=== PATIENT | male | born 1965 | race Hispanic/Latino ===

== ENCOUNTER 2019-05-02 20:40 | Observation (INO) | payer SELFPAY ==
[2019-05-02 21:24] LABS: Absolute Lymphocytes (CBC) 1.3 K/uL (0.7-4.9); Basophils % 0.9 % (0-1.3); Hematocrit 35.5 % (39.6-49.0); Lymphocytes % 16.4 % (15.3-44.8); MPV 8.7 fL (7.6-11.3); RBC Red Blood Cell Count 4.08 M/uL (4.33-5.43)
[2019-05-02 21:30] LABS: Protime INR 0.97
[2019-05-02 21:46] LABS: ALT/SGPT 22 U/L (12-78); AST/SGOT 13 U/L (15-37); Albumin 3.1 g/dL (3.4-5.0); Alkaline Phosphatase 101 U/L (45-117); BUN Blood Urea Nitrogen 24 mg/dL (7-18); Bicarbonate 27 mmol/L (21-32); Bilirubin Direct < 0.1 mg/dL (0-0.2); Bilirubin Total 0.2 mg/dL (0.2-1.0); Glucose Level 315 mg/dL (74-106); Magnesium 2.2 mg/dL (1.8-2.4); NT PRO-BNP 369 pg/mL (<125); Protein, Total 7.1 g/dL (6.4-8.2); Sodium Level 141 mmol/L (136-145); Troponin (Emerg Dept Use Only) < 0.02 ng/mL (0.0-0.045)
[2019-05-02] MEDS ORDERED: HYDRALAZINE HCL 20 MG/ML VIAL ONE (23:25)
[2019-05-03] MEDS ORDERED: HYDRALAZINE HCL 20 MG/ML VIAL ONE (00:14)
[2019-05-03 02:05] LABS: Troponin (Emerg Dept Use Only) < 0.02 ng/mL (0.0-0.045)
[2019-05-03] MEDS ORDERED: ACETAMINOPHEN 500 MG TAB PO PRN (03:38)
[2019-05-03] MEDS ORDERED: ALPRAZOLAM 0.25 MG TABLET PO PRN (03:38)
[2019-05-03] MEDS ORDERED: MORPHINE 4 MG/ML SYR IV PRN (03:38)
[2019-05-03 04:16] VITALS: BMI 43.0
[2019-05-03 04:47] LABS: HDL Cholesterol 65 mg/dL (40-60); LDL Cholesterol, Calculated 53 (<130)
[2019-05-03] MEDS: METOPROLOL TAR 50 MG TAB PO SCH ×2 (04:54→21:00)
[2019-05-03] MEDS ORDERED: METOPROLOL TAR 25 MG TAB ONE ×2 (04:56→21:25)
--- NOTE | 2019-05-03 05:45 | EDPHYS ---
Physician Documentation [facility] Name: Wild Koenig Age: 54 yrs Sex: Male : 1965 Arrival Date: 05/02/2019 Time: 20:48 Bed 19 Private MD: ED Physician Gautam Mukherjee HPI: 05/03 03:20 This 54 yrs old Male presents to ER via EMS with complaints of High Blood tw4 Pressure. 03:33 The patient has elevated blood pressure and discovered this at home, with a home tw4 device. Onset: The symptoms/episode began/occurred yesterday. Associated signs and symptoms: Pertinent positives: chest pain, dizziness, LOWER EXTREMITY SWELLING. The patient has not experienced similar symptoms in the past. Historical: - Allergies: 05/02 20:53 No Known Allergies; wh - Home Meds: 20:53 Glipizide Oral [Active]; gabapentin Oral [Active]; Hydroxyzine Oral [Active]; wh lisinopril Oral [Active]; Metformin Oral [Active]; Aspirin Oral [Active]; Hydrocodone-Acetaminophen Oral [Active]; - PMHx: 20:53 chronic back pain; Depression; Diabetes - NIDDM; Hypertension; Anxiety; wh - PSHx: 20:53 None; wh - Immunization history:: Adult Immunizations not up to date. - Coronavirus screen:: The patient has NOT traveled to [place], [place], or [place] in the past 14 days. - Social history:: Smoking status: Patient/guardian denies using. - Ebola Screening: : Patient negative for fever greater than or equal to 101.5 degrees Fahrenheit, and additional compatible Ebola Virus Disease symptoms Patient denies exposure to infectious person. ROS: 05/03 03:33 Constitutional: Negative for fever, chills, and weight loss, Respiratory: Negative for tw4 shortness of breath, cough, wheezing, and pleuritic chest pain, Abdomen/GI: Negative for abdominal pain, nausea, vomiting, diarrhea, and constipation, Back: Negative for injury and pain. Skin: Negative for injury, rash, and discoloration, Neuro: Negative for headache, weakness, numbness, tingling, and seizure. Cardiovascular: Positive for chest pain, Negative for edema, orthopnea, palpitations, paroxysmal nocturnal dyspnea. MS/extremity: Positive for swelling, Negative for abrasion, bite, contusion, decreased range of motion, deformity, ecchymosis, erythema, laceration, pain, paresthesias, puncture, rash. Exam: 03:33 Constitutional: This is a well developed, well nourished patient who is awake, alert, tw4 and in no acute distress. Head/Face: Normocephalic, atraumatic. Chest/axilla: Normal chest wall appearance and motion. Nontender with no deformity. No lesions are appreciated. Cardiovascular: Regular rate and rhythm with a normal S1 and S2. No gallops, murmurs, or rubs. Normal PMI, no JVD. No pulse deficits. Respiratory: Lungs have equal breath sounds bilaterally, clear to auscultation and percussion. No rales, rhonchi or wheezes noted. No increased work of breathing, no retractions or nasal flaring. Abdomen/GI: Soft, non-tender, with normal bowel sounds. No distension or tympany. No guarding or rebound. No evidence of tenderness throughout. Back: No spinal tenderness. No costovertebral tenderness. Full range of motion. Neuro: Awake and alert, GCS 15, oriented to person, place, time, and situation. Cranial nerves II-XII grossly intact. Motor strength 5/5 in all extremities. Sensory grossly intact. Cerebellar exam normal. Normal gait. Psych: Awake, alert, with orientation to person, place and time. Behavior, mood, and affect are within normal limits. 03:33 Musculoskeletal/extremity: Extremities: noted in the lateral aspect of left calf, left lateral ankle and lateral aspect of left foot: swelling, noted in the lateral aspect of right calf, right ankle and lateral aspect of right foot: swelling. Vital Signs: 05/02 20:54 BP 176 / 69; Pulse 80; Resp 18; Temp 98; Pulse Ox 97% ; Weight 136.08 kg; Height 5 ft. wh 10 in. (177.80 cm); 22:45 BP 188 / 87; Pulse 75; Resp 18; Pulse Ox 99% on R/A; wh 23:53 BP 191 / 77; Pulse 77; Resp 18; Pulse Ox 98% on R/A; wh 05/03 00:23 BP 165 / 80; wh 01:31 BP 129 / 52; Pulse 96; Resp 18; Pulse Ox 98% on R/A; wh 03:00 BP 174 / 64; Pulse 93; Resp 16; Temp 97.8; Pulse Ox 100% on R/A; 05/02 20:54 Body Mass Index 43.05 (136.08 kg, 177.80 cm) MDM: 02:05 Patient medically screened. tw4 03:35 Differential diagnosis: hypertensive crisis, Malignant HTN. Data reviewed: vital signs, tw4 nurses notes. Data reviewed: lab test result(s), cardiac enzymes, CBC, electrolytes, EKG, radiologic studies, plain films. Data interpreted: Pulse oximetry: Interpretation: normal. Test interpretation: by ED physician or midlevel provider: ECG, plain radiologic studies. Counseling: I had a detailed discussion with the patient and/or guardian regarding: the historical points, exam findings, and any diagnostic results supporting the discharge/admit diagnosis, lab results, radiology results. Physician consultation: Mis Gunderson MD regarding admission, to the telemetry unit. patient's condition, and will see patient in inpatient room. 05/02 20:54 Order name: Basic Metabolic Panel; Complete Time: 22:29 05/03 02:41 Interpretation: Normal except: CL 110; CRE 1.75; GFR 41; BUN 24; GLUC 315; CA 8.3. 05/02 20:54 Order name: CBC with Diff; Complete Time: 22:29 05/02 22:29 Interpretation: Normal except: RBC 4.08; HGB 11.6; HCT 35.5. 05/02 20:54 Order name: LFT's; Complete Time: 22:29 05/02 22:29 Interpretation: Normal except: AST 13; ALB 3.1; GLOB 4.0; A/G 0.8. 05/02 20:54 Order name: Magnesium; Complete Time: 22:29 05/02 22:29 Interpretation: Within normal limits: MG 2.2. 05/02 20:54 Order name: NT PRO-BNP; Complete Time: 22:29 05/02 22:29 Interpretation: Normal except: NT PRO-BNP 369. 05/02 20:54 Order name: PT-INR; Complete Time: 22:29 05/02 22:31 Interpretation: Within normal limits: PT 11.5. 05/02 20:54 Order name: Troponin (emerg Dept Use Only); Complete Time: 22:29 tw4 05/03 00:59 Order name: Troponin (emerg Dept Use Only) tw4 05/03 05:35 Order name: Lipid Profile EDAK 05/03 05:38 Order name: Basic Metabolic Panel EDAK 05/03 05:38 Order name: Basic Metabolic Panel EDAK 05/03 05:38 Order name: CBC with Automated Diff EDMS 05/03 05:38 Order name: CBC with Automated Diff EDMS 05/03 05:38 Order name: Lipid Profile EDAK 05/02 20:54 Order name: XRAY Chest (1 view) tw4 05/02 20:54 Order name: EKG; Complete Time: 20:55 05/02 20:54 Order name: Cardiac monitoring; Complete Time: 21:10 05/02 20:54 Order name: EKG - Nurse/Tech; Complete Time: 21:10 05/03 05:37 Order name: CONS Physician Consult EDAK 05/03 05:38 Order name: Heart Healthy EDAK 05/03 05:38 Order name: Echo with Doppler EDAK 05/03 05:38 Order name: Lipid Profile EDAK 05/03 05:38 Order name: Troponin I EDAK 05/03 05:38 Order name: Troponin I EDAK 05/03 05:38 Order name: Troponin I EDAK 05/03 13:41 Order name: NM EDAK 05/03 21:25 Order name: Glucose, Ancillary Testing EDAK 05/03 21:34 Order name: Basic Metabolic Panel EDAK 05/02 20:54 Order name: IV Saline Lock; Complete Time: 21:10 05/02 20:54 Order name: Labs collected and sent; Complete Time: 21:10 05/02 20:54 Order name: O2 Per Protocol; Complete Time: 21:10 05/02 20:54 Order name: O2 Sat Monitoring; Complete Time: 21:10 EC:22 Rate is 58 beats/min. Rhythm is regular. QRS [place] is Normal. [place] interval is normal. QRS tw4 interval is normal. QT interval is normal. No Q waves. No ST changes noted. Clinical impression: Normal ECG. Interpreted by me. Reviewed by me. Administered Medications: 05/02 23:24 Drug: hydrALAZINE 10 mg Route: IV; Rate: bolus; Site: right antecubital; 05/03 03:49 Follow up: Response: No adverse reaction; IV Status: Completed infusion 00:05 Drug: hydrALAZINE 10 mg Route: IV; Rate: calculated rate; Site: right antecubital; 03:49 Follow up: Response: No adverse reaction; Blood pressure is lowered; IV Status: Completed infusion Disposition: 05/03/19 02:05 Hospitalization ordered by Mis Gunderson for Inpatient Admission. Preliminary diagnosis are Angina pectoris, unspecified, Edema, unspecified. - Bed requested for [facility] ER HOLD. - Status is Inpatient Admission. - Condition is Stable. - Problem is new. - Symptoms are unchanged. UTI on Admission? No Signatures: Dispatcher [employer] [facility] Juana Colin RN RN dw Habalo, Winsy Gautam Mukherjee MD MD tw4 Corrections: (The following items were deleted from the chart) 02:32 05/02 22:29 CL 110; CRE 1.75; GFR 41; BUN 24; GLUC 315. tw4 tw4 05/03 03:55 03:35 Rate is 80 beats/min. Rhythm is regular. QRS [place]gins is Normal. [place] interval is tw4 normal. QRS interval is normal. QT interval is normal. No Q waves. T waves are Normal. No ST changes noted. Clinical impression: Normal ECG. Interpreted by me. Reviewed by me. tw4 03:58 02:05 Hospitalization Ordered by Mis Gunderson MD for Inpatient Admission. Preliminary diagnosis is Angina pectoris, unspecified; Edema, unspecified. Bed requested for Telemetry/MedSurg (Inpatient). Status is Inpatient Admission. Condition is Stable. Problem is new. Symptoms are unchanged. UTI on Admission? No. tw4 04:22 03:54 Rate is 100 beats/min. Rhythm is regular. QRS [place]gins is Normal. [place] interval is tw4 normal. QRS interval is normal. QT interval is normal. No Q waves. T waves are Normal. No ST changes noted. Clinical impression: NSR w/ Non-specific ST/T Changes. Interpreted by me. Reviewed by me. tw4 22:36 03:58 05/03/2019 02:05 Hospitalization Ordered by Mis Gunderson MD for Inpatient Admission. Preliminary diagnosis is Angina pectoris, unspecified; Edema, unspecified. Bed requested for [facility] ER HOLD. Status is Inpatient Admission. Condition is Stable. Problem is new. Symptoms are unchanged. UTI on Admission? No. dw
--- NOTE | 2019-05-03 05:45 | ER ---
Nurse's Notes [facility] Name: Wild Koenig Age: 54 yrs Sex: Male : 1965 Arrival Date: 05/02/2019 Time: 20:48 Bed 19 Private MD: Diagnosis: Angina pectoris, unspecified;Edema, unspecified Presentation: 05/02 20:49 Presenting complaint: EMS states: Pt C/O high blood pressure at home 160/90 and wh 166/105. Pt also C/O swelling on BLE for 10 days now, Pt states he is taking OTC Water pills but is not working. Pt also C/O fussiness on left eye and headache. Transition of care: patient was not received from another setting of care. Onset of symptoms was May 02, 2019. Risk Assessment: Do you want to hurt yourself or someone else? Patient reports no desire to harm self or others. Initial Sepsis Screen: Does the patient meet any 2 criteria? No. Patient's initial sepsis screen is negative. Does the patient have a suspected source of infection? No. Patient's initial sepsis screen is negative. Care prior to arrival: None. 20:49 Method Of Arrival: EMS: [facility] 20:49 Acuity: MYNOR 3 Historical: - Allergies: 20:53 No Known Allergies; - Home Meds: 20:53 Glipizide Oral [Active]; gabapentin Oral [Active]; Hydroxyzine Oral [Active]; wh lisinopril Oral [Active]; Metformin Oral [Active]; Aspirin Oral [Active]; Hydrocodone-Acetaminophen Oral [Active]; - PMHx: 20:53 chronic back pain; Depression; Diabetes - NIDDM; Hypertension; Anxiety; wh - PSHx: 20:53 None; - Immunization history:: Adult Immunizations not up to date. - Coronavirus screen:: The patient has NOT traveled to [place], [place], or [place] in the past 14 days. - Social history:: Smoking status: Patient/guardian denies using. - Ebola Screening: : Patient negative for fever greater than or equal to 101.5 degrees Fahrenheit, and additional compatible Ebola Virus Disease symptoms Patient denies exposure to infectious person. Screenin:54 Abuse screen: Denies threats or abuse. Denies injuries from another. Nutritional screening: No deficits noted. Tuberculosis screening: No symptoms or risk factors identified. Fall Risk None identified. Assessment: 21:24 General: Appears in no apparent distress. Behavior is calm, cooperative, appropriate wh for age. Pain: Denies pain. Neuro: Level of Consciousness is awake, alert, obeys commands, Oriented to person, place, time, situation, Appropriate for age. Cardiovascular: Heart tones S1 S2 Rhythm is regular. Cardiovascular: Edema is 2+ to left ankle and right ankle. Respiratory: Airway is patent Respiratory effort is even, unlabored, Respiratory pattern is regular, symmetrical. GI: Abdomen is flat, non-distended, Abd is soft and non tender X 4 quads. : No signs and/or symptoms were reported regarding the genitourinary system. EENT: No signs and/or symptoms were reported regarding the EENT system. Derm: Skin is intact, is healthy with good turgor, Skin is pink, warm \T\ dry. normal. Musculoskeletal: Circulation, motion, and sensation intact. 22:49 Reassessment: Patient appears in no apparent distress at this time. No changes from previously documented assessment. Patient and/or family updated on plan of care and expected duration. Pain level reassessed. Patient is alert, oriented x 3, equal unlabored respirations, skin warm/dry/pink. 23:53 Reassessment: Patient appears in no apparent distress at this time. No changes from previously documented assessment. Patient and/or family updated on plan of care and expected duration. Pain level reassessed. Patient is alert, oriented x 3, equal unlabored respirations, skin warm/dry/pink. 05/03 01:00 Reassessment: Patient appears in no apparent distress at this time. No changes from previously documented assessment. Patient and/or family updated on plan of care and expected duration. Pain level reassessed. Patient is alert, oriented x 3, equal unlabored respirations, skin warm/dry/pink. Pt C/O chest pain, EKG was done with NSR. Informed MD, 2nd set of Trops drawn. 02:30 Reassessment: Patient appears in no apparent distress at this time. No changes from previously documented assessment. Patient and/or family updated on plan of care and expected duration. Pain level reassessed. Patient is alert, oriented x 3, equal unlabored respirations, skin warm/dry/pink. 04:00 Reassessment: Patient appears in no apparent distress at this time. No changes from previously documented assessment. Patient and/or family updated on plan of care and expected duration. Pain level reassessed. Patient is alert, oriented x 3, equal unlabored respirations, skin warm/dry/pink. Vital Signs: 05/02 20:54 BP 176 / 69; Pulse 80; Resp 18; Temp 98; Pulse Ox 97% ; Weight 136.08 kg; Height 5 ft. 10 in. (177.80 cm); 22:45 BP 188 / 87; Pulse 75; Resp 18; Pulse Ox 99% on R/A; 23:53 BP 191 / 77; Pulse 77; Resp 18; Pulse Ox 98% on R/A; 05/03 00:23 BP 165 / 80; 01:31 BP 129 / 52; Pulse 96; Resp 18; Pulse Ox 98% on R/A; 03:00 BP 174 / 64; Pulse 93; Resp 16; Temp 97.8; Pulse Ox 100% on R/A; 05/02 20:54 Body Mass Index 43.05 (136.08 kg, 177.80 cm) ED Course: 05/02 20:48 Patient arrived in ED. 20:50 Griffin Gutierrez PA is PHCP. 8 20:50 Gautam Mukherjee MD is Attending Physician. [facility] 20:51 Triage completed. 20:54 Patient has correct armband on for positive identification. Bed in low position. Call light in reach. Side rails up X 1. 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 Pulse ox on. NIBP on. 20:55 Vidhi Brown is Primary Nurse. 20:55 Arm band placed on right wrist. 21:10 Inserted saline lock: 20 gauge in right antecubital area, using aseptic technique. Blood collected. 21:18 XRAY Chest (1 view) In Process Unspecified. EDMS 22:16 EKG done, by ED staff, reviewed by Gautam Mukherjee MD. ds4 05/03 02:04 Mis Gunderson MD is Hospitalizing Provider. tw4 04:00 No provider procedures requiring assistance completed. Patient admitted, IV remains in place. Administered Medications: 05/02 23:24 Drug: hydrALAZINE 10 mg Route: IV; Rate: bolus; Site: right antecubital; 05/03 03:49 Follow up: Response: No adverse reaction; IV Status: Completed infusion 00:05 Drug: hydrALAZINE 10 mg Route: IV; Rate: calculated rate; Site: right antecubital; 03:49 Follow up: Response: No adverse reaction; Blood pressure is lowered; IV Status: Completed infusion Outcome: 02:05 Decision to Hospitalize by Provider. tw4 04:00 Admitted to ER Hold. Please see [facility] for further documentation. 04:00 Condition: stable 04:00 Instructed on the need for admit. 22:36 Patient left the ED. Signatures: Dispatcher [employer] EDMS Griffin Gutierrez PA PA [id number] Michael Quarles ds4 Vidhi Brown Gautam Mukherjee MD MD tw4 Corrections: (The following items were deleted from the chart) 04:36 03:00 BP 174 / 64; Pulse 93bpm; Resp 16bpm; Pulse Ox 100%; Temp 97.8F; [facility]
--- NOTE | 2019-05-03 06:46 | EKG ---
Test Date: 2019-05-02 Test Time: 21:12:33 Toeing Stockings: SKYLER MEASUREMENT RESULTS: Intervals: Rate: 80 RI: 134 QRSD: 86 QT: 378 QTc: 435 [place]: P: 48 RI: 134 QRS: -29 T: 20 INTERPRETIVE STATEMENTS: Normal sinus rhythm Normal ECG Compared to ECG 12/11/1998 09:35:00 No significant changes Electronically Signed On 05-03-19 06:45:20 SHOP REPAIRER by Chan Aragon
[2019-05-03] MEDS ORDERED: INFLUENZA VACCINE (for 3y+) 0.5 ML DOSE IMVAC ONE ×2 (08:00→08:58)
[2019-05-03] MEDS ORDERED: PNEUMOCOCCAL VACCINE 0.5 ML IMVAC ONE ×2 (08:00→08:58)
[2019-05-03] MEDS ORDERED: REGADENOSON 0.4 MG/5 ML SYR IV ONE (08:17)
--- NOTE | 2019-05-03 08:21 | RAD REPORT ---
EXAM DESCRIPTION: Garrick Single View05/02/2019 9:18 pm CLINICAL HISTORY: cough COMPARISON: none FINDINGS: The lungs appear clear of acute infiltrate. The heart is borderline enlarged IMPRESSION: No acute abnormalities displayed
[2019-05-03] MEDS ORDERED: ASPIRIN EC 81 MG TAB PO ONE (08:58)
[2019-05-03] MEDS ORDERED: ENOXAPARIN 40 MG/0.4 ML SQ ONE (08:58)
[2019-05-03] MEDS ORDERED: ENOXAPARIN 40 MG/0.4 ML SQ SCH (09:00)
[2019-05-03] MEDS ORDERED: ASPIRIN EC 81 MG TAB PO SCH (09:00)
--- NOTE | 2019-05-03 11:17 | EKG ---
Test Date: 2019-05-03 Test Time: 00:38:44 Corrugator Operator Helper: SKYLER MEASUREMENT RESULTS: Intervals: Rate: 100 CT: 122 QRSD: 86 QT: 356 QTc: 459 [place]: P: 49 CT: 122 QRS: -42 T: 38 INTERPRETIVE STATEMENTS: Normal sinus rhythm Left axis deviation Nonspecific ST abnormality Abnormal ECG Compared to ECG 05/02/2019 21:12:33 Left-axis deviation now present ST (T wave) deviation now present Electronically Signed On 05-03-19 11:16:06 RESPITE WORKER by Efrain Louis
--- NOTE | 2019-05-03 13:29 | ECHO ---
HEIGHT: 5 ft 10 in WEIGHT: 300 lb 0 oz DATE OF STUDY: 05/03/[address]: Mis Gunderson MD 2-DIMENSIONAL: YES M.MODE: YES DOPPLER: YES COLOR FLOW: YES TDS: NO PORTABLE: NO DEFINITY: NO BUBBLE STUDY: NO DIAGNOSIS: CHEST PAIN CARDIAC HISTORY: CATHERIZATION: NO SURGERY: NO PROSTHETIC VALVE: NO PACEMAKER: NO MEASUREMENTS (cm) DIASTOLIC (NORMALS) SYSTOLIC (NORMALS) IVSd 1.4 (0.6-1.2) LA Diam 4.0 (1.9-4.0) LVEF 71% LVIDd 5.1 (3.5-5.7) LVIDs 3.0 (2.0-3.5) %FS 41% LVPWd 1.5 (0.6-1.2) Ao Diam 2.7 (2.0-3.7) 2 DIMENSIONAL ASSESSMENT: RIGHT ATRIUM: NORMAL LEFT ATRIUM: NORMAL RIGHT VENTRICLE: NORMAL LEFT VENTRICLE: LEFT VENTRICULAR HYPERTROPHY TRICUSPID VALVE: NORMAL MITRAL VALVE: NORMAL PULMONIC VALVE: NORMAL AORTIC VALVE: NORMAL PERICARDIAL EFFUSION: NONE AORTIC ROOT: NORMAL LEFT VENTRICULAR WALL MOTION: NORMAL DOPPLER/COLOR FLOW: NORMAL COMMENTS: LEFT VENTRICULAR HYPERTROPHY, CONCENTRIC. NORMAL LEFT VENTRICULAR EJECTION FRACTION. NO WALL MOTION ABNORMALITY. NO EFFUSION. TECHNOLOGIST: Sj SALINAS
--- NOTE | 2019-05-03 13:36 | RAD REPORT ---
EXAM DESCRIPTION: NM - Rest Stress Cardiac Imaging - 05/03/2019 1:21 pm CLINICAL HISTORY: Chest pain. COMPARISON: None. TECHNIQUE: The patient was administered approximately 10mCi of Tc 99m Sestamibi prior to resting SPE CT imaging of the heart. The patient was then administered approximately 30 mCi of Tc 99m Sestamibi f ollowing exercise or pharmacologic stress. Multiplanar SPECT images were reviewed. FINDINGS: There is uniformity of radiotracer uptake involving the entire left ventricular myocardiu m on rest and stress images. The left ventricular ejection fraction equals 51% IMPRESSION: Negative for a myocardial perfusion defect
--- NOTE | 2019-05-03 14:38 | CON ---
Admitted on 05/03/[address] Gunderson for chest pain. History Of Present Illness: Mr. Koenig is 54, has a history of anxiety, hypertension, diabetes, dep ression, morbid obesity, came in with left-sided chest pain, nonexertional, nonradiating. No nausea, vomiting, diaphoresis, PND, orthopnea, pedal edema, palpitation, or syncope. Pain was described as sharp, has been going on for about 2 days continuously. He has been under severe stress with elevate d blood pressure into the 170s and 200s according to him. Allergies: NONE. Review of Systems: Negative. Social History: Negative. Family History: Negative. Medications: At home include aspirin, metformin, glipizide, and lisinopril. Physical Examination: Vital Signs: His pressure was 170/72. He weighed 300 pounds. HEENT: Negative. Neck: Supple with no bruit. Chest: Clear. Cardiac: Revealed a regular rhythm and rate. No murmurs, gallops, or rubs. Abdomen: Obese, but benign. Extremities: Revealed no clubbing, cyanosis, or edema. Diagnostic Data: EKG was normal. BNP was 369. Creatinine was 1.75, glucose was 315. Impression And Plan: Atypical chest pain in a patient with multiple cardiac risk factors including h ypertension, diabetes. He has renal insufficiency as per blood pressure that is not controlled. I w ould increase his lisinopril dose. Consider adding a beta-iram. I think he needs to have an echo cardiogram and a stress test today. Both of those are pending. We will see what these show before m aking any final decisions. NICOLE/DARÍOL Voice ID: [id number] Report ID: [id number]
--- NOTE | 2019-05-03 16:41 | P.HP ---
Certification for Inpatient Patient admitted to: Observation With expected LOS: <2 Midnights Patient will require the following post-hospital care: None Practitioner: I am a practitioner with admitting privileges, knowledge of patient current condition, hospital course, and medical plan of care. Services: Services provided to patient in accordance with Admission requirements found in Title 42 Section 412.3 of the Code of Federal Regulations Patient History Date of Service: 05/03/19 Reason for admission: CHEST PAIN RULE OUT ACUTE CORONARY SYNDROME History of Present Illness: PATIENT IS A 54-YEAR-OLD GENTLEMAN WHO COMES TO THE HOSPITAL WITH CHEST PAIN AND LOWER EXTREMITY EDEMA. THIS HAS BEEN GOING ON FOR THE LAST FEW WEEKS. HE HAS SOME VARICOSE VEINS BUT HE WAS WORRIED THAT THE SWELLING WAS GETTING WORSE. ON EXAMINATION HE DOES NOT HAVE A LOT OF EDEMA BUT HE HAS BEEN LAYING UP IN THE EMERGENCY ROOM BED THROUGHOUT THE DAY. HE SAID IT DOES SWELL OUT MORE WHEN HE AMBULATES. HE HAS NOT HAD ANY CARDIAC WORKUP DONE IN QUITE A WHILE. HE GOES TO THE [facility] FOR MOST OF HIS CARE. HIS BLOOD PRESSURE HAS BEEN ELEVATED AND THE LOWER EXTREMITY EDEMA HAS ALSO BEEN BOTHERING HIM. HE DECIDED TO COME INTO THE EMERGENCY ROOM FOR FURTHER EVALUATION. Allergies No Known Allergies Allergy (Verified 05/03/19 04:58) Home Medications: Losartan Potassium [Cozaar] 25 mg PO DAILY #30 tablet 05/03/19 Metoprolol Tartrate [Lopressor*] 50 mg PO BID #60 tab 05/03/19 - Past Medical/Surgical History Has patient received pneumonia vaccine in the past: No Diabetic: Yes -: Chronic Back Pain -: Hypertension -: DM -: Depression Anxiety - Social History Smoking Status: Never smoker Place of Residence: Home Review of Systems 10-point ROS is otherwise unremarkable Physical Examination - Vital Signs Temperature: 98 F Blood Pressure: 174/63 Pulse: 88 Respirations: 19 Pulse Ox (%): 100 - Physical Exam General: Alert, In no apparent distress, Oriented x3 HEENT: Atraumatic, PERRLA, Mucous membr. moist/pink, EOMI, Sclerae nonicteric Neck: Supple, 2+ carotid pulse no bruit, No LAD, Without JVD or thyroid abnormality Respiratory: Clear to auscultation bilaterally, Normal air movement Cardiovascular: Regular rate/rhythm, Normal S1 S2, No murmurs Gastrointestinal: Normal bowel sounds, Soft and benign, Non-distended, No tenderness Musculoskeletal: No clubbing, No swelling, No tenderness Integumentary: No rashes Neurological: Normal gait, Normal speech, Normal strength at 5/5 x4 extr, Normal tone, Sensation intact, Cranial nerves 3-12 intact, Normal affect Lymphatics: No axilla or inguinal lymphadenopathy - Studies Laboratory Data (last 24 hrs) 05/03/19 03:38: Triglycerides Cancelled, Cholesterol Cancelled, HDL Cholesterol Cancelled, Cholesterol/HDL Ratio Cancelled 05/03/19 01:12: Triglycerides 142, Cholesterol 146, HDL Cholesterol 65 H, Cholesterol/HDL Ratio 2.25 05/02/19 21:10: PT 11.5, INR 0.97 05/02/19 21:10: WBC 7.7, Hgb 11.6 L, Hct 35.5 L, Plt Count 251 05/02/19 21:10: Sodium 141, Potassium 5.0, BUN 24 H, Creatinine 1.75 H, Glucose 315 H, Magnesium 2.2, Total Bilirubin 0.2, AST 13 L, ALT 22, Alkaline Phosphatase 101 Assessment & Plan - Problems (Diagnosis) (1) Chest pain, rule out acute myocardial infarction Current Visit: Yes Status: Acute (2) Hypertension, malignant Current Visit: Yes Status: Acute (3) Hypoalbuminemia Current Visit: Yes Status: Acute (4) Chronic kidney disease Current Visit: Yes Status: Acute - Plan 1. SERIAL TROPONINS AND EKG 2. CARDIOLOGY CONSULTATION 3. ECHOCARDIOGRAM AND INPATIENT STRESS TEST(PENDING CARDIOLOGY EVALUATION) 4. ANTI-PLATELET THERAPY, ANTI COAGULATION, BETA-NICOLASA, STATIN, AND O2 NEEDED 5. IV MORPHINE FOR PAIN 6. OUTPATIENT NEPHROLOGY CONSULTATION Discharge Plan: Home Plan to discharge in: 24 Hours - Advance Directives Does patient have a Living Will: No Does patient have a Durable POA for Healthcare: No - Code Status/Comfort Care Code Status Assessed: Yes Code Status: Full Code Critical Care: No Time Spent Managing PTS Care (In Minutes): 45
[2019-05-03] MEDS ORDERED: GLUCAGON 1 MG/VIAL IM PRN ×2 (18:09)
[2019-05-03] MEDS ORDERED: D50W 25 GM/50 ML SYRINGE/VIAL IV PRN ×2 (18:09)
--- NOTE | 2019-05-03 18:09 | P.PN ---
Date of Service: 05/03/19 Patient seen and examined. He has bilateral lower extremities edema. Echocardiogram result reviewed and reports normal EF. No valvular abnormalities. Nuclear stress test: Negative for ischemia. I suspect patient lower extremity edema is related to obstructive sleep apnea. He reports snoring loudly in bed, and daytime dosing. He will need sleep study as an outpatient. Start oral Lasix. Noted elevated serum creatinine. Monitor BMP on the lasix. Increase Lantus insulin to 25 units b.i.d. Hold metformin given increase in serum creatinine. Possible discharge in a.m.
[2019-05-03] MEDS ORDERED: INSULIN -REGULAR HUMAN 50 UNIT/0.5 ML ML SQ SCH (21:00)
[2019-05-03] MEDS ORDERED: INSULIN GLARGINE 100 UNITS/ML SQ SCH (21:00)
[2019-05-03 21:15] VITALS: BP 162/85; TEMP 98.2
[2019-05-03 21:28] LABS: Potassium 5.2 mmol/L (3.5-5.1)
[2019-05-03 23:37] VITALS: O2SAT 100
[2019-05-04] MEDS ORDERED: FUROSEMIDE 40 MG TABLET PO SCH (09:00)
[2019-05-04] MEDS ORDERED: AMLODIPINE 5 MG TAB PO SCH (09:00)
--- NOTE | 2019-05-04 13:10 | P.DS ---
Discharge Date: 05/03/19 Disposition: ROUTINE DISCHARGE Discharge Condition: GOOD Reason for Admission: CHEST PAIN RULE OUT ACUTE CORONARY SYNDROME - Problems (1) Chest pain, rule out acute myocardial infarction Status: Acute (2) Hypertension, malignant Status: Acute (3) Hypoalbuminemia Status: Acute (4) Chronic kidney disease Status: Acute Brief History of Present Illness: PATIENT IS A 54-YEAR-OLD GENTLEMAN WHO COMES TO THE HOSPITAL WITH CHEST PAIN AND LOWER EXTREMITY EDEMA. THIS HAS BEEN GOING ON FOR THE LAST FEW WEEKS. HE HAS SOME VARICOSE VEINS BUT HE WAS WORRIED THAT THE SWELLING WAS GETTING WORSE. ON EXAMINATION HE DOES NOT HAVE A LOT OF EDEMA BUT HE HAS BEEN LAYING UP IN THE EMERGENCY ROOM BED THROUGHOUT THE DAY. HE SAID IT DOES SWELL OUT MORE WHEN HE AMBULATES. HE HAS NOT HAD ANY CARDIAC WORKUP DONE IN QUITE A WHILE. HE GOES TO THE [facility] FOR MOST OF HIS CARE. HIS BLOOD PRESSURE HAS BEEN ELEVATED AND THE LOWER EXTREMITY EDEMA HAS ALSO BEEN BOTHERING HIM. HE DECIDED TO COME INTO THE EMERGENCY ROOM FOR FURTHER EVALUATION. Hospital Course: PATIENT'S STRESS TEST WAS NEGATIVE. PATIENT'S RENAL FUNCTION IS STABLE. HIS POTASSIUM WAS SLIGHTLY ELEVATED AND WE THUS ASKED HIM TO AVOID FOODS WITH POTASSIUM AND HOLD OFF ON HIS LOSARTAN. HE WILL FOLLOW UP WITH HIS PCP AND NEPHROLOGY IN 1-2 WEEKS AND REPEAT LABS IN 1 WEEK. RETURN TO THE ER FOR SYMPTOMS WORSEN. I GAVE HIM MY INFORMATION TO CONTACT ME IF HE HAS ANY QUESTIONS. Vital Signs/Physical Exam: Temp Pulse Resp BP Pulse Ox 98.2 F 71 18 162/85 H 98 05/03/19 20:00 05/03/19 21:00 05/03/19 20:00 05/03/19 21:00 05/03/19 20:00 General: Alert, In no apparent distress, Oriented x3 Laboratory Data at Discharge: WBC 7.7 K/uL (4.3-10.9) 05/02/19 21:10 Hgb 11.6 g/dL (13.6-17.9) L 05/02/19 21:10 Hct 35.5 % (39.6-49.0) L 05/02/19 21:10 Plt Count 251 K/uL (152-406) 05/02/19 21:10 PT 11.5 SECONDS (9.5-12.5) 05/02/19 21:10 INR 0.97 05/02/19 21:10 Sodium 140 mmol/L (136-145) 05/03/19 21:08 Potassium 5.2 mmol/L (3.5-5.1) H 05/03/19 21:08 BUN 28 mg/dL (7-18) H 05/03/19 21:08 Creatinine 1.76 mg/dL (0.55-1.3) H 05/03/19 21:08 Glucose 293 mg/dL (74-106) H 05/03/19 21:08 Magnesium 2.2 mg/dL (1.8-2.4) 05/02/19 21:10 Total Bilirubin 0.2 mg/dL (0.2-1.0) 05/02/19 21:10 AST 13 U/L (15-37) L 05/02/19 21:10 ALT 22 U/L (12-78) 05/02/19 21:10 Alkaline Phosphatase 101 U/L (45-117) 05/02/19 21:10 Troponin I < 0.02 ng/mL (0.0-0.045) 05/03/19 12:00 Triglycerides Cancelled 05/03/19 03:38 Cholesterol Cancelled 05/03/19 03:38 HDL Cholesterol Cancelled 05/03/19 03:38 Cholesterol/HDL Ratio Cancelled 05/03/19 03:38 Home Medications: Metoprolol Tartrate [Lopressor*] 50 mg PO BID #60 tab 05/03/19 New Medications: Metoprolol Tartrate [Lopressor*] 50 mg PO BID #60 tab Patient Discharge Instructions: OK TO DC IV AND DC HOME. FOLLOW-UP WITH PRIMARY CARE PROVIDER IN 1-2 WEEKS. FOLLOW-UP WITH CARDIOLOGY IN 1-2 WEEKS. FOLLOW-UP WITH NEPHROLOGY IN 1-2 WEEKS. RETURN TO THE ER IF symptoms worsen. CALL DR. DALY AT [phone] IF ANY QUESTIONS REGARDING HOSPITAL STAY. PLEASE CALL THE FLOOR AT [phone] IF ANY MEDICATION OR NURSING QUESTIONS. PLEASE RECHECK LABS IN 1 WEEK Diet: AHA Activity: Fall precautions Time spent managing pt's care (in minutes): 25
--- NOTE | 2019-05-04 13:54 | TREADPHA ---
DX: CHEST PAIN Date of Study: 05/03/2019 Ht: 5 10 Wt: 300 lb 0 oz Consulting Physician: CHRISTY MEDICATIONS: METFORMIN, TYLENOL, XANAX, ASPIRIN, LOVENOX, LOPRESSOR, LEVIMIR HISTORY: 54 YEAR OLD MALE WITH HISTORY OF HYPERTENSION, DIABETES. REPORTS EPISODE OF CHEST PAIN AT TIME OF TESTING. PHYSICIAL EXAMINATION: RESTING B.P.: 160/83 RESTING H.R.: 62 RESTING EKG: NORMAL PROTOCOL: LEXISCAN EXERCISE TIME: 3:30 B.P. AT PEAK STRESS: 172/85 IMPRESSION: LEXISCAN STRESS TEST PERFORMED. CARDIOLITE INJECTED PER PROTOCOL. NO SUPRAVENTRICULAR TACHYCARDIA, VENTRICULAR TACHYCARDIA OR ARRYTHMIAS NOTED. PATIENT DENIED CHEST PAIN. TOLERATED WELL. PLEASE SEE NUCLEAR MEDICINE REPORT.
== END 2019-05-03 22:29 | disposition home or self-care (01) ==
LOC: ER 20:40 → ERHOLD 05-03 04:04
PROVIDERS: ADMIT Hospitalist; ATTEND Hospitalist
DX: R07.9 Chest pain, unspecified (principal); E88.09 Other disorders of plasma-protein metabolism, not elsewhere classified; I12.9 Hypertensive chronic kidney disease with stage 1 through stage 4 chronic kidney disease, or unspecified chronic kidney disease; E11.22 Type 2 diabetes mellitus with diabetic chronic kidney disease; N18.9 Chronic kidney disease, unspecified; Z23 Encounter for immunization
CPT/HCPCS: 36415; 71045; 78452; 80048; 80061; 80076; 82947; 83735; 83880; 84484; 85025; 85610; 90471; 90670; 93005; 93017; 93306; 96365; 96366; 99285; A9500; G0378; J0360; J1650; J1815; J2785; Q2035

== ENCOUNTER 2019-11-15 02:19 | Inpatient (IN) | payer OTHER, SELFPAY ==
[2019-11-15 04:17] LABS: Absolute Lymphocytes (CBC) 1.1 K/uL (0.7-4.9); Basophils % 0.8 % (0-1.3); Hematocrit 25.7 % (39.6-49.0); Lymphocytes % 12.5 % (15.3-44.8); MPV 8.1 fL (7.6-11.3); Protime INR 1.1
[2019-11-15 04:33] LABS: ALT/SGPT 20 U/L (12-78); AST/SGOT 10 U/L (15-37); Albumin 2.9 g/dL (3.4-5.0); Alkaline Phosphatase 114 U/L (45-117); BUN Blood Urea Nitrogen 44 mg/dL (7-18); Bicarbonate 25 mmol/L (21-32); Bilirubin Direct < 0.1 mg/dL (0-0.2); Bilirubin Total 0.3 mg/dL (0.2-1.0); Glucose Level 181 mg/dL (74-106); Magnesium 2.4 mg/dL (1.8-2.4); NT PRO-BNP 1987 pg/mL (<125); Potassium 5.4 mmol/L (3.5-5.1); Protein, Total 7.3 g/dL (6.4-8.2); Sodium Level 145 mmol/L (136-145); Troponin (Emerg Dept Use Only) < 0.02 ng/mL (0.0-0.045)
--- NOTE | 2019-11-15 05:39 | EDPHYS ---
Physician Documentation [facility] Name: Wild Koenig Age: 54 yrs Sex: Male : 1965 Arrival Date: 11/15/2019 Time: 02:21 Bed 6 Private MD: ED Physician Gautam Mukherjee HPI: 11/14 03:40 This 54 yrs old Male presents to ER via EMS with complaints of Testicular tw4 Swelling, Groin Pain. 03:40 The patient presents with scrotal pain, of both sides, swelling, that is moderate, of tw4 the left testicle and right testicle, tenderness, that is moderate, of the left testicle and right testicle. Onset: The symptoms/episode began/occurred 1 week(s) ago. Modifying factors: The symptoms are alleviated by remaining still, the symptoms are aggravated by movement. Associated signs and symptoms: The patient has no apparent associated signs or symptoms. The patient has not experienced similar symptoms in the past. Historical: - Allergies: 02:32 No Known Allergies; bb - Home Meds: 02:32 lisinopril Oral [Active]; Glipizide Oral [Active]; Hydroxyzine Oral [Active]; bb gabapentin Oral [Active]; Metformin Oral [Active]; Insulin: Regular Sub-Q [Active]; Wellbutrin Oral [Active]; - PMHx: 02:32 Anxiety; chronic back pain; Depression; Hypertension; Diabetes - IDDM; bb - PSHx: 02:32 left eye surgery; bb - Immunization history:: Adult Immunizations up to date. - Social history:: Smoking status: Patient denies any tobacco usage or history of. ROS: 03:40 Constitutional: Negative for fever, chills, and weight loss, Eyes: Negative for injury, tw4 pain, redness, and discharge, Cardiovascular: Negative for chest pain, palpitations, and edema, Respiratory: Negative for shortness of breath, cough, wheezing, and pleuritic chest pain, Abdomen/GI: Negative for abdominal pain, nausea, vomiting, diarrhea, and constipation, Back: Negative for injury and pain, MS/Extremity: Negative for injury and deformity, Skin: Negative for injury, rash, and discoloration. 03:40 : Positive for testicular pain Exam: 03:40 Constitutional: This is a well developed, well nourished patient who is awake, alert, tw4 and in no acute distress. Head/Face: Normocephalic, atraumatic. Chest/axilla: Normal chest wall appearance and motion. Nontender with no deformity. No lesions are appreciated. Cardiovascular: Regular rate and rhythm with a normal S1 and S2. No gallops, murmurs, or rubs. Normal PMI, no JVD. No pulse deficits. Respiratory: Lungs have equal breath sounds bilaterally, clear to auscultation and percussion. No rales, rhonchi or wheezes noted. No increased work of breathing, no retractions or nasal flaring. Abdomen/GI: Soft, non-tender, with normal bowel sounds. No distension or tympany. No guarding or rebound. No evidence of tenderness throughout. Back: No spinal tenderness. No costovertebral tenderness. Full range of motion. MS/ Extremity: Pulses equal, no cyanosis. Neurovascular intact. Full, normal range of motion. Neuro: Awake and alert, GCS 15, oriented to person, place, time, and situation. Cranial nerves II-XII grossly intact. Motor strength 5/5 in all extremities. Sensory grossly intact. Cerebellar exam normal. Normal gait. 03:40 : Male external genitalia: Vital Signs: 02:27 BP 124 / 108; Pulse 83; Resp 16 S; Temp 97.8(O); Pulse Ox 96% on R/A; Weight 145.15 kg; bb Height 5 ft. 10 in. (177.80 cm); Pain 5/10; 06:19 BP 192 / 85; Pulse 80; Resp 18; Pulse Ox 98% on R/A; ea 02:27 Body Mass Index 45.91 (145.15 kg, 177.80 cm) bb MDM: 02:25 Patient medically screened. tw4 05:39 Differential diagnosis: nonspecific abdominal pain, appendicitis, UTI. Data reviewed: tw4 vital signs, nurses notes. Data reviewed: lab test result(s), cardiac enzymes, CBC, electrolytes, hepatic panel, radiologic studies, plain films. Data interpreted: Pulse oximetry: Interpretation: normal. Counseling: I had a detailed discussion with the patient and/or guardian regarding: the historical points, exam findings, and any diagnostic results supporting the discharge/admit diagnosis, lab results, radiology results. Physician consultation: Quan Prezas DO regarding admission, to the telemetry unit. patient's condition, and will see patient in inpatient room. Special discussion: I discussed with the patient/guardian in detail that at this point there is no indication for admission to the hospital. It is understood, however, that if the symptoms persist or worsen the patient needs to return immediately for re-evaluation. 11/14 02:27 Order name: Basic Metabolic Panel; Complete Time: 04:44 tw4 11/14 04:44 Interpretation: Normal except: K 5.4; CL 115; GLUC 181; BUN 44; CRE 2.91; GFR 23. tw11/14 02:27 Order name: CBC with Diff; Complete Time: 04:44 tw4 11/14 04:44 Interpretation: Normal except: RBC 2.90; HGB 8.6; HCT 25.7; LYM% 12.5; EOSINOPHIL % 6.0.11/14 02:27 Order name: LFT's; Complete Time: 04:44 tw4 11/14 04:45 Interpretation: Normal except: AST 10; ALB 2.9; GLOB 4.4; A/G 0.7. tw11/14 02:27 Order name: Magnesium; Complete Time: 04:44 tw4 11/14 04:45 Interpretation: Within normal limits: MG 2.4. 11/14 02:27 Order name: NT PRO-BNP; Complete Time: 04:44 11/14 04:45 Interpretation: Abnormal: NT PRO-BNP 1987. 11/14 02:27 Order name: PT-INR; Complete Time: 04:44 11/14 04:45 Interpretation: Abnormal: PT 12.9. 11/14 02:27 Order name: Troponin (emerg Dept Use Only); Complete Time: 04:44 4 11/14 04:45 Interpretation: Within normal limits: TROPED < 0.02. 11/14 04:28 Order name: CREATININE WHOLE BLOOD; Complete Time: 04:44 EDIN 11/14 04:45 Interpretation: Abnormal: CREATININE WB 3.1. 11/14 08:20 Order name: Glucose, Ancillary Testing EDIN 11/14 09:57 Order name: Creatine Phosphokinase EDIN 11/14 09:57 Order name: CKMB Creatine Kinase MB EDIN 11/14 09:57 Order name: Troponin I EDIN 11/14 09:57 Order name: T4 Free EDIN 11/14 09:57 Order name: Thyroid Stimulating Hormone EDIN 11/14 02:27 Order name: XRAY Chest (1 view) tw 11/14 02:27 Order name: Cardiac monitoring; Complete Time: 02:42 tw4 11/14 02:27 Order name: IV Saline Lock; Complete Time: 04:12 tw4 11/14 02:27 Order name: Labs collected and sent; Complete Time: 04:12 tw4 11/14 02:27 Order name: O2 Per Protocol; Complete Time: 02:42 tw4 11/14 02:27 Order name: O2 Sat Monitoring; Complete Time: 02:42 tw4 11/14 04:19 Order name: Abdomen EDIN 11/14 09:01 Order name: US [facility] 11/14 09:57 Order name: Transferrin Sat/Iron Binding EDIN 11/14 09:57 Order name: Ferritin EDIN 11/14 09:57 Order name: Vitamin B12 Level EDIN 11/14 12:22 Order name: Glucose, Ancillary Testing EDMS Administered Medications: No medications were administered Disposition: 11/15/19 05:38 Hospitalization ordered by Quan Canela for Inpatient Admission. Preliminary diagnosis are Unspecified combined systolic (congestive) and diastolic (congestive) heart failure, Edema, not elsewhere classified, Edema, unspecified. - Bed requested for Telemetry/MedSurg (Inpatient). - Status is Inpatient Admission. iw - Condition is Stable. - Problem is new. - Symptoms are unchanged. Signatures: Dispatcher [facility] Colin RN RN Elisabeth Suero RN RN bb Williams, Irene, RN RN iw Sharona Aguayo RN RN tl1 Gautam Mukherjee MD MD tw4 Corrections: (The following items were deleted from the chart) 04:19 02:32 Abdomen Pelvis W Con+CT.RAD.BRZ ordered. [facility] EDIN 06:49 05:38 Hospitalization Ordered by Quan Canela DO for Inpatient Admission. Preliminary tl1 diagnosis is Unspecified combined systolic (congestive) and diastolic (congestive) heart failure; Edema, not elsewhere classified; Edema, unspecified. Bed requested for Telemetry/MedSurg (Inpatient). Status is Inpatient Admission. Condition is Stable. Problem is new. Symptoms are unchanged. tw4 10:50 06:49 11/15/2019 05:38 Hospitalization Ordered by Quan Canela DO for Inpatient dw Admission. Preliminary diagnosis is Unspecified combined systolic (congestive) and diastolic (congestive) heart failure; Edema, not elsewhere classified; Edema, unspecified. Bed requested for [facility] ER HOLD. Status is Inpatient Admission. Condition is Stable. Problem is new. Symptoms are unchanged. tl1 13:20 10:50 11/15/2019 05:38 Hospitalization Ordered by Quan Canela DO for Inpatient iw Admission. Preliminary diagnosis is Unspecified combined systolic (congestive) and diastolic (congestive) heart failure; Edema, not elsewhere classified; Edema, unspecified. Bed requested for Telemetry/MedSurg (Inpatient). Status is Inpatient Admission. Condition is Stable. Problem is new. Symptoms are unchanged. dw
--- NOTE | 2019-11-15 05:39 | ER ---
Nurse's Notes [facility] [place] [place] [facility] Name: Wild Koenig Age: 54 yrs Sex: Male : 1965 Arrival Date: 11/15/2019 Time: 02:21 Bed 6 Private MD: Diagnosis: Unspecified combined systolic (congestive) and diastolic (congestive) heart failure;Edema, not elsewhere classified;Edema, unspecified Presentation: 11/14 02:27 Chief complaint: EMS states: they were toned out for report of pt with scrotal swelling bb x 1 week and elevated blood pressure pt has not had his BP meds x 10 days but received them in the mail today. Coronavirus screen: At this time, the client does not indicate any symptoms associated with coronavirus-19. Ebola Screen: No symptoms or risks identified at this time. Initial Sepsis Screen: Does the patient meet any 2 criteria? No. Patient's initial sepsis screen is negative. Does the patient have a suspected source of infection? No. Patient's initial sepsis screen is negative. Risk Assessment: Do you want to hurt yourself or someone else? Patient reports no desire to harm self or others. Onset of symptoms was November 08, 2019. 02:27 Method Of Arrival: EMS: [facility] bb 02:27 Acuity: MYNOR 3 bb 02:29 Ebola Screen: No symptoms or risks identified at this time. ea Triage Assessment: 02:32 General: Appears obese, Behavior is cooperative. Pain: Complains of pain in scrotum bb Pain currently is 5 out of 10 on a pain scale. Neuro: Level of Consciousness is awake, alert, obeys commands, Oriented to person, place, time, situation. Cardiovascular: Capillary refill < 3 seconds Patient's skin is warm and dry. Cardiovascular: Edema to bilateral lower extremities and scrotum. Respiratory: Respiratory effort is even, unlabored, Respiratory pattern is regular. : Swelling noted on scrotum. Musculoskeletal: Circulation, motion, and sensation intact. Historical: - Allergies: 02:32 No Known Allergies; bb - Home Meds: 02:32 lisinopril Oral [Active]; Glipizide Oral [Active]; Hydroxyzine Oral [Active]; bb gabapentin Oral [Active]; Metformin Oral [Active]; Insulin: Regular Sub-Q [Active]; Wellbutrin Oral [Active]; - PMHx: 02:32 Anxiety; chronic back pain; Depression; Hypertension; Diabetes - IDDM; bb - PSHx: 02:32 left eye surgery; bb - Immunization history:: Adult Immunizations up to date. - Social history:: Smoking status: Patient denies any tobacco usage or history of. Screenin:28 Abuse screen: Denies threats or abuse. Nutritional screening: No deficits noted. ea Tuberculosis screening: No symptoms or risk factors identified. Fall Risk None identified. Assessment: 03:00 General: Appears uncomfortable, Behavior is appropriate for age. Pain: Complains of ea pain in pelvis. Neuro: Level of Consciousness is awake, alert, obeys commands, Oriented to person, place, time, situation. Cardiovascular: Patient's skin is warm and dry. Respiratory: Airway is patent Respiratory effort is even, unlabored, Respiratory pattern is regular, symmetrical. Derm: Skin is pink, warm \T\ dry. 04:00 Reassessment: Patient and/or family updated on plan of care and expected duration. Pain ea level reassessed. Patient is alert, oriented x 3, equal unlabored respirations, skin warm/dry/pink. 05:30 Reassessment: Patient and/or family updated on plan of care and expected duration. Pain ea level reassessed. Patient is alert, oriented x 3, equal unlabored respirations, skin warm/dry/pink. Vital Signs: 02:27 BP 124 / 108; Pulse 83; Resp 16 S; Temp 97.8(O); Pulse Ox 96% on R/A; Weight 145.15 kg; bb Height 5 ft. 10 in. (177.80 cm); Pain 5/10; 06:19 BP 192 / 85; Pulse 80; Resp 18; Pulse Ox 98% on R/A; ea 02:27 Body Mass Index 45.91 (145.15 kg, 177.80 cm) bb ED Course: 02:21 Patient arrived in ED. sg 02:25 Gautam Mukherjee MD is Attending Physician. tw4 02:28 Ernestina Reed, MARISABEL is Primary Nurse. ea 02:29 Patient has correct armband on for positive identification. Bed in low position. Call ea light in reach. Side rails up X2. 02:29 Arm band placed on right wrist. Patient placed in an exam room, on a stretcher, on ea pulse oximetry. 02:30 Triage completed. bb 03:34 XRAY Chest (1 view) In Process Unspecified. EDMS 03:50 Missed attempt(s): 20 gauge in left wrist. 22 gauge in left wrist. Bleeding controlled, ds4 band aid applied, catheter tip intact. 04:00 Initial lab(s) drawn, by me, sent to lab. Inserted saline lock: 20 gauge in right bb antecubital area, using aseptic technique. Blood collected. 04:47 Abdomen In Process Unspecified. EDMS 05:37 Quan Canela DO is Hospitalizing Provider. tw4 Administered Medications: No medications were administered Outcome: 05:38 Decision to Hospitalize by Provider. tw4 13:20 Patient left the ED. iw Signatures: Dispatcher [employer] EDMS Josh Sheppard, RN RN sg Elisabeth Suero RN RN bb Ana Hubbard, RN Michael Hensley ds4 Ernestina Reed RN RN ea Wadley, Terrence, MD MD tw4 Corrections: (The following items were deleted from the chart) 04:51 04:50 Reassessment: Patient and/or family updated on plan of care and expected ea duration. Pain level reassessed. Patient is alert, oriented x 3, equal unlabored respirations, skin warm/dry/pink. ea
--- NOTE | 2019-11-15 07:46 | RAD REPORT ---
EXAM DESCRIPTION: Garrick Single View11/15/2019 3:34 am CLINICAL HISTORY: Hypertension COMPARISON: April 2019 FINDINGS: The lungs appear clear of acute infiltrate. The heart is moderately enlarged IMPRESSION: No acute abnormalities displayed
[2019-11-15] MEDS ORDERED: GLUCAGON 1 MG/VIAL IM PRN (07:47)
[2019-11-15] MEDS ORDERED: ACETAMINOPHEN 500 MG TAB PO PRN (07:47)
[2019-11-15] MEDS ORDERED: ONDANSETRON 4 MG/2 ML VIAL IV PRN (07:47)
[2019-11-15] MEDS ORDERED: D50W 25 GM/50 ML SYRINGE/VIAL IV PRN (07:47)
[2019-11-15] MEDS: INSULIN -REGULAR HUMAN 50 UNIT/0.5 ML ML SQ SCH ×4 (08:10→21:00)
[2019-11-15] MEDS ORDERED: HEPARIN 5000 UNIT/ML 1 ML VIAL ONE (08:46)
[2019-11-15] MEDS ORDERED: FUROSEMIDE 40 MG/4 ML VIAL ONE (08:46)
[2019-11-15] MEDS: HEPARIN 5000 UNIT/ML 1 ML VIAL SQ SCH ×2 (09:00→22:07)
[2019-11-15] MEDS: FUROSEMIDE 40 MG/4 ML VIAL IV SCH ×2 (09:00→17:26)
--- NOTE | 2019-11-15 09:01 | RAD REPORT ---
EXAM DESCRIPTION: US - Renal Ultrasound-Complete - 11/15/2019 8:47 am CLINICAL HISTORY: . Acute/chronic renal failure COMPARISON: November 15, 2019 cat scan FINDINGS: The right kidney measures 9 cm with a normal echotexture. The left kidney measures 12 cm with a normal echotexture. Hydronephrosis is not seen. No gross abnormality of bladder IMPRESSION: Unremarkable renal ultrasound.
--- NOTE | 2019-11-15 09:41 | P.HP ---
Certification for Inpatient Patient admitted to: Inpatient With expected LOS: >2 Midnights Patient will require the following post-hospital care: None Practitioner: I am a practitioner with admitting privileges, knowledge of patient current condition, hospital course, and medical plan of care. Services: Services provided to patient in accordance with Admission requirements found in Title 42 Section 412.3 of the Code of Federal Regulations Patient History Date of Service: 11/15/19 Primary Care Provider: [facility]; Cardiology-Dr. Louis Reason for admission: Edema to the lower extremities History of Present Illness: 54-year-old male with history of depression, diabetes mellitus type 2 insulin dependent and hypertension. Patient goes to the [facility]. Over the past several days patient has been without his medication. He recently got his medication for diabetes, hypertension. Over several days he has noted increasing edema to the lower extremities up to the waist and scrotal region. He denies significant shortness of breath. Edema had not improved and felt uncomfortable. He denies any nausea, vomiting, chest pain, constipation. Patient reports taking no diuretic therapy. Therefore he came to the ER for further evaluation. In the ER patient evaluated. Vital signs stable. White count 8.9, hemoglobin 8.6. Troponin unremarkable. Sodium 145, potassium 5.4. BUN of 44, creatinine 2.91 with a GFR of 23. Glucose 181. Chest x-ray shows enlargement of heart. No significant CHF noted. CT scan shows no renal hydronephrosis or stone. Patient given IV Lasix. Patient admitted for further evaluation. When I saw the patient ER, patient appeared comfortable. No significant distress noted. Patient reports taking medication for diabetes and hypertension. Medication includes glipizide, metformin, lisinopril and insulin therapy. He does not take any diuretic therapy. Allergies No Known Allergies Allergy (Verified 05/03/19 04:58) Home medications list reviewed: Yes Home Medications: Metoprolol Tartrate [Lopressor*] 50 mg PO BID #60 tab 05/03/19 - Past Medical/Surgical History Diabetic: Yes -: Chronic Back Pain -: Hypertension -: Diabetes mellitus type 2 insulin dependent -: Depression Anxiety -: eye surgery Psychosocial/ Personal History: Patient lives with aunt - Family History Family History: Reviewed- Non-Contributory - Social History Smoking Status: Never smoker Alcohol use: No CD- Drugs: No Caffeine use: No Place of Residence: Home Review of Systems General: Weakness, As per HPI Eyes: Unremarkable ENT: Unremarkable Respiratory: Unremarkable Cardiovascular: Edema, As per HPI Genitourinary: As per HPI, Unremarkable Musculoskeletal: Pedal edema, As per HPI Integumentary: Unremarkable Neurological: As per HPI Lymphatics: Unremarkable Physical Examination - Physical Exam General: Alert, In no apparent distress, Oriented x3, Cooperative HEENT: Atraumatic, Normocephalic Neck: Supple Respiratory: Clear to auscultation bilaterally, Normal air movement Cardiovascular: Normal pulses, Regular rate/rhythm Gastrointestinal: Normal bowel sounds, Soft and benign, Non-distended, No masses, No rebound, No guarding Musculoskeletal: Tenderness (2+ pitting edema to the lower extremities up to the waistline.) Integumentary: Tenderness/swelling (Edema as above) Neurological: Normal speech, Normal strength at 5/5 x4 extr, Normal tone, Normal affect External genitalia: Other (Scrotal edema noted) - Studies Laboratory Data (last 24 hrs) 11/15/19 04:00: PT 12.9 H, INR 1.10 11/15/19 04:00: WBC 8.9, Hgb 8.6 L, Hct 25.7 L, Plt Count 228 11/15/19 04:00: Sodium 145, Potassium 5.4 H, BUN 44 H, Creatinine 2.91 H, Glucose 181 H, Magnesium 2.4, Total Bilirubin 0.3, AST 10 L, ALT 20, Alkaline Phosphatase 114 Assessment and Plan - Plan Impression: Anasarca with scrotal edema likely related to acute on chronic systolic CHF Acute renal failure suspect chronic renal disease Diabetes mellitus type 2 insulin-dependent Hypertension Morbid obesity Depression with anxiety Anemia likely of chronic disease Plan: Anasarca with scrotal edema likely related to acute on chronic systolic CHF: Patient will be admitted for further evaluation and treatment. Will start IV Lasix twice daily. Will teach on 1500 cc per day fluid restriction. Will monitor input and output and daily weight closely. Cardiology consulted for further recommendation. Will obtain echocardiogram to further evaluate. Will need to hold DESIRE-inhibitor at this time due to acute renal failure. Will obtain and restart home medication. Will provide DVT prophylaxis. Anticipate improvement over the next 72 hr with possible discharge tomorrow. Acute renal failure suspect chronic renal disease: Will consult nephrology for further recommendation. Will discontinue metformin and lisinopril at this time. Will obtain renal ultrasound to further evaluate. Await recommendations. Diabetes mellitus type 2 insulin-dependent: Will provide insulin sliding scale. Will restart basal insulin. Will check A1c. Hypertension: Will provide medication IV. Will hold lisinopril due to occur renal failure. Will consider other options. Morbid obesity: Will obtain BMI. Teach on lifestyle modification education. Depression with anxiety: Obtain and restart home medication Anemia likely of chronic disease: Will check iron and B12 studies. Maintain h emoglobin above 8.0. Discharge Plan: Home Plan to discharge in: 72 Hours - Advance Directives Does patient have a Living Will: No Does patient have a Durable POA for Healthcare: No - Code Status/Comfort Care Code Status Assessed: Yes (Patient is full code) Time Spent Managing Pts Care (In Minutes): 55
[2019-11-15 09:55] LABS: CKMB Creatine Kinase MB 4.4 ng/mL (0.3-3.6); Creatine Phosphokinase 289 U/L (39-308); Ferritin 74.5 ng/mL (26-388); Transferrin 265 mg/dL (200-360); Troponin I < 0.02 ng/mL (0.0-0.045)
[2019-11-15] MEDS ORDERED: HYDROCODONE/APAP 7.5/325 MG TAB ONE (10:37)
--- NOTE | 2019-11-15 11:20 | RAD REPORT ---
EXAM DESCRIPTION: CT - Abdomen Pelvis Wo Contrast - 11/15/2019 4:47 am CLINICAL HISTORY: The patient is 54 years old and is Male; swelling testicles TECHNIQUE: Axial computed tomography images of the abdomen and pelvis without intravenous contrast. Sagittal and coronal reformatted images were created and reviewed. This CT exam was performed usi ng one or more of the following dose reduction techniques: automated exposure control, adjustment o f the mA and/or kV according to patient size, and/or use of iterative reconstruction technique. COMPARISON: No relevant prior studies available. FINDINGS: Lung bases: Unremarkable. No mass. No consolidation. Pleural space: Thickening of the intralobular septa in the lung bases, with patchy groundglass op acities. Trace bilateral pleural fluid. ABDOMEN: Liver: Unremarkable. Gallbladder and bile ducts: Unremarkable. No calcified stones. No ductal dilation. Pancreas: Unremarkable. No ductal dilation. Spleen: Unremarkable. No splenomegaly. Adrenals: Unremarkable. No mass. Kidneys and ureters: No nephrolithiasis, hydronephrosis or ureter stone. Stomach and bowel: No bowel dilatation or obstruction. No bowel wall thickening. PELVIS: Appendix: The visualized appendix is normal. No pericecal inflammation to suggest acute appendic itis. Bladder: Unremarkable. No stones. Reproductive: Unremarkable as visualized. ABDOMEN and PELVIS: Intraperitoneal space: Unremarkable. No free air. No significant fluid collection. Bones/joints: Schmorl's nodes at multiple levels in the lower thoracic spine. No acute fracture identified. No dislocation. Soft tissues: Large body habitus. Subcutaneous edema. Diffuse scrotal swelling and edema. Vasculature: Unremarkable. No abdominal aortic aneurysm. Lymph nodes: No pathologically enlarged lymph nodes. IMPRESSION: 1. Findings in the lung bases are suggestive of mild fluid overload. 2. Large body habitus. Subcutaneous edema. Diffuse scrotal swelling and edema. 3. No acute obstructive or inflammatory process identified in the abdomen or pelvis. Normal appendi x. Electronically signed by: Johanna Thakur MD 11/15/2019 4:59 AM CDT Due to temporary technical issues with the PACS/Fluency reporting system, reports are being signed by the in house radiologist without review as a courtesy to ensure prompt reporting. The interpreting r adiologist is fully responsible for the content of the report.
[2019-11-15] MEDS: HYDROCODONE/APAP 7.5/325 MG TAB PO PRN (12:00)
--- NOTE | 2019-11-15 15:05 | ECHO ---
HEIGHT: 5 ft 10 in WEIGHT: 320 lb 0 oz DATE OF STUDY: 11/15/[address]: Quan Canela DO 2-DIMENSIONAL: YES M.MODE: YES DOPPLER: YES COLOR FLOW: YES TDS: YES PORTABLE: DEFINITY: BUBBLE STUDY: DIAGNOSIS: CONGESTIVE HEART FAILURE TECHNICAN COMMENTS: TECHNICALLY DIFFILUT STUDY CARDIAC HISTORY: CATHERIZATION: SURGERY: PROSTHETIC VALVE: PACEMAKER: MEASUREMENTS (cm) DIASTOLIC (NORMALS) SYSTOLIC (NORMALS) IVSd 1.2 (0.6-1.2) LA Diam 4.3 (1.9-4.0) LVEF 64% LVIDd 5.2 (3.5-5.7) LVIDs 3.4 (2.0-3.5) %FS 35% LVPWd 1.4 (0.6-1.2) Ao Diam 3.1 (2.0-3.7) 2 DIMENSIONAL ASSESSMENT: RIGHT ATRIUM: NORMAL LEFT ATRIUM: NORMAL RIGHT VENTRICLE: NOT WELL SEEN LEFT VENTRICLE: APPEARS NORMAL TRICUSPID VALVE: MILD TRICUSPID REGURGITATION MITRAL VALVE: NORMAL PULMONIC VALVE: NOT WELL SEEN AORTIC VALVE: NORMAL PERICARDIAL EFFUSION: NONE AORTIC ROOT: NORMAL LEFT VENTRICULAR WALL MOTION: APPEARS NORMAL DOPPLER/COLOR FLOW: NORMAL COMMENTS: POOR STUDY, BUT LEFT VENTRICULAR EJECTION FRACTION APPEARS NORMAL 55-60%. RECOMMEND CONTRAST ECHOCARDIOGRAM TO EVALUATE FOR WALL MOTION ABNORMALITY. INDICATION OF SIGNIFICANY PULMONARY HYPERTENSION, BUT STUDY IS LIMITED TO GIVE GOOD ESTIMATE OF RIGHT VENTRICULAR SYSTOLIC PRESSURE AND RIGHT VENTRICULAR FUNCTION. TECHNOLOGIST: MATT SALINAS
[2019-11-15] MEDS: HYDRALAZINE HCL 20 MG/ML VIAL IV PRN ×2 (15:51→22:06)
[2019-11-15] MEDS: TRAMADOL HCL 50 MG TAB PO PRN (17:26)
[2019-11-15 17:31] LABS: CKMB Creatine Kinase MB 4.1 ng/mL (0.3-3.6); Creatine Phosphokinase 313 U/L (39-308); Troponin I < 0.02 ng/mL (0.0-0.045)
--- NOTE | 2019-11-15 17:59 | P.CNS ---
Date of Consult: 11/15/19 Reason for Consult: PORFIRIO Requesting Physician: Quan Canela Primary Care Provider: [facility]; Cardiology-Dr. Louis Chief Complaint: Edema to the lower extremities History of Present Illness: 54 yo HM CKD, DM that follows at the [facility] presents to the ER with moderate to severe, progressive edema with associated dyspnea in the setting of CHF and CKD. Reports intermittent ibuprofen use. 54-year-old male with history of depression, diabetes mellitus type 2 insulin dependent and hypertension. Patient goes to the [facility]. Over the past several days patient has been without his medication. He recently got his medication for diabetes, hypertension. Over several days he has noted increasing edema to the lower extremities up to the waist and scrotal region. He denies significant shortness of breath. Edema had not improved and felt uncomfortable. He denies any nausea, vomiting, chest pain, constipation. Patient reports taking no diuretic therapy. Therefore he came to the ER for f urther evaluation. 03:40 This 54 yrs old Male presents to ER via EMS with complaints of Testicular tw4 Swelling, Groin Pain. 03:40 The patient presents with scrotal pain, of both sides, swelling, that is moderate, of tw4 the left testicle and right testicle, tenderness, that is moderate, of the left testicle and right testicle. Onset: The symptoms/episode began/occurred 1 week(s) ago. Modifying factors: The symptoms are alleviated by remaining still, the symptoms are aggravated by movement. Associated signs and symptoms: The patient has no apparent associated signs or symptoms. The patient has not experienced similar s ymptoms in the past. Allergies No Known Allergies Allergy (Verified 05/03/19 04:58) Home medications list reviewed: Yes Home Medications: Gabapentin 100 mg PO TID 11/15/19 Glipizide [Glipizide ER] 1 tab PO BID 11/15/19 Hydroxyzine HCl [Atarax] 1 tab PO TID 11/15/19 Insulin Detemir [Levemir Flextouch] 24 units SQ BID 11/15/19 Lisinopril [Zestril] 40 mg PO DAILY 11/15/19 Metformin HCl [Glucophage] 500 mg PO BID 11/15/19 allopurinoL [Zyloprim] 100 mg PO DAILY 11/15/19 buPROPion HCL [Wellbutrin*] 1 tab PO DAILY 11/15/19 - Past Medical/Surgical History Diabetic: Yes -: Chronic Back Pain -: Hypertension -: Diabetes mellitus type 2 insulin dependent -: Depression Anxiety -: Anxiety -: eye surgery Psychosocial/ Personal History: Patient lives with aunt - Social History Alcohol use: No CD- Drugs: No Caffeine use: No Place of Residence: Home Review of Systems 10-point ROS is otherwise unremarkable General: Weakness, Malaise Respiratory: SOB with Excertion Cardiovascular: Edema Physical Examination Temp Pulse Resp BP Pulse Ox 97.8 F 94 H 20 166/70 H 94 11/15/19 16:00 11/15/19 17:26 11/15/19 16:00 11/15/19 17:26 11/15/19 16:00 General: In no apparent distress, Oriented x3, Cooperative HEENT: Atraumatic Neck: Supple, JVD distended Respiratory: Clear to auscultation bilaterally, Diminished Cardiovascular: Regular rate/rhythm, Edema Gastrointestinal: Soft and benign, Non-distended Musculoskeletal: No clubbing, No contractures Integumentary: No rashes, No cyanosis Neurological: Normal speech External genitalia: Edema Laboratory Data (last 24 hrs) 11/15/19 04:00: PT 12.9 H, INR 1.10 11/15/19 04:00: WBC 8.9, Hgb 8.6 L, Hct 25.7 L, Plt Count 228 11/15/19 04:00: Sodium 145, Potassium 5.4 H, BUN 44 H, Creatinine 2.91 H, Glucose 181 H, Magnesium 2.4, Total Bilirubin 0.3, AST 10 L, ALT 20, Alkaline Phosphatase 114 Imagings Data: EXAM DESCRIPTION: US - Renal Ultrasound-Complete - 11/15/2019 8:47 am CLINICAL HISTORY: . Acute/chronic renal failure COMPARISON: November 15, 2019 cat scan FINDINGS: The right kidney measures 9 cm with a normal echotexture. The left kidney measures 12 cm with a normal echotexture. Hydronephrosis is not seen. No gross abnormality of bladder IMPRESSION: Unremarkable renal ultrasound. EXAM DESCRIPTION: CT - Abdomen Pelvis Wo Contrast - 11/15/2019 4:47 am CLINICAL HISTORY: The patient is 54 years old and is Male; swelling testicles TECHNIQUE: Axial computed tomography images of the abdomen and pelvis without intravenous contrast. Sagittal and coronal reformatted images were created and reviewed. This CT exam was performed using one or more of the following dose reduction techniques: automated exposure control, adjustment of the mA and/or kV according to patient size, and/or use of iterative reconstruction technique. COMPARISON: No relevant prior studies available. FINDINGS: Lung bases: Unremarkable. No mass. No consolidation. Pleural space: Thickening of the intralobular septa in the lung bases, with patchy groundglass opacities. Trace bilateral pleural fluid. ABDOMEN: Liver: Unremarkable. Gallbladder and bile ducts: Unremarkable. No calcified stones. No ductal dilation. Pancreas: Unremarkable. No ductal dilation. Spleen: Unremarkable. No splenomegaly. Adrenals: Unremarkable. No mass. Kidneys and ureters: No nephrolithiasis, hydronephrosis or ureter stone. Stomach and bowel: No bowel dilatation or obstruction. No bowel wall thickening. PELVIS: Appendix: The visualized appendix is normal. No pericecal inflammation to s uggest acute appendicitis. Bladder: Unremarkable. No stones. Reproductive: Unremarkable as visualized. ABDOMEN and PELVIS: Intraperitoneal space: Unremarkable. No free air. No significant fluid collection. Bones/joints: Schmorl's nodes at multiple levels in the lower thoracic spine. No acute fracture identified. No dislocation. Soft tissues: Large body habitus. Subcutaneous edema. Diffuse scrotal swelling and edema. Vasculature: Unremarkable. No abdominal aortic aneurysm. Lymph nodes: No pathologically enlarged lymph nodes. IMPRESSION: 1. Findings in the lung bases are suggestive of mild fluid overload. 2. Large body habitus. Subcutaneous edema. Diffuse scrotal swelling and edema. 3. No acute obstructive or inflammatory process identified in the abdomen or pelvis. Normal appendix. Conclusions/Impression: A/ PORFIRIO CKD IV with proteinuria Hyperkalemia Hypocalcemia Hematuria HTN with CKD/ CHF. Systolic CHF, A/C DM II with CKD Iron deficiency anemia MELONY/ Secondary HyperPTH P/ Continue current POC and Medications. Increase Lasix 80mg IV q6h. Give Metolazone X1 dose. Start Coreg BID. Start Mary Q10. Start Vitamin D. May benefit from IV iron. Low sodium diet. No NSAIDs. AM labs. Daily weight. Thank you kindly for the consultation.
[2019-11-15] MEDS ORDERED: FUROSEMIDE 40 MG/4 ML VIAL IV SCH (18:00)
[2019-11-15] MEDS ORDERED: METOLAZONE 5 MG TABLET PO SCH (18:00)
[2019-11-15] MEDS: COENZYME Q10- 200 MG CAP PO SCH (18:39)
[2019-11-15 19:27] LABS: Urine Appearance CLEAR; Urine Bilirubin NEGATIVE (NEG); Urine Blood 3+ (NEG); Urine Color YELLOW; Urine Glucose TRACE (NEG); Urine Protein 2+ (NEG); Urine Urobilinogen 0.2 mg/dL (0.2-1.0); Urine pH 5.5 (5.0-7.0)
[2019-11-15 19:31] LABS: Urine Microscopic Reflex ORDER UMIC
[2019-11-15 19:34] LABS: Urine Bacteria <20 /HPF (NONE SEEN); Urine Culture Reflex Order REFLEXED; Urine Mucus 1+ /HPF (NONE SEEN); Urine RBC >50 /HPF (NONE SEEN)
[2019-11-15] MEDS ORDERED: carvediloL 12.5 MG TAB PO SCH (21:00)
[2019-11-15] MEDS: INSULIN GLARGINE 100 UNITS/ML SQ SCH (22:08)
[2019-11-16] MEDS: INSULIN -REGULAR HUMAN 50 UNIT/0.5 ML ML SQ SCH ×4 (00:36→16:30)
[2019-11-16] MEDS: HYDROCODONE/APAP 7.5/325 MG TAB PO PRN ×2 (00:58→22:19)
[2019-11-16] MEDS: FUROSEMIDE 40 MG/4 ML VIAL IV SCH ×4 (00:59→17:06)
[2019-11-16 04:47] LABS: Absolute Lymphocytes (CBC) 0.9 K/uL (0.7-4.9); Basophils % 0.4 % (0-1.3); Hematocrit 24.5 % (39.6-49.0); Lymphocytes % 10.2 % (15.3-44.8); RBC Red Blood Cell Count 2.76 M/uL (4.33-5.43)
[2019-11-16 05:04] LABS: Magnesium 2.2 mg/dL (1.8-2.4); Potassium 4.9 mmol/L (3.5-5.1); Uric Acid 7.5 mg/dL (3.5-7.2)
[2019-11-16] MEDS: HYDRALAZINE HCL 20 MG/ML VIAL IV PRN ×2 (06:19→22:19)
--- NOTE | 2019-11-16 08:42 | CON ---
Date of Consultation: 11/15/[address] Canela on 11/15/2019. He was seen on 11/15/2019. Reason For Consultation: [id number] systolic congestive heart failure. History Of Present Illness: Mr. Koenig is a 54-year-old male with history of diabete s, chronic diastolic congestive heart failure, hypertension, chronic back pain, and anxiety and has h istory of noncompliance with medical therapy. He came in with shortness of breath and anasarca. Cre atinine of 2.91, hemoglobin of 8.6, BNP is 1986, negative troponin, and a potassium of 5.4. He has h ad recent echocardiogram showing diastolic congestive heart failure. Had a negative stress test in J anuary of 2019. Denied any chest pain. Denied any palpitation. Denied any syncope, fever, cough, o r chills. Past Medical History: As stated above. Allergies: NONE. Review of Systems: Negative. Social History: Negative. Family History: Noncontributory. Medications: At home are supposed to be insulin, metformin, lisinopril, Neurontin, but I am not so s ure if he is taking any. Physical Examination: General: Mr. Koenig has obesity. Vital Signs: Stable. He was afebrile. He was in sinus rhythm. HEENT: Negative. Neck: Supple with no bruit, lymphadenopathy. He had JVD to the angle of the jaw. Chest: Reveals rales both bases. Cardiac: Revealed a regular rhythm and rate with an S4 gallop. Abdomen: Obese. He has anasarca and scrotal edema. Extremities: He has 2 to 3+ peripheral edema. Diagnostic Data: As stated earlier. Chest x-ray and EKG were pending. Impression And Plan: 1.[id number] diastolic congestive heart failure exacerbation. 2.Acute renal failure. 3.History of hypertension. 4.Diabetes. 5.Anxiety and chronic back pain. 6.Anemia. I think he needs to have Nephrology consultation. We should resume his home medication. We need to have him on a low-dose beta-iram. We should discontinue his lisinopril. We should diurese him ag gressively with IV Lasix. I will continue to follow him. NICOLE/MODL Voice ID: [id number] Report ID: [id number]
[2019-11-16] MEDS ORDERED: METOLAZONE 5 MG TABLET PO SCH ×2 (09:00→19:00)
[2019-11-16] MEDS: HEPARIN 5000 UNIT/ML 1 ML VIAL SQ SCH ×2 (09:00→22:20)
[2019-11-16] MEDS ORDERED: CYANOCOBALAMIN 1000MCG/ML INJ IM ONE (09:51)
--- NOTE | 2019-11-16 09:57 | P.PN ---
Subjective Date of Service: 11/16/19 Primary Care Provider: [facility]; Cardiology-Dr. Louis Chief Complaint: Edema to the lower extremities Subjective: Improving Physical Examination - Vital Signs Temperature: 97.9 F Blood Pressure: 178/73 Pulse: 82 Respirations: 20 Pulse Ox (%): 95 - Physical Exam General: Alert, In no apparent distress, Oriented x3, Cooperative HEENT: Atraumatic Neck: Supple Respiratory: Clear to auscultation bilaterally, Normal air movement Cardiovascular: Normal pulses, Regular rate/rhythm Gastrointestinal: Normal bowel sounds Integumentary: Tenderness/swelling (Edema to the lower extremities improved. Including scrotal region) Neurological: Normal speech, Normal strength at 5/5 x4 extr, Normal tone, Normal affect - Studies Medications List Reviewed: Yes Assessment & Plan Discharge Plan: Home Plan to discharge in: 24 Hours Physician Review Additional Text: Impression: Anasarca with scrotal edema secondary to acute on chronic diastolic CHF Acute renal failure suspect chronic renal disease Diabetes mellitus type 2 insulin-dependent Hypertension Morbid obesity Depression with anxiety Anemia likely of chronic disease with B12 def. Suspect obstructive sleep apnea Plan: Anasarca with scrotal edema secondary to acute on chronic diastolic CHF: Patient has done well with IV diuresis. Nephrology has adjusted IV diuretic therapy. Continue 1500 cc per day fluid restriction. Encourage ambulation. Cardiology recommends no further intervention at this time. Will discuss further with nephrology. Anticipate improvement over the next 24-48 hr. Acute renal failure suspect chronic renal disease: Nephrology increased IV diuretic therapy. Continue fluid restriction. Continue to hold metformin and lisinopril at this time. Will discuss further with nephrology. Diabetes mellitus type 2 insulin-dependent: Will provide insulin sliding scale. Obtain A1c. Continue to monitor and adjust medication Hypertension: Carvedilol initiated. Lisinopril discontinued Morbid obesity, BMI 47: Teach on lifestyle modification education. Depression with anxiety: Obtain and restart home medication Anemia likely of chronic disease with B12 def.: Will start B12 supplementation. Suspect obstructive sleep apnea: This can be further evaluated as an outpatient. Time Spent Managing Pts Care (In Minutes): 55
[2019-11-16] MEDS: buPROPion HCL 100 MG TAB PO SCH (10:28)
[2019-11-16] MEDS: TRAMADOL HCL 50 MG TAB PO PRN (10:28)
[2019-11-16] MEDS: GABAPENTIN 100 MG CAP PO SCH ×3 (10:29→22:20)
[2019-11-16] MEDS: CALCITROL 0.25 MCG CAP PO SCH (10:29)
[2019-11-16] MEDS: COENZYME Q10- 200 MG CAP PO SCH (10:30)
[2019-11-16] MEDS: carvediloL 25 MG TAB PO SCH ×2 (10:30→22:17)
[2019-11-16] MEDS: VITAMIN D 5,000 UNIT CAP PO SCH (10:32)
--- NOTE | 2019-11-16 18:25 | P.PN ---
Date of Service: 11/16/19 Vital Signs Temp Pulse Resp BP Pulse Ox 97.8 F 82 20 150/67 H 96 11/16/19 16:00 11/16/19 17:06 11/16/19 16:00 11/16/19 17:06 11/16/19 16:00 Medications Acetaminophen (Tylenol -Extra Strength) 500 mg PO Q4HP PRN PRN Reason: TEMP > 101' F Stop: 12/15/19 07:48 Hydrocodone Bitart/Acetaminophen (Quinton 7.5/325 Mg) 1 tab PO Q6H PRN PRN Reason: Pain scale 5-7 (Moderate) Stop: 12/15/19 07:48 Last Admin: 11/16/19 00:58 Dose: 1 tab Documented by: Bupropion HCl (Wellbutrin) 100 mg PO DAILY [facility] Stop: 12/16/19 09:01 Last Admin: 11/16/19 10:28 Dose: 100 mg Documented by: Calcitriol (Rocaltrol) 0.5 mcg PO DAILY MARGARET Stop: 12/16/19 09:01 Last Admin: 11/16/19 10:29 Dose: 0.5 mcg Documented by: Carvedilol (Coreg) 25 mg PO BID MARGARET Stop: 12/16/19 09:01 Last Admin: 11/16/19 10:30 Dose: 25 mg Documented by: Cholecalciferol (Vitamin D 5,000 Iu Cap) 5,000 unit PO DAILY MARGARET Stop: 12/16/19 09:01 Last Admin: 11/16/19 10:32 Dose: 5,000 unit Documented by: Coenzyme Q10 (Coenzyme Q10) 200 mg PO DAILY MARGARET Stop: 12/15/19 18:01 Last Admin: 11/16/19 10:30 Dose: 200 mg Documented by: Cyanocobalamin (Vitamin B-12) 1,000 mcg PO DAILY [facility] Stop: 12/17/19 09:01 Dextrose (Dextrose 50% Syringe/Vial) 12.5 gm IV PRN PRN; Protocol PRN Reason: HYPOGLYCEMIA Stop: 12/15/19 07:48 Furosemide (Lasix) 80 mg IV Q6HR MARGARET Stop: 12/15/19 18:01 Last Admin: 11/16/19 17:06 Dose: 80 mg Documented by: Gabapentin (Neurontin) 100 mg PO TID MARGARET Stop: 12/16/19 09:01 Last Admin: 11/16/19 13:47 Dose: 100 mg Documented by: Glucagon (Glucagen) 1 mg IM 1X PRN; Protocol PRN Reason: HYPOGLYCEMIA Stop: 12/15/19 07:48 Heparin Sodium (Porcine) (Heparin 5,000 Units/Ml) 5,000 unit SQ Q12HR MARGARET Stop: 12/15/19 09:01 Last Admin: 11/16/19 09:00 Dose: Not Given Documented by: Hydralazine HCl (Apresoline) 10 mg IV Q6HP PRN PRN Reason: Titrate to SBP (MUST DEFINE) Stop: 12/15/19 07:48 Last Admin: 11/16/19 06:19 Dose: 10 mg Documented by: Insulin Glargine (Lantus) 10 units SQ BEDTIME MARGARET Stop: 12/15/19 21:01 Last Admin: 11/15/19 22:08 Dose: 10 units Documented by: Insulin Human Regular (Novolin -R) 0 unit SQ ACHS [facility]; Protocol Stop: 12/15/19 07:48 Last Admin: 11/16/19 16:30 Dose: Not Given Documented by: Metolazone (Zaroxolyn) 10 mg PO 1X [facility] Stop: 12/16/19 19:01 Ondansetron HCl (Zofran) 4 mg IV Q6HP PRN PRN Reason: NAUSEA / VOMITING Stop: 12/15/19 07:48 Sodium Chloride (Normal Saline Flush) 10 ml IV BID [facility] Stop: 12/15/19 09:01 Last Admin: 11/16/19 10:31 Dose: 10 ml Documented by: Tramadol HCl (Ultram) 50 mg PO TID PRN PRN Reason: Pain scale 2-4 (Mild) Stop: 12/15/19 07:48 Last Admin: 11/16/19 10:28 Dose: 50 mg Documented by: Assessment/ Plan: Nephrology CPS stable without CP or SOB. +BUSTAMANTE Feeling better. Edema improving. No acute events overnight. Vitals, medications, blood work and imaging reviewed in the chart. General: In no apparent distress, Oriented x3, Cooperative HEENT: Atraumatic Neck: Supple, JVD distended Respiratory: Clear to auscultation bilaterally, Diminished Cardiovascular: Regular rate/rhythm, Edema Gastrointestinal: Soft and benign, Non-distended Musculoskeletal: No clubbing, No contractures Integumentary: No rashes, No cyanosis Neurological: Normal speech External genitalia: Edema Laboratory Data (last 24 hrs) 11/15/19 04:00: PT 12.9 H, INR 1.10 11/15/19 04:00: WBC 8.9, Hgb 8.6 L, Hct 25.7 L, Plt Count 228 11/15/19 04:00: Sodium 145, Potassium 5.4 H, BUN 44 H, Creatinine 2.91 H, Glucose 181 H, Magnesium 2.4, Total Bilirubin 0.3, AST 10 L, ALT 20, Alkaline Phosphatase 114 Imagings Data: EXAM DESCRIPTION: US - Renal Ultrasound-Complete - 11/15/2019 8:47 am CLINICAL HISTORY: . Acute/chronic renal failure COMPARISON: November 15, 2019 cat scan FINDINGS: The right kidney measures 9 cm with a normal echotexture. The left kidney measures 12 cm with a normal echotexture. Hydronephrosis is not seen. No gross abnormality of bladder IMPRESSION: Unremarkable renal ultrasound. EXAM DESCRIPTION: CT - Abdomen Pelvis Wo Contrast - 11/15/2019 4:47 am CLINICAL HISTORY: The patient is 54 years old and is Male; swelling testicles TECHNIQUE: Axial computed tomography images of the abdomen and pelvis without intravenous contrast. Sagittal and coronal reformatted images were created and reviewed. This CT exam was performed using one or more of the following dose reduction techniques: automated exposure control, adjustment of the mA and/or kV according to patient size, and/or use of iterative reconstruction technique. COMPARISON: No relevant prior studies available. FINDINGS: Lung bases: Unremarkable. No mass. No consolidation. Pleural space: Thickening of the intralobular septa in the lung bases, with patchy groundglass opacities. Trace bilateral pleural fluid. ABDOMEN: Liver: Unremarkable. Gallbladder and bile ducts: Unremarkable. No calcified stones. No ductal dilation. Pancreas: Unremarkable. No ductal dilation. Spleen: Unremarkable. No splenomegaly. Adrenals: Unremarkable. No mass. Kidneys and ureters: No nephrolithiasis, hydronephrosis or ureter stone. Stomach and bowel: No bowel dilatation or obstruction. No bowel wall thickening. PELVIS: Appendix: The visualized appendix is normal. No pericecal inflammation to suggest acute appendicitis. Bladder: Unremarkable. No stones. Reproductive: Unremarkable as visualized. ABDOMEN and PELVIS: Intraperitoneal space: Unremarkable. No free air. No significant fluid collection. Bones/joints: Schmorl's nodes at multiple levels in the lower thoracic spine. No acute fracture identified. No dislocation. Soft tissues: Large body habitus. Subcutaneous edema. Diffuse scrotal swelling and edema. Vasculature: Unremarkable. No abdominal aortic aneurysm. Lymph nodes: No pathologically enlarged lymph nodes. IMPRESSION: 1. Findings in the lung bases are suggestive of mild fluid overload. 2. Large body habitus. Subcutaneous edema. Diffuse scrotal swelling and edema. 3. No acute obstructive or inflammatory process identified in the abdomen or pelvis. Normal appendix. Conclusions/Impression: A/ PORFIRIO CKD IV with proteinuria Hyperkalemia Hypocalcemia Hematuria HTN with CKD/ CHF. Systolic CHF, A/C with anasarca. DM II with CKD Iron deficiency anemia MELONY/ Secondary HyperPTH P/ Continue current POC and Medications. Continue Lasix 80mg IV q6h. Give Metolazone as needed. Increase Coreg as needed. May benefit from IV iron. Low sodium diet. No NSAIDs. AM labs. Daily weight.
[2019-11-16] MEDS: INSULIN GLARGINE 100 UNITS/ML SQ SCH (22:23)
[2019-11-17] MEDS: FUROSEMIDE 40 MG/4 ML VIAL IV SCH ×3 (00:14→17:26)
[2019-11-17] MEDS: HYDROCODONE/APAP 7.5/325 MG TAB PO PRN ×2 (05:11→13:00)
[2019-11-17 06:17] LABS: Absolute Lymphocytes (CBC) 1.2 K/uL (0.7-4.9); Basophils % 0.4 % (0-1.3); Hematocrit 25.6 % (39.6-49.0); MPV 8.2 fL (7.6-11.3); RBC Red Blood Cell Count 2.92 M/uL (4.33-5.43)
[2019-11-17 06:25] LABS: Potassium 4.3 mmol/L (3.5-5.1)
[2019-11-17] MEDS: INSULIN -REGULAR HUMAN 50 UNIT/0.5 ML ML SQ SCH ×4 (07:30→21:00)
[2019-11-17] MEDS: buPROPion HCL 100 MG TAB PO SCH (08:49)
[2019-11-17] MEDS: CYANOCOBALAMIN 1,000 MCG TAB PO SCH (08:50)
[2019-11-17] MEDS: CALCITROL 0.25 MCG CAP PO SCH (08:50)
[2019-11-17] MEDS: carvediloL 25 MG TAB PO SCH ×2 (08:50→21:02)
[2019-11-17] MEDS: VITAMIN D 5,000 UNIT CAP PO SCH (08:51)
[2019-11-17] MEDS: GABAPENTIN 100 MG CAP PO SCH ×3 (08:51→21:02)
[2019-11-17] MEDS: COENZYME Q10- 200 MG CAP PO SCH (08:51)
[2019-11-17] MEDS: HEPARIN 5000 UNIT/ML 1 ML VIAL SQ SCH ×2 (08:52→21:01)
--- NOTE | 2019-11-17 10:36 | P.PN ---
Subjective Date of Service: 11/17/19 Primary Care Provider: [place] [facility]; Cardiology-Dr. Louis Chief Complaint: Edema to the lower extremities Subjective: Improving Physical Examination - Vital Signs Temperature: 97.7 F Blood Pressure: 163/70 Pulse: 72 Respirations: 18 Pulse Ox (%): 96 - Physical Exam General: Alert, Cooperative HEENT: Atraumatic Neck: Supple Respiratory: Clear to auscultation bilaterally, Normal air movement Cardiovascular: Normal pulses, Regular rate/rhythm Gastrointestinal: Normal bowel sounds Integumentary: Tenderness/swelling (Edema to the lower extremity significantly improved. Scrotal edema also improved. Patient with Langford catheter.) Neurological: Normal speech, Normal strength at 5/5 x4 extr, Normal tone - Studies Medications List Reviewed: Yes Assessment & Plan Discharge Plan: Home Plan to discharge in: 24 Hours Physician Review Additional Text: Impression: Anasarca with scrotal edema secondary to acute on chronic diastolic CHF Acute renal failure suspect chronic renal disease Diabetes mellitus type 2 insulin-dependent Hypertension Morbid obesity Depression with anxiety Anemia likely of chronic disease with B12 def. Suspect obstructive sleep apnea Plan: Anasarca with scrotal edema secondary to acute on chronic diastolic CHF: Continue IV diuresis. Langford catheter in place. Edema improved. Will discuss with nephrology about the possibility of removing Langford catheter and change to oral diuretic therapy. Encouraged fluid restriction. Encourage ambulation. Anticipate possible discharge as early as tomorrow. Acute renal failure suspect chronic renal disease: Continue with diuresis. Will discuss further with nephrology about plan of care with possible discharge soon. Diabetes mellitus type 2 insulin-dependent: Will provide insulin sliding scale. A1c 6.6. Continue to monitor and adjust medication Hypertension: Carvedilol initiated. Continue to adjust. Lisinopril discontinued Morbid obesity, BMI 47: Teach on lifestyle modification education. Depression with anxiety: Continue home medication Anemia likely of chronic disease with B12 def.: Continue B12 supplementation. Suspect obstructive sleep apnea: This can be further evaluated as an outpatient. Time Spent Managing Pts Care (In Minutes): 55
--- NOTE | 2019-11-17 10:42 | P.PN ---
Subjective Date of Service: 11/17/19 Primary Care Provider: [place] [facility]; Cardiology-Dr. Louis Chief Complaint: Edema to the lower extremities Subjective: Other (continues to have scrotal paina and discomfort ,swelling about the same) Review of Systems Eyes: Unremarkable ENT: Unremarkable Respiratory: Shortness of Breath, SOB with Excertion Cardiovascular: Edema, Light Headedness Gastrointestinal: Distention Integumentary: Other, As per HPI Neurological: Weakness Physical Examination - Vital Signs Temperature: 97.7 F Blood Pressure: 163/70 Pulse: 72 Respirations: 18 Pulse Ox (%): 96 - Physical Exam General: Alert, In no apparent distress, Oriented x3 HEENT: Atraumatic Neck: Supple, Without JVD or thyroid abnormality Respiratory: Expiratory wheezes Cardiovascular: Regular rate/rhythm, Edema (3+ with anasarca ) Gastrointestinal: Normal bowel sounds Integumentary: No rashes External genitalia: Edema (scrotal edema ) - Studies Medications List Reviewed: Yes Assessment And Plan - Current Problems (Diagnosis) (1) Cardiorenal syndrome with renal failure Current Visit: Yes Status: Acute Comment: worsening renal insuffiency will decrease lasix dose add spironolactone (2) Hypertension, malignant Current Visit: No Status: Acute - Code Status/Comfort Care Code Status: Full Code Physician Review Additional Text: Impression: Anasarca with scrotal edema secondary to acute on chronic diastolic CHF Acute renal failure suspect chronic renal disease cardiorenal syndrome Diabetes mellitus type 2 insulin-dependent Hypertension Morbid obesity Depression with anxiety Anemia likely of chronic disease with B12 def. Suspect obstructive sleep apnea Plan: decrease lasix and monitor for now add spirinolactone low sodium diet PT OT will need close out pt follow up and aggressive diuretic management
[2019-11-17] MEDS: SPIRONOLACTONE 25 MG TABLET PO SCH (13:01)
[2019-11-17] MEDS: INSULIN GLARGINE 100 UNITS/ML SQ SCH (21:03)
[2019-11-18] MEDS: HYDROCODONE/APAP 7.5/325 MG TAB PO PRN ×3 (04:58→20:30)
[2019-11-18 06:20] LABS: Absolute Lymphocytes (CBC) 1.2 K/uL (0.7-4.9); Basophils % 0.4 % (0-1.3); Hematocrit 26.5 % (39.6-49.0); Lymphocytes % 13.4 % (15.3-44.8); MPV 8.2 fL (7.6-11.3); RBC Red Blood Cell Count 3.01 M/uL (4.33-5.43)
[2019-11-18 06:33] LABS: Magnesium 1.9 mg/dL (1.8-2.4); Potassium 4.2 mmol/L (3.5-5.1)
[2019-11-18 07:11] LABS: Urine Appearance CLEAR; Urine Bilirubin NEGATIVE (NEG); Urine Blood TRACE (NEG); Urine Color YELLOW; Urine Glucose TRACE (NEG); Urine Protein 3+ (NEG); Urine Urobilinogen 0.2 mg/dL (0.2-1.0)
[2019-11-18 07:29] LABS: Urine Bacteria NONE SEEN /HPF (NONE SEEN); Urine Culture Reflex Order NOT NEEDED; Urine Mucus 1+ /HPF (NONE SEEN)
[2019-11-18] MEDS: INSULIN -REGULAR HUMAN 50 UNIT/0.5 ML ML SQ SCH ×4 (07:30→20:29)
[2019-11-18] MEDS: VITAMIN D 5,000 UNIT CAP PO SCH (09:06)
[2019-11-18] MEDS: SPIRONOLACTONE 25 MG TABLET PO SCH (09:07)
[2019-11-18] MEDS: CYANOCOBALAMIN 1,000 MCG TAB PO SCH (09:07)
[2019-11-18] MEDS: CALCITROL 0.25 MCG CAP PO SCH (09:07)
[2019-11-18] MEDS: buPROPion HCL 100 MG TAB PO SCH (09:07)
[2019-11-18] MEDS: GABAPENTIN 100 MG CAP PO SCH ×3 (09:07→20:31)
[2019-11-18] MEDS: HEPARIN 5000 UNIT/ML 1 ML VIAL SQ SCH ×2 (09:08→20:29)
[2019-11-18] MEDS: FUROSEMIDE 40 MG/4 ML VIAL IV SCH ×2 (09:08→16:07)
[2019-11-18] MEDS: carvediloL 25 MG TAB PO SCH ×2 (09:08→20:31)
[2019-11-18] MEDS: COENZYME Q10- 200 MG CAP PO SCH (09:08)
--- NOTE | 2019-11-18 10:42 | P.PN ---
Subjective Date of Service: 11/18/19 Primary Care Provider: [place] [facility]; Cardiology-Dr. Louis Chief Complaint: Edema to the lower extremities Subjective: Improving, Doing well Physical Examination - Vital Signs Temperature: 97.1 F Blood Pressure: 189/83 Pulse: 69 Respirations: 17 Pulse Ox (%): 69 - Physical Exam General: Alert, In no apparent distress, Cooperative HEENT: Atraumatic Neck: Supple Respiratory: Clear to auscultation bilaterally, Normal air movement Cardiovascular: Normal pulses, Regular rate/rhythm Gastrointestinal: Normal bowel sounds Integumentary: Other (Edema to the lower extremities improved including scrotal region.) Neurological: Normal speech, Normal strength at 5/5 x4 extr, Normal tone, Normal affect - Studies Medications List Reviewed: Yes Assessment & Plan Discharge Plan: Home Plan to discharge in: 24 Hours Physician Review Additional Text: Impression: Anasarca with scrotal edema secondary to acute on chronic diastolic CHF Acute renal failure suspect chronic renal disease stage IV cardiorenal syndrome Diabetes mellitus type 2 insulin-dependent Hypertension Morbid obesity Depression with anxiety Anemia likely of chronic disease with B12 def. Suspect obstructive sleep apnea Plan: Anasarca with scrotal edema secondary to acute on chronic diastolic CHF: Edema significantly improved. Continue fluid restriction and current diuretic therapy. Nephrology continues to adjust. Possible discharge as early as today. Will discuss with nephrology. Langford catheter has been removed. Encourage ambulation. Acute renal failure suspect chronic renal disease stage 4 cardiorenal syndrome: Continue with diuresis. Renal failure stable. Will discuss with nephrology about possible discharge within the next 24 hr. Diabetes mellitus type 2 insulin-dependent: Continue Accu-Cheks and sliding scale. Will monitor closely. Will adjust medication. Hypertension: Overall stable. Will continue to adjust medication. Morbid obesity: Lifestyle modification education provided. BMI 45 Depression with anxiety: Continue medication. Anemia likely of chronic disease with B12 def.: Continue supplementation. Suspect obstructive sleep apnea: Will recommend sleep study to be done as an outpatient. Time Spent Managing Pts Care (In Minutes): 55
--- NOTE | 2019-11-18 14:47 | P.PN ---
Subjective Date of Service: 11/18/19 Primary Care Provider: [place] [facility]; Cardiology-Dr. Louis Chief Complaint: Edema to the lower extremities Subjective: Other (continues to have pain and discomforty but ambulating better) Review of Systems 10-point ROS is otherwise unremarkable Physical Examination - Vital Signs Temperature: 98.0 F Blood Pressure: 144/66 Pulse: 60 Respirations: 17 Pulse Ox (%): 98 - Physical Exam General: Alert, In no apparent distress HEENT: Atraumatic Neck: Without JVD or thyroid abnormality Respiratory: Clear to auscultation bilaterally Cardiovascular: Edema (anasarca involving LE and genitals ) Gastrointestinal: Normal bowel sounds Neurological: Normal speech External genitalia: Edema - Studies Medications List Reviewed: Yes Assessment And Plan - Current Problems (Diagnosis) (1) Cardiorenal syndrome with renal failure Current Visit: Yes Status: Acute Comment: worsening renal insuffiency will decrease lasix dose add spironolactone (2) Hypertension, malignant Current Visit: No Status: Acute Physician Review Additional Text: Impression: Anasarca with scrotal edema secondary to acute on chronic diastolic CHF Acute renal failure suspect chronic renal disease stage IV cardiorenal syndrome Diabetes mellitus type 2 insulin-dependent Hypertension Morbid obesity Depression with anxiety Anemia likely of chronic disease with B12 def. Suspect obstructive sleep apnea Plan: conitnues to have worsening creatinine decrease lasix further continue spironolactone and monitor hyperkalemia no lisinopril for now monitor I/IO and AM labs if renal function stable tomorrow can be discharged with close out pt follow up
[2019-11-18] MEDS: TRAMADOL HCL 50 MG TAB PO PRN (16:14)
[2019-11-18] MEDS: INSULIN GLARGINE 100 UNITS/ML SQ SCH (20:28)
[2019-11-19 01:24] VITALS: TEMP 97.7
[2019-11-19] MEDS: HYDRALAZINE HCL 20 MG/ML VIAL IV PRN (04:50)
[2019-11-19 05:30] LABS: HBsAG Nonreactive (Nonreactive)
[2019-11-19] MEDS: INSULIN -REGULAR HUMAN 50 UNIT/0.5 ML ML SQ SCH ×2 (07:30→11:30)
[2019-11-19] MEDS: HYDROCODONE/APAP 7.5/325 MG TAB PO PRN (09:27)
[2019-11-19] MEDS: VITAMIN D 5,000 UNIT CAP PO SCH (09:29)
[2019-11-19] MEDS: HEPARIN 5000 UNIT/ML 1 ML VIAL SQ SCH (09:29)
[2019-11-19] MEDS: CYANOCOBALAMIN 1,000 MCG TAB PO SCH (09:29)
[2019-11-19] MEDS: GABAPENTIN 100 MG CAP PO SCH ×2 (09:30→14:00)
[2019-11-19] MEDS: FUROSEMIDE 40 MG/4 ML VIAL IV SCH (09:30)
[2019-11-19] MEDS: CALCITROL 0.25 MCG CAP PO SCH (09:30)
[2019-11-19] MEDS: SPIRONOLACTONE 25 MG TABLET PO SCH (09:30)
[2019-11-19] MEDS: buPROPion HCL 100 MG TAB PO SCH (09:30)
[2019-11-19] MEDS: carvediloL 25 MG TAB PO SCH (09:30)
--- NOTE | 2019-11-19 09:30 | P.DS ---
Admission Date: 11/15/19 Discharge Date: 11/19/19 Primary Care Provider: [facility]; Cardiology-Dr. Louis Disposition: DC HOME/HOME HEALTH CARE Discharge Condition: GOOD Reason for Admission: Edema to the lower extremities Consultations: Nephrology-Dr. Pillai Cardiology-Dr. Louis Procedures: Ct Scan: FINDINGS: Lung bases: Unremarkable. No mass. No consolidation. Pleural space: Thickening of the intralobular septa in the lung bases, with patchy groundglass opacities. Trace bilateral pleural fluid. ABDOMEN: Liver: Unremarkable. Gallbladder and bile ducts: Unremarkable. No calcified stones. No ductal dilation. Pancreas: Unremarkable. No ductal dilation. Spleen: Unremarkable. No splenomegaly. Adrenals: Unremarkable. No mass. Kidneys and ureters: No nephrolithiasis, hydronephrosis or ureter stone. Stomach and bowel: No bowel dilatation or obstruction. No bowel wall thickening. PELVIS: Appendix: The visualized appendix is normal. No pericecal inflammation to suggest acute appendicitis. Bladder: Unremarkable. No stones. Reproductive: Unremarkable as visualized. ABDOMEN and PELVIS: Intraperitoneal space: Unremarkable. No free air. No significant fluid collection. Bones/joints: Schmorl's nodes at multiple levels in the lower thoracic spine. No acute fracture identified. No dislocation. Soft tissues: Large body habitus. Subcutaneous edema. Diffuse scrotal swelling and edema. Vasculature: Unremarkable. No abdominal aortic aneurysm. Lymph nodes: No pathologically enlarged lymph nodes. IMPRESSION: 1. Findings in the lung bases are suggestive of mild fluid overload. 2. Large body habitus. Subcutaneous edema. Diffuse scrotal swelling and edema. 3. No acute obstructive or inflammatory process identified in the abdomen or pelvis. Normal appendix. Renal US: FINDINGS: The right kidney measures 9 cm with a normal echotexture. The left kidney measures 12 cm with a normal echotexture. Hydronephrosis is not seen. No gross abnormality of bladder IMPRESSION: Unremarkable renal ultrasound. ECHO: Ejection fraction 64% LEFT VENTRICULAR WALL MOTION: APPEARS NORMAL DOPPLER/COLOR FLOW: NORMAL COMMENTS: POOR STUDY, BUT LEFT VENTRICULAR EJECTION FRACTION APPEARS NORMAL 55-60%. RECOMMEND CONTRAST ECHOCARDIOGRAM TO EVALUATE FOR WALL MOTION ABNORMALITY. INDICATION OF SIGNIFICANY PULMONARY HYPERTENSION, BUT STUDY IS LIMITED TO GIVE GOOD ESTIMATE OF RIGHT VENTRICULAR SYSTOLIC PRESSURE AND RIGHT VENTRICULAR FUNCTION. Medical Problem List: Anasarca with scrotal edema secondary to acute on chronic diastolic CHF Acute renal failure suspect chronic renal disease stage IV cardiorenal syndrome Diabetes mellitus type 2 insulin-dependent Pulmonary hypertension Morbid obesity, BMI 45 Depression with anxiety Anemia likely of chronic disease with B12 def. Suspect obstructive sleep apnea Chronic pain Brief History of Present Illness: 54-year-old male with history of depression, diabetes mellitus type 2 insulin dependent and hypertension. Patient goes to the [facility]. Over the past several days patient has been without his medication. He recently got his medication for diabetes, hypertension. Over several days he has noted increasing edema to the lower extremities up to the waist and scrotal region. He denies significant shortness of breath. Edema had not improved and felt uncomfortable. He denies any nausea, vomiting, chest pain, constipation. Patient reports taking no diuretic therapy. Therefore he came to the ER for further evaluation. In the ER patient evaluated. Vital signs stable. White count 8.9, hemoglobin 8.6. Troponin unremarkable. Sodium 145, potassium 5.4. BUN of 44, creatinine 2.91 with a GFR of 23. Glucose 181. Chest x-ray shows enlargement of heart. No significant CHF noted. CT scan shows no renal hydronephrosis or stone. Patient given IV Lasix. Patient admitted for further evaluation. When I saw the patient ER, patient appeared comfortable. No significant distress noted. Patient reports taking medication for diabetes and hypertension. Medication includes glipizide, metformin, lisinopril and insulin therapy. He does not take any diuretic therapy. Hospital Course: Patient presented with anasarca. Edema primarily to the lower extremities up to the thigh and scrotal region. Patient found to have acute on chronic diastolic CHF complicated with acute on chronic renal failure stage 4 likely related to cardiorenal syndrome. The patient required diuresis. Patient was educated on fluid restriction as well. Edema has significantly improved. This includes scrotal region. Echocardiogram revealed normal ejection fraction but significant pulmonary hypertension noted. Renal ultrasound showed no acute blockage. Patient has responded well to diuresis. At discharge patient will continue with a 1500 cc per day fluid restriction and low-salt diet. Patient is to elevate his legs when sitting or lying. He is to monitor his weight daily. If his weight increases by more than 5 lb he is to contact nephrology or PCP for further recommendation. At discharge patient will continue with Lasix 80 mg 1 pill twice daily and Aldactone 25 mg daily. Recommend to repeat lab-BMP in 1-2 weeks to monitor his progress. Recommend follow up with Nephrology to further monitor and address. Recommend follow up with pulmonology further address pulmonary hypertension. As mentioned above patient with acute on chronic renal disease stage IV. Patient with cardiorenal syndrome. Patient was treated with diuretic therapy. This has improved. Nephrology was consulted and monitored his progress. At discharge he will continue with Calcitrol 0.5 g daily, vitamin-D 5000 units daily. Recommend no further use of nonsteroidal anti-inflammatories. Future medications will need to be renally dose. Recommend to recheck lab-BMP in 1-2 weeks to monitors progress. Recommend follow up with nephrology as directed. Continue with fluid restriction as recommended above. Patient with diabetes mellitus type 2 insulin dependent. A1c 6.6. Medications were adjusted in the course of his stay. Metformin was discontinued due to his acute on chronic renal failure. At discharge he will continue with his current medications including Levemir 24 units sc twice daily. Patient should consider discontinuing glipizide ER 10 mg daily as this may increase risk for hypoglycemia. For now will recommend to discontinue this. Recommend to maintain blood sugar less than 140 fasting and less than 200 after meals. Further adjustment can be done by his PCP. Patient with pulmonary hypertension. At discharge patient will continue with his current medication carvedilol 25 mg 1 pill twice daily. Recommend to discontinue lisinopril at this time due to chronic renal disease. Recommend to maintain blood pressure less than 150/80. Further adjustment can be done by his PCP. Additional medication may be required. This can be further addressed by his PCP or nephrology. Recommend follow up with pulmonology to further address his pulmonary hypertension to consider treatment as an outpatient. Patient with anemia of chronic disease. Patient found to have B12 deficiency. At discharge he will continue with B12 supplementation daily. Recommend to recheck lab-CBC, B12 in 2-4 weeks to monitors progress. Further adjustment can be done by his PCP. Patient likely with underlying obstructive sleep apnea. BMI 45. Recommend follow up with pulmonology as an outpatient for further evaluation including sleep study. Patient with chronic pain. Patient may continue with gabapentin 100 mg 3 times a day. A limited supply of tramadol 50 mg 1 pill twice daily as needed for pain will be provided. Vital Signs/Physical Exam: Temp Pulse Resp BP Pulse Ox 97.7 F 67 18 177/76 H 97 11/19/19 04:00 11/19/19 04:00 11/19/19 04:00 11/19/19 04:00 11/19/19 04:00 General: Alert, In no apparent distress, Oriented x3, Cooperative HEENT: Atraumatic Neck: Supple Respiratory: Clear to auscultation bilaterally, Normal air movement Cardiovascular: Normal pulses, Regular rate/rhythm Gastrointestinal: Normal bowel sounds, Soft and benign, Non-distended, No masses, No guarding Integumentary: Tenderness/swelling (Edema to the lower extremity significantly improved. Scrotal edema also improved.) Neurological: Normal speech, Normal strength at 5/5 x4 extr, Normal tone, Normal affect Laboratory Data at Discharge: WBC 9.0 K/uL (4.3-10.9) 11/18/19 05:23 Hgb 8.8 g/dL (13.6-17.9) L 11/18/19 05:23 Hct 26.5 % (39.6-49.0) L 11/18/19 05:23 Plt Count 248 K/uL (152-406) 11/18/19 05:23 PT 12.9 SECONDS (9.5-12.5) H 11/15/19 04:00 INR 1.10 11/15/19 04:00 Sodium 139 mmol/L (136-145) 11/18/19 05:23 Potassium 4.2 mmol/L (3.5-5.1) 11/18/19 05:23 BUN 53 mg/dL (7-18) H 11/18/19 05:23 Creatinine 3.47 mg/dL (0.55-1.3) H 11/18/19 05:23 Glucose 164 mg/dL (74-106) H 11/18/19 05:23 Uric Acid 7.5 mg/dL (3.5-7.2) H 11/16/19 04:12 Magnesium 1.9 mg/dL (1.8-2.4) 11/18/19 05:23 Total Bilirubin 0.3 mg/dL (0.2-1.0) 11/15/19 04:00 AST 10 U/L (15-37) L 11/15/19 04:00 ALT 20 U/L (12-78) 11/15/19 04:00 Alkaline Phosphatase 114 U/L (45-117) 11/15/19 04:00 Troponin I < 0.02 ng/mL (0.0-0.045) 11/15/19 16:59 Home Medications: Gabapentin 100 mg PO TID 11/15/19 Glipizide [Glipizide ER] 1 tab PO BID 11/15/19 Insulin Detemir [Levemir Flextouch] 24 units SQ BID 11/15/19 buPROPion HCL [Wellbutrin*] 1 tab PO DAILY 11/15/19 Calcitrol [Rocaltrol*] 0.5 mcg PO DAILY #60 cap 11/19/19 Cholecalciferol (Vitamin D3) [Vitamin D 5,000 IU Cap*] 5,000 unit PO DAILY #30 cap 11/19/19 Cyanocobalamin [Vitamin B-12*] 1,000 mcg PO DAILY #90 tab 11/19/19 Furosemide [Lasix] 80 mg PO BID #60 tablet 11/19/19 Spironolactone [Aldactone*] 25 mg PO DAILY #30 tab 11/19/19 Ubidecarenone [Coenzyme Q10*] 200 mg PO DAILY #30 cap 11/19/19 carvediloL [Coreg*] 25 mg PO BID #60 tab 11/19/19 traMADol HCL [Ultram*] 50 mg PO TID PRN #15 tab 11/19/19 New Medications: Spironolactone [Aldactone*] 25 mg PO DAILY #30 tab Ubidecarenone [Coenzyme Q10*] 200 mg PO DAILY #30 cap carvediloL [Coreg*] 25 mg PO BID #60 tab Furosemide [Lasix] 80 mg PO BID #60 tablet Calcitrol [Rocaltrol*] 0.5 mcg PO DAILY #60 cap traMADol HCL [Ultram*] 50 mg PO TID PRN #15 tab PRN Reason: Pain Scale 2-4 (Mild) Cyanocobalamin [Vitamin B-12*] 1,000 mcg PO DAILY #90 tab Cholecalciferol (Vitamin D3) [Vitamin D 5,000 IU Cap*] 5,000 unit PO DAILY #30 cap Patient Discharge Instructions: 1. Recommend follow up with PCP in 1 week to follow up this hospitalization. 2. Patient presented with anasarca. Edema primarily to the lower extremities up to the thigh and scrotal region. Patient found to have acute on chronic diastolic CHF complicated with acute on chronic renal failure stage 4 likely related to cardiorenal syndrome. The patient required diuresis. Patient was educated on fluid restriction as well. Edema has significantly improved. This includes scrotal region. Echocardiogram revealed normal ejection fraction but significant pulmonary hypertension noted. Renal ultrasound showed no acute blockage. Patient has responded well to diuresis. At discharge patient will continue with a 1500 cc per day fluid restriction and low-salt diet. Patient is to elevate his legs when sitting or lying. He is to monitor his weight daily. If his weight increases by more than 5 lb he is to contact nephrology or PCP for further recommendation. At discharge patient will continue with Lasix 80 mg 1 pill twice daily and Aldactone 25 mg daily. Recommend to repeat lab-BMP in 1-2 weeks to monitor his progress. Recommend follow up with Nephrology to further monitor and address. Recommend follow up with pulmonology further address pulmonary hypertension. 3. As mentioned above patient with acute on chronic renal disease stage IV. Patient with cardiorenal syndrome. Patient was treated with diuretic therapy. This has improved. Nephrology was consulted and monitored his progress. At dis charge he will continue with Calcitrol 0.5 g daily, vitamin-D 5000 units daily. Recommend no further use of nonsteroidal anti-inflammatories. Future medications will need to be renally dose. Recommend to recheck lab-BMP in 1-2 weeks to monitors progress. Recommend follow up with nephrology as directed. Continue with fluid restriction as recommended above. 4. Patient with diabetes mellitus type 2 insulin dependent. A1c 6.6. Medications were adjusted in the course of his stay. Metformin was discontinued due to his acute on chronic renal failure. At discharge he will continue with his current medications including Levemir 24 units sc twice daily. Patient should consider discontinuing glipizide ER 10 mg daily as this may increase risk for hypoglycemia. For now will recommend to discontinue this. Recommend to maintain blood sugar less than 140 fasting and less than 200 after meals. Further adjustment can be done by his PCP. 5. Patient with pulmonary hypertension. At discharge patient will continue with his current medication carvedilol 25 mg 1 pill twice daily. Recommend to discontinue lisinopril at this time due to chronic renal disease. Recommend to maintain blood pressure less than 150/80. Further adjustment can be done by his PCP. Additional medication may be required. This can be further addressed by his PCP or nephrology. Recommend follow up with pulmonology to further address his pulmonary hypertension to consider treatment as an outpatient. 6. Patient with anemia of chronic disease. Patient found to have B12 deficiency. At discharge he will continue with B12 supplementation daily. Recommend to recheck lab-CBC, B12 in 2-4 weeks to monitors progress. Further adjustment can be done by his PCP. 7. Patient likely with underlying obstructive sleep apnea. BMI 45. Recommend follow up with pulmonology as an outpatient for further evaluation including sleep study. 8. Patient with chronic pain. Patient may continue with gabapentin 100 mg 3 times a day. A limited supply of tramadol 50 mg 1 pill twice daily as needed for pain will be provided. Diet: ADA (1500 cc per day fluid restriction and low-salt diet) Activity: Ad manuel Time spent managing pt's care (in minutes): 55
[2019-11-19] MEDS: COENZYME Q10- 200 MG CAP PO SCH (09:31)
[2019-11-19 09:36] VITALS: BP 185/81
[2019-11-19 10:33] VITALS: O2SAT 97
--- NOTE | 2019-11-19 10:42 | P.PN ---
Date of Service: 11/19/19 Vital Signs Temp Pulse Resp BP Pulse Ox 97.7 F 74 18 185/81 H 97 11/19/19 04:00 11/19/19 09:30 11/19/19 04:00 11/19/19 09:30 11/19/19 04:00 Medications Acetaminophen (Tylenol -Extra Strength) 500 mg PO Q4HP PRN PRN Reason: TEMP > 101' F Stop: 12/15/19 07:48 Hydrocodone Bitart/Acetaminophen ([place] 7.5/325 Mg) 1 tab PO Q6H PRN PRN Reason: Pain scale 5-7 (Moderate) Stop: 12/15/19 07:48 Last Admin: 11/19/19 09:27 Dose: 1 tab Documented by: Bumetanide (Bumex) 2 mg PO TID [facility] Stop: 12/19/19 14:01 Bupropion HCl (Wellbutrin) 100 mg PO DAILY [facility] Stop: 12/16/19 09:01 Last Admin: 11/19/19 09:30 Dose: 100 mg Documented by: Calcitriol (Rocaltrol) 0.5 mcg PO DAILY [facility] Stop: 12/16/19 09:01 Last Admin: 11/19/19 09:30 Dose: 0.5 mcg Documented by: Carvedilol (Coreg) 25 mg PO BID [facility] Stop: 12/16/19 09:01 Last Admin: 11/19/19 09:30 Dose: 25 mg Documented by: Cholecalciferol (Vitamin D 5,000 Iu Cap) 5,000 unit PO DAILY [facility] Stop: 12/16/19 09:01 Last Admin: 11/19/19 09:29 Dose: 5,000 unit Documented by: Coenzyme Q10 (Coenzyme Q10) 200 mg PO DAILY [facility] Stop: 12/15/19 18:01 Last Admin: 11/19/19 09:31 Dose: 200 mg Documented by: Cyanocobalamin (Vitamin B-12) 1,000 mcg PO DAILY [facility] Stop: 12/17/19 09:01 Last Admin: 11/19/19 09:29 Dose: 1,000 mcg Documented by: Dextrose (Dextrose 50% Syringe/Vial) 12.5 gm IV PRN PRN; Protocol PRN Reason: HYPOGLYCEMIA Stop: 12/15/19 07:48 Doxazosin Mesylate (Cardura) 2 mg PO BEDTIME [facility] Stop: 12/19/19 21:01 Gabapentin (Neurontin) 100 mg PO TID [facility] Stop: 12/16/19 09:01 Last Admin: 11/19/19 09:30 Dose: 100 mg Documented by: Glucagon (Glucagen) 1 mg IM 1X PRN; Protocol PRN Reason: HYPOGLYCEMIA Stop: 12/15/19 07:48 Heparin Sodium (Porcine) (Heparin 5,000 Units/Ml) 5,000 unit SQ Q12HR [facility] Stop: 12/15/19 09:01 Last Admin: 11/19/19 09:29 Dose: 5,000 unit Documented by: Hydralazine HCl (Apresoline) 10 mg IV Q6HP PRN PRN Reason: Titrate to SBP (MUST DEFINE) Stop: 12/15/19 07:48 Last Admin: 11/19/19 04:50 Dose: 10 mg Documented by: Insulin Glargine (Lantus) 10 units SQ BEDTIME [facility] Stop: 12/15/19 21:01 Last Admin: 11/18/19 20:28 Dose: 10 units Documented by: Insulin Human Regular (Novolin -R) 0 unit SQ ACHS [facility]; Protocol Stop: 12/15/19 07:48 Last Admin: 11/19/19 07:30 Dose: Not Given Documented by: Ondansetron HCl (Zofran) 4 mg IV Q6HP PRN PRN Reason: NAUSEA / VOMITING Stop: 12/15/19 07:48 Sodium Chloride (Normal Saline Flush) 10 ml IV BID [facility] Stop: 12/15/19 09:01 Last Admin: 11/19/19 09:31 Dose: 10 ml Documented by: Spironolactone (Aldactone) 25 mg PO DAILY [facility] Stop: 12/17/19 11:01 Last Admin: 11/19/19 09:30 Dose: 25 mg Documented by: Tramadol HCl (Ultram) 50 mg PO TID PRN PRN Reason: Pain scale 2-4 (Mild) Stop: 12/15/19 07:48 Last Admin: 11/18/19 16:14 Dose: 50 mg Documented by: Assessment/ Plan: Nephrology CPS stable without CP or SOB. Feeling better. Edema improving. Reports feeling deflated. No acute events overnight. Vitals, medications, blood work and imaging reviewed in the chart. General: In no apparent distress, Oriented x3, Cooperative HEENT: Atraumatic Neck: Supple, JVD distended Respiratory: Clear to auscultation bilaterally, Diminished Cardiovascular: Regular rate/rhythm, Edema Gastrointestinal: Soft and benign, Non-distended Musculoskeletal: No clubbing, No contractures Integumentary: No rashes, No cyanosis Neurological: Normal speech External genitalia: Edema Laboratory Data (last 24 hrs) 11/15/19 04:00: PT 12.9 H, INR 1.10 11/15/19 04:00: WBC 8.9, Hgb 8.6 L, Hct 25.7 L, Plt Count 228 11/15/19 04:00: Sodium 145, Potassium 5.4 H, BUN 44 H, Creatinine 2.91 H, Glucose 181 H, Magnesium 2.4, Total Bilirubin 0.3, AST 10 L, ALT 20, Alkaline Phosphatase 114 Imagings Data: EXAM DESCRIPTION: US - Renal Ultrasound-Complete - 11/15/2019 8:47 am CLINICAL HISTORY: . Acute/chronic renal failure COMPARISON: November 15, 2019 cat scan FINDINGS: The right kidney measures 9 cm with a normal echotexture. The left kidney measures 12 cm with a normal echotexture. Hydronephrosis is not seen. No gross abnormality of bladder IMPRESSION: Unremarkable renal ultrasound. EXAM DESCRIPTION: CT - Abdomen Pelvis Wo Contrast - 11/15/2019 4:47 am CLINICAL HISTORY: The patient is 54 years old and is Male; swelling testicles TECHNIQUE: Axial computed tomography images of the abdomen and pelvis without intravenous contrast. Sagittal and coronal reformatted images were created and reviewed. This CT exam was performed using one or more of the following dose reduction techniques: automated exposure control, adjustment of the mA and/or kV according to patient size, and/or use of iterative reconstruction technique. COMPARISON: No relevant prior studies available. FINDINGS: Lung bases: Unremarkable. No mass. No consolidation. Pleural space: Thickening of the intralobular septa in the lung bases, with patchy groundglass opacities. Trace bilateral pleural fluid. ABDOMEN: Liver: Unremarkable. Gallbladder and bile ducts: Unremarkable. No calcified stones. No ductal dilation. Pancreas: Unremarkable. No ductal dilation. Spleen: Unremarkable. No splenomegaly. Adrenals: Unremarkable. No mass. Kidneys and ureters: No nephrolithiasis, hydronephrosis or ureter stone. Stomach and bowel: No bowel dilatation or obstruction. No bowel wall thickening. PELVIS: Appendix: The visualized appendix is normal. No pericecal inflammation to suggest acute appendicitis. Bladder: Unremarkable. No stones. Reproductive: Unremarkable as visualized. ABDOMEN and PELVIS: Intraperitoneal space: Unremarkable. No free air. No significant fluid collection. Bones/joints: Schmorl's nodes at multiple levels in the lower thoracic spine. No acute fracture identified. No dislocation. Soft tissues: Large body habitus. Subcutaneous edema. Diffuse scrotal swelling and edema. Vasculature: Unremarkable. No abdominal aortic aneurysm. Lymph nodes: No pathologically enlarged lymph nodes. IMPRESSION: 1. Findings in the lung bases are suggestive of mild fluid overload. 2. Large body habitus. Subcutaneous edema. Diffuse scrotal swelling and edema. 3. No acute obstructive or inflammatory process identified in the abdomen or pelvis. Normal appendix. Conclusions/Impression: A/ PORFIRIO likely CRS. CKD IV with proteinuria Hyperkalemia Hypocalcemia Hematuria HTN with CKD/ CHF. Systolic CHF, A/C with anasarca. DM II with CKD Iron deficiency anemia MELONY/ Secondary HyperPTH P/ Continue current POC and Medications. Change Lasix IV to Bumex 2mg TID. Start Doxazosin 2mg qhs. May benefit from IV iron. Low sodium diet. No NSAIDs. AM labs prn. Daily weight. Will need a nephrology follow up.
[2019-11-19 11:15] VITALS: BMI 45.3
[2019-11-19 12:37] LABS: HIV AG/AB 4TH GEN Non-reactive (Non-reactive)
[2019-11-19] MEDS ORDERED: BUMETANIDE 1 MG TABLET PO SCH (14:00)
[2019-11-19] MEDS ORDERED: DOXAZOSIN 2 MG TAB PO SCH (21:00)
== END 2019-11-19 13:50 | disposition home or self-care (01) | DRG 291 ==
LOC: ER 02:19 → ERHOLD 06:37 → 2ND 13:28
PROVIDERS: ADMIT Family Medicine; ATTEND Family Medicine
DX: I13.0 Hypertensive heart and chronic kidney disease with heart failure and stage 1 through stage 4 chronic kidney disease, or unspecified chronic kidney disease (principal); I50.33 Acute on chronic diastolic (congestive) heart failure; N18.4 Chronic kidney disease, stage 4 (severe); N17.9 Acute kidney failure, unspecified; Z68.42 Body mass index [BMI] 45.0-49.9, adult; N25.81 Secondary hyperparathyroidism of renal origin; E66.01 Morbid (severe) obesity due to excess calories; F41.8 Other specified anxiety disorders; D63.8 Anemia in other chronic diseases classified elsewhere; E11.22 Type 2 diabetes mellitus with diabetic chronic kidney disease; R80.9 Proteinuria, unspecified; E87.5 Hyperkalemia; E83.51 Hypocalcemia; R31.9 Hematuria, unspecified; D50.9 Iron deficiency anemia, unspecified; N25.0 Renal osteodystrophy; G47.33 Obstructive sleep apnea (adult) (pediatric); D51.9 Vitamin B12 deficiency anemia, unspecified; G89.29 Other chronic pain; M54.9 Dorsalgia, unspecified; I27.20 Pulmonary hypertension, unspecified; Z79.4 Long term (current) use of insulin; Z79.899 Other long term (current) drug therapy; Z11.59 Encounter for screening for other viral diseases
CPT/HCPCS: 36415; 71045; 74176; 76770; 80048; 80074; 80076; 81001; 81003; 81015; 82550; 82553; 82565; 82607; 82728; 82947; 83036; 83540; 83735; 83880; 84439; 84443; 84466; 84484; 84550; 85025; 85610; 86335; 87086; 87088; 87389; 93306; 99284; J0360; J1644; J1815; J1940; J3420; U0002

== ENCOUNTER 2020-03-19 06:06 | Emergency (ER) | payer OTHER ==
[2020-03-19] MEDS ORDERED: ACETAMINOPHEN 500 MG TAB ONE (06:49)
[2020-03-19] MEDS ORDERED: cloNIDine HCL 0.1 MG TAB ONE (06:49)
--- NOTE | 2020-03-19 07:47 | ER ---
Nurse's Notes [facility] Name: Wild Koenig Age: 54 yrs Sex: Male : 1965 Arrival Date: 03/19/2020 Time: 06:06 Bed 6 Private MD: Diagnosis: Headache;Fall due to bumping against object;Type 1 diabetes mellitus Presentation: 03/19 06:14 Chief complaint: EMS states: he fell last Sat and hit head/left eye aspect on the couch mg2 due to loss of balance. he had a recent eye surgery for diabetic neuropathy on his left eye. Coronavirus screen: Client denies travel out of the [place] in the last 14 days. At this time, the client does not indicate any symptoms associated with coronavirus-19. Ebola Screen: No symptoms or risks identified at this time. Initial Sepsis Screen: Does the patient meet any 2 criteria? No. Patient's initial sepsis screen is negative. Does the patient have a suspected source of infection? No. Patient's initial sepsis screen is negative. Risk Assessment: Do you want to hurt yourself or someone else? Patient reports no desire to harm self or others. Onset of symptoms was March 2020. 06:14 Method Of Arrival: EMS: [facility] 06:14 Acuity: MYNOR 3 mg2 Triage Assessment: 07:00 Pain: Also complains of photophobia. bp 07:00 Headache History: The patient has had previous headaches and this one is similar to bp previous episodes. General: Appears distressed, uncomfortable. General: Behavior is calm, cooperative, appropriate for age. Historical: - Allergies: 06:17 No Known Allergies; mg2 - Home Meds: 06:17 gabapentin Oral [Active]; Glipizide Oral [Active]; Insulin: Regular Sub-Q [Active]; mg2 Hydroxyzine Oral [Active]; lisinopril Oral [Active]; Metformin Oral [Active]; Wellbutrin Oral [Active]; - PMHx: 06:17 Anxiety; chronic back pain; Depression; Diabetes - IDDM; Diabetes - NIDDM; Hypertension;mg2 - PSHx: 06:17 eye sx; mg2 - Immunization history:: Flu vaccine status is unknown. - Social history:: Smoking status: Patient denies any tobacco usage or history of. Patient/guardian denies using alcohol, street drugs, IV drugs. Screenin:19 Abuse screen: Denies threats or abuse. Denies injuries from another. Nutritional mg2 screening: No deficits noted. Tuberculosis screening: No symptoms or risk factors identified. Fall Risk Fall in past 12 months (25 points). Assessment: 06:17 General: Appears in no apparent distress. comfortable, Behavior is calm, cooperative. mg2 Pain: Complains of pain in left side of the forehead Pain currently is 5 out of 10 on a pain scale. Quality of pain is described as aching, Pain began gradually. Neuro: Level of Consciousness is awake, alert, obeys commands, Oriented to person, place, time, situation. Cardiovascular: Capillary refill < 3 seconds Patient's skin is warm and dry. Respiratory: Airway is patent Respiratory effort is even, unlabored, Respiratory pattern is regular, symmetrical. GI: No signs and/or symptoms were reported involving the gastrointestinal system. : No signs and/or symptoms were reported regarding the genitourinary system. EENT: No signs and/or symptoms were reported regarding the EENT system. Derm: Skin is intact, is healthy with good turgor, Skin is pink, warm \T\ dry. normal. Musculoskeletal: Circulation, motion, and sensation intact. Capillary refill < 3 seconds. 07:00 Reassessment: RECD REPORT FROM TIFFANIE PETIT. 54YO HM P/W MOLINA S/P FALL. RECENT H/O LEFT bp EYE SURGERY. 08:00 Reassessment: D/C ON HOLD FOR RAD RESULTS. bp 08:57 Reassessment: PT D/C HOME VIA W/C WITH FAMILY, DX WITH S/P FALL. bp Vital Signs: 06:14 BP 199 / 53; Pulse 69; Resp 18; Temp 97.1; Pulse Ox 97% on R/A; Weight 133.36 kg; mg2 Height 5 ft. 10 in. (177.80 cm); 06:19 BP 181 / 62; mg2 07:19 BP 198 / 66; Pulse 65; Resp 17; Pulse Ox 99% ; bp 08:57 BP 166 / 69; Pulse 67; Resp 17; Temp 97.5; Pulse Ox 99% ; bp 06:14 Body Mass Index 42.18 (133.36 kg, 177.80 cm) mg2 Yojana Coma Score: 07:42 Eye Response: spontaneous(4). Verbal Response: oriented(5). Motor Response: obeys bernice commands(6). Total: 15. ED Course: 06:06 Patient arrived in ED. cl3 06:14 Ben Morales, RN is Primary Nurse. mg2 06:16 Triage completed. mg2 06:17 Arm band placed on. mg2 06:18 Gautam Mukherjee MD is Attending Physician. tw4 06:19 Patient has correct armband on for positive identification. mg2 06:19 No provider procedures requiring assistance completed. mg2 07:00 CT Head Brain wo Cont In Process Unspecified. EDMS 07:06 Primary Nurse role handed off by Ben Morales RN bp 07:06 Javier Vicente, RN is Primary Nurse. bp 07:14 Attending Physician role handed off by Gautam Mukherjee MD cha 07:14 James Severino MD is Attending Physician. bernice 08:15 Patient did not have IV access during this emergency room visit. Wound care: to bp abrasion, located on right leg and left leg was cleaned with dressed with Neosporin, Patient tolerated well. Administered Medications: 06:37 Drug: Tylenol 1000 mg Route: PO; mg2 07:32 Follow up: Response: No adverse reaction bp 06:38 Drug: cloNIDine 0.2 mg Route: PO; mg2 07:32 Follow up: Response: No adverse reaction bp 07:45 Drug: Bactroban Ointment 2 % 1 application Route: Topical; Site: affected area; bp Outcome: 07:46 Discharge ordered by MD. bernice 08:58 Discharged to home via wheelchair, with family. bp 08:58 Condition: stable 08:58 Discharge instructions given to patient, Instructed on discharge instructions, follow up and referral plans. medication usage, wound care, Demonstrated understanding of instructions, follow-up care, medications, wound care, Prescriptions given X 1. 09:19 Patient left the ED. bp Signatures: Dispatcher [employer] [facility] James Severino MD MD cha Peltier, Brian, RN RN Gautam Rebolledo MD MD [facility] Ben Moralse RN RN [facility] Aidan Paul cl3
--- NOTE | 2020-03-19 07:47 | EDPHYS ---
Physician Documentation [facility] Name: Wild Koenig Age: 54 yrs Sex: Male : 1965 Arrival Date: 03/19/2020 Time: 06:06 Bed 6 Private MD: TACOS Physician James Severino HPI: 03/19 06:50 This 54 yrs old Male presents to ER via EMS with complaints of Headache. tw4 06:50 The patient complains of pain to the forehead. The patient describes the headache as tw4 pounding. Onset: The symptoms/episode began/occurred 5 day(s) ago. Associated signs and symptoms: The patient has no apparent associated signs or symptoms. Severity of symptoms: At its worst the pain was moderate. pt states that he fell and hit his head 5 day ago. Pt denies LOC and continues to complain of pain. Historical: - Allergies: 06:17 No Known Allergies; mg2 - Home Meds: 06:17 gabapentin Oral [Active]; Glipizide Oral [Active]; Insulin: Regular Sub-Q [Active]; mg2 Hydroxyzine Oral [Active]; lisinopril Oral [Active]; Metformin Oral [Active]; Wellbutrin Oral [Active]; - PMHx: 06:17 Anxiety; chronic back pain; Depression; Diabetes - IDDM; Diabetes - NIDDM; Hypertension;mg2 - PSHx: 06:17 eye sx; mg2 - Immunization history:: Flu vaccine status is unknown. - Social history:: Smoking status: Patient denies any tobacco usage or history of. Patient/guardian denies using alcohol, street drugs, IV drugs. ROS: 06:50 Constitutional: Negative for fever, chills, and weight loss, Eyes: Negative for injury, tw4 pain, redness, and discharge, Cardiovascular: Negative for chest pain, palpitations, and edema, Respiratory: Negative for shortness of breath, cough, wheezing, and pleuritic chest pain, Abdomen/GI: Negative for abdominal pain, nausea, vomiting, diarrhea, and constipation, Back: Negative for injury and pain, MS/Extremity: Negative for injury and deformity, Skin: Negative for injury, rash, and discoloration. 06:50 Neuro: Positive for headache, Negative for altered mental status, dizziness, gait disturbance, tinnitus, tremor. Exam: 06:50 Constitutional: This is a well developed, well nourished patient who is awake, alert, tw4 and in no acute distress. Head/Face: Normocephalic, atraumatic. Eyes: Pupils equal round and reactive to light, extra-ocular motions intact. Lids and lashes normal. Conjunctiva and sclera are non-icteric and not injected. Cornea within normal limits. Periorbital areas with no swelling, redness, or edema. Chest/axilla: Normal chest wall appearance and motion. Nontender with no deformity. No lesions are appreciated. Cardiovascular: Regular rate and rhythm with a normal S1 and S2. No gallops, murmurs, or rubs. Normal PMI, no JVD. No pulse deficits. Respiratory: Lungs have equal breath sounds bilaterally, clear to auscultation and percussion. No rales, rhonchi or wheezes noted. No increased work of breathing, no retractions or nasal flaring. Abdomen/GI: Soft, non-tender, with normal bowel sounds. No distension or tympany. No guarding or rebound. No evidence of tenderness throughout. Back: No spinal tenderness. No costovertebral tenderness. Full range of motion. MS/ Extremity: Pulses equal, no cyanosis. Neurovascular intact. Full, normal range of motion. Neuro: Awake and alert, GCS 15, oriented to person, place, time, and situation. Cranial nerves II-XII grossly intact. Motor strength 5/5 in all extremities. Sensory grossly intact. Cerebellar exam normal. Normal gait. Vital Signs: 06:14 BP 199 / 53; Pulse 69; Resp 18; Temp 97.1; Pulse Ox 97% on R/A; Weight 133.36 kg; mg2 Height 5 ft. 10 in. (177.80 cm); 06:19 BP 181 / 62; mg2 07:19 BP 198 / 66; Pulse 65; Resp 17; Pulse Ox 99% ; bp 08:57 BP 166 / 69; Pulse 67; Resp 17; Temp 97.5; Pulse Ox 99% ; bp 06:14 Body Mass Index 42.18 (133.36 kg, 177.80 cm) mg2 Yojana Coma Score: 07:42 Eye Response: spontaneous(4). Verbal Response: oriented(5). Motor Response: obeys bernice commands(6). Total: 15. MDM: 06:18 Patient medically screened. tw4 07:15 Patient medically screened. [facility] 07:42 Differential diagnosis: hypoglycemia, migraine, subarachnoid bleed, subdural hematoma, bernice temporal arteritis. Data reviewed: vital signs, nurses notes, radiologic studies, CT scan. Data interpreted: youth nutritional monitor: rate is 65 beats/min, rhythm is regular, Pulse oximetry: on room air is 99 %. Test interpretation: by ED physician or midlevel provider:. Counseling: I had a detailed discussion with the patient and/or guardian regarding: the historical points, exam findings, and any diagnostic results supporting the discharge/admit diagnosis, lab results. 03/19 07:42 Order name: Glucose, Ancillary Testing [facility] 03/19 06:26 Order name: CT Head Brain wo Cont tw4 03/19 07:25 Order name: Wound Care; Complete Time: 08:15 [facility] 03/19 07:25 Order name: Blood Glucose Level; Complete Time: 07:31 [facility] Administered Medications: 06:37 Drug: Tylenol 1000 mg Route: PO; mg2 07:32 Follow up: Response: No adverse reaction bp 06:38 Drug: cloNIDine 0.2 mg Route: PO; mg2 07:32 Follow up: Response: No adverse reaction bp 07:45 Drug: Bactroban Ointment 2 % 1 application Route: Topical; Site: affected area; bp Disposition: 03/19/20 07:46 Discharged to Home. Impression: Headache, Fall due to bumping against object, Type 1 diabetes mellitus. - Condition is Stable. - Discharge Instructions: Type 1 Diabetes Mellitus, Diagnosis, Adult, Head Injury, Adult, Diabetes Mellitus and Food, Head Injury, Adult, [id number]. - Prescriptions for Bactroban 2 % Topical Ointment - Apply to affected area 1 application by TOPICAL route every 12 hours; 30 gram. - Medication Reconciliation Form, Thank You Letter, Antibiotic Education, Prescription Opioid Use form. - Follow up: Private Physician; When: 2 - 3 days; Reason: Recheck today's complaints, Continuance of care, Re-evaluation by your physician. - Problem is new. - Symptoms have improved. Signatures: Dispatcher [employer] [facility] James Severino MD MD cha Peltier, Brian, RN RN bp Gautam Mukherjee MD MD 4 Ben Morales RN RN mg2 Corrections: (The following items were deleted from the chart) 09:19 07:46 03/19/2020 07:46 Discharged to Home. Impression: Headache; Fall due to bumping bp against object; Type 1 diabetes mellitus. Condition is Stable. Forms are Medication Reconciliation Form, Thank You Letter, Antibiotic Education, Prescription Opioid Use. Follow up: Private Physician; When: 2 - 3 days; Reason: Recheck today's complaints, Continuance of care, Re-evaluation by your physician. Problem is new. Symptoms have improved. bernice
[2020-03-19] MEDS ORDERED: MUPIROCIN 2% OINT 22GM TUBE TOP ONE (08:19)
--- NOTE | 2020-03-19 08:22 | RAD REPORT ---
EXAM DESCRIPTION: CT - Head Brain Wo Cont - 03/19/2020 7:00 am CLINICAL HISTORY: HEADACHE Trauma, head injury COMPARISON: No comparisons TECHNIQUE: All CT scans are performed using dose optimization technique as appropriate and may inclu de automated exposure control or mA/KV adjustment according to patient size. FINDINGS: No intracranial hemorrhage, hydrocephalus or extra-axial fluid collection.No areas of brai n edema or evidence of midline shift. The paranasal sinuses and mastoids are clear. The calvarium is intact. Soft tissue swelling is seen w ith linear hyperdensity within the left vitreous presumably related to recent surgical intervention i n the left globe. Clinical correlation is advised. IMPRESSION: No acute intracranial abnormality.
[2020-03-21 01:37] VITALS: O2SAT 99
[2020-03-21 01:38] VITALS: BP 166/69; TEMP 97.5
== END 2020-03-19 09:19 | disposition home or self-care (01) ==
LOC: ER 06:06
DX: R51.9 Headache, unspecified (principal); E10.9 Type 1 diabetes mellitus without complications; W18.00XA Striking against unspecified object with subsequent fall, initial encounter; Y93.9 Activity, unspecified; Y92.9 Unspecified place or not applicable; Z79.4 Long term (current) use of insulin; I10 Essential (primary) hypertension; F41.8 Other specified anxiety disorders
CPT/HCPCS: 70450; 82947; 99284

== ENCOUNTER 2020-07-14 10:24 | Emergency (ER) | payer OTHER ==
[2020-07-14] MEDS ORDERED: TETANUS & DIPHTHERIA TOX,ADULT 0.5 ML VIAL ONE (11:28)
[2020-07-14 11:38] LABS: Absolute Lymphocytes (CBC) 1.5 K/uL (0.7-4.9); Basophils % 0.6 % (0-1.3); Hematocrit 27.4 % (39.6-49.0); Lymphocytes % 18.2 % (15.3-44.8)
[2020-07-14 11:52] LABS: Albumin 2.7 g/dL (3.4-5.0); Bilirubin Total 0.2 mg/dL (0.2-1.0); Potassium 4.5 mmol/L (3.5-5.1); Protein, Total 7.1 g/dL (6.4-8.2)
[2020-07-14] MEDS ORDERED: VANCOMYCIN/NS 1 gm 1 GM/250 ML BAG IV ONE (12:45)
[2020-07-14] MEDS ORDERED: NA CHLORIDE 0.9% 500 ML ONE (12:59)
[2020-07-14] MEDS ORDERED: HYDROCODONE/APAP 10/325 TAB ONE (12:59)
--- NOTE | 2020-07-14 13:33 | ER ---
Nurse's Notes [facility] Name: Wild Koenig Age: 55 yrs Sex: Male : 1965 Arrival Date: 07/14/2020 Time: 10:26 Bed 30 Private MD: Diagnosis: Cellulitis of left lower limb;Chronic kidney disease, unspecified Presentation: 07/14 10:35 Chief complaint: Patient states: pt has had wounds on left leg X 2 weeks, has had iw increased pain over past few days. Coronavirus screen: At this time, the client does not indicate any symptoms associated with coronavirus-19. Ebola Screen: Patient negative for fever greater than or equal to 101.5 degrees Fahrenheit, and additional compatible Ebola Virus Disease symptoms Patient denies exposure to infectious person. Patient denies travel to an Ebola-affected area in the 21 days before illness onset. No symptoms or risks identified at this time. Initial Sepsis Screen: Does the patient meet any 2 criteria? No. Patient's initial sepsis screen is negative. Does the patient have a suspected source of infection? No. Patient's initial sepsis screen is negative. Risk Assessment: Do you want to hurt yourself or someone else? Patient reports no desire to harm self or others. Onset of symptoms was July 01, 2020. 10:35 Method Of Arrival: Ambulatory iw 10:35 Acuity: MYNOR 3 iw Historical: - Allergies: 11:11 No Known Allergies; iw 10:35 No Known Allergies; aa5 - PMHx: 10:35 Anxiety; chronic back pain; Depression; Diabetes - IDDM; Hypertension; aa5 - PSHx: 10:35 eye sx; aa5 - Immunization history:: Adult Immunizations unknown. - Social history:: Smoking status: Patient denies any tobacco usage or history of. Screenin:00 Abuse screen: Denies threats or abuse. Denies injuries from another. Nutritional jl7 screening: No deficits noted. Tuberculosis screening: No symptoms or risk factors identified. Fall Risk IV access (20 points). Ambulatory Aid- Crutches/Cane/Walker (15 pts). Gait- Impaired (20 pts.). Mental Status- Oriented to own ability (0 pts). Total Ocasio Fall Scale indicates High Risk Score (45 or more points). Fall prevention measures have been instituted. Side Rails Up X 2 Placed Close to Nursing Station Frequent Obs/Assessments Occuring Family Present and informed to notify staff if the need to leave the bedside As available patient and family educated on Fall Prevention Program and Strategies. Assessment: 10:40 General: Appears comfortable, Behavior is calm, cooperative. Pain: Complains of pain in aa5 left leg. Neuro: Level of Consciousness is awake, alert, obeys commands, Oriented to person, place, time, situation, Appropriate for age. Cardiovascular: Heart tones S1 S2 present Rhythm is regular. Respiratory: Airway is patent Respiratory effort is even, unlabored, Respiratory pattern is regular, symmetrical. GI: Abdomen is obese. : No signs and/or symptoms were reported regarding the genitourinary system. EENT: No signs and/or symptoms were reported regarding the EENT system. Derm: Skin is pink, warm \T\ dry. Redness noted to leyla lower legs. Multiple small scabs noted to leyla lower extremities. Scab noted to left lower leg that is approximately 1-2in in size. Musculoskeletal: Range of motion: intact in all extremities. 12:44 Reassessment: Pt resting in bed with eyes closed, respirations even and unlabored, skin aa5 is pink/warm/dry. Extra warm blankets provided for comfort. . 13:22 Reassessment: Pt assisted to restroom, pt voided. Pt assisted back to the room, placed aa5 back in bed, side rails x 2, call moore within reach. . 14:25 Reassessment: Pt resting in bed with eyes closed, Awaiting Vancomycin infusion to aa5 complete. . 16:11 Reassessment: Patient appears in no apparent distress at this time. Patient and/or iw family updated on plan of care and expected duration. Pain level reassessed. Patient is alert, oriented x 3, equal unlabored respirations, skin warm/dry/pink. Vital Signs: 10:35 BP 165 / 76; Pulse 62; Resp 16 S; Temp 98.5(O); Pulse Ox 98% on R/A; Weight 135.62 kg aa5 (R); 11:54 BP 146 / 53; Pulse 62; Resp 15; Pulse Ox 98% ; jl7 13:30 BP 135 / 65; Pulse 65; Resp 18 S; Pulse Ox 98% on R/A; aa5 16:11 BP 145 / 72; Pulse 67; Resp 16; Pulse Ox 98% on R/A; iw ED Course: 10:26 Patient arrived in ED. am2 10:34 Lucila Haddad, RN is Primary Nurse. aa5 10:35 Arm band placed on Patient placed in an exam room, on a stretcher. aa5 10:55 Kimo Angulo NP is PHCP. pm1 10:55 James Severino MD is Attending Physician. pm1 11:00 Patient has correct armband on for positive identification. Bed in low position. Call jl7 light in reach. Side rails up X2. Pulse ox on. NIBP on. Warm blanket given. 11:03 Triage completed. iw 11:30 Initial lab(s) drawn, by me, sent to lab. Inserted saline lock: 22 gauge in right hand, jl7 using aseptic technique. Blood collected. 16:11 No provider procedures requiring assistance completed. IV discontinued, intact, iw bleeding controlled, No redness/swelling at site. Pressure dressing applied. Administered Medications: 11:29 Drug: Tetanus-Diphtheria Toxoid Adult 0.5 ml {[employer] Spreader: [employer]. Exp: jl7 07/19/2021. Lot #: [id number]. } Route: IM; Site: right deltoid; 12:44 Follow up: Response: No adverse reaction aa5 12:44 Drug: NS 0.9% 500 ml Route: IV; Rate: bolus; Site: right hand; aa5 12:44 Drug: [place] (HYDROcodone-acetaminophen) 10 mg-325 mg 1 tabs Route: PO; aa5 14:28 Follow up: Response: No adverse reaction aa5 13:23 Drug: vancoMYCIN 1 grams Route: IVPB; Infused Over: 2 hrs; Site: right hand; aa5 Outcome: 13:32 Discharge ordered by MD. pm1 16:11 Discharged to home via wheelchair, with family. iw 16:11 Condition: good 16:11 Discharge instructions given to patient, Instructed on discharge instructions, follow up and referral plans. medication usage, Demonstrated understanding of instructions, follow-up care, medications, Prescriptions given X 4. 16:12 Patient left the ED. iw Signatures: Ana Hubbard RN RN iw Lucila Haddad, MARISABEL RN aa5 Kimo Angulo, JORGE L REEL REPAIRER pm1 Malu Villa RN RN jl7 Trish Camejo am2
--- NOTE | 2020-07-14 13:34 | EDPHYS ---
Physician Documentation [facility] Name: Wild Koenig Age: 55 yrs Sex: Male : 1965 Arrival Date: 07/14/2020 Time: 10:26 Bed 30 Private MD: ED Physician James Severino HPI: 07/14 12:06 This 55 yrs old Male presents to ER via Ambulatory with complaints of Wound pm1 Check. 12:06 Patient is presenting to the ER for evaluation of wound to left lower leg. Description: pm1 The affected area is approximately 3 cm(s), circular. Onset: The symptoms/episode began/occurred at an unknown time. Possible cause(s): unknown. Associated signs and symptoms: Pertinent negatives: discharge, drainage, fever. Modifying factors: the symptoms are alleviated by nothing, the symptoms are aggravated by nothing. Severity of symptoms: in the emergency department the symptoms are unchanged. The patient has not recently seen a physician, has an appointment scheduled, Next week for cataract surgery. Historical: - Allergies: 11:11 No Known Allergies; iw 10:35 No Known Allergies; aa5 - PMHx: 10:35 Anxiety; chronic back pain; Depression; Diabetes - IDDM; Hypertension; aa5 - PSHx: 10:35 eye sx; aa5 - Immunization history:: Adult Immunizations unknown. - Social history:: Smoking status: Patient denies any tobacco usage or history of. ROS: 12:06 Constitutional: Negative for fever, chills, and weight loss, Cardiovascular: Negative pm1 for chest pain, palpitations, and edema, Respiratory: Negative for shortness of breath, cough, wheezing, and pleuritic chest pain, Abdomen/GI: Negative for abdominal pain, nausea, vomiting, diarrhea, and constipation, MS/Extremity: Negative for injury and deformity. 12:06 Neuro: Negative for headache, weakness, numbness, tingling, and seizure. 12:06 Skin: Positive for cellulitis. Exam: 12:06 Constitutional: This is a well developed, well nourished patient who is awake, alert, pm1 and in no acute distress. 12:06 MS/ Extremity: Pulses equal, no cyanosis. Neurovascular intact. Full, normal range of motion. 12:06 Cardiovascular: Exam negative for acute changes, Rate: normal, Rhythm: regular, Pulses: no pulse deficits are appreciated, Edema: is not appreciated. 12:06 Respiratory: Exam negative for acute changes, respiratory distress, shortness of breath. 12:06 Skin: Appearance: normal except for affected area, cellulitis, that is mild, on the lateral aspect of left calf, with central abrasion 3 cm oval shaped without any discharge. 12:06 Neuro: Exam negative for acute changes, Orientation: is normal, Mentation: is normal, Motor: is normal, moves all fours. Vital Signs: 10:35 BP 165 / 76; Pulse 62; Resp 16 S; Temp 98.5(O); Pulse Ox 98% on R/A; Weight 135.62 kg aa5 (R); 11:54 BP 146 / 53; Pulse 62; Resp 15; Pulse Ox 98% ; jl7 13:30 BP 135 / 65; Pulse 65; Resp 18 S; Pulse Ox 98% on R/A; aa5 16:11 BP 145 / 72; Pulse 67; Resp 16; Pulse Ox 98% on R/A; iw MDM: 10:59 Patient medically screened. [facility] 12:26 Data reviewed: vital signs. Data interpreted: Pulse oximetry: on room air is 98 %. pm1 Interpretation: normal. 13:32 Counseling: I had a detailed discussion with the patient and/or guardian regarding: the pm1 historical points, exam findings, and any diagnostic results supporting the discharge/admit diagnosis, lab results, the need for outpatient follow up, to return to the emergency department if symptoms worsen or persist or if there are any questions or concerns that arise at home. 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 Exp: jl7 07/19/2021. Lot #: [id number]. } Route: IM; Site: right deltoid; 12:44 Follow up: Response: No adverse reaction aa5 12:44 Drug: NS 0.9% 500 ml Route: IV; Rate: bolus; Site: right hand; aa5 12:44 Drug: Derby (HYDROcodone-acetaminophen) 10 mg-325 mg 1 tabs Route: PO; aa5 14:28 Follow up: Response: No adverse reaction aa5 13:23 Drug: vancoMYCIN 1 grams Route: IVPB; Infused Over: 2 hrs; Site: right hand; aa5 Disposition: 07/14/20 13:32 Discharged to Home. Impression: Cellulitis of left lower limb, Chronic kidney disease, unspecified. - Condition is Stable. - Discharge Instructions: Cellulitis, Adult, Chronic Kidney Disease, Adult, Preventing Chronic Kidney Disease. - Prescriptions for Augmentin 875- 125 mg Oral Tablet - take 1 tablet by ORAL route every 12 hours for 10 days; 20 tablet. Doxycycline Hyclate 100 mg Oral Tablet - take 1 tablet by ORAL route every 12 hours; 20 tablet. Bactroban 2 % Topical Ointment - Apply to affected area 1 application by TOPICAL route every 12 hours; 30 gram. Tylenol- Codeine #3 300-30 mg Oral Tablet - take 2 tablets by ORAL route every 4-6 hours As needed; 20 tablet. - Medication Reconciliation Form, Thank You Letter, Antibiotic Education, Prescription Opioid Use form. - Follow up: Emergency Department; When: As needed; Reason: Worsening of condition. Follow up: Private Physician; When: 2 - 3 days; Reason: Recheck today's complaints, Continuance of care, Re-evaluation by your physician. - Problem is new. - Symptoms have improved. Addendum: 07/16/2020 06:47 Co-signature as Attending Physician, James Severino MD I agree with the assessment and c pickett plan of care. Signatures: Dispatcher [employer] EDJames Navarro MD MD cha Williams, Irene, RN RN iw Lucila Haddad RN RN aa5 Kimo Angulo, POWER TONG OPERATOR POWER TONG OPERATOR pm1 Malu Villa RN RN jl7 Corrections: (The following items were deleted from the chart) 07/14 13:33 13:32 07/14/2020 13:32 Discharged to Home. Impression: Cellulitis of left lower limb. pm1 Condition is Stable. Forms are Medication Reconciliation Form, Thank You Letter, Antibiotic Education, Prescription Opioid Use. Follow up: Emergency Department; When: As needed; Reason: Worsening of condition. Follow up: Private Physician; When: 2 - 3 days; Reason: Recheck today's complaints, Continuance of care, Re-evaluation by your physician. Problem is new. Symptoms have improved. pm1 16:12 13:33 07/14/2020 13:32 Discharged to Home. Impression: Cellulitis of left lower limb; iw Chronic kidney disease, unspecified. Condition is Stable. Discharge Instructions: Cellulitis, Adult. Prescriptions for Augmentin 875-125 mg Oral Tablet - take 1 tablet by ORAL route every 12 hours for 10 days; 20 tablet, Doxycycline Hyclate 100 mg Oral Tablet - take 1 tablet by ORAL route every 12 hours; 20 tablet, Bactroban 2 % Topical Ointment - Apply to affected area 1 application by TOPICAL route every 12 hours; 30 gram, Tylenol-Codeine #3 300-30 mg Oral Tablet - take 2 tablets by ORAL route every 4-6 hours As needed; 20 tablet. and Forms are Medication Reconciliation Form, Thank You Letter, Antibiotic Education, Prescription Opioid Use. Follow up: Emergency Department; When: As needed; Reason: Worsening of condition. Follow up: Private Physician; When: 2 - 3 days; Reason: Recheck today's complaints, Continuance of care, Re-evaluation by your physician. Problem is new. Symptoms have improved. pm1
[2020-07-14 16:23] VITALS: TEMP 98.5; O2SAT 98
[2020-07-14 16:27] VITALS: BP 145/72
== END 2020-07-14 16:12 | disposition home or self-care (01) ==
LOC: ER 10:24
DX: L03.116 Cellulitis of left lower limb (principal); E11.22 Type 2 diabetes mellitus with diabetic chronic kidney disease; I12.9 Hypertensive chronic kidney disease with stage 1 through stage 4 chronic kidney disease, or unspecified chronic kidney disease; N18.9 Chronic kidney disease, unspecified; Z23 Encounter for immunization
CPT/HCPCS: 85025; 36415; 83605; 80053; 84145; 90714; J3370; J7040; 90471; 96374; 99284

== ENCOUNTER 2020-12-24 03:15 | Inpatient (IN) | payer OTHER ==
[2020-12-24 03:58] LABS: Absolute Lymphocytes (CBC) 0.9 K/uL (0.7-4.9); Basophils % 0.4 % (0-1.3); Hematocrit 22.4 % (39.6-49.0); Lymphocytes % 9.2 % (15.3-44.8); MPV 8.2 fL (7.6-11.3); RBC Red Blood Cell Count 2.55 M/uL (4.33-5.43)
[2020-12-24 04:09] LABS: Protime INR 1.03
--- NOTE | 2020-12-24 04:09 | ER ---
Nurse's Notes [facility] Name: Wild Koenig Age: 55 yrs Sex: Male : 1965 Arrival Date: 12/24/2020 Time: 03:16 Bed 20 Private MD: Diagnosis: Dyspnea;Morbid (severe) obesity due to excess calories;Type 1 diabetes mellitus with hyperglycemia;Chronic kidney disease, stage 4 (severe);Venous insufficiency (chronic) (peripheral);Anemia, unspecified Presentation: 12/24 03:19 Chief complaint: Patient states: Pt reports increased SOB over the past 2 days. States wg increased bilat edema in legs with reddness and signs of cellulitis. Pt reports being blind and a hx of CHF. Blood sugar 170 in the field. Coronavirus screen: Vaccine status: Patient reports receiving the 2nd dose of the covid vaccine. Client presents with at least one sign or symptom that may indicate coronavirus-19. Ebola Screen: Patient negative for fever greater than or equal to 101.5 degrees Fahrenheit, and additional compatible Ebola Virus Disease symptoms Patient denies exposure to infectious person. Patient denies travel to an Ebola-affected area in the 21 days before illness onset. Initial Sepsis Screen: Does the patient meet any 2 criteria? No. Patient's initial sepsis screen is negative. Does the patient have a suspected source of infection? No. Patient's initial sepsis screen is negative. Risk Assessment: Do you want to hurt yourself or someone else? Patient reports no desire to harm self or others. Onset of symptoms was December 22, 2020. 03:19 Method Of Arrival: [facility] 03:19 Acuity: MYNOR 3 wg Historical: - Allergies: 03:22 No Known Allergies; wg - PMHx: 03:22 Diabetes - IDDM; Hypertension; Anxiety; Congestive heart failure; wg - Immunization history:: Adult Immunizations up to date. - Social history:: Smoking status: unknown. - Family history:: not pertinent. Screenin:37 Abuse screen: Denies threats or abuse. Denies injuries from another. Nutritional ms4 screening: No deficits noted. Tuberculosis screening: No symptoms or risk factors identified. Fall Risk None identified. Assessment: 03:36 Reassessment: Patient appears in no apparent distress at this time. No changes from ms4 previously documented assessment. Patient and/or family updated on plan of care and expected duration. Pain level reassessed. Patient is alert, oriented x 3, equal unlabored respirations, skin warm/dry/pink. General: Appears in no apparent distress. Behavior is calm, cooperative, appropriate for age. Pain: Denies pain. Neuro: No deficits noted. Cardiovascular: No deficits noted. Respiratory: Reports shortness of breath. Musculoskeletal: Swelling present in right leg and left leg. Vital Signs: 03:19 BP 182 / 70; Pulse 92; Resp 20; Temp 97.3; Pulse Ox 97% on R/A; Weight 155.58 kg; wg Height 5 ft. 10 in. (177.80 cm); 04:49 BP 175 / 73; Pulse 65; Resp 20; Pulse Ox 97% on R/A; ms4 03:19 Body Mass Index 49.21 (155.58 kg, 177.80 cm) ED Course: 03:16 Patient arrived in ED. bp1 03:17 James Severino MD is Attending Physician. [facility] 03:22 Triage completed. 03:22 Arm band placed on right wrist. EKG completed in triage. Results shown to MD. wg 03:24 Maintain EMS IV. Dressing intact. Good blood return noted. Site clean \T\ dry. Gauge \T\ wg site: 22g. Right hand. 03:41 X-ray completed. Portable x-ray completed in exam room. shaina 03:44 XRAY Chest (1 view) In Process Unspecified. EDMS 04:07 Pete Drummond is Hospitalizing Provider. [facility] 04:49 Patient has correct armband on for positive identification. ms4 07:11 Micheal Paul RN is Primary Nurse. ll1 17:44 No provider procedures requiring assistance completed. kg Administered Medications: 04:04 Drug: Lasix (furosemide) 60 mg Route: IVP; Site: right hand; ms4 07:22 Follow up: Response: No adverse reaction ll1 04:48 Drug: ProTONIX (pantoprazole) 40 mg Route: IVP; Site: left hand; ms4 07:22 Follow up: Response: No adverse reaction ll1 Outcome: 04:09 Decision to Hospitalize by Provider. bernice 17:44 Admitted to Med/surg accompanied by nurse, via wheelchair, room 222, Report called to xin Shelton RN 17:44 Condition: stable kg 17:44 Instructed on the need for admit, Demonstrated understanding of instructions. 18:00 Patient left the ED. kg Signatures: Dispatcher [employer] EDMS James Severino MD MD cha Di Santo, Mikaela md1 Micheal Paul RN RN ll1 Diana Boone Kristen, RN RN kg Mikayla Manriquez RN RN ms4 Caden Choi RN wg Corrections: (The following items were deleted from the chart) 03:22 03:19 Chief complaint: wg wg 03:25 03:19 Chief complaint: Patient states: Pt reports increased SOB over the past 2 days. wg States increased bilat edema in legs with reddness and signs of cellulitis. Pt reports being blind and a hx of CHF. wg
--- NOTE | 2020-12-24 04:09 | EDPHYS ---
Physician Documentation [facility] Name: Wild Koenig Age: 55 yrs Sex: Male : 1965 Arrival Date: 12/24/2020 Time: 03:16 Bed 20 Private MD: ED Physician James Severino HPI: 12/24 04:03 This 55 yrs old Male presents to ER via EMS with complaints of dyspnea. bernice 04:03 The patient has shortness of breath at rest, with light activity. Onset: The bernice symptoms/episode began/occurred 3 day(s) ago. Duration: The symptoms are continuous, and are steadily getting worse. The patient's shortness of breath is aggravated by light activity, supine position. Associated signs and symptoms: Pertinent positives: non-productive cough. Severity of symptoms: At their worst the symptoms were moderate in the emergency department the symptoms are unchanged. The patient has experienced similar episodes in the past, multiple times. Historical: - Allergies: 03:22 No Known Allergies; wg - PMHx: 03:22 Diabetes - IDDM; Hypertension; Anxiety; Congestive heart failure; wg - Immunization history:: Adult Immunizations up to date. - Social history:: Smoking status: unknown. - Family history:: not pertinent. ROS: 04:03 Constitutional: Negative for fever, chills, and weight loss, Eyes: Negative for injury, bernice pain, redness, and discharge, ENT: Negative for injury, pain, and discharge, Neck: Negative for injury, pain, and swelling, Cardiovascular: Negative for chest pain, palpitations, and edema, Abdomen/GI: Negative for abdominal pain, nausea, vomiting, diarrhea, and constipation, Back: Negative for injury and pain, : Negative for injury, bleeding, discharge, and swelling, Skin: Negative for injury, rash, and discoloration, Neuro: Negative for headache, weakness, numbness, tingling, and seizure, Psych: Negative for depression, anxiety, suicide ideation, homicidal ideation, and hallucinations, Allergy/Immunology: Negative for hives, rash, and allergies, Endocrine: Negative for neck swelling, polydipsia, polyuria, polyphagia, and marked weight changes, Hematologic/Lymphatic: Negative for swollen nodes, abnormal bleeding, and unusual bruising. 04:03 Respiratory: Positive for cough, with no reported sputum. 04:03 Abdomen/GI: Positive for abdominal distension, of the right upper quadrant, left upper quadrant, right lower quadrant and left lower quadrant. Exam: 04:03 Constitutional: This is a well developed, well nourished patient who is awake, alert, bernice and in no acute distress. Head/Face: Normocephalic, atraumatic. Eyes: Pupils equal round and reactive to light, extra-ocular motions intact. Lids and lashes normal. Conjunctiva and sclera are non-icteric and not injected. Cornea within normal limits. Periorbital areas with no swelling, redness, or edema. ENT: Nares patent. No nasal discharge, no septal abnormalities noted. Tympanic membranes are normal and external auditory canals are clear. Oropharynx with no redness, swelling, or masses, exudates, or evidence of obstruction, uvula midline. Mucous membranes moist. Neck: Trachea midline, no thyromegaly or masses palpated, and no cervical lymphadenopathy. Supple, full range of motion without nuchal rigidity, or vertebral point tenderness. No Meningismus. Chest/axilla: Normal chest wall appearance and motion. Nontender with no deformity. No lesions are appreciated. Cardiovascular: Regular rate and rhythm with a normal S1 and S2. No gallops, murmurs, or rubs. Normal PMI, no JVD. No pulse deficits. Respiratory: Lungs have equal breath sounds bilaterally, clear to auscultation and percussion. No rales, rhonchi or wheezes noted. No increased work of breathing, no retractions or nasal flaring. Abdomen/GI: Soft, non-tender, with normal bowel sounds. No distension or tympany. No guarding or rebound. No evidence of tenderness throughout. Back: No spinal tenderness. No costovertebral tenderness. Full range of motion. Male : Normal genitalia with no discharge or lesions. Skin: Warm, dry with normal turgor. Normal color with no rashes, no lesions, and no evidence of cellulitis. Neuro: Awake and alert, GCS 15, oriented to person, place, time, and situation. Cranial nerves II-XII grossly intact. Motor strength 5/5 in all extremities. Sensory grossly intact. Cerebellar exam normal. Normal gait. Psych: Awake, alert, with orientation to person, place and time. Behavior, mood, and affect are within normal limits. 04:03 Musculoskeletal/extremity: Extremities: decreased ROM, swelling, tenderness, ROM: full active range of motion, full passive range of motion, Circulation is intact in all extremities. Sensation intact. Compartment Syndrome exam of affected extremity: is normal. 04:28 ECG was reviewed by the Attending Physician. [facility] Vital Signs: 03:19 BP 182 / 70; Pulse 92; Resp 20; Temp 97.3; Pulse Ox 97% on R/A; Weight 155.58 kg; wg Height 5 ft. 10 in. (177.80 cm); 04:49 BP 175 / 73; Pulse 65; Resp 20; Pulse Ox 97% on R/A; ms4 03:19 Body Mass Index 49.21 (155.58 kg, 177.80 cm) wg MDM: 03:18 Patient medically screened. [facility] 04:03 Differential diagnosis: asthma, Bronchitis CHF exacerbation, pulmonary edema, reactive bernice airway disease. Antibiotic administration: Not indicated. The patient's Wells Deep Vein Thrombosis Score was calculated as follows: Total Score: 0-2 Pts- Low Risk. The patient's pulmonary embolism risk score was calculated as follows: Total Score: 0-2 points. This patient was found to be at low risk for a pulmonary embolism by using the Well's assessment criteria. Immunization status: Influenza vaccine: Data reviewed: vital signs, nurses notes, lab test result(s), EKG, radiologic studies, plain films. Data interpreted: panel monitor: rate is 91 beats/min, rhythm is regular, Pulse oximetry: on room air is 97 %. Test interpretation: by ED physician or midlevel provider: ECG, plain radiologic studies. Counseling: I had a detailed discussion with the patient and/or guardian regarding: the historical points, exam findings, and any diagnostic results supporting the discharge/admit diagnosis, lab results, radiology results, the need for further work-up and treatment in the hospital. 12/24 03:18 Order name: Basic Metabolic Panel; Complete Time: 04: [facility] 12/24 03:18 Order name: CBC with Diff; Complete Time: 04: [facility] 12/24 03:18 Order name: LFT's; Complete Time: 04: [facility] 12/24 03:18 Order name: Magnesium; Complete Time: 04: [facility] 12/24 03:18 Order name: NT PRO-BNP; Complete Time: 04: [facility] 12/24 03:18 Order name: PT-INR; Complete Time: 04:35 [facility] 12/24 03:18 Order name: Troponin (emerg Dept Use Only); Complete Time: 04:42 [facility] 12/24 04:02 Order name: COVID-19 : Document "Date of Symptom Onset" if Symptomatic. [facility] 12/24 04:26 Order name: Type And Screen [facility] 12/24 05:25 Order name: ABO/RH no charge [facility] 12/24 05:30 Order name: SARS-COV-2 RT PCR [facility] 12/24 07:49 Order name: Glucose, Ancillary Testing [facility] 12/24 08:06 Order name: Uric Acid [facility] 12/24 08:06 Order name: Creatine Phosphokinase [facility] 12/24 08:06 Order name: Troponin I [facility] 12/24 08:06 Order name: T4 Free [facility] 12/24 08:06 Order name: Thyroid Stimulating Hormone [facility] 12/24 08:06 Order name: Transferrin Sat/Iron Binding [facility] 12/24 08:06 Order name: Ferritin [facility] 12/24 08:06 Order name: Folic Acid, (Folate) [facility] 12/24 08:06 Order name: Vitamin B12 Level [facility] 12/24 08:11 Order name: Hemoglobin A1c [facility] 12/24 08:29 Order name: Urinalysis [facility] 12/24 08:48 Order name: Urine Microscopic Only [facility] 12/24 12:26 Order name: Glucose, Ancillary Testing [facility] 12/24 12:44 Order name: Hemoglobin [facility] 12/24 12:44 Order name: Hematocrit [facility] 12/24 16:19 Order name: Troponin I [facility] 12/24 17:23 Order name: Glucose, Ancillary Testing [facility] 12/24 03:18 Order name: XRAY Chest (1 view) [facility] 12/24 03:18 Order name: EKG; Complete Time: 03:19 [facility] 12/24 03:18 Order name: Cardiac monitoring; Complete Time: 03:26 [facility] 12/24 03:18 Order name: EKG - Nurse/Tech; Complete Time: 03:26 [facility] 12/24 03:18 Order name: IV Saline Lock; Complete Time: 03:26 [facility] 12/24 03:18 Order name: Labs collected and sent; Complete Time: 03:30 [facility] 12/24 03:18 Order name: O2 Per Protocol; Complete Time: 03:26 [facility] 12/24 03:18 Order name: O2 Sat Monitoring; Complete Time: 03:26 b[facility] 12/24 04:07 Order name: Bladder Scanner bernice 12/24 04:52 Order name: CONS Physician Consult [facility] 12/24 08:56 Order name: US EDMS EC:28 Rate is 68 beats/min. Rhythm is regular. QRS [place] is Normal. ID interval is normal. QRS bernice interval is normal. QT interval is normal. No Q waves. T waves are Normal. No ST changes noted. Clinical impression: NSR w/ Non-specific ST/T Changes and No evidence of ischemia. Interpreted by me. Reviewed by me. Administered Medications: 04:04 Drug: Lasix (furosemide) 60 mg Route: IVP; Site: right hand; ms4 07:22 Follow up: Response: No adverse reaction ll1 04:48 Drug: ProTONIX (pantoprazole) 40 mg Route: IVP; Site: left hand; ms4 07:22 Follow up: Response: No adverse reaction ll1 Disposition Summary: 12/24/20 04:09 Hospitalization Ordered Hospitalization Status: Inpatient Admission bernice Provider: Pete Drummond cha Condition: Stable bernice Problem: new bernice Symptoms: have improved bernice Bed/Room Type: Standard bernice Location: Telemetry/MedSurg (Inpatient)(12/24/20 14:12) bd Room Assignment: 218(12/24/20 14:12) bd Diagnosis - Dyspnea bernice - Morbid (severe) obesity due to excess calories bernice - Type 1 diabetes mellitus with hyperglycemia bernice - Chronic kidney disease, stage 4 (severe) bernice - Venous insufficiency (chronic) (peripheral) bernice - Anemia, unspecified bernice Forms: - Medication Reconciliation Form bernice - SBAR form bernice Signatures: Dispatcher [employer] EDAR Iza Bojorquez Corey, MD MD cha Williams, Irene, RN RN iw Stroud, Mikaela, RN RN ms4 Caden Choi RN wg Lewis, Lynsay RN ll1 Corrections: (The following items were deleted from the chart) 04:10 04:03 CORONAVIRUS ordered. EDAR EDMS 09:07 04:09 Telemetry/MedSurg (Inpatient) bernice iw 09:07 04:09 bernice iw 14:12 09:07 [facility] ER HOLD iw bd 14:12 09:07 ERHOLD- iw bd
[2020-12-24] MEDS ORDERED: FUROSEMIDE 40 MG/4 ML VIAL ONE ×3 (04:28→17:33)
[2020-12-24] MEDS ORDERED: FUROSEMIDE 20 MG/ 2ML VIAL ONE (04:31)
[2020-12-24 04:35] LABS: ALT/SGPT 15 U/L (12-78); AST/SGOT 7 U/L (15-37); Albumin 3.1 g/dL (3.4-5.0); Alkaline Phosphatase 126 U/L (45-117); BUN Blood Urea Nitrogen 52 mg/dL (7-18); Bicarbonate 22 mmol/L (21-32); Bilirubin Direct 0.1 mg/dL (0-0.2); Bilirubin Total 0.4 mg/dL (0.2-1.0); Glucose Level 152 mg/dL (74-106); Magnesium 2.2 mg/dL (1.8-2.4); NT PRO-BNP 2375 pg/mL (<125); Potassium 5.1 mmol/L (3.5-5.1); Protein, Total 7.3 g/dL (6.4-8.2); Sodium Level 144 mmol/L (136-145); Troponin (Emerg Dept Use Only) < 0.02 ng/mL (0.0-0.045)
[2020-12-24] MEDS ORDERED: PANTOPRAZOLE 40 MG INJ ONE (04:57)
--- NOTE | 2020-12-24 05:42 | P.HP ---
Certification for Inpatient Patient admitted to: Inpatient With expected LOS: <2 Midnights Patient will require the following post-hospital care: None Practitioner: I am a practitioner with admitting privileges, knowledge of patient current condition, hospital course, and medical plan of care. Services: Services provided to patient in accordance with Admission requirements found in Title 42 Section 412.3 of the Code of Federal Regulations Patient History Date of Service: 12/24/20 Reason for admission: CHF exacerbation History of Present Illness: Mr. Koenig is a 55 yo M with DM, HTN, CHF, CKD, AoCD who presents with 4 days of worsening SOB, orthopnea and PND. He says whenever he lays down he has to sit up to breathe because he feels like 'someone is sitting on my chest.' He also reports dry cough, edema, wheezing, palpitations and dizziness. Patient says he still makes urine. H/H 7.6, BUN 52, Cr 5.23, GFR 12, Glu 152, BNP 2375. He says this last occurred 1 year ago when he was admitted for a CHF exacerbation. Allergies No Known Allergies Allergy (Verified 05/03/19 04:58) Home Medications: Gabapentin 100 mg PO TID 11/15/19 Insulin Detemir [Levemir Flextouch] 24 units SQ BID 11/15/19 buPROPion HCL [Wellbutrin*] 1 tab PO DAILY 11/15/19 Calcitrol [Rocaltrol*] 0.5 mcg PO DAILY #60 cap 11/19/19 Cholecalciferol (Vitamin D3) [Vitamin D 5,000 IU Cap*] 5,000 unit PO DAILY #30 cap 11/19/19 Cyanocobalamin [Vitamin B-12*] 1,000 mcg PO DAILY #90 tab 11/19/19 Furosemide [Lasix] 80 mg PO BID #60 tablet 11/19/19 Spironolactone [Aldactone*] 25 mg PO DAILY #30 tab 11/19/19 Ubidecarenone [Coenzyme Q10*] 200 mg PO DAILY #30 cap 11/19/19 carvediloL [Coreg*] 25 mg PO BID #60 tab 11/19/19 traMADol HCL [Ultram*] 50 mg PO TID PRN #15 tab 11/19/19 - Past Medical/Surgical History Diabetic: Yes -: Chronic Back Pain -: Hypertension -: Diabetes mellitus type 2 insulin dependent -: Depression Anxiety -: Anxiety -: eye surgery Psychosocial/ Personal History: Patient lives with aunt - Social History Smoking Status: Never smoker Alcohol use: No CD- Drugs: No Caffeine use: No Place of Residence: Home Review of Systems 10-point ROS is otherwise unremarkable Respiratory: Cough, Shortness of Breath, SOB with Excertion, Wheezing Cardiovascular: Palpitations, Orthopnea, Paroxysmal Noc. Dyspnea, Edema Physical Examination - Physical Exam General: Alert, In no apparent distress, Obese HEENT: Atraumatic, PERRLA, Mucous membr. moist/pink, EOMI, Sclerae nonicteric Neck: Supple, 2+ carotid pulse no bruit, No LAD, Without JVD or thyroid abnor mality Respiratory: Normal air movement, Crackles/rales Cardiovascular: Regular rate/rhythm, Normal S1 S2, No gallops, No rubs, No murmurs, Edema Gastrointestinal: Normal bowel sounds, No tenderness Musculoskeletal: No tenderness Integumentary: Tenderness/swelling, Erythema, Warmth Neurological: Normal speech, Normal strength at 5/5 x4 extr, Normal tone, Normal affect Lymphatics: No axilla or inguinal lymphadenopathy - Studies Laboratory Data (last 24 hrs) 12/24/20 03:24: PT 11.8, INR 1.03 12/24/20 03:24: WBC 9.90, Hgb 7.6 L, Hct 22.4 L, Plt Count 229 12/24/20 03:24: Sodium 144, Potassium 5.1, BUN 52 H, Creatinine 5.23 H*, Glucose 152 H, Magnesium 2.2, Total Bilirubin 0.4, AST 7 L, ALT 15, Alkaline Phosphatase 126 H Assessment and Plan - Problems (Diagnosis) (1) Anemia in chronic kidney disease Current Visit: Yes Status: Chronic Qualifiers: Chronic kidney disease stage: unspecified stage Qualified Code(s): N18.9 - Chronic kidney disease, unspecified; D63.1 - Anemia in chronic kidney disease (2) Diabetes Current Visit: Yes Status: Chronic Qualifiers: Diabetes mellitus type: type 2 Diabetes mellitus buttermaker insulin use: with buttermaker use Diabetes mellitus complication status: with kidney compli cations Diabetes mellitus complication detail: with chronic kidney disease Chronic kidney disease stage: unspecified stage Qualified Code(s): E11.22 - Type 2 diabetes mellitus with diabetic chronic kidney disease; Z79.4 - 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 coordinator (current) use of insulin (3) Cardiorenal syndrome with renal failure Current Visit: No Status: Acute (4) Chronic kidney disease Current Visit: No Status: Chronic Qualifiers: Chronic kidney disease stage: unspecified stage Qualified Code(s): N18.9 - Chronic kidney disease, unspecified (5) Hypertension, malignant Current Visit: No Status: Chronic - Plan nephrology consulted continue IV Lasix, fluid restriction, daily weights, ECHO pending monitor H/H, will transfuse to goal >7 renal diet, dietitian consulted sliding scale insulin, accuchecks A1c pending hydralazine PRN for BP spikes reconcile and continue home medications DVT ppx Discharge Plan: Home Plan to discharge in: 48 Hours - Advance Directives Does patient have a Living Will: No Does patient have a Durable POA for Healthcare: No - Code Status/Comfort Care Code Status Assessed: Yes (full code ) Critical Care: No Time Spent Managing Pts Care (In Minutes): 70
[2020-12-24] MEDS ORDERED: ONDANSETRON 4 MG/2 ML VIAL IV PRN (05:53)
[2020-12-24] MEDS ORDERED: ALBUTEROL 2.5 MG/3 ML NEB SOL NEB PRN (05:53)
[2020-12-24] MEDS: INSULIN -REGULAR HUMAN 50 UNIT/0.5 ML ML SQ SCH ×4 (07:30→20:19)
[2020-12-24 08:06] LABS: Urine Appearance CLEAR (Clear); Urine Bilirubin NEGATIVE (Negative); Urine Blood TRACE (Negative); Urine Color YELLOW (Yellow); Urine Glucose TRACE (Negative); Urine Protein 2+ (Negative); Urine Specific Gravity <=1.005 (1.005-1.030); Urine Urobilinogen 0.2 mg/dL (0.2-1.0)
[2020-12-24 08:06] LABS: Creatine Phosphokinase 180 U/L (39-308); Ferritin 99.1 ng/mL (26-388); Folic Acid, (Folate) 9.5 ng/mL (3.1-17.5); Transferrin 196 mg/dL (200-360); Troponin I < 0.02 ng/mL (0.0-0.045); Uric Acid 8.2 mg/dL (3.5-7.2)
[2020-12-24 08:11] LABS: Urine Microscopic Reflex ORDER UMIC
[2020-12-24 08:47] LABS: Urine Bacteria NONE SEEN /HPF (NONE SEEN); Urine RBC <5 /HPF (NONE SEEN)
--- NOTE | 2020-12-24 08:48 | RAD REPORT ---
EXAM DESCRIPTION: RAD - Chest Single View - 12/24/2020 3:44 am CLINICAL HISTORY: DYSPNEA Chest pain. COMPARISON: Chest Single View dated 11/15/2019; Chest Single View dated 05/02/2019 FINDINGS: Portable technique limits examination quality. Mild pulmonary edema. The heart is moderately enlarged in size. No displaced fractures. IMPRESSION: Mild CHF.
--- NOTE | 2020-12-24 08:56 | RAD REPORT ---
EXAM DESCRIPTION: US - Renal Ultrasound-Complete - 12/24/2020 6:23 am CLINICAL HISTORY: ARF Flank pain COMPARISON: Renal Ultrasound-Complete dated 11/15/2019 FINDINGS: Both kidneys are normal in size, shape and echotexture. The right kidney measures 11.0 x 5.2 x 4.1 cm. No hydronephrosis, focal mass or perinephric fluid. The left kidney measures 12.7 x 6.5 x 5.1 cm. No hydronephrosis, focal mass or perinephric fluid. The urinary bladder is incompletely distended without gross abnormality seen. IMPRESSION: Unremarkable renal sonogram.
[2020-12-24] MEDS ORDERED: EPOETIN ALFA-EPBX 10,000 UNIT/ML VIAL SQ ONE (08:57)
--- NOTE | 2020-12-24 08:58 | P.CNS ---
Date of Consult: 12/24/20 Reason for Consult: PORFIRIO/ CKD Requesting Physician: nelly horan Chief Complaint: CHF exacerbation History of Present Illness: Mr. Koenig is a 55 yo M with DM, HTN, CHF, CKD, AoCD who presents with 4 days of worsening SOB, orthopnea and PND. He says whenever he lays down he has to sit up to breathe because he feels like 'someone is sitting on my chest.' He also reports dry cough, edema, wheezing, palpitations and dizziness. Patient says he still makes urine. 04:03 This 55 yrs old Male presents to ER via EMS with complaints of dyspnea. bernice 04:03 The patient has shortness of breath at rest, with light activity. Onset: The bernice symptoms/episode began/occurred 3 day(s) ago. Duration: The symptoms are continuous, and are steadily getting worse. The patient's shortness of breath is aggravated by light activity, supine position. Associated signs and symptoms: Pertinent positives: non-productive cough. Severity of symptoms: At their worst the symptoms were moderate in the emergency department the symptoms are unchanged. The patient has experienced similar episodes in the past, multiple times. Allergies No Known Allergies Allergy (Verified 05/03/19 04:58) Home medications list reviewed: Yes Home Medications: Gabapentin 100 mg PO TID 11/15/19 Insulin Detemir [Levemir Flextouch] 24 units SQ BID 11/15/19 buPROPion HCL [Wellbutrin*] 1 tab PO DAILY 11/15/19 Calcitrol [Rocaltrol*] 0.5 mcg PO DAILY #60 cap 11/19/19 Cholecalciferol (Vitamin D3) [Vitamin D 5,000 IU Cap*] 5,000 unit PO DAILY #30 cap 11/19/19 Cyanocobalamin [Vitamin B-12*] 1,000 mcg PO DAILY #90 tab 11/19/19 Furosemide [Lasix] 80 mg PO BID #60 tablet 11/19/19 Spironolactone [Aldactone*] 25 mg PO DAILY #30 tab 11/19/19 Ubidecarenone [Coenzyme Q10*] 200 mg PO DAILY #30 cap 11/19/19 carvediloL [Coreg*] 25 mg PO BID #60 tab 11/19/19 traMADol HCL [Ultram*] 50 mg PO TID PRN #15 tab 08/17/20 hydrOXYzine HCL [Atarax] 50 mg PO Q6HR PRN 12/24/20 - Past Medical/Surgical History Diabetic: Yes -: Chronic Back Pain -: Hypertension -: Diabetes mellitus type 2 insulin dependent -: Depression Anxiety -: Anxiety -: eye surgery Psychosocial/ Personal History: Patient lives with aunt - Social History Alcohol use: No CD- Drugs: No Caffeine use: No Place of Residence: Home Review of Systems 10-point ROS is otherwise unremarkable General: Weakness, Malaise Respiratory: SOB with Excertion Cardiovascular: Edema Physical Examination General: In no apparent distress, Oriented x3, Cooperative HEENT: Atraumatic Neck: Supple Respiratory: Diminished Cardiovascular: Regular rate/rhythm, Edema Gastrointestinal: Soft and benign, Non-distended Musculoskeletal: No clubbing, No contractures Integumentary: No rashes, No cyanosis Neurological: Normal speech Laboratory Data (last 24 hrs) 12/24/20 03:24: PT 11.8, INR 1.03 12/24/20 03:24: WBC 9.90, Hgb 7.6 L, Hct 22.4 L, Plt Count 229 12/24/20 03:24: Sodium 144, Potassium 5.1, BUN 52 H, Creatinine 5.23 H*, Glucose 152 H, Magnesium 2.2, Total Bilirubin 0.4, AST 7 L, ALT 15, Alkaline Phosphatase 126 H Imagings Data: EXAM DESCRIPTION: RAD - Chest Single View - 12/24/2020 3:44 am CLINICAL HISTORY: DYSPNEA Chest pain. COMPARISON: Chest Single View dated 11/15/2019; Chest Single View dated 05/02/2019 FINDINGS: Portable technique limits examination quality. Mild pulmonary edema. The heart is moderately enlarged in size. No displaced fractures. IMPRESSION: Mild CHF. Conclusions/Impression: PORFIRIO may be CRS CKD with proteinuria -No NSAIDs -Follow up Renal US -Check HBV panel HTN with CKD/ CHF -Continue Coreg -Start Doxazosin 2mg BID -Start Amlodipine Diastolic CHF, A/C -Continue furosemide -Start CoQ10 -Follow up echo DM II with CKD -RISS Anemia in chronic illness Iron deficiency -Give Retacrit X1 -Consider IV iron -Transfuse PRBC as needed Thank you kindly for the consultation.
[2020-12-24] MEDS ORDERED: CALCITROL 0.25 MCG CAP PO SCH (09:00)
[2020-12-24] MEDS: FUROSEMIDE 40 MG/4 ML VIAL IV SCH ×2 (09:00→16:59)
[2020-12-24] MEDS: COENZYME Q10- 200 MG CAP PO SCH (12:24)
[2020-12-24] MEDS: VITAMIN D 5,000 UNIT CAP PO SCH (12:25)
[2020-12-24 12:27] LABS: Hematocrit 20.9 % (39.6-49.0)
--- NOTE | 2020-12-24 12:41 | EKG ---
Test Date: 2020-12-24 Test Time: 03:23:22 Adapted Physical Education Aide: MEASUREMENT RESULTS: Intervals: Rate: 68 MI: 130 QRSD: 74 QT: 408 QTc: 433 [place]: P: 27 MI: 130 QRS: -15 T: 22 INTERPRETIVE STATEMENTS: Sinus rhythm with fusion complexes Otherwise normal ECG Compared to ECG 05/03/2019 00:38:44 Fusion complex(es) now present Left-axis deviation no longer present ST (T wave) deviation no longer present Electronically Signed On 12-24-20 12:41:22 CDT by Efrain Louis
[2020-12-24] MEDS ORDERED: INSULIN -REGULAR HUMAN 50 UNIT/0.5 ML ML ONE (12:48)
[2020-12-24] MEDS: CALCITROL 0.25 MCG CAP PO SCH (13:00)
--- NOTE | 2020-12-24 13:09 | ECHO ---
HEIGHT: 5 ft 10 in WEIGHT: 342 lb 15.923 oz DATE OF STUDY: 12/24/[address]: Mohinder Ambriz 2-DIMENSIONAL: YES M.MODE: YES DOPPLER: YES COLOR FLOW: YES TDS: YES PORTABLE: NO DEFINITY: NO BUBBLE STUDY: NO DIAGNOSIS: VOLUME OVERLOAD CARDIAC HISTORY: CATHERIZATION: NO SURGERY: NO PROSTHETIC VALVE: NO PACEMAKER: NO MEASUREMENTS (cm) DIASTOLIC (NORMALS) SYSTOLIC (NORMALS) IVSd 1.2 (0.6-1.2) LA Diam 4.0 (1.9-4.0) LVEF 61% LVIDd 5.3 (3.5-5.7) LVIDs 3.5 (2.0-3.5) %FS 33% LVPWd 1.2 (0.6-1.2) Ao Diam 3.0 (2.0-3.7) 2 DIMENSIONAL ASSESSMENT: RIGHT ATRIUM: NORMAL LEFT ATRIUM: NORMAL RIGHT VENTRICLE: NORMAL LEFT VENTRICLE: NORMAL TRICUSPID VALVE: NORMAL MITRAL VALVE: NORMAL PULMONIC VALVE: NORMAL AORTIC VALVE: NORMAL PERICARDIAL EFFUSION: NONE AORTIC ROOT: NORMAL LEFT VENTRICULAR WALL MOTION: NORMAL DOPPLER/COLOR FLOW: NORMAL COMMENTS: TECHNICALLY DIFFICULT STUDY. NORMAL LEFT VENTRICULAR SIZE AND FUNCTION. NO WALL MOTION ABNORMALITY. NO EFFUSION. TECHNOLOGIST: Jane MOLINA
[2020-12-24] MEDS ORDERED: NA CHLORIDE 0.9% 250 ML IV SCH (15:00)
--- NOTE | 2020-12-24 15:11 | P.PN ---
Subjective Date of Service: 12/24/20 Chief Complaint: CHF exacerbation Patient states he feels better today. He is laying flat and currently not orthopneic. His hemoglobin is down to 6.9 He reports good urine output with the Lasix. He denies any chest pain. Physical Examination - Vital Signs Temperature: 98.2 F Blood Pressure: 179/71 Pulse: 67 Respirations: 17 Pulse Ox (%): 98 - Physical Exam General: Alert, In no apparent distress, Oriented x3 HEENT: Mucous membr. moist/pink, Sclerae nonicteric Neck: Supple, JVD not distended Respiratory: Diminished (Bilateral), Crackles/rales (Mild bibasilar crackles) Cardiovascular: Regular rate/rhythm, Normal S1 S2, Edema (1+ bilateral lower extremity edema) Gastrointestinal: Normal bowel sounds, Soft and benign, Non-distended, No tenderness Integumentary: Other (Bilateral lower extremity venostasis dermatitis) Neurological: Other (No focal motor deficit) - Studies Laboratory Data (last 24 hrs) 12/24/20 03:24: PT 11.8, INR 1.03 12/24/20 03:24: WBC 9.90, Hgb 7.6 L, Hct 22.4 L, Plt Count 229 12/24/20 03:24: Sodium 144, Potassium 5.1, BUN 52 H, Creatinine 5.23 H*, Glucose 152 H, Magnesium 2.2, Total Bilirubin 0.4, AST 7 L, ALT 15, Alkaline Phosphatase 126 H Assessment And Plan - Current Problems (Diagnosis) (1) Acute diastolic heart failure Current Visit: Yes Status: Acute (2) Chronic kidney disease, stage 5 Current Visit: Yes Status: Acute (3) Chronic anemia Current Visit: Yes Status: Acute (4) Diabetes Current Visit: Yes Status: Chronic Qualifiers: Diabetes mellitus type: type 2 Diabetes mellitus longterm insulin use: with longterm use Diabetes mellitus complication status: with kidney complications Diabetes mellitus complication detail: with chronic kidney disease Chronic kidney disease stage: unspecified stage Qualified Code(s): E11.22 - Type 2 diabetes mellitus with diabetic chronic kidney disease; 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 Patient is iron deficient. Start IV iron. Patient is responding to IV Lasix. Nephrology input appreciated. Continue IV Lasix and monitor input and output. Fluid restriction to 1200 ml per day. Blood pressure control. Resume home dose Coreg 25 mg b.i.d. added amlodipine 10 mg daily. Nephrology is following. Monitor renal function. Repeat chest x-ray in a.m. Echocardiogram shows normal EF. Troponin is negative.
[2020-12-24] MEDS ORDERED: CALCITROL 0.25 MCG CAP PO ONE (16:32)
[2020-12-24] MEDS ORDERED: AMLODIPINE 10 MG TAB ONE (16:33)
[2020-12-24] MEDS: hydrOXYzine HCL 25 MG TAB PO PRN (16:58)
[2020-12-24] MEDS ORDERED: hydrOXYzine HCL 25 MG TAB ONE (17:13)
[2020-12-24] MEDS: carvediloL 25 MG TAB PO SCH (20:14)
[2020-12-24] MEDS: DOXAZOSIN 2 MG TAB PO SCH (21:59)
[2020-12-24 22:22] LABS: UR PROTEIN 168.5 mg/dL (<11.9); Urine Protein/Creatinine Ratio 7.02 ratio (<0.15)
[2020-12-24] MEDS: HYDRALAZINE HCL 20 MG/ML VIAL IV PRN (23:30)
[2020-12-24] MEDS: ACETAMINOPHEN 500 MG TAB PO PRN (23:39)
[2020-12-25 05:15] LABS: Absolute Lymphocytes (CBC) 1.1 K/uL (0.7-4.9); Basophils % 0.6 % (0-1.3); Hematocrit 23.1 % (39.6-49.0); Lymphocytes % 15.1 % (15.3-44.8); MPV 8.1 fL (7.6-11.3); RBC Red Blood Cell Count 2.63 M/uL (4.33-5.43)
[2020-12-25 05:33] LABS: Bilirubin Total 0.4 mg/dL (0.2-1.0); Magnesium 2.1 mg/dL (1.8-2.4); Phosphorus 3.9 mg/dL (2.5-4.9); Potassium 4.4 mmol/L (3.5-5.1); Protein, Total 7.1 g/dL (6.4-8.2); Uric Acid 8.2 mg/dL (3.5-7.2)
[2020-12-25] MEDS: HYDRALAZINE HCL 20 MG/ML VIAL IV PRN ×3 (06:21→16:54)
--- NOTE | 2020-12-25 06:56 | RAD REPORT ---
EXAM DESCRIPTION: [place] Single View12/25/2020 5:58 am CLINICAL HISTORY: Chest pain COMPARISON: December 24, 2020 FINDINGS: Pulmonary opacities appear resolved. Upper lobe vessels are prominent indicative of pulmon kisha venous hypertension The heart remains enlarged
[2020-12-25] MEDS: INSULIN -REGULAR HUMAN 50 UNIT/0.5 ML ML SQ SCH ×4 (08:30→20:05)
[2020-12-25] MEDS: SOD FERRIC GLUC COMPLX/SUCROSE 125 MG in NA CHLORIDE 0.9% 100 ML IV SCH (09:00)
[2020-12-25] MEDS: CALCITROL 0.25 MCG CAP PO SCH (09:12)
[2020-12-25] MEDS: carvediloL 25 MG TAB PO SCH ×2 (09:12→20:04)
[2020-12-25] MEDS: DOXAZOSIN 2 MG TAB PO SCH (09:13)
[2020-12-25] MEDS: VITAMIN D 5,000 UNIT CAP PO SCH (09:13)
[2020-12-25] MEDS: FUROSEMIDE 40 MG/4 ML VIAL IV SCH ×2 (09:15→16:11)
[2020-12-25] MEDS: AMLODIPINE 10 MG TAB PO SCH (09:24)
[2020-12-25] MEDS: COENZYME Q10- 200 MG CAP PO SCH (10:02)
[2020-12-25] MEDS: hydrOXYzine HCL 25 MG TAB PO PRN (10:07)
[2020-12-25] MEDS ORDERED: DOXAZOSIN 2 MG TAB PO ONE (10:10)
--- NOTE | 2020-12-25 11:05 | P.PN ---
Date of Service: 12/25/20 Vital Signs Temp Pulse Resp BP Pulse Ox 97.4 F 69 18 181/83 H 98 12/25/20 08:00 12/25/20 09:12 12/25/20 08:00 12/25/20 10:05 12/25/20 08:00 Medications Acetaminophen (Acetaminophen 500 Mg Tab) 500 mg PO Q4HP PRN PRN Reason: Pain scale 2-4 (Mild) Last Admin: 12/24/20 23:39 Dose: 500 mg Documented by: Albuterol Sulfate (Albuterol 2.5 Mg/3 Ml Neb Shira) 2.5 mg NEB Q6HP PRN PRN Reason: SHORTNESS OF BREATH Amlodipine Besylate (Amlodipine 10 Mg Tab) 10 mg PO DAILY [facility] Last Admin: 12/25/20 09:24 Dose: 10 mg Documented by: Calcitriol (Calcitrol 0.25 Mcg Cap) 0.5 mcg PO DAILY [facility] Last Admin: 12/25/20 09:12 Dose: 0.5 mcg Documented by: Carvedilol (Carvedilol 25 Mg Tab) 25 mg PO BID [facility] Last Admin: 12/25/20 09:12 Dose: 25 mg Documented by: Cholecalciferol (Vitamin D 5,000 Unit Cap) 5,000 unit PO DAILY [facility] Last Admin: 12/25/20 09:13 Dose: 5,000 unit Documented by: Coenzyme Q10 (Coenzyme Q10- 200 Mg Cap) 200 mg PO DAILY [facility] Last Admin: 12/25/20 10:02 Dose: 200 mg Documented by: Doxazosin Mesylate (Doxazosin 4 Mg Tab) 4 mg PO BID [facility] Furosemide (Furosemide 40 Mg/4 Ml Vial) 40 mg IV BIDL [facility] Last Admin: 12/25/20 09:15 Dose: 40 mg Documented by: Hydralazine HCl (Hydralazine Hcl 20 Mg/Ml Vial) 10 mg IV Q4HP PRN PRN Reason: Titrate to SBP (MUST DEFINE) Last Admin: 12/25/20 09:52 Dose: 10 mg Documented by: Hydroxyzine HCl (Hydroxyzine Hcl 25 Mg Tab) 50 mg PO Q6HP PRN PRN Reason: ITCHING Last Admin: 12/25/20 10:07 Dose: 50 mg Documented by: Sodium Chloride (Sodium Chloride) 250 mls @ 0 mls/hr IV .Q0M [facility] Ferric Sodium Gluconate Complex 125 mg/ Sodium Chloride 110 mls @ 100 mls/hr IV DAILY [facility] Stop: 01/01/21 10:05 Last Admin: 12/25/20 09:00 Dose: 110 mls Documented by: Insulin Human Regular (Insulin -Regular Human 50 Unit/0.5 Ml Ml) 0 unit SQ ACHS [facility]; Protocol Last Admin: 12/25/20 08:30 Dose: 3 unit Documented by: Ondansetron HCl (Ondansetron 4 Mg/2 Ml Vial) 4 mg IV Q6HP PRN PRN Reason: NAUSEA / VOMITING Last Admin: 12/25/20 09:51 Dose: 4 mg Documented by: Sodium Chloride (Flush Normal Saline 10 Ml) 10 ml IV BID [facility] Last Admin: 12/25/20 09:14 Dose: 10 ml Documented by: Lab Results (last 24 hrs) 12/24/20 04:44: ABO/Rh O POSITIVE, Solid Phase Ab Screen Negative, Crossmatch See Detail Assessment/ Plan: Nephrology Persistent dyspnea and malaise today with associated nausea. No chest pain. No acute events overnight. Vitals, medications, blood work and imaging reviewed in the chart. General: In no apparent distress, Oriented x3, Cooperative. Obese. HEENT: Atraumatic Neck: Supple Respiratory: Diminished Cardiovascular: Regular rate/rhythm, Edema Gastrointestinal: Soft and benign, Non-distended Musculoskeletal: No clubbing, No contractures Integumentary: No rashes, No cyanosis Neurological: Normal speech Laboratory Data (last 24 hrs) 12/24/20 03:24: PT 11.8, INR 1.03 12/24/20 03:24: WBC 9.90, Hgb 7.6 L, Hct 22.4 L, Plt Count 229 12/24/20 03:24: Sodium 144, Potassium 5.1, BUN 52 H, Creatinine 5.23 H*, Glucose 152 H, Magnesium 2.2, Total Bilirubin 0.4, AST 7 L, ALT 15, Alkaline Phosphatase 126 H Imagings Data: EXAM DESCRIPTION: RAD - Chest Single View - 12/24/2020 3:44 am CLINICAL HISTORY: DYSPNEA Chest pain. COMPARISON: Chest Single View dated 11/15/2019; Chest Single View dated 05/02/2019 FINDINGS: Portable technique limits examination quality. Mild pulmonary edema. The heart is moderately enlarged in size. No displaced fractures. IMPRESSION: Mild CHF. EXAM DESCRIPTION: US - Renal Ultrasound-Complete - 12/24/2020 6:23 am CLINICAL HISTORY: ARF Flank pain COMPARISON: Renal Ultrasound-Complete dated 11/15/2019 FINDINGS: Both kidneys are normal in size, shape and echotexture. The right kidney measures 11.0 x 5.2 x 4.1 cm. No hydronephrosis, focal mass or perinephric fluid. The left kidney measures 12.7 x 6.5 x 5.1 cm. No hydronephrosis, focal mass or perinephric fluid. The urinary bladder is incompletely distended without gross abnormality seen. IMPRESSION: Unremarkable renal sonogram. Conclusions/Impression: PORFIRIO may be CRS CKD V with proteinuria ESRD -No NSAIDs -Renal US reviewed -HBV panel pending -Consult surgery for tunneled CVC placement and initiate dialysis. HTN with CKD/ CHF LVEF 61% -Continue Coreg -Increase Doxazosin 4mg BID -Continue Amlodipine Diastolic CHF, A/C -Continue furosemide -Continue CoQ10 -Echo reviewed DM II with CKD -RISS Anemia in chronic illness Iron deficiency -Retacrit PRN -Continue IV iron -Transfuse PRBC as needed Case reviewed with Dr. Drummond
[2020-12-25] MEDS ORDERED: AMLODIPINE 10 MG TAB PO SCH (16:00)
[2020-12-25] MEDS: ACETAMINOPHEN 500 MG TAB PO PRN (16:07)
--- NOTE | 2020-12-25 16:41 | P.PN ---
Subjective Date of Service: 12/25/20 Chief Complaint: CHF exacerbation Patient states he feels better today. He is not orthopedic but complaining of some shortness of breath. His hemoglobin is up to 7.6 Repeat chest x-ray shows no pulmonary edema. Physical Examination - Vital Signs Temperature: 97.4 F Blood Pressure: 141/67 Pulse: 68 Respirations: 18 Pulse Ox (%): 95 - Physical Exam General: Alert, In no apparent distress, Oriented x3 HEENT: Mucous membr. moist/pink Neck: JVD not distended Respiratory: Clear to auscultation bilaterally, Diminished Cardiovascular: Regular rate/rhythm, Normal S1 S2, Edema (1+ bilateral lower extremity pitting edema) Gastrointestinal: Soft and benign, Non-distended Musculoskeletal: Erythema (Bilateral lower extremity) Integumentary: Other (Bilateral lower extremity venostasis dermatitis) Neurological: Normal strength at 5/5 x4 extr Assessment And Plan - Current Problems (Diagnosis) (1) Acute diastolic heart failure Current Visit: Yes Status: Acute (2) Chronic kidney disease, stage 5 Current Visit: Yes Status: Acute (3) Chronic anemia Current Visit: Yes Status: Acute (4) Diabetes Current Visit: Yes Status: Chronic Qualifiers: Diabetes mellitus type: type 2 Diabetes mellitus penitentiary insulin use: with penitentiary use Diabetes mellitus complication status: with kidney complications Diabetes mellitus complication detail: with chronic kidney disease Chronic kidney disease stage: unspecified stage Qualified Code(s): E11.22 - Type 2 diabetes mellitus with diabetic chronic kidney disease; 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 Hemoglobin is up to 7.6 Patient is iron deficient and getting IV iron. Patient responded to IV Lasix and pulmonary edema resolved but he is still complaining of shortness of breath. Nephrology recommend hemodialysis. Patient agrees to hemodialysis. General surgery consulted for dialysis access. Continue IV Lasix and monitor input and output. Fluid restriction to 1200 ml per day. Continue Coreg 25 mg b.i.d and amlodipine 10 mg daily. Nephrology increased doxazosin to 4 mg b.i.d. Echocardiogram shows normal EF.
[2020-12-25] MEDS: DOXAZOSIN 4 MG TAB PO SCH (20:05)
[2020-12-25] MEDS ORDERED: MANNITOL 25% 12.5 GM/50 ML VIAL IV PRN (20:16)
[2020-12-25] MEDS ORDERED: NA CHLORIDE 0.9% 1,000 ML IV PRN (20:16)
[2020-12-25] MEDS ORDERED: ALBUMIN HUMAN 25% 50 ML IV SCH (21:00)
[2020-12-25] MEDS: TRAZODONE 50 MG TABLET PO SCH (22:28)
[2020-12-25] MEDS ORDERED: GABAPENTIN 100 MG CAP PO SCH (22:33)
[2020-12-25] MEDS ORDERED: GABAPENTIN 100 MG CAP PO ONE (22:38)
[2020-12-26] MEDS: HYDRALAZINE HCL 20 MG/ML VIAL IV PRN (04:30)
[2020-12-26 04:59] LABS: Absolute Lymphocytes (CBC) 1.1 K/uL (0.7-4.9); Basophils % 0.5 % (0-1.3); Hematocrit 25.5 % (39.6-49.0); Lymphocytes % 12.3 % (15.3-44.8); MPV 8.2 fL (7.6-11.3); RBC Red Blood Cell Count 2.86 M/uL (4.33-5.43)
[2020-12-26 05:14] LABS: Albumin 3.4 g/dL (3.4-5.0); Potassium 4.6 mmol/L (3.5-5.1)
[2020-12-26] MEDS: INSULIN -REGULAR HUMAN 50 UNIT/0.5 ML ML SQ SCH ×4 (07:30→20:57)
[2020-12-26] MEDS: CALCITROL 0.25 MCG CAP PO SCH (09:00)
[2020-12-26] MEDS: AMLODIPINE 10 MG TAB PO SCH ×2 (09:00→14:18)
[2020-12-26] MEDS: carvediloL 25 MG TAB PO SCH ×2 (09:00→20:06)
[2020-12-26] MEDS: VITAMIN D 5,000 UNIT CAP PO SCH (09:00)
[2020-12-26] MEDS: COENZYME Q10- 200 MG CAP PO SCH (09:00)
[2020-12-26] MEDS: FUROSEMIDE 40 MG/4 ML VIAL IV SCH ×2 (09:00→17:41)
[2020-12-26] MEDS: DOXAZOSIN 4 MG TAB PO SCH ×2 (09:00→20:08)
[2020-12-26] MEDS: SOD FERRIC GLUC COMPLX/SUCROSE 125 MG in NA CHLORIDE 0.9% 100 ML IV SCH (09:49)
[2020-12-26] MEDS ORDERED: NS 0.9% VIAL 10 ML ONE (10:29)
[2020-12-26] MEDS ORDERED: HEPARIN 5000 UNIT/ML 1 ML VIAL ONE ×2 (10:29)
[2020-12-26] MEDS ORDERED: NA CHLORIDE 0.9% 100 ML IV ONE (10:30)
[2020-12-26] MEDS ORDERED: BUPIVACAINE 0.5% PF 10 ML VIAL ONE (10:30)
[2020-12-26] MEDS ORDERED: HOME MED 1 EA UNK (Hydroxyzine Hcl [Atarax] 50 MG Tablet) PO PRN (10:35)
[2020-12-26] MEDS ORDERED: NA CHLORIDE 0.9% 500 ML ONE ×2 (11:00→12:04)
[2020-12-26] MEDS ORDERED: propofoL 200 MG/20 ML VIAL IV ONE ×4 (11:05→12:04)
[2020-12-26] MEDS ORDERED: FENTANYL CITR 100 MCG/2 ML ONE (11:05)
[2020-12-26] MEDS ORDERED: LIDOCAINE 2% MPF 5 ML VIAL ONE (11:05)
[2020-12-26] MEDS ORDERED: ROCURONIUM 50 MG/5 ML VIAL IV ONE (11:05)
[2020-12-26] MEDS ORDERED: MIDAZOLAM HCL 2 MG/2 ML INJ ONE (11:05)
[2020-12-26] MEDS ORDERED: ONDANSETRON 4 MG/2 ML VIAL ONE (11:06)
[2020-12-26] MEDS ORDERED: CEFAZOLIN/SWI 1gm 1 GM/10 ML SYR ONE (11:34)
[2020-12-26] MEDS ORDERED: DIPHENHYDRAMINE 50 MG/ML VIAL ONE (11:55)
--- NOTE | 2020-12-26 12:28 | P.BOP ---
Preoperative diagnosis: ESRD, Morbid obesity, CHF Postoperative diagnosis: same Primary procedure: 1. Placment of cuffed HD hemosplit catheter Secondary procedure: 2. Interpretation of fluoroscopy Other procedure(s): 3. RIght neck ultrasound Estimated blood loss: <10cc Specimen: none Findings: as above Anesthesia: MAC Complications: None Drain(s): Other Transferred to: Recovery Room Condition: Good
--- NOTE | 2020-12-26 14:00 | RAD REPORT ---
EXAM DESCRIPTION: RAD - Chest Single View - 12/26/2020 1:55 pm CLINICAL HISTORY: S/P HEMODIALYSIS CATH PLACEMENT COMPARISON: Chest Single View dated 12/25/2020; Chest Single View dated 12/24/2020; Chest Single View dated 11/15/2019; Chest Single View dated 05/02/2019 FINDINGS: Interval placement of a hemodialysis catheter. The tip overlies the expected location of t he right brachiocephalic vein. Cardiomegaly. Lungs are otherwise clear. No pneumothorax IMPRESSION: Hemodialysis catheter with tip overlying the expected location of the right brachiocepha lic vein. No pneumothorax.
--- NOTE | 2020-12-26 14:27 | OP ---
Date of Procedure: 12/26/2020 Surgeon: Suleman Arias MD Preoperative Diagnoses: End-stage renal disease, hypertension, morbid obesity, congestive heart fail ure. Postoperative Diagnoses: End-stage renal disease, hypertension, morbid obesity, congestive heart tila lure. Procedures: 1.Placement of a HemoSplit hemodialysis catheter on the right jugular vein. 2.Interpretation of fluoroscopy. 3.Ultrasound of the right neck. Anesthesia: MAC plus local. Complications: None. Implant: HemoSplit hemodialysis catheter. Specimen: None. Complications: None. Ebl: Less than 10 cc. Indication: The patient is a 55-year-old patient in need of hemodialysis. They asked for a hemodial ysis catheter with HemoSplit with cough. Benefits, alternatives, and risks fully explained to the pa tient including, but not limited to infection, bleeding, damage to adjacent structures, anesthesia co mplication, pneumothorax, hemothorax, PE, DVTs, RI and even . He also understands this may not relieve symptoms. He might need more than one surgical intervention. He understood, signed a consen t. We also discussed with the patient the need to remove this catheter as soon as possible. If it i s going to be permanent, he would prefer access that he will be provided in [place]. The nephrologis t will be helping with that. If he does not need dialysis catheter anymore, then remove that as soon as possible. Benefits, alternatives, and risks fully explained to him. He understands this and catarino ntenance of this catheter and also avoidance of getting that dirty, manipulated with the persons not properly trained. He understood, signed a consent. Procedure In Detail: The patient was brought to the operating room, placed in supine position. Anes thesia was done without complication. Chest and neck area were prepped and draped in sterile fashion . The patient was placed in Trendelenburg position. Ultrasound was done of the right neck and ident ified the right jugular vein at the first attempt and also seemed to be compressible. At that moment , I proceeded then to carefully place local anesthetic and an 18-gauge needle in the right internal j ugular vein at the first attempt. Guidewire was passed through. Needle was removed. At that moment , I proceeded to select the proper size for him. I offered him HemoSplit hemodialysis catheter. He is an obese patient with a large fatty pad almost none. Next, we selected 19 cm for him. The cathet er was tunneled from the right upper chest into the neck region under a visualization. After that, u sing fluoroscopy, we proceeded then to wire. We carefully put serial dilators through the area and then we put the introducer sheath. After we did the introducer sheath, then we proceeded t hen to peel off the introducer sheath after the catheter was placed through the introducer sheath and the guidewire was removed. Excellent backflow and inflow. Obviously, we have a body habitus that i s providing us with short neck and also large fat pad, but the catheter is working well. There is a good curve. There is no kink in that region and is flushing properly and the heparin pack was placed in. The catheter was secured in place with 2-0 nylon. The patient was brought back to normal posit ion and went to recovery in stable condition. A chest x-ray was ordered stat. The patient tolerated the procedure well. We will begin to remain under the care of the Dr. Russo. KLEVER/JIMMY Voice ID: [id number] Report ID: [id number]
--- NOTE | 2020-12-26 14:52 | P.PN ---
Subjective Date of Service: 12/26/20 Chief Complaint: CHF exacerbation Patient complaining of stuffy nose and anxiety. His hemoglobin is up to 8.3 Physical Examination - Vital Signs Temperature: 97.5 F Blood Pressure: 181/71 Pulse: 81 Respirations: 18 Pulse Ox (%): 91 - Physical Exam General: Alert, In no apparent distress, Oriented x3, Obese HEENT: Mucous membr. moist/pink Neck: JVD not distended Respiratory: Clear to auscultation bilaterally, Normal air movement Cardiovascular: No edema, Normal pulses, Regular rate/rhythm Gastrointestinal: Soft and benign, Non-distended Musculoskeletal: No swelling Integumentary: No rashes, No erythema Neurological: Normal strength at 5/5 x4 extr Assessment And Plan - Current Problems (Diagnosis) (1) Acute diastolic heart failure Current Visit: Yes Status: Acute (2) Chronic kidney disease, stage 5 Current Visit: Yes Status: Acute (3) Chronic anemia Current Visit: Yes Status: Acute (4) Diabetes Current Visit: Yes Status: Chronic Qualifiers: Diabetes mellitus type: type 2 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 Patient responded to IV Lasix and pulmonary edema resolved. Nephrology recommend hemodialysis. Patient agrees to hemodialysis. Dialysis access placed today. Hemodialysis per nephrology. On IV Lasix. Monitor input and output. Continue Coreg 25 mg b.i.d, amlodipine 10 mg daily and doxazosin. Echocardiogram shows normal EF. Resumed psych medications-Abilify. Ativan p.r.n. for anxiety. Flonase for nasal congestion.
--- NOTE | 2020-12-26 16:32 | RAD REPORT ---
EXAM DESCRIPTION: RAD - Fluoroscopy <1 Hour - 12/26/2020 3:10 pm CLINICAL HISTORY: PORT A CATH COMPARISON: No comparisons FINDINGS: Intraoperative fluoroscopic images showing placement of a right IJ approach dialysis ina ter with tip overlying the right internal jugular/ brachiocephalic veins. Forty-two intraoperative fluoroscopic images were obtained. Total fluoro time 2.3 minutes. Total dose: 3.3 mGy IMPRESSION: Intraoperative fluoroscopic images showing placement of a right IJ approach dialysis cat heter.
[2020-12-26] MEDS: hydrOXYzine HCL 25 MG TAB PO PRN (18:31)
[2020-12-26] MEDS ORDERED: DOXAZOSIN 2 MG TAB ONE ×2 (19:47→20:32)
[2020-12-26] MEDS: FLUTICASONE 50MCG NASAL SPRAY NAS SCH (20:03)
[2020-12-26] MEDS: TRAZODONE 50 MG TABLET PO SCH (20:05)
[2020-12-26] MEDS: ATORVASTATIN 40 MG TAB PO SCH (20:05)
[2020-12-26] MEDS: LORazepam 2 MG/ML VIAL IV PRN (20:08)
--- NOTE | 2020-12-26 21:47 | P.PN ---
Date of Service: 12/26/20 Vital Signs Temp Pulse Resp BP Pulse Ox 97.9 F 89 18 156/69 H 91 12/26/20 20:00 12/26/20 20:08 12/26/20 20:00 12/26/20 20:08 12/26/20 20:00 Medications Acetaminophen (Acetaminophen 500 Mg Tab) 500 mg PO Q4HP PRN PRN Reason: Pain scale 2-4 (Mild) Last Admin: 12/25/20 16:07 Dose: 500 mg Documented by: Albuterol Sulfate (Albuterol 2.5 Mg/3 Ml Neb Shira) 2.5 mg NEB Q6HP PRN PRN Reason: SHORTNESS OF BREATH Last Admin: 12/25/20 16:48 Dose: 2.5 mg Documented by: Amlodipine Besylate (Amlodipine 10 Mg Tab) 10 mg PO DAILY [facility] Last Admin: 12/26/20 14:18 Dose: 10 mg Documented by: Aripiprazole (Aripiprazole 5 Mg Tab) 20 mg PO DAILY [facility] Atorvastatin Calcium (Atorvastatin 40 Mg Tab) 40 mg PO BEDTIME [facility] Last Admin: 12/26/20 20:05 Dose: 40 mg Documented by: Calcitriol (Calcitrol 0.25 Mcg Cap) 0.5 mcg PO DAILY [facility] Last Admin: 12/26/20 09:00 Dose: Not Given Documented by: Carvedilol (Carvedilol 25 Mg Tab) 25 mg PO BID [facility] Last Admin: 12/26/20 20:06 Dose: 25 mg Documented by: Cholecalciferol (Vitamin D 5,000 Unit Cap) 5,000 unit PO DAILY [facility] Last Admin: 12/26/20 09:00 Dose: Not Given Documented by: Coenzyme Q10 (Coenzyme Q10- 200 Mg Cap) 200 mg PO DAILY [facility] Last Admin: 12/26/20 09:00 Dose: Not Given Documented by: Doxazosin Mesylate (Doxazosin 4 Mg Tab) 4 mg PO BID [facility] Last Admin: 12/26/20 20:08 Dose: 4 mg Documented by: Fluticasone Propionate (Fluticasone 50mcg Nasal [place]) 2 sprays ANALILIA BID [facility] Last Admin: 12/26/20 20:03 Dose: 2 spr Documented by: Furosemide (Furosemide 40 Mg/4 Ml Vial) 40 mg IV BIDL [facility] Last Admin: 12/26/20 17:41 Dose: 40 mg Documented by: Heparin Sodium (Porcine) (Heparin 1,000 Unit/Ml Vial) 6,000 unit IV EVERY HD PRN PRN Reason: AFTER EACH Last Admin: 12/26/20 17:08 Dose: 6,000 unit Documented by: Hydralazine HCl (Hydralazine Hcl 20 Mg/Ml Vial) 10 mg IV Q4HP PRN PRN Reason: Titrate to SBP (MUST DEFINE) Last Admin: 12/26/20 04:30 Dose: 10 mg Documented by: Hydroxyzine HCl (Hydroxyzine Hcl 25 Mg Tab) 50 mg PO Q6HP PRN PRN Reason: ITCHING Last Admin: 12/26/20 18:31 Dose: 50 mg Documented by: Sodium Chloride (Sodium Chloride) 250 mls @ 0 mls/hr IV .Q0M MARGARET Ferric Sodium Gluconate Complex 125 mg/ Sodium Chloride 110 mls @ 100 mls/hr IV DAILY [facility] Stop: 01/01/21 10:05 Last Admin: 12/26/20 09:49 Dose: 110 mls Documented by: Albumin Human (Albumin 25%) 50 mls @ 100 mls/hr IV EVERY HD [facility] Insulin Human Regular (Insulin -Regular Human 50 Unit/0.5 Ml Ml) 0 unit SQ ACHS [facility]; Protocol Last Admin: 12/26/20 20:57 Dose: 5 unit Documented by: Lorazepam (Lorazepam 2 Mg/Ml Vial) 1 mg IV Q8H PRN PRN Reason: ANXIETY Last Admin: 12/26/20 20:08 Dose: 1 mg Documented by: Mannitol (Mannitol 25% 12.5 Gm/50 Ml Vial) 12.5 gm IV EVERY HD PRN PRN Reason: Titrate to SBP (MUST DEFINE) Ondansetron HCl (Ondansetron 4 Mg/2 Ml Vial) 4 mg IV Q6HP PRN PRN Reason: NAUSEA / VOMITING Last Admin: 12/25/20 09:51 Dose: 4 mg Documented by: Sodium Chloride (Flush Normal Saline 10 Ml) 10 ml IV BID [facility] Last Admin: 12/26/20 09:49 Dose: 10 ml Documented by: Trazodone HCl (Trazodone 50 Mg Tablet) 100 mg PO BEDTIME [facility] Last Admin: 12/26/20 20:05 Dose: 100 mg Documented by: Assessment/ Plan: Nephrology Fatigue and weakness. No chest pain. No acute events overnight. Vitals, medications, blood work and imaging reviewed in the chart. General: In no apparent distress, Oriented x3, Cooperative. Obese. HEENT: Atraumatic Neck: Supple Respiratory: Diminished Cardiovascular: Regular rate/rhythm, Edema Gastrointestinal: Soft and benign, Non-distended Musculoskeletal: No clubbing, No contractures Integumentary: No rashes, No cyanosis Neurological: Normal speech Laboratory Data (last 24 hrs) 12/24/20 03:24: PT 11.8, INR 1.03 12/24/20 03:24: WBC 9.90, Hgb 7.6 L, Hct 22.4 L, Plt Count 229 12/24/20 03:24: Sodium 144, Potassium 5.1, BUN 52 H, Creatinine 5.23 H*, Glucose 152 H, Magnesium 2.2, Total Bilirubin 0.4, AST 7 L, ALT 15, Alkaline Phosphatase 126 H Imagings Data: EXAM DESCRIPTION: RAD - Chest Single View - 12/24/2020 3:44 am CLINICAL HISTORY: DYSPNEA Chest pain. COMPARISON: Chest Single View dated 11/15/2019; Chest Single View dated 05/02/2019 FINDINGS: Portable technique limits examination quality. Mild pulmonary edema. The heart is moderately enlarged in size. No displaced f ractures. IMPRESSION: Mild CHF. EXAM DESCRIPTION: US - Renal Ultrasound-Complete - 12/24/2020 6:23 am CLINICAL HISTORY: ARF Flank pain COMPARISON: Renal Ultrasound-Complete dated 11/15/2019 FINDINGS: Both kidneys are normal in size, shape and echotexture. The right kidney measures 11.0 x 5.2 x 4.1 cm. No hydronephrosis, focal mass or perinephric fluid. The left kidney measures 12.7 x 6.5 x 5.1 cm. No hydronephrosis, focal mass or perinephric fluid. The urinary bladder is incompletely distended without gross abnormality seen. IMPRESSION: Unremarkable renal sonogram. Conclusions/Impression: PORFIRIO may be CRS CKD V with proteinuria ESRD HD started 12-26-20 -No NSAIDs -Renal US reviewed -HBV panel pending -Next HD tomorrow -Arrange for dialysis placement HTN with CKD/ CHF LVEF 61% -Continue Coreg -Continue Doxazosin 4mg BID -Continue Amlodipine Diastolic CHF, A/C -Continue furosemide -Continue CoQ10 -Echo reviewed DM II with CKD -RISS Anemia in chronic illness Iron deficiency -Retacrit PRN -Continue IV iron -Transfuse PRBC as needed
[2020-12-27] MEDS: HYDRALAZINE HCL 20 MG/ML VIAL IV PRN (01:20)
[2020-12-27 06:01] LABS: Basophils % 0.7 % (0-1.3); Hematocrit 20.5 % (39.6-49.0); Lymphocytes % 11.3 % (15.3-44.8); MPV 8.1 fL (7.6-11.3); RBC Red Blood Cell Count 2.32 M/uL (4.33-5.43)
[2020-12-27 06:31] LABS: Albumin 2.8 g/dL (3.4-5.0); Phosphorus 3.7 mg/dL (2.5-4.9); Potassium 4.3 mmol/L (3.5-5.1)
[2020-12-27] MEDS: INSULIN -REGULAR HUMAN 50 UNIT/0.5 ML ML SQ SCH ×4 (07:30→20:58)
[2020-12-27] MEDS ORDERED: DOXAZOSIN 2 MG TAB ONE ×2 (07:43→19:59)
[2020-12-27] MEDS: CALCITROL 0.25 MCG CAP PO SCH (07:51)
[2020-12-27] MEDS: ARIPiprazole 5 MG TAB PO SCH (07:51)
[2020-12-27] MEDS: VITAMIN D 5,000 UNIT CAP PO SCH (07:52)
[2020-12-27] MEDS: COENZYME Q10- 200 MG CAP PO SCH (07:52)
[2020-12-27] MEDS: FLUTICASONE 50MCG NASAL SPRAY NAS SCH ×2 (07:53→20:37)
[2020-12-27] MEDS: DOXAZOSIN 4 MG TAB PO SCH ×2 (07:56→20:36)
[2020-12-27] MEDS: carvediloL 25 MG TAB PO SCH ×2 (07:57→20:35)
[2020-12-27] MEDS: AMLODIPINE 10 MG TAB PO SCH (07:57)
[2020-12-27] MEDS: FUROSEMIDE 40 MG/4 ML VIAL IV SCH ×2 (07:58→16:27)
[2020-12-27] MEDS: ACETAMINOPHEN 500 MG TAB PO PRN ×2 (08:10→13:38)
[2020-12-27] MEDS ORDERED: EPOETIN ALFA-EPBX 10,000 UNIT/ML VIAL SQ SCH (09:00)
[2020-12-27] MEDS ORDERED: VITAMIN D 5,000 UNIT CAP PO SCH (09:00)
[2020-12-27] MEDS ORDERED: CALCITROL 0.25 MCG CAP PO SCH (09:00)
[2020-12-27] MEDS: SOD FERRIC GLUC COMPLX/SUCROSE 125 MG in NA CHLORIDE 0.9% 100 ML IV SCH (09:21)
[2020-12-27] MEDS: LORazepam 2 MG/ML VIAL IV PRN ×2 (10:35→20:37)
[2020-12-27] MEDS: hydrOXYzine HCL 25 MG TAB PO PRN (13:35)
--- NOTE | 2020-12-27 14:43 | P.PN ---
Subjective Date of Service: 12/27/20 Chief Complaint: CHF exacerbation Status post hemodialysis yesterday. Hemoglobin is down to 6.8. Patient is still declining blood transfusion. Blood pressure moderately elevated. Physical Examination - Vital Signs Temperature: 97.8 F Blood Pressure: 154/69 Pulse: 64 Respirations: 18 Pulse Ox (%): 99 - Physical Exam General: Alert, In no apparent distress, Oriented x3 HEENT: Mucous membr. moist/pink Neck: JVD not distended Respiratory: Diminished, Other (Nonlabored breathing.) Cardiovascular: Regular rate/rhythm, Normal S1 S2, Edema Gastrointestinal: Soft and benign, Non-distended, No tenderness Musculoskeletal: No swelling Neurological: Normal strength at 5/5 x4 extr Assessment And Plan - Current Problems (Diagnosis) (1) Acute diastolic heart failure Current Visit: Yes Status: Acute (2) Chronic kidney disease, stage 5 Current Visit: Yes Status: Acute (3) Chronic anemia Current Visit: Yes Status: Acute (4) Diabetes Current Visit: Yes Status: Chronic Qualifiers: Diabetes mellitus type: type 2 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 PRBC transfusion whenever patient agrees to it. Continue to monitor H&H. Patient responded to IV Lasix and pulmonary edema resolved. Status post hemodialysis yesterday. Further Hemodialysis per nephrology. On IV Lasix for acute on chronic diastolic heart failure. Monitor input and output. Continue Coreg 25 mg b.i.d, amlodipine 10 mg daily and doxazosin. Echocardiogram shows normal EF. Resumed psych medications-Abilify. Ativan p.r.n. for anxiety. Flonase for nasal congestion. Patient may need outpatient hemodialysis seat.
[2020-12-27] MEDS ORDERED: EPOETIN ALFA-EPBX 10,000 UNIT/ML VIAL SQ ONE (17:19)
--- NOTE | 2020-12-27 20:19 | P.PN ---
Date of Service: 12/27/20 Vital Signs Temp Pulse Resp BP Pulse Ox 97.8 F 53 17 113/58 L 93 12/27/20 16:00 12/27/20 16:27 12/27/20 16:00 12/27/20 16:27 12/27/20 16:00 Medications Acetaminophen (Acetaminophen 500 Mg Tab) 500 mg PO Q4HP PRN PRN Reason: Pain scale 2-4 (Mild) Last Admin: 12/27/20 13:38 Dose: 500 mg Documented by: Albuterol Sulfate (Albuterol 2.5 Mg/3 Ml Neb Shira) 2.5 mg NEB Q6HP PRN PRN Reason: SHORTNESS OF BREATH Last Admin: 12/25/20 16:48 Dose: 2.5 mg Documented by: Amlodipine Besylate (Amlodipine 10 Mg Tab) 10 mg PO DAILY [facility] Last Admin: 12/27/20 07:57 Dose: 10 mg Documented by: Aripiprazole (Aripiprazole 5 Mg Tab) 20 mg PO DAILY [facility] Last Admin: 12/27/20 07:51 Dose: 20 mg Documented by: Atorvastatin Calcium (Atorvastatin 40 Mg Tab) 40 mg PO BEDTIME [facility] Last Admin: 12/26/20 20:05 Dose: 40 mg Documented by: Calcitriol (Calcitrol 0.25 Mcg Cap) 0.5 mcg PO DAILY [facility] Last Admin: 12/27/20 07:51 Dose: 0.5 mcg Documented by: Carvedilol (Carvedilol 25 Mg Tab) 25 mg PO BID [facility] Last Admin: 12/27/20 07:57 Dose: 25 mg Documented by: Cholecalciferol (Vitamin D 5,000 Unit Cap) 5,000 unit PO DAILY [facility] Last Admin: 12/27/20 07:52 Dose: 5,000 unit Documented by: Coenzyme Q10 (Coenzyme Q10- 200 Mg Cap) 200 mg PO DAILY [facility] Last Admin: 12/27/20 07:52 Dose: 200 mg Documented by: Doxazosin Mesylate (Doxazosin 4 Mg Tab) 4 mg PO BID [facility] Last Admin: 12/27/20 07:56 Dose: 4 mg Documented by: Fluticasone Propionate (Fluticasone 50mcg Nasal [place]) 2 sprays ANALILIA BID [facility] Last Admin: 12/27/20 07:53 Dose: 2 spr Documented by: Furosemide (Furosemide 40 Mg/4 Ml Vial) 40 mg IV BIDL [facility] Last Admin: 12/27/20 16:27 Dose: 40 mg Documented by: Heparin Sodium (Porcine) (Heparin 1,000 Unit/Ml Vial) 6,000 unit IV EVERY HD PRN PRN Reason: AFTER EACH Last Admin: 12/27/20 15:54 Dose: 6,000 unit Documented by: Hydralazine HCl (Hydralazine Hcl 20 Mg/Ml Vial) 10 mg IV Q4HP PRN PRN Reason: Titrate to SBP (MUST DEFINE) Last Admin: 12/27/20 01:20 Dose: 10 mg Documented by: Hydroxyzine HCl (Hydroxyzine Hcl 25 Mg Tab) 50 mg PO Q6HP PRN PRN Reason: ITCHING Last Admin: 12/27/20 13:35 Dose: 50 mg Documented by: Sodium Chloride (Sodium Chloride) 250 mls @ 0 mls/hr IV .Q0M [facility] Ferric Sodium Gluconate Complex 125 mg/ Sodium Chloride 110 mls @ 100 mls/hr IV DAILY [facility] Stop: 01/01/21 10:05 Last Admin: 12/27/20 09:21 Dose: 110 mls Documented by: Albumin Human (Albumin 25%) 50 mls @ 100 mls/hr IV EVERY [facility] Insulin Human Regular (Insulin -Regular Human 50 Unit/0.5 Ml Ml) 0 unit SQ ACHS [facility]; Protocol Last Admin: 12/27/20 16:32 Dose: 3 unit Documented by: Lorazepam (Lorazepam 2 Mg/Ml Vial) 1 mg IV Q8H PRN PRN Reason: ANXIETY Last Admin: 12/27/20 10:35 Dose: 1 mg Documented by: Mannitol (Mannitol 25% 12.5 Gm/50 Ml Vial) 12.5 gm IV EVERY HD PRN PRN Reason: Titrate to SBP (MUST DEFINE) Ondansetron HCl (Ondansetron 4 Mg/2 Ml Vial) 4 mg IV Q6HP PRN PRN Reason: NAUSEA / VOMITING Last Admin: 12/25/20 09:51 Dose: 4 mg Documented by: Sodium Chloride (Flush Normal Saline 10 Ml) 10 ml IV BID [facility] Last Admin: 12/27/20 07:59 Dose: 10 ml Documented by: Trazodone HCl (Trazodone 50 Mg Tablet) 100 mg PO BEDTIME [facility] Last Admin: 12/26/20 20:05 Dose: 100 mg Documented by: Assessment/ Plan: Nephrology Fatigue and weakness. No chest pain. No acute events overnight. HD went well yesterday. Declined a blood transfusion. Vitals, medications, blood work and imaging reviewed in the chart. General: In no apparent distress, Oriented x3, Cooperative. Obese. HEENT: Atraumatic Neck: Supple Respiratory: CTA Cardiovascular: Regular rate/rhythm, Edema Gastrointestinal: Soft and benign, Non-distended Musculoskeletal: No clubbing, No contractures Integumentary: No rashes, No cyanosis Neurological: Normal speech Laboratory Data (last 24 hrs) 12/24/20 03:24: PT 11.8, INR 1.03 12/24/20 03:24: WBC 9.90, Hgb 7.6 L, Hct 22.4 L, Plt Count 229 12/24/20 03:24: Sodium 144, Potassium 5.1, BUN 52 H, Creatinine 5.23 H*, Glucose 152 H, Magnesium 2.2, Total Bilirubin 0.4, AST 7 L, ALT 15, Alkaline Phosphatase 126 H Imagings Data: EXAM DESCRIPTION: RAD - Chest Single View - 12/24/2020 3:44 am CLINICAL HISTORY: DYSPNEA Chest pain. COMPARISON: Chest Single View dated 11/15/2019; Chest Single View dated 05/02/2019 FINDINGS: Portable technique limits examination quality. Mild pulmonary edema. The heart is moderately enlarged in size. No displaced fractures. IMPRESSION: Mild CHF. EXAM DESCRIPTION: US - Renal Ultrasound-Complete - 12/24/2020 6:23 am CLINICAL HISTORY: ARF Flank pain COMPARISON: Renal Ultrasound-Complete dated 11/15/2019 FINDINGS: Both kidneys are normal in size, shape and echotexture. The right kidney measures 11.0 x 5.2 x 4.1 cm. No hydronephrosis, focal mass or perinephric fluid. The left kidney measures 12.7 x 6.5 x 5.1 cm. No hydronephrosis, focal mass or perinephric fluid. The urinary bladder is incompletely distended without gross abnormality seen. IMPRESSION: Unremarkable renal sonogram. Conclusions/Impression: PROFIRIO may be CRS CKD V with proteinuria ESRD HD started 12-26-20 -No NSAIDs -Renal US reviewed -HBV panel pending -Next HD Tuesday -Arrange for dialysis placement/ Social work consulted HTN with CKD/ CHF LVEF 61% -Continue Coreg -Continue Doxazosin 4mg BID -Continue Amlodipine Diastolic CHF, A/C -Continue furosemide -Continue CoQ10 -Echo reviewed DM II with CKD -RISS Anemia in chronic illness Iron deficiency -Retacrit PRN -Continue IV iron -Transfuse PRBC as needed if the patient agrees CKD MBD -Continue Calcitriol
[2020-12-27] MEDS: TRAZODONE 50 MG TABLET PO SCH (20:36)
[2020-12-27] MEDS: ATORVASTATIN 40 MG TAB PO SCH (20:58)
[2020-12-28 05:06] VITALS: BMI 45.1
[2020-12-28 05:52] LABS: Absolute Lymphocytes (CBC) 1.2 K/uL (0.7-4.9); Basophils % 0.6 % (0-1.3); Hematocrit 21.4 % (39.6-49.0); Lymphocytes % 12.3 % (15.3-44.8); MPV 7.8 fL (7.6-11.3)
[2020-12-28 06:03] LABS: Albumin 2.9 g/dL (3.4-5.0); Phosphorus 3.9 mg/dL (2.5-4.9); Potassium 4.4 mmol/L (3.5-5.1)
[2020-12-28] MEDS: COENZYME Q10- 200 MG CAP PO SCH (08:58)
[2020-12-28] MEDS: AMLODIPINE 10 MG TAB PO SCH (08:59)
[2020-12-28] MEDS ORDERED: EPOETIN ALFA 10,000 UNIT/ML VIAL SQ SCH (09:00)
[2020-12-28] MEDS: CALCITROL 0.25 MCG CAP PO SCH (09:01)
[2020-12-28] MEDS: FUROSEMIDE 40 MG/4 ML VIAL IV SCH ×3 (09:02→16:23)
[2020-12-28] MEDS: carvediloL 25 MG TAB PO SCH ×2 (09:02→21:49)
[2020-12-28] MEDS: ARIPiprazole 5 MG TAB PO SCH (09:02)
[2020-12-28] MEDS: VITAMIN D 5,000 UNIT CAP PO SCH (09:02)
[2020-12-28] MEDS: INSULIN -REGULAR HUMAN 50 UNIT/0.5 ML ML SQ SCH ×4 (09:03→21:00)
[2020-12-28] MEDS: FLUTICASONE 50MCG NASAL SPRAY NAS SCH ×2 (09:04→21:52)
[2020-12-28] MEDS: DOXAZOSIN 4 MG TAB PO SCH ×2 (09:06→21:53)
[2020-12-28] MEDS: LOSARTAN POTASSIUM 50 MG TABLET PO SCH ×2 (09:07→21:50)
[2020-12-28] MEDS: hydrOXYzine HCL 25 MG TAB PO PRN (09:11)
[2020-12-28] MEDS: ACETAMINOPHEN 500 MG TAB PO PRN (09:11)
[2020-12-28] MEDS: SOD FERRIC GLUC COMPLX/SUCROSE 125 MG in NA CHLORIDE 0.9% 100 ML IV SCH (10:20)
[2020-12-28] MEDS: LORazepam 2 MG/ML VIAL IV PRN (11:13)
[2020-12-28] MEDS: HYDRALAZINE HCL 20 MG/ML VIAL IV PRN (13:12)
--- NOTE | 2020-12-28 13:58 | P.PN ---
Subjective Date of Service: 12/28/20 Chief Complaint: CHF exacerbation Status post hemodialysis on Tuesday 12/26. Hemoglobin is down to 6.8. Patient is still declining blood transfusion. Blood pressure remain elevated. Physical Examination - Vital Signs Temperature: 97.0 F Blood Pressure: 189/79 Pulse: 70 Respirations: 18 Pulse Ox (%): 93 - Physical Exam General: Alert, In no apparent distress, Oriented x3 HEENT: Mucous membr. moist/pink Neck: JVD not distended Respiratory: Clear to auscultation bilaterally, Diminished Cardiovascular: Regular rate/rhythm, Normal S1 S2, Edema (Bilateral lower extremities) Gastrointestinal: Normal bowel sounds, Soft and benign, Non-distended Musculoskeletal: Swelling (Bilateral legs) Integumentary: Other (Bilateral lower extremity venous stasis dermatitis) Neurological: Normal strength at 5/5 x4 extr Assessment And Plan - Current Problems (Diagnosis) (1) Acute diastolic heart failure Current Visit: Yes Status: Acute (2) Chronic kidney disease, stage 5 Current Visit: Yes Status: Acute (3) Chronic anemia Current Visit: Yes Status: Acute (4) Diabetes Current Visit: Yes Status: Chronic Qualifiers: Diabetes mellitus type: type 2 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 PRBC transfusion whenever patient agrees to it. Continue to monitor H&H. Patient responded to IV Lasix and pulmonary edema resolved. Continue Lasix for CHF. Status post hemodialysis. Next dialysis is Tuesday, and patient will be put on MWF routine. Monitor input and output. Continue Coreg 25 mg b.i.d, amlodipine 10 mg daily and doxazosin. Hydralazine p.r.n. for BP spikes. Echocardiogram shows normal EF. Resumed psych medications-Abilify. Ativan p.r.n. for anxiety. Flonase for nasal congestion. 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
[2020-12-28] MEDS ORDERED: DOXAZOSIN 2 MG TAB ONE (21:42)
[2020-12-28] MEDS: TRAZODONE 50 MG TABLET PO SCH (21:50)
[2020-12-28] MEDS: ATORVASTATIN 40 MG TAB PO SCH (21:51)
[2020-12-29] MEDS: LORazepam 2 MG/ML VIAL IV PRN (01:25)
[2020-12-29 04:34] LABS: Absolute Lymphocytes (CBC) 1.1 K/uL (0.7-4.9); Basophils % 0.8 % (0-1.3); Hematocrit 23.2 % (39.6-49.0); MPV 7.9 fL (7.6-11.3); RBC Red Blood Cell Count 2.58 M/uL (4.33-5.43)
[2020-12-29 05:12] LABS: Albumin 3.2 g/dL (3.4-5.0); Phosphorus 3.7 mg/dL (2.5-4.9); Potassium 4.4 mmol/L (3.5-5.1)
[2020-12-29] MEDS: INSULIN -REGULAR HUMAN 50 UNIT/0.5 ML ML SQ SCH ×4 (07:30→21:05)
[2020-12-29] MEDS: COENZYME Q10- 200 MG CAP PO SCH (09:00)
[2020-12-29] MEDS: CALCITROL 0.25 MCG CAP PO SCH (09:00)
[2020-12-29] MEDS: ARIPiprazole 5 MG TAB PO SCH (09:00)
[2020-12-29] MEDS: DOXAZOSIN 4 MG TAB PO SCH ×2 (09:00→21:12)
[2020-12-29] MEDS: AMLODIPINE 10 MG TAB PO SCH (09:01)
[2020-12-29] MEDS: SOD FERRIC GLUC COMPLX/SUCROSE 125 MG in NA CHLORIDE 0.9% 100 ML IV SCH (09:02)
[2020-12-29] MEDS: carvediloL 25 MG TAB PO SCH ×2 (09:03→21:00)
[2020-12-29] MEDS: FUROSEMIDE 40 MG/4 ML VIAL IV SCH ×2 (09:03→21:01)
[2020-12-29] MEDS: LOSARTAN POTASSIUM 50 MG TABLET PO SCH ×2 (09:03→20:59)
[2020-12-29] MEDS: FLUTICASONE 50MCG NASAL SPRAY NAS SCH ×2 (09:04→21:02)
[2020-12-29] MEDS: VITAMIN D 5,000 UNIT CAP PO SCH (09:05)
[2020-12-29] MEDS ORDERED: DOXAZOSIN 2 MG TAB ONE ×2 (09:13→21:17)
--- NOTE | 2020-12-29 11:29 | P.PN ---
Date of Service: 12/29/20 Vital Signs Temp Pulse Resp BP Pulse Ox 97.2 F 67 18 150/65 H 96 12/29/20 08:00 12/29/20 09:03 12/29/20 08:00 12/29/20 09:03 12/29/20 08:00 Medications Acetaminophen (Acetaminophen 500 Mg Tab) 500 mg PO Q4HP PRN PRN Reason: Pain scale 2-4 (Mild) Last Admin: 12/28/20 09:11 Dose: 500 mg Documented by: Albuterol Sulfate (Albuterol 2.5 Mg/3 Ml Neb Shira) 2.5 mg NEB Q6HP PRN PRN Reason: SHORTNESS OF BREATH Last Admin: 12/25/20 16:48 Dose: 2.5 mg Documented by: Amlodipine Besylate (Amlodipine 10 Mg Tab) 5 mg PO DAILY [facility] Last Admin: 12/29/20 09:01 Dose: 5 mg Documented by: Aripiprazole (Aripiprazole 5 Mg Tab) 20 mg PO DAILY [facility] Last Admin: 12/29/20 09:00 Dose: 20 mg Documented by: Atorvastatin Calcium (Atorvastatin 40 Mg Tab) 40 mg PO BEDTIME [facility] Last Admin: 12/28/20 21:51 Dose: 40 mg Documented by: Calcitriol (Calcitrol 0.25 Mcg Cap) 0.5 mcg PO DAILY [facility] Last Admin: 12/29/20 09:00 Dose: 0.5 mcg Documented by: Carvedilol (Carvedilol 25 Mg Tab) 25 mg PO BID [facility] Last Admin: 12/29/20 09:03 Dose: 25 mg Documented by: Cholecalciferol (Vitamin D 5,000 Unit Cap) 5,000 unit PO DAILY [facility] Last Admin: 12/29/20 09:05 Dose: 5,000 unit Documented by: Coenzyme Q10 (Coenzyme Q10- 200 Mg Cap) 200 mg PO DAILY [facility] Last Admin: 12/29/20 09:00 Dose: 200 mg Documented by: Doxazosin Mesylate (Doxazosin 4 Mg Tab) 2 mg PO BID [facility] Last Admin: 12/29/20 09:00 Dose: 2 mg Documented by: Fluticasone Propionate (Fluticasone 50mcg Nasal [place]) 2 sprays ANALILIA BID [facility] Last Admin: 12/29/20 09:04 Dose: 2 spr Documented by: Furosemide (Furosemide 40 Mg/4 Ml Vial) 40 mg IV BIDL [facility] Last Admin: 12/29/20 09:03 Dose: 40 mg Documented by: Heparin Sodium (Porcine) (Heparin 1,000 Unit/Ml Vial) 6,000 unit IV EVERY HD PRN PRN Reason: AFTER EACH Last Admin: 12/27/20 15:54 Dose: 6,000 unit Documented by: Heparin Sodium (Porcine) (Heparin 1,000 Unit/Ml Vial) 2,000 unit IV EVERY HD [facility] Stop: 01/02/21 12:01 Hydralazine HCl (Hydralazine Hcl 20 Mg/Ml Vial) 10 mg IV Q4HP PRN PRN Reason: Titrate to SBP (MUST DEFINE) Last Admin: 12/28/20 13:12 Dose: 10 mg Documented by: Hydroxyzine HCl (Hydroxyzine Hcl 25 Mg Tab) 50 mg PO Q6HP PRN PRN Reason: ITCHING Last Admin: 12/28/20 09:11 Dose: 50 mg Documented by: Sodium Chloride (Sodium Chloride) 250 mls @ 0 mls/hr IV .Q0M [facility] Ferric Sodium Gluconate Complex 125 mg/ Sodium Chloride 110 mls @ 100 mls/hr IV DAILY [facility] Stop: 01/01/21 10:05 Last Admin: 12/29/20 09:02 Dose: 110 mls Documented by: Albumin Human (Albumin 25%) 50 mls @ 100 mls/hr IV EVERY HD [facility] Insulin Human Regular (Insulin -Regular Human 50 Unit/0.5 Ml Ml) 0 unit SQ ACHS [facility]; Protocol Last Admin: 12/29/20 07:30 Dose: Not Given Documented by: Lorazepam (Lorazepam 2 Mg/Ml Vial) 1 mg IV Q8H PRN PRN Reason: ANXIETY Last Admin: 12/29/20 01:25 Dose: 1 mg Documented by: Losartan Potassium (Losartan Potassium 50 Mg Tablet) 25 mg PO BID [facility] Last Admin: 12/29/20 09:03 Dose: 25 mg Documented by: Mannitol (Mannitol 25% 12.5 Gm/50 Ml Vial) 12.5 gm IV EVERY HD PRN PRN Reason: Titrate to SBP (MUST DEFINE) Ondansetron HCl (Ondansetron 4 Mg/2 Ml Vial) 4 mg IV Q6HP PRN PRN Reason: NAUSEA / VOMITING Last Admin: 12/25/20 09:51 Dose: 4 mg Documented by: Sodium Chloride (Flush Normal Saline 10 Ml) 10 ml IV BID [facility] Last Admin: 12/29/20 09:04 Dose: 10 ml Documented by: Trazodone HCl (Trazodone 50 Mg Tablet) 100 mg PO BEDTIME [facility] Last Admin: 12/28/20 21:50 Dose: 100 mg Documented by: Assessment/ Plan: Nephrology Feeling better today. No chest pain. No acute events overnight. Vitals, medications, blood work and imaging reviewed in the chart. General: In no apparent distress, Oriented x3, Cooperative. Obese. HEENT: Atraumatic Neck: Supple Respiratory: CTA Cardiovascular: Regular rate/rhythm, Edema Gastrointestinal: Soft and benign, Non-distended Musculoskeletal: No clubbing, No contractures Integumentary: No rashes, No cyanosis Neurological: Normal speech Laboratory Data (last 24 hrs) 12/24/20 03:24: PT 11.8, INR 1.03 12/24/20 03:24: WBC 9.90, Hgb 7.6 L, Hct 22.4 L, Plt Count 229 12/24/20 03:24: Sodium 144, Potassium 5.1, BUN 52 H, Creatinine 5.23 H*, Glucose 152 H, Magnesium 2.2, Total Bilirubin 0.4, AST 7 L, ALT 15, Alkaline Phosphatase 126 H Imagings Data: EXAM DESCRIPTION: RAD - Chest Single View - 12/24/2020 3:44 am CLINICAL HISTORY: DYSPNEA Chest pain. COMPARISON: Chest Single View dated 11/15/2019; Chest Single View dated 05/02/2019 FINDINGS: Portable technique limits examination quality. Mild pulmonary edema. The heart is moderately enlarged in size. No displaced fractures. IMPRESSION: Mild CHF. EXAM DESCRIPTION: US - Renal Ultrasound-Complete - 12/24/2020 6:23 am CLINICAL HISTORY: ARF Flank pain COMPARISON: Renal Ultrasound-Complete dated 11/15/2019 FINDINGS: Both kidneys are normal in size, shape and echotexture. The right kidney measures 11.0 x 5.2 x 4.1 cm. No hydronephrosis, focal mass or perinephric fluid. The left kidney measures 12.7 x 6.5 x 5.1 cm. No hydronephrosis, focal mass or perinephric fluid. The urinary bladder is incompletely distended without gross abnormality seen. IMPRESSION: Unremarkable renal sonogram. Conclusions/Impression: PORFIRIO may be CRS CKD V with proteinuria ESRD HD started 12-26-20 -No NSAIDs -Renal US reviewed -HBV panel pending -Next HD Tuesday -Arrange for dialysis placement/ Social work consulted HTN with CKD/ CHF LVEF 61% -Continue Coreg -Decrease Doxazosin 2mg BID -Continue Amlodipine Diastolic CHF, A/C -Continue furosemide -Continue CoQ10 -Echo reviewed DM II with CKD -RISS Anemia in chronic illness Iron deficiency -Retacrit PRN -Continue IV iron -Transfuse PRBC as needed if the patient agrees CKD MBD -Continue Calcitriol Dialysis placement pending...
--- NOTE | 2020-12-29 14:42 | P.PN ---
Subjective Date of Service: 12/29/20 Chief Complaint: CHF exacerbation Status post hemodialysis on Tuesday 12/26. Blood pressure remain elevated. Physical Examination - Vital Signs Temperature: 97.2 F Blood Pressure: 172/70 Pulse: 72 Respirations: 18 Pulse Ox (%): 95 - Physical Exam General: Alert, In no apparent distress, Oriented x3 HEENT: Mucous membr. moist/pink Neck: JVD not distended Respiratory: Clear to auscultation bilaterally, Normal air movement Cardiovascular: Regular rate/rhythm, Edema (1+ bilateral lower extremities) Gastrointestinal: Normal bowel sounds, Soft and benign, Non-distended, No tenderness Integumentary: Other (Bilateral lower extremity venostasis dermatitis) Neurological: Normal strength at 5/5 x4 extr Assessment And Plan - Current Problems (Diagnosis) (1) Acute diastolic heart failure Current Visit: Yes Status: Acute (2) Chronic kidney disease, stage 5 Current Visit: Yes Status: Acute (3) Chronic anemia Current Visit: Yes Status: Acute (4) Diabetes Current Visit: Yes Status: Chronic Qualifiers: Diabetes mellitus type: type 2 Diabetes mellitus watermaster insulin use: with intermediate use Diabetes mellitus complication status: with kidney complications Diabetes mellitus complication detail: with chronic kidney disease Chronic kidney disease stage: unspecified stage Qualified Code(s): E11.22 - Type 2 diabetes mellitus with diabetic chronic kidney disease; Z79.4 - terminal gauger (current) use of insulin (5) Uncontrolled hypertension Current Visit: Yes Status: Acute - Plan Continue IV iron and erythropoietin. PRBC transfusion whenever patient agrees to it. Hemoglobin is up to 7.8 today Continue to monitor H&H. Patient responded to IV Lasix and pulmonary edema resolved. Continue Lasix for CHF. Status post hemodialysis. Next dialysis is today, and then [facility] routine dialysis. Monitor input and output. Continue Coreg 25 mg b.i.d, amlodipine 5 mg daily and doxazosin. Hydralazine p.r.n. for BP spikes. Titrate amlodipine for blood pressure control. Nephrology is assisting with management. Echocardiogram shows normal EF. Condition psych medications-Abilify. Ativan p.r.n. for anxiety. Flonase for nasal congestion. bottom worker assisting with arrangement for outpatient dialysis.
[2020-12-29] MEDS: TRAZODONE 50 MG TABLET PO SCH (20:58)
[2020-12-29] MEDS: ATORVASTATIN 40 MG TAB PO SCH (20:59)
[2020-12-29] MEDS: HYDROCODONE/APAP 7.5/325 MG TAB PO PRN (21:00)
[2020-12-30] MEDS: HYDROCODONE/APAP 7.5/325 MG TAB PO PRN ×3 (03:20→20:26)
[2020-12-30 03:38] LABS: HBsAG Nonreactive (Nonreactive)
[2020-12-30] MEDS: hydrOXYzine HCL 25 MG TAB PO PRN (04:27)
[2020-12-30 05:28] LABS: Absolute Lymphocytes (CBC) 1.1 K/uL (0.7-4.9); Basophils % 0.8 % (0-1.3); Hematocrit 24.2 % (39.6-49.0); Lymphocytes % 12.7 % (15.3-44.8); RBC Red Blood Cell Count 2.64 M/uL (4.33-5.43)
[2020-12-30 05:48] LABS: Magnesium 2.2 mg/dL (1.8-2.4); Phosphorus 3.9 mg/dL (2.5-4.9); Potassium 4.4 mmol/L (3.5-5.1)
[2020-12-30] MEDS: FLUTICASONE 50MCG NASAL SPRAY NAS SCH ×2 (09:00→20:28)
[2020-12-30] MEDS: COENZYME Q10- 200 MG CAP PO SCH (09:00)
[2020-12-30] MEDS: LOSARTAN POTASSIUM 50 MG TABLET PO SCH ×2 (09:49→20:24)
[2020-12-30] MEDS: carvediloL 25 MG TAB PO SCH ×2 (09:49→20:25)
[2020-12-30] MEDS: VITAMIN D 5,000 UNIT CAP PO SCH (09:50)
[2020-12-30] MEDS: CALCITROL 0.25 MCG CAP PO SCH (09:50)
[2020-12-30] MEDS: AMLODIPINE 10 MG TAB PO SCH (09:50)
[2020-12-30] MEDS: DOXAZOSIN 4 MG TAB PO SCH ×2 (09:51→20:23)
[2020-12-30] MEDS: FUROSEMIDE 40 MG/4 ML VIAL IV SCH ×2 (10:00→18:17)
[2020-12-30] MEDS: ARIPiprazole 5 MG TAB PO SCH (10:01)
[2020-12-30] MEDS: SOD FERRIC GLUC COMPLX/SUCROSE 125 MG in NA CHLORIDE 0.9% 100 ML IV SCH (10:01)
[2020-12-30] MEDS: INSULIN -REGULAR HUMAN 50 UNIT/0.5 ML ML SQ SCH ×4 (10:01→20:30)
[2020-12-30] MEDS ORDERED: DOXAZOSIN 2 MG TAB ONE (10:11)
[2020-12-30] MEDS: LORazepam 2 MG/ML VIAL IV PRN (12:17)
[2020-12-30] MEDS ORDERED: WATER FOR INJ,STERILE 10 ML ONE (12:41)
--- NOTE | 2020-12-30 15:38 | P.PN ---
Subjective Date of Service: 12/30/20 Chief Complaint: CHF exacerbation Subjective: Improving (feeling better, breathing comfortably on room air, without complaints other than uncomfortable in hospital bed and wants a larger bed. awaiting HD chair time) Review of Systems 10-point ROS is otherwise unremarkable Physical Examination - Vital Signs Temperature: 97.7 F Blood Pressure: 174/75 Pulse: 60 Respirations: 20 Pulse Ox (%): 96 Assessment & Plan Physician Review Additional Text: Physical Exam General: Alert, In no apparent distress, Oriented x3 HEENT: Mucous membr. moist/pink, normal conjunctiva Respiratory: Clear to auscultation bilaterally, Normal air movement Cardiovascular: Regular rate/rhythm, 1+ bilateral lower extremity edema Gastrointestinal: Soft and benign, Non-distended, No tenderness Integumentary: Bilateral lower extremity venostasis dermatitis Neurological: Normal strength at 5/5 x4 extr Problem list Acute on chronic diastolic congestive heart failure with hypoxemia CKD 5 Chronic anemia, iron deficiency DM2, insulin-dependent Hypertension IV iron and erythropoietin. PRBC transfusion whenever patient agrees to it. Hemoglobin is up to 7.8 today, pt refused Patient responded to IV Lasix and pulmonary edema resolved. Continue Lasix for CHF. Status post hemodialysis. MWF routine dialysis. Monitor input and output. Continue Coreg 25 mg b.i.d, amlodipine 5 mg daily and doxazosin. Hydralazine p.r.n. for BP spikes. Titrate amlodipine for blood pressure control. Nephrology is assisting with management. Echocardiogram shows normal EF. Condition psych medications-Abilify. Ativan p.r.n. for anxiety. Flonase for nasal congestion. billet worker assisting with arrangement for outpatient dialysis. Dispo: Anticipate discharge in next 24 hours Time Spent Managing Pts Care (In Minutes): 35
--- NOTE | 2020-12-30 20:12 | P.PN ---
Date of Service: 12/30/20 Vital Signs Temp Pulse Resp BP Pulse Ox 97.6 F 57 18 133/64 93 12/30/20 16:00 12/30/20 18:17 12/30/20 16:00 12/30/20 18:17 12/30/20 16:00 Medications Acetaminophen (Acetaminophen 500 Mg Tab) 500 mg PO Q4HP PRN PRN Reason: Pain scale 2-4 (Mild) Last Admin: 12/28/20 09:11 Dose: 500 mg Documented by: Hydrocodone Bitart/Acetaminophen (Hydrocodone/Apap 7.5/325 Mg Tab) 1 tab PO Q6H PRN PRN Reason: Pain scale 5-7 (Moderate) Last Admin: 12/30/20 09:50 Dose: 1 tab Documented by: Albuterol Sulfate (Albuterol 2.5 Mg/3 Ml Neb Shira) 2.5 mg NEB Q6HP PRN PRN Reason: SHORTNESS OF BREATH Last Admin: 12/25/20 16:48 Dose: 2.5 mg Documented by: Amlodipine Besylate (Amlodipine 10 Mg Tab) 5 mg PO DAILY [facility] Last Admin: 12/30/20 09:50 Dose: 5 mg Documented by: Aripiprazole (Aripiprazole 5 Mg Tab) 20 mg PO DAILY [facility] Last Admin: 12/30/20 10:01 Dose: 20 mg Documented by: Atorvastatin Calcium (Atorvastatin 40 Mg Tab) 40 mg PO BEDTIME [facility] Last Admin: 12/29/20 20:59 Dose: 40 mg Documented by: Calcitriol (Calcitrol 0.25 Mcg Cap) 0.5 mcg PO DAILY [facility] Last Admin: 12/30/20 09:50 Dose: 0.5 mcg Documented by: Cholecalciferol (Vitamin D 5,000 Unit Cap) 5,000 unit PO DAILY [facility] Last Admin: 12/30/20 09:50 Dose: 5,000 unit Documented by: Coenzyme Q10 (Coenzyme Q10- 200 Mg Cap) 200 mg PO DAILY [facility] Last Admin: 12/30/20 09:00 Dose: 200 mg Documented by: Doxazosin Mesylate (Doxazosin 4 Mg Tab) 2 mg PO BID [facility] Last Admin: 12/30/20 09:51 Dose: 2 mg Documented by: Fluticasone Propionate (Fluticasone 50mcg Nasal [place]) 2 sprays ANALILIA BID [facility] Last Admin: 12/30/20 09:00 Dose: 2 spr Documented by: Furosemide (Furosemide 40 Mg/4 Ml Vial) 40 mg IV BIDL [facility] Last Admin: 12/30/20 18:17 Dose: 40 mg Documented by: Heparin Sodium (Porcine) (Heparin 1,000 Unit/Ml Vial) 6,000 unit IV EVERY HD PRN PRN Reason: AFTER EACH Last Admin: 12/27/20 15:54 Dose: 6,000 unit Documented by: Heparin Sodium (Porcine) (Heparin 1,000 Unit/Ml Vial) 2,000 unit IV EVERY HD [facility] Stop: 01/02/21 12:01 Hydralazine HCl (Hydralazine Hcl 20 Mg/Ml Vial) 10 mg IV Q4HP PRN PRN Reason: Titrate to SBP (MUST DEFINE) Last Admin: 12/28/20 13:12 Dose: 10 mg Documented by: Hydroxyzine HCl (Hydroxyzine Hcl 25 Mg Tab) 50 mg PO Q6HP PRN PRN Reason: ITCHING Last Admin: 12/30/20 04:27 Dose: 50 mg Documented by: Sodium Chloride (Sodium Chloride) 250 mls @ 0 mls/hr IV .Q0M [facility] Ferric Sodium Gluconate Complex 125 mg/ Sodium Chloride 110 mls @ 100 mls/hr IV DAILY [facility] Stop: 01/01/21 10:05 Last Admin: 12/30/20 10:01 Dose: 110 mls Documented by: Albumin Human (Albumin 25%) 50 mls @ 100 mls/hr IV EVERY HD [facility] Insulin Human Regular (Insulin -Regular Human 50 Unit/0.5 Ml Ml) 0 unit SQ ACHS [facility]; Protocol Last Admin: 12/30/20 16:30 Dose: Not Given Documented by: Lorazepam (Lorazepam 2 Mg/Ml Vial) 1 mg IV Q8H PRN PRN Reason: ANXIETY Last Admin: 12/30/20 12:17 Dose: 1 mg Documented by: Losartan Potassium (Losartan Potassium 50 Mg Tablet) 25 mg PO BID [facility] Last Admin: 12/30/20 09:49 Dose: 25 mg Documented by: Mannitol (Mannitol 25% 12.5 Gm/50 Ml Vial) 12.5 gm IV EVERY HD PRN PRN Reason: Titrate to SBP (MUST DEFINE) Ondansetron HCl (Ondansetron 4 Mg/2 Ml Vial) 4 mg IV Q6HP PRN PRN Reason: NAUSEA / VOMITING Last Admin: 12/25/20 09:51 Dose: 4 mg Documented by: Sodium Chloride (Flush Normal Saline 10 Ml) 10 ml IV BID [facility] Last Admin: 12/30/20 10:02 Dose: 10 ml Documented by: Trazodone HCl (Trazodone 50 Mg Tablet) 100 mg PO BEDTIME [facility] Last Admin: 12/29/20 20:58 Dose: 100 mg Documented by: Assessment/ Plan: Nephrology Fair appetite. No chest pain. No acute events overnight. Vitals, medications, blood work and imaging reviewed in the chart. General: In no apparent distress, Oriented x3, Cooperative. Obese. HEENT: Atraumatic Neck: Supple Respiratory: CTA Cardiovascular: Regular rate/rhythm, Edema Gastrointestinal: Soft and benign, Non-distended Musculoskeletal: No clubbing, No contractures Integumentary: No rashes, No cyanosis Neurological: Normal speech Laboratory Data (last 24 hrs) 12/24/20 03:24: PT 11.8, INR 1.03 12/24/20 03:24: WBC 9.90, Hgb 7.6 L, Hct 22.4 L, Plt Count 229 12/24/20 03:24: Sodium 144, Potassium 5.1, BUN 52 H, Creatinine 5.23 H*, Glucose 152 H, Magnesium 2.2, Total Bilirubin 0.4, AST 7 L, ALT 15, Alkaline Phosphatase 126 H Imagings Data: EXAM DESCRIPTION: RAD - Chest Single View - 12/24/2020 3:44 am CLINICAL HISTORY: DYSPNEA Chest pain. COMPARISON: Chest Single View dated 11/15/2019; Chest Single View dated FINDINGS: Portable technique limits examination quality. Mild pulmonary edema. The heart is moderately enlarged in size. No displaced fractures. IMPRESSION: Mild CHF. EXAM DESCRIPTION: US - Renal Ultrasound-Complete - 12/24/2020 6:23 am CLINICAL HISTORY: ARF Flank pain COMPARISON: Renal Ultrasound-Complete dated 11/15/2019 FINDINGS: Both kidneys are normal in size, shape and echotexture. The right kidney measures 11.0 x 5.2 x 4.1 cm. No hydronephrosis, focal mass or perinephric fluid. The left kidney measures 12.7 x 6.5 x 5.1 cm. No hydronephrosis, focal mass or perinephric fluid. The urinary bladder is incompletely distended without gross abnormality seen. IMPRESSION: Unremarkable renal sonogram. Conclusions/Impression: PORFIRIO may be CRS CKD V with proteinuria ESRD HD started 12-26-20 -No NSAIDs -Renal US reviewed -HBV panel negative -Next HD tomorrow -Arrange for dialysis placement/ Social work consulted HTN with CKD/ CHF LVEF 61% -Decrease Coreg -Continue Doxazosin 2mg BID -Continue Amlodipine Diastolic CHF, A/C -Continue furosemide -Continue CoQ10 -Echo reviewed DM II with CKD -RISS Anemia in chronic illness Iron deficiency -Retacrit in the am -Continue IV iron -Transfuse PRBC as needed if the patient agrees CKD MBD -Continue Calcitriol Dialysis placement pending...
[2020-12-30] MEDS: TRAZODONE 50 MG TABLET PO SCH (20:25)
[2020-12-30] MEDS: ATORVASTATIN 40 MG TAB PO SCH (20:26)
[2020-12-31] MEDS: HYDROCODONE/APAP 7.5/325 MG TAB PO PRN ×3 (04:12→18:04)
[2020-12-31] MEDS: INSULIN -REGULAR HUMAN 50 UNIT/0.5 ML ML SQ SCH ×4 (07:30→20:56)
[2020-12-31] MEDS: carvediloL 25 MG TAB PO SCH ×2 (09:00→20:54)
[2020-12-31] MEDS: COENZYME Q10- 200 MG CAP PO SCH (09:00)
[2020-12-31] MEDS: LOSARTAN POTASSIUM 50 MG TABLET PO SCH ×2 (09:00→20:55)
[2020-12-31] MEDS: DOXAZOSIN 4 MG TAB PO SCH ×2 (09:00→20:55)
[2020-12-31] MEDS: FLUTICASONE 50MCG NASAL SPRAY NAS SCH ×2 (09:00→21:00)
[2020-12-31] MEDS: AMLODIPINE 10 MG TAB PO SCH (09:00)
[2020-12-31] MEDS ORDERED: DOXAZOSIN 2 MG TAB ONE (11:38)
[2020-12-31] MEDS: VITAMIN D 5,000 UNIT CAP PO SCH (11:47)
[2020-12-31] MEDS: FUROSEMIDE 40 MG/4 ML VIAL IV SCH ×2 (11:48→18:05)
[2020-12-31] MEDS: CALCITROL 0.25 MCG CAP PO SCH (11:48)
[2020-12-31] MEDS: SOD FERRIC GLUC COMPLX/SUCROSE 125 MG in NA CHLORIDE 0.9% 100 ML IV SCH (11:49)
[2020-12-31] MEDS: LORazepam 2 MG/ML VIAL IV PRN (11:50)
[2020-12-31 14:42] LABS: Absolute Lymphocytes (CBC) 1.3 K/uL (0.7-4.9); Basophils % 1.3 % (0-1.3); Hematocrit 21.8 % (39.6-49.0); Lymphocytes % 16.3 % (15.3-44.8); RBC Red Blood Cell Count 2.39 M/uL (4.33-5.43)
[2020-12-31 14:50] LABS: Albumin 2.9 g/dL (3.4-5.0); Phosphorus 3.9 mg/dL (2.5-4.9); Potassium 3.9 mmol/L (3.5-5.1)
--- NOTE | 2020-12-31 16:51 | P.PN ---
Subjective Date of Service: 12/31/20 Chief Complaint: CHF exacerbation Subjective: No new changes (doing well, no new complaints besides bed is uncomfortable. bariatric bed ordered.) Review of Systems 10-point ROS is otherwise unremarkable Physical Examination - Vital Signs Temperature: 97.2 F Blood Pressure: 164/73 Pulse: 72 Respirations: 18 Pulse Ox (%): 99 Assessment & Plan Physician Review Additional Text: Physical Exam General: Alert, In no apparent distress, Oriented x3 HEENT: Mucous membr. moist/pink, normal conjunctiva Respiratory: Clear to auscultation bilaterally, Normal air movement Cardiovascular: Regular rate/rhythm, 1+ bilateral lower extremity edema Gastrointestinal: Soft and benign, Non-distended, No tenderness Integumentary: Bilateral lower extremity venostasis dermatitis Problem list Acute on chronic diastolic congestive heart failure with hypoxemia CKD 5 Chronic anemia, iron deficiency DM2, insulin-dependent Hypertension IV iron and erythropoietin. PRBC transfusion whenever patient agrees to it. Hemoglobin back down to 7.1 Patient responded to IV Lasix and pulmonary edema resolved. Continue Lasix for CHF. Off O2 Status post hemodialysis. tolerating well MWF routine dialysis. Monitor input and output. Continue Coreg, amlodipine 5 mg daily, and Doxazosin. Hydralazine PRN for BP spikes. Titrate amlodipine for blood pressure control. Nephrology is assisting with management. Echocardiogram shows normal EF. continue abilify Ativan p.r.n. for anxiety. Flonase for nasal congestion. abrasive worker assisting with arrangement for outpatient dialysis. Dispo: Anticipate discharge in next 24 hours hep panel returned, updated COVID test licensed clinical social worker state now having issues with patient's insurance which is delaying discharge Time Spent Managing Pts Care (In Minutes): 35
[2020-12-31] MEDS: ARIPiprazole 5 MG TAB PO SCH (18:05)
[2020-12-31] MEDS: ATORVASTATIN 40 MG TAB PO SCH (20:54)
--- NOTE | 2020-12-31 20:58 | P.PN ---
Date of Service: 12/31/20 Vital Signs Temp Pulse Resp BP Pulse Ox 97.4 F 55 18 129/76 99 12/31/20 17:04 12/31/20 18:05 12/31/20 17:04 12/31/20 18:05 12/31/20 17:04 Medications Acetaminophen (Acetaminophen 500 Mg Tab) 500 mg PO Q4HP PRN PRN Reason: Pain scale 2-4 (Mild) Last Admin: 12/28/20 09:11 Dose: 500 mg Documented by: Hydrocodone Bitart/Acetaminophen (Hydrocodone/Apap 7.5/325 Mg Tab) 1 tab PO Q6H PRN PRN Reason: Pain scale 5-7 (Moderate) Last Admin: 12/31/20 18:04 Dose: 1 tab Documented by: Albuterol Sulfate (Albuterol 2.5 Mg/3 Ml Neb Shira) 2.5 mg NEB Q6HP PRN PRN Reason: SHORTNESS OF BREATH Last Admin: 12/25/20 16:48 Dose: 2.5 mg Documented by: Amlodipine Besylate (Amlodipine 10 Mg Tab) 5 mg PO DAILY [facility] Last Admin: 12/31/20 09:00 Dose: Not Given Documented by: Aripiprazole (Aripiprazole 5 Mg Tab) 20 mg PO DAILY [facility] Last Admin: 12/31/20 18:05 Dose: 20 mg Documented by: Atorvastatin Calcium (Atorvastatin 40 Mg Tab) 40 mg PO BEDTIME [facility] Last Admin: 12/30/20 20:26 Dose: 40 mg Documented by: Calcitriol (Calcitrol 0.25 Mcg Cap) 0.5 mcg PO DAILY [facility] Last Admin: 12/31/20 11:48 Dose: 0.5 mcg Documented by: Carvedilol (Carvedilol 25 Mg Tab) 12.5 mg PO BID [facility] Last Admin: 12/31/20 09:00 Dose: Not Given Documented by: Cholecalciferol (Vitamin D 5,000 Unit Cap) 5,000 unit PO DAILY [facility] Last Admin: 12/31/20 11:47 Dose: 5,000 unit Documented by: Coenzyme Q10 (Coenzyme Q10- 200 Mg Cap) 200 mg PO DAILY [facility] Last Admin: 12/31/20 09:00 Dose: Not Given Documented by: Doxazosin Mesylate (Doxazosin 4 Mg Tab) 2 mg PO BID [facility] Last Admin: 12/31/20 09:00 Dose: 2 mg Documented by: Fluticasone Propionate (Fluticasone 50mcg Nasal [place]) 2 sprays ANALILIA BID MARGARET Last Admin: 12/31/20 09:00 Dose: Not Given Documented by: Furosemide (Furosemide 40 Mg/4 Ml Vial) 40 mg IV BIDL MARGARET Last Admin: 12/31/20 18:05 Dose: 40 mg Documented by: Heparin Sodium (Porcine) (Heparin 1,000 Unit/Ml Vial) 6,000 unit IV EVERY HD PRN PRN Reason: AFTER EACH Last Admin: 12/27/20 15:54 Dose: 6,000 unit Documented by: Heparin Sodium (Porcine) (Heparin 1,000 Unit/Ml Vial) 2,000 unit IV EVERY HD [facility]ARGARET Stop: 01/02/21 12:01 Hydralazine HCl (Hydralazine Hcl 20 Mg/Ml Vial) 10 mg IV Q4HP PRN PRN Reason: Titrate to SBP (MUST DEFINE) Last Admin: 12/28/20 13:12 Dose: 10 mg Documented by: Hydroxyzine HCl (Hydroxyzine Hcl 25 Mg Tab) 50 mg PO Q6HP PRN PRN Reason: ITCHING Last Admin: 12/30/20 04:27 Dose: 50 mg Documented by: Sodium Chloride (Sodium Chloride) 250 mls @ 0 mls/hr IV .Q0M [facility] Ferric Sodium Gluconate Complex 125 mg/ Sodium Chloride 110 mls @ 100 mls/hr IV DAILY [facility] Stop: 01/01/21 10:05 Last Admin: 12/31/20 11:49 Dose: 110 mls Documented by: Albumin Human (Albumin 25%) 50 mls @ 100 mls/hr IV EVERY HD [facility] Insulin Human Regular (Insulin -Regular Human 50 Unit/0.5 Ml Ml) 0 unit SQ ACHS MARGARET; Protocol Last Admin: 12/31/20 18:05 Dose: 3 unit Documented by: Lorazepam (Lorazepam 2 Mg/Ml Vial) 1 mg IV Q8H PRN PRN Reason: ANXIETY Last Admin: 12/31/20 11:50 Dose: 1 mg Documented by: Losartan Potassium (Losartan Potassium 50 Mg Tablet) 25 mg PO BID [facility]ARG[facility]ET Last Admin: 12/31/20 09:00 Dose: Not Given Documented by: Mannitol (Mannitol 25% 12.5 Gm/50 Ml Vial) 12.5 gm IV EVERY HD PRN PRN Reason: Titrate to SBP (MUST DEFINE) Ondansetron HCl (Ondansetron 4 Mg/2 Ml Vial) 4 mg IV Q6HP PRN PRN Reason: NAUSEA / VOMITING Last Admin: 12/25/20 09:51 Dose: 4 mg Documented by: Sodium Chloride (Flush Normal Saline 10 Ml) 10 ml IV BID [facility] Last Admin: 12/31/20 09:00 Dose: 10 ml Documented by: Trazodone HCl (Trazodone 50 Mg Tablet) 100 mg PO BEDTIME [facility] Last Admin: 12/30/20 20:25 Dose: 100 mg Documented by: Assessment/ Plan: Nephrology Fair appetite. Feeling well. Reports that he feels better with NC Oxygen No chest pain. No acute events overnight. Vitals, medications, blood work and imaging reviewed in the chart. General: In no apparent distress, Oriented x3, Cooperative. Obese. HEENT: Atraumatic Neck: Supple Respiratory: CTA Cardiovascular: Regular rate/rhythm, Edema Gastrointestinal: Soft and benign, Non-distended Musculoskeletal: No clubbing, No contractures Integumentary: No rashes, No cyanosis Neurological: Normal speech Laboratory Data (last 24 hrs) 12/24/20 03:24: PT 11.8, INR 1.03 12/24/20 03:24: WBC 9.90, Hgb 7.6 L, Hct 22.4 L, Plt Count 229 12/24/20 03:24: Sodium 144, Potassium 5.1, BUN 52 H, Creatinine 5.23 H*, Glucose 152 H, Magnesium 2.2, Total Bilirubin 0.4, AST 7 L, ALT 15, Alkaline Phosphatase 126 H Imagings Data: EXAM DESCRIPTION: RAD - Chest Single View - 12/24/2020 3:44 am CLINICAL HISTORY: DYSPNEA Chest pain. COMPARISON: Chest Single View dated 11/15/2019; Chest Single View dated 05/02/2019 FINDINGS: Portable technique limits examination quality. Mild pulmonary edema. The heart is moderately enlarged in size. No displaced fractures. IMPRESSION: Mild CHF. EXAM DESCRIPTION: US - Renal Ultrasound-Complete - 12/24/2020 6:23 am CLINICAL HISTORY: ARF Flank pain COMPARISON: Renal Ultrasound-Complete dated 11/15/2019 FINDINGS: Both kidneys are normal in size, shape and echotexture. The right kidney measures 11.0 x 5.2 x 4.1 cm. No hydronephrosis, focal mass or perinephric fluid. The left kidney measures 12.7 x 6.5 x 5.1 cm. No hydronephrosis, focal mass or perinephric fluid. The urinary bladder is incompletely distended without gross abnormality seen. IMPRESSION: Unremarkable renal sonogram. Conclusions/Impression: PORFIRIO may be CRS CKD V with proteinuria ESRD HD started 12-26-20 -No NSAIDs -Renal US reviewed -HBV panel negative -Next HD today HTN with CKD/ CHF LVEF 61% -Continue Coreg -Continue Doxazosin 2mg BID -Continue Amlodipine Diastolic CHF, A/C -Continue furosemide -Continue CoQ10 -Echo reviewed DM II with CKD -RISS Anemia in chronic illness Iron deficiency -Retacrit in the am -Continue IV iron -Transfuse PRBC as needed if the patient agrees CKD MBD -Continue Calcitriol Dialysis placement pending...
[2020-12-31] MEDS: TRAZODONE 50 MG TABLET PO SCH (21:00)
[2021-01-01] MEDS: HYDROCODONE/APAP 7.5/325 MG TAB PO PRN ×3 (00:46→18:38)
[2021-01-01] MEDS: INSULIN -REGULAR HUMAN 50 UNIT/0.5 ML ML SQ SCH ×4 (07:30→21:34)
[2021-01-01] MEDS: DOXAZOSIN 4 MG TAB PO SCH ×2 (09:00→21:33)
[2021-01-01] MEDS: FLUTICASONE 50MCG NASAL SPRAY NAS SCH ×2 (09:00→21:00)
[2021-01-01] MEDS: SOD FERRIC GLUC COMPLX/SUCROSE 125 MG in NA CHLORIDE 0.9% 100 ML IV SCH (09:30)
[2021-01-01] MEDS ORDERED: DOXAZOSIN 2 MG TAB ONE (09:30)
[2021-01-01] MEDS: VITAMIN D 5,000 UNIT CAP PO SCH (09:32)
[2021-01-01] MEDS: FUROSEMIDE 40 MG/4 ML VIAL IV SCH ×2 (09:32→18:38)
[2021-01-01] MEDS: CALCITROL 0.25 MCG CAP PO SCH (09:32)
[2021-01-01] MEDS: AMLODIPINE 10 MG TAB PO SCH (09:33)
[2021-01-01] MEDS: carvediloL 25 MG TAB PO SCH ×2 (09:34→21:31)
[2021-01-01] MEDS: LOSARTAN POTASSIUM 50 MG TABLET PO SCH ×2 (09:35→21:33)
[2021-01-01] MEDS: ARIPiprazole 5 MG TAB PO SCH (09:39)
[2021-01-01] MEDS: COENZYME Q10- 200 MG CAP PO SCH (09:39)
--- NOTE | 2021-01-01 17:36 | P.PN ---
Subjective Date of Service: 01/01/21 Chief Complaint: CHF exacerbation Subjective: No new changes (No new complaints, awaiting insurance authorization for dialysis) Review of Systems 10-point ROS is otherwise unremarkable Physical Examination - Vital Signs Temperature: 97.3 F Blood Pressure: 141/61 Pulse: 58 Respirations: 17 Pulse Ox (%): 98 Assessment & Plan Physician Review Additional Text: Physical Exam General: Alert, In no apparent distress, Oriented x3 HEENT: Normal conjunctiva, sclera anicteric Respiratory: Clear to auscultation bilaterally, Normal air movement Cardiovascular: Regular rate/rhythm, trace bilateral lower extremity edema Gastrointestinal: Soft and benign, Non-distended, No tenderness Integumentary: Bilateral lower extremity venostasis dermatitis Problem list Acute on chronic diastolic congestive heart failure with hypoxemia CKD 5 on HD Chronic anemia, iron deficiency DM2, insulin-dependent Hypertension IV iron and erythropoietin. PRBC transfusion whenever patient agrees to it. Hemoglobin back down to 7.1, still refusing. refuses labs Patient responded to IV Lasix and pulmonary edema resolved. Continue Lasix for CHF. Off O2 Status post hemodialysis. tolerating well MWF routine dialysis. Monitor input and output. Continue Coreg, amlodipine 5 mg daily, and Doxazosin. Hydralazine PRN for BP spikes. Titrate amlodipine for blood pressure control. Nephrology is assisting with management. Echocardiogram shows normal EF. continue abilify Ativan p.r.n. for anxiety. Flonase for nasal congestion. supply service worker assisting with arrangement for outpatient dialysis. Dispo: Anticipate discharge in next 24 hours hep panel returned, updated COVID test negative social work job titles state now having issues with patient's insurance which is delaying discharge Time Spent Managing Pts Care (In Minutes): 35
--- NOTE | 2021-01-01 20:59 | P.PN ---
Date of Service: 01/01/21 Vital Signs Temp Pulse Resp BP Pulse Ox 97.3 F 58 17 141/61 H 98 01/01/21 17:36 01/01/21 18:38 01/01/21 17:36 01/01/21 18:38 01/01/21 17:36 Medications Acetaminophen (Acetaminophen 500 Mg Tab) 500 mg PO Q4HP PRN PRN Reason: Pain scale 2-4 (Mild) Last Admin: 12/28/20 09:11 Dose: 500 mg Documented by: Hydrocodone Bitart/Acetaminophen (Hydrocodone/Apap 7.5/325 Mg Tab) 1 tab PO Q6H PRN PRN Reason: Pain scale 5-7 (Moderate) Last Admin: 01/01/21 18:38 Dose: 1 tab Documented by: Albuterol Sulfate (Albuterol 2.5 Mg/3 Ml Neb Shira) 2.5 mg NEB Q6HP PRN PRN Reason: SHORTNESS OF BREATH Last Admin: 12/25/20 16:48 Dose: 2.5 mg Documented by: Amlodipine Besylate (Amlodipine 10 Mg Tab) 5 mg PO DAILY [facility] Last Admin: 01/01/21 09:33 Dose: 5 mg Documented by: Aripiprazole (Aripiprazole 5 Mg Tab) 20 mg PO DAILY [facility] Last Admin: 01/01/21 09:39 Dose: 20 mg Documented by: Atorvastatin Calcium (Atorvastatin 40 Mg Tab) 40 mg PO BEDTIME [facility] Last Admin: 12/31/20 20:54 Dose: 40 mg Documented by: Calcitriol (Calcitrol 0.25 Mcg Cap) 0.5 mcg PO DAILY [facility] Last Admin: 01/01/21 09:32 Dose: 0.5 mcg Documented by: Carvedilol (Carvedilol 25 Mg Tab) 12.5 mg PO BID [facility] Last Admin: 01/01/21 09:34 Dose: 12.5 mg Documented by: Cholecalciferol (Vitamin D 5,000 Unit Cap) 5,000 unit PO DAILY [facility] Last Admin: 01/01/21 09:32 Dose: 5,000 unit Documented by: Coenzyme Q10 (Coenzyme Q10- 200 Mg Cap) 200 mg PO DAILY [facility] Last Admin: 01/01/21 09:39 Dose: 200 mg Documented by: Doxazosin Mesylate (Doxazosin 4 Mg Tab) 2 mg PO BID [facility] Last Admin: 01/01/21 09:00 Dose: 2 mg Documented by: Fluticasone Propionate (Fluticasone 50mcg Nasal [place]) 2 sprays ANALILIA BID [facility] Last Admin: 01/01/21 09:00 Dose: Not Given Documented by: Furosemide (Furosemide 40 Mg/4 Ml Vial) 40 mg IV BIDL [facility] Last Admin: 01/01/21 18:38 Dose: 40 mg Documented by: Heparin Sodium (Porcine) (Heparin 1,000 Unit/Ml Vial) 6,000 unit IV EVERY HD PRN PRN Reason: AFTER EACH Last Admin: 12/27/20 15:54 Dose: 6,000 unit Documented by: Heparin Sodium (Porcine) (Heparin 1,000 Unit/Ml Vial) 2,000 unit IV EVERY HD [facility] Stop: 01/02/21 12:01 Hydralazine HCl (Hydralazine Hcl 20 Mg/Ml Vial) 10 mg IV Q4HP PRN PRN Reason: Titrate to SBP (MUST DEFINE) Last Admin: 12/28/20 13:12 Dose: 10 mg Documented by: Hydroxyzine HCl (Hydroxyzine Hcl 25 Mg Tab) 50 mg PO Q6HP PRN PRN Reason: ITCHING Last Admin: 12/30/20 04:27 Dose: 50 mg Documented by: Sodium Chloride (Sodium Chloride) 250 mls @ 0 mls/hr IV .Q0M [facility] Albumin Human (Albumin 25%) 50 mls @ 100 mls/hr IV EVERY HD [facility] Insulin Human Regular (Insulin -Regular Human 50 Unit/0.5 Ml Ml) 0 unit SQ ACHS MARGARET; Protocol Last Admin: 01/01/21 16:30 Dose: Not Given Documented by: Losartan Potassium (Losartan Potassium 50 Mg Tablet) 25 mg PO BID [facility] Last Admin: 01/01/21 09:35 Dose: 25 mg Documented by: Mannitol (Mannitol 25% 12.5 Gm/50 Ml Vial) 12.5 gm IV EVERY HD PRN PRN Reason: Titrate to SBP (MUST DEFINE) Ondansetron HCl (Ondansetron 4 Mg/2 Ml Vial) 4 mg IV Q6HP PRN PRN Reason: NAUSEA / VOMITING Last Admin: 12/25/20 09:51 Dose: 4 mg Documented by: Sodium Chloride (Flush Normal Saline 10 Ml) 10 ml IV BID [facility] Last Admin: 01/01/21 09:00 Dose: 10 ml Documented by: Trazodone HCl (Trazodone 50 Mg Tablet) 100 mg PO BEDTIME [facility]ARG[facility]ET Last Admin: 12/31/20 21:00 Dose: Not Given Documented by: Assessment/ Plan: Nephrology Fair appetite. Feeling well. No chest pain. No acute events overnight. Vitals, medications, blood work and imaging reviewed in the chart. General: In no apparent distress, Oriented x3, Cooperative. Obese. HEENT: Atraumatic Neck: Supple Respiratory: CTA Cardiovascular: Regular rate/rhythm, Edema Gastrointestinal: Soft and benign, Non-distended Musculoskeletal: No clubbing, No contractures Integumentary: No rashes, No cyanosis Neurological: Normal speech Laboratory Data (last 24 hrs) 12/24/20 03:24: PT 11.8, INR 1.03 12/24/20 03:24: WBC 9.90, Hgb 7.6 L, Hct 22.4 L, Plt Count 229 12/24/20 03:24: Sodium 144, Potassium 5.1, BUN 52 H, Creatinine 5.23 H*, Glucose 152 H, Magnesium 2.2, Total Bilirubin 0.4, AST 7 L, ALT 15, Alkaline Phosphatase 126 H Imagings Data: EXAM DESCRIPTION: RAD - Chest Single View - 12/24/2020 3:44 am CLINICAL HISTORY: DYSPNEA Chest pain. COMPARISON: Chest Single View dated 11/15/2019; Chest Single View dated 05/02/2019 FINDINGS: Portable technique limits examination quality. Mild pulmonary edema. The heart is moderately enlarged in size. No displaced fractures. IMPRESSION: Mild CHF. EXAM DESCRIPTION: US - Renal Ultrasound-Complete - 12/24/2020 6:23 am CLINICAL HISTORY: ARF Flank pain COMPARISON: Renal Ultrasound-Complete dated 11/15/2019 FINDINGS: Both kidneys are normal in size, shape and echotexture. The right kidney measures 11.0 x 5.2 x 4.1 cm. No hydronephrosis, focal mass or perinephric fluid. The left kidney measures 12.7 x 6.5 x 5.1 cm. No hydronephrosis, focal mass or perinephric fluid. The urinary bladder is incompletely distended without gross abnormality seen. IMPRESSION: Unremarkable renal sonogram. Conclusions/Impression: PORFIRIO may be CRS CKD V with proteinuria ESRD HD started 12-26-20 -No NSAIDs -Renal US reviewed -HBV panel negative -Next HD tomorrow HTN with CKD/ CHF LVEF 61% -Continue Coreg -Continue Doxazosin 2mg BID -Continue Amlodipine Diastolic CHF, A/C -Continue furosemide -Continue CoQ10 -Echo reviewed DM II with CKD -RISS Anemia in chronic illness Iron deficiency -Retacrit in the am -Continue IV iron -Transfuse PRBC as needed if the patient agrees CKD MBD -Continue Calcitriol Dialysis placement pending...
[2021-01-01] MEDS: ATORVASTATIN 40 MG TAB PO SCH (21:33)
[2021-01-02] MEDS: TRAZODONE 50 MG TABLET PO SCH ×2 (00:26→20:31)
[2021-01-02] MEDS: HYDROCODONE/APAP 7.5/325 MG TAB PO PRN ×4 (02:38→20:29)
[2021-01-02] MEDS ORDERED: DOXAZOSIN 2 MG TAB ONE (07:55)
[2021-01-02] MEDS: VITAMIN D 5,000 UNIT CAP PO SCH (08:35)
[2021-01-02] MEDS: COENZYME Q10- 200 MG CAP PO SCH (08:35)
[2021-01-02] MEDS: CALCITROL 0.25 MCG CAP PO SCH (08:36)
[2021-01-02] MEDS: LOSARTAN POTASSIUM 50 MG TABLET PO SCH ×2 (08:38→20:31)
[2021-01-02] MEDS: carvediloL 25 MG TAB PO SCH ×2 (08:38→20:30)
[2021-01-02] MEDS: AMLODIPINE 10 MG TAB PO SCH (08:39)
[2021-01-02] MEDS: FLUTICASONE 50MCG NASAL SPRAY NAS SCH ×2 (08:40→20:33)
[2021-01-02] MEDS: INSULIN -REGULAR HUMAN 50 UNIT/0.5 ML ML SQ SCH ×4 (08:41→20:32)
[2021-01-02] MEDS: FUROSEMIDE 40 MG/4 ML VIAL IV SCH ×2 (08:42→16:12)
[2021-01-02] MEDS: DOXAZOSIN 4 MG TAB PO SCH ×2 (09:00→20:30)
[2021-01-02] MEDS ORDERED: EPOETIN ALFA 10,000 UNIT/ML VIAL SQ SCH (09:00)
[2021-01-02] MEDS: ARIPiprazole 5 MG TAB PO SCH (09:01)
--- NOTE | 2021-01-02 16:49 | P.PN ---
Subjective Date of Service: 01/02/21 Chief Complaint: CHF exacerbation Subjective: No new changes (awaiting insurance auth / approval) Review of Systems 10-point ROS is otherwise unremarkable Physical Examination - Vital Signs Temperature: 96.9 F Blood Pressure: 116/64 Pulse: 55 Respirations: 20 Pulse Ox (%): 97 Assessment & Plan Physician Review Additional Text: Physical Exam General: Alert, In no apparent distress, Oriented x3 HEENT: Normal conjunctiva, sclera anicteric Respiratory: Clear to auscultation bilaterally, Normal air movement Cardiovascular: Regular rate/rhythm, trace bilateral lower extremity edema Gastrointestinal: Soft and benign, Non-distended, No tenderness Integumentary: Bilateral lower extremity venostasis dermatitis Problem list Acute on chronic diastolic congestive heart failure with hypoxemia CKD 5 on HD Chronic anemia, iron deficiency DM2, insulin-dependent Hypertension IV iron and erythropoietin. PRBC transfusion whenever patient agrees to it. Hemoglobin back down to 7.1, still refusing. refuses labs Patient responded to IV Lasix and pulmonary edema resolved. Continue Lasix for CHF. Off O2 Patient requesting O2 despite being 99% on room air, says it makes him more comfortable / less anxious Status post hemodialysis. tolerating well MWF routine dialysis. Monitor input and output. Continue Coreg, amlodipine daily, and Doxazosin. Hydralazine PRN for BP spikes. Nephrology is assisting with management. Echocardiogram shows normal EF. continue abilify Ativan p.r.n. for anxiety. Flonase for nasal congestion. aged or disabled care worker assisting with arrangement for outpatient dialysis. Dispo: Anticipate discharge whenever insurance issue resolved hep panel returned, updated COVID test negative case management social worker state now having issues with patient's insurance which is delaying discharge Time Spent Managing Pts Care (In Minutes): 35
[2021-01-02] MEDS: ATORVASTATIN 40 MG TAB PO SCH (20:29)
--- NOTE | 2021-01-02 21:43 | P.PN ---
Date of Service: 01/02/21 Vital Signs Temp Pulse Resp BP Pulse Ox 97.4 F 64 17 142/67 H 93 01/02/21 20:00 01/02/21 20:30 01/02/21 20:00 01/02/21 20:30 01/02/21 20:00 Medications Acetaminophen (Acetaminophen 500 Mg Tab) 500 mg PO Q4HP PRN PRN Reason: Pain scale 2-4 (Mild) Last Admin: 12/28/20 09:11 Dose: 500 mg Documented by: Hydrocodone Bitart/Acetaminophen (Hydrocodone/Apap 7.5/325 Mg Tab) 1 tab PO Q6H PRN PRN Reason: Pain scale 5-7 (Moderate) Last Admin: 01/02/21 20:29 Dose: 1 tab Documented by: Albuterol Sulfate (Albuterol 2.5 Mg/3 Ml Neb Shira) 2.5 mg NEB Q6HP PRN PRN Reason: SHORTNESS OF BREATH Last Admin: 12/25/20 16:48 Dose: 2.5 mg Documented by: Amlodipine Besylate (Amlodipine 10 Mg Tab) 5 mg PO DAILY [facility] Last Admin: 01/02/21 08:39 Dose: 5 mg Documented by: Aripiprazole (Aripiprazole 5 Mg Tab) 20 mg PO DAILY [facility] Last Admin: 01/02/21 09:01 Dose: 20 mg Documented by: Atorvastatin Calcium (Atorvastatin 40 Mg Tab) 40 mg PO BEDTIME [facility] Last Admin: 01/02/21 20:29 Dose: 40 mg Documented by: Calcitriol (Calcitrol 0.25 Mcg Cap) 0.5 mcg PO DAILY [facility] Last Admin: 01/02/21 08:36 Dose: 0.5 mcg Documented by: Carvedilol (Carvedilol 25 Mg Tab) 12.5 mg PO BID [facility] Last Admin: 01/02/21 20:30 Dose: 12.5 mg Documented by: Cholecalciferol (Vitamin D 5,000 Unit Cap) 5,000 unit PO DAILY [facility] Last Admin: 01/02/21 08:35 Dose: 5,000 unit Documented by: Coenzyme Q10 (Coenzyme Q10- 200 Mg Cap) 200 mg PO DAILY [facility] Last Admin: 01/02/21 08:35 Dose: 200 mg Documented by: Doxazosin Mesylate (Doxazosin 4 Mg Tab) 2 mg PO BID [facility] Last Admin: 01/02/21 20:30 Dose: 2 mg Documented by: Fluticasone Propionate (Fluticasone 50mcg Nasal [place]) 2 sprays ANALILIA BID [facility] Last Admin: 01/02/21 20:33 Dose: 2 spr Documented by: Furosemide (Furosemide 40 Mg/4 Ml Vial) 40 mg IV BIDL [facility] Last Admin: 01/02/21 16:12 Dose: 40 mg Documented by: Heparin Sodium (Porcine) (Heparin 1,000 Unit/Ml Vial) 6,000 unit IV EVERY HD PRN PRN Reason: AFTER EACH Last Admin: 12/27/20 15:54 Dose: 6,000 unit Documented by: Hydralazine HCl (Hydralazine Hcl 20 Mg/Ml Vial) 10 mg IV Q4HP PRN PRN Reason: Titrate to SBP (MUST DEFINE) Last Admin: 12/28/20 13:12 Dose: 10 mg Documented by: Hydroxyzine HCl (Hydroxyzine Hcl 25 Mg Tab) 50 mg PO Q6HP PRN PRN Reason: ITCHING Last Admin: 12/30/20 04:27 Dose: 50 mg Documented by: Sodium Chloride (Sodium Chloride) 250 mls @ 0 mls/hr IV .Q0M [facility] Albumin Human (Albumin 25%) 50 mls @ 100 mls/hr IV EVERY HD [facility] Insulin Human Regular (Insulin -Regular Human 50 Unit/0.5 Ml Ml) 0 unit SQ ACHS [facility]; Protocol Last Admin: 01/02/21 20:32 Dose: 3 unit Documented by: Losartan Potassium (Losartan Potassium 50 Mg Tablet) 25 mg PO BID [facility] Last Admin: 01/02/21 20:31 Dose: 25 mg Documented by: Mannitol (Mannitol 25% 12.5 Gm/50 Ml Vial) 12.5 gm IV EVERY HD PRN PRN Reason: Titrate to SBP (MUST DEFINE) Ondansetron HCl (Ondansetron 4 Mg/2 Ml Vial) 4 mg IV Q6HP PRN PRN Reason: NAUSEA / VOMITING Last Admin: 12/25/20 09:51 Dose: 4 mg Documented by: Sodium Chloride (Flush Normal Saline 10 Ml) 10 ml IV BID [facility] Last Admin: 01/02/21 20:32 Dose: 10 ml Documented by: Trazodone HCl (Trazodone 50 Mg Tablet) 100 mg PO BEDTIME [facility] Last Admin: 01/02/21 20:31 Dose: 100 mg Documented by: Assessment/ Plan: Nephrology Fair appetite. Feeling well. No chest pain. No acute events overnight. Vitals, medications, blood work and imaging reviewed in the chart. General: In no apparent distress, Oriented x3, Cooperative. Obese. HEENT: Atraumatic Neck: Supple Respiratory: CTA Cardiovascular: Regular rate/rhythm, Edema Gastrointestinal: Soft and benign, Non-distended Musculoskeletal: No clubbing, No contractures Integumentary: No rashes, No cyanosis Neurological: Normal speech Laboratory Data (last 24 hrs) 12/24/20 03:24: PT 11.8, INR 1.03 12/24/20 03:24: WBC 9.90, Hgb 7.6 L, Hct 22.4 L, Plt Count 229 12/24/20 03:24: Sodium 144, Potassium 5.1, BUN 52 H, Creatinine 5.23 H*, Glucose 152 H, Magnesium 2.2, Total Bilirubin 0.4, AST 7 L, ALT 15, Alkaline Phosphatase 126 H Imagings Data: EXAM DESCRIPTION: RAD - Chest Single View - 12/24/2020 3:44 am CLINICAL HISTORY: DYSPNEA Chest pain. COMPARISON: Chest Single View dated 11/15/2019; Chest Single View dated 05/02/2019 FINDINGS: Portable technique limits examination quality. Mild pulmonary edema. The heart is moderately enlarged in size. No displaced fractures. IMPRESSION: Mild CHF. EXAM DESCRIPTION: US - Renal Ultrasound-Complete - 12/24/2020 6:23 am CLINICAL HISTORY: ARF Flank pain COMPARISON: Renal Ultrasound-Complete dated 11/15/2019 FINDINGS: Both kidneys are normal in size, shape and echotexture. The right kidney measures 11.0 x 5.2 x 4.1 cm. No hydronephrosis, focal mass or perinephric fluid. The left kidney measures 12.7 x 6.5 x 5.1 cm. No hydronephrosis, focal mass or perinephric fluid. The urinary bladder is incompletely distended without gross abnormality seen. IMPRESSION: Unremarkable renal sonogram. Conclusions/Impression: PORFIRIO may be CRS CKD V with proteinuria ESRD HD started 12-26-20 -No NSAIDs -Renal US reviewed -HBV panel negative -Next HD Tuesday HTN with CKD/ CHF LVEF 61% -Continue Coreg -Continue Doxazosin 2mg BID -Continue Amlodipine Diastolic CHF, A/C -Continue furosemide -Continue CoQ10 -Echo reviewed DM II with CKD -RISS Anemia in chronic illness Iron deficiency -Retacrit prn -Continue IV iron -Transfuse PRBC as needed if the patient agrees CKD MBD -Continue Calcitriol Dialysis placement pending...
[2021-01-03] MEDS: INSULIN -REGULAR HUMAN 50 UNIT/0.5 ML ML SQ SCH ×4 (07:30→20:21)
[2021-01-03] MEDS: VITAMIN D 5,000 UNIT CAP PO SCH (09:00)
[2021-01-03] MEDS: FUROSEMIDE 40 MG/4 ML VIAL IV SCH (09:00)
[2021-01-03] MEDS: FLUTICASONE 50MCG NASAL SPRAY NAS SCH ×2 (09:00→20:20)
[2021-01-03] MEDS: LOSARTAN POTASSIUM 50 MG TABLET PO SCH ×2 (09:25→20:21)
[2021-01-03] MEDS: COENZYME Q10- 200 MG CAP PO SCH (09:25)
[2021-01-03] MEDS: carvediloL 25 MG TAB PO SCH ×2 (09:25→20:20)
[2021-01-03] MEDS: CALCITROL 0.25 MCG CAP PO SCH (09:26)
[2021-01-03] MEDS: AMLODIPINE 10 MG TAB PO SCH (09:27)
[2021-01-03] MEDS: DOXAZOSIN 4 MG TAB PO SCH ×2 (09:29→20:19)
[2021-01-03] MEDS: ARIPiprazole 5 MG TAB PO SCH (09:30)
[2021-01-03] MEDS: hydrOXYzine HCL 25 MG TAB PO PRN ×3 (09:39→22:59)
[2021-01-03] MEDS: HYDROCODONE/APAP 7.5/325 MG TAB PO PRN ×2 (09:39→21:17)
--- NOTE | 2021-01-03 15:02 | PN ---
Date of Progress Note: 01/03/2021 Subjective: The patient is seen and examined at bedside. He denies any complaints. Objective: Vital Signs: Have been reviewed. General: He appears in no acute distress. Lungs: Clear to auscultation. Abdomen: Soft and nontender. Extremities: Without any evidence of edema. Medications: Has been reviewed in detail. Laboratory Data: Has been reviewed in detail. Impression: 1.End-stage renal disease, on dialysis. The patient is pending outpatient dialysis placement. 2.Anemia secondary to end-stage renal disease. The patient has refused blood transfusion. Continue to monitor. 3.Hypertension. Continue current medications. 4.Chronic diastolic heart failure. We will switch IV to p.o. Lasix. 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 Continue calcitriol. Plan: Overall, the patient is doing okay at this time. Continue to monitor closely. Continue , Tuesday, Tuesday dialysis and will follow up. The patient does not have any IV access. Hence we will switch him from IV to oral Lasix. VV/MODL Voice ID: [id number] Report ID: [id number]
--- NOTE | 2021-01-03 15:26 | P.PN ---
Subjective Date of Service: 01/03/21 Chief Complaint: CHF exacerbation Subjective: No new changes (refusing lab draws, IV "fell out", refuses to allow it to be replaced. no new complaints) Review of Systems 10-point ROS is otherwise unremarkable Physical Examination - Vital Signs Temperature: 98.6 F Blood Pressure: 139/58 Pulse: 65 Respirations: 20 Pulse Ox (%): 98 Assessment & Plan Physician Review Additional Text: Physical Exam General: Alert, NAD, Oriented x3 HEENT: Normal conjunctiva, sclera anicteric Respiratory: Clear to auscultation bilaterally, Normal air movement Cardiovascular: Regular rate/rhythm, trace bilateral lower extremity edema Gastrointestinal: Soft and benign, Non-distended, No tenderness Integumentary: Bilateral lower extremity venostasis dermatitis Problem list Acute on chronic diastolic congestive heart failure with hypoxemia CKD 5 on HD Chronic anemia, iron deficiency DM2, insulin-dependent Hypertension IV iron and erythropoietin. anemia is chronic, refusing lab draws, refused blood transfusion Patient responded to IV Lasix and pulmonary edema resolved. Continue Lasix for CHF. Off O2 Patient requesting O2 despite being 99% on room air, says it makes him more comfortable / less anxious tolerating HD well, monitor i/o Continue Coreg, amlodipine daily, and doxazosin. Hydralazine PRN for BP spikes. Nephrology is assisting with management. Echocardiogram shows normal EF. continue abilify, Ativan p.r.n. for anxiety. Flonase for nasal congestion. iron worker assisting with arrangement for outpatient dialysis. Dispo: Anticipate discharge whenever insurance issue resolved hep panel returned, updated COVID test negative vp digital marketing social media and crm state now having issues with patient's insurance which is delaying discharge for several days Time Spent Managing Pts Care (In Minutes): 35
[2021-01-03] MEDS: FUROSEMIDE 40 MG TABLET PO SCH (17:00)
[2021-01-03] MEDS: TRAZODONE 50 MG TABLET PO SCH (20:19)
[2021-01-03] MEDS: ATORVASTATIN 40 MG TAB PO SCH (20:20)
--- NOTE | 2021-01-04 06:24 | P.PN ---
Date of Service: 01/04/21 Subjective No changes, still awaiting insurance approval for chair time Patient still refusing blood draws No new complaints, states he feels fine. Getting frustrated Review of Systems 10-point ROS is otherwise unremarkable Physical Exam General: Alert, NAD, Oriented x3, obese HEENT: Normal conjunctiva, sclera anicteric Respiratory: Clear to auscultation bilaterally, Normal air movement Cardiovascular: Regular rate/rhythm, trace bilateral lower extremity edema Gastrointestinal: Soft and benign, Non-distended, No tenderness Integumentary: Bilateral lower extremity venostasis dermatitis Problem list Acute on chronic diastolic congestive heart failure with hypoxemia, resolved CKD 5 on HD Chronic anemia, iron deficiency DM2, insulin-dependent Hypertension IV iron and erythropoietin. anemia is chronic, refusing lab draws, refused blood transfusion Patient responded to IV Lasix and pulmonary edema resolved. Continue p.o. Lasix for CHF. Off O2 Patient requesting O2 despite being 99% on room air, says it makes him more comfortable / less anxious tolerating HD well, monitor i/o's Continue Coreg, amlodipine daily, Cardura. hydralazine PRN for BP spikes. Nephrology is assisting with management. Echocardiogram shows normal EF. continue abilify, Ativan p.r.n. for anxiety. Flonase for nasal congestion. rehabilitation caseworker assisting with arrangement for outpatient dialysis. Dispo: Anticipate discharge whenever insurance issue resolved case management social worker state now having issues with patient's insurance which is delaying discharge for several days Time Spent Managing Pts Care (In Minutes): 25
[2021-01-04] MEDS: INSULIN -REGULAR HUMAN 50 UNIT/0.5 ML ML SQ SCH ×4 (07:30→21:00)
[2021-01-04] MEDS ORDERED: DOXAZOSIN 2 MG TAB ONE ×2 (08:26→21:26)
[2021-01-04] MEDS: VITAMIN D 5,000 UNIT CAP PO SCH (09:00)
[2021-01-04] MEDS: DOXAZOSIN 4 MG TAB PO SCH ×2 (09:00→21:00)
[2021-01-04] MEDS: FLUTICASONE 50MCG NASAL SPRAY NAS SCH ×2 (09:00→21:00)
[2021-01-04] MEDS: COENZYME Q10- 200 MG CAP PO SCH (10:02)
[2021-01-04] MEDS: CALCITROL 0.25 MCG CAP PO SCH (10:02)
[2021-01-04] MEDS: AMLODIPINE 10 MG TAB PO SCH (10:04)
[2021-01-04] MEDS: carvediloL 25 MG TAB PO SCH ×2 (10:04→21:21)
[2021-01-04] MEDS: FUROSEMIDE 40 MG TABLET PO SCH ×2 (10:05→16:58)
[2021-01-04] MEDS: ARIPiprazole 5 MG TAB PO SCH (10:06)
[2021-01-04] MEDS: hydrOXYzine HCL 25 MG TAB PO PRN ×2 (10:06→21:20)
[2021-01-04] MEDS: LOSARTAN POTASSIUM 50 MG TABLET PO SCH ×2 (10:08→21:15)
[2021-01-04 20:30] LABS: Hematocrit 24.3 % (39.6-49.0); MPV 8.4 fL (7.6-11.3); RBC Red Blood Cell Count 2.66 M/uL (4.33-5.43)
[2021-01-04] MEDS: TRAZODONE 50 MG TABLET PO SCH (21:00)
[2021-01-04 21:05] LABS: Magnesium 2.4 mg/dL (1.8-2.4); Potassium 5.1 mmol/L (3.5-5.1)
[2021-01-04] MEDS: ATORVASTATIN 40 MG TAB PO SCH (21:13)
[2021-01-04] MEDS: HYDROCODONE/APAP 7.5/325 MG TAB PO PRN (21:20)
[2021-01-05] MEDS: INSULIN -REGULAR HUMAN 50 UNIT/0.5 ML ML SQ SCH ×4 (07:30→20:15)
[2021-01-05] MEDS: DOXAZOSIN 4 MG TAB PO SCH ×2 (09:00→20:19)
[2021-01-05] MEDS: AMLODIPINE 10 MG TAB PO SCH (09:00)
[2021-01-05] MEDS: FLUTICASONE 50MCG NASAL SPRAY NAS SCH ×2 (09:00→20:19)
[2021-01-05] MEDS: carvediloL 25 MG TAB PO SCH ×2 (09:00→20:19)
[2021-01-05] MEDS: VITAMIN D 5,000 UNIT CAP PO SCH (09:00)
[2021-01-05] MEDS: COENZYME Q10- 200 MG CAP PO SCH (09:00)
[2021-01-05] MEDS: LOSARTAN POTASSIUM 50 MG TABLET PO SCH ×2 (09:00→20:19)
[2021-01-05] MEDS: HYDROCODONE/APAP 7.5/325 MG TAB PO PRN ×2 (10:32→16:30)
[2021-01-05] MEDS: ARIPiprazole 5 MG TAB PO SCH (10:32)
[2021-01-05] MEDS: hydrOXYzine HCL 25 MG TAB PO PRN (10:33)
[2021-01-05] MEDS: FUROSEMIDE 40 MG TABLET PO SCH ×2 (10:34→17:00)
[2021-01-05] MEDS: CALCITROL 0.25 MCG CAP PO SCH (13:10)
[2021-01-05 17:05] VITALS: O2SAT 98
--- NOTE | 2021-01-05 17:37 | P.PN ---
Date of Service: 01/05/21 Vital Signs Temp Pulse Resp BP Pulse Ox 97.8 F 62 18 157/67 H 95 01/05/21 16:00 01/05/21 16:00 01/05/21 16:00 01/05/21 16:00 01/05/21 16:00 Medications Acetaminophen (Acetaminophen 500 Mg Tab) 500 mg PO Q4HP PRN PRN Reason: Pain scale 2-4 (Mild) Last Admin: 12/28/20 09:11 Dose: 500 mg Documented by: Hydrocodone Bitart/Acetaminophen (Hydrocodone/Apap 7.5/325 Mg Tab) 1 tab PO Q6H PRN PRN Reason: Pain scale 5-7 (Moderate) Last Admin: 01/05/21 16:30 Dose: 1 tab Documented by: Amlodipine Besylate (Amlodipine 10 Mg Tab) 5 mg PO DAILY [facility] Last Admin: 01/05/21 09:00 Dose: Not Given Documented by: Aripiprazole (Aripiprazole 5 Mg Tab) 20 mg PO DAILY [facility] Last Admin: 01/05/21 10:32 Dose: 20 mg Documented by: Atorvastatin Calcium (Atorvastatin 40 Mg Tab) 40 mg PO BEDTIME [facility] Last Admin: 01/04/21 21:13 Dose: 40 mg Documented by: Calcitriol (Calcitrol 0.25 Mcg Cap) 0.5 mcg PO DAILY [facility] Last Admin: 01/05/21 13:10 Dose: 0.5 mcg Documented by: Carvedilol (Carvedilol 25 Mg Tab) 12.5 mg PO BID [facility] Last Admin: 01/05/21 09:00 Dose: Not Given Documented by: Cholecalciferol (Vitamin D 5,000 Unit Cap) 5,000 unit PO DAILY [facility] Last Admin: 01/05/21 09:00 Dose: 5,000 unit Documented by: Coenzyme Q10 (Coenzyme Q10- 200 Mg Cap) 200 mg PO DAILY [facility] Last Admin: 01/05/21 09:00 Dose: Not Given Documented by: Doxazosin Mesylate (Doxazosin 4 Mg Tab) 2 mg PO BID [facility] Last Admin: 01/05/21 09:00 Dose: Not Given Documented by: Fluticasone Propionate (Fluticasone 50mcg Nasal [place]) 2 sprays ANALILIA BID [facility] Last Admin: 01/05/21 09:00 Dose: 1 spr Documented by: Furosemide (Furosemide 40 Mg Tablet) 40 mg PO BIDL [facility] Last Admin: 01/05/21 10:34 Dose: 40 mg Documented by: Heparin Sodium (Porcine) (Heparin 1,000 Unit/Ml Vial) 6,000 unit IV EVERY HD PRN PRN Reason: AFTER EACH Last Admin: 12/27/20 15:54 Dose: 6,000 unit Documented by: Hydralazine HCl (Hydralazine Hcl 20 Mg/Ml Vial) 10 mg IV Q4HP PRN PRN Reason: Titrate to SBP (MUST DEFINE) Last Admin: 12/28/20 13:12 Dose: 10 mg Documented by: Hydroxyzine HCl (Hydroxyzine Hcl 25 Mg Tab) 50 mg PO Q6HP PRN PRN Reason: ITCHING Last Admin: 01/05/21 10:33 Dose: 50 mg Documented by: Sodium Chloride (Sodium Chloride) 250 mls @ 0 mls/hr IV .Q0M MARGARET Albumin Human (Albumin 25%) 50 mls @ 100 mls/hr IV EVERY HD [facility] Insulin Human Regular (Insulin -Regular Human 50 Unit/0.5 Ml Ml) 0 unit SQ ACHS [facility]; Protocol Last Admin: 01/05/21 13:11 Dose: 5 unit Documented by: Losartan Potassium (Losartan Potassium 50 Mg Tablet) 25 mg PO BID [facility] Last Admin: 01/05/21 09:00 Dose: Not Given Documented by: Mannitol (Mannitol 25% 12.5 Gm/50 Ml Vial) 12.5 gm IV EVERY HD PRN PRN Reason: Titrate to SBP (MUST DEFINE) Ondansetron HCl (Ondansetron 4 Mg/2 Ml Vial) 4 mg IV Q6HP PRN PRN Reason: NAUSEA / VOMITING Last Admin: 12/25/20 09:51 Dose: 4 mg Documented by: Sodium Chloride (Flush Normal Saline 10 Ml) 10 ml IV BID [facility] Last Admin: 01/05/21 09:00 Dose: Not Given Documented by: Trazodone HCl (Trazodone 50 Mg Tablet) 100 mg PO BEDTIME [facility] Last Admin: 01/04/21 21:00 Dose: Not Given Documented by: Assessment/ Plan: Nephrology Doing well. No chest pain. No acute events overnight. Vitals, medications, blood work and imaging reviewed in the chart. General: In no apparent distress, Oriented x3, Cooperative. Obese. HEENT: Atraumatic Neck: Supple Respiratory: CTA Cardiovascular: Regular rate/rhythm, Edema Gastrointestinal: Soft and benign, Non-distended Musculoskeletal: No clubbing, No contractures Integumentary: No rashes, No cyanosis Neurological: Normal speech Laboratory Data (last 24 hrs) 12/24/20 03:24: PT 11.8, INR 1.03 12/24/20 03:24: WBC 9.90, Hgb 7.6 L, Hct 22.4 L, Plt Count 229 12/24/20 03:24: Sodium 144, Potassium 5.1, BUN 52 H, Creatinine 5.23 H*, Glucose 152 H, Magnesium 2.2, Total Bilirubin 0.4, AST 7 L, ALT 15, Alkaline Phosphatase 126 H Imagings Data: EXAM DESCRIPTION: RAD - Chest Single View - 12/24/2020 3:44 am CLINICAL HISTORY: DYSPNEA Chest pain. COMPARISON: Chest Single View dated 11/15/2019; Chest Single View dated 05/02/2019 FINDINGS: Portable technique limits examination quality. Mild pulmonary edema. The heart is moderately enlarged in size. No displaced fractures. IMPRESSION: Mild CHF. EXAM DESCRIPTION: US - Renal Ultrasound-Complete - 12/24/2020 6:23 am CLINICAL HISTORY: ARF Flank pain COMPARISON: Renal Ultrasound-Complete dated 11/15/2019 FINDINGS: Both kidneys are normal in size, shape and echotexture. The right kidney measures 11.0 x 5.2 x 4.1 cm. No hydronephrosis, focal mass or perinephric fluid. The left kidney measures 12.7 x 6.5 x 5.1 cm. No hydronephrosis, focal mass or perinephric fluid. The urinary bladder is incompletely distended without gross abnormality seen. IMPRESSION: Unremarkable renal sonogram. Conclusions/Impression: PORFIRIO may be CRS CKD V with proteinuria ESRD HD started 12-26-20 -No NSAIDs -Renal US reviewed -HBV panel negative -HD today HTN with CKD/ CHF LVEF 61% -Continue Coreg -Continue Doxazosin 2mg BID -Continue Amlodipine Diastolic CHF, A/C -Continue furosemide -Continue CoQ10 -Echo reviewed DM II with CKD -RISS Anemia in chronic illness Iron deficiency -Retacrit prn -Continue IV iron -Transfuse PRBC as needed if the patient agrees CKD MBD -Continue Calcitriol Case reviewed with Dr. Carey Plan for discharge today
--- NOTE | 2021-01-05 17:54 | P.DS ---
Admission Date: 12/24/20 Discharge Date: 01/05/21 Disposition: ROUTINE DISCHARGE Discharge Condition: GOOD Reason for Admission: CHF exacerbation Consultations: Nephrology Dr. Russo General surgeryDr. Arias Procedures: CXR (12/24): Mild pulmonary edema. The heart is moderately enlarged in size. No displaced fractures. IMPRESSION: Mild CHF. Renal ultrasound (12/24): IMPRESSION: Unremarkable renal sonogram. CXR (12/25): FINDINGS: Pulmonary opacities appear resolved. Upper lobe vessels are prominent indicative of pulmonary venous hypertension The heart remains enlarged CXR (12/26): FINDINGS: Interval placement of a hemodialysis catheter. The tip overlies the expected location of the right brachiocephalic vein. Cardiomegaly. Lungs are otherwise clear. No pneumothorax IMPRESSION: Hemodialysis catheter with tip overlying the expected location of the right brachiocephalic vein. No pneumothorax. No findings suspicious for tuberculosis is seen Echocardiogram (12/24): Technically difficult study. Normal LV size and function. No wall motion abnormality. No effusion. LVEF: 61% Placement of hemodialysis catheter and right jugular vein by Dr. Arias (12/26) Problem list Acute on chronic diastolic congestive heart failure with hypoxemia, resolved ESRD on HD Chronic anemia, iron deficiency, anemia of chronic disease DM2, insulin-dependent Hypertension Morbid obesity Brief History of Present Illness: 55 yo M with DM, HTN, CHF, CKD, AoCD who presents with 4 days of worsening SOB, orthopnea and PND. He says whenever he lays down he has to sit up to breathe because he feels like 'someone is sitting on my chest.' He also reports dry cough, edema, wheezing, palpitations and dizziness. Patient says he still makes urine. H/H 7.6, BUN 52, Cr 5.23, GFR 12, Glu 152, BNP 2375. He says this last occurred 1 year ago when he was admitted for a CHF exacerbation. Hospital Course: Patient was admitted for acute on chronic CHF exacerbation and worsening renal function. He was treated with IV Lasix, but ultimately needed initiation of hemodialysis. General surgery was consulted, a dialysis catheter was placed, and patient began hemodialysis. He tolerated this well and his symptoms improved. He was breathing comfortably on room air, ambulating around the nursing station. He had an echocardiogram which revealed normal ejection fraction. His anemia of chronic disease was stable, remained in the 78. Patient refused blood transfusion. He was given IV iron and erythropoietin for the iron deficiency component of his anemia. Patient's hospitalization was prolonged for several days due to insurance authorization issues to arrange for outpatient dialysis. This was finally resolved and patient was discharged. Follow-up with PCP in 3 to 5 days Follow-up with nephrology next few weeks Continue dialysis as scheduled Vital Signs/Physical Exam: Physical Exam General: Alert, NAD, Oriented x3, obese HEENT: Normal conjunctiva, sclera anicteric Respiratory: Clear to auscultation bilaterally, Normal air movement Cardiovascular: Regular rate/rhythm, trace bilateral lower extremity edema Gastrointestinal: Soft and benign, Non-distended, No tenderness Integumentary: Bilateral lower extremity venostasis dermatitis Temp Pulse Resp BP Pulse Ox 97.8 F 62 18 157/67 H 95 01/05/21 16:00 01/05/21 16:00 01/05/21 16:00 01/05/21 16:00 01/05/21 16:00 Laboratory Data at Discharge: WBC 7.30 K/uL (4.3-10.9) 01/04/21 19:58 Hgb 7.9 g/dL (13.6-17.9) L 01/04/21 19:58 Hct 24.3 % (39.6-49.0) L 01/04/21 19:58 Plt Count 234 K/uL (152-406) 01/04/21 19:58 PT 11.8 SECONDS (9.5-12.5) 12/24/20 03:24 INR 1.03 12/24/20 03:24 Sodium 144 mmol/L (136-145) 01/04/21 19:58 Potassium 5.1 mmol/L (3.5-5.1) 01/04/21 19:58 BUN 48 mg/dL (7-18) H D 01/04/21 19:58 Creatinine 8.15 mg/dL (0.55-1.3) H* D 01/04/21 19:58 Glucose 144 mg/dL (74-106) H 01/04/21 19:58 Uric Acid 8.2 mg/dL (3.5-7.2) H 12/25/20 04:38 Phosphorus 3.9 mg/dL (2.5-4.9) 12/31/20 13:50 Magnesium 2.4 mg/dL (1.8-2.4) 01/04/21 19:58 Total Bilirubin 0.4 mg/dL (0.2-1.0) 12/25/20 04:38 AST 4 U/L (15-37) L 12/25/20 04:38 ALT 14 U/L (12-78) 12/25/20 04:38 Alkaline Phosphatase 119 U/L (45-117) H 12/25/20 04:38 Troponin I < 0.02 ng/mL (0.0-0.045) 12/24/20 23:22 Triglycerides 98 mg/dL (<150) 12/25/20 04:38 Cholesterol 141 mg/dL (<200) 12/25/20 04:38 HDL Cholesterol 38 mg/dL (40-60) L 12/25/20 04:38 Cholesterol/HDL Ratio 3.71 12/25/20 04:38 Home Medications: Gabapentin 300 mg PO DAILY 11/15/19 Insulin Detemir [Levemir Flextouch] 33 units SQ BID 11/15/19 Calcitrol [Rocaltrol*] 0.5 mcg PO DAILY #60 cap 11/19/19 Furosemide [Lasix] 80 mg PO BID #60 tablet 11/19/19 carvediloL [Coreg*] 25 mg PO BID #60 tab 11/19/19 hydrOXYzine HCL [Atarax] 50 mg PO Q6HR PRN 12/24/20 ARIPiprazole [Aripiprazole] 1 tab PO DAILY 12/25/20 Aspirin [[place]] 1 tab PO DAILY 12/25/20 Atorvastatin Calcium 1 tab PO BEDTIME 12/25/20 Cholecalciferol (Vitamin D3) [Vitamin D 5,000 IU Cap*] 1,250 mcg PO DAILY 12/25/20 Insulin -Regular Human [Novolin -R*] 11 units SQ TIDWM 12/25/20 Trazodone [Desyrel*] 100 mg PO BEDTIME 12/25/20 Amlodipine [Norvasc*] 5 mg PO DAILY 30 Days #30 tab 01/05/21 Doxazosin Mesylate [Cardura] 2 mg PO BID 30 Days #60 tablet 01/05/21 New Medications: Doxazosin Mesylate [Cardura] 2 mg PO BID 30 Days #60 tablet Amlodipine [Norvasc*] 5 mg PO DAILY 30 Days #30 tab Physician Discharge Instructions: You were found to be in acute on chronic diastolic congestive heart failure. You are also found to have end-stage renal disease and you were started on hemodialysis. Combination of the hemodialysis, Lasix, and oxygen supplementation is what helped you improved. You have not required oxygen supplementation for several days. You are discharged home to continue with dialysis. Your next scheduled dialysis is this coming Tuesday. Follow-up with your PCP in 3 to 5 days. 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 Diet: Renal Activity: Ad manuel Followup: Unknown,U [Primary Care Provider] - Time spent managing pt's care (in minutes): 45
[2021-01-05] MEDS: TRAZODONE 50 MG TABLET PO SCH (20:19)
[2021-01-05] MEDS: ATORVASTATIN 40 MG TAB PO SCH (20:19)
[2021-01-05] MEDS ORDERED: DOXAZOSIN 2 MG TAB ONE (22:54)
[2021-01-06] MEDS: HYDROCODONE/APAP 7.5/325 MG TAB PO PRN ×2 (01:05→09:08)
[2021-01-06] MEDS: hydrOXYzine HCL 25 MG TAB PO PRN (03:39)
[2021-01-06] MEDS: FLUTICASONE 50MCG NASAL SPRAY NAS SCH (09:00)
[2021-01-06] MEDS: VITAMIN D 5,000 UNIT CAP PO SCH (09:00)
[2021-01-06] MEDS: INSULIN -REGULAR HUMAN 50 UNIT/0.5 ML ML SQ SCH (09:09)
[2021-01-06] MEDS: CALCITROL 0.25 MCG CAP PO SCH (09:09)
[2021-01-06] MEDS: LOSARTAN POTASSIUM 50 MG TABLET PO SCH (09:09)
[2021-01-06] MEDS: DOXAZOSIN 4 MG TAB PO SCH (09:11)
[2021-01-06] MEDS: ARIPiprazole 5 MG TAB PO SCH (09:12)
[2021-01-06] MEDS: COENZYME Q10- 200 MG CAP PO SCH (09:12)
[2021-01-06] MEDS: carvediloL 25 MG TAB PO SCH (09:13)
[2021-01-06] MEDS: AMLODIPINE 10 MG TAB PO SCH (09:14)
[2021-01-06] MEDS: FUROSEMIDE 40 MG TABLET PO SCH (09:14)
[2021-01-06 09:16] VITALS: TEMP 98.1
[2021-01-06 09:17] VITALS: BP 142/71
== END 2021-01-06 10:58 | disposition home or self-care (01) | DRG 291 ==
LOC: ER 03:15 → ERHOLD 05:26 → 2ND 18:01
PROVIDERS: ADMIT Internal Medicine; ATTEND Internal Medicine
PROC: 5A1D70Z Performance of Urinary Filtration, Intermittent, Less than 6 Hours Per Day (ICD-10-PCS; 2020-12-26)
PROC: 05HM33Z Insertion of Infusion Device into Right Internal Jugular Vein, Percutaneous Approach (ICD-10-PCS; principal; 2020-12-26 10:15)
PROC: 5A1D70Z Performance of Urinary Filtration, Intermittent, Less than 6 Hours Per Day (ICD-10-PCS; 2020-12-27)
PROC: 5A1D70Z Performance of Urinary Filtration, Intermittent, Less than 6 Hours Per Day (ICD-10-PCS; 2020-12-28)
PROC: 5A1D70Z Performance of Urinary Filtration, Intermittent, Less than 6 Hours Per Day (ICD-10-PCS; 2020-12-29)
PROC: 5A1D70Z Performance of Urinary Filtration, Intermittent, Less than 6 Hours Per Day (ICD-10-PCS; 2020-12-31)
PROC: 5A1D70Z Performance of Urinary Filtration, Intermittent, Less than 6 Hours Per Day (ICD-10-PCS; 2021-01-02)
PROC: 5A1D70Z Performance of Urinary Filtration, Intermittent, Less than 6 Hours Per Day (ICD-10-PCS; 2021-01-05)
PROC: 5A1D70Z Performance of Urinary Filtration, Intermittent, Less than 6 Hours Per Day (ICD-10-PCS; 2021-01-06)
DX: I13.2 Hypertensive heart and chronic kidney disease with heart failure and with stage 5 chronic kidney disease, or end stage renal disease (principal); I50.33 Acute on chronic diastolic (congestive) heart failure; N18.6 End stage renal disease; Z68.41 Body mass index [BMI] 40.0-44.9, adult; N17.9 Acute kidney failure, unspecified; E11.22 Type 2 diabetes mellitus with diabetic chronic kidney disease; D50.9 Iron deficiency anemia, unspecified; E66.01 Morbid (severe) obesity due to excess calories; R09.02 Hypoxemia; F41.9 Anxiety disorder, unspecified; Z79.4 Long term (current) use of insulin; Z20.822 Contact with and (suspected) exposure to COVID-19
CPT/HCPCS: 36415; 71045; 76000; 76770; 80048; 80053; 80061; 80069; 80076; 81003; 81015; 82550; 82570; 82607; 82728; 82746; 82947; 83036; 83540; 83735; 83880; 84100; 84156; 84300; 84439; 84443; 84466; 84484; 84550; 85014; 85018; 85025; 85027; 85610; 86317; 86704; 86803; 86850; 86900; 86901; 87340; 90935; 93005; 93306; 94640; 94760; 99285; C1752; C9113; J0360; J0690; J1200; J1644; J1940; J2250; J2405; J2704; J2916; J3010; J7040; Q5105; Q5106; U0003

== ENCOUNTER 2021-01-13 21:34 | Inpatient (IN) | payer OTHER ==
[2021-01-13] MEDS ORDERED: NA CHLORIDE 0.9% 100 ML ONE (22:34)
[2021-01-13] MEDS ORDERED: ACETAMINOPHEN 325 MG TABLET ONE (22:34)
[2021-01-13] MEDS ORDERED: CEFEPIME 1 GM/VIAL ONE (22:34)
[2021-01-13 23:00] LABS: Protime INR 1.11
[2021-01-13 23:01] LABS: Absolute Lymphocytes (CBC) 0.5 K/uL (0.7-4.9); Basophils % 0.4 % (0-1.3); Hematocrit 31.8 % (39.6-49.0); Lymphocytes % 4.7 % (15.3-44.8); MPV 8.2 fL (7.6-11.3); RBC Red Blood Cell Count 3.45 M/uL (4.33-5.43)
[2021-01-13 23:20] LABS: ALT/SGPT 16 U/L (12-78); AST/SGOT 10 U/L (15-37); Albumin 3.7 g/dL (3.4-5.0); Alkaline Phosphatase 113 U/L (45-117); BUN Blood Urea Nitrogen 35 mg/dL (7-18); Bicarbonate 22 mmol/L (21-32); Bilirubin Direct < 0.1 mg/dL (0-0.2); Bilirubin Total 0.3 mg/dL (0.2-1.0); Glucose Level 107 mg/dL (74-106); Magnesium 1.8 mg/dL (1.8-2.4); NT PRO-BNP 1582 pg/mL (<125); Potassium 5.2 mmol/L (3.5-5.1); Protein, Total 8.1 g/dL (6.4-8.2); Sodium Level 139 mmol/L (136-145); Troponin (Emerg Dept Use Only) < 0.02 ng/mL (0.0-0.045)
[2021-01-13 23:30] LABS: Blood Morphology Comment NOT SEEN (NOT SEEN); Platelet Estimate ADEQ
--- NOTE | 2021-01-13 23:55 | EDPHYS ---
Physician Documentation [facility] Name: Wild Koenig Age: 55 yrs Sex: Male : 1965 Arrival Date: 01/13/2021 Time: 21:35 Bed 3 Private MD: ED Physician James Severino HPI: 01/13 23:48 This 55 yrs old Male presents to ER via EMS with complaints of fever , sob and bernice couldnt breath. 23:48 The patient has shortness of breath at rest. Onset: The symptoms/episode began/occurred bernice 2 day(s) ago. Duration: The symptoms are continuous, and are steadily getting worse. The patient's shortness of breath is aggravated by coughing. Associated signs and symptoms: The patient has no apparent associated signs or symptoms. Severity of symptoms: At their worst the symptoms were mild moderate. The patient or guardian reports cough, difficulty breathing. Onset: The symptoms/episode began/occurred yesterday. Severity of symptoms: At their worst the symptoms were moderate, in the emergency department the symptoms have improved, moderately. The patient reports fever, that was measured at 101 degrees Fahrenheit. Historical: - Allergies: 22:04 No Known Allergies; sj1 - Immunization history:: Adult Immunizations up to date, Client reports receiving the 2nd dose of the Covid vaccine, Client reports receiving the 1st dose of the Covid vaccine. - Social history:: Smoking status: Patient denies any tobacco usage or history of. Patient uses street drugs, cocaine, Patient/guardian denies using alcohol. - Family history:: not pertinent. ROS: 23:48 Eyes: Negative for injury, pain, redness, and discharge, ENT: Negative for injury, bernice pain, and discharge, Neck: Negative for injury, pain, and swelling, Cardiovascular: Negative for chest pain, palpitations, and edema, Abdomen/GI: Negative for abdominal pain, nausea, vomiting, diarrhea, and constipation, Back: Negative for injury and pain, : Negative for injury, bleeding, discharge, and swelling, MS/Extremity: Negative for injury and deformity, Skin: Negative for injury, rash, and discoloration, Neuro: Negative for headache, weakness, numbness, tingling, and seizure, Psych: Negative for depression, anxiety, suicide ideation, homicidal ideation, and hallucinations, Allergy/Immunology: Negative for hives, rash, and allergies, Endocrine: Negative for neck swelling, polydipsia, polyuria, polyphagia, and marked weight changes, Hematologic/Lymphatic: Negative for swollen nodes, abnormal bleeding, and unusual bruising. 23:48 Respiratory: Positive for cough, "sounds productive", shortness of breath, at rest. Exam: 23:48 Head/Face: Normocephalic, atraumatic. Eyes: Pupils equal round and reactive to light, bernice extra-ocular motions intact. Lids and lashes normal. Conjunctiva and sclera are non-icteric and not injected. Cornea within normal limits. Periorbital areas with no swelling, redness, or edema. ENT: Nares patent. No nasal discharge, no septal abnormalities noted. Tympanic membranes are normal and external auditory canals are clear. Oropharynx with no redness, swelling, or masses, exudates, or evidence of obstruction, uvula midline. Mucous membranes moist. Neck: Trachea midline, no thyromegaly or masses palpated, and no cervical lymphadenopathy. Supple, full range of motion without nuchal rigidity, or vertebral point tenderness. No Meningismus. Chest/axilla: Normal chest wall appearance and motion. Nontender with no deformity. No lesions are appreciated. Cardiovascular: Regular rate and rhythm with a normal S1 and S2. No gallops, murmurs, or rubs. Normal PMI, no JVD. No pulse deficits. Abdomen/GI: Soft, non-tender, with normal bowel sounds. No distension or tympany. No guarding or rebound. No evidence of tenderness throughout. Back: No spinal tenderness. No costovertebral tenderness. Full range of motion. Male : Normal genitalia with no discharge or lesions. Skin: Warm, dry with normal turgor. Normal color with no rashes, no lesions, and no evidence of cellulitis. MS/ Extremity: Pulses equal, no cyanosis. Neurovascular intact. Full, normal range of motion. Neuro: Awake and alert, GCS 15, oriented to person, place, time, and situation. Cranial nerves II-XII grossly intact. Motor strength 5/5 in all extremities. Sensory grossly intact. Cerebellar exam normal. Normal gait. Psych: Awake, alert, with orientation to person, place and time. Behavior, mood, and affect are within normal limits. 23:48 Constitutional: The patient appears febrile. 23:48 Respiratory: mild respiratory distress is noted, Respirations: labored breathing, that is mild, Breath sounds: decreased breath sounds, Respiratory rate: 26 Vital Signs: 21:40 BP 132 / 96 LA Sitting (auto/lg); Pulse 86; Resp 26; Temp 102.2(O); Pulse Ox 99% on sj1 R/A; Weight 141.97 kg (R); Height 5 ft. 10 in. (177.80 cm) (R); Pain 0/10; 23:46 Temp 101.1(O); sj1 01/14 00:42 BP 122 / 61; Pulse 78; Resp 18; Pulse Ox 97% ; Pain 0/10; sj1 01:25 BP 120 / 71 LA Sitting (auto/reg); Pulse 74; Resp 18 S; Temp 98.7(O); Pulse Ox 99% on sj1 R/A; Pain 0/10; 01/13 21:40 Body Mass Index 44.91 (141.97 kg, 177.80 cm) [facility] MDM: 01/13 21:44 Patient medically screened. bernice 01/14 01:43 Differential diagnosis: Bronchitis Chronic Obstructive Pulmonary Disease viral bernice Infection, bacterial infection, URI, bronchitis, pneumonia UTI, pneumonia, pulmonary edema, Sepsis. Antibiotic administration: cefepime/ vancomycin. The patient's Wells Deep Vein Thrombosis Score was calculated as follows: Total Score: 0-2 Pts- Low Risk. Differential Diagnosis: Bronchitis Influenza Upper Respiratory Infection Sinusitis Pharyngitis Allergic Rhinitis Pneumonia. The patient's pulmonary embolism risk score was calculated as follows: Total Score: 0-2 points. This patient was found to be at low risk for a pulmonary embolism by using the Well's assessment criteria. Immunization status: Influenza vaccine: Data reviewed: vital signs, nurses notes, EMS record, lab test result(s), EKG, radiologic studies, CT scan, plain films. Data interpreted: monitoring tech: rate is 74 beats/min, rhythm is regular, Pulse oximetry: on room air is 99 %. Test interpretation: by ED physician or midlevel provider: ECG, plain radiologic studies. Counseling: I had a detailed discussion with the patient and/or guardian regarding: the historical points, exam findings, and any diagnostic results supporting the discharge/admit diagnosis, lab results, radiology results, the need for further work-up and treatment in the hospital. 01/13 21:46 Order name: Basic Metabolic Panel [facility] 01/13 21:46 Order name: CBC with Diff [facility] 01/13 21:46 Order name: LFT's [facility] 01/13 21:46 Order name: Magnesium; Complete Time: 23:45 [facility] 01/13 21:46 Order name: NT PRO-BNP; Complete Time: 23:45 [facility] 01/13 21:46 Order name: PT-INR; Complete Time: 23:04 [facility] 01/13 21:46 Order name: Troponin (emerg Dept Use Only); Complete Time: 23:45 [facility] 01/13 21:46 Order name: Basic Metabolic Panel; Complete Time: 23:45 EDMS 01/13 21:46 Order name: CBC with Automated Diff; Complete Time: 23:45 EDMD 01/13 21:46 Order name: Liver (Hepatic) Function; Complete Time: 23:45 EDMS 01/13 21:49 Order name: Blood Culture Adult (2) [facility] 01/13 21:49 Order name: Lactate; Complete Time: 23:45 [facility] 01/13 21:49 Order name: Influenza Screen (a \\T\\ B); Complete Time: 00:16 [facility] 01/13 21:46 Order name: XRAY Chest (1 view) [facility] 01/13 21:46 Order name: EKG; Complete Time: 21:46 [facility] 01/13 21:46 Order name: Cardiac monitoring; Complete Time: 22:33 [facility] 01/13 21:46 Order name: EKG - Nurse/Tech; Complete Time: 22:33 [facility] 01/13 21:46 Order name: IV Saline Lock; Complete Time: 22:33 [facility] 01/13 21:46 Order name: Labs collected and sent; Complete Time: 22:33 [facility] 01/13 21:46 Order name: O2 Per Protocol; Complete Time: 22:33 [facility] 01/13 21:54 Order name: Procalcitonin; Complete Time: 23:45 la 01/13 22:55 Order name: SARS-COV-2 RT PCR; Complete Time: 00:16 EDMD 01/13 23:04 Order name: Manual Differential; Complete Time: 23:45 EDMS 01/14 00:35 Order name: CT Chest Abdomen Pelvis W/O Contrast [facility] 01/13 21:46 Order name: O2 Sat Monitoring; Complete Time: 22:33 bernice Administered Medications: 01/13 22:32 Drug: Tylenol 650 mg Route: PO; sj1 01/14 01:31 Follow up: Response: Temperature is decreased sj1 01/13 22:32 Drug: Cefepime 1 grams Route: IVPB; Rate: 200 ml/hr; Infused Over: 30 mins; Site: right sj1 hand; 01/14 01:31 Follow up: IV Status: Completed infusion; IV Intake: 100ml sj1 :19 Drug: Kayexalate (polystyrene) 30 grams Route: PO; sj1 :31 Follow up: Response: No adverse reaction sj1 :19 Drug: vancoMYCIN 1 grams Route: IVPB; Infused Over: 2 hrs; Site: right hand; sj1 :19 Drug: Lasix (furosemide) 40 mg Route: IVP; Site: right hand; sj1 :31 Follow up: Response: No adverse reaction sj1 Disposition Summary: 01/13/21 23:54 Hospitalization Ordered Hospitalization Status: Inpatient Admission bernice [facility] bernice Condition: Fair bernice Problem: new bernice Symptoms: have improved bernice Bed/Room Type: Standard bernice Provider: Dean Carey(01/14/21 00:38) la1 Room Assignment: [facility](01/14/21 01:35) Diagnosis - Fever, unspecified bernice - Dyspnea bernice - Hypoxemia bernice - End stage renal disease - on hd bernice - Obesity, unspecified bernice - Hyperkalemia bernice - Cellulitis and acute lymphangitis of other parts of limb - anterior tibial bernice Discharge Instructions: - Discharge Summary Sheet sj1 Forms: - Medication Reconciliation Form bernice - SBAR form sj1 Signatures: Dispatcher [employer] Cassandra Cisneros RN RN mw Anderson, Corey, MD MD cha Attema, Lee, JUMPBASTING FACING BASTER-C JUMPBASTING FACING BASTER-Cla1 Marissa Ambriz RN RN sj1 Corrections: (The following items were deleted from the chart) 01/13 22:55 21:46 CORONAVIRUS+MRBarbaraLAB.BRZ ordered. TACOSMD TREVOR 01/14 00:38 01/13 23:54 Quan Canela cha la1 01/14 01:35 01/13 23:54 bernice ratliff
--- NOTE | 2021-01-13 23:55 | ER ---
Nurse's Notes [facility] Name: Wild Koenig Age: 55 yrs Sex: Male : 1965 Arrival Date: 01/13/2021 Time: 21:35 Bed 3 Private MD: Diagnosis: Fever, unspecified;Dyspnea;Hypoxemia;End stage renal disease-on hd;Obesity, unspecified;Hyperkalemia;Cellulitis and acute lymphangitis of other parts of limb-anterior tibial Presentation: 01/13 21:40 Chief complaint: Patient states: BIBA EMS FROM [facility] FOR FEVER 101, SOB X 1 sj1 WK, CHILLS. COVID VAX 2. 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 BS [address] DIALYSIS MWF, LAST DIALYSIS TX YESTERDAY. Coronavirus screen: Vaccine status: Patient reports receiving the 2nd dose of the covid vaccine. Patient reports receiving the 1st dose of the Covid vaccine. Ebola Screen: Patient negative for fever greater than or equal to 101.5 degrees Fahrenheit, and additional compatible Ebola Virus Disease symptoms Patient denies exposure to infectious person. Patient denies travel to an Ebola-affected area in the 21 days before illness onset. Initial Sepsis Screen: Does the patient meet any 2 criteria? RR > 20 per min. Temp <36.0*C (96.8*F)) or > 38.3*C (100.9*F). Yes Does the patient have a suspected source of infection? No. Patient's initial sepsis screen is negative. Risk Assessment: Do you want to hurt yourself or someone else? Patient reports no desire to harm self or others. Note CODE SEPSIS CALLED, AWARE. Onset of symptoms was January 13, 2021. 21:40 Method Of Arrival: EMS sj1 21:40 Acuity: MYNOR 2 sj1 Triage Assessment: 22:04 General: Appears uncomfortable, Behavior is calm, cooperative, appropriate for age. sj1 Pain: Denies pain. EENT: No deficits noted. Neuro: No deficits noted. Cardiovascular: No deficits noted. Respiratory: Reports shortness of breath. GI: No deficits noted. : No deficits noted. Derm: No deficits noted. Musculoskeletal: No deficits noted. Historical: - Allergies: 22:04 No Known Allergies; sj1 - Immunization history:: Adult Immunizations up to date, Client reports receiving the 2nd dose of the Covid vaccine, Client reports receiving the 1st dose of the Covid vaccine. - Social history:: Smoking status: Patient denies any tobacco usage or history of. Patient uses street drugs, cocaine, Patient/guardian denies using alcohol. - Family history:: not pertinent. Screenin:34 Fall Risk None identified. IV access (20 points). sj1 22:34 Abuse screen: Denies threats or abuse. Denies injuries from another. Nutritional sj1 screening: No deficits noted. Tuberculosis screening: No symptoms or risk factors identified. Assessment: 01/14 01:43 Reassessment: report given to Sandra LYONS VSS for transport. [facility] Vital Signs: 01/13 21:40 BP 132 / 96 LA Sitting (auto/lg); Pulse 86; Resp 26; Temp 102.2(O); Pulse Ox 99% on sj1 R/A; Weight 141.97 kg (R); Height 5 ft. 10 in. (177.80 cm) (R); Pain 0/10; 23:46 Temp 101.1(O); sj1 01/14 00:42 BP 122 / 61; Pulse 78; Resp 18; Pulse Ox 97% ; Pain 0/10; sj1 01:25 BP 120 / 71 LA Sitting (auto/reg); Pulse 74; Resp 18 S; Temp 98.7(O); Pulse Ox 99% on sj1 R/A; Pain 0/10; 01/13 21:40 Body Mass Index 44.91 (141.97 kg, 177.80 cm) 1 ED Course: 01/13 21:35 Patient arrived in ED. wg 21:44 James Severino MD is Attending Physician. [facility] 22:04 Triage completed. sj1 22:04 Arm band placed on right wrist. Patient placed in an exam room, on a stretcher, on sj1 cardiac nurse, on pulse oximetry. EKG completed in triage. Results shown to . 22:06 No provider procedures requiring assistance completed. Inserted saline lock: 20 gauge sj1 in right hand, using aseptic technique. Blood collected. 22:28 XRAY Chest (1 view) In Process Unspecified. EDMS 22:32 Procalcitonin Sent. sj1 22:32 Lactate Sent. sj1 22:32 Influenza Screen (a \T\ B) Sent. sj1 22:32 Blood Culture Adult (2) Sent. sj1 22:33 Patient has correct armband on for positive identification. Bed in low position. Call [facility] light in reach. Side rails up X 1. Door closed. Noise minimized. Lights dimmed. 22:33 Liver (Hepatic) Function Sent. sj1 22:33 CBC with Automated Diff Sent. sj1 22:33 Basic Metabolic Panel Sent. sj1 22:33 Basic Metabolic Panel Sent. sj1 22:33 CBC with Diff Sent. sj1 22:33 LFT's Sent. sj1 23:53 Quan Canela DO is Hospitalizing Provider. [facility] 01/14 00:38 Dean Carey MD is Hospitalizing Provider. nh1 01:19 CT Chest Abdomen Pelvis W/O Contrast Sent. [facility] Administered Medications: 01/13 22:32 Drug: Tylenol 650 mg Route: PO; 1 01/14 01:31 Follow up: Response: Temperature is decreased 1 01/13 22:32 Drug: Cefepime 1 grams Route: IVPB; Rate: 200 ml/hr; Infused Over: 30 mins; Site: right [facility] hand; 01/14 01:31 Follow up: IV Status: Completed infusion; IV Intake: 100ml sj1 01:19 Drug: Kayexalate (polystyrene) 30 grams Route: PO; sj1 01:31 Follow up: Response: No adverse reaction sj1 01:19 Drug: vancoMYCIN 1 grams Route: IVPB; Infused Over: 2 hrs; Site: right hand; sj1 01:19 Drug: Lasix (furosemide) 40 mg Route: IVP; Site: right hand; sj1 01:31 Follow up: Response: No adverse reaction 1 Intake: :31 IV: 100ml; Total: 100ml. [facility] Outcome: 01/13 23:54 Decision to Hospitalize by Provider. [facility] 01/14 02:11 Patient left the ED. wg Signatures: Dispatcher [employer] EDJames Navarro MD MD cha Attema, Lee, SCROLL MACHINE OPERATOR-C SCROLL MACHINE OPERATOR-Cla1 Caden Choi, RN Marissa Kumar RN RN [facility] Corrections: (The following items were deleted from the chart) 01/13 22:55 22:33 CORONAVIRUS+MR.LAB.BRZ drawn and sent. sj1 EDMS
--- NOTE | 2021-01-14 00:54 | P.HP ---
Certification for Inpatient Patient admitted to: Inpatient With expected LOS: >2 Midnights Patient will require the following post-hospital care: None Practitioner: I am a practitioner with admitting privileges, knowledge of patient current condition, hospital course, and medical plan of care. Services: Services provided to patient in accordance with Admission requirements found in Title 42 Section 412.3 of the Code of Federal Regulations <Jessee Timmons - Last Filed: 01/14/21 00:47> Patient History Date of Service: 01/14/21 Primary Care Provider: Dr. Karan TOLBERT Reason for admission: Fever, dyspnea, hyperkalemia History of Present Illness: 55-year-old male with history of diabetes mellitus type 2, ESRD recently initiated on HD, chronic diastolic congestive heart failure, chronic anemia, morbid obesity presents emergency department for fever. Patient reports fever began this evening around 9 or 10 PM, patient has been feeling short of breath at home ever since he left the hospital reportedly ROS otherwise negative. Patient was evaluated in the emergency department labs were significant for white blood cell count 11.3 with left shift hemoglobin 10.2 hematocrit 31.88% bandemia creatinine 5.16 GFR 12 BUN 35 potassium 5.2 procalcitonin 0.06 Covid/influenza negative chest x-ray appears to demonstrate mild volume overload pattern. Patient with questionable cellulitis to the right lower extremity, also has recently placed dialysis catheter in the right anterior chest wall both possible sources of infection. Blood cultures were obtained in the emergency department, vital signs are stable patient does not appear septic at this time. Patient was started on cefepime/vancomycin given Lasix/Kayexalate for hyperkalemia and emergency department physician wishes to admit for further evaluation and management. - Past Medical/Surgical History Diabetic: Yes -: Chronic Back Pain -: Hypertension -: Diabetes mellitus type 2 insulin dependent -: Depression Anxiety -: Anxiety -: ESRD on HD -: Chronic diastolic congestive heart failure -: Morbid obesity -: eye surgery -: Dialysis catheter insertion right anterior chest wall Psychosocial/ Personal History: Patient lives with aunt - Family History Family History: Reviewed- Non-Contributory - Social History Smoking Status: Never smoker Alcohol use: No CD- Drugs: No Caffeine use: No Place of Residence: Home <Jessee Timmons - Last Filed: 01/14/21 00:47> Date of Service: 01/14/21 <Dean Carey - Last Filed: 01/14/21 16:54> Allergies No Known Allergies Allergy (Verified 05/03/19 04:58) Home Medications: Gabapentin 300 mg PO DAILY 11/15/19 Insulin Detemir [Levemir Flextouch] 33 units SQ BID 11/15/19 Calcitrol [Rocaltrol*] 0.5 mcg PO DAILY #60 cap 11/19/19 Furosemide [Lasix] 80 mg PO BID #60 tablet 11/19/19 carvediloL [Coreg*] 25 mg PO BID #60 tab 11/19/19 hydrOXYzine HCL [Atarax] 50 mg PO Q6HR PRN 12/24/20 ARIPiprazole [Aripiprazole] 1 tab PO DAILY 12/25/20 Aspirin [Vazalore] 1 tab PO DAILY 12/25/20 Atorvastatin Calcium 1 tab PO BEDTIME 12/25/20 Cholecalciferol (Vitamin D3) [Vitamin D 5,000 IU Cap*] 1,250 mcg PO DAILY 12/25/20 Insulin -Regular Human [Novolin -R*] 11 units SQ TIDWM 12/25/20 Trazodone [Desyrel*] 100 mg PO BEDTIME 12/25/20 Amlodipine [Norvasc*] 5 mg PO DAILY 30 Days #30 tab 01/05/21 Doxazosin Mesylate [Cardura] 2 mg PO BID 30 Days #60 tablet 01/05/21 Review of Systems 10-point ROS is otherwise unremarkable General: Fever, Chills, Weakness, Malaise Respiratory: Shortness of Breath <Jessee Timmons Mao - Last Filed: 01/14/21 00:47> Physical Examination - Physical Exam General: Alert, In no apparent distress, Oriented x3 HEENT: Atraumatic, PERRLA, Mucous membr. moist/pink, EOMI, Sclerae nonicteric Neck: Supple, 2+ carotid pulse no bruit, No LAD, Without JVD or thyroid abnormality Respiratory: Normal air movement, Diminished Cardiovascular: Regular rate/rhythm, Normal S1 S2 Gastrointestinal: Normal bowel sounds, Tenderness (Mild right upper quadrant abdominal tenderness) Musculoskeletal: No tenderness Integumentary: Tenderness/swelling, Erythema (Right lower extremity), Warmth Neurological: Normal speech, Normal strength at 5/5 x4 extr, Normal tone, Normal affect Lymphatics: No axilla or inguinal lymphadenopathy - Studies Laboratory Data (last 24 hrs) 01/13/21 22:26: PT 12.8 H, INR 1.11 01/13/21 22:26: WBC 11.30 H D, Hgb 10.2 L, Hct 31.8 L D, Plt Count 249 01/13/21 22:26: Sodium 139, Potassium 5.2 H, BUN 35 H, Creatinine 5.16 H* D, Glucose 107 H, Magnesium 1.8 D, Total Bilirubin 0.3, AST 10 L, ALT 16, Alkaline Phosphatase 113 Microbiology Data (last 24 hrs): 01/13/21 22:26 Nasopharnyx Influenza Type A Antigen Screen - Final 01/13/21 22:26 Nasopharnyx Influenza Type B Antigen Screen - Final <Jessee Timmons - Last Filed: 01/14/21 00:47> - Studies Laboratory Data (last 24 hrs) 01/13/21 22:26: PT 12.8 H, INR 1.11 01/13/21 22:26: WBC 11.30 H D, Hgb 10.2 L, Hct 31.8 L D, Plt Count 249 01/13/21 22:26: Sodium 139, Potassium 5.2 H, BUN 35 H, Creatinine 5.16 H* D, Glucose 107 H, Magnesium 1.8 D, Total Bilirubin 0.3, AST 10 L, ALT 16, Alkaline Phosphatase 113 Microbiology Data (last 24 hrs): 01/13/21 22:26 Blood - Blood Blood Culture Gram Stain - Final 01/13/21 22:26 Blood - Blood Gram Stain - Final 01/13/21 22:20 Blood - Blood Blood Culture Gram Stain - Final 01/13/21 22:20 Blood - Blood Gram Stain - Final 01/13/21 22:26 Nasopharnyx Influenza Type A Antigen Screen - Final 01/13/21 22:26 Nasopharnyx Influenza Type B Antigen Screen - Final <Dean Carey - Last Filed: 01/14/21 16:54> Assessment and Plan - Plan Assessment: Fever, leukocytosis, bandemia unconfirmed source Dyspnea secondary to acute on chronic diastolic congestive heart failure/ESRD on HD MWF with volume overload: Diabetes mellitus type 2 Anemia of chronic disease Hypertension Morbid obesity Plan: Fever, leukocytosis, bandemia unconfirmed source: Continue broad-spectrum antibiotics vancomycin/cefepime, questionable cellulitis of the right lower extremity also recently had CVC placed for dialysis to the right anterior chest wall, blood cultures were obtained procalcitonin only mildly elevated lactate negative. Patient does not appear septic at this time. Infectious disease consulted for additional assistance. Patient with some mild right upper quadrant abdominal tenderness on exam CT noncontrast ordered and pending. Dyspnea secondary to acute on chronic diastolic congestive heart failure/ESRD on HD MWF with volume overload: Patient due for dialysis tomorrow, nephrology consulted, continue with Lasix as well 40 mg IV twice daily. Initial potassium 5.2 patient received Kayexalate and Lasix in the ER. Appreciate further input from nephrology Diabetes mellitus type 2: A [facility] Accu-Chek sliding scale insulin. Obtain patient home dose of long-acting insulin and continue. Anemia of chronic disease: Transfuse as necessary to maintain hemoglobin greater than 7 Hypertension: Obtain and continue home medications Morbid obesity: Lifestyle changes to be addressed. DVT PPX: Heparin subcu Code status: Full Discharge Plan: Home Plan to discharge in: 48 Hours - Advance Directives Does patient have a Living Will: No Does patient have a Durable POA for Healthcare: No - Code Status/Comfort Care Code Status Assessed: Yes (Full code) Critical Care: No Time Spent Managing Pts Care (In Minutes): 55 <Jessee Timmons - Last Filed: 01/14/21 00:47> - Plan Patient seen and examined on rounds this morning. Reports feeling very tired overall not feeling well Patient appears septic, likely secondary to line infection Some notable erythema dark drainage around right IJ dialysis catheter Blood cultures preliminary positive for gram-positive cocci in clusters Infectious disease consulted, nephrology consulted We will consult general surgery, will need dialysis catheter removed, culture the tip, catheter holiday and subsequent replacement in a few days Follow-up cultures Patient does have some mild erythema in his right lower extremity slightly worse than left lower extremity, possibility of a mild cellulitis, unlikely source of bacteremia <Dean Carey - Last Filed: 01/14/21 16:54>
[2021-01-14] MEDS ORDERED: VANCOMYCIN 1 GM/VIAL ONE (01:26)
[2021-01-14] MEDS ORDERED: NA CHLORIDE 0.9% 250 ML ONE (01:26)
[2021-01-14] MEDS ORDERED: FUROSEMIDE 40 MG/4 ML VIAL ONE (01:26)
[2021-01-14] MEDS ORDERED: SOD POLYSTYREN SUL 15 GM/60 ML UCUP ONE (01:29)
[2021-01-14] MEDS ORDERED: VANCOMYCIN/NS 1 gm 1 GM/250 ML BAG IVPB SCH (02:29)
[2021-01-14] MEDS ORDERED: ONDANSETRON 4 MG/2 ML VIAL IV PRN (02:29)
[2021-01-14] MEDS: ACETAMINOPHEN 500 MG TAB PO PRN ×3 (06:17→20:05)
[2021-01-14] MEDS ORDERED: NA CHLORIDE 0.9% 1,000 ML IV PRN (06:44)
[2021-01-14] MEDS ORDERED: MANNITOL 25% 12.5 GM/50 ML VIAL IV PRN (06:44)
[2021-01-14] MEDS ORDERED: ALBUMIN HUMAN 25% 50 ML IV SCH (07:00)
--- NOTE | 2021-01-14 07:11 | RAD REPORT ---
EXAM DESCRIPTION: RAD - Chest Single View - 01/13/2021 10:29 pm CLINICAL HISTORY: DYSPNEA COMPARISON: Chest Single View dated 12/26/2020; Chest Single View dated 12/25/2020; Chest Single View dated 12/24/2020; Chest Single View dated 11/15/2019; Chest Abd Pelvis Wo Con dated 01/14/2021 FINDINGS: Lines:Right IJ approach dialysis catheter with tip overlying the right brachycephalic vein . Lungs: Pulmonary vascular congestion. Pleural: No significant pleural effusions or pneumothorax. Cardiac: Cardiomegaly. Bones: No acute fractures. Other: None IMPRESSION: Pulmonary vascular congestion. No consolidative airspace disease.
[2021-01-14] MEDS ORDERED: CEFEPIME 1 GM/VIAL IV SCH (09:00)
[2021-01-14] MEDS: HEPARIN 5000 UNIT/ML 1 ML VIAL SQ SCH ×2 (09:13→20:05)
[2021-01-14] MEDS: CEFEPIME 1 GM/100 ML BAG IV SCH (09:14)
[2021-01-14] MEDS: INSULIN -REGULAR HUMAN 50 UNIT/0.5 ML ML SQ SCH ×4 (09:26→20:05)
--- NOTE | 2021-01-14 10:36 | P.CNS ---
Date of Consult: 01/14/21 Primary Care Provider: TOMASZ, Dr. Russo Chief Complaint: Fever, dyspnea, hyperkalemia History of Present Illness: The patient is a 55-year-old male with a past medical history of diabetes mellitus type 2, ESRD recently started on HD, chronic diastolic congestive heart failure, chronic anemia, and morbid obesity who presented to the emergency department due to fever and shortness of breath. Patient had a right central venous catheter placed 3 days ago. Patient received his 1st session of hemodialysis on Tuesday. Patient's symptoms 1st started on Tuesday, he woke up with fever and shortness of breath. In the ED labs were significant of bed T-max of 102.2, WBC 13.3 with left shift, hemoglobin 10.2, creatinine 5.16, GFR 12, potassium 5.2, procalcitonin 0.06. Coded and influenza test negative. Chest x-ray appears to demonstrate mild volume overload pattern. Blood cultures performed on 01/13, growing gram-positive cocci in clusters. Infectious disease has been consulted to manage the patient's infection. Source of infection likely due to infected right central venous catheter. Patient currently reports fevers, chills, and decreased appetite. Patient denies nausea/vomiting/diarrhea/chest pain. Allergies No Known Allergies Allergy (Verified 05/03/19 04:58) Home Medications: Gabapentin 300 mg PO DAILY 11/15/19 Insulin Detemir [Levemir Flextouch] 33 units SQ BID 11/15/19 Calcitrol [Rocaltrol*] 0.5 mcg PO DAILY #60 cap 11/19/19 Furosemide [Lasix] 80 mg PO BID #60 tablet 11/19/19 carvediloL [Coreg*] 25 mg PO BID #60 tab 11/19/19 hydrOXYzine HCL [Atarax] 50 mg PO Q6HR PRN 12/24/20 ARIPiprazole [Aripiprazole] 1 tab PO DAILY 12/25/20 Aspirin [Vazalore] 1 tab PO DAILY 12/25/20 Atorvastatin Calcium 1 tab PO BEDTIME 12/25/20 Cholecalciferol (Vitamin D3) [Vitamin D 5,000 IU Cap*] 1,250 mcg PO DAILY 12/25/20 Insulin -Regular Human [Novolin -R*] 11 units SQ TIDWM 12/25/20 Trazodone [Desyrel*] 100 mg PO BEDTIME 12/25/20 Amlodipine [Norvasc*] 5 mg PO DAILY 30 Days #30 tab 01/05/21 Doxazosin Mesylate [Cardura] 2 mg PO BID 30 Days #60 tablet 01/05/21 - Past Medical/Surgical History Diabetic: Yes -: Chronic Back Pain -: Hypertension -: Diabetes mellitus type 2 insulin dependent -: Depression Anxiety -: Anxiety -: ESRD on HD -: Chronic diastolic congestive heart failure -: Morbid obesity -: eye surgery -: Dialysis catheter insertion right anterior chest wall Psychosocial/ Personal History: Patient lives with aunt - Social History Smoking Status: Unknown if ever smoked Alcohol use: No CD- Drugs: No Caffeine use: No Place of Residence: Home Review of Systems 10-point ROS is otherwise unremarkable Physical Examination Temp Pulse Resp BP Pulse Ox 98.9 F 75 18 127/58 L 97 01/14/21 08:00 01/14/21 08:00 01/14/21 08:00 01/14/21 08:00 01/14/21 08:00 General: Alert, Oriented x3, Obese HEENT: Atraumatic, Normocephalic Neck: Other (Right CVC, francis wound tissue erythematous. Thick drainage noted from site.) Respiratory: Clear to auscultation bilaterally, Normal air movement Cardiovascular: No edema, Regular rate/rhythm, Normal S1 S2 Capillary refill: <2 Seconds Gastrointestinal: Normal bowel sounds, Soft and benign, Non-distended Musculoskeletal: No clubbing, No swelling, No contractures Integumentary: Other (Bilateral lower extremity stasis dermatitis. Right lower extremity erythema. No open wounds.) Laboratory Data (last 24 hrs) 01/13/21 22:26: PT 12.8 H, INR 1.11 01/13/21 22:26: WBC 11.30 H D, Hgb 10.2 L, Hct 31.8 L D, Plt Count 249 01/13/21 22:26: Sodium 139, Potassium 5.2 H, BUN 35 H, Creatinine 5.16 H* D, Glucose 107 H, Magnesium 1.8 D, Total Bilirubin 0.3, AST 10 L, ALT 16, Alkaline Phosphatase 113 Conclusions/Impression: Antibiotics: Vancomycin Start: 01/14 stop: -- Cefepime Start: 10/13 Stop:-- Assessment/plan Sepsis likely due to an infected right CVC Patient had a septic presentation on admission with leukocytosis and a T-max of 102.2. Preliminary blood cultures obtained on 01/13 growing gram-positive cocci in clusters. Continue broad-spectrum IV antibiotic coverage with vancomycin and cefepime at this time. Patient will need right CVC replaced. Right lower extremity cellulitis Continuing broad-spectrum IV antibiotic coverage Leukocytosis with left shift Continue to monitor WBC trend in fever curve. Procalcitonin 0.06. ESRD on HD Nephrology on case. Continue to monitor CBC and BMP Continue to monitor for signs of infection medical management per primary team Plan of care discussed with Dr. Godfrey Thank you for consultation
--- NOTE | 2021-01-14 10:52 | RAD REPORT ---
EXAM DESCRIPTION: CT - Chest Abd Pelvis Wo Con - 01/14/2021 6:25 am CLINICAL HISTORY: 55 years, Male, Congestion;Abdominal distention;Fever COMPARISON: 11/15/2019 TECHNIQUE: Multiple transaxial tomograms of the chest, abdomen and pelvis were performed from the filomena ng apices to the symphysis pubis 5 mm slice thickness at 5 mm interval reconstruction, without admini stration of IV and oral contrast. Multiplanar reformats in the sagittal and coronal plane were generated and reviewed. This exam was performed according to our departmental dose-optimization protocol, which includes auto mated exposure control, adjustment of the mA and/or kV according to patient size and/or use of iterat vonnie reconstruction technique. FINDINGS: The lack of IV and oral contrast limits evaluation of solid organs, subtle lesions cannot be excluded. Chest: The lung demonstrate to be clear. There is no evidence for pleural effusions/or pericardial ef fusions. The trachea mainstem bronchus demonstrate to be unremarkable. There is a right IJ tunnel luz maria lysis catheter. The heart is not enlarged. There are coronary artery calcifications. There is no sign ificant mediastinal or an/or hilar lymphadenopathy. Axillary regions demonstrate to be clear. The bon e windows demonstrate no significant skeletal lesions. Abdomen and pelvis: Grossly the unopacified liver, gallbladder, pancreas, spleen and adrenal glands d emonstrate to be within normal limits, no significant focal lesions were identified. There is no bi liary duct dilatation. The kidneys demonstrate grossly unremarkable. There is no evidence for nephrolithiasis and/or hydro nephrosis. Grossly the unopacified stomach, small bowel and large bowel demonstrate to be within normal limits. There is no evidence for bowel dilatation/or free air. The appendix is normal.. The urinary bladder demonstrate to be within normal limits. The prostate gland is unremarkable The ao rta demonstrate minimal atherosclerotic disease. There is significant atherosclerotic disease of the branches of the abdominal aorta. There is no retroperitoneal lymphadenopathy. There is no evidenc e for ascites. The bone windows demonstrate minimal diffuse bony osteopenia. Minimal degenerative dis c disease at L4/L5 and L5/S1. IMPRESSION: No evidence for nephrolithiasis and/or hydronephrosis. Minimal diffuse bony osteopenia. Minimal degenerative disc disease at L4/L5 and L5/S1. Coronary artery calcifications. Right IJ tunnel dialysis catheter. Heavy vascular opacification branches of the abdominal aorta. Electronically signed by: Dominic Robin MD 01/14/2021 1:30 AM CDT Due to temporary technical issues with the PACS/Fluency reporting system, reports are being signed by the in house radiologist without review as a courtesy to ensure prompt reporting. The interpreting r adiologist is fully responsible for the content of the report.
[2021-01-14] MEDS ORDERED: VANCOMYCIN 2 GM in NA CHLORIDE 0.9% 500 ML IVPB ONE (16:00)
--- NOTE | 2021-01-14 16:37 | EKG ---
Test Date: 2021-01-13 Test Time: 21:46:53 Assistant Merchandiser: MEASUREMENT RESULTS: Intervals: Rate: 86 WV: 122 QRSD: 88 QT: 346 QTc: 414 [place]: P: 20 WV: 122 QRS: -25 T: 23 INTERPRETIVE STATEMENTS: Normal sinus rhythm Cannot rule out Anterior infarct, age undetermined Abnormal ECG Compared to ECG 12/24/2020 03:23:22 Myocardial infarct finding now present Fusion complex(es) no longer present Electronically Signed On 01-14-21 16:35:41 CDT by Efrain Louis
[2021-01-14 16:51] LABS: Urine Appearance TURBID (Clear); Urine Bilirubin NEGATIVE (Negative); Urine Blood TRACE (Negative); Urine Color YELLOW (Yellow); Urine Glucose 1+ (Negative); Urine Protein 3+ (Negative); Urine Urobilinogen 0.2 mg/dL (0.2-1.0)
[2021-01-14 16:57] LABS: Urine Microscopic Reflex ORDER UMIC
[2021-01-14 17:08] LABS: Urine Bacteria >50 /HPF (NONE SEEN); Urine RBC <5 /HPF (NONE SEEN)
[2021-01-14] MEDS: FLUTICASONE 50MCG NASAL SPRAY NAS SCH ×2 (17:41→20:12)
--- NOTE | 2021-01-14 20:09 | P.CNS ---
Date of Consult: 01/14/21 Reason for Consult: ESRD Requesting Physician: Dean Carey Primary Care Provider: [place], Dr. Russo Chief Complaint: Fever, dyspnea, hyperkalemia History of Present Illness: 55-year-old male with history of diabetes mellitus type 2, ESRD recently initiated on HD, chronic diastolic congestive heart failure, chronic anemia, morbid obesity presents emergency department for fever. Patient reports fever began this evening around 9 or 10 PM, patient has been feeling short of breath at home ever since he left the hospital reportedly ROS otherwise negative. Patient was evaluated in the emergency department labs were significant for white blood cell count 11.3 with left shift hemoglobin 10.2 hematocrit 31.88% bandemia creatinine 5.16 GFR 12 BUN 35 potassium 5.2 procalcitonin 0.06 Covid/influenza negative chest x-ray appears to demonstrate mild volume overload pattern. Patient with questionable cellulitis to the right lower extremity, also has recently placed dialysis catheter in the right an terior chest wall both possible sources of infection. Blood cultures were obtained in the emergency department, vital signs are stable patient does not appear septic at this time. Patient was started on cefepime/vancomycin given Lasix/Kayexalate for hyperkalemia and emergency department physician wishes to admit for further evaluation and management. 23:48 This 55 yrs old Male presents to ER via EMS with complaints of fever , sob and bernice couldnt breath. 23:48 The patient has shortness of breath at rest. Onset: The symptoms/episode began/occurred ebrnice 2 day(s) ago. Duration: The symptoms are continuous, and are steadily getting worse. The patient's shortness of breath is aggravated by coughing. Associated signs and symptoms: The patient has no apparent associated signs or symptoms. Severity of symptoms: At their worst the symptoms were mild moderate. The patient or guardian reports cough, difficulty breathing. Onset: The symptoms/episode began/occurred yesterday. Severity of symptoms: At their worst the symptoms were moderate, in the emergency department the symptoms have improved, moderately. The patient reports fever, that was measured at 101 degrees Fahrenheit. Allergies No Known Allergies Allergy (Verified 05/03/19 04:58) Home medications list reviewed: Yes Home Medications: Gabapentin 300 mg PO DAILY 11/15/19 Insulin Detemir [Levemir Flextouch] 33 units SQ BID 11/15/19 Calcitrol [Rocaltrol*] 0.5 mcg PO DAILY #60 cap 11/19/19 Furosemide [Lasix] 80 mg PO BID #60 tablet 11/19/19 carvediloL [Coreg*] 25 mg PO BID #60 tab 11/19/19 hydrOXYzine HCL [Atarax] 50 mg PO Q6HR PRN 12/24/20 ARIPiprazole [Aripiprazole] 1 tab PO DAILY 12/25/20 Aspirin [Vazalore] 1 tab PO DAILY 12/25/20 Atorvastatin Calcium 1 tab PO BEDTIME 12/25/20 Cholecalciferol (Vitamin D3) [Vitamin D 5,000 IU Cap*] 1,250 mcg PO DAILY 12/25/20 Insulin -Regular Human [Novolin -R*] 11 units SQ TIDWM 12/25/20 Trazodone [Desyrel*] 100 mg PO BEDTIME 12/25/20 Amlodipine [Norvasc*] 5 mg PO DAILY 30 Days #30 tab 01/05/21 Doxazosin Mesylate [Cardura] 2 mg PO BID 30 Days #60 tablet 01/05/21 - Past Medical/Surgical History Diabetic: Yes -: Chronic Back Pain -: Hypertension -: Diabetes mellitus type 2 insulin dependent -: Depression Anxiety -: Anxiety -: ESRD on HD -: Chronic diastolic congestive heart failure -: Morbid obesity -: eye surgery -: Dialysis catheter insertion right anterior chest wall Psychosocial/ Personal History: Patient lives with aunt - Social History Smoking Status: Unknown if ever smoked Alcohol use: No CD- Drugs: No Caffeine use: No Place of Residence: Home Review of Systems 10-point ROS is otherwise unremarkable General: Chills, Weakness, Malaise Physical Examination Temp Pulse Resp BP Pulse Ox 99.6 F 83 18 151/56 H 98 01/14/21 15:55 01/14/21 15:55 01/14/21 15:55 01/14/21 15:55 01/14/21 15:55 General: Oriented x3, Cooperative, Moderate distress HEENT: Atraumatic Neck: Supple Respiratory: Clear to auscultation bilaterally Cardiovascular: Regular rate/rhythm, Edema Gastrointestinal: Soft and benign, Non-distended Musculoskeletal: No clubbing, No contractures Integumentary: No rashes, No cyanosis, Erythema Neurological: Normal speech Laboratory Data (last 24 hrs) 01/13/21 22:26: PT 12.8 H, INR 1.11 01/13/21 22:26: WBC 11.30 H D, Hgb 10.2 L, Hct 31.8 L D, Plt Count 249 01/13/21 22:26: Sodium 139, Potassium 5.2 H, BUN 35 H, Creatinine 5.16 H* D, Glu cose 107 H, Magnesium 1.8 D, Total Bilirubin 0.3, AST 10 L, ALT 16, Alkaline Phosphatase 113 Imagings Data: EXAM DESCRIPTION: RAD - Chest Single View - 01/13/2021 10:29 pm CLINICAL HISTORY: DYSPNEA COMPARISON: Chest Single View dated 12/26/2020; Chest Single View dated 12/25/2020; Chest Single View dated 12/24/2020; Chest Single View dated 11/15/2019; Chest Abd Pelvis Wo Con dated 01/14/2021 FINDINGS: Lines:Right IJ approach dialysis catheter with tip overlying the right brachycephalic vein. Lungs: Pulmonary vascular congestion. Pleural: No significant pleural effusions or pneumothorax. Cardiac: Cardiomegaly. Bones: No acute fractures. Other: None IMPRESSION: Pulmonary vascular congestion. No consolidative airspace disease. EXAM DESCRIPTION: CT - Chest Abd Pelvis Wo Con - 01/14/2021 6:25 am CLINICAL HISTORY: 55 years, Male, Congestion;Abdominal distention;Fever COMPARISON: 11/15/2019 TECHNIQUE: Multiple transaxial tomograms of the chest, abdomen and pelvis were performed from the lung apices to the symphysis pubis 5 mm slice thickness at 5 mm interval reconstruction, without administration of IV and oral contrast. Multiplanar reformats in the sagittal and coronal plane were generated and reviewed. This exam was performed according to our departmental dose-optimization protocol, which includes automated exposure control, adjustment of the mA and/or kV according to patient size and/or use of iterative reconstruction technique. FINDINGS: The lack of IV and oral contrast limits evaluation of solid organs, subtle lesions cannot be excluded. Chest: The lung demonstrate to be clear. There is no evidence for pleural effusions/or pericardial effusions. The trachea mainstem bronchus demonstrate to be unremarkable. There is a right IJ tunnel dialysis catheter. The heart is not enlarged. There are coronary artery calcifications. There is no significant mediastinal or an/or hilar lymphadenopathy. Axillary regions demonstrate to be clear. The bone windows demonstrate no significant skeletal lesions. Abdomen and pelvis: Grossly the unopacified liver, gallbladder, pancreas, spleen and adrenal glands demonstrate to be within normal limits, no significant focal lesions were identified. There is no biliary duct dilatation. The kidneys demonstrate grossly unremarkable. There is no evidence for nephrolithiasis and/or hydronephrosis. Grossly the unopacified stomach, small bowel and large bowel demonstrate to be within normal limits. There is no evidence for bowel dilatation/or free air. The appendix is normal.. The urinary bladder demonstrate to be within normal limits. The prostate gland is unremarkable The aorta demonstrate minimal atherosclerotic disease. There is significant atherosclerotic disease of the branches of the abdominal aorta. There is no retroperitoneal lymphadenopathy. There is no evidence for ascites. The bone windows demonstrate minimal diffuse bony osteopenia. Minimal degenerative disc disease at L4/L5 and L5/S1. IMPRESSION: No evidence for nephrolithiasis and/or hydronephrosis. Minimal diffuse bony osteopenia. Minimal degenerative disc disease at L4/L5 and L5/S1. Coronary artery calcifications. Right IJ tunnel dialysis catheter. Heavy vascular opacification branches of the abdominal aorta. Conclusions/Impression: ESRD Proteinuria -Acute HD today HTN with CKD/ CHF -Hold antihypertensives Diastolic CHF, chronic -Low sodium diet DM II with CKD -RISS Anemia in CKD -Start Retacrit CKD MBD -Start Vitamin D Sepsis Infected Right HD CVC -Follow up cultures -ID following -Plan for CVC exchange -Continue Abx Thank you kindly for the consultation. Case reviewed with Dr. Carey
[2021-01-15 04:14] LABS: Basophils % 0.3 % (0-1.3); Hematocrit 26.4 % (39.6-49.0); Lymphocytes % 7.3 % (15.3-44.8); MPV 8.1 fL (7.6-11.3); RBC Red Blood Cell Count 2.89 M/uL (4.33-5.43)
[2021-01-15 04:40] LABS: Albumin 2.9 g/dL (3.4-5.0); Bilirubin Total 0.4 mg/dL (0.2-1.0); Phosphorus 3.2 mg/dL (2.5-4.9); Potassium 4.4 mmol/L (3.5-5.1); Protein, Total 6.8 g/dL (6.4-8.2)
[2021-01-15] MEDS: ACETAMINOPHEN 500 MG TAB PO PRN (05:25)
--- NOTE | 2021-01-15 06:33 | P.PN ---
Date of Service: 01/15/21 Subjective: Patient feels a little bit better today, still feels "back", no fever overnight No new complaints ROS: 10 point review of systems otherwise negative Physical exam GEN: Alert, oriented HEENT: Normal conjunctiva, sclera anicteric CV: Regular rate and rhythm, 1+ bilateral edema Pulm: Snoring, nonlabored respiration on room air ABD: Soft, nontender, nondistended Integumentary: Slight erythema surrounding right dialysis catheter insertion site, mild right lower extremity erythema Neuro: Normal speech, normal affect Problem list Sepsis without severe sepsis/shock secondary to central line infection, and concurrent UTI Dyspnea secondary to acute on chronic diastolic congestive heart failure/ESRD on HD MWF with volume overload Diabetes mellitus type 2, insulin-dependent Anemia of chronic disease Hypertension Morbid obesity Continue broad-spectrum antibioticscefepime and vancomycin Questionable/mild cellulitis of right lower extremity, does not appear significant of to cause bacteremia, no palpable abscess. Covered by current antibiotics Concern for right dialysis catheter infection. General surgery was consulted on 01/14 for removal, a line holiday, followed by reinsertion Nephrology consulted, ESRD on hemodialysis Anemia appears stable, continue to monitor, of chronic disease. Transfuse if hemoglobin less than 7 Strict glucose control Once clinically improves, will consult physical therapy Code: full Dispo: anticipate dc home in ~2-3 days Time Spent Managing Pts Care (In Minutes): 35
[2021-01-15] MEDS: INSULIN -REGULAR HUMAN 50 UNIT/0.5 ML ML SQ SCH ×4 (07:30→21:03)
[2021-01-15] MEDS: CEFEPIME 1 GM/100 ML BAG IV SCH (08:24)
[2021-01-15] MEDS: CALCITROL 0.25 MCG CAP PO SCH (08:25)
[2021-01-15] MEDS: GABAPENTIN 100 MG CAP PO SCH (08:25)
[2021-01-15] MEDS: ASPIRIN EC 81 MG TAB PO SCH (08:25)
[2021-01-15] MEDS: carvediloL 25 MG TAB PO SCH ×2 (08:26→20:54)
[2021-01-15] MEDS: VITAMIN D 5,000 UNIT CAP PO SCH (08:26)
[2021-01-15] MEDS: DOXAZOSIN 2 MG TAB PO SCH ×2 (08:26→20:55)
[2021-01-15] MEDS: AMLODIPINE 5 MG TAB PO SCH (08:26)
[2021-01-15] MEDS: FLUTICASONE 50MCG NASAL SPRAY NAS SCH ×2 (08:27→20:56)
[2021-01-15] MEDS: HEPARIN 5000 UNIT/ML 1 ML VIAL SQ SCH ×2 (08:34→20:57)
[2021-01-15] MEDS ORDERED: EPOETIN ALFA 10,000 UNIT/ML VIAL SQ SCH (09:00)
[2021-01-15] MEDS ORDERED: VITAMIN D 5,000 UNIT CAP PO SCH (09:00)
[2021-01-15] MEDS ORDERED: CALCITROL 0.25 MCG CAP PO SCH (09:00)
[2021-01-15] MEDS: ARIPiprazole 5 MG TAB PO SCH (09:05)
--- NOTE | 2021-01-15 10:54 | P.PN ---
Subjective Date of Service: 01/15/21 Primary Care Provider: Dr. Karan TOLBERT Chief Complaint: Fever, dyspnea, hyperkalemia Patient seen examined at bedside, denies nausea/vomiting/diarrhea. Review of Systems 10-point ROS is otherwise unremarkable Physical Examination - Vital Signs Temperature: 99.1 F Blood Pressure: 147/68 Pulse: 75 Respirations: 18 Pulse Ox (%): 93 - Studies Laboratory Last Values WBC 11.30 K/uL (4.3-10.9) H D 01/13/21 22:26 RBC 3.45 M/uL (4.33-5.43) L D 01/13/21 22:26 Hgb 10.2 g/dL (13.6-17.9) L 01/13/21 22:26 Hct 31.8 % (39.6-49.0) L D 01/13/21 22:26 MCV 92.1 fL (80-100) 01/13/21 22:26 MCH 29.6 pg (27.0-35.0) 01/13/21 22:26 MCHC 32.2 g/dL (32.0-36.0) 01/13/21 22:26 RDW 15.9 % (12.1-15.2) H 01/13/21 22:26 Plt Count 249 K/uL (152-406) 01/13/21 22:26 MPV 8.2 fL (7.6-11.3) 01/13/21 22:26 Neutrophils % 90.2 % (41.7-73.7) H 01/13/21 22:26 Lymphocytes % 4.7 % (15.3-44.8) L 01/13/21 22:26 Monocytes % 2.8 % (3.3-12.3) L 01/13/21 22:26 Eosinophils % 1.9 % (0-4.4) 01/13/21 22:26 Basophils % 0.4 % (0-1.3) 01/13/21 22:26 Absolute Neutrophils 10.2 K/uL (1.8-8.0) H 01/13/21 22:26 Segmented Neutrophils 83 % (40-80) H 01/13/21 22:26 Band Neutrophils 8 % (0-1) H 01/13/21 22:26 Absolute Lymphocytes 0.5 K/uL (0.7-4.9) L 01/13/21 22: Lymphocytes 5 % (15-42) L 01/13/21 22: Monocytes 1 % (0-10) 01/13/21 22: Absolute Monocytes 0.3 K/uL (0.1-1.3) 01/13/21 22: Eosinophils 2 % (0-3) 01/13/21 22: Absolute Eosinophils 0.2 K/uL (0-0.5) 01/13/21 22: Absolute Basophils 0.0 K/uL (0-0.5) 01/13/21 22: Reactive Lymphocytes 1 % 01/13/21 22: Platelet Estimate Adeq 01/13/21 22: Morphology Comment Not seen (NOT SEEN) 01/13/21 22: PT 12.8 SECONDS (9.5-12.5) H 01/13/21 22: INR 1.11 01/13/21 22:26 Sodium 139 mmol/L (136-145) 01/13/21 22:26 Potassium 5.2 mmol/L (3.5-5.1) H 01/13/21 22:26 Chloride 111 mmol/L (98-107) H 01/13/21 22:26 Carbon Dioxide 22 mmol/L (21-32) 01/13/21 22:26 BUN 35 mg/dL (7-18) H 01/13/21 22:26 Creatinine 5.16 mg/dL (0.55-1.3) H* D 01/13/21 22: Estimated GFR 12 mL/min (=/>90) L 01/13/21 22:26 Glucose 107 mg/dL (74-106) H 01/13/21 22: Lactic Acid 1.1 mmol/L (0.4-2.0) 01/13/21 22: Calcium 8.9 mg/dL (8.5-10.1) 01/13/21 22: Magnesium 1.8 mg/dL (1.8-2.4) D 01/13/21 22: Total Bilirubin 0.3 mg/dL (0.2-1.0) 01/13/21 22: Direct Bilirubin < 0.1 mg/dL (0-0.2) 01/13/21 22:26 AST 10 U/L (15-37) L 01/13/21 22:26 ALT 16 U/L (12-78) 01/13/21 22: Alkaline Phosphatase 113 U/L (45-117) 01/13/21 22:26 Rapid Troponin I < 0.02 ng/mL (0.0-0.045) 01/13/21 22:26 NT-Pro-B Natriuret Pep 1582 pg/mL (<125) H 01/13/21 22: Serum Total Protein 8.1 g/dL (6.4-8.2) 01/13/21 22: Albumin 3.7 g/dL (3.4-5.0) 01/13/21 22: Globulin 4.4 g/dL (2.3-3.5) H 01/13/21 22: Albumin/Globulin Ratio 0.8 (1.1-1.8) L 01/13/21 22: Procalcitonin 0.06 ng/mL (<0.050) H 01/13/21 22:26 SARS-CoV-2 Rap RNA(RT-PCR) Negative (NEGATIVE) 01/13/21 22:26 Microbiology Data (last 24 hrs): 01/13/21 22:20 Blood - Blood Blood Culture Gram Stain - Final 01/13/21 22:20 Blood - Blood Gram Stain - Final 01/13/21 22:26 Blood - Blood Blood Culture Gram Stain - Final 01/13/21 22:26 Blood - Blood Gram Stain - Final Assessment And Plan - Plan Physical Exam: General: Alert, Oriented x3, Obese HEENT: Atraumatic, Normocephalic Neck: Other (Right CVC, francis wound tissue erythematous. Thick drainage noted from site.) Respiratory: Clear to auscultation bilaterally, Normal air movement Cardiovascular: No edema, Regular rate/rhythm, Normal S1 S2 Capillary refill: <2 Seconds Gastrointestinal: Normal bowel sounds, Soft and benign, Non-distended Musculoskeletal: No clubbing, No swelling, No contractures Integumentary: Other (Bilateral lower extremity stasis dermatitis. Right lower extremity erythema. No open wounds.) Conclusions/Impression: Antibiotics: Vancomycin Start: 01/14 stop: -- Cefepime Start: 10/13 Stop:-- Assessment/plan Sepsis likely due to an infected right CVC Patient had a septic presentation on admission with leukocytosis and a T-max of 102.2. Preliminary blood cultures obtained on 01/13 growing gram-positive cocci in clusters. Coagulase positive. Continue broad-spectrum IV antibiotic coverage with vancomycin and cefepime at this time. Patient will need right CVC replaced. Repeat blood cultures ordered on 01/15 pending. Right lower extremity cellulitis Continuing broad-spectrum IV antibiotic coverage Leukocytosis with left shift Continue to monitor WBC trend in fever curve. Procalcitonin 0.06. ESRD on HD Nephrology on case. Continue to monitor CBC and BMP Continue to monitor for signs of infection medical management per primary team Plan of care discussed with Dr. Godfrey Thank you for consultation
--- NOTE | 2021-01-15 19:12 | CON ---
Date of Consultation: 01/15/2021 Reason For Consultation: This is a consult for removal and placement of hemodialysis catheter. History Of Present Illness: Mr. Koenig is a 55-year-old patient with new onset renal failure. Last month, he received placement of hemodialysis catheter. He is doing well since then. Now this month , he felt afebrile. The patient admitted to the hospital and the bacteria was found in his blood and has part of the protocol since the patient has hemodialysis catheter, even though it looks intact an d does not look erythematosus. They might consider removing this catheter and then place another one back in. Past Medical History: Extensive including heart disease, morbidly obese, diabetes, renal failure. Medications, surgeries, allergies, social habits; see my previous consult. Review of Systems: No shortness of breath. No chest pain. He has fever before. He does not feel febrile at this momen t. He has been using the hemodialysis catheter, but he has not had any issues with that. Physical Examination: General: The patient is awake, alert, in no distress. Cooperative, oriented x3. Chest: Bilateral breath sounds. Hemodialysis catheter on the right side, looks intact. No erythema . No discharge. for hemodialysis. Abdomen: Soft and depressible. Laboratory Data: Blood work reviewed. Plan: If the Renal Service believe that catheter has to be removed, then we have to proceed accordin gly. Placement of a new dialysis catheter represent a challenge in him due to the body habitus, so w e are going to wait for the renal evaluation to see if they really want this catheter out. As an alt ernative, if we cannot get in the neck again, he might have to have it in the femoral region or attem pt even a Arnaldo catheter in the meantime. The benefits, alternatives, and risks of a new catheter and removal of the old one, were fully explained to the patient anyway, which include, but not limite d to infection, bleeding, damage to adjacent structures, anesthesia complication, pneumothorax, hemot horax, NC, and even . He also understands this may not relieve any symptoms. He might need mor e than one surgical intervention. He is doing good for the last few weeks. Last month, this was romina burak in. He has no fever, so he understands that even though a new catheter is placed, then in any mo ment they have to be careful with the use of catheter, otherwise any infection in his body may even c olonize our catheter. We will proceed accordingly depends on the Renal Service. Right now, he is cu rrently receiving hemodialysis. KLEVER/JIMMY Voice ID: [id number] Report ID: [id number]
[2021-01-15] MEDS: TRAZODONE 50 MG TABLET PO SCH (20:56)
[2021-01-15] MEDS: ATORVASTATIN 40 MG TAB PO SCH (20:56)
--- NOTE | 2021-01-15 22:25 | P.PN ---
Date of Service: 01/15/21 Vital Signs Temp Pulse Resp BP Pulse Ox 98.6 F 68 19 178/77 H 98 01/15/21 20:00 01/15/21 20:55 01/15/21 20:00 01/15/21 20:55 01/15/21 20:00 Medications Acetaminophen (Acetaminophen 500 Mg Tab) 500 mg PO Q4HP PRN PRN Reason: TEMP > 100' F Last Admin: 01/15/21 05:25 Dose: 500 mg Documented by: Amlodipine Besylate (Amlodipine 5 Mg Tab) 5 mg PO DAILY [facility] Last Admin: 01/15/21 08:26 Dose: 5 mg Documented by: Aripiprazole (Aripiprazole 5 Mg Tab) 20 mg PO DAILY [facility] Last Admin: 01/15/21 09:05 Dose: 20 mg Documented by: Aspirin (Aspirin Ec 81 Mg Tab) 81 mg PO DAILY [facility] Last Admin: 01/15/21 08:25 Dose: 81 mg Documented by: Atorvastatin Calcium (Atorvastatin 40 Mg Tab) 40 mg PO BEDTIME [facility] Last Admin: 01/15/21 20:56 Dose: 40 mg Documented by: Calcitriol (Calcitrol 0.25 Mcg Cap) 0.5 mcg PO DAILY [facility] Last Admin: 01/15/21 08:25 Dose: 0.5 mcg Documented by: Carvedilol (Carvedilol 25 Mg Tab) 25 mg PO BID [facility] Last Admin: 01/15/21 20:54 Dose: 25 mg Documented by: Cholecalciferol (Vitamin D 5,000 Unit Cap) 5,000 unit PO DAILY [facility] Last Admin: 01/15/21 08:26 Dose: 5,000 unit Documented by: Doxazosin Mesylate (Doxazosin 2 Mg Tab) 2 mg PO BID [facility] Last Admin: 01/15/21 20:55 Dose: 2 mg Documented by: Fluticasone Propionate (Fluticasone 50mcg Nasal [place]) 2 sprays ANALILIA BID [facility] Last Admin: 01/15/21 20:56 Dose: 2 spray Documented by: Gabapentin (Gabapentin 100 Mg Cap) 300 mg PO DAILY [facility] Last Admin: 01/15/21 08:25 Dose: 300 mg Documented by: Heparin Sodium (Porcine) (Heparin 5000 Unit/Ml 1 Ml Vial) 5,000 unit SQ Q12HR [facility] Last Admin: 01/15/21 20:57 Dose: 5,000 unit Documented by: Heparin Sodium (Porcine) (Heparin 1,000 Unit/Ml Vial) 6,000 unit IV EVERY HD PRN PRN Reason: AFTER EACH Hydroxyzine HCl (Hydroxyzine Hcl 25 Mg Tab) 50 mg PO Q6HR PRN PRN Reason: ANXIETY Vancomycin HCl (Vancomycin 1 Gm/250 Ml Ns Ivpb) 1 gm in 250 mls @ 166.667 mls/hr IVPB AFTER EACH DIALYSIS [facility]; Protocol Cefepime HCl (Maxipime 1 Gm/100 Ml Ivpb) 1 gm in 100 mls @ 100 mls/hr IV DAILY [facility] Last Admin: 01/15/21 08:24 Dose: 100 mls Documented by: Albumin Human (Albumin 25%) 50 mls @ 100 mls/hr IV EVERY HD [facility] Insulin Human Regular (Insulin -Regular Human 50 Unit/0.5 Ml Ml) 0 unit SQ ACHS [facility]; Protocol Last Admin: 01/15/21 21:03 Dose: 5 unit Documented by: Mannitol (Mannitol 25% 12.5 Gm/50 Ml Vial) 12.5 gm IV EVERY HD PRN PRN Reason: Titrate to SBP (MUST DEFINE) Ondansetron HCl (Ondansetron 4 Mg/2 Ml Vial) 4 mg IV Q6HP PRN PRN Reason: NAUSEA / VOMITING Sodium Chloride (Flush Normal Saline 10 Ml) 10 ml IV BID [facility] Last Admin: 01/15/21 20:56 Dose: 10 ml Documented by: Trazodone HCl (Trazodone 50 Mg Tablet) 100 mg PO BEDTIME [facility] Last Admin: 01/15/21 20:56 Dose: 100 mg Documented by: Microbiology Results 01/13/21 22:20 Blood - Blood Aerobic Blood Culture - Preliminary 01/13/21 22:20 Blood - Blood Blood Culture Gram Stain - Final 01/13/21 22:20 Blood - Blood Anaerobic Blood Culture - Preliminary 01/13/21 22:20 Blood - Blood Gram Stain - Final 01/13/21 22:26 Blood - Blood Aerobic Blood Culture - Preliminary 01/13/21 22:26 Blood - Blood Blood Culture Gram Stain - Final 01/13/21 22:26 Blood - Blood Anaerobic Blood Culture - Preliminary 01/13/21 22:26 Blood - Blood Gram Stain - Final 01/13/21 22:26 Nasopharnyx Influenza Type A Antigen Screen - Final 01/13/21 22:26 Nasopharnyx Influenza Type B Antigen Screen - Final Assessment/ Plan: Nephrology Progress Note Feeling better No chest pain or dyspnea No acute events overnight Vitals, medications blood work and imaging reviewed in the chart General: Oriented x3, Cooperative, Moderate distress HEENT: Atraumatic Neck: Supple Respiratory: Clear to auscultation bilaterally Cardiovascular: Regular rate/rhythm, Edema Gastrointestinal: Soft and benign, Non-distended Musculoskeletal: No clubbing, No contractures Integumentary: No rashes, No cyanosis, Erythema Neurological: Normal speech Laboratory Data (last 24 hrs) 01/13/21 22:26: PT 12.8 H, INR 1.11 01/13/21 22:26: WBC 11.30 H D, Hgb 10.2 L, Hct 31.8 L D, Plt Count 249 01/13/21 22:26: Sodium 139, Potassium 5.2 H, BUN 35 H, Creatinine 5.16 H* D, Glucose 107 H, Magnesium 1.8 D, Total Bilirubin 0.3, AST 10 L, ALT 16, Alkaline Phosphatase 113 Imagings Data: EXAM DESCRIPTION: RAD - Chest Single View - 01/13/2021 10:29 pm CLINICAL HISTORY: DYSPNEA COMPARISON: Chest Single View dated 12/26/2020; Chest Single View dated 12/25/2020; Chest Single View dated 12/24/2020; Chest Single View dated 11/15/2019; Chest Abd Pelvis Wo Con dated 01/14/2021 FINDINGS: Lines:Right IJ approach dialysis catheter with tip overlying the right brachycephalic vein. Lungs: Pulmonary vascular congestion. Pleural: No significant pleural effusions or pneumothorax. Cardiac: Cardiomegaly. Bones: No acute fractures. Other: None IMPRESSION: Pulmonary vascular congestion. No consolidative airspace disease. EXAM DESCRIPTION: CT - Chest Abd Pelvis Wo Con - 01/14/2021 6:25 am CLINICAL HISTORY: 55 years, Male, Congestion;Abdominal distention;Fever COMPARISON: 11/15/2019 TECHNIQUE: Multiple transaxial tomograms of the chest, abdomen and pelvis were performed from the lung apices to the symphysis pubis 5 mm slice thickness at 5 mm interval reconstruction, without administration of IV and oral contrast. Multiplanar reformats in the sagittal and coronal plane were generated and reviewed. This exam was performed according to our departmental dose-optimization protocol, which includes automated exposure control, adjustment of the mA and/or kV according to patient size and/or use of iterative reconstruction technique. FINDINGS: The lack of IV and oral contrast limits evaluation of solid organs, subtle lesions cannot be excluded. Chest: The lung demonstrate to be clear. There is no evidence for pleural effusions/or pericardial effusions. The trachea mainstem bronchus demonstrate to be unremarkable. There is a right IJ tunnel dialysis catheter. The heart is not enlarged. There are coronary artery calcifications. There is no significant mediastinal or an/or hilar lymphadenopathy. Axillary regions demonstrate to be clear. The bone windows demonstrate no significant skeletal lesions. Abdomen and pelvis: Grossly the unopacified liver, gallbladder, pancreas, spleen and adrenal glands demonstrate to be within normal limits, no significant focal lesions were identified. There is no biliary duct dilatation. The kidneys demonstrate grossly unremarkable. There is no evidence for nephrolithiasis and/or hydronephrosis. Grossly the unopacified stomach, small bowel and large bowel demonstrate to be within normal limits. There is no evidence for bowel dilatation/or free air. The appendix is normal.. The urinary bladder demonstrate to be within normal limits. The prostate gland is unremarkable The aorta demonstrate minimal atherosclerotic disease. There is significant atherosclerotic disease of the branches of the abdominal aorta. There is no retroperitoneal lymphadenopathy. There is no evidence for ascites. The bone windows demonstrate minimal diffuse bony osteopenia. Minimal degenerative disc disease at L4/L5 and L5/S1. IMPRESSION: No evidence for nephrolithiasis and/or hydronephrosis. Minimal diffuse bony osteopenia. Minimal degenerative disc disease at L4/L5 and L5/S1. Coronary artery calcifications. Right IJ tunnel dialysis catheter. Heavy vascular opacification branches of the abdominal aorta. Conclusions/Impression: ESRD Proteinuria -Acute HD today -Seen and examined on HD today HTN with CKD/ CHF -Hold antihypertensives Diastolic CHF, chronic -Low sodium diet DM II with CKD -RISS Anemia in CKD -Increase Retacrit TIW CKD MBD -Continue Vitamin D Sepsis Infected Right HD CVC -Follow up cultures -ID following -Plan for CVC exchange; case reviewed with Dr. Arias -Plan for line holiday -Continue Abx
[2021-01-16] MEDS: HYDRALAZINE HCL 20 MG/ML VIAL IV PRN (05:00)
--- NOTE | 2021-01-16 06:29 | P.PN ---
Date of Service: 01/16/21 Subjective: Overall he feels he is doing a little bit better, still very tired, body aches No shortness of breath, no chest pain, no nausea/vomiting ROS: 10 point review of systems otherwise negative Physical exam GEN: Alert, oriented HEENT: Normal conjunctiva, sclera anicteric CV: Regular rate and rhythm, 1+ bilateral edema Pulm: Snoring, nonlabored respiration on room air ABD: Soft, nontender, nondistended Integumentary: Slight erythema surrounding right dialysis catheter insertion site, mild right lower extremity erythema Neuro: Normal speech, normal affect Problem list Sepsis without severe sepsis/shock secondary to central line infection, and concurrent UTI Dyspnea secondary to acute on chronic diastolic congestive heart failure/ESRD on HD MWF with volume overload Diabetes mellitus type 2, insulin-dependent Anemia of chronic disease Hypertension Morbid obesity Continue broad-spectrum antibioticscefepime and vancomycin Questionable/mild cellulitis of right lower extremity, does not appear significant enough to cause bacteremia, no palpable abscess. Covered by current antibiotics Concern for right dialysis catheter infection. General surgery was consulted on 01/14 for removal, a line holiday, followed by reinsertion Patient to have dialysis catheter removed today. Underwent dialysis on 01/15 and to have another session this morning Nephrology consulted, ESRD on hemodialysis Anemia appears stable, continue to monitor, of chronic disease. Transfuse if hemoglobin less than 7 Strict glucose control Once clinically improves, will consult physical therapy Code: full Dispo: anticipate dc home in ~3-4 days Time Spent Managing Pts Care (In Minutes): 35
[2021-01-16] MEDS: INSULIN -REGULAR HUMAN 50 UNIT/0.5 ML ML SQ SCH ×4 (07:30→20:59)
[2021-01-16 08:40] LABS: Absolute Lymphocytes (CBC) 0.9 K/uL (0.7-4.9); Basophils % 0.3 % (0-1.3); Hematocrit 26.1 % (39.6-49.0); Lymphocytes % 9.4 % (15.3-44.8); MPV 8.1 fL (7.6-11.3); RBC Red Blood Cell Count 2.93 M/uL (4.33-5.43)
[2021-01-16] MEDS: DOXAZOSIN 2 MG TAB PO SCH ×2 (09:00→20:45)
[2021-01-16] MEDS: VITAMIN D 5,000 UNIT CAP PO SCH (09:00)
[2021-01-16] MEDS: carvediloL 25 MG TAB PO SCH ×2 (09:00→20:41)
[2021-01-16] MEDS: GABAPENTIN 100 MG CAP PO SCH (09:00)
[2021-01-16] MEDS: HEPARIN 5000 UNIT/ML 1 ML VIAL SQ SCH ×2 (09:00→20:42)
[2021-01-16] MEDS: FLUTICASONE 50MCG NASAL SPRAY NAS SCH ×2 (09:00→20:44)
[2021-01-16] MEDS: AMLODIPINE 5 MG TAB PO SCH (09:00)
[2021-01-16] MEDS: ARIPiprazole 5 MG TAB PO SCH (09:00)
[2021-01-16] MEDS: ASPIRIN EC 81 MG TAB PO SCH (09:00)
[2021-01-16] MEDS: CALCITROL 0.25 MCG CAP PO SCH (09:00)
[2021-01-16 09:07] LABS: Albumin 2.9 g/dL (3.4-5.0); Bilirubin Total 0.4 mg/dL (0.2-1.0); Potassium 3.8 mmol/L (3.5-5.1); Protein, Total 6.8 g/dL (6.4-8.2)
[2021-01-16] MEDS ORDERED: BUPIVACAINE 0.5% PF 10 ML VIAL ONE (10:40)
--- NOTE | 2021-01-16 11:32 | P.PN ---
Subjective Date of Service: 01/16/21 Primary Care Provider: TOMASZ, Dr. Russo Chief Complaint: Fever, dyspnea, hyperkalemia Patient seen examined and during dialysis. Plan to remove the tunneled dialysis catheter today. Review of Systems 10-point ROS is otherwise unremarkable Physical Examination - Vital Signs Temperature: 98 F Blood Pressure: 166/64 Pulse: 70 Respirations: 18 Pulse Ox (%): 91 - Studies Laboratory Last Values WBC 11.30 K/uL (4.3-10.9) H D 01/13/21 22:26 RBC 3.45 M/uL (4.33-5.43) L D 01/13/21 22:26 Hgb 10.2 g/dL (13.6-17.9) L 01/13/21 22:26 Hct 31.8 % (39.6-49.0) L D 01/13/21 22:26 MCV 92.1 fL (80-100) 01/13/21 22:26 MCH 29.6 pg (27.0-35.0) 01/13/21 22:26 MCHC 32.2 g/dL (32.0-36.0) 01/13/21 22:26 RDW 15.9 % (12.1-15.2) H 01/13/21 22:26 Plt Count 249 K/uL (152-406) 01/13/21 22:26 MPV 8.2 fL (7.6-11.3) 01/13/21 22:26 Neutrophils % 90.2 % (41.7-73.7) H 01/13/21 22:26 Lymphocytes % 4.7 % (15.3-44.8) L 01/13/21 22:26 Monocytes % 2.8 % (3.3-12.3) L 01/13/21 22:26 Eosinophils % 1.9 % (0-4.4) 01/13/21 22:26 Basophils % 0.4 % (0-1.3) 01/13/21 22:26 Absolute Neutrophils 10.2 K/uL (1.8-8.0) H 01/13/21 22:26 Segmented Neutrophils 83 % (40-80) H 01/13/21 22:26 Band Neutrophils 8 % (0-1) H 01/13/21 22:26 Absolute Lymphocytes 0.5 K/uL (0.7-4.9) L 01/13/21 22: Lymphocytes 5 % (15-42) L 01/13/21 22: Monocytes 1 % (0-10) 01/13/21 22: Absolute Monocytes 0.3 K/uL (0.1-1.3) 01/13/21 22: Eosinophils 2 % (0-3) 01/13/21 22: Absolute Eosinophils 0.2 K/uL (0-0.5) 01/13/21 22: Absolute Basophils 0.0 K/uL (0-0.5) 01/13/21 22: Reactive Lymphocytes 1 % 01/13/21 22: Platelet Estimate Adeq 01/13/21 22: Morphology Comment Not seen (NOT SEEN) 01/13/21 22: PT 12.8 SECONDS (9.5-12.5) H 01/13/21 22: INR 1.11 01/13/21 22:26 Sodium 139 mmol/L (136-145) 01/13/21 22:26 Potassium 5.2 mmol/L (3.5-5.1) H 01/13/21 22:26 Chloride 111 mmol/L (98-107) H 01/13/21 22:26 Carbon Dioxide 22 mmol/L (21-32) 01/13/21 22:26 BUN 35 mg/dL (7-18) H 01/13/21 22:26 Creatinine 5.16 mg/dL (0.55-1.3) H* D 01/13/21 22:26 Estimated GFR 12 mL/min (=/>90) L 01/13/21 22:26 Glucose 107 mg/dL (74-106) H 01/13/21 22:26 Lactic Acid 1.1 mmol/L (0.4-2.0) 01/13/21 22: Calcium 8.9 mg/dL (8.5-10.1) 01/13/21 22: Magnesium 1.8 mg/dL (1.8-2.4) D 01/13/21 22: Total Bilirubin 0.3 mg/dL (0.2-1.0) 01/13/21 22: Direct Bilirubin < 0.1 mg/dL (0-0.2) 01/13/21 22:26 AST 10 U/L (15-37) L 01/13/21 22:26 ALT 16 U/L (12-78) 01/13/21 22:26 Alkaline Phosphatase 113 U/L (45-117) 01/13/21 22:26 Rapid Troponin I < 0.02 ng/mL (0.0-0.045) 01/13/21 22:26 NT-Pro-B Natriuret Pep 1582 pg/mL (<125) H 01/13/21 22:26 Serum Total Protein 8.1 g/dL (6.4-8.2) 01/13/21 22:26 Albumin 3.7 g/dL (3.4-5.0) 01/13/21 22:26 Globulin 4.4 g/dL (2.3-3.5) H 01/13/21 22:26 Albumin/Globulin Ratio 0.8 (1.1-1.8) L 01/13/21 22:26 Procalcitonin 0.06 ng/mL (<0.050) H 01/13/21 22:26 SARS-CoV-2 Rap RNA(RT-PCR) Negative (NEGATIVE) 01/13/21 22:26 Microbiology Data (last 24 hrs): 01/13/21 22:20 Blood - Blood Aerobic Blood Culture - Final Staph Aureus 01/13/21 22:20 Blood - Blood Blood Culture Gram Stain - Final 01/13/21 22:20 Blood - Blood Anaerobic Blood Culture - Final Staph Aureus 01/13/21 22:20 Blood - Blood Gram Stain - Final 01/13/21 22:26 Blood - Blood Aerobic Blood Culture - Final Staph Aureus 01/13/21 22:26 Blood - Blood Blood Culture Gram Stain - Final 01/13/21 22:26 Blood - Blood Anaerobic Blood Culture - Final Staph Aureus 01/13/21 22:26 Blood - Blood Gram Stain - Final Assessment And Plan - Plan Physical Exam: General: Alert, Oriented x3, Obese HEENT: Atraumatic, Normocephalic Neck: Other (Right CVC, francis wound tissue erythematous. Thick drainage noted from site.) Respiratory: Clear to auscultation bilaterally, Normal air movement Cardiovascular: No edema, Regular rate/rhythm, Normal S1 S2 Capillary refill: <2 Seconds Gastrointestinal: Normal bowel sounds, Soft and benign, Non-distended Musculoskeletal: No clubbing, No swelling, No contractures Integumentary: Other (Bilateral lower extremity stasis dermatitis. Right lower extremity erythema. No open wounds.) Conclusions/Impression: Antibiotics: Rocephin start: 01/16 stop: 02/27 Vancomycin Start: 01/14 stop: 01/16 Cefepime Start: 01/14 Stop: 01/16 Assessment/plan Sepsis likely due to an infected right CVC Patient had a septic presentation on admission with leukocytosis and a T-max of 102.2. Blood cultures obtained on 01/13 growing methicillin-susceptible St aphylococcus aureus resistant to penicillins. Vancomycin and cefepime have been discontinued, Rocephin started. Due to high clinical suspicion for endocarditis will empirically treat for 6 weeks. Source of infection: Infected right tunnel dialysis catheter. Plan to remove catheter today. Repeat blood cultures taken on 01/15 showed no growth at 24 hr. UTI Urinalysis grossly positive with WBC and bacteria, urine culture growing mixed reece. Continue Rocephin. Right lower extremity cellulitis Continue Rocephin Leukocytosis with left shift Continue to monitor WBC trend in fever curve. Procalcitonin 0.06. ESRD on HD Nephrology on case. Continue to monitor CBC and BMP Continue to monitor for signs of infection medical management per primary team Plan of care discussed with Dr. Godfrey Thank you for consultation
[2021-01-16] MEDS ORDERED: NA CHLORIDE 0.9% 500 ML ONE (12:31)
[2021-01-16] MEDS: CEFEPIME 1 GM/100 ML BAG IV SCH (12:45)
--- NOTE | 2021-01-16 13:02 | P.BOP ---
Preoperative diagnosis: ESRD Postoperative diagnosis: same Primary procedure: Removal of tunneled HD catheter Estimated blood loss: <5cc Specimen: tip for culture Findings: intact catheter Anesthesia: MAC Complications: None Transferred to: Recovery Room Condition: Good
[2021-01-16] MEDS ORDERED: MIDAZOLAM HCL 2 MG/2 ML INJ ONE (13:12)
[2021-01-16] MEDS ORDERED: FENTANYL CITR 100 MCG/2 ML ONE (13:12)
[2021-01-16] MEDS: EPOETIN ALFA 10,000 UNIT/ML VIAL SQ SCH (16:52)
[2021-01-16] MEDS ORDERED: EPOETIN 4,000 UNIT/ML VIAL SQ SCH (17:00)
[2021-01-16] MEDS: ACETAMINOPHEN 500 MG TAB PO PRN (20:41)
[2021-01-16] MEDS: TRAZODONE 50 MG TABLET PO SCH (20:41)
[2021-01-16] MEDS: ATORVASTATIN 40 MG TAB PO SCH (20:41)
--- NOTE | 2021-01-16 21:00 | P.PN ---
Date of Service: 01/16/21 Vital Signs Temp Pulse Resp BP Pulse Ox 96.9 F 60 18 138/61 93 01/16/21 16:00 01/16/21 16:00 01/16/21 16:00 01/16/21 16:00 01/16/21 16:00 Medications Acetaminophen (Acetaminophen 500 Mg Tab) 500 mg PO Q4HP PRN PRN Reason: TEMP > 100' F Last Admin: 01/15/21 05:25 Dose: 500 mg Documented by: Amlodipine Besylate (Amlodipine 5 Mg Tab) 5 mg PO DAILY [facility] Last Admin: 01/16/21 09:00 Dose: Not Given Documented by: Aripiprazole (Aripiprazole 5 Mg Tab) 20 mg PO DAILY [facility] Last Admin: 01/16/21 09:00 Dose: Not Given Documented by: Aspirin (Aspirin Ec 81 Mg Tab) 81 mg PO DAILY [facility] Last Admin: 01/16/21 09:00 Dose: Not Given Documented by: Atorvastatin Calcium (Atorvastatin 40 Mg Tab) 40 mg PO BEDTIME [facility] Last Admin: 01/16/21 20:41 Dose: 40 mg Documented by: Calcitriol (Calcitrol 0.25 Mcg Cap) 0.5 mcg PO DAILY [facility] Last Admin: 01/16/21 09:00 Dose: Not Given Documented by: Carvedilol (Carvedilol 25 Mg Tab) 25 mg PO BID [facility] Last Admin: 01/16/21 20:41 Dose: 25 mg Documented by: Cholecalciferol (Vitamin D 5,000 Unit Cap) 5,000 unit PO DAILY [facility] Last Admin: 01/16/21 09:00 Dose: Not Given Documented by: Doxazosin Mesylate (Doxazosin 2 Mg Tab) 2 mg PO BID [facility] Last Admin: 01/16/21 20:45 Dose: 2 mg Documented by: Epoetin Pierce (Epoetin Pierce 10,000 Unit/Ml Vial) 10,000 unit SQ M,W,F [facility] Last Admin: 01/16/21 16:52 Dose: 10,000 unit Documented by: Fluticasone Propionate (Fluticasone 50mcg Nasal [place]) 2 sprays ANALILIA BID [facility] Last Admin: 01/16/21 20:44 Dose: 2 spray Documented by: Gabapentin (Gabapentin 100 Mg Cap) 300 mg PO DAILY [facility] Last Admin: 01/16/21 09:00 Dose: Not Given Documented by: Heparin Sodium (Porcine) (Heparin 5000 Unit/Ml 1 Ml Vial) 5,000 unit SQ Q12HR [facility] Last Admin: 01/16/21 20:42 Dose: 5,000 unit Documented by: Heparin Sodium (Porcine) (Heparin 1,000 Unit/Ml Vial) 6,000 unit IV EVERY HD PRN PRN Reason: AFTER EACH Hydralazine HCl (Hydralazine Hcl 20 Mg/Ml Vial) 10 mg IV Q6HP PRN PRN Reason: Titrate to SBP (MUST DEFINE) Last Admin: 01/16/21 05:00 Dose: 10 mg Documented by: Hydroxyzine HCl (Hydroxyzine Hcl 25 Mg Tab) 50 mg PO Q6HR PRN PRN Reason: ANXIETY Albumin Human (Albumin 25%) 50 mls @ 100 mls/hr IV EVERY HD [facility] Ceftriaxone Sodium 2,000 mg/ (Sodium Chloride) 100 mls @ 200 mls/hr IV DAILY [facility]; Protocol Insulin Human Regular (Insulin -Regular Human 50 Unit/0.5 Ml Ml) 0 unit SQ ACHS [facility]; Protocol Last Admin: 01/16/21 16:51 Dose: 3 unit Documented by: Mannitol (Mannitol 25% 12.5 Gm/50 Ml Vial) 12.5 gm IV EVERY HD PRN PRN Reason: Titrate to SBP (MUST DEFINE) Ondansetron HCl (Ondansetron 4 Mg/2 Ml Vial) 4 mg IV Q6HP PRN PRN Reason: NAUSEA / VOMITING Sodium Chloride (Flush Normal Saline 10 Ml) 10 ml IV BID [facility] Last Admin: 01/16/21 20:42 Dose: 10 ml Documented by: Trazodone HCl (Trazodone 50 Mg Tablet) 100 mg PO BEDTIME [facility] Last Admin: 01/16/21 20:41 Dose: 100 mg Documented by: Microbiology Results 01/13/21 22:20 Blood - Blood Aerobic Blood Culture - Final Staph Aureus 01/13/21 22:20 Blood - Blood Blood Culture Gram Stain - Final 01/13/21 22:20 Blood - Blood Anaerobic Blood Culture - Final Staph Aureus 01/13/21 22:20 Blood - Blood Gram Stain - Final 01/13/21 22:26 Blood - Blood Aerobic Blood Culture - Final Staph Aureus 01/13/21 22:26 Blood - Blood Blood Culture Gram Stain - Final 10/12/21 22:26 Blood - Blood Anaerobic Blood Culture - Final Staph Aureus 01/13/21 22:26 Blood - Blood Gram Stain - Final 01/13/21 22:26 Nasopharnyx Influenza Type A Antigen Screen - Final 01/13/21 22:26 Nasopharnyx Influenza Type B Antigen Screen - Final Assessment/ Plan: Nephrology Progress Note Feeling better No chest pain or dyspnea No acute events overnight Vitals, medications blood work and imaging reviewed in the chart General: Oriented x3, Cooperative, Moderate distress HEENT: Atraumatic Neck: Supple Respiratory: Clear to auscultation bilaterally Cardiovascular: Regular rate/rhythm, Edema Gastrointestinal: Soft and benign, Non-distended Musculoskeletal: No clubbing, No contractures Integumentary: No rashes, No cyanosis, Erythema Neurological: Normal speech Laboratory Data (last 24 hrs) 01/13/21 22:26: PT 12.8 H, INR 1.11 01/13/21 22:26: WBC 11.30 H D, Hgb 10.2 L, Hct 31.8 L D, Plt Count 249 01/13/21 22:26: Sodium 139, Potassium 5.2 H, BUN 35 H, Creatinine 5.16 H* D, Glucose 107 H, Magnesium 1.8 D, Total Bilirubin 0.3, AST 10 L, ALT 16, Alkaline Phosphatase 113 Imagings Data: EXAM DESCRIPTION: RAD - Chest Single View - 01/13/2021 10:29 pm CLINICAL HISTORY: DYSPNEA COMPARISON: Chest Single View dated 12/26/2020; Chest Single View dated 12/25/2020; Chest Single View dated 12/24/2020; Chest Single View dated 11/15/2019; Chest Abd Pelvis Wo Con dated 01/14/2021 FINDINGS: Lines:Right IJ approach dialysis catheter with tip overlying the right brachycephalic vein. Lungs: Pulmonary vascular congestion. Pleural: No significant pleural effusions or pneumothorax. Cardiac: Cardiomegaly. Bones: No acute fractures. Other: None IMPRESSION: Pulmonary vascular congestion. No consolidative airspace disease. EXAM DESCRIPTION: CT - Chest Abd Pelvis Wo Con - 01/14/2021 6:25 am CLINICAL HISTORY: 55 years, Male, Congestion;Abdominal distention;Fever COMPARISON: 11/15/2019 TECHNIQUE: Multiple transaxial tomograms of the chest, abdomen and pelvis were performed from the lung apices to the symphysis pubis 5 mm slice thickness at 5 mm interval reconstruction, without administration of IV and oral contrast. Multiplanar reformats in the sagittal and coronal plane were generated and reviewed. This exam was performed according to our departmental dose-optimization protocol, which includes automated exposure control, adjustment of the mA and/or kV according to patient size and/or use of iterative reconstruction technique. FINDINGS: The lack of IV and oral contrast limits evaluation of solid organs, subtle lesions cannot be excluded. Chest: The lung demonstrate to be clear. There is no evidence for pleural effusions/or pericardial effusions. The trachea mainstem bronchus demonstrate to be unremarkable. There is a right IJ tunnel dialysis catheter. The heart is not enlarged. There are coronary artery calcifications. There is no significant mediastinal or an/or hilar lymphadenopathy. Axillary regions demonstrate to be clear. The bone windows demonstrate no significant skeletal lesions. Abdomen and pelvis: Grossly the unopacified liver, gallbladder, pancreas, spleen and adrenal glands demonstrate to be within normal limits, no significant focal lesions were identified. There is no biliary duct dilatation. The kidneys demonstrate grossly unremarkable. There is no evidence for nephrolithiasis and/or hydronephrosis. Grossly the unopacified stomach, small bowel and large bowel demonstrate to be within normal limits. There is no evidence for bowel dilatation/or free air. The appendix is normal.. The urinary bladder demonstrate to be within normal limits. The prostate gland is unremarkable The aorta demonstrate minimal atherosclerotic disease. There is significant atherosclerotic disease of the branches of the abdominal aorta. There is no retroperitoneal lymphadenopathy. There is no evidence for ascites. The bone windows demonstrate minimal diffuse bony osteopenia. Minimal degenerative disc disease at L4/L5 and L5/S1. IMPRESSION: No evidence for nephrolithiasis and/or hydronephrosis. Minimal diffuse bony osteopenia. Minimal degenerative disc disease at L4/L5 and L5/S1. Coronary artery calcifications. Right IJ tunnel dialysis catheter. Heavy vascular opacification branches of the abdominal aorta. Conclusions/Impression: ESRD Proteinuria -Acute HD today -Plan to remove the CVC today HTN with CKD/ CHF -Hold antihypertensives Diastolic CHF, chronic -Low sodium diet DM II with CKD -RISS Anemia in CKD -Continue Retacrit TIW CKD MBD -Continue Vitamin D Sepsis Infected Right HD CVC -Follow up cultures -ID following -CVC to be removed today -Plan for line holiday -Continue Abx
[2021-01-16] MEDS: HYDROCODONE/APAP 5/325 MG TAB PO PRN (22:10)
--- NOTE | 2021-01-16 23:58 | OP ---
Surgeon: Suleman Arias MD Preoperative Diagnosis: End-stage renal disease. Postoperative Diagnosis: End-stage renal disease. Procedure: Removal of tunneled HemoSplit hemodialysis catheter. Anesthesia: MAC. Complications: None. Indication: This is a case of a 55-year-old patient, had a history of renal failure, receiving hemod ialysis. He had catheter placed about a month ago, last month. He has been doing okay. Within last 48 hours, he developed some fever. As part of the protocol, blood work was done, found to have also bacteremia and as part of the protocol, hemodialysis catheter and any other catheter were asked to b e removed from the patient. We visualized the area. We did not see any evidence of infection in doug t area, but due to the history of MRSA, this catheter may be also colonized, so we proceeded to remov e that. The benefits, alternatives, and risks of removal were fully explained, which included, but n ot limited to, infection, bleeding, damage to adjacent structures, anesthesia complication, PE, CT an d he also understands this may not relieve symptoms, he might need more than one surgical interventio n. Soon, he is going to have to have another catheter placed, but we have to remove catheters from h im at this moment and wait about 48 to 72 hours and then proceed with the catheter again. Procedure In Detail: The patient was brought to the operating room, placed in supine position. Anes thesia was done without complication. The right chest was prepped and draped in usual sterile fashio n. Sutures were removed. We proceeded to relieve the cuff. The catheter was intact. Sent the tip for culture. Put pressure and packed the area with gauze. The patient tolerated procedure well. Th e patient was in Trendelenburg position. The patient was sent to recovery in stable condition. HM/MODL Voice ID: [id number] Report ID: [id number]
[2021-01-17] MEDS: HYDROCODONE/APAP 5/325 MG TAB PO PRN ×3 (05:43→20:12)
[2021-01-17 05:59] LABS: Absolute Lymphocytes (CBC) 1.3 K/uL (0.7-4.9); Basophils % 0.7 % (0-1.3); Hematocrit 27.1 % (39.6-49.0); MPV 8.4 fL (7.6-11.3); RBC Red Blood Cell Count 3.01 M/uL (4.33-5.43)
[2021-01-17 06:18] LABS: Albumin 2.8 g/dL (3.4-5.0); Bilirubin Total 0.3 mg/dL (0.2-1.0); Potassium 3.8 mmol/L (3.5-5.1)
--- NOTE | 2021-01-17 06:18 | P.PN ---
Date of Service: 01/17/21 Subjective: s/p HD and removal of dialysis cath yesterday Overall is feeling better, tolerating diet Breathing better through his nose No new complaints ROS: 10 point review of systems otherwise negative Physical exam GEN: Alert, oriented HEENT: R eye: Normal conjunctiva, sclera anicteric CV: Regular rate and rhythm, 1+ bilateral edema Pulm: Snoring, nonlabored respiration on room air ABD: Soft, nontender, nondistended Integumentary: Surgical dressing in place, c/d/i Neuro: Normal speech, normal affect Problem list Sepsis without severe sepsis/shock secondary to central line infection, and concurrent UTI. Sepsis resolved Dyspnea secondary to acute on chronic diastolic congestive heart failure/ESRD on HD MWF with volume overload Diabetes mellitus type 2, insulin-dependent Anemia of chronic disease Hypertension Morbid obesity Antibiotics deescalated to Rocephin. Cultures growing MSSA, ID consulted Questionable/mild cellulitis of right lower extremity, does not appear significant enough to cause bacteremia, no palpable abscess. Covered by current antibiotics Concern for right dialysis catheter infection. General surgery was consulted on 01/14 for removal, a line holiday, followed by reinsertion Dialysis catheter removed on 01/16 Nephrology consulted, ESRD on hemodialysis Anemia appears stable, continue to monitor, of chronic disease. Transfuse if hemoglobin less than 7 Strict glucose control Consult physical therapy Code: full Dispo: anticipate dc home in ~2-3 days Time Spent Managing Pts Care (In Minutes): 35
[2021-01-17] MEDS: HEPARIN 5000 UNIT/ML 1 ML VIAL SQ SCH ×2 (08:50→20:20)
[2021-01-17] MEDS: carvediloL 25 MG TAB PO SCH ×2 (09:00→20:13)
[2021-01-17] MEDS: DOXAZOSIN 2 MG TAB PO SCH ×2 (09:00→20:12)
[2021-01-17] MEDS: FLUTICASONE 50MCG NASAL SPRAY NAS SCH ×2 (09:00→20:25)
[2021-01-17] MEDS: CALCITROL 0.25 MCG CAP PO SCH (09:16)
[2021-01-17] MEDS: CEFTRIAXONE 2,000 MG in NA CHLORIDE 0.9% 100 ML IV SCH (09:16)
[2021-01-17] MEDS: ARIPiprazole 5 MG TAB PO SCH (09:16)
[2021-01-17] MEDS: HYDRALAZINE HCL 20 MG/ML VIAL IV PRN (09:16)
[2021-01-17] MEDS: GABAPENTIN 100 MG CAP PO SCH (09:17)
[2021-01-17] MEDS: VITAMIN D 5,000 UNIT CAP PO SCH (09:17)
[2021-01-17] MEDS: AMLODIPINE 5 MG TAB PO SCH (09:17)
[2021-01-17] MEDS: ATORVASTATIN 40 MG TAB PO SCH (09:17)
[2021-01-17] MEDS: ASPIRIN EC 81 MG TAB PO SCH (09:18)
[2021-01-17] MEDS: INSULIN -REGULAR HUMAN 50 UNIT/0.5 ML ML SQ SCH ×4 (09:19→20:16)
[2021-01-17] MEDS: TRAZODONE 50 MG TABLET PO SCH (20:12)
[2021-01-17] MEDS: LIDOCAINE 4% PATCH TOP SCH (20:13)
--- NOTE | 2021-01-17 20:50 | P.PN ---
Date of Service: 01/17/21 Vital Signs Temp Pulse Resp BP Pulse Ox 97.2 F 63 15 134/55 L 97 01/17/21 16:00 01/17/21 20:13 01/17/21 20:12 01/17/21 20:13 01/17/21 20:12 Medications Acetaminophen (Acetaminophen 500 Mg Tab) 500 mg PO Q4HP PRN PRN Reason: TEMP > 100' F Last Admin: 01/15/21 05:25 Dose: 500 mg Documented by: Hydrocodone Bitart/Acetaminophen (Hydrocodone/Apap 5/325 Mg Tab) 1 tab PO Q6H PRN PRN Reason: Pain scale 5-7 (Moderate) Last Admin: 01/17/21 20:12 Dose: 1 tab Documented by: Amlodipine Besylate (Amlodipine 5 Mg Tab) 5 mg PO DAILY [facility] Last Admin: 01/17/21 09:17 Dose: 5 mg Documented by: Aripiprazole (Aripiprazole 5 Mg Tab) 20 mg PO DAILY [facility] Last Admin: 01/17/21 09:16 Dose: 20 mg Documented by: Aspirin (Aspirin Ec 81 Mg Tab) 81 mg PO DAILY [facility] Last Admin: 01/17/21 09:18 Dose: 81 mg Documented by: Atorvastatin Calcium (Atorvastatin 40 Mg Tab) 40 mg PO BEDTIME [facility] Last Admin: 01/17/21 09:17 Dose: 40 mg Documented by: Calcitriol (Calcitrol 0.25 Mcg Cap) 0.5 mcg PO DAILY [facility] Last Admin: 01/17/21 09:16 Dose: 0.5 mcg Documented by: Carvedilol (Carvedilol 25 Mg Tab) 25 mg PO BID [facility] Last Admin: 01/17/21 20:13 Dose: 25 mg Documented by: Cholecalciferol (Vitamin D 5,000 Unit Cap) 5,000 unit PO DAILY [facility] Last Admin: 01/17/21 09:17 Dose: 5,000 unit Documented by: Doxazosin Mesylate (Doxazosin 2 Mg Tab) 2 mg PO BID [facility] Last Admin: 01/17/21 20:12 Dose: 2 mg Documented by: Epoetin Pierce (Epoetin Pierce 10,000 Unit/Ml Vial) 10,000 unit SQ M,W,F [facility] Last Admin: 01/16/21 16:52 Dose: 10,000 unit Documented by: Fluticasone Propionate (Fluticasone 50mcg Nasal [place]) 2 sprays ANALILIA BID [facility] Last Admin: 01/17/21 20:25 Dose: 50 spray Documented by: Gabapentin (Gabapentin 100 Mg Cap) 300 mg PO DAILY [facility] Last Admin: 01/17/21 09:17 Dose: 300 mg Documented by: Heparin Sodium (Porcine) (Heparin 5000 Unit/Ml 1 Ml Vial) 5,000 unit SQ Q12HR [facility] Last Admin: 01/17/21 20:20 Dose: 5,000 unit Documented by: Heparin Sodium (Porcine) (Heparin 1,000 Unit/Ml Vial) 6,000 unit IV EVERY HD PRN PRN Reason: AFTER EACH Hydralazine HCl (Hydralazine Hcl 20 Mg/Ml Vial) 10 mg IV Q6HP PRN PRN Reason: Titrate to SBP (MUST DEFINE) Last Admin: 01/17/21 09:16 Dose: 10 mg Documented by: Hydroxyzine HCl (Hydroxyzine Hcl 25 Mg Tab) 50 mg PO Q6HR PRN PRN Reason: ANXIETY Albumin Human (Albumin 25%) 50 mls @ 100 mls/hr IV EVERY HD [facility] Ceftriaxone Sodium 2,000 mg/ (Sodium Chloride) 100 mls @ 200 mls/hr IV DAILY [facility]; Protocol Last Admin: 01/17/21 09:16 Dose: 100 mls Documented by: Insulin Human Regular (Insulin -Regular Human 50 Unit/0.5 Ml Ml) 0 unit SQ ACHS [facility]; Protocol Last Admin: 01/17/21 20:16 Dose: 7 unit Documented by: Lidocaine (Lidocaine 4% Patch) 1 patch TOP BEDTIME [facility] Last Admin: 01/17/21 20:13 Dose: 1 patch Documented by: Mannitol (Mannitol 25% 12.5 Gm/50 Ml Vial) 12.5 gm IV EVERY HD PRN PRN Reason: Titrate to SBP (MUST DEFINE) Ondansetron HCl (Ondansetron 4 Mg/2 Ml Vial) 4 mg IV Q6HP PRN PRN Reason: NAUSEA / VOMITING Sodium Chloride (Flush Normal Saline 10 Ml) 10 ml IV BID [facility] Last Admin: 01/17/21 20:17 Dose: Not Given Documented by: Trazodone HCl (Trazodone 50 Mg Tablet) 100 mg PO BEDTIME [facility] Last Admin: 01/17/21 20:12 Dose: 100 mg Documented by: Microbiology Results 01/13/21 22:20 Blood - Blood Aerobic Blood Culture - Final Staph Aureus 01/13/21 22:20 Blood - Blood Blood Culture Gram Stain - Final 01/13/21 22:20 Blood - Blood Anaerobic Blood Culture - Final Staph Aureus 01/13/21 22:20 Blood - Blood Gram Stain - Final 01/13/21 22:26 Blood - Blood Aerobic Blood Culture - Final Staph Aureus 01/13/21 22:26 Blood - Blood Blood Culture Gram Stain - Final 01/13/21 22:26 Blood - Blood Anaerobic Blood Culture - Final Staph Aureus 01/13/21 22:26 Blood - Blood Gram Stain - Final 01/13/21 22:26 Nasopharnyx Influenza Type A Antigen Screen - Final 01/13/21 22:26 Nasopharnyx Influenza Type B Antigen Screen - Final Assessment/ Plan: Nephrology Progress Note Feeling better No chest pain or dyspnea No acute events overnight Vitals, medications blood work and imaging reviewed in the chart General: Oriented x3, Cooperative, Moderate distress HEENT: Atraumatic Neck: Supple Respiratory: Clear to auscultation bilaterally Cardiovascular: Regular rate/rhythm, Edema Gastrointestinal: Soft and benign, Non-distended Musculoskeletal: No clubbing, No contractures Integumentary: No rashes, No cyanosis, Erythema Neurological: Normal speech Laboratory Data (last 24 hrs) 01/13/21 22:26: PT 12.8 H, INR 1.11 01/13/21 22:26: WBC 11.30 H D, Hgb 10.2 L, Hct 31.8 L D, Plt Count 249 01/13/21 22:26: Sodium 139, Potassium 5.2 H, BUN 35 H, Creatinine 5.16 H* D, Glucose 107 H, Magnesium 1.8 D, Total Bilirubin 0.3, AST 10 L, ALT 16, Alkaline Phosphatase 113 Imagings Data: EXAM DESCRIPTION: RAD - Chest Single View - 01/13/2021 10:29 pm CLINICAL HISTORY: DYSPNEA COMPARISON: Chest Single View dated 12/26/2020; Chest Single View dated 12/25/2020; Chest Single View dated 12/24/2020; Chest Single View dated 11/15/2019; Chest Abd Pelvis Wo Con dated 01/14/2021 FINDINGS: Lines:Right IJ approach dialysis catheter with tip overlying the right brachycephalic vein. Lungs: Pulmonary vascular congestion. Pleural: No significant pleural effusions or pneumothorax. Cardiac: Cardiomegaly. Bones: No acute fractures. Other: None IMPRESSION: Pulmonary vascular congestion. No consolidative airspace disease. EXAM DESCRIPTION: CT - Chest Abd Pelvis Wo Con - 01/14/2021 6:25 am CLINICAL HISTORY: 55 years, Male, Congestion;Abdominal distention;Fever COMPARISON: 11/15/2019 TECHNIQUE: Multiple transaxial tomograms of the chest, abdomen and pelvis were performed from the lung apices to the symphysis pubis 5 mm slice thickness at 5 mm interval reconstruction, without administration of IV and oral contrast. Multiplanar reformats in the sagittal and coronal plane were generated and reviewed. This exam was performed according to our departmental dose-optimization protocol, which includes automated exposure control, adjustment of the mA and/or kV according to patient size and/or use of iterative reconstruction technique. FINDINGS: The lack of IV and oral contrast limits evaluation of solid organs, subtle lesions cannot be excluded. Chest: The lung demonstrate to be clear. There is no evidence for pleural ef fusions/or pericardial effusions. The trachea mainstem bronchus demonstrate to be unremarkable. There is a right IJ tunnel dialysis catheter. The heart is not enlarged. There are coronary artery calcifications. There is no significant mediastinal or an/or hilar lymphadenopathy. Axillary regions demonstrate to be clear. The bone windows demonstrate no significant skeletal lesions. Abdomen and pelvis: Grossly the unopacified liver, gallbladder, pancreas, spleen and adrenal glands demonstrate to be within normal limits, no significant focal lesions were identified. There is no biliary duct dilatation. The kidneys demonstrate grossly unremarkable. There is no evidence for nephrolithiasis and/or hydronephrosis. Grossly the unopacified stomach, small bowel and large bowel demonstrate to be w ithin normal limits. There is no evidence for bowel dilatation/or free air. The appendix is normal.. The urinary bladder demonstrate to be within normal limits. The prostate gland is unremarkable The aorta demonstrate minimal atherosclerotic disease. There is significant atherosclerotic disease of the branches of the abdominal aorta. There is no retroperitoneal lymphadenopathy. There is no evidence for ascites. The bone windows demonstrate minimal diffuse bony osteopenia. Minimal degenerative disc disease at L4/L5 and L5/S1. IMPRESSION: No evidence for nephrolithiasis and/or hydronephrosis. Minimal diffuse bony osteopenia. Minimal degenerative disc disease at L4/L5 and L5/S1. Coronary artery calcifications. Right IJ tunnel dialysis catheter. Heavy vascular opacification branches of the abdominal aorta. Conclusions/Impression: ESRD Proteinuria -Acute HD today -Plan to replace the CVC Tuesday HTN with CKD/ CHF -Hold antihypertensives Diastolic CHF, chronic -Low sodium diet DM II with CKD -RISS Anemia in CKD -Continue Retacrit TIW CKD MBD -Continue Vitamin D Sepsis Infected Right HD CVC -Follow up cultures -ID following -Plan for line holiday -Continue Abx
[2021-01-18] MEDS: hydrOXYzine HCL 25 MG TAB PO PRN ×2 (00:06→20:09)
[2021-01-18 00:17] VITALS: BMI 43.7
--- NOTE | 2021-01-18 05:59 | P.PN ---
Date of Service: 01/18/21 Subjective: Improving, no new complaints, no acute events overnight. Patient did not want to have labs drawn today, he is a hard stick. Lab holiday today Will need to repeat blood cultures ROS: 10 point review of systems otherwise negative Physical exam GEN: Alert, oriented HEENT: R eye: Normal conjunctiva, sclera anicteric CV: Regular rate and rhythm, 1+ bilateral edema Pulm: Snoring, nonlabored respiration on room air ABD: Soft, nontender, nondistended Integumentary: Surgical dressing in place, c/d/i Neuro: Normal speech, normal affect Problem list Sepsis without severe sepsis/shock secondary to central line infection, and concurrent UTI. Sepsis resolved Right central line removed 01/16 Dyspnea secondary to acute on chronic diastolic congestive heart failure/ESRD on HD MWF with volume overload Diabetes mellitus type 2, insulin-dependent Anemia of chronic disease Hypertension Morbid obesity Antibiotics deescalated to Rocephin. Cultures growing MSSA, ID consulted Blood cultures initial and repeat positive for MSSA. Dialysis catheter tip removed on 01/16, tip positive for gram-positive cocci Questionable/mild cellulitis of right lower extremity, does not appear significant enough to cause bacteremia, no palpable abscess. Covered by current antibiotics Dialysis catheter removed on 01/16 Repeat blood cultures 01/18 General surgery following, to have central line line put in tomorrow possibly Anemia appears stable, continue to monitor, of chronic disease. Transfuse if hemoglobin less than 7 Strict glucose control Consult physical therapy Code: full Dispo: anticipate dc home in ~2-3 days Time Spent Managing Pts Care (In Minutes): 35
[2021-01-18] MEDS: HEPARIN 5000 UNIT/ML 1 ML VIAL SQ SCH ×2 (07:27→19:42)
[2021-01-18] MEDS: ARIPiprazole 5 MG TAB PO SCH (08:34)
[2021-01-18] MEDS: DOXAZOSIN 2 MG TAB PO SCH (08:34)
[2021-01-18] MEDS: GABAPENTIN 100 MG CAP PO SCH (08:34)
[2021-01-18] MEDS: AMLODIPINE 5 MG TAB PO SCH (08:35)
[2021-01-18] MEDS: carvediloL 25 MG TAB PO SCH ×2 (08:35→20:09)
[2021-01-18] MEDS: CALCITROL 0.25 MCG CAP PO SCH (08:35)
[2021-01-18] MEDS: ASPIRIN EC 81 MG TAB PO SCH (08:35)
[2021-01-18] MEDS: HYDROCODONE/APAP 5/325 MG TAB PO PRN ×2 (08:36→20:09)
[2021-01-18] MEDS: VITAMIN D 5,000 UNIT CAP PO SCH (08:36)
[2021-01-18] MEDS: CEFTRIAXONE 2,000 MG in NA CHLORIDE 0.9% 100 ML IV SCH (08:38)
[2021-01-18] MEDS: FLUTICASONE 50MCG NASAL SPRAY NAS SCH ×2 (08:38→20:15)
[2021-01-18] MEDS: INSULIN -REGULAR HUMAN 50 UNIT/0.5 ML ML SQ SCH ×4 (08:40→20:10)
--- NOTE | 2021-01-18 17:35 | P.PN ---
Date of Service: 01/18/21 Vital Signs Temp Pulse Resp BP Pulse Ox 96.9 F 61 18 112/61 97 01/18/21 08:00 01/18/21 08:00 01/18/21 08:00 01/18/21 08:00 01/18/21 08:00 Medications Acetaminophen (Acetaminophen 500 Mg Tab) 500 mg PO Q4HP PRN PRN Reason: TEMP > 100' F Last Admin: 01/15/21 05:25 Dose: 500 mg Documented by: Hydrocodone Bitart/Acetaminophen (Hydrocodone/Apap 5/325 Mg Tab) 1 tab PO Q6H PRN PRN Reason: Pain scale 5-7 (Moderate) Last Admin: 01/18/21 08:36 Dose: 1 tab Documented by: Amlodipine Besylate (Amlodipine 5 Mg Tab) 5 mg PO DAILY [facility] Last Admin: 01/18/21 08:35 Dose: 5 mg Documented by: Aripiprazole (Aripiprazole 5 Mg Tab) 20 mg PO DAILY [facility] Last Admin: 01/18/21 08:34 Dose: 20 mg Documented by: Aspirin (Aspirin Ec 81 Mg Tab) 81 mg PO DAILY [facility] Last Admin: 01/18/21 08:35 Dose: 81 mg Documented by: Atorvastatin Calcium (Atorvastatin 40 Mg Tab) 40 mg PO BEDTIME [facility] Last Admin: 01/17/21 09:17 Dose: 40 mg Documented by: Calcitriol (Calcitrol 0.25 Mcg Cap) 0.5 mcg PO DAILY [facility] Last Admin: 01/18/21 08:35 Dose: 0.5 mcg Documented by: Carvedilol (Carvedilol 25 Mg Tab) 25 mg PO BID [facility] Last Admin: 01/18/21 08:35 Dose: 25 mg Documented by: Cholecalciferol (Vitamin D 5,000 Unit Cap) 5,000 unit PO DAILY [facility] Last Admin: 01/18/21 08:36 Dose: 5,000 unit Documented by: Doxazosin Mesylate (Doxazosin 2 Mg Tab) 2 mg PO BID [facility] Last Admin: 01/18/21 08:34 Dose: 2 mg Documented by: Epoetin Pierce (Epoetin Pierce 10,000 Unit/Ml Vial) 10,000 unit SQ M,W,F [facility] Last Admin: 01/16/21 16:52 Dose: 10,000 unit Documented by: Fluticasone Propionate (Fluticasone 50mcg Nasal [place]) 2 sprays ANALILIA BID [facility] Last Admin: 01/18/21 08:38 Dose: 2 spray Documented by: Gabapentin (Gabapentin 100 Mg Cap) 300 mg PO DAILY [facility] Last Admin: 01/18/21 08:34 Dose: 300 mg Documented by: Heparin Sodium (Porcine) (Heparin 5000 Unit/Ml 1 Ml Vial) 5,000 unit SQ Q12HR [facility] Last Admin: 01/18/21 07:27 Dose: 5,000 unit Documented by: Heparin Sodium (Porcine) (Heparin 1,000 Unit/Ml Vial) 6,000 unit IV EVERY HD PRN PRN Reason: AFTER EACH Hydralazine HCl (Hydralazine Hcl 20 Mg/Ml Vial) 10 mg IV Q6HP PRN PRN Reason: Titrate to SBP (MUST DEFINE) Last Admin: 01/17/21 09:16 Dose: 10 mg Documented by: Hydroxyzine HCl (Hydroxyzine Hcl 25 Mg Tab) 50 mg PO Q6HR PRN PRN Reason: ANXIETY Last Admin: 01/18/21 00:06 Dose: 50 mg Documented by: Albumin Human (Albumin 25%) 50 mls @ 100 mls/hr IV EVERY HD [facility] Ceftriaxone Sodium 2,000 mg/ (Sodium Chloride) 100 mls @ 200 mls/hr IV DAILY [facility]; Protocol Last Admin: 01/18/21 08:38 Dose: 100 mls Documented by: Insulin Human Regular (Insulin -Regular Human 50 Unit/0.5 Ml Ml) 0 unit SQ ACHS [facility]; Protocol Last Admin: 01/18/21 11:30 Dose: Not Given Documented by: Lidocaine (Lidocaine 4% Patch) 1 patch TOP BEDTIME [facility] Last Admin: 01/17/21 20:13 Dose: 1 patch Documented by: Mannitol (Mannitol 25% 12.5 Gm/50 Ml Vial) 12.5 gm IV EVERY HD PRN PRN Reason: Titrate to SBP (MUST DEFINE) Ondansetron HCl (Ondansetron 4 Mg/2 Ml Vial) 4 mg IV Q6HP PRN PRN Reason: NAUSEA / VOMITING Sodium Chloride (Flush Normal Saline 10 Ml) 10 ml IV BID [facility] Last Admin: 01/18/21 08:38 Dose: 10 ml Documented by: Trazodone HCl (Trazodone 50 Mg Tablet) 100 mg PO BEDTIME [facility] Last Admin: 01/17/21 20:12 Dose: 100 mg Documented by: Microbiology Results 01/13/21 22:20 Blood - Blood Aerobic Blood Culture - Final Staph Aureus 01/13/21 22:20 Blood - Blood Blood Culture Gram Stain - Final 01/13/21 22:20 Blood - Blood Anaerobic Blood Culture - Final Staph Aureus 01/13/21 22:20 Blood - Blood Gram Stain - Final 01/13/21 22:26 Blood - Blood Aerobic Blood Culture - Final Staph Aureus 01/13/21 22:26 Blood - Blood Blood Culture Gram Stain - Final 01/13/21 22:26 Blood - Blood Anaerobic Blood Culture - Final Staph Aureus 01/13/21 22:26 Blood - Blood Gram Stain - Final 01/13/21 22:26 Nasopharnyx Influenza Type A Antigen Screen - Final 01/13/21 22:26 Nasopharnyx Influenza Type B Antigen Screen - Final Assessment/ Plan: Nephrology Progress Note Feeling better No chest pain or dyspnea No acute events overnight Vitals, medications blood work and imaging reviewed in the chart General: Oriented x3, Cooperative, Moderate distress HEENT: Atraumatic Neck: Supple Respiratory: Clear to auscultation bilaterally Cardiovascular: Regular rate/rhythm, Edema Gastrointestinal: Soft and benign, Non-distended Musculoskeletal: No clubbing, No contractures Integumentary: No rashes, No cyanosis, Erythema Neurological: Normal speech Laboratory Data (last 24 hrs) 01/13/21 22:26: PT 12.8 H, INR 1.11 01/13/21 22:26: WBC 11.30 H D, Hgb 10.2 L, Hct 31.8 L D, Plt Count 249 01/13/21 22:26: Sodium 139, Potassium 5.2 H, BUN 35 H, Creatinine 5.16 H* D, Glucose 107 H, Magnesium 1.8 D, Total Bilirubin 0.3, AST 10 L, ALT 16, Alkaline Phosphatase 113 Imagings Data: EXAM DESCRIPTION: RAD - Chest Single View - 01/13/2021 10:29 pm CLINICAL HISTORY: DYSPNEA COMPARISON: Chest Single View dated 12/26/2020; Chest Single View dated 12/25/2020; Chest Single View dated 12/24/2020; Chest Single View dated 11/15/2019; Chest Abd Pelvis Wo Con dated 01/14/2021 FINDINGS: Lines:Right IJ approach dialysis catheter with tip overlying the right brachycephalic vein. Lungs: Pulmonary vascular congestion. Pleural: No significant pleural effusions or pneumothorax. Cardiac: Cardiomegaly. Bones: No acute fractures. Other: None IMPRESSION: Pulmonary vascular congestion. No consolidative airspace disease. EXAM DESCRIPTION: CT - Chest Abd Pelvis Wo Con - 01/14/2021 6:25 am CLINICAL HISTORY: 55 years, Male, Congestion;Abdominal distention;Fever COMPARISON: 11/15/2019 TECHNIQUE: Multiple transaxial tomograms of the chest, abdomen and pelvis were performed from the lung apices to the symphysis pubis 5 mm slice thickness at 5 mm interval reconstruction, without administration of IV and oral contrast. Multiplanar reformats in the sagittal and coronal plane were generated and reviewed. This exam was performed according to our departmental dose-optimization protocol, which includes automated exposure control, adjustment of the mA and/or kV according to patient size and/or use of iterative reconstruction technique. FINDINGS: The lack of IV and oral contrast limits evaluation of solid organs, subtle lesions cannot be excluded. Chest: The lung demonstrate to be clear. There is no evidence for pleural effusions/or pericardial effusions. The trachea mainstem bronchus demonstrate to be unremarkable. There is a right IJ tunnel dialysis catheter. The heart is not enlarged. There are coronary artery calcifications. There is no significant mediastinal or an/or hilar lymphadenopathy. Axillary regions demonstrate to be clear. The bone windows demonstrate no significant skeletal lesions. Abdomen and pelvis: Grossly the unopacified liver, gallbladder, pancreas, spleen and adrenal glands demonstrate to be within normal limits, no significant focal lesions were identified. There is no biliary duct dilatation. The kidneys demonstrate grossly unremarkable. There is no evidence for nephrolithiasis and/or hydronephrosis. Grossly the unopacified stomach, small bowel and large bowel demonstrate to be within normal limits. There is no evidence for bowel dilatation/or free air. The appendix is normal.. The urinary bladder demonstrate to be within normal limits. The prostate gland is unremarkable The aorta demonstrate minimal atherosclerotic disease. There is significant atherosclerotic disease of the branches of the abdominal aorta. There is no retroperitoneal lymphadenopathy. There is no evidence for ascites. The bone windows demonstrate minimal diffuse bony osteopenia. Minimal degenerative disc disease at L4/L5 and L5/S1. IMPRESSION: No evidence for nephrolithiasis and/or hydronephrosis. Minimal diffuse bony osteopenia. Minimal degenerative disc disease at L4/L5 and L5/S1. Coronary artery calcifications. Right IJ tunnel dialysis catheter. Heavy vascular opacification branches of the abdominal aorta. Conclusions/Impression: ESRD Proteinuria -HD TIW -Next HD Tuesday -Plan to replace the CVC Tuesday HTN with CKD/ CHF -Hold antihypertensives Diastolic CHF, chronic -Low sodium diet DM II with CKD -RISS Anemia in CKD -Continue Retacrit TIW CKD MBD -Continue Vitamin D Sepsis Infected Right HD CVC -ID following -Line holiday -Continue Abx
[2021-01-18] MEDS: ATORVASTATIN 40 MG TAB PO SCH (20:09)
[2021-01-18] MEDS: LIDOCAINE 4% PATCH TOP SCH ×2 (20:10→21:00)
[2021-01-18] MEDS: TRAZODONE 50 MG TABLET PO SCH (20:10)
[2021-01-19 06:11] LABS: Absolute Lymphocytes (CBC) 1.4 K/uL (0.7-4.9); Basophils % 0.9 % (0-1.3); Lymphocytes % 17.1 % (15.3-44.8); MPV 8.6 fL (7.6-11.3); RBC Red Blood Cell Count 2.98 M/uL (4.33-5.43)
--- NOTE | 2021-01-19 06:22 | P.PN ---
Date of Service: 01/19/21 Subjective: no new complaints, doing ok afebrile ROS: 10 point review of systems otherwise negative Physical exam GEN: Alert, oriented HEENT: R eye: Normal conjunctiva, sclera anicteric CV: Regular rate and rhythm, 1+ bilateral edema Pulm: nonlabored respirations on 2L NC ABD: Soft, nontender, nondistended Integumentary: no rashes Neuro: Normal speech, normal affect Problem list Sepsis without severe sepsis/shock secondary to central line infection, and concurrent UTI. Sepsis resolved Right central line removed 01/16 Dyspnea secondary to acute on chronic diastolic congestive heart failure/ESRD on HD MWF with volume overload Diabetes mellitus type 2, insulin-dependent Anemia of chronic disease Hypertension Morbid obesity Antibiotics deescalated to Rocephin. Cultures growing MSSA, ID consulted Blood cultures initial and repeat positive for MSSA. Dialysis catheter tip removed on 01/16, tip positive for MSSA as well Questionable/mild cellulitis of right lower extremity, does not appear significant enough to cause bacteremia, no palpable abscess. Covered by current antibiotics Dialysis catheter removed on 01/16 Repeat blood culture 01/18 - lab has not received general surgery to place dialysis cath once repeat blood cultures are negative, currently planned for tomorrow Anemia appears stable, continue to monitor, of chronic disease. Transfuse if hemoglobin less than 7 Strict glucose control PT Code: full Dispo: anticipate dc home in ~2-3 days Time Spent Managing Pts Care (In Minutes): 35
[2021-01-19 06:35] LABS: ALT/SGPT 25 U/L (12-78); Albumin 2.7 g/dL (3.4-5.0); Alkaline Phosphatase 123 U/L (45-117); BUN Blood Urea Nitrogen 42 mg/dL (7-18); Bicarbonate 26 mmol/L (21-32); Bilirubin Direct < 0.1 mg/dL (0-0.2); Bilirubin Total 0.2 mg/dL (0.2-1.0); Glucose Level 321 mg/dL (74-106); Phosphorus 5.4 mg/dL (2.5-4.9); Protein, Total 6.7 g/dL (6.4-8.2); Sodium Level 139 mmol/L (136-145)
[2021-01-19 06:47] LABS: AST/SGOT 17 U/L (15-37); Magnesium 2.2 mg/dL (1.8-2.4); Potassium 4.4 mmol/L (3.5-5.1)
--- NOTE | 2021-01-19 07:17 | ECHO ---
HEIGHT: 5 ft 10 in WEIGHT: 305 lb 3.2 oz DATE OF STUDY: 01/16/[address]: Dean Carey MD 2-DIMENSIONAL: YES M.MODE: YES DOPPLER: YES COLOR FLOW: YES TDS: YES PORTABLE: NO DEFINITY: NO BUBBLE STUDY: NO DIAGNOSIS: CHEST PAIN CARDIAC HISTORY: CATHERIZATION: NO SURGERY: NO PROSTHETIC VALVE: NO PACEMAKER: NO MEASUREMENTS (cm) DIASTOLIC (NORMALS) SYSTOLIC (NORMALS) IVSd 1.4 (0.6-1.2) LA Diam 3.4 (1.9-4.0) LVEF 61% LVIDd 4.5 (3.5-5.7) LVIDs 3.1 (2.0-3.5) %FS 32% LVPWd 1.4 (0.6-1.2) Ao Diam 2.8 (2.0-3.7) 2 DIMENSIONAL ASSESSMENT: RIGHT ATRIUM: NORMAL LEFT ATRIUM: NORMAL RIGHT VENTRICLE: NORMAL LEFT VENTRICLE: LEFT VENTRICULAR HYPERTROPHY TRICUSPID VALVE: NORMAL MITRAL VALVE: NORMAL PULMONIC VALVE: NORMAL AORTIC VALVE: NORMAL PERICARDIAL EFFUSION: NONE AORTIC ROOT: NORMAL LEFT VENTRICULAR WALL MOTION: NORMAL DOPPLER/COLOR FLOW: MILD TRICUSPID REGURGITATION. NORMAL RIGHT VENTRICULAR SYSTOLIC PRESSURE. COMMENTS: MILD TRICUSPID REGURGITATION. NORMAL RIGHT VENTRICULAR SYSTOLIC PRESSURE. NO WALL MOTION ABNORMALITY. LEFT VENTRICULAR HYPERTROPHY. NORMAL LEFT VENTRICULAR FUNCTION, EJECTION FRACTION 61%. TECHNOLOGIST: Jane MOLINA
[2021-01-19] MEDS: HEPARIN 5000 UNIT/ML 1 ML VIAL SQ SCH ×3 (07:33→20:57)
[2021-01-19] MEDS: FLUTICASONE 50MCG NASAL SPRAY NAS SCH ×2 (09:00→20:57)
[2021-01-19] MEDS: DOXAZOSIN 2 MG TAB PO SCH ×2 (09:00→20:53)
[2021-01-19] MEDS: INSULIN -REGULAR HUMAN 50 UNIT/0.5 ML ML SQ SCH ×4 (09:26→20:57)
[2021-01-19] MEDS: CEFTRIAXONE 2,000 MG in NA CHLORIDE 0.9% 100 ML IV SCH (09:31)
--- NOTE | 2021-01-19 11:14 | P.PN ---
Subjective Date of Service: 01/19/21 Primary Care Provider: Dr. Karan TOLBERT Chief Complaint: Fever, dyspnea, hyperkalemia Patient seen examined at bedside. Repeat blood cultures taken on 01/15 still growing methicillin-susceptible Staphylococcus aureus. Rocephin Dc, Cephazolin started. Repeat blood cultures obtained on 01/18 pending, await negative blood culture report prior to placing a dialysis catheter. Review of Systems 10-point ROS is otherwise unremarkable Physical Examination - Vital Signs Temperature: 98.0 F Blood Pressure: 148/72 Pulse: 56 Respirations: 16 Pulse Ox (%): 99 - Studies Laboratory Last Values WBC 11.30 K/uL (4.3-10.9) H D 01/13/21 22:26 RBC 3.45 M/uL (4.33-5.43) L D 01/13/21 22:26 Hgb 10.2 g/dL (13.6-17.9) L 01/13/21 22:26 Hct 31.8 % (39.6-49.0) L D 01/13/21 22:26 MCV 92.1 fL (80-100) 01/13/21 22:26 MCH 29.6 pg (27.0-35.0) 01/13/21 22:26 MCHC 32.2 g/dL (32.0-36.0) 01/13/21 22:26 RDW 15.9 % (12.1-15.2) H 01/13/21 22:26 Plt Count 249 K/uL (152-406) 01/13/21 22:26 MPV 8.2 fL (7.6-11.3) 01/13/21 22:26 Neutrophils % 90.2 % (41.7-73.7) H 01/13/21 22:26 Lymphocytes % 4.7 % (15.3-44.8) L 01/13/21: Monocytes % 2.8 % (3.3-12.3) L 01/13/21 22:26 Eosinophils % 1.9 % (0-4.4) 01/13/21: Basophils % 0.4 % (0-1.3) 01/13/21 22:26 Absolute Neutrophils 10.2 K/uL (1.8-8.0) H 01/13/21 22:26 Segmented Neutrophils 83 % (40-80) H 01/13/21 22: Band Neutrophils 8 % (0-1) H 01/13/21 22: Absolute Lymphocytes 0.5 K/uL (0.7-4.9) L 01/13/21 22: Lymphocytes 5 % (15-42) L 01/13/21 22: Monocytes 1 % (0-10) 01/13/21 22: Absolute Monocytes 0.3 K/uL (0.1-1.3) 01/13/21 22: Eosinophils 2 % (0-3) 01/13/21 22: Absolute Eosinophils 0.2 K/uL (0-0.5) 01/13/21: Absolute Basophils 0.0 K/uL (0-0.5) 01/13/21 22: Reactive Lymphocytes 1 % 01/13/21 22: Platelet Estimate Adeq 01/13/21 22: Morphology Comment Not seen (NOT SEEN) 01/13/21 22: PT 12.8 SECONDS (9.5-12.5) H 01/13/21 22:26 INR 1.11 01/13/21 22:26 Sodium 139 mmol/L (136-145) 01/13/21 22:26 Potassium 5.2 mmol/L (3.5-5.1) H 01/13/21 22:26 Chloride 111 mmol/L (98-107) H 01/13/21 22:26 Carbon Dioxide 22 mmol/L (21-32) 01/13/21 22:26 BUN 35 mg/dL (7-18) H 01/13/21 22:26 Creatinine 5.16 mg/dL (0.55-1.3) H* D 01/13/21 22:26 Estimated GFR 12 mL/min (=/>90) L 01/13/21 22: Glucose 107 mg/dL (74-106) H 01/13/21 22: Lactic Acid 1.1 mmol/L (0.4-2.0) 01/13/21 22: Calcium 8.9 mg/dL (8.5-10.1) 01/13/21 22: Magnesium 1.8 mg/dL (1.8-2.4) D 01/13/21 22:26 Total Bilirubin 0.3 mg/dL (0.2-1.0) 01/13/21 22: Direct Bilirubin < 0.1 mg/dL (0-0.2) 01/13/21 22: AST 10 U/L (15-37) L 01/13/21 22: ALT 16 U/L (12-78) 01/13/21 22: Alkaline Phosphatase 113 U/L (45-117) 01/13/21 22: Rapid Troponin I < 0.02 ng/mL (0.0-0.045) 01/13/21 22: NT-Pro-B Natriuret Pep 1582 pg/mL (<125) H 01/13/21: Serum Total Protein 8.1 g/dL (6.4-8.2) 01/13/21 22: Albumin 3.7 g/dL (3.4-5.0) 01/13/21: Globulin 4.4 g/dL (2.3-3.5) H 01/13/21: Albumin/Globulin Ratio 0.8 (1.1-1.8) L 01/13/21 22: Procalcitonin 0.06 ng/mL (<0.050) H 01/13/21: SARS-CoV-2 Rap RNA(RT-PCR) Negative (NEGATIVE) 01/13/21 22:26 Assessment And Plan - Plan Physical Exam: General: Alert, Oriented x3, Obese HEENT: Atraumatic, Normocephalic Neck: Other (Right CVC, francis wound tissue erythematous. Thick drainage noted from site.) Respiratory: Clear to auscultation bilaterally, Normal air movement Cardiovascular: No edema, Regular rate/rhythm, Normal S1 S2 Capillary refill: <2 Seconds Gastrointestinal: Normal bowel sounds, Soft and benign, Non-distended Musculoskeletal: No clubbing, No swelling, No contractures Integumentary: Other (Bilateral lower extremity stasis dermatitis. Right lower extremity erythema. No open wounds.) Conclusions/Impression: Antibiotics: cefazolin start: 01/16 Rocephin start: 01/16 stop: 01/19 Vancomycin Start: 01/14 stop: 01/16 Cefepime Start: 01/14 Stop: 01/16 Assessment/plan Sepsis likely due to an infected right CVC Patient had a septic presentation on admission with leukocytosis and a T-max of 102.2. Blood cultures obtained on 01/13 growing methicillin-susceptible Staphylococcus aureus resistant to penicillins. Vancomycin and cefepime have been discontinued, Rocephin started. Due to high clinical suspicion for endocarditis will empirically treat for 6 weeks. Source of infection: Infected right tunnel dialysis catheter. Catheter removed on 01/16, source of infection controlled. Repeat blood cultures taken on 01/15 growing methicillin- susceptible Staphylococcus aureus. Rocephin discontinued cefazolin started. Repeat cultures taken on 01/18 pending, await negative blood culture report prior to placing new dialysis catheter. UTI Urinalysis grossly positive with WBC and bacteria, urine culture growing mixed reece. Continue Rocephin. Right lower extremity cellulitis Continue Rocephin Leukocytosis with left shift Continue to monitor WBC trend in fever curve. Procalcitonin 0.06. ESRD on HD Nephrology on case. Renally dose all antibiotics. Continue to monitor CBC and BMP Continue to monitor for signs of infection medical management per primary team Plan of care discussed with Dr. Godfrey Thank you for consultation
--- NOTE | 2021-01-19 12:06 | PN ---
Date of Progress Note: 01/19/2021 We were ready today to place another hemodialysis catheter. The previous one was removed last Tuesday for a bacteremia protocol. Today, the patient was seen by the primary doctor, Infectious Disease. I discussed the case with one of them and they believe we should hold even one more day if possible l onger than that, but that will depend on Renal Service to allow enough time between the removal and i nsertion of another catheter. I agree with that the primary doctor once again agreed with that plan. The surgery was canceled today. We rescheduled tomorrow depending on the primary doctor , Infectious Disease and Renal Service evaluation of the patient and we will proceed then based . KLEVER/JIMMY Voice ID: [id number] Report ID: [id number]
[2021-01-19] MEDS: CALCITROL 0.25 MCG CAP PO SCH (13:05)
[2021-01-19] MEDS: GABAPENTIN 100 MG CAP PO SCH (13:05)
[2021-01-19] MEDS: VITAMIN D 5,000 UNIT CAP PO SCH (13:06)
[2021-01-19] MEDS: ARIPiprazole 5 MG TAB PO SCH (13:06)
[2021-01-19] MEDS: carvediloL 25 MG TAB PO SCH ×2 (13:06→20:54)
[2021-01-19] MEDS: ASPIRIN EC 81 MG TAB PO SCH (13:07)
[2021-01-19 13:09] LABS: Blood Morphology Comment NOT SEEN (NOT SEEN); Platelet Estimate ADEQ
[2021-01-19] MEDS: HYDROCODONE/APAP 5/325 MG TAB PO PRN ×2 (13:13→20:54)
[2021-01-19] MEDS: EPOETIN ALFA 10,000 UNIT/ML VIAL SQ SCH (18:25)
--- NOTE | 2021-01-19 20:30 | P.PN ---
Date of Service: 01/19/21 Vital Signs Temp Pulse Resp BP Pulse Ox 97.3 F 53 19 187/77 H 98 01/19/21 20:00 01/19/21 20:00 01/19/21 20:00 01/19/21 20:00 01/19/21 20:00 Medications Acetaminophen (Acetaminophen 500 Mg Tab) 500 mg PO Q4HP PRN PRN Reason: TEMP > 100' F Last Admin: 01/15/21 05:25 Dose: 500 mg Documented by: Hydrocodone Bitart/Acetaminophen (Hydrocodone/Apap 5/325 Mg Tab) 1 tab PO Q6H PRN PRN Reason: Pain scale 5-7 (Moderate) Last Admin: 01/19/21 13:13 Dose: 1 tab Documented by: Aripiprazole (Aripiprazole 5 Mg Tab) 20 mg PO DAILY [facility] Last Admin: 01/19/21 13:06 Dose: 20 mg Documented by: Aspirin (Aspirin Ec 81 Mg Tab) 81 mg PO DAILY [facility] Last Admin: 01/19/21 13:07 Dose: 81 mg Documented by: Atorvastatin Calcium (Atorvastatin 40 Mg Tab) 40 mg PO BEDTIME [facility] Last Admin: 01/18/21 20:09 Dose: 40 mg Documented by: Calcitriol (Calcitrol 0.25 Mcg Cap) 0.5 mcg PO DAILY [facility] Last Admin: 01/19/21 13:05 Dose: 0.5 mcg Documented by: Carvedilol (Carvedilol 25 Mg Tab) 25 mg PO BID [facility] Last Admin: 01/19/21 13:06 Dose: 25 mg Documented by: Cholecalciferol (Vitamin D 5,000 Unit Cap) 5,000 unit PO DAILY [facility] Last Admin: 01/19/21 13:06 Dose: 5,000 unit Documented by: Doxazosin Mesylate (Doxazosin 2 Mg Tab) 2 mg PO BID [facility] Last Admin: 01/19/21 09:00 Dose: 2 mg Documented by: Epoetin Pierce (Epoetin Pierce 10,000 Unit/Ml Vial) 10,000 unit SQ M,W,F [facility] Last Admin: 01/19/21 18:25 Dose: 10,000 unit Documented by: Fluticasone Propionate (Fluticasone 50mcg Nasal [place]) 2 sprays ANALILIA BID [facility] Last Admin: 01/19/21 09:00 Dose: 2 spray Documented by: Gabapentin (Gabapentin 100 Mg Cap) 300 mg PO DAILY [facility] Last Admin: 01/19/21 13:05 Dose: 300 mg Documented by: Heparin Sodium (Porcine) (Heparin 5000 Unit/Ml 1 Ml Vial) 5,000 unit SQ Q12HR [facility] Last Admin: 01/19/21 09:00 Dose: Not Given Documented by: Heparin Sodium (Porcine) (Heparin 1,000 Unit/Ml Vial) 6,000 unit IV EVERY HD PRN PRN Reason: AFTER EACH Hydralazine HCl (Hydralazine Hcl 20 Mg/Ml Vial) 10 mg IV Q6HP PRN PRN Reason: Titrate to SBP (MUST DEFINE) Last Admin: 01/17/21 09:16 Dose: 10 mg Documented by: Hydroxyzine HCl (Hydroxyzine Hcl 25 Mg Tab) 50 mg PO Q6HR PRN PRN Reason: ANXIETY Last Admin: 01/18/21 20:09 Dose: 50 mg Documented by: Albumin Human (Albumin 25%) 50 mls @ 100 mls/hr IV EVERY HD [facility] Cefazolin Sodium (Ancef 1 Gm/50 Ml Ns Ivpb) 1 gm in 50 mls @ 100 mls/hr IVPB DAILY [facility]; Protocol Insulin Human Regular (Insulin -Regular Human 50 Unit/0.5 Ml Ml) 0 unit SQ ACHS [facility]; Protocol Last Admin: 01/19/21 18:16 Dose: 7 unit Documented by: Lidocaine (Lidocaine 4% Patch) 1 patch TOP BEDTIME [facility] Last Admin: 01/18/21 21:00 Dose: Not Given Documented by: Mannitol (Mannitol 25% 12.5 Gm/50 Ml Vial) 12.5 gm IV EVERY HD PRN PRN Reason: Titrate to SBP (MUST DEFINE) Ondansetron HCl (Ondansetron 4 Mg/2 Ml Vial) 4 mg IV Q6HP PRN PRN Reason: NAUSEA / VOMITING Sodium Chloride (Flush Normal Saline 10 Ml) 10 ml IV BID [facility] Last Admin: 01/19/21 09:00 Dose: 10 ml Documented by: Trazodone HCl (Trazodone 50 Mg Tablet) 100 mg PO BEDTIME [facility] Last Admin: 01/18/21 20:10 Dose: 100 mg Documented by: Microbiology Results 01/13/21 22:20 Blood - Blood Aerobic Blood Culture - Final Staph Aureus 01/13/21 22:20 Blood - Blood Blood Culture Gram Stain - Final 01/13/21 22:20 Blood - Blood Anaerobic Blood Culture - Final Staph Aureus 01/13/21 22:20 Blood - Blood Gram Stain - Final 01/13/21 22:26 Blood - Blood Aerobic Blood Culture - Final Staph Aureus 01/13/21 22:26 Blood - Blood Blood Culture Gram Stain - Final 01/13/21 22:26 Blood - Blood Anaerobic Blood Culture - Final Staph Aureus 01/13/21 22:26 Blood - Blood Gram Stain - Final 01/13/21 22:26 Nasopharnyx Influenza Type A Antigen Screen - Final 01/13/21 22:26 Nasopharnyx Influenza Type B Antigen Screen - Final Assessment/ Plan: Nephrology Progress Note Doing well. No chest pain or dyspnea No acute events overnight Vitals, medications blood work and imaging reviewed in the chart General: Oriented x3, Cooperative, Moderate distress HEENT: Atraumatic Neck: Supple Respiratory: Clear to auscultation bilaterally Cardiovascular: Regular rate/rhythm, Edema Gastrointestinal: Soft and benign, Non-distended Musculoskeletal: No clubbing, No contractures Integumentary: No rashes, No cyanosis, Erythema Neurological: Normal speech Laboratory Data (last 24 hrs) 01/13/21 22:26: PT 12.8 H, INR 1.11 01/13/21 22:26: WBC 11.30 H D, Hgb 10.2 L, Hct 31.8 L D, Plt Count 249 01/13/21 22:26: Sodium 139, Potassium 5.2 H, BUN 35 H, Creatinine 5.16 H* D, Glucose 107 H, Magnesium 1.8 D, Total Bilirubin 0.3, AST 10 L, ALT 16, Alkaline Phosphatase 113 Imagings Data: EXAM DESCRIPTION: RAD - Chest Single View - 01/13/2021 10:29 pm CLINICAL HISTORY: DYSPNEA COMPARISON: Chest Single View dated 12/26/2020; Chest Single View dated 12/25/2020; Chest Single View dated 12/24/2020; Chest Single View dated 11/15/2019; Chest Abd Pelvis Wo Con dated 01/14/2021 FINDINGS: Lines:Right IJ approach dialysis catheter with tip overlying the right brachycephalic vein. Lungs: Pulmonary vascular congestion. Pleural: No significant pleural effusions or pneumothorax. Cardiac: Cardiomegaly. Bones: No acute fractures. Other: None IMPRESSION: Pulmonary vascular congestion. No consolidative airspace disease. EXAM DESCRIPTION: CT - Chest Abd Pelvis Wo Con - 01/14/2021 6:25 am CLINICAL HISTORY: 55 years, Male, Congestion;Abdominal distention;Fever COMPARISON: 11/15/2019 TECHNIQUE: Multiple transaxial tomograms of the chest, abdomen and pelvis were performed from the lung apices to the symphysis pubis 5 mm slice thickness at 5 mm interval reconstruction, without administration of IV and oral contrast. Multiplanar reformats in the sagittal and coronal plane were generated and reviewed. This exam was performed according to our departmental dose-optimization protocol, which includes automated exposure control, adjustment of the mA and/or kV according to patient size and/or use of iterative reconstruction technique. FINDINGS: The lack of IV and oral contrast limits evaluation of solid organs, subtle lesions cannot be excluded. Chest: The lung demonstrate to be clear. There is no evidence for pleural effusions/or pericardial effusions. The trachea mainstem bronchus demonstrate to be unremarkable. There is a right IJ tunnel dialysis catheter. The heart is not enlarged. There are coronary artery calcifications. There is no significant mediastinal or an/or hilar lymphadenopathy. Axillary regions demonstrate to be clear. The bone windows demonstrate no significant skeletal lesions. Abdomen and pelvis: Grossly the unopacified liver, gallbladder, pancreas, spleen and adrenal glands demonstrate to be within normal limits, no significant focal lesions were identified. There is no biliary duct dilatation. The kidneys demonstrate grossly unremarkable. There is no evidence for nephrolithiasis and/or hydronephrosis. Grossly the unopacified stomach, small bowel and large bowel demonstrate to be within normal limits. There is no evidence for bowel dilatation/or free air. The appendix is normal.. The urinary bladder demonstrate to be within normal limits. The prostate gland is unremarkable The aorta demonstrate minimal atherosclerotic disease. There is significant atherosclerotic disease of the branches of the abdominal aorta. There is no retroperitoneal lymphadenopathy. There is no evidence for ascites. The bone windows demonstrate minimal diffuse bony osteopenia. Minimal degenerative disc disease at L4/L5 and L5/S1. IMPRESSION: No evidence for nephrolithiasis and/or hydronephrosis. Minimal diffuse bony osteopenia. Minimal degenerative disc disease at L4/L5 and L5/S1. Coronary artery calcifications. Right IJ tunnel dialysis catheter. Heavy vascular opacification branches of the abdominal aorta. Conclusions/Impression: ESRD Proteinuria -HD TIW -Next HD Tuesday -Plan to replace the CVC Tuesday HTN with CKD/ CHF -Hold antihypertensives Diastolic CHF, chronic -Low sodium diet DM II with CKD -RISS Anemia in CKD -Continue Retacrit TIW CKD MBD -Continue Vitamin D Sepsis Infected Right HD CVC -ID following -Line holiday -Continue Abx
[2021-01-19] MEDS: ATORVASTATIN 40 MG TAB PO SCH (20:54)
[2021-01-19] MEDS: hydrOXYzine HCL 25 MG TAB PO PRN (20:54)
[2021-01-19] MEDS: TRAZODONE 50 MG TABLET PO SCH (20:54)
[2021-01-19] MEDS: LIDOCAINE 4% PATCH TOP SCH (20:57)
[2021-01-20] MEDS: HYDRALAZINE HCL 20 MG/ML VIAL IV PRN (03:41)
[2021-01-20 07:36] LABS: Albumin 2.8 g/dL (3.4-5.0); Phosphorus 5.6 mg/dL (2.5-4.9)
[2021-01-20 07:37] LABS: Magnesium 2.1 mg/dL (1.8-2.4); Potassium 4.5 mmol/L (3.5-5.1)
[2021-01-20] MEDS: DOXAZOSIN 2 MG TAB PO SCH (08:10)
[2021-01-20] MEDS: ARIPiprazole 5 MG TAB PO SCH (08:10)
[2021-01-20] MEDS: ASPIRIN EC 81 MG TAB PO SCH (08:10)
[2021-01-20] MEDS: HEPARIN 5000 UNIT/ML 1 ML VIAL SQ SCH (08:11)
[2021-01-20] MEDS: FLUTICASONE 50MCG NASAL SPRAY NAS SCH (08:11)
[2021-01-20] MEDS: GABAPENTIN 100 MG CAP PO SCH (08:12)
[2021-01-20] MEDS: VITAMIN D 5,000 UNIT CAP PO SCH (08:15)
[2021-01-20] MEDS: CALCITROL 0.25 MCG CAP PO SCH (08:15)
[2021-01-20] MEDS: carvediloL 25 MG TAB PO SCH (08:51)
[2021-01-20] MEDS: INSULIN -REGULAR HUMAN 50 UNIT/0.5 ML ML SQ SCH ×3 (08:52→17:32)
[2021-01-20] MEDS ORDERED: CEFAZOLIN/NS 1gm 1 GM/50 ML BAG IVPB SCH (09:00)
[2021-01-20] MEDS ORDERED: NS 0.9% VIAL 10 ML ONE (09:44)
[2021-01-20] MEDS ORDERED: NA CHLORIDE 0.9% 100 ML IV ONE (09:45)
[2021-01-20] MEDS ORDERED: BUPIVACAINE 0.5% PF 10 ML VIAL ONE (09:45)
[2021-01-20] MEDS ORDERED: LIDOCAINE 1% MPF 30 ML VIAL ONE (09:45)
--- NOTE | 2021-01-20 09:48 | P.PN ---
Subjective Date of Service: 01/20/21 Primary Care Provider: Dr. Karan TOLBERT Chief Complaint: Fever, dyspnea, hyperkalemia Patient seen examined at bedside. Cultures negative at 24hr. Place to replace CVC today. Review of Systems 10-point ROS is otherwise unremarkable Physical Examination - Vital Signs Temperature: 97.7 F Blood Pressure: 154/75 Pulse: 62 Respirations: 16 Pulse Ox (%): 100 - Studies Laboratory Last Values WBC 11.30 K/uL (4.3-10.9) H D 01/13/21 22:26 RBC 3.45 M/uL (4.33-5.43) L D 01/13/21 22:26 Hgb 10.2 g/dL (13.6-17.9) L 01/13/21 22: Hct 31.8 % (39.6-49.0) L D 01/13/21 22: MCV 92.1 fL (80-100) 01/13/21 22: MCH 29.6 pg (27.0-35.0) 01/13/21 22: MCHC 32.2 g/dL (32.0-36.0) 01/13/21 22: RDW 15.9 % (12.1-15.2) H 01/13/21 22: Plt Count 249 K/uL (152-406) 01/13/21 22:26 MPV 8.2 fL (7.6-11.3) 01/13/21 22: Neutrophils % 90.2 % (41.7-73.7) H 01/13/21 22: Lymphocytes % 4.7 % (15.3-44.8) L 01/13/21 22: Monocytes % 2.8 % (3.3-12.3) L 01/13/21 22: Eosinophils % 1.9 % (0-4.4) 01/13/21: Basophils % 0.4 % (0-1.3) 01/13/21 22: Absolute Neutrophils 10.2 K/uL (1.8-8.0) H 01/13/21 22:26 Segmented Neutrophils 83 % (40-80) H 01/13/21 22:26 Band Neutrophils 8 % (0-1) H 01/13/21 22:26 Absolute Lymphocytes 0.5 K/uL (0.7-4.9) L 01/13/21 22: Lymphocytes 5 % (15-42) L 01/13/21 22: Monocytes 1 % (0-10) 01/13/21: Absolute Monocytes 0.3 K/uL (0.1-1.3) 01/13/21: Eosinophils 2 % (0-3) 01/13/21: Absolute Eosinophils 0.2 K/uL (0-0.5) 01/13/21: Absolute Basophils 0.0 K/uL (0-0.5) 01/13/21: Reactive Lymphocytes 1 % 01/13/21: Platelet Estimate Adeq 01/13/21: Morphology Comment Not seen (NOT SEEN) 01/13/21: PT 12.8 SECONDS (9.5-12.5) H 01/13/21 22: INR 1.11 01/13/21 22: Sodium 139 mmol/L (136-145) 01/13/21 22: Potassium 5.2 mmol/L (3.5-5.1) H 01/13/21 22: Chloride 111 mmol/L (98-107) H 01/13/21 22: Carbon Dioxide 22 mmol/L (21-32) 01/13/21 22: BUN 35 mg/dL (7-18) H 01/13/21 22: Creatinine 5.16 mg/dL (0.55-1.3) H* D 01/13/21: Estimated GFR 12 mL/min (=/>90) L 01/13/21 22: Glucose 107 mg/dL (74-106) H 01/13/21 22: Lactic Acid 1.1 mmol/L (0.4-2.0) 01/13/21 22: Calcium 8.9 mg/dL (8.5-10.1) 01/13/21: Magnesium 1.8 mg/dL (1.8-2.4) D 01/13/21 22: Total Bilirubin 0.3 mg/dL (0.2-1.0) 01/13/21: Direct Bilirubin < 0.1 mg/dL (0-0.2) 01/13/21 22: AST 10 U/L (15-37) L 01/13/21: ALT 16 U/L (12-78) 01/13/21: Alkaline Phosphatase 113 U/L (45-117) 01/13/21 22: Rapid Troponin I < 0.02 ng/mL (0.0-0.045) 01/13/21: NT-Pro-B Natriuret Pep 1582 pg/mL (<125) H 01/13/21 22: Serum Total Protein 8.1 g/dL (6.4-8.2) 01/13/21: Albumin 3.7 g/dL (3.4-5.0) 01/13/21: Globulin 4.4 g/dL (2.3-3.5) H 01/13/21: Albumin/Globulin Ratio 0.8 (1.1-1.8) L 01/13/21: Procalcitonin 0.06 ng/mL (<0.050) H 01/13/21 22: SARS-CoV-2 Rap RNA(RT-PCR) Negative (NEGATIVE) 01/13/21 22: Assessment And Plan - Plan Physical Exam: General: Alert, Oriented x3, Obese HEENT: Atraumatic, Normocephalic Respiratory: Clear to auscultation bilaterally, Normal air movement Cardiovascular: No edema, Regular rate/rhythm, Normal S1 S2 Capillary refill: <2 Seconds Gastrointestinal: Normal bowel sounds, Soft and benign, Non-distended Musculoskeletal: No clubbing, No swelling, No contractures Integumentary: Other (Bilateral lower extremity stasis dermatitis. Right lower extremity erythema. No open wounds.) Conclusions/Impression: Antibiotics: cefazolin start: 01/16 Rocephin start: 01/16 stop: 01/19 Vancomycin Start: 01/14 stop: 01/16 Cefepime Start: 01/14 Stop: 01/16 Assessment/plan Sepsis likely due to an infected right CVC Patient had a septic presentation on admission with leukocytosis and a T-max of 102.2. Blood cultures obtained on 01/13 growing methicillin-susceptible Staphylococcus aureus resistant to penicillins. Vancomycin and cefepime have been discontinued, Rocephin started. Due to high clinical suspicion for endocarditis will empirically treat for 6 weeks. Source of infection: Infected right tunnel dialysis catheter. Catheter removed on 01/16, source of infection controlled. Repeat blood cultures taken on 01/15 growing methicillin- susceptible Staphylococcus aureus. Rocephin discontinued cefazolin started--renally doses 0.5 gm q24hr. Repeat cultures taken on 01/18 show no growth at 24hr. Place to replace CVC today. UTI Urinalysis grossly positive with WBC and bacteria, urine culture growing mixed reece. Continue Rocephin. DM type 2 strict gluocse monitoring needed for infection control, continue insulin. He moglobin A1c ordered. Right lower extremity cellulitis/stasis dermatitis cellulites resolved. Recommend keeping legs elevated, continue to monitor for PVD ulcers. Leukocytosis with left shift Now within normal range. Continue to trend inflammatory markers and procal. Repeat labs ordered. ESRD on HD Nephrology on case. Renally dose all antibiotics. Continue to monitor CBC and BMP Continue to monitor for signs of infection medical management per primary team Plan of care discussed with Dr. Godfrey Thank you for consultation
[2021-01-20] MEDS ORDERED: NA CHLORIDE 0.9% 500 ML ONE (10:16)
[2021-01-20] MEDS ORDERED: propofoL 200 MG/20 ML VIAL IV ONE (10:38)
[2021-01-20] MEDS ORDERED: FENTANYL CITR 100 MCG/2 ML ONE (10:39)
[2021-01-20] MEDS ORDERED: LIDOCAINE 2% MPF 5 ML VIAL ONE (10:39)
[2021-01-20] MEDS: HEPARIN 5000 UNIT/ML 1 ML VIAL ONE ×2 (11:12→11:14)
[2021-01-20] MEDS ORDERED: EPHEDRINE SULF 50 MG/ML VIAL ONE (11:21)
--- NOTE | 2021-01-20 11:45 | P.BOP ---
Preoperative diagnosis: ESRD Postoperative diagnosis: same Primary procedure: 1. Placement tunneled HD catheter Left IJ vein Secondary procedure: 2. Interpretation of fluoroscopy Other procedure(s): 3. Left neck ultrasound Estimated blood loss: <5cc Specimen: as above Findings: as above Anesthesia: General Complications: None Transferred to: Recovery Room Condition: Good
[2021-01-20] MEDS ORDERED: INSULIN -REGULAR HUMAN 50 UNIT/0.5 ML ML ONE (12:47)
[2021-01-20] MEDS ORDERED: MORPHINE 4 MG/ML SYR ONE (12:59)
--- NOTE | 2021-01-20 13:28 | RAD REPORT ---
EXAM DESCRIPTION: RAD - Chest Single View - 01/20/2021 12:56 pm CLINICAL HISTORY: s/p HD cathplacement, postprocedure chest film COMPARISON: Portable January 13 TECHNIQUE: AP portable chest image was obtained 01/20/2021 12:56 pm . FINDINGS: Double-lumen hemodialysis catheter has been placed via left jugular approach. The long arm of the catheter is in the proximal SVC directed towards the lateral wall of the SVC. Short arm of th e catheter is near the brachiocephalic SVC junction. This positioning should still be adequate for pr oper function of the catheter. No pneumothorax. No pleural fluid collections seen. No new lung parenchymal process. Lung markings are accentuated by low lung volumes. Enlarged cardiom ediastinal silhouette matches comparison. Final report was delayed due to technical malfunction. IMPRESSION: Left jugular hemodialysis catheter placement as detailed above. No pneumothorax.
--- NOTE | 2021-01-20 15:15 | RAD REPORT ---
EXAM DESCRIPTION: RAD - Fluoroscopy <1 Hour - 01/20/2021 2:59 pm FINDINGS: There were 11 portable C-arm views obtained during a fluoroscopic assisted placement of le ft jugular hemodialysis catheter. Images show stepwise placement with no suspicious or unexpected fin ding. Fluoro time was 1.0 minutes. Cumulative dose was 35.7 mGy
[2021-01-20 18:41] VITALS: BP 177/83; TEMP 97.6
--- NOTE | 2021-01-20 19:02 | P.DS ---
Admission Date: 01/14/21 Discharge Date: 01/20/21 Primary Care Provider: Dr. Karan TOLBERT Disposition: ROUTINE DISCHARGE Discharge Condition: FAIR Reason for Admission: Fever, dyspnea, hyperkalemia Consultations: Nephrology-Dr. Russo. General surgery-Dr. Arias. Infectious disease-Dr. Godfrey - Problems (1) MSSA bacteremia Status: Acute (2) ESRD (end stage renal disease) on dialysis Status: Acute (3) Chronic anemia Status: Acute (4) Diabetes Status: Chronic Qualifiers: Diabetes mellitus type: type 2 Diabetes mellitus long term care administrator insulin use: with nursing home use Diabetes mellitus complication status: with kidney complications Diabetes mellitus complication detail: with chronic kidney disease Chronic kidney disease stage: unspecified stage Qualified Code(s): E11.22 - Type 2 diabetes mellitus with diabetic chronic kidney disease; Z79.4 - halfway (current) use of insulin Brief History of Present Illness: 55-year-old male with history of diabetes mellitus type 2, ESRD recently initiated on HD, chronic diastolic congestive heart failure, chronic anemia, morbid obesity presents emergency department for fever. Patient reports fever began this evening around 9 or 10 PM, patient has been feeling short of breath at home ever since he left the hospital reportedly ROS otherwise negative. Patient was evaluated in the emergency department labs were significant for white blood cell count 11.3 with left shift hemoglobin 10.2 hematocrit 31.88% bandemia creatinine 5.16 GFR 12 BUN 35 potassium 5.2 procalcitonin 0.06 Covid/influenza negative chest x-ray appears to demonstrate mild volume overload pattern. Patient with questionable cellulitis to the right lower extremity, also has recently placed dialysis catheter in the right anterior chest wall both possible sources of infection. Blood cultures were obtained in the emergency department, vital signs are stable patient does not appear septic at this time. Patient was started on cefepime/vancomycin given Lasix/Kayexalate for hyperkalemia and emergency department physician wishes to admit for further evaluation and management. Hospital Course: Problem list Sepsis without severe sepsis/shock secondary to central line infection, and concurrent UTI. Sepsis resolved Right central line removed 01/16 Dyspnea secondary to acute on chronic diastolic congestive heart failure/ESRD on HD MWF with volume overload Diabetes mellitus type 2, insulin-dependent Anemia of chronic disease Hypertension Morbid obesity ID consulted Gram positive bacteremia, patient treated with IV vancomycin and cefepime and later transition to IV cefazolin. Blood cultures initial and repeat positive for MSSA. Dialysis catheter tip removed on 01/16, tip positive for MSSA as well Dialysis catheter removed on 01/16 Repeat blood culture 01/18 - yielded no growth. New dialysis catheter placed by Dr. Arias followed by successful hemodialysis. Anemia appears stable around 8. Patient requested for discharge after dialysis. Dr. Russo cleared patient for discharge. He will arrange for 2 more weeks of IV cefazolin to be given during dialysis. Patient will follow Dr. Russo for further management. Vital Signs/Physical Exam: Temp Pulse Resp BP Pulse Ox 97.6 F 63 16 177/83 H 97 01/20/21 16:00 01/20/21 16:00 01/20/21 16:00 01/20/21 16:00 01/20/21 16:00 General: Alert, In no apparent distress, Oriented x3 HEENT: Mucous membr. moist/pink Neck: JVD not distended Respiratory: Clear to auscultation bilaterally, Normal air movement, Other (Left-chest hemodialysis catheter) Cardiovascular: Regular rate/rhythm, Normal S1 S2 Gastrointestinal: Normal bowel sounds, Soft and benign, Non-distended Musculoskeletal: No swelling Integumentary: No rashes Neurological: Other (No focal motor deficit.) Laboratory Data at Discharge: WBC 8.40 K/uL (4.3-10.9) 01/19/21 05:46 Hgb 8.7 g/dL (13.6-17.9) L 01/19/21 05:46 Hct 27.0 % (39.6-49.0) L 01/19/21 05:46 Plt Count 230 K/uL (152-406) 01/19/21 05:46 PT 12.8 SECONDS (9.5-12.5) H 01/13/21 22:26 INR 1.11 01/13/21 22:26 Sodium 141 mmol/L (136-145) 01/20/21 06:38 Potassium 4.5 mmol/L (3.5-5.1) 01/20/21 06:38 BUN 48 mg/dL (7-18) H 01/20/21 06:38 Creatinine 5.91 mg/dL (0.55-1.3) H* 01/20/21 06:38 Glucose 268 mg/dL (74-106) H 01/20/21 06:38 Phosphorus 5.6 mg/dL (2.5-4.9) H 01/20/21 06:38 Magnesium 2.1 mg/dL (1.8-2.4) 01/20/21 06:38 Total Bilirubin 0.2 mg/dL (0.2-1.0) 01/19/21 05:46 AST 17 U/L (15-37) 01/19/21 05:46 ALT 25 U/L (12-78) 01/19/21 05:46 Alkaline Phosphatase 123 U/L (45-117) H 01/19/21 05:46 Home Medications: Gabapentin 300 mg PO DAILY 11/15/19 Insulin Detemir [Levemir Flextouch] 33 units SQ BID 11/15/19 Calcitrol [Rocaltrol*] 0.5 mcg PO DAILY #60 cap 11/19/19 Furosemide [Lasix] 80 mg PO BID #60 tablet 11/19/19 carvediloL [Coreg*] 25 mg PO BID #60 tab 11/19/19 hydrOXYzine HCL [Atarax] 50 mg PO Q6HR PRN 12/24/20 ARIPiprazole [Aripiprazole] 1 tab PO DAILY 12/25/20 Aspirin [Vazalore] 1 tab PO DAILY 12/25/20 Atorvastatin Calcium 1 tab PO BEDTIME 12/25/20 Insulin -Regular Human [Novolin -R*] 11 units SQ TIDWM 12/25/20 Trazodone [Desyrel*] 100 mg PO BEDTIME 12/25/20 Amlodipine [Norvasc*] 5 mg PO DAILY 30 Days #30 tab 01/05/21 Doxazosin Mesylate [Cardura] 2 mg PO BID 30 Days #60 tablet 01/05/21 Cefazolin 2 gm in 0.9% NaCl [Ancef 2 Gm/100 ML NS] 2 gm IV M,W,F 14 Days bag 01/20/21 Cholecalciferol (Vitamin D3) [Vitamin D 5,000 IU Cap*] 5,000 unit PO DAILY #30 cap 01/20/21 Epoetin [Retacrit] 10,000 unit SQ M,W,F vial 01/20/21 Fluticasone [Flonase 50MCG Nasal [place]*] 2 sprays ANALILIA BID #1 btl 01/20/21 Heparin [Heparin 1,000 units/mL *] 3,000 unit IV EVERY HD vial 01/20/21 Heparin [Heparin 1,000 units/mL *] 6,000 unit IV EVERY HD PRN vial 01/20/21 Lidocaine 4% Patch [Lidoderm 5% Patch*] 1 patch TOP BEDTIME #10 patch 01/20/21 Mannitol 25% [Mannitol*] 12.5 gm IV EVERY HD PRN vial 01/20/21 New Medications: Cefazolin 2 gm in 0.9% NaCl [Ancef 2 Gm/100 ML NS] 2 gm IV M,W,F 14 Days bag Fluticasone [Flonase 50MCG Nasal [place]*] 2 sprays ANALILIA BID #1 btl Lidocaine 4% Patch [Lidoderm 5% Patch*] 1 patch TOP BEDTIME #10 patch Cholecalciferol (Vitamin D3) [Vitamin D 5,000 IU Cap*] 5,000 unit PO DAILY #30 cap Diet: Renal Activity: Ad manuel Followup: Zeke Russo DO [ACTIVE - CAN ADMIT] - 1 Week (call to schedule an appointment) Unknown,U [Primary Care Provider] - Time spent managing pt's care (in minutes): 40
[2021-01-20 19:14] VITALS: O2SAT 96
--- NOTE | 2021-01-20 19:34 | OP ---
Surgeon: Suleman Arias MD Preoperative Diagnoses: Morbid obesity, renal failure, history of bacteremia. Postoperative Diagnoses: Morbid obesity, renal failure, history of bacteremia. Procedures: 1.Placement of hemodialysis catheter in the left internal jugular vein. 2.Interpretation of fluoroscopy. 3.Left neck ultrasound. Anesthesia: General plus local. Implant: HemoSplit 24 cm tunneled catheter. Complications: None. Indication: This is the case of a 55-year-old patient with multiple medical problems, came here with fever of 2 days' duration. Workup was done, found to have bacteremia and foreign body removal was r equested by the primary doctor. The patient has hemodialysis catheter about a month ago, but he has not have any complication with it. No fevers. No problems over the area until about 2 days ago. He has been using the catheter, but per protocol he was advised to have it removed and it was done a fe w days ago. The Infectious Disease and primary doctor asked me to wait for a few days before we put a new one and today they gave me the clearance to put the hemodialysis catheter since Dr. Karan grove ded for hemodialysis. They understand the risks of this infection, bleeding, damage to adjacent stru ctures, anesthesia complication, hemothorax, pneumothorax, DVTs, PEs, AR, and even . He also un derstands there is chance of also bacteremia and colonization of this new catheter if the bacteremia comes back once again. Still, he needs dialysis, so they asked me to put this catheter on him. The placement is somehow difficult due to the body habitus. The patient is morbidly obese with a very sh ort neck that is why we decided to do it under anesthetic under control settings with fluoroscopy and ultrasound available and used to be able to place in a safe fashion. The benefits, alternatives, an d risks after fully explained, the patient signed a consent. Procedure In Detail: The patient was brought to the operating room, placed in supine position. Anes thesia was done without complication. Neck and chest were prepped and draped in usual sterile fashio n and placed in Trendelenburg position. A time-out was called. Using an ultrasound, we proceeded to localize the left internal jugular vein and made sure it was compressible and so once we have that a nd the patient in Trendelenburg position, we proceeded to put an 18-gauge needle and found the vein a t the first attempt. Guidewire was passed through into the superior vena cava. The needle was remov ed. We found a spot in the left upper chest that is free from any infection and tunneled the cathete r to the area of the left upper neck incision. Serial dilators were placed through the guidewire und er direct visualization of fluoroscopy. Then, after that, the introducer sheath was placed then. Th e guidewire was removed. The catheter was placed then and then introducer sheath was carefully henok d off. The catheter was secured in place with 3-0 nylon. Excellent backflow and inflow. The cathet er was flushed with heparinized solution. Fluoroscopy once again was used for guidance and it looks to be in proper position. The patient tolerated the procedure well. The area was covered with steri le dressings. The patient was sent to recovery room in stable condition and chest x-ray was ordered stat. KLEVER/JIMMY Voice ID: [id number] Report ID: [id number]
--- NOTE | 2021-01-20 20:26 | P.PN ---
Date of Service: 01/20/21 Vital Signs Temp Pulse Resp BP Pulse Ox 97.6 F 63 16 177/83 H 97 01/20/21 16:00 01/20/21 16:00 01/20/21 16:00 01/20/21 16:00 01/20/21 16:00 Microbiology Results 01/13/21 22:20 Blood - Blood Aerobic Blood Culture - Final Staph Aureus 01/13/21 22:20 Blood - Blood Blood Culture Gram Stain - Final 01/13/21 22:20 Blood - Blood Anaerobic Blood Culture - Final Staph Aureus 01/13/21 22:20 Blood - Blood Gram Stain - Final 01/13/21 22:26 Blood - Blood Aerobic Blood Culture - Final Staph Aureus 01/13/21 22:26 Blood - Blood Blood Culture Gram Stain - Final 01/13/21 22:26 Blood - Blood Anaerobic Blood Culture - Final Staph Aureus 01/13/21 22:26 Blood - Blood Gram Stain - Final 01/13/21 22:26 Nasopharnyx Influenza Type A Antigen Screen - Final 01/13/21 22:26 Nasopharnyx Influenza Type B Antigen Screen - Final Assessment/ Plan: Nephrology Progress Note Feeling better and ready to go home. No chest pain or dyspnea No acute events overnight Vitals, medications blood work and imaging reviewed in the chart General: Oriented x3, Cooperative, Moderate distress HEENT: Atraumatic Neck: Supple Respiratory: Clear to auscultation bilaterally Cardiovascular: Regular rate/rhythm, Edema Gastrointestinal: Soft and benign, Non-distended Musculoskeletal: No clubbing, No contractures Integumentary: No rashes, No cyanosis, Erythema Neurological: Normal speech Laboratory Data (last 24 hrs) 01/13/21 22:26: PT 12.8 H, INR 1.11 01/13/21 22:26: WBC 11.30 H D, Hgb 10.2 L, Hct 31.8 L D, Plt Count 249 01/13/21 22:26: Sodium 139, Potassium 5.2 H, BUN 35 H, Creatinine 5.16 H* D, Glucose 107 H, Magnesium 1.8 D, Total Bilirubin 0.3, AST 10 L, ALT 16, Alkaline Phosphatase 113 Imagings Data: EXAM DESCRIPTION: RAD - Chest Single View - 01/13/2021 10:29 pm CLINICAL HISTORY: DYSPNEA COMPARISON: Chest Single View dated 12/26/2020; Chest Single View dated 12/25/2020; Chest Single View dated 12/24/2020; Chest Single View dated 11/15/2019; Chest Abd Pelvis Wo Con dated 01/14/2021 FINDINGS: Lines:Right IJ approach dialysis catheter with tip overlying the right brachycephalic vein. Lungs: Pulmonary vascular congestion. Pleural: No significant pleural effusions or pneumothorax. Cardiac: Cardiomegaly. Bones: No acute fractures. Other: None IMPRESSION: Pulmonary vascular congestion. No consolidative airspace disease. EXAM DESCRIPTION: CT - Chest Abd Pelvis Wo Con - 01/14/2021 6:25 am CLINICAL HISTORY: 55 years, Male, Congestion;Abdominal distention;Fever COMPARISON: 11/15/2019 TECHNIQUE: Multiple transaxial tomograms of the chest, abdomen and pelvis were performed from the lung apices to the symphysis pubis 5 mm slice thickness at 5 mm interval reconstruction, without administration of IV and oral contrast. Multiplanar reformats in the sagittal and coronal plane were generated and reviewed. This exam was performed according to our departmental dose-optimization protocol, which includes automated exposure control, adjustment of the mA and/or kV according to patient size and/or use of iterative reconstruction technique. FINDINGS: The lack of IV and oral contrast limits evaluation of solid organs, subtle lesions cannot be excluded. Chest: The lung demonstrate to be clear. There is no evidence for pleural effusions/or pericardial effusions. The trachea mainstem bronchus demonstrate to be unremarkable. There is a right IJ tunnel dialysis catheter. The heart is not enlarged. There are coronary artery calcifications. There is no significant mediastinal or an/or hilar lymphadenopathy. Axillary regions demonstrate to be clear. The bone windows demonstrate no significant skeletal lesions. Abdomen and pelvis: Grossly the unopacified liver, gallbladder, pancreas, spleen and adrenal glands demonstrate to be within normal limits, no significant focal lesions were identified. There is no biliary duct dilatation. The kidneys demonstrate grossly unremarkable. There is no evidence for nephrolithiasis and/or hydronephrosis. Grossly the unopacified stomach, small bowel and large bowel demonstrate to be within normal limits. There is no evidence for bowel dilatation/or free air. The appendix is normal.. The urinary bladder demonstrate to be within normal limits. The prostate gland is unremarkable The aorta demonstrate minimal atherosclerotic disease. There is significant atherosclerotic disease of the branches of the abdominal aorta. There is no retroperitoneal lymphadenopathy. There is no evidence for ascites. The bone windows demonstrate minimal diffuse bony osteopenia. Minimal degenerative disc disease at L4/L5 and L5/S1. IMPRESSION: No evidence for nephrolithiasis and/or hydronephrosis. Minimal diffuse bony osteopenia. Minimal degenerative disc disease at L4/L5 and L5/S1. Coronary artery calcifications. Right IJ tunnel dialysis catheter. Heavy vascular opacification branches of the abdominal aorta. Conclusions/Impression: ESRD Proteinuria -HD TIW -CVC replaced today followed by HD HTN with CKD/ CHF -Hold antihypertensives Diastolic CHF, chronic -Low sodium diet DM II with CKD -RISS Anemia in CKD -Continue Retacrit TIW CKD MBD -Continue Vitamin D Sepsis Infected Right HD CVC -ID following -Continue Abx for two weeks Case reviewed with Dr. Drummond and Dr. Godfrey
== END 2021-01-20 19:10 | disposition home or self-care (01) | DRG 314 ==
LOC: ER 21:34 → ERHOLD 01-14 00:44 → 4TH 01-14 01:40
PROVIDERS: ADMIT Hospitalist; ATTEND Hospitalist
PROC: 05PYX3Z Removal of Infusion Device from Upper Vein, External Approach (ICD-10-PCS; 2021-01-16)
PROC: B514YZA Fluoroscopy of Left Jugular Veins using Other Contrast, Guidance (ICD-10-PCS; 2021-01-20)
PROC: 05HN33Z Insertion of Infusion Device into Left Internal Jugular Vein, Percutaneous Approach (ICD-10-PCS; principal; 2021-01-20 10:30)
DX: T80.211A Bloodstream infection due to central venous catheter, initial encounter (principal); A41.01 Sepsis due to Methicillin susceptible Staphylococcus aureus; I50.33 Acute on chronic diastolic (congestive) heart failure; N18.6 End stage renal disease; N39.0 Urinary tract infection, site not specified; I13.2 Hypertensive heart and chronic kidney disease with heart failure and with stage 5 chronic kidney disease, or end stage renal disease; Z68.41 Body mass index [BMI] 40.0-44.9, adult; L03.115 Cellulitis of right lower limb; I38 Endocarditis, valve unspecified; E11.22 Type 2 diabetes mellitus with diabetic chronic kidney disease; E66.01 Morbid (severe) obesity due to excess calories; R80.9 Proteinuria, unspecified; I87.2 Venous insufficiency (chronic) (peripheral); D63.1 Anemia in chronic kidney disease; E87.5 Hyperkalemia; Z20.822 Contact with and (suspected) exposure to COVID-19
CPT/HCPCS: 36415; 71045; 71250; 74176; 76000; 80048; 80053; 80069; 80076; 80202; 81003; 81015; 82947; 83036; 83605; 83735; 83880; 84100; 84145; 84484; 85025; 85610; 86140; 87040; 87070; 87077; 87086; 87088; 87186; 87205; 87804; 88300; 90935; 93005; 93306; 94760; 96365; 96366; 96375; 97161; 99284; C1752; J0360; J0690; J0692; J0696; J1644; J1940; J2250; J2704; J3010; J3370; J7040; J7050; Q5105; U0003

== ENCOUNTER 2021-02-10 09:29 | Emergency (ER) | payer OTHER ==
[2021-02-10 11:08] LABS: Protime INR 0.97
--- NOTE | 2021-02-10 11:26 | RAD REPORT ---
EXAM DESCRIPTION: RAD - Chest Single View - 02/10/2021 11:18 am CLINICAL HISTORY: missed dialysis X 2 Chest pain. COMPARISON: Chest Single View dated 01/20/2021; Chest Single View dated 01/13/2021; Chest Single Vie w dated 12/26/2020; Chest Single View dated 12/25/2020; Chest Abd Pelvis Wo Con dated 01/14/2021 FINDINGS: Portable technique limits examination quality. Mild pulmonary edema is seen. A 1 cm nodule may be present in the right mid lung. The heart is modera tely enlarged in size. Left-sided venous catheter has tip in the SVC. IMPRESSION: Mild to moderate CHF versus volume overload pattern.
[2021-02-10 11:57] LABS: Absolute Lymphocytes (CBC) 1.3 K/uL (0.7-4.9); Basophils % 1.5 % (0-1.3); Hematocrit 38.1 % (39.6-49.0); Lymphocytes % 17.9 % (15.3-44.8); MPV 8.9 fL (7.6-11.3); RBC Red Blood Cell Count 4.22 M/uL (4.33-5.43)
[2021-02-10] MEDS ORDERED: ALTEPLASE 2 MG/VIAL IV ONE (12:31)
[2021-02-10] MEDS ORDERED: WATER FOR INJ,STERILE 10 ML ONE (12:33)
[2021-02-10 12:36] LABS: Blood Morphology Comment NOT SEEN (NOT SEEN); Platelet Estimate ADEQ
[2021-02-10 12:56] LABS: ALT/SGPT 9 U/L (12-78); AST/SGOT 6 U/L (15-37); Albumin 2.7 g/dL (3.4-5.0); Alkaline Phosphatase 111 U/L (45-117); BUN Blood Urea Nitrogen 48 mg/dL (7-18); Bicarbonate 25 mmol/L (21-32); Bilirubin Direct 0.1 mg/dL (0-0.2); Bilirubin Total 0.2 mg/dL (0.2-1.0); Glucose Level 213 mg/dL (74-106); Magnesium 2.4 mg/dL (1.8-2.4); NT PRO-BNP 1903 pg/mL (<125); Potassium 5.2 mmol/L (3.5-5.1); Protein, Total 6.7 g/dL (6.4-8.2); Sodium Level 142 mmol/L (136-145); Troponin (Emerg Dept Use Only) < 0.02 ng/mL (0.0-0.045)
[2021-02-10] MEDS ORDERED: FUROSEMIDE 40 MG/4 ML VIAL ONE (13:44)
[2021-02-10] MEDS ORDERED: ALBUTEROL 2.5 MG/3 ML NEB SOL ONE (13:44)
[2021-02-10] MEDS ORDERED: INSULIN -REGULAR HUMAN 50 UNIT/0.5 ML ML ONE (13:45)
[2021-02-10] MEDS ORDERED: SOD POLYSTYREN SUL 15 GM/60 ML UCUP ONE (13:46)
[2021-02-10] MEDS ORDERED: D50W 25 GM/50 ML SYRINGE IV ONE (13:48)
--- NOTE | 2021-02-10 14:23 | ER ---
Nurse's Notes [facility] Name: Wild Koenig Age: 55 yrs Sex: Male : 1965 Arrival Date: 02/10/2021 Time: 09:32 Bed 17 Private MD: Diagnosis: Hyperkalemia;Other complication of vascular dialysis catheter;End stage renal disease Presentation: 02/10 09:32 Chief complaint: EMS states: DIALYSIS CATH CLOGGED AT DIALYSIS LAST TUESDAY. bp Coronavirus screen: At this time, the client does not indicate any symptoms associated with coronavirus-19. Ebola Screen: No symptoms or risks identified at this time. Initial Sepsis Screen: Does the patient meet any 2 criteria? No. Patient's initial sepsis screen is negative. Does the patient have a suspected source of infection? No. Patient's initial sepsis screen is negative. Risk Assessment: Do you want to hurt yourself or someone else? Patient reports no desire to harm self or others. Onset of symptoms is unknown. 09:32 Method Of Arrival: EMS: [facility] bp 09:32 Acuity: MYNOR 4 bp 10:32 Acuity: MYNOR 3 iw Triage Assessment: 09:40 General: Appears in no apparent distress. well developed, Behavior is calm, sl2 cooperative, appropriate for age. Pain: Denies pain. Historical: - Home Meds: 09:40 gabapentin Oral [Active]; Glipizide Oral [Active]; Hydroxyzine Oral [Active]; Insulin: sl2 Regular Sub-Q [Active]; lisinopril Oral [Active]; Metformin Oral [Active]; Wellbutrin Oral [Active]; - PMHx: 09:40 Anxiety; Congestive heart failure; chronic back pain; Depression; Diabetes - IDDM; sl2 Hypertension; Diabetes - NIDDM; 09:37 chronic back pain; Congestive heart failure; Anxiety; Depression; Diabetes - IDDM; bp Hypertension; - Immunization history:: Adult Immunizations up to date, Client reports receiving the 2nd dose of the Covid vaccine, Adult Immunizations up to date. - Social history:: Smoking status: Patient denies any tobacco usage or history of. Smoking status: Patient denies any tobacco usage or history of. Screenin:43 Abuse screen: Denies threats or abuse. Nutritional screening: No deficits noted. sl2 Tuberculosis screening: No symptoms or risk factors identified. Never had TB. Possible symptoms: None Risk factors: None. Fall Risk No fall in past 12 months (0 pts). No secondary diagnosis (0 pts). IV access (20 points). Ambulatory Aid- Crutches/Cane/Walker (15 pts). Gait- Impaired (20 pts.). Mental Status- Oriented to own ability (0 pts). Total Ocasio Fall Scale indicates Low Risk Score (25-44 pts). Fall prevention measures have been instituted. Side Rails Up X 2 Placed close to Nursing Station Frequent Obs/Assesments occuring. Assessment: 09:43 Reassessment: Patient presents to ED with c/o clogged dialysis catheter - states sl2 hemodialysis scheduled for [facility] Patient states his last dialysis session was Tue02/04/2021 - session was partially completed because left upper chest dialysis catheter became clogged. Since then patient has sought NO medical attention to unclog his dialysis catheter, subsequently has missed 2 scheduled dialysis sessions on Tuesday02/06/2021 and Tuesday02/09/2021. Patient denies any pain or discomfort at this time. General: Appears in no apparent distress. well developed, Behavior is calm, cooperative, appropriate for age, Reports clogged dialysis catheter. Pain: Denies pain. Neuro: No deficits noted. Level of Consciousness is awake, alert, obeys commands, Oriented to person, place, time, situation, Appropriate for age. Cardiovascular: No deficits noted. Respiratory: No deficits noted. Airway is patent Trachea midline Respiratory effort is even, unlabored, Respiratory pattern is regular, symmetrical, Breath sounds are clear bilaterally. GI: No deficits noted. No signs and/or symptoms were reported involving the gastrointestinal system. : No deficits noted. No signs and/or symptoms were reported regarding the genitourinary system. EENT: Reports Legally blind . Derm: No deficits noted. No signs and/or symptoms reported regarding the dermatologic system. Musculoskeletal: No deficits noted. No signs and/or symptoms reported regarding the musculoskeletal system. 12:32 Reassessment: Cathflo Activase 1mg IVP placed to each lumen of left upper chest sl2 dialysis catheter. This RN will wait 45 minutes and attempt aspiration of activase and blood from dialysis catheter to establish patency. 13:32 Reassessment: Left chest double lumen dialysis catheter is currently patent, 10cc of sl2 blood freely aspirated from each lumen, followed by 20cc of Normal saline IVP flush to each lumen - lines are both fully patent and flushed easily and freely without any resistance noted. Vital Signs: 09:32 BP 147 / 98; Pulse 87; Resp 19; Temp 97.8; Pulse Ox 97% ; bp 09:43 BP 163 / 71; Pulse 63; Resp 18; Temp 97.9; Pulse Ox 97% on R/A; sl2 13:00 BP 137 / 61; Pulse 56; Resp 18; Temp 98.0(O); Pulse Ox 98% on R/A; sl2 14:00 BP 142 / 68; Pulse 61; Resp 18; Temp 98.2(O); Pulse Ox 99% on R/A; sl2 15:26 BP 119 / 48; Pulse 62; Resp 18; Temp 98.0(O); Pulse Ox 97% on R/A; sl2 16:00 BP 124 / 56; Pulse 58; Resp 18; Pulse Ox 97% ; sl2 17:00 BP 159 / 75; Pulse 61; Resp 18; Temp 98.2(O); Pulse Ox 97% on R/A; sl2 18:30 BP 149 / 78; Pulse 64; Resp 18; Temp 98.2; Pulse Ox 99% ; sl2 ED Course: 09:32 Patient arrived in ED. bp 09:33 Sanjay Diaz MD is Attending Physician. pkl 09:36 Triage completed. bp 09:38 Sanjay Diaz MD is Attending Physician. pkl 09:39 Janae Lozano, MARISABEL is Primary Nurse. sl2 09:43 Patient has correct armband on for positive identification. Bed in low position. Call sl2 light in reach. Side rails up X 1. Side rails up X2. 10:43 James Ramírez PA is PHCP. cp 10:43 Sanjay Diaz MD is Attending Physician. cp 10:55 Initial lab(s) drawn, by me, sent to lab. Inserted saline lock: 22 gauge in left kj1 antecubital area, using aseptic technique. Blood collected. 11:18 XRAY Chest (1 view) In Process Unspecified. EDMS 13:59 initiated transfer to [facility]. bd 14:00 Arm band placed on. sl2 14:08 faxed chart to [facility] as requested by Ade. bd 14:10 Inserted saline lock: 24 gauge in right hand, using aseptic technique. sl2 16:20 initiated transfer to [facility]. bd 18:17 Jessee Timmons is Hospitalizing Provider. cp 18:25 transfer cancelled by James Ramírez pt to be discharged to follow up at dialysis at 10 am.bd 18:26 Zeke Russo DO is Referral Physician. cp 19:04 No provider procedures requiring assistance completed. IV discontinued, intact, sl2 bleeding controlled, No redness/swelling at site. Pressure dressing applied. Administered Medications: 12:30 Drug: Cathflo Activase 2 mg Route: IV Thrombolytics; sl2 15:26 Follow up: Response: No adverse reaction; Marked relief of symptoms sl2 13:35 Drug: Albuterol 2.5 mg Route: Inhalation; sl2 15:25 Follow up: Response: No adverse reaction sl2 14:23 Drug: Lasix (furosemide) 40 mg Route: IVP; Site: right hand; sl2 15:26 Follow up: Response: No adverse reaction sl2 14:28 Drug: Insulin Regular Human 10 units {Co-Signature: micha (Ana Hubbard RN).} Route: sl2 IVP; Site: right hand; 15:26 Follow up: Response: No adverse reaction sl2 19:07 Follow up: Response: No adverse reaction sl2 14:30 Drug: D50W 25 ml Route: IVP; Site: right hand; sl2 15:25 Follow up: Response: No adverse reaction sl2 14:43 Not Given (Patient Refused): Kayexalate (polystyrene) 30 grams PO once sl2 18:53 CANCELLED (Physician Discretion): Benadryl (diphenhydrAMINE) 12.5 mg IVP once la1 Outcome: 14:22 ER care complete, transfer ordered by MD. cp 18:18 Decision to Hospitalize by Provider. cp 18:27 Discharge ordered by . cp 19:05 Condition: stable sl2 19:05 Discharge instructions given to Instructed on discharge instructions, follow up and referral plans. Demonstrated understanding of instructions. 20:15 Patient left the ED. sl2 Signatures: Dispatcher [employer] EDMS Iza Bojorquez Pin, MD MD pkl Williams, Irene, RN RN iw James Ramírez PA PA cp Peltier, Brian, RN RN bp Charles, Paula kj1 Janae Lozano RN RN 2 Jessee Timmons [facility] Ana Hubbard RN iw
--- NOTE | 2021-02-10 14:23 | EDPHYS ---
Physician Documentation [facility] Name: Wild Koenig Age: 55 yrs Sex: Male : 1965 Arrival Date: 02/10/2021 Time: 09:32 Bed 17 Private MD: ED Physician Sanjay Diaz HPI: 02/10 10:40 This 55 yrs old Male presents to ER via EMS with complaints of DIALYSIS CATH cp CLOGGED. 11:15 The patient has a dialysis catheter in the left subclavian area. Type of problem: cp clotted. Onset: The symptoms/episode began/occurred 1 week(s) ago. The malfunction was discovered at the dialysis center. Dialysis schedule: . Associated signs and symptoms: Pertinent negatives: fever, redness in area, bleeding at site. 11:15 Patient reports dialysis catheter has been clogged times 1 week and reports last time cp he completed dialysis was last Tuesday. 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 Historical: - Home Meds: 09:40 gabapentin Oral [Active]; Glipizide Oral [Active]; Hydroxyzine Oral [Active]; Insulin: sl2 Regular Sub-Q [Active]; lisinopril Oral [Active]; Metformin Oral [Active]; Wellbutrin Oral [Active]; - PMHx: 09:40 Anxiety; Congestive heart failure; chronic back pain; Depression; Diabetes - IDDM; sl2 Hypertension; Diabetes - NIDDM; 09:37 chronic back pain; Congestive heart failure; Anxiety; Depression; Diabetes - IDDM; bp Hypertension; - Immunization history:: Adult Immunizations up to date, Client reports receiving the 2nd dose of the Covid vaccine, Adult Immunizations up to date. - Social history:: Smoking status: Patient denies any tobacco usage or history of. Smoking status: Patient denies any tobacco usage or history of. ROS: 10:45 Constitutional: Negative for body aches, chills, fever, poor PO intake. cp 10:45 Eyes: Negative for injury, pain, redness, and discharge. cp 10:45 ENT: Negative for ear pain, sore throat, difficulty swallowing, difficulty handling secretions. 10:45 Cardiovascular: Positive for edema, Negative for chest pain, palpitations. 10:45 Respiratory: Positive for shortness of breath, Negative for cough, wheezing. 10:45 Abdomen/GI: Negative for abdominal pain, nausea, vomiting, and diarrhea. 10:45 Back: Negative for radiated pain. 10:45 Skin: Negative for cellulitis, rash. 10:45 Neuro: Negative for altered mental status, headache, numbness, syncope, weakness. 10:45 All other systems are negative. cp Exam: 10:50 Constitutional: The patient appears in no acute distress, alert, awake, cp non-diaphoretic, non-toxic, well developed, well nourished. 10:50 Head/Face: Normocephalic, atraumatic. cp 10:50 Eyes: Periorbital structures: appear normal, Conjunctiva: normal, no exudate, no injection, Sclera: no appreciated abnormality, Lids and lashes: appear normal, bilaterally. 10:50 ENT: External ear(s): are unremarkable, Nose: is normal, Mouth: Lips: moist, Oral mucosa: pink and intact, moist, Posterior pharynx: Airway: no evidence of obstruction, patent. 10:50 Neck: ROM/movement: is normal, is supple, without pain, no range of motions limitations. 10:50 Chest/axilla: Inspection: left side upper chest dialysis catheter in place, Palpation: is normal, no crepitus, no tenderness. 10:50 Cardiovascular: Rate: normal, Rhythm: regular, Edema: ankle edema, that is very mild, JVD: is not appreciated. 10:50 Respiratory: the patient does not display signs of respiratory distress, Respirations: normal, no use of accessory muscles, no retractions, labored breathing, is not present, Breath sounds: decreased breath sounds, are not appreciated, stridor, is not appreciated, wheezing: is not appreciated. 10:50 Abdomen/GI: Inspection: abdomen appears normal, Palpation: abdomen is soft and non-tender, in all quadrants. 10:50 Back: pain, is absent, ROM is normal. 10:50 Skin: cellulitis, is not appreciated, no rash present. 10:50 Neuro: Orientation: to person, place \\T\\ time. Mentation: is normal, Motor: moves all fours, strength is normal, Sensation: is normal. 11:13 ECG was reviewed by the Attending Physician. cp Vital Signs: 09:32 BP 147 / 98; Pulse 87; Resp 19; Temp 97.8; Pulse Ox 97% ; bp 09:43 BP 163 / 71; Pulse 63; Resp 18; Temp 97.9; Pulse Ox 97% on R/A; sl2 13:00 BP 137 / 61; Pulse 56; Resp 18; Temp 98.0(O); Pulse Ox 98% on R/A; sl2 14:00 BP 142 / 68; Pulse 61; Resp 18; Temp 98.2(O); Pulse Ox 99% on R/A; sl2 15:26 BP 119 / 48; Pulse 62; Resp 18; Temp 98.0(O); Pulse Ox 97% on R/A; sl2 16:00 BP 124 / 56; Pulse 58; Resp 18; Pulse Ox 97% ; sl2 17:00 BP 159 / 75; Pulse 61; Resp 18; Temp 98.2(O); Pulse Ox 97% on R/A; sl2 18:30 BP 149 / 78; Pulse 64; Resp 18; Temp 98.2; Pulse Ox 99% ; sl2 MDM: 09:38 Patient medically screened. pkl 11:00 Differential diagnosis: cellulitis, catheter fracture, catheter blockage. cp 13:25 Data reviewed: vital signs, nurses notes, lab test result(s), EKG, radiologic studies, cp plain films, I have discussed the patient's presentation/case with the attending Emergency Department Physician;. 13:25 Test interpretation: by ED physician or midlevel provider: ECG, plain radiologic cp studies. 14:20 Physician consultation: Zeke Russo DO was contacted at 14:20, regarding consult, cp patient's condition, after a discussion of the case, a recommendation for transfer for higher level of care is made, for vascular surgery services. Reports having difficulty with dialysis catheter due to frequent blockage. Consulted with DR Suleman Arias, general surgeon, who recommends transfer for vascular surgery evaluation. 17:12 Physician consultation: Suleman Arias MD was called at 17:10, was contacted at 17:10, cp regarding regarding transfer, patient's condition, after a discussion of the case, a recommendation for transfer for higher level of care is made, for replacement of hemosplit catheter due to frequent blockage for a hemodialysis catheter. 17:39 Physician consultation: Zeke Russo DO was called at 17:35, regarding consult, cp patient's condition, left message on voicemail. 18:25 ED course: Consult performed with hospitalist services Jessee Timmons NP. We see the cp patient in the emergency department for evaluation and after consult with Dr. Russo feels patient is safe to discharge to have dialysis tomorrow. We will discharge patient to home for continued monitoring. 02/10 10:32 Order name: Basic Metabolic Panel; Complete Time: 13:19 02/10 13:19 Interpretation: Normal except: K 5.2; CL 112; GLUC 213; BUN 48; CRE 6.55; GFR 9; CA 8.2.cp 02/10 10:32 Order name: CBC with Diff; Complete Time: 13:19 02/10 13:20 Interpretation: Normal except: RBC 4.22; HGB 11.9; HCT 38.1; MCHC 31.3; RDW 16.5; cp EOSINOPHIL % 5.5; BASO% 1.5. 02/10 10:32 Order name: LFT's; Complete Time: 13:19 02/10 13:20 Interpretation: Normal except: AST 6; ALT 9; ALB 2.7; GLOB 4.0; A/G 0.7. cp 02/10 10:32 Order name: Magnesium; Complete Time: 13:19 02/10 10:32 Order name: NT PRO-BNP; Complete Time: 13:19 02/10 10:32 Order name: PT-INR; Complete Time: 13:19 02/10 10:32 Order name: Troponin (emerg Dept Use Only); Complete Time: 13:19 02/10 10:32 Order name: XRAY Chest (1 view); Complete Time: 13:19 02/10 12:36 Order name: Manual Differential; Complete Time: 13:19 EDMS 02/10 14:02 Order name: COVID-19 SARS RT PCR (Document "Date of Onset" if Symptomatic); Complete bd Time: 16:55 02/10 10:32 Order name: EKG; Complete Time: 10:33 02/10 10:32 Order name: Cardiac monitoring; Complete Time: 11:02 02/10 10:32 Order name: EKG - Nurse/Tech; Complete Time: 11:02 02/10 10:32 Order name: IV Saline Lock; Complete Time: 11:02 02/10 10:32 Order name: Labs collected and sent; Complete Time: 11: iw 02/10 10:32 Order name: O2 Per Protocol; Complete Time: 15:28 iw 02/10 10:32 Order name: O2 Sat Monitoring; Complete Time: 15:28 iw 02/10 11:13 Order name: Labs - recollect needed: recollect cbc; Complete Time: 15:28 iw 02/10 11:30 Order name: Labs - recollect needed: recollect green top; Complete Time: 15:28 02/10 13:52 Order name: Diet Renal; Complete Time: 13:53 cp EC: Rate is 60 beats/min. Rhythm is regular. FL interval is normal. QRS interval is normal. cp QT interval is normal. T waves are Inverted in lead aVR. Interpreted by me. Reviewed by me. Administered Medications: 12:30 Drug: Cathflo Activase 2 mg Route: IV Thrombolytics; sl2 15:26 Follow up: Response: No adverse reaction; Marked relief of symptoms sl2 13:35 Drug: Albuterol 2.5 mg Route: Inhalation; sl2 15:25 Follow up: Response: No adverse reaction sl2 14:23 Drug: Lasix (furosemide) 40 mg Route: IVP; Site: right hand; sl2 15:26 Follow up: Response: No adverse reaction sl2 14:28 Drug: Insulin Regular Human 10 units {Co-Signature: (Ana Hubbard RN).} Route: sl2 IVP; Site: right hand; 15:26 Follow up: Response: No adverse reaction sl2 19:07 Follow up: Response: No adverse reaction sl2 14:30 Drug: D50W 25 ml Route: IVP; Site: right hand; sl2 15:25 Follow up: Response: No adverse reaction sl2 14:43 Not Given (Patient Refused): Kayexalate (polystyrene) 30 grams PO once sl2 18:53 CANCELLED (Physician Discretion): Benadryl (diphenhydrAMINE) 12.5 mg IVP once la1 Disposition Summary: 02/10/21 18:27 Discharge Ordered Location: Home(02/10/21 18:27) cp Problem: new(02/10/21 18:27) cp Symptoms: have improved(02/10/21 18:27) cp Condition: Stable(02/10/21 18:27) cp Diagnosis - Hyperkalemia(02/10/21 18:27) cp - Other complication of vascular dialysis catheter(02/10/21 18:27) cp - End stage renal disease(02/10/21 18:27) cp Followup: cp - With: Zeke Russo, DO - When: Tomorrow - Reason: for dialysis Discharge Instructions: - Discharge Summary Sheet cp - Hyperkalemia cp - Dialysis cp - Vascular Access for Hemodialysis cp - End-Stage Kidney Disease cp - Eating Plan for Dialysis cp Forms: - Medication Reconciliation Form cp - Thank You Letter cp - Antibiotic Education cp - Prescription Opioid Use cp Addendum: 02/13/2021 19:06 Co-signature as Attending Physician, Sanjay lomax Signatures: Dispatcher [employer] EDMS Iza Bojorquez Pin, MD MD pkl Williams, Irene, RN RN iw Jessee Timmons, CORE MOUNTER-C CORE MOUNTER-Cla1 James Ramírez PA PA cp Javier Vicente RN RN bp Janae Lozano RN RN sl2 Ana Hubbard RN iw Corrections: (The following items were deleted from the chart) 02/10 16:38 10:45 All other systems are negative, cp cp 18:17 14:22 Doctor cp cp 18:17 14:22 [facility] cp cp 18:17 14:22 Higher level of care cp cp 18:17 14:22 Stable cp cp 18:17 14:22 new cp cp 18:17 14:22 have improved cp cp 18:17 14:22 Other complication of vascular dialysis catheter cp cp 18:17 14:22 Hyperkalemia cp cp 18:26 18:18 Observation cp cp 18:26 18:18 Jessee Timmons cp cp 18:26 18:18 Telemetry/MedSurg (observation) cp cp 18:26 18:18 Stable cp cp 18:26 18:18 chronic cp cp 18:26 18:18 have improved cp cp 18:26 18:18 Standard cp cp 18:26 18:18 cp cp 18:26 18:18 Hyperkalemia cp cp 18:26 18:18 End stage renal disease cp cp 18:26 18:18 Other complication of vascular dialysis catheter cp cp 18:53 18:24 Benadryl (diphenhydrAMINE) 12.5 mg IVP once ordered. la1 la1 02/11 16:06 02/10 18:35 ED course: Consult performed with hospitalist services Jessee Timmons NP. We cp see the patient in the emergency department for evaluation and after consult with Dr. Russo feels patient is safe to discharge to have dialysis tomorrow. We will discharge patient to home for continued monitoring. cp
[2021-02-10 20:50] VITALS: TEMP 98.2
[2021-02-10 20:52] VITALS: BP 149/78; O2SAT 99
--- NOTE | 2021-02-11 11:22 | EKG ---
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
--- OUTSIDE RECORDS SUMMARY | 2021-02-14 17:58 | XMS REPORT | Continuity of Care Document ---
:1965 Author Organization [facility] t Address [address] [place] [address] Care Team Providers Name Role Phone Rebecca Hubbard DO Attending Clinician Desiree ECHAVARRIA Attending Clinician Desiree ECHAVARRIA Admitting Clinician Problems Condition Condition Condition Status Onset Resolution Last Treating Co mments Source Name Details Category Date Date Treatment Clinician Date Acute on Acute on Disease Active Unive rs chronic chronic 10-22 ity of renal renal 00:00: [place] insufficie insufficie 00 Me dical [facility] Branch Alcohol Alcohol Disease Active Univers dependence dependence 10-22 it y of 00:00: 00 Medical Branch Benign Benign Disease Active Univers essential essential 10-22 ity of hypertensi hypertensi [place] Cannabis Cannabis Disease Active Unive rs abuse abuse 10-22 ity of 00:00: 00 Medical Branch Cocaine Cocaine Disease Active Univers abuse abuse 10-22 ity of 00:00: 00 Medical Branch Congestive Congestive Disease Active U nivers heart heart 10-22 ity of failure failure 00:00: [place] 00 Medical Branch Depressive Depressive Disease Active U nivers disorder disorder 10-22 ity of 00:00: [place] 00 Medical Branch Diabetes Diabetes Disease Active Unive rs mellitus mellitus 10-22 ity of 00:00: 00 Medical Branch Legal Legal Disease Active Overview: Univer s blindness blindness 10-22 Formattin i ty of [place] 00:00: g of this 00 note Medical might be Branch different from the original. Mar 12, 2020 Entered By: DON MARSH Comment: per 03/11/20 EYE NOTE Morbid Morbid Disease Active Univers obesity obesity 7-21 ity of with body [place] mass index mass index 00 Me dical of of Branch 40.0-49.9 40.0-49.9 Allergies, Adverse Reactions, Alerts Allergy Allergy Status Severity Reaction(s) Onset Inactive Treating Comm ents Source Name Type Date Date Clinician NO KNOWN Drug Active Univers ALLERGIE Class ity of S [facility] Social History Social Habit Start Date Stop Date Quantity Comments Source Exposure to Not sure [facility] SARS-CoV-2 (event) Medica l Branch Sex Ass[birth year] At [birth year] [facility] 00:00:00 00:00:00 Medical Branch Smoking Status Start Date Stop Date Source Unknown if ever smoked [facility] Medications Ordered Filled Start Stop Current Ordering Indication Dosage Frequency Signature Comments Components Source Medication Medication Date Date Medication? Clinician (SIG) Name Name calcitrioL 2020- No [id number] .5ug Take 1 Univers 0.5 mcg 10-24 capsule by ity o f capsule 00:00: 04:59 mouth [place] 00 :00 daily for Medical 30 days. Branch amLODIPine 2020- No [id number] 5mg Take 1 Univers 5 mg tablet 10-24- tablet by it y of 00:00: 04:59 mouth [place] 00 :00 daily for Medical 30 days. Branch gabapentin Yes 300mg Take 300 Un desiree 300 mg 7-22 mg by ity of capsule 23:01: mouth 3 [place] 32 (three) Medical times Branch daily. traZODone Yes 100mg Take 100 Uni vers 100 mg 7-22 mg by ity of tablet 23:01: mouth at [place] 32 bedtime as Medical needed for Branch Insomnia. Cholecalcif Yes 5000U Take 5,000 Univers jake, 7-22 Units by ity of Vitamin D3, 23:01: mouth [place] (VITAMIN 32 daily. Medical D3) 125 mcg Branch (5,000 unit) tablet insulin Yes 33U inject 33 Unive rs detemir 7-22 Units ity of U-100 23:01: under the [place] (LEVEMIR 32 skin 2 Medical U-100 (two) Branch INSULIN) times 100 unit/mL daily with injection meals. NOVOLOG Yes 11U inject 11 Unive rs U-100 7-22 Units ity of INSULIN 23:01: under the [place] ASPART SC 32 skin 2 Medical (two) Branch times daily with meals. ARIPiprazol Yes 5mg Take 5 mg U nivers e (ABILIFY) 7-22 by mouth ity of 5 mg tablet 23:01: daily. [address] Branch aspirin 81 0 Yes 81mg Take 81 mg U nivers mg chewable 7-22 by mouth ity of tablet 23:01: daily. [address] Branch atorvastati 0 Yes 40mg Take 40 mg Univers n 40 mg 7-22 by mouth ity of tablet 23:01: at [place] [address] bedtime. Medical Branch buPROPion 0 Yes 300mg Take 300 Uni vers XL 300 mg 7-22 mg by ity of 24 hr 23:01: mouth [place] tablet 31 daily. Medical Branch carvediloL Yes 25mg Take 25 mg U nivers 25 mg 7-22 by mouth 2 ity of tablet 23:01: (two) [place] [address] times Medical daily with Branch meals. citalopram Yes 40mg Take 40 mg U nivers 40 mg 7-22 by mouth ity of tablet 23:01: daily. [address] Branch vitamin 0 Yes 1000ug Take 1,000 Un desiree B-12 1,000 7-22 mcg by ity of mcg tablet 23:01: mouth [place] [address] daily. Medical Branch ferrous 0 Yes 324mg Take 324 Unive rs gluconate 7-22 mg by ity of 324 mg 23:01: mouth 2 [place] (37.5 mg 31 (two) Medical iron) times Branch tablet daily. furosemide Yes 80mg Take 80 mg U nivers 80 mg 7-22 by mouth 2 ity of tablet 23:01: (two) [place] [address] times Medical daily. Branch calcitrioL 2020- No .5ug Take 0.5 Un desiree 0.25 mcg - 07-22 mcg by ity of capsule 20:02: 00:00 mouth [place] 43 :00 daily. Medical Branch ergocalcife 0 2020- No [id number] Take Uni vers rol, 7-22 07-22 50,000 ity of vitamin d2, 20:02: 00:00 Units by [place] 1,250 mcg 43 :00 mouth Medical (50,000 weekly. Branch unit) capsule Sliding Yes Subcutaneo Univ ers Scale 10-23 us, TID ity of Insulin - 17:00: MEALS+HS, [place] as Lispro 00 First dose Medical (HumaLOG) + on [facility] Branch Fsbg 10/23/20 at Testing 1200, Until Discontinu ed, Routine insulin Yes 33U 33 Units, Unive rs glargine 10-23 Subcutaneo ity o f (LANTUS 15:30: us, BID, [place] U-100) 00 First dose Medical injection on [facility] 33 Units 10/23/20 at 1030, Until Discontinu ed, Routine buPROPion Yes 300mg 300 mg, Univ ers XL 10-23 Oral, ity of (WELLBUTRIN 14:00: DAILY, [place] XL) tablet 00 First dose Med ical 300 mg on [facility] 10/23/20 at 0900, Until Discontinu ed, Routine aspirin Yes 81mg 81 mg, Univers chewable 10-23 Oral, ity of tablet 81 14:00: DAILY, [place] mg 00 First dose Medical on [facility] 10/23/20 at 0900, Until Discontinu ed, Routine ARIPiprazol Yes 5mg 5 mg, Unive rs e (ABILIFY) 10-23 Oral, ity of tablet 5 mg 14:00: DAILY, [place] 00 First dose Medical on [facility] 10/23/20 at 0900, Until Discontinu ed, Routine vitamin Yes 1000ug 1,000 mcg, Un desiree B-12 10-23 Oral, ity of (CYANOCOBAL 14:00: DAILY, [place] LINK) 00 First dose Medical tablet on [facility] 1,000 mcg 10/23/20 at 0900, Until Discontinu ed, Routine ergocalcife Yes [id number] 50,000 Un desiree rol 10-23 Units, ity of (vitamin 14:00: Oral, [place] d2) 00 QWEEKLY, Medical (CALCIFEROL First dose Br anch ) capsule on [place] 50,000 10/23/20 at Units 0900, Until Discontinu ed, Routine citalopram Yes 40mg 40 mg, Unive rs (CELEXA) 10-23 Oral, ity of tablet 40 14:00: DAILY, [place] mg 00 First dose Medical on [facility] 10/23/20 at 0900, Until Discontinu ed, Routine cholecalcif 0 Yes 5000U 5,000 Univ ers jake 10-23 Units, ity of (vitamin 14:00: Oral, [place] D3) tablet 00 DAILY, Medical 5,000 Units First dose Br anch on [facility] 10/23/20 at 0900, Until Discontinu ed calcitrioL Yes .5ug 0.5 mcg, Uni vers (ROCALTROL) 10-23 Oral, ity of capsule 0.5 14:00: DAILY, [place] mcg 00 First dose Medical on [facility] 10/23/20 at 0900, Until Discontinu ed, Routine traMADoL Yes 50mg 50 mg, Univers (ULTRAM) 10-23 Oral, ity of tablet 50 10:16: Q6HPRN, [place] mg 54 Starting Medical [facility] 10/23/20 at 0516, Until Discontinu ed, Routine, Pain (scale 4-6) amLODIPine Yes 5mg 5 mg, Univer s (NORVASC) 10-23 Oral, ity of tablet 5 mg 04:00: DAILY, [place] 00 First dose Medical on [facility] 10/22/20 at 2300, Until Discontinu ed, Routine hydralAZINE Yes 20mg 20 mg, Univ ers (APRESOLINE 10-23 Slow IV ity o f ) injection 03:56: Push, [place] 20 mg 39 Q4HPRN, Medical Starting Branch Tue10/22/20 at 2256, Until Discontinu ed, STAT, DBP=>100; SBP=>180<b r>Indicati on: Hypertensi ve Emergency atorvastati Yes 40mg 40 mg, Univ ers n (LIPITOR) 10-23 Oral, QHS, it y of tablet 40 02:00: [place] dose [place] 00 on [facility] 10/22/20 at Branch 2100, Until Discontinu ed, Routine gabapentin 2021-0 Yes 300mg 300 mg, Uni vers (NEURONTIN) 10-23 Oral, TID, it y of capsule 300 01:00: First dose [place] mg 00 on [facility] 10/22/20 at [place] 1999, Until Discontinu ed, Routine furosemide Yes 80mg 80 mg, Unive rs (LASIX) 10-23 Oral, BID, ity of tablet 80 01:00: [place] dose [place] mg 00 [place] Tue [facility] 10/22/20 at [place] 1999, Until Discontinu ed, Routine ferrous Yes 325mg 325 mg, Univer s sulfate 10-23 Oral, BID, ity of tablet 325 01:00: First dose [place] mg 00 on [facility] 10/22/20 at [place] 1999, Until Discontinu ed ergocalcife Yes [id number] 45600C Take 1 Univers rol, 10-23 capsule by ity of vitamin d2, 00:00: mouth [place] 1,250 mcg 00 weekly. Medical (50,000 Branch unit) capsule D5W IV Yes [id number] 1000mL at 50 Uni vers infusion 10-22 mL/hr, IV ity of 1,000 mL 22:15: Infusion, [place] 00 CONTINUOUS Medical , Starting Branch [facility] 10/22/20 at 1715, Until Discontinu ed, Routine thiamine 2020- No [id number] 200mg IV Uni vers (VITAMIN 10-22 Piggyback, ity of B1) 200 mg 22:15: 22:45 ONCE, 1 [place] as in NaCl 00 :00 dose, [facility] 0.9% (NS) 10/22/20 at [facility] piggyback 1715, 50 mL carvediloL Yes 25mg 25 mg, Unive rs (COREG) 10-22 Oral, BID ity of tablet 25 22:00: MEALS, [place] mg 00 First dose Medical on [facility] 10/22/20 at 1700, Until Discontinu ed, Routine insulin Yes 11U 11 Units, Unive rs lispro 10-22 Subcutaneo ity of (human) 21:30: us, BIDAC, [place] (HumaLOG 00 First dose Medic al U-100) on Tue [place] injection 10/22/20 at 11 Units 1630, Until Discontinu ed traZODone Yes 100mg 100 mg, Univ ers (DESYREL) 10-22 Oral, ity of tablet 100 19:23: QHSPRN, [place] mg 13 Starting Medical Wed Branch 10/22/20 at 1423, Until Discontinu ed, Routine, Insomnia heparin Yes 5000U 5,000 Univers (porcine) 10-22 Units, ity of injection 19:00: Subcutaneo [place] 5,000 Units 00 us, Q8H, [facility] amber First dose Branch on Tue10/22/20 at 1400, Until Discontinu ed, Routine ondansetron Yes 4mg 4 mg, Slow Univers (ZOFRAN 10-22 IV Push, ity of (PF)) 17:49: Q6HPRN, [place] injection 4 47 Starting Medi amber mg [facility] Branch 10/22/20 at 1249, Until Discontinu ed, Routine, Nausea and Vomiting (N/V) acetaminoph Yes 650mg 650 mg, Un desiree en 10-22 Oral, ity of (TYLENOL) 17:49: Q6HPRN, [place] tablet 650 38 Starting Medic al mg [facility] 10/22/20 at 1249, Until Discontinu ed, Routine, Pain (scale 1-3) Immunizations Ordered Filled Immunization Date Status Comments [facility] e Immunization Name Name Zoster Vaccine 2020-08-07 Completed [facility] 00:00:00 [facility] SARS-COV-2 COVID-19 2020-06-[address] [facility] PFIZER VACCINE 00:00:00 [facility] Pneumococcal 13 2020-04-18 Completed Universit y of Conjugate, PCV13 00:00:00 [facility] (Prevnar 13) [place] Influenza Virus 2019-12-27 Completed Universit y of Vaccine Quad IM 3+ 00:00:00 [facility] Influenza Virus 2019-05-05 Completed Universit y of Vaccine 00:00:00 [facility] TDAP 2017-05-11 Completed University of 00:00:00 [facility] Influenza Virus 2014-12-26 Completed Universit y of Vaccine 00:00:00 [facility] Influenza Virus 2014-12-26 Completed Universit y of Vaccine (3+ yrs) [facility]00 [facility] [place] Vital Signs Vital Name Observation Time Observation Value Comments Source Systolic blood 2020-10-23 21:02:00 94 mm[Hg] Univer sity of [facility] Diastolic blood 2020-10-23 21:02:00 67 mm[Hg[facility] rate 2020-10-23 21:02:00 59 /min [facility] Body temperature 2020-10-23 21:02:00 36.56 Madalyn [facility] Respiratory rate 2020-10-23 21:02:00 13 /min [facility] Oxygen saturation in 2020-10-23 21:02:00 94 /min [facility] Arterial blood by [facility] Pulse oximetry [place] Body height 2020-10-22 20:03:[address] [facility] Body weight 2020-10-22 20:03:[address] [facility] BMI 2020-10-22 20:03:00 44.48 kg/m2 [facility] Procedures Procedure Date / Time Performing Clinician Source Performed MAGNESIUM 2020-10-23 09:20:00 Eduardo Ramírez [facility] BASIC METABOLIC PANEL (NA, 2020-10-23 09:20:00 Eduardo Ramírez [facility] K, CL, CO2, GLUCOSE, BUN, Medica l Branch CREATININE, CA) CBC WITH DIFF 2020-10-23 09:20:00 Froylan Ramírezlani [facility] POCT GLUCOSE (AUTOMATED) 2020-10-23 00:59:00 Eduardo Ramírez [facility] XR CHEST 2 VW 2020-10-23 00:43:[facility] RETROPER[facility]AL 2020-10-22 23:18:55 Jjoo Madrigal [facility] COMPLETE [facility] FERRITIN SERUM 2020-10-22 21:56:00 Kaitlin [facility] TOTAL IRON BINDING 2020-10-22 21:56:00 Kaitlin [facility] CAPACITY [facility] THYROID STIMULATING 2020-10-22 21:56:00 Kaitlin [facility] HORMONE [facility] INTACT PTH CALCIUM GROUP 2020-10-22 21:56:00 Jojo Madrigal [facility] HEPATITIS B SURFACE 2020-10-22 21:56:00 [facility] ANTIBODY [facility] HEPATITIS B SURFACE 2020-10-22 21:56:00 [facility]TIGEN [facility] HBC ANTIBODY (IGM & IGG) 2020-10-22 21:56:00 Jojo Madrigal [facility] N-TERMINAL PRO-BNP 2020-10-22 21:56:00 [facility] VITAMIN D, 25-OH 2020-10-22 21:56:00 Kaitlin [facility] POCT GLUCOSE (AUTOMATED) 2020-10-22 21:37:00 Eduardo Ramírez [facility] URINE DRUG (IMMUNOASSAY) - 2020-10-22 19:35:00 Meg Stinson [facility] COMPREHENSIVE DR[facility] SCREEN [facility] GLYCOSYLATED HEMOGLOBIN 2020-10-22 19:35:00 Meg Stinson [facility] (A1C) [facility] OSMOLALITY URINE 2020-10-22 19:31:00 Kaitlin [facility] URINALYSIS 2020-10-22 19:31:00 Rebecca Hubbard [facility] VITAMIN D, 25-OH 2020-10-22 19:31:00 Eduardo Ramírez [facility] CREATININE, URINE RANDOM 2020-10-22 19:31:00 Jojo Madrigal [facility] TOTAL PROTEIN, URINE 2020-10-22 19:31:00 Jojo Madrigal [facility] POTASSIUM, URINE RANDOM 2020-10-22 19:31:00 Kaitlin [facility] SODIUM, URINE RANDOM 2020-10-22 19:31:00 [facility] PHOSPHORUS 2020-10-22 19:30:00 Eduardo Ramírez [facility] CREATINE KINASE 2020-10-22 19:30:00 Kaitlin, Brigani [facility] URIC ACID 2020-10-22 19:30:00 Desiree [facility] FERRITIN SERUM 2020-10-22 19:30:00 Desiree [facility] IRON 2020-10-22 19:30:00 Desiree [facility] TOTAL IRON BINDING 2020-10-22 19:30:00 [facility] 2020-10-22 19:30:00 Eduardo Ramírez [facility] HB ECG ROUTINE & RHYTHM 2020-10-22 16:16:29 [facility] (ID NOW RAPID 2020-10-22 16:12:00 [facility] Medical Branch PHOSPHORUS 2020-10-22 15:15:00 Jojo Madrigal [facility] MAGNESIUM 2020-10-22 15:15:00 Rebecca Hubbard [facility] TROPONIN I 2020-10-22 15:15:00 Rebecca Hubbard [facility] COMP. METABOLIC PANEL 2020-10-22 15:15:00 Rebecca Hubbard [facility] ([id number]) [facility] CBC WITH DIFF 2020-10-22 15:15:00 Rebecca Hubbard [facility] NOTICE OF PRIVACY 2020-10-22 14:39:44 Doctor Unassigned, [facility] PRACTICES [place] [facility] CONSENT/REFUSAL FOR 2020-10-22 14:37:51 Doctor Unassigned, [facility] DIAGNOSIS AND TREATMENT [place] [facility] Encounters Start End Encounter Admission Attending Care Care Encounter Source Date/Time Date/Time Type Type Clinicians Facility Department ID 2020-10-22 2020-10-23 Emergency Rebecca Hubbard [facility] [id number] [facility] 09:47:00 17:45:00 Eduardo Ramírez [id number] [facility] [id number] [facility] [id number] [place] [address] Branch 2020-10-22 2020-10-22 Emergency X [facility] ERT [id number] Univers 09:37:00 09:37:00 [facility] Results Test Description Test Time Test Comments Results Result Comments Source INTACT PTH CALCIUM GROUP 2020-10-23 15:40:51 Test Item Value Reference Range Interpretation Comme nts PTH-INTACT (test code = 174.9 pg/mL 12.0-88.0 H [id number]) PTH-CA Interpretation (test code = Further clinical data [id number]) needed for inte rpretation. CALCIUM (test code = 9664341692) 9.1 mg/dL 8.6-10.6 Lab Interpretation (test code = Abnormal 45605-7) [facility] CALCIUM [id number] 15:40:50 Test Item Value Reference Range Interpretation Comments PTH-INTACT (test code = 207.3 pg/mL 12.0-88.0 H 9107507884) PTH-CA Interpretation Furthe r clinical (test code = 7092762518) romi a needed for interpretation. CALCIUM (test code = 9.2 mg/dL 8.6-10.6 1994860527) Lab Interpretation (test Abnormal code = 08720-7) [facility] Met[facility] Panel (NA, K, CL, CO2, GLUCOSE, BUN, CREATININE, CA)2020-10-23 11:42:35 Test Item Value Reference Range Interpretation Comments NA (test code = 142 mmol/L 135-145 5545567540) K (test code = 3.8 mmol/L 3.5-5.0 6761266115) CL (test code = 106 mmol/L 98-108 3699671145) CO2 TOTAL (test code = 27 mmol/L 23-31 3730346444) AGAP (test code = 2-16 9953369604) BUN (test code = 76 mg/dL 7-23 H 3515095501) GLUCOSE (test code = 193 mg/dL 70-110 H 8875860011) CREATININE (test code = 6.07 mg/dL 0.60-1.25 H 1768781389) CALCIUM (test code = 9.1 mg/dL 8.6-10.6 8517539052) eGFR (test code = mL/min/1.73m2 5250986680) CANDY (test code = CANDY) Association of Glomerular Filtration Rate (GFR) and Staging of Kidney Disease* + --+ --+ ------+| GFR (mL/min/1.73 m2) ?| With Kidney Damage ?| ?Without Kidney Damage+ --------+ --------+ +| ?>90 ?| ?Stage one ?| ? Normal ?+ ---+ ---+ -------+| ?60-89 ?| ?Stage two ?| ? Decreased GFR ? + --+ --+ ------+| ?30-59 ?| ?Stage three ?| ? Stage three ? + --+ --+ ------+| ?15-29 ?| ?Stage four ? | ? Stage four ?+ ---+ ---+ -------+| ?<15 (or dialysis) ? ?| ?Stage five ? | ? Stage five ?+ ---+ ---+ -------+ *Each stage assumes the associated GFR level has been in effect for at least three months. ?Stages 1 to 5, with or without kidney disease, indicate chronic kidney disease. Notes: Determination of stages one and two (with eGFR >59mL/min/1.73 m2) requires estimation of kidney damage for at least three months as defined by structural or functional abnormalities of the kidney, manifested by either:Pathological abnormalities or Markers of kidney damage (including abnormalities in the composition of the blood or urine or abnormalities in imaging tests). Lab Interpretation Abnormal (test code = 59787-3) [facility] FallsMagnesium [id number] 11:42:35 Test Item Value Reference Range Interpretation Comments MAGNESIUM (test code = 3843415935) 2.3 mg/dL 1.7-2.4 Lab Interpretation (test code = Normal 99801-5) [facility] with [id number] 11:10:11 Test Item Value Reference Range Interpretation Comments WBC (test code = See_Comment [Automated 6190-2) message] The sy stem which generated this result transmitted reference range : 4.20 - 10.70 10*3/?L. The reference range was not used to interpret this result as normal/abnormal . RBC (test code = See_Comment L [Automated 179-8) message] The sy stem which generated this result transmitted reference range : 4.26 - 5.52 10*6/?L. The reference range was not used to interpret this result as normal/abnormal . HGB (test code = 8.2 g/dL 12.2-16.4 L 718-7) HCT (test code = 26.0 % 38.4-49.3 L 4544-3) MCV (test code = 91.2 fL 81.7-95.6 787-2) MCH (test code = 28.8 pg 26.1-32.7 785-6) MCHC (test code = 31.5 g/dL 31.2-35.0 786-4) RDW-SD (test code = 45.0 fL 38.5-51.6 39393-8) RDW-CV (test code = 13.4 % 12.1-15.4 788-0) PLT (test code = See_Comment [Automated 777-3) message] The sy stem which generated this result transmitted reference range : 150 - 328 10*3/ ?L. The reference r mick was not used to interpret this result as normal/abnormal . MPV (test code = 10.6 fL 9.8-13.0 10040-6) NRBC/100 WBC (test See_Comment [Automat ed code = 7765214908) message] The system which generated this result transmitted reference range : 0.0 - 10.0 /100 WBCs. The refer ence range was not u sed to interpret th is result as normal/abnormal . NRBC x10^3 (test code <0.01 See_Comment [Auto mated = 1875353843) message] The s ystem which generated this result transmitted reference range : 10*3/?L. The reference range was not used to interpret this result as normal/abnormal . GRAN MAT (NEUT) % 67.1 % (test code = 770-8) IMM GRAN % (test code 0.30 % = 9452172120) LYMPH % (test code = 21.3 % 736-9) MONO % (test code = 7.6 % 5905-5) EOS % (test code = 3.3 % 713-8) BASO % (test code = 0.4 % 706-2) GRAN MAT x10^3(ANC) 5.36 10*3/uL 1.99-6.95 (test code = 6768034927) IMM GRAN x10^3 (test <0.03 0.00-0.06 code = 1168362752) LYMPH x10^3 (test code 1.70 10*3/uL 1.09-3.23 = 731-0) MONO x10^3 (test code 0.61 10*3/uL 0.36-1.02 = 742-7) EOS x10^3 (test code = 0.26 10*3/uL 0.06-0.53 711-2) BASO x10^3 (test code 0.03 10*3/uL 0.01-0.09 = 704-7) Lab Interpretation Abnormal (test code = 61663-8) [facility] GLUCOSE (AUTOMATED)2020-10-23 05:54:27 Test Item Value Reference Range Interpretation Comments POCT GLU (test code = 7721519897) 218 mg/dL 70-110 H Lab Interpretation (test code = Abnormal 75900-0) [facility] FallsVITAMIN D, [id number] 05:11:32 Test Item Value Reference Range Interpretation Comments VIT D 25OH (test code = 46 ng/mL 25-80 53871-0) CANDY (test code = CANDY) Deficiency: <20 ng/mLInsufficiency : 20-24 ng/mLOptimal: 25-80 ng/mL Lab Interpretation (test Normal code = 62454-0) [facility] B Core Antibody, [id number] 05:11:12 Test Item Value Reference Range Interpretation Comments HBC (test code = 2466560370) Negative HBC Semi-Quantitative (test code = 0530693774) [facility] B SURFACE [id number] 05:11:12 Test Item Value Reference Range Interpretation Comments HBsAB (test code = Negative 7717176887) HBsAb mIU/mL Semi-Quantitative (test code = 7238039889) CANDY (test code = Interpretation: CANDY) ?Hepatitis B Surface Antibody ? Negative - Patient is considered to be not immune to infection with HBV. ? ? Positive - Anti-HBs detected at greater than or equal to 12 mIU/mL. ?Patient is considered to be immune to infection with HBV. ? [facility] FallsHEPATITIS B SURFACE [id number] 04:53:21 Test Item Value Reference Range Interpretation Comments HBsAg Semi-Quantitative (test code = Negative Negative 5195-3) [facility] FallsTOTAL PROTEIN, URINE [id number] 03:14:16 Test Item Value Reference Range Interpretation Comments T. PROT U (test code = 2888-6) 743 mg/dL [facility] FallsXR CHEST 2 [id number] 02:58:28Impression: Nodular opacity overlying the left upper lung, seen only in the APprojection. I cannot exclude pulmonary nodule related to infection orneoplasm. Further evaluation with CT of the chest is recommended if thereare no prior studies for comparison. RL: 460 End of Report Ordering Physician: TESS MADRIGAL History: ?Assess for pulm onary edema. Rule out pulmonary tuberculosis.Pretesting for dialysis procedure. Technique: Chest, 2 views Technical quality: Adequate Comparison: None Findings: ? There are relatively low lung volumes. There is an ill-defined nodularopacity overlying the left upper lobe in the frontal projection, measuringapproximately 1.8 cm. A definite correlate is not identified in the lateralprojection. The lungs are otherwise clear. No pleural effusions areevident. Heart size is borderline in size, allowing for the AP techniqueand low lung volumes. The superior mediastinal silhouette is unremarkablefor age, projection, and degree of inspiration. [facility], Radiant Results Inft User - 10/22/2020 10:17 PM CDTFormatt ing of this note might be different from the original.Ordering Physician: JOJO MADRIGALHistory: Assess for pulmonary edema. Rule out pulmonary tuberculosis.Pretesting for dialysis procedure.Technique: Chest, 2 viewsTechnical quality: AdequateComparison: NoneFindings: There are relatively low lungvolumes. There is an ill-defined nodularopacity overlying the left upper lobe in the frontal projection, measuringapproximately 1.8 cm. A definite correlate is not identified in the lateralprojection. The lungs are otherwise clear. No pleural effusions areevident. Heart size is borderline in size, allo wing for the AP techniqueand low lung volumes. The superior mediastinal silhouette is unremarkablefor age, projection, and degree of inspiration.IMPRESSIONImpression:Nodular opacity overlying the left upper lung, seen only in the APprojection. I cannot exclude pulmonary nodule related to infection orneoplasm. Further evaluation with CT of the chest is recommended if thereare no prior studies for comparison.RL: 460End of Report UnCH[facility] SpringsPOCT GLUCOSE (AUTOMATED)2020-10-23 01:11:29 Test Item Value Reference Range Interpretation Comments POCT GLU (test code = 5391708195) 143 mg/dL 70-110 H Lab Interpretation (test code = Abnormal 63798-7) [facility] FallsOSMOLALITY [id number] 00:56:19 Test Item Value Reference Range Interpretation Comments OSMO U (test code = See_Comment [Automa tianna message] 4968789023) The system [employer] generated this result transmitted ref erence range: 50-1,100 mOsm/kg. The re ference range was not u sed to interpret this result as normal/abnor mal. Lab Interpretation (test Normal code = 18800-4) [facility] FallsVITAMIN D, [id number] 00:10:49 Test Item Value Reference Range Interpretation Comments VIT D 25OH (test code = 39 ng/mL 25-80 72469-4) CANDY (test code = CANDY) Deficiency: <20 ng/mLInsufficiency : 20-24 ng/mLOptimal: 25-80 ng/mL Lab Interpretation (test Normal code = 90455-6) [facility] FallsFERRITIN [id number] 23:38:41 Test Item Value Reference Range Interpretation Comments FERRITIN (test code = 51.5 ng/mL 18.0-464.0 6619905486) CANDY (test code = CANDY) Biotin has been reported to cause a negative bias, interpret results relative to patient's use of biotin. Lab Interpretation (test Normal code = 51464-8) [facility] FallsTHYROID STIMULATING [id number] 23:34:40 Test Item Value Reference Range Interpretation Comments TSH (test code = See_Comment [Automated message] 7186431005) The system [employer] generated this result transmitted ref erence range: 0.45 - 4 .70 mIU/L. The refe rence range was not u sed to interpret this result as normal/abnor mal. Lab Interpretation (test Normal code = 10331-9) [facility] FallsN-TERMINAL [id number] 23:12:53 Test Item Value Reference Range Interpretation Comments NT-proBNP (test code 592 pg/mL See_Comment H [Autom ated = 6964101116) message] The system which generated this result transmitted reference range : <=125. The reference range was not used to interpret this result as normal/abnormal . CANDY (test code = CANDY) Biotin has been reported to cause a negative bias, interpret results relative to patient's use of biotin. Lab Interpretation Abnormal (test code = 66111-6) [facility] FallsTOTAL IRON BINDING [id number] 23:12:53 Test Item Value Reference Range Interpretation Comments TIBC (test code = 6286478799) 326 ug/dL 250-410 Lab Interpretation (test code = Normal 05407-1) [facility] FallsGLYCOSYLATED HEMOGLOBIN (A1C)2020-10-22 22:38:18 Test Item Value Reference Range Interpretation Comments HGB A1C (test code = 7.0 % 4.0-5.7 H 4548-4) CANDY (test code = CANDY) Reference RangesNormal: <5.7%Prediabetes: 5.7 - 6.4%Diabetes: > 6.5% Lab Interpretation (test Abnormal code = 63716-1) [facility] FallsCREATINE [id number] 21:46:35 Test Item Value Reference Range Interpretation Comments CK (test code = 8365230632) 122 U/L 33-194 Lab Interpretation (test code = Normal 86830-1) [facility] FallsFERRITIN [id number] 21:38:35 Test Item Value Reference Range Interpretation Comments FERRITIN (test code = 51.8 ng/mL 18.0-464.0 0598549320) CANDY (test code = CANDY) Biotin has been reported to cause a negative bias, interpret results relative to patient's use of biotin. Lab Interpretation (test Normal code = 89563-6) [facility] FallsDRUG PANEL 2 [id number] 21:37:33 Test Item Value Reference Range Interpretation Comments AMPHET (test code = Negative Negative 5219063194) VIDAL U (test code = Negative Negative 0182501634) BENZO U (test code = Negative Negative 6723509491) Cocaine Metabolite (test Presumptive Positive Negative A code = 1719723160) METHADONE (test code = Negative Negative 7424008402) OPIATES (test code = Negative Negative 8234329465) PCP (test code = Negative Negative 6422925228) THC (test code = Negative Negative 5286255568) CANDY (test code = CANDY) Urine Drug Cutoff Ranges Cocaine: ? 150 ng/mLBenzodiazepines: ? ? 200 ng/mLMethadone: ? 300 ng/mLAmphetamine: ? 1,000 ng/mLOpiates: ? 300 ng/mLCannabinoids: ?50 ng/mLPhencyclidine: ? ? ? 25 ng/mLBarbiturates: ?200 ng/mL The results are to be used only for medical (i.e., treatment) purposes. Unconfirmed screening results must not be used for non-medical purposes (e.g., employment testing, legal testing). Lab Interpretation (test Abnormal code = 80986-0) [facility] FallsPHOSPHORUS2021-07-21 21:17:04 Test Item Value Reference Range Interpretation Comments PHOSPHORUS (test code = 9612338534) 5.3 mg/dL 2.5-5.0 H Lab Interpretation (test code = Abnormal 87661-5) [facility] FallsTOTAL IRON BINDING [id number] 21:11:47 Test Item Value Reference Range Interpretation Comments TIBC (test code = 8109087173) 329 ug/dL 250-410 % FE SAT (test code = 1446609297) 18 % 20-50 L Lab Interpretation (test code = Abnormal 66144-5) [facility] FallsPhosphorus [id number] 20:56:00 Test Item Value Reference Range Interpretation Comments PHOSPHORUS (test code = 2073336306) 5.3 mg/dL 2.5-5.0 H Lab Interpretation (test code = Abnormal 71309-2) [facility] FallsURIC [id number] 20:55:40 Test Item Value Reference Range Interpretation Comments URIC ACID (test code = 1336481648) 11.0 mg/dL 3.6-8.0 H Lab Interpretation (test code = Abnormal 77941-9) [facility] FallsIRON2021-07-21 20:55:24 Test Item Value Reference Range Interpretation Comments IRON (test code = 9420497856) 58 ug/dL 50-160 Lab Interpretation (test code = Normal 15353-5) [facility] FallsCREATININE, URINE [id number] 20:52:05 Test Item Value Reference Range Interpretation Comments CREAT U (test code = 3096655458) 131.8 mg/dL [facility] FallsSODIUM, URINE [id number] 20:36:37 Test Item Value Reference Range Interpretation Comments NA URINE (test code = 0994205013) 31 mmol/L [facility] FallsPOTASSIUM, URINE [id number] 20:36:37 Test Item Value Reference Range Interpretation Comments K URINE (test code = 0792407521) 24.0 mmol/L [facility] FallsURINALYSIS2021-07-21 20:22:33 Test Item Value Reference Range Interpretation Comments APPEARANCE (test code = Hazy Clear A 9817409278) COLOR (test code = Yellow Yellow 5049418355) PH (test code = 4.8-8.0 0668469721) SP GRAVITY (test code = 1.003-1.030 9324326197) GLU U QUAL (test code = 150 mg/dL Normal A 4012669589) BLOOD (test code = 1+ Negative A 3899895457) KETONES (test code = Negative Negative 1548073639) PROTEIN (test code = 500 mg/dL Negative A 2887-8) UROBILIN (test code = Normal Normal 0574375453) BILIRUBIN (test code = Negative Negative 7830657044) NITRITE (test code = Negative Negative 1286492487) LEUK MING (test code = Negative Negative 9869150590) RBC/HPF (test code = See_Comment [Autom ated message] 9747992836) The system [employer] generated this result transmit tianna reference range : 0 - 3 HPF. The refe rence range was not u sed to interpret th is result as normal/abnormal . WBC/HPF (test code = See_Comment [Autom ated message] 9168642379) The system [employer] generated this result transmit tianna reference range : 0 - 5 HPF. The refe rence range was not u sed to interpret th is result as normal/abnormal . BACTERIA (test code = Few Negative A 5756679133) MUCOUS (test code = Slight Negative LPF A 9130863305) AMORPHOUS (test code = Few Rare HPF A 9298791339) SQ EPITH (test code = HPF 4250292784) YEAST BUD (test code = See_Comment H [Aut omated message] 6471274911) The system [employer] generated this result transmit tianna reference range : <=1 HPF. The refere nce range was not u sed to interpret th is result as normal/abnormal . SPERM (test code = See_Comment [Automat ed message] 3606078562) The system [employer] generated this result transmit tianna reference range : <=1 HPF. The refere nce range was not u sed to interpret th is result as normal/abnormal . HYAL CAST (test code = See_Comment [Aut omated message] 3105664021) The system [employer] generated this result transmit tianna reference range : <=2 LPF. The refere nce range was not u sed to interpret th is result as normal/abnormal . Lab Interpretation (test Abnormal code = 15792-3) [facility] FallsCOVID-19 (ID NOW RAPID TESTING)2020-10-22 16:44:47 Test Item Value Reference Range Interpretation Comments SARS-CoV-2 Rapid ID NOW Not Detected Not Detected (test code = 09627-6) CANDY (test code = CANDY) ID NOW COVID-19 Assay is an isothermal nucleic acid amplification test intended for the qualitative detection of nucleic acid from SARS-CoV-2 viral RNA in nasopharyngeal (PRACTICE REPRESENTATIVE) specimens. It is used under Emergency Use Authorization (EUA) by FDA. The limit of detection (LOD) of the assay is 125 Genome Equivalents/mL. A positive result is indicative of the presence of SARS-CoV-2 RNA. ?Clinical correlation with patient history and other diagnostic information is necessary to determine patient infection status. A negative (Not Detected) result does not preclude SARS-CoV-2 infection. In patients with clinical symptoms and other tests that are consistent with SARS-CoV-2 infection, negative results should be treated as presumptive negative and a new specimen should be tested with alternative PCR molecular test. Invalid: Please collect a new specimen for repeat patient testing if clinically indicated. Lab Interpretation Normal (test code = 74444-9) [facility] FallsTROPONIN [id number] 16:31:45 Test Item Value Reference Interpretation Comments Range TROPONIN I (test 0.014 ng/mL See_Comment [Automated code = 6350736734) message] The system which generated this result transmitted reference range : <=0.034. The reference range was not used to interpret this result as normal/abnormal . CANDY (test code = Reference (Normal) CANDY) Range (defined by the 99th percentile reference limit): <= 0.034 ng/mL Note: Cardiac troponin begins to rise 3-4 hours after the onset of ischemia. Repeat in 4-6 hours if the sample was drawn within 3-4 hours of the onset of the symptom and found normal. Diagnosis of myocardial injury is made with acute changes in cTn concentrations with at least one serial sample above the 99th percentile upper reference limit (URL), taken together with the patient's clinical presentation. Biotin has been reported to cause a negative bias, interpret results relative to patient's use of biotin. Lab Interpretation Normal (test code = 94982-7) [facility] FallsMAGNESIUM2021-07-21 16:20:42 Test Item Value Reference Range Interpretation Comments MAGNESIUM (test code = 6332863392) 2.2 mg/dL 1.7-2.4 Lab Interpretation (test code = Normal 30346-1) [facility] FallsCOMP. METABOLIC PANEL (85560)2020-10-22 15:35:30 Test Item Value Reference Range Interpretation Comments NA (test code = 141 mmol/L 135-145 5825489522) K (test code = 4.0 mmol/L 3.5-5.0 1595035240) CL (test code = 104 mmol/L 98-108 1015881670) CO2 TOTAL (test code = 27 mmol/L 23-31 9227667855) AGAP (test code = 2-16 3114990132) BUN (test code = 80 mg/dL 7-23 H 2658723552) GLUCOSE (test code = 143 mg/dL 70-110 H 1333469716) CREATININE (test code = 6.40 mg/dL 0.60-1.25 H 0083538173) TOTAL BILI (test code = 0.4 mg/dL 0.1-1.3 8593166710) CALCIUM (test code = 9.4 mg/dL 8.6-10.6 7786202138) T PROTEIN (test code = 7.8 g/dL 6.3-8.2 5530865310) ALBUMIN (test code = 4.1 g/dL 3.5-5.0 1016974909) ALK PHOS (test code = 115 U/L 34-122 4736305527) ALTv (test code = 13 U/L 5-50 1742-6) AST(SGOT) (test code = 16 U/L 13-40 8427830227) eGFR (test code = mL/min/1.73m2 7354551509) CANDY (test code = CANDY) Association of Glomerular Filtration Rate (GFR) and Staging of Kidney Disease* + --+ --+ ------+| GFR (mL/min/1.73 m2) ?| With Kidney Damage ?| ?Without Kidney Damage+ --------+ --------+ +| ?>90 ?| ?Stage one ?| ? Normal ?+ ---+ ---+ -------+| ?60-89 ?| ?Stage two ?| ? Decreased GFR ? + --+ --+ ------+| ?30-59 ?| ?Stage three ?| ? Stage three ? + --+ --+ ------+| ?15-29 ?| ?Stage four ? | ? Stage four ?+ ---+ ---+ -------+| ?<15 (or dialysis) ? ?| ?Stage five ? | ? Stage five ?+ ---+ ---+ -------+ *Each stage assumes the associated GFR level has been in effect for at least three months. ?Stages 1 to 5, with or without kidney disease, indicate chronic kidney disease. Notes: Determination of stages one and two (with eGFR >59mL/min/1.73 m2) requires estimation of kidney damage for at least three months as defined by structural or functional abnormalities of the kidney, manifested by either:Pathological abnormalities or Markers of kidney damage (including abnormalities in the composition of the blood or urine or abnormalities in imaging tests). Lab Interpretation Abnormal (test code = 90409-2) [facility] WITH [id number] 15:26:32 Test Item Value Reference Range Interpretation Comments WBC (test code = See_Comment [Automated 6690-2) message] The sy stem which generated this result transmitted reference range : 4.20 - 10.70 10*3/?L. The reference range was not used to interpret this result as normal/abnormal . RBC (test code = See_Comment L [Automated 789-8) message] The sy stem which generated this result transmitted reference range : 4.26 - 5.52 10*6/?L. The reference range was not used to interpret this result as normal/abnormal . HGB (test code = 8.7 g/dL 12.2-16.4 L 718-7) HCT (test code = 26.4 % 38.4-49.3 L 4544-3) MCV (test code = 89.8 fL 81.7-95.6 787-2) MCH (test code = 29.6 pg 26.1-32.7 785-6) MCHC (test code = 33.0 g/dL 31.2-35.0 786-4) RDW-SD (test code = 43.7 fL 38.5-51.6 21154-4) RDW-CV (test code = 13.2 % 12.1-15.4 788-0) PLT (test code = See_Comment [Automated 777-3) message] The sy stem which generated this result transmitted reference range : 150 - 328 10*3/ ?L. The reference r mick was not used to interpret this result as normal/abnormal . MPV (test code = 10.2 fL 9.8-13.0 50542-4) NRBC/100 WBC (test See_Comment [Automat ed code = 6987087870) message] The system which generated this result transmitted reference range : 0.0 - 10.0 /100 WBCs. The refer ence range was not u sed to interpret th is result as normal/abnormal . NRBC x10^3 (test code <0.01 See_Comment [Auto mated = 4227542976) message] The s ystem which generated this result transmitted reference range : 10*3/?L. The reference range was not used to interpret this result as normal/abnormal . GRAN MAT (NEUT) % 71.3 % (test code = 770-8) IMM GRAN % (test code 0.40 % = 7370100901) LYMPH % (test code = 15.5 % 736-9) MONO % (test code = 9.0 % 5905-5) EOS % (test code = 3.3 % 713-8) BASO % (test code = 0.5 % 706-2) GRAN MAT x10^3(ANC) 5.77 10*3/uL 1.99-6.95 (test code = 2532027634) IMM GRAN x10^3 (test 0.03 10*3/uL 0.00-0.06 code = 0852884811) LYMPH x10^3 (test code 1.25 10*3/uL 1.09-3.23 = 731-0) MONO x10^3 (test code 0.73 10*3/uL 0.36-1.02 = 742-7) EOS x10^3 (test code = 0.27 10*3/uL 0.06-0.53 711-2) BASO x10^3 (test code 0.04 10*3/uL 0.01-0.09 = 704-7) Lab Interpretation Abnormal (test code = 57685-0) [facility]"
== END 2021-02-10 20:15 | disposition home or self-care (01) ==
LOC: ER 09:29
DX: T82.49XA Other complication of vascular dialysis catheter, initial encounter (principal); N18.6 End stage renal disease; Z99.2 Dependence on renal dialysis; E87.5 Hyperkalemia; I10 Essential (primary) hypertension; E11.9 Type 2 diabetes mellitus without complications; I50.9 Heart failure, unspecified; Z20.822 Contact with and (suspected) exposure to COVID-19
CPT/HCPCS: 92977; 93005; 85025; 80048; 36415; 83735; 85610; 80076; 84484; 83880; 71045; 96375; 96374; 99291; 99292; U0003; J1940; J2997

== ENCOUNTER 2021-02-11 11:23 | Emergency (ER) | payer OTHER ==
--- NOTE | 2021-02-11 11:52 | ER ---
Nurse's Notes [facility] Name: Wild Koenig Age: 55 yrs Sex: Male : 1965 Arrival Date: 02/11/2021 Time: 11:29 Bed 15 Private MD: Diagnosis: Dependence on renal dialysis-DIALYSIS CATH MALFUNCTION Presentation: 02/11 11:44 Chief complaint: EMS states: Pt. arrives from dialysis clinic and endorses jt3 light-headedness, headache, and elevated blood pressure. Per patient, the clinic was not able to use his dialysis catheter due to it collapsing. Alert and oriented x4. Airway patent on arrival. Past medical hx of HTN, diabetes, and CHF. Coronavirus screen: Vaccine status: Patient reports receiving the 2nd dose of the covid vaccine. Ebola Screen: Patient negative for fever greater than or equal to 101.5 degrees Fahrenheit, and additional compatible Ebola Virus Disease symptoms Patient denies exposure to infectious person. Patient denies travel to an Ebola-affected area in the 21 days before illness onset. Initial Sepsis Screen: Does the patient meet any 2 criteria? No. Patient's initial sepsis screen is negative. Does the patient have a suspected source of infection? No. Patient's initial sepsis screen is negative. Risk Assessment: Do you want to hurt yourself or someone else? Patient reports no desire to harm self or others. Onset of symptoms was February 11, 2021. 11:44 Method Of Arrival: EMS: [facility] jt3 11:44 Acuity: MYNOR 3 jt3 Historical: - Allergies: 11:46 No Known Allergies; jt3 - Home Meds: 11:46 gabapentin Oral [Active]; Hydroxyzine Oral [Active]; Wellbutrin Oral [Active]; jt3 Metformin Oral [Active]; lisinopril Oral [Active]; Insulin: Regular Sub-Q [Active]; Glipizide Oral [Active]; - PMHx: 11:46 Depression; Diabetes - NIDDM; Hypertension; jt3 - Immunization history:: Adult Immunizations up to date. - Social history:: Smoking status: Patient denies any tobacco usage or history of. - Family history:: not pertinent. Screenin:48 Abuse screen: Denies threats or abuse. Denies injuries from another. Nutritional jt3 screening: No deficits noted. Tuberculosis screening: No symptoms or risk factors identified. Fall Risk Fall in past 12 months (25 points). Assessment: 11:48 General: Appears in no apparent distress. Behavior is calm, cooperative. Pain: jt3 Complains of pain in face Pain began 1 hour ago. Neuro: Reports dizziness, since this morning. headache in entire. Cardiovascular: Rhythm is sinus rhythm. Respiratory: No deficits noted. 15:36 Reassessment: Patient appears in no apparent distress at this time. No changes from kd3 previously documented assessment. Patient and/or family updated on plan of care and expected duration. Pain level reassessed. 15:42 Reassessment: RN to transfer and pumphouse operatortransfer engineer at the [place] was given report on. kd3 16:44 Reassessment: Patient and/or family updated on plan of care and expected duration. Pain kd3 level reassessed. MARISABEL Barker was given RN to RN report at the [facility]. All questions answered. . Vital Signs: 11:44 BP 167 / 63; Pulse 64; Resp 17; Temp 98.2(O); Pulse Ox 99% on R/A; jt3 11:44 Weight 135.62 kg; Height 5 ft. 10 in. (177.80 cm); jt3 15:35 BP 158 / 71; Pulse 65; Resp 17; Pulse Ox 100% on R/A; kd3 16:53 BP 188 / 77; Pulse 60; Resp 18; Pulse Ox 98% on R/A; kd3 11:44 Body Mass Index 42.90 (135.62 kg, 177.80 cm) jt3 ED Course: 11:29 Patient arrived in ED. ds1 11:30 Mis Robertson MD is Attending Physician. ma2 11:38 Willie Robins, MARISABEL is Primary Nurse. jt3 11:46 Triage completed. jt3 11:46 Arm band placed on right wrist. jt3 11:48 Patient has correct armband on for positive identification. Bed in low position. Call jt3 light in reach. Side rails up X2. 11:48 No provider procedures requiring assistance completed. jt3 14:32 initiated transfer to [facility]. bd 14:46 faxed chart to [facility] as requested by Iram. bd 16:37 pt accepted in transfer to [facility] by Dr Mcclure, admit approval given by Britt Cash. Administered Medications: No medications were administered Outcome: 11:52 ER care complete, transfer ordered by . vazquez 17:59 Patient left the ED. [facility] 18:13 Transferred by ground EMS jt3 18:13 Condition: stable 18:13 Instructed on the need for transfer. Signatures: Iza Bojorquez Demi ds1 Ashley Arias 5 Mis Robertson MD MD ma2 Willie Robins RN RN jt3 Sophia Forte 3
--- NOTE | 2021-02-11 11:52 | EDPHYS ---
Physician Documentation [facility] Name: Wild Koenig Age: 55 yrs Sex: Male : 1965 Arrival Date: 02/11/2021 Time: 11:29 Bed 15 Private MD: ED Physician Mis Robertson HPI: 02/11 11:47 This 55 yrs old Male presents to ER via EMS with complaints of dialysis cath ma2 problem. 11:47 Onset: The symptoms/episode began/occurred gradually, 2 day(s) ago. Associated signs ma2 and symptoms: Pertinent negatives: swelling, bleeding at site. The patient has not experienced similar symptoms in the past. Patient has patient has ESRD, gets as needed dialysis, last dialysis was 7 days ago. He was sent here while by his PCP Dr. Russo, because also dialysis catheter is flowing, its slow and not compatible with hemodialysis. He was here yesterday, was evaluated and got discharged as the dialysis catheter was flowing. Patient would like to be transferred to [place]. He has no symptom at this time. He was seen at dialysis this morning. Flow through the catheter was slow. 11:[address] Arias this morning for possibility of replacing dialysis ma2 catheter. However he recommends that he is unable to do it due to challenges with anatomy and placing the catheter last time, and he recommended transfer for vascular surgeon. No vascular surgeon available transfer for higher level of care.. Historical: - Allergies: 11:46 No Known Allergies; jt3 - Home Meds: 11:46 gabapentin Oral [Active]; Hydroxyzine Oral [Active]; Wellbutrin Oral [Active]; jt3 Metformin Oral [Active]; lisinopril Oral [Active]; Insulin: Regular Sub-Q [Active]; Glipizide Oral [Active]; - PMHx: 11:46 Depression; Diabetes - NIDDM; Hypertension; jt3 - Immunization history:: Adult Immunizations up to date. - Social history:: Smoking status: Patient denies any tobacco usage or history of. - Family history:: not pertinent. ROS: 11:47 Constitutional: Negative for fever, chills, and weight loss. ma2 11:47 All other systems are negative. Exam: 11:47 Constitutional: This is a well developed, well nourished patient who is awake, alert, ma2 and in no acute distress. Head/Face: Normocephalic, atraumatic. Eyes: Pupils equal round and reactive to light, extra-ocular motions intact. Lids and lashes normal. Conjunctiva and sclera are non-icteric and not injected. Cornea within normal limits. Periorbital areas with no swelling, redness, or edema. ENT: Nares patent. No nasal discharge, no septal abnormalities noted. Tympanic membranes are normal and external auditory canals are clear. Oropharynx with no redness, swelling, or masses, exudates, or evidence of obstruction, uvula midline. Mucous membranes moist. Neck: Trachea midline, no thyromegaly or masses palpated, and no cervical lymphadenopathy. Supple, full range of motion without nuchal rigidity, or vertebral point tenderness. No Meningismus. Chest/axilla: Dialysis catheter, dialysis catheter normal chest wall appearance and motion. Nontender with no deformity. No lesions are appreciated. Cardiovascular: Regular rate and rhythm with a normal S1 and S2. No gallops, murmurs, or rubs. Normal PMI, no JVD. No pulse deficits. Respiratory: Lungs have equal breath sounds bilaterally, clear to auscultation and percussion. No rales, rhonchi or wheezes noted. No increased work of breathing, no retractions or nasal flaring. Abdomen/GI: Soft, non-tender, with normal bowel sounds. No distension or tympany. No guarding or rebound. No evidence of tenderness throughout. Back: No spinal tenderness. No costovertebral tenderness. Full range of motion. Skin: Warm, dry with normal turgor. Normal color with no rashes, no lesions, and no evidence of cellulitis. MS/ Extremity: Pulses equal, no cyanosis. Neurovascular intact. Full, normal range of motion. Neuro: Awake and alert, GCS 15, oriented to person, place, time, and situation. Cranial nerves II-XII grossly intact. Motor strength 5/5 in all extremities. Sensory grossly intact. Cerebellar exam normal. Normal gait. Vital Signs: 11:44 BP 167 / 63; Pulse 64; Resp 17; Temp 98.2(O); Pulse Ox 99% on R/A; jt3 11:44 Weight 135.62 kg; Height 5 ft. 10 in. (177.80 cm); jt3 15:35 BP 158 / 71; Pulse 65; Resp 17; Pulse Ox 100% on R/A; kd3 16:53 BP 188 / 77; Pulse 60; Resp 18; Pulse Ox 98% on R/A; kd3 11:44 Body Mass Index 42.90 (135.62 kg, 177.80 cm) jt3 MDM: 11:30 Patient medically screened. ma2 11:47 Differential diagnosis: Dialysis catheter with poor flow. Need to be replaced. Data ma2 reviewed: vital signs, nurses notes. Counseling: I had a detailed discussion with the patient and/or guardian regarding: the historical points, exam findings, and any diagnostic results supporting the discharge/admit diagnosis, the presence of at least one elevated blood pressure reading (>120/80) during this emergency department visit, the need for outpatient follow up. Response to treatment: the patient's symptoms have markedly improved after treatment. 16:01 ED course: i discussed with dr. graay, he accepted the patient to [facility] 02/11 11:34 Order name: Basic Metabolic Panel ak2 02/11 11:34 Order name: CBC with Diff ak2 02/11 11:34 Order name: Hepatic Function; Complete Time: 15:29 [facility] 02/11 11:34 Order name: PT-INR; Complete Time: 15:29 [facility] 02/11 11:34 Order name: Basic Metabolic Panel; Complete Time: 15:29 [facility] 02/11 11:34 Order name: CBC with Automated Diff; Complete Time: 15:29 [facility] 02/11 11:34 Order name: IV Saline Lock; Complete Time: 13:59 [facility] 02/11 11:34 Order name: Labs collected and sent; Complete Time: 13:59 [facility] 02/11 17:23 Order name: Diet Renal; Complete Time: 17:23 bd Administered Medications: No medications were administered Disposition Summary: 02/11/21 11:52 Transfer Ordered Transfer Location: [facility] ma2 Reason: Higher level of care ma2 Condition: Stable ma2 Problem: new ma2 Symptoms: are unchanged ma2 Accepting Physician: Dr. Kali Sullivan(02/11/21 17:59) mh5 Diagnosis - Dependence on renal dialysis - DIALYSIS CATH MALFUNCTION ma2 Forms: - Medication Reconciliation Form ma2 - SBAR form ma2 Signatures: Dispatcher [employer] Griffin Cuellar PA PA [id number] Ashley Arias mh5 Mis Robertson MD MD ma2 Willie Robins RN RN jt3 Corrections: (The following items were deleted from the chart) 16:00 11:52 [facility] shayla2 ma2 17:59 16:00 Dr. Kali Sullivan ak2 mh5
[2021-02-11 13:47] LABS: Hematocrit 37.8 % (39.6-49.0); RBC Red Blood Cell Count 4.22 M/uL (4.33-5.43)
[2021-02-11 13:48] LABS: Absolute Lymphocytes (CBC) 1.2 K/uL (0.7-4.9); Basophils % 1.2 % (0-1.3); Lymphocytes % 18.7 % (15.3-44.8); MPV 8.3 fL (7.6-11.3)
[2021-02-11 13:50] LABS: Protime INR 0.97
[2021-02-11 14:06] LABS: Albumin 3.1 g/dL (3.4-5.0); Bilirubin Direct 0.1 mg/dL (0-0.2); Bilirubin Total 0.2 mg/dL (0.2-1.0); Potassium 4.9 mmol/L (3.5-5.1); Protein, Total 7.3 g/dL (6.4-8.2)
[2021-02-11 18:04] VITALS: TEMP 98.2
[2021-02-11 18:07] VITALS: BP 188/77; O2SAT 98
--- OUTSIDE RECORDS SUMMARY | 2021-02-14 19:10 | XMS REPORT | Continuity of Care Document ---
:1965 Author Organization [facility] t Address [address] [place] [address] Care Team Providers Name Role Phone Rebecca Hubbard DO Attending Clinician Desiree ECHAVARRIA Attending Clinician Desiree ECHAVARRIA Admitting Clinician Problems Condition Condition Condition Status Onset Resolution Last Treating Co mments Source Name Details Category Date Date Treatment Clinician Date Acute on Acute on Disease Active Unive rs chronic chronic 10-22 ity of renal renal 00:00: [place] insufficie insufficie 00 Me dical [facility] Branch Alcohol Alcohol Disease Active [...] Active Univers ALLERGIE Class ity of S [facility] Social History Social Habit Start Date Stop Date Quantity Comments Source Exposure to Not sure [facility] SARS-CoV-2 (event) Medica l Branch Sex Ass[birth year] At [birth year] [facility] 00:00:00 00:00:00 Medical Branch Smoking Status Start Date Stop Date Source Unknown if ever smoked [facility] Medications Ordered Filled Start Stop Current Ordering Indication Dosage Frequency Signature Comments Components Source Medication Medication Date Date Medication? Clinician (SIG) Name Name calcitrioL 2020- No [id number] .5ug Take 1 Univers 0.5 mcg 10-24 capsule by ity o f capsule 00:00: 04:59 mouth [place] 00 :00 daily for Medical 30 days. Branch amLODIPine 2020- No [id number] 5mg Take 1 Univers 5 mg tablet [...] Units ity of INSULIN 23:01: under the [place] ASPART SC 32 skin 2 Medical (two) Branch times daily with meals. ARIPiprazol Yes 5mg Take 5 mg U nivers e (ABILIFY) 7-22 by mouth ity of 5 mg tablet 23:01: daily. [address] Branch aspirin 81 0 Yes 81mg Take 81 mg U nivers mg chewable 7-22 by mouth ity of tablet 23:01: daily. [address] Branch atorvastati 0 Yes 40mg Take 40 mg Univers n 40 mg 7-22 by mouth ity of tablet 23:01: at [place] [address] bedtime. Medical Branch buPROPion 0 Yes 300mg Take 300 Uni vers XL 300 mg 7-22 mg by ity of 24 hr 23:01: mouth [place] tablet 31 daily. Medical Branch carvediloL Yes 25mg Take 25 mg U nivers 25 mg 7-22 by mouth 2 ity of tablet 23:01: (two) [place] [address] times Medical daily with Branch meals. citalopram Yes 40mg Take 40 mg U nivers 40 mg 7-22 by mouth ity of tablet 23:01: daily. [address] Branch vitamin 0 Yes 1000ug Take 1,000 Un desiree B-12 1,000 7-22 mcg by ity of mcg tablet 23:01: mouth [place] [address] daily. Medical Branch ferrous 0 Yes 324mg Take 324 Unive rs gluconate 7-22 mg by ity of 324 mg 23:01: mouth 2 [place] (37.5 mg 31 (two) Medical iron) times Branch tablet daily. furosemide Yes 80mg Take 80 mg U nivers 80 mg 7-22 by mouth 2 ity of tablet 23:01: (two) [place] [address] times Medical daily. Branch calcitrioL 2020- No .5ug Take 0.5 Un desiree 0.25 mcg - 07-22 mcg by ity of capsule 20:02: 00:00 mouth [place] 43 :00 daily. Medical Branch ergocalcife 0 2020- No [id number] Take Uni vers rol, 7-22 07-22 50,000 ity of vitamin d2, 20:02: 00:00 Units by [place] 1,250 mcg 43 :00 mouth Medical (50,000 weekly. Branch unit) capsule Sliding Yes Subcutaneo Univ ers Scale 10-23 us, TID ity of Insulin - 17:00: MEALS+HS, [place] as Lispro 00 First dose Medical (HumaLOG) + on [facility] Branch Fsbg 10/23/20 at Testing 1200, Until Discontinu ed, Routine insulin Yes 33U 33 Units, Unive rs glargine 10-23 Subcutaneo ity o f (LANTUS 15:30: us, BID, [place] U-100) 00 First dose Medical injection on [facility] 33 Units 10/23/20 at 1030, Until Discontinu ed, Routine buPROPion Yes 300mg 300 mg, Univ ers XL 10-23 Oral, ity of (WELLBUTRIN 14:00: DAILY, [place] XL) tablet 00 First dose Med ical 300 mg on [facility] 10/23/20 at 0900, Until Discontinu ed, Routine aspirin Yes 81mg 81 mg, Univers chewable 10-23 Oral, ity of tablet 81 14:00: DAILY, [place] mg 00 First dose Medical on [facility] 10/23/20 at 0900, Until Discontinu ed, Routine ARIPiprazol Yes 5mg 5 mg, Unive rs e (ABILIFY) 10-23 Oral, ity of tablet 5 mg 14:00: DAILY, [place] 00 First dose Medical on [facility] 10/23/20 at 0900, Until Discontinu ed, Routine vitamin Yes 1000ug 1,000 mcg, Un desiree B-12 10-23 Oral, ity of (CYANOCOBAL 14:00: DAILY, [place] LINK) 00 First dose Medical tablet on [facility] 1,000 mcg 10/23/20 at 0900, Until Discontinu ed, Routine ergocalcife Yes [id number] 50,000 Un desiree rol 10-23 Units, ity of (vitamin 14:00: Oral, [place] d2) 00 QWEEKLY, Medical (CALCIFEROL First dose Br anch ) capsule on [place] 50,000 10/23/20 at Units 0900, Until Discontinu ed, Routine citalopram Yes 40mg 40 mg, Unive rs (CELEXA) 10-23 Oral, ity of tablet 40 14:00: DAILY, [place] mg 00 First dose Medical on [facility] 10/23/20 at 0900, Until Discontinu ed, Routine cholecalcif 0 Yes 5000U 5,000 Univ ers jake 10-23 Units, ity of (vitamin 14:00: Oral, [place] D3) tablet 00 DAILY, Medical 5,000 Units First dose Br anch on [facility] 10/23/20 at 0900, Until Discontinu ed calcitrioL Yes .5ug 0.5 mcg, Uni vers (ROCALTROL) 10-23 Oral, ity of capsule 0.5 14:00: DAILY, [place] mcg 00 First dose Medical on [facility] 10/23/20 at 0900, Until Discontinu ed, Routine traMADoL Yes 50mg 50 mg, Univers (ULTRAM) 10-23 Oral, ity of tablet 50 10:16: Q6HPRN, [place] mg 54 Starting Medical [facility] 10/23/20 at 0516, Until Discontinu ed, Routine, Pain (scale 4-6) amLODIPine Yes 5mg 5 mg, Univer s (NORVASC) 10-23 Oral, ity of tablet 5 mg 04:00: DAILY, [place] 00 First dose Medical on [facility] 10/22/20 at 2300, Until Discontinu ed, Routine [...] First dose [place] 00 on [facility] 10/22/20 at Branch 2100, Until Discontinu ed, Routine gabapentin 2021-0 Yes 300mg 300 mg, Uni vers (NEURONTIN) 10-23 Oral, TID, it y of capsule 300 01:00: First dose [place] mg 00 on [facility] 10/22/20 at [place] 1999, Until Discontinu ed, Routine furosemide Yes 80mg 80 mg, Unive rs (LASIX) 10-23 Oral, BID, ity of tablet 80 01:00: First dose [place] mg 00 on Tue [facility] 10/22/20 at [place] 1999, Until Discontinu ed, Routine ferrous Yes 325mg 325 mg, Univer s sulfate 10-23 Oral, BID, ity of tablet 325 01:00: First dose [place] mg 00 on [facility] 10/22/20 at [place] 1999, Until Discontinu ed ergocalcife Yes [id number] 50753K Take 1 Univers rol, 10-23 capsule by ity of vitamin d2, 00:00: mouth [place] 1,250 mcg 00 weekly. Medical (50,000 Branch unit) capsule D5W IV Yes [id number] 1000mL at 50 Uni vers infusion 10-22 mL/hr, IV ity of 1,000 mL 22:15: Infusion, [place] 00 CONTINUOUS Medical , Starting Branch [facility] 10/22/20 at 1715, Until Discontinu ed, Routine thiamine 2020- No [id number] 200mg IV Uni vers (VITAMIN 10-22 Piggyback, ity of B1) 200 mg 22:15: 22:45 ONCE, 1 [place] as in NaCl 00 :00 dose, [facility] 0.9% (NS) 10/22/20 at [facility] piggyback 1715, 50 mL carvediloL Yes 25mg 25 mg, Unive rs (COREG) 10-22 Oral, BID ity of tablet 25 22:00: MEALS, [place] mg 00 First dose Medical on [facility] 10/22/20 at 1700, Until Discontinu ed, Routine insulin Yes 11U 11 Units, Unive rs lispro 10-22 Subcutaneo ity of (human) 21:30: us, BIDAC, [place] (HumaLOG 00 First dose Medic al U-100) on Tue [place] injection 10/22/20 at 11 Units 1630, Until Discontinu ed traZODone Yes 100mg 100 mg, Univ ers (DESYREL) 10-22 Oral, ity of tablet 100 19:23: QHSPRN, [place] mg 13 Starting Medical Wed Branch 10/22/20 at 1423, Until Discontinu ed, Routine, Insomnia heparin Yes 5000U 5,000 Univers (porcine) 10-22 Units, ity of injection 19:00: Subcutaneo [place] 5,000 Units 00 us, Q8H, [facility] amber First dose Branch on Tue10/22/20 at 1400, Until Discontinu ed, Routine ondansetron Yes 4mg 4 mg, Slow Univers (ZOFRAN 10-22 IV Push, ity of (PF)) 17:49: Q6HPRN, [place] injection 4 47 Starting Medi amber mg [facility] Branch 10/22/20 at 1249, Until Discontinu ed, Routine, Nausea and Vomiting (N/V) acetaminoph Yes 650mg 650 mg, Un desiree en 10-22 Oral, ity of (TYLENOL) 17:49: Q6HPRN, [place] tablet 650 38 Starting Medic al mg [facility] 10/22/20 at 1249, Until Discontinu ed, Routine, Pain (scale 1-3) Immunizations Ordered Filled Immunization Date Status Comments [facility] e Immunization Name Name Zoster Vaccine 2020-08-07 Completed [facility] 00:00:00 [facility] [place] [facility] SARS-COV-2 COVID-19 2020-06-13 Completed [facility] PFIZER VACCINE 00:00:00 [facility] Pneumococcal 13 2020-04-18 Completed Universit y of Conjugate, PCV13 00:00:00 [facility] (Prevnar 13) [place] Influenza Virus 2019-12-27 Completed Universit y of Vaccine Quad IM 3+ 00:00:00 [facility] Influenza Virus 2019-05-05 Completed Universit y of Vaccine 00:00:00 [facility] [place] [facility] TDAP 2017-05-11 Completed University of 00:00:00 [facility] [place] [facility] Influenza Virus 2014-12-26 Completed Universit y of Vaccine 00:00:00 [facility] [place] [facility] Influenza Virus 2014-12-26 Completed Universit y of Vaccine (3+ yrs) 00:00:00 [facility] [place] Vital Signs Vital Name Observation Time Observation Value Comments Source Systolic blood 2020-10-23 21:02:00 94 mm[Hg] Univer [facility]ity of [facility] Diastolic blood 2020-10-23 21:02:00 67 mm[Hg[facility] 2020-10-23 21:02:00 59 /min [facility] Body temperature 2020-10-23 21:02:00 36.56 Madalyn [facility] Respiratory rate 2020-10-23 21:02:00 13 /min [facility] Oxygen saturation in 2020-10-23 21:02:00 94 /min [facility] Arterial blood by [facility] Pulse oximetry [place] Body height 2020-10-22 20:03:00 177.8 cm [facility] Body weight 2020-10-22 20:03:00 140.615 kg [facility] BMI 2020-10-22 20:03:00 44.48 kg/m2 [facility] Procedures Procedure Date / Time Performing Clinician Source Performed MAGNESIUM 2020-10-23 09:20:00 Eduarod Ramírez [facility] BASIC METABOLIC PANEL (NA, 2020-10-23 09:20:00 Eduardo Ramírez [facility] K, CL, CO2, GLUCOSE, BUN, Medica l Branch CREATININE, CA) CBC WITH DIFF 2020-10-23 09:20:00 Froylan Ramírezlani [facility] POCT GLUCOSE (AUTOMATED) 2020-10-23 00:59:00 Eduardo Ramírez [facility] XR CHEST 2 VW 2020-10-23 00:43:19 [facility] RETROPERITONEAL 2020-10-22 23:18:55 Jojo Madrigal [facility] COMPLETE [facility] FERRITIN SERUM 2020-10-22 21:56:00 Kaitlin [facility] TOTAL IRON BINDING 2020-10-22 21:56:00 Kaitlin [facility] CAPACITY [facility] THYROID STIMULATING 2020-10-22 21:56:00 Kaitlin [facility] HORMONE [facility] INTACT PTH CALCIUM GROUP 2020-10-22 21:56:00 Jojo Madrigal [facility] HEPATITIS B SURFACE 2020-10-22 21:56:00 [facility] ANTIBODY [facility] HEPATITIS B SURFACE 2020-10-22 21:56:00 [facility] ANTIGEN [facility] HBC ANTIBODY (IGM & IGG) 2020-10-22 21:56:00 Jojo Madrigal [facility] N-TERMINAL PRO-BNP 2020-10-22 21:56:00 [facility] VIT[facility] D, 25-OH 2020-10-22 21:56:00 Kaitlin [facility] POCT GLUCOSE (AUTOMATED) 2020-10-22 21:37:00 Eduardo Ramírez [facility] URINE DRUG (IMMUNOASSAY) - 2020-10-22 19:35:00 Meg Stinson [facility] COMPREHENSIVE DR[facility] SCREEN [facility] GLYCOS[facility]ATED HEMOGLOBIN 2020-10-22 19:35:00 Meg Stinson [facility] (A1C) [facility] OSMOLALITY URINE 2020-10-22 19:31:00 Kaitlin [facility] URINALYSIS 2020-10-22 19:31:00 Rebecca Hubbard [facility] VITAMIN D, 25-OH 2020-10-22 19:31:00 Eduardo Ramírez [facility] CREATININE, URINE RANDOM 2020-10-22 19:31:00 Jojo Madrigal [facility] TOTAL PROTEIN, URINE 2020-10-22 19:31:00 Jojo Madrigal [facility] POTASSIUM, URINE RANDOM 2020-10-22 19:31:00 Kaitlin [facility] SODIUM, URINE RANDOM 2020-10-22 19:31:00 [facility] PHOSPHORUS 2020-10-22 19:30:00 Eduardo Ramírez [facility] CREATINE KINASE 2020-10-22 19:30:00 Kaitlin, Brigani [facility] URIC ACID 2020-10-22 19:30:00 Desiree [facility] FERRITIN SERUM 2020-10-22 19:30:00 Desiree [facility] IRON 2020-10-22 19:30:00 Desiree [facility] TOTAL IRON BINDING 2020-10-22 19:30:00 [facility] 2020-10-22 19:30:00 Eduardo Ramírez [facility] HB ECG ROUTINE & RHYTHM 2020-10-22 16:16:29 [facility] (ID NOW RAPID 2020-10-22 16:12:00 [facility] Medical Branch PHOSPHORUS 2020-10-22 15:15:00 Jojo Madrigal [facility] MAGNESIUM 2020-10-22 15:15:00 Rebecca Hubbard [facility] TROPONIN I 2020-10-22 15:15:00 Rebecca Hubbard [facility] COMP. METABOLIC PANEL 2020-10-22 15:15:00 Rebecca Hubbard [facility] ([id number]) [facility] CBC WITH DIFF 2020-10-22 15:15:00 Rebecca Hubbard [facility] NOTICE OF PRIVACY 2020-10-22 14:39:44 Doctor Unassigned, [facility] PRACTICES [place] [facility] CONSENT/REFUSAL FOR 2020-10-22 14:37:51 Doctor Unassigned, [facility] DIAGNOSIS AND TREATMENT [place] [facility] Encounters Start End Encounter Admission Attending Care Care Encounter Source Date/Time Date/Time Type Type Clinicians Facility Department ID 2020-10-22 2020-10-23 Emergency Rebecca Hubbard [facility] [id number] [facility] 09:47:00 17:45:00 Eduardo Ramírez [id number] [facility] [id number] [facility] [id number] [place] [id number] Branch 2020-10-22 2020-10-22 Emergency X [facility] ERT [id number] Univers 09:37:00 09:37:00 [facility] Results Test Description Test Time Test Comments Results Result Comments Source INTACT PTH CALCIUM GROUP 2020-10-23 15:40:51 Test Item Value Reference Range Interpretation Comme nts PTH-INTACT (test code = 174.9 pg/mL 12.0-88.0 H 4600225207) PTH-CA Interpretation (test code = Further clinical data [id number]) needed for inte rpretation. CALCIUM (test code = 4221187149) 9.1 mg/dL 8.6-10.6 Lab Interpretation (test code = Abnormal 24517-0) [facility] [id number] 15:40:50 Test Item Value Reference Range Interpretation Comments PTH-INTACT (test code = 207.3 pg/mL 12.0-88.0 H 5351045060) PTH-CA Interpretation Furthe r clinical (test code = 5600899111) romi a needed for interpretation. CALCIUM (test code = 9.2 mg/dL 8.6-10.6 2778190920) Lab Interpretation (test Abnormal code = 77292-5) [facility] (NA, K, CL, CO2, GLUCOSE, BUN, CREATININE, CA)2020-10-23 11:42:35 Test Item Value Reference Range Interpretation Comments NA (test code = 142 mmol/L 135-145 4846009713) K (test code = 3.8 mmol/L 3.5-5.0 6817985812) CL (test code = 106 mmol/L 98-108 7256964182) CO2 TOTAL (test code = 27 mmol/L 23-31 4773190449) AGAP (test code = 2-16 5262158405) BUN (test code = 76 mg/dL 7-23 H 7163563788) GLUCOSE (test code = 193 mg/dL 70-110 H 5351513327) CREATININE (test code = 6.07 mg/dL 0.60-1.25 H 0013417630) CALCIUM (test code = 9.1 mg/dL 8.6-10.6 8009521171) eGFR (test code = mL/min/1.73m2 1686312433) CANDY (test code = CNADY) Association of Glomerular Filtration Rate (GFR) and [...] tests). Lab Interpretation Abnormal (test code = 01050-8) [facility]ano[facility] [id number] 11:42:35 Test Item Value Reference Range Interpretation Comments MAGNESIUM (test code = 3609130901) 2.3 mg/dL 1.7-2.4 Lab Interpretation (test code = Normal 01557-4) [facility] with [id number] 11:10:11 Test Item Value Reference Range Interpretation Comments WBC (test code = See_Comment [Automated 6590-2) message] The sy stem which generated this result transmitted reference range : 4.20 - 10.70 10*3/?L. The reference range was not used to interpret this result as normal/abnormal . RBC (test code = See_Comment L [Automated 429-8) message] The sy stem which generated this [...] RDW-SD (test code = 45.0 fL 38.5-51.6 03099-8) RDW-CV (test code = 13.4 % 12.1-15.4 788-0) PLT (test code = See_Comment [Automated 777-3) message] The sy stem which generated this result transmitted reference range : 150 - 328 10*3/ ?L. The reference r mick was not used to interpret this result as normal/abnormal . MPV (test code = 10.6 fL 9.8-13.0 92818-0) NRBC/100 WBC (test See_Comment [Automat ed code = 5013788331) message] The system which generated this result transmitted reference range : 0.0 - 10.0 /100 WBCs. The refer ence range was not u sed to interpret th is result as normal/abnormal . NRBC x10^3 (test code <0.01 See_Comment [Auto mated = 7085970539) message] The s ystem which generated this result transmitted reference range : 10*3/?L. The reference range was not used to interpret this result as normal/abnormal . GRAN MAT (NEUT) % 67.1 % (test code = 770-8) IMM GRAN % (test code 0.30 % = 7193964240) LYMPH % (test code = 21.3 % 736-9) MONO % (test code = 7.6 % 5905-5) EOS % (test code = 3.3 % 713-8) BASO % (test code = 0.4 % 706-2) GRAN MAT x10^3(ANC) 5.36 10*3/uL 1.99-6.95 (test code = 1835383688) IMM GRAN x10^3 (test <0.03 0.00-0.06 code = 4821496268) LYMPH x10^3 (test code 1.70 10*3/uL 1.09-3.23 = 731-0) MONO x10^3 (test code 0.61 10*3/uL 0.36-1.02 = 742-7) EOS x10^3 (test code = 0.26 10*3/uL 0.06-0.53 711-2) BASO x10^3 (test code 0.03 10*3/uL 0.01-0.09 = 704-7) Lab Interpretation Abnormal (test code = 66628-1) [facility]AUTOMATED)2020-10-23 05:54:27 Test Item Value Reference Range Interpretation Comments POCT GLU (test code = 0203492795) 218 mg/dL 70-110 H Lab Interpretation (test code = Abnormal 28666-1) [facility]ano[facility]IT[facility]IN D, [id number] 05:11:32 Test Item Value Reference Range Interpretation Comments VIT D 25OH (test code = 46 ng/mL 25-80 33550-9) CANDY (test code = CANDY) Deficiency: <20 ng/mLInsufficiency : 20-24 ng/mLOptimal: 25-80 ng/mL Lab Interpretation (test Normal code = 84735-5) [facility] B Core Antibody, [id number] 05:11:12 Test Item Value Reference Range Interpretation Comments HBC (test code = 6543543846) Negative HBC Semi-Quantitative (test code = 3071938124) [facility] B SURFACE [id number] 05:11:12 Test Item Value Reference Range Interpretation Comments HBsAB (test code = Negative 8963371701) HBsAb mIU/mL Semi-Quantitative (test code = 7553087270) CANDY (test code = Interpretation: CANDY) ?Hepatitis B Surface Antibody ? Negative - Patient is considered to be not immune to infection with HBV. ? ? Positive - Anti-HBs detected at greater than or equal to 12 mIU/mL. ?Patient is considered to be immune to infection with HBV. ? [facility]anoHEPATITIS B SURFACE [id number] 04:53:21 Test Item Value Reference Range Interpretation Comments HBsAg Semi-Quantitative (test code = Negative Negative 5195-3) [facility]anoTOTAL PROTEIN, URINE [id number] 03:14:16 Test Item Value Reference Range Interpretation Comments T. PROT U (test code = 2888-6) 743 mg/dL [facility] PlanoXR CHEST 2 [id number] 02:58:28Impression: Nodular opacity overlying the left upper [...] prior studies for comparison.RL: 460End of Report UnB[facility]vinePOCT GLUCOSE (AUTOMATED)2020-10-23 01:11:29 Test Item Value Reference Range Interpretation Comments POCT GLU (test code = 6505046644) 143 mg/dL 70-110 H Lab Interpretation (test code = Abnormal 81784-6) [facility] PlanoOSMOLALITY [id number] 00:56:19 Test Item Value Reference Range Interpretation Comments OSMO U (test code = See_Comment [Automa tianna message] 9843776011) The system Druidly generated this result transmitted ref erence range: 50-1,100 mOsm/kg. The re ference range was not u sed to interpret this result as normal/abnor mal. Lab Interpretation (test Normal code = 01789-4) [facility]anoVITAMIN D, [id number] 00:10:49 Test Item Value Reference Range Interpretation Comments VIT D 25OH (test code = 39 ng/mL 25-80 27973-4) CANDY (test code = CANDY) Deficiency: <20 ng/mLInsufficiency : 20-24 ng/mLOptimal: 25-80 ng/mL Lab Interpretation (test Normal code = 08462-9) [facility] PlanoFERRITIN [id number] 23:38:41 Test Item Value Reference Range Interpretation Comments FERRITIN (test code = 51.5 ng/mL 18.0-464.0 8008910309) CANDY (test code = CANDY) Biotin has been reported to cause a negative bias, interpret results relative to patient's use of biotin. Lab Interpretation (test Normal code = 13360-9) [facility] PlanoTHYROID STIMULATING [id number] 23:34:40 Test Item Value Reference Range Interpretation Comments TSH (test code = See_Comment [Automated message] 9690762282) The system Druidly generated this result transmitted ref erence range: 0.45 - 4 .70 mIU/L. The refe rence range was not u sed to interpret this result as normal/abnor mal. Lab Interpretation (test Normal code = 61759-1) [facility] PlanoN-TERMINAL [id number] 23:12:53 Test Item Value Reference Range Interpretation Comments NT-proBNP (test code 592 pg/mL See_Comment H [Autom ated = 0238497259) message] The system which generated this result transmitted reference range : <=125. The reference range was not used to interpret this result as normal/abnormal . CANDY (test code = CANDY) Biotin has been reported to cause a negative bias, interpret results relative to patient's use of biotin. Lab Interpretation Abnormal (test code = 52388-3) [facility] PlanoTOTAL IRON BINDING [id number] 23:12:53 Test Item Value Reference Range Interpretation Comments TIBC (test code = 6919225263) 326 ug/dL 250-410 Lab Interpretation (test code = Normal 65232-4) [facility] PlanoGLYCOSYLATED HEMOGLOBIN (A1C)2020-10-22 22:38:18 Test Item Value Reference Range Interpretation Comments HGB A1C (test code = 7.0 % 4.0-5.7 H 4548-4) CANDY (test code = CANDY) Reference RangesNormal: <5.7%Prediabetes: 5.7 - 6.4%Diabetes: > 6.5% Lab Interpretation (test Abnormal code = 63709-0) [facility] PlanoCREATINE [id number] 21:46:35 Test Item Value Reference Range Interpretation Comments CK (test code = 5731886455) 122 U/L 33-194 Lab Interpretation (test code = Normal 14598-4) [facility] [facility] [place] [id number] 21:38:35 Test Item Value Reference Range Interpretation Comments FERRITIN (test code = 51.8 ng/mL 18.0-464.0 7218667154) CANDY (test code = CANDY) Biotin has been reported to cause a negative bias, interpret results relative to patient's use of biotin. Lab Interpretation (test Normal code = 14688-9) [facility] [id number] 21:37:33 Test Item Value Reference Range Interpretation Comments AMPHET (test code = Negative Negative 5423872980) VIDAL U (test code = Negative Negative 8195806311) BENZO U (test code = Negative Negative 2788780533) Cocaine Metabolite (test Presumptive Positive Negative A code = 9699106863) METHADONE (test code = Negative Negative 9427857941) OPIATES (test code = Negative Negative 3332750516) PCP (test code = Negative Negative 8555448118) THC (test code = Negative Negative 9995987182) CANDY (test code = CANDY) Urine Drug [...] testing). Lab Interpretation (test Abnormal code = 13624-6) [facility] [place]21-[facility] 21:17:04 Test Item Value Reference Range Interpretation Comments PHOSPHORUS (test code = 0464249695) 5.3 mg/dL 2.5-5.0 H Lab Interpretation (test code = Abnormal 48051-9) [facility] [place] IR[place] BINDING [id number] 21:11:47 Test Item Value Reference Range Interpretation Comments TIBC (test code = 1324866090) 329 ug/dL 250-410 % FE SAT (test code = 5762410727) 18 % 20-50 L Lab Interpretation (test code = Abnormal 55672-7) [facility] [place]Phosph[facility] [id number] 20:56:00 Test Item Value Reference Range Interpretation Comments PHOSPHORUS (test code = 1554014910) 5.3 mg/dL 2.5-5.0 H Lab Interpretation (test code = Abnormal 34157-9) [facility] [place]URIC [id number] 20:55:40 Test Item Value Reference Range Interpretation Comments URIC ACID (test code = 4636952630) 11.0 mg/dL 3.6-8.0 H Lab Interpretation (test code = Abnormal 00035-2) [facility] [place] 20:55:24 Test Item Value Reference Range Interpretation Comments IRON (test code = 7501240613) 58 ug/dL 50-160 Lab Interpretation (test code = Normal 13749-6) [facility] [place]CREAT[facility], URINE [id number] 20:52:05 Test Item Value Reference Range Interpretation Comments CREAT U (test code = 8678176115) 131.8 mg/dL [facility] [place]SODI[place], URINE [id number] 20:36:37 Test Item Value Reference Range Interpretation Comments NA URINE (test code = 6850825051) 31 mmol/L [facility] [place]POTASSIUM, URINE [id number] 20:36:37 Test Item Value Reference Range Interpretation Comments K URINE (test code = 2948311690) 24.0 mmol/L [facility] [place]URINALYSIS2021-07-21 20:22:33 Test Item Value Reference Range Interpretation Comments APPEARANCE (test code = Hazy Clear A 2088497692) COLOR (test code = Yellow Yellow 9483763001) PH (test code = 4.8-8.0 9989210900) SP GRAVITY (test code = 1.003-1.030 5997295782) GLU U QUAL (test code = 150 mg/dL Normal A 6190110915) BLOOD (test code = 1+ Negative A 9353325669) KETONES (test code = Negative Negative 6907387951) PROTEIN (test code = 500 mg/dL Negative A 2887-8) UROBILIN (test code = Normal Normal 3333666780) BILIRUBIN (test code = Negative Negative 6200109903) NITRITE (test code = Negative Negative 1601994745) LEUK MING (test code = Negative Negative 5021956321) RBC/HPF (test code = See_Comment [Autom ated message] 7107117028) The system [employer] generated this result transmit tianna reference range : 0 - 3 HPF. The refe rence range was not u sed to interpret th is result as normal/abnormal . WBC/HPF (test code = See_Comment [Autom ated message] 9465247320) The system [employer] generated this result transmit tianna reference range : 0 - 5 HPF. The refe rence range was not u sed to interpret th is result as normal/abnormal . BACTERIA (test code = Few Negative A 5277239039) MUCOUS (test code = Slight Negative LPF A 9653789353) AMORPHOUS (test code = Few Rare HPF A 2227336683) SQ EPITH (test code = HPF 2880249198) YEAST BUD (test code = See_Comment H [Aut omated message] 2599114412) The system [employer] generated this result transmit tianna reference range : <=1 HPF. The refere nce range was not u sed to interpret th is result as normal/abnormal . SPERM (test code = See_Comment [Automat ed message] 4921733800) The system [employer] generated this result transmit tianna reference range : <=1 HPF. The refere nce range was not u sed to interpret th is result as normal/abnormal . HYAL CAST (test code = See_Comment [Aut omated message] 6014056266) The system [employer] generated this result transmit tianna reference range : <=2 LPF. The refere nce range was not u sed to interpret th is result as normal/abnormal . Lab Interpretation (test Abnormal code = 67766-6) [facility] [place]OVID[facility] (ID NOW RAPID TESTING)2020-10-22 16:44:47 Test Item Value Reference Range Interpretation Comments SARS-CoV-2 Rapid ID NOW Not Detected Not Detected (test code = 83631-4) CANDY (test code = CANDY) ID NOW COVID-19 Assay is an isothermal nucleic acid amplification test intended for the qualitative detection of nucleic acid from SARS-CoV-2 viral RNA in nasopharyngeal ([employer]) specimens. It is used under Emergency Use [...] indicated. Lab Interpretation Normal (test code = 59949-6) [facility] [place]TROP[place] [id number] 16:31:45 Test Item Value Reference Interpretation Comments Range TROPONIN I (test 0.014 ng/mL See_Comment [Automated code = 9362325690) message] The system which generated this result [...] biotin. Lab Interpretation Normal (test code = 47701-2) [facility] [place]MAGN[facility]UM2021-07-21 16:20:42 Test Item Value Reference Range Interpretation Comments MAGNESIUM (test code = 6622923095) 2.2 mg/dL 1.7-2.4 Lab Interpretation (test code = Normal 79532-7) [facility] [place]COMP. METABOLIC PANEL (86218)2020-10-22 15:35:30 Test Item Value Reference Range Interpretation Comments NA (test code = 141 mmol/L 135-145 9219078485) K (test code = 4.0 mmol/L 3.5-5.0 1332457281) CL (test code = 104 mmol/L 98-108 0846704108) CO2 TOTAL (test code = 27 mmol/L 23-31 7504121200) AGAP (test code = 2-16 4568151394) BUN (test code = 80 mg/dL 7-23 H 2656314552) GLUCOSE (test code = 143 mg/dL 70-110 H 5032724759) CREATININE (test code = 6.40 mg/dL 0.60-1.25 H 2951462829) TOTAL BILI (test code = 0.4 mg/dL 0.1-1.1 7367680878) CALCIUM (test code = 9.4 mg/dL 8.6-10.6 1409312311) T PROTEIN (test code = 7.8 g/dL 6.3-8.2 5772199189) ALBUMIN (test code = 4.1 g/dL 3.5-5.0 3183304244) ALK PHOS (test code = 115 U/L 34-122 3562158816) ALTv (test code = 13 U/L 5-50 1742-6) AST(SGOT) (test code = 16 U/L 13-40 8382764790) eGFR (test code = mL/min/1.73m2 0168631112) CANDY (test code = CANDY) Association of [...] tests). Lab Interpretation Abnormal (test code = 12790-3) [facility] WITH [id number] 15:26:32 Test Item Value Reference Range Interpretation [...] RDW-SD (test code = 43.7 fL 38.5-51.6 37733-9) RDW-CV (test code = 13.2 % 12.1-15.4 788-0) PLT (test code = See_Comment [Automated 777-3) message] The sy stem which generated this result transmitted reference range : 150 - 328 10*3/ ?L. The reference r mick was not used to interpret this result as normal/abnormal . MPV (test code = 10.2 fL 9.8-13.0 21927-9) NRBC/100 WBC (test See_Comment [Automat ed code = 7913860438) message] The system which generated this result transmitted reference range : 0.0 - 10.0 /100 WBCs. The refer ence range was not u sed to interpret th is result as normal/abnormal . NRBC x10^3 (test code <0.01 See_Comment [Auto mated = 8521505523) message] The s ystem which generated this result transmitted reference range : 10*3/?L. The reference range was not used to interpret this result as normal/abnormal . GRAN MAT (NEUT) % 71.3 % (test code = 770-8) IMM GRAN % (test code 0.40 % = 5346601821) LYMPH % (test code = 15.5 % 736-9) MONO % (test code = 9.0 % 5905-5) EOS % (test code = 3.3 % 713-8) BASO % (test code = 0.5 % 706-2) GRAN MAT x10^3(ANC) 5.77 10*3/uL 1.99-6.95 (test code = 8662217605) IMM GRAN x10^3 (test 0.03 10*3/uL 0.00-0.06 code = 6314867187) LYMPH x10^3 (test code 1.25 10*3/uL 1.09-3.23 = 731-0) MONO x10^3 (test code 0.73 10*3/uL 0.36-1.02 = 742-7) EOS x10^3 (test code = 0.27 10*3/uL 0.06-0.53 711-2) BASO x10^3 (test code 0.04 10*3/uL 0.01-0.09 = 704-7) Lab Interpretation Abnormal (test code = 21916-5) [facility] [place]"
== END 2021-02-11 17:59 ==
LOC: ER 11:23
DX: T82.41XA Breakdown (mechanical) of vascular dialysis catheter, initial encounter (principal); I12.0 Hypertensive chronic kidney disease with stage 5 chronic kidney disease or end stage renal disease; E11.22 Type 2 diabetes mellitus with diabetic chronic kidney disease; N18.6 End stage renal disease; Z99.2 Dependence on renal dialysis; Z79.4 Long term (current) use of insulin; F32.A Depression, unspecified
CPT/HCPCS: 36415; 80048; 80076; 85025; 85610; 99285

== ENCOUNTER 2022-04-02 12:13 | Emergency (ER) | payer OTHER ==
--- OUTSIDE RECORDS SUMMARY | 2022-04-02 12:18 | XMS REPORT | Continuity of Care Document ---
:1965 Author Organization [facility] t Address [address] [place] [address] Care Team Providers Name Role Phone [place], [place] TANIKA MAURER [facility]ICAL Primary Care Physician Unavailable Tommy Sosa Attending Clinician Unavailable Glory Muñiz RN Attending Clinician Unavailable Only, Ang Db Test Attending Clinician Unavailable Diana Waters Attending Clinician HAYLIE RAMÍREZ Attending Clinician Unavailable Rebecca Hubbard DO Attending Clinician Haylie Ramírez MD Attending Clinician Tommy Sosa Admitting Clinician Unavailable HAYLIE RAMÍREZ Admitting Clinician Unavailable Haylie Ramírez MD Admitting Clinician Payers Payer Name Policy Type Policy Number Effective Date Expiration Date S ource Problems Condition Condition Condition Status Onset Resolution Last Treating Co mments Source Name Details Category Date Date Treatment Clinician Date Morbid Morbid Disease Active Univers obesity obesity - ity of with [facility] mass index 00 Me dical of of Branch 40.0-49.9 40.0-49.9 Acute on Acute on Disease Active Unive rs chronic chronic 10-22 ity of renal renal 00:00: [place] insufficie insufficie 00 Me dical ncy ncy Branch Alcohol Alcohol Disease Active Univers dependence dependence 10-22 it y of 00:00: [place] 00 Medical Branch Benign Benign Disease Active Univers essential essential 10-22 ity of hypertensi hypertensi [place] Cannabis Cannabis Disease Active Unive rs abuse abuse 10-22 ity of 00:00: [place] [facility] Cocaine Cocaine Disease Active Univers abuse abuse 10-22 ity of 00:00: [place] [facility] Congestive Congestive Disease Active U nivers heart heart 10-22 ity of failure failure 00:00: [place] [facility] Depressive Depressive Disease Active U nivers disorder disorder 10-22 ity of 00:00: [place] [facility] Diabetes Diabetes Disease Active Unive rs mellitus mellitus 10-22 ity of 00:00: [place] [facility] Legal Legal Disease Active Overview: Stacy s blindness blindness 10-22 [facility] 00:00: g of this note Medical might be Branch different from the original. Mar 12, 2020 Entered By: DON MARSH Comment: per 03/11/20 EYE NOTE Morbid Morbid Disease Active Univers obesity obesity 10-22 ity of with body with body 00:00: s mass index mass index 00 Me dical of of Branch 40.0-49.9 40.0-49.9 Allergies, Adverse Reactions, Alerts Allergy Allergy Status Severity Reaction(s) Onset Inactive Treating Comm ents Source Name Type Date Date Clinician No Known DA Active U 2021-04 [facility] 05-30 [facility] 00:00: [address] NO KNOWN Drug Active Univers ALLERGIE Class ity of S [facility] Social History Social Habit Start Date Stop Date Quantity Comments Source Exposure to Not sure [facility] SARS-CoV-2 (event) Medica l Branch Sex [birth year] At [birth year] [facility] 00:00:00 00:00:00 [facility] Smoking Status Start Date Stop Date Source Unknown if ever smoked [facility] Medications Ordered Filled Start Stop Current Ordering Indication Dosage Frequency Signature Comments Components Source Medication Medication Date Date Medication? Clinician (SIG) Name Name calcitrioL 202- No [id number] .5ug Take 1 Univers 0.5 mcg 10-24 capsule by ity o f capsule 00:00: 04:59 mouth [place] 00 :00 daily for Medical 30 days. Branch amLODIPine 2020- No [id number] 5mg Take 1 Univers 5 mg tablet 10-24 tablet by it y of 00:00: 04:59 mouth [place] 00 :00 daily for Medical 30 days. Branch gabapentin Yes 300mg Take 300 Un desiree 300 mg 7-22 mg by ity of capsule 23:01: mouth 3 [place] 32 (three) Medical times Branch daily. traZODone Yes 100mg Take 100 Uni vers 100 mg 7-22 mg by ity of tablet 23:01: mouth at [place] [address] bedtime as Medical needed for Branch Insomnia. Cholecalcif Yes 5000U Take 5,000 Univers jake, 7-22 Units by ity of Vitamin D3, 23:01: mouth [place] (VITAMIN 32 daily. Medical D3) 125 mcg [place] (5,000 unit) tablet insulin Yes 33U inject 33 Unive rs detemir 7-22 Units ity of U-100 23:01: under the [place] (LEVEMIR 32 skin 2 Medical U-100 (two) Branch INSULIN) times 100 unit/mL daily with injection meals. NOVOLOG Yes 11U inject 11 Unive rs U-100 7-22 Units ity of INSULIN 23:01: under the [place] ASPART SC 32 skin 2 Medical (two) Branch times daily with meals. ARIPiprazol Yes 5mg Take 5 mg U nivers e (ABILIFY) 7-22 by mouth ity of 5 mg tablet 23:01: daily. [place] [address] Medical Branch aspirin 81 Yes 81mg Take 81 mg U nivers mg chewable 7-22 by mouth ity of tablet 23:01: daily. [address] Branch atorvastati Yes 40mg Take 40 mg Univers n 40 mg 7-22 by mouth ity of tablet 23:01: at [place] [address] bedtime. Medical Branch buPROPion Yes 300mg Take 300 Uni vers XL 300 mg 7-22 mg by ity of 24 hr 23:01: mouth [place] tablet 31 daily. Medical Branch carvediloL 2021-0 Yes 25mg Take 25 mg U nivers 25 mg 7-22 by mouth 2 ity of tablet 23:01: (two) [place] 31 times Medical daily with Branch meals. citalopram 0 Yes 40mg Take 40 mg U nivers 40 mg 7-22 by mouth ity of tablet 23:01: daily. [place] 31 Medical Branch vitamin 2020-0 Yes 1000ug Take 1,000 Un desiree B-12 1,000 7-22 mcg by ity of mcg tablet 23:01: mouth [place] 31 daily. Medical Branch ferrous 2020-0 Yes 324mg Take 324 Unive rs gluconate 7-22 mg by ity of 324 mg 23:01: mouth 2 [place] (37.5 mg 31 (two) Medical iron) times Branch tablet daily. furosemide Yes 80mg Take 80 mg U nivers 80 mg 7-22 by mouth 2 ity of tablet 23:01: (two) [place] 31 times Medical daily. Branch calcitrioL 2020-0 2021- No .5ug Take 0.5 Un desiree 0.25 mcg 7-22 07-22 mcg by ity of capsule 20:02: 00:00 mouth [place] 43 :00 daily. Medical Branch ergocalcife 2020-0 2021- No [id number] Take Uni vers rol, 7-22 07-22 50,000 ity of vitamin d2, 20:02: 00:00 Units by T vicentaas 1,250 mcg 43 :00 mouth Medical (50,000 weekly. Branch unit) capsule gabapentin 0 Yes 300mg Take 300 Un desiree 300 mg 7-22 mg by ity of capsule 18:01: mouth 3 [place] 32 (three) Medical times Branch daily. traZODone 0 Yes 100mg Take 100 Uni vers 100 mg 7-22 mg by ity of tablet 18:01: mouth at [place] [address] bedtime as Medical needed for Branch Insomnia. Cholecalcif 2020-0 Yes 5000U Take 5,000 Univers jake, 7-22 Units by ity of Vitamin D3, 18:01: mouth [place] (VITAMIN 32 daily. Medical D3) 125 mcg Branch (5,000 unit) tablet insulin 2020-0 Yes 33U inject 33 Unive rs detemir 7-22 Units ity of U-100 18:01: under the [place] (LEVEMIR 32 skin 2 Medical U-100 (two) Branch INSULIN) times 100 unit/mL daily with injection meals. NOVOLOG Yes 11U inject 11 Unive rs U-100 7-22 Units ity of INSULIN 18:01: under the [place] ASPART SC 32 skin 2 Medical (two) Branch times daily with meals. gabapentin Yes 300mg Take 300 Un desiree 300 mg 7-22 mg by ity of capsule 18:01: mouth 3 [place] [address] (three) Medical times Branch daily. traZODone Yes 100mg Take 100 Uni vers 100 mg 7-22 mg by ity of tablet 18:01: mouth at [place] [address] bedtime as Medical needed for Branch Insomnia. Cholecalcif Yes 5000U Take 5,000 Univers jake, 7-22 Units by ity of Vitamin D3, 18:01: mouth [place] (VITAMIN 32 daily. Medical D3) 125 mcg Branch (5,000 unit) tablet insulin Yes 33U inject 33 Unive rs detemir 7-22 Units ity of U-100 18:01: under the [place] (LEVEMIR 32 skin 2 Medical U-100 (two) Branch INSULIN) times 100 unit/mL daily with injection meals. NOVOLOG Yes 11U inject 11 Unive rs U-100 7-22 Units ity of INSULIN 18:01: under the [place] ASPART SC 32 skin 2 Medical (two) Branch times daily with meals. ARIPiprazol Yes 5mg Take 5 mg U nivers e (ABILIFY) 7-22 by mouth ity of 5 mg tablet 18:01: daily. [address] Branch aspirin 81 Yes 81mg Take 81 mg U nivers mg chewable 7-22 by mouth ity of tablet 18:01: daily. [address] Branch atorvastati Yes 40mg Take 40 mg Univers n 40 mg 7-22 by mouth ity of tablet 18:01: at [place] [address] bedtime. Medical Branch buPROPion Yes 300mg Take 300 Uni vers XL 300 mg 7-22 mg by ity of 24 hr 18:01: mouth [place] tablet 31 daily. Medical Branch carvediloL Yes 25mg Take 25 mg U nivers 25 mg 7-22 by mouth 2 ity of tablet 18:01: (two) [place] [address] times Medical daily with Branch meals. citalopram Yes 40mg Take 40 mg U nivers 40 mg 7-22 by mouth ity of tablet 18:01: daily. [place] [address] Medical Branch vitamin Yes 1000ug Take 1,000 Un desiree B-12 1,000 7-22 mcg by ity of mcg tablet 18:01: mouth [place] [address] daily. Medical Branch ferrous Yes 324mg Take 324 Unive rs gluconate 7-22 mg by ity of 324 mg 18:01: mouth 2 [place] (37.5 mg 31 (two) Medical iron) times Branch tablet daily. furosemide Yes 80mg Take 80 mg U nivers 80 mg 7-22 by mouth 2 ity of tablet 18:01: (two) [place] [address] times Medical daily. Branch ARIPiprazol Yes 5mg Take 5 mg U nivers e (ABILIFY) 7-22 by mouth ity of 5 mg tablet 18:01: daily. [place] [address] Medical Branch aspirin 81 Yes 81mg Take 81 mg U nivers mg chewable 7-22 by mouth ity of tablet 18:01: daily. [place] [address] Medical Branch atorvastati Yes 40mg Take 40 mg Univers n 40 mg 7-22 by mouth ity of tablet 18:01: at [place] [address] bedtime. Medical Branch buPROPion Yes 300mg Take 300 Uni vers XL 300 mg 7-22 mg by ity of 24 hr 18:01: mouth [place] tablet 31 daily. Medical Branch carvediloL Yes 25mg Take 25 mg U nivers 25 mg 7-22 by mouth 2 ity of tablet 18:01: (two) [place] [address] times Medical daily with Branch meals. citalopram Yes 40mg Take 40 mg U nivers 40 mg 7-22 by mouth ity of tablet 18:01: daily. [place] [address] Medical Branch vitamin Yes 1000ug Take 1,000 Un desiree B-12 1,000 7-22 mcg by ity of mcg tablet 18:01: mouth [place] [address] daily. Medical Branch ferrous Yes 324mg Take 324 Unive rs gluconate 7-22 mg by ity of 324 mg 18:01: mouth 2 [place] (37.5 mg 31 (two) Medical iron) times Branch tablet daily. furosemide Yes 80mg Take 80 mg U nivers 80 mg 10-23 by mouth 2 ity of tablet 18:01: (two) [place] 31 times Medical daily. Branch Sliding 2020-0 Yes Subcutaneo Univ ers Scale 10-23 us, TID ity of Insulin - 17:00: MEALS+HS, [place] as Lispro 00 First dose Medical (HumaLOG) + on [facility] Branch Fsbg 10/23/20 at Testing 1200, Until Discontinu ed, Routine insulin 2020-0 Yes 33U 33 Units, Unive rs glargine 10-23 Subcutaneo ity o f (LANTUS 15:30: us, BID, [place] U-100) 00 First dose Medical injection on [facility] Branch 33 Units 10/23/20 at 1030, Until Discontinu ed, Routine vitamin 2020-0 Yes 1000ug 1,000 mcg, Un desiree B-12 10-23 Oral, ity of (CYANOCOBAL 14:00: DAILY, [place] LINK) 00 First dose Medical tablet on [facility] Branch 1,000 mcg 10/23/20 at 0900, Until Discontinu ed, Routine ergocalcife 0 Yes [id number] 50,000 Un desiree rol 10-23 Units, ity of (vitamin 14:00: Oral, [place] d2) 00 QWEEKLY, Medical (CALCIFEROL First dose Br anch ) capsule on [place] 50,000 10/23/20 at Units 0900, Until Discontinu ed, Routine citalopram 0 Yes 40mg 40 mg, Unive rs (CELEXA) 10-23 Oral, ity of tablet 40 14:00: DAILY, [place] mg 00 First dose Medical on [facility] Branch 10/23/20 at 0900, Until Discontinu ed, Routine cholecalcif 0 Yes 5000U 5,000 Univ ers jake 10-23 Units, ity of (vitamin 14:00: Oral, [place] D3) tablet 00 DAILY, Medical 5,000 Units First dose Br anch on [place] 10/23/20 at 0900, Until Discontinu ed calcitrioL 2020-0 Yes .5ug 0.5 mcg, Uni vers (ROCALTROL) 10-23 Oral, ity of capsule 0.5 14:00: DAILY, [place] mcg 00 First dose Medical on [facility] 10/23/20 at 0900, Until Discontinu ed, Routine buPROPion 0 Yes 300mg 300 mg, Univ ers XL 10-23 Oral, ity of (WELLBUTRIN 14:00: DAILY, [place] XL) tablet 00 First dose Med ical 300 mg on [facility] 10/23/20 at 0900, Until Discontinu ed, Routine aspirin 0 Yes 81mg 81 mg, Univers chewable 10-23 Oral, ity of tablet 81 14:00: DAILY, [place] mg 00 First dose Medical on [facility] 10/23/20 at 0900, Until Discontinu ed, Routine ARIPiprazol Yes 5mg 5 mg, Unive rs e (ABILIFY) 10-23 Oral, ity of tablet 5 mg 14:00: DAILY, [place] 00 First dose Medical on [facility] 10/23/20 at 0900, Until Discontinu ed, Routine traMADoL Yes 50mg 50 mg, Univers (ULTRAM) 10-23 Oral, ity of tablet 50 10:16: Q6HPRN, [place] mg 54 Starting Medical [facility] 10/23/20 at 0516, Until Discontinu ed, Routine, Pain (scale 4-6) amLODIPine Yes 5mg 5 mg, Univer s (NORVASC) 10-23 Oral, ity of tablet 5 mg 04:00: DAILY, [place] 00 First dose Medical on [facility] 10/22/20 at 2300, Until Discontinu ed, Routine hydralAZINE Yes 20mg 20 mg, Univ ers (APRESOLINE 10-23 Slow IV ity o f ) injection 03:56: Push, [place] 20 mg 39 Q4HPRN, Medical Starting Branch [facility] 10/22/20 at 2256, Until Discontinu ed, STAT, DBP=>100; SBP=>180<b r>Indicati on: Hypertensi ve Emergency atorvastati Yes 40mg 40 mg, Univ ers n (LIPITOR) 10-23 Oral, QHS, it y of tablet 40 02:00: First dose [place] 00 on [facility] 10/22/20 at [place] 2100, Until Discontinu ed, Routine gabapentin Yes 300mg 300 mg, Uni vers (NEURONTIN) - Oral, TID, it y of capsule 300 01:00: First dose [place] mg [address] [facility] 10/22/20 at [place] 2000, Until Discontinu ed, Routine furosemide Yes 80mg 80 mg, Unive rs (LASIX) - Oral, BID, ity of tablet 80 01:00: First dose [place] mg [address] [facility] 10/22/20 at [place] 2000, Until Discontinu ed, Routine ferrous Yes 325mg 325 mg, Univer s sulfate 10-23 Oral, BID, ity of tablet 325 01:00: First dose [place] mg 00 on [facility] 10/22/20 at [place] 2000, Until Discontinu ed ergocalcife Yes [id number] Take 1 Univers rol, 7-22 capsule by ity of vitamin d2, 00:00: mouth [place] 1,250 mcg 00 weekly. Medical (50,000 Branch unit) capsule ergocalcife Yes [id number] Take 1 Univers rol, 7-22 capsule by ity of vitamin d2, 00:00: mouth [place] 1,250 mcg 00 weekly. Medical (50,000 Branch unit) capsule ergocalcife Yes [id number] Take 1 Univers rol, 7-22 capsule by ity of vitamin d2, 00:00: mouth [place] 1,250 mcg 00 weekly. Medical (50,000 Branch unit) capsule D5W IV Yes [id number] 1000mL at 50 Uni vers infusion 7-21 mL/hr, IV ity of 1,000 mL 22:15: Infusion, [place] 00 CONTINUOUS Medical , Starting Branch [facility] 10/22/20 at 1715, Until Discontinu ed, Routine thiamine 2020- No [id number] 200mg IV Uni vers (VITAMIN 10-22 Piggyback, ity of B1) 200 mg 22:15: 22:45 ONCE, 1 [place] as in NaCl 00 :00 dose, [facility] Medical 0.9% (NS) 10/22/20 at [facility] piggyback 1715, 50 mL carvediloL Yes 25mg 25 mg, Unive rs (COREG) 10-22 Oral, BID ity of tablet 25 22:00: MEALS, [place] mg 00 First dose Medical on Tue Branch 10/22/20 at 1700, Until Discontinu ed, Routine insulin Yes 11U 11 Units, Unive rs lispro 10-22 Subcutaneo ity of (human) 21:30: us, BIDAC, [place] (HumaLOG 00 First dose Medic al U-100) on Tue Branch injection 10/22/20 at 11 Units 1630, Until Discontinu ed traZODone Yes 100mg 100 mg, Univ ers (DESYREL) 10-22 Oral, ity of tablet 100 19:23: QHSPRN, [place] mg 13 Starting Medical Tue Branch 10/22/20 at 1423, Until Discontinu ed, Routine, Insomnia heparin Yes 5000U 5,000 Univers (porcine) 10-22 Units, ity of injection 19:00: Subcutaneo [place] 5,000 Units 00 us, Q8H, Medi amber First dose Branch on Tue10/22/20 at 1400, Until Discontinu ed, Routine ondansetron Yes 4mg 4 mg, Slow Univers (ZOFRAN 10-22 IV Push, ity of (PF)) 17:49: Q6HPRN, [place] injection 4 47 Starting Medi amber mg [facility] Branch 10/22/20 at 1249, Until Discontinu ed, Routine, Nausea and Vomiting (N/V) acetaminoph Yes 650mg 650 mg, Un desiree en 10-22 Oral, ity of (TYLENOL) 17:49: Q6HPRN, [place] tablet 650 38 Starting Medic al mg [facility] Branch 10/22/20 at 1249, Until Discontinu ed, Routine, Pain (scale 1-3) Immunizations Ordered Filled Immunization Date Status Comments [facility] e Immunization Name Name Zoster Vaccine 2020-08-07 Completed [employer] 00:00:00 [facility] Zoster Vaccine 2020-08-07 Completed [employer] 00:00:00 [facility] Zoster Vaccine 2020-08-07 Completed [employer] 00:00:00 [facility] SARS-COV-2 COVID-19 2020-06-13 Completed Unive rsity of PFIZER VACCINE 00:00:[address] [facility] [place] [place] SARS-COV-2 COVID-19 2020-06-13 Completed Unive rsity of PFIZER VACCINE 00:00:[address] [facility] [place] SARS-COV-2 COVID-19 2020-06-13 Completed Unive rsity of PFIZER VACCINE 00:00:[address] [facility] [place] Pneumococcal 13 2020-04-18 Completed Universit y of Conjugate, PCV13 00:00:00 [facility] dical (Prevnar 13) Branch Pneumococcal 13 2020-04-18 Completed Universit y of Conjugate, PCV13 00:00:00 [facility] dical (Prevnar 13) Branch Pneumococcal 13 2020-04-18 Completed Universit y of Conjugate, PCV13 00:00:00 [facility] dical (Prevnar 13) [place] Influenza Virus 2019-12-27 Completed Universit y of Vaccine Quad IM 3+ 00:00:00 [facility] Influenza Virus 2019-12-27 Completed Universit y of Vaccine Quad IM 3+ 00:00:00 [facility] Influenza Virus 2019-12-27 Completed Universit y of Vaccine Quad IM 3+ 00:00:00 [facility] Influenza Virus 2019-05-05 Completed Universit y of Vaccine 00:00:00 [facility] Influenza Virus 2019-05-05 Completed Universit y of Vaccine 00:00:00 [facility] Influenza Virus 2019-05-05 Completed Universit y of Vaccine 00:00:00 [facility] TDAP 2017-05-11 Completed University of 00:00:00 [facility] TDAP 2017-05-11 Completed University of 00:00:00 [facility] TDAP 2017-05-11 Completed University of 00:00:00 [facility] Influenza Virus 2014-12-26 Completed Universit y of Vaccine 00:00:00 [facility] Influenza Virus 2014-12-26 Completed Universit y of Vaccine (3+ yrs) 00:00:00 [facility] [place] [facility] Influenza Virus 2014-12-26 Completed Universit y of Vaccine 00:00:00 [facility] Influenza Virus 2014-12-26 Completed Universit y of Vaccine (3+ yrs) 00:00:00 [facility] [place] [facility] Influenza Virus 2014-12-26 Completed Universit y of Vaccine 00:00:00 [facility] Influenza Virus 2014-12-26 Completed Universit y of Vaccine (3+ yrs) 00:00:00 [facility] Sign[facility] Vital Name Observation Time Observation Value Comments Source Systolic blood 2020-10-23 21:02:00 94 mm[Hg] Univer sity of [facility] Diastolic blood 2020-10-23 21:02:00 67 [facility]Hg[facility] 2020-10-23 21:02:00 59 /min [facility] Body temperature 2020-10-23 21:02:00 36.56 Madalyn [facility] Respiratory rate 2020-10-23 21:02:00 13 /min [facility] Oxygen saturation in 2020-10-23 21:02:00 94 /min [facility] Arterial blood by [facility] Pulse oximetry [place] Body height 2020-10-22 20:03:00 177.8 cm [facility] Body weight 2020-10-22 20:03:00 140.615 kg [facility] BMI 2020-10-22 20:03:00 44.48 kg/m2 [facility] Procedures Procedure Date / Time Performing Clinician Source Performed [id number] 2022-03-31 00:00:00 CHERYL.01 [facility] [id number] 2022-03-29 00:00:00 CHERYL.01 [facility] [id number] 2022-03-29 00:00:00 CHERYL.01 [facility] MAGNESIUM 2020-10-23 09:20:00 Haylie Ramírez [facility] BASIC METABOLIC PANEL (NA, 2020-10-23 09:20:00 Haylie Ramírez [facility] K, CL, CO2, GLUCOSE, BUN, Medica l Branch CREATININE, CA) CBC WITH DIFF 2020-10-23 09:20:00 Haylie Ramírez [facility] POCT GLUCOSE (AUTOMATED) 2020-10-23 00:59:00 Haylie Ramírez [facility] XR CHEST 2 VW 2020-10-23 00:43:19 [facility] 2020-10-22 23:18:55 Kaitlin [facility] COMPLETE [facility] FERRITIN SERUM 2020-10-22 21:56:[address] [facility] TOTAL IRON BINDING 2020-10-22 21:56:00 Kaitlin [facility] CAPACITY [facility] THYROID STIMULATING 2020-10-22 21:56:00 Kaitlin [facility] HORMONE [facility] INTACT PTH CALCIUM GROUP 2020-10-22 21:56:00 Jojo Madrigal [facility] HEPATITIS B SURFACE 2020-10-22 21:56:00 Kaitlin [facility] ANTIBODY [facility] HEPATITIS B SURFACE 2020-10-22 21:56:00 Kaitlin [facility] ANTIGEN [facility] HBC ANTIBODY (IGM & IGG) 2020-10-22 21:56:00 Jojo Madrigal [facility] N-TERMINAL PRO-BNP 2020-10-22 21:56:00 Kaitlin [facility] VITAMIN D, 25-OH 2020-10-22 21:56:00 Kaitlin [facility] POCT GLUCOSE (AUTOMATED) 2020-10-22 21:37:00 Haylie Ramírez [facility] URINE DRUG (IMMUNOASSAY) - 2020-10-22 19:35:00 Meg Stinson [facility] COMPREHENSIVE [facility]EN [facility] GLYCOSYLATED HEMOGLOBIN 2020-10-22 19:35:00 Meg Stinson [facility] (A1C) [facility] OSMOLALITY URINE 2020-10-22 19:31:00 [facility] 2020-10-22 19:31:00 Rebecca Hubbard [facility] VITAMIN D, 25-OH 2020-10-22 19:31:00 Haylie Ramírez [facility] CREATININE, URINE RANDOM 2020-10-22 19:31:00 Jojo Madrigal [facility] TOTAL PROTEIN, URINE 2020-10-22 19:31:00 Jojo aMdrigal [facility] RANDOM Medical Branch POTASSIUM, URINE RANDOM 2020-10-22 19:31:00 [facility] SODIUM, URINE RANDOM 2020-10-22 19:31:00 [facility] PHOSPHORUS 2020-10-22 19:30:00 Desiree [facility] CREATINE KINASE 2020-10-22 19:30:[address] [facility] URIC ACID 2020-10-22 19:30:00 Desiree [facility] FERRITIN SERUM 2020-10-22 19:30:00 Desiree [facility] IRON 2020-10-22 19:30:00 Desiree [facility] TOTAL IRON BINDING 2020-10-22 19:30:00 [facility] CAPACITY [facility] INTACT PTH CALCIUM GROUP 2020-10-22 19:30:00 Desiree Haylie [facility] HB ECG ROUTINE & RHYTHM 2020-10-22 16:16:29 [facility] (ID NOW RAPID 2020-10-22 16:12:00 Rebecca Hubbard [facility] TESTING) Medical Branch PHOSPHORUS 2020-10-22 15:15:00 [facility] 2020-10-22 15:15:00 Rebecca Hubbard [facility] TROPONIN I 2020-10-22 15:15:00 Rebecca Hubbard [facility] COMP. METABOLIC PANEL 2020-10-22 15:15:00 Rebecca Hubbard [facility] ([id number]) Medical Branch CBC WITH DIFF 2020-10-22 15:15:00 Rebecca Hubbard [facility] acute hospital NOTICE OF PRIVACY 2020-10-22 14:39:44 Doctor Unassigned, [facility] PRACTICES [place] [facility] CONSENT/REFUSAL FOR 2020-10-22 14:37:51 Doctor Unassigned, [facility] DIAGNOSIS AND TREATMENT [place] [facility] Encounters Start End Encounter Admission Attending Care Care Encounter Source Date/Time Date/Time Type Type Clinicians Facility Department ID 2022-03-30 2022-03-31 Inpatient Tommy Beckford HCAWU TELE [id number] [facility] 18:47:00 17:09:00 11 [facility] 2021-04-30 2021-04-30 Telephone PEDRO Muñiz [id number] [facility] 00:00:00 00:00:00 Glory [place] 350.1.13.10 it y of [facility] 4.2.7.2.686 Gurmeet as [phone] [address] 2021-04-28 2021-04-28 Laboratory Only, Ang Db Test [facility] 1.2.8 40.114 [id number] Univers 15:30:00 15:45:00 Only [facility] [id number] ity of [place] 4.2.7.2.686 Gurmeet as MANUEL?BLEA [phone] [address] MEDICAL OFFICE BUILDING 2020-10-22 2020-10-23 Outpatient X DESIREE BRONSON [facility] [id number] Univers 09:47:00 17:45:00 HAYLIE ity [facility] 2020-10-22 2020-10-23 Emergency Stevie Rebecca Lisset [facility] 1.2.8 40.114 [id number] Univers 09:47:00 17:45:00 Haylie Ramírez 350.1.13.10 ity [facility] 4.2.7.2.686 [facility] [phone] [address] Results Test Description Test Time Test Comments Results Result Comments Source GLUCOSE BEDSIDE TESTING 2022-03-31 13:02:00 Test Item Value Reference Range Interpretation Comme nts GLUCOSE BEDSIDE TESTING (test code = GLUBED) 263 MG/DL 60-99 H GLUCOSE BEDSIDE [id number] 07:47:00 Test Item Value Reference Range Interpretation Comments GLUCOSE BEDSIDE TESTING (test code 145 MG/DL 60-99 H = GLUBED) COMPREHENSIVE METABOLIC [id number] 07:22:00 Test Item Value Reference Range Interpretation Comments SODIUM (test code 141 MMOL/L 137-145 N = NA) POTASSIUM (test 4.4 MMOL/L 3.5-5.1 N code = K) CHLORIDE (test 107 MMOL/L 98-107 N code = CL) CARBON DIOXIDE 23 MMOL/L 22-30 N (test code = CO2) ANION GAP (test 15 MMOL/L 14-24 N code = GAP) GLUCOSE (test 160 MG/DL 74-106 H code = GLU) BLOOD UREA 51 MG/DL 9-20 H NITROGEN (test code = BUN) GLOMERULAR 10 The Glomerular Filtration FILTRATION RATE Rate is a ca lculated (test code = GFR) parameterb ased on serum Creatinine, pat ient age and sex. GFR values less than 60 mL/min/1.73 squ are meters are indicative ofChronic Kidney Disease. Values less than 15 mL/min/ 1.73square meters indicate Kidney failure. The ca lculation forGFR is based on the CKD-EPI (2020) calculation. This formulais race indifferent and is the recommended for krystyna for GFRby the [facility].The GFR will not ca lculate if the sex is unkn own or if thepatient's ag e is <18 years. CREATININE (test 6.30 MG/DL 0.66-1.25 H code = CREAT) TOTAL PROTEIN 6.3 G/DL 6.2-7.6 N Ortho Clinical Diagnostic (test code = has made us stefanie re of PROT) newinformation regarding the potential i nterference ofEltrombopag ( a bone marrow stimulan t used to treatthrombocyt onmenia and aplastic anemia ) with specific assays on the Vitros 5600 of which Total Protein is one of thoseassays per formed in our lab.Interfe rence testing perform ed at Ortho determined that Eltrombopag does interfere with Vitros Total Protein asfollowsEltrom bopag Interference fo r Vitros Product Total Protein:======= Eltrombopag Max Observed Av g. BiasConcentrati on Concentration Concentration== ==== 2.5 mg/dl 6.0 g/dl +0.41 +0.34 3.5 mg/dl 6.0 g /dl +0.50 +0.45 5 mg/dl 6 .0 g/dl +0.73 +0.65 2.5 mg/dl 8.0 g/dl +0.44 +0.4 1 3.5 mg/dl 8.0 g/dl +0.55 +0.52 5 mg/dl 8.0 g/dl +0.86 +0.77 ALBUMIN (test 3.4 G/DL 3.5-5.0 L code = ALB) CALCIUM (test 8.2 MG/DL 8.4-10.2 L code = CA) BILIRUBIN TOTAL 0.3 MG/DL 0.2-1.3 N Eltrombopag Interference (test code = for Vitros Prod uct TBil, BILT) BuBc: Assa y Eltrombopag Barbara lyte/ Max Observed Avg. B ias Concentration C oncentration Concentration== ====TBil 7mg/dl TBil/ 1. 2mg/dl +0.23mg.dl +0.2 0mg/dlBuBc 3.5mg/dl Bu/0.8 mg/dl +0.25mg/dl +0.2 4mg/dlBuBc 7 mg/dl Bu/14.2mg /dl +0.38mg/dl +0.2 5mg/dlBuBc 5mg/dl Bc/0mg/d l +0.25mg/dl +0.15mg/dlBuBc 3.5mg/dl Bc/2.8mg/dl +0. 25mg/dl +0.23mg/dl SGOT/AST (test 19 UNITS/L 17-59 code = AST) SGPT/ALT (test 15 UNITS/L 0-49 code = ALT) ALKALINE 100 UNITS/L 38-126 N PHOSPHATASE (test code = ALKP) [id number] 07:22:00 Test Item Value Reference Range Interpretation Comments MAGNESIUM (test code = MAG) 1.9 MG/DL 1.6-2.3 N CBC W/AUTO [id number] 06:40:00 Test Item Value Reference Range Interpretation Comments WHITE BLOOD CELL (test code = 7.8 K/MM3 3.8-9.8 N WBC) RED BLOOD CELL (test code = 3.41 M/MM3 3.95-5.67 L RBC) HEMOGLOBIN (test code = HGB) 10.2 G/DL 12.4-16.7 L HEMATOCRIT (test code = HCT) 32.1 % 35.9-49.5 L MEAN CELL VOLUME (test code = 94 fL 81.7-96.1 N MCV) MEAN CELL HGB (test code = MCH) 29.9 pg 27.6-33.2 N MEAN CELL HGB CONCETRATION 31.8 % 32.9-35.5 L (test code = MCHC) RED CELL DISTRIBUTION WIDTH 13.5 % 12.1-15.2 N (test code = RDW) PLATELET COUNT (test code = 182 K/MM3 129-368 N PLT) MEAN PLATELET VOLUME (test code 10.5 fl 7.4-10.4 H = MPV) NEUTROPHIL % (test code = NT%) 66.5 % 43-75 N IMMATURE GRANULOCYTE % (test 0.4 % 0.0-2.0 N code = IG%) LYMPHOCYTE % (test code = LY%) 20.0 % 14-44 N MONOCYTE % (test code = MO%) 8.1 % 4-13 N EOSINOPHIL % (test code = EO%) 4.7 % 0-6 N BASOPHIL % (test code = BA%) 0.3 % 0-2 N NUCLEATED RBC % (test code = 0.0 % 0-1.0 N NRBC%) NEUTROPHIL # (test code = NT#) 5.20 K/mm3 2.0-7.6 N IMMATURE GRANULOCYTE # (test 0.03 x10 3/uL 0-0.03 N code = IG#) LYMPHOCYTE # (test code = LY#) 1.56 K/mm3 1.0-3.8 N MONOCYTE # (test code = MO#) 0.63 K/mm3 0.1-0.8 N EOSINOPHIL # (test code = EO#) 0.37 K/mm3 0.0-0.2 H BASOPHIL # (test code = BA#) 0.02 K/mm3 0.0-0.2 N NUCLEATED RBC # (test code = 0.00 K/mm3 0.0-0.1 N NRBC#) GLUCOSE BEDSIDE [id number] 18:59:00 Test Item Value Reference Range Interpretation Comments GLUCOSE BEDSIDE TESTING (test code 232 MG/DL 60-99 H = GLUBED) GLUCOSE BEDSIDE [id number] 17:34:00 Test Item Value Reference Range Interpretation Comments GLUCOSE BEDSIDE TESTING (test code 204 MG/DL 60-99 H = GLUBED) GLUCOSE BEDSIDE [id number] 11:25:00 Test Item Value Reference Range Interpretation Comments GLUCOSE BEDSIDE TESTING (test code 276 MG/DL 60-99 H = GLUBED) COMPREHENSIVE METABOLIC [id number] 07:21:00 Test Item Value Reference Range Interpretation Comments SODIUM (test code 139 MMOL/L 137-145 N = NA) POTASSIUM (test 4.2 MMOL/L 3.5-5.1 N code = K) CHLORIDE (test 106 MMOL/L 98-107 N code = CL) CARBON DIOXIDE 25 MMOL/L 22-30 (test code = CO2) ANION GAP (test 12 MMOL/L 14-24 L code = GAP) GLUCOSE (test 215 MG/DL 74-106 H code = GLU) BLOOD UREA 46 MG/DL 9-20 H NITROGEN (test code = BUN) GLOMERULAR 11 The Glomerular Filtration FILTRATION RATE Rate is a ca lculated (test code = GFR) parameterb ased on serum Creatinine, pat ient age and sex. GFR values less than 60 mL/min/1.73 squ are meters are indicative ofChronic Kidney Disease. Values less than 15 mL/min/ 1.73square meters indicate Kidney failure. The ca lculation forGFR is based on the CKD-EPI (2021) calculation. This formulais race indifferent and is the recommended for krystyna for GFRby the [facility].The GFR will not ca lculate if the sex is unkn own or if thepatient's ag e is <18 years. CREATININE (test 5.60 MG/DL 0.66-1.25 H code = CREAT) TOTAL PROTEIN 6.5 G/DL 6.2-7.6 N Ortho Clinical Diagnostic (test code = has made us stefanie re of PROT) newinformation regarding the potential i nterference ofEltrombopag ( a bone marrow stimulan t used to treatthrombocyt onmenia and aplastic anemia ) with specific assays on the WiMi5s 5600 of which Total Protein is one of thoseassays per formed in our lab.Interfe rence testing perform ed at Ortho determined that Eltrombopag does interfere with Vitros Total Protein asfollowsEltrom bopag Interference fo r Vitros Product Total Protein:======= Eltrombopag Max Observed Av g. BiasConcentrati on Concentration Concentration== ==== 2.5 mg/dl 6.0 g/dl +0.41 +0.34 3.5 mg/dl 6.0 g /dl +0.50 +0.45 5 mg/dl 6 .0 g/dl +0.73 +0.65 2.5 mg/dl 8.0 g/dl +0.44 +0.4 1 3.5 mg/dl 8.0 g/dl +0.55 +0.52 5 mg/dl 8.0 g/dl +0.86 +0.77 ALBUMIN (test 3.5 G/DL 3.5-5.0 N code = ALB) CALCIUM (test 8.4 MG/DL 8.4-10.2 N code = CA) BILIRUBIN TOTAL 0.3 MG/DL 0.2-1.3 N Eltrombopag Interference (test code = for Vitros Prod uct TBil, BILT) BuBc: Assa y Eltrombopag Barbara lyte/ Max Observed Avg. B ias Concentration C oncentration Concentration== ====TBil 7mg/dl TBil/ 1. 2mg/dl +0.23mg.dl +0.2 0mg/dlBuBc 3.5mg/dl Bu/0.8 mg/dl +0.25mg/dl +0.2 4mg/dlBuBc 7 mg/dl Bu/14.2mg /dl +0.38mg/dl +0.2 5mg/dlBuBc 5mg/dl Bc/0mg/d l +0.25mg/dl +0.15mg/dlBuBc 3.5mg/dl Bc/2.8mg/dl +0. 25mg/dl +0.23mg/dl SGOT/AST (test 14 UNITS/L 17-59 L code = AST) SGPT/ALT (test 13 UNITS/L 0-49 N code = ALT) ALKALINE 102 UNITS/L 38-126 N PHOSPHATASE (test code = ALKP) [id number] 07:21:00 Test Item Value Reference Range Interpretation Comments MAGNESIUM (test code = MAG) 2.0 MG/DL 1.6-2.3 N CBC W/AUTO [id number] 06:47:00 Test Item Value Reference Range Interpretation Comments WHITE BLOOD CELL (test code = 8.4 K/MM3 3.8-9.8 N WBC) RED BLOOD CELL (test code = 3.48 M/MM3 3.95-5.67 L RBC) HEMOGLOBIN (test code = HGB) 10.4 G/DL 12.4-16.7 L HEMATOCRIT (test code = HCT) 32.4 % 35.9-49.5 L MEAN CELL VOLUME (test code = 93 fL 81.7-96.1 N MCV) MEAN CELL HGB (test code = MCH) 29.9 pg 27.6-33.2 N MEAN CELL HGB CONCETRATION 32.1 % 32.9-35.5 L (test code = MCHC) RED CELL DISTRIBUTION WIDTH 13.5 % 12.1-15.2 N (test code = RDW) PLATELET COUNT (test code = 180 K/MM3 129-368 N PLT) MEAN PLATELET VOLUME (test code 10.5 fl 7.4-10.4 H = MPV) NEUTROPHIL % (test code = NT%) 69.5 % 43-75 N IMMATURE GRANULOCYTE % (test 0.2 % 0.0-2.0 N code = IG%) LYMPHOCYTE % (test code = LY%) 19.7 % 14-44 N MONOCYTE % (test code = MO%) 7.3 % 4-13 N EOSINOPHIL % (test code = EO%) 3.1 % 0-6 N BASOPHIL % (test code = BA%) 0.2 % 0-2 N NUCLEATED RBC % (test code = 0.0 % 0-1.0 N NRBC%) NEUTROPHIL # (test code = NT#) 5.82 K/mm3 2.0-7.6 N IMMATURE GRANULOCYTE # (test 0.02 x10 3/uL 0-0.03 N code = IG#) LYMPHOCYTE # (test code = LY#) 1.65 K/mm3 1.0-3.8 N MONOCYTE # (test code = MO#) 0.61 K/mm3 0.1-0.8 N EOSINOPHIL # (test code = EO#) 0.26 K/mm3 0.0-0.2 H BASOPHIL # (test code = BA#) 0.02 K/mm3 0.0-0.2 N NUCLEATED RBC # (test code = 0.00 K/mm3 0.0-0.1 N NRBC#) - XR CHEST [id number] 06:24:00 [facility] : 1965 Sex: M Patient Name: ARNOLD PENA Unit No: [id number] EXAMS: CPT CODE: [id number] XR CHEST 1V [id number] EXAM: - XR CHEST 1VLocation code:C3 HISTORY: PULM EDEMA COMPARISON: None available time of interpretation. FINDINGS: Single AP view of the chest is provided. Left IJ dialysis catheter tip at the caval atrial junction ispresent. Heart size and vascularity are within normal limits. The lungs are clear of focal consolidation. No effusion, pneumothorax, or acute osseous abnormality. IMPRESSION: 1. No radiographic evidence of acute cardiopulmonary process. at 0624 Reported and signed by: Shlomo Beasley MD CC: Tommy Sosa MD Technologist: Janet Arellano, RT (R) Transcrpt Date/Tm/Trnsp: 03/30/2022 (623) [email or web address] Orig Print D/T: S: 03/30/2022 (626) [facility] NAME: ARNOLD PENA [id number] [address] PHYS: CHERYL. - Tommy [place]osa [place], [place] [address]UPV: 1965 AGE: 56 SEX: M LOC: Z.417 A PHONE #: [phone] EXAM DATE: 03/30/2022 STATUS: ADM IN FAX #: [phone] RADIOLOGY NO: PAGE 1 Signed ReportHEPATITIS B SURF AB, [id number] 19:23:00 Test Item Value Reference Range Interpretation Comments HEPATITIS B SURF AB, 3.6 mIU/mL ~~~~~~~ ~~~~~~~~~~~~~~~~ QUANT (test code = ~~~~~~~~~ ~~~~~~~~~~~~~~ HBSABQ) ~~~~~~~~~~~~~~I NTERPRET SHU DATA: <5.00 mIU/mL : Negative - Pa tient is considered to b e notimmune to in fection with HBV. >= 5. 00 mIU/mL and <12. 0 mIU/mL: Indeter minate - Unable todeterm ine if anti-HBs is pre sent at levels consiste nt withimmunity. P atient's immune status s hould be further assesse dby considering oth er clinical inform ation or retestinganothe r specimen drawn at a later time. >=1 2.0 mIU/mL: Positiv e - Anti-HBs detect ed at >10 mIU/mL.Gabriela ent is considered to b e immune to infection wi th HBV. Ithas not been determined what the clinical signif icance isfor values gr eater than >=12 mIU/m L, other than theindivid ual is considered to b e immune to HBV infection.~~~~~ ~~~~~~~~ ~~~~~~~~~~~~~~~ ~~~~~~~~ ~~~~~~~~~~~~~~~ ~~~~~~~~ ~ AG HEPATITIS B [id number] 19:23:00 Test Item Value Reference Range Interpretation Comments AG HEPATITIS B SURFACE (test code = NEGATIVE NONREACTIVE HBSAG) GLUCOSE BEDSIDE [id number] 19:18:00 Test Item Value Reference Range Interpretation Comments GLUCOSE BEDSIDE TESTING (test code 259 MG/DL 60-99 H = GLUBED) COMPREHENSIVE METABOLIC [id number] 18:39:00 Test Item Value Reference Range Interpretation Comments SODIUM (test code 139 MMOL/L 137-145 N = NA) POTASSIUM (test 5.4 MMOL/L 3.5-5.1 H code = K) CHLORIDE (test 106 MMOL/L 98-107 N code = CL) CARBON DIOXIDE 21 MMOL/L 22-30 L (test code = CO2) ANION GAP (test 17 MMOL/L 14-24 N code = GAP) GLUCOSE (test 295 MG/DL 74-106 H code = GLU) BLOOD UREA 78 MG/DL 9-20 H NITROGEN (test code = BUN) GLOMERULAR 7 The Glomerular Filtration FILTRATION RATE Rate is a ca lculated (test code = GFR) parameterb ased on serum Creatinine, pat ient age and sex. GFR values less than 60 mL/min/1.73 squ are meters are indicative ofChronic Kidney Disease. Values less than 15 mL/min/ 1.73square meters indicate Kidney failure. The ca lculation forGFR is based on the CKD-EPI (2020) calculation. This formulais race indifferent and is the recommended for krystyna for GFRby the [facility].The GFR will not ca lculate if the sex is unkn own or if thepatient's ag e is <18 years. CREATININE (test 8.50 MG/DL 0.66-1.25 H code = CREAT) TOTAL PROTEIN 6.9 G/DL 6.2-7.6 N Ortho Clinical Diagnostic (test code = has made us stefanie re of PROT) newinformation regarding the potential i nterference ofEltrombopag ( a bone marrow stimulan t used to treatthrombocyt onmenia and aplastic anemia ) with specific assays on the Vitros 5600 of which Total Protein is one of thoseassays per formed in our lab.Interfe rence testing perform ed at Ortho determined that Eltrombopag does interfere with Vitros Total Protein asfollowsEltrom bopag Interference fo r Vitros Product Total Protein:======= Eltrombopag Max Observed Av g. BiasConcentrati on Concentration Concentration== ==== 2.5 mg/dl 6.0 g/dl +0.41 +0.34 3.5 mg/dl 6.0 g /dl +0.50 +0.45 5 mg/dl 6 .0 g/dl +0.73 +0.65 2.5 mg/dl 8.0 g/dl +0.44 +0.4 1 3.5 mg/dl 8.0 g/dl +0.55 +0.52 5 mg/dl 8.0 g/dl +0.86 +0.77 ALBUMIN (test 4.0 G/DL 3.5-5.0 N code = ALB) CALCIUM (test 9.0 MG/DL 8.4-10.2 N code = CA) BILIRUBIN TOTAL 0.3 MG/DL 0.2-1.3 N Eltrombopag Interference (test code = for Vitros Prod uct TBil, BILT) BuBc: Assa y Eltrombopag Barbara lyte/ Max Observed Avg. B ias Concentration C oncentration Concentration== ====TBil 7mg/dl TBil/ 1. 2mg/dl +0.23mg.dl +0.2 0mg/dlBuBc 3.5mg/dl Bu/0.8 mg/dl +0.25mg/dl +0.2 4mg/dlBuBc 7 mg/dl Bu/14.2mg /dl +0.38mg/dl +0.2 5mg/dlBuBc 5mg/dl Bc/0mg/d l +0.25mg/dl +0.15mg/dlBuBc 3.5mg/dl Bc/2.8mg/dl +0. 25mg/dl +0.23mg/dl SGOT/AST (test 21 UNITS/L 17-59 N code = AST) SGPT/ALT (test 14 UNITS/L 0-49 N code = ALT) ALKALINE 107 UNITS/L 38-126 N PHOSPHATASE (test code = ALKP) LIPID PROFILE (CORONARY RISK)2022-03-29 18:39:00 Test Item Value Reference Range Interpretation Comments TRIGLYCERIDES (test 79 MG/DL 150-199 L TRIGLYCE RIDES code = TRIG) REFERENCE RANGE:Normal: < 150 mg/dLBorderline High: 150-199 mg/dLHi gh: 200-499 mg/dLVe ry High: >=500 mg/ dL CHOLESTEROL (test code 110 MG/DL <200 = CHOL) HDL CHOLESTEROL (test 48 MG/DL 40-59 N code = HDL) LIPOPROTEIN LDL (test 44 MG/DL 0-99 N OPTIM AL.........<100 code = LDL) mg/dLNEAR OPTIMAL/ABOVE OPTIMAL........ .100-12 9 mg/dL BORDERL INE HIGH.........13 0-159 mg/dL HIGH.........16 0-189 mg/dL VERY HIGH.........>/ = 190 mg/dL GLYCOSYLATED HEMOGLOBIN [id number] 18:28:00 Test Item Value Reference Range Interpretation Comments GLYCOSYLATED 7.7 % 4.8-5.9 H Any condition t hat HEMOGLOBIN (HA1C) shortens e rythocyte (test code = survival or dec reasesmean GLYHGB) erythrocyte age (e.g., recovery from a cute blood loss,hemolytic anemia) will falsely lo wer HGBA1c resultsregardle ss of the method used. HG BA1c results from gee sanchez HbSS, HbCC, and HbSc must be interpreted with cautiongiven th e pathological pr ocesses, including anemia,increase d red cell turnover, trans fusion requirements, thatadversely i mpact HGBA1c as a mar ker of long-term glycemiccontrol . Alternative for ms of testing such as fructosaminesho uld be considered for these patients. MEAN BLOOD GLUCOSE 174 MG/DL 70-110 H (test code = MBG) CBC W/AUTO [id number] 18:11:00 Test Item Value Reference Range Interpretation Comments WHITE BLOOD CELL (test code = 10.2 K/MM3 3.8-9.8 H WBC) RED BLOOD CELL (test code = 3.69 M/MM3 3.95-5.67 L RBC) HEMOGLOBIN (test code = HGB) 11.1 G/DL 12.4-16.7 L HEMATOCRIT (test code = HCT) 34.4 % 35.9-49.5 L MEAN CELL VOLUME (test code = 93 fL 81.7-96.1 N MCV) MEAN CELL HGB (test code = MCH) 30.1 pg 27.6-33.2 N MEAN CELL HGB CONCETRATION 32.3 % 32.9-35.5 L (test code = MCHC) RED CELL DISTRIBUTION WIDTH 13.4 % 12.1-15.2 N (test code = RDW) PLATELET COUNT (test code = 212 K/MM3 129-368 N PLT) MEAN PLATELET VOLUME (test code 10.3 fl 7.4-10.4 N = MPV) NEUTROPHIL % (test code = NT%) 84.8 % 43-75 H IMMATURE GRANULOCYTE % (test 0.3 % 0.0-2.0 N code = IG%) LYMPHOCYTE % (test code = LY%) 9.2 % 14-44 L MONOCYTE % (test code = MO%) 5.0 % 4-13 N EOSINOPHIL % (test code = EO%) 0.5 % 0-6 N BASOPHIL % (test code = BA%) 0.2 % 0-2 N NUCLEATED RBC % (test code = 0.0 % 0-1.0 N NRBC%) NEUTROPHIL # (test code = NT#) 8.64 K/mm3 2.0-7.6 H IMMATURE GRANULOCYTE # (test 0.03 x10 3/uL 0-0.03 N code = IG#) LYMPHOCYTE # (test code = LY#) 0.94 K/mm3 1.0-3.8 L MONOCYTE # (test code = MO#) 0.51 K/mm3 0.1-0.8 N EOSINOPHIL # (test code = EO#) 0.05 K/mm3 0.0-0.2 N BASOPHIL # (test code = BA#) 0.02 K/mm3 0.0-0.2 N NUCLEATED RBC # (test code = 0.00 K/mm3 0.0-0.1 N NRBC#) INTACT PTH CALCIUM [id number] 15:40:51 Test Item Value Reference Range Interpretation Comments PTH-INTACT (test code = 174.9 pg/mL 12.0-88.0 H [id number]) PTH-CA Interpretation Furthe r clinical (test code = 1187636805) romi a needed for interpretation. CALCIUM (test code = 9.1 mg/dL 8.6-10.6 6715146280) Lab Interpretation (test Abnormal code = 96267-2) [facility] [id number] 15:40:50 Test Item Value Reference Range Interpretation Comments PTH-INTACT (test code = 207.3 pg/mL 12.0-88.0 H 5707433713) PTH-CA Interpretation Furthe r clinical (test code = 5802260229) romi a needed for interpretation. CALCIUM (test code = 9.2 mg/dL 8.6-10.6 9450327855) Lab Interpretation (test Abnormal code = 83043-2) [facility] (NA, K, CL, CO2, GLUCOSE, BUN, CREATININE, CA)2020-10-23 11:42:35 Test Item Value Reference Range Interpretation Comments NA (test code = 142 mmol/L 135-145 7974458366) K (test code = 3.8 mmol/L 3.5-5.0 5401790663) CL (test code = 106 mmol/L 98-108 0161011664) CO2 TOTAL (test code = 27 mmol/L 23-31 8477022942) AGAP (test code = 2-16 7684588046) BUN (test code = 76 mg/dL 7-23 H 0774182895) GLUCOSE (test code = 193 mg/dL 70-110 H 3589362903) CREATININE (test code = 6.07 mg/dL 0.60-1.25 H 2657642980) CALCIUM (test code = 9.1 mg/dL 8.6-10.6 6745837851) eGFR (test code = mL/min/1.73m2 4182173059) CANDY (test code = CANDY) Association of [...] tests). Lab Interpretation Abnormal (test code = 70844-1) [facility] [id number] 11:42:35 Test Item Value Reference Range Interpretation Comments MAGNESIUM (test code = 8573387766) 2.3 mg/dL 1.7-2.4 Lab Interpretation (test code = Normal 04465-5) [facility] with [id number] 11:10:11 Test Item Value Reference Range Interpretation Comments WBC (test code = See_Comment [Automated 7190-2) message] The sy stem which generated this result transmitted reference range : 4.20 - 10.70 10*3/?L. The reference range was not used to interpret this result as normal/abnormal . RBC (test code = See_Comment L [Automated 809-8) message] The sy stem which generated this [...] RDW-SD (test code = 45.0 fL 38.5-51.6 25969-7) RDW-CV (test code = 13.4 % 12.1-15.4 788-0) PLT (test code = See_Comment [Automated 777-3) message] The sy stem which generated this result transmitted reference range : 150 - 328 10*3/ ?L. The reference r mick was not used to interpret this result as normal/abnormal . MPV (test code = 10.6 fL 9.8-13.0 45224-8) NRBC/100 WBC (test See_Comment [Automat ed code = 9452948295) message] The system which generated this result transmitted reference range : 0.0 - 10.0 /100 WBCs. The refer ence range was not u sed to interpret th is result as normal/abnormal . NRBC x10^3 (test code <0.01 See_Comment [Auto mated = 9962025565) message] The s ystem which generated this result transmitted reference range : 10*3/?L. The reference range was not used to interpret this result as normal/abnormal . GRAN MAT (NEUT) % 67.1 % (test code = 770-8) IMM GRAN % (test code 0.30 % = [id number]) LYMPH % (test code = 21.3 % 736-9) MONO % (test code = 7.6 % 5905-5) EOS % (test code = 3.3 % 713-8) BASO % (test code = 0.4 % 706-2) GRAN MAT x10^3(ANC) 5.36 10*3/uL 1.99-6.95 (test code = 6823123676) IMM GRAN x10^3 (test <0.03 0.00-0.06 code = 3482828292) LYMPH x10^3 (test code 1.70 10*3/uL 1.09-3.23 = 731-0) MONO x10^3 (test code 0.61 10*3/uL 0.36-1.02 = 742-7) EOS x10^3 (test code = 0.26 10*3/uL 0.06-0.53 711-2) BASO x10^3 (test code 0.03 10*3/uL 0.01-0.09 = 704-7) Lab Interpretation Abnormal (test code = 91847-6) [facility] 05:54:27 Test Item Value Reference Range Interpretation Comments POCT GLU (test code = 9775970078) 218 mg/dL 70-110 H Lab Interpretation (test code = Abnormal 10387-9) [facility], [id number] 05:11:32 Test Item Value Reference Range Interpretation Comments VIT D 25OH (test code = 46 ng/mL 25-80 84362-2) CANDY (test code = CANDY) Deficiency: <20 ng/mLInsufficiency : 20-24 ng/mLOptimal: 25-80 ng/mL Lab Interpretation (test Normal code = 43218-7) [facility] B Core Antibody, [id number] 05:11:12 Test Item Value Reference Range Interpretation Comments HBC (test code = 9233597662) Negative HBC Semi-Quantitative (test code = 6283029829) [facility] [place], [place] B SURFACE [id number] 05:11:12 Test Item Value Reference Range Interpretation Comments HBsAB (test code = Negative 7307882489) HBsAb mIU/mL Semi-Quantitative (test code = 1218074733) CANDY (test code = Interpretation: CANDY) ?Hepatitis B Surface Antibody ? Negative - Patient is considered to be not immune to infection with HBV. ? ? Positive - Anti-HBs detected at greater than or equal to 12 mIU/mL. ?Patient is considered to be immune to infection with HBV. ? [facility] [place], [place] B SURFACE [id number] 04:53:21 Test Item Value Reference Range Interpretation Comments HBsAg Semi-Quantitative (test code = Negative Negative 5195-3) [facility] URINE [id number] 03:14:16 Test Item Value Reference Range Interpretation Comments T. PROT U (test code = 2888-6) 743 mg/dL [facility] 2 [id number] 02:58:28Impression: Nodular opacity overlying the left upper [...] Findings: ? There are relatively low lung volumes.There is an ill-defined nodularopacity overlying the left upper lobe in the frontal projection, measuringapproximately 1.8 cm. A definite correlate is not identified in the lateralprojection. The lungsare otherwise clear. No pleural effusions areevident. Heart size is borderline in size, allowing forthe AP techniqueand low lung volumes. The superior mediastinal silhouette is unremarkablefor age, projection, and degree of inspiration. [facility], Radiant Results Inft User - 10/22/2020 10:17 PM CDT Ordering Physician: JOJO MADRIGALHistory: Assess for pulmonary edema. Rule out pulmonary tuberculosis.Pretesting for dialysis procedure.Technique: Chest, 2 viewsTechnical quality: AdequateComparison: NoneFindings: There are relatively low lung volumes. There is an ill-defined nodularopacity overlying the left upper lobe in the frontal projection, measuringapproximately 1.8 cm. A definite correlate is not identified in the lateralprojection. The lungs are otherwise clear. No pleural effusions areevident. Heart size is borderline in size, allowingfor the AP techniqueand low lung volumes. The superior mediastinal silhouette is unremarkablefor age, projection, and degree of inspiration.IMPRESSIONImpression:Nodular opacity overlying the left upperlung, seen only in the APprojection. I cannot exclude pulmonary nodule related to infection orneoplasm. Further evaluation with CT of the chest is recommended if thereare no prior studies for comparison.RL: 460End of Report [facility]PO[facility] (AUTOMATED)2020-10-23 01:11:29 Test Item Value Reference Range Interpretation Comments POCT GLU (test code = 5949279552) 143 mg/dL 70-110 H Lab Interpretation (test code = Abnormal 48327-0) [facility]lands[facility]MOLALITY [id number] 00:56:19 Test Item Value Reference Range Interpretation Comments OSMO U (test code = See_Comment [Automa tianna message] 4487134836) The system Quip generated this result transmitted ref erence range: 50-1,100 mOsm/kg. The re ference range was not u sed to interpret this result as normal/abnor mal. Lab Interpretation (test Normal code = 36455-5) [facility]landsVITAMIN D, [id number] 00:10:49 Test Item Value Reference Range Interpretation Comments VIT D 25OH (test code = 39 ng/mL 25-80 37286-3) CANDY (test code = CANDY) Deficiency: <20 ng/mLInsufficiency : 20-24 ng/mLOptimal: 25-80 ng/mL Lab Interpretation (test Normal code = 42722-6) [facility]landsFERRITIN [id number] 23:38:41 Test Item Value Reference Range Interpretation Comments FERRITIN (test code = 51.5 ng/mL 18.0-464.0 6499513831) CANDY (test code = CANDY) Biotin has been reported to cause a negative bias, interpret results relative to patient's use of biotin. Lab Interpretation (test Normal code = 72122-5) [facility]landsTHYROID STIMULATING [id number] 23:34:40 Test Item Value Reference Range Interpretation Comments TSH (test code = See_Comment [Automated message] 7209944492) The system Quip generated this result transmitted ref erence range: 0.45 - 4 .70 mIU/L. The refe rence range was not u sed to interpret this result as normal/abnor mal. Lab Interpretation (test Normal code = 87024-6) [facility]landsN-TERMINAL [id number] 23:12:53 Test Item Value Reference Range Interpretation Comments NT-proBNP (test code 592 pg/mL See_Comment H [Autom ated = 4505091990) message] The system which generated this result transmitted reference range : <=125. The reference range was not used to interpret this result as normal/abnormal . CANDY (test code = CANDY) Biotin has been reported to cause a negative bias, interpret results relative to patient's use of biotin. Lab Interpretation Abnormal (test code = 29334-2) [facility]landsTOTAL IRON BINDING [id number] 23:12:53 Test Item Value Reference Range Interpretation Comments TIBC (test code = 3594559495) 326 ug/dL 250-410 Lab Interpretation (test code = Normal 77461-4) [facility]landsGLYCOSYLATED HEMOGLOBIN (A1C)2020-10-22 22:38:18 Test Item Value Reference Range Interpretation Comments HGB A1C (test code = 7.0 % 4.0-5.7 H 4548-4) CANDY (test code = CANDY) Reference RangesNormal: <5.7%Prediabetes: 5.7 - 6.4%Diabetes: > 6.5% Lab Interpretation (test Abnormal code = 27414-8) [facility]landsCREATINE [id number] 21:46:35 Test Item Value Reference Range Interpretation Comments CK (test code = 3313065774) 122 U/L 33-194 Lab Interpretation (test code = Normal 68897-8) [facility]landsFERRITIN [id number] 21:38:35 Test Item Value Reference Range Interpretation Comments FERRITIN (test code = 51.8 ng/mL 18.0-464.0 1519046273) CANDY (test code = CANDY) Biotin has been reported to cause a negative bias, interpret results relative to patient's use of biotin. Lab Interpretation (test Normal code = 79408-2) [facility]landsDRUG PANEL 2 [id number] 21:37:33 Test Item Value Reference Range Interpretation Comments AMPHET (test code = Negative Negative 2431463480) VIDAL U (test code = Negative Negative 6659288252) BENZO U (test code = Negative Negative 6328307009) Cocaine Metabolite (test Presumptive Positive Negative A code = 0204222844) METHADONE (test code = Negative Negative 5704335868) OPIATES (test code = Negative Negative 8573735852) PCP (test code = Negative Negative 0818991473) THC (test code = Negative Negative 7764988595) CANDY (test code = CANDY) Urine Drug [...] testing). Lab Interpretation (test Abnormal code = 06952-3) [facility]landsPHOSPHORUS2021-07-21 21:17:04 Test Item Value Reference Range Interpretation Comments PHOSPHORUS (test code = 5843120047) 5.3 mg/dL 2.5-5.0 H Lab Interpretation (test code = Abnormal 39883-1) [facility]landsTOTAL IRON BINDING [id number] 21:11:47 Test Item Value Reference Range Interpretation Comments TIBC (test code = 0128924797) 329 ug/dL 250-410 % FE SAT (test code = 0401646939) 18 % 20-50 L Lab Interpretation (test code = Abnormal 16401-7) [facility]landsPhosphorus [id number] 20:56:00 Test Item Value Reference Range Interpretation Comments PHOSPHORUS (test code = 3586689958) 5.3 mg/dL 2.5-5.0 H Lab Interpretation (test code = Abnormal 60970-6) [facility]landsURIC [id number] 20:55:40 Test Item Value Reference Range Interpretation Comments URIC ACID (test code = 8689331083) 11.0 mg/dL 3.6-8.0 H Lab Interpretation (test code = Abnormal 83718-9) [facility]landsIRON2021-07-21 20:55:24 Test Item Value Reference Range Interpretation Comments IRON (test code = 2117700244) 58 ug/dL 50-160 Lab Interpretation (test code = Normal 95447-7) [facility]landsCREATININE, URINE [id number] 20:52:05 Test Item Value Reference Range Interpretation Comments CREAT U (test code = 6304398938) 131.8 mg/dL [facility]landsSODIUM, URINE [id number] 20:36:37 Test Item Value Reference Range Interpretation Comments NA URINE (test code = 3635127965) 31 mmol/L [facility]landsPOTASSIUM, URINE [id number] 20:36:37 Test Item Value Reference Range Interpretation Comments K URINE (test code = 4197328211) 24.0 mmol/L [facility]landsURINALYSIS2021-07-21 20:22:33 Test Item Value Reference Range Interpretation Comments APPEARANCE (test code = Hazy Clear A 9798247763) COLOR (test code = Yellow Yellow 5280435127) PH (test code = 4.8-8.0 5991249885) SP GRAVITY (test code = 1.003-1.030 6688635404) GLU U QUAL (test code = 150 mg/dL Normal A 3945562452) BLOOD (test code = 1+ Negative A 8699056197) KETONES (test code = Negative Negative 4160515888) PROTEIN (test code = 500 mg/dL Negative A 2887-8) UROBILIN (test code = Normal Normal 1432111083) BILIRUBIN (test code = Negative Negative 2178391626) NITRITE (test code = Negative Negative 9025447890) LEUK MING (test code = Negative Negative 4889641446) RBC/HPF (test code = See_Comment [Autom ated message] 8353149069) The system Quip generated this result transmit tianna reference range : 0 - 3 HPF. The refe rence range was not u sed to interpret th is result as normal/abnormal . WBC/HPF (test code = See_Comment [Autom ated message] 5051749887) The system Quip generated this result transmit tianna reference range : 0 - 5 HPF. The refe rence range was not u sed to interpret th is result as normal/abnormal . BACTERIA (test code = Few Negative A 7374607163) MUCOUS (test code = Slight Negative LPF A 0670353476) AMORPHOUS (test code = Few Rare HPF A 3531903822) SQ EPITH (test code = HPF 8186884833) YEAST BUD (test code = See_Comment H [Aut omated message] 2604258156) The system Quip generated this result transmit tianna reference range : <=1 HPF. The refere nce range was not u sed to interpret th is result as normal/abnormal . SPERM (test code = See_Comment [Automat ed message] 4193391143) The system Quip generated this result transmit tianna reference range : <=1 HPF. The refere nce range was not u sed to interpret th is result as normal/abnormal . HYAL CAST (test code = See_Comment [Aut omated message] 6138540342) The system Quip generated this result transmit tianna reference range : <=2 LPF. The refere nce range was not u sed to interpret th is result as normal/abnormal . Lab Interpretation (test Abnormal code = 57513-2) [facility]landsCOVID-19 (ID NOW RAPID TESTING)2020-10-22 16:44:47 Test Item Value Reference Range Interpretation Comments SARS-CoV-2 Rapid ID NOW Not Detected Not Detected (test code = 69149-0) CANDY (test code = CANDY) ID NOW COVID-19 Assay is an isothermal nucleic acid amplification test intended for the qualitative detection of nucleic acid from SARS-CoV-2 viral RNA in nasopharyngeal (INTERNAL MEDICINE NURSE PRACTITIONER) specimens. It is used under Emergency Use [...] indicated. Lab Interpretation Normal (test code = 87397-5) [facility]landsTROPONIN [id number] 16:31:45 Test Item Value Reference Interpretation Comments Range TROPONIN I (test 0.014 ng/mL See_Comment [Automated code = 1720481285) message] The system which generated this result [...] biotin. Lab Interpretation Normal (test code = 46205-1) [facility]landsMAGNESIUM2021-07-21 16:20:42 Test Item Value Reference Range Interpretation Comments MAGNESIUM (test code = 2437052821) 2.2 mg/dL 1.7-2.4 Lab Interpretation (test code = Normal 23569-6) [facility]landsCOMP. METABOLIC PANEL (95082)2020-10-22 15:35:30 Test Item Value Reference Range Interpretation Comments NA (test code = 141 mmol/L 135-145 0248263743) K (test code = 4.0 mmol/L 3.5-5.0 9109515971) CL (test code = 104 mmol/L 98-108 9612124282) CO2 TOTAL (test code = 27 mmol/L 23-31 1565748762) AGAP (test code = 2-16 4415077497) BUN (test code = 80 mg/dL 7-23 H 6074895258) GLUCOSE (test code = 143 mg/dL 70-110 H 9761395840) CREATININE (test code = 6.40 mg/dL 0.60-1.25 H 6686943809) TOTAL BILI (test code = 0.4 mg/dL 0.1-1.3 4489895302) CALCIUM (test code = 9.4 mg/dL 8.6-10.6 5973572148) T PROTEIN (test code = 7.8 g/dL 6.3-8.2 0432976883) ALBUMIN (test code = 4.1 g/dL 3.5-5.0 9093651310) ALK PHOS (test code = 115 U/L 34-122 8319753885) ALTv (test code = 13 U/L 5-50 1742-6) AST(SGOT) (test code = 16 U/L 13-40 7850731953) eGFR (test code = mL/min/1.73m2 0561573852) CANDY (test code = CANDY) Association of [...] tests). Lab Interpretation Abnormal (test code = 56021-3) [facility] WITH [id number] 15:26:32 Test Item Value Reference Range Interpretation [...] RDW-SD (test code = 43.7 fL 38.5-51.6 95942-9) RDW-CV (test code = 13.2 % 12.1-15.4 788-0) PLT (test code = See_Comment [Automated 777-3) message] The sy stem which generated this result transmitted reference range : 150 - 328 10*3/ ?L. The reference r mick was not used to interpret this result as normal/abnormal . MPV (test code = 10.2 fL 9.8-13.0 15301-7) NRBC/100 WBC (test See_Comment [Automat ed code = 5644647103) message] The system which generated this result transmitted reference range : 0.0 - 10.0 /100 WBCs. The refer ence range was not u sed to interpret th is result as normal/abnormal . NRBC x10^3 (test code <0.01 See_Comment [Auto mated = 6392295986) message] The s ystem which generated this result transmitted reference range : 10*3/?L. The reference range was not used to interpret this result as normal/abnormal . GRAN MAT (NEUT) % 71.3 % (test code = 770-8) IMM GRAN % (test code 0.40 % = 3879756282) LYMPH % (test code = 15.5 % 736-9) MONO % (test code = 9.0 % 5905-5) EOS % (test code = 3.3 % 713-8) BASO % (test code = 0.5 % 706-2) GRAN MAT x10^3(ANC) 5.77 10*3/uL 1.99-6.95 (test code = 0661565455) IMM GRAN x10^3 (test 0.03 10*3/uL 0.00-0.06 code = 3499381639) LYMPH x10^3 (test code 1.25 10*3/uL 1.09-3.23 = 731-0) MONO x10^3 (test code 0.73 10*3/uL 0.36-1.02 = 742-7) EOS x10^3 (test code = 0.27 10*3/uL 0.06-0.53 711-2) BASO x10^3 (test code 0.04 10*3/uL 0.01-0.09 = 704-7) Lab Interpretation Abnormal (test code = 02700-0) [facility]"
[2022-04-02 13:31] LABS: Absolute Lymphocytes (CBC) 1.2 K/uL (0.7-4.9); Lymphocytes % 16.6 % (15.3-44.8); MCV 91.4 fL (80-100); MPV 8.3 fL (7.6-11.3); RBC Red Blood Cell Count 3.28 M/uL (4.33-5.43)
[2022-04-02 14:09] LABS: SARS-COV-2 RT PCR NEGATIVE (NEGATIVE)
--- NOTE | 2022-04-02 14:25 | RAD REPORT ---
EXAM DESCRIPTION: [place] Single View04/02/2022 2:18 pm CLINICAL HISTORY: Catheter malfunction. malasie COMPARISON: 2020 FINDINGS: The lungs appear clear of acute infiltrate. The heart is mildly enlarged. Central venous catheter in place IMPRESSION: No acute abnormalities displayed
--- NOTE | 2022-04-02 15:46 | RAD REPORT ---
EXAM DESCRIPTION: US - Extremity Nonvascular Limited - 04/02/2022 3:27 pm CLINICAL HISTORY: AV fistula not functioning properly COMPARISON: None FINDINGS: Examination is somewhat limited as the patient was in pain and declined to have a complete examination performed. The av fistula within the arm appears patent. The brachial and basilic veins appear patent. 1.6 centimeter heterogeneous collection near the superior aspect of the fistula may represent a small hematoma IMPRESSION: 1.6 centimeter probable hematoma. No gross abnormality of the AV fistula is seen
--- NOTE | 2022-04-02 17:12 | EDPHYS ---
Physician Documentation [facility] Name: Wild Koenig Age: 56 yrs Sex: Male : 1965 Arrival Date: 04/02/2022 Time: 12:15 Bed 13 Private MD: ED Physician Jani Carey HPI: 04/02 16:24 This 56 yrs old Male presents to ER via EMS with complaints of fistula not kb working. 16:24 Pt went to dialysis today and they were unable to access catheter or fistula so he was kb sent here. Pt also reports malaise and fatigue for a couple of days. . Onset: The symptoms/episode began/occurred today. Severity of symptoms: At their worst the symptoms were very mild in the emergency department the symptoms are unchanged. The patient has not experienced similar symptoms in the past. The patient has not recently seen a physician. Historical: - Allergies: 12:25 No Known Allergies; kb3 - PMHx: 12:25 Anxiety; chronic back pain; Congestive heart failure; Depression; Diabetes - IDDM; kb3 Hypertension; - PSHx: 12:25 Right upper arm fistula; kb3 - Immunization history:: Adult Immunizations up to date, Client reports receiving the 2nd dose of the Covid vaccine, Last tetanus immunization: up to date. - Social history:: Smoking status: Patient denies any tobacco usage or history of. ROS: 16:24 Respiratory: Negative for shortness of breath, cough, wheezing, and pleuritic chest kb pain. 16:24 Constitutional: Positive for body aches, fatigue, malaise. 16:24 All other systems are negative. Exam: 16:24 Constitutional: This is a well developed, well nourished patient who is awake, alert, kb and in no acute distress. Head/Face: Normocephalic, atraumatic. ENT: Moist Mucous membranes Cardiovascular: Regular rate and rhythm with a normal S1 and S2. No gallops, murmurs, or rubs. No pulse deficits. Respiratory: Respirations even and unlabored. No increased work of breathing. Talking in full sentences Abdomen/GI: Soft, non-tender. No distention Skin: Warm, dry with normal turgor. Normal color. MS/ Extremity: Pulses equal, no cyanosis. Neurovascular intact. Full, normal range of motion. Neuro: Awake and alert, GCS 15, oriented to person, place, time, and situation. Moves all extremities. Normal gait. Psych: Awake, alert, with orientation to person, place and time. Behavior, mood, and affect are within normal limits. 16:24 Chest/axilla: Inspection: dialysis cath to left upper chest. 16:24 Musculoskeletal/extremity: dialysis fistula left arm. Vital Signs: 12:27 BP 115 / 67; Pulse 57; Resp 18; Temp 97.6; Pulse Ox 99% ; Weight 132.9 kg; Height 5 ft. kb3 10 in. (177.80 cm); Pain 0/10; 15:23 BP 137 / 62; Pulse 56; Resp 18; Pulse Ox 100% ; kb3 19:32 BP 143 / 68; Pulse 57; Resp 18; Pulse Ox 96% on R/A; jb4 12:27 Body Mass Index 42.04 (132.90 kg, 177.80 cm) kb3 MDM: 12:19 Patient medically screened. kb 16:23 Data reviewed: vital signs, nurses notes. Data interpreted: Pulse oximetry: on room air kb is 100 %. Interpretation: normal. Counseling: I had a detailed discussion with the patient and/or guardian regarding: the historical points, exam findings, and any diagnostic results supporting the discharge/admit diagnosis, lab results, radiology results, the need to transfer to another facility. 16:23 ED course: Director [employer] called and requested pt be transferred to facility with IR or kb vascular surgery to evaluate and fix fistula. 17:11 ED course: Dr Ortega accepts pt to [place]. kb 04/02 12:29 Order name: COVID-19/FLU A+B; Complete Time: 14:10 kb 04/02 12:29 Order name: CBC with Diff; Complete Time: 13:46 kb 04/02 12:29 Order name: Basic Metabolic Panel; Complete Time: 13:56 kb 04/02 14:09 Order name: Chest Single View XRAY; Complete Time: 14:26 kb 04/02 15:28 Order name: Extremity Nonvascular Limited; Complete Time: 15:58 EDMS 04/02 12:29 Order name: IV Start; Complete Time: 17:32 kb Administered Medications: No medications were administered Disposition: 04/03 07:02 Co-signature as Attending Physician, Jani Carey MD I agree with the assessment and rn plan of care. Attestation: The patient's history, exam findings, diagnostics, and a summary of any interventions or procedures was reviewed in detail with Marjorie HAMMER. Disposition Summary: 04/02/22 17:12 Transfer Ordered Transfer Location: [facility] kb Reason: Higher level of care kb Condition: Stable kb Problem: new kb Symptoms: are unchanged kb Accepting Physician: Shannon(04/02/22 19:33) jb4 Diagnosis - Nonfunctioning dialysis fistula kb Forms: - Medication Reconciliation Form kb - SBAR form kb Signatures: Dispatcher [employer] EDCA Marjorie Soto FNP-C FNP-Ckb Nieto, Roman, MD MD rn Bryson, James RN RN jb4 Juju Raygoza RN RN kb3 Corrections: (The following items were deleted from the chart) 04/02 12:27 12:25 PMHx: Diabetes - NIDDM; kb3 kb3 15:28 14:30 Extremity Venous [employer]+US.RAD.BRZ ordered. [facility] 16:24 16:23 Counseling: I had a detailed discussion with the patient and/or guardian emilio regarding: the historical points, exam findings, and any diagnostic results supporting the discharge/admit diagnosis, lab results, radiology results, the need for further work-up and treatment in the hospital, 19:33 17:12 Shannon jhaveri jb4
--- NOTE | 2022-04-02 17:12 | ER ---
Nurse's Notes [facility] Name: Wild Koenig Age: 56 yrs Sex: Male : 1965 Arrival Date: 04/02/2022 Time: 12:15 Bed 13 Private MD: Diagnosis: Nonfunctioning dialysis fistula Presentation: 04/02 12:23 Chief complaint: EMS states: pt was transported from [facility], kb3 dialysis nurse stating that his left IJ dialysis catheter was not working and his left upper arm shunt has not been working for approximately 1 month. PT has been [facility] [place] [facility] but has not done so. Pt has no complaints. Last dialysis was completed on Tue through the left IJ dialysis catheter. Coronavirus screen: Vaccine status: Patient reports receiving the 2nd dose of the covid vaccine. Client denies travel out of the [place] in the last 14 days. Ebola Screen: Patient negative for fever greater than or equal to 101.5 degrees Fahrenheit, and additional compatible Ebola Virus Disease symptoms Patient denies exposure to infectious person. Patient denies travel to an Ebola-affected area in the 21 days before illness onset. Initial Sepsis Screen: Does the patient meet any 2 criteria? No. Patient's initial sepsis screen is negative. Does the patient have a suspected source of infection? No. Patient's initial sepsis screen is negative. Risk Assessment: Do you want to hurt yourself or someone else? Patient reports no desire to harm self or others. Onset of symptoms was April 02, 2022 at 11:30. 12:23 Method Of Arrival: EMS: [facility] kb3 12:23 Acuity: MYNOR 3 kb3 Triage Assessment: 12:25 General: Appears in no apparent distress. Behavior is calm, cooperative. Pain: Denies kb3 pain. Historical: - Allergies: 12:25 No Known Allergies; kb3 - PMHx: 12:25 Anxiety; chronic back pain; Congestive heart failure; Depression; Diabetes - IDDM; kb3 Hypertension; - PSHx: 12:25 Right upper arm fistula; kb3 - Immunization history:: Adult Immunizations up to date, Client reports receiving the 2nd dose of the Covid vaccine, Last tetanus immunization: up to date. - Social history:: Smoking status: Patient denies any tobacco usage or history of. Screenin:30 [facility] ED Fall Risk Assessment (Adult) History of falling in the last 3 months, kb3 including since admission No falls in past 3 months (0 pts) Confusion or Disorientation No (0 pts) Intoxicated or Sedated No (0 pts) Impaired Gait Yes (1 pt) Mobility Assist Device Used Yes (1 pt) Altered Elimination No (0 pt) Score/Fall Risk Level 0 - 2 = Low Risk Oriented to surroundings, Maintained a safe environment, Educated pt \T\ family on fall prevention, incl call for assistance when getting out of bed, Assessed \T\ reinforced patient's understanding of fall precautions, Provided non-skid footwear, Hourly rounding (assess needs \T\ fall precautionary measures) done, Used ambulatory aids as needed (educated on \T\ assisted with), Used gait belt as appropriate. Abuse screen: Denies threats or abuse. Denies injuries from another. Nutritional screening: No deficits noted. Tuberculosis screening: No symptoms or risk factors identified. Assessment: 12:30 General: see triage note. Syringes remain attached to left IJ dialysis catheter from 3 dialysis clinic. 15:17 General: Pt resting comfortably. Spoke with cable driller to notify of Perma-cath [facility] accessed currently with syringes in place. filter press pumper will come to ER to assess catheter when he finishes current treatment. MD and charge nurse notified. 17:26 General: Reports called to [place] [facility] for pt transport. Consent form signed. kb3 17:40 General: EMS en route, ETA 60 minutes. kb3 19:32 Reassessment: Patient appears in no apparent distress at this time. Patient and/or jb4 family updated on plan of care and expected duration. Pain level reassessed. Patient is alert, oriented x 3, equal unlabored respirations, skin warm/dry/pink. Vital Signs: 12:27 BP 115 / 67; Pulse 57; Resp 18; Temp 97.6; Pulse Ox 99% ; Weight 132.9 kg; Height 5 ft. kb3 10 in. (177.80 cm); Pain 0/10; 15:23 BP 137 / 62; Pulse 56; Resp 18; Pulse Ox 100% ; kb3 19:32 BP 143 / 68; Pulse 57; Resp 18; Pulse Ox 96% on R/A; jb4 12:27 Body Mass Index 42.04 (132.90 kg, 177.80 cm) kb3 ED Course: 12:15 Patient arrived in ED. eb 12:19 Marjorie S[facility]-C [facility] kb 12:19 Jani Carey MD is Attending Physician. kb 12:22 Juju Raygoza, RN is Primary Nurse. kb3 12:25 Triage completed. kb3 12:25 Arm band placed on right wrist. kb3 12:30 Patient has correct armband on for positive identification. Bed in low position. Call kb3 light in reach. Side rails up X2. Warm blanket given. 12:30 No provider procedures requiring assistance completed. Missed attempt(s): 22 gauge in kb3 right forearm. blood collected and IV blown with flushing. Bleeding controlled, band aid applied, catheter tip intact. 14:20 Chest Single View XRAY In Process Unspecified. EDMS 15:28 Extremity Nonvascular Limited In Process Unspecified. EDMS 17:00 Missed attempt(s): 22 gauge in right hand. iw 17:15 Inserted saline lock: 22 gauge in right forearm, using aseptic technique. kb3 17:26 Patient transferred, IV remains in place. kb3 Administered Medications: No medications were administered Medication: 12:30 VIS not applicable for this client. kb3 Outcome: 17:12 ER care complete, transfer ordered by . kb 17:25 Transferred by ground EMS to [facility] Transfer form completed. kb3 17:25 Transferred 17:25 Condition: stable 17:25 Instructed on the need for transfer. 19:33 Patient left the ED. jb4 Signatures: Dispatcher [employer] EDMS Marjorie Soto FNP-C FNP-Ana Garner RN MARISABEL Neo Ibrahim RN RN jb4 Manisha Lincoln Kelly, RN RN kb3 Corrections: (The following items were deleted from the chart) 12:27 12:25 PMHx: Diabetes - NIDDM; kb3 kb3 17:25 12:23 Chief complaint: EMS states: pt was transported from [place] [id number] [facility] with dialysis nurse stating that his right Perma-Cath was not working and his right upper arm shunt is not yet working. PT has been instructed [facility] [place] [facility] shunt but has not done so. Pt has no complaints. Last dialysis was completed on Tue through the right chest Perma-cath. kb3 17:57 12:30 General: see triage note. Syringes remain attached to left chest Perma-cath from kb3 dialysis clinic. kb3
[2022-04-02 20:03] VITALS: TEMP 97.6
[2022-04-02 20:04] VITALS: BP 143/68; O2SAT 96
== END 2022-04-02 19:33 ==
LOC: ER 12:13
DX: T82.590A Other mechanical complication of surgically created arteriovenous fistula, initial encounter (principal); R53.81 Other malaise; R53.83 Other fatigue; Z20.822 Contact with and (suspected) exposure to COVID-19
CPT/HCPCS: 85025; 80048; 36415; 0240U; 71045; 76882; 99285

== ENCOUNTER 2023-11-17 15:14 | Inpatient (IN) | payer MEDICARE, OTHER ==
[2023-11-17 16:33] LABS: Absolute Basophils 0.3 K/uL (0-0.5); Absolute Eosinophils 0.5 K/uL (0-0.5); Absolute Lymphocytes (CBC) 1.4 K/uL (0.7-4.9); Absolute Neutrophil 18.7 K/uL (1.8-8.0); Basophils % 1.3 % (0-1.3); MCH 30.3 pg (27.0-35.0); MCHC 32.1 g/dL (32.0-36.0); MCV 94.5 fL (80-100); MPV 8.7 fL (7.6-11.3); Monocytes % 8.6 % (3.3-12.3); Neutrophils % 82.1 % (41.7-73.7); Nucleated Red Blood Cells % 0.2 % (0-0); Platelets 339 thou/uL (152-406); RBC Red Blood Cell Count 2.97 M/uL (4.33-5.43); Red Cell Distribution Width 14.6 % (12.1-15.2)
--- NOTE | 2023-11-17 16:44 | RAD REPORT ---
EXAM DESCRIPTION: US - Extremity Venous Uni Ltd - 11/17/2023 4:40 pm CLINICAL HISTORY: PAIN Leg swelling and edema. COMPARISON: No comparisons FINDINGS: Left lower extremity venous system was interrogated with Doppler technique. Normal flow, c ompressibility and augmentation was noted. There is no DVT present. IMPRESSION: No evidence of left lower extremity deep venous thrombosis.
--- NOTE | 2023-11-17 16:44 | RAD REPORT ---
EXAM DESCRIPTION: RAD - Foot Left 2 View - 11/17/2023 4:31 pm CLINICAL HISTORY: PAIN COMPARISON: No comparisons FINDINGS: Large plantar calcaneal spur. Small soft tissue ulceration seen along the mid plantar foot . Small radiopaque foreign body may be present under the skin surface near the heel pad. No fracture or dislocation. No evidence osteomyelitis radiographically.
[2023-11-17 17:12] LABS: Differential Total Cells Count 100; Eosinophils 2 % (0-3); Lymphocytes 6 % (15-42); Monocytes 6 % (0-10); Segmented Neutrophils 86 % (40-80)
[2023-11-17 17:13] LABS: Blood Morphology Comment NOTED (NOT SEEN); Hypochromasia 2+; Platelet Estimate ADEQ; Platelets Clumped FEW
[2023-11-17 17:22] LABS: Albumin 2.6 g/dL (3.4-5.0); Albumin/Globulin Ratio 0.5 (1.1-1.8); Anion Gap 17.9 mEq/L (5.0-15.0); Bilirubin Total 0.4 mg/dL (0.2-1.0); Globulin 4.8 g/dL (2.3-3.5); Potassium 4.9 mEq/L (3.5-5.1); Protein, Total 7.4 g/dL (6.4-8.2)
[2023-11-17] MEDS ORDERED: NA CHLORIDE 0.9% 250 ML ONE (18:08)
[2023-11-17] MEDS ORDERED: VANCOMYCIN 1 GM/VIAL ONE (18:08)
--- NOTE | 2023-11-17 18:18 | ER ---
Nurse's Notes [facility] Name: Wild Koenig Age: 58 yrs Sex: Male : 1965 Arrival Date: 11/17/2023 Time: 15:14 Bed 8 Private MD: Diagnosis: Cutaneous abscess of left foot Presentation: 11/16 15:28 Chief complaint: Patient states: has a pressure sore on back of left heel. Coronavirus iw screen: At this time, the client does not indicate any symptoms associated with coronavirus-19. Ebola Screen: No symptoms or risks identified at this time. Initial Sepsis Screen: Does the patient meet any 2 criteria? No. Patient's initial sepsis screen is negative. Does the patient have a suspected source of infection? No. Patient's initial sepsis screen is negative. Risk Assessment: Do you want to hurt yourself or someone else? Patient reports no desire to harm self or others. Onset of symptoms was November 07, 2023. 15:28 Acuity: MYNOR 3 iw 15:28 Method Of Arrival: Wheelchair iw Historical: - Allergies: 15:31 No Known Allergies; iw - PMHx: 15:29 Anxiety; chronic back pain; Congestive heart failure; Depression; Diabetes - IDDM; iw Hypertension; - PSHx: 15:29 right upper arm fistula; iw - Immunization history:: Adult Immunizations up to date. - Infectious Disease History:: Denies. - Social history:: Smoking status: Patient denies any tobacco usage or history of. Screenin:40 [facility] ED Fall Risk Assessment (Adult) History of falling in the last 3 months, me1 including since admission No falls in past 3 months (0 pts) Confusion or Disorientation No (0 pts) Intoxicated or Sedated No (0 pts) Impaired Gait No (0 pts) Mobility Assist Device Used No (0 pt) Altered Elimination No (0 pt) Score/Fall Risk Level 0 - 2 = Low Risk Maintained a safe environment, Provided non-skid footwear, Hourly rounding (assess needs \T\ fall precautionary measures) done. Abuse screen: Denies threats or abuse. Nutritional screening: No deficits noted. Tuberculosis screening: No symptoms or risk factors identified. Assessment: 15:40 General: Appears comfortable, well groomed, well developed, well nourished, Behavior is me1 calm, cooperative, appropriate for age, Reports wound to left foot that he noticed about 10 days ago. Pain: Denies pain. Neuro: Level of Consciousness is awake, alert, obeys commands, Oriented to person, place, time, situation, Appropriate for age. Cardiovascular: Patient's skin is warm and dry. Respiratory: Airway is patent Trachea midline Respiratory effort is even, unlabored, Respiratory pattern is regular, symmetrical. GI: No signs and/or symptoms were reported involving the gastrointestinal system. : No signs and/or symptoms were reported regarding the genitourinary system. EENT: No signs and/or symptoms were reported regarding the EENT system. Derm: DTI to plantar surface and lateral aspect of left foot that patient noticed about 10 days ago. Musculoskeletal: No signs and/or symptoms reported regarding the musculoskeletal system. 19:20 Reassessment: Patient appears in no apparent distress at this time. No changes from al5 previously documented assessment. Patient and/or family updated on plan of care and expected duration. Pain level reassessed. Patient is alert, oriented x 3, equal unlabored respirations, skin warm/dry/pink. patient resting comfortably in bed at this time. patient notified that he has a room upstairs and will be transferring him to room here shortly. Vital Signs: 15:28 BP 130 / 79; Pulse 66; Resp 18; Temp 98.2; Pulse Ox 94% on R/A; Weight 104.33 kg; iw Height 5 ft. 9 in. ; Pain 6/10; 16:40 BP 113 / 55; Pulse 58; Resp 16; Pulse Ox 96% on R/A; me1 17:30 BP 114 / 58; Pulse 57; Resp 16; Pulse Ox 95% ; me1 18:00 BP 126 / 60; Pulse 59; Resp 16; Pulse Ox 95% ; me1 18:54 BP 136 / 92; Pulse 59; Resp 16; Pulse Ox 95% on R/A; me1 19:21 BP 140 / 62; Pulse 58; Resp 18; Pulse Ox 95% on R/A; al5 15:28 Body Mass Index 33.96 (104.33 kg, 175.26 cm) iw 15:28 Pain Scale: Adult iw ED Course: 15:16 Patient arrived in ED. mr 15:21 James Ramírez PA is PHCP. cp 15:21 James Severino MD is Attending Physician. cp 15:29 Triage completed. iw 15:32 Arm band placed on. iw 15:40 Patient has correct armband on for positive identification. Bed in low position. Call me1 light in reach. Side rails up X2. Provided Education on: POC. Verbalized understanding. . Client placed on continuous cardiac and pulse oximetry monitoring. NIBP monitoring applied. Pulse ox on. NIBP on. 15:42 Edwar Guerra, RN is Primary Nurse. rs5 16:23 Accessed peripheral vein via ultrasound, utilizing dynamic ultrasound technique using ha1 ,sterile technique, per hospital protocol. Good blood return. Flushes easily. 20 G LAC. 16:33 XRAY Foot LEFT 2 View In Process Unspecified. EDMS 16:41 US Extremity Venous Unilateral Ltd In Process Unspecified. EDMS 16:51 No provider procedures requiring assistance completed. me1 18:17 Moris Nobles MD is Hospitalizing Provider. cp 18:45 First set of blood cultures drawn by me. cc6 19:02 Second set of blood cultures drawn by me. me1 19:05 Primary Nurse role handed off by Edwar Guerra, MARISABEL al5 19:05 Trish Gordon, MARISABEL is Primary Nurse. al5 Administered Medications: 19:04 Drug: vancoMYCIN IVPB 1 grams IVPB once over 2 hrs Route: IVPB; Infused Over: 2 hrs; me1 Site: left antecubital; Medication: 15:40 VIS not applicable for this client. me1 Outcome: 18:18 Decision to Hospitalize by Provider. cp 21:29 Patient left the ED. jb4 Signatures: Dispatcher [employer] EDOH McclainOanh, Reg Reg mr Ana Hubbard, RN RN iw James Ramírez PA PA cp Neo Ibrahim, RN RN jb4 Therese Hylton, RN RN 1 Edwar Guerra, RN MARISABEL rs5 Lacy Lerma RN RN [facility] Trish Gordon RN RN alParadise Clarke, MARISABEL RN cc6 Corrections: (The following items were deleted from the chart) 15:41 15:28 BP 130 / 79; iw iw 16:19 15:28 Chief complaint: Patient states: has a pressure sore on back of left heel iw me1
--- NOTE | 2023-11-17 18:19 | EDPHYS ---
Physician Documentation [facility] Name: Wild Koenig Age: 58 yrs Sex: Male : 1965 Arrival Date: 11/17/2023 Time: 15:14 Bed 8 Private MD: ED Physician James Severino HPI: 11/16 16:05 This 58 yrs old Male presents to ER via Wheelchair with complaints of Skin cp Sore(s). 16:05 The patient presents with pain, that is acute. cp 16:05 The complaints affect the heel of left foot. Onset: The symptoms/episode began/occurred cp 1 week(s) ago. Associated signs and symptoms: Pertinent positives: warmth, erythema, drainage, Pertinent negatives: calf tenderness, fever. Severity of symptoms: in the emergency department the symptoms are actually worse, moderately. Historical: - Allergies: 15:31 No Known Allergies; iw - PMHx: 15:29 Anxiety; chronic back pain; Congestive heart failure; Depression; Diabetes - IDDM; iw Hypertension; - PSHx: 15:29 right upper arm fistula; iw - Immunization history:: Adult Immunizations up to date. - Infectious Disease History:: Denies. - Social history:: Smoking status: Patient denies any tobacco usage or history of. ROS: 16:10 MS/extremity: Positive for erythema, pain, swelling, tenderness, warmth, of the heel of cp left foot, 16:10 Constitutional: Negative for fever, poor PO intake, cp 16:10 Respiratory: Negative for cough, shortness of breath, wheezing, 16:10 Abdomen/GI: Negative for abdominal pain, 16:10 Neuro: Negative for altered mental status, headache, 16:10 All other systems are negative, Exam: 16:15 Constitutional: The patient appears in no acute distress, alert, awake, cp non-diaphoretic, non-toxic, well developed, well nourished, 16:15 Head/Face: Normocephalic, atraumatic. cp 16:15 Eyes: Periorbital structures: appear normal, Conjunctiva: normal, no exudate, no injection, Sclera: no appreciated abnormality, Lids and lashes: appear normal, bilaterally, 16:15 ENT: External ear(s): are unremarkable, Nose: is normal, Mouth: Lips: moist, Oral mucosa: moist, Posterior pharynx: Airway: no evidence of obstruction, patent, 16:15 Chest/axilla: Inspection: normal, 16:15 Cardiovascular: Rate: bradycardic, Rhythm: regular, Edema: is not appreciated, JVD: is not appreciated, 16:15 Respiratory: the patient does not display signs of respiratory distress, Respirations: normal, no use of accessory muscles, no retractions, labored breathing, is not present, Breath sounds: are clear throughout, no decreased breath sounds, no stridor, no wheezing, 16:15 Abdomen/GI: Inspection: abdomen appears normal, 16:15 Musculoskeletal/extremity: Extremities: noted in the left foot: large abscess of left heel, tenderness, mild erythema, no open wound, weak pulse noted left dorsalis pedis. 16:15 Neuro: Orientation: to person, place \T\ time. Mentation: is normal, Vital Signs: 15:28 BP 130 / 79; Pulse 66; Resp 18; Temp 98.2; Pulse Ox 94% on R/A; Weight 104.33 kg; iw Height 5 ft. 9 in. ; Pain 6/10; 16:40 BP 113 / 55; Pulse 58; Resp 16; Pulse Ox 96% on R/A; me1 17:30 BP 114 / 58; Pulse 57; Resp 16; Pulse Ox 95% ; me1 18:00 BP 126 / 60; Pulse 59; Resp 16; Pulse Ox 95% ; me1 18:54 BP 136 / 92; Pulse 59; Resp 16; Pulse Ox 95% on R/A; me1 19:21 BP 140 / 62; Pulse 58; Resp 18; Pulse Ox 95% on R/A; al5 15:28 Body Mass Index 33.96 (104.33 kg, 175.26 cm) iw 15:28 Pain Scale: Adult iw MDM: 15:46 Patient medically screened. cp 18:20 Data reviewed: vital signs, nurses notes, lab test result(s), radiologic studies, plain cp films. 18:20 Differential diagnosis: cellulitis, osteomyelitis, sepsis. Management of patient was cp discussed with the following: Hospitalist: Anai Barnett NP. Care significantly affected by the following chronic conditions: Diabetes, Hypertension, Chronic Kidney Disease. Counseling: I had a detailed discussion with the patient and/or guardian regarding the historical points, exam findings, and any diagnostic results supporting the discharge/admit diagnosis, lab results, radiology results. Response to treatment: the patient's symptoms have mildly improved after treatment. 11/16 15:57 Order name: CBC with Diff; Complete Time: 17:42 11/16 17:13 Interpretation: Normal except: WBC 22.80; RBC 2.97; HGB 9.0; HCT 28.0; CONNER% 82.1; LYM% cp 6.0; NEUT A 18.7; MNA 2.0. 11/16 15:57 Order name: CMP; Complete Time: 17:42 cp 11/16 17:42 Interpretation: Normal except: NA 129; CL 94; ANION GAP 17.9; GLUC 119; BUN 85; CRE cp 14.00; GFR 4; AST 12; ALT 15; ALK 183; ALB 2.6; GLOB 4.8; A/G 0.5. 11/16 15:57 Order name: Lactate w/ 2H reflex if indic. 11/16 16:51 Order name: Glucose, Ancillary Testing; Complete Time: 17:13 EDKS 11/16 17:12 Order name: Manual Differential; Complete Time: 17:42 EDKS 11/16 18:21 Order name: Blood Culture Adult (2) 11/16 18:43 Order name: Comprehensive Metabolic Panel EDKS 11/16 18:44 Order name: Comprehensive Metabolic Panel [facility] 11/16 18:44 Order name: PTT, Activated Partial Thromb EDKS 11/16 18:44 Order name: PTT, Activated Partial Thromb [facility] 11/16 15:57 Order name: XRAY Foot LEFT 2 View; Complete Time: 16:48 11/16 16:48 Interpretation: Report reviewed. 11/16 15:57 Order name: US Extremity Venous Unilateral Ltd; Complete Time: 16:48 11/16 18:41 Order name: CONS Physician Consult EDKS 11/16 15:57 Order name: Accucheck Blood Glucose; Complete Time: 16:41 11/16 15:57 Order name: IV; Complete Time: 16:23 cp Administered Medications: 19:04 Drug: vancoMYCIN IVPB 1 grams IVPB once over 2 hrs Route: IVPB; Infused Over: 2 hrs; me1 Site: left antecubital; Disposition Summary: 11/17/23 18:18 Hospitalization Ordered Notes: Hospitalization Status: Inpatient Admission cp Provider: Moris Nobles cp Location: Telemetry/MedSurg (Inpatient) cp Condition: Stable cp Problem: new cp Symptoms: have improved cp Bed/Room Type: Standard cp Room Assignment: 225(11/17/23 19:13) sa1 Diagnosis - Cutaneous abscess of left foot cp Forms: - Medication Reconciliation Form cp - SBAR form cp - Leadership Thank You Letter cp Addendum: 11/24/2023 01:43 Co-signature as Attending Physician, James Severino MD I agree with the assessment and c pickett plan of care. Signatures: Dispatcher [employer] EDMS James Severino MD MD cha Williams, Irene, RN RN James Ramírez, PA PA cp Lacy Lerma, MARISABEL RN nc1 Sultan Christa 1 Corrections: (The following items were deleted from the chart) 11/16 17:12 16:42 CBC Smear Scan ordered. EDMS EDMS 18:21 18:21 BLOOD CULTURE*+[id number].LAB.BRZ ordered. EDMS EDMS 19:13 18:18 cp sa1
[2023-11-17] MEDS ORDERED: ONDANSETRON 4 MG/2 ML VIAL IV PRN (18:39)
[2023-11-17] MEDS ORDERED: PIPER TAZO 2.25 GM in NA CHLORIDE 0.9% 50 ML IV SCH (18:47)
--- NOTE | 2023-11-17 18:47 | P.HP ---
Certification for Inpatient With expected LOS: >2 Midnights Practitioner: I am a practitioner with admitting privileges, knowledge of patient current condition, hospital course, and medical plan of care. Services: Services provided to patient in accordance with Admission requirements found in Title 42 Section 412.3 of the Code of Federal Regulations Patient History Date of Service: 11/17/23 Reason for admission: Left foot abscess History of Present Illness: Patient is 58 years of age with a history of end-stage renal disease on dialysis has been complaining of pain and swelling of the left foot become worse ended up in the hospital he has an abscess no other complaint Allergies No Known Allergies Allergy (Verified 05/03/19 04:58) Home Medications: Gabapentin 300 mg PO DAILY 11/15/19 Insulin Detemir [Levemir Flextouch] 33 units SQ BID 11/15/19 Calcitrol [Rocaltrol*] 0.5 mcg PO DAILY #60 cap 11/19/19 Furosemide [Lasix] 80 mg PO BID #60 tablet 11/19/19 carvediloL [Coreg*] 25 mg PO BID #60 tab 11/19/19 hydrOXYzine HCL [Atarax] 50 mg PO Q6HR PRN 12/24/20 ARIPiprazole [Aripiprazole] 1 tab PO DAILY 12/25/20 Aspirin [Vazalore] 1 tab PO DAILY 12/25/20 Atorvastatin Calcium 1 tab PO BEDTIME 12/25/20 Insulin -Regular Human [Novolin -R*] 11 units SQ TIDWM 12/25/20 Trazodone [Desyrel*] 100 mg PO BEDTIME 12/25/20 Amlodipine [Norvasc*] 5 mg PO DAILY 30 Days #30 tab 01/05/21 Doxazosin Mesylate [Cardura] 2 mg PO BID 30 Days #60 tablet 01/05/21 Cefazolin 2 gm in 0.9% NaCl [Ancef 2 Gm/100 ML NS] 2 gm IV M,W,F 14 Days bag 01/20/21 Cholecalciferol (Vitamin D3) [Vitamin D 5,000 IU Cap*] 5,000 unit PO DAILY #30 cap 01/20/21 Epoetin [Retacrit] 10,000 unit SQ M,W,F vial 01/20/21 Fluticasone [Flonase 50MCG Nasal [place]*] 2 sprays ANALILIA BID #1 btl 01/20/21 Heparin [Heparin 1,000 units/mL *] 3,000 unit IV EVERY HD vial 01/20/21 Heparin [Heparin 1,000 units/mL *] 6,000 unit IV EVERY HD PRN vial 01/20/21 Lidocaine 4% Patch [Lidoderm 5% Patch*] 1 patch TOP BEDTIME #10 patch 01/20/21 Mannitol 25% [Mannitol*] 12.5 gm IV EVERY HD PRN vial 01/20/21 - Past Medical/Surgical History Diabetic: Yes -: Chronic Back Pain -: Hypertension -: Diabetes mellitus type 2 insulin dependent -: Depression Anxiety -: Anxiety -: ESRD on HD -: Chronic diastolic congestive heart failure -: Morbid obesity -: eye surgery -: Dialysis catheter insertion right anterior chest wall Psychosocial/ Personal History: Patient lives with aunt - Social History Smoking Status: Never smoker Alcohol use: No CD- Drugs: No Caffeine use: No Review of Systems 10-point ROS is otherwise unremarkable Physical Examination - Vital Signs Temperature: 98.2 F Blood Pressure: 130/79 Pulse: 66 Respirations: 18 Pulse Ox (%): 94 - Physical Exam General: Alert, In no apparent distress, Oriented x3 Neck: Supple Respiratory: Clear to auscultation bilaterally Cardiovascular: No edema, Normal S1 S2 Gastrointestinal: Normal bowel sounds, Soft and benign Musculoskeletal: Other (Patient's left leg is swollen) Integumentary: Other (He has an abscess on the plantar aspect of his left foot near the ball and is swollen) Neurological: Normal speech, Normal strength at 5/5 x4 extr - Studies Laboratory Data (last 24 hrs) 11/17/23 11/17/23 16:19 16:19 WBC 22.80 H Hgb 9.0 L Hct 28.0 L Plt Count 339 Sodium 129 L Potassium 4.9 BUN 85 H Creatinine 14.00 H Glucose 119 H Total Bilirubin 0.4 AST 12 L ALT 15 L Alkaline Phosphatase 183 H Assessment and Plan - Problems (Diagnosis) (1) Foot abscess, left Current Visit: Yes Status: Acute Plan: Patient is 58 years of age end-stage renal disease on dialysis admitted with left foot abscess he is also a diabetic patient is legally blind admit to the floor consult Dr. Hill start patient on Zosyn and vancomycin labs shows white count is elevated consult Dr. Aglieco for dialysis patient has anemia of chronic renal disease n.p.o. after midnight blood cultures have been ordered - Advance Directives Does patient have a Living Will: No Does patient have a Durable POA for Healthcare: No
[2023-11-17] MEDS: PIPER TAZO 2.25 GM in NA CHLORIDE 0.9% 50 ML IV ONE (19:00)
[2023-11-17] MEDS ORDERED: MANNITOL 25% 12.5 GM/50 ML VIAL IV PRN (20:49)
[2023-11-17] MEDS ORDERED: NA CHLORIDE 0.9% 1,000 ML IV PRN (20:49)
[2023-11-17] MEDS ORDERED: ALBUMIN HUMAN 25% 50 ML IV SCH (21:00)
[2023-11-17] MEDS: VANCOMYCIN 1 GM in NA CHLORIDE 0.9% 250 ML IVPB ONE (22:00)
[2023-11-17] MEDS: PIPER TAZO 3.375 GM in NA CHLORIDE 0.9% 100 ML IV SCH (22:06)
[2023-11-17] MEDS: MORPHINE 4 MG/ML SYR IV PRN (23:10)
[2023-11-17] MEDS ORDERED: D50W 25 GM/50 ML SYRINGE IV PRN (23:59)
[2023-11-17] MEDS ORDERED: GLUCAGON 1 MG/VIAL IM PRN (23:59)
[2023-11-18] MEDS ORDERED: D10W 125 ML IV PRN (00:12)
[2023-11-18] MEDS ORDERED: PIPER TAZO 2.25 GM in NA CHLORIDE 0.9% 50 ML IV SCH ×2 (01:00→19:00)
--- NOTE | 2023-11-18 07:02 | P.PN ---
Date of Service: 11/18/23 Subjective: tentative plan for I&D today left foot swelling and pain ~same; no improvement yet gets dialysis MWF - patient unsure if he last got dialysis tuesday or Tuesday afebrile ROS: 10 point ROS as noted above, otherwise negative Physical Exam: GEN: Alert, oriented, NAD CV: Regular rate and rhythm, trace b/l lower ext. edema Pulm: Nonlabored respirations on room air, clear bilaterally ABD: Soft, nontender, nondistended Integumentary: swelling, erythema on the plantar aspect of left foot with appearance of purulent material under skin Neuro: Normal speech, normal affect vitals reviewed Problem List: Left foot cellulitis/presumed abscess ESRD on HD - MWF Hyponatremia Chronic anemia IDDM2 chronic diastolic CHF hypertension Depression/anxiety Chronic back pain Left foot cellulitis/presumed abscess xray L foot (11/16): Large plantar calcaneal spur. Small soft tissue ulceration seen along the mid plantar foot. Small radiopaque foreign body may be present under the skin surface near the heel pad Dr. Quintero, general surgeon consulted to eval wound tentative plan for I&D today local wound care per surgery for now continue empiric zosyn / vanc (11/16-) afebrile, +leukocytosis 22.8 (11/17) pain control ESRD on HD - MWF Hyponatremia Creatinine 14.0, sodium 129 on admission gets dialysis MWF - Patient unsure if he last got dialysis Tuesday or Tuesday Nephrology consulted dialysis per nephrology - planned for today monitor BP, confirm home meds Chronic anemia stable ~baseline daily labs IDDM2 accu-cheks, SSI chronic diastolic CHF hypertension Depression/anxiety Chronic back pain confirm home meds, restart as appropriate VTE: heparin sq Code: Full Dispo: Home, ~2-3 days pending surgery/recovery, culture results, nephrology recs Time Spent Managing Pts Care (In Minutes): 39
[2023-11-18] MEDS: INSULIN REGULAR (HUMAN) 100 UNIT/ML SQ SCH (07:30)
[2023-11-18] MEDS: carvediloL 25 MG TAB PO SCH (09:18)
[2023-11-18] MEDS: GABAPENTIN 300 MG CAP PO SCH (09:18)
[2023-11-18 10:09] LABS: Absolute Basophils 0.1 K/uL (0-0.5); Absolute Eosinophils 0.4 K/uL (0-0.5); Absolute Lymphocytes (CBC) 0.7 K/uL (0.7-4.9); Absolute Neutrophil 11.1 K/uL (1.8-8.0); Basophils % 0.6 % (0-1.3); Eosinophils % 2.7 % (0-4.4); Hemoglobin 8.8 g/dL (13.6-17.9); Lymphocytes % 5.5 % (15.3-44.8); MCH 30.8 pg (27.0-35.0); MCHC 32.7 g/dL (32.0-36.0); MCV 94.3 fL (80-100); MPV 7.8 fL (7.6-11.3); Monocytes % 7.8 % (3.3-12.3); Neutrophils % 83.4 % (41.7-73.7); Platelets 329 thou/uL (152-406); RBC Red Blood Cell Count 2.86 M/uL (4.33-5.43); Red Cell Distribution Width 14.2 % (12.1-15.2)
[2023-11-18 10:29] LABS: Albumin 2.4 g/dL (3.4-5.0); Albumin/Globulin Ratio 0.5 (1.1-1.8); Alkaline Phosphatase 153 U/L (45-117); Anion Gap 18.7 mEq/L (5.0-15.0); BUN Blood Urea Nitrogen 92 mg/dL (7-18); Bicarbonate 21 mEq/L (21-32); Bilirubin Total 0.4 mg/dL (0.2-1.0); Globulin 4.6 g/dL (2.3-3.5); Glomerular Filtration Rate 3 ml/min (=/>90); Glucose Level 83 mg/dL (74-106); Magnesium 2.2 mg/dL (1.6-2.4); NT PRO-BNP 16868 pg/mL (<125); Phosphorus 6.7 mg/dL (2.5-4.9); Potassium 4.7 mEq/L (3.5-5.1); Sodium Level 131 mEq/L (136-145)
[2023-11-18 10:30] LABS: ALT/SGPT < 14 U/L (16-61); AST/SGOT < 10 U/L (15-37)
--- NOTE | 2023-11-18 11:43 | P.CNS ---
Date of Consult: 11/18/23 Reason for Consult: ESRD, need for HD Requesting Physician: Dean Carey Chief Complaint: Left foot abscess History of Present Illness: Patient is 58 year old male with a hx of sub optimally controlled IDDM with complications including partial vision loss, end-stage renal disease on dialysis for several years MWF at [facility], chronic HTN, and other who presented for one week of left posterolateral foot swelling, pain. Pt does not know if he stepped on anything or had a puncture wound. Pt denies fevers or chills but had notable leukocytosis on admission. He denies CP, dyspnea, N/V. Allergies No Known Allergies Allergy (Verified 05/03/19 04:58) Home Medications: Gabapentin 300 mg PO DAILY 11/15/19 Insulin Detemir [Levemir Flextouch] 33 units SQ BID 11/15/19 Calcitrol [Rocaltrol*] 0.5 mcg PO DAILY #60 cap 11/19/19 carvediloL [Coreg*] 25 mg PO BID #60 tab 11/19/19 Aspirin [Vazalore] 1 tab PO DAILY 12/25/20 Atorvastatin Calcium 1 tab PO BEDTIME 12/25/20 Insulin -Regular Human [Novolin -R*] 11 units SQ TIDWM 12/25/20 Trazodone [Desyrel*] 100 mg PO BEDTIME 12/25/20 Heparin [Heparin 1,000 units/mL *] 3,000 unit IV EVERY HD vial 01/20/21 Heparin [Heparin 1,000 units/mL *] 6,000 unit IV EVERY HD PRN vial 01/20/21 Bupropion HCl [Budeprion Xl] 300 mg PO DAILY 11/17/23 Citalopram [Celexa*] 11/17/23 Docusate [Colace Cap*] 100 mg PO DAILY 11/17/23 Ferrous Gluconate 324 mg PO BID 11/17/23 Mecobalamin [B12 Active] 1,000 mcg PO DAILY 11/17/23 NIFEdipine [Nifedipine ER] 30 mg PO DAILY 11/17/23 - Past Medical/Surgical History Diabetic: Yes -: Chronic Back Pain -: Hypertension -: Diabetes mellitus type 2 insulin dependent -: Depression Anxiety -: Anxiety -: ESRD on HD followed by Dr. Russo/Anwar -: Chronic diastolic congestive heart failure -: Morbid obesity -: eye surgery -: Dialysis catheter insertion right anterior chest wall Psychosocial/ Personal History: Patient lives with aunt - Social History Smoking Status: Unknown if ever smoked Alcohol use: No CD- Drugs: No Caffeine use: Yes Place of Residence: Home Review of Systems General: As per HPI Eyes: As per HPI Respiratory: Unremarkable Cardiovascular: Unremarkable Gastrointestinal: Unremarkable Genitourinary: Unremarkable Musculoskeletal: Other (Chronic weakness, uses rolling walker) Integumentary: As per HPI Neurological: Unremarkable Physical Examination Temp Pulse Resp BP Pulse Ox 97.7 F 67 22 H 155/77 H 90 L 11/18/23 08:00 11/18/23 08:00 11/18/23 08:00 11/18/23 08:00 11/18/23 08:00 General: Alert, In no apparent distress, Oriented x3 HEENT: Atraumatic, Normocephalic, Other (vision impairment) Neck: Supple, Other (Lt IJ TDC) Respiratory: Clear to auscultation bilaterally, Normal air movement Cardiovascular: Regular rate/rhythm, Edema Gastrointestinal: Soft and benign, Non-distended, No guarding Musculoskeletal: Swelling, Other (Rt UE AVF with bruit) Integumentary: Other (Lt posterolateral site large skin tear, localized swelling without drainage or odor) Neurological: Normal speech, Normal tone, Normal affect Laboratory Data (last 24 hrs) 11/17/23 11/17/23 16:19 16:19 WBC 22.80 H Hgb 9.0 L Hct 28.0 L Plt Count 339 Sodium 129 L Potassium 4.9 BUN 85 H Creatinine 14.00 H Glucose 119 H Total Bilirubin 0.4 AST 12 L ALT 15 L Alkaline Phosphatase 183 H Conclusions/Impression: A/P) 1. ESRD 2nd to chronic conditions, on iHD MWF, possible missed tx. HD today for clearance and UF, see orders for details 2. Azotemia 2nd to renal failure -will clear with HD 3. Chronic HTN with CKD -f/u post HD BP 4. Left foot soft tissue infection +/- abscess, leukocytosis -broad spectrum Abx per IM. Received less than std LD on admission, will consult pharmacy for Vanc supplemental or maintenance dose with HD today and to follow levels. Surgery consulted, will f/u any cultures 5. Anemia 2nd to CKD, inflammation, other -Hb < 9 this AM, monitor closely, hold IV iron currently due to infection, will dose TRINA at his unit or in the hospital if needed
[2023-11-18 11:59] LABS: HBsAG Nonreactive Report Report; Hepatitis B Core Ab, Total Nonreactive (Nonreactive); Hepatitis B surface AG Interp. Nonreactive (Nonreactive)
[2023-11-18] MEDS: SEVELAMER CARBONATE 800 MG TABLET PO SCH (11:59)
[2023-11-18] MEDS: EPOETIN ALFA 10,000 UNIT/ML VIAL IV SCH (14:45)
[2023-11-18] MEDS: TRAZODONE 50 MG TABLET PO SCH (20:56)
[2023-11-18] MEDS: ATORVASTATIN 40 MG TAB PO SCH (20:56)
[2023-11-19 06:53] LABS: Absolute Basophils 0.1 K/uL (0-0.5); Absolute Eosinophils 0.3 K/uL (0-0.5); Absolute Neutrophil 9.5 K/uL (1.8-8.0); Basophils % 0.5 % (0-1.3); Eosinophils % 2.2 % (0-4.4); Hematocrit 29.7 % (39.6-49.0); Hemoglobin 9.8 g/dL (13.6-17.9); Lymphocytes % 8.3 % (15.3-44.8); MCHC 32.9 g/dL (32.0-36.0); MCV 94.2 fL (80-100); MPV 7.5 fL (7.6-11.3); Monocytes % 8.4 % (3.3-12.3); Neutrophils % 80.6 % (41.7-73.7); Nucleated Red Blood Cells % 0.1 % (0-0); Platelets 408 thou/uL (152-406); RBC Red Blood Cell Count 3.15 M/uL (4.33-5.43); Red Cell Distribution Width 14.3 % (12.1-15.2)
[2023-11-19 07:10] LABS: Albumin 2.4 g/dL (3.4-5.0); Albumin/Globulin Ratio 0.5 (1.1-1.8); Anion Gap 11.5 mEq/L (5.0-15.0); Bilirubin Total 0.4 mg/dL (0.2-1.0); Magnesium 2.4 mg/dL (1.6-2.4); Potassium 4.5 mEq/L (3.5-5.1); Protein, Total 7.4 g/dL (6.4-8.2)
[2023-11-19] MEDS: NA CHLORIDE 0.9% 500 ML ONE (08:15)
[2023-11-19] MEDS: SUCCINYLCHOLINE 20 MG/ML (10 ML) IV ONE (08:22)
[2023-11-19] MEDS ORDERED: propofoL 200 MG/20 ML VIAL IV ONE (08:38)
[2023-11-19] MEDS ORDERED: MIDAZOLAM HCL 2 MG/2 ML INJ ONE (08:38)
[2023-11-19] MEDS ORDERED: FENTANYL CITR 100 MCG/2 ML ONE (08:38)
[2023-11-19] MEDS: LIDOCAINE HCL/EPINEPHRINE 20 ML MDV ONE (09:17)
[2023-11-19] MEDS ORDERED: GLYCOPYRROLATE 0.2 MG/ML SYR ONE (09:22)
--- NOTE | 2023-11-19 09:30 | P.OP ---
Preoperative diagnosis: LEFT Heel Wound with Necrosis Postoperative diagnosis: LEFT Heel Wound with Necrosis Primary procedure: Debridement of LEFT Heel Wound with Necrosis Anesthesia: GETA + Local Estimated blood loss: <5cc Specimen: Debridement Tissue, Cultures Findings: puncture on heel with necrosis Complications: None Transferred to: Recovery Room Condition: Good
--- NOTE | 2023-11-19 10:58 | OP ---
Date of Procedure: 11/19/2023 Surgeon: Keenan Quintero MD, Preoperative Diagnosis: Left heel wound with necrosis. Postoperative Diagnosis: Left heel wound with necrosis. Procedure Performed: Debridement of left heel wound with necrosis. Anesthesia: General endotracheal plus local 1% lidocaine with epinephrine. Estimated Blood Loss: Less than 5 cc. Specimen: Debridement of tissue and culture sent, both aerobic and anaerobic speciation. Findings: There was a small puncture wound on the left heel on the plantar aspect with deep necrosis and breakdown of tissue around this. There may have been foreign body within the debridement tissue as there was a black nidus at the heel puncture site consistent with possible foreign body. There w as undermining both medial and laterally with necrosis of the fascia. Complications: None. Disposition: The patient was transferred to the recovery room in good condition. Procedure In Detail: After informed consent was obtained, the patient was brought to the operating r oom and prepped and draped in the usual sterile fashion. After adequate anesthesia achieved, I made an elliptical incision around obvious puncture kal of the heel of the left foot. I made a small cir cumferential dissection using an 11 blade circumferentially around the skin and dissected deeper plan e, had to make circumferentially larger circles, concentric circles as the necrosis continued to exte nd around this area for approximately 3 cm x 2 cm, ultimately culminating in a deeper dissection into the plantar fascia. After this was removed with all necrotic tissue, was sent off for pathologic ex amination of debridement tissue. The area was copiously irrigated. I used a pulse lavage device to cleanse out the area. I then cleansed the entire area. Hemostasis was achieved with electrocautery. The wound was then packed with Vashe soaked gauze and a sterile dressing was placed over top. The patient tolerated the procedure without complication and transferred to PACU in good condition. All counts were correct at the end of the case. TK/MODL Voice ID: [id number] Report ID: [id number]
--- NOTE | 2023-11-19 11:12 | P.PN ---
Date of Service: 11/19/23 Subjective: had I&D done today Feeling better today after surgery tolerated dialysis without issues minimal appetite afebrile ROS: 10 point ROS as noted above, otherwise negative Physical Exam: GEN: Alert, oriented, NAD CV: Regular rate and rhythm, trace b/l lower ext. edema Pulm: Nonlabored respirations on room air, clear bilaterally, Slightly diminished at bases bilaterally Integumentary: surgical dressing in place , c/d/i vitals reviewed Problem List: Necrotic left foot wound infection, now s/p I&D (11/18) ESRD on HD - MWF Hyponatremia Chronic anemia IDDM2 chronic diastolic CHF hypertension Depression/anxiety Chronic back pain Necrotic left foot wound, now s/p I&D (11/18) xray L foot (11/16): Large plantar calcaneal spur. Small soft tissue ulceration seen along the mid plantar foot. Small radiopaque foreign body may be present under the skin surface near the heel pad Dr. Quintero, general surgeon consulted to eval wound s/p I&D today; found to have small puncture wound with some deep necrosis and breakdown of tissue around site. local wound care per surgery continue empiric zosyn / vanc (11/16-) afebrile, leukocytosis improving pain control ESRD on HD - MWF Hyponatremia Creatinine 14.0, sodium 129 on admission Nephrology consulted dialysis per nephrology - tolerated dialysis yesterday without issues monitor BP, confirm home meds Chronic anemia stable ~baseline daily labs IDDM2 accu-cheks, SSI chronic diastolic CHF hypertension Depression/anxiety Chronic back pain confirm home meds, restart as appropriate VTE: heparin sq Code: Full Dispo: Home, ~2-3 days pending recovery, culture results, nephrology recs Time Spent Managing Pts Care (In Minutes): 39
--- NOTE | 2023-11-19 12:06 | CON ---
Date of Consultation: 11/18/2023 Brief History Of Present Illness: The patient is a 58-year-old male with a history of end-stage adolfo l disease, on dialysis. He has been complaining of pain and swelling of the left heel area, which go t worse over the course of several days and it was associated with drainage. He is unsure if he step ped on something as he states he tries to keep his feet covered at all times to avoid such issues. H owever, he noted some swelling, drainage and pus emanating from his heel area, which continued to pro gressively get worse. As such, he came to the emergency room with the above-stated complaints. Past Medical History: Chronic back pain, hypertension, diabetes, depression, anxiety, ESRD, chronic diastolic CHF, morbid obesity. Past Surgical History: Includes eye surgery, dialysis catheter insertion. Social History: He denies smoking, alcohol, or recreational drug use. Allergies: NO KNOWN DRUG ALLERGIES. Home Medications: Include gabapentin, Levemir, calcitriol, Lasix, Coreg, Atarax, aripiprazole, , atorvastatin, Novolin, Desyrel, Norvasc, Cardura, cefazolin, vitamin D3, , Flonase, heparin, lidocaine, mannitol. Review of Systems: Ten-point review of systems other than HPI, denies. Physical Examination: General: At the time of my examination, he is awake, alert, oriented. Psychiatric: He is appropriate, conversive. HEENT: Normocephalic. Sclerae are anicteric. Mucous membranes are moist. Oropharynx clear. Neck: Supple. No JVD. Chest: Normal expansion and excursion. Cardiovascular: Regular rate and rhythm. Pulmonary: Clear to auscultation bilaterally. Extremities: Focused examination of lower extremities, his left lower extremity has what appears to be a small punctate inoculation site/foreign body on the heel of the left foot with surrounding eryth diogo, drainage, and sloughing of the skin consistent with infection. There is cellulitis surrounding the area as well, consistent with necrosis. Laboratory Data: White blood cell count of 13.3 down from 22.8 on admission, hemoglobin is 8.8, bartolome tocrit 27.0, platelet count was 329, neutrophils were 83%. PTT is 28. Sodium 131, potassium 4.7, ch loride 96, carbon dioxide is 32, BUN 92, creatinine 15. Lactic acid was less than 0.8. His hepatiti s B antibody was reactive. Core was nonreactive and antigen was nonreactive. He had imaging perform ed as well, which showed officially read on 11/17/2023 as large plantar calcaneal spur, small soft ti ssue ulceration seen along the mid plantar foot. Small radiopaque foreign body may be present under the skin surface near the heel pad. No fracture dislocation. No evidence of osteomyelitis. Assessment/plan: A 58-year-old male who comes in with an infection of the left heel, likely due to a foreign body. 1.IV fluid hydration. 2.Antibiotic coverage. 3.Continue dialysis. When dialysis is completed, the patient deemed appropriate for surgery. I rec ommend surgical debridement of this area. I have explained the risks, benefits, and alternatives of surgical debridement of this area including but not limited to bleeding, infection, damage to surroun ding tissue, need further operative procedures, blood clots, heart attack, strokes, ongoing need for surgical intervention, possibly chronic wound care. The patient displayed understanding of above sta tianna plan and agreed to proceed as indicated. SHARONDA/JIMMY Voice ID: [id number] Report ID: [id number]
--- NOTE | 2023-11-19 15:30 | PN ---
Date of Progress Note: 11/19/2023 Subjective: The patient was seen and examined at bedside. He is doing okay. Denies any complaints. Complaining of pain in his foot. Objective: Vital Signs: Have been reviewed and are stable. General: He appears in no acute distress. Lungs: Clear to auscultation. Abdomen: Soft and nontender. Extremities: Left foot was noted to be in dressing, status post incision and drainage to [place]ing [place] Impression: 1.End-stage renal disease, on dialysis. Patient is on Tuesday, Tuesday, Tuesday dialysis. Planned for dialysis again on Tuesday. No acute need for dialysis at this time. 2.Necrotic left foot wound. The patient had incision and drainage by Dr. Quintero today. Continue t o monitor closely. Antibiotics and wound care at this time. 3.Anemia secondary to chronic disease. Continue Retacrit and monitor. Plan: Overall, patient is clinically stable. Continue dialysis on Tuesday, Tuesday, and Tuesday [facility]. Continue local wound care and antibiotics and monitor closely. VV/MODL Voice ID: [id number] Report ID: [id number]
[2023-11-19] MEDS ORDERED: VANCOMYCIN 1 GM in NA CHLORIDE 0.9% 250 ML IVPB SCH (18:00)
[2023-11-19] MEDS: Oxycodone HCl/Acetaminophen 5/325 MG TAB PO PRN (22:47)
[2023-11-20 06:06] LABS: Absolute Basophils 0.1 K/uL (0-0.5); Absolute Eosinophils 0.4 K/uL (0-0.5); Absolute Neutrophil 10.9 K/uL (1.8-8.0); Basophils % 0.4 % (0-1.3); Eosinophils % 2.7 % (0-4.4); Hematocrit 28.3 % (39.6-49.0); Hemoglobin 9.2 g/dL (13.6-17.9); Lymphocytes % 7.6 % (15.3-44.8); MCH 30.6 pg (27.0-35.0); MCHC 32.5 g/dL (32.0-36.0); MCV 94.1 fL (80-100); MPV 7.7 fL (7.6-11.3); Monocytes % 7.5 % (3.3-12.3); Neutrophils % 81.8 % (41.7-73.7); Platelets 403 thou/uL (152-406); RBC Red Blood Cell Count 3.01 M/uL (4.33-5.43); Red Cell Distribution Width 14.5 % (12.1-15.2)
[2023-11-20 06:27] LABS: Albumin 2.2 g/dL (3.4-5.0); Albumin/Globulin Ratio 0.5 (1.1-1.8); Alkaline Phosphatase 158 U/L (45-117); Anion Gap 14.6 mEq/L (5.0-15.0); BUN Blood Urea Nitrogen 65 mg/dL (7-18); Bicarbonate 26 mEq/L (21-32); Bilirubin Total 0.3 mg/dL (0.2-1.0); Globulin 4.7 g/dL (2.3-3.5); Glomerular Filtration Rate 5 ml/min (=/>90); Glucose Level 179 mg/dL (74-106); Magnesium 2.4 mg/dL (1.6-2.4); Potassium 4.6 mEq/L (3.5-5.1); Protein, Total 6.9 g/dL (6.4-8.2); Sodium Level 133 mEq/L (136-145)
[2023-11-20 06:28] LABS: ALT/SGPT < 14 U/L (16-61); AST/SGOT < 10 U/L (15-37)
[2023-11-20] MEDS: BUPROPION HCL XL 150 MG TAB PO SCH (08:38)
[2023-11-20] MEDS ORDERED: HOME MED 1 EA UNK (Bupropion Hcl [Budeprion Xl] 300 MG Tab.Sr.24h) PO SCH (09:00)
--- NOTE | 2023-11-20 09:02 | P.PN ---
Date of Service: 11/20/23 Subjective: no new issues overnight feeling better today foot pain continues to improve daily ROS: 10 point ROS as noted above, otherwise negative Physical Exam: GEN: Alert, oriented, NAD CV: Regular rate and rhythm, trace b/l lower ext. edema Pulm: Nonlabored respirations on room air, clear bilaterally, Slightly diminished at bases bilaterally Integumentary: surgical dressing in place , c/d/i vitals reviewed Problem List: Necrotic left foot wound infection, now s/p I&D (11/18) ESRD on HD - MWF Hyponatremia Chronic anemia IDDM2 chronic diastolic CHF hypertension Depression/anxiety Chronic back pain Necrotic left foot wound infection, now s/p I&D (11/18) xray L foot (11/16): Large plantar calcaneal spur. Small soft tissue ulceration seen along the mid plantar foot. Small radiopaque foreign body may be present under the skin surface near the heel pad Dr. Quintero, consulted s/p I&D 11/18 - found to have small puncture wound with some deep necrosis and breakdown of tissue around site. local wound care per surgery Needs to be nonweightbearing to LLE Blood cx (11/16): NGTD wound cx (11/16): pending continue empiric zosyn / vanc (11/16-) afebrile, leukocytosis slightly worse 11/19; likely reactive from surgery pain control ESRD on HD - MWF Hyponatremia Creatinine 14.0, sodium 129 on admission Nephrology consulted dialysis per nephrology monitor BP, confirm home meds Chronic anemia stable ~baseline daily labs IDDM2 accu-cheks, SSI chronic diastolic CHF hypertension Depression/anxiety Chronic back pain confirm home meds, restart as appropriate VTE: heparin sq Code: Full Dispo: Home, ~1-2 days pending recovery, culture results, nephrology recs, leukocytosis resolving Time Spent Managing Pts Care (In Minutes): 39
[2023-11-20] MEDS ORDERED: MORPHINE 4 MG/ML SYR IV PRN (14:22)
[2023-11-21 06:18] LABS: Absolute Eosinophils 0.4 K/uL (0-0.5); Absolute Lymphocytes (CBC) 1.2 K/uL (0.7-4.9); Absolute Monocytes 0.8 K/uL (0.1-1.3); Basophils % 0.4 % (0-1.3); Eosinophils % 3.8 % (0-4.4); Hematocrit 29.5 % (39.6-49.0); Hemoglobin 9.6 g/dL (13.6-17.9); Lymphocytes % 11.5 % (15.3-44.8); MCH 30.9 pg (27.0-35.0); MCHC 32.3 g/dL (32.0-36.0); MCV 95.5 fL (80-100); MPV 7.8 fL (7.6-11.3); Monocytes % 7.6 % (3.3-12.3); Neutrophils % 76.7 % (41.7-73.7); Nucleated Red Blood Cells % 0.1 % (0-0); Platelets 396 thou/uL (152-406); RBC Red Blood Cell Count 3.09 M/uL (4.33-5.43); Red Cell Distribution Width 14.5 % (12.1-15.2)
[2023-11-21 06:44] LABS: Albumin 2.3 g/dL (3.4-5.0); Albumin/Globulin Ratio 0.5 (1.1-1.8); Alkaline Phosphatase 138 U/L (45-117); Anion Gap 17.8 mEq/L (5.0-15.0); BUN Blood Urea Nitrogen 70 mg/dL (7-18); Bicarbonate 26 mEq/L (21-32); Bilirubin Total 0.3 mg/dL (0.2-1.0); Globulin 4.9 g/dL (2.3-3.5); Glomerular Filtration Rate 4 ml/min (=/>90); Glucose Level 131 mg/dL (74-106); Magnesium 2.5 mg/dL (1.6-2.4); Potassium 4.8 mEq/L (3.5-5.1); Protein, Total 7.2 g/dL (6.4-8.2); Sodium Level 135 mEq/L (136-145)
[2023-11-21 06:47] LABS: ALT/SGPT < 14 U/L (16-61); AST/SGOT < 10 U/L (15-37)
--- NOTE | 2023-11-21 07:36 | P.PN ---
Date of Service: 11/21/23 Subjective: feeling better today foot pain improving daily afebrile ROS: 10 point ROS as noted above, otherwise negative Physical Exam: GEN: Alert, oriented, NAD CV: Regular rate and rhythm, trace b/l lower ext. edema Pulm: Nonlabored respirations on room air, clear bilaterally, Slightly diminished at bases bilaterally Integumentary: surgical site with wet to dry packing, superficial eschar on lateral aspect of heel vitals reviewed Problem List: Necrotic left foot wound infection, now s/p I&D (11/18) ESRD on HD - MWF Hyponatremia Chronic anemia IDDM2 chronic diastolic CHF hypertension Depression/anxiety Chronic back pain Necrotic left foot wound infection, now s/p I&D (11/18) xray L foot (11/16): Large plantar calcaneal spur. Small soft tissue ulceration seen along the mid plantar foot. Small radiopaque foreign body may be present under the skin surface near the heel pad Dr. Quintero, consulted s/p I&D 11/18 - found to have small puncture wound with some deep necrosis and breakdown of tissue around site. local wound care per surgery Needs to be nonweightbearing to LLE per Dr. Quintero wheelchair ordered PT consulted Blood cx (11/16): NGTD wound cx (11/16): pending continue empiric zosyn / vanc (11/16-) afebrile, leukocytosis resolved pain control ESRD on HD - MWF Hyponatremia Creatinine 14.0, sodium 129 on admission Nephrology consulted dialysis per nephrology monitor BP, confirm home meds Chronic anemia stable ~baseline daily labs IDDM2 accu-cheks, SSI chronic diastolic CHF hypertension Depression/anxiety Chronic back pain confirm home meds, restart as appropriate VTE: heparin sq Code: Full Dispo: Home, ~1 day pending cultures Time Spent Managing Pts Care (In Minutes): 39
--- OUTSIDE RECORDS SUMMARY | 2023-11-21 08:01 | XMS REPORT | Continuity of Care Document ---
Author Name Unknown Address [address] [facility] [address] [place] [address] [facility] thconnect Address [address] [facility] [place] [address] Care Team Providers Care Town Marshal Name Role Phone SKIPPACK, [facility] Martha [facility] MEDICAL Primary Car e Physician Unavailable Koby Low Attending Clinician Unavailable BALTAZAR JUDD Attending Clinician Unavailable BALTAZAR JUDD Attending Clinician Unavailable Baltazar Judd NP Attending Clinician [phone] Elbert --Kierra Attending Clinician Doctor Unassigned, [place] Attending Clinician U navailable CATALINA PRECIADO Attending Clinician Unavailable Catalina Preciado MD Attending Clinician [phone] Susan Sosa Attending Clinician Unavailable Glory Muñiz RN Attending Clinician Unavailable Only, Ang Db Test Attending Clinician UnavailDiana Mustafa Attending Clinician [phone] HAYLIE RAMÍREZ Attending Clinician Unavailable Rebecca Hubbard DO Attending Clinician [phone] Haylie Ramírez MD Attending Clinician [phone] Koby Low Admitting Clinician Unavailable Zeke Russo Admitting Clinician Unavailable BALTAZAR JUDD Admitting Clinician Unavailable Susan Sosa Admitting Clinician Unavailable HAYLIE RAMÍREZ Admitting Clinician Unavailable Haylie Ramírez MD Admitting Clinician [phone] Payers Payer Name Policy Type Policy Number Effective Date Expirati on Date Source [facility] [id number] 2022 00:00:00 [employer] MEDIC[employer] ADVANTAGE PLAN DFGIANNA 2023 00:00:00 [employer] ([facility]IC[facility] REPLACEMENT HMO) [facility] 00:[facility]00 Problems Condition Name Condition Details Condition Category Status Onset Date Resolution Date Last Treatment Date Treating Clinician Comments Source Morbid obesity with body mass index of 40.0-49.9 Morbid obesity with body mass index of 40.0-49.9 Disease Active 10-22 00:00: 00 [facility] acute hospital Acute on chronic renal insufficie ncy Acute on chronic renal insufficie ncy Disease Active 10-22 00:00: 00 [facility] acute hospital Alcohol dependence Alcohol dependence Disease Active 10-22 00:00: 00 [facility] acute hospital Benign essential hypertensi on Benign essential hypertensi on Disease Active 10-22 00:00: 00 [facility] acute hospital Cannabis abuse Cannabis abuse Disease Active 10-22 00:00: 00 [facility] acute [facility] Cocaine abuse Cocaine abuse Disease Active 10-22 00:00: 00 [facility] acute hospital Congestive heart failure Congestive heart failure Disease Active 10-22 00:00: 00 [facility] acute hospital Depressive disorder Depressive disorder Disease Active 10-22 00:00: 00 [facility] acute hospital Diabetes mellitus Diabetes mellitus Disease Active 10-22 00:00: 00 [facility] acute hospital Legal blindness [place] Legal blindness [place] Disease Active 10-22 00:00: 00 Overview: Formattin g of this note might be different from the original. Mar 12, 2020 Entered By: DON MARSH Comment: per 03/11/20 EYE NOTE General acute hospital Morbid obesity with body mass index of 40.0-49.9 Morbid obesity with body mass index of 40.0-49.9 Disease Active - 00:00: 00 [facility] acute hospital Allergies, Adverse Reactions, Alerts Allergy Name Allergy Type Status Severity Reaction(s) Onset Date Inactive Date Treating Clinician Comments Source No Known Allergie s DA Active U 8-11 00:00: 00 [facility] No Known Allergie s DA Active U 2021-04 2-26 00:00: 00 [facility] NO KNOWN ALLERGIE S Drug Class Active General acute hospital Social History Social Habit Start Date Stop Date Quantity Comments Source [facility] SARS-[facility]-2 (event) 2022-06-24 00:00:00 2022-07-04 11:43:00 Not sure [facility] Sex assigned at 1965 00:00:00 1965 00:00:00 [facility] Smoking Status Start Date Stop Date Source Tobacco smoking consumption unknown [facility] Medications Ordered Medication Name Filled Medication Name Start Date Stop Date Current Medication? Ordering Clinician Indication Dosage Frequency Signature (SIG) Comments Components Source ceFAZolin (ANCEF) injection 1,000 mg 11-10 17:45: 00 11-10 18:12 :00 No 1000mg 1,000 mg, Slow IV Push, ONCE, 1 dose, On Tue11/11/23 at 1245, STAT, Reason for Anti-Infec tive: Documented Infection, Documented Infection Site: Skin / Soft Tissue, Duration of Therapy: Once (ED) [facility] acute hospital ketorolac (TORADOL) injection 30 mg 11-10 16:30: 00 11-10 15:44 :00 No 30mg 30 mg, Slow IV Push, ONCE, 1 dose, On Tue11/11/23 at 1130, Routine [facility] acute hospital traMADoL 50 mg tablet 11-10 00:00: 00 11-18 04:59 :00 Yes [id number] 50mg Take 1 tablet by mouth every 6 (six) hours as needed for Pain (scale 7-10) for up to 7 days. Indication s: acute pain [facility] acute hospital sulfamethox azole-trime thoprim 800-160 mg per tablet 11-10 00:00: 00 11-18 04:59 :00 Yes [id number] 1{tbl} Take 1 tablet by mouth every 12 (twelve) hours for 7 days. [facility] acute hospital cephALEXin 500 mg capsule 11-10 00:00: 00 11-18 04:59 :00 Yes [id number] 1000mg Take 2 capsules by mouth in the morning and 2 capsules in the evening. Do all this for 7 days. [facility] acute hospital calcitrioL 0.5 mcg capsule 10-24 00:00: 00 11-24 04:59 :00 No [id number] .5ug Take 1 capsule by mouth daily for 30 days. [facility] acute hospital amLODIPine 5 mg tablet 10-24 00:00: 00 11-24 04:59 :00 No [id number] 5mg Take 1 tablet by mouth daily for 30 days. [facility] acute hospital Cholecalcif jake, Vitamin D3, (VITAMIN D3) 125 mcg (5,000 unit) tablet 10-23 23:01: 32 Yes 5000U Take 5,000 Units by mouth daily. [facility] acute hospital insulin detemir U-100 (LEVEMIR U-100 INSULIN) 100 unit/mL injection 10-23 23:01: 32 Yes 33U inject 33 Units under the skin 2 (two) times daily with meals. [facility] acute hospital NOVOLOG U-100 INSULIN ASPART SC 10-23 23:01: 32 Yes 11U inject 11 Units under the skin 2 (two) times daily with meals. [facility] acute hospital ARIPiprazol e (ABILIFY) 5 mg tablet 10-23 23:01: 31 Yes 5mg Take 5 mg by mouth daily. [facility] acute hospital aspirin 81 mg chewable tablet 10-23 23:01: 31 Yes 81mg Take 81 mg by mouth daily. [facility] acute hospital buPROPion XL 300 mg 24 hr tablet 10-23 23:01: 31 Yes 300mg Take 300 mg by mouth daily. [facility] acute hospital vitamin B-12 1,000 mcg tablet 10-23 23:01: 31 Yes 1000ug Take 1,000 mcg by mouth daily. [facility] acute hospital ferrous gluconate 324 mg (37.5 mg iron) tablet 10-23 23:01: 31 Yes 324mg Take 324 mg by mouth 2 (two) times daily. [facility] acute hospital furosemide 80 mg tablet 10-23 23:01: 31 Yes 80mg Take 80 mg by mouth 2 (two) times daily. [facility] acute hospital ergocalcife rol, vitamin d2, 1,250 mcg (50,000 unit) capsule 10-23 20:02: 43 10-23 00:00 :00 No [id number] Take 50,000 Units by mouth weekly. [facility] acute hospital Cholecalcif jake, Vitamin D3, (VITAMIN D3) 125 mcg (5,000 unit) tablet 10-23 18:01: 32 Yes 5000U Take 5,000 Units by mouth daily. [facility] acute hospital insulin detemir U-100 (LEVEMIR U-100 INSULIN) 100 unit/mL injection 10-23 18:01: 32 Yes 33U inject 33 Units under the skin 2 (two) times daily with meals. [facility] acute hospital NOVOLOG U-100 INSULIN ASPART SC 10-23 18:01: 32 Yes 11U inject 11 Units under the skin 2 (two) times daily with meals. [facility] acute hospital ARIPiprazol e (ABILIFY) 5 mg tablet 10-23 18:01: 31 Yes 5mg Take 5 mg by mouth daily. [facility] acute hospital aspirin 81 mg chewable tablet 10-23 18:01: 31 Yes 81mg Take 81 mg by mouth daily. [facility] acute hospital buPROPion XL 300 mg 24 hr tablet 10-23 18:01: 31 Yes 300mg Take 300 mg by mouth daily. [facility] acute hospital vitamin B-12 1,000 mcg tablet 10-23 18:01: 31 Yes 1000ug Take 1,000 mcg by mouth daily. [facility] acute hospital ferrous gluconate 324 mg (37.5 mg iron) tablet 10-23 18:01: 31 Yes 324mg Take 324 mg by mouth 2 (two) times daily. [facility] acute hospital furosemide 80 mg tablet 10-23 18:01: 31 Yes 80mg Take 80 mg by mouth 2 (two) times daily. General acute hospital Sliding Scale Insulin - Lispro (HumaLOG) + Fsbg Testing 10-23 17:00: 00 Yes Subcutaneo us, TID MEALS+HS, First dose on Tue10/23/20 at 1200, Until Discontinu ed, Routine [facility] insulin glargine (LANTUS U-100) injection 33 Units 10-23 15:30: 00 Yes 33U 33 Units, Subcutaneo us, BID, First dose on Tue10/23/20 at 1030, Until Discontinu ed, Routine [facility] vitamin B-12 (CYANOCOBAL LINK) tablet 1,000 mcg 10-23 14:00: 00 Yes 1000ug 1,000 mcg, Oral, DAILY, First dose on Tue10/23/20 at 0900, Until Discontinu ed, Routine [facility] ergocalcife rol (vitamin d2) (CALCIFEROL ) capsule 50,000 Units 10-23 14:00: 00 Yes [id number] 50,000 Units, Oral, QWEEKLY, First dose on Tue10/23/20 at 0900, Until Discontinu ed, Routine [facility] citalopram (CELEXA) tablet 40 mg 10-23 14:00: 00 Yes 40mg 40 mg, Oral, DAILY, First dose on Tue10/23/20 at 0900, Until Discontinu ed, Routine [facility] cholecalcif jake (vitamin D3) tablet 5,000 Units 10-23 14:00: 00 Yes 5000U 5,000 Units, Oral, DAILY, First dose on Tue10/23/20 at 0900, Until Discontinu ed [facility] aspirin chewable tablet 81 mg 10-23 14:00: 00 Yes 81mg 81 mg, Oral, DAILY, First dose on Tue10/23/20 at 0900, Until Discontinu ed, Routine [facility] ARIPiprazol e (ABILIFY) tablet 5 mg 10-23 14:00: 00 Yes 5mg 5 mg, Oral, DAILY, First dose on Tue10/23/20 at 0900, Until Discontinu ed, Routine [facility] traMADoL (ULTRAM) tablet 50 mg 10-23 10:16: 54 Yes 50mg 50 mg, Oral, Q6HPRN, Starting Tue10/23/20 at 0516, Until Discontinu ed, Routine, Pain (scale 4-6) [facility] amLODIPine (NORVASC) tablet 5 mg 10-23 04:00: 00 Yes 5mg 5 mg, Oral, DAILY, First dose on Tue10/22/20 at 2300, Until Discontinu ed, Routine [facility] hydralAZINE (APRESOLINE ) injection 20 mg 10-23 03:56: 39 Yes 20mg 20 mg, Slow IV Push, Q4HPRN, Starting Tue10/22/20 at 2256, Until Discontinu ed, STAT, DBP=>100; SBP=>180<b r>Indicati on: Hypertensi ve Emergency [facility] atorvastati n (LIPITOR) tablet 40 mg 10-23 02:00: 00 Yes 40mg 40 mg, Oral, QHS, First dose on Tue10/22/20 at 2100, Until Discontinu ed, Routine [facility] furosemide (LASIX) tablet 80 mg 10-23 01:00: 00 Yes 80mg 80 mg, Oral, BID, First dose on Tue10/22/20 at 2000, Until Discontinu ed, Routine [facility] ferrous sulfate tablet 325 mg 10-23 01:00: 00 Yes 325mg 325 mg, Oral, BID, First dose on Tue10/22/20 at 2000, Until Discontinu ed [facility] ergocalcife rol, vitamin d2, 1,250 mcg (50,000 unit) capsule 10-23 00:00: 00 Yes [id number] Take 1 capsule by mouth weekly. [facility] acute hospital D5W IV infusion 1,000 mL 10-22 22:15: 00 Yes [id number] 1000mL at 50 mL/hr, IV Infusion, CONTINUOUS , Starting Tue10/22/20 at 1715, Until Discontinu ed, Routine [facility] acute hospital thiamine (VITAMIN B1) 200 mg in NaCl 0.9% (NS) piggyback 10-22 22:15: 00 10-22 22:45 :00 No [id number] 200mg IV Piggyback, ONCE, 1 dose, Tue10/22/20 at 1715, 50 mL [facility] acute hospital insulin lispro (human) (HumaLOG U-100) injection 11 Units 10-22 21:30: 00 Yes 11U 11 Units, Subcutaneo us, BIDAC, First dose on Tue10/22/20 at 1630, Until Discontinu ed [facility] acute hospital heparin (porcine) injection 5,000 Units 10-22 19:00: 00 Yes 5000U 5,000 Units, Subcutaneo us, Q8H, First dose on Tue10/22/20 at 1400, Until Discontinu ed, Routine [facility] acute hospital ondansetron (ZOFRAN (PF)) injection 4 mg 10-22 17:49: 47 Yes 4mg 4 mg, Slow IV Push, Q6HPRN, Starting Tue10/22/20 at 1249, Until Discontinu ed, Routine, Nausea and Vomiting (N/V) [facility] acute hospital acetaminoph en (TYLENOL) tablet 650 mg 10-22 17:49: 38 Yes 650mg 650 mg, Oral, Q6HPRN, Starting Tue10/22/20 at 1249, Until Discontinu ed, Routine, Pain (scale 1-3) [facility] acute hospital bupropion hcl er (xl) 150 mg tablet er 24 hr bupropion hcl er (xl) 150 mg tablet er 24 hr Yes [facility] atropine sulfate 1 % solution atropine sulfate 1 % solution Yes [facility] atorvastati n calcium 40 mg tablet atorvastati n calcium 40 mg tablet Yes [facility] lactulose 10 gm/15ml solution lactulose 10 gm/15ml solution Yes [facility] trazodone hcl 100 mg tablet trazodone hcl 100 mg tablet Yes [facility] NOVOLIN R 100 UNIT/ML SOLUTION NOVOLIN R 100 UNIT/ML SOLUTION Yes [facility] nifedipine er 30 mg tablet er 24 hr nifedipine er 30 mg tablet er 24 hr Yes [facility] LEVEMIR FLEXPEN 100 UNIT/ML SOLN PEN INJ LEVEMIR FLEXPEN 100 UNIT/ML SOLN PEN INJ Yes [facility] hydrocodone -acetaminop hen 10-325 mg tablet hydrocodone -acetaminop hen 10-325 mg tablet Yes [facility] gabapentin 300 mg capsule gabapentin 300 mg capsule Yes [facility] citalopram hydrobromid e 40 mg tablet citalopram hydrobromid e 40 mg tablet Yes [facility] carvedilol 25 mg tablet carvedilol 25 mg tablet Yes [facility] calcitriol 0.25 mcg capsule calcitriol 0.25 mcg capsule Yes [facility] Immunizations Ordered Immunization Name Filled Immunization Name Date Status Comments Source Zoster Vaccine Recombinant 2020-08-07 00:00:00 Completed [facility] Zoster Vaccine Recombinant 2020-08-07 00:00:00 Completed [facility] Zoster Vaccine Recombinant 2020-08-07 00:00:00 Completed [facility] Zoster Vaccine Recombinant 2020-08-07 00:00:00 Completed [facility] Zoster Vaccine Recombinant 2020-08-07 00:00:00 Completed [facility] SARS-COV-2 COVID-19 PFIZER VACCINE 2020-06-13 00:00:00 Completed [facility] SARS-COV-2 COVID-19 PFIZER VACCINE 2020-06-13 00:00:00 Completed [facility] SARS-COV-2 COVID-19 PFIZER VACCINE 2020-06-13 00:00:00 Completed [facility] SARS-COV-2 COVID-19 PFIZER VACCINE 2020-06-13 00:00:00 Completed [facility] SARS-COV-2 COVID-19 PFIZER VACCINE 2020-06-13 00:00:00 Completed [facility] Pneumococcal 13 Conjugate, PCV13 (Prevnar 13) 2020-04-18 00:00:00 Completed [facility] Pneumococcal 13 Conjugate, PCV13 (Prevnar 13) 2020-04-18 00:00:00 Completed [facility] Pneumococcal 13 Conjugate, PCV13 (Prevnar 13) 2020-04-18 00:00:00 Completed [facility] Pneumococcal 13 Conjugate, PCV13 (Prevnar 13) 2020-04-18 00:00:00 Completed [facility] Pneumococcal 13 Conjugate, PCV13 (Prevnar 13) 2020-04-18 00:00:00 Completed [facility] Influenza Virus Vaccine Quad IM 3+ YRS 2019-12-27 00:00:00 Completed [facility] Influenza Virus Vaccine Quad IM 3+ YRS 2019-12-27 00:00:00 Completed [facility] Influenza Virus Vaccine Quad IM 3+ YRS 2019-12-27 00:00:00 Completed [facility] Influenza Virus Vaccine Quad IM 3+ YRS 2019-12-27 00:00:00 Completed [facility] Influenza Virus Vaccine Quad IM 3+ YRS 2019-12-27 00:00:00 Completed [facility] Influenza Virus Vaccine 2019-05-05 00:00:00 Completed [facility] Influenza Virus Vaccine 2019-05-05 00:00:00 Completed [facility] Influenza Virus Vaccine 2019-05-05 00:00:00 Completed [facility] Influenza Virus Vaccine 2019-05-05 00:00:00 Completed [facility] Influenza Virus Vaccine 2019-05-05 00:00:00 Completed [facility] TDAP 2017-05-11 00:00:00 Completed [facility] TDAP 2017-05-11 00:00:00 Completed [facility] TDAP 2017-05-11 00:00:00 Completed [facility] TDAP 2017-05-11 00:00:00 Completed [facility] TDAP 2017-05-11 00:00:00 Completed [facility] Influenza Virus Vaccine 2014-12-26 00:00:00 Completed [facility] Influenza Virus Vaccine (3+ yrs) 2014-12-26 00:00:00 Completed [facility] Influenza Virus Vaccine 2014-12-26 00:00:00 Completed [facility] Influenza Virus Vaccine (3+ yrs) 2014-12-26 00:00:00 Completed [facility] Influenza Virus Vaccine 2014-12-26 00:00:00 Completed [facility] Influenza Virus Vaccine (3+ yrs) 2014-12-26 00:00:00 Completed [facility] Influenza Virus Vaccine 2014-12-26 00:00:00 Completed [facility] Influenza Virus Vaccine (3+ yrs) 2014-12-26 00:00:00 Completed [facility] Influenza Virus Vaccine 2014-12-26 00:00:00 Completed [facility] Influenza Virus Vaccine (3+ yrs) 2014-12-26 00:00:00 Completed [facility] SARS-COV-2 COVID-19 PFIZER VACCINE Unknown Completed [facility] Influenza Virus Vaccine Unknown Completed [facility] Influenza Virus Vaccine Quad IM 3+ YRS Unknown Completed [facility] Influenza Virus Vaccine (3+ yrs) Unknown Completed [facility] Influenza Virus Vaccine Unknown Completed [facility] Pneumococcal 13 Conjugate, PCV13 (Prevnar 13) Unknown Completed [facility] TDAP Unknown Completed [facility] Zoster Vaccine Recombinant Unknown Completed [facility] Vital Signs Vital Name Observation Time Observation Value Comments S ource Systolic blood pressure 2023-11-11 18:09:00 134 mm[Hg] [facility] Diastolic blood pressure 2023-11-11 18:09:00 79 mm[Hg] [facility] Heart rate 2023-11-11 18:09:00 71 /min [facility] Body temperature 2023-11-11 18:09:00 36.22 Madalyn [facility] Respiratory rate 2023-11-11 18:09:00 18 /min [facility] Oxygen saturation in Arterial blood by Pulse oximetry 2023-11-11 18:09:00 96 /min [facility] Body height 2023-11-11 14:57:00 175.3 cm [facility] Body weight 2023-11-11 14:57:00 136.079 kg [facility] BMI 2023-11-11 14:57:00 44.30 kg/m2 [facility] Systolic blood pressure 2022-07-04 19:00:00 106 mm[Hg] [facility] Diastolic blood pressure 2022-07-04 19:00:00 57 mm[Hg] [facility] Heart rate 2022-07-04 19:00:00 51 /min [facility] Respiratory rate 2022-07-04 19:00:00 14 /min [facility] Oxygen saturation in Arterial blood by Pulse oximetry 2022-07-04 19:00:00 93 /min [facility] Body temperature 2022-07-04 16:43:00 36.06 Madalyn [facility] Body height 2022-07-04 16:43:00 177.8 cm [facility] Body weight 2022-07-04 16:43:00 149.687 kg [facility] BMI 2022-07-04 16:43:00 47.35 kg/m2 [facility] Systolic blood pressure 2020-10-23 21:02:00 94 mm[Hg] [facility] Diastolic blood pressure 2020-10-23 21:02:00 67 mm[Hg] [facility] Heart rate 2020-10-23 21:02:00 59 /min [facility] Body temperature 2020-10-23 21:02:00 36.56 Madalyn [facility] Respiratory rate 2020-10-23 21:02:00 13 /min [facility] Oxygen saturation in Arterial blood by Pulse oximetry 2020-10-23 21:02:00 94 /min [facility] Body height 2020-10-22 20:03:00 177.8 cm [facility] Body weight 2020-10-22 20:03:00 140.615 kg [facility] BMI 2020-10-22 20:03:00 44.48 kg/m2 [facility] Procedures Procedure Date / Time Performed Performing Clinician Source [id number] 2023-11-13 00:00:[address] [facility] DUPLEX VENOUS LEG LEFT - BY VASCULAR LAB 2023-11-11 15:47:00 Baltazar Judd [facility] PHOSPHORUS 2023-11-11 15:38:00 Baltazar Judd [facility] MAGNESIUM 2023-11-11 15:38:00 Baltazar Judd [facility] COMP. METABOLIC PANEL ([id number]) 2023-11-11 15:38:00 Baltazar Judd [facility] CBC WITH DIFF 2023-11-11 15:38:00 Baltazar Judd [facility] REFERRAL- REQUEST/RESPONSE 2022-08-05 05:01:00 D paulaor Unassigned, [place] [facility] COMP. METABOLIC PANEL ([id number]) 2022-07-04 17:28:00 Catalina Preciado [facility] CBC WITH DIFF 2022-07-04 17:28:00 Catalina Preciado [facility] PROTHROMBIN TIME / INR 2022-07-04 17:28:00 Jason Preciado [facility] ACTIVATED PARTIAL THRMPLAS TOYA 2022-07-04 17:28:00 Catalina Preciado [facility] [id number] 2022-03-31 00:00:00 CHERYL.01 [facility] [id number] 2022-03-29 00:00:00 CHERYL.01 [facility] [id number] 2022-03-29 00:00:00 CHERYL.01 [facility] MAGNESIUM 2020-10-23 09:20:00 [facility] (NA, K, CL, CO2, GLUCOSE, BUN, CREATININE, CA) 2020-10-23 09:20:00 Haylie Ramírez [facility] CBC WITH DIFF 2020-10-23 09:20:00 Haylie Ramírez [facility] POCT GLUCOSE (AUTOMATED) 2020-10-23 00:59:00 Lisset Ramírez [facility] XR CHEST 2 VW 2020-10-23 00:43:19 Jojo Madrigal [facility] US RETROPERITONEAL COMPLETE 2020-10-22 23:18:55 Jojo Madrigal [facility] FERRITIN SERUM 2020-10-22 21:56:00 Jojo Madrigal [facility] TOTAL IRON BINDING CAPACITY 2020-10-22 21:56:00 Jojo Madrigal [facility] THYROID STIMULATING HORMONE 2020-10-22 21:56:00 Jojo Madrigal [facility] INTACT PTH CALCIUM GROUP 2020-10-22 21:56:00 Saroj Madrigal [facility] HEPATITIS B SURFACE ANTIBODY 2020-10-22 21:56:00 [facility] 2020-10-22 21:56:00 Jojo Madrigal [facility] HBC ANTIBODY (IGM & IGG) 2020-10-22 21:56:00 Saroj Madrigal [facility] N-TERMINAL PRO-BNP 2020-10-22 21:56:00 Jojo Madrigal [facility] VITAMIN D, 25-OH 2020-10-22 21:56:00 Jojo Madrigal [facility] POCT GLUCOSE (AUTOMATED) 2020-10-22 21:37:00 Lisset Ramírez [facility] URINE DRUG (IMMUNOASSAY) - COMPREHENSIVE DRUG SCREEN 2020-10-22 19:35:00 Meg Stinson [facility] GLYCOSYLATED HEMOGLOBIN (A1C) 2020-10-22 19:35:00 Meg Stinson [facility] OSMOLALITY URINE 2020-10-22 19:31:00 Jojo Madrigal [facility] URINALYSIS 2020-10-22 19:31:[address] [facility] VITAMIN D, 25-OH 2020-10-22 19:31:00 Haylie Ramírez [facility] CREATININE, URINE RANDOM 2020-10-22 19:31:00 Saroj Madrigal [facility] TOTAL PROTEIN, URINE RANDOM 2020-10-22 19:31:00 Jojo Madrigla [facility] POTASSIUM, URINE RANDOM 2020-10-22 19:31:00 Nisha Madrigal [facility] SODIUM, URINE RANDOM 2020-10-22 19:31:00 To Madrigal [facility] PHOSPHORUS 2020-10-22 19:30:00 Haylie Ramírez [facility] CREATINE KINASE 2020-10-22 19:30:00 Jojo Madrigal Un [facility] URIC ACID 2020-10-22 19:30:00 Desiree [facility] FERRITIN SERUM 2020-10-22 19:30:00 Desiree [facility] IRON 2020-10-22 19:30:00 Desiree [facility] TOTAL IRON BINDING CAPACITY 2020-10-22 19:30:00 Haylie Ramírez [facility] INTACT PTH CALCIUM GROUP 2020-10-22 19:30:00 Lisset Ramírez [facility] HB ECG ROUTINE & RHYTHM STRIP 2020-10-22 16:16:29 Rebecca Hubbard [facility] COVID-19 (ID NOW RAPID TESTING) 2020-10-22 16:12:00 Rebecca Hubbard [facility] PHOSPHORUS 2020-10-22 15:15:00 [facility] MAGNESIUM 2020-10-22 15:15:00 Rebecca Hubbard Un [facility] TROPONIN I 2020-10-22 15:15:[address] [facility] COMP. METABOLIC PANEL ([id number]) 2020-10-22 15:15:00 Rebecca Hubbard [facility] CBC WITH DIFF 2020-10-22 15:15:00 Rebecca Hubbard U [facility] NOTICE OF PRIVACY PRACTICES 2020-10-22 14:39:44 Doctor Unassigned, [place] [facility] CONSENT/REFUSAL FOR DIAGNOSIS AND TREATMENT 2020-10-22 14:37:51 Doctor Unassigned, [place] [facility] Encounters Start Date/Time End Date/Time Encounter Type Admission Type Attending Clinicians Care Facility Care Department Encounter ID Source 2023-11-13 15:44:00 2023-11-14 19:34:00 Inpatient BRANDO FernandesanaKoby [facility].02 [id number] [facility] 2023-11-13 17:56:00 2023-11-13 17:56:00 Outpatient Koby Low [facility] LABO [id number] [facility] 2023-11-11 10:02:00 2023-11-11 13:37:00 Emergency X BALTAZAR JUDD PAMALA [facility] ERT [id number] General acute hospital 2023-11-11 10:02:00 2023-11-11 13:37:00 Emergency Baltazar Judd [facility] 1.2840.114 350.1.13.10 4.2.7.2.686 [id number] General acute hospital 2023-11-10 12:00:00 2023-11-10 13:00:00 Initial D2Me Kierra Boswell 2.16.840. [id number] 2.16.840.1. [id number] [facility] 2022-10-02 00:00:00 2022-10-02 00:00:00 Outpatient [facility] [id number] [facility] 2022-08-05 00:00:00 2022-08-05 00:00:00 Orders Only Doctor Unassigned, [place] [facility] 1.2.840.114 350.1.13.10 4.2.7.2.686 [id number] General acute hospital 2022-07-04 11:42:00 2022-07-04 15:00:00 Emergency X CATALINA PRECIADO [facility] ERT [id number] General acute hospital 2022-07-04 11:42:00 2022-07-04 15:00:00 Emergency Catalina Preciado [facility] 1.2840.114 350.1.13.10 4.2.7.2.686 [id number] General acute hospital 2022-03-30 18:47:00 2022-03-31 17:09:00 Inpatient Susan Beckford HCAWU TELE [id number] [facility] 2021-04-30 00:00:00 2021-04-30 00:00:00 Telephone Glory Muñiz [facility] 1.2.840.114 350.1.13.10 4.2.7.2.686 [id number] General acute hospital 2021-04-28 15:30:00 2021-04-28 15:45:00 Laboratory Only Only, Ang Db [facility] 1.2.840.114 350.1.13.10 4.2.7.2.686 [id number] General acute hospital 2020-10-22 09:47:00 2020-10-23 17:45:00 Outpatient X [facility] [id number] General acute hospital 2020-10-22 09:47:00 2020-10-23 17:45:00 Emergency Rebecca Hubbard Jelani [facility] 1.2.840.114 350.1.13.10 4.2.7.2.686 [id number] General acute hospital Results Test Description Test Time Test Comments Results Result Co mments Source AG HEPATITIS B [id number] 06:12:00* Test Item Value Reference Range Interpretation Comme nts AG HEPATITIS B SURFACE (test code = HBSAG) NEGATIVE SCREEN NEGATIVE AB HEPATITIS B [id number] 06:12:00* Test Item Value Reference Range Interpretation Comme nts AB HEPATITIS B CORE (test code = HBCAB) Negative Negative Performed At : [facility] [id number] Kyle L MD Ph:[phone] AB HEPATITIS [id number] 06:12:00* Test Item Value Reference Range Interpretation Comme nts AB HEPATITIS C (test code = HCVAB) Non Reactive RATIO Non Reactive HCV antibody alone d oes not differentiate betweenpreviously resolved infection and active infection.Equivocal and Reactive HCV antibody results should befollowed up with an HCV RNA test to support the diagnosisof active HCV infection. BASIC METABOLIC [id number] 06:38:00* Test Item Value Reference Range Interpretation Comme nts SODIUM (test code = NA) 130 mmol/L 136-145 L POTASSIUM (test code = K) 5.7 mmol/L 3.4-5.0 H CHLORIDE (test code = CL) 93 mmol/L 98-107 L CARBON DIOXIDE (test code = CO2) 20 mmol/L 21-32 L ANION GAP (test code = GAP) 17 GAP calc 4-15 H GLUCOSE (test code = GLU) 77 MG/DL 70-110 N BLOOD UREA NITROGEN (test code = BUN) 90 MG/DL 7-18 H GLOMERULAR FILTRATION RATE (test code = GFR) 4 estGFR >60 L The Glomerular Filtration Rate is a calculated parameterbased on serum Creatinine, patient age and sex. GFR valuesless than 60 mL/min/1.73 square meters are indicative ofChronic Kidney Disease. Values less than 15 mL/min/1.73square meters indicate Kidney failure. The calculation forGFR is based on the CKD-EPI (2020) calculation. This formulais race indifferent and is the recommended formula for GFRby the National Kidney Foundation for Adults.The GFR will not calculate if the sex is unknown or if thepatient's age is <18 years. CREATININE (test code = CREAT) 14.3 MG/DL 0.6-1.0 H CALCIUM (test code = CA) 8.7 MG/DL 8.5-10.1 N COMPREHENSIVE METABOLIC [id number] 06:38:00* Test Item Value Reference Range Interpretation Comme nts TOTAL PROTEIN (test code = PROT) 7.4 G/DL 6.4-8.2 N ALBUMIN (test code = ALB) 2.5 G/DL 3.4-5.0 L GLOBULIN (test code = GLOB) 4.9 GM/dL ALBUMIN/GLOBULIN RATIO (test code = A/G) 0.5 RATIO 1.2-2.2 L BILIRUBIN TOTAL (test code = BILT) 0.4 MG/DL 0.0-1.0 N SGOT/AST (test code = AST) 11 Unit/L 15-37 L SGPT/ALT (test code = ALT) 8 Unit/L 30-65 L ALKALINE PHOSPHATASE TOTAL ( test code = ALKP) 146 Unit/L 50-136 H CBC W/AUTO [id number] 06:12:00* Test Item Value Reference Range Interpretation Comme nts WHITE BLOOD CELL (test code = WBC) 19.5 K/mm3 3.5-11.0 H RED BLOOD CELL (test code = RBC) 3.09 M/mm3 4.70-6.10 L HEMOGLOBIN (test code = HGB) 9.3 G/DL 12.3-15.9 L HEMATOCRIT (test code = HCT) 29.4 % 35.8-46.7 L MEAN CELL VOLUME (test code = MCV) 95.1 Fl 86.3-98.9 N MEAN CELL HGB (test code = MCH) 30.1 pg 28.9-34.4 N MEAN CELL HGB CONCETRATION (test code = MCHC) 31.6 G/DL 32.1-34.5 L RED CELL DISTRIBUTION WIDTH (test code = RDW) 13.4 SD 11.5-14.5 N PLATELET COUNT (test code = PLT) 239 K/mm3 150-450 N MEAN PLATELET VOLUME (test c ode = MPV) 9.70 fL 7.0-9.6 H NEUTROPHIL % (test code = NT%) 85.9 % 40-76 H IMMATURE GRANULOCYTE % (test code = IG%) 0.5 % 0.0-5.0 N LYMPHOCYTE % (test code = LY%) 5.6 % 20.5-51.1 L MONOCYTE % (test code = MO%) 7.5 % 1.7-9.3 N EOSINOPHIL % (test code = EO%) 0.3 % 0.0-6.0 N BASOPHIL % (test code = BA%) 0.2 % 0.0-2.0 N NUCLEATED RBC % (test code = NRBC%) 0.0 /100WBC% 0.0-1.0 N NEUTROPHIL # (test code = NT#) 16.8 K/mm3 1.8-7.6 H IMMATURE GRANULOCYTE # (test code = IG#) 0.10 x10 3/uL 0.00-0.03 H LYMPHOCYTE # (test code = LY#) 1.1 K/mm3 0.6-3.0 N MONOCYTE # (test code = MO#) 1.5 K/mm3 0.2-1.5 N EOSINOPHIL # (test code = EO#) 0.1 K/mm3 0.0-0.4 N BASOPHIL # (test code = BA#) 0.0 K/mm3 0.0-0.2 N NUCLEATED RBC # (test code = NRBC#) 0.0 K/mm3 0.00-0.01 N [id number] 20:14:00* Test Item Value Reference Range Interpretation [facility] MAGNESIUM (test code = MAG) 2.2 MG/DL 1.8-2.4 N COVID 19 INHOUSE [id number] 17:45:00* Test Item Value Reference Range Interpretation [facility] AG (test code = [id number]) NEGATIVE Negative Per rn chronic , negative results should be treated aspresumptive and, if inconsistent with clinical signs andsymptoms or necessary for patient management, should betested with an alternative molecular assay. Negative resultsdo not preclude SARS-CoV-2 infection and should not be usedas the sole basis for patient management decisions. Negative results should be considered in the context of apatient's recent exposures, history, presence of clinicalsigns and symptoms consistent with COVID-19. PROTHROMBIN [id number] 17:43:00* Test Item Value Reference Range Interpretation [facility] PT PATIENT (test code = PTP) 13.3 SECONDS 9.3-12.9 H INTERNATIONAL NORMAL RATIO (test code = INR) 1.21 INR Unit 0.8-1.2 H TARGET INR BY INDICATION Indication INR1. Prophylaxis of venous thrombosis 2.0 - 3.0 (orthopedic surgery), Prophylaxis of venous thrombosis (other than high-risk surgery), Treatment of Deep Vein Thrombosis/Pulmonary Embolism, Prevention of systemic embolism - Tissue heart valves, Acute Myocardial Infarction (to prevent systemic embolism), Valvular heart disease, Acute Myocardial Infarction (to prevent systemic embolism), Valvular heart disease, Atrial Fibrillation, Bileaflet mechanical valve in aortic position.2. Mechanical prosthetic valves (high risk), 2.5 - 3.5 Presence of Lupus Anticoagulant or Antiphospholipid Antibodies, Prevention of systemic embolism - Acute Myocardial Infarction (to prevent recurrent infarct). THROMBOPLASTIN TIME [id number] 17:43:00* Test Item Value Reference Range Interpretation [facility] THROMBOPLASTIN TIME PARTIAL (test code = PTT) 30.6 SECONDS 26-35 N NT PRO-BRAIN NATRIURETIC [id number] 17:27:00* Test Item Value Reference Range Interpretation Comme nts NT PRO-BRAIN NATRIURETIC PEP TI (test code = PROBNP) 8847 PG/ML 0-100 H TROP-I HIGH [id number] 17:27:00* Test Item Value Reference Range Interpretation Comme nts TROP-I HIGH SENSITIVITY (test code = TROPIHS) 9.1 ng/L 0-78 N CAUTION: Units o f the current test methodology (ng/L) differfrom the prior test methodology (ng/mL) by a factor of 1000. 99th Percentile Upper Reference Limit (URL):Females: 54 ng/LMales: 79 ng/L In order to distinguish acute elevations of high sensitivitytroponin from other clinical conditions, the FourthUniversal Definition of Myocardial Infarction stressesclinical assessment and the demonstration of a rise and/orfall in serial troponin results above the URL. Results from different methodologies should not be comparedto one another as quantitative results and URLs may varyby method. BASIC METABOLIC [id number] 17:27:00* Test Item Value Reference Range Interpretation Comme nts SODIUM (test code = NA) 128 mmol/L 136-145 L POTASSIUM (test code = K) 5.4 mmol/L 3.4-5.0 H CHLORIDE (test code = CL) 92 mmol/L 98-107 L CARBON DIOXIDE (test code = CO2) 20 mmol/L 21-32 L ANION GAP (test code = GAP) 16 GAP calc 4-15 H GLUCOSE (test code = GLU) 101 MG/DL 70-110 N BLOOD UREA NITROGEN (test code = BUN) 80 MG/DL 7-18 H GLOMERULAR FILTRATION RATE (test code = GFR) 4 estGFR >60 L The Glomerular Filtration Rate is a calculated parameterbased on serum Creatinine, patient age and sex. GFR valuesless than 60 mL/min/1.73 square meters are indicative ofChronic Kidney Disease. Values less than 15 mL/min/1.73square meters indicate Kidney failure. The calculation forGFR is based on the CKD-EPI (2020) calculation. This formulais race indifferent and is the recommended formula for GFRby the National Kidney Foundation for Adults.The GFR will not calculate if the sex is unknown or if thepatient's age is <18 years. CREATININE (test code = CREAT) 13.1 MG/DL 0.6-1.0 H CALCIUM (test code = CA) 8.4 MG/DL 8.5-10.1 L HEPATIC FUNCTION [id number] 17:27:00* Test Item Value Reference Range Interpretation Comme nts TOTAL PROTEIN (test code = PROT) 7.0 G/DL 6.4-8.2 N ALBUMIN (test code = ALB) 2.5 G/DL 3.4-5.0 L BILIRUBIN TOTAL (test code = BILT) 0.3 MG/DL 0.0-1.0 N BILIRUBIN DIRECT (test code = BILD) 0.1 MG/DL 0.0-0.3 N BILIRUBIN INDIRECT (test cod e = BILIND) 0.20 MG/DL 0.2-1.2 N SGOT/AST (test code = AST) 12 Unit/L 15-37 L SGPT/ALT (test code = ALT) 10 Unit/L 30-65 L ALKALINE PHOSPHATASE TOTAL ( test code = ALKP) 137 Unit/L 50-136 H [id number] 17:27:00* Test Item Value Reference Range Interpretation Comme nts LIPASE (test code = LIP) 19 Unit/L 13-75 N CBC W/AUTO [id number] 16:56:00* Test Item Value Reference Range Interpretation Comme nts WHITE BLOOD CELL (test code = WBC) 16.4 K/mm3 3.5-11.0 H RED BLOOD CELL (test code = RBC) 2.85 M/mm3 4.70-6.10 L HEMOGLOBIN (test code = HGB) 8.8 G/DL 12.3-15.9 L HEMATOCRIT (test code = HCT) 27.5 % 35.8-46.7 L MEAN CELL VOLUME (test code = MCV) 96.5 Fl 86.3-98.9 N MEAN CELL HGB (test code = MCH) 30.9 pg 28.9-34.4 N MEAN CELL HGB CONCETRATION (test code = MCHC) 32.0 G/DL 32.1-34.5 L RED CELL DISTRIBUTION WIDTH (test code = RDW) 13.3 SD 11.5-14.5 N PLATELET COUNT (test code = PLT) 211 K/mm3 150-450 N MEAN PLATELET VOLUME (test c ode = MPV) 9.80 fL 7.0-9.6 H NEUTROPHIL % (test code = NT%) 83.4 % 40-76 H IMMATURE GRANULOCYTE % (test code = IG%) 0.5 % 0.0-5.0 N LYMPHOCYTE % (test code = LY%) 6.6 % 20.5-51.1 L MONOCYTE % (test code = MO%) 8.4 % 1.7-9.3 N EOSINOPHIL % (test code = EO%) 0.9 % 0.0-6.0 N BASOPHIL % (test code = BA%) 0.2 % 0.0-2.0 N NUCLEATED RBC % (test code = NRBC%) 0.0 /100WBC% 0.0-1.0 N NEUTROPHIL # (test code = NT#) 13.7 K/mm3 1.8-7.6 H IMMATURE GRANULOCYTE # (test code = IG#) 0.08 x10 3/uL 0.00-0.03 H LYMPHOCYTE # (test code = LY#) 1.1 K/mm3 0.6-3.0 N MONOCYTE # (test code = MO#) 1.4 K/mm3 0.2-1.5 N EOSINOPHIL # (test code = EO#) 0.1 K/mm3 0.0-0.4 N BASOPHIL # (test code = BA#) 0.0 K/mm3 0.0-0.2 N NUCLEATED RBC # (test code = NRBC#) 0.0 K/mm3 0.00-0.01 N LACTIC [id number] 16:33:00* Test Item Value Reference Range Interpretation Comme nts LACTIC ACID (test code = LACT) 0.2 mmol/L 0.4-1.9 L [id number] 16:05:28* Test Item Value Reference Range Interpretation Comme nts MAGNESIUM (test code = 1520763814) 1.8 mg/dL 1.7-2.4 Lab Interpretation (test cod e = 07193-2) [facility] ([id number][facility]2023-[facility]-11 16:05:07* Test Item Value Reference Range Interpretation Comme nts NA (test code = 0693832522) 136 mmol/L 135-145 K (test code = 0879950359) 5.5 mmol/L 3.5-5.0 H CL (test code = 3491201923) 98 mmol/L 98-108 CO2 TOTAL (test code = 6066858716) 21 mmol/L 23-31 L AGAP (test code = 6009589619) 17 2-16 H BUN (test code = 7934136684) 57 mg/dL 7-23 H GLUCOSE (test code = 3126828931) 109 mg/dL 70-110 CREATININE (test code = 2160-0) 10.04 mg/dL 0.60-1.25 H TOTAL BILI (test code = 2059283160) 0.8 mg/dL 0.1-1.1 CALCIUM (test code = 2658472138) 8.8 mg/dL 8.6-10.6 T PROTEIN (test code = 9069800510) 8.0 g/dL 6.3-8.2 ALBUMIN (test code = 8220716475) 4.1 g/dL 3.5-5.0 ALK PHOS (test code = 8472005079) 105 U/L 34-122 ALTv (test code = 1742-6) 13 U/L 5-50 AST(SGOT) (test code = 2598004577) 18 U/L 13-40 eGFR (test code = 33512-7) 5.5 mL/min/1.73m2 CKD-EPI eGFR (2020). Assuming creatinine has been stable day-to-day for at least three months, the eGFR indicates Category G5 (<= 14mL/min/1.73 m2) Lab Interpretation (test code = 43734-0) [facility]normal [id number] 16:04:51* Test Item Value Reference Range Interpretation Comme nts PHOSPHORUS (test code = 6161058429) 6.7 mg/dL 2.5-5.0 H Lab Interpretation (test cod e = 94519-8) [facility]normal [facility] WITH [id number] 15:50:27* Test Item Value Reference Range Interpretation Comme nts WBC (test code = 6690-2) 14.06 4.20-10.70 H RBC (test code = 789-8) 3.48 4.26-5.52 L HGB (test code = 718-7) 11.0 g/dL 12.2-16.4 L HCT (test code = 4544-3) 33.7 % 38.4-49.3 L MCV (test code = 787-2) 96.8 fL 81.7-95.6 H MCH (test code = 785-6) 31.6 pg 26.1-32.7 MCHC (test code = 786-4) 32.6 g/dL 31.2-35.0 RDW-SD (test code = 05688-4) 48.6 fL 38.5-51.6 RDW-CV (test code = 788-0) 13.6 % 12.1-15.4 PLT (test code = 777-3) 213 150-328 MPV (test code = 96666-5) 10.1 fL 9.8-13.0 NRBC/100 WBC (test code = 2053233497) 0.0 0.0-10.0 NRBC x10^3 (test code = 1276931874) See_Comment [Automated message] The system which generated this result transmitted reference range: 10*3/?L. The reference range was not used to interpret this result as normal/abnormal. GRAN MAT (NEUT) % (test code = 770-8) 82.5 % IMM GRAN % (test code = 4935355401) 0.60 % LYMPH % (test code = 736-9) 6.8 % MONO % (test code = 5905-5) 8.9 % EOS % (test code = 713-8) 0.9 % BASO % (test code = 706-2) 0.3 % GRAN MAT x10^3(ANC) (test code = 3442981395) 11.60 10*3/uL 1.99-6.95 H IMM GRAN x10^3 (test code = 3438531456) 0.08 10*3/uL 0.00-0.06 H LYMPH x10^3 (test code = 731-0) 0.96 10*3/uL 1.09-3.23 L MONO x10^3 (test code = 742-7) 1.25 10*3/uL 0.36-1.02 H EOS x10^3 (test code = 711-2) 0.13 10*3/uL 0.06-0.53 BASO x10^3 (test code = 704-7) 0.04 10*3/uL 0.01-0.09 Lab Interpretation (test code = 66380-5) [facility]normal [facility] (36628)2022-07-04 18:07:19* Test Item Value Reference Range Interpretation Comme nts NA (test code = 0906789528) 141 mmol/L 135-145 K (test code = 0476087498) 5.1 mmol/L 3.5-5.0 H CL (test code = 1246461994) 111 mmol/L 98-108 H CO2 TOTAL (test code = 5061387060) 21 mmol/L 23-31 L AGAP (test code = 9762416489) 9 2-16 BUN (test code = 2271919014) 61 mg/dL 7-23 H GLUCOSE (test code = 8466112114) 71 mg/dL 70-110 CREATININE (test code = 8465725557) 7.66 mg/dL 0.60-1.25 H TOTAL BILI (test code = 2472911070) 0.5 mg/dL 0.1-1.1 CALCIUM (test code = 9285293854) 8.3 mg/dL 8.6-10.6 L T PROTEIN (test code = 3620275315) 6.3 g/dL 6.3-8.2 ALBUMIN (test code = 3683815953) 3.6 g/dL 3.5-5.0 ALK PHOS (test code = 3412438818) 99 U/L 34-122 ALTv (test code = 1742-6) 14 U/L 5-50 AST(SGOT) (test code = 5163680100) 16 U/L 13-40 eGFR (test code = 5442492330) 7.4 mL/min/1.73m2 CANDY (test code = CANDY) Association of [...] or abnormalities in imaging tests). Lab Interpretation (test code = 00526-7) Abnormal [facility] CenterACTIVATED PARTIAL THRMPLAS [id number] 18:05:59* Test Item Value Reference Range Interpretation Comme [facility] APTT Patient (test code = 3173-2) 28 See_Comment [Automated message] The system which generated this result transmitted reference range: 23 - 38 Seconds. The reference range was not used to interpret this result as normal/abnormal. CANDY (test code = CANDY) The [facility] patient population mean normal value for aPTT is 30 seconds. Lab Interpretation (test code = 74221-7) Normal [facility] CenterPROTHROMBIN TIME / [id number] 18:04:12* Test Item Value Reference Range Interpretation Comme [facility] PROTIME PATIENT (test code = 5964-2) 13.3 See_Comment [Automated [employer] ge] The system which generated this result transmitted reference range: 12.0 - 14.7 Seconds. The reference range was not used to interpret this result as normal/abnormal. INR (test code = 6301-6) 1.1 Normal INR <1.1; Warfarin Therapeutic range 2.0 to 3.0 or 2.5 to 3.5, depending upon the indications. Lab Interpretation (test code = 51569-8) Normal [facility] WITH [id number] 17:55:19* Test Item Value Reference Range Interpretation Comme nts WBC (test code = 6690-2) 7.95 See_Comment [Automated messa ge] The system which generated this result transmitted reference range: 4.20 - 10.70 10*3/?L. The reference range was not used to interpret this result as normal/abnormal. RBC (test code = 789-8) 3.93 See_Comment L [Automated messa ge] The system which generated this result transmitted reference range: 4.26 - 5.52 10*6/?L. The reference range was not used to interpret this result as normal/abnormal. HGB (test code = 718-7) 12.0 g/dL 12.2-16.4 L HCT (test code = 4544-3) 38.7 % 38.4-49.3 MCV (test code = 787-2) 98.5 fL 81.7-95.6 H MCH (test code = 785-6) 30.5 pg 26.1-32.7 MCHC (test code = 786-4) 31.0 g/dL 31.2-35.0 L RDW-SD (test code = 78514-0) 50.4 fL 38.5-51.6 RDW-CV (test code = 788-0) 13.9 % 12.1-15.4 PLT (test code = 777-3) 181 See_Comment [Automated messa ge] The system which generated this result transmitted reference range: 150 - 328 10*3/?L. The reference range was not used to interpret this result as normal/abnormal. MPV (test code = 03182-4) 10.1 fL 9.8-13.0 NRBC/100 WBC (test code = 4369082795) 0.0 See_Comment [Automated [employer] ssage] The system which generated this result transmitted reference range: 0.0 - 10.0 /100 WBCs. The reference range was not used to interpret this result as normal/abnormal. NRBC x10^3 (test code = 2421666084) See_Comment [Automated messa ge] The system which generated this result transmitted reference range: 10*3/?L. The reference range was not used to interpret this result as normal/abnormal. GRAN MAT (NEUT) % (test code = 770-8) 71.6 % IMM GRAN % (test code = 5878138333) 0.60 % LYMPH % (test code = 736-9) 16.2 % MONO % (test code = 5905-5) 7.3 % EOS % (test code = 713-8) 3.8 % BASO % (test code = 706-2) 0.5 % GRAN MAT x10^3(ANC) (test code = 3704281880) 5.69 10*3/uL 1.99-6.95 IMM GRAN x10^3 (test code = 5423710476) 0.05 10*3/uL 0.00-0.06 LYMPH x10^3 (test code = 731-0) 1.29 10*3/uL 1.09-3.23 MONO x10^3 (test code = 742-7) 0.58 10*3/uL 0.36-1.02 EOS x10^3 (test code = 711-2) 0.30 10*3/uL 0.06-0.53 BASO x10^3 (test code = 704-7) 0.04 10*3/uL 0.01-0.09 Lab Interpretation (test code = 45212-9) Abnormal [facility] Center[facility]ED[facility] [id number] 13:02:00* Test Item Value Reference Range Interpretation Comme nts GLUCOSE BEDSIDE TESTING (negrita t code = GLUBED) 263 MG/DL 60-99 H GLUCOSE BEDSIDE [id number] 07:47:00* Test Item Value Reference Range Interpretation Comme nts GLUCOSE BEDSIDE TESTING (negrita t code = GLUBED) 145 MG/DL 60-99 H COMPREHENSIVE METABOLIC [id number] 07:22:00* Test Item Value Reference Range Interpretation Comme nts SODIUM (test code = NA) 141 MMOL/L 137-145 N POTASSIUM (test code = K) 4.4 MMOL/L 3.5-5.1 N CHLORIDE (test code = CL) 107 MMOL/L 98-107 N CARBON DIOXIDE (test code = CO2) 23 MMOL/L 22-30 N ANION GAP (test code = GAP) 15 MMOL/L 14-24 N GLUCOSE (test code = GLU) 160 MG/DL 74-106 H BLOOD UREA NITROGEN (test code = BUN) 51 MG/DL 9-20 H GLOMERULAR FILTRATION RATE (test code = GFR) 10 The Glomerular Filtration Rate is a calculated parameterbased on serum Creatinine, patient age and sex. GFR valuesless than 60 mL/min/1.73 square meters are indicative ofChronic Kidney Disease. Values less than 15 mL/min/1.73square meters indicate Kidney failure. The calculation forGFR is based on the CKD-EPI (2020) calculation. This formulais race indifferent and is the recommended formula for GFRby the National Kidney Foundation for Adults.The GFR will not calculate if the sex is unknown or if thepatient's age is <18 years. CREATININE (test code = CREAT) 6.30 MG/DL 0.66-1.25 H TOTAL PROTEIN (test code = PROT) 6.3 G/DL 6.2-7.6 N Ortho Clinical D iagnostic has made us aware of newinformation regarding the potential interference ofEltrombopag (a bone marrow stimulant used to treatthrombocytonmenia and aplastic anemia) with specific assayson the [id number] of which Total Protein is one of thoseassays performed in our lab.Interference testing performed at [facility] determined thatEltrombopag does interfere with [facility] Total Protein asfollowsEltrombopag Interference for [facility] Product Total Protein: Eltrombopag Max Observed Avg. BiasConcentration Concentration Concentration 2.5 mg/dl 6.0 g/dl +0.41 +0.34 3.5 mg/dl 6.0 g/dl +0.50 +0.45 5 mg/dl 6.0 g/dl +0.73 +0.65 2.5 mg/dl 8.0 g/dl +0.44 +0.41 3.5 mg/dl 8.0 g/dl +0.55 +0.52 5 mg/dl 8.0 g/dl +0.86 +0.77 ALBUMIN (test code = ALB) 3.4 G/DL 3.5-5.0 L CALCIUM (test code = CA) 8.2 MG/DL 8.4-10.2 L BILIRUBIN TOTAL (test code = BILT) 0.3 MG/DL 0.2-1.3 N Eltrombopag Inte rference for [facility] Product TBil, BuBc: Assay Eltrombopag Analyte/ Max Observed Avg. Bias Concentration Concentration Concentration TBil 7mg/dl TBil/ 1.2mg/dl +0.23mg.dl +0.20mg/dlBuBc 3.5mg/dl Bu/0.8mg/dl +0.25mg/dl +0.24mg/dlBuBc 7 mg/dl Bu/14.2mg/dl +0.38mg/dl +0.25mg/dlBuBc 5mg/dl Bc/0mg/dl +0.25mg/dl +0.15mg/dlBuBc 3.5mg/dl Bc/2.8mg/dl +0.25mg/dl +0.23mg/dl SGOT/AST (test code = AST) 19 UNITS/L 17-59 SGPT/ALT (test code = ALT) 15 UNITS/L 0-49 ALKALINE PHOSPHATASE (test code = ALKP) 100 UNITS/L 38-126 N [id number] 07:22:00* Test Item Value Reference Range Interpretation Comme nts MAGNESIUM (test code = MAG) 1.9 MG/DL 1.6-2.3 N CBC W/AUTO [id number] 06:40:00* Test Item Value Reference Range Interpretation Comme nts WHITE BLOOD CELL (test code = WBC) 7.8 K/MM3 3.8-9.8 N RED BLOOD CELL (test code = RBC) 3.41 M/MM3 3.95-5.67 L HEMOGLOBIN (test code = HGB) 10.2 G/DL 12.4-16.7 L HEMATOCRIT (test code = HCT) 32.1 % 35.9-49.5 L MEAN CELL VOLUME (test code = MCV) 94 fL 81.7-96.1 N MEAN CELL HGB (test code = MCH) 29.9 pg 27.6-33.2 N MEAN CELL HGB CONCETRATION (test code = MCHC) 31.8 % 32.9-35.5 L RED CELL DISTRIBUTION WIDTH (test code = RDW) 13.5 % 12.1-15.2 N PLATELET COUNT (test code = PLT) 182 K/MM3 129-368 N MEAN PLATELET VOLUME (test c ode = MPV) 10.5 fl 7.4-10.4 H NEUTROPHIL % (test code = NT%) 66.5 % 43-75 N IMMATURE GRANULOCYTE % (test code = IG%) 0.4 % 0.0-2.0 N LYMPHOCYTE % (test code = LY%) 20.0 % 14-44 N MONOCYTE % (test code = MO%) 8.1 % 4-13 N EOSINOPHIL % (test code = EO%) 4.7 % 0-6 N BASOPHIL % (test code = BA%) 0.3 % 0-2 N NUCLEATED RBC % (test code = NRBC%) 0.0 % 0-1.0 N NEUTROPHIL # (test code = NT#) 5.20 K/mm3 2.0-7.6 N IMMATURE GRANULOCYTE # (test code = IG#) 0.03 x10 3/uL 0-0.03 N LYMPHOCYTE # (test code = LY#) 1.56 K/mm3 1.0-3.8 N MONOCYTE # (test code = MO#) 0.63 K/mm3 0.1-0.8 N EOSINOPHIL # (test code = EO#) 0.37 K/mm3 0.0-0.2 H BASOPHIL # (test code = BA#) 0.02 K/mm3 0.0-0.2 N NUCLEATED RBC # (test code = NRBC#) 0.00 K/mm3 0.0-0.1 N GLUCOSE BEDSIDE [id number] 18:59:00* Test Item Value Reference Range Interpretation Comme nts GLUCOSE BEDSIDE TESTING (negrita t code = GLUBED) 232 MG/DL 60-99 H GLUCOSE BEDSIDE [id number] 17:34:00* Test Item Value Reference Range Interpretation Comme nts GLUCOSE BEDSIDE TESTING (negrita t code = GLUBED) 204 MG/DL 60-99 H GLUCOSE BEDSIDE [id number] 11:25:00* Test Item Value Reference Range Interpretation Comme nts GLUCOSE BEDSIDE TESTING (negrita t code = GLUBED) 276 MG/DL 60-99 H COMPREHENSIVE METABOLIC [id number] 07:21:00* Test Item Value Reference Range Interpretation Comme nts SODIUM (test code = NA) 139 MMOL/L 137-145 N POTASSIUM (test code = K) 4.2 MMOL/L 3.5-5.1 N CHLORIDE (test code = CL) 106 MMOL/L 98-107 N CARBON DIOXIDE (test code = CO2) 25 MMOL/L 22-30 ANION GAP (test code = GAP) 12 MMOL/L 14-24 L GLUCOSE (test code = GLU) 215 MG/DL 74-106 H BLOOD UREA NITROGEN (test code = BUN) 46 MG/DL 9-20 H GLOMERULAR FILTRATION RATE (test code = GFR) 11 The Glomerular Filtration Rate is a calculated parameterbased on serum Creatinine, patient age and sex. GFR valuesless than 60 mL/min/1.73 square meters are indicative ofChronic Kidney Disease. Values less than 15 mL/min/1.73square meters indicate Kidney failure. The calculation forGFR is based on the CKD-EPI (2020) calculation. This formulais race indifferent and is the recommended formula for GFRby the National Kidney Foundation for Adults.The GFR will not calculate if the sex is unknown or if thepatient's age is <18 years. CREATININE (test code = CREAT) 5.60 MG/DL 0.66-1.25 H TOTAL PROTEIN (test code = PROT) 6.5 G/DL 6.2-7.6 N [facility] has made us aware of newinformation regarding the potential interference ofEltrombopag (a bone marrow stimulant used to treatthrombocytonmenia and aplastic anemia) with specific assayson the Vitros 5600 of which Total Protein is one of thoseassays performed in our lab.Interference testing performed at Ortho determined thatEltrombopag does interfere with Vitros Total Protein asfollowsEltrombopag Interference for Vitros Product Total Protein: Eltrombopag Max Observed Avg. BiasConcentration Concentration Concentration 2.5 mg/dl 6.0 g/dl +0.41 +0.34 3.5 mg/dl 6.0 g/dl +0.50 +0.45 5 mg/dl 6.0 g/dl +0.73 +0.65 2.5 mg/dl 8.0 g/dl +0.44 +0.41 3.5 mg/dl 8.0 g/dl +0.55 +0.52 5 mg/dl 8.0 g/dl +0.86 +0.77 ALBUMIN (test code = ALB) 3.5 G/DL 3.5-5.0 N CALCIUM (test code = CA) 8.4 MG/DL 8.4-10.2 N BILIRUBIN TOTAL (test code = BILT) 0.3 MG/DL 0.2-1.3 N Eltrombopag Inte rference for Vitros Product TBil, BuBc: Assay Eltrombopag Analyte/ Max Observed Avg. Bias Concentration Concentration Concentration TBil 7mg/dl TBil/ 1.2mg/dl +0.23mg.dl +0.20mg/dlBuBc 3.5mg/dl Bu/0.8mg/dl +0.25mg/dl +0.24mg/dlBuBc 7 mg/dl Bu/14.2mg/dl +0.38mg/dl +0.25mg/dlBuBc 5mg/dl Bc/0mg/dl +0.25mg/dl +0.15mg/dlBuBc 3.5mg/dl Bc/2.8mg/dl +0.25mg/dl +0.23mg/dl SGOT/AST (test code = AST) 14 UNITS/L 17-59 L SGPT/ALT (test code = ALT) 13 UNITS/L 0-49 N ALKALINE PHOSPHATASE (test code = ALKP) 102 UNITS/L 38-126 N [id number] 07:21:00* Test Item Value Reference Range Interpretation Comme nts MAGNESIUM (test code = MAG) 2.0 MG/DL 1.6-2.3 N CBC W/AUTO [id number] 06:47:00* Test Item Value Reference Range Interpretation Comme nts WHITE BLOOD CELL (test code = WBC) 8.4 K/MM3 3.8-9.8 N RED BLOOD CELL (test code = RBC) 3.48 M/MM3 3.95-5.67 L HEMOGLOBIN (test code = HGB) 10.4 G/DL 12.4-16.7 L HEMATOCRIT (test code = HCT) 32.4 % 35.9-49.5 L MEAN CELL VOLUME (test code = MCV) 93 fL 81.7-96.1 N MEAN CELL HGB (test code = MCH) 29.9 pg 27.6-33.2 N MEAN CELL HGB CONCETRATION (test code = MCHC) 32.1 % 32.9-35.5 L RED CELL DISTRIBUTION WIDTH (test code = RDW) 13.5 % 12.1-15.2 N PLATELET COUNT (test code = PLT) 180 K/MM3 129-368 N MEAN PLATELET VOLUME (test c ode = MPV) 10.5 fl 7.4-10.4 H NEUTROPHIL % (test code = NT%) 69.5 % 43-75 N IMMATURE GRANULOCYTE % (test code = IG%) 0.2 % 0.0-2.0 N LYMPHOCYTE % (test code = LY%) 19.7 % 14-44 N MONOCYTE % (test code = MO%) 7.3 % 4-13 N EOSINOPHIL % (test code = EO%) 3.1 % 0-6 N BASOPHIL % (test code = BA%) 0.2 % 0-2 N NUCLEATED RBC % (test code = NRBC%) 0.0 % 0-1.0 N NEUTROPHIL # (test code = NT#) 5.82 K/mm3 2.0-7.6 N IMMATURE GRANULOCYTE # (test code = IG#) 0.02 x10 3/uL 0-0.03 N LYMPHOCYTE # (test code = LY#) 1.65 K/mm3 1.0-3.8 N MONOCYTE # (test code = MO#) 0.61 K/mm3 0.1-0.8 N EOSINOPHIL # (test code = EO#) 0.26 K/mm3 0.0-0.2 H BASOPHIL # (test code = BA#) 0.02 K/mm3 0.0-0.2 N NUCLEATED RBC # (test code = NRBC#) 0.00 K/mm3 0.0-0.1 N - XR CHEST [id number] 06:24:00 [facility] 1965 Sex: M Patient Name: ARNOLD KOENIG Unit No: [id number] EXAMS: CPT CODE: [id number] XR CHEST 1V [id number] EXAM: - XR CHEST 1V Location code:C3 HISTORY: PULM EDEMA COMPARISON: None available time of interpretation. FINDINGS: Single AP view of the chest is provided. Left IJ dialysis catheter tip at the caval atrial junction is present. Heart size and vascularity are within normal limits. The lungs are clear of focal consolidation. No effusion, pneumothorax, or acute osseous abnormality. IMPRESSION: 1. No radiographic evidence of acute cardiopulmonary process. at 0624 Reported and signed by: Shlomo Beasley MD CC: Susan Sosa MD Technol ogist: Janet Arellano, RT (R) Transcrpt Date/Tm/Trnsp: 03/30/2022 (623) t.SDR.CB5 Orig Print D/T: S: 03/30/2022 (626) [facility] NAME: ARNOLD KOENIG [id number] PHYS: CHERYL[place] [address] : 1965 AGE: 56 SEX: M LOC: Z.417 A PHONE #: [phone] EXAM DATE: 03/30/2022 STATUS: ADM IN FAX #: [phone] RADIOLOGY NO: PAGE 1 Signed Report HEPATITIS B SURF AB, [id number] 19:23:00* Test Item Value Reference Range Interpretation Comme nts HEPATITIS B SURF AB, QUANT (test code = HBSABQ) 3.6 mIU/mL ~~~~~~~~~~~~~~~~ ~~~~~~~ ~~~~~~~~~~~~~~~~~~~~~~~ ~~~~~~~~~~~~~~INTERPRET SHU DATA: <5.00 mIU/mL : Negative - Patient is considered to be notimmune to infection with HBV. >= 5.00 mIU/mL and <12.0 mIU/mL: Indeterminate - Unable todetermine if anti-HBs is present at levels consistent withimmunity. Patient's immune status should be further assessedby considering other clinical information or retestinganother specimen drawn at a later time. >=12.0 mIU/mL: Positive - Anti-HBs detected at >10 mIU/mL.Patient is considered to be immune to infection with HBV. Ithas not been determined what the clinical significance isfor values greater than >=12 mIU/mL, other than theindividual is considered to be immune to HBV infection.~~~~~~~~~~~~~ ~~~~~~~~~~~~~~~~~~~~~~~ ~~~~~~~~~~~~~~~~~~~~~~~ ~ AG HEPATITIS B [id number] 19:23:00* Test Item Value Reference Range Interpretation Comme nts AG HEPATITIS B SURFACE (test code = HBSAG) NEGATIVE NONREACTIVE GLUCOSE BEDSIDE [id number] 19:18:00* Test Item Value Reference Range Interpretation Comme nts GLUCOSE BEDSIDE TESTING (negrita t code = GLUBED) 259 MG/DL 60-99 H COMPREHENSIVE METABOLIC [id number] 18:39:00* Test Item Value Reference Range Interpretation Comme nts SODIUM (test code = NA) 139 MMOL/L 137-145 N POTASSIUM (test code = K) 5.4 MMOL/L 3.5-5.1 H CHLORIDE (test code = CL) 106 MMOL/L 98-107 N CARBON DIOXIDE (test code = CO2) 21 MMOL/L 22-30 L ANION GAP (test code = GAP) 17 MMOL/L 14-24 N GLUCOSE (test code = GLU) 295 MG/DL 74-106 H BLOOD UREA NITROGEN (test code = BUN) 78 MG/DL 9-20 H GLOMERULAR FILTRATION RATE (test code = GFR) 7 The Glomerular Filtration Rate is a calculated parameterbased on serum Creatinine, patient age and sex. GFR valuesless than 60 mL/min/1.73 square meters are indicative ofChronic Kidney Disease. Values less than 15 mL/min/1.73square meters indicate Kidney failure. The calculation forGFR is based on the CKD-EPI (2021) calculation. This formulais race indifferent and is the recommended formula for GFRby the National Kidney Foundation for Adults.The GFR will not calculate if the sex is unknown or if thepatient's age is <18 years. CREATININE (test code = CREAT) 8.50 MG/DL 0.66-1.25 H TOTAL PROTEIN (test code = PROT) 6.9 G/DL 6.2-7.6 N [employer] has made us aware of newinformation regarding the potential interference ofEltrombopag (a bone marrow stimulant used to treatthrombocytonmenia and aplastic anemia) with specific assayson the Sqrrl 5600 of which Total Protein is one of thoseassays performed in our lab.Interference testing performed at Ortho determined thatEltrombopag does interfere with Vitros Total Protein asfollowsEltrombopag Interference for Vitros Product Total Protein: Eltrombopag Max Observed Avg. BiasConcentration Concentration Concentration 2.5 mg/dl 6.0 g/dl +0.41 +0.34 3.5 mg/dl 6.0 g/dl +0.50 +0.45 5 mg/dl 6.0 g/dl +0.73 +0.65 2.5 mg/dl 8.0 g/dl +0.44 +0.41 3.5 mg/dl 8.0 g/dl +0.55 +0.52 5 mg/dl 8.0 g/dl +0.86 +0.77 ALBUMIN (test code = ALB) 4.0 G/DL 3.5-5.0 N CALCIUM (test code = CA) 9.0 MG/DL 8.4-10.2 N BILIRUBIN TOTAL (test code = BILT) 0.3 MG/DL 0.2-1.3 N Eltrombopag Inte rference for Vitros Product TBil, BuBc: Assay Eltrombopag Analyte/ Max Observed Avg. Bias Concentration Concentration Concentration TBil 7mg/dl TBil/ 1.2mg/dl +0.23mg.dl +0.20mg/dlBuBc 3.5mg/dl Bu/0.8mg/dl +0.25mg/dl +0.24mg/dlBuBc 7 mg/dl Bu/14.2mg/dl +0.38mg/dl +0.25mg/dlBuBc 5mg/dl Bc/0mg/dl +0.25mg/dl +0.15mg/dlBuBc 3.5mg/dl Bc/2.8mg/dl +0.25mg/dl +0.23mg/dl SGOT/AST (test code = AST) 21 UNITS/L 17-59 N SGPT/ALT (test code = ALT) 14 UNITS/L 0-49 N ALKALINE PHOSPHATASE (test code = ALKP) 107 UNITS/L 38-126 N LIPID PROFILE (CORONARY RISK)2022-03-29 18:39:00* Test Item Value Reference Range Interpretation Comme nts TRIGLYCERIDES (test code = TRIG) 79 MG/DL 150-199 L TRIGLYCERIDES REFERENCE RANGE:Normal: <150 mg/dLBorderline High: 150-199 mg/dLHigh: 200-499 mg/dLVery High: >=500 mg/dL CHOLESTEROL (test code = CHOL) 110 MG/DL <200 HDL CHOLESTEROL (test code = HDL) 48 MG/DL 40-59 N LIPOPROTEIN LDL (test code = LDL) 44 MG/DL 0-99 N OPTIMAL......... <100 mg/dLNEAR OPTIMAL/ABOVE OPTIMAL.........100-12 9 mg/dL BORDERLINE HIGH.........130-159 mg/dL HIGH.........160-189 mg/dL VERY HIGH.........>/= 190 mg/dL GLYCOSYLATED HEMOGLOBIN [id number] 18:28:00* Test Item Value Reference Range Interpretation Comme nts GLYCOSYLATED HEMOGLOBIN (HA1C) (test code = GLYHGB) 7.7 % 4.8-5.9 H Any condition th at shortens erythocyte survival or decreasesmean erythrocyte age (e.g., recovery from acute blood loss,hemolytic anemia) will falsely lower HGBA1c resultsregardless of the method used. HGBA1c results from patientswith HbSS, HbCC, and HbSc must be interpreted with cautiongiven the pathological processes, including anemia,increased red cell turnover, transfusion requirements, thatadversely impact HGBA1c as a marker of long-term glycemiccontrol. Alternative forms of testing such as fructosamineshould be considered for these patients. MEAN BLOOD GLUCOSE (test code = MBG) 174 MG/DL 70-110 H CBC W/AUTO [id number] 18:11:00* Test Item Value Reference Range Interpretation Comme nts WHITE BLOOD CELL (test code = WBC) 10.2 K/MM3 3.8-9.8 H RED BLOOD CELL (test code = RBC) 3.69 M/MM3 3.95-5.67 L HEMOGLOBIN (test code = HGB) 11.1 G/DL 12.4-16.7 L HEMATOCRIT (test code = HCT) 34.4 % 35.9-49.5 L MEAN CELL VOLUME (test code = MCV) 93 fL 81.7-96.1 N MEAN CELL HGB (test code = MCH) 30.1 pg 27.6-33.2 N MEAN CELL HGB CONCETRATION (test code = MCHC) 32.3 % 32.9-35.5 L RED CELL DISTRIBUTION WIDTH (test code = RDW) 13.4 % 12.1-15.2 N PLATELET COUNT (test code = PLT) 212 K/MM3 129-368 N MEAN PLATELET VOLUME (test c ode = MPV) 10.3 fl 7.4-10.4 N NEUTROPHIL % (test code = NT%) 84.8 % 43-75 H IMMATURE GRANULOCYTE % (test code = IG%) 0.3 % 0.0-2.0 N LYMPHOCYTE % (test code = LY%) 9.2 % 14-44 L MONOCYTE % (test code = MO%) 5.0 % 4-13 N EOSINOPHIL % (test code = EO%) 0.5 % 0-6 N BASOPHIL % (test code = BA%) 0.2 % 0-2 N NUCLEATED RBC % (test code = NRBC%) 0.0 % 0-1.0 N NEUTROPHIL # (test code = NT#) 8.64 K/mm3 2.0-7.6 H IMMATURE GRANULOCYTE # (test code = IG#) 0.03 x10 3/uL 0-0.03 N LYMPHOCYTE # (test code = LY#) 0.94 K/mm3 1.0-3.8 L MONOCYTE # (test code = MO#) 0.51 K/mm3 0.1-0.8 N EOSINOPHIL # (test code = EO#) 0.05 K/mm3 0.0-0.2 N BASOPHIL # (test code = BA#) 0.02 K/mm3 0.0-0.2 N NUCLEATED RBC # (test code = NRBC#) 0.00 K/mm3 0.0-0.1 N INTACT PTH CALCIUM [id number] 15:40:51* Test Item Value Reference Range Interpretation Comme nts PTH-INTACT (test code = 6654544808) 174.9 pg/mL 12.0-88.0 H PTH-CA Interpretation (test code = 5744955992) Further clinical data needed for interpretation. CALCIUM (test code = 5863978527) 9.1 mg/dL 8.6-10.6 Lab Interpretation (test code = 42047-0) [facility] [id number] 15:40:50* Test Item Value Reference Range Interpretation Comme nts PTH-INTACT (test code = 2434406484) 207.3 pg/mL 12.0-88.0 H PTH-CA Interpretation (test code = 6224959155) Further clinical data needed for interpretation. CALCIUM (test code = 9496162536) 9.2 mg/dL 8.6-10.6 Lab Interpretation (test code = 70989-6) Abnormal [facility] Metabolic Panel (NA, K, CL, CO2, GLUCOSE, BUN, CREATININE, CA)2020-10-23 11:42:35* Test Item Value Reference Range Interpretation Comme nts NA (test code = 0614548194) 142 mmol/L 135-145 K (test code = 9804283879) 3.8 mmol/L 3.5-5.0 CL (test code = 1595391861) 106 mmol/L 98-108 CO2 TOTAL (test code = 1804594001) 27 mmol/L 23-31 AGAP (test code = 4212858398) 2-16 BUN (test code = 5759188050) 76 mg/dL 7-23 H GLUCOSE (test code = 2922961347) 193 mg/dL 70-110 H CREATININE (test code = 7381017807) 6.07 mg/dL 0.60-1.25 H CALCIUM (test code = 9015791621) 9.1 mg/dL 8.6-10.6 eGFR (test code = 8058384153) mL/min/1.73m2 CANDY (test code = CANDY) Association of [...] or abnormalities in imaging tests). Lab Interpretation (test code = 57484-6) Abnormal [facility] CenterMagnesium [id number] 11:42:35* Test Item Value Reference Range Interpretation Comme nts MAGNESIUM (test code = 5844531767) 2.3 mg/dL 1.7-2.4 Lab Interpretation (test cod e = 65282-7) Normal [facility] with [id number] 11:10:11* Test Item Value Reference Range Interpretation Comme nts WBC (test code = 6690-2) See_Comment [Automated [employer]] The system which generated this result transmitted reference range: 4.20 - 10.70 10*3/?L. The reference range was not used to interpret this result as normal/abnormal. RBC (test code = 789-8) See_Comment L [Automated [employer] ge] The system which generated this result transmitted reference range: 4.26 - 5.52 10*6/?L. The reference range was not used to interpret this result as normal/abnormal. HGB (test code = 718-7) 8.2 g/dL 12.2-16.4 L HCT (test code = 4544-3) 26.0 % 38.4-49.3 L MCV (test code = 787-2) 91.2 fL 81.7-95.6 MCH (test code = 785-6) 28.8 pg 26.1-32.7 MCHC (test code = 786-4) 31.5 g/dL 31.2-35.0 RDW-SD (test code = 70343-6) 45.0 fL 38.5-51.6 RDW-CV (test code = 788-0) 13.4 % 12.1-15.4 PLT (test code = 777-3) See_Comment [Automated [employer]] The system which generated this result transmitted reference range: 150 - 328 10*3/?L. The reference range was not used to interpret this result as normal/abnormal. MPV (test code = 98022-4) 10.6 fL 9.8-13.0 NRBC/100 WBC (test code = 0647101843) See_Comment [Automated me ssage] The system which generated this result transmitted reference range: 0.0 - 10.0 /100 WBCs. The reference range was not used to interpret this result as normal/abnormal. NRBC x10^3 (test code = 5428687206) <0.01 See_Comment [Automated messa ge] The system which generated this result transmitted reference range: 10*3/?L. The reference range was not used to interpret this result as normal/abnormal. GRAN MAT (NEUT) % (test code = 770-8) 67.1 % IMM GRAN % (test code = 9812407875) 0.30 % LYMPH % (test code = 736-9) 21.3 % MONO % (test code = 5905-5) 7.6 % EOS % (test code = 713-8) 3.3 % BASO % (test code = 706-2) 0.4 % GRAN MAT x10^3(ANC) (test code = 3484888647) 5.36 10*3/uL 1.99-6.95 IMM GRAN x10^3 (test code = 5758446252) <0.03 0.00-0.06 LYMPH x10^3 (test code = 731-0) 1.70 10*3/uL 1.09-3.23 MONO x10^3 (test code = 742-7) 0.61 10*3/uL 0.36-1.02 EOS x10^3 (test code = 711-2) 0.26 10*3/uL 0.06-0.53 BASO x10^3 (test code = 704-7) 0.03 10*3/uL 0.01-0.09 Lab Interpretation (test code = 38114-4) Abnormal [facility] GLUCOSE (AUTOMATED)2020-10-23 05:54:27* Test Item Value Reference Range Interpretation Comme nts POCT GLU (test code = 3181985187) 218 mg/dL 70-110 H Lab Interpretation (test cod e = 08153-5) Abnormal [facility] CenterVITAMIN D, [id number] 05:11:32* Test Item Value Reference Range Interpretation Comme [facility] VIT D 25OH (test code = 50727-1) 46 ng/mL 25-80 CANDY (test code = CANDY) Deficiency: <20 ng/mLInsufficiency : 20-24 ng/mLOptimal: 25-80 ng/mL Lab Interpretation (test code = 46733-5) Normal [facility] B Core Antibody, [id number] 05:11:12* Test Item Value Reference Range Interpretation Comme [facility] HBC (test code = 6932301017) Negative HBC Semi-Quantitative (test code = 8959096582) [facility] B SURFACE [id number] 05:11:12* Test Item Value Reference Range Interpretation Comme [facility] HBsAB (test code = 6398980645) Negative HBsAb Semi-Quantitative (test code = 8749437319) mIU/mL CANDY (test code = CANDY) Interpretation: ?Hepatitis B Surface Antibody ? Negative - Patient is considered to be not immune to infection with HBV. ? ? Positive - Anti-HBs detected at greater than or equal to 12 mIU/mL. ?Patient is considered to be immune to infection with HBV. ? [facility] B SURFACE [id number] 04:53:21 * Test Item Value Reference Range Interpretation Comme [facility] HBsAg Semi-Quantitative (negrita t code = 5195-3) Negative Negative [facility] CenterTOTAL PROTEIN, URINE [id number] 03:14:16 * Test Item Value Reference Range Interpretation Comme [facility] T. PROT U (test code = 2888-6) 743 mg/dL [facility] CenterXR CHEST 2 [id number] 02:58:28Impression: Nodular opacity overlying the left upper lung, seen only in the APprojection. I cannot exclude pulmonary nodule related to infection orneoplasm. Further evaluation with CT of the chest isrecommended if thereare no prior studies for comparison. RL: 460 End of Report Ordering Physician: TESS MADRIGAL History: ?Assess for pulmonary edema. Rule out pulmonary tuberculosis.Pretesting [...] Radiant Results Inft User - 10/22/2020 10:17 PMCDT Ordering Physician: JOJO MADRIGALHistory: Assess for pulmonary edema. Rule out pulmonary tuberculosis.Pretesting for dialysis procedure.Technique: Chest, 2 viewsTechnical quality: AdequateComparison: NoneFindings: There are relativelylow lung volumes. There is an ill-defined nodularopacity [...] prior studies for comparison.RL: 460End of Report [facility]2020-10-23 01:11:29* Test Item Value Reference Range Interpretation Comme nts POCT GLU (test code = 0968838567) 143 mg/dL 70-110 H Lab Interpretation (test cod e = 42680-5) Abnormal [facility] CenterOSMOLALITY [id number] 00:56:19* Test Item Value Reference Range Interpretation Comme nts OSMO U (test code = 4588231883) See_Comment [Automated [facility]] The system which generated this result transmitted reference range: 50-1,100 mOsm/kg. The reference range was not used to interpret this result as normal/abnormal. Lab Interpretation (test code = 62425-3) Normal [facility] CenterVITAMIN D, [id number] 00:10:49* Test Item Value Reference Range Interpretation Comme nts VIT D 25OH (test code = 37989-7) 39 ng/mL 25-80 CANDY (test code = CANDY) Deficiency: <20 ng/mLInsufficiency : 20-24 ng/mLOptimal: 25-80 ng/mL Lab Interpretation (test code = 19241-7) Normal [facility] CenterFERRITIN [id number] 23:38:41* Test Item Value Reference Range Interpretation Comme nts FERRITIN (test code = 3888393761) 51.5 ng/mL 18.0-464.0 CANDY (test code = CANDY) Biotin has been reported to cause a negative bias, interpret results relative to patient's use of biotin. Lab Interpretation (test code = 87481-5) Normal [facility] CenterTHYROID STIMULATING [id number] 23:34:40 * Test Item Value Reference Range Interpretation Comme nts TSH (test code = 1414029733) See_Comment [Automated [facility]] The system which generated this result transmitted reference range: 0.45 - 4.70 mIU/L. The reference range was not used to interpret this result as normal/abnormal. Lab Interpretation (test code = 71374-9) Normal [facility] CenterN-TERMINAL [id number] 23:12:53* Test Item Value Reference Range Interpretation Comme nts NT-proBNP (test code = 3819560995) 592 pg/mL See_Comment H [Automated message] The system which generated this result transmitted reference range: <=125. The reference range was not used to interpret this result as normal/abnormal. CANDY (test code = CANDY) Biotin has been reported to cause a negative bias, interpret results relative to patient's use of biotin. Lab Interpretation (test code = 58563-6) Abnormal [facility] CenterTOTAL IRON BINDING [id number] 23:12:53 * Test Item Value Reference Range Interpretation Comme nts TIBC (test code = 4238124136) 326 ug/dL 250-410 Lab Interpretation (test cod e = 91200-5) Normal [facility] CenterGLYCOSYLATED HEMOGLOBIN (A1C)2020-10-22 22:38:18* Test Item Value Reference Range Interpretation Comme [facility] HGB A1C (test code = 4548-4) 7.0 % 4.0-5.7 H CANDY (test code = CANDY) Reference RangesNormal: <5.7%Prediabetes: 5.7 - 6.4%Diabetes: > 6.5% Lab Interpretation (test code = 60386-5) [facility]normal [facility] [id number] 21:46:35* Test Item Value Reference Range Interpretation Comme [facility] CK (test code = 9989012758) 122 U/L 33-194 Lab Interpretation (test cod e = 70036-1) [facility] [id number] 21:38:35* Test Item Value Reference Range Interpretation Comme [facility] FERRITIN (test code = 3395664850) 51.8 ng/mL 18.0-464.0 CANDY (test code = CANDY) Biotin has been reported to cause a negative bias, interpret results relative to patient's use of biotin. Lab Interpretation (test code = 31028-9) [facility] [id number] 21:37:33* Test Item Value Reference Range Interpretation Comme nts AMPHET (test code = 6780747751) Negative Negative VIDAL U (test code = 1418909926) Negative Negative BENZO U (test code = 6156551283) Negative Negative Cocaine Metabolite (test code = 7090228520) Presumptive Positive Negative A METHADONE (test code = 4352984393) Negative Negative OPIATES (test code = 2788500839) Negative Negative PCP (test code = 4257171252) Negative Negative THC (test code = 5571781225) Negative Negative CANDY (test code = CANDY) Urine Drug [...] employment testing, legal testing). Lab Interpretation (test code = 68624-2) [facility] 21:17:04* Test Item Value Reference Range Interpretation Comme nts PHOSPHORUS (test code = 6567435822) 5.3 mg/dL 2.5-5.0 H Lab Interpretation (test cod e = 95675-4) Abnormal [facility] [facility] [id number] 21:11:47 * Test Item Value Reference Range Interpretation Comme nts TIBC (test code = 1342087484) 329 ug/dL 250-410 % FE SAT (test code = 5466394356) 18 % 20-50 L Lab Interpretation (test cod e = 82396-6) [facility]normal [facility] CenterPhosphorus [id number] 20:56:00* Test Item Value Reference Range Interpretation Comme nts PHOSPHORUS (test code = 4143113626) 5.3 mg/dL 2.5-5.0 H Lab Interpretation (test cod e = 22545-3) [facility]normal [facility]URIC [id number] 20:55:40* Test Item Value Reference Range Interpretation Comme nts URIC ACID (test code = 8057915340) 11.0 mg/dL 3.6-8.0 H Lab Interpretation (test cod e = 80872-2) [facility]normal [facility] CenterIRON2021-[facility] 20:55:24* Test Item Value Reference Range Interpretation Comme nts IRON (test code = 3916530769) 58 ug/dL 50-160 Lab Interpretation (test cod e = 68641-3) Normal [facility] CenterCREATININE, URINE [id number] 20:52:05* Test Item Value Reference Range Interpretation Comme nts CREAT U (test code = 9490992189) 131.8 mg/dL [facility] CenterSODIUM, URINE [id number] 20:36:37* Test Item Value Reference Range Interpretation Comme nts NA URINE (test code = 0192324809) 31 mmol/L [facility] CenterPOTASSIUM, URINE [id number] 20:36:37* Test Item Value Reference Range Interpretation Comme nts K URINE (test code = 7280689823) 24.0 mmol/L [facility] CenterURINALYSIS2021-07-21 20:22:33* Test Item Value Reference Range Interpretation Comme nts APPEARANCE (test code = 6824470143) Hazy Clear A COLOR (test code = 6292970091) Yellow Yellow PH (test code = 6053758038) 4.8-8.0 SP GRAVITY (test code = 2017258365) 1.003-1.030 GLU U QUAL (test code = 4135787777) 150 mg/dL Normal A BLOOD (test code = 3119752536) 1+ Negative A KETONES (test code = 9824773803) Negative Negative PROTEIN (test code = 2887-8) 500 mg/dL Negative A UROBILIN (test code = 2373416089) Normal Normal BILIRUBIN (test code = 2140954220) Negative Negative NITRITE (test code = 4814385219) Negative Negative LEUK MING (test code = 9963054553) Negative Negative RBC/HPF (test code = 5427585539) See_Comment [Automated messa ge] The system which generated this result transmitted reference range: 0 - 3 HPF. The reference range was not used to interpret this result as normal/abnormal. WBC/HPF (test code = 5620771954) See_Comment [Automated [employer] ge] The system which generated this result transmitted reference range: 0 - 5 HPF. The reference range was not used to interpret this result as normal/abnormal. BACTERIA (test code = 4660437663) Few Negative A MUCOUS (test code = 4903588649) Slight Negative LPF A AMORPHOUS (test code = 3410373677) Few Rare HPF A SQ EPITH (test code = 2341517246) HPF YEAST BUD (test code = 3878643722) See_Comment H [Automated messa ge] The system which generated this result transmitted reference range: <=1 HPF. The reference range was not used to interpret this result as normal/abnormal. SPERM (test code = 7615264556) See_Comment [Automated [employer] ge] The system which generated this result transmitted reference range: <=1 HPF. The reference range was not used to interpret this result as normal/abnormal. HYAL CAST (test code = 2799777476) See_Comment [Automated messa ge] The system which generated this result transmitted reference range: <=2 LPF. The reference range was not used to interpret this result as normal/abnormal. Lab Interpretation (test code = 16066-8) Abnormal [facility] CenterCOVID-19 (ID NOW RAPID TESTING)2020-10-22 16:44:47* Test Item Value Reference Range Interpretation Comme nts SARS-CoV-2 Rapid ID NOW (test code = 98059-1) Not Detected Not Detected CANDY (test code = CANDY) ID NOW COVID-19 As say is an isothermal nucleic acid amplification test intended for the qualitative detection of nucleic acid from SARS-CoV-2 viral RNA in nasopharyngeal (RESPITE WORKER) specimens. It is used under Emergency Use [...] patient testing if clinically indicated. Lab Interpretation (test code = 43656-6) Normal [facility] CenterTROPONIN [id number] 16:31:45* Test Item Value Reference Range Interpretation Comments TROPONIN I (test code = 9292160157) 0.014 ng/mL See_Comment [Automated message] The system which generated this result transmitted reference range: <=0.034. The reference range was not used to interpret this result as normal/abnormal. CANDY (test code = CANDY) Reference (Normal) Range (defined by the 99th percentile reference [...] patient's use of biotin. Lab Interpretation (test code = 06968-4) Normal [facility] CenterMAGNESIUM2021-07-21 16:20:42* Test Item Value Reference Range Interpretation Comme nts MAGNESIUM (test code = 3081113107) 2.2 mg/dL 1.7-2.4 Lab Interpretation (test cod e = 39426-3) Normal [facility] CenterCOMP. METABOLIC PANEL (43314)2020-10-22 15:35:30* Test Item Value Reference Range Interpretation Comme nts NA (test code = 5600040826) 141 mmol/L 135-145 K (test code = 7244708805) 4.0 mmol/L 3.5-5.0 CL (test code = 7371328270) 104 mmol/L 98-108 CO2 TOTAL (test code = 9708170781) 27 mmol/L 23-31 AGAP (test code = 9566492188) 2-16 BUN (test code = 5036696499) 80 mg/dL 7-23 H GLUCOSE (test code = 2684328894) 143 mg/dL 70-110 H CREATININE (test code = 0137052537) 6.40 mg/dL 0.60-1.25 H TOTAL BILI (test code = 4559701989) 0.4 mg/dL 0.1-1.1 CALCIUM (test code = 4858525888) 9.4 mg/dL 8.6-10.6 T PROTEIN (test code = 7436684541) 7.8 g/dL 6.3-8.2 ALBUMIN (test code = 0756686152) 4.1 g/dL 3.5-5.0 ALK PHOS (test code = 0053198399) 115 U/L 34-122 ALTv (test code = 1742-6) 13 U/L 5-50 AST(SGOT) (test code = 6595572431) 16 U/L 13-40 eGFR (test code = 4534924921) mL/min/1.73m2 CANDY (test code = CANDY) Association of [...] or abnormalities in imaging tests). Lab Interpretation (test code = 31142-7) Abnormal [facility] WITH [id number] 15:26:32* Test Item Value Reference Range Interpretation Comme nts WBC (test code = 6690-2) See_Comment [Automated [facility]] The system which generated this result transmitted reference range: 4.20 - 10.70 10*3/?L. The reference range was not used to interpret this result as normal/abnormal. RBC (test code = 789-8) See_Comment L [Automated [employer]] The system which generated this result transmitted reference range: 4.26 - 5.52 10*6/?L. The reference range was not used to interpret this result as normal/abnormal. HGB (test code = 718-7) 8.7 g/dL 12.2-16.4 L HCT (test code = 4544-3) 26.4 % 38.4-49.3 L MCV (test code = 787-2) 89.8 fL 81.7-95.6 MCH (test code = 785-6) 29.6 pg 26.1-32.7 MCHC (test code = 786-4) 33.0 g/dL 31.2-35.0 RDW-SD (test code = 78873-5) 43.7 fL 38.5-51.6 RDW-CV (test code = 788-0) 13.2 % 12.1-15.4 PLT (test code = 777-3) See_Comment [Automated [employer] ge] The system which generated this result transmitted reference range: 150 - 328 10*3/?L. The reference range was not used to interpret this result as normal/abnormal. MPV (test code = 26318-3) 10.2 fL 9.8-13.0 NRBC/100 WBC (test code = 7077768116) See_Comment [Automated [employer]] The system which generated this result transmitted reference range: 0.0 - 10.0 /100 WBCs. The reference range was not used to interpret this result as normal/abnormal. NRBC x10^3 (test code = 6285200448) <0.01 See_Comment [Automated [employer] ge] The system which generated this result transmitted reference range: 10*3/?L. The reference range was not used to interpret this result as normal/abnormal. GRAN MAT (NEUT) % (test code = 770-8) 71.3 % IMM GRAN % (test code = 0899423436) 0.40 % LYMPH % (test code = 736-9) 15.5 % MONO % (test code = 5905-5) 9.0 % EOS % (test code = 713-8) 3.3 % BASO % (test code = 706-2) 0.5 % GRAN MAT x10^3(ANC) (test code = 6246482002) 5.77 10*3/uL 1.99-6.95 IMM GRAN x10^3 (test code = 8664207708) 0.03 10*3/uL 0.00-0.06 LYMPH x10^3 (test code = 731-0) 1.25 10*3/uL 1.09-3.23 MONO x10^3 (test code = 742-7) 0.73 10*3/uL 0.36-1.02 EOS x10^3 (test code = 711-2) 0.27 10*3/uL 0.06-0.53 BASO x10^3 (test code = 704-7) 0.04 10*3/uL 0.01-0.09 Lab Interpretation (test code = 47499-9) Abnormal [facility] Notes Date/Time Note Provider Source 2023-11-17 21:33:00 [id number] [facility] [id number] [place] [address] PATIENT NAME: ARNOLD KOENIG ADMIT DATE: 11/13/23 ACCOUNT NO: [id number] ROOM NO: [id number] AGE: 58 REPORT TYPE: 360 - QUERY RESPONSE DOCUMENT SEX: M ADMITTING PHYSICIAN: Koby Low MD ATTENDING PHYSICIAN: Koby Low MD Provider Query QUERY TEXT: Condition General 360MD Query related questions should be directed to: JANKI Valel RN CDI [email or web address] Based on your clinical judgment, can you clarify the significance (if any) of the below lab findings? - Hyponatremia - Chronic hyponatremia related to ESRD - Unspecified electrolyte imbalance - Other (please specify) The patient's Clinical Indicators include: Sodium - LABS 11/13/2023 16:17 - 128?L Sodium - LABS 11/14/2023 05:50 - 130?L Nephrology Consultation Note by Milton Cardenas at 11/13/2023 16:28 "ESRD" Nephrology Progress Note by Milton Cardenas at 11/14/2023 10:44 "Continue HD today/MWF" DAILY LAB MONITORING 11/12 - 11/13 Options provided: -- Respond - Create new note now -- Dismiss - Not applicable / Not valid -- Dismiss - Clinically unable to determine / Unknown -- Assign to another provider QUERY RESPONSE: Provider was clinically unable to determine a response for this query Query created by: NATY EASLEY on 11/14/2023 7:57 PM at 2133 PATIENT NAME: ARNOLD KOENIG [facility] 2023-11-14 21:52:00 [facility] ([facility] Hospitalist Discharge Summary REPORT#:[id number] REPORT STATUS: Signed REPORT INITIALIZATION DATE:11/14/23 TIME:2151 PATIENT: ARNOLD KOENIG UNIT #: [id number] ROOM/BED: [address] : [birth year] AGE: 58 SEX: M ATTEND: Koby Low MD ADM AUTHOR: Koby Low MD REPT SERVICE DT/TIME: 11/14/232151 * ALL edits or amendments must be made on the electronic/computer document * General Information Date of admission: Observation Start Date: Date of admission: 11/13/23 Discharge date: 11/14/23 Discharge diagnosis: #Sepsis present on admission secondary to #Left lower extremity cellulitis #Acute on chronic anemia #Hyperkalemia #Anion gap metabolic acidosis #Morbid obesity #Suspected ANA Hospital course: Mr. Koenig is a 58-year-old male who presented to the hospital with #Sepsis present on admission secondary to #Left lower extremity cellulitis #Acute on chronic anemia #Hyperkalemia #Anion gap metabolic acidosis #Morbid obesity #Suspected ANA -Continue antibiotics. Await culture. -Treat hyperkalemia medically. currently on HD Nephrology consulted. -Resume home medication once available. Patient left against medical advice. He understood the risk of leaving without completion of antibiotics given sepsis. Objective Head/Eyes: atraumatic, clear cornea, EOMI, normal conjunctiva/sclera, normal eyelids/periorb., normocephalic, PERRL ENT: normal dentition, normal ear left, normal ear right, normal nose, normal pharynx, normal sinus Neck: full range of motion, non-tender, normal thyroid, supple/no meningismus, no bruit/NL carotids, no JVD, no masses or swelling Cardiovascular: normal capillary refill, normal heart sounds Respiratory: clear to auscultation, no distress Abdomen: non-tender, normal bowel sounds, soft, no distention, no guarding, no hernia, no mass/organomegaly, no rebound Extremities: moves all, normal capillary refill, normal range of motion, no edema Musculoskeletal: normal inspection, painless range of motion Neuro/SAFETY DIRECTOR: alert Skin: abnormal color, abnormal temperature, intact Psychiatry: normal affect, normal judgment/insight, normal mood, not homicidal, not suicidal Discharge Instructions PCP PCP follow-up: PCP: Zeke Russo DO Additional Discharge Routines: None at 1941 RPT #: [id number] END OF REPORT [facility] 2023-11-14 19:02:00 [facility] Hospitalist Progress Note REPORT#:[id number] REPORT STATUS: Signed REPORT INITIALIZATION DATE:11/14/23 TIME:1901 PATIENT: ARNOLD KOENIG UNIT #: [id number] ROOM/BED: [address] : [birth year] AGE: 58 SEX: M ATTEND: Koby Low MD ADM AUTHOR: Koby Low MD REPT SERVICE DT/TIME: 11/14/23 1102 * ALL edits or amendments must be made on the electronic/computer document * Subjective Chief complaint: Patient was seen during hemodialysis today. He reportedly did not sleep well yesterday threfore sleepy during my multiple visits today. Objective General VS/I O: Vital Signs: Date Time Temp Pulse Resp B/P B/P Pulse O2 O2 Flow FiO2 Mean Ox Delivery Rate 11/13 1604 99.3 90 15 176/81 112.3 89 11/13 1304 98.8 83 16 128/61 98 Room air 11/13 1136 99.0 80 108/57 74.2 88 11/13 0919 98.0 82 16 118/60 98 Room air 11/13 0738 98.8 83 161/65 96.8 86 11/13 0335 100.2 94 16 164/74 103.9 91 11/12 2314 100.6 98 16 194/79 117.4 91 11/12 194 97.7 88 16 139/71 93.5 91 24 hour I O ending at 0700: 11/13 0700 11/12 1900 Intake Total Output Total 1100 Balance -1100 Number 0 Bowel Movements Number Voids 0 Output, Urine 1100 Patient 136.364 kg Weight Weight Stated/Reported Measurement Method PATIENT WEIGHT: Weight (lb): Weight (oz): Weight (kg): 136.364 Medications: Active Meds + DC'd Last 24 Hrs Famotidine (PEPCID) 20 MG DIALYSIS-DOSE AFTER PO (CKD) Miscellaneous Information (VANCOMYCIN PHARMACY TO DOSE) 1 EACH ASDIR IV (PEND) Heparin Sodium (HEPARIN SODIUM) 4,100 UNITS ASDIR PRN IV Aspirin (ECOTRIN) 81 MG DAILY PO Ceftriaxone Sodium (ROCEPHIN) 1,000 MG Q24H IV Sterile Water (WATER FOR INJECTION) 10 ML Docusate Sodium (COLACE) 100 MG DAILY PO Famotidine (PEPCID) 20 MG BID AC PO (DC) Clonidine HCl (CATAPRES) 0.1 MG Q8H PRN PRN PO Heparin Sodium (Porcine) (HEPARIN SODIUM) 5,000 UNIT Q8HR SUBQ Acetaminophen (TYLENOL) 650 MG Q4H PRN PRN PO Hydralazine HCl (APRESOLINE) 10 MG Q6H PRN PRN IV Lactulose (LACTULOSE) 20 GM Q6H PRN PRN PO Ondansetron HCl (ZOFRAN) 4 MG Q4H PRN PRN IV Furosemide (LASIX) 80 MG ONCE ONE IV (DC) Ceftriaxone Sodium (ROCEPHIN) 1,000 MG X1ED STA IV (DC) Sterile Water (WATER FOR INJECTION) 10 ML Dietitian nutrition assessment The data set between the solid lines has been imported from the dietitian's assessment. ___ BMI Calculated: 44.4 Nutrition related diagnosis: Nutrition diagnosis details: Nutrition problem: Nutrition etiology: Nutrition signs and symptoms: Nutrition prescription: Dietitian name: Assessment completed: ___ Physical Exam General appearance: obese Head/Eyes: atraumatic, clear cornea, EOMI, normal conjunctiva/sclera, normal eyelids/periorb., normocephalic, PERRL ENT: normal dentition, normal ear left, normal ear right, normal nose, normal pharynx, normal sinus Neck: full range of motion, non-tender, normal thyroid, supple/no meningismus, no bruit/NL carotids, no JVD, no masses or swelling Cardiovascular: normal capillary refill, normal heart sounds Respiratory: clear to auscultation, no distress Abdomen: non-tender, normal bowel sounds, soft, no distention, no guarding, no hernia, no mass/organomegaly, no rebound Extremities: moves all, normal capillary refill, normal range of motion, no edema Musculoskeletal: normal inspection, painless range of motion Neuro/SAFETY DIRECTOR: alert Skin: abnormal color, abnormal temperature, intact Psychiatry: normal affect, normal judgment/insight, normal mood, not homicidal, not suicidal Results Findings/Data: Laboratory Tests 11/13 0550 Chemistry Sodium (136 - 145 mmol/L) 130 L Potassium (3.4 - 5.0 mmol/L) 5.7 H Chloride (98 - 107 mmol/L) 93 L Carbon Dioxide (21 - 32 mmol/L) 20 L Anion Gap (4 - 15 GAP calc) 17 H BUN (7 - 18 MG/DL) 90 H Creatinine (0.6 - 1.0 MG/DL) 14.3 H Glomerular Filtr Rate (>60 estGFR) 4 L Glucose (70 - 110 MG/DL) 77 Calcium (8.5 - 10.1 MG/DL) 8.7 Total Bilirubin (0.0 - 1.0 MG/DL) 0.4 AST (15 - 37 Unit/L) 11 L ALT (30 - 65 Unit/L) 8 L Total Alk Phosphatase (50 - 136 Unit/L) 146 H Total Protein (6.4 - 8.2 G/DL) 7.4 Albumin (3.4 - 5.0 G/DL) 2.5 L Globulin (GM/dL) 4.9 Albumin/Globulin Ratio (1.2 - 2.2 RATIO) 0.5 L Laboratory Tests 11/13 0550 Hematology WBC (3.5 - 11.0 K/mm3) 19.5 H RBC (4.70 - 6.10 M/mm3) 3.09 L Hgb (12.3 - 15.9 G/DL) 9.3 L Hct (35.8 - 46.7 %) 29.4 L MCV (86.3 - 98.9 Fl) 95.1 MCH (28.9 - 34.4 pg) 30.1 MCHC (32.1 - 34.5 G/DL) 31.6 L RDW (11.5 - 14.5 SD) 13.4 Plt Count (150 - 450 K/mm3) 239 MPV (7.0 - 9.6 fL) 9.70 H Neut % (Auto) (40 - 76 %) 85.9 H Lymph % (Auto) (20.5 - 51.1 %) 5.6 L [place] % (Auto) (1.7 - 9.3 %) 7.5 Eos % (Auto) (0.0 - 6.0 %) 0.3 Baso % (Auto) (0.0 - 2.0 %) 0.2 Neut # (Auto) (1.8 - 7.6 K/mm3) 16.8 H Lymph # (Auto) (0.6 - 3.0 K/mm3) 1.1 [place] # (Auto) (0.2 - 1.5 K/mm3) 1.5 Eos # (Auto) (0.0 - 0.4 K/mm3) 0.1 Baso # (Auto) (0.0 - 0.2 K/mm3) 0.0 Abs Immat Gran (auto) (0.00 - 0.03 x10 3/uL) 0.10 H Immature Gran % (0.0 - 5.0 %) 0.5 Nucleated RBC % (0.0 - 1.0 /100WBC%) 0.0 Diagnosis, Assessment Plan Orders: Procedure Date/time Status PHARMACY CONSULT 11/13 1900 Active Free Text DxA P Notes Free text DxA P notes: Mr. Koenig is a 58-year-old male who presented to the hospital with #Sepsis present on admission secondary to #Left lower extremity cellulitis #Acute on chronic anemia #Hyperkalemia #Anion gap metabolic acidosis #Morbid obesity #Suspected ANA -Continue antibiotics. Await culture. -Treat hyperkalemia medically. currently on HD Nephrology consulted. -Resume home medication once available. DVT prophylaxis Patient is full code. at 1904 RPT #: [id number] END OF REPORT [facility] 2023-11-14 10:42:00 [facility] Nephrology Progress Note REPORT#:[id number] REPORT STATUS: Signed REPORT INITIALIZATION DATE:11/14/23 TIME:104 PATIENT: ARNOLD KOENIG UNIT #: [id number] ROOM/BED: [address] : [birth year] AGE: 58 SEX: M ATTEND: Koby Low MD ADM AUTHOR: Milton Reyna MD REPT SERVICE DT/TIME: 11/14/23 1042 * ALL edits or amendments must be made on the electronic/computer document * Subjective Chief complaint: Seen in dialysis, tolerating 3.5 L UF well Still complaining of left leg pain HPI: 58-year-old with HTN/DM/ESRD on HD at [place] with Dr. Nguyen Presenting with left leg pain Renal consulted for dialysis Denies any shortness of breath Objective General VS/I O: Vital Signs: Date Time Temp Pulse Resp B/P B/P Pulse O2 O2 Flow FiO2 Mean Ox Delivery Rate 11/13 0919 98.0 82 16 118/60 98 Room air 11/13 0738 98.8 83 161/65 96.8 86 11/13 0335 100.2 94 16 164/74 103.9 91 11/12 2314 100.6 98 16 194/79 117.4 91 11/12 1947 97.7 88 16 139/71 93.5 91 11/12 1753 2 11/12 1738 98.2 74 16 146/78 100.4 96 11/12 1700 70 16 122/80 94 96 Nasal 2 cannula 11/12 1505 97.8 78 17 125/71 89 96 Nasal 3 cannula 24 hour I O ending at 0700: 11/13 0700 11/12 1900 Intake Total Output Total 1100 Balance -1100 Number 0 Bowel Movements Number Voids 0 Output, Urine 1100 Patient 301 lb Weight Weight Stated/Reported Measurement Method PATIENT WEIGHT: Weight (lb): Weight (oz): Weight (kg): 136.364 Physical Exam Head/eyes: atraumatic, clear cornea ENT: normal nose, no uvular shift/swelling Cardiovascular: normal heart sounds, regular rate and rhythm Respiratory: aerating well, clear to auscultation Genitourinary: no flank pain, no urinary catheter Extremities: erythema and edema of LLE , more over garcia , non RLE Neuro/SAFETY DIRECTOR: alert, oriented X 3, CN II-XII intact Results Findings/Data: Laboratory Tests 11/13 11/12 11/12 11/12 0550 1843 1617 1601 Chemistry Sodium (136 - 145 mmol/L) 130 L 128 L Potassium (3.4 - 5.0 mmol/L) 5.7 H 5.4 H Chloride (98 - 107 mmol/L) 93 L 92 L Carbon Dioxide (21 - 32 mmol/L) 20 L 20 L Anion Gap (4 - 15 GAP calc) 17 H 16 H BUN (7 - 18 MG/DL) 90 H 80 H Creatinine (0.6 - 1.0 MG/DL) 14.3 H 13.1 H Glomerular Filtr Rate (>60 estGFR) 4 L 4 L Glucose (70 - 110 MG/DL) 77 101 Lactic Acid (0.4 - 1.9 mmol/L) 0.2 L Calcium (8.5 - 10.1 MG/DL) 8.7 8.4 L Magnesium (1.8 - 2.4 MG/DL) 2.2 Total Bilirubin (0.0 - 1.0 MG/DL) 0.4 0.3 Direct Bilirubin (0.0 - 0.3 MG/DL) 0.1 Indirect Bilirubin (0.2 - 1.2 MG/DL) 0.20 AST (15 - 37 Unit/L) 11 L 12 L ALT (30 - 65 Unit/L) 8 L 10 L Total Alk Phosphatase (50 - 136 Unit/L) 146 H 137 H Troponin I High Sens (0 - 78 ng/L) 9.1 NT-Pro-B Natriuret Pep (0 - 100 PG/ML) 8847 H Total Protein (6.4 - 8.2 G/DL) 7.4 7.0 Albumin (3.4 - 5.0 G/DL) 2.5 L 2.5 L Globulin (GM/dL) 4.9 Albumin/Globulin Ratio (1.2 - 2.2 RATIO) 0.5 L Lipase (13 - 75 Unit/L) 19 Laboratory Tests 11/12 1606 Coagulation INR (0.8 - 1.2 INR Unit) 1.21 H PTT (Saray) (26 - 35 SECONDS) 30.6 PT Patient/Control Mix (9.3 - 12.9 SECONDS) 13.3 H Laboratory Tests 11/13 11/12 0550 1606 Hematology WBC (3.5 - 11.0 K/mm3) 19.5 H 16.4 H RBC (4.70 - 6.10 M/mm3) 3.09 L 2.85 L Hgb (12.3 - 15.9 G/DL) 9.3 L 8.8 L Hct (35.8 - 46.7 %) 29.4 L 27.5 L MCV (86.3 - 98.9 Fl) 95.1 96.5 MCH (28.9 - 34.4 pg) 30.1 30.9 MCHC (32.1 - 34.5 G/DL) 31.6 L 32.0 L RDW (11.5 - 14.5 SD) 13.4 13.3 Plt Count (150 - 450 K/mm3) 239 211 MPV (7.0 - 9.6 fL) 9.70 H 9.80 H Neut % (Auto) (40 - 76 %) 85.9 H 83.4 H Lymph % (Auto) (20.5 - 51.1 %) 5.6 L 6.6 L [place] % (Auto) (1.7 - 9.3 %) 7.5 8.4 Eos % (Auto) (0.0 - 6.0 %) 0.3 0.9 Baso % (Auto) (0.0 - 2.0 %) 0.2 0.2 Neut # (Auto) (1.8 - 7.6 K/mm3) 16.8 H 13.7 H Lymph # (Auto) (0.6 - 3.0 K/mm3) 1.1 1.1 [place] # (Auto) (0.2 - 1.5 K/mm3) 1.5 1.4 Eos # (Auto) (0.0 - 0.4 K/mm3) 0.1 0.1 Baso # (Auto) (0.0 - 0.2 K/mm3) 0.0 0.0 Abs Immat Gran (auto) (0.00 - 0.03 x10 3/uL) 0.10 H 0.08 H Immature Gran % (0.0 - 5.0 %) 0.5 0.5 Nucleated RBC % (0.0 - 1.0 /100WBC%) 0.0 0.0 Laboratory Tests 11/12 11/12 1600 1600 Serology Hep Bs Antigen (NEGATIVE SCREEN) NEGATIVE SARS-CoV-2 Ag (Rapid) (Negative) NEGATIVE Microbiology Date/Time Procedure - Status Source Growth 11/12 1617 MRSA Screen - COMP NASAL Diagnosis, Assessment Plan Problem List/A P: 1. ESRD (end stage renal disease) 2. Acute cellulitis Free Text A P: ESRD Left leg cellulitis Obesity Hypertension Plan Continue HD today/MWF QB QF 400/200 care of to, UF of 3.5 L tolerating well Follow phosphorus level Follow H H Pain control for left leg cellulitis Continue antibiotics regimen at 1044 RPT #: [id number] END OF REPORT [facility] 2023-11-13 21:04:00 [facility] ([facility]) Hospitalist History Physical REPORT#:[id number] REPORT STATUS: Signed REPORT INITIALIZATION DATE:11/13/23 TIME:2103 PATIENT: ARNOLD KOENIG UNIT #: [id number] ROOM/BED: [address] : [birth year] AGE: 58 SEX: M ATTEND: Koby Low MD ADM AUTHOR: Koby Low MD REPT SERVICE DT/TIME: 11/13/232103 * ALL edits or amendments must be made on the electronic/computer document * History of Present Illness HPI Chief complaint: LLE pain PCP: PCP: Zeke Russo DO HPI: Mr. Koengi is a 58-year-old male with a history of end-stage renal disease on hemodialysis who presented to the hospital with left lower extremity redness and swelling. Patient was initiated on vancomycin and Ancef from the [facility]. He reported subjective fever and chills at home. He is unable to recall the onset of his symptoms. Hx Obtained From Patient History Past Medical Surgical Hx Additional medical history: End-stage renal disease on hemodialysis Hypertension Chronic anemia Social History Alcohol use: Denies EtOH use Drug use: Denies recreational drugs Smoking status for patients 13 years old or older: Unknown,if ever smoked Medication/Allergy-Vaccine Hx Allergies: Coded Allergies: No Known Allergies (11/13/23) OBJECTIVE VS/I O: Vital Signs Date Temp Pulse Resp B/P B/P Mean Pulse Ox FiO2 11/12 97.7-98.2 70-88 16-17 122-146/71-80 89-100.4 91-96 Last Documented: Result Date Time Pulse Ox 91 11/12 1946 B/P 139/71 11/12 1946 B/P Mean 93.5 11/12 1946 Temp 97.7 11/12 1946 Pulse 88 11/12 1946 Resp 16 11/12 1946 O2 Flow Rate 2 11/12 1753 O2 Delivery Nasal cannula 11/12 1700 Patient Weight and BMI Weight (kg): 136.364 BMI: 44.4 Medications: Active Meds + DC'd Last 24 Hrs Aspirin (ECOTRIN) 81 MG DAILY PO Ceftriaxone Sodium (ROCEPHIN) 1,000 MG Q24H IV Sterile Water (WATER FOR INJECTION) 10 ML Famotidine (PEPCID) 20 MG BID AC PO Heparin Sodium (Porcine) (HEPARIN SODIUM) 5,000 UNIT Q8HR SUBQ Acetaminophen (TYLENOL) 650 MG Q4H PRN PRN PO Hydralazine HCl (APRESOLINE) 10 MG Q6H PRN PRN IV Lactulose (LACTULOSE) 20 GM Q6H PRN PRN PO Ondansetron HCl (ZOFRAN) 4 MG Q4H PRN PRN IV Furosemide (LASIX) 80 MG ONCE ONE IV Sodium Polystyrene Sulfonate (KAYEXELATE) 15 GM ONCE ONE PO (DC) Ceftriaxone Sodium (ROCEPHIN) 1,000 MG X1ED STA IV Sterile Water (WATER FOR INJECTION) 10 ML General appearance: alert, awake Head/Eyes: atraumatic, clear cornea, EOMI, normal conjunctiva/sclera, normal eyelids/periorb., normocephalic, PERRL ENT: normal dentition, normal ear left, normal ear right, normal nose, normal pharynx, normal sinus Neck: full range of motion, non-tender, normal thyroid, supple/no meningismus, no bruit/NL carotids, no JVD, no masses or swelling Cardiovascular: normal capillary refill, normal heart sounds Respiratory: clear to auscultation, no distress Abdomen: non-tender, normal bowel sounds, soft, no distention, no guarding, no hernia, no mass/organomegaly, no rebound Extremities: moves all, normal capillary refill, normal range of motion, no edema Musculoskeletal: normal inspection, painless range of motion Neuro/SAFETY DIRECTOR: alert Skin: abnormal color, abnormal temperature, intact Psychiatry: normal affect, normal judgment/insight, normal mood, not homicidal, not suicidal Results Findings/Data: Laboratory Tests: 11/12 11/12 11/12 11/12 1843 1617 1606 1601 Chemistry Sodium (136 - 145 mmol/L) 128 L Potassium (3.4 - 5.0 mmol/L) 5.4 H Chloride (98 - 107 mmol/L) 92 L Carbon Dioxide (21 - 32 mmol/L) 20 L Anion Gap (4 - 15 GAP calc) 16 H BUN (7 - 18 MG/DL) 80 H Creatinine (0.6 - 1.0 MG/DL) 13.1 H Glomerular Filtr Rate (>60 estGFR) 4 L Glucose (70 - 110 MG/DL) 101 Lactic Acid (0.4 - 1.9 mmol/L) 0.2 L Calcium (8.5 - 10.1 MG/DL) 8.4 L Magnesium (1.8 - 2.4 MG/DL) 2.2 Total Bilirubin (0.0 - 1.0 MG/DL) 0.3 Direct Bilirubin (0.0 - 0.3 MG/DL) 0.1 Indirect Bilirubin (0.2 - 1.2 MG/DL) 0.20 AST (15 - 37 Unit/L) 12 L ALT (30 - 65 Unit/L) 10 L Total Alk Phosphatase (50 - 136 Unit/L) 137 H Troponin I High Sens (0 - 78 ng/L) 9.1 NT-Pro-B Natriuret Pep (0 - 100 PG/ML) 8847 H Total Protein (6.4 - 8.2 G/DL) 7.0 Albumin (3.4 - 5.0 G/DL) 2.5 L Lipase (13 - 75 Unit/L) 19 Coagulation INR (0.8 - 1.2 INR Unit) 1.21 H PTT ([place]) (26 - 35 SECONDS) 30.6 PT Patient/Control Mix (9.3 - 12.9 SECONDS) 13.3 H Hematology WBC (3.5 - 11.0 K/mm3) 16.4 H RBC (4.70 - 6.10 M/mm3) 2.85 L Hgb (12.3 - 15.9 G/DL) 8.8 L Hct (35.8 - 46.7 %) 27.5 L MCV (86.3 - 98.9 Fl) 96.5 MCH (28.9 - 34.4 pg) 30.9 MCHC (32.1 - 34.5 G/DL) 32.0 L RDW (11.5 - 14.5 SD) 13.3 Plt Count (150 - 450 K/mm3) 211 MPV (7.0 - 9.6 fL) 9.80 H Neut % (Auto) (40 - 76 %) 83.4 H Lymph % (Auto) (20.5 - 51.1 %) 6.6 L [place] % (Auto) (1.7 - 9.3 %) 8.4 Eos % (Auto) (0.0 - 6.0 %) 0.9 Baso % (Auto) (0.0 - 2.0 %) 0.2 Neut # (Auto) (1.8 - 7.6 K/mm3) 13.7 H Lymph # (Auto) (0.6 - 3.0 K/mm3) 1.1 [place] # (Auto) (0.2 - 1.5 K/mm3) 1.4 Eos # (Auto) (0.0 - 0.4 K/mm3) 0.1 Baso # (Auto) (0.0 - 0.2 K/mm3) 0.0 Abs Immat Gran (auto) (0.00 - 0.03 x10 3/uL) 0.08 H Immature Gran % (0.0 - 5.0 %) 0.5 Nucleated RBC % (0.0 - 1.0 /100WBC%) 0.0 11/12 08/ 1600 1600 Serology Hep Bs Antigen (NEGATIVE SCREEN) NEGATIVE SARS-CoV-2 Ag (Rapid) (Negative) NEGATIVE Laboratory Tests 11/13/23 1617: [Embedded Image Not Available] 11/13/23 1606: [Embedded Image Not Available] Diagnosis, Assessment Plan Free Text A P: Mr. Koenig is a 58-year-old male who presented to the hospital with #Sepsis present on admission secondary to #Left lower extremity cellulitis #Acute on chronic anemia #Hyperkalemia #Anion gap metabolic acidosis #Morbid obesity #Suspected ANA -Continue antibiotics. Await culture. -Treat hyperkalemia medically. Nephrology consulted. Patient is planned for hemodialysis. -Resume home medication once available. DVT prophylaxis Patient is full code. Plan discussed with: patient Resuscitation discussion: Discussed with: patient Code status: full code at 1902 RPT #: [id number] END OF REPORT [facility] 2023-11-13 16:27:00 [facility]) Nephrology Consultation Note REPORT#:[id number] REPORT STATUS: Signed REPORT INITIALIZATION DATE:11/13/23 TIME:1626 PATIENT: ARNOLD KOENIG UNIT #: [id number] ROOM/BED: [address] : [birth year] AGE: 58 SEX: M ATTEND: Koby Low MD ADM AUTHOR: Milton Reyna MD REPT SERVICE DT/TIME: 11/13/231626 * ALL edits or amendments must be made on the electronic/computer document * History of Present Illness Requesting clinician: ER Reason for consult: Left leg cellulitis HPI: 58-year-old with HTN/DM/ESRD on HD at [place] with Dr. Nguyen Presenting with left leg pain Renal consulted for dialysis Denies any shortness of breath History - Adult longitudinal Smoking status for patients 13 years old or older: Unknown,if ever smoked Allergies: Coded Allergies: No Known Allergies (11/13/23) Review of Systems All systems rev neg: except as marked Objective General VS/I O: Vital Signs: Date Time Temp Pulse Resp B/P B/P Pulse O2 O2 Flow FiO2 Mean Ox Delivery Rate 11/12 1505 97.8 78 17 125/71 89 96 Nasal 3 cannula PATIENT WEIGHT: Weight (lb): Weight (oz): Weight (kg): 136.364 Medications: Active Meds + DC'd Last 24 Hrs Ceftriaxone Sodium (ROCEPHIN) 1,000 MG X1ED STA IV Sterile Water (WATER FOR INJECTION) 10 ML Physical Exam General appearance: chronically ill appearing, awake Head/eyes: atraumatic, clear cornea ENT: normal nose, no uvular shift/swelling Cardiovascular: normal heart sounds, regular rate and rhythm Respiratory: aerating well, clear to auscultation Genitourinary: no flank pain, no urinary catheter Extremities: erythema and edema of LLE , more over garcia , non RLE Neuro/SAFETY DIRECTOR: alert, oriented X 3, CN II-XII intact Diagnosis, Assessment Plan Problem List/A P: 1. ESRD (end stage renal disease) 2. Acute cellulitis Free Text DxA P Notes Free text DxA P notes: ESRD Left leg cellulitis Obesity Hypertension Plan Continue HD in a.m./MWF Follow status related to controlled Renally dose all meds Initiate antibiotics for cellulitis Follow H H, needed if hold Follow phosphorus level Thank you for this consult, will follow along at 1042 [facility] #: [id number] END OF REPORT [facility] 2023-11-11 13:26:24 Pt given printed and verbal discharge instructions regarding pain of left lower extremity, encouraged hydration, 3 Prescriptions sent to pharmacy Discussed antibiotic therapy and to take until all completed unless adverse reaction occurs - if occurs, discontinue medication and follow up with pcp/seek medical attention Discussed tramadol side affects and to avoid driving/operating machinery/or engaging in activities requiring alertness while taking. Pt verbalized understanding of instructions, pt awake alert oriented, resp reg unlabored, skin w/d, color appropriate for race, moves all ext well,pt encouraged to follow up with pcp Advised to seek medical attention for new/prolonged/worsening of symptoms, Symptoms improved No adverse reaction to meds given in ER noted upon discharge PIV d'cd, dressing to site, catheter in tact. Awake, alert oriented, resp reg unlabored, skin w/d, pt leaving amb with steady gait, in no apparent distress Juju Arias RN [facility] 2023-11-11 09:57:00 Patient states: "I didn't do anything to my left leg but it hurts from the knee down since Tuesday. I'm a dialysis patient and supposed to have my session today but I didn't go yet because I cannot take the pain anymore." Charlotte Rider RN [facility] 2023-11-10 12:00:00 ASSESSMENT SUMMARY ARNOLD KOENIG is a 58 year old man seen today by [facility] for a [facility] Visit. Additional CommentsApproximately 80 minutes spent speaking with patient, reviewing records, documenting Visit PurposeThese visits are scheduled to augment PCPs to close care and documentation gaps, reconcile medications, help patients make full use of their [facility] benefits and educate patients about their conditions. This visit DOES NOT replace the your Annual Medicare Visit with the patient. The member was encouraged to schedule an AWV with their PCP to review our visit summary & recommendations. See below for teaching and instruction given regarding specific diagnoses. Member verbalized understanding to all. Members Preferred Language Kazakh Patient Currently Located in their home state of [place], YES DIAGNOSIS SHMGLBWA77.2 - Dependence on renal ccmidwsdC07.9 - Heart failure, ufkkliafqosA20.2 - Hypertensive heart and chronic kidney disease with heart failure and with stage 5 chronic kidney disease, or end stage renal kfvrgdxC60.9 - Bipolar disorder, ifzczdzsuyiU20.69 - Type 2 diabetes mellitus with other specified hyzlijssqfqsB25.22 - Type 2 diabetes mellitus with diabetic chronic kidney qflqolxE74.319 - Type 2 diabetes mellitus with unspecified diabetic retinopathy without macular uckpaI99.6 - End stage renal gwrlsssJ84.01 - Morbid (severe) obesity due to excess tembpbmyU57.41 - Body mass index [BMI] 40.0-44.9, xnqiyF92.3592 - Type 2 diabetes mellitus with proliferative diabetic retinopathy without macular edema, left eyeE26.1 - Secondary xwcndmruaalcehxxjaV18.81 - Secondary hyperparathyroidism of renal 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 (0 = No Pain, 10 = Worst Imaginable Pain): 6 PATIENT INTAKE Has the patient had an Annual Wellness Visit this calendar year?: AWV not completed/scheduled this year Could I have a member of our [facility] Team reach out and assist in scheduling your annual wellness visit with you and your PCP?: No Additional details for what patient plan is for AWV: patient will schedule appt MEDICATION RECONCILIATION Did you review the patient's prescription and non-prescription drugs, vitamins, herbal remedies, and other supplements, AND is the accompanying medication list documented in the medical record?: Yes GENERAL ASSESSMENT Feet: 5 Inches: 10 Pounds: 300 Patient BMI: 43.04 Dx: E66.01 - Morbid (severe) obesity due to excess calories Notes for E66.01: - BMI 43.04 is considered morbidly obese due to excess calories. - Comorbidities: HTN, HLD, DM - Continue with regular exercise. - Heart healthy, diabetic diet. - Follow up with PCPDISCUSSED: Dietary counseling was provided Morbid obesity confirmed on physical exam: Yes Dx: Z68.41 - Body mass index [BMI] 40.0-44.9, adult Notes for Z68.41: - BMI 43.04 - Continue with physical activity. - Low sodium, low sugar/carb, renal diet. - Follow up with PCP.DISCUSSED: Dietary counseling was provided Supplemental oxygen status: Room Air Supplemental Oxygen Needs: Does not need supplemental oxygen In general, would you say your quality of life is: Good How would you rate your pain on average? (0 = No Pain, 10 = Worst Imaginable Pain): 6 Do you exercise regularly?: Yes Physical activity level during a typical week: active during the week ACTION: Counseled patient on health benefits of regular physical activity SUBSTANCE USE - Smoking History The patient denies a history of tobacco use SCREENING - Depression Previously diagnosed with major depressive disorder?: Yes Is the patient currently on antidepressant medication?: Yes Little interest or pleasure in doing things?: Not at all (0) Feeling down, depressed, or hopeless?: Not at all (0) Trouble falling or staying asleep, or sleeping too much?: Several days (+1) Feeling tired or having little energy?: Not at all (0) Poor appetite or overeating?: Not at all (0) Feeling bad about yourself, or that you are a failure or have let yourself or your family down?: Not at all (0) Trouble concentrating on things, such as reading the newspaper or watching television?: Not at all (0) Moving or speaking so slowly that other people could have noticed? Or so fidgety or restless that you have been moving a lot more than usual?: Not at all (0) Thoughts that you would be better off , or thoughts of hurting yourself in some way?: Not at all (0) PHQ9 Score: 1 Previously recorded diagnosis of bipolar disorder, schizoaffective disorder, or schizophrenia?: Bipolar Disorder Dx: F31.9 - Bipolar disorder, unspecified Notes for F31.9: - "Bipolar depression" noted by Moreno Ray MD on 04/14/2022 - Currently taking: bupropion ER 150mg daily, citalopram 40mg daily - Take medication as prescribed - Follow up with PCP, mental health SCREENING - Fall Risk Have you fallen in the past year?: Yes Do you feel unsteady when standing or walking?: Yes Dx: R26.81 - Unsteadiness on feet Notes for R26.81: - Unsteadiness, recent fall - DME use includes: cane, walker, shower chair - Discussed fall risks and prevention measures: using DME - Follow up with PCP SCREENING - DME & Home Health Does the patient use any durable medical equpiment?: Yes Walker: Yes Shower Chair: Yes Cane: Yes Does the patient use home health, physical therapy or nursing home services?: No New orders, referrals, or any other assistance with DME or home health needed at this time?: No SCREENING: COLORECTAL CANCER COLORECTAL STATUS: NO KNOWN [place] Has the member had a recent colon cancer screening?: No Appropriate Screening Do you have a plan to get screened?: YES Notes on plan to get screened: patient plans to complete Cologuard kit GENERAL REVIEW OF SYSTEMS Lower Extremity Edema: Yes Leg Pain / Cramps with Walking: Yes Genitourinary Symptoms Notes: dialysis Numbness: Yes Balance Problems: Yes Joint Pain / Swelling: Yes Review of systems negative unless otherwise indicated above Review of systems negative unless otherwise indicated above: Yes CARDIOVASCULAR - Congestive Heart Failure Previously diagnosed with heart failure?: Yes Has the patient experienced any Heart Failure acute events in the last 12 months? (CHF Acute Event ED, observation, or inpatient stay): No Lower extremity edema on physical exam today?: Yes Taking spironolactone, eplerenone, or a diuretic? (exclude hydrochlorothiazide): No [NYHA Class III/IV HF] Does the patient develop SOB, fatigue, or palpitations when walking from one end of their house to the other?: Yes [AHA/ACC/HFSA Stage D End Stage Heart Failure] Does the patient have LIFE LIMITING heart failure symptoms with RECURRENT HOSPITALIZATIONS?: No Dx: I50.9 - Heart failure, unspecified Notes for I50.9: - Chronic HFpEF (EF 55-60%) noted by Moreno Ray MD on 04/14/2022 - Currently taking: nifedipine ER 30mg daily, carvedilol 25mg twice daily - Monitor for abnormal weight gain - Follow up with cardiologyDISCUSSED: Discuss taking electrical machinist weights and calling their doctors if weight increases > 2 lbs in 1 day or > 5 lbs in 5 days Dx: E26.1 - Secondary hyperaldosteronism Notes for E26.1: - Patient with hyperaldosteronism due to CHF. - Symptoms: occasional LE edema - Hyperaldosteronism and CHF co-managed with: no diuretic, low sodium diet, fluid restricition. - Discussed importance of maintaining BP < 140/90, adhering to medication and diet. - Follow up with cardiology CARDIOVASCULAR - Atherosclerosis & Arterial Disease [Intermittent Vascular Claudication] Does the patient experience muscle pain in the calves while walking that is relieved by standing?: No CARDIOVASCULAR - Venous Embolism & Thrombosis Previous diagnosis of venous embolism/thrombus that is CURRENTLY treated with an anticoagulant? No RENAL - Chronic Kidney Disease Two basic metabolic panels by > 3 months showing an eGFR < 90?: Yes Chronically dependent upon renal dialysis?: Yes Prescribed a phosphate binder (e.g. Sevelamer), a vitamin D analog (e.g. Calcitriol), or a calcimimetic agent (e.g. 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: Z99.2 - Dependence on renal dialysis Notes for Z99.2: - Dependence on renal dialysis - Patient has ESRD - Compliant with dialysis on Tuesday, Tuesday, and Tuesday - Follow up with nephrologyACTION: Confirm that the patient is compliant with dialysis Dx: N25.81 - Secondary hyperparathyroidism of renal origin Notes for N25.81: - Secondary hyperparathyroidism of renal origin - Managed with: Sevelamer 800mg three times daily, calcitriol 0.25mcg - 2 caps daily, Vitamin D2 weekly - Continue taking medication as prescribed - Follow up with nephrology ENDOCRINE - Diabetes (A1c + Eye + Kidney) Diabetes Diagnosis: Type 2 Most recent Hg A1c value: 6.9 Use insulin for management of Type 2 DM?: Yes Statin status: Already on a statin regimen Have a glucose monitor?: Yes The patient has the following medical complication secondary to diabetes: Hyperlipidemia: Yes The patient has the following medical complication secondary to diabetes: Retinopathy: Yes The patient has the following medical complication secondary to diabetes: Chronic Kidney Disease with GFR < 90: Yes Taking an an DESIRE inhibitor or ARB?: No Dx: E11.69 - Type 2 diabetes mellitus with other specified complication Notes for E11.69: - Patient with Type II DM with: HLD - Recent A1c: 6.9 (10/2023) - DM managed with: Levemir 33 units three times daily, Novolin R 11 units three times daily - HLD managed with: atorvastatin 40mg daily - Recommend diabetic diet - Exercise as tolerated - Discussed weight management, monitor for non-healing wounds/foot ulcers - Record blood glucose readings for appointments with PCP / endocrinology. - Discussed importance of yearly ophthalmology appointments for retinal evaluation. 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 - Recent lab results : no recent results - Managed with: atorvastatin 40mg daily - Recommend heart healthy diet, exercise routine as tolerated, continue with medication as prescribed. - Follow up with PCP for routine lipid panel and labs. Dx: E11.319 - Type 2 diabetes mellitus with unspecified diabetic retinopathy without macular edema Notes for E11.319: - Patient with Type II DM with: proliferative diabetic retinopathy - Recent A1c: 6.9 (10/2023) - DM managed with: Levemir 33 units three times daily, Novolin R 11 units three times daily - Diabetic retinopathy managed with: atropine 1% solution - 1 drop to left eye twice daily - Continue with regular ophthalmology exams - Follow up with PCP, endocrinologyACTION: Confirm follow up with posting specialist to prevent vision loss Dx: E11.22 - Type 2 diabetes mellitus with diabetic chronic kidney disease Notes for E11.22: - Patient with Type II DM with: ESRD - Recent A1c: 6.9 (10/2023) - DM managed with: Levemir 33 units three times daily, Novolin R 11 units three times daily - ESRD managed with: calcitriol 0.25mcg - 2 caps daily, Sevelamer 800mg three times daily, dialysis - Diabetic, renal diet - Continue to monitor blood sugar and blood pressure - Follow up with PCP, nephrology, endocrinology HEMATOLOGY - Thrombocytopenia/Senile Purpura Purpura on physical exam?: No Is the patient's most recent platelet value within the past 12 months less than 150k?: No RHEUMATOID ARTHRITIS Previously recorded diagnosis of rheumatoid arthritis?: No Prescribed a disease-modifying antirheumatic drug (DMARD)?: No NEUROLOGY - Stroke Previously recorded diagnosis of a cerebrovascular accident?: No COMMON DIAGNOSES The patient has a diagnosis of hyperlipidemia: Yes The patient has a diagnosis of hypertension: Yes The patient has a previously recorded diagnosis of insomnia: Yes Statin status: Already on a statin regimen Dx: E78.5 - Hyperlipidemia, unspecified Notes for E78.5: - Patient with hyperlipidemia. - Recent lab results : no recent results - Managed with: atorvastatin 40mg daily - Recommend heart healthy diet, exercise routine as tolerated, continue with medication as prescribed. - Follow up with PCP for routine lipid panel and labs. In addition to hypertension, the patient has the following condition(s): CHF + CKD Stage 5 Dx: I13.2 - Hypertensive heart and chronic kidney disease with heart failure and with stage 5 chronic kidney disease, or end stage renal disease Notes for I13.2: - Patient with HTN with CHF, ESRD - BP today: unable to check BP during visit - HTN and CKD managed with : Carvedilol 25mg twice daily, nifedipine 30mg daily - ESRD managed with : calcitriol 0.25mcg - 2 caps daily, Sevelamer 800mg three times daily, dialysis - Recommend renal, heart healthy diet. - Follow up with PCP, nephrology, cardiology Dx: G47.00 - Insomnia, unspecified Notes for G47.00: - Patient has insomnia. - Currently taking: trazodone 100mg at bedtime - Recommendations include: take medication as prescribed - Follow up with PCP. ADDITIONAL DIAGNOSES Dx: E11.3592 - Type 2 diabetes mellitus with proliferative diabetic retinopathy without macular edema, left eye Additional Diagnosis Notes: - Proliferative Diabetic Retinopathy was noted by Jones Chatterjee M.D on 06/23/2023 - Managed with: atropine 1% - 1 drop to left eye twice daily - Use drops as prescribed - Follow up with ophthalmology APPOINTMENT CPT CODE* Please indicate how this visit was conducted: Video Please select the video platform used during the visit: [employer] Video Room Please record the total amount of time you spent on this patient visit- Total time includes time spent on preparation, speaking with the patient, documentation, and post-visit coordination of care - This is limited to time spent ON THE DATE OF SERVICE (e.g. does not include time spent on days prior to or after the date of service) 75 or more minutes [facility] 2022-05-06 13:09:00 [id number] [place] [address] PATIENT NAME: ARNOLD KOENIG ADMIT DATE: 03/30/22 ACCOUNT NO: [id number] ROOM NO: Z.417 AGE: 57 REPORT TYPE: DISCHARGE SUMMARY REPORT SEX: M ADMITTING PHYSICIAN:Susan Sosa MD ATTENDING PHYSICIAN:Susan Sosa MD ADMISSION DATE: 03/30/2022 18:47:00 DISCHARGE DATE: 03/31/2022 17:09:00 DISCHARGE DIAGNOSES: 1. End-stage renal disease, on hemodialysis. 2. Morbid obesity. 3. Diabetes mellitus type 2. 4. Hypertensive kidney disease. DISCHARGE VITAL SIGNS: Temperature is 97.6, pulse of 79, respiratory rate of 18-20, blood pressure 130/90, O2 sat 98% on room air. LABORATORY DATA: Upon discharge, sodium is 141, potassium 4.4, chloride 107, bicarbonate 23, BUN of 51, creatinine 6.30. WBC is 7.8, hemoglobin 10.2, hematocrit 32.1, platelets of 182. INPATIENT CONSULTATIONS: Nephrology, Dr. Jesús Francisco DISCHARGE DISPOSITION: Home. DISCHARGE CONDITION: Stable. DISCHARGE INSTRUCTIONS: The patient is to follow up with me in about 2 weeks post-discharge. Total time spent on this discharge was greater than 30 minutes. Dictated By: Susan Sosa MD Date Dictated: 05/06/2022 13:09:33 Date Transcribed: 05/06/2022 22:23:41 /MICHAEL Receipt ID: [id number] Authenticated by Susan Sosa MD On 05/10/2022 12:31:28 PM at 1231 PATIENT NAME: ARNOLD KOENIG [facility] 2022-03-31 17:04:00 [facility] Nephrology Progress Note REPORT#:[id number] REPORT STATUS: Signed DATE:03/31/22 TIME: 1704 PATIENT: ARNOLD KOENIG UNIT #: [id number] [facility]GE: 56 SEX: M ATTEND: Susan Sosa MD ADM AUTHOR: Jesús Francisco MD * ALL edits or amendments must be made on the electronic/computer document * Subjective HPI: The patient is a 56-year-old male with a past medical history of insulin dependent diabetes mellitus,ESRD MWF who was transferred from [facility] for hypoglycemia and passing out and having missed dialysis last week tuesday. He claims he was busy with the holiday yesterday that he did not each much and took his insulin Comments: No acute event Review of Systems Constitutional: Denies: chills, fatigue, fever. Eyes: Denies: diplopia, eye pain. ENT: Denies: sore throat, throat pain. Cardiovascular: Denies: chest pain, BUSTAMANTE (dyspnea on exertion), edema. GI: Denies: abdominal pain, anorexia, constipation. : Denies: dysuria, flank pain. Neuro: Denies: confusion, dizziness. Psych: Denies: agitation, anxiety, confusion. Objective General VS/I O: Vital Signs: Date Time Temp Pulse Resp B/P B/P Pulse O2 O2 Flow FiO2 Mean Ox Delivery Rate 03/31 1235 100.4 81 16 164/70 101.1 96 03/31 1110 97.6 79 18 131/92 98 Room air 03/31 0748 97.7 74 18 194/62 98 Room air 03/31 0616 98.8 71 14 189/73 111.6 97 03/31 0408 97.9 75 18 163/72 102.3 96 03/31 0019 145/72 96 03/30 2312 98.8 79 20 182/90 120.8 98 Room air 03/30 1848 98.4 70 18 140/62 87.6 97 Room air 24 hour I O ending at 0700: 03/31 0700 03/30 1900 Intake Total 1500 Output Total Balance 1500 Intake, Oral 1500 PATIENT WEIGHT: Weight (lb): Weight (oz): Weight (kg): 132.727 Medications Active Meds + DC'd Last 24 Hrs Heparin Sodium (HEPARIN SODIUM) 1,000 UNITS ONCE ONE IV (DC) Lidocaine HCl (XYLOCAINE 1%) 2 ML DIALYSIS-DOSE BEFORE LOCAL Hydralazine HCl (APRESOLINE) 25 MG Q12HR PO Famotidine (PEPCID) 10 MG DAILY@2100 PO Heparin Sodium (HEPARIN SODIUM) 5,000 UNITS Q8HR SUBQ Insulin Human Lispro (HumaLOG) LOW DOSE SLIDING SCALE AC HS SUBQ Aspirin (ASPIRIN EC) 81 MG DAILY PO Acetaminophen (TYLENOL) 650 MG Q6H PRN PRN PO Acetaminophen/Codeine Phosphate (TYLENOL WITH CODEINE #3 (C-III)) 1 UDTAB Q6H PRN PRN PO Albuterol/Ipratropium (DUONEB 2.5-0.5 MG/3 ML SOLN) 3 ML RTQ4H PRN PRN INH Alprazolam (XANAX (C-IV)) 0.25 MG BID PRN PRN PO Dextrose/Water (DEXTROSE 50% IN WATER) 12.5 GM ASDIR PRN IV Dextrose/Water (DEXTROSE 50% IN WATER) 25 GM ASDIR PRN IV Docusate Sodium (COLACE) 100 MG BID PRN PRN PO Glucagon (GLUCAGON) 1 MG ASDIR PRN IM Hydralazine HCl (APRESOLINE) 10 MG Q6H PRN PRN IV Morphine Sulfate (morphine SULFATE (C-II)) 2 MG Q4H PRN PRN IV Ondansetron HCl (ZOFRAN) 4 MG Q6H PRN PRN IV Tramadol HCl (ULTRAM) 50 MG Q6H PRN PRN PO Physical Exam Head/eyes: atraumatic, clear cornea Cardiovascular: normal heart sounds, regular rate and rhythm Respiratory: aerating well, clear to auscultation Neuro/SAFETY DIRECTOR: alert, oriented X 3 Psychiatry: normal mood, normal judgment/insight Results Findings/Data: Laboratory Tests 03/31 03/31 03/31 03/30 03/30 1232 0618 0548 1857 1732 Chemistry Sodium (137 - 145 MMOL/L) 141 Potassium (3.5 - 5.1 MMOL/L) 4.4 Chloride (98 - 107 MMOL/L) 107 Carbon Dioxide (22 - 30 MMOL/L) 23 Anion Gap (14 - 24 MMOL/L) 15 BUN (9 - 20 MG/DL) 51 H Creatinine (0.66 - 1.25 MG/DL) 6.30 H Glomerular Filtr Rate 10 Glucose (74 - 106 MG/DL) 160 H POC Glucose (60 - 99 MG/DL) 263 H 145 H 232 H 204 H Calcium (8.4 - 10.2 MG/DL) 8.2 L Magnesium (1.6 - 2.3 MG/DL) 1.9 Total Bilirubin (0.2 - 1.3 MG/DL) 0.3 AST (17 - 59 UNITS/L) 19 ALT (0 - 49 UNITS/L) 15 Total Alk Phosphatase (38 - 126 UNITS/L) 100 Total Protein (6.2 - 7.6 G/DL) 6.3 Albumin (3.5 - 5.0 G/DL) 3.4 L Laboratory Tests 03/31 0548 Hematology WBC (3.8 - 9.8 K/MM3) 7.8 RBC (3.95 - 5.67 M/MM3) 3.41 L Hgb (12.4 - 16.7 G/DL) 10.2 L Hct (35.9 - 49.5 %) 32.1 L MCV (81.7 - 96.1 fL) 94 MCH (27.6 - 33.2 pg) 29.9 MCHC (32.9 - 35.5 %) 31.8 L RDW (12.1 - 15.2 %) 13.5 Plt Count (129 - 368 K/MM3) 182 MPV (7.4 - 10.4 fl) 10.5 H Neut % (Auto) (43 - 75 %) 66.5 Lymph % (Auto) (14 - 44 %) 20.0 [place] % (Auto) (4 - 13 %) 8.1 Eos % (Auto) (0 - 6 %) 4.7 Baso % (Auto) (0 - 2 %) 0.3 Neut # (Auto) (2.0 - 7.6 K/mm3) 5.20 Lymph # (Auto) (1.0 - 3.8 K/mm3) 1.56 [place] # (Auto) (0.1 - 0.8 K/mm3) 0.63 Eos # (Auto) (0.0 - 0.2 K/mm3) 0.37 H Baso # (Auto) (0.0 - 0.2 K/mm3) 0.02 Immature Gran % (0.0 - 2.0 %) 0.4 Nucleated RBC % (0 - 1.0 %) 0.0 Nucleated RBCs # (Man) (0.0 - 0.1 K/mm3) 0.00 Diagnosis, Assessment Plan Free Text A P: 1.DIABETES MELLITUS Type 2 poor controlled Management per primaary team 2.ESRD Was dialyzed today on a 2k/2.5Ca,blood flow 350,dialysate flow 500,can be discharged from the renal stand point 3.MORBID OBESITY BMI 43 Would benefit from weight loss,dietary lifestyle modification and routine exercise 4.HYPERTENSIVE KIDNEY DISEASE He does not know his home bp meds,would start on hydralazine 25mg po bid and continue iv hydralazine prn.Should resume his home bp meds on return home at 1911 RPT #:[id number] END OF REPORT [facility] 2022-03-30 09:08:00 [facility] Progress Note REPORT#:[id number] REPORT STATUS: Signed DATE:03/30/22 TIME: 907 PATIENT: ARNOLD KOENIG UNIT #: [id number] ROOM/BED: [address] : 67 AGE: 56 SEX: M ATTEND: Susan Sosa MD ADM AUTHOR: Jesús Francisco MD * ALL edits or amendments must be made on the electronic/computer document * Subjective HPI: The patient is a 56-year-old male with a past medical history of insulin dependent diabetes mellitus,ESRD MWF who was transferred from [facility] for hypoglycemia and passing out and having missed dialysis last week tuesday. He claims he was busy with the holiday yesterday that he did not each much and took his insulin Comments: complaining of back pain Review of Systems Constitutional: Denies: chills, fatigue, fever. Eyes: Denies: itching, diplopia, eye pain. Respiratory: Denies: productive cough (sputum), SOB. Cardiovascular: Denies: chest pain, BUSTAMANTE (dyspnea on exertion). GI: Denies: abdominal pain, anorexia. Neuro: Denies: confusion, numbness. Objective General VS/I O: Vital Signs: Date Time Temp Pulse Resp B/P B/P Pulse O2 O2 Flow FiO2 Mean Ox Delivery Rate 03/30 827 98.8 72 18 162/83 109.0 98 Room air 03/30 0440 98.4 71 18 132/56 81.1 97 Room air 03/30 0433 98.4 18 03/30 0012 98.6 83 18 131/61 84.1 98 Room air 03/290 97.2 82 20 177/68 100 Room air 03/29 1917 97.3 79 18 145/93 0.0 98 Room air 03/29 190 97.2 83 20 217/85 100 Room air 03/29 1842 97.9 81 18 154/68 96.7 98 03/29 1708 76 16 190/89 122 98 Room air 24 hour I O ending at 0700: 03/30 0700 03/29 190 Intake Total Output Total 1999 Balance -1999 Output, 1999 Hemodialysis Patient 132.727 kg Weight Weight Stated/Reported Measurement Method PATIENT WEIGHT: Weight (lb): Weight (oz): Weight (kg): 132.727 Medications Active Meds + DC'd Last 24 Hrs Famotidine (PEPCID) 20 MG BID PO (DC) Famotidine (PEPCID) 10 MG DAILY@2100 PO Heparin Sodium (HEPARIN SODIUM) 5,000 UNITS Q8HR SUBQ Insulin Human Lispro (HumaLOG) LOW DOSE SLIDING SCALE AC HS SUBQ Aspirin (ASPIRIN EC) 81 MG DAILY PO Acetaminophen (TYLENOL) 650 MG Q6H PRN PRN PO Acetaminophen/Codeine Phosphate (TYLENOL WITH CODEINE #3 (C-III)) 1 UDTAB Q6H PRN PRN PO Albuterol/Ipratropium (DUONEB 2.5-0.5 MG/3 ML SOLN) 3 ML RTQ4H PRN PRN INH Alprazolam (XANAX (C-IV)) 0.25 MG BID PRN PRN PO Dextrose/Water (DEXTROSE 50% IN WATER) 12.5 GM ASDIR PRN IV Dextrose/Water (DEXTROSE 50% IN WATER) 25 GM ASDIR PRN IV Docusate Sodium (COLACE) 100 MG BID PRN PRN PO Glucagon (GLUCAGON) 1 MG ASDIR PRN IM Hydralazine HCl (APRESOLINE) 10 MG Q6H PRN PRN IV Morphine Sulfate (morphine SULFATE (C-II)) 2 MG Q4H PRN PRN IV Ondansetron HCl (ZOFRAN) 4 MG Q6H PRN PRN IV Tramadol HCl (ULTRAM) 50 MG Q6H PRN PRN PO Heparin Sodium (HEPARIN SODIUM) DIRECTED ASDIR INJ (DC) Acetaminophen (TYLENOL) 650 MG Q4H PRN PRN PO Physical Exam General appearance: obese, alert, awake, oriented Head/eyes: atraumatic, clear cornea Cardiovascular: normal heart sounds, regular rate and rhythm Respiratory: aerating well, clear to auscultation Neuro/SAFETY DIRECTOR: alert, oriented X 3 Psychiatry: normal mood, normal judgment/insight Results Findings/Data: Laboratory Tests 03/30 1916 1800 1800 Chemistry Sodium (137 - 145 MMOL/L) 139 139 Potassium (3.5 - 5.1 MMOL/L) 4.2 5.4 H Chloride (98 - 107 MMOL/L) 106 106 Carbon Dioxide (22 - 30 MMOL/L) 25 21 L Anion Gap (14 - 24 MMOL/L) 12 L 17 BUN (9 - 20 MG/DL) 46 H 78 H Creatinine (0.66 - 1.25 MG/DL) 5.60 H 8.50 H Glomerular Filtr Rate 11 7 Glucose (74 - 106 MG/DL) 215 H 295 H POC Glucose (60 - 99 MG/DL) 259 H Mean Blood Glucose (70 - 110 MG/DL) 174 H Hemoglobin A1c (4.8 - 5.9 %) 7.7 H Calcium (8.4 - 10.2 MG/DL) 8.4 9.0 Magnesium (1.6 - 2.3 MG/DL) 2.0 Total Bilirubin (0.2 - 1.3 MG/DL) 0.3 0.3 AST (17 - 59 UNITS/L) 14 L 21 ALT (0 - 49 UNITS/L) 13 14 Total Alk Phosphatase (38 - 126 UNITS/L) 102 107 Total Protein (6.2 - 7.6 G/DL) 6.5 6.9 Albumin (3.5 - 5.0 G/DL) 3.5 4.0 Triglycerides (150 - 199 MG/DL) 79 L Cholesterol (<200 MG/DL) 110 LDL Cholesterol Measurd (0 - 99 MG/DL) 44 HDL Cholesterol (40 - 59 MG/DL) 48 Laboratory Tests 03/30 03/29 0611 1800 Hematology WBC (3.8 - 9.8 K/MM3) 8.4 10.2 H RBC (3.95 - 5.67 M/MM3) 3.48 L 3.69 L Hgb (12.4 - 16.7 G/DL) 10.4 L 11.1 L Hct (35.9 - 49.5 %) 32.4 L 34.4 L MCV (81.7 - 96.1 fL) 93 93 MCH (27.6 - 33.2 pg) 29.9 30.1 MCHC (32.9 - 35.5 %) 32.1 L 32.3 L RDW (12.1 - 15.2 %) 13.5 13.4 Plt Count (129 - 368 K/MM3) 180 212 MPV (7.4 - 10.4 fl) 10.5 H 10.3 Neut % (Auto) (43 - 75 %) 69.5 84.8 H Lymph % (Auto) (14 - 44 %) 19.7 9.2 L [place] % (Auto) (4 - 13 %) 7.3 5.0 Eos % (Auto) (0 - 6 %) 3.1 0.5 Baso % (Auto) (0 - 2 %) 0.2 0.2 Neut # (Auto) (2.0 - 7.6 K/mm3) 5.82 8.64 H Lymph # (Auto) (1.0 - 3.8 K/mm3) 1.65 0.94 L [place] # (Auto) (0.1 - 0.8 K/mm3) 0.61 0.51 Eos # (Auto) (0.0 - 0.2 K/mm3) 0.26 H 0.05 Baso # (Auto) (0.0 - 0.2 K/mm3) 0.02 0.02 Immature Gran % (0.0 - 2.0 %) 0.2 0.3 Nucleated RBC % (0 - 1.0 %) 0.0 0.0 Nucleated RBCs # (Man) (0.0 - 0.1 K/mm3) 0.00 0.00 Laboratory Tests 03/29 1800 Serology Hep Bs Antigen (NONREACTIVE) NEGATIVE Hep Bs Ab Concentration (mIU/mL) 3.6 Radiology data: Recent Impressions: RADIOLOGY - XR CHEST 1V 03/30 0556 Report Impression - Status: SIGNED Entered: 03/30/202291 IMPRESSION: 1. No radiographic evidence of acute cardiopulmonary process. Impression By: [email or web address] - Shlomo Beasley MD Diagnosis, Assessment Plan Free Text A P: 1.DIABETES MELLITUS WITH HYPOGLYCEMIA Management per primaary team 2.HYPERKALEMI RESOLVED Would dialyze on a low 2K bath 3.ESRD Was dialyzed yesterday on a 2k/2.5Ca,blood flow 350,dialysate flow 500,no indication for repeat HD today,can be discharged from the renal stand point 4.MORBID OBESITY BMI 43 Would benefit from weight loss,dietary lifestyle modification and routine exercise 5.HYPERTENSIVE KIDNEY DISEASE He does not know his home bp meds,would start on hydralazine 25mg po bid and continue iv hydralazine prn.Should resume his home bp meds on return home at 0913 RPT #:[id number] END OF REPORT [facility] 2022-03-29 20:33:00 [facility] ([facility]) DT PROGRESS NOTE REPORT#:[id number] REPORT STATUS: Signed DATE:03/29/22 TIME: 2032 PATIENT: ARNOLD KOENIG UNIT #: [id number] ROOM/BED: [address] : 67 AGE: 56 SEX: M ATTEND: Susan Sosa MD ADM AUTHOR: Susan Sosa MD * ALL edits or amendments must be made on the electronic/computer document * Progress Note Progress Note H P DICTATED [id number] SUSAN SOSA MD at 2034 RPT #:[id number] END OF REPORT [facility] 2022-03-29 20:33:00 [id number] [place] [address] PATIENT NAME: ARNOLD KOENIG ADMIT DATE: 03/30/22 ACCOUNT NO: [id number] ROOM NO: [facility] AGE: 57 REPORT TYPE: HISTORY AND PHYSICAL SEX: M ADMITTING PHYSICIAN:Susan Sosa MD ATTENDING PHYSICIAN:Susan Sosa MD ADMISSION DATE: 03/29/2022 17:05:00 CHIEF COMPLAINT: 1. Missed hemodialysis. 2. Hypoglycemia. HISTORY OF PRESENT ILLNESS: This is a 56-year-old male who was transferred from [facility] secondary to hypoglycemic episode and passing out. The patient states that he missed his dialysis last Tuesday and since then has been feeling sick and vomiting. The patient took his diabetes medicines, i.e., insulin, but was not able to eat due to the vomiting episode and was noted to be hypoglycemic. He was seen at the [place] [facility] and was transferred for hemodialysis as there was no dialysis available at the other institution. During my evaluation, the patient appears stable. He is getting dialyzed at this time. He states that he is not feeling sick anymore. ALLERGIES: NO KNOWN DRUG ALLERGIES. OBJECTIVE: VITAL SIGNS: Upon admission; temperature 97.2, pulse of 79, respiratory rate of 18-20, blood pressure 145/93, O2 sat 98% on room air. PAST MEDICAL HISTORY: Significant for: 1. Diabetes mellitus type 2. 2. Hypertension. 3. Anemia of chronic kidney disease. 4. End-stage renal disease, on hemodialysis. PAST SURGICAL HISTORY: Hemodialysis access. SOCIAL HISTORY: Denies any tobacco, alcohol, or drug use. OUTPATIENT MEDICATIONS: Reviewed, please review the medication reconciliation. REVIEW OF SYSTEMS: He denies any chest pain, no chest discomfort, no nausea, no vomiting. He does complain of mild shortness of breath. LABORATORY DATA: Upon admission; sodium 139, potassium 5.4, chloride 106, bicarbonate 21, BUN of 78, creatinine 8.50, glucose of 259. WBC 10.2, hemoglobin 11.1, hematocrit 34.2, platelets of 212. A1c is noted to be 7.7. PATIENT NAME: ARNOLD KOENIG PHYSICAL EXAMINATION: GENERAL: No apparent distress, appears comfortable. NEUROLOGIC: He is alert, awake, and oriented x3. NECK: Supple. No JVD. No carotid bruits. CARDIOVASCULAR: Regular rate and rhythm, S1, S2. LUNGS: No wheezing, no rhonchi at baseline, rales. ABDOMEN: Soft, nontender, nondistended, positive bowel sounds. EXTREMITIES: No clubbing, no cyanosis, no edema. Positive peripheral pulses. SKIN: Intact ADMISSION DIAGNOSES: 1. Hypoglycemic episode secondary to nausea and vomiting. This has resolved. The patient's blood sugars are stable at this time. 2. End-stage renal disease with missed hemodialysis and hyperkalemia. He is getting dialyzed at this time. We will continue to monitor. 3. Hypertension. 4. Diabetes mellitus type 2. 5. Hyperlipidemia. 6. Anemia of chronic kidney disease. PLAN: We will continue with the treatment plan as outlined by the geophysical engineer. Otherwise, if his labs appear stable and he has been cleared by nephrology, I will most likely discharge him home tomorrow morning. Total time spent in this admission is in excess of 70 minutes. Dictated By: Susan Sosa MD Date Dictated: 03/29/2022 20:33:36 Date Transcribed: 03/29/2022 20:59:50 /AFS Receipt ID: [id number] Authenticated by Susan Sosa MD On 04/07/2022 11:00:24 AM at 1100 PATIENT NAME: ARNOLD KOENIG [facility] 2022-03-29 18:37:00 [facility] Consultation Note REPORT#:[id number] REPORT STATUS: Signed DATE:03/29/22 TIME: 1836 PATIENT: ARNOLD KOENIG UNIT #: [id number] ROOM/BED: [address] : [birth year] AGE: 56 SEX: M ATTEND: Susan Sosa MD ADM AUTHOR: Jesús Francisco MD * ALL edits or amendments must be made on the electronic/computer document * History of Present Illness Requesting clinician: Dr Doug Escobar Reason for consult: Esrd HPI: The patient is a 56-year-old male with a past medical history of insulin dependent diabetes mellitus,ESRD MWF who was transferred from [facility] for hypoglycemia and passing out and having missed dialysis last week tuesday. He claims he was busy with the holiday yesterday that he did not each much and took his insulin History - Adult longitudinal Smoking status for patients 13 years old or older: Unknown,if ever smoked Allergies: Coded Allergies: No Known Allergies (03/29/22) Review of Systems Constitutional: Denies: chills, fatigue, fever. Skin: Denies: rash. Eyes: Denies: photophobia, swelling. Respiratory: Denies: BUSTAMANTE (dyspnea on exertion), SOB. Cardiovascular: Denies: chest pain, BUSTAMANTE (dyspnea on exertion), edema. GI: Denies: constipation, diarrhea. Neuro: Denies: confusion, lightheaded. Psych: Denies: agitation, anxiety. Objective General VS/I O: Vital Signs: Date Time Temp Pulse Resp B/P B/P Pulse O2 O2 Flow FiO2 Mean Ox Delivery Rate 03/29 1842 97.9 81 18 154/68 96.7 98 03/29 1708 76 16 190/89 122 98 Room air PATIENT WEIGHT: Weight (lb): Weight (oz): Weight (kg): 132.727 Medications: Active Meds + DC'd Last 24 Hrs Famotidine (PEPCID) 20 MG BID PO Heparin Sodium (HEPARIN SODIUM) 5,000 UNITS Q8HR SUBQ Insulin Human Lispro (HumaLOG) LOW DOSE SLIDING SCALE AC HS SUBQ Aspirin (ASPIRIN EC) 81 MG DAILY PO Acetaminophen (TYLENOL) 650 MG Q6H PRN PRN PO Acetaminophen/Codeine Phosphate (TYLENOL WITH CODEINE #3 (C-III)) 1 UDTAB Q6H PRN PRN PO Albuterol/Ipratropium (DUONEB 2.5-0.5 MG/3 ML SOLN) 3 ML RTQ4H PRN PRN INH Alprazolam (XANAX (C-IV)) 0.25 MG BID PRN PRN PO Dextrose/Water (DEXTROSE 50% IN WATER) 12.5 GM ASDIR PRN IV Dextrose/Water (DEXTROSE 50% IN WATER) 25 GM ASDIR PRN IV Docusate Sodium (COLACE) 100 MG BID PRN PRN PO Glucagon (GLUCAGON) 1 MG ASDIR PRN IM Hydralazine HCl (APRESOLINE) 10 MG Q6H PRN PRN IV Morphine Sulfate (morphine SULFATE (C-II)) 2 MG Q4H PRN PRN IV Ondansetron HCl (ZOFRAN) 4 MG Q6H PRN PRN IV Tramadol HCl (ULTRAM) 50 MG Q6H PRN PRN PO Heparin Sodium (HEPARIN SODIUM) DIRECTED ASDIR INJ Acetaminophen (TYLENOL) 650 MG Q4H PRN PRN PO Physical Exam General appearance: obese, alert, awake Head/eyes: atraumatic, clear cornea Cardiovascular: normal heart sounds, regular rate and rhythm Respiratory: aerating well, clear to auscultation Neuro/SAFETY DIRECTOR: alert, oriented X 3 Psychiatry: normal mood, normal judgment/insight Results Findings/Data: Laboratory Tests 03/29 03/29 1800 1800 Chemistry Sodium (137 - 145 MMOL/L) 139 Potassium (3.5 - 5.1 MMOL/L) 5.4 H Chloride (98 - 107 MMOL/L) 106 Carbon Dioxide (22 - 30 MMOL/L) 21 L Anion Gap (14 - 24 MMOL/L) 17 BUN (9 - 20 MG/DL) 78 H Creatinine (0.66 - 1.25 MG/DL) 8.50 H Glomerular Filtr Rate 7 Glucose (74 - 106 MG/DL) 295 H Mean Blood Glucose (70 - 110 MG/DL) 174 H Hemoglobin A1c (4.8 - 5.9 %) 7.7 H Calcium (8.4 - 10.2 MG/DL) 9.0 Total Bilirubin (0.2 - 1.3 MG/DL) 0.3 AST (17 - 59 UNITS/L) 21 ALT (0 - 49 UNITS/L) 14 Total Alk Phosphatase (38 - 126 UNITS/L) 107 Total Protein (6.2 - 7.6 G/DL) 6.9 Albumin (3.5 - 5.0 G/DL) 4.0 Triglycerides (150 - 199 MG/DL) 79 L Cholesterol (<200 MG/DL) 110 LDL Cholesterol Measurd (0 - 99 MG/DL) 44 HDL Cholesterol (40 - 59 MG/DL) 48 Laboratory Tests 03/29 1800 Hematology WBC (3.8 - 9.8 K/MM3) 10.2 H RBC (3.95 - 5.67 M/MM3) 3.69 L Hgb (12.4 - 16.7 G/DL) 11.1 L Hct (35.9 - 49.5 %) 34.4 L MCV (81.7 - 96.1 fL) 93 MCH (27.6 - 33.2 pg) 30.1 MCHC (32.9 - 35.5 %) 32.3 L RDW (12.1 - 15.2 %) 13.4 Plt Count (129 - 368 K/MM3) 212 MPV (7.4 - 10.4 fl) 10.3 Neut % (Auto) (43 - 75 %) 84.8 H Lymph % (Auto) (14 - 44 %) 9.2 L [place] % (Auto) (4 - 13 %) 5.0 Eos % (Auto) (0 - 6 %) 0.5 Baso % (Auto) (0 - 2 %) 0.2 Neut # (Auto) (2.0 - 7.6 K/mm3) 8.64 H Lymph # (Auto) (1.0 - 3.8 K/mm3) 0.94 L [place] # (Auto) (0.1 - 0.8 K/mm3) 0.51 Eos # (Auto) (0.0 - 0.2 K/mm3) 0.05 Baso # (Auto) (0.0 - 0.2 K/mm3) 0.02 Immature Gran % (0.0 - 2.0 %) 0.3 Nucleated RBC % (0 - 1.0 %) 0.0 Nucleated RBCs # (Man) (0.0 - 0.1 K/mm3) 0.00 Diagnosis, Assessment Plan Free Text DxA P Notes Free text DxA P notes: 1.DIABETES MELLITUS WITH HYPOGLYCEMIA Management per primaary team 2.HYPERKALEMIA Would dialyze on a low 2K bath 3.ESRD Would dialyze today 2k/2.5Ca,blood flow 350,dialysate flow 500,currently on HD in the room 4.MORBID OBESITY BMI 43 Would benefit from weight loss,dietary lifestyle modification and routine exercise 5.HYPERTENSIVE KIDNEY DISEASE would hd and place on iv hydralazine prn at 2119 RPT #:[id number] END OF REPORT [facility] 2022-03-29 17:16:00 [facility] ([facility]) EMERGENCY PROVIDER REPORT REPORT#:[id number] REPORT STATUS: Signed DATE:03/29/22 TIME: 1716 PATIENT: ARNOLD KOENIG UNIT #: [id number] [facility] AGE: 56 SEX: M PCP PHYS: Undefined Provider SERVICE AUTHOR: Shawn Camacho DO LOCATION: [facility] * ALL edits or amendments must be made on the electronic/computer document * HPI-General Illness Free Text HPI Notes Free Text HPI Notes Patient is a 56-year-old male with a past medical history of diabetes, end-stage renal disease receiving hemodialysis Tuesday presenting with complaints of altered mental status hypoglycemia and having missed dialysis. Of note, [facility] Patient was noted to have low blood sugar measuring in the low 50s and had acutely lost consciousness. The patient was taken to [facility] ER where he had been given oral glucose and subsequent glucoses have been within normal range. Patient was noted to have missed dialysis on the previous Tuesday and was unable to have his hemodialysis session at the outside facility. Potassium was obtained at outside facility revealing a level of 5.2. The patient was subsequently transferred to this facility for continued management. Upon arrival, patient notes feeling improved since his initial ER arrival. General Confirmed Patient Yes Patient Type New patient Initial Greet Date/Time 03/29/221706 Presentation Chief Complaint Low blood sugar Hx Obtained From Patient Sudden in Onset? No Onset Occurred Today Symptom Duration Constant Progression since Onset Constant Caused by No trauma by history Location Head Quality Burning Radiation No: Does not radiate. Severity: Onset Mild Severity: Current Mild Review of Systems Free Text ROS Notes Free Text ROS Notes Contitutional: Denies chills, fever ENT: Denies nasal congestion GI: Denies abdominal pain : Denies dysuria, urinary frequency Skin: Denies rash Neurologic: Denies headache Eyes: Denies redness Respiratory: Denies cough Cardiovascular: Denies chest pain MSK: Denies back pain Heme: Denies bruising Past Medical History - Adult Stated Complaint HYPERKALEMIA, FLUID OVERLOAD, HYPOGLYCEMIA,AMS Allergies Coded Allergies: No Known Allergies (03/29/22) Physical Exam Vital Signs Vital Signs First Documented: Result Date Time Pulse Ox 98 03/29 1708 B/P 190/89 03/29 1708 B/P Mean 122 03/29 1708 O2 Delivery Room air 03/29 1708 Pulse 76 03/29 1708 Resp 16 03/29 1708 Last Documented: Result Date Time Pulse Ox 98 03/29 1708 B/P 190/89 03/29 1708 B/P Mean 122 03/29 1708 O2 Delivery Room air 03/29 1708 Pulse 76 03/29 1708 Resp 16 03/29 170 Review of Vital Signs Reviewed Free Text PE Notes Free Text PE Notes General: Well developed, well appearing Head: Normocephalic, atraumatic EENT: PERRL, CAMACHO Neck: Supple Chest: Regular rate and rhythm; left chest wall dialysis catheter Lungs: Clear to ascultation bilaterally Abd: Soft, nontender Skin: No visible rash Neuro: Awake, alert, moving all extremities MSK: No bony deformities; left upper extremity AV fistula with palpable thrill and bruit Interpretation Diagnostics Point of Care Testing Pulse Oximetry Pulse Ox % 98 On: Room air Interpretation Interpreted by me, Pulse oximetry normal Time 1708 Re-Evaluation MDM ED Course Medication(s) Ordered Medication(s) Ordered: Central Nervous System Agents Sig/Tahmina Start time Last Medication Dose Route Stop Time Status Admin Acetaminophen 650 MG Q4H PRN PRN 03/29 1720 AC PO 03/30 1617 Differential Diagnosis Differential Diagnosis Allergies, Abscess, Asthma, Contusion, Depression, Diabetes mellitus, Drug dependence, Fracture, Syncope, Tonsillitis: acute, Upper resp infection, Urinary tract infection Patient Discharge Departure Vital Signs/Condition Vital Signs First Documented: Result Date Time Pulse Ox 98 03/29 1708 B/P 190/89 03/29 1708 B/P Mean 122 03/29 1708 O2 Delivery Room air 03/29 1708 Pulse 76 03/29 1708 Resp 16 03/29 1708 Last Documented: Result Date Time Pulse Ox 98 03/29 1708 B/P 190/89 03/29 1708 B/P Mean 122 03/29 1708 O2 Delivery Room air 03/29 1708 Pulse 76 03/29 1708 Resp 16 03/29 1708 All vital signs available at the time of this entry have been reviewed. Clinical Impression Clinical Impression Primary Impression: ESRD (end stage renal disease) Secondary Impressions: Hypoglycemia Disposition Decision Admit Admit Physician Name Susan Sosa MD Admit Physician Hospitalist Request Time 1716 Request Date 03/29/22 )( Admission Accepts Yes )( Accepted Time 171 )( Accepted Date 03/29/22 Call Information will see patient at 1820 RPT #[id number] END OF REPORT [facility]
[2023-11-21] MEDS ORDERED: MORPHINE 2 MG/ML SYR IV PRN (10:17)
--- NOTE | 2023-11-21 17:05 | P.PN ---
(S) Pt seen on HD, tolerating session but reports some nausea earlier, reduced appetite. Lt foot pain better but not resolved, wrapped extensively .vitals reviewed in the EMR General: Alert, In no apparent distress, Oriented x3 HEENT: Atraumatic, Normocephalic, Other (vision impairment) Neck: Supple, Other (Lt IJ TDC) Respiratory: Clear to auscultation bilaterally, Normal air movement Cardiovascular: Regular rate/rhythm, Edema noted Gastrointestinal: Soft and benign, Non-distended, No guarding Musculoskeletal: Swelling, Other (Rt UE AVF with bruit) Integumentary: Other (Lt posterolateral site large skin tear, localized swelling without drainage or odor) Neurological: Normal speech, Normal tone, Normal affect Laboratory Data (last 24 hrs) Reviewed in the EMR Conclusions/Impression: A/P) 1. ESRD 2nd to chronic conditions, on iHD MWF. HD today for clearance and UF 2. Azotemia 2nd to renal failure -will clear with HD 3. Chronic HTN with CKD -elevated BP on HD, add ARB. Cont coreg. F/u post HD BP 4. Left foot soft tissue infection with necrosis, leukocytosis on admission - will f/u IM reccs for Abx consolidation and duration 5. Anemia 2nd to CKD, inflammation, other -resume TRINA as OP, monitor closely 6. Hypoalbuminemia -albumin level has dropped notably with infection/illness, cont protein supplementation
[2023-11-21] MEDS ORDERED: VANCOMYCIN 1 GM in NA CHLORIDE 0.9% 250 ML IVPB SCH (18:00)
[2023-11-21] MEDS: LOSARTAN POTASSIUM 50 MG TABLET PO SCH (21:54)
[2023-11-21 23:31] VITALS: O2SAT 96
[2023-11-21 23:54] VITALS: BMI 44.6
[2023-11-22 06:03] LABS: Absolute Basophils 0.1 K/uL (0-0.5); Absolute Eosinophils 0.4 K/uL (0-0.5); Absolute Lymphocytes (CBC) 0.9 K/uL (0.7-4.9); Absolute Monocytes 0.8 K/uL (0.1-1.3); Absolute Neutrophil 8.6 K/uL (1.8-8.0); Basophils % 0.6 % (0-1.3); Eosinophils % 3.3 % (0-4.4); Hematocrit 31.7 % (39.6-49.0); Hemoglobin 9.9 g/dL (13.6-17.9); Lymphocytes % 8.5 % (15.3-44.8); MCH 29.9 pg (27.0-35.0); MCHC 31.4 g/dL (32.0-36.0); MCV 95.3 fL (80-100); MPV 7.7 fL (7.6-11.3); Monocytes % 7.7 % (3.3-12.3); Neutrophils % 79.9 % (41.7-73.7); Nucleated Red Blood Cells % 0.1 % (0-0); Platelets 363 thou/uL (152-406); RBC Red Blood Cell Count 3.32 M/uL (4.33-5.43); Red Cell Distribution Width 14.3 % (12.1-15.2)
[2023-11-22 06:45] LABS: AST/SGOT 11 U/L (15-37); Albumin 2.4 g/dL (3.4-5.0); Albumin/Globulin Ratio 0.5 (1.1-1.8); Alkaline Phosphatase 135 U/L (45-117); Anion Gap 13.4 mEq/L (5.0-15.0); BUN Blood Urea Nitrogen 36 mg/dL (7-18); Bicarbonate 27 mEq/L (21-32); Bilirubin Total 0.3 mg/dL (0.2-1.0); Globulin 4.8 g/dL (2.3-3.5); Glomerular Filtration Rate 6 ml/min (=/>90); Glucose Level 134 mg/dL (74-106); Magnesium 2.2 mg/dL (1.6-2.4); Potassium 4.4 mEq/L (3.5-5.1); Protein, Total 7.2 g/dL (6.4-8.2); Sodium Level 135 mEq/L (136-145)
[2023-11-22 06:50] LABS: ALT/SGPT < 14 U/L (16-61)
[2023-11-22 06:51] LABS: Band Neutrophils 3 % (0-1); Differential Total Cells Count 100; Eosinophils 9 % (0-3); Lymphocytes 10 % (15-42); Metamyelocytes 2 % (0-0); Monocytes 9 % (0-10); Segmented Neutrophils 67 % (40-80)
[2023-11-22 06:52] LABS: Blood Morphology Comment NOT SEEN (NOT SEEN); Platelet Estimate ADEQ
--- NOTE | 2023-11-22 09:17 | P.DS ---
Admission Date: 11/17/23 Discharge Date: 11/22/23 Disposition: ROUTINE DISCHARGE Discharge Condition: FAIR Reason for Admission: Left foot abscess Hospital Course: Diagnosis Necrotic left foot wound infection, now s/p I&D (11/18) ESRD on HD - MWF Hyponatremia Chronic anemia IDDM2 chronic diastolic CHF hypertension Depression/anxiety Chronic back pain Patient presented with worsening foot pain, swelling found to be secondary to necrotic left foot wound infection. He was evaluated by Dr. Quintero, general surgeon, and underwent I&D on 11/18. During surgery he was found to have a small puncture wound with some deep necrosis and breakdown of tissue around site. Patient received empiric zosyn and vanc while hospitalized and is to complete a total of 14 days of vancomycin and oral Levaquin. Patient was feeling better, afebrile > 24 hours, leukocytosis resolved, and deemed stable for discharge. Follow up with Dr. Quintero in wound healing center in ~1 week for continued management / wound care. Discussed with patient need to be non-weightbearing of lower left extremity until otherwise instructed by Dr. Quintero. Patient home diabetic regimen-regular insulin and Levemir insulin resumed on gudelia. Patient states her blood sugar is fairly under good control with his home regimen. Patient takes Levemir on 3 times a day. He has been told he needs to take his Levemir insulin twice a day instead of 3 times a day and to follow-up with his PCP Dr. Russo for adjustment in his insulin regimen. Vital Signs/Physical Exam: Temp Pulse Resp BP Pulse Ox 96.9 F 55 12 148/46 H 95 11/22/23 08:00 11/22/23 08:00 11/22/23 08:00 11/22/23 08:00 11/22/23 08:00 General: Alert, In no apparent distress, Oriented x3, Obese HEENT: Mucous membr. moist/pink Neck: Supple, JVD not distended Respiratory: Clear to auscultation bilaterally, Normal air movement Cardiovascular: No edema, Regular rate/rhythm, Normal S1 S2 Gastrointestinal: Normal bowel sounds, Soft and benign, Non-distended Musculoskeletal: No swelling Integumentary: No cyanosis, Other (Left foot with clean dressing.) Neurological: Normal strength at 5/5 x4 extr Laboratory Data at Discharge: WBC 10.80 thou/uL (4.3-10.9) 11/22/23 05:45 Hgb 9.9 g/dL (13.6-17.9) L 11/22/23 05:45 Hct 31.7 % (39.6-49.0) L 11/22/23 05:45 Plt Count 363 thou/uL (152-406) 11/22/23 05:45 APTT 28.0 SECONDS (24.3-36.9) 11/18/23 09:53 Sodium 135 mEq/L (136-145) L 11/22/23 05:45 Potassium 4.4 mEq/L (3.5-5.1) 11/22/23 05:45 BUN 36 mg/dL (7-18) H 11/22/23 05:45 Creatinine 8.93 mg/dL (0.70-1.30) H 11/22/23 05:45 Glucose 134 mg/dL (74-106) H 11/22/23 05:45 Phosphorus 6.7 mg/dL (2.5-4.9) H 11/18/23 09:53 Magnesium 2.2 mg/dL (1.6-2.4) 11/22/23 05:45 Total Bilirubin 0.3 mg/dL (0.2-1.0) 11/22/23 05:45 AST 11 U/L (15-37) L 11/22/23 05:45 ALT < 14 U/L (16-61) L 11/22/23 05:45 Alkaline Phosphatase 135 U/L (45-117) H 11/22/23 05:45 Home Medications: Gabapentin 300 mg PO DAILY 11/15/19 Insulin Detemir [Levemir Flextouch] 33 units SQ BID 11/15/19 Calcitrol [Rocaltrol*] 0.5 mcg PO DAILY #60 cap 11/19/19 carvediloL [Coreg*] 25 mg PO BID #60 tab 11/19/19 Aspirin [Vazalore] 1 tab PO DAILY 12/25/20 Atorvastatin Calcium 1 tab PO BEDTIME 12/25/20 Insulin -Regular Human [Novolin -R*] 11 units SQ TIDWM 12/25/20 Trazodone [Desyrel*] 100 mg PO BEDTIME 12/25/20 Heparin [Heparin 1,000 units/mL *] 3,000 unit IV EVERY HD vial 01/20/21 Heparin [Heparin 1,000 units/mL *] 6,000 unit IV EVERY HD PRN vial 01/20/21 Bupropion HCl [Budeprion Xl] 300 mg PO DAILY 11/17/23 Citalopram [Celexa*] 11/17/23 Docusate [Colace Cap*] 100 mg PO DAILY 11/17/23 Ferrous Gluconate 324 mg PO BID 11/17/23 Mecobalamin [B12 Active] 1,000 mcg PO DAILY 11/17/23 Epoetin [Procrit*] 10,000 unit IV EVERY HD vial 11/22/23 Losartan Potassium [Cozaar*] 50 mg PO BEDTIME #30 tab 11/22/23 Oxycodone HCl/Acetaminophen [Percocet 5/325 Tab*] 1 tab PO Q4H PRN #15 tab 11/22/23 Sevelamer Carbonate [Renvela*] 2,400 mg PO TIDWM #270 tab 11/22/23 Vancomycin/0.9 % Sod Chloride [Vanco 1 Gram/250 ml-0.9% NaCl] 1 gm IV AFTER EACH DIALYSIS 14 Days #6 bag 11/22/23 levoFLOXacin [Levaquin] 500 mg PO Q48H #7 tab 11/22/23 New Medications: Losartan Potassium [Cozaar*] 50 mg PO BEDTIME #30 tab levoFLOXacin [Levaquin] 500 mg PO Q48H #7 tab Oxycodone HCl/Acetaminophen [Percocet 5/325 Tab*] 1 tab PO Q4H PRN #15 tab PRN Reason: Pain Scale 5-7 (Moderate) Sevelamer Carbonate [Renvela*] 2,400 mg PO TIDWM #270 tab Vancomycin/0.9 % Sod Chloride [Vanco 1 Gram/250 ml-0.9% NaCl] 1 gm IV AFTER EACH DIALYSIS 14 Days #6 bag Physician Discharge Instructions: Physician discharge instructions: Patient presented with worsening foot pain, swelling found to be secondary to necrotic left foot wound infection. He was evaluated by Dr. Quintero, general surgeon, and underwent I&D on 11/18. During surgery he was found to have asmall puncture wound with some deep necrosis and breakdown of tissue around site. Patient received empiric zosyn and vanc while hospitalized and is to complete __ more days of __ on discharge. Patient was feeling better, afebrile > 24 hours, leukocytosis resolved, and was deemed stable for discharge. Follow up with Dr. Quintero in wound healing center in ~1 week for continued management / wound care. Discussed with patient need to be non-weightbearing of lower left extremity until otherwise instructed by Dr. Quintero. Medications: Follow up: PCP 3-[address] Quintero in ~1 week please call to schedule / confirm appointments Daily dressing changes: Remove all packing irrigate wound with sterile saline, repacked with quarter inch plain packing soaked in Vashe, cover with dry gauze wrap with Kerlix Hai and elevate. Wheelchair ordered from [facility] and delivered to bedside on 11/21/23: [facility] [phone] Diet: Renal Activity: Non-weight bearing Followup: Zeke Russo DO [Primary Care Provider] - Keenan Quintero MD [ACTIVE - CAN ADMIT] - 2-3 Days Physician Review: Patient Assessed, Agree with Above Assessment and Plan Time spent managing pt's care (in minutes): 38
[2023-11-22] MEDS: VANCOMYCIN 1 GM in NA CHLORIDE 0.9% 250 ML IVPB SCH (10:31)
[2023-11-22] MEDS: levoFLOXacin 750 MG TAB PO ONE (10:35)
[2023-11-22 12:30] VITALS: BP 137/64; TEMP 99.4
== END 2023-11-22 12:47 | disposition home or self-care (01) | DRG 264 ==
LOC: ER 15:14 → ERHOLD 18:38 → 2ND 20:47
PROVIDERS: ADMIT Internal Medicine Sleep Medicine; ATTEND Internal Medicine
PROC: 5A1D70Z Performance of Urinary Filtration, Intermittent, Less than 6 Hours Per Day (ICD-10-PCS; principal; 2023-11-18)
PROC: 0JBR0ZZ Excision of Left Foot Subcutaneous Tissue and Fascia, Open Approach (ICD-10-PCS; 2023-11-19)
DX: E11.52 Type 2 diabetes mellitus with diabetic peripheral angiopathy with gangrene (principal); N18.6 End stage renal disease; L02.612 Cutaneous abscess of left foot; I50.32 Chronic diastolic (congestive) heart failure; I13.2 Hypertensive heart and chronic kidney disease with heart failure and with stage 5 chronic kidney disease, or end stage renal disease; Z68.42 Body mass index [BMI] 45.0-49.9, adult; L03.116 Cellulitis of left lower limb; E87.1 Hypo-osmolality and hyponatremia; E66.01 Morbid (severe) obesity due to excess calories; E11.22 Type 2 diabetes mellitus with diabetic chronic kidney disease; D63.1 Anemia in chronic kidney disease; D63.8 Anemia in other chronic diseases classified elsewhere; F32.A Depression, unspecified; F41.9 Anxiety disorder, unspecified; E88.09 Other disorders of plasma-protein metabolism, not elsewhere classified; H54.8 Legal blindness, as defined in USA; G89.29 Other chronic pain; M54.9 Dorsalgia, unspecified; Z99.2 Dependence on renal dialysis; Z79.4 Long term (current) use of insulin; Z79.82 Long term (current) use of aspirin; Z79.02 Long term (current) use of antithrombotics/antiplatelets; Z79.899 Other long term (current) drug therapy
CPT/HCPCS: 36415; 80053; 80202; 82947; 83605; 83735; 83880; 84100; 85025; 85730; 86704; 86706; 87040; 87070; 87075; 87205; 87340; 88304; 90935; 93971; 96374; 97161; 97530; 97542; 99284; J1644; J2250; J2543; J2704; J3010; J7040; J7050; Q4081

== ENCOUNTER 2024-01-15 14:10 | Inpatient (IN) | payer MEDICARE ==
--- OUTSIDE RECORDS SUMMARY | 2024-01-15 14:15 | XMS REPORT | Continuity of Care Document ---
Author Name Unknown Address [address] [facility] [address] [place] [address] [facility] thconnect Address [address] [facility] [place] [address] Care Team Providers Care Bridges Supervisor Name Role Phone [place] Martha [facility] MEDICAL Primary Car e Physician Unavailable Koby Low Attending Clinician Unavailable DUYEN JUDD Attending Clinician Unavailable DUYEN JUDD Attending Clinician Unavailable Duyen Judd NP Attending Clinician [phone] Elbert --Kierra Attending Clinician [phone] Doctor Unassigned, [place] Attending Clinician U navailable CATALINA PRECIADO Attending Clinician Unavailable Catalina Preciado MD Attending Clinician [phone] Tommy Sosa Attending Clinician Unavailable Glory Muñiz RN Attending Clinician Unavailable Only, Ang Db Test Attending Clinician UnavailDiana Mustafa Attending Clinician [phone] HAYLIE RAMÍREZ Attending Clinician Unavailable Rebecca Hubbard DO Attending Clinician [phone] Haylie Ramírez MD Attending Clinician [phone] Koby Low Admitting Clinician Unavailable Zeke Russo Admitting Clinician Unavailable DUYEN JUDD Admitting Clinician Unavailable Tommy Sosa Admitting Clinician Unavailable HAYLIE RAMÍREZ Admitting Clinician Unavailable Haylie Ramírez MD Admitting Clinician [phone] Payers Payer Name Policy Type Policy Number Effective Date Expirati on Date Source [facility] [id number] 2022 00:00:00 [employer] MEDICARE ADVANTAGE PLAN DFGIANNA 2023 00:00:00 [employer] [facility] [facility] [facility] [place] 2022 00:00:00 Problems Condition Name Condition Details Condition Category Status Onset Date Resolution Date Last Treatment Date Treating Clinician Comments Source Morbid obesity with body mass index of 40.0-49.9 Morbid obesity with body mass index of 40.0-49.9 Disease Active 10-22 00:00: 00 [facility] Acute on chronic renal insufficie ncy Acute on chronic renal insufficie ncy Disease Active 10-22 00:00: 00 [facility] Alcohol dependence Alcohol dependence Disease Active 10-22 00:00: 00 [facility] Benign essential hypertensi on Benign essential hypertensi on Disease Active 10-22 00:00: 00 [facility] Cannabis abuse Cannabis abuse Disease Active 10-22 00:00: 00 [facility] Cocaine abuse Cocaine abuse Disease Active 10-22 00:00: 00 [facility] Congestive heart failure Congestive heart failure Disease Active 10-22 00:00: 00 [facility] Depressive disorder Depressive disorder Disease Active 10-22 00:00: 00 [facility] Diabetes mellitus Diabetes mellitus Disease Active 10-22 00:00: 00 [facility] Legal blindness [place] Legal blindness [place] Disease Active 10-22 00:00: 00 Overview: Formattin g of this note might be different from the original. Mar 12, 2020 Entered By: DON MARSH Comment: per 03/11/20 EYE NOTE [facility] Morbid obesity with body mass index of 40.0-49.9 Morbid obesity with body mass index of 40.0-49.9 Disease Active - 00:00: 00 [facility] Allergies, Adverse Reactions, Alerts Allergy Name Allergy Type Status Severity Reaction(s) Onset Date Inactive Date Treating Clinician Comments Source No Known Allergie s DA Active U 8-11 00:00: 00 [facility] No Known Allergie s DA Active U 2021-04 2-26 00:00: 00 [facility] NO KNOWN ALLERGIE S Drug Class Active [facility] Social History Social Habit Start Date Stop Date Quantity Comments Source [facility] to SARS-CoV-2 (event) 2022-06-24 00:00:00 2022-07-04 11:43:00 Not sure [facility] Sex assigned at 1965 00:00:00 1965 00:00:00 [facility] Smoking Status Start Date Stop Date Source Tobacco smoking consumption unknown [facility] Medications Ordered Medication Name Filled Medication Name [...] Soft Tissue, Duration of Therapy: Once (ED) [facility] ketorolac (TORADOL) injection 30 mg 11-10 16:30: 00 11-10 15:44 :00 No 30mg 30 mg, Slow IV Push, ONCE, 1 dose, On Tue11/11/23 at 1130, Routine [facility] traMADoL 50 mg tablet 11-10 00:00: 00 11-18 04:59 :00 Yes [id number] 50mg Take 1 tablet by mouth every 6 (six) hours as needed for Pain (scale 7-10) for up to 7 days. Indication s: acute pain [facility] sulfamethox azole-trime thoprim 800-160 mg per tablet 11-10 00:00: 00 11-18 04:59 :00 Yes [id number] 1{tbl} Take 1 tablet by mouth every 12 (twelve) hours for 7 days. [facility] cephALEXin 500 mg capsule 11-10 00:00: 00 11-18 04:59 :00 Yes [id number] 1000mg Take 2 capsules by mouth in the morning and 2 capsules in the evening. Do all this for 7 days. [facility] calcitrioL 0.5 mcg capsule 10-24 00:00: 00 11-24 04:59 :00 No [id number] .5ug Take 1 capsule by mouth daily for 30 days. [facility] amLODIPine 5 mg tablet 10-24 00:00: 00 11-24 04:59 :00 No [id number] 5mg Take 1 tablet by mouth daily for 30 days. [facility] Cholecalcif jake, Vitamin D3, (VITAMIN D3) 125 mcg (5,000 unit) tablet 10-23 23:01: 32 Yes 5000U Take 5,000 Units by mouth daily. [facility] insulin detemir U-100 (LEVEMIR U-100 INSULIN) 100 unit/mL injection 10-23 23:01: 32 Yes 33U inject 33 Units under the skin 2 (two) times daily with meals. [facility] NOVOLOG U-100 INSULIN ASPART SC 10-23 23:01: 32 Yes 11U inject 11 Units under the skin 2 (two) times daily with meals. [facility] ARIPiprazol e (ABILIFY) 5 mg tablet 10-23 23:01: 31 Yes 5mg Take 5 mg by mouth daily. [facility] aspirin 81 mg chewable tablet 10-23 23:01: 31 Yes 81mg Take 81 mg by mouth daily. [facility] buPROPion XL 300 mg 24 hr tablet 10-23 23:01: 31 Yes 300mg Take 300 mg by mouth daily. [facility] vitamin B-12 1,000 mcg tablet 10-23 23:01: 31 Yes 1000ug Take 1,000 mcg by mouth daily. [facility] ferrous gluconate 324 mg (37.5 mg iron) tablet 10-23 23:01: 31 Yes 324mg Take 324 mg by mouth 2 (two) times daily. [facility] furosemide 80 mg tablet 10-23 23:01: 31 Yes 80mg Take 80 mg by mouth 2 (two) times daily. [facility] ergocalcife rol, vitamin d2, 1,250 mcg (50,000 unit) capsule 10-23 20:02: 43 10-23 00:00 :00 No [id number] Take 50,000 Units by mouth weekly. [facility] Cholecalcif jake, Vitamin D3, (VITAMIN D3) 125 mcg (5,000 unit) tablet 10-23 18:01: 32 Yes 5000U Take 5,000 Units by mouth daily. [facility] insulin detemir U-100 (LEVEMIR U-100 INSULIN) 100 unit/mL injection 10-23 18:01: 32 Yes 33U inject 33 Units under the skin 2 (two) times daily with meals. [facility] NOVOLOG U-100 INSULIN ASPART SC 10-23 18:01: 32 Yes 11U inject 11 Units under the skin 2 (two) times daily with meals. [facility] ARIPiprazol e (ABILIFY) 5 mg tablet 10-23 18:01: 31 Yes 5mg Take 5 mg by mouth daily. [facility] aspirin 81 mg chewable tablet 10-23 18:01: 31 Yes 81mg Take 81 mg by mouth daily. [facility] buPROPion XL 300 mg 24 hr tablet 10-23 18:01: 31 Yes 300mg Take 300 mg by mouth daily. [facility] vitamin B-12 1,000 mcg tablet 10-23 18:01: 31 Yes 1000ug Take 1,000 mcg by mouth daily. [facility] ferrous gluconate 324 mg (37.5 mg iron) tablet 10-23 18:01: 31 Yes 324mg Take 324 mg by mouth 2 (two) times daily. [facility] furosemide 80 mg tablet 10-23 18:01: 31 Yes 80mg Take 80 mg by mouth 2 (two) times daily. [facility] Sliding Scale Insulin - Lispro (HumaLOG) + Fsbg Testing 10-23 17:00: 00 Yes Subcutaneo us, TID MEALS+HS, First dose on Tue10/23/20 at 1200, Until Discontinu ed, Routine [facility] insulin glargine (LANTUS U-100) injection 33 Units 10-23 15:30: 00 Yes 33U 33 Units, Subcutaneo us, BID, First dose on Tue10/23/20 at 1030, Until Discontinu ed, Routine [facility] vitamin B-12 (CYANOCOBAL LINK) tablet 1,000 mcg 10-23 14:00: 00 Yes 1000ug 1,000 mcg, Oral, DAILY, First dose on Tue10/23/20 at 0900, Until Discontinu ed, Routine [facility] ergocalcife rol (vitamin d2) (CALCIFEROL ) capsule 50,000 Units 10-23 14:00: 00 Yes [id number] 50,000 Units, Oral, QWEEKLY, First dose on Tue10/23/20 at 0900, Until Discontinu ed, Routine [facility] citalopram (CELEXA) tablet 40 mg 10-23 14:00: 00 Yes 40mg 40 mg, Oral, DAILY, First dose on Tue10/23/20 at 0900, Until Discontinu ed, Routine [facility] cholecalcif jake (vitamin D3) tablet 5,000 Units 10-23 14:00: 00 Yes 5000U 5,000 Units, Oral, DAILY, First dose on Tue10/23/20 at 0900, Until Discontinu ed [facility] aspirin chewable tablet 81 mg 10-23 14:00: 00 Yes 81mg 81 mg, Oral, DAILY, First dose on Tue10/23/20 at 0900, Until Discontinu ed, Routine [facility] ARIPiprazol e (ABILIFY) tablet 5 mg 10-23 14:00: 00 Yes 5mg 5 mg, Oral, DAILY, First dose on Tue10/23/20 at 0900, Until Discontinu ed, Routine [facility] traMADoL (ULTRAM) tablet 50 mg 10-23 10:16: 54 Yes 50mg 50 mg, Oral, Q6HPRN, Starting Tue10/23/20 at 0516, Until Discontinu ed, Routine, Pain (scale 4-6) [facility] amLODIPine (NORVASC) tablet 5 mg 10-23 04:00: 00 Yes 5mg 5 mg, Oral, DAILY, First dose on Tue10/22/20 at 2300, Until Discontinu ed, Routine [facility] hydralAZINE (APRESOLINE ) injection 20 mg 10-23 03:56: 39 Yes 20mg 20 mg, Slow IV Push, Q4HPRN, Starting Tue10/22/20 at 2256, Until Discontinu ed, STAT, DBP=>100; SBP=>180<b r>Indicati on: Hypertensi ve Emergency [facility] atorvastati n (LIPITOR) tablet 40 mg 10-23 02:00: 00 Yes 40mg 40 mg, Oral, QHS, First dose on Tue10/22/20 at 2100, Until Discontinu ed, Routine [facility] furosemide (LASIX) tablet 80 mg 10-23 01:00: 00 Yes 80mg 80 mg, Oral, BID, First dose on Tue10/22/20 at 2000, Until Discontinu ed, Routine [facility] ferrous sulfate tablet 325 mg 10-23 01:00: 00 Yes 325mg 325 mg, Oral, BID, First dose on Tue10/22/20 at 2000, Until Discontinu ed [facility] ergocalcife rol, vitamin d2, 1,250 mcg (50,000 unit) capsule 10-23 00:00: 00 Yes [id number] Take 1 capsule by mouth weekly. [facility] D5W IV infusion 1,000 mL 10-22 22:15: 00 Yes [id number] 1000mL at 50 mL/hr, IV Infusion, CONTINUOUS , Starting Tue10/22/20 at 1715, Until Discontinu ed, Routine [facility] thiamine (VITAMIN B1) 200 mg in NaCl 0.9% (NS) piggyback 10-22 22:15: 00 10-22 22:45 :00 No [id number] 200mg IV Piggyback, ONCE, 1 dose, Tue10/22/20 at 1715, 50 mL [facility] insulin lispro (human) (HumaLOG U-100) injection 11 Units 10-22 21:30: 00 Yes 11U 11 Units, Subcutaneo us, BIDAC, First dose on Tue10/22/20 at 1630, Until Discontinu ed [facility] heparin (porcine) injection 5,000 Units 10-22 19:00: 00 Yes 5000U 5,000 Units, Subcutaneo us, Q8H, First dose on Tue10/22/20 at 1400, Until Discontinu ed, Routine [facility] ondansetron (ZOFRAN (PF)) injection 4 mg 10-22 17:49: 47 Yes 4mg 4 mg, Slow IV Push, Q6HPRN, Starting Tue10/22/20 at 1249, Until Discontinu ed, Routine, Nausea and Vomiting (N/V) [facility] acetaminoph en (TYLENOL) tablet 650 mg 10-22 17:49: 38 Yes 650mg 650 mg, Oral, Q6HPRN, Starting Tue10/22/20 at 1249, Until Discontinu ed, Routine, Pain (scale 1-3) [facility] bupropion hcl er (xl) 150 mg tablet [...] Source Zoster Vaccine Recombinant 2020-08-07 00:00:00 Completed [facility] Zoster Vaccine Recombinant 2020-08-07 00:00:00 Completed [facility] Zoster Vaccine Recombinant 2020-08-07 00:00:00 Completed [facility] Zoster Vaccine Recombinant 2020-08-07 00:00:00 Completed [facility] Zoster Vaccine Recombinant 2020-08-07 00:00:00 Completed [facility] SARS-COV-2 COVID-19 PFIZER VACCINE 2020-06-13 00:00:00 Completed [facility] SARS-COV-2 COVID-19 PFIZER VACCINE 2020-06-13 00:00:00 Completed [facility] SARS-COV-2 COVID-19 PFIZER VACCINE 2020-06-13 00:00:00 Completed [facility] SARS-COV-2 COVID-19 PFIZER VACCINE 2020-06-13 00:00:00 Completed [facility] SARS-COV-2 COVID-19 PFIZER VACCINE 2020-06-13 00:00:00 Completed [facility] Pneumococcal 13 Conjugate, PCV13 (Prevnar 13) 2020-04-18 00:00:00 Completed [facility] Pneumococcal 13 Conjugate, PCV13 (Prevnar 13) 2020-04-18 00:00:00 Completed [facility] Pneumococcal 13 Conjugate, PCV13 (Prevnar 13) 2020-04-18 00:00:00 Completed [facility] Pneumococcal 13 Conjugate, PCV13 (Prevnar 13) 2020-04-18 00:00:00 Completed [facility] Pneumococcal 13 Conjugate, PCV13 (Prevnar 13) 2020-04-18 00:00:00 Completed [facility] Influenza Virus Vaccine Quad IM 3+ YRS 2019-12-27 00:00:00 Completed [facility] Influenza Virus Vaccine Quad IM 3+ YRS 2019-12-27 00:00:00 Completed [facility] Influenza Virus Vaccine Quad IM 3+ YRS 2019-12-27 00:00:00 Completed [facility] Influenza Virus Vaccine Quad IM 3+ YRS 2019-12-27 00:00:00 Completed [facility] Influenza Virus Vaccine Quad IM 3+ YRS 2019-12-27 00:00:00 Completed [facility] Influenza Virus Vaccine 2019-05-05 00:00:00 Completed [facility] Influenza Virus Vaccine 2019-05-05 00:00:00 Completed [facility] Influenza Virus Vaccine 2019-05-05 00:00:00 Completed [facility] Influenza Virus Vaccine 2019-05-05 00:00:00 Completed [facility] Influenza Virus Vaccine 2019-05-05 00:00:00 Completed [facility] TDAP 2017-05-11 00:00:00 Completed [facility] TDAP 2017-05-11 00:00:00 Completed [facility] TDAP 2017-05-11 00:00:00 Completed [facility] TDAP 2017-05-11 00:00:00 Completed [facility] TDAP 2017-05-11 00:00:00 Completed [facility] Influenza Virus Vaccine 2014-12-26 00:00:00 Completed [facility] Influenza Virus Vaccine (3+ yrs) 2014-12-26 00:00:00 Completed [facility] Influenza Virus Vaccine 2014-12-26 00:00:00 Completed [facility] Influenza Virus Vaccine (3+ yrs) 2014-12-26 00:00:00 Completed [facility] Influenza Virus Vaccine 2014-12-26 00:00:00 Completed [facility] Influenza Virus Vaccine (3+ yrs) 2014-12-26 00:00:00 Completed [facility] Influenza Virus Vaccine 2014-12-26 00:00:00 Completed [facility] Influenza Virus Vaccine (3+ yrs) 2014-12-26 00:00:00 Completed [facility] Influenza Virus Vaccine 2014-12-26 00:00:00 Completed [facility] Influenza Virus Vaccine (3+ yrs) 2014-12-26 00:00:00 Completed [facility] SARS-COV-2 COVID-19 PFIZER VACCINE Unknown Completed [facility] Influenza Virus Vaccine Unknown Completed [facility] Influenza Virus Vaccine Quad IM 3+ YRS Unknown Completed [facility] Influenza Virus Vaccine (3+ yrs) Unknown Completed [facility] Pneumococcal 13 Conjugate, PCV13 (Prevnar 13) Unknown Completed [facility] TDAP Unknown Completed [facility] Zoster Vaccine Recombinant Unknown Completed [facility] Vital Signs Vital Name Observation Time Observation Value Comments S ource Systolic blood pressure 2023-11-11 18:09:00 134 mm[Hg] [facility] Diastolic blood pressure 2023-11-11 18:09:00 79 mm[Hg] [facility] Heart rate 2023-11-11 18:09:00 71 /min [facility] Body temperature 2023-11-11 18:09:00 36.22 Madalyn [facility] Respiratory rate 2023-11-11 18:09:00 18 /min [facility] Oxygen saturation in Arterial blood by Pulse oximetry 2023-11-11 18:09:00 96 /min [facility] Body height 2023-11-11 14:57:00 175.3 cm [facility] Body weight 2023-11-11 14:57:00 136.079 kg [facility] BMI 2023-11-11 14:57:00 44.30 kg/m2 [facility] Systolic blood pressure 2022-07-04 19:00:00 106 mm[Hg] [facility] Diastolic blood pressure 2022-07-04 19:00:00 57 mm[Hg] [facility] Heart rate 2022-07-04 19:00:00 51 /min [facility] Respiratory rate 2022-07-04 19:00:00 14 /min [facility] Oxygen saturation in Arterial blood by Pulse oximetry 2022-07-04 19:00:00 93 /min [facility] Body temperature 2022-07-04 16:43:00 36.06 Madalyn [facility] Body height 2022-07-04 16:43:00 177.8 cm [facility] Body weight 2022-07-04 16:43:00 149.687 kg [facility] BMI 2022-07-04 16:43:00 47.35 kg/m2 [facility] Systolic blood pressure 2020-10-23 21:02:00 94 mm[Hg] [facility] Diastolic blood pressure 2020-10-23 21:02:00 67 mm[Hg] [facility] Heart rate 2020-10-23 21:02:00 59 /min [facility] Body temperature 2020-10-23 21:02:00 36.56 Madalyn [facility] Respiratory rate 2020-10-23 21:02:00 13 /min [facility] Oxygen saturation in Arterial blood by Pulse oximetry 2020-10-23 21:02:00 94 /min [facility] Body height 2020-10-22 20:03:00 177.8 cm [facility] Body weight 2020-10-22 20:03:00 140.615 kg [facility] BMI 2020-10-22 20:03:00 44.48 kg/m2 [facility] Procedures Procedure Date / Time Performed Performing Clinician Source [id number] 2023-11-13 00:00:00 VICKEY EDGE [facility] DUPLEX VENOUS LEG LEFT - BY VASCULAR LAB 2023-11-11 15:47:00 Duyen Judd [facility] PHOSPHORUS 2023-11-11 15:38:00 Duyen Judd [facility] MAGNESIUM 2023-11-11 15:38:00 Duyen Judd [facility] COMP. METABOLIC PANEL ([id number]) 2023-11-11 15:38:00 Duyen Judd [facility] CBC WITH DIFF 2023-11-11 15:38:00 Duyen Judd [facility] REFERRAL- REQUEST/RESPONSE 2022-08-05 05:01:00 D dayana Unassigned, [place] [facility] COMP. METABOLIC PANEL ([id number]) 2022-07-04 17:28:00 Catalina Preciado [facility] CBC WITH DIFF 2022-07-04 17:28:00 Catalina Preciado [facility] PROTHROMBIN TIME / INR 2022-07-04 17:28:00 Jason Preciado [facility] ACTIVATED PARTIAL THRMPLAS TOYA 2022-07-04 17:28:00 Ozzy [facility] [id number] 2022-03-31 00:00:00 CHERYL.01 [facility] [id number] 2022-03-29 00:00:00 CHERYL.01 [facility] [id number] 2022-03-29 00:00:00 CHERYL.01 [facility] MAGNESIUM 2020-10-23 09:20:00 [facility]OL[facility] PANEL (NA, K, CL, CO2, GLUCOSE, BUN, CREATININE, CA) 2020-10-23 09:20:00 Haylie Ramírez [facility] CBC WITH DIFF 2020-10-23 09:20:[facility] 2020-10-23 00:59:00 Lisset Ramírez [facility] XR CHEST 2 VW 2020-10-23 00:43:19 Jojo Madrigal [facility] US RETROPERITONEAL COMPLETE 2020-10-22 23:18:55 [facility] FERRITIN SERUM 2020-10-22 21:56:00 Jojo Madrigal [facility] TOTAL IRON BINDING CAPACITY 2020-10-22 21:56:00 Kaitlin, Brigani [facility] THYROID STIMULATING HORMONE 2020-10-22 21:56:00 Jojo Madrigal [facility] INTACT PTH CALCIUM GROUP 2020-10-22 21:56:00 Saroj Madrigal [facility] HEPATITIS B SURFACE ANTIBODY 2020-10-22 21:56:00 Jojo Madrigal [facility] HEPATITIS B SURFACE ANTIGEN 2020-10-22 21:56:00 Jojo Madrigal [facility] HBC ANTIBODY (IGM & IGG) 2020-10-22 21:56:00 Saroj Madrigal [facility] N-TERMINAL PRO-BNP 2020-10-22 21:56:00 Jojo Madrigal [facility] VITAMIN D, 25-OH 2020-10-22 21:56:[address] [facility] POCT GLUCOSE (AUTOMATED) 2020-10-22 21:37:00 Lisset Ramírez [facility] URINE DRUG (IMMUNOASSAY) - COMPREHENSIVE DRUG SCREEN 2020-10-22 19:35:00 Meg Stinson [facility] GLYCOSYLATED HEMOGLOBIN (A1C) 2020-10-22 19:35:00 Meg Stinson [facility] OSMOLALITY URINE 2020-10-22 19:31:[address] [facility] URINALYSIS 2020-10-22 19:31:00 Rebecca Hubbard [facility] VITAMIN D, 25-OH 2020-10-22 19:31:00 Haylie Ramírez [facility] CREATININE, URINE RANDOM 2020-10-22 19:31:00 Saroj Madrigal [facility] TOTAL PROTEIN, URINE RANDOM 2020-10-22 19:31:00 Jojo Madrigal [facility] POTASSIUM, URINE RANDOM 2020-10-22 19:31:00 Nisha Madrigal [facility] SODIUM, URINE RANDOM 2020-10-22 19:31:00 To Madrigal [facility] PHOSPHORUS 2020-10-22 19:30:00 Haylie Ramírez [facility] CREATINE KINASE 2020-10-22 19:30:00 Jojo Madrigal Un [facility] URIC ACID 2020-10-22 19:30:00 Desiree Haylie [facility] FERRITIN SERUM 2020-10-22 19:30:00 Haylie Ramírez [facility] IRON 2020-10-22 19:30:00 [facility]e [facility] [facility] TOTAL IRON BINDING CAPACITY 2020-10-22 19:30:00 Haylie Ramírez [facility] INTACT PTH CALCIUM GROUP 2020-10-22 19:30:00 Lisset Ramírez [facility] HB ECG ROUTINE & RHYTHM STRIP 2020-10-22 16:16:29 Rebecca Hubbard [facility] COVID-19 (ID NOW RAPID TESTING) 2020-10-22 16:12:00 Rebecca Hubbard [facility] PHOSPHORUS 2020-10-22 15:15:[address] [facility] MAGNESIUM 2020-10-22 15:15:00 Rebecca Hubbard [facility] TROPONIN I 2020-10-22 15:15:00 Rebecca Hubbard [facility] COMP. METABOLIC PANEL ([id number]) 2020-10-22 15:15:00 Rebecca Hubbard [facility] CBC WITH DIFF 2020-10-22 15:15:[address] [facility] NOTICE OF PRIVACY PRACTICES 2020-10-22 14:39:44 Doctor Unassigned, [place] [facility] CONSENT/REFUSAL FOR DIAGNOSIS AND TREATMENT 2020-10-22 14:37:51 Doctor Unassigned, [place] [facility] Encounters Start Date/Time End Date/Time Encounter Type Admission Type Attending Clinicians Care Facility Care Department Encounter ID Source 2023-11-13 15:44:00 2023-11-14 19:34:00 Inpatient EM Koby Low [facility]02 [id number] [facility] 2023-11-13 17:56:00 2023-11-13 17:56:00 Outpatient Koby Low [facility] [id number] [facility] 2023-11-11 10:02:00 2023-11-11 13:37:00 Emergency [facility] [id number] [facility] 2023-11-11 10:02:00 2023-11-11 13:37:00 Emergency BrendaDuyen [facility] 1.2840.114 350.1.13.10 4.2.7.2.686 [id number] [facility] 2023-11-10 12:00:00 2023-11-10 13:00:00 Initial D2Me Kierra Boswell 2.16.840. [id number] 2.16.840.1. [id number] [facility] 2022-10-02 00:00:00 2022-10-02 00:00:00 Outpatient DMG DM [id number] [facility] 2022-08-05 00:00:00 2022-08-05 00:00:00 Orders Only Doctor Unassigned, [place] [facility] 1.2.840.114 350.1.13.10 4.2.7.2.686 [id number] [facility] 2022-07-04 11:42:00 2022-07-04 15:00:00 Emergency X [facility] ERT [id number] [facility] 2022-07-04 11:42:00 2022-07-04 15:00:00 Emergency Catalina Preciado [facility] 1.84.114 350.1.13.10 4.2.7.2.686 [id number] [facility] 2022-03-30 18:47:00 2022-03-31 17:09:00 Inpatient Tommy Beckford [facility] TELE [id number] [facility] 2021-04-30 00:00:00 2021-04-30 00:00:00 Telephone Glory Muñiz [facility] 1.2.840.114 350.1.13.10 4.2.7.2.686 [id number] [facility] 2021-04-28 15:30:00 2021-04-28 15:45:00 Laboratory Only Only, Ang Db Test Charlie [facility] 1.2.840.114 350.1.13.10 4.2.7.2.686 [id number] [facility] 2020-10-22 09:47:00 2020-10-23 17:45:00 Outpatient [facility] [id number] [facility] 2020-10-22 09:47:00 2020-10-23 17:45:00 Emergency Rebecca Hubbard [facility] 1.2.840.114 350.1.13.10 4.2.7.2.686 [id number] [facility] Results Test Description Test Time Test Comments Results Result Co mments Source AG HEPATITIS B [id number] 06:12:00* Test Item Value Reference Range Interpretation Comme nts AG HEPATITIS B SURFACE (test code = HBSAG) NEGATIVE SCREEN NEGATIVE AB HEPATITIS B [id number] 06:12:00* Test Item Value Reference Range Interpretation Comme nts AB HEPATITIS B CORE (test code = HBCAB) Negative Negative Performed At : [facility] [address] [id number] Kyle L MD Ph:[phone] AB HEPATITIS [id number] 06:12:00* Test Item Value Reference Range Interpretation Comme nts AB HEPATITIS C (test code = HCVAB) Non Reactive RATIO Non Reactive HCV antibody alone d oes not differentiate betweenpreviously resolved infection and active infection.Equivocal and Reactive HCV antibody results should befollowed up with an HCV RNA test to support the diagnosisof active HCV infection. BASIC METABOLIC [id number] 06:38:00* Test Item Value Reference Range Interpretation [...] CA) 8.7 MG/DL 8.5-10.1 N COMPREHENSIVE METABOLIC [id number] 06:38:00* Test Item Value Reference Range Interpretation [...] ALKP) 146 Unit/L 50-136 H CBC W/AUTO [id number] 06:12:00* Test Item Value Reference Range Interpretation [...] code = NRBC#) 0.0 K/mm3 0.00-0.01 N [id number] 20:14:00* Test Item Value Reference Range Interpretation Comme nts MAGNESIUM (test code = MAG) 2.2 MG/DL 1.8-2.4 N COVID 19 INHOUSE [id number] 17:45:00* Test Item Value Reference Range Interpretation Comme nts COVID 19 INHOUSE AG (test code = [id number]) NEGATIVE Negative Per private branch exchange service adviser , 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 PROTHROMBIN [id number] 17:43:00* Test Item Value Reference Range Interpretation Comme [facility] PT PATIENT (test code = PTP) 13.3 [...] Infarction (to prevent recurrent infarct). THROMBOPLASTIN TIME [id number] 17:43:00* Test Item Value Reference Range Interpretation Comme [facility] THROMBOPLASTIN TIME PARTIAL (test code = PTT) 30.6 SECONDS 26-35 N NT PRO-BRAIN NATRIURETIC [id number] 17:27:00* Test Item Value Reference Range Interpretation Comme nts NT PRO-BRAIN NATRIURETIC PEP TI (test code = PROBNP) 8847 PG/ML 0-100 H TROP-I HIGH [id number] 17:27:00* Test Item Value Reference Range Interpretation [...] and URLs may varyby method. BASIC METABOLIC [id number] 17:27:00* Test Item Value Reference Range Interpretation [...] CA) 8.4 MG/DL 8.5-10.1 L HEPATIC FUNCTION [id number] 17:27:00* Test Item Value Reference Range Interpretation [...] code = ALKP) 137 Unit/L 50-136 H [id number] 17:27:00* Test Item Value Reference Range Interpretation Comme nts LIPASE (test code = LIP) 19 Unit/L 13-75 N CBC W/AUTO [id number] 16:56:00* Test Item Value Reference Range Interpretation [...] = NRBC#) 0.0 K/mm3 0.00-0.01 N LACTIC [id number] 16:33:00* Test Item Value Reference Range Interpretation Comme nts LACTIC ACID (test code = LACT) 0.2 mmol/L 0.4-1.9 L [id number] 16:05:28* Test Item Value Reference Range Interpretation Comme nts MAGNESIUM (test code = 1693930432) 1.8 mg/dL 1.7-2.4 Lab Interpretation (test cod e = 78957-7) [facility] (08290)2023-11-11 16:05:07* Test Item Value Reference Range Interpretation Comme nts NA (test code = 7933374526) 136 mmol/L 135-145 K (test code = 9292434297) 5.5 mmol/L 3.5-5.0 H CL (test code = 6205900262) 98 mmol/L 98-108 CO2 TOTAL (test code = 3549942269) 21 mmol/L 23-31 L AGAP (test code = 1055466631) 17 2-16 H BUN (test code = 7850126027) 57 mg/dL 7-23 H GLUCOSE (test code = 1600777219) 109 mg/dL 70-110 CREATININE (test code = 2160-0) 10.04 mg/dL 0.60-1.25 H TOTAL BILI (test code = 4032093589) 0.8 mg/dL 0.1-1.1 CALCIUM (test code = 6831914951) 8.8 mg/dL 8.6-10.6 T PROTEIN (test code = 5271004902) 8.0 g/dL 6.3-8.2 ALBUMIN (test code = 7394727281) 4.1 g/dL 3.5-5.0 ALK PHOS (test code = 7425676466) 105 U/L 34-122 ALTv (test code = 1742-6) 13 U/L 5-50 AST(SGOT) (test code = 3923348374) 18 U/L 13-40 eGFR (test code = 20986-2) 5.5 mL/min/1.73m2 CKD-EPI eGFR (2020). Assuming creatinine has been stable day-to-day for at least three months, the eGFR indicates Category G5 (<= 14mL/min/1.73 m2) Lab Interpretation (test code = 30507-9) [facility] 16:04:51* Test Item Value Reference Range Interpretation Comme nts PHOSPHORUS (test code = 3864233765) 6.7 mg/dL 2.5-5.0 H Lab Interpretation (test cod e = 79457-7) [facility]normal [facility] [id number] 15:50:27* Test Item Value Reference Range Interpretation [...] 32.6 g/dL 31.2-35.0 RDW-SD (test code = 96277-0) 48.6 fL 38.5-51.6 RDW-CV (test code = 788-0) 13.6 % 12.1-15.4 PLT (test code = 777-3) 213 150-328 MPV (test code = 92286-1) 10.1 fL 9.8-13.0 NRBC/100 WBC (test code = 4733059044) 0.0 0.0-10.0 NRBC x10^3 (test code = 8495810675) See_Comment [Automated message] The system which generated this result transmitted reference range: 10*3/?L. The reference range was not used to interpret this result as normal/abnormal. GRAN MAT (NEUT) % (test code = 770-8) 82.5 % IMM GRAN % (test code = 8457023656) 0.60 % LYMPH % (test code = 736-9) 6.8 % MONO % (test code = 5905-5) 8.9 % EOS % (test code = 713-8) 0.9 % BASO % (test code = 706-2) 0.3 % GRAN MAT x10^3(ANC) (test code = 3302831870) 11.60 10*3/uL 1.99-6.95 H IMM GRAN x10^3 (test code = 4354429365) 0.08 10*3/uL 0.00-0.06 H LYMPH x10^3 (test code = 731-0) 0.96 10*3/uL 1.09-3.23 L MONO x10^3 (test code = 742-7) 1.25 10*3/uL 0.36-1.02 H EOS x10^3 (test code = 711-2) 0.13 10*3/uL 0.06-0.53 BASO x10^3 (test code = 704-7) 0.04 10*3/uL 0.01-0.09 Lab Interpretation (test code = 01792-5) Abnormal [facility]. METABOLIC PANEL (35098)2022-07-04 18:07:19* Test Item Value Reference Range Interpretation Comme nts NA (test code = 7251629374) 141 mmol/L 135-145 K (test code = 6149771399) 5.1 mmol/L 3.5-5.0 H CL (test code = 3643040752) 111 mmol/L 98-108 H CO2 TOTAL (test code = 2363931869) 21 mmol/L 23-31 L AGAP (test code = 0033725089) 9 2-16 BUN (test code = 9994212977) 61 mg/dL 7-23 H GLUCOSE (test code = 6555075691) 71 mg/dL 70-110 CREATININE (test code = 8166906688) 7.66 mg/dL 0.60-1.25 H TOTAL BILI (test code = 5775365850) 0.5 mg/dL 0.1-1.1 CALCIUM (test code = 1080944002) 8.3 mg/dL 8.6-10.6 L T PROTEIN (test code = 3860606369) 6.3 g/dL 6.3-8.2 ALBUMIN (test code = 4907722712) 3.6 g/dL 3.5-5.0 ALK PHOS (test code = 2486164781) 99 U/L 34-122 ALTv (test code = 1742-6) 14 U/L 5-50 AST(SGOT) (test code = 0376390719) 16 U/L 13-40 eGFR (test code = 8188625453) 7.4 mL/min/1.73m2 CANDY (test code = CANDY) [...] imaging tests). Lab Interpretation (test code = 83463-2) Abnormal [facility] THRMPLAS [id number] 18:05:59* Test Item Value Reference Range Interpretation Comme [facility] APTT Patient (test code = 3173-2) 28 See_Comment [Automated message] The system which generated this result transmitted reference range: 23 - 38 Seconds. The reference range was not used to interpret this result as normal/abnormal. CANDY (test code = CANDY) [facility] patient population mean normal value for aPTT is 30 seconds. Lab Interpretation (test code = 14626-1) Normal [facility] / [id number] 18:04:12* Test Item Value Reference Range Interpretation Comme [facility] PROTIME PATIENT (test code = 5964-2) 13.3 See_Comment [Automated [employer] ge] The system which generated this result transmitted reference range: 12.0 - 14.7 Seconds. The reference range was not used to interpret this result as normal/abnormal. INR (test code = 6301-6) 1.1 Normal INR <1.1; Warfarin Therapeutic range 2.0 to 3.0 or 2.5 to 3.5, depending upon the indications. Lab Interpretation (test code = 76869-1) Normal [facility] WITH [id number] 17:55:19* Test Item Value Reference Range Interpretation [...] g/dL 31.2-35.0 L RDW-SD (test code = 26405-4) 50.4 fL 38.5-51.6 RDW-CV (test code = 788-0) 13.9 % 12.1-15.4 PLT (test code = 777-3) 181 See_Comment [Automated messa ge] The system which generated this result transmitted reference range: 150 - 328 10*3/?L. The reference range was not used to interpret this result as normal/abnormal. MPV (test code = 09178-2) 10.1 fL 9.8-13.0 NRBC/100 WBC (test code = 4048670537) 0.0 See_Comment [Automated [employer] ([employer]) ssage] The system which generated this result transmitted reference range: 0.0 - 10.0 /100 WBCs. The reference range was not used to interpret this result as normal/abnormal. NRBC x10^3 (test code = 8134633479) See_Comment [Automated [employer] ge] The system which generated this result transmitted reference range: 10*3/?L. The reference range was not used to interpret this result as normal/abnormal. GRAN MAT (NEUT) % (test code = 770-8) 71.6 % IMM GRAN % (test code = 2860694437) 0.60 % LYMPH % (test code = 736-9) 16.2 % MONO % (test code = 5905-5) 7.3 % EOS % (test code = 713-8) 3.8 % BASO % (test code = 706-2) 0.5 % GRAN MAT x10^3(ANC) (test code = 7245658285) 5.69 10*3/uL 1.99-6.95 IMM GRAN x10^3 (test code = 8559691248) 0.05 10*3/uL 0.00-0.06 LYMPH x10^3 (test code = 731-0) 1.29 10*3/uL 1.09-3.23 MONO x10^3 (test code = 742-7) 0.58 10*3/uL 0.36-1.02 EOS x10^3 (test code = 711-2) 0.30 10*3/uL 0.06-0.53 BASO x10^3 (test code = 704-7) 0.04 10*3/uL 0.01-0.09 Lab Interpretation (test code = 59806-4) Abnormal [facility] [id number] 13:02:00* Test Item Value Reference Range Interpretation Comme nts GLUCOSE BEDSIDE TESTING (negrita t code = GLUBED) 263 MG/DL 60-99 H GLUCOSE BEDSIDE [id number] 07:47:00* Test Item Value Reference Range Interpretation Comme nts GLUCOSE BEDSIDE TESTING (negrita t code = GLUBED) 145 MG/DL 60-99 H COMPREHENSIVE METABOLIC [id number] 07:22:00* Test Item Value Reference Range Interpretation [...] calculation forGFR is based on the CKD-EPI (202) calculation. This formulais race indifferent and is [...] and aplastic anemia) with specific assayson the [employer] of which Total Protein is one [...] code = ALKP) 100 UNITS/L 38-126 N [id number] 07:22:00* Test Item Value Reference Range Interpretation Comme nts MAGNESIUM (test code = MAG) 1.9 MG/DL 1.6-2.3 N CBC W/AUTO [id number] 06:40:00* Test Item Value Reference Range Interpretation [...] NRBC#) 0.00 K/mm3 0.0-0.1 N GLUCOSE BEDSIDE [id number] 18:59:00* Test Item Value Reference Range Interpretation Comme nts GLUCOSE BEDSIDE TESTING (negrita t code = GLUBED) 232 MG/DL 60-99 H GLUCOSE BEDSIDE [id number] 17:34:00* Test Item Value Reference Range Interpretation Comme nts GLUCOSE BEDSIDE TESTING (negrita t code = GLUBED) 204 MG/DL 60-99 H GLUCOSE BEDSIDE [id number] 11:25:00* Test Item Value Reference Range Interpretation Comme nts GLUCOSE BEDSIDE TESTING (negrita t code = GLUBED) 276 MG/DL 60-99 H COMPREHENSIVE METABOLIC [id number] 07:21:00* Test Item Value Reference Range Interpretation [...] code = ALKP) 102 UNITS/L 38-126 N [id number] 07:21:00* Test Item Value Reference Range Interpretation Comme nts MAGNESIUM (test code = MAG) 2.0 MG/DL 1.6-2.3 N CBC W/AUTO [id number] 06:47:00* Test Item Value Reference Range Interpretation [...] 0.00 K/mm3 0.0-0.1 N - XR CHEST [id number] 06:24:00 [facility] : 1965 Sex: M Patient Name: ARNOLD KOENIG Unit No: [id number] EXAMS: CPT CODE: [id number] XR CHEST 1V 51828 EXAM: - XR DBOWN6T Location code:C3 HISTORY: PULM EDEMA COMPARISON: None [...] Shlomo Beasley MD CC: Tommy Sosa MD Techno logist: Janet Arellano RT (R) Transcrpt Date/Tm/Trnsp: 03/30/2022 (623) t.ANGELIAR.CB5 Orig Print D/T: S: 03/30/2022 (626) [facility] NAME: ARONLD KOENIG [address] PHYS: CHERYL.01 [place] [address] : 1965 AGE: 56 SEX: M LOC: Z.417 A PHONE #: [phone] EXAM DATE: 03/30/2022 STATUS: ADM IN FAX #: [phone] RADIOLOGY NO: PAGE 1 Signed ReportHEPATITIS B SURF AB, [id number] 19:23:00* Test Item Value Reference Range Interpretation [...] infection.~~~~~~~~~~~~~ ~~~~~~~~~~~~~~~~~~~~~~~ ~~~~~~~~~~~~~~~~~~~~~~~ ~ AG HEPATITIS B [id number] 19:23:00* Test Item Value Reference Range Interpretation Comme nts AG HEPATITIS B SURFACE (test code = HBSAG) NEGATIVE NONREACTIVE GLUCOSE BEDSIDE [id number] 19:18:00* Test Item Value Reference Range Interpretation Comme nts GLUCOSE BEDSIDE TESTING (negrita t code = GLUBED) 259 MG/DL 60-99 H COMPREHENSIVE METABOLIC [id number] 18:39:00* Test Item Value Reference Range Interpretation [...] code = PROT) 6.9 G/DL 6.2-7.6 N Ortho Clinical D iagnostic has made us aware of newinformation regarding the potential interference ofEltrombopag (a bone marrow stimulant used to treatthrombocytonmenia and aplastic anemia) with specific assayson the [employer]00 of which Total Protein is one [...] mg/dL VERY HIGH.........>/= 190 mg/dL GLYCOSYLATED HEMOGLOBIN [id number] 18:28:00* Test Item Value Reference Range Interpretation [...] MBG) 174 MG/DL 70-110 H CBC W/AUTO [id number] 18:11:00* Test Item Value Reference Range Interpretation [...] 0.00 K/mm3 0.0-0.1 N INTACT PTH CALCIUM [id number] 15:40:51* Test Item Value Reference Range Interpretation Comme nts PTH-INTACT (test code = 1307244895) 174.9 pg/mL 12.0-88.0 H PTH-CA Interpretation (test code = 2668241782) Further clinical data needed for interpretation. CALCIUM (test code = 3545618038) 9.1 mg/dL 8.6-10.6 Lab Interpretation (test code = 02008-5) [facility]normal [facility] [id number] 15:40:50* Test Item Value Reference Range Interpretation Comme nts PTH-INTACT (test code = 0704400261) 207.3 pg/mL 12.0-88.0 H PTH-CA Interpretation (test code = 4853025504) Further clinical data needed for interpretation. CALCIUM (test code = 2826958899) 9.2 mg/dL 8.6-10.6 Lab Interpretation (test code = 75673-2) Abnormal [facility] Metabolic Panel (NA, K, CL, CO2, GLUCOSE, BUN, CREATININE, CA)2020-10-23 11:42:35* Test Item Value Reference Range Interpretation Comme nts NA (test code = 3737129998) 142 mmol/L 135-145 K (test code = 2573231935) 3.8 mmol/L 3.5-5.0 CL (test code = 1097058148) 106 mmol/L 98-108 CO2 TOTAL (test code = 0343748433) 27 mmol/L 23-31 AGAP (test code = 4972103500) 2-16 BUN (test code = 6455550663) 76 mg/dL 7-23 H GLUCOSE (test code = 0404131082) 193 mg/dL 70-110 H CREATININE (test code = 5110097951) 6.07 mg/dL 0.60-1.25 H CALCIUM (test code = 7723663205) 9.1 mg/dL 8.6-10.6 eGFR (test code = 8993965241) mL/min/1.73m2 CANDY (test code = CANDY) Association [...] imaging tests). Lab Interpretation (test code = 82029-2) Abnormal [facility]ano[facility] [id number] 11:42:35* Test Item Value Reference Range Interpretation Comme nts MAGNESIUM (test code = 7373652462) 2.3 mg/dL 1.7-2.4 Lab Interpretation (test cod e = 11523-9) Normal [facility] with Xkckihakbwci6425-72-99 11:10:11* Test Item Value Reference Range Interpretation Comme nts WBC (test code = 6690-2) See_Comment [Automated [employer]] The system which generated this result transmitted reference range: 4.20 - 10.70 10*3/?L. The reference range was not used to interpret this result as normal/abnormal. RBC (test code = 789-8) See_Comment L [Automated [employer]] The system which generated this result transmitted [...] 31.5 g/dL 31.2-35.0 RDW-SD (test code = 25257-1) 45.0 fL 38.5-51.6 RDW-CV (test code = 788-0) 13.4 % 12.1-15.4 PLT (test code = 777-3) See_Comment [Automated [employer]] The system which generated this result transmitted reference range: 150 - 328 10*3/?L. The reference range was not used to interpret this result as normal/abnormal. MPV (test code = 11340-6) 10.6 fL 9.8-13.0 NRBC/100 WBC (test code = 5252894382) See_Comment [Automated me ssage] The system which generated this result transmitted reference range: 0.0 - 10.0 /100 WBCs. The reference range was not used to interpret this result as normal/abnormal. NRBC x10^3 (test code = 3010790381) <0.01 See_Comment [Automated messa ge] The system which generated this result transmitted reference range: 10*3/?L. The reference range was not used to interpret this result as normal/abnormal. GRAN MAT (NEUT) % (test code = 770-8) 67.1 % IMM GRAN % (test code = 9968933509) 0.30 % LYMPH % (test code = 736-9) 21.3 % MONO % (test code = 5905-5) 7.6 % EOS % (test code = 713-8) 3.3 % BASO % (test code = 706-2) 0.4 % GRAN MAT x10^3(ANC) (test code = 2191966601) 5.36 10*3/uL 1.99-6.95 IMM GRAN x10^3 (test code = 8316345562) <0.03 0.00-0.06 LYMPH x10^3 (test code = 731-0) 1.70 10*3/uL 1.09-3.23 MONO x10^3 (test code = 742-7) 0.61 10*3/uL 0.36-1.02 EOS x10^3 (test code = 711-2) 0.26 10*3/uL 0.06-0.53 BASO x10^3 (test code = 704-7) 0.03 10*3/uL 0.01-0.09 Lab Interpretation (test code = 70542-8) Abnormal [facility] GLUCOSE (AUTOMATED)2020-10-23 05:54:27* Test Item Value Reference Range Interpretation Comme nts POCT GLU (test code = 3774739053) 218 mg/dL 70-110 H Lab Interpretation (test cod e = 67395-2) Abnormal [facility]IT[facility], [id number] 05:11:32* Test Item Value Reference Range Interpretation Comme [facility] VIT D 25OH (test code = 73165-6) 46 ng/mL 25-80 CANDY (test code = CANDY) Deficiency: <20 ng/mLInsufficiency : 20-24 ng/mLOptimal: 25-80 ng/mL Lab Interpretation (test code = 80904-4) [facility] B Core Antibody, [id number] 05:11:12* Test Item Value Reference Range Interpretation Comme [facility] HBC (test code = 7854591003) Negative HBC Semi-Quantitative (test code = 2108490000) [facility] B SURFACE [id number] 05:11:12* Test Item Value Reference Range Interpretation Comme [facility] HBsAB (test code = 4258799920) Negative HBsAb Semi-Quantitative (test code = 5819326917) mIU/mL CANDY (test code = CANDY) Interpretation: ?Hepatitis B Surface Antibody ? Negative - Patient is considered to be not immune to infection with HBV. ? ? Positive - Anti-HBs detected at greater than or equal to 12 mIU/mL. ?Patient is considered to be immune to infection with HBV. ? [facility] B SURFACE [id number] 04:53:21 * Test Item Value Reference Range Interpretation Comme [facility] HBsAg Semi-Quantitative (negrita t code = 5195-3) Negative Negative [facility]ano[facility]OTAL PROTEIN, URINE [id number] 03:14:16 * Test Item Value Reference Range Interpretation Comme nts T. PROT U (test code = 2888-6) 743 mg/dL [facility]ano[facility] CHEST 2 [id number] 02:58:28Impression: Nodular opacity overlying the left upper lung, seen only in the APprojection. I cannot exclude pulmonary nodule related to infection orneoplasm. Further evaluation with CT of the chest isrecommended if thereare no prior studies for comparison. RL: 460 End of Report Ordering Physician: ?BRIGANI KAITLIN History: ?Assess for pulmonary edema. Rule out [...] unremarkablefor age, projection, and degree of inspiration. [facility], Radiant Results Inft User - 10/22/2020 10:17 PMCDT Ordering Physician: JOJO BAPTISTEANTEHistory: Assess for pulmonary edema. Rule out pulmonary [...] 460End of Report UnB[facility] CenterPOCT GLUCOSE (AUTOMATED)2020-10-23 01:11:29* Test Item Value Reference Range Interpretation Comme nts POCT GLU (test code = 1206908171) 143 mg/dL 70-110 H Lab Interpretation (test cod e = 60573-0) Abnormal [facility] [id number] 00:56:19* Test Item Value Reference Range Interpretation Comme nts OSMO U (test code = 0922018408) See_Comment [Automated [employer]] The system which generated this result transmitted reference range: 50-1,100 mOsm/kg. The reference range was not used to interpret this result as normal/abnormal. Lab Interpretation (test code = 28083-2) [facility], [id number] 00:10:49* Test Item Value Reference Range Interpretation Comme nts VIT D 25OH (test code = 33351-1) 39 ng/mL 25-80 CANDY (test code = CANDY) Deficiency: <20 ng/mLInsufficiency : 20-24 ng/mLOptimal: 25-80 ng/mL Lab Interpretation (test code = 29283-8) Normal [facility]FERRITIN [id number] 23:38:41* Test Item Value Reference Range Interpretation Comme nts FERRITIN (test code = 8940073299) 51.5 ng/mL 18.0-464.0 CANDY (test code = CANDY) Biotin has been reported to cause a negative bias, interpret results relative to patient's use of biotin. Lab Interpretation (test code = 34902-0) Normal [facility]ano[facility]YROID STIMULATING [id number] 23:34:40 * Test Item Value Reference Range Interpretation Comme nts TSH (test code = 3178159581) See_Comment [Automated [employer]] The system which generated this result transmitted reference range: 0.45 - 4.70 mIU/L. The reference range was not used to interpret this result as normal/abnormal. Lab Interpretation (test code = 83151-4) Normal [facility]anoN-TERMINAL [id number] 23:12:53* Test Item Value Reference Range Interpretation Comme nts NT-proBNP (test code = 9091356930) 592 pg/mL See_Comment H [Automated message] The system which generated this result transmitted reference range: <=125. The reference range was not used to interpret this result as normal/abnormal. CANDY (test code = CANDY) Biotin has been reported to cause a negative bias, interpret results relative to patient's use of biotin. Lab Interpretation (test code = 50441-0) Abnormal [facility]anoTOTAL IRON BINDING [id number] 23:12:53 * Test Item Value Reference Range Interpretation Comme nts TIBC (test code = 5359852391) 326 ug/dL 250-410 Lab Interpretation (test cod e = 82760-0) Normal [facility]anoGLYCOSYLATED HEMOGLOBIN (A1C)2020-10-22 22:38:18* Test Item Value Reference Range Interpretation Comme nts HGB A1C (test code = 4548-4) 7.0 % 4.0-5.7 H CANDY (test code = CANDY) Reference RangesNormal: <5.7%Prediabetes: 5.7 - 6.4%Diabetes: > 6.5% Lab Interpretation (test code = 53751-7) Abnormal [facility]anoCREATINE [id number] 21:46:35* Test Item Value Reference Range Interpretation Comme nts CK (test code = 3291521743) 122 U/L 33-194 Lab Interpretation (test cod e = 66581-9) Normal [facility]ERR[facility]IN [id number] 21:38:35* Test Item Value Reference Range Interpretation Comme nts FERRITIN (test code = 8107689035) 51.8 ng/mL 18.0-464.0 CANDY (test code = CANDY) Biotin has been reported to cause a negative bias, interpret results relative to patient's use of biotin. Lab Interpretation (test code = 91892-1) Normal [facility]anoDR[facility] PANEL 2 [id number] 21:37:33* Test Item Value Reference Range Interpretation Comme nts AMPHET (test code = 2642302386) Negative Negative VIDAL U (test code = 2755529914) Negative Negative BENZO U (test code = 3271692383) Negative Negative Cocaine Metabolite (test code = 3997714198) Presumptive Positive Negative A METHADONE (test code = 3147468387) Negative Negative OPIATES (test code = 3993857968) Negative Negative PCP (test code = 3119021253) Negative Negative THC (test code = 3400909784) Negative Negative CANDY (test code = CANDY) [...] legal testing). Lab Interpretation (test code = 86517-6) Abnormal [facility]PHOSPHORUS2021-07-21 21:17:04* Test Item Value Reference Range Interpretation Comme nts PHOSPHORUS (test code = 8632100384) 5.3 mg/dL 2.5-5.0 H Lab Interpretation (test cod e = 99453-5) Abnormal [facility]anoTOTAL IRON BINDING [id number] 21:11:47 * Test Item Value Reference Range Interpretation Comme nts TIBC (test code = 1724455351) 329 ug/dL 250-410 % FE SAT (test code = 8564392177) 18 % 20-50 L Lab Interpretation (test cod e = 26798-8) Abnormal [facility]anoPhosphorus [id number] 20:56:00* Test Item Value Reference Range Interpretation Comme nts PHOSPHORUS (test code = 4112693467) 5.3 mg/dL 2.5-5.0 H Lab Interpretation (test cod e = 30907-0) Abnormal [facility]anoURIC [id number] 20:55:40* Test Item Value Reference Range Interpretation Comme nts URIC ACID (test code = 1238387178) 11.0 mg/dL 3.6-8.0 H Lab Interpretation (test cod e = 26220-1) Abnormal [facility]anoIRON2021-07-21 20:55:24* Test Item Value Reference Range Interpretation Comme nts IRON (test code = 8200117892) 58 ug/dL 50-160 Lab Interpretation (test cod e = 34967-6) Normal [facility]anoCREATININE, URINE [id number] 20:52:05* Test Item Value Reference Range Interpretation Comme nts CREAT U (test code = 0863809903) 131.8 mg/dL [facility]anoSODIUM, URINE [id number] 20:36:37* Test Item Value Reference Range Interpretation Comme nts NA URINE (test code = 2484767368) 31 mmol/L [facility]anoPOTASSIUM, URINE [id number] 20:36:37* Test Item Value Reference Range Interpretation Comme nts K URINE (test code = 8307008982) 24.0 mmol/L [facility]anoURINALYSIS2021-07-21 20:22:33* Test Item Value Reference Range Interpretation Comme nts APPEARANCE (test code = 9001975776) Hazy Clear A COLOR (test code = 6318975277) Yellow Yellow PH (test code = 1101183633) 4.8-8.0 SP GRAVITY (test code = 7473650050) 1.003-1.030 GLU U QUAL (test code = 7272844497) 150 mg/dL Normal A BLOOD (test code = 0458858178) 1+ Negative A KETONES (test code = 9029184023) Negative Negative PROTEIN (test code = 2887-8) 500 mg/dL Negative A UROBILIN (test code = 6456306180) Normal Normal BILIRUBIN (test code = 1958949411) Negative Negative NITRITE (test code = 7225267914) Negative Negative LEUK MING (test code = 7104985560) Negative Negative RBC/HPF (test code = 8998503869) See_Comment [Automated [employer]] The system which generated this result transmitted reference range: 0 - 3 HPF. The reference range was not used to interpret this result as normal/abnormal. WBC/HPF (test code = 5831681705) See_Comment [Automated [employer]] The system which generated this result transmitted reference range: 0 - 5 HPF. The reference range was not used to interpret this result as normal/abnormal. BACTERIA (test code = 6556107777) Few Negative A MUCOUS (test code = 1145396865) Slight Negative LPF A AMORPHOUS (test code = 9194469746) Few Rare HPF A SQ EPITH (test code = 3543961959) HPF YEAST BUD (test code = 8126223721) See_Comment H [Automated messa ge] The system which generated this result transmitted reference range: <=1 HPF. The reference range was not used to interpret this result as normal/abnormal. SPERM (test code = 3375657024) See_Comment [Automated [employer]] The system which generated this result transmitted reference range: <=1 HPF. The reference range was not used to interpret this result as normal/abnormal. HYAL CAST (test code = 4251875624) See_Comment [Automated messa ge] The system which generated this result transmitted reference range: <=2 LPF. The reference range was not used to interpret this result as normal/abnormal. Lab Interpretation (test code = 19896-9) Abnormal [facility]anoCOVID-19 (ID NOW RAPID TESTING)2020-10-22 16:44:47* Test Item Value Reference Range Interpretation Comme nts SARS-CoV-2 Rapid ID NOW (test code = 02083-0) Not Detected Not Detected CANDY (test code = CANDY) ID NOW COVID-19 As say is an isothermal nucleic acid amplification test intended for the qualitative detection of nucleic acid from SARS-CoV-2 viral RNA in nasopharyngeal (HOME COMFORT ADVISOR) specimens. It is used under Emergency Use [...] clinically indicated. Lab Interpretation (test code = 78781-3) Normal [facility]anoTROPONIN [id number] 16:31:45* Test Item Value Reference Range Interpretation Comments TROPONIN I (test code = 9889255680) 0.014 ng/mL See_Comment [Automated message] The system [...] of biotin. Lab Interpretation (test code = 16628-1) Normal [facility]anoMAGNESIUM2021-07-21 16:20:42* Test Item Value Reference Range Interpretation Comme nts MAGNESIUM (test code = 1079394580) 2.2 mg/dL 1.7-2.4 Lab Interpretation (test cod e = 18652-3) Normal [facility]anoCOMP. METABOLIC PANEL (19485)2020-10-22 15:35:30* Test Item Value Reference Range Interpretation Comme nts NA (test code = 0428745133) 141 mmol/L 135-145 K (test code = 1543179874) 4.0 mmol/L 3.5-5.0 CL (test code = 8522075884) 104 mmol/L 98-108 CO2 TOTAL (test code = 3290365647) 27 mmol/L 23-31 AGAP (test code = 1877880720) 2-16 BUN (test code = 4328210849) 80 mg/dL 7-23 H GLUCOSE (test code = 5037305720) 143 mg/dL 70-110 H CREATININE (test code = 8151529783) 6.40 mg/dL 0.60-1.25 H TOTAL BILI (test code = 7039272841) 0.4 mg/dL 0.1-1.1 CALCIUM (test code = 9547837079) 9.4 mg/dL 8.6-10.6 T PROTEIN (test code = 5546276496) 7.8 g/dL 6.3-8.2 ALBUMIN (test code = 2010529748) 4.1 g/dL 3.5-5.0 ALK PHOS (test code = 2023265197) 115 U/L 34-122 ALTv (test code = 1742-6) 13 U/L 5-50 AST(SGOT) (test code = 9617519567) 16 U/L 13-40 eGFR (test code = 6138360762) mL/min/1.73m2 CANDY (test code = CANDY) Association [...] imaging tests). Lab Interpretation (test code = 25101-1) Abnormal [facility] WITH [id number] 15:26:32* Test Item Value Reference Range Interpretation Comme nts WBC (test code = 6690-2) See_Comment [[employer]] The system which generated this result transmitted reference range: 4.20 - 10.70 10*3/?L. The reference range was not used to interpret this result as normal/abnormal. RBC (test code = 789-8) See_Comment L [[employer]ated [employer]] The system which generated this result transmitted [...] 33.0 g/dL 31.2-35.0 RDW-SD (test code = 33585-7) 43.7 fL 38.5-51.6 RDW-CV (test code = 788-0) 13.2 % 12.1-15.4 PLT (test code = 777-3) See_Comment [Automated messa ge] The system which generated this result transmitted reference range: 150 - 328 10*3/?L. The reference range was not used to interpret this result as normal/abnormal. MPV (test code = 26711-8) 10.2 fL 9.8-13.0 NRBC/100 WBC (test code = 1365831277) See_Comment [Automated [employer] ssage] The system which generated this result transmitted reference range: 0.0 - 10.0 /100 WBCs. The reference range was not used to interpret this result as normal/abnormal. NRBC x10^3 (test code = 6880950989) <0.01 See_Comment [Automated messa ge] The system which generated this result transmitted reference range: 10*3/?L. The reference range was not used to interpret this result as normal/abnormal. GRAN MAT (NEUT) % (test code = 770-8) 71.3 % IMM GRAN % (test code = 2049339349) 0.40 % LYMPH % (test code = 736-9) 15.5 % MONO % (test code = 5905-5) 9.0 % EOS % (test code = 713-8) 3.3 % BASO % (test code = 706-2) 0.5 % GRAN MAT x10^3(ANC) (test code = 8084071316) 5.77 10*3/uL 1.99-6.95 IMM GRAN x10^3 (test code = 4887288724) 0.03 10*3/uL 0.00-0.06 LYMPH x10^3 (test code = 731-0) 1.25 10*3/uL 1.09-3.23 MONO x10^3 (test code = 742-7) 0.73 10*3/uL 0.36-1.02 EOS x10^3 (test code = 711-2) 0.27 10*3/uL 0.06-0.53 BASO x10^3 (test code = 704-7) 0.04 10*3/uL 0.01-0.09 Lab Interpretation (test code = 97711-7) Abnormal [facility] Notes Date/Time Note Provider Source 2023-11-17 21:33:00 [id number] [facility] [id number] [place] [address] PATIENT NAME: ARNOLD KOENIG ADMIT DATE: 11/13/23 ACCOUNT NO: [id number] ROOM NO: [id number] AGE: 58 REPORT TYPE: 360 - QUERY RESPONSE DOCUMENT SEX: M ADMITTING PHYSICIAN: Koby Low MD ATTENDING PHYSICIAN: Koby Low MD Provider Query QUERY TEXT: Condition General 360MD Query related questions should be directed to: JANKI Valle RN CDI [email or web address] Based on your clinical judgment, can [...] PM at 2133 PATIENT NAME: ARNOLD KOENIG [facility] 2023-11-14 21:52:00 [facility] ([facility] Hospitalist Discharge Summary REPORT#:[id number] REPORT STATUS: Signed REPORT INITIALIZATION DATE:11/14/23 TIME:2151 PATIENT: ARNOLD KOENIG UNIT #: [id number] ROOM/BED: [address] : [birth year] AGE: 58 SEX: M [...] Musculoskeletal: normal inspection, painless range of motion Neuro/RETAIL EVENT COORDINATOR: alert Skin: abnormal color, abnormal temperature, intact Psychiatry: normal affect, normal judgment/insight, normal mood, not homicidal, not suicidal Discharge Instructions PCP PCP follow-up: PCP: Zeke Russo DO Additional Discharge Routines: None at 1941 RPT #: [id number] END OF REPORT [facility] 2023-11-14 19:02:00 [facility] Hospitalist Progress Note REPORT#:[id number] REPORT STATUS: Signed REPORT INITIALIZATION DATE:11/14/23 TIME:1901 PATIENT: ARNOLD KOENIG UNIT #: [id number] ROOM/BED: [address] : [birth year] AGE: 58 SEX: M [...] Musculoskeletal: normal inspection, painless range of motion Neuro/RETAIL EVENT COORDINATOR: alert Skin: abnormal color, abnormal temperature, intact [...] (Auto) (20.5 - 51.1 %) 5.6 L Heard % (Auto) (1.7 - 9.3 %) 7.5 Eos % (Auto) (0.0 - 6.0 %) 0.3 Baso % (Auto) (0.0 - 2.0 %) 0.2 Neut # (Auto) (1.8 - 7.6 K/mm3) 16.8 H Lymph # (Auto) (0.6 - 3.0 K/mm3) 1.1 Heard # (Auto) (0.2 - 1.5 K/mm3) 1.5 [...] is full code. at 1904 RPT #: [id number] END OF REPORT [facility] 2023-11-14 10:42:00 [facility] Nephrology Progress Note REPORT#:[id number] REPORT STATUS: Signed REPORT INITIALIZATION DATE:11/14/23 TIME:104 PATIENT: ARNOLD KOENIG UNIT #: [id number] ROOM/BED: [address] : [birth year] AGE: 58 SEX: M ATTEND: Koby Low MD ADM AUTHOR: Milton Reyna MD REPT SERVICE DT/TIME: 11/14/23 1042 * ALL edits or amendments must be made on the electronic/computer document * Subjective Chief complaint: Seen in dialysis, tolerating 3.5 L UF well Still complaining of left leg pain HPI: 58-year-old with HTN/DM/ESRD on HD at [place] with Dr. Nguyen Presenting with left leg pain Renal consulted for dialysis Denies any shortness of breath Objective General VS/I O: Vital Signs: Date Time Temp Pulse Resp B/P B/P Pulse O2 O2 Flow FiO2 Mean Ox Delivery Rate 11/13 918 98.0 82 16 118/60 98 Room air [...] , more over garcia , non RLE Neuro/RETAIL EVENT COORDINATOR: alert, oriented X 3, CN II-XII intact [...] - 1.2 INR Unit) 1.21 H PTT ([place]) (26 - 35 SECONDS) 30.6 PT Patient/Control [...] - 51.1 %) 5.6 L 6.6 L Heard % (Auto) (1.7 - 9.3 %) 7.5 8.4 Eos % (Auto) (0.0 - 6.0 %) 0.3 0.9 Baso % (Auto) (0.0 - 2.0 %) 0.2 0.2 Neut # (Auto) (1.8 - 7.6 K/mm3) 16.8 H 13.7 H Lymph # (Auto) (0.6 - 3.0 K/mm3) 1.1 1.1 Heard # (Auto) (0.2 - 1.5 K/mm3) 1.5 [...] Continue antibiotics regimen at 1044 RPT #: [id number] END OF REPORT [facility] 2023-11-13 21:04:00 [facility] ([facility]) Hospitalist History Physical REPORT#:[id number] REPORT STATUS: Signed REPORT INITIALIZATION DATE:11/13/23 TIME:2103 PATIENT: ARNOLD KOENIG UNIT #: [id number] ROOM/BED: [address] : [birth year] AGE: 58 SEX: M ATTEND: Koby Low MD ADM AUTHOR: Koby Low MD REPT SERVICE DT/TIME: 11/13/232103 * ALL edits or amendments must be made on the electronic/computer document * History of Present Illness HPI Chief complaint: LLE pain PCP: PCP: Zeke Russo DO HPI: Mr. Koenig is a 58-year-old male with a history of end-stage renal disease on hemodialysis who presented to the hospital with left lower extremity redness and swelling. Patient was initiated on vancomycin and Ancef from the [facility]. He reported subjective fever and chills at [...] Musculoskeletal: normal inspection, painless range of motion Neuro/RETAIL EVENT COORDINATOR: alert Skin: abnormal color, abnormal temperature, intact [...] (Auto) (20.5 - 51.1 %) 6.6 L Heard % (Auto) (1.7 - 9.3 %) 8.4 Eos % (Auto) (0.0 - 6.0 %) 0.9 Baso % (Auto) (0.0 - 2.0 %) 0.2 Neut # (Auto) (1.8 - 7.6 K/mm3) 13.7 H Lymph # (Auto) (0.6 - 3.0 K/mm3) 1.1 Heard # (Auto) (0.2 - 1.5 K/mm3) 1.4 Eos # (Auto) (0.0 - 0.4 K/mm3) 0.1 Baso # (Auto) (0.0 - 0.2 K/mm3) 0.0 Abs Immat Gran (auto) (0.00 - 0.03 x10 3/uL) 0.08 H Immature Gran % (0.0 - 5.0 %) 0.5 Nucleated RBC % (0.0 - 1.0 /100WBC%) 0.0 11/12 08 1600 1600 Serology Hep Bs Antigen (NEGATIVE [...] status: full code at 1902 RPT #: [id number] END OF REPORT [facility] 2023-11-13 16:27:00 [facility]) Nephrology Consultation Note REPORT#:[id number] REPORT STATUS: Signed REPORT INITIALIZATION DATE:11/13/23 TIME:1626 PATIENT: ARNOLD KOENIG UNIT #: [id number] ROOM/BED: [address] : [birth year] AGE: 58 SEX: M ATTEND: Koby Low MD ADM AUTHOR: Milton Reyna MD REPT SERVICE DT/TIME: 11/13/231626 * ALL edits or amendments must be made on the electronic/computer document * History of Present Illness Requesting clinician: ER Reason for consult: Left leg cellulitis HPI: 58-year-old with HTN/DM/ESRD on HD at [place] with Dr. Nguyen Presenting with left leg [...] , more over garcia , non RLE Neuro/RETAIL EVENT COORDINATOR: alert, oriented X 3, CN II-XII intact [...] this consult, will follow along at 1042 RPT #: [id number] END OF REPORT [facility] 2023-11-13 15:31:00 [facility] ([facility]) EMERGENCY PROVIDER REPORT REPORT#:[id number] REPORT STATUS: Signed DATE:11/13/23 TIME:1531 PATIENT: ARNOLD KOENIG UNIT #: [id number] ROOM/BED: [address] : [birth year] AGE: 58 SEX: M PCP PHYS: Zeke Russo DO SERVICE AUTHOR: Joni Barnes MD * ALL edits or amendments must be made on the electronic/computer document * HPI-Extremity Prob Lower General Initial Greet Date/Time 11/13/23 1508 Presentation Chief Complaint Thigh problem L, Leg problem L Free Text HPI Notes Free Text HPI Notes 58-year-old male presents to the ED as a transfer from [facility] for leg cellulitis and end-stage renal disease requiring dialysis. Patient presented there with left lower extremity redness and swelling. Found to have cellulitis for which patient was treated with Vanco and Ancef. Potassium was 5.1. Lactic was within normal limits. White count white count was 17. Patient states last dialysis was on Tuesday. Patient states he missed a session. Patient states he still does make urine. Patient denies any chest pain shortness of breath diarrhea constipation or fever. Risk-Extremity Prob Lower Risk Stratification Well's Criteria for DVT Well's Criteria for DVT Response Value Active Cancer? No 0 Total 0 Review of Systems ROS Statements All systems rev neg except as marked. Focused Review of Systems Musculoskeletal Reports: Extremity pain, Extremity swelling. Skin Reports: Erythema, Rash. Past Medical History - Adult Stated Complaint NEED DIALYSIS AND CELLULITIS LEFT LOWER LEG Allergies Coded Allergies: No Known Allergies (11/13/23) Smoking status for patients 13 years old or older: Unknown,if ever smoked Physical Exam Vital Signs Vital Signs First Documented: Result Date Time Pulse Ox 96 11/12 1505 B/P 125/71 / 1505 B/P Mean 89 / 1505 O2 Delivery Nasal cannula 11/12 1505 O2 Flow Rate 3 11/12 1505 Temp 97.8 / 1505 Pulse 78 / 1505 Resp 17 / 1505 Last Documented: Result Date Time Pulse Ox 96 11/12 1505 B/P 125/71 /11 1505 B/P Mean 89 /11 1505 O2 Delivery Nasal cannula / 1505 O2 Flow Rate 3 / 1505 Temp 97.8 / 1505 Pulse 78 / 1505 Resp 17 11/12 1505 Review of Vital Signs Reviewed Focused PE General/Const General/Const Awake, Alert, Well appearing Resp/Chest Respiratory/Chest Breath sounds NL, Breath sounds = bilat, No respiratory distress, No rales, No rhonchi, No wheezing Cardiovascular Cardiovascular Heart rate NL, Regular rhythm, Heart sounds NL, Peripheral circulation NL MS Lower Extrem Text/Dict Notes left lower ext leg erythema and redness MS Ankle/Foot Ankle/Foot Inspection NL Skin Skin Color NL, Warm, No swelling Neurologic Neurologic Oriented X3, Speech NL, No motor deficits, No sensory deficits Interpretation Diagnostics Lab Results Interpretation Considerations Independ review imaging, Reviewed prior records Results Microbiology: Date/Time Procedure - Status Source Growth 11/12 154 MRSA Screen - ORD NASAL 11/12 1518 Blood Culture - ORD BLOOD 11/12 1518 Blood Culture - ORD BLOOD Lab Statement Laboratory studies reviewed and considered in the medical decision-making. Imaging Statement Radiographic studies reviewed and considered in the medical decision-making. Lab Imaging Statement Laboratory radiographic studies reviewed and considered in the medical decision-making. Point of Care Testing Pulse Oximetry Pulse Ox % 99 On: Room air Interpretation Interpreted by me, Pulse oximetry normal Re-Evaluation MDM Free Text MDM Notes Free Text MDM Notes Sepsis protocol initiated prior to arrival abx given hyperkalemia cocktail given nephrology consulted Re-Evaluation/Progress Re-Evaluation/Progress Re-Eval Status Improved Pain Re-Evaluation Denies pain ED Course Medication(s) Ordered Medication(s) Ordered: Anti-Infective Agents Sig/Tahmina Start time Last Medication Dose Route Stop Time Status Admin Ceftriaxone Sodium 1,000 MG X1ED STA 11/12 1518 AC Sterile Water 10 ML IV 11/13 0117 Patient Discharge Departure Vital Signs/Condition Vital Signs First Documented: Result Date Time Pulse Ox 96 11/12 1505 B/P 125/71 11/12 1505 B/P Mean 89 11/12 1505 O2 Delivery Nasal cannula 11/12 1505 O2 Flow Rate 3 11/12 1505 Temp 97.8 11/12 1505 Pulse 78 11/12 1505 Resp 17 11/12 1505 Last Documented: Result Date Time Pulse Ox 96 11/12 1505 B/P 125/71 11/12 1505 B/P Mean 89 11/12 1505 O2 Delivery Nasal cannula 11/12 1505 O2 Flow Rate 3 11/12 1505 Temp 97.8 11/12 1505 Pulse 78 11/12 1505 Resp 17 11/12 1505 All vital signs available at the time of this entry have been reviewed. Condition Guarded Clinical Impression Clinical Impression Primary Impression: ESRD (end stage renal disease) Secondary Impressions: Acute cellulitis, Cellulitis, leg, Hyperkalemia Disposition Decision Hospitalize Hosp Physician Name Andrew Cox MD Hosp Physician Hospitalist Request Time 1544 Request Date 11/13/23 )( Accepts Hospitalization Yes )( Reason for Hospitalization esrd )( Accepted Time 1545 )( Accepted Date 11/13/23 Call Information will see patient Discharge/Care Plan Counseled Regarding Diagnosis, Lab results, Imaging studies, Need for admission Critical Care Time Spent (minutes): 45 Services Performed Patient management by me, Time spent at bedside, Reviewing test results, Reviewing imaging, Discussing patient care, Documentation in record, Time with fam/surrogate Separately billable procedures excluded from time. Patient was critically ill due to: leg cellultitis esrd hyperkalemia My treatment and management were: hyperkalemia Quality Measures BP F/U for HTN Patient admitted 12-Lead ECG for CP Performed documented Sepsis Bundle Initiated 18 years or older, Blood cultures ordered, IV antibiotics ordered, IV fluid bolus ordered, Transf from another hosp (sepsis already intiated ) at 1130 RPT #: [id number] END OF REPORT [facility] 2023-11-11 13:26:24 Pt given printed and verbal [...] in no apparent distress Juju Arias RN [facility] 2023-11-11 09:57:00 Patient states: "I didn't do anything to my left leg but it hurts from the knee down since Tuesday. I'm a dialysis patient and supposed to have my session today but I didn't go yet because I cannot take the pain anymore." Charlotte Rider RN [facility] 2023-11-10 12:00:00 ASSESSMENT SUMMARY ARNOLD KOENIG is [...] verbalized understanding to all. 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 kidney disease, or end stage renal mqztmhdO07.9 - Bipolar disorder, flumsndjdvzA38.69 - Type 2 diabetes mellitus with other specified npjhkhuwidruL19.22 - Type 2 diabetes mellitus with diabetic chronic kidney svbmxpsA78.319 - Type 2 diabetes mellitus with unspecified diabetic retinopathy without macular gpeffQ56.6 - End stage renal sellffaY08.01 - Morbid (severe) obesity due to excess klurmoneA07.41 - Body mass index [BMI] 40.0-44.9, cyewqT21.3592 - Type 2 diabetes mellitus with proliferative diabetic retinopathy without macular edema, left eyeE26.1 - Secondary tmototlbddmtflnzncJ46.81 - Secondary hyperparathyroidism of renal oiverbI89.4 - FPC (current) use of jrcuafsD61.81 - Unsteadiness on feetE78.5 - Hyperlipidemia, rvkcrplftzrN55.00 - Insomnia, unspecified D2Me INTAKE CHECKLIST (completed [...] patient use home health, physical therapy or fdc services?: No New orders, referrals, or any [...] - Follow up with cardiologyDISCUSSED: Discuss taking customer support technician weights and calling their doctors if weight [...] nephrologyACTION: Confirm that the patient has a emt paramedic Dx: Z99.2 - Dependence on renal dialysis [...] mellitus with other specified complication Notes for E1169: - Patient with Type II DM with: [...] up with PCP, endocrinology Dx: Z79.4 - FPC (current) use of insulin Notes for Z79.4: - mobile practice lead use of insulin - Type II DM [...] with PCP, endocrinologyACTION: Confirm follow up with exterior interior specialist to prevent vision loss Dx: E11. - Type 2 diabetes mellitus with diabetic chronic kidney disease Notes for : - Patient with Type II DM with: [...] the video platform used during the visit: hi5 Video Room Please record the total amount [...] date of service) 75 or more minutes Kierra Boswell -- [facility] 2022-05-06 13:09:00 [id number] [place] [id number] PATIENT NAME: ARNOLD KOENIG ADMIT DATE: 03/30/22 ACCOUNT NO: [id number] [facility]GE[facility] 57 REPORT TYPE: DISCHARGE SUMMARY REPORT SEX: M ADMITTING PHYSICIAN:Tommy Sosa MD ATTENDING PHYSICIAN:Tommy Sosa MD ADMISSION DATE: 03/30/2022 18:47:00 DISCHARGE [...] was greater than 30 minutes. Dictated By: Tommy Sosa MD Date Dictated: 05/06/2022 13:09:33 Date Transcribed: 05/06/2022 22:23:41 /MARCIA Receipt ID: [id number] Authenticated by Tommy Sosa MD On 05/10/2022 12:31:28 PM at 1231 PATIENT NAME: ARNOLD KOENIG [facility] 2022-03-31 17:04:00 [facility] Nephrology Progress Note REPORT#:[id number] REPORT STATUS: Signed DATE:03/31/22 TIME: 1704 PATIENT: ARNOLD KOENIG UNIT #: [id number] ROOM/BED: [address] : 67 AGE: 56 SEX: M ATTEND: Tommy Sosa MD ADM AUTHOR: Jesús Francisco MD * ALL edits or amendments must be made on the electronic/computer document * Subjective HPI: The patient is a 56-year-old male with a past medical history of insulin dependent diabetes mellitus,ESRD MWF who was transferred from [facility] for hypoglycemia and passing out and having [...] rhythm Respiratory: aerating well, clear to auscultation Neuro/RETAIL EVENT COORDINATOR: alert, oriented X 3 Psychiatry: normal mood, [...] % (Auto) (14 - 44 %) 20.0 Heard % (Auto) (4 - 13 %) 8.1 Eos % (Auto) (0 - 6 %) 4.7 Baso % (Auto) (0 - 2 %) 0.3 Neut # (Auto) (2.0 - 7.6 K/mm3) 5.20 Lymph # (Auto) (1.0 - 3.8 K/mm3) 1.56 Heard # (Auto) (0.1 - 0.8 K/mm3) 0.63 [...] meds on return home at 1911 RPT #:[id number] [facility] 2022-03-30 09:08:00 [facility] ([facility] Nephrology Progress Note REPORT#:[id number] REPORT STATUS: Signed DATE:03/30/22 TIME: 907 PATIENT: ARNOLD KOENIG UNIT #: [id number] ROOM/BED: [address]: [address] AGE: 56 SEX: M ATTEND: Tommy Sosa MD ADM AUTHOR: Jesús Francisco MD * ALL edits or amendments must be made on the electronic/computer document * Subjective HPI: The patient is a 56-year-old male with a past medical history of insulin dependent diabetes mellitus,ESRD MWF who was transferred from [facility] for hypoglycemia and passing out and having [...] Flow FiO2 Mean Ox Delivery Rate 03/30 0827 98.8 72 18 162/83 109.0 98 Room air 03/30 0440 98.4 71 18 132/56 81.1 97 Room air 03/30 0433 98.4 18 03/30 0012 98.6 83 18 131/61 84.1 98 Room air 03/29 2220 97.2 82 20 177/68 100 Room air 03/29 1917 97.3 79 18 145/93 0.0 98 Room air 03/29 1900 97.2 83 20 217/85 100 Room air [...] rhythm Respiratory: aerating well, clear to auscultation Neuro/RETAIL EVENT COORDINATOR: alert, oriented X 3 Psychiatry: normal mood, normal judgment/insight Results Findings/Data: Laboratory Tests 03/30 03/29 03/29 03/29 0611 1916 1800 1800 Chemistry Sodium (137 - [...] (14 - 44 %) 19.7 9.2 L Heard % (Auto) (4 - 13 %) 7.3 5.0 Eos % (Auto) (0 - 6 %) 3.1 0.5 Baso % (Auto) (0 - 2 %) 0.2 0.2 Neut # (Auto) (2.0 - 7.6 K/mm3) 5.82 8.64 H Lymph # (Auto) (1.0 - 3.8 K/mm3) 1.65 0.94 L Heard # (Auto) (0.1 - 0.8 K/mm3) 0.61 [...] 0556 Report Impression - Status: SIGNED Entered: 03/30/2022 0627 IMPRESSION: 1. No radiographic evidence of acute [...] meds on return home at 0913 RPT #:[id number] END OF REPORT [facility] 2022-03-29 20:33:00 [facility] ([facility]) DT PROGRESS NOTE REPORT#:[id number] REPORT STATUS: Signed DATE:03/29/22 TIME: 2032 PATIENT: ARNOLD KOENIG UNIT #: [id number] ROOM/BED: [address] : 67 AGE: 56 SEX: M ATTEND: Tommy Sosa MD ADM AUTHOR: Tommy Sosa MD * ALL edits or amendments must be made on the electronic/computer document * Progress Note Progress Note H P DICTATED [id number] TOMMY SOSA MD at 2033 RPT #:[id number] [facility] 2022-03-29 20:33:00 [id number] [place] [id number] PATIENT NAME: ARNOLD KOENIG ADMIT DATE: 03/30/22 ACCOUNT NO: [id number] ROOM NO: [facility] AGE: 57 REPORT TYPE: HISTORY AND PHYSICAL SEX: M ADMITTING PHYSICIAN:Tommy Sosa MD ATTENDING PHYSICIAN:Tommy Sosa MD ADMISSION DATE: 03/29/2022 17:05:00 CHIEF COMPLAINT: 1. Missed hemodialysis. 2. Hypoglycemia. HISTORY OF PRESENT ILLNESS: This is a 56-year-old male who was transferred from [facility] secondary to hypoglycemic episode and passing out. The patient states that he missed his dialysis last Tuesday and since then has been feeling sick and vomiting. The patient took his diabetes medicines, i.e., insulin, but was not able to eat due to the vomiting episode and was noted to be hypoglycemic. He was seen at the [facility] and was transferred for hemodialysis as [...] the treatment plan as outlined by the emt paramedic. Otherwise, if his labs appear stable and he has been cleared by nephrology, I will most likely discharge him home tomorrow morning. Total time spent in this admission is in excess of 70 minutes. Dictated By: Tommy Sosa MD Date Dictated: 03/29/2022 20:33:36 Date Transcribed: 03/29/2022 20:59:50 /MCKAYLA Receipt ID: [id number] Authenticated by Tommy Sosa MD On 04/07/2022 11:00:24 AM at 1100 PATIENT NAME: ARNOLD KOENIG [facility] 2022-03-29 18:37:00 [facility] Nephrology Consultation Note REPORT#:[id number] REPORT STATUS: Signed DATE:03/29/22 TIME: 1837 PATIENT: ARNOLD KOENIG UNIT #: [id number] ROOM/BED: [address] : 67 AGE: 56 SEX: M ATTEND: Tommy Sosa MD ADM AUTHOR: Jesús Francisco MD * ALL edits or amendments must be made on the electronic/computer document * History of Present Illness Requesting clinician: Dr Doug Escobar Reason for consult: Esrd HPI: The patient is a 56-year-old male with a past medical history of insulin dependent diabetes mellitus,ESRD MWF who was transferred from [facility] for hypoglycemia and passing out and having [...] rhythm Respiratory: aerating well, clear to auscultation Neuro/RETAIL EVENT COORDINATOR: alert, oriented X 3 Psychiatry: normal mood, [...] (Auto) (14 - 44 %) 9.2 L Heard % (Auto) (4 - 13 %) 5.0 Eos % (Auto) (0 - 6 %) 0.5 Baso % (Auto) (0 - 2 %) 0.2 Neut # (Auto) (2.0 - 7.6 K/mm3) 8.64 H Lymph # (Auto) (1.0 - 3.8 K/mm3) 0.94 L Heard # (Auto) (0.1 - 0.8 K/mm3) 0.51 [...] on iv hydralazine prn at 2119 RPT #:[id number] [facility] 2022-03-29 17:16:00 [facility] ([facility]) EMERGENCY PROVIDER REPORT REPORT#:[id number] REPORT STATUS: Signed DATE:03/29/22 TIME: 171 PATIENT: ARNOLD KOENIG UNIT #: [id number] ROOM/BED: [address] AGE: 56 SEX: M PCP PHYS: Undefined Provider SERVICE AUTHOR: Shawn Camacho DO LOCATION: [facility] * ALL edits or amendments must be made on the electronic/computer document * HPI-General Illness Free Text HPI Notes Free Text HPI Notes Patient is a 56-year-old male with a past medical history of diabetes, end-stage renal disease receiving hemodialysis Tuesday presenting with complaints of altered mental status hypoglycemia and having missed dialysis. Of note, patient presents as a transfer from [facility]. Patient was noted to have low blood sugar measuring in the low 50s and had acutely lost consciousness. The patient was taken to [facility] ER where he had been given oral [...] 76 03/29 1708 Resp 16 03/29 1708 Review of Vital Signs Reviewed Free Text [...] 98 On: Room air Interpretation Interpreted by ma, Pulse oximetry normal Time 1708 Re-Evaluation MDM [...] Hypoglycemia Disposition Decision Admit Admit Physician Name Tommy Sosa MD Admit Physician Hospitalist Request Time 1716 Request Date 03/29/22 )( Admission Accepts Yes )( Accepted Time 1717 )( Accepted Date 03/29/22 Call Information will see patient at [address] [facility] #:[id number] END OF REPORT [facility]
[2024-01-15 15:24] LABS: Absolute Basophils 0.1 K/uL (0-0.5); Absolute Eosinophils 0.2 K/uL (0-0.5); Absolute Lymphocytes (CBC) 1.5 K/uL (0.7-4.9); Absolute Monocytes 1.2 K/uL (0.1-1.3); Absolute Neutrophil 11.9 K/uL (1.8-8.0); Basophils % 0.7 % (0-1.3); Eosinophils % 1.2 % (0-4.4); Hematocrit 29.4 % (39.6-49.0); Hemoglobin 9.4 g/dL (13.6-17.9); MCH 31.4 pg (27.0-35.0); MCV 98.3 fL (80-100); MPV 7.8 fL (7.6-11.3); Monocytes % 8.3 % (3.3-12.3); Neutrophils % 79.8 % (41.7-73.7); Platelets 284 thou/uL (152-406); RBC Red Blood Cell Count 2.99 M/uL (4.33-5.43); Red Cell Distribution Width 16.8 % (12.1-15.2)
[2024-01-15 15:36] LABS: PT Prothrombin Time 12.7 SECONDS (9.4-12.5); PTT, Activated Partial Thromb 29.8 SECONDS (24.3-36.9); Protime INR 1.14
--- NOTE | 2024-01-15 15:40 | RAD REPORT ---
Exam:Foot Left 3 View CLINICAL HISTORY: Left foot pain FINDINGS: No fracture or dislocation seen Soft tissue ulceration right foot. No adjacent bony destruction seen. Large calcaneal spur. Vascular calcifications. Edema within the subcutaneous tissues
[2024-01-15 15:43] LABS: Albumin 3.2 g/dL (3.4-5.0); Albumin/Globulin Ratio 0.7 (1.1-1.8); Alkaline Phosphatase 89 U/L (45-117); Anion Gap 12.6 mEq/L (5.0-15.0); BUN Blood Urea Nitrogen 46 mg/dL (7-18); Bicarbonate 24 mEq/L (21-32); Bilirubin Total 0.3 mg/dL (0.2-1.0); Globulin 4.4 g/dL (2.3-3.5); Glomerular Filtration Rate 7 ml/min (=/>90); Glucose Level 183 mg/dL (74-106); Potassium 5.6 mEq/L (3.5-5.1); Protein, Total 7.6 g/dL (6.4-8.2); Sodium Level 131 mEq/L (136-145)
[2024-01-15 15:44] LABS: ALT/SGPT < 14 U/L (16-61); AST/SGOT < 10 U/L (15-37)
[2024-01-15] MEDS ORDERED: NA CHLORIDE 0.9% 500 ML ONE (15:49)
[2024-01-15] MEDS ORDERED: NA CHLORIDE 0.9% 250 ML ONE (15:49)
[2024-01-15] MEDS ORDERED: VANCOMYCIN 1 GM/VIAL ONE (15:49)
--- NOTE | 2024-01-15 15:58 | EDPHYS ---
Physician Documentation [facility] Name: Wild Koenig Age: 58 yrs Sex: Male : 1965 Arrival Date: 01/15/2024 Time: 14:10 Bed 15 Private MD: ED Physician Magdiel Conte HPI: 01/14 15:55 This 58 yrs old Male presents to ER via Wheelchair with complaints of Wound kb Infection. 15:55 Pt is a 58 year old male who presents for pain to left foot with malaise and bodyaches. kb States this is how he felt last time he had an infection. Pt had "tissue removed from that heel" 1.[address] Quintero and was supposed to follow up with wound care, but hasn't been able to get that set up yet. States he developed pain and malaise about 4 days ago. Denies fever, but states he hasn't checked it . Historical: - Allergies: 14:30 No Known Allergies; ll1 - PMHx: 14:30 Anxiety; chronic back pain; Congestive heart failure; Depression; Diabetes - IDDM; ll1 Hypertension; dialysis (right upper arm fistula); - PSHx: 14:30 right upper arm fistula; ll1 - Immunization history:: Adult Immunizations up to date. - Infectious Disease History:: Denies. - Social history:: Smoking status: Patient denies any tobacco usage or history of. ROS: 15:38 Constitutional: As per HPI kb Exam: 15:38 Constitutional: This is a well developed, well nourished patient who is awake, alert, kb and in no acute distress. Head/Face: Normocephalic, atraumatic. ENT: Moist Mucous membranes Cardiovascular: Regular rate Respiratory: Respirations even and unlabored. No increased work of breathing. Talking in full sentences Abdomen/GI: Soft, non-tender. No distention Neuro: Awake and alert, GCS 15, oriented to person, place, time, and situation. Moves all extremities. Normal gait. 15:38 Skin: open wound to left heel with purulent drainage. 15:52 ECG was reviewed by the Attending Physician. kb Vital Signs: 14:31 BP 101 / 48; Pulse 73; Resp 18; Temp 97.1; Pulse Ox 93% on R/A; Weight 133.81 kg; ll1 Height 5 ft. 9 in. ; Pain 8/10; 15:30 BP 112 / 44; Pulse 64; Resp 12; Pulse Ox 90% on R/A; cm10 16:30 BP 120 / 59; Pulse 63; Resp 16; Pulse Ox 93% on R/A; cm10 17:30 BP 123 / 55; Pulse 65; Resp 16; Pulse Ox 92% on R/A; cm10 14:31 Body Mass Index 43.56 (133.81 kg, 175.26 cm) ll1 14:31 Pain Scale: Adult ll1 MDM: 14:15 Patient medically screened. kb 15:51 Data reviewed: vital signs, nurses notes. kb 15:54 Differential diagnosis: cellulitis, wound infection, osteomyelitis. Consideration of kb Admission/Observation Patient was admitted/placed on observation. Escalation of care including admission/observation considered. Management of patient was discussed with the following: Hospitalist: Hospitalist team, pt accepted for admission under Dr Nobles. Denture Processor: Dr Quintero accepts pt for admission. Wants wound care, elevation, vancomycin, and NPO. Counseling: I had a detailed discussion with the patient and/or guardian regarding the historical points, exam findings, and any diagnostic results supporting the discharge/admit diagnosis, lab results, radiology results, the need for further work-up and treatment in the hospital. 01/14 14:31 Order name: Blood Culture Adult (2) kb 01/14 14:31 Order name: CBC with Diff; Complete Time: 15:27 kb 01/14 14:31 Order name: CMP; Complete Time: 15:44 kb 01/14 14:31 Order name: Lactate w/ 2H reflex if indic.; Complete Time: 15:42 kb 01/14 14:31 Order name: Protime (+inr); Complete Time: 15:36 kb 01/14 14:31 Order name: Ptt, Activated; Complete Time: 15:36 kb 01/14 16:58 Order name: Potassium EDMS 01/14 16:58 Order name: CBC with Automated Diff EDMS 01/14 16:58 Order name: CBC with Automated Diff EDMS 01/14 16:58 Order name: CBC with Automated Diff EDMS 01/14 16:58 Order name: CBC with Automated Diff EDMS 01/14 16:58 Order name: CBC with Automated Diff EDMS 01/14 16:58 Order name: Comprehensive Metabolic Panel EDMS 01/14 16:58 Order name: Comprehensive Metabolic Panel EDMS 01/14 16:58 Order name: Comprehensive Metabolic Panel EDMS 01/14 16:58 Order name: Comprehensive Metabolic Panel EDMS 01/14 16:58 Order name: Comprehensive Metabolic Panel EDMS 01/14 16:58 Order name: Lipid Profile EDMS 01/14 16:58 Order name: Lipid Profile EDMS 01/14 16:58 Order name: Magnesium EDMS 01/14 16:58 Order name: Magnesium EDMS 01/14 16:58 Order name: Magnesium EDMS 01/14 16:58 Order name: Magnesium EDMS 01/14 16:58 Order name: Magnesium EDMS 01/14 16:58 Order name: Phosphorus EDMS 01/14 16:58 Order name: Phosphorus EDMS 01/14 16:58 Order name: Phosphorus EDMS 01/14 16:58 Order name: Phosphorus EDMS 01/14 16:58 Order name: Phosphorus EDMS 01/14 16:58 Order name: Protime (+INR) EDMS 01/14 16:58 Order name: Protime (+INR) EDMS 01/14 14:35 Order name: Foot Left 3 View XRAY; Complete Time: 15:42 kb 01/14 14:31 Order name: EKG; Complete Time: 14:32 kb 01/14 16:58 Order name: CONS Physician Consult EDMS 01/14 14:31 Order name: Cardiac monitoring; Complete Time: 15:18 kb 01/14 14:31 Order name: EKG - Nurse/Tech; Complete Time: 15:35 kb 01/14 14:31 Order name: IV Saline Lock - Large Bore; Complete Time: 15:18 kb 01/14 14:31 Order name: Labs collected and sent; Complete Time: 15:18 kb 01/14 14:31 Order name: O2 Per Protocol; Complete Time: 15:18 kb 01/14 14:31 Order name: O2 Sat Monitoring; Complete Time: 15:18 kb 01/14 14:31 Order name: Vital Signs; Complete Time: 15:18 kb EC:52 Rate is 69 beats/min. Rhythm is regular. QRS Corbin is Normal. MN interval is normal at kb 134 msec. QRS interval is normal at 82 msec. QT interval is normal at 413 msec. Administered Medications: 15:56 Drug: NS 0.9% IV 500 ml 500 ml IV at 1 bolus once; to be given as a bolus over 30 cm10 minutes Volume: 500 ml; Route: IV; Rate: 1 bolus; Site: left forearm; 16:56 Follow up: Response: No adverse reaction; IV Status: Completed infusion; IV Intake: cm10 500ml 15:57 Drug: vancoMYCIN IVPB 1 grams IVPB once over 2 hrs Route: IVPB; Infused Over: 2 hrs; cm10 Site: left forearm; 18:01 Follow up: Response: No adverse reaction; IV Status: Completed infusion; IV Intake: cm10 250ml Disposition Summary: 01/15/24 15:58 Hospitalization Ordered Notes: Hospitalization Status: Observation kb Provider: Moris Nobles Location: Telemetry/MedSurg (observation) kb Condition: Stable kb Problem: new kb Symptoms: are unchanged kb Bed/Room Type: Standard Room Assignment: [facility](01/15/24 17:09) eb Diagnosis - Foot Laceration/ Open wound of foot kb - Local infection of the skin and subcutaneous tissue, unspecified kb Forms: - Medication Reconciliation Form kb - SBAR form kb - Leadership Thank You Letter kb Addendum: 01/17/2024 17:59 I was immediately available for consultation during this patient's visit. I did not e c2 personally see the patient or discuss the patient with the NELSON. . Signatures: Dispatcher [employer] Marjorie Galindo, ROBSONC FOREMAN/PROJECT MANAGER-Manisha Cortes Lynsay, RN RN ll1 Grecia Arias RN RN cm10 Magdiel Conte MD MD ec2 Corrections: (The following items were deleted from the chart) 01/14 17:09 15:58 kb eb
--- NOTE | 2024-01-15 15:58 | ER ---
Nurse's Notes [facility] Name: Wild Koenig Age: 58 yrs Sex: Male : 1965 Arrival Date: 01/15/2024 Time: 14:10 Bed 15 Private MD: Diagnosis: Foot Laceration/ Open wound of foot;Local infection of the skin and subcutaneous tissue, unspecified Presentation: 01/14 14:31 Chief complaint: Patient states: L foot for 1 week. No known fever. Coronavirus screen: ll1 Client denies travel out of the [place] in the last 14 days. At this time, the client does not indicate any symptoms associated with coronavirus-19. Ebola Screen: Patient denies travel to an Ebola-affected area in the 21 days before illness onset. Initial Sepsis Screen: Does the patient meet any 2 criteria? No. Patient's initial sepsis screen is negative. Does the patient have a suspected source of infection? No. Patient's initial sepsis screen is negative. Risk Assessment: Do you want to hurt yourself or someone else? Patient reports no desire to harm self or others. Onset of symptoms was January 08, 2024. 14:31 Method Of Arrival: Wheelchair ll1 14:31 Acuity: MYNOR 3 ll1 Triage Assessment: 14:30 General: Appears uncomfortable, Behavior is calm, cooperative, appropriate for age. ll1 Pain: Complains of pain in left foot. Musculoskeletal: Reports pain in left foot. Historical: - Allergies: 14:30 No Known Allergies; ll1 - PMHx: 14:30 Anxiety; chronic back pain; Congestive heart failure; Depression; Diabetes - IDDM; ll1 Hypertension; dialysis (right upper arm fistula); - PSHx: 14:30 right upper arm fistula; ll1 - Immunization history:: Adult Immunizations up to date. - Infectious Disease History:: Denies. - Social history:: Smoking status: Patient denies any tobacco usage or history of. Screenin:59 [facility] ED Fall Risk Assessment (Adult) History of falling in the last 3 months, cm10 including since admission No falls in past 3 months (0 pts) Confusion or Disorientation No (0 pts) Intoxicated or Sedated No (0 pts) Impaired Gait Yes (1 pt) Mobility Assist Device Used Yes (1 pt) Altered Elimination No (0 pt) Score/Fall Risk Level 0 - 2 = Low Risk Oriented to surroundings, Maintained a safe environment, Hourly rounding (assess needs \T\ fall precautionary measures) done. Abuse screen: Denies threats or abuse. Denies injuries from another. Nutritional screening: No deficits noted. Tuberculosis screening: No symptoms or risk factors identified. Assessment: 15:00 General: Appears in no apparent distress. comfortable, Behavior is calm, cooperative. cm10 Pain: Complains of pain in left foot Pain does not radiate. Pain currently is 8 out of 10 on a pain scale. Neuro: No deficits noted. Level of Consciousness is awake, alert, obeys commands, Oriented to person, place, time, situation, Appropriate for age. Cardiovascular: Rhythm is regular. Respiratory: No deficits noted. Airway is patent Respiratory effort is even, unlabored, Respiratory pattern is regular, symmetrical. Derm: Wound noted heel of left foot Wound is Wound has foul purulent drainage. 17:46 Reassessment: Patient appears in no apparent distress at this time. No changes from cm10 previously documented assessment. Patient and/or family updated on plan of care and expected duration. Pain level reassessed. Patient is alert, oriented x 3, equal unlabored respirations, skin warm/dry/pink. 17:54 Reassessment: Pt states that he does not want to change into a gown. Would like to stay cm10 in his own clothes. Vital Signs: 14:31 BP 101 / 48; Pulse 73; Resp 18; Temp 97.1; Pulse Ox 93% on R/A; Weight 133.81 kg; ll1 Height 5 ft. 9 in. ; Pain 8/10; 15:30 BP 112 / 44; Pulse 64; Resp 12; Pulse Ox 90% on R/A; cm10 16:30 BP 120 / 59; Pulse 63; Resp 16; Pulse Ox 93% on R/A; cm10 17:30 BP 123 / 55; Pulse 65; Resp 16; Pulse Ox 92% on R/A; cm10 14:31 Body Mass Index 43.56 (133.81 kg, 175.26 cm) ll1 14:31 Pain Scale: Adult ll1 ED Course: 14:13 Patient arrived in ED. mg5 14:15 Marjorie Soto FNP-C is [facility]. kb 14:15 Magdiel Conte MD is Attending Physician. kb 14:30 Arm band placed on. ll1 14:32 Triage completed. ll1 15:00 Patient has correct armband on for positive identification. Bed in low position. Call cm10 light in reach. Side rails up X2. Provided Education on: ER process and procedures.. Client placed on continuous cardiac and pulse oximetry monitoring. NIBP monitoring applied. environmental monitoring specialist on. 15:00 First set of blood cultures drawn by me. cm10 15:15 Initial lab(s) drawn, by me, sent to lab. Second set of blood cultures drawn by me. cm10 15:18 Grecia Arias, RN is Primary Nurse. cm10 15:18 Blood Culture Adult (2) Sent. cm10 15:18 CBC with Diff Sent. cm10 15:18 CMP Sent. cm10 15:18 Lactate w/ 2H reflex if indic. Sent. cm10 15:18 Protime (+inr) Sent. cm10 15:18 Ptt, Activated Sent. cm10 15:18 Inserted saline lock: 22 gauge in left forearm, using aseptic technique. Blood cm10 collected. Flushed with 10 mL NS. 15:30 Foot Left 3 View XRAY In Process Unspecified. EDMS 15:36 EKG done, by ED staff, reviewed by Marjorie MCDOWELL-Verónica. cm10 15:58 Moris Nobles MD is Hospitalizing Provider. kb 17:47 Report faxed at [phone]. [facility] confirmed fax was received at 1745. cm10 17:47 No provider procedures requiring assistance completed. Patient admitted, IV remains in cm10 place. Administered Medications: 15:56 Drug: NS 0.9% IV 500 ml 500 ml IV at 1 bolus once; to be given as a bolus over 30 cm10 minutes Volume: 500 ml; Route: IV; Rate: 1 bolus; Site: left forearm; 16:56 Follow up: Response: No adverse reaction; IV Status: Completed infusion; IV Intake: cm10 500ml 15:57 Drug: vancoMYCIN IVPB 1 grams IVPB once over 2 hrs Route: IVPB; Infused Over: 2 hrs; cm10 Site: left forearm; 18:01 Follow up: Response: No adverse reaction; IV Status: Completed infusion; IV Intake: cm10 250ml Medication: 15:59 VIS not applicable for this client. cm10 Intake: 16:56 IV: 500ml; Total: 500ml. cm10 18:01 IV: 250ml; Total: 750ml. cm10 Outcome: 15:58 Decision to Hospitalize by Provider. kb 17:48 Admitted to Med/surg accompanied by tech, via stretcher, room 225, cm10 17:48 Condition: good 17:48 Instructed on the need for admit, 18:28 Patient left the ED. cm10 Signatures: Dispatcher [employer] EDMarjorie Hale, HARMAN MCDOWELL-Micheal Francis, RN RN ll1 Grecia Arias RN RN cm10 Jahaira Rosario mg5
--- NOTE | 2024-01-15 16:22 | P.HP ---
Certification for Inpatient Patient admitted to: Inpatient With expected LOS: >2 Midnights Practitioner: I am a practitioner with admitting privileges, knowledge of patient current condition, hospital course, and medical plan of care. Services: Services provided to patient in accordance with Admission requirements found in Title 42 Section 412.3 of the Code of Federal Regulations Patient History Date of Service: 01/15/24 Reason for admission: Diabetic foot infection History of Present Illness: Mr. Koenig is a 58-year-old gentleman with past medical history of diabetes, hypertension, CHF, end-stage renal disease, and chronic back pain. About a month ago he had a debridement of his left heel per Dr. Quintero but had problems with follow-up second to [place] authorization. He receives dialysis Mondays, Wednesdays, and Fridays with Dr. Reyes. He was apparently seen in the office today and they sent him to the emergency department to be admitted for wound evaluation per Dr. Quintero. We will admit him with IV antibiotics, consult Dr. Quintero and Dr. Reyes to coordinate dialysis and operative debridement of his left heel. X-ray: FINDINGS: No fracture or dislocation seen. Soft tissue ulceration right foot. No adjacent bony destruction seen. Large calcaneal spur. Vascular calcifications. Edema within the subcutaneous tissues Labs: WBC 14.9 with 79.8% neutrophil, H/H 9.4/29.4 with anemia of chronic disease picture, INR 1.14 Sodium 131, potassium 5.6, BUN 46, creatinine 8.43 with a GFR of 7, glucose 183 Allergies No Known Allergies Allergy (Verified 05/03/19 04:58) Home medications list reviewed: Yes (Per medication history) Home Medications: Gabapentin 300 mg PO DAILY 11/15/19 Insulin Detemir [Levemir Flextouch] 33 units SQ BID 11/15/19 Calcitrol [Rocaltrol*] 0.5 mcg PO DAILY #60 cap 11/19/19 carvediloL [Coreg*] 25 mg PO BID #60 tab 11/19/19 Aspirin [Vazalore] 1 tab PO DAILY 12/25/20 Atorvastatin Calcium 1 tab PO BEDTIME 12/25/20 Insulin -Regular Human [Novolin -R*] 11 units SQ TIDWM 12/25/20 Trazodone [Desyrel*] 100 mg PO BEDTIME 12/25/20 Heparin [Heparin 1,000 units/mL *] 3,000 unit IV EVERY HD vial 01/20/21 Heparin [Heparin 1,000 units/mL *] 6,000 unit IV EVERY HD PRN vial 01/20/21 Bupropion HCl [Budeprion Xl] 300 mg PO DAILY 11/17/23 Citalopram [Celexa*] 11/17/23 Docusate [Colace Cap*] 100 mg PO DAILY 11/17/23 Ferrous Gluconate 324 mg PO BID 11/17/23 Mecobalamin [B12 Active] 1,000 mcg PO DAILY 11/17/23 Epoetin [Procrit*] 10,000 unit IV EVERY HD vial 11/22/23 Losartan Potassium [Cozaar*] 50 mg PO BEDTIME #30 tab 11/22/23 Oxycodone HCl/Acetaminophen [Percocet 5/325 Tab*] 1 tab PO Q4H PRN #15 tab 11/22/23 Sevelamer Carbonate [Renvela*] 2,400 mg PO TIDWM #270 tab 11/22/23 Vancomycin/0.9 % Sod Chloride [Vanco 1 Gram/250 ml-0.9% NaCl] 1 gm IV AFTER EACH DIALYSIS 14 Days #6 bag 11/22/23 levoFLOXacin [Levaquin] 500 mg PO Q48H #7 tab 11/22/23 - Past Medical/Surgical History Has patient received pneumonia vaccine in the past: Yes Diabetic: Yes -: Chronic Back Pain -: Hypertension -: Diabetes mellitus type 2 insulin dependent -: Depression Anxiety -: Anxiety -: ESRD on HD followed by Dr. Russo/Lio -: Chronic diastolic congestive heart failure -: Morbid obesity -: eye surgery -: Dialysis catheter insertion right anterior chest wall Psychosocial/ Personal History: Patient lives with aunt - Family History Father -: Heart disease, Diabetes Mother -: Heart disease, Diabetes - Social History Smoking Status: Unknown if ever smoked Alcohol use: No CD- Drugs: No Caffeine use: Yes Place of Residence: Home Review of Systems 10-point ROS is otherwise unremarkable General: As per HPI Eyes: Unremarkable ENT: Unremarkable Respiratory: Unremarkable Cardiovascular: Unremarkable Gastrointestinal: Unremarkable Genitourinary: Unremarkable Musculoskeletal: Unremarkable Integumentary: As per HPI Neurological: Unremarkable Lymphatics: Unremarkable Physical Examination - Physical Exam General: Oriented x3, Cooperative, Obese, Other (fatigued, fell asleep while talking) HEENT: Atraumatic, Normocephalic Neck: Supple Respiratory: Other (obvious sleep apnea with sats dipping to lower 80s when sleeping) Cardiovascular: Regular rate/rhythm, Edema Capillary refill: <2 Seconds Gastrointestinal: Soft and benign Musculoskeletal: No clubbing Integumentary: Diabetic ulcer, Other (with cellulitis, foul odor, and areas of necrosis) Neurological: Normal speech, Normal tone, Normal affect Lymphatics: No axilla or inguinal lymphadenopathy External genitalia: Deferred Rectal: Deferred - Studies Laboratory Data (last 24 hrs) 01/15/24 01/15/24 01/15/24 15:15 15:15 15:15 WBC 14.90 H Hgb 9.4 L Hct 29.4 L Plt Count 284 PT 12.7 H INR 1.14 APTT 29.8 Sodium 131 L Potassium 5.6 H BUN 46 H Creatinine 8.43 H Glucose 183 H Total Bilirubin 0.3 AST < 10 L ALT < 14 L Alkaline Phosphatase 89 Assessment and Plan - Plan Diabetic foot ulcer with cellulitis and necrotic tissue Consult Dr. Quintero - done - plan for OR debridement tomorrow if pt can be dialyzed early santyl wash and kerlix coverage, elevate left lower extremity Vancomycin IV BID, pharmacy consult for dosing NPO post [place] ESRD with hyperkalemia Consult Dr. Vaca rer: dialysis (M/W/F) Lokelma po x 2 doses monitor and manage electrolytes Anemia of chronic disease monitor and trend Mgmt per Nephrology Sleep apnea CPAP Nebs O2 per protocol HOB up 30 degrees Hypertension Hold antihypertensives (losartan and Coreg)as patient blood pressure is soft Hyperlipidemia Statin Obesity ADA diet discussed M&M/simple non-nourishing carbs avoidance VTE/GI prophylaxis heparin/protonix Discharge Plan: Home Plan to discharge in: Greater than 2 days - Advance Directives Does patient have a Living Will: No Does patient have a Durable POA for Healthcare: No - Code Status/Comfort Care Code Status: Full Code
[2024-01-15] MEDS ORDERED: SODIUM CHLORIDE 0.9% 10ML INJ IV PRN (16:33)
[2024-01-15] MEDS ORDERED: ACETAMINOPHEN 500 MG TAB PO PRN (16:33)
[2024-01-15] MEDS: VANCOMYCIN 1 GM in NA CHLORIDE 0.9% 250 ML IVPB SCH (16:54)
[2024-01-15] MEDS: SODIUM ZIRCONIUM CYCLOSILICATE 10 GM/PKT PO SCH (17:00)
[2024-01-15] MEDS: HEPARIN 5000 UNIT/ML 1 ML VIAL SQ SCH (17:00)
[2024-01-15] MEDS: VANCOMYCIN 1 GM in NA CHLORIDE 0.9% 250 ML IVPB ONE (18:00)
[2024-01-15] MEDS: Meropenem 500 MG in NA CHLORIDE 0.9% 100 ML IV SCH ×2 (18:00→22:35)
[2024-01-15 19:51] VITALS: BMI 43.5
[2024-01-15] MEDS: ALBUTEROL 2.5 MG/3 ML NEB SOL NEB SCH (19:57)
[2024-01-15] MEDS: IPRATROPIUM BROM 0.5MG/2.5ML NEB SCH (19:58)
[2024-01-15] MEDS: INSULIN GLARGINE 100 UNIT/ML SQ SCH (21:00)
[2024-01-15] MEDS ORDERED: Meropenem 1,000 MG in NA CHLORIDE 0.9% 100 ML IV SCH (21:00)
[2024-01-15] MEDS: INSULIN REGULAR (HUMAN) 100 UNIT/ML SQ SCH (21:00)
[2024-01-15] MEDS: HYDROMORPHONE HCL 1 MG/ML INJ IV ONE (21:54)
[2024-01-15] MEDS: ATORVASTATIN 80 MG TAB PO SCH (22:12)
[2024-01-15] MEDS: PANTOPRAZOLE 40 MG INJ IVP SCH (22:12)
[2024-01-15] MEDS: GABAPENTIN 300 MG CAP PO SCH (22:12)
[2024-01-15] MEDS: HEPARIN 5000 UNIT/ML 1 ML VIAL SQ ONE (22:49)
[2024-01-15] MEDS ORDERED: HEPARIN 5000 UNIT/ML 1 ML VIAL SQ SCH (23:00)
[2024-01-16 04:46] LABS: Absolute Basophils 0.1 K/uL (0-0.5); Absolute Eosinophils 0.3 K/uL (0-0.5); Absolute Lymphocytes (CBC) 1.3 K/uL (0.7-4.9); Absolute Monocytes 0.8 K/uL (0.1-1.3); Absolute Neutrophil 6.6 K/uL (1.8-8.0); Basophils % 0.6 % (0-1.3); Hematocrit 29.1 % (39.6-49.0); Hemoglobin 9.5 g/dL (13.6-17.9); Lymphocytes % 14.3 % (15.3-44.8); MCH 31.9 pg (27.0-35.0); MCHC 32.7 g/dL (32.0-36.0); MCV 97.8 fL (80-100); Monocytes % 8.8 % (3.3-12.3); Neutrophils % 73.3 % (41.7-73.7); Platelets 262 thou/uL (152-406); RBC Red Blood Cell Count 2.98 M/uL (4.33-5.43); Red Cell Distribution Width 16.4 % (12.1-15.2)
[2024-01-16 04:48] LABS: PT Prothrombin Time 11.4 SECONDS (9.4-12.5); Protime INR 1.02
[2024-01-16 05:14] LABS: Albumin 2.7 g/dL (3.4-5.0); Albumin/Globulin Ratio 0.6 (1.1-1.8); Alkaline Phosphatase 88 U/L (45-117); Anion Gap 11.2 mEq/L (5.0-15.0); BUN Blood Urea Nitrogen 53 mg/dL (7-18); Bicarbonate 25 mEq/L (21-32); Bilirubin Total 0.3 mg/dL (0.2-1.0); Globulin 4.2 g/dL (2.3-3.5); Glomerular Filtration Rate 6 ml/min (=/>90); Glucose Level 150 mg/dL (74-106); HDL Cholesterol 37 mg/dL (40-60); LDL Cholesterol, Calculated 15 mg/dL (<130); LDL Cholesterol,Calc NonReport 15; Magnesium 2.4 mg/dL (1.6-2.4); Phosphorus 6.7 mg/dL (2.5-4.9); Potassium 5.2 mEq/L (3.5-5.1); Protein, Total 6.9 g/dL (6.4-8.2); Sodium Level 132 mEq/L (136-145)
[2024-01-16 05:16] LABS: ALT/SGPT < 14 U/L (16-61); AST/SGOT < 10 U/L (15-37)
[2024-01-16] MEDS: HEPARIN 5000 UNIT/ML 1 ML VIAL SQ SCH (06:00)
[2024-01-16] MEDS ORDERED: MANNITOL 25% 12.5 GM/50 ML VIAL IV PRN (07:02)
[2024-01-16] MEDS ORDERED: NA CHLORIDE 0.9% 1,000 ML IV PRN (07:02)
[2024-01-16] MEDS ORDERED: ALBUMIN HUMAN 25% 50 ML IV SCH (08:00)
[2024-01-16] MEDS: FLU (Fluarix Triv) TS24-25(6MOS UP)/PF 45 MCG/0.5 ML Syringe IM ONE (08:15)
[2024-01-16] MEDS: SEVELAMER CARBONATE 800 MG TABLET PO SCH (08:22)
[2024-01-16] MEDS: ASPIRIN EC 81 MG TAB PO SCH (08:22)
[2024-01-16] MEDS: FERROUS SULFATE 325 MG TAB PO SCH (08:23)
[2024-01-16 11:04] LABS: Hepatitis B surface AG Interp. Nonreactive (Nonreactive)
[2024-01-16 11:05] LABS: HBsAG Nonreactive Report Report
--- NOTE | 2024-01-16 11:19 | P.CNS ---
Date of Consult: 01/16/24 Reason for Consult: ESRD Requesting Physician: Mis Gunderson Chief Complaint: Diabetic foot infection History of Present Illness: Mr. Koenig is a 58-year-old gentleman with past medical history of diabetes, hypertension, CHF, end-stage renal disease, and chronic back pain. About a month ago he had a debridement of his left heel per Dr. Quintero but had problems with follow-up second to [place] authorization. He receives dialysis Mondays, Wednesdays, and Fridays with Dr. Reyes. He was apparently seen in the office today and they sent him to the emergency department to be admitted for wound evaluation per Dr. Quintero. We will admit him with IV antibiotics, consult Dr. Quintero and Dr. Reyes to coordinate dialysis and operative debridement of his left heel. 15:55 This 58 yrs old Male presents to ER via Wheelchair with complaints of Wound kb Infection. 15:55 Pt is a 58 year old male who presents for pain to left foot with malaise and bodyaches. kb States this is how he felt last time he had an infection. Pt had "tissue removed from that heel" 1.[address] Quintero and was supposed to follow up with wound care, but hasn't been able to get that set up yet. States he developed pain and susannah ise about 4 days ago. Denies fever, but states he hasn't checked it Allergies No Known Allergies Allergy (Verified 01/15/24 21:51) Home medications list reviewed: Yes Home Medications: Gabapentin 300 mg PO DAILY 11/15/19 Insulin Detemir [Levemir Flextouch] 33 units SQ BID 11/15/19 Calcitrol [Rocaltrol*] 0.5 mcg PO DAILY #60 cap 11/19/19 carvediloL [Coreg*] 25 mg PO BID #60 tab 11/19/19 Aspirin [Vazalore] 1 tab PO DAILY 12/25/20 Atorvastatin Calcium 1 tab PO BEDTIME 12/25/20 Insulin -Regular Human [Novolin -R*] 11 units SQ TIDWM 12/25/20 Trazodone [Desyrel*] 100 mg PO BEDTIME 12/25/20 Bupropion HCl [Budeprion Xl] 300 mg PO DAILY 11/17/23 Docusate [Colace Cap*] 100 mg PO DAILY 11/17/23 Ferrous Gluconate 324 mg PO BID 11/17/23 Mecobalamin [B12 Active] 1,000 mcg PO DAILY 11/17/23 Epoetin [Procrit*] 10,000 unit IV EVERY HD vial 11/22/23 Losartan Potassium [Cozaar*] 50 mg PO BEDTIME #30 tab 11/22/23 Cyclobenzaprine [Flexeril] 10 mg PO DAILY PRN 01/16/24 Hydrocodone 10/APAP 325 [[place] 10/325] 1 tab PO Q6H PRN 01/16/24 Sevelamer Carbonate [Renvela] 800 mg PO TIDWM 01/16/24 - Past Medical/Surgical History Diabetic: Yes -: Chronic Back Pain -: Hypertension -: Diabetes mellitus type 2 insulin dependent -: Depression Anxiety -: Anxiety -: ESRD on HD (Dr. Russo/Lio) -: Chronic diastolic congestive heart failure -: Morbid obesity -: legally blind left eye -: eye surgery -: Dialysis catheter insertion right anterior chest wall Psychosocial/ Personal History: Patient lives with aunt - Family History Father Medical History: Heart disease, Diabetes Mother Medical History: Heart disease, Diabetes - Social History Smoking Status: Unknown if ever smoked Alcohol use: Yes CD- Drugs: Yes Caffeine use: Yes Place of Residence: Home Review of Systems 10-point ROS is otherwise unremarkable Cardiovascular: Edema Physical Examination Temp Pulse Resp BP Pulse Ox 97.4 F 63 16 130/63 94 01/16/24 08:00 01/16/24 08:00 01/16/24 08:00 01/16/24 08:00 01/16/24 08:00 General: In no apparent distress, Cooperative HEENT: Atraumatic Neck: Supple Respiratory: Normal air movement Cardiovascular: Regular rate/rhythm, Edema Gastrointestinal: Soft and benign, Non-distended Musculoskeletal: No clubbing, No contractures Integumentary: No rashes, No cyanosis Neurological: Normal speech Laboratory Data (last 24 hrs) 01/15/24 01/15/24 01/15/24 15:15 15:15 15:15 WBC 14.90 H Hgb 9.4 L Hct 29.4 L Plt Count 284 PT 12.7 H INR 1.14 APTT 29.8 Sodium 131 L Potassium 5.6 H BUN 46 H Creatinine 8.43 H Glucose 183 H Total Bilirubin 0.3 AST < 10 L ALT < 14 L Alkaline Phosphatase 89 Imagings Data: [id number] Exam:Foot Left 3 View CLINICAL HISTORY: Left foot pain FINDINGS: No fracture or dislocation seen Soft tissue ulceration right foot. No adjacent bony destruction seen. Large calcaneal spur. Vascular calcifications. Edema within the subcutaneous tissues Conclusions/Impression: ESRD on HD -Acute HD today -Seen and examined on HD HTN with CKD/ CHF -Start Losartan Diastolic CHF, chronic -HD with UF DM II with CKD -RISS Anemia in CKD -Retacrit qHD CKD MBD Secondary HyperPTH -Continue Renvela -Start Calcitriol Hospitalist and ER notes reviewed Thank you kindly for the consultation
[2024-01-16] MEDS: EPOETIN ALFA 10,000 UNIT/ML VIAL IV SCH (14:15)
[2024-01-16] MEDS: MORPHINE 2 MG/ML SYR IV PRN (16:56)
[2024-01-16] MEDS: LOSARTAN POTASSIUM 50 MG TABLET PO SCH (22:09)
--- NOTE | 2024-01-16 22:12 | P.PN ---
Date of Service: 01/16/24 subjective emergency HD, for hyperkalemia, Review of Systems 10-point ROS is otherwise unremarkable Physical Examination - Physical Exam General: Oriented x3, Cooperative, Obese, HEENT: Atraumatic, Normocephalic Neck: Supple Respiratory: diminishrd, crackles Cardiovascular: Regular rate/rhythm, Edema Capillary refill: <2 Seconds Gastrointestinal: Soft and benign Musculoskeletal: No clubbing Integumentary: Diabetic ulcer, Other (cellulitis, foul odor areas of necrosis) Neurological: Normal speech, Normal tone, Normal affect Assessment and Plan - Plan Diabetic foot ulcer with cellulitis and necrotic tissue Consult Dr. Quintero - done - plan for OR debridement tomorrow if pt can be dialy zed early santyl wash and kerlix coverage, elevate left lower extremity Vancomycin IV BID, pharmacy consult for dosing ESRD with hyperkalemia Consult Dr. Vaca rer: dialysis (M/W/F) Lokelma po x 2 doses monitor and manage electrolytes Anemia of chronic disease monitor and trend Mgmt per Nephrology Sleep apnea CPAP Nebs O2 per protocol HOB up 30 degrees Hypertension Hold antihypertensives (losartan and Coreg)as patient blood pressure is soft Hyperlipidemia Statin Obesity ADA diet discussed M&M/simple non-nourishing carbs avoidance VTE/GI prophylaxis heparin/protonix Discharge Plan: Home Plan to discharge in: Greater than 2 days - Advance Directives Does patient have a Living Will: No Does patient have a Durable POA for Healthcare: No - Code Status/Comfort Care Code Status: Full Code time with patient 30 min
[2024-01-17 04:55] LABS: Absolute Basophils 0.1 K/uL (0-0.5); Absolute Eosinophils 0.2 K/uL (0-0.5); Absolute Monocytes 0.8 K/uL (0.1-1.3); Absolute Neutrophil 7.1 K/uL (1.8-8.0); Basophils % 0.7 % (0-1.3); Eosinophils % 2.6 % (0-4.4); Hematocrit 31.7 % (39.6-49.0); Hemoglobin 10.5 g/dL (13.6-17.9); Lymphocytes % 10.5 % (15.3-44.8); MCH 32.1 pg (27.0-35.0); MCHC 33.2 g/dL (32.0-36.0); MCV 96.8 fL (80-100); Monocytes % 9.2 % (3.3-12.3); Nucleated Red Blood Cells % 0.1 % (0-0); Platelets 301 thou/uL (152-406); RBC Red Blood Cell Count 3.27 M/uL (4.33-5.43); Red Cell Distribution Width 16.6 % (12.1-15.2)
[2024-01-17 05:40] LABS: Albumin 2.8 g/dL (3.4-5.0); Albumin/Globulin Ratio 0.6 (1.1-1.8); Alkaline Phosphatase 93 U/L (45-117); Anion Gap 10.3 mEq/L (5.0-15.0); BUN Blood Urea Nitrogen 37 mg/dL (7-18); Bicarbonate 27 mEq/L (21-32); Bilirubin Total 0.3 mg/dL (0.2-1.0); Globulin 4.7 g/dL (2.3-3.5); Glomerular Filtration Rate 8 ml/min (=/>90); Glucose Level 146 mg/dL (74-106); Magnesium 2.3 mg/dL (1.6-2.4); Phosphorus 4.9 mg/dL (2.5-4.9); Potassium 5.3 mEq/L (3.5-5.1); Protein, Total 7.5 g/dL (6.4-8.2); Sodium Level 136 mEq/L (136-145)
[2024-01-17 05:47] LABS: ALT/SGPT < 14 U/L (16-61); AST/SGOT < 10 U/L (15-37)
[2024-01-17] MEDS: CALCITROL 0.25 MCG CAP PO SCH (08:53)
[2024-01-17] MEDS: DOCUSATE NA 100 MG CAP PO SCH (08:54)
[2024-01-17] MEDS: MULTIVITAMINS,THERAPEUT 1 TAB PO SCH (08:57)
[2024-01-17] MEDS: SODIUM ZIRCONIUM CYCLOSILICATE 10 GM/PKT PO ONE (08:57)
[2024-01-17] MEDS ORDERED: LOSARTAN POTASSIUM 50 MG TABLET PO SCH (09:00)
[2024-01-17] MEDS: NA CHLORIDE 0.9% 500 ML ONE (12:25)
[2024-01-17] MEDS: MIDAZOLAM HCL 2 MG/2 ML INJ ONE (12:43)
[2024-01-17] MEDS ORDERED: LIDOCAINE 2% MPF 5 ML VIAL ONE (12:46)
[2024-01-17] MEDS ORDERED: FENTANYL CITR 100 MCG/2 ML ONE (12:46)
[2024-01-17] MEDS ORDERED: propofoL 200 MG/20 ML VIAL IV ONE (12:46)
[2024-01-17] MEDS ORDERED: ONDANSETRON 4 MG/2 ML VIAL ONE (12:46)
[2024-01-17] MEDS ORDERED: EPHEDRINE SULF 50 MG/ML VIAL ONE (12:59)
[2024-01-17] MEDS ORDERED: dexAMETHasone 4 MG/ML VIAL ONE (13:05)
[2024-01-17] MEDS: LIDOCAINE HCL/EPINEPHRINE 20 ML MDV ONE (13:33)
--- NOTE | 2024-01-17 13:53 | P.OP ---
Preoperative diagnosis: LEFT heel diabetic ulcer, removal of HD catheter Postoperative diagnosis: LEFT heel diabetic ulcer, removal of HD catheter Primary procedure: Debridement of Nercotic LEFT Diabetic Heel Ulcer Secondary procedure: Removal of LEFT IJ Tunelled Hemodialysis Catheter Anesthesia: GETA + Local Estimated blood loss: <5cc Specimen: Cultures, Debridement Tissue, HD Catheter Findings: ~ 6cm round necrotic heel ulcer to fascia Complications: None Implants: none Transferred to: Recovery Room Condition: Good
[2024-01-17] MEDS: FLU (Fluarix Triv) TS24-25(6MOS UP)/PF 45 MCG/0.5 ML Syringe IM ONE (14:00)
[2024-01-17] MEDS: HYDROMORPHONE HCL 1 MG/ML INJ ONE (14:20)
--- NOTE | 2024-01-17 17:35 | OP ---
Date of Procedure: 01/17/2024 Surgeon: Keenan Quintero MD, Preoperative Diagnoses: 1.Left heel diabetic ulcer. 2.Removal of tunneled hemodialysis catheter from internal jugular vein on the left. Postoperative Diagnoses: 1.Left heel diabetic ulcer. 2.Removal of tunneled hemodialysis catheter from internal jugular vein on the left. Procedures Performed: 1.Debridement of necrotic left heel diabetic ulcer. 2.Removal of left internal jugular tunnel hemodialysis catheter. Anesthesia: General endotracheal plus local with 1% lidocaine with epinephrine. Estimated Blood Loss: Less than 5 cc. Specimens: Cultures sent for both aerobic and anaerobic speciation, debridement of tissue from heel and hemodialysis catheter sent for ID only. Findings: Approximately 6 cm round necrotic heel ulcer extending to the fascia with gross necrotic t issue. Implants: None. Disposition: Patient transferred to recovery room in good condition. Procedure In Detail: After informed consent was obtained, patient was brought to the operating room, prepped and draped in the usual sterile fashion after adequate anesthesia was achieved. I anestheti zed the exit site at the insertion site of the left internal jugular vein, placed the patient in stee p Trendelenburg position. At this point, I made a small incision overlying the area with a 15 blade down to subcutaneous tissues. I ultimately dilated using blunt dissection and hemostat ultimately br inging the cuff into visual view. I performed a combination of sharp and blunt dissection as well as electrocautery to remove the tissue surrounding the cuff and attaching it. The patient remained in steep Trendelenburg position. I held pressure at the insertion site and at the exit site and removed the catheter and sent it off for ID only, at this point. At this point, pressure was held. The pat ient was sat in the head up position, at this point, and pressure was held the entire time. I then c ontinued to have pressure held at the insertion site at the jugular vein. The exit site was irrigate d and closed with 2 interrupted 3-0 nylon sutures and a sterile dressing placed over top. Pressure c ontinue to be held on both sides for approximately 5 minutes, at which point, it was examined, and no hematomas were appreciated. At this point, I turned my attention to the left heel. There was appro ximately an irregular shaped 6 cm oblong heel ulcer on the posterior lateral aspect of the heel which had gross gangrenous changes, necrosis to the area. I demarcated the area using a 15 blade circumfe rentially around and ultimately dissected this using scissors and electrocautery removing all nonviab le tissue as I encountered a small area of necrosis concerning for contamination. I cultured it for both aerobic and anaerobic speciation. I then removed all nonviable tissue and removed the nonviable tissue down to the plantar fascia, at this point. The area was copiously irrigated. Hemostasis was achieved with electrocautery. The wound was then packed with Vashe soaked gauze and a sterile dress ing placed over top. The patient tolerated the procedure well without incident or complication, reynolds sferred to PACU in good condition. All counts were correct at the end of the case. SHARONDA/JIMMY Voice ID: [id number] Report ID: [id number]
--- NOTE | 2024-01-17 20:09 | P.PN ---
Date of Service: 01/17/24 Vital Signs Temp Pulse Resp BP Pulse Ox 98 F 66 16 151/67 H 93 01/17/24 16:00 01/17/24 16:00 01/17/24 16:00 01/17/24 16:00 01/17/24 16:00 Medications Acetaminophen (Acetaminophen 500 Mg Tab) 500 mg PO Q4HP PRN PRN Reason: TEMP > 101' F Aspirin (Aspirin Ec 81 Mg Tab) 81 mg PO DAILY [facility] Last Admin: 01/17/24 08:57 Dose: 81 mg Atorvastatin Calcium (Atorvastatin 80 Mg Tab) 80 mg PO BEDTIME [facility] Last Admin: 01/16/24 21:13 Dose: 80 mg Calcitriol (Calcitrol 0.25 Mcg Cap) 0.5 mcg PO DAILY [facility] Last Admin: 01/17/24 08:53 Dose: 0.5 mcg Docusate Sodium (Docusate Na 100 Mg Cap) 100 mg PO BID [facility] Last Admin: 01/17/24 08:54 Dose: 100 mg Epoetin Pierce (Epoetin Pierce 10,000 Unit/Ml Vial) 10,000 unit IV EVERY HD [facility] Last Admin: 01/16/24 14:15 Dose: 10,000 unit Ferrous Sulfate (Ferrous Sulfate 325 Mg Tab) 325 mg PO BIDWM [facility] Last Admin: 01/17/24 15:35 Dose: 325 mg Gabapentin (Gabapentin 300 Mg Cap) 300 mg PO BEDTIME [facility] Last Admin: 01/16/24 21:13 Dose: 300 mg Heparin Sodium (Porcine) (Heparin 5000 Unit/Ml 1 Ml Vial) 5,000 unit SQ Q8H [facility] Last Admin: 01/17/24 14:00 Dose: Not Given Heparin Sodium (Porcine) (Heparin 1,000 Unit/Ml Vial) 6,000 unit IV EVERY HD PRN PRN Reason: AFTER EACH Heparin Sodium (Porcine) (Heparin 1,000 Unit/Ml Vial) 3,000 unit IV EVERY HD PRN PRN Reason: Prevent Sysem Clotting Last Admin: 01/16/24 11:27 Dose: 3,000 unit Albumin Human (Albumin 25%) 50 mls @ 100 mls/hr IV EVERY HD [facility] Meropenem 500 mg/ Sodium (Chloride) 100 mls @ 200 mls/hr IV Q24H [facility] Insulin Glargine (Insulin Glargine 100 Unit/Ml) 33 unit SQ BID [facility] Last Admin: 01/17/24 09:19 Dose: 33 unit Insulin Human Regular (Insulin Regular (Human) 100 Unit/Ml) 0 unit SQ ACHS [facility]; Protocol Last Admin: 01/17/24 16:30 Dose: Not Given Losartan Potassium (Losartan Potassium 50 Mg Tablet) 50 mg PO BID [facility] Last Admin: 01/17/24 08:57 Dose: 50 mg Mannitol (Mannitol 25% 12.5 Gm/50 Ml Vial) 12.5 gm IV EVERY HD PRN PRN Reason: Titrate to SBP (MUST DEFINE) Morphine Sulfate (Morphine 2 Mg/Ml Syr) 2 mg IV Q8H PRN PRN Reason: Pain scale 8-10 (Severe) Last Admin: 01/17/24 03:13 Dose: 2 mg Pantoprazole Sodium (Pantoprazole 40 Mg Inj) 40 mg IVP DAILY [facility]; Protocol Last Admin: 01/17/24 08:53 Dose: 40 mg Sevelamer Carbonate (Sevelamer Carbonate 800 Mg Tablet) 2,400 mg PO TIDWM [facility] Last Admin: 01/17/24 15:34 Dose: 2,400 mg Sodium Chloride (Sodium Chloride 0.9% 10ml Inj) 10 ml IV UD PRN PRN Reason: Diluant Vitamin B Complex/Vit C/Folic Acid (Multivitamins,Therapeut 1 Tab) 1 tab PO DAILY [facility] Last Admin: 01/17/24 08:57 Dose: 1 tab Microbiology Results 01/15/24 15:00 Blood - Blood Aerobic Blood Culture - Preliminary No growth in 24 hours. 01/15/24 15:00 Blood - Blood Anaerobic Blood Culture - Preliminary No growth in 24 hours. 01/15/24 15:15 Blood - Blood Aerobic Blood Culture - Preliminary No growth in 24 hours. 01/15/24 15:15 Blood - Blood Anaerobic Blood Culture - Preliminary No growth in 24 hours. Assessment/ Plan: Nephrology No dyspnea No chest pain Fatigue No acute events overnight Vitals, medications, blood work and imaging reviewed in the chart General: In no apparent distress, Cooperative HEENT: Atraumatic Neck: Supple Respiratory: Normal air movement Cardiovascular: Regular rate/rhythm, Edema Gastrointestinal: Soft and benign, Non-distended Musculoskeletal: No clubbing, No contractures Integumentary: No rashes, No cyanosis Neurological: Normal speech Laboratory Data (last 24 hrs) 01/15/24 01/15/24 01/15/24 15:15 15:15 15:15 WBC 14.90 H Hgb 9.4 L Hct 29.4 L Plt Count 284 PT 12.7 H INR 1.14 APTT 29.8 Sodium 131 L Potassium 5.6 H BUN 46 H Creatinine 8.43 H Glucose 183 H Total Bilirubin 0.3 AST < 10 L ALT < 14 L Alkaline Phosphatase 89 Imagings Data: Exam:Foot Left 3 View CLINICAL HISTORY: Left foot pain FINDINGS: No fracture or dislocation seen Soft tissue ulceration right foot. No adjacent bony destruction seen. Large calcaneal spur. Vascular calcifications. Edema within the subcutaneous tissues Conclusions/Impression: ESRD on HD -HD TIW Hyperkalemia -Lokelma X1 HTN with CKD/ CHF -Continue Losartan Diastolic CHF, chronic -HD with UF DM II with CKD -RISS Anemia in CKD -Retacrit qHD CKD MBD Secondary HyperPTH -Continue Renvela -Continue Calcitriol Hospitalist note reviewed
[2024-01-17] MEDS: Meropenem 500 MG in NA CHLORIDE 0.9% 100 ML IV SCH (21:25)
[2024-01-18 04:45] LABS: Absolute Lymphocytes (CBC) 0.7 K/uL (0.7-4.9); Absolute Monocytes 0.5 K/uL (0.1-1.3); Absolute Neutrophil 8.4 K/uL (1.8-8.0); Basophils % 0.4 % (0-1.3); Hematocrit 32.3 % (39.6-49.0); Hemoglobin 10.7 g/dL (13.6-17.9); Lymphocytes % 7.4 % (15.3-44.8); MCH 31.9 pg (27.0-35.0); MCHC 33.1 g/dL (32.0-36.0); MCV 96.4 fL (80-100); MPV 7.8 fL (7.6-11.3); Monocytes % 5.1 % (3.3-12.3); Neutrophils % 87.1 % (41.7-73.7); Platelets 297 thou/uL (152-406); RBC Red Blood Cell Count 3.35 M/uL (4.33-5.43); Red Cell Distribution Width 16.4 % (12.1-15.2)
[2024-01-18 06:00] LABS: Albumin 2.8 g/dL (3.4-5.0); Albumin/Globulin Ratio 0.6 (1.1-1.8); Alkaline Phosphatase 104 U/L (45-117); Anion Gap 11.9 mEq/L (5.0-15.0); BUN Blood Urea Nitrogen 54 mg/dL (7-18); Bicarbonate 24 mEq/L (21-32); Bilirubin Total 0.3 mg/dL (0.2-1.0); Globulin 4.8 g/dL (2.3-3.5); Glomerular Filtration Rate 6 ml/min (=/>90); Glucose Level 315 mg/dL (74-106); Magnesium 2.5 mg/dL (1.6-2.4); Potassium 5.9 mEq/L (3.5-5.1); Protein, Total 7.6 g/dL (6.4-8.2); Sodium Level 130 mEq/L (136-145)
[2024-01-18 06:03] LABS: AST/SGOT < 10 U/L (15-37)
[2024-01-18 06:04] LABS: ALT/SGPT < 14 U/L (16-61)
[2024-01-18 08:59] LABS: Platelet Estimate ADEQ; White Blood Cell Scan OK (OK)
[2024-01-18 09:00] LABS: Blood Morphology Comment NOT SEEN (NOT SEEN)
--- NOTE | 2024-01-18 09:52 | P.PN ---
Date of Service: 01/17/24 subjective N.p.o. for surgery to eval, pain control as needed analgesics Review of Systems 10-point ROS is otherwise unremarkable Physical Examination - Physical Exam General: Oriented x3, Cooperative, Obese, HEENT: Atraumatic, Normocephalic Neck: Supple Respiratory: diminishrd, crackles Cardiovascular: Regular rate/rhythm, Edema Capillary refill: <2 Seconds Gastrointestinal: Soft and benign Musculoskeletal: No clubbing Integumentary: Diabetic ulcer, Other (cellulitis, foul odor areas of necrosis) Neurological: Normal speech, Normal tone, Normal affect Assessment and Plan - Plan Diabetic foot ulcer with cellulitis and necrotic tissue Consult Dr. Ingrid kent -n.p.o. plan for OR debridement santyl wash and kerlix coverage, elevate left lower extremity Vancomycin IV BID, pharmacy consult for dosing 01/16 I&D 6cm round necrotic heel ulcer to fascia, follow-up with surgery outpatient ESRD with hyperkalemia Consult Dr. Vaca rer: dialysis (M/W/F) Lokelma po x 2 doses monitor and manage electrolytes 01/16 Surgery removed replaced hemodialysis catheter Anemia of chronic disease monitor and trend Mgmt per Nephrology Sleep apnea CPAP Nebs O2 per protocol HOB up 30 degrees Hypertension Hold antihypertensives (losartan and Coreg)as patient blood pressure is soft Hyperlipidemia Statin Obesity ADA diet discussed M&M/simple non-nourishing carbs avoidance VTE/GI prophylaxis heparin/protonix Discharge Plan: Home Plan to discharge in: Greater than 2 days - Advance Directives Does patient have a Living Will: No Does patient have a Durable POA for Healthcare: No - Code Status/Comfort Care Code Status: Full Code time with patient 30 min
[2024-01-18] MEDS: SODIUM ZIRCONIUM CYCLOSILICATE 10 GM/PKT PO ONE (10:15)
--- NOTE | 2024-01-18 16:46 | P.PN ---
Date of Service: 01/18/24 subjective pain control as needed analgesics s/p ID necrotic heel ulcer dialysis (M/W/F) Review of Systems 10-point ROS is otherwise unremarkable Physical Examination - Physical Exam vital signs reviewed General: Oriented x3, Cooperative, Obese, afebrile HEENT: Atraumatic, Normocephalic Respiratory: diminished, unlabored Cardiovascular: Regular rate/rhythm, Edema Capillary refill: <2 Seconds Gastrointestinal: Soft and benign Musculoskeletal: No clubbing Integumentary: left Diabetic heel ulcer, dry surgical dressing Neurological: Normal speech, Normal tone, Normal affect Assessment and Plan - Plan Diabetic foot ulcer with cellulitis and necrotic tissue improving Consult Dr. Ingrid kent -n.p.o. plan for OR debridement santyl wash and kerlix coverage, elevate left lower extremity Vancomycin IV BID, pharmacy consult for dosing 01/16 I&D 6cm round necrotic heel ulcer to fascia, follow-up with surgery outpatient wound culture + cirrobacter freundii complex on cefepeme ESRD with hyperkalemia improving Consult Dr. Vaca rer: dialysis (M/W/F) Lokelma po x 2 doses monitor and manage electrolytes 01/16 Surgery removed replaced hemodialysis catheter Anemia of chronic disease stable monitor and trend Mgmt per Nephrology Sleep apnea CPAP Nebs O2 per protocol HOB up 30 degrees Hypertension Hold antihypertensives (losartan and Coreg)as patient blood pressure is soft Hyperlipidemia Statin Obesity ADA diet discussed M&M/simple non-nourishing carbs avoidance VTE/GI prophylaxis heparin/protonix Discharge Plan: Home Plan to discharge in: Greater than 2 days - Advance Directives Does patient have a Living Will: No Does patient have a Durable POA for Healthcare: No - Code Status/Comfort Care Code Status: Full Code time with patient 25 min
[2024-01-18] MEDS: CEFEPIME 1 GM in NA CHLORIDE 0.9% 100 ML IV SCH (18:00)
--- NOTE | 2024-01-18 21:27 | P.PN ---
Date of Service: 01/18/24 Vital Signs Temp Pulse Resp BP Pulse Ox 97.4 F 64 18 173/57 H 94 01/18/24 20:00 01/18/24 20:00 01/18/24 20:00 01/18/24 20:00 01/18/24 20:00 Medications Acetaminophen (Acetaminophen 500 Mg Tab) 500 mg PO Q4HP PRN PRN Reason: TEMP > 101' F Aspirin (Aspirin Ec 81 Mg Tab) 81 mg PO DAILY COUNT INCLUDES THE [facility] Last Admin: 01/18/24 09:03 Dose: 81 mg Atorvastatin Calcium (Atorvastatin 80 Mg Tab) 80 mg PO BEDTIME COUNT INCLUDES THE [facility] Last Admin: 01/17/24 21:23 Dose: 80 mg Calcitriol (Calcitrol 0.25 Mcg Cap) 0.5 mcg PO DAILY COUNT INCLUDES THE [facility] Last Admin: 01/18/24 09:02 Dose: 0.5 mcg Docusate Sodium (Docusate Na 100 Mg Cap) 100 mg PO BID COUNT INCLUDES THE [facility] Last Admin: 01/18/24 09:02 Dose: 100 mg Epoetin Pierce (Epoetin Pierce 10,000 Unit/Ml Vial) 10,000 unit IV EVERY HD COUNT INCLUDES THE [facility] Last Admin: 01/18/24 15:00 Dose: 10,000 unit Ferrous Sulfate (Ferrous Sulfate 325 Mg Tab) 325 mg PO BIDWM COUNT INCLUDES THE [facility] Last Admin: 01/18/24 16:06 Dose: 325 mg Gabapentin (Gabapentin 300 Mg Cap) 300 mg PO BEDTIME COUNT INCLUDES THE [facility] Last Admin: 01/17/24 21:23 Dose: 300 mg Heparin Sodium (Porcine) (Heparin 5000 Unit/Ml 1 Ml Vial) 5,000 unit SQ Q8H COUNT INCLUDES THE [facility] Last Admin: 01/18/24 16:05 Dose: 5,000 unit Heparin Sodium (Porcine) (Heparin 1,000 Unit/Ml Vial) 6,000 unit IV EVERY HD PRN PRN Reason: AFTER EACH Heparin Sodium (Porcine) (Heparin 1,000 Unit/Ml Vial) 3,000 unit IV EVERY HD PRN PRN Reason: Prevent Sysem Clotting Last Admin: 01/18/24 11:42 Dose: 3,000 unit Albumin Human (Albumin 25%) 50 mls @ 100 mls/hr IV EVERY HD COUNT INCLUDES THE [facility] Cefepime HCl 1 gm/ Sodium (Chloride) 100 mls @ 200 mls/hr IV Q24H COUNT INCLUDES THE [facility] Last Admin: 01/18/24 18:00 Dose: 100 mls Insulin Glargine (Insulin Glargine 100 Unit/Ml) 33 unit SQ BID COUNT INCLUDES THE [facility] Last Admin: 01/18/24 09:06 Dose: 33 unit Insulin Human Regular (Insulin Regular (Human) 100 Unit/Ml) 0 unit SQ ACHS COUNT INCLUDES THE [facility]; Protocol Last Admin: 01/18/24 16:06 Dose: Not Given Losartan Potassium (Losartan Potassium 50 Mg Tablet) 50 mg PO BID COUNT INCLUDES THE [facility] Last Admin: 01/18/24 09:03 Dose: 50 mg Mannitol (Mannitol 25% 12.5 Gm/50 Ml Vial) 12.5 gm IV EVERY HD PRN PRN Reason: Titrate to SBP (MUST DEFINE) Morphine Sulfate (Morphine 2 Mg/Ml Syr) 2 mg IV Q8H PRN PRN Reason: Pain scale 8-10 (Severe) Last Admin: 01/18/24 09:09 Dose: 2 mg Pantoprazole Sodium (Pantoprazole 40 Mg Inj) 40 mg IVP DAILY COUNT INCLUDES THE [facility]; Protocol Last Admin: 01/18/24 09:03 Dose: 40 mg Sevelamer Carbonate (Sevelamer Carbonate 800 Mg Tablet) 2,400 mg PO TIDWM COUNT INCLUDES THE [facility] Last Admin: 01/18/24 16:06 Dose: 2,400 mg Sodium Chloride (Sodium Chloride 0.9% 10ml Inj) 10 ml IV UD PRN PRN Reason: Diluant Vitamin B Complex/Vit C/Folic Acid (Multivitamins,Therapeut 1 Tab) 1 tab PO DAILY COUNT INCLUDES THE [facility] Last Admin: 01/18/24 09:01 Dose: 1 tab Microbiology Results 01/15/24 15:00 Blood - Blood Aerobic Blood Culture - Preliminary No growth in 24 hours. 01/15/24 15:00 Blood - Blood Anaerobic Blood Culture - Preliminary No growth in 24 hours. 01/15/24 15:15 Blood - Blood Aerobic Blood Culture - Preliminary No growth in 24 hours. 01/15/24 15:15 Blood - Blood Anaerobic Blood Culture - Preliminary No growth in 24 hours. Assessment/ Plan: Nephrology No dyspnea No chest pain No acute events overnight He ordered a pizza to his room last night Vitals, medications, blood work and imaging reviewed in the chart General: In no apparent distress, Cooperative HEENT: Atraumatic Neck: Supple Respiratory: Normal air movement Cardiovascular: Regular rate/rhythm, Edema Gastrointestinal: Soft and benign, Non-distended Musculoskeletal: No clubbing, No contractures Integumentary: No rashes, No cyanosis Neurological: Normal speech Laboratory Data (last 24 hrs) 01/15/24 01/15/24 01/15/24 15:15 15:15 15:15 WBC 14.90 H Hgb 9.4 L Hct 29.4 L Plt Count 284 PT 12.7 H INR 1.14 APTT 29.8 Sodium 131 L Potassium 5.6 H BUN 46 H Creatinine 8.43 H Glucose 183 H Total Bilirubin 0.3 AST < 10 L ALT < 14 L Alkaline Phosphatase 89 Imagings Data: Exam:Foot Left 3 View CLINICAL HISTORY: Left foot pain FINDINGS: No fracture or dislocation seen Soft tissue ulceration right foot. No adjacent bony destruction seen. Large calcaneal spur. Vascular calcifications. Edema within the subcutaneous tissues Conclusions/Impression: ESRD on HD -HD TIW Hyperkalemia -Lokelma X1 HTN with CKD/ CHF -Continue Losartan Diastolic CHF, chronic -HD with UF DM II with CKD -RISS Anemia in CKD -Retacrit qHD CKD MBD Secondary HyperPTH -Continue Renvela -Continue Calcitriol Hospitalist note reviewed
[2024-01-19 09:01] LABS: Absolute Basophils 0.1 K/uL (0-0.5); Absolute Eosinophils 0.2 K/uL (0-0.5); Absolute Lymphocytes (CBC) 1.9 K/uL (0.7-4.9); Absolute Monocytes 0.8 K/uL (0.1-1.3); Absolute Neutrophil 6.6 K/uL (1.8-8.0); Basophils % 1.2 % (0-1.3); Eosinophils % 1.7 % (0-4.4); Hematocrit 33.8 % (39.6-49.0); Hemoglobin 11.1 g/dL (13.6-17.9); Lymphocytes % 20.1 % (15.3-44.8); MCHC 32.9 g/dL (32.0-36.0); MCV 97.2 fL (80-100); MPV 7.4 fL (7.6-11.3); Monocytes % 7.9 % (3.3-12.3); Neutrophils % 69.1 % (41.7-73.7); Nucleated Red Blood Cells % 0.2 % (0-0); Platelets 343 thou/uL (152-406); RBC Red Blood Cell Count 3.48 M/uL (4.33-5.43); Red Cell Distribution Width 16.5 % (12.1-15.2)
[2024-01-19 09:30] VITALS: O2SAT 98
[2024-01-19 09:40] LABS: ALT/SGPT < 14 U/L (16-61); AST/SGOT < 10 U/L (15-37); Albumin 2.6 g/dL (3.4-5.0); Albumin/Globulin Ratio 0.6 (1.1-1.8); Alkaline Phosphatase 101 U/L (45-117); Anion Gap 10.4 mEq/L (5.0-15.0); BUN Blood Urea Nitrogen 36 mg/dL (7-18); Bicarbonate 28 mEq/L (21-32); Bilirubin Total 0.2 mg/dL (0.2-1.0); Globulin 4.5 g/dL (2.3-3.5); Glomerular Filtration Rate 8 ml/min (=/>90); Glucose Level 200 mg/dL (74-106); Magnesium 2.3 mg/dL (1.6-2.4); Phosphorus 5.4 mg/dL (2.5-4.9); Potassium 4.4 mEq/L (3.5-5.1); Protein, Total 7.1 g/dL (6.4-8.2); Sodium Level 135 mEq/L (136-145)
--- NOTE | 2024-01-19 10:17 | P.DS ---
Admission Date: 01/15/24 Discharge Date: 01/19/24 Disposition: MA HOME/HOME HEALTH CARE Discharge Condition: GOOD Reason for Admission: Diabetic foot infection Brief History of Present Illness: History of Present Illness: Mr. Koenig is a 58-year-old gentleman with past medical history of diabetes, hypertension, CHF, end-stage renal disease, and chronic back pain. About a month ago he had a debridement of his left heel per Dr. Quintero but had problems with follow-up second to [place] authorization. He receives dialysis Mondays, Wednesdays, and Fridays with Dr. Reyes. He was apparently seen in the office today and they sent him to the emergency department to be admitted for wound evaluation per Dr. Quintero. We will admit him with IV antibiotics, consult Dr. Quintero and Dr. Reyes to coordinate dialysis and operative debridement of his left heel. - Physical Exam General: Oriented x3, Cooperative, Obese, Other (fatigued, fell asleep while talking) HEENT: Atraumatic, Normocephalic Neck: Supple Respiratory: Other (obvious sleep apnea with sats dipping to lower 80s when sleeping) Cardiovascular: Regular rate/rhythm, Edema Capillary refill: <2 Seconds Gastrointestinal: Soft and benign Musculoskeletal: No clubbing Integumentary: Diabetic ulcer, Other (with cellulitis) Neurological: Normal speech, Normal tone, Normal affect Lymphatics: No axilla or inguinal lymphadenopathy Hospital Course: Mr. Koenig is a 58-year-old gentleman with past medical history of diabetes, hypertension, CHF, end-stage renal disease, and chronic back pain. About a month ago he had a debridement of his left heel per Dr. Quintero but had problems with follow-up second to [place] authorization. He receives dialysis Mondays, Wednesdays, and Fridays with Dr. Reyes. He was apparently seen in the office today and they sent him to the emergency department to be admitted for wound evaluation per Dr. Quintero. We will admit him with IV antibiotics, consult Dr. Quintero and Dr. Reyes to coordinate dialysis and 01/16 operative debridement of his left heel. Debridement of necrotic left heel diabetic ulcer. Follow-up with nephrology for hemodialysis schedule, after discharge follow-up with surgery after discharge, with [facility], wound care per surgery instructions Wound cultures bottle positive for Pseudomonas, Citrobacter Freunii complex, treated with IV cefepime, will discharge home on gentamicin during hemodialysis(he will get a dose today, will need 8 doses dialysis after today during hemodialysis, Dr. Evans notified) wash with vashe, cover with guaze, and wrap loosely with kerlix home health and current clinical including wound care orders faxed to [facility] Assessment Diabetic foot ulcer with cellulitis and necrotic tissue-status post debridement with surgery, follow-up with surgery ESRD with hyperkalemia treated with hemodialysis Anemia of chronic disease follow-up with nephrology after Sleep obstructive sleep apnea, CPAP, Hypertension resume home antihypertensive Coreg, losartan Hyperlipidemia continue statin Obesity, diet diabetic diet INSTRUCTIONS: Physician Discharge Instructions: -Follow-up with surgery after -Follow-up with PCP in 1 to 2 weeks -Please call Dr. Gunderson at [phone] if any questions regarding hospital stay -Please call nursing station at [phone] if any nursing or medication questions -Return to the emergency room if symptoms worsen Diet: ADA, low sodium Activity: Fall precautions Vital Signs/Physical Exam: Temp Pulse Resp BP Pulse Ox 97.2 F 70 16 133/60 99 01/19/24 08:00 01/19/24 08:00 01/19/24 08:00 01/19/24 08:00 01/19/24 08:00 Laboratory Data at Discharge: WBC 9.60 thou/uL (4.3-10.9) 01/19/24 08:39 Hgb 11.1 g/dL (13.6-17.9) L 01/19/24 08:39 Hct 33.8 % (39.6-49.0) L 01/19/24 08:39 Plt Count 343 thou/uL (152-406) 01/19/24 08:39 PT 11.4 SECONDS (9.4-12.5) 01/16/24 04:11 INR 1.02 01/16/24 04:11 APTT 29.8 SECONDS (24.3-36.9) 01/15/24 15:15 Sodium 135 mEq/L (136-145) L 01/19/24 08:39 Potassium 4.4 mEq/L (3.5-5.1) 01/19/24 08:39 BUN 36 mg/dL (7-18) H 01/19/24 08:39 Creatinine 7.24 mg/dL (0.70-1.30) H 01/19/24 08:39 Glucose 200 mg/dL (74-106) H 01/19/24 08:39 Phosphorus 5.4 mg/dL (2.5-4.9) H 01/19/24 08:39 Magnesium 2.3 mg/dL (1.6-2.4) 01/19/24 08:39 Total Bilirubin 0.2 mg/dL (0.2-1.0) 01/19/24 08:39 AST < 10 U/L (15-37) L 01/19/24 08:39 ALT < 14 U/L (16-61) L 01/19/24 08:39 Alkaline Phosphatase 101 U/L (45-117) 01/19/24 08:39 Triglycerides 59 mg/dL (<150) 01/16/24 04:11 Cholesterol 64 mg/dL (<200) 01/16/24 04:11 HDL Cholesterol 37 mg/dL (40-60) L 01/16/24 04:11 Cholesterol/HDL Ratio 1.73 01/16/24 04:11 Home Medications: Gabapentin 300 mg PO DAILY 11/15/19 Insulin Detemir [Levemir Flextouch] 33 units SQ BID 11/15/19 Calcitrol [Rocaltrol*] 0.5 mcg PO DAILY #60 cap 11/19/19 carvediloL [Coreg*] 25 mg PO BID #60 tab 11/19/19 Aspirin [Vazalore] 1 tab PO DAILY 12/25/20 Atorvastatin Calcium 1 tab PO BEDTIME 12/25/20 Trazodone [Desyrel*] 100 mg PO BEDTIME 12/25/20 Bupropion HCl [Budeprion Xl] 300 mg PO DAILY 11/17/23 Docusate [Colace Cap*] 100 mg PO DAILY 11/17/23 Ferrous Gluconate 324 mg PO BID 11/17/23 Mecobalamin [B12 Active] 1,000 mcg PO DAILY 11/17/23 Epoetin [Procrit*] 10,000 unit IV EVERY HD vial 11/22/23 Losartan Potassium [Cozaar*] 50 mg PO BEDTIME #30 tab 11/22/23 Cyclobenzaprine [Flexeril*] 10 mg PO DAILY PRN 01/16/24 Sevelamer Carbonate [Renvela*] 800 mg PO TIDWM 01/16/24 Hydrocodone 10/APAP 325 [Benezett 10/325*] 1 tab PO Q8HP PRN #20 tab 01/19/24 New Medications: Hydrocodone 10/APAP 325 [Benezett 10/325*] 1 tab PO Q8HP PRN #20 tab PRN Reason: Pain Physician Discharge Instructions: PROBLEM: Chronic foot wound, ESRD GOAL: Clear understanding of disease process INSTRUCTIONS: Diet: diabetic diet Activity: Orders to resume home health faxed to: [facility] [phone] fax [phone] Order for shower chair has been sent to: [facility] [address] [facility] [address] [place] [id number] Mr. Koenig is a 58-year-old gentleman with past medical history of diabetes, hypertension, CHF, end-stage renal disease, and chronic back pain. About a month ago he had a debridement of his left heel per Dr. Quintero but had problems with follow-up second to [place] authorization. He receives dialysis Mondays, Wednesdays, and Fridays with Dr. Reyes. He was apparently seen in the office today and they sent him to the emergency department to be admitted for wound evaluation per Dr. Quintero. We will admit him with IV antibiotics, consult Dr. Quinteor and Dr. Reyes to coordinate dialysis and 01/16 operative debridement of his left heel. Debridement of necrotic left heel diabetic ulcer. Follow-up with nephrology for hemodialysis schedule, after discharge follow-up with surgery after discharge, wound care per surgery instructions Wound cultures bottle positive for Pseudomonas, Citrobacter Freunii complex, treated with IV cefepime in patient, will discharge home on will discharge home on gentamicin during hemodialysis(he will get a dose today, will need 8 doses dialysis during HD today during hemodialysis, Dr. Evans notified) wash with vashe, cover with guaze, and wrap loosely with kerlix [facility] and current clinical including wound care orders faxed to [facility] Assessment Diabetic foot ulcer with cellulitis and necrotic tissue-status post debridement with surgery, follow-up with surgery ESRD with hyperkalemia treated with hemodialysis Anemia of chronic disease follow-up with nephrology after Sleep obstructive sleep apnea, CPAP, Hypertension resume home antihypertensive Coreg, losartan Hyperlipidemia continue statin Obesity, diet diabetic diet INSTRUCTIONS: Physician Discharge Instructions: -Follow-up with nephrology after discharge -Follow-up with surgery after discharge -Follow-up with PCP in 1 to 2 weeks -Please call Dr. Gunderson at [phone] if any questions regarding hospital stay -Please call nursing station at [phone] if any nursing or medication questions -Return to the emergency room if symptoms worsen Diet: ADA, low sodium Activity: Fall precautions Followup: Zeke Russo DO [Primary Care Provider] - Keenan Quintero MD [ACTIVE - CAN ADMIT] - Time spent managing pt's care (in minutes): 55
--- NOTE | 2024-01-19 12:08 | EKG ---
Test Date: 2024-01-15 Test Time: 15:27:14 [employer]ving [employer] Operator: SAURABH MEASUREMENT RESULTS: Intervals: Rate: 69 NM: 134 QRSD: 82 QT: 386 QTc: 413 [place]: P: 14 NM: 134 QRS: -11 T: -2 INTERPRETIVE STATEMENTS: Normal sinus rhythm Low voltage QRS Inferior infarct, age undetermined Abnormal ECG Compared to ECG 02/10/2021 11:08:41 Low QRS voltage now present Left-axis deviation no longer present Myocardial infarct finding still present Electronically Signed On 01-19-24 11:57:36 CDT by Juancho Dailey
--- NOTE | 2024-01-19 12:14 | EKG ---
Test Date: 2024-01-19 Test Time: 11:55:52 Transmission Builder: KAMAR MEASUREMENT RESULTS: Intervals: Rate: 58 MN: 130 QRSD: 90 QT: 442 QTc: 433 [place]: P: 26 MN: 130 QRS: -12 T: 13 INTERPRETIVE STATEMENTS: Sinus bradycardia Possible Inferior infarct, age undetermined Abnormal ECG Compared to ECG 01/15/2024 15:27:14 Sinus rhythm no longer present Myocardial infarct finding still present Electronically Signed On 01-19-24 11:59:29 CDT by Juancho Dailey
[2024-01-19] MEDS: Gentamicin Inj 240 MG in NA CHLORIDE 0.9% 100 ML IVPB SCH (14:00)
[2024-01-19 15:23] VITALS: BP 103/52; TEMP 97
[2024-01-19] MEDS ORDERED: HYDROCODONE/APAP 5/325 MG TAB ONE (15:53)
[2024-01-19] MEDS: HYDROCODONE/APAP 5/325 MG TAB PO ONE (16:00)
[2024-01-19] MEDS: FLU (Fluarix Triv) TS24-25(6MOS UP)/PF 45 MCG/0.5 ML Syringe IM ONE (16:00)
--- NOTE | 2024-01-19 20:54 | P.PN ---
Date of Service: 01/19/24 Vital Signs Temp Pulse Resp BP Pulse Ox 97.0 F 60 16 103/52 L 98 01/19/24 12:00 01/19/24 12:00 01/19/24 16:00 01/19/24 12:00 01/19/24 16:00 Microbiology Results 01/15/24 15:00 Blood - Blood Aerobic Blood Culture - Preliminary No growth in 24 hours. 01/15/24 15:00 Blood - Blood Anaerobic Blood Culture - Preliminary No growth in 24 hours. 01/15/24 15:15 Blood - Blood Aerobic Blood Culture - Preliminary No growth in 24 hours. 01/15/24 15:15 Blood - Blood Anaerobic Blood Culture - Preliminary No growth in 24 hours. Assessment/ Plan: Nephrology No dyspnea No chest pain No acute events overnight Vitals, medications, blood work and imaging reviewed in the chart General: In no apparent distress, Cooperative HEENT: Atraumatic Neck: Supple Respiratory: Normal air movement Cardiovascular: Regular rate/rhythm, Edema Gastrointestinal: Soft and benign, Non-distended Musculoskeletal: No clubbing, No contractures Integumentary: No rashes, No cyanosis Neurological: Normal speech Laboratory Data (last 24 hrs) 01/15/24 01/15/24 01/15/24 15:15 15:15 15:15 WBC 14.90 H Hgb 9.4 L Hct 29.4 L Plt Count 284 PT 12.7 H INR 1.14 APTT 29.8 Sodium 131 L Potassium 5.6 H BUN 46 H Creatinine 8.43 H Glucose 183 H Total Bilirubin 0.3 AST < 10 L ALT < 14 L Alkaline Phosphatase 89 Imagings Data: Exam:Foot Left 3 View CLINICAL HISTORY: Left foot pain FINDINGS: No fracture or dislocation seen Soft tissue ulceration right foot. No adjacent bony destruction seen. Large calcaneal spur. Vascular calcifications. Edema within the subcutaneous tissues Conclusions/Impression: ESRD on HD -HD TIW Hyperkalemia -Lokelma X1 HTN with CKD/ CHF -Continue Losartan Diastolic CHF, chronic -HD with UF DM II with CKD -RISS Anemia in CKD -Retacrit qHD CKD MBD Secondary HyperPTH -Continue Renvela -Continue Calcitriol Left Heel Ulcer -Follow up with surgery -Continue Abx at HD Hospitalist note reviewed Case reviewed with hospitalist team
[2024-01-20] MEDS ORDERED: GENTAMICIN 100 MG/100 ML BAG 100 ML IV SCH (18:00)
== END 2024-01-19 16:59 | disposition home health service (06) | DRG 264 ==
LOC: ER 14:10 → 2ND 16:30
PROVIDERS: ADMIT Internal Medicine Sleep Medicine; ATTEND Hospitalist
PROC: 5A09457 Assistance with Respiratory Ventilation, 24-96 Consecutive Hours, Continuous Positive Airway Pressure (ICD-10-PCS; 2024-01-15)
PROC: 5A1D70Z Performance of Urinary Filtration, Intermittent, Less than 6 Hours Per Day (ICD-10-PCS; 2024-01-15)
PROC: 02PY33Z Removal of Infusion Device from Great Vessel, Percutaneous Approach (ICD-10-PCS; 2024-01-17)
PROC: 0JBR0ZZ Excision of Left Foot Subcutaneous Tissue and Fascia, Open Approach (ICD-10-PCS; principal; 2024-01-17 12:45)
DX: E11.52 Type 2 diabetes mellitus with diabetic peripheral angiopathy with gangrene (principal); N18.6 End stage renal disease; I50.32 Chronic diastolic (congestive) heart failure; I13.2 Hypertensive heart and chronic kidney disease with heart failure and with stage 5 chronic kidney disease, or end stage renal disease; Z68.41 Body mass index [BMI] 40.0-44.9, adult; L03.116 Cellulitis of left lower limb; N25.81 Secondary hyperparathyroidism of renal origin; E11.628 Type 2 diabetes mellitus with other skin complications; E87.5 Hyperkalemia; E66.01 Morbid (severe) obesity due to excess calories; E11.22 Type 2 diabetes mellitus with diabetic chronic kidney disease; E11.621 Type 2 diabetes mellitus with foot ulcer; L97.529 Non-pressure chronic ulcer of other part of left foot with unspecified severity; D63.1 Anemia in chronic kidney disease; E78.5 Hyperlipidemia, unspecified; G47.33 Obstructive sleep apnea (adult) (pediatric); G89.29 Other chronic pain; M54.9 Dorsalgia, unspecified; S91.312A Laceration without foreign body, left foot, initial encounter; Z99.2 Dependence on renal dialysis; Z79.4 Long term (current) use of insulin; Z79.899 Other long term (current) drug therapy; Z91.158 Patient's noncompliance with renal dialysis for other reason; B96.5 Pseudomonas (aeruginosa) (mallei) (pseudomallei) as the cause of diseases classified elsewhere
CPT/HCPCS: 36415; 80053; 80061; 82947; 83605; 83735; 84100; 84132; 85025; 85610; 85730; 87040; 87070; 87075; 87077; 87185; 87186; 87205; 87340; 88300; 88304; 90935; 93005; 94640; 94660; 96365; 96366; 99285; J0692; J1100; J1170; J1580; J1644; J2001; J2250; J2270; J2405; J2470; J2704; J3010; J7040; J7050; J7613; J7644

== ENCOUNTER 2024-03-05 08:49 | Emergency (ER) | payer MEDICARE ==
--- OUTSIDE RECORDS SUMMARY | 2024-03-05 08:55 | XMS REPORT | Continuity of Care Document ---
Author Name Unknown Address [address] [facility] [address] [place] [address] [facility] Address [address] [facility] [place] [address] Care Team Providers Care Final Inspector Shuttle Name Role Phone [place], [facility] Martha [facility] Primary Car e Physician Unavailable Koby Low Attending Clinician Unavailable DYUEN JUDD Attending Clinician Unavailable DUYEN JUDD Attending Clinician Unavailable Duyen Judd NP Attending Clinician [phone] Elbert --Kierra Attending Clinician Doctor Unassigned, [place] Attending Clinician U navailable CATALINA PRECIADO Attending Clinician Unavailable Catalina Preciado MD Attending Clinician [phone] Tommy Sosa Attending Clinician Unavailable Glory Muñiz RN Attending Clinician Unavailable Only, Ang Db Test Attending Clinician UnavailDiana Mustafa Attending Clinician [phone] HAYLIE RAMÍREZ Attending Clinician Unavailable Rebecca Hubbard DO Attending Clinician [phone] Haylie Ramírez MD Attending Clinician [phone] Koby Low Admitting Clinician Unavailable Zeke Russo Admitting Clinician Unavailable DUYEN JUDD Admitting Clinician Unavailable Tommy Sosa Admitting Clinician Unavailable HAYLIE RAMÍREZ Admitting Clinician Unavailable Haylie Ramírez MD Admitting Clinician [phone] Payers Payer Name Policy Type Policy Number Effective Date Expirati on Date Source [facility] [id number] 2022 00:00:00 [employer] MEDIC[employer] ADVANTAGE PLAN DFGIANNA 2023 00:00:00 [employer] [facility] REPLACEMENT H[facility]) [facility]00 Problems Condition Name Condition Details Condition Category Status Onset Date Resolution Date Last Treatment Date Treating Clinician Comments Source Morbid obesity with body mass index of 40.0-49.9 Morbid obesity with body mass index of 40.0-49.9 Disease Active 10-22 00:00: 00 [facility] Acute on chronic renal insufficie ncy Acute on chronic renal insufficie ncy Disease Active 10-22 00:00: 00 [facility] Alcohol dependence Alcohol dependence Disease Active 10-22 00:00: 00 [facility] Benign essential hypertensi on Benign essential hypertensi on Disease Active 10-22 00:00: 00 [facility] Cannabis abuse Cannabis abuse Disease Active 10-22 00:00: 00 [facility] Cocaine abuse Cocaine abuse Disease Active 10-22 00:00: 00 [facility] Congestive heart failure Congestive heart failure Disease Active 10-22 00:00: 00 [facility] Depressive disorder Depressive disorder Disease Active 10-22 00:00: 00 [facility] Diabetes mellitus Diabetes mellitus Disease Active 10-22 00:00: 00 [facility] Legal blindness [place] Legal blindness [place] Disease Active 10-22 00:00: 00 Overview: Formattin g of this note might be different from the original. Mar 12, 2020 Entered By: DON MARSH Comment: per 03/11/20 EYE NOTE [facility] Morbid obesity with body mass index of 40.0-49.9 Morbid obesity with body mass index of 40.0-49.9 Disease Active - 00:00: 00 [facility] Allergies, Adverse Reactions, Alerts Allergy Name Allergy Type Status Severity Reaction(s) Onset Date Inactive Date Treating Clinician Comments Source No Known Allergie s DA Active U 8-11 00:00: 00 [facility] No Known Allergie s DA Active U 2021-04 2-26 00:00: 00 [facility] NO KNOWN ALLERGIE S Drug Class Active [facility] Social History Social Habit Start Date Stop Date Quantity Comments Source [facility] SARS-[facility]2 (event) 2022-06-24 00:00:00 2022-07-04 11:43:00 Not sure [facility] Sex assigned at 1965 00:00:00 1965 00:00:00 [facility] Smoking Status Start Date Stop Date Source Tobacco smoking consumption unknown [facility] Medications Ordered Medication Name Filled Medication Name [...] Soft Tissue, Duration of Therapy: Once (ED) [facility] ketorolac (TORADOL) injection 30 mg 11-10 16:30: 00 11-10 15:44 :00 No 30mg 30 mg, Slow IV Push, ONCE, 1 dose, On Tue11/11/23 at 1130, Routine [facility] traMADoL 50 mg tablet 11-10 00:00: 00 11-18 04:59 :00 No [id number] 50mg Take 1 tablet by mouth every 6 (six) hours as needed for Pain (scale 7-10) for up to 7 days. Indication s: acute pain [facility] sulfamethox azole-trime thoprim 800-160 mg per tablet 11-10 00:00: 00 11-18 04:59 :00 No [id number] 1{tbl} Take 1 tablet by mouth every 12 (twelve) hours for 7 days. [facility] cephALEXin 500 mg capsule 11-10 00:00: 00 11-18 04:59 :00 No [id number] 1000mg Take 2 capsules by mouth in the morning and 2 capsules in the evening. Do all this for 7 days. [facility] calcitrioL 0.5 mcg capsule 10-24 00:00: 00 11-24 04:59 :00 No [id number] .5ug Take 1 capsule by mouth daily for 30 days. [facility] amLODIPine 5 mg tablet 10-24 00:00: 00 11-24 04:59 :00 No [id number] 5mg Take 1 tablet by mouth daily for 30 days. [facility] Cholecalcif jake, Vitamin D3, (VITAMIN D3) 125 mcg (5,000 unit) tablet 10-23 23:01: 32 Yes 5000U Take 5,000 Units by mouth daily. [facility] insulin detemir U-100 (LEVEMIR U-100 INSULIN) 100 unit/mL injection 10-23 23:01: 32 Yes 33U inject 33 Units under the skin 2 (two) times daily with meals. [facility] NOVOLOG U-100 INSULIN ASPART SC 10-23 23:01: 32 Yes 11U inject 11 Units under the skin 2 (two) times daily with meals. [facility] ARIPiprazol e (ABILIFY) 5 mg tablet 10-23 23:01: 31 Yes 5mg Take 5 mg by mouth daily. [facility] aspirin 81 mg chewable tablet 10-23 23:01: 31 Yes 81mg Take 81 mg by mouth daily. [facility] buPROPion XL 300 mg 24 hr tablet 10-23 23:01: 31 Yes 300mg Take 300 mg by mouth daily. [facility] vitamin B-12 1,000 mcg tablet 10-23 23:01: 31 Yes 1000ug Take 1,000 mcg by mouth daily. [facility] ferrous gluconate 324 mg (37.5 mg iron) tablet 10-23 23:01: 31 Yes 324mg Take 324 mg by mouth 2 (two) times daily. [facility] furosemide 80 mg tablet 10-23 23:01: 31 Yes 80mg Take 80 mg by mouth 2 (two) times daily. [facility] ergocalcife rol, vitamin d2, 1,250 mcg (50,000 unit) capsule 10-23 20:02: 43 10-23 00:00 :00 No [id number] Take 50,000 Units by mouth weekly. [facility] Cholecalcif jake, Vitamin D3, (VITAMIN D3) 125 mcg (5,000 unit) tablet 10-23 18:01: 32 Yes 5000U Take 5,000 Units by mouth daily. [facility] insulin detemir U-100 (LEVEMIR U-100 INSULIN) 100 unit/mL injection 10-23 18:01: 32 Yes 33U inject 33 Units under the skin 2 (two) times daily with meals. [facility] NOVOLOG U-100 INSULIN ASPART SC 10-23 18:01: 32 Yes 11U inject 11 Units under the skin 2 (two) times daily with meals. [facility] ARIPiprazol e (ABILIFY) 5 mg tablet 10-23 18:01: 31 Yes 5mg Take 5 mg by mouth daily. [facility] aspirin 81 mg chewable tablet 10-23 18:01: 31 Yes 81mg Take 81 mg by mouth daily. [facility] buPROPion XL 300 mg 24 hr tablet 10-23 18:01: 31 Yes 300mg Take 300 mg by mouth daily. [facility] vitamin B-12 1,000 mcg tablet 10-23 18:01: 31 Yes 1000ug Take 1,000 mcg by mouth daily. [facility] ferrous gluconate 324 mg (37.5 mg iron) tablet 10-23 18:01: 31 Yes 324mg Take 324 mg by mouth 2 (two) times daily. [facility] furosemide 80 mg tablet 10-23 18:01: 31 Yes 80mg Take 80 mg by mouth 2 (two) times daily. [facility] Sliding Scale Insulin - Lispro (HumaLOG) + Fsbg Testing 10-23 17:00: 00 Yes Subcutaneo us, TID MEALS+HS, First dose on Tue10/23/20 at 1200, Until Discontinu ed, Routine [facility] insulin glargine (LANTUS U-100) injection 33 Units 10-23 15:30: 00 Yes 33U 33 Units, Subcutaneo us, BID, First dose on Tue10/23/20 at 1030, Until Discontinu ed, Routine [facility] vitamin B-12 (CYANOCOBAL LINK) tablet 1,000 mcg 10-23 14:00: 00 Yes 1000ug 1,000 mcg, Oral, DAILY, First dose on Tue10/23/20 at 0900, Until Discontinu ed, Routine [facility] ergocalcife rol (vitamin d2) (CALCIFEROL ) capsule 50,000 Units 10-23 14:00: 00 Yes [id number] 50,000 Units, Oral, QWEEKLY, First dose on Tue10/23/20 at 0900, Until Discontinu ed, Routine [facility] citalopram (CELEXA) tablet 40 mg 10-23 14:00: 00 Yes 40mg 40 mg, Oral, DAILY, First dose on Tue10/23/20 at 0900, Until Discontinu ed, Routine [facility] cholecalcif jake (vitamin D3) tablet 5,000 Units 10-23 14:00: 00 Yes 5000U 5,000 Units, Oral, DAILY, First dose on Tue10/23/20 at 0900, Until Discontinu ed [facility] aspirin chewable tablet 81 mg 10-23 14:00: 00 Yes 81mg 81 mg, Oral, DAILY, First dose on Tue10/23/20 at 0900, Until Discontinu ed, Routine [facility] ARIPiprazol e (ABILIFY) tablet 5 mg 10-23 14:00: 00 Yes 5mg 5 mg, Oral, DAILY, First dose on Tue10/23/20 at 0900, Until Discontinu ed, Routine [facility] traMADoL (ULTRAM) tablet 50 mg 10-23 10:16: 54 Yes 50mg 50 mg, Oral, Q6HPRN, Starting Tue10/23/20 at 0516, Until Discontinu ed, Routine, Pain (scale 4-6) [facility] amLODIPine (NORVASC) tablet 5 mg 10-23 04:00: 00 Yes 5mg 5 mg, Oral, DAILY, First dose on Tue10/22/20 at 2300, Until Discontinu ed, Routine [facility] hydralAZINE (APRESOLINE ) injection 20 mg 10-23 03:56: 39 Yes 20mg 20 mg, Slow IV Push, Q4HPRN, Starting Tue10/22/20 at 2256, Until Discontinu ed, STAT, DBP=>100; SBP=>180<b r>Indicati on: Hypertensi ve Emergency [facility] atorvastati n (LIPITOR) tablet 40 mg 10-23 02:00: 00 Yes 40mg 40 mg, Oral, QHS, First dose on Tue10/22/20 at 2100, Until Discontinu ed, Routine [facility] furosemide (LASIX) tablet 80 mg 10-23 01:00: 00 Yes 80mg 80 mg, Oral, BID, First dose on Tue10/22/20 at 2000, Until Discontinu ed, Routine [facility] ferrous sulfate tablet 325 mg 10-23 01:00: 00 Yes 325mg 325 mg, Oral, BID, First dose on Tue10/22/20 at 2000, Until Discontinu ed [facility] ergocalcife rol, vitamin d2, 1,250 mcg (50,000 unit) capsule 10-23 00:00: 00 Yes [id number] Take 1 capsule by mouth weekly. [facility] D5W IV infusion 1,000 mL 10-22 22:15: 00 Yes [id number] 1000mL at 50 mL/hr, IV Infusion, CONTINUOUS , Starting Tue10/22/20 at 1715, Until Discontinu ed, Routine [facility] thiamine (VITAMIN B1) 200 mg in NaCl 0.9% (NS) piggyback 10-22 22:15: 00 10-22 22:45 :00 No [id number] 200mg IV Piggyback, ONCE, 1 dose, Tue10/22/20 at 1715, 50 mL [facility] insulin lispro (human) (HumaLOG U-100) injection 11 Units 10-22 21:30: 00 Yes 11U 11 Units, Subcutaneo us, BIDAC, First dose on Tue10/22/20 at 1630, Until Discontinu ed [facility] heparin (porcine) injection 5,000 Units 10-22 19:00: 00 Yes 5000U 5,000 Units, Subcutaneo us, Q8H, First dose on Tue10/22/20 at 1400, Until Discontinu ed, Routine [facility] ondansetron (ZOFRAN (PF)) injection 4 mg 10-22 17:49: 47 Yes 4mg 4 mg, Slow IV Push, Q6HPRN, Starting Tue10/22/20 at 1249, Until Discontinu ed, Routine, Nausea and Vomiting (N/V) [facility] acetaminoph en (TYLENOL) tablet 650 mg 10-22 17:49: 38 Yes 650mg 650 mg, Oral, Q6HPRN, Starting Tue10/22/20 at 1249, Until Discontinu ed, Routine, Pain (scale 1-3) [facility] atorvastati n calcium 40 mg tablet atorvastati [...] calcitriol 0.25 mcg capsule Yes [facility] bupropion hcl er (xl) 150 mg tablet er 24 hr bupropion hcl er (xl) 150 mg tablet er 24 hr Yes [facility] atropine sulfate 1 % solution atropine sulfate 1 % solution Yes [facility] Immunizations Ordered Immunization Name Filled Immunization Name Date Status Comments Source Zoster Vaccine Recombinant 2020-08-07 00:00:00 Completed [facility] Zoster Vaccine Recombinant 2020-08-07 00:00:00 Completed [facility] Zoster Vaccine Recombinant 2020-08-07 00:00:00 Completed [facility] Zoster Vaccine Recombinant 2020-08-07 00:00:00 Completed [facility] Zoster Vaccine Recombinant 2020-08-07 00:00:00 Completed [facility] SARS-COV-2 COVID-19 PFIZER VACCINE 2020-06-13 00:00:00 Completed [facility] SARS-COV-2 COVID-19 PFIZER VACCINE 2020-06-13 00:00:00 Completed [facility] SARS-COV-2 COVID-19 PFIZER VACCINE 2020-06-13 00:00:00 Completed [facility] SARS-COV-2 COVID-19 PFIZER VACCINE 2020-06-13 00:00:00 Completed [facility] SARS-COV-2 COVID-19 PFIZER VACCINE 2020-06-13 00:00:00 Completed [facility] Pneumococcal 13 Conjugate, PCV13 (Prevnar 13) 2020-04-18 00:00:00 Completed [facility] Pneumococcal 13 Conjugate, PCV13 (Prevnar 13) 2020-04-18 00:00:00 Completed [facility] Pneumococcal 13 Conjugate, PCV13 (Prevnar 13) 2020-04-18 00:00:00 Completed [facility] Pneumococcal 13 Conjugate, PCV13 (Prevnar 13) 2020-04-18 00:00:00 Completed [facility] Pneumococcal 13 Conjugate, PCV13 (Prevnar 13) 2020-04-18 00:00:00 Completed [facility] Influenza Virus Vaccine Quad IM 3+ YRS 2019-12-27 00:00:00 Completed [facility] Influenza Virus Vaccine Quad IM 3+ YRS 2019-12-27 00:00:00 Completed [facility] Influenza Virus Vaccine Quad IM 3+ YRS 2019-12-27 00:00:00 Completed [facility] Influenza Virus Vaccine Quad IM 3+ YRS 2019-12-27 00:00:00 Completed [facility] Influenza Virus Vaccine Quad IM 3+ YRS 2019-12-27 00:00:00 Completed [facility] Influenza Virus Vaccine 2019-05-05 00:00:00 Completed [facility] Influenza Virus Vaccine 2019-05-05 00:00:00 Completed [facility] Influenza Virus Vaccine 2019-05-05 00:00:00 Completed [facility] Influenza Virus Vaccine 2019-05-05 00:00:00 Completed [facility] Influenza Virus Vaccine 2019-05-05 00:00:00 Completed [facility] TDAP 2017-05-11 00:00:00 Completed [facility] TDAP 2017-05-11 00:00:00 Completed [facility] TDAP 2017-05-11 00:00:00 Completed [facility] TDAP 2017-05-11 00:00:00 Completed [facility] TDAP 2017-05-11 00:00:00 Completed [facility] Influenza Virus Vaccine 2014-12-26 00:00:00 Completed [facility] Influenza Virus Vaccine (3+ yrs) 2014-12-26 00:00:00 Completed [facility] Influenza Virus Vaccine 2014-12-26 00:00:00 Completed [facility] Influenza Virus Vaccine (3+ yrs) 2014-12-26 00:00:00 Completed [facility] Influenza Virus Vaccine 2014-12-26 00:00:00 Completed [facility] Influenza Virus Vaccine (3+ yrs) 2014-12-26 00:00:00 Completed [facility] Influenza Virus Vaccine 2014-12-26 00:00:00 Completed [facility] Influenza Virus Vaccine (3+ yrs) 2014-12-26 00:00:00 Completed [facility] Influenza Virus Vaccine 2014-12-26 00:00:00 Completed [facility] Influenza Virus Vaccine (3+ yrs) 2014-12-26 00:00:00 Completed [facility] SARS-COV-2 COVID-19 PFIZER VACCINE Unknown Completed [facility] Influenza Virus Vaccine Unknown Completed [facility] Influenza Virus Vaccine Quad IM 3+ YRS Unknown Completed [facility] Influenza Virus Vaccine (3+ yrs) Unknown Completed [facility] Pneumococcal 13 Conjugate, PCV13 (Prevnar 13) Unknown Completed [facility] TDAP Unknown Completed [facility] Zoster Vaccine Recombinant Unknown Completed [facility] Vital Signs Vital Name Observation Time Observation Value Comments S ource Systolic blood pressure 2023-11-11 18:09:00 134 mm[Hg] [facility] Diastolic blood pressure 2023-11-11 18:09:00 79 mm[Hg] [facility] Heart rate 2023-11-11 18:09:00 71 /min [facility] Body temperature 2023-11-11 18:09:00 36.22 Madalyn [facility] Respiratory rate 2023-11-11 18:09:00 18 /min [facility] Oxygen saturation in Arterial blood by Pulse oximetry 2023-11-11 18:09:00 96 /min [facility] Body height 2023-11-11 14:57:00 175.3 cm [facility] Body weight 2023-11-11 14:57:00 136.079 kg [facility] BMI 2023-11-11 14:57:00 44.30 kg/m2 [facility] Systolic blood pressure 2022-07-04 19:00:00 106 mm[Hg] [facility] Diastolic blood pressure 2022-07-04 19:00:00 57 mm[Hg] [facility] Heart rate 2022-07-04 19:00:00 51 /min [facility] Respiratory rate 2022-07-04 19:00:00 14 /min [facility] Oxygen saturation in Arterial blood by Pulse oximetry 2022-07-04 19:00:00 93 /min [facility] Body temperature 2022-07-04 16:43:00 36.06 Madalyn [facility] Body height 2022-07-04 16:43:00 177.8 cm [facility] Body weight 2022-07-04 16:43:00 149.687 kg [facility] BMI 2022-07-04 16:43:00 47.35 kg/m2 [facility] Systolic blood pressure 2020-10-23 21:02:00 94 mm[Hg] [facility] Diastolic blood pressure 2020-10-23 21:02:00 67 mm[Hg] [facility] Heart rate 2020-10-23 21:02:00 59 /min [facility] Body temperature 2020-10-23 21:02:00 36.56 Madalyn [facility] Respiratory rate 2020-10-23 21:02:00 13 /min [facility] Oxygen saturation in Arterial blood by Pulse oximetry 2020-10-23 21:02:00 94 /min [facility] Body height 2020-10-22 20:03:00 177.8 cm [facility] Body weight 2020-10-22 20:03:00 140.615 kg [facility] BMI 2020-10-22 20:03:00 44.48 kg/m2 [facility] Procedures Procedure Date / Time Performed Performing Clinician Source [id number] 2023-11-13 00:00:00 VICKEY EDGE [facility] DUPLEX VENOUS LEG LEFT - BY VASCULAR LAB 2023-11-11 15:47:00 Duyen Judd [facility] PHOSPHORUS 2023-11-11 15:38:00 Duyen Judd [facility] MAGNESIUM 2023-11-11 15:38:00 Duyen Judd [facility] COMP. METABOLIC PANEL ([id number]) 2023-11-11 15:38:00 Duyen Judd [facility] CBC WITH DIFF 2023-11-11 15:38:00 Duyen Judd [facility] REFERRAL- REQUEST/RESPONSE 2022-08-05 05:01:00 D dayana Unassigned, [place] [facility] COMP. METABOLIC PANEL ([id number]) 2022-07-04 17:28:00 Catalina Preciado [facility] CBC WITH DIFF 2022-07-04 17:28:00 Catalina Preciado [facility] PROTHROMBIN TIME / INR 2022-07-04 17:28:00 Jason Preciado [facility] ACTIVATED PARTIAL THRMPLAS TOYA 2022-07-04 17:28:00 Ozzy [facility] [id number] 2022-03-31 00:00:00 CHERYL.01 [facility] [id number] 2022-03-29 00:00:00 CHERYL.01 [facility] [id number] 2022-03-29 00:00:00 CHERYL.01 [facility] MAGNESIUM 2020-10-23 09:20:00 [facility]OL[facility] PANEL (NA, K, CL, CO2, GLUCOSE, BUN, CREATININE, CA) 2020-10-23 09:20:00 Haylie Ramírez [facility] CBC WITH DIFF 2020-10-23 09:20:00 [facility] 2020-10-23 00:59:00 Lisset Ramírez [facility] XR CHEST 2 VW 2020-10-23 00:43:19 Jojo Madrigal [facility] US RETROPERITONEAL COMPLETE 2020-10-22 23:18:55 [facility] FERRITIN SERUM 2020-10-22 21:56:00 Jojo Madrigal [facility] TOTAL IRON BINDING CAPACITY 2020-10-22 21:56:00 Kaitlin, Brigani [facility] THYROID STIMULATING HORMONE 2020-10-22 21:56:00 Jojo Madrigal [facility] INTACT PTH CALCIUM GROUP 2020-10-22 21:56:00 Saroj Madrigal [facility] HEPATITIS B SURFACE ANTIBODY 2020-10-22 21:56:00 Jojo Madrigal [facility] HEPATITIS B SURFACE ANTIGEN 2020-10-22 21:56:00 Jojo Madrigal [facility] HBC ANTIBODY (IGM & IGG) 2020-10-22 21:56:00 Saroj Madrigal [facility] N-TERMINAL PRO-BNP 2020-10-22 21:56:00 Jojo Madrigal [facility] VITAMIN D, 25-OH 2020-10-22 21:56:00 Jojo Madrigal [facility] POCT GLUCOSE (AUTOMATED) 2020-10-22 21:37:00 Lisset Ramírez [facility] URINE DRUG (IMMUNOASSAY) - COMPREHENSIVE DRUG SCREEN 2020-10-22 19:35:00 Meg Stinson [facility] GLYCOSYLATED HEMOGLOBIN (A1C) 2020-10-22 19:35:00 Meg Stinson [facility] OSMOLALITY URINE 2020-10-22 19:31:00 Jojo Madrigal [facility] URINALYSIS 2020-10-22 19:31:00 Rebecca Hubbard [facility] VITAMIN D, 25-OH 2020-10-22 19:31:00 Haylie Ramírez [facility] CREATININE, URINE RANDOM 2020-10-22 19:31:00 Saroj Madrigal [facility] TOTAL PROTEIN, URINE RANDOM 2020-10-22 19:31:00 Jojo Madrigal [facility] POTASSIUM, URINE RANDOM 2020-10-22 19:31:00 Nisha Madrigal [facility] SODIUM, URINE RANDOM 2020-10-22 19:31:00 To Madrigal [facility] PHOSPHORUS 2020-10-22 19:30:00 Haylie Ramírez [facility] CREATINE KINASE 2020-10-22 19:30:00 Jojo Madrigal Un [facility] URIC ACID 2020-10-22 19:30:00 Desiree Haylie [facility] FERRITIN SERUM 2020-10-22 19:30:00 Haylie Ramírez [facility] IRON 2020-10-22 19:30:00 Desiree [facility] TOTAL IRON BINDING CAPACITY 2020-10-22 19:30:00 Haylie Ramírez [facility] INTACT PTH CALCIUM GROUP 2020-10-22 19:30:00 Lisset Ramírez [facility] HB ECG ROUTINE & RHYTHM STRIP 2020-10-22 16:16:29 Rebecca Hubbard [facility] COVID-19 (ID NOW RAPID TESTING) 2020-10-22 16:12:00 Rebecca Hubbard [facility] PHOSPHORUS 2020-10-22 15:15:00 Jojo Madrigal [facility] MAGNESIUM 2020-10-22 15:15:00 Rebecca Hubbard [facility] TROPONIN I 2020-10-22 15:15:00 Rebecca Hubbard [facility] COMP. METABOLIC PANEL (24690) 2020-10-22 15:15:00 Rebecca Hubbard [facility] CBC WITH DIFF 2020-10-22 15:15:00 Rebecca Hubbard [facility] NOTICE OF PRIVACY PRACTICES 2020-10-22 14:39:44 Doctor Unassigned, [place] [facility] CONSENT/REFUSAL FOR DIAGNOSIS AND TREATMENT 2020-10-22 14:37:51 Doctor Unassigned, [place] [facility] Encounters Start Date/Time End Date/Time Encounter Type Admission Type Attending Clinicians Care Facility Care Department Encounter ID Source 2023-11-13 15:44:00 2023-11-14 19:34:00 Inpatient EM Koby Low [facility]02 [id number] [facility] 2023-11-13 17:56:00 2023-11-13 17:56:00 Outpatient Koby Low [facility]O [id number] [facility] 2023-11-11 10:02:00 2023-11-11 13:37:00 Emergency X DUYEN JUDD NELLAELICIADUYEN [facility] ERT [id number] [facility] 2023-11-11 10:02:00 2023-11-11 13:37:00 Emergency BrendaDuyen [facility] 1.2840.114 350.1.13.10 4.2.7.2.686 [id number] [facility] 2023-11-10 12:00:00 2023-11-10 13:00:00 Initial D2Me Kierra Boswell 2.16.840. [id number] 2.16.840.1. [id number] [facility] 2022-10-02 00:00:00 2022-10-02 00:00:00 Outpatient DMG DM [id number] [facility] 2022-08-05 00:00:00 2022-08-05 00:00:00 Orders Only Doctor Unassigned, [place] [facility] 1.2.840.114 350.1.13.10 4.2.7.2.686 [id number] [facility] 2022-07-04 11:42:00 2022-07-04 15:00:00 Emergency X CATALINA PRECIADO [facility] ERT [id number] [facility] 2022-07-04 11:42:00 2022-07-04 15:00:00 Emergency Catalina Preciado [facility] 1.84.114 350.1.13.10 4.2.7.2.686 [id number] [facility] 2022-03-30 18:47:00 2022-03-31 17:09:00 Inpatient Tommy Beckford [facility] TELE [id number] [facility] 2021-04-30 00:00:00 2021-04-30 00:00:00 Telephone Glory Muñiz [facility] 1.2.840.114 350.1.13.10 4.2.7.2.686 [id number] [facility] 2021-04-28 15:30:00 2021-04-28 15:45:00 Laboratory Only Only, Ang Db Test [facility] 1.2.840.114 350.1.13.10 4.2.7.2.686 [id number] [facility] 2020-10-22 09:47:00 2020-10-23 17:45:00 Outpatient [facility] [id number] [facility] 2020-10-22 09:47:00 2020-10-23 17:45:00 Emergency Rebecca Hubbard [facility] 1.2.840.114 350.1.13.10 4.2.7.2.686 [id number] [facility] Results Test Description Test Time Test Comments Results Result Co mments Source AG HEPATITIS B [id number] 06:12:00* Test Item Value Reference Range Interpretation Comme nts AG HEPATITIS B SURFACE (test code = HBSAG) NEGATIVE SCREEN NEGATIVE AB HEPATITIS B [id number] 06:12:00* Test Item Value Reference Range Interpretation Comme nts AB HEPATITIS B CORE (test code = HBCAB) Negative Negative Performed At : [facility] [address] [id number] Kyle L MD Ph:[phone] AB HEPATITIS [id number] 06:12:00* Test Item Value Reference Range Interpretation Comme nts AB HEPATITIS C (test code = HCVAB) Non Reactive RATIO Non Reactive HCV antibody alone d oes not differentiate betweenpreviously resolved infection and active infection.Equivocal and Reactive HCV antibody results should befollowed up with an HCV RNA test to support the diagnosisof active HCV infection. BASIC METABOLIC [id number] 06:38:00* Test Item Value Reference Range Interpretation [...] CA) 8.7 MG/DL 8.5-10.1 N COMPREHENSIVE METABOLIC [id number] 06:38:00* Test Item Value Reference Range Interpretation [...] ALKP) 146 Unit/L 50-136 H CBC W/AUTO [id number] 06:12:00* Test Item Value Reference Range Interpretation [...] code = NRBC#) 0.0 K/mm3 0.00-0.01 N [id number] 20:14:00* Test Item Value Reference Range Interpretation Comme nts MAGNESIUM (test code = MAG) 2.2 MG/DL 1.8-2.4 N COVID 19 INHOUSE [id number] 17:45:00* Test Item Value Reference Range Interpretation Comme nts COVID 19 INHOUSE AG (test code = [id number]) NEGATIVE Negative 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 PROTHROMBIN [id number] 17:43:00* Test Item Value Reference Range Interpretation Comme [facility] PT PATIENT (test code = PTP) [...] Infarction (to prevent recurrent infarct). THROMBOPLASTIN TIME [id number] 17:43:00* Test Item Value Reference Range Interpretation Comme [facility] THROMBOPLASTIN TIME PARTIAL (test code = PTT) 30.6 SECONDS 26-35 N NT PRO-BRAIN NATRIURETIC [id number] 17:27:00* Test Item Value Reference Range Interpretation Comme nts NT PRO-BRAIN NATRIURETIC PEP TI (test code = PROBNP) 8847 PG/ML 0-100 H TROP-I HIGH [id number] 17:27:00* Test Item Value Reference Range Interpretation [...] and URLs may varyby method. BASIC METABOLIC [id number] 17:27:00* Test Item Value Reference Range Interpretation [...] CA) 8.4 MG/DL 8.5-10.1 L HEPATIC FUNCTION [id number] 17:27:00* Test Item Value Reference Range Interpretation [...] code = ALKP) 137 Unit/L 50-136 H [id number] 17:27:00* Test Item Value Reference Range Interpretation Comme nts LIPASE (test code = LIP) 19 Unit/L 13-75 N CBC W/AUTO [id number] 16:56:00* Test Item Value Reference Range Interpretation [...] = NRBC#) 0.0 K/mm3 0.00-0.01 N LACTIC [id number] 16:33:00* Test Item Value Reference Range Interpretation Comme nts LACTIC ACID (test code = LACT) 0.2 mmol/L 0.4-1.9 L [id number] 16:05:28* Test Item Value Reference Range Interpretation Comme nts MAGNESIUM (test code = 7297720537) 1.8 mg/dL 1.7-2.4 Lab Interpretation (test cod e = 30923-1) Normal [facility]OL[facility] (05987)2023-11-11 16:05:07* Test Item Value Reference Range Interpretation Comme nts NA (test code = 1070777012) 136 mmol/L 135-145 K (test code = 7384417067) 5.5 mmol/L 3.5-5.0 H CL (test code = 4601445717) 98 mmol/L 98-108 CO2 TOTAL (test code = 9058427230) 21 mmol/L 23-31 L AGAP (test code = 2056341910) 17 2-16 H BUN (test code = 3353658012) 57 mg/dL 7-23 H GLUCOSE (test code = 1638514380) 109 mg/dL 70-110 CREATININE (test code = 2160-0) 10.04 mg/dL 0.60-1.25 H TOTAL BILI (test code = 8884803460) 0.8 mg/dL 0.1-1.1 CALCIUM (test code = 9457978410) 8.8 mg/dL 8.6-10.6 T PROTEIN (test code = 7972964396) 8.0 g/dL 6.3-8.2 ALBUMIN (test code = 5731790578) 4.1 g/dL 3.5-5.0 ALK PHOS (test code = 5007989334) 105 U/L 34-122 ALTv (test code = 1742-6) 13 U/L 5-50 AST(SGOT) (test code = 1505371549) 18 U/L 13-40 eGFR (test code = 29847-9) 5.5 mL/min/1.73m2 CKD-EPI eGFR (2020). Assuming creatinine has been stable day-to-day for at least three months, the eGFR indicates Category G5 (<= 14mL/min/1.73 m2) Lab Interpretation (test code = 94186-2) Abnormal [facility]24-[facility] 16:04:51* Test Item Value Reference Range Interpretation Comme nts PHOSPHORUS (test code = 7520495161) 6.7 mg/dL 2.5-5.0 H Lab Interpretation (test cod e = 23649-8) Abnormal [facility] WITH [id number] 15:50:27* Test Item Value Reference Range Interpretation [...] 32.6 g/dL 31.2-35.0 RDW-SD (test code = 46925-4) 48.6 fL 38.5-51.6 RDW-CV (test code = 788-0) 13.6 % 12.1-15.4 PLT (test code = 777-3) 213 150-328 MPV (test code = 94383-9) 10.1 fL 9.8-13.0 NRBC/100 WBC (test code = 4209017841) 0.0 0.0-10.0 NRBC x10^3 (test code = 4991194037) See_Comment [Automated message] The system which generated this result transmitted reference range: 10*3/?L. The reference range was not used to interpret this result as normal/abnormal. GRAN MAT (NEUT) % (test code = 770-8) 82.5 % IMM GRAN % (test code = 6063569749) 0.60 % LYMPH % (test code = 736-9) 6.8 % MONO % (test code = 5905-5) 8.9 % EOS % (test code = 713-8) 0.9 % BASO % (test code = 706-2) 0.3 % GRAN MAT x10^3(ANC) (test code = 8492149953) 11.60 10*3/uL 1.99-6.95 H IMM GRAN x10^3 (test code = 9920272925) 0.08 10*3/uL 0.00-0.06 H LYMPH x10^3 (test code = 731-0) 0.96 10*3/uL 1.09-3.23 L MONO x10^3 (test code = 742-7) 1.25 10*3/uL 0.36-1.02 H EOS x10^3 (test code = 711-2) 0.13 10*3/uL 0.06-0.53 BASO x10^3 (test code = 704-7) 0.04 10*3/uL 0.01-0.09 Lab Interpretation (test code = 97072-3) Abnormal [facility]. METABOLIC PANEL (74028)2022-07-04 18:07:19* Test Item Value Reference Range Interpretation Comme nts NA (test code = 2427558781) 141 mmol/L 135-145 K (test code = 7928724643) 5.1 mmol/L 3.5-5.0 H CL (test code = 8666432674) 111 mmol/L 98-108 H CO2 TOTAL (test code = 8765525545) 21 mmol/L 23-31 L AGAP (test code = 6646459345) 9 2-16 BUN (test code = 1586969201) 61 mg/dL 7-23 H GLUCOSE (test code = 5505867308) 71 mg/dL 70-110 CREATININE (test code = 6150848254) 7.66 mg/dL 0.60-1.25 H TOTAL BILI (test code = 9943551159) 0.5 mg/dL 0.1-1.1 CALCIUM (test code = 2692524604) 8.3 mg/dL 8.6-10.6 L T PROTEIN (test code = 2240383899) 6.3 g/dL 6.3-8.2 ALBUMIN (test code = 9360333905) 3.6 g/dL 3.5-5.0 ALK PHOS (test code = 4968866567) 99 U/L 34-122 ALTv (test code = 1742-6) 14 U/L 5-50 AST(SGOT) (test code = 3865728769) 16 U/L 13-40 eGFR (test code = 1044869265) 7.4 mL/min/1.73m2 CANDY (test code = CANDY) [...] imaging tests). Lab Interpretation (test code = 70385-0) Abnormal [facility]IV[facility] PARTIAL THRMPLAS [id number] 18:05:59* Test Item Value Reference Range Interpretation Comme [facility] APTT Patient (test code = 3173-2) 28 See_Comment [Automated message] The system which generated this result transmitted reference range: 23 - 38 Seconds. The reference range was not used to interpret this result as normal/abnormal. CANDY (test code = CANDY) The [facility] patient population mean normal value for aPTT is 30 seconds. Lab Interpretation (test code = 77729-6) Normal [facility] HospitalPROTHROMBIN TIME / [id number] 18:04:12* Test Item Value Reference Range Interpretation Comme [facility] PROTIME PATIENT (test code = 5964-2) 13.3 See_Comment [Automated Locationarya ge] The system which generated this result transmitted reference range: 12.0 - 14.7 Seconds. The reference range was not used to interpret this result as normal/abnormal. INR (test code = 6301-6) 1.1 Normal INR <1.1; Warfarin Therapeutic range 2.0 to 3.0 or 2.5 to 3.5, depending upon the indications. Lab Interpretation (test code = 20340-5) Normal [facility] WITH [id number] 17:55:19* Test Item Value Reference Range Interpretation [...] g/dL 31.2-35.0 L RDW-SD (test code = 03148-8) 50.4 fL 38.5-51.6 RDW-CV (test code = 788-0) 13.9 % 12.1-15.4 PLT (test code = 777-3) 181 See_Comment [Automated messa ge] The system which generated this result transmitted reference range: 150 - 328 10*3/?L. The reference range was not used to interpret this result as normal/abnormal. MPV (test code = 13629-4) 10.1 fL 9.8-13.0 NRBC/100 WBC (test code = 3530493384) 0.0 See_Comment [Automated [employer] ssage] The system which generated this result transmitted reference range: 0.0 - 10.0 /100 WBCs. The reference range was not used to interpret this result as normal/abnormal. NRBC x10^3 (test code = 1629056861) See_Comment [Automated Locationarya ge] The system which generated this result transmitted reference range: 10*3/?L. The reference range was not used to interpret this result as normal/abnormal. GRAN MAT (NEUT) % (test code = 770-8) 71.6 % IMM GRAN % (test code = 7033266348) 0.60 % LYMPH % (test code = 736-9) 16.2 % MONO % (test code = 5905-5) 7.3 % EOS % (test code = 713-8) 3.8 % BASO % (test code = 706-2) 0.5 % GRAN MAT x10^3(ANC) (test code = 1544350802) 5.69 10*3/uL 1.99-6.95 IMM GRAN x10^3 (test code = 6437769720) 0.05 10*3/uL 0.00-0.06 LYMPH x10^3 (test code = 731-0) 1.29 10*3/uL 1.09-3.23 MONO x10^3 (test code = 742-7) 0.58 10*3/uL 0.36-1.02 EOS x10^3 (test code = 711-2) 0.30 10*3/uL 0.06-0.53 BASO x10^3 (test code = 704-7) 0.04 10*3/uL 0.01-0.09 Lab Interpretation (test code = 58798-9) Abnormal [facility]GLU[facility]ED[facility] [id number] 13:02:00* Test Item Value Reference Range Interpretation Comme nts GLUCOSE BEDSIDE TESTING (negrita t code = GLUBED) 263 MG/DL 60-99 H GLUCOSE BEDSIDE [id number] 07:47:00* Test Item Value Reference Range Interpretation Comme nts GLUCOSE BEDSIDE TESTING (negrita t code = GLUBED) 145 MG/DL 60-99 H COMPREHENSIVE METABOLIC [id number] 07:22:00* Test Item Value Reference Range Interpretation [...] and aplastic anemia) with specific assayson the [employer] 5600 of which Total Protein is one [...] code = ALKP) 100 UNITS/L 38-126 N [id number] 07:22:00* Test Item Value Reference Range Interpretation Comme nts MAGNESIUM (test code = MAG) 1.9 MG/DL 1.6-2.3 N CBC W/AUTO [id number] 06:40:00* Test Item Value Reference Range Interpretation [...] NRBC#) 0.00 K/mm3 0.0-0.1 N GLUCOSE BEDSIDE [id number] 18:59:00* Test Item Value Reference Range Interpretation Comme nts GLUCOSE BEDSIDE TESTING (negrita t code = GLUBED) 232 MG/DL 60-99 H GLUCOSE BEDSIDE [id number] 17:34:00* Test Item Value Reference Range Interpretation Comme nts GLUCOSE BEDSIDE TESTING (negrita t code = GLUBED) 204 MG/DL 60-99 H GLUCOSE BEDSIDE [id number] 11:25:00* Test Item Value Reference Range Interpretation Comme nts GLUCOSE BEDSIDE TESTING (negrita t code = GLUBED) 276 MG/DL 60-99 H COMPREHENSIVE METABOLIC [id number] 07:21:00* Test Item Value Reference Range Interpretation [...] code = ALKP) 102 UNITS/L 38-126 N [id number] 07:21:00* Test Item Value Reference Range Interpretation Comme nts MAGNESIUM (test code = MAG) 2.0 MG/DL 1.6-2.3 N CBC W/AUTO [id number] 06:47:00* Test Item Value Reference Range Interpretation [...] 0.00 K/mm3 0.0-0.1 N - XR CHEST [id number] 06:24:00 [facility] 1965 Sex: M Patient Name: ARNOLD KOENIG Unit No: [id number] EXAMS: CPT CODE: [id number] XR CHEST 1V 70064 EXAM: - XR EDHOM4T Location code:C3 HISTORY: PULM EDEMA COMPARISON: None [...] t.ANGELIAR.CB5 Orig Print D/T: S: 03/30/2022 (626) [facility] NAME: ARNOLD KOENIG [address] [place] PHYS: CHERYL.01 [place] [address] : 1965 AGE: 56 SEX: M LOC: Z.417 A PHONE #: [phone] EXAM DATE: 03/30/2022 STATUS: ADM IN FAX #: [phone] RADIOLOGY NO: PAGE 1 Signed ReportHEPATITIS B SURF AB, [id number] 19:23:00* Test Item Value Reference Range Interpretation [...] infection.~~~~~~~~~~~~~ ~~~~~~~~~~~~~~~~~~~~~~~ ~~~~~~~~~~~~~~~~~~~~~~~ ~ AG HEPATITIS B [id number] 19:23:00* Test Item Value Reference Range Interpretation Comme nts AG HEPATITIS B SURFACE (test code = HBSAG) NEGATIVE NONREACTIVE GLUCOSE BEDSIDE [id number] 19:18:00* Test Item Value Reference Range Interpretation Comme nts GLUCOSE BEDSIDE TESTING (negrita t code = GLUBED) 259 MG/DL 60-99 H COMPREHENSIVE METABOLIC [id number] 18:39:00* Test Item Value Reference Range Interpretation [...] and aplastic anemia) with specific assayson the [employer] 5600 of which Total Protein is one [...] mg/dL VERY HIGH.........>/= 190 mg/dL GLYCOSYLATED HEMOGLOBIN [id number] 18:28:00* Test Item Value Reference Range Interpretation [...] MBG) 174 MG/DL 70-110 H CBC W/AUTO [id number] 18:11:00* Test Item Value Reference Range Interpretation [...] 0.00 K/mm3 0.0-0.1 N INTACT PTH CALCIUM [id number] 15:40:51* Test Item Value Reference Range Interpretation Comme nts PTH-INTACT (test code = 1801249666) 174.9 pg/mL 12.0-88.0 H PTH-CA Interpretation (test code = 4203149254) Further clinical data needed for interpretation. CALCIUM (test code = 6192551313) 9.1 mg/dL 8.6-10.6 Lab Interpretation (test code = 56615-0) Abnormal [facility] CAL[facility] [id number] 15:40:50* Test Item Value Reference Range Interpretation Comme nts PTH-INTACT (test code = 5598063247) 207.3 pg/mL 12.0-88.0 H PTH-CA Interpretation (test code = 4881001231) Further clinical data needed for interpretation. CALCIUM (test code = 4108078159) 9.2 mg/dL 8.6-10.6 Lab Interpretation (test code = 78724-5) Abnormal [facility] Metabolic Panel (NA, K, CL, CO2, GLUCOSE, BUN, CREATININE, CA)2020-10-23 11:42:35* Test Item Value Reference Range Interpretation Comme nts NA (test code = 5897306947) 142 mmol/L 135-145 K (test code = 2059013604) 3.8 mmol/L 3.5-5.0 CL (test code = 4792195957) 106 mmol/L 98-108 CO2 TOTAL (test code = 8883048018) 27 mmol/L 23-31 AGAP (test code = 6740537078) 2-16 BUN (test code = 8822388358) 76 mg/dL 7-23 H GLUCOSE (test code = 8070452542) 193 mg/dL 70-110 H CREATININE (test code = 5491033059) 6.07 mg/dL 0.60-1.25 H CALCIUM (test code = 3658919109) 9.1 mg/dL 8.6-10.6 eGFR (test code = 8384328723) mL/min/1.73m2 CANDY (test code = CANDY) Association [...] imaging tests). Lab Interpretation (test code = 25557-9) Abnormal [facility] HospitalMagnesium [id number] 11:42:35* Test Item Value Reference Range Interpretation Comme nts MAGNESIUM (test code = 1894927309) 2.3 mg/dL 1.7-2.4 Lab Interpretation (test cod e = 58350-4) Normal [facility] with Dhkjafpazpos9985-17-73 11:10:11* Test Item Value Reference Range Interpretation Comme nts WBC (test code = 6690-2) See_Comment [Automated Locationarya [employer]] The system which generated this result transmitted reference range: 4.20 - 10.70 10*3/?L. The reference range was not used to interpret this result as normal/abnormal. RBC (test code = 789-8) See_Comment L [Automated Locationarya [employer]] The system which generated this result transmitted [...] 31.5 g/dL 31.2-35.0 RDW-SD (test code = 28525-9) 45.0 fL 38.5-51.6 RDW-CV (test code = 788-0) 13.4 % 12.1-15.4 PLT (test code = 777-3) See_Comment [Automated Locationarya [employer]] The system which generated this result transmitted reference range: 150 - 328 10*3/?L. The reference range was not used to interpret this result as normal/abnormal. MPV (test code = 44985-8) 10.6 fL 9.8-13.0 NRBC/100 WBC (test code = 7674367565) See_Comment [Automated me ssage] The system which generated this result transmitted reference range: 0.0 - 10.0 /100 WBCs. The reference range was not used to interpret this result as normal/abnormal. NRBC x10^3 (test code = 8700620257) <0.01 See_Comment [Automated messa ge] The system which generated this result transmitted reference range: 10*3/?L. The reference range was not used to interpret this result as normal/abnormal. GRAN MAT (NEUT) % (test code = 770-8) 67.1 % IMM GRAN % (test code = 0879233610) 0.30 % LYMPH % (test code = 736-9) 21.3 % MONO % (test code = 5905-5) 7.6 % EOS % (test code = 713-8) 3.3 % BASO % (test code = 706-2) 0.4 % GRAN MAT x10^3(ANC) (test code = 4145899716) 5.36 10*3/uL 1.99-6.95 IMM GRAN x10^3 (test code = 2257220074) <0.03 0.00-0.06 LYMPH x10^3 (test code = 731-0) 1.70 10*3/uL 1.09-3.23 MONO x10^3 (test code = 742-7) 0.61 10*3/uL 0.36-1.02 EOS x10^3 (test code = 711-2) 0.26 10*3/uL 0.06-0.53 BASO x10^3 (test code = 704-7) 0.03 10*3/uL 0.01-0.09 Lab Interpretation (test code = 41921-4) Abnormal [facility] GLUCOSE (AUTOMATED)2020-10-23 05:54:27* Test Item Value Reference Range Interpretation Comme nts POCT GLU (test code = 9724772318) 218 mg/dL 70-110 H Lab Interpretation (test cod e = 32131-9) Abnormal [facility] D, [id number] 05:11:32* Test Item Value Reference Range Interpretation Comme [facility] VIT D 25OH (test code = 37651-1) 46 ng/mL 25-80 CANDY (test code = CANDY) Deficiency: <20 ng/mLInsufficiency : 20-24 ng/mLOptimal: 25-80 ng/mL Lab Interpretation (test code = 64967-5) [facility] B Core Antibody, [id number] 05:11:12* Test Item Value Reference Range Interpretation Comme [facility] HBC (test code = 5180167100) Negative HBC Semi-Quantitative (test code = 4520497713) [facility] B SURFACE [id number] 05:11:12* Test Item Value Reference Range Interpretation Comme [facility] HBsAB (test code = 7465726978) Negative HBsAb Semi-Quantitative (test code = 5693660728) mIU/mL CANDY (test code = CANDY) Interpretation: ?Hepatitis B Surface Antibody ? Negative - Patient is considered to be not immune to infection with HBV. ? ? Positive - Anti-HBs detected at greater than or equal to 12 mIU/mL. ?Patient is considered to be immune to infection with HBV. ? [facility] B SURFACE [id number] 04:53:21 * Test Item Value Reference Range Interpretation Comme [facility] HBsAg Semi-Quantitative (negrita t code = 5195-3) Negative Negative [facility] UR[facility] [id number] 03:14:16 * Test Item Value Reference Range Interpretation Comme nts T. PROT U (test code = 2888-6) 743 mg/dL [facility] 2 [id number] 02:58:28Impression: Nodular opacity overlying the left upper [...] unremarkablefor age, projection, and degree of inspiration. [facility], Radiant Results Inft User - 10/22/2020 10:17 [...] 460End of Report [facility]PO[facility]UCOSE (AUTOMATED)2020-10-23 01:11:29* Test Item Value Reference Range Interpretation Comme nts POCT GLU (test code = 9277306792) 143 mg/dL 70-110 H Lab Interpretation (test cod e = 26492-2) Abnormal [facility] HospitalOSMOLAL[facility] [id number] 00:56:19* Test Item Value Reference Range Interpretation Comme nts OSMO U (test code = 3638118056) See_Comment [Automated Infogram] The system which generated this result transmitted reference range: 50-1,100 mOsm/kg. The reference range was not used to interpret this result as normal/abnormal. Lab Interpretation (test code = 69511-6) Normal [facility] D, [id number] 00:10:49* Test Item Value Reference Range Interpretation Comme nts VIT D 25OH (test code = 30977-8) 39 ng/mL 25-80 CANDY (test code = CANDY) Deficiency: <20 ng/mLInsufficiency : 20-24 ng/mLOptimal: 25-80 ng/mL Lab Interpretation (test code = 92235-3) Normal [facility] HospitalFERRITIN [id number] 23:38:41* Test Item Value Reference Range Interpretation Comme nts FERRITIN (test code = 9317355610) 51.5 ng/mL 18.0-464.0 CANDY (test code = CANDY) Biotin has been reported to cause a negative bias, interpret results relative to patient's use of biotin. Lab Interpretation (test code = 88228-2) Normal [facility] HospitalTHYROID STIMULATING [id number] 23:34:40 * Test Item Value Reference Range Interpretation Comme nts TSH (test code = 1948327489) See_Comment [Automated Infogram] The system which generated this result transmitted reference range: 0.45 - 4.70 mIU/L. The reference range was not used to interpret this result as normal/abnormal. Lab Interpretation (test code = 66188-1) Normal [facility] HospitalN-TERMINAL [id number] 23:12:53* Test Item Value Reference Range Interpretation Comme nts NT-proBNP (test code = 2623964764) 592 pg/mL See_Comment H [Automated message] The system which generated this result transmitted reference range: <=125. The reference range was not used to interpret this result as normal/abnormal. CANDY (test code = CANDY) Biotin has been reported to cause a negative bias, interpret results relative to patient's use of biotin. Lab Interpretation (test code = 75913-8) Abnormal [facility] HospitalTOTAL IRON BINDING [id number] 23:12:53 * Test Item Value Reference Range Interpretation Comme nts TIBC (test code = 6104154919) 326 ug/dL 250-410 Lab Interpretation (test cod e = 06979-1) Normal [facility] HospitalGLYCOSYLATED HEMOGLOBIN (A1C)2020-10-22 22:38:18* Test Item Value Reference Range Interpretation Comme nts HGB A1C (test code = 4548-4) 7.0 % 4.0-5.7 H CANDY (test code = CANDY) Reference RangesNormal: <5.7%Prediabetes: 5.7 - 6.4%Diabetes: > 6.5% Lab Interpretation (test code = 81922-6) Abnormal [facility] HospitalCREATINE [id number] 21:46:35* Test Item Value Reference Range Interpretation Comme nts CK (test code = 2671943649) 122 U/L 33-194 Lab Interpretation (test cod e = 02853-3) Normal [facility] HospitalFERRITIN [id number] 21:38:35* Test Item Value Reference Range Interpretation Comme nts FERRITIN (test code = 7639624157) 51.8 ng/mL 18.0-464.0 CANDY (test code = CANDY) Biotin has been reported to cause a negative bias, interpret results relative to patient's use of biotin. Lab Interpretation (test code = 25864-9) Normal [facility] HospitalDRUG PANEL 2 [id number] 21:37:33* Test Item Value Reference Range Interpretation Comme nts AMPHET (test code = 3928788670) Negative Negative VIDAL U (test code = 8968843234) Negative Negative BENZO U (test code = 8065243080) Negative Negative Cocaine Metabolite (test code = 9559418789) Presumptive Positive Negative A METHADONE (test code = 8436583110) Negative Negative OPIATES (test code = 2321405562) Negative Negative PCP (test code = 7690449367) Negative Negative THC (test code = 7575152725) Negative Negative CANDY (test code = CANDY) [...] legal testing). Lab Interpretation (test code = 19605-9) Abnormal [facility] HospitalPHOSPHORUS2021-07-21 21:17:04* Test Item Value Reference Range Interpretation Comme nts PHOSPHORUS (test code = 8316899985) 5.3 mg/dL 2.5-5.0 H Lab Interpretation (test cod e = 16386-4) Abnormal [facility] HospitalTOTAL IRON BINDING [id number] 21:11:47 * Test Item Value Reference Range Interpretation Comme nts TIBC (test code = 3586691061) 329 ug/dL 250-410 % FE SAT (test code = 8000758299) 18 % 20-50 L Lab Interpretation (test cod e = 41323-2) Abnormal [facility] HospitalPhosphorus [id number] 20:56:00* Test Item Value Reference Range Interpretation Comme nts PHOSPHORUS (test code = 7214545552) 5.3 mg/dL 2.5-5.0 H Lab Interpretation (test cod e = 64090-5) Abnormal [facility] HospitalURIC [id number] 20:55:40* Test Item Value Reference Range Interpretation Comme nts URIC ACID (test code = 0801762039) 11.0 mg/dL 3.6-8.0 H Lab Interpretation (test cod e = 35973-3) Abnormal [facility] HospitalIRON2021-07-21 20:55:24* Test Item Value Reference Range Interpretation Comme nts IRON (test code = 6265791041) 58 ug/dL 50-160 Lab Interpretation (test cod e = 87428-2) Normal [facility] HospitalCREATININE, URINE [id number] 20:52:05* Test Item Value Reference Range Interpretation Comme nts CREAT U (test code = 7875329196) 131.8 mg/dL [facility] HospitalSODIUM, URINE [id number] 20:36:37* Test Item Value Reference Range Interpretation Comme nts NA URINE (test code = 1402769488) 31 mmol/L [facility] HospitalPOTASSIUM, URINE [id number] 20:36:37* Test Item Value Reference Range Interpretation Comme nts K URINE (test code = 9262073951) 24.0 mmol/L [facility] HospitalURINALYSIS2021-07-21 20:22:33* Test Item Value Reference Range Interpretation Comme nts APPEARANCE (test code = 1035372752) Hazy Clear A COLOR (test code = 7248297316) Yellow Yellow PH (test code = 0838221567) 4.8-8.0 SP GRAVITY (test code = 4363929439) 1.003-1.030 GLU U QUAL (test code = 3739805512) 150 mg/dL Normal A BLOOD (test code = 6080033540) 1+ Negative A KETONES (test code = 2490883618) Negative Negative PROTEIN (test code = 2887-8) 500 mg/dL Negative A UROBILIN (test code = 4263585010) Normal Normal BILIRUBIN (test code = 4605647855) Negative Negative NITRITE (test code = 1548032322) Negative Negative LEUK MING (test code = 3078188903) Negative Negative RBC/HPF (test code = 9703853350) See_Comment [Automated Locationarya ge] The system which generated this result transmitted reference range: 0 - 3 HPF. The reference range was not used to interpret this result as normal/abnormal. WBC/HPF (test code = 6586984336) See_Comment [Automated Locationarya ge] The system which generated this result transmitted reference range: 0 - 5 HPF. The reference range was not used to interpret this result as normal/abnormal. BACTERIA (test code = 4581259433) Few Negative A MUCOUS (test code = 9606872839) Slight Negative LPF A AMORPHOUS (test code = 3238925384) Few Rare HPF A SQ EPITH (test code = 4461301277) HPF YEAST BUD (test code = 7749366178) See_Comment H [Automated messa ge] The system which generated this result transmitted reference range: <=1 HPF. The reference range was not used to interpret this result as normal/abnormal. SPERM (test code = 7125287671) See_Comment [Automated Locationarya ge] The system which generated this result transmitted reference range: <=1 HPF. The reference range was not used to interpret this result as normal/abnormal. HYAL CAST (test code = 5426657874) See_Comment [Automated messa ge] The system which generated this result transmitted reference range: <=2 LPF. The reference range was not used to interpret this result as normal/abnormal. Lab Interpretation (test code = 98881-1) Abnormal [facility] HospitalCOVID-19 (ID NOW RAPID TESTING)2020-10-22 16:44:47* Test Item Value Reference Range Interpretation Comme nts SARS-CoV-2 Rapid ID NOW (test code = 81501-5) Not Detected Not Detected CANDY (test code = CANDY) ID NOW COVID-19 As say is an isothermal nucleic acid amplification test intended for the qualitative detection of nucleic acid from SARS-CoV-2 viral RNA in nasopharyngeal (SCRAPER OPERATOR) specimens. It is used under Emergency Use [...] clinically indicated. Lab Interpretation (test code = 19304-7) Normal [facility] HospitalTROPONIN [id number] 16:31:45* Test Item Value Reference Range Interpretation Comments TROPONIN I (test code = 9907526622) 0.014 ng/mL See_Comment [Automated message] The system which generated this result transmitted reference range: <=0.034. The reference range was not used to interpret this result as normal/abnormal. ACNDY (test code = CANDY) Reference (Normal) Range [...] of biotin. Lab Interpretation (test code = 66904-5) Normal [facility] HospitalMAGNESIUM2021-07-21 16:20:42* Test Item Value Reference Range Interpretation Comme nts MAGNESIUM (test code = 2460254716) 2.2 mg/dL 1.7-2.4 Lab Interpretation (test cod e = 30137-1) Normal [facility] HospitalCOMP. METABOLIC PANEL (86876)2020-10-22 15:35:30* Test Item Value Reference Range Interpretation Comme nts NA (test code = 1214620653) 141 mmol/L 135-145 K (test code = 3265949400) 4.0 mmol/L 3.5-5.0 CL (test code = 9973768910) 104 mmol/L 98-108 CO2 TOTAL (test code = 7336391484) 27 mmol/L 23-31 AGAP (test code = 5910769296) 2-16 BUN (test code = 6922883055) 80 mg/dL 7-23 H GLUCOSE (test code = 1695744358) 143 mg/dL 70-110 H CREATININE (test code = 8952632998) 6.40 mg/dL 0.60-1.25 H TOTAL BILI (test code = 9687781381) 0.4 mg/dL 0.1-1.1 CALCIUM (test code = 9009237291) 9.4 mg/dL 8.6-10.6 T PROTEIN (test code = 5537692258) 7.8 g/dL 6.3-8.2 ALBUMIN (test code = 6041136014) 4.1 g/dL 3.5-5.0 ALK PHOS (test code = 1293636039) 115 U/L 34-122 ALTv (test code = 1742-6) 13 U/L 5-50 AST(SGOT) (test code = 8458539767) 16 U/L 13-40 eGFR (test code = 5570938158) mL/min/1.73m2 CANDY (test code = CANDY) Association [...] imaging tests). Lab Interpretation (test code = 49100-1) Abnormal [facility] WITH [id number] 15:26:32* Test Item Value Reference Range Interpretation Comme nts WBC (test code = 6690-2) See_Comment [Automated Infogram] The system which generated this result transmitted reference range: 4.20 - 10.70 10*3/?L. The reference range was not used to interpret this result as normal/abnormal. RBC (test code = 789-8) See_Comment L [Automated Infogram] The system which generated this result transmitted [...] 33.0 g/dL 31.2-35.0 RDW-SD (test code = 13972-2) 43.7 fL 38.5-51.6 RDW-CV (test code = 788-0) 13.2 % 12.1-15.4 PLT (test code = 777-3) See_Comment [Automated messa ge] The system which generated this result transmitted reference range: 150 - 328 10*3/?L. The reference range was not used to interpret this result as normal/abnormal. MPV (test code = 76745-1) 10.2 fL 9.8-13.0 NRBC/100 WBC (test code = 0306450227) See_Comment [Automated Navidog ssage] The system which generated this result transmitted reference range: 0.0 - 10.0 /100 WBCs. The reference range was not used to interpret this result as normal/abnormal. NRBC x10^3 (test code = 0083789317) <0.01 See_Comment [Automated messa ge] The system which generated this result transmitted reference range: 10*3/?L. The reference range was not used to interpret this result as normal/abnormal. GRAN MAT (NEUT) % (test code = 770-8) 71.3 % IMM GRAN % (test code = 5557715943) 0.40 % LYMPH % (test code = 736-9) 15.5 % MONO % (test code = 5905-5) 9.0 % EOS % (test code = 713-8) 3.3 % BASO % (test code = 706-2) 0.5 % GRAN MAT x10^3(ANC) (test code = 1791919916) 5.77 10*3/uL 1.99-6.95 IMM GRAN x10^3 (test code = 8263977954) 0.03 10*3/uL 0.00-0.06 LYMPH x10^3 (test code = 731-0) 1.25 10*3/uL 1.09-3.23 MONO x10^3 (test code = 742-7) 0.73 10*3/uL 0.36-1.02 EOS x10^3 (test code = 711-2) 0.27 10*3/uL 0.06-0.53 BASO x10^3 (test code = 704-7) 0.04 10*3/uL 0.01-0.09 Lab Interpretation (test code = 31421-1) Abnormal [facility] Notes Date/Time Note Provider Source 2023-11-17 21:33:00 7978-1021 [facility] [id number] [place] [address] PATIENT NAME: ARNOLD KOENIG ADMIT DATE: 11/13/23 ACCOUNT NO: [id number] ROOM NO: LBarbaraPO5 AGE: 58 REPORT TYPE: 360 - QUERY RESPONSE DOCUMENT SEX: M ADMITTING PHYSICIAN: Koby Low MD ATTENDING PHYSICIAN: Koby Low MD Provider Query QUERY TEXT: Condition General 360MD Query related questions should be directed to: JANKI Valle RN CDI [email or web address] Based on your clinical judgment, can [...] PM at 2133 PATIENT NAME: ARNOLD KOENIG [facility] 2023-11-14 21:52:00 [facility] ([facility] Hospitalist Discharge Summary REPORT#:[id number] REPORT STATUS: Signed REPORT INITIALIZATION DATE:11/14/23 TIME:2151 PATIENT: ARNOLD KOENIG UNIT #: [id number] ROOM/BED: [address] : [birth year] AGE: 58 SEX: M [...] Musculoskeletal: normal inspection, painless range of motion Neuro/AMMONIUM SULFATE OPERATOR: alert Skin: abnormal color, abnormal temperature, intact Psychiatry: normal affect, normal judgment/insight, normal mood, not homicidal, not suicidal Discharge Instructions PCP PCP follow-up: PCP: Zeke Russo DO Additional Discharge Routines: None at 1941 RPT #: [id number] END OF REPORT [facility] 2023-11-14 19:02:00 [facility] Hospitalist Progress Note REPORT#:[id number] REPORT STATUS: Signed REPORT INITIALIZATION DATE:11/14/23 TIME:1901 PATIENT: ARNOLD KOENIG UNIT #: [id number] ROOM/BED: [address] : [birth year] AGE: 58 SEX: M [...] Musculoskeletal: normal inspection, painless range of motion Neuro/AMMONIUM SULFATE OPERATOR: alert Skin: abnormal color, abnormal temperature, intact [...] (Auto) (20.5 - 51.1 %) 5.6 L [place] % (Auto) (1.7 - 9.3 %) 7.5 Eos % (Auto) (0.0 - 6.0 %) 0.3 Baso % (Auto) (0.0 - 2.0 %) 0.2 Neut # (Auto) (1.8 - 7.6 K/mm3) 16.8 H Lymph # (Auto) (0.6 - 3.0 K/mm3) 1.1 [place] # (Auto) (0.2 - 1.5 K/mm3) 1.5 [...] is full code. at 1904 RPT #: [id number] END OF REPORT [facility] 2023-11-14 10:42:00 [facility] Nephrology Progress Note REPORT#:[id number] REPORT STATUS: Signed REPORT INITIALIZATION DATE:11/14/23 TIME:104 PATIENT: ARNOLD KOENIG UNIT #: [id number] ROOM/BED: [address] : [birth year] AGE: 58 SEX: M ATTEND: Koby Low MD ADM AUTHOR: Milton Reyna MD REPT SERVICE DT/TIME: 11/14/23 1042 * ALL edits or amendments must be made on the electronic/computer document * Subjective Chief complaint: Seen in dialysis, tolerating 3.5 L UF well Still complaining of left leg pain HPI: 58-year-old with HTN/DM/ESRD on HD at [place] with Dr. Nguyen Presenting with left leg [...] , more over garcia , non RLE Neuro/AMMONIUM SULFATE OPERATOR: alert, oriented X 3, CN II-XII intact [...] - 1.2 INR Unit) 1.21 H PTT ([place]) (26 - 35 SECONDS) 30.6 PT Patient/Control [...] - 51.1 %) 5.6 L 6.6 L [place] % (Auto) (1.7 - 9.3 %) 7.5 8.4 Eos % (Auto) (0.0 - 6.0 %) 0.3 0.9 Baso % (Auto) (0.0 - 2.0 %) 0.2 0.2 Neut # (Auto) (1.8 - 7.6 K/mm3) 16.8 H 13.7 H Lymph # (Auto) (0.6 - 3.0 K/mm3) 1.1 1.1 [place] # (Auto) (0.2 - 1.5 K/mm3) 1.5 [...] Continue antibiotics regimen at 1044 RPT #: [id number] END OF REPORT [facility] 2023-11-13 21:04:00 [facility] ([facility]) Hospitalist History Physical REPORT#:[id number] REPORT STATUS: Signed REPORT INITIALIZATION DATE:11/13/23 TIME:2103 PATIENT: ARNOLD KOENIG UNIT #: [id number] ROOM/BED: [address] : [birth year] AGE: 58 SEX: M [...] initiated on vancomycin and Ancef from the [facility]. He reported subjective fever and chills [...] Musculoskeletal: normal inspection, painless range of motion Neuro/AMMONIUM SULFATE OPERATOR: alert Skin: abnormal color, abnormal temperature, intact [...] (Auto) (20.5 - 51.1 %) 6.6 L [place] % (Auto) (1.7 - 9.3 %) 8.4 Eos % (Auto) (0.0 - 6.0 %) 0.9 Baso % (Auto) (0.0 - 2.0 %) 0.2 Neut # (Auto) (1.8 - 7.6 K/mm3) 13.7 H Lymph # (Auto) (0.6 - 3.0 K/mm3) 1.1 [place] # (Auto) (0.2 - 1.5 K/mm3) 1.4 [...] status: full code at 1902 RPT #: [id number] END OF REPORT [facility] 2023-11-13 16:27:00 [facility]) Nephrology Consultation Note REPORT#:[id number] REPORT STATUS: Signed REPORT INITIALIZATION DATE:11/13/23 TIME:1626 PATIENT: ARNOLD KOENIG UNIT #: [id number] ROOM/BED: [address] : [birth year] AGE: 58 SEX: M ATTEND: Koby Low MD ADM AUTHOR: Milton Reyna MD REPT SERVICE DT/TIME: 11/13/231626 * ALL edits or amendments must be made on the electronic/computer document * History of Present Illness Requesting clinician: ER Reason for consult: Left leg cellulitis HPI: 58-year-old with HTN/DM/ESRD on HD at [place] with Dr. Nguyen Presenting with left leg [...] , more over garcia , non RLE Neuro/AMMONIUM SULFATE OPERATOR: alert, oriented X 3, CN II-XII intact [...] will follow along at 1042 RPT #: [id number] END OF REPORT [facility] 2023-11-13 15:31:00 [facility] ([facility]) EMERGENCY PROVIDER REPORT REPORT#:[id number] REPORT STATUS: Signed DATE:11/13/23 TIME:1531 PATIENT: ANROLD KOENIG UNIT #: [id number] ROOM/BED: [address] : [birth year] AGE: 58 SEX: M [...] to the ED as a transfer from [facility] for leg cellulitis and end-stage renal [...] already intiated ) at 1130 RPT #: [id number] END OF REPORT [facility] 2023-11-11 13:26:24 Pt given printed and [...] in no apparent distress Juju Arias RN [facility] 2023-11-11 09:57:00 Patient states: "I didn't do anything to my left leg but it hurts from the knee down since Tuesday. I'm a dialysis patient and supposed to have my session today but I didn't go yet because I cannot take the pain anymore." Charlotte Rider RN [facility] 2023-11-10 12:00:00 ASSESSMENT SUMMARY ARNOLD KOENIG is [...] verbalized understanding to all. Members Preferred Language Marshallese Patient Currently Located in their home state of [place], YES DIAGNOSIS NGZHBVRK40.2 - Dependence on renal zwqgepbhA28.9 - Heart failure, lzsavkzovvsC71.2 - Hypertensive heart and chronic kidney disease with heart failure and with stage 5 chronic kidney disease, or end stage renal nakocnnV22.9 - Bipolar disorder, npjznkwnzahP16.69 - Type 2 diabetes mellitus with other specified gaigrhrpwcjwR35.22 - Type 2 diabetes mellitus with diabetic chronic kidney rgaohyaU71.319 - Type 2 diabetes mellitus with unspecified diabetic retinopathy without macular kzrcbV25.6 - End stage renal syzcykwX75.01 - Morbid (severe) obesity due to excess iuwuohnmD31.41 - Body mass index [BMI] 40.0-44.9, gdsqeE55.3592 - Type 2 diabetes mellitus with proliferative diabetic retinopathy without macular edema, left eyeE26.1 - Secondary wllfkcvgtcpztvkhjdY98.81 - Secondary hyperparathyroidism of renal hnsrgcI05.4 - intermediate designer (current) use of uoijgfgH08.81 - Unsteadiness on feetE78.5 - Hyperlipidemia, uuakvopahywK78.00 - Insomnia, unspecified D2Me INTAKE CHECKLIST (completed [...] - Follow up with cardiologyDISCUSSED: Discuss taking early interventionist weights and calling their doctors if weight [...] nephrologyACTION: Confirm that the patient has a picture frame maker Dx: Z99.2 - Dependence on renal dialysis [...] up with PCP, endocrinology Dx: Z79.4 - intermediate designer (current) use of insulin Notes for Z79.4: - residential use of insulin - Type II DM [...] with PCP, endocrinologyACTION: Confirm follow up with plastic eye technician to prevent vision loss Dx: E11. - [...] the video platform used during the visit: [employer] Video Room Please record the total amount [...] Kierra Boswell -- [facility] 2022-05-06 13:09:00 [id number] [place] [address] PATIENT NAME: ARNOLD KOENIG ADMIT DATE: 03/30/22 ACCOUNT NO: [id number] [facility] 57 REPORT TYPE: DISCHARGE SUMMARY REPORT [...] Date Transcribed: 05/06/2022 22:23:41 /MARCIA Receipt ID: [id number] Authenticated by Tommy Sosa MD On 05/10/2022 12:31:28 PM at 1231 PATIENT NAME: ARNOLD KOENIG [facility] 2022-03-31 17:04:00 [facility] Nephrology Progress Note REPORT#:[id number] REPORT STATUS: Signed DATE:03/31/22 TIME: 1704 PATIENT: ARNOLD KOENIG UNIT #: [id number] ROOM/BED: [address] : [birth year] AGE: 56 SEX: M ATTEND: Tommy Sosa MD ADM AUTHOR: Jesús Francisco MD * ALL edits or amendments must be made on the electronic/computer document * Subjective HPI: The patient is a 56-year-old male with a past medical history of insulin dependent diabetes mellitus,ESRD MWF who was transferred from [facility] for hypoglycemia and passing out [...] rhythm Respiratory: aerating well, clear to auscultation Neuro/AMMONIUM SULFATE OPERATOR: alert, oriented X 3 Psychiatry: normal mood, [...] % (Auto) (14 - 44 %) 20.0 [place] % (Auto) (4 - 13 %) 8.1 Eos % (Auto) (0 - 6 %) 4.7 Baso % (Auto) (0 - 2 %) 0.3 Neut # (Auto) (2.0 - 7.6 K/mm3) 5.20 Lymph # (Auto) (1.0 - 3.8 K/mm3) 1.56 [place] # (Auto) (0.1 - 0.8 K/mm3) 0.63 [...] meds on return home at 1911 RPT #:[id number] [facility] 2022-03-30 09:08:00 [facility] ([facility] Nephrology Progress Note REPORT#:[id number] REPORT STATUS: Signed DATE:03/30/22 TIME: 907 PATIENT: ARNOLD KOENIG UNIT #: [id number] ROOM/BED: [address]: [birth year] AGE: 56 SEX: M ATTEND: Tommy Sosa MD ADM AUTHOR: Jesús Francisco MD * ALL edits or amendments must be made on the electronic/computer document * Subjective HPI: The patient is a 56-year-old male with a past medical history of insulin dependent diabetes mellitus,ESRD MWF who was transferred from [facility] for hypoglycemia and passing out [...] rhythm Respiratory: aerating well, clear to auscultation Neuro/AMMONIUM SULFATE OPERATOR: alert, oriented X 3 Psychiatry: normal mood, [...] (14 - 44 %) 19.7 9.2 L [place] % (Auto) (4 - 13 %) 7.3 5.0 Eos % (Auto) (0 - 6 %) 3.1 0.5 Baso % (Auto) (0 - 2 %) 0.2 0.2 Neut # (Auto) (2.0 - 7.6 K/mm3) 5.82 8.64 H Lymph # (Auto) (1.0 - 3.8 K/mm3) 1.65 0.94 L [place] # (Auto) (0.1 - 0.8 K/mm3) 0.61 [...] meds on return home at 0913 RPT #:[id number] END OF REPORT [facility] 2022-03-29 20:33:00 [facility] ([facility]) DT PROGRESS NOTE REPORT#:[id number] REPORT STATUS: Signed DATE:03/29/22 TIME: 2032 PATIENT: ARNOLD KOENIG UNIT #: [id number] ROOM/BED: [address] : 69 AGE: 56 SEX: M ATTEND: Tommy Sosa MD ADM AUTHOR: Tommy Sosa MD * ALL edits or amendments must be made on the electronic/computer document * Progress Note Progress Note H P DICTATED [id number] TOMMY SOSA MD at 2033 RPT #:[id number] [facility] 2022-03-29 20:33:00 [id number] [place] [id number] PATIENT NAME: ARNOLD KOENIG ADMIT DATE: 03/30/22 ACCOUNT NO: [id number] ROOM NO: [facility] AGE: 57 REPORT TYPE: HISTORY AND PHYSICAL SEX: M ADMITTING PHYSICIAN:Tommy Sosa MD ATTENDING PHYSICIAN:Tommy Sosa MD ADMISSION DATE: 03/29/2022 17:05:00 CHIEF COMPLAINT: 1. Missed hemodialysis. 2. Hypoglycemia. HISTORY OF PRESENT ILLNESS: This is a 56-year-old male who was transferred from [facility] secondary to hypoglycemic episode and passing out. The patient states that he missed his dialysis last Tuesday and since then has been feeling sick and vomiting. The patient took his diabetes medicines, i.e., insulin, but was not able to eat due to the vomiting episode and was noted to be hypoglycemic. He was seen at the [place] [facility] and was transferred for hemodialysis [...] the treatment plan as outlined by the picture frame maker. Otherwise, if his labs appear stable and he has been cleared by nephrology, I will most likely discharge him home tomorrow morning. Total time spent in this admission is in excess of 70 minutes. Dictated By: Tommy Sosa MD Date Dictated: 03/29/2022 20:33:36 Date Transcribed: 03/29/2022 20:59:50 /[email or web address] Receipt ID: [id number] Authenticated by Tommy Sosa MD On 04/07/2022 11:00:24 AM at 1100 PATIENT NAME: ARNOLD KOENIG [facility] 2022-03-29 18:37:00 [facility] Nephrology Consultation Note REPORT#:[id number] REPORT STATUS: Signed DATE:03/29/22 TIME: 1837 PATIENT: ARNOLD KOENIG UNIT #: [id number] ROOM/BED: [address] : [address] AGE: 56 SEX: M [...] diabetes mellitus,ESRD MWF who was transferred from [facility] for hypoglycemia and passing out [...] rhythm Respiratory: aerating well, clear to auscultation Neuro/AMMONIUM SULFATE OPERATOR: alert, oriented X 3 Psychiatry: normal mood, [...] (Auto) (14 - 44 %) 9.2 L [place] % (Auto) (4 - 13 %) 5.0 Eos % (Auto) (0 - 6 %) 0.5 Baso % (Auto) (0 - 2 %) 0.2 Neut # (Auto) (2.0 - 7.6 K/mm3) 8.64 H Lymph # (Auto) (1.0 - 3.8 K/mm3) 0.94 L [place] # (Auto) (0.1 - 0.8 K/mm3) 0.51 [...] on iv hydralazine prn at 2119 RPT #:[id number] [facility] 2022-03-29 17:16:00 [facility] ([facility]) EMERGENCY PROVIDER REPORT REPORT#:[id number] REPORT STATUS: Signed DATE:03/29/22 TIME: 171 PATIENT: ARNOLD KOENIG UNIT #: [id number] ROOM/BED: [address] AGE: 56 SEX: M PCP PHYS: Undefined Provider SERVICE AUTHOR: Shawn Camacho DO LOCATION: [facility] * ALL edits or amendments must be made on the electronic/computer document * HPI-General Illness Free Text HPI Notes Free Text HPI Notes Patient is a 56-year-old male with a past medical history of diabetes, end-stage renal disease receiving hemodialysis Tuesday presenting with complaints of altered mental status hypoglycemia and having missed dialysis. Of note, patient presents as a transfer from [facility]. Patient was noted to have low blood sugar measuring in the low 50s and had acutely lost consciousness. The patient was taken to [facility] ER where he had been given oral [...] 98 On: Room air Interpretation Interpreted by pr, Pulse oximetry normal Time 1708 Re-Evaluation MDM [...] Call Information will see patient at [address] [facility] #:[id number] END OF REPORT HCAWU
--- NOTE | 2024-03-05 09:22 | RAD REPORT ---
EXAMINATION: CT HEAD WITHOUT CONTRAST CT CERVICAL SPINE WITHOUT CONTRAST CLINICAL INDICATION: Head and neck injury status post fall. Head and neck pain TECHNIQUE: Axial CT images from the skull base to the vertex without intravenous contrast. Axial CT i mages through the cervical spine were obtained without intravenous contrast. Sagittal and coronal reformatted images were created from the data set. Coronal and sagittal reformatted images were creat ed from the data set. One or more of the following dose reduction techniques were used: Automated exposure control, adjustment of the mA and/or kV according to patient size, and/or iterative reconstr uction. Unless otherwise specified, incidental findings do not require dedicated imaging follow-up. [id number]. Comparison: Head CT 2019 FINDINGS: An intracranial bleed is not seen. Ventricles are normal in caliber. No significant hypodensity within the brain No extra-axial fluid collection. The left globe is deformed with increased density.. Increased density right globe probably blood. No fluid within the sinuses/mastoids No fracture or dislocation is seen involving the cervical spine. IMPRESSION: No acute intracranial abnormality noted A cervical fracture is not seen. If the patient continues to have symptoms to suggest acute PROP SETTER/spinal pathology then MRI would be rec ommended
--- NOTE | 2024-03-05 09:31 | RAD REPORT ---
Exam:Knee Right 3 View HISTORY: Right knee pain FINDINGS: No fracture or dislocation seen If the patient continues to have symptoms to suggest an occult fracture, ligamentous or meniscal inju ry then MRI would be recommended
--- NOTE | 2024-03-05 09:33 | RAD REPORT ---
Exam:Knee Left 3 View HISTORY: Left knee pain FINDINGS: No fracture or dislocation seen If the patient continues to have symptoms to suggest an occult fracture, ligamentous or meniscal inju ry then MRI would be recommended
[2024-03-05 09:53] LABS: Absolute Eosinophils 0.3 K/uL (0-0.5); Absolute Lymphocytes (CBC) 0.7 K/uL (0.7-4.9); Absolute Monocytes 0.7 K/uL (0.1-1.3); Absolute Neutrophil 8.8 K/uL (1.8-8.0); Basophils % 0.4 % (0-1.3); Eosinophils % 2.7 % (0-4.4); Hematocrit 34.1 % (39.6-49.0); Hemoglobin 10.9 g/dL (13.6-17.9); Lymphocytes % 6.6 % (15.3-44.8); MCH 31.3 pg (27.0-35.0); Monocytes % 6.6 % (3.3-12.3); Neutrophils % 83.7 % (41.7-73.7); Platelets 193 thou/uL (152-406); RBC Red Blood Cell Count 3.48 M/uL (4.33-5.43)
[2024-03-05 10:13] LABS: Anion Gap 15.2 mEq/L (5.0-15.0)
[2024-03-05 10:16] LABS: Potassium 6.2 mEq/L (3.5-5.1)
--- NOTE | 2024-03-05 11:30 | EDPHYS ---
Physician Documentation [facility] Name: Wild Koenig Age: 58 yrs Sex: Male : 1965 Arrival Date: 03/05/2024 Time: 08:49 Bed 3 Private MD: ED Physician Pradeep Nguyen HPI: 03/05 08:53 This 58 yrs old Male presents to ER via Unassigned with complaints of sb4 headache, weakness, knee pain. 08:54 Patient with history of ESRD on HD Tuesday presents to the ED via EMS sb4 with complaints of headache, generalized weakness, and bilateral knee pain. States that he sustained a mechanical fall 3 days ago in which he hit his head and hurt his bilateral knees. He denies any loss of consciousness or blood thinner use. Has some bruising on his left forehead. States that he has not had dialysis in 6 days because he took the days off because of the holiday and transportation reasons. He denies any chest pain or shortness of breath. He was nauseated in route and was given Zofran. Historical: - Allergies: 09:06 No Known Allergies; hb - PMHx: 09:06 Anxiety; chronic back pain; Congestive heart failure; Depression; Diabetes - IDDM; hb Dialysis (right upper arm fis); Hypertension; - PSHx: 09:06 right upper arm fistula; hb - Immunization history:: Adult Immunizations up to date. - Infectious Disease History:: Denies. - Social history:: Smoking status: . ROS: 08:54 Constitutional: Negative for fever, chills, and weight loss, sb4 08:54 MS/extremity: Positive for injury or acute deformity, pain, of the right knee and left knee, 08:54 Neuro: Positive for headache, 08:54 All other systems are negative, Exam: 08:54 Cardiovascular: Regular rate and rhythm with a normal S1 and S2. Respiratory: No sb4 increased work of breathing, no retractions or nasal flaring. Abdomen/GI: Soft, non-tender, no distension. Neuro: Awake and alert, GCS 15, oriented to person, place, time, and situation. Motor strength 5/5 in all extremities. Sensory grossly intact. 08:54 Constitutional: The patient appears in no acute distress, alert, awake, obese, 08:54 Head/face: Noted is ecchymosis, that is mild, of the left side of forehead, 08:54 Skin: injury, bruising bilateral knees, skin tear right skin, Vital Signs: 09:47 BP 181 / 88; Pulse 73; Resp 15; Pulse Ox 92% ; bp 12:08 BP 178 / 70; Pulse 74; Resp 20; Pulse Ox 96% ; bp [place] Coma Score: 11:27 Eye Response: spontaneous(4). Motor Response: obeys commands(6). Verbal Response: sb4 oriented(5). Total: 15. MDM: 08:52 Medical Screening Exam initiated sb4 11:27 Data reviewed: vital signs, nurses notes, EMS record, lab test result(s), EKG, sb4 radiologic studies, and as a result, I will discharge patient. Consideration of Admission/Observation Escalation of care including admission/observation considered. Counseling: I had a detailed discussion with the patient and/or guardian regarding the historical points, exam findings, and any diagnostic results supporting the discharge/admit diagnosis, the presence of at least one elevated blood pressure reading (>120/80) during this emergency department visit, lab results, radiology results, the need for outpatient follow up, dialysis. 11:55 ED course: Potassium is elevated at 6.2, there are no EKG changes at this time. Patient sb4 denies any chest pain or shortness of breath. His dialysis time was scheduled for 9 AM. I contacted his dialysis center personally and they got him rescheduled for 1 PM and will send a transportation vehicle to take him directly there. Patient is safe for discharge to dialysis. 03/05 08:53 Order name: CBC with Diff; Complete Time: 09:58 sb4 03/05 08:53 Order name: BMP; Complete Time: 10:17 sb4 03/05 08:53 Order name: BNP; Complete Time: 10:17 sb4 03/05 08:53 Order name: Head C Spine MPR Wo Con CT; Complete Time: 09:23 sb4 03/05 08:53 Order name: Knee Left 3 View XRAY; Complete Time: 09:33 sb4 03/05 08:53 Order name: Knee Right 3 View XRAY; Complete Time: 09:33 sb4 03/05 10:17 Order name: EKG; Complete Time: 10:17 sb4 03/05 08:53 Order name: IV Start; Complete Time: 09:46 sb4 03/05 10:17 Order name: EKG - Nurse/Tech; Complete Time: 11:55 sb4 EC:28 Rate is 75 beats/min. Rhythm is regular, Normal Sinus Rhythm. LA interval is normal at sb4 154 msec. QRS interval is normal at 98 msec. QT interval is normal at 386 msec. No Q waves. T waves are Normal. No ST changes noted. Clinical impression: Normal ECG and No evidence of ischemia. Interpreted by me. Reviewed by me. Administered Medications: 12:07 Not Given (Patient Refused): [id number] grams PO once bp Disposition: 16:27 I was immediately available on-site in the Emergency Department for consultation in the ms3 care of the patient. Disposition Summary: 03/05/24 11:29 Discharge Ordered Notes: Location: Other sb4 Problem: new sb4 Symptoms: are unchanged sb4 Condition: Stable sb4 Diagnosis - Fall on same level, unspecified sb4 - End stage renal disease sb4 Followup: sb4 - With: Emergency Department - When: As needed - Reason: Trouble breathing, Worsening of condition Forms: - Medication Reconciliation Form sb4 - Antibiotic Education sb4 - Prescription Opioid Use sb4 - Patient Portal Instructions sb4 - Leadership Thank You Letter sb4 Signatures: Dispatcher [employer] EDWendi Mari, RN RN Pradeep Nguyen DO DO ms3 Janae Acosta PA-C PA-C sb4 Javier Vicente RN bp
--- NOTE | 2024-03-05 11:30 | ER ---
Nurse's Notes [facility] Name: Wild Koenig Age: 58 yrs Sex: Male : 1965 Arrival Date: 03/05/2024 Time: 08:49 Bed 3 Private MD: Diagnosis: Fall on same level, unspecified;End stage renal disease Presentation: 03/05 09:03 Chief complaint: EMS states: Bilateral knee pain after knees gave out when getting out hb of bed, negative LOC. Pt reports generalized weakness at baseline. Last HD was Tuesday due to holiday. Coronavirus screen: At this time, the client does not indicate any symptoms associated with coronavirus-19. Ebola Screen: No symptoms or risks identified at this time. Initial Sepsis Screen: Does the patient meet any 2 criteria? No. Patient's initial sepsis screen is negative. Does the patient have a suspected source of infection? No. Patient's initial sepsis screen is negative. Risk Assessment: Do you want to hurt yourself or someone else? Patient reports no desire to harm self or others. Onset of symptoms was March 05, 2024. Transition of care: HOME. 09:03 Method Of Arrival: EMS: [facility] hb 09:03 Acuity: MYNOR 3 hb Triage Assessment: 09:06 General: Appears in no apparent distress. Behavior is calm, cooperative. Pain: Pain hb currently is 5 out of 10 on a pain scale. Neuro: Level of Consciousness is awake, alert, obeys commands, Oriented to person, place, time, situation. Cardiovascular: Patient's skin is warm and dry. Respiratory: Respiratory effort is even, unlabored, Respiratory pattern is regular, symmetrical. Musculoskeletal: Reports bilateral knee pain. Historical: - Allergies: : No Known Allergies; hb - PMHx: 09:06 Anxiety; chronic back pain; Congestive heart failure; Depression; Diabetes - IDDM; hb Dialysis (right upper arm fis); Hypertension; - PSHx: : right upper arm fistula; hb - Immunization history:: Adult Immunizations up to date. - Infectious Disease History:: Denies. - Social history:: Smoking status: . Screenin:07 [facility] ED Fall Risk Assessment (Adult) History of falling in the last 3 months, hb including since admission Yes- physiologic fall (2 pts) Confusion or Disorientation No (0 pts) Intoxicated or Sedated Yes (3 pts) Impaired Gait Yes (1 pt) Mobility Assist Device Used Yes (1 pt) Altered Elimination No (0 pt) Score/Fall Risk Level 3 or more points = High Risk Oriented to surroundings, Maintained a safe environment, Educated pt \T\ family on fall prevention, incl call for assistance when getting out of bed. 09:08 Abuse screen: Denies threats or abuse. Denies injuries from another. Nutritional hb screening: No deficits noted. Tuberculosis screening: No symptoms or risk factors identified. Assessment: 09:07 General: See triage assessment . hb 09:48 Reassessment: Patient appears in no apparent distress at this time. Patient is alert, bp oriented x 3, equal unlabored respirations, skin warm/dry/pink. 12:08 Reassessment: PT DC WITH DIALYSIS CLINIC TRANSPORT. bp Vital Signs: 09:47 BP 181 / 88; Pulse 73; Resp 15; Pulse Ox 92% ; bp 12:08 BP 178 / 70; Pulse 74; Resp 20; Pulse Ox 96% ; bp [place] Coma Score: 11:27 Eye Response: spontaneous(4). Motor Response: obeys commands(6). Verbal Response: sb4 oriented(5). Total: 15. ED Course: 08:51 Patient arrived in ED. sb4 08:51 Janae Acosta PA-C is PHCP. sb4 08:51 Pradeep Nguyen DO is Attending Physician. sb4 09:05 Head C Spine MPR Wo Con CT In Process Unspecified. EDMS 09:06 Triage completed. hb 09:06 Arm band placed on. hb 09:08 Patient has correct armband on for positive identification. Provided Education on: use hb of call light . 09:28 Knee Left 3 View XRAY In Process Unspecified. EDMS 09:28 Knee Right 3 View XRAY In Process Unspecified. EDMS 09:40 Javier Vicente, RN is Primary Nurse. bp 09:47 Accessed peripheral vein via ultrasound, utilizing dynamic ultrasound technique using bp 20G Nexia IV catheter per hospital protocol. 12:08 No provider procedures requiring assistance completed. IV discontinued, intact, bp bleeding controlled, No redness/swelling at site. Pressure dressing applied. Administered Medications: 12:07 Not Given (Patient Refused): grams PO once bp Medication: 09:07 VIS not applicable for this client. hb Outcome: 11:29 Discharge ordered by MD. solis 12:08 Discharged to [facility] bp 12:08 Condition: stable 12:08 Discharge instructions given to patient, Instructed on discharge instructions, follow up and referral plans. Demonstrated understanding of instructions, follow-up care, 12:09 Patient left the ED. bp Signatures: Dispatcher [employer] EDWendi Mari RN RN hb Peltier, Brian, RN RN bp Brown, Sophia, PAEric solis
[2024-03-05 12:38] VITALS: BP 178/70; O2SAT 96
== END 2024-03-05 12:09 | disposition home or self-care (01) ==
LOC: ER 08:49
DX: E11.22 Type 2 diabetes mellitus with diabetic chronic kidney disease (principal); I13.2 Hypertensive heart and chronic kidney disease with heart failure and with stage 5 chronic kidney disease, or end stage renal disease; I50.9 Heart failure, unspecified; N18.6 End stage renal disease; Z99.2 Dependence on renal dialysis; M25.562 Pain in left knee; M25.561 Pain in right knee; R53.1 Weakness; W18.30XA Fall on same level, unspecified, initial encounter
CPT/HCPCS: 36415; 70450; 72125; 80048; 83880; 85025; 99284

== ENCOUNTER 2024-04-09 17:19 | Inpatient (IN) | payer MEDICARE ==
--- OUTSIDE RECORDS SUMMARY | 2024-04-09 17:23 | XMS REPORT | Continuity of Care Document ---
Author Name Unknown Address [address] [facility] [address] [place] [address] [facility] Address [address] [facility] [place] [address] Care Team Providers Care Client Services Specialist Name Role Phone [place] Martha [facility] Primary Car e Physician Unavailable Koby Low Attending Clinician Unavailable BALTAZAR JUDD Attending Clinician Unavailable BALTAZAR JUDD Attending Clinician Unavailable Baltazar Judd NP Attending Clinician [phone] Elbert --Kierra Attending Clinician Doctor Unassigned, [place] Attending Clinician U navailable CATALINA PRECIADO Attending Clinician Unavailable Catalina Preciado MD Attending Clinician [phone] Tommy Sosa Attending Clinician Unavailable Glory Muñiz RN Attending Clinician Unavailable Only, Ang Db Test Attending Clinician UnavailDiana Mustafa Attending Clinician [phone] HAYLIE RAMÍREZ Attending Clinician Unavailable Rebecca Hubbard DO Attending Clinician [phone] Haylie Ramírez MD Attending Clinician [phone] Koby Low Admitting Clinician Unavailable Zeke Russo Admitting Clinician Unavailable BALTAZAR JUDD Admitting Clinician Unavailable Tommy Sosa Admitting Clinician Unavailable HAYLIE RAMÍREZ Admitting Clinician Unavailable Haylie Ramírez MD Admitting Clinician Payers Payer Name Policy Type Policy Number Effective Date Expirati on Date Source [facility] [id number] 2022 00:00:00 [employer] MEDICARE ADVANTAGE PLAN DFGIANNA 2023 00:00:00 [employer] (MEDICARE REPLACEMENT HMO) [facility] 2022 00:00:00 Problems Condition Name Condition Details Condition Category Status Onset Date Resolution Date Last Treatment Date Treating Clinician Comments Source Morbid obesity with body mass index of 40.0-49.9 Morbid obesity with body mass index of 40.0-49.9 Disease Active 10-22 00:00: 00 [facility] Acute on chronic renal insufficie ncy Acute on chronic renal insufficie ncy Disease Active 10-22 00:00: 00 [facility] Alcohol dependence Alcohol dependence Disease Active 10-22 00:00: 00 [facility] Benign essential hypertensi on Benign essential hypertensi on Disease Active 10-22 00:00: 00 [facility] Cannabis abuse Cannabis abuse Disease Active 10-22 00:00: 00 [facility] Cocaine abuse Cocaine abuse Disease Active 10-22 00:00: 00 [facility] Congestive heart failure Congestive heart failure Disease Active 10-22 00:00: 00 [facility] Depressive disorder Depressive disorder Disease Active 10-22 00:00: 00 [facility] Diabetes mellitus Diabetes mellitus Disease Active 10-22 00:00: 00 [facility] Legal blindness [place] Legal blindness [place] Disease Active 10-22 00:00: 00 Overview: Formattin g of this note might be different from the original. Mar 12, 2020 Entered By: DON MARSH Comment: per 03/11/20 EYE NOTE [facility] Morbid obesity with body mass index of 40.0-49.9 Morbid obesity with body mass index of 40.0-49.9 Disease Active - 00:00: 00 [facility] Allergies, Adverse Reactions, Alerts Allergy Name Allergy Type Status Severity Reaction(s) Onset Date Inactive Date Treating Clinician Comments Source No Known Allergie s DA Active U 8-11 00:00: 00 [facility] No Known Allergie s DA Active U 2021-04 2-26 00:00: 00 [facility] NO KNOWN ALLERGIE S Drug Class Active [facility] Social History Social Habit Start Date Stop Date Quantity Comments Source [facility] SARS-CoV-2 (event) 2022-06-24 00:00:00 2022-07-04 11:43:00 Not sure [facility] Sex assigned at 1965 00:00:00 1965 00:00:00 [facility] Smoking Status Start Date Stop Date Source Tobacco smoking consumption unknown [facility] Medications Ordered Medication Name Filled Medication [...] Soft Tissue, Duration of Therapy: Once (ED) [facility] ketorolac (TORADOL) injection 30 mg 11-10 16:30: 00 11-10 15:44 :00 No 30mg 30 mg, Slow IV Push, ONCE, 1 dose, On Tue11/11/23 at 1130, Routine [facility] traMADoL 50 mg tablet 11-10 00:00: 00 11-18 04:59 :00 No [id number] 50mg Take 1 tablet by mouth every 6 (six) hours as needed for Pain (scale 7-10) for up to 7 days. Indication s: acute pain [facility] sulfamethox azole-trime thoprim 800-160 mg per tablet 11-10 00:00: 00 11-18 04:59 :00 No [id number] 1{tbl} Take 1 tablet by mouth every 12 (twelve) hours for 7 days. [facility] cephALEXin 500 mg capsule 11-10 00:00: 00 11-18 04:59 :00 No [id number] 1000mg Take 2 capsules by mouth in the morning and 2 capsules in the evening. Do all this for 7 days. [facility] calcitrioL 0.5 mcg capsule 10-24 00:00: 00 11-24 04:59 :00 No [id number] .5ug Take 1 capsule by mouth daily for 30 days. [facility] amLODIPine 5 mg tablet 10-24 00:00: 00 11-24 04:59 :00 No [id number] 5mg Take 1 tablet by mouth daily for 30 days. [facility] Cholecalcif jake, Vitamin D3, (VITAMIN D3) 125 mcg (5,000 unit) tablet 10-23 23:01: 32 Yes 5000U Take 5,000 Units by mouth daily. [facility] insulin detemir U-100 (LEVEMIR U-100 INSULIN) 100 unit/mL injection 10-23 23:01: 32 Yes 33U inject 33 Units under the skin 2 (two) times daily with meals. [facility] NOVOLOG U-100 INSULIN ASPART SC 10-23 23:01: 32 Yes 11U inject 11 Units under the skin 2 (two) times daily with meals. [facility] ARIPiprazol e (ABILIFY) 5 mg tablet 10-23 23:01: 31 Yes 5mg Take 5 mg by mouth daily. [facility] aspirin 81 mg chewable tablet 10-23 23:01: 31 Yes 81mg Take 81 mg by mouth daily. [facility] buPROPion XL 300 mg 24 hr tablet 10-23 23:01: 31 Yes 300mg Take 300 mg by mouth daily. [facility] vitamin B-12 1,000 mcg tablet 10-23 23:01: 31 Yes 1000ug Take 1,000 mcg by mouth daily. [facility] ferrous gluconate 324 mg (37.5 mg iron) tablet 10-23 23:01: 31 Yes 324mg Take 324 mg by mouth 2 (two) times daily. [facility] furosemide 80 mg tablet 10-23 23:01: 31 Yes 80mg Take 80 mg by mouth 2 (two) times daily. [facility] ergocalcife rol, vitamin d2, 1,250 mcg (50,000 unit) capsule 10-23 20:02: 43 10-23 00:00 :00 No [id number] Take 50,000 Units by mouth weekly. [facility] Cholecalcif jake, Vitamin D3, (VITAMIN D3) 125 mcg (5,000 unit) tablet 10-23 18:01: 32 Yes 5000U Take 5,000 Units by mouth daily. [facility] insulin detemir U-100 (LEVEMIR U-100 INSULIN) 100 unit/mL injection 10-23 18:01: 32 Yes 33U inject 33 Units under the skin 2 (two) times daily with meals. [facility] NOVOLOG U-100 INSULIN ASPART SC 10-23 18:01: 32 Yes 11U inject 11 Units under the skin 2 (two) times daily with meals. [facility] ARIPiprazol e (ABILIFY) 5 mg tablet 10-23 18:01: 31 Yes 5mg Take 5 mg by mouth daily. [facility] aspirin 81 mg chewable tablet 10-23 18:01: 31 Yes 81mg Take 81 mg by mouth daily. [facility] buPROPion XL 300 mg 24 hr tablet 10-23 18:01: 31 Yes 300mg Take 300 mg by mouth daily. [facility] vitamin B-12 1,000 mcg tablet 10-23 18:01: 31 Yes 1000ug Take 1,000 mcg by mouth daily. [facility] ferrous gluconate 324 mg (37.5 mg iron) tablet 10-23 18:01: 31 Yes 324mg Take 324 mg by mouth 2 (two) times daily. [facility] furosemide 80 mg tablet 10-23 18:01: 31 Yes 80mg Take 80 mg by mouth 2 (two) times daily. [facility] Sliding Scale Insulin - Lispro (HumaLOG) + Fsbg Testing 10-23 17:00: 00 Yes Subcutaneo us, TID MEALS+HS, First dose on Tue10/23/20 at 1200, Until Discontinu ed, Routine [facility] insulin glargine (LANTUS U-100) injection 33 Units 10-23 15:30: 00 Yes 33U 33 Units, Subcutaneo us, BID, First dose on Tue10/23/20 at 1030, Until Discontinu ed, Routine [facility] vitamin B-12 (CYANOCOBAL LINK) tablet 1,000 mcg 10-23 14:00: 00 Yes 1000ug 1,000 mcg, Oral, DAILY, First dose on Tue10/23/20 at 0900, Until Discontinu ed, Routine [facility] ergocalcife rol (vitamin d2) (CALCIFEROL ) capsule 50,000 Units 10-23 14:00: 00 Yes [id number] 50,000 Units, Oral, QWEEKLY, First dose on Tue10/23/20 at 0900, Until Discontinu ed, Routine [facility] citalopram (CELEXA) tablet 40 mg 10-23 14:00: 00 Yes 40mg 40 mg, Oral, DAILY, First dose on Tue10/23/20 at 0900, Until Discontinu ed, Routine [facility] cholecalcif jake (vitamin D3) tablet 5,000 Units 10-23 14:00: 00 Yes 5000U 5,000 Units, Oral, DAILY, First dose on Tue10/23/20 at 0900, Until Discontinu ed [facility] aspirin chewable tablet 81 mg 10-23 14:00: 00 Yes 81mg 81 mg, Oral, DAILY, First dose on Tue10/23/20 at 0900, Until Discontinu ed, Routine [facility] ARIPiprazol e (ABILIFY) tablet 5 mg 10-23 14:00: 00 Yes 5mg 5 mg, Oral, DAILY, First dose on Tue10/23/20 at 0900, Until Discontinu ed, Routine [facility] traMADoL (ULTRAM) tablet 50 mg 10-23 10:16: 54 Yes 50mg 50 mg, Oral, Q6HPRN, Starting Tue10/23/20 at 0516, Until Discontinu ed, Routine, Pain (scale 4-6) [facility] amLODIPine (NORVASC) tablet 5 mg 10-23 04:00: 00 Yes 5mg 5 mg, Oral, DAILY, First dose on Tue10/22/20 at 2300, Until Discontinu ed, Routine [facility] hydralAZINE (APRESOLINE ) injection 20 mg 10-23 03:56: 39 Yes 20mg 20 mg, Slow IV Push, Q4HPRN, Starting Tue10/22/20 at 2256, Until Discontinu ed, STAT, DBP=>100; SBP=>180<b r>Indicati on: Hypertensi ve Emergency [facility] atorvastati n (LIPITOR) tablet 40 mg 10-23 02:00: 00 Yes 40mg 40 mg, Oral, QHS, First dose on Tue10/22/20 at 2100, Until Discontinu ed, Routine [facility] furosemide (LASIX) tablet 80 mg 10-23 01:00: 00 Yes 80mg 80 mg, Oral, BID, First dose on Tue10/22/20 at 2000, Until Discontinu ed, Routine [facility] ferrous sulfate tablet 325 mg 10-23 01:00: 00 Yes 325mg 325 mg, Oral, BID, First dose on Tue10/22/20 at 2000, Until Discontinu ed [facility] ergocalcife rol, vitamin d2, 1,250 mcg (50,000 unit) capsule 10-23 00:00: 00 Yes [id number] Take 1 capsule by mouth weekly. [facility] D5W IV infusion 1,000 mL 10-22 22:15: 00 Yes [id number] 1000mL at 50 mL/hr, IV Infusion, CONTINUOUS , Starting Tue10/22/20 at 1715, Until Discontinu ed, Routine [facility] thiamine (VITAMIN B1) 200 mg in NaCl 0.9% (NS) piggyback 10-22 22:15: 00 10-22 22:45 :00 No [id number] 200mg IV Piggyback, ONCE, 1 dose, Tue10/22/20 at 1715, 50 mL [facility] insulin lispro (human) (HumaLOG U-100) injection 11 Units 10-22 21:30: 00 Yes 11U 11 Units, Subcutaneo us, BIDAC, First dose on Tue10/22/20 at 1630, Until Discontinu ed [facility] heparin (porcine) injection 5,000 Units 10-22 19:00: 00 Yes 5000U 5,000 Units, Subcutaneo us, Q8H, First dose on Tue10/22/20 at 1400, Until Discontinu ed, Routine [facility] ondansetron (ZOFRAN (PF)) injection 4 mg 10-22 17:49: 47 Yes 4mg 4 mg, Slow IV Push, Q6HPRN, Starting Tue10/22/20 at 1249, Until Discontinu ed, Routine, Nausea and Vomiting (N/V) [facility] acetaminoph en (TYLENOL) tablet 650 mg 10-22 17:49: 38 Yes 650mg 650 mg, Oral, Q6HPRN, Starting Tue10/22/20 at 1249, Until Discontinu ed, Routine, Pain (scale 1-3) [facility] bupropion hcl er (xl) 150 mg tablet [...] Source Zoster Vaccine Recombinant 2020-08-07 00:00:00 Completed [facility] Zoster Vaccine Recombinant 2020-08-07 00:00:00 Completed [facility] Zoster Vaccine Recombinant 2020-08-07 00:00:00 Completed [facility] Zoster Vaccine Recombinant 2020-08-07 00:00:00 Completed [facility] Zoster Vaccine Recombinant 2020-08-07 00:00:00 Completed [facility] SARS-COV-2 COVID-19 PFIZER VACCINE 2020-06-13 00:00:00 Completed [facility] SARS-COV-2 COVID-19 PFIZER VACCINE 2020-06-13 00:00:00 Completed [facility] SARS-COV-2 COVID-19 PFIZER VACCINE 2020-06-13 00:00:00 Completed [facility] SARS-COV-2 COVID-19 PFIZER VACCINE 2020-06-13 00:00:00 Completed [facility] SARS-COV-2 COVID-19 PFIZER VACCINE 2020-06-13 00:00:00 Completed [facility] Pneumococcal 13 Conjugate, PCV13 (Prevnar 13) 2020-04-18 00:00:00 Completed [facility] Pneumococcal 13 Conjugate, PCV13 (Prevnar 13) 2020-04-18 00:00:00 Completed [facility] Pneumococcal 13 Conjugate, PCV13 (Prevnar 13) 2020-04-18 00:00:00 Completed [facility] Pneumococcal 13 Conjugate, PCV13 (Prevnar 13) 2020-04-18 00:00:00 Completed [facility] Pneumococcal 13 Conjugate, PCV13 (Prevnar 13) 2020-04-18 00:00:00 Completed [facility] Influenza Virus Vaccine Quad IM 3+ YRS 2019-12-27 00:00:00 Completed [facility] Influenza Virus Vaccine Quad IM 3+ YRS 2019-12-27 00:00:00 Completed [facility] Influenza Virus Vaccine Quad IM 3+ YRS 2019-12-27 00:00:00 Completed [facility] Influenza Virus Vaccine Quad IM 3+ YRS 2019-12-27 00:00:00 Completed [facility] Influenza Virus Vaccine Quad IM 3+ YRS 2019-12-27 00:00:00 Completed [facility] Influenza Virus Vaccine 2019-05-05 00:00:00 Completed [facility] Influenza Virus Vaccine 2019-05-05 00:00:00 Completed [facility] Influenza Virus Vaccine 2019-05-05 00:00:00 Completed [facility] Influenza Virus Vaccine 2019-05-05 00:00:00 Completed [facility] Influenza Virus Vaccine 2019-05-05 00:00:00 Completed [facility] TDAP 2017-05-11 00:00:00 Completed [facility] TDAP 2017-05-11 00:00:00 Completed [facility] TDAP 2017-05-11 00:00:00 Completed [facility] TDAP 2017-05-11 00:00:00 Completed [facility] TDAP 2017-05-11 00:00:00 Completed [facility] Influenza Virus Vaccine 2014-12-26 00:00:00 Completed [facility] Influenza Virus Vaccine (3+ yrs) 2014-12-26 00:00:00 Completed [facility] Influenza Virus Vaccine 2014-12-26 00:00:00 Completed [facility] Influenza Virus Vaccine (3+ yrs) 2014-12-26 00:00:00 Completed [facility] Influenza Virus Vaccine 2014-12-26 00:00:00 Completed [facility] Influenza Virus Vaccine (3+ yrs) 2014-12-26 00:00:00 Completed [facility] Influenza Virus Vaccine 2014-12-26 00:00:00 Completed [facility] Influenza Virus Vaccine (3+ yrs) 2014-12-26 00:00:00 Completed [facility] Influenza Virus Vaccine 2014-12-26 00:00:00 Completed [facility] Influenza Virus Vaccine (3+ yrs) 2014-12-26 00:00:00 Completed [facility] SARS-COV-2 COVID-19 PFIZER VACCINE Unknown Completed [facility] Influenza Virus Vaccine Unknown Completed [facility] Influenza Virus Vaccine Quad IM 3+ YRS Unknown Completed [facility] Influenza Virus Vaccine (3+ yrs) Unknown Completed [facility] Pneumococcal 13 Conjugate, PCV13 (Prevnar 13) Unknown Completed [facility] TDAP Unknown Completed [facility] Zoster Vaccine Recombinant Unknown Completed [facility] Vital Signs Vital Name Observation Time Observation Value Comments S ource Systolic blood pressure 2023-11-11 18:09:00 134 mm[Hg] [facility] Diastolic blood pressure 2023-11-11 18:09:00 79 mm[Hg] [facility] Heart rate 2023-11-11 18:09:00 71 /min [facility] Body temperature 2023-11-11 18:09:00 36.22 Madalyn [facility] Respiratory rate 2023-11-11 18:09:00 18 /min [facility] Oxygen saturation in Arterial blood by Pulse oximetry 2023-11-11 18:09:00 96 /min [facility] Body height 2023-11-11 14:57:00 175.3 cm [facility] Body weight 2023-11-11 14:57:00 136.079 kg [facility] BMI 2023-11-11 14:57:00 44.30 kg/m2 [facility] Systolic blood pressure 2022-07-04 19:00:00 106 mm[Hg] [facility] Diastolic blood pressure 2022-07-04 19:00:00 57 mm[Hg] [facility] Heart rate 2022-07-04 19:00:00 51 /min [facility] Respiratory rate 2022-07-04 19:00:00 14 /min [facility] Oxygen saturation in Arterial blood by Pulse oximetry 2022-07-04 19:00:00 93 /min [facility] Body temperature 2022-07-04 16:43:00 36.06 Madalyn [facility] Body height 2022-07-04 16:43:00 177.8 cm [facility] Body weight 2022-07-04 16:43:00 149.687 kg [facility] BMI 2022-07-04 16:43:00 47.35 kg/m2 [facility] Systolic blood pressure 2020-10-23 21:02:00 94 mm[Hg] [facility] Diastolic blood pressure 2020-10-23 21:02:00 67 mm[Hg] [facility] Heart rate 2020-10-23 21:02:00 59 /min [facility] Body temperature 2020-10-23 21:02:00 36.56 Madalyn [facility] Respiratory rate 2020-10-23 21:02:00 13 /min [facility] Oxygen saturation in Arterial blood by Pulse oximetry 2020-10-23 21:02:00 94 /min [facility] Body height 2020-10-22 20:03:00 177.8 cm [facility] Body weight 2020-10-22 20:03:00 140.615 kg [facility] BMI 2020-10-22 20:03:00 44.48 kg/m2 [facility] Procedures Procedure Date / Time Performed Performing Clinician Source [id number] 2023-11-13 00:00:00 VICKEY EDGE [facility] DUPLEX VENOUS LEG LEFT - BY VASCULAR LAB 2023-11-11 15:47:00 Baltazar Judd [facility] PHOSPHORUS 2023-11-11 15:38:00 Baltazar Judd [facility] MAGNESIUM 2023-11-11 15:38:00 Baltazar Judd [facility] COMP. METABOLIC PANEL ([id number]) 2023-11-11 15:38:00 Baltazar Judd [facility] CBC WITH DIFF 2023-11-11 15:38:00 Baltazar Judd [facility] REFERRAL- REQUEST/RESPONSE 2022-08-05 05:01:00 D dayana Unassigned, [place] [facility] COMP. METABOLIC PANEL ([id number]) 2022-07-04 17:28:00 Catalina Preciado [facility] CBC WITH DIFF 2022-07-04 17:28:00 Catalina Preciado [facility] PROTHROMBIN TIME / INR 2022-07-04 17:28:00 Jason Preciado [facility] ACTIVATED PARTIAL THRMPLAS TOYA 2022-07-04 17:28:[address] [facility] [id number] 2022-03-31 00:00:00 CHERYL.01 [facility] [id number] 2022-03-29 00:00:00 CHERYL.01 [facility] [id number] 2022-03-29 00:00:00 CHERYL.01 [facility] MAGNESIUM 2020-10-23 09:20:00 [facility] (NA, K, CL, CO2, GLUCOSE, BUN, CREATININE, CA) 2020-10-23 09:20:00 Haylie Ramírez [facility] CBC WITH DIFF 2020-10-23 09:20[facility] 2020-10-23 00:59:00 Lisset Ramírez [facility] XR CHEST 2 VW 2020-10-23 00:43:19 Jojo Madrigal [facility] US RETROPERITONEAL COMPLETE 2020-10-22 23:18:55 [facility] FERRITIN SERUM 2020-10-22 21:56:00 Jojo Madrigal [facility] TOTAL IRON BINDING CAPACITY 2020-10-22 21:56:00 Kaitlin, Brigani [facility] THYROID STIMULATING HORMONE 2020-10-22 21:56:00 Jojo Madrigal [facility] INTACT PTH CALCIUM GROUP 2020-10-22 21:56:00 Saroj Madrigal [facility] HEPATITIS B SURFACE ANTIBODY 2020-10-22 21:56:00 Jojo Madrigal [facility] HEPATITIS B SURFACE ANTIGEN 2020-10-22 21:56:00 Jojo Madrigal [facility] HBC ANTIBODY (IGM & IGG) 2020-10-22 21:56:00 Saroj Madrigal [facility] N-TERMINAL PRO-BNP 2020-10-22 21:56:00 Jojo Madrigal [facility] VITAMIN D, 25-OH 2020-10-22 21:56:00 Jojo Madrigal [facility] POCT GLUCOSE (AUTOMATED) 2020-10-22 21:37:00 Lisset Ramírez [facility] URINE DRUG (IMMUNOASSAY) - COMPREHENSIVE DRUG SCREEN 2020-10-22 19:35:00 Meg Stinson [facility] GLYCOSYLATED HEMOGLOBIN (A1C) 2020-10-22 19:35:00 Meg Stinson [facility] OSMOLALITY URINE 2020-10-22 19:31:00 Jojo Madrigal [facility] URINALYSIS 2020-10-22 19:31:00 Rebecca Hubbard [facility] VITAMIN D, 25-OH 2020-10-22 19:31:00 Haylie Ramírez [facility] CREATININE, URINE RANDOM 2020-10-22 19:31:00 Saroj Madrigal [facility] TOTAL PROTEIN, URINE RANDOM 2020-10-22 19:31:00 Jojo Madrigal [facility] POTASSIUM, URINE RANDOM 2020-10-22 19:31:00 Nisha Madrigal [facility] SODIUM, URINE RANDOM 2020-10-22 19:31:00 oT Madrigal [facility] PHOSPHORUS 2020-10-22 19:30:00 Haylie Ram[facility]rez [facility] [facility] CREATINE KINASE 2020-10-22 19:30:00 Jojo Madrigal Un [facility] URIC ACID 2020-10-22 19:30:00 Desiree Haylie [facility] FERRITIN SERUM 2020-10-22 19:30:00 Haylie Ramírez [facility] IRON 2020-10-22 19:30:00 Desiree [facility] TOTAL IRON BINDING CAPACITY 2020-10-22 19:30:00 Haylie Ramírez [facility] INTACT PTH CALCIUM GROUP 2020-10-22 19:30:00 Lisset Ramírez [facility] HB ECG ROUTINE & RHYTHM STRIP 2020-10-22 16:16:29 Rebecca Hubbard [facility] COVID-19 (ID NOW RAPID TESTING) 2020-10-22 16:12:00 Rebecca Hubbard [facility] PHOSPHORUS 2020-10-22 15:15:00 Jojo Madrigal [facility] MAGNESIUM 2020-10-22 15:15:00 Rebecca Hubbard [facility] TROPONIN I 2020-10-22 15:15:00 Rebecca Hubbard [facility] COMP. METABOLIC PANEL ([id number]) 2020-10-22 15:15:00 Rebecca Hubbard [facility] CBC WITH DIFF 2020-10-22 15:15:00 Rebecca Hubbard U [facility] NOTICE OF PRIVACY PRACTICES 2020-10-22 14:39:44 Doctor Unassigned, [place] [facility] CONSENT/REFUSAL FOR DIAGNOSIS AND TREATMENT 2020-10-22 14:37:51 Doctor Unassigned, [place] [facility] Encounters Start Date/Time End Date/Time Encounter Type Admission Type Attending Clinicians Care Facility Care Department Encounter ID Source 2023-11-13 15:44:00 2023-11-14 19:34:00 Inpatient EM Koby Low [facility].02 [id number] [facility] 2023-11-13 17:56:00 2023-11-13 17:56:00 Outpatient Koby Low [facility] LABO [id number] [facility] 2023-11-11 10:02:00 2023-11-11 13:37:00 Emergency X BALTAZAR JUDD NELLAELICIABALTAZAR [facility] ERT [id number] [facility] 2023-11-11 10:02:00 2023-11-11 13:37:00 Emergency BrendaBaltazar [facility] 1.2840.114 350.1.13.10 4.2.7.2.686 [id number] [facility] 2023-11-10 12:00:00 2023-11-10 13:00:00 Initial D2Me Kierra Bsowell 2.16.840. [id number] 2.16.840.1. [id number] [facility] 2022-10-02 00:00:00 2022-10-02 00:00:00 Outpatient DMG DM [id number] [facility] 2022-08-05 00:00:00 2022-08-05 00:00:00 Orders Only Doctor Unassigned, [place] [facility] 1.2.840.114 350.1.13.10 4.2.7.2.686 [id number] [facility] 2022-07-04 11:42:00 2022-07-04 15:00:00 Emergency X CATALINA PRECIADO [facility] ERT [id number] [facility] 2022-07-04 11:42:00 2022-07-04 15:00:00 Emergency Catalina Preciado [facility] 1.84.114 350.1.13.10 4.2.7.2.686 [id number] [facility] 2022-03-30 18:47:00 2022-03-31 17:09:00 Inpatient Tommy Beckford [facility] TELE [id number] [facility] 2021-04-30 00:00:00 2021-04-30 00:00:00 Telephone Glory Muñiz [facility] 1.2.840.114 350.1.13.10 4.2.7.2.686 [id number] [facility] 2021-04-28 15:30:00 2021-04-28 15:45:00 Laboratory Only Only, Ang Db Test Charlie [facility] 1.2.840.114 350.1.13.10 4.2.7.2.686 [id number] [facility] 2020-10-22 09:47:00 2020-10-23 17:45:00 [facility]patient [facility] [id number] [facility] 2020-10-22 09:47:00 2020-10-23 17:45:00 Emergency Rebecca Hubbard [facility] 1.2.840.114 350.1.13.10 4.2.7.2.686 [id number] [facility] Results Test Description Test Time Test Comments Results Result Co mments Source AG HEPATITIS B [id number] 06:12:00* Test Item Value Reference Range Interpretation Comme nts AG HEPATITIS B SURFACE (test code = HBSAG) NEGATIVE SCREEN NEGATIVE AB HEPATITIS B [id number] 06:12:00* Test Item Value Reference Range Interpretation Comme nts AB HEPATITIS B CORE (test code = HBCAB) Negative Negative Performed At : [facility] [address] [id number] Kyle L MD Ph:[phone] AB HEPATITIS [id number] 06:12:00* Test Item Value Reference Range Interpretation Comme nts AB HEPATITIS C (test code = HCVAB) Non Reactive RATIO Non Reactive HCV antibody alone d oes not differentiate betweenpreviously resolved infection and active infection.Equivocal and Reactive HCV antibody results should befollowed up with an HCV RNA test to support the diagnosisof active HCV infection. BASIC METABOLIC [id number] 06:38:00* Test Item Value Reference Range Interpretation [...] CA) 8.7 MG/DL 8.5-10.1 N COMPREHENSIVE METABOLIC [id number] 06:38:00* Test Item Value Reference Range Interpretation [...] ALKP) 146 Unit/L 50-136 H CBC W/AUTO [id number] 06:12:00* Test Item Value Reference Range Interpretation [...] code = NRBC#) 0.0 K/mm3 0.00-0.01 N [id number] 20:14:00* Test Item Value Reference Range Interpretation Comme nts MAGNESIUM (test code = MAG) 2.2 MG/DL 1.8-2.4 N COVID 19 INHOUSE [id number] 17:45:00* Test Item Value Reference Range Interpretation Comme nts COVID 19 INHOUSE AG (test code = ZFPPV85MCMS) NEGATIVE Negative Per learning facilitator , 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 PROTHROMBIN [id number] 17:43:00* Test Item Value Reference Range Interpretation Comme [facility] PT PATIENT (test code = PTP) 13.3 [...] Infarction (to prevent recurrent infarct). THROMBOPLASTIN TIME [id number] 17:43:00* Test Item Value Reference Range Interpretation Comme [facility] THROMBOPLASTIN TIME PARTIAL (test code = PTT) 30.6 SECONDS 26-35 N NT PRO-BRAIN NATRIURETIC [id number] 17:27:00* Test Item Value Reference Range Interpretation Comme nts NT PRO-BRAIN NATRIURETIC PEP TI (test code = PROBNP) 8847 PG/ML 0-100 H TROP-I HIGH [id number] 17:27:00* Test Item Value Reference Range Interpretation [...] and URLs may varyby method. BASIC METABOLIC [id number] 17:27:00* Test Item Value Reference Range Interpretation [...] CA) 8.4 MG/DL 8.5-10.1 L HEPATIC FUNCTION [id number] 17:27:00* Test Item Value Reference Range Interpretation [...] code = ALKP) 137 Unit/L 50-136 H [id number] 17:27:00* Test Item Value Reference Range Interpretation Comme nts LIPASE (test code = LIP) 19 Unit/L 13-75 N CBC W/AUTO [id number] 16:56:00* Test Item Value Reference Range Interpretation [...] = NRBC#) 0.0 K/mm3 0.00-0.01 N LACTIC [id number] 16:33:00* Test Item Value Reference Range Interpretation Comme nts LACTIC ACID (test code = LACT) 0.2 mmol/L 0.4-1.9 L [id number] 16:05:28* Test Item Value Reference Range Interpretation Comme nts MAGNESIUM (test code = 4433205315) 1.8 mg/dL 1.7-2.4 Lab Interpretation (test cod e = 44888-0) Normal [facility]OL[facility] (57385)2023-11-11 16:05:07* Test Item Value Reference Range Interpretation Comme nts NA (test code = 5426151115) 136 mmol/L 135-145 K (test code = 5462124878) 5.5 mmol/L 3.5-5.0 H CL (test code = 3839019391) 98 mmol/L 98-108 CO2 TOTAL (test code = 2683087818) 21 mmol/L 23-31 L AGAP (test code = 3053414581) 17 2-16 H BUN (test code = 4650322728) 57 mg/dL 7-23 H GLUCOSE (test code = 8005422664) 109 mg/dL 70-110 CREATININE (test code = 2160-0) 10.04 mg/dL 0.60-1.25 H TOTAL BILI (test code = 6983963787) 0.8 mg/dL 0.1-1.1 CALCIUM (test code = 0389832056) 8.8 mg/dL 8.6-10.6 T PROTEIN (test code = 3816676808) 8.0 g/dL 6.3-8.2 ALBUMIN (test code = 4186102871) 4.1 g/dL 3.5-5.0 ALK PHOS (test code = 1557810918) 105 U/L 34-122 ALTv (test code = 1742-6) 13 U/L 5-50 AST(SGOT) (test code = 0643284048) 18 U/L 13-40 eGFR (test code = 79029-1) 5.5 mL/min/1.73m2 CKD-EPI eGFR (2020). Assuming creatinine has been stable day-to-day for at least three months, the eGFR indicates Category G5 (<= 14mL/min/1.73 m2) Lab Interpretation (test code = 93670-4) Abnormal [facility]2024-[facility] 16:04:51* Test Item Value Reference Range Interpretation Comme nts PHOSPHORUS (test code = 1993289267) 6.7 mg/dL 2.5-5.0 H Lab Interpretation (test cod e = 65118-3) Abnormal [facility] [id number] 15:50:27* Test Item Value Reference Range Interpretation [...] 32.6 g/dL 31.2-35.0 RDW-SD (test code = 83801-4) 48.6 fL 38.5-51.6 RDW-CV (test code = 788-0) 13.6 % 12.1-15.4 PLT (test code = 777-3) 213 150-328 MPV (test code = 48666-1) 10.1 fL 9.8-13.0 NRBC/100 WBC (test code = 5791397309) 0.0 0.0-10.0 NRBC x10^3 (test code = 6927216024) See_Comment [Automated message] The system which generated this result transmitted reference range: 10*3/?L. The reference range was not used to interpret this result as normal/abnormal. GRAN MAT (NEUT) % (test code = 770-8) 82.5 % IMM GRAN % (test code = 0923566940) 0.60 % LYMPH % (test code = 736-9) 6.8 % MONO % (test code = 5905-5) 8.9 % EOS % (test code = 713-8) 0.9 % BASO % (test code = 706-2) 0.3 % GRAN MAT x10^3(ANC) (test code = 0214745505) 11.60 10*3/uL 1.99-6.95 H IMM GRAN x10^3 (test code = 3279798790) 0.08 10*3/uL 0.00-0.06 H LYMPH x10^3 (test code = 731-0) 0.96 10*3/uL 1.09-3.23 L MONO x10^3 (test code = 742-7) 1.25 10*3/uL 0.36-1.02 H EOS x10^3 (test code = 711-2) 0.13 10*3/uL 0.06-0.53 BASO x10^3 (test code = 704-7) 0.04 10*3/uL 0.01-0.09 Lab Interpretation (test code = 73844-2) Abnormal [facility]. METABOLIC PANEL (11255)2022-07-04 18:07:19* Test Item Value Reference Range Interpretation Comme nts NA (test code = 7292936251) 141 mmol/L 135-145 K (test code = 0912042782) 5.1 mmol/L 3.5-5.0 H CL (test code = 7936407134) 111 mmol/L 98-108 H CO2 TOTAL (test code = 5293346348) 21 mmol/L 23-31 L AGAP (test code = 3298877465) 9 2-16 BUN (test code = 6436968280) 61 mg/dL 7-23 H GLUCOSE (test code = 8490915531) 71 mg/dL 70-110 CREATININE (test code = 0553543662) 7.66 mg/dL 0.60-1.25 H TOTAL BILI (test code = 4890394949) 0.5 mg/dL 0.1-1.1 CALCIUM (test code = 9876624458) 8.3 mg/dL 8.6-10.6 L T PROTEIN (test code = 5261151601) 6.3 g/dL 6.3-8.2 ALBUMIN (test code = 8479195560) 3.6 g/dL 3.5-5.0 ALK PHOS (test code = 8506481312) 99 U/L 34-122 ALTv (test code = 1742-6) 14 U/L 5-50 AST(SGOT) (test code = 7251551849) 16 U/L 13-40 eGFR (test code = 4288557509) 7.4 mL/min/1.73m2 CANDY (test code = CANDY) [...] imaging tests). Lab Interpretation (test code = 91230-3) Abnormal [facility] HospitalACTIVATED PARTIAL THRMPLAS [id number] 18:05:59* Test Item Value Reference Range Interpretation Comme [facility] APTT Patient (test code = 3173-2) 28 See_Comment [Automated message] The system which generated this result transmitted reference range: 23 - 38 Seconds. The reference range was not used to interpret this result as normal/abnormal. CANDY (test code = CANDY) The [facility] patient population mean normal value for aPTT is 30 seconds. Lab Interpretation (test code = 93788-6) Normal [facility] HospitalPROTHROMBIN TIME / [id number] 18:04:12* Test Item Value Reference Range Interpretation Comme [facility] PROTIME PATIENT (test code = 5964-2) 13.3 See_Comment [Automated [employer]] The system which generated this result transmitted reference range: 12.0 - 14.7 Seconds. The reference range was not used to interpret this result as normal/abnormal. INR (test code = 6301-6) 1.1 Normal INR <1.1; Warfarin Therapeutic range 2.0 to 3.0 or 2.5 to 3.5, depending upon the indications. Lab Interpretation (test code = 99244-3) Normal [facility] WITH [id number] 17:55:19* Test Item Value Reference Range Interpretation [...] g/dL 31.2-35.0 L RDW-SD (test code = 08727-7) 50.4 fL 38.5-51.6 RDW-CV (test code = 788-0) 13.9 % 12.1-15.4 PLT (test code = 777-3) 181 See_Comment [Automated messa ge] The system which generated this result transmitted reference range: 150 - 328 10*3/?L. The reference range was not used to interpret this result as normal/abnormal. MPV (test code = 28289-8) 10.1 fL 9.8-13.0 NRBC/100 WBC (test code = 7817405648) 0.0 See_Comment [Automated [employer] ssage] The system which generated this result transmitted reference range: 0.0 - 10.0 /100 WBCs. The reference range was not used to interpret this result as normal/abnormal. NRBC x10^3 (test code = 2288388514) See_Comment [Automated [employer]] The system which generated this result transmitted reference range: 10*3/?L. The reference range was not used to interpret this result as normal/abnormal. GRAN MAT (NEUT) % (test code = 770-8) 71.6 % IMM GRAN % (test code = 3515975907) 0.60 % LYMPH % (test code = 736-9) 16.2 % MONO % (test code = 5905-5) 7.3 % EOS % (test code = 713-8) 3.8 % BASO % (test code = 706-2) 0.5 % GRAN MAT x10^3(ANC) (test code = 3150859347) 5.69 10*3/uL 1.99-6.95 IMM GRAN x10^3 (test code = 6238737892) 0.05 10*3/uL 0.00-0.06 LYMPH x10^3 (test code = 731-0) 1.29 10*3/uL 1.09-3.23 MONO x10^3 (test code = 742-7) 0.58 10*3/uL 0.36-1.02 EOS x10^3 (test code = 711-2) 0.30 10*3/uL 0.06-0.53 BASO x10^3 (test code = 704-7) 0.04 10*3/uL 0.01-0.09 Lab Interpretation (test code = 05269-2) Abnormal [facility] HospitalGLUCOSE BEDSIDE [id number] 13:02:00* Test Item Value Reference Range Interpretation Comme nts GLUCOSE BEDSIDE TESTING (negrita t code = GLUBED) 263 MG/DL 60-99 H GLUCOSE BEDSIDE [id number] 07:47:00* Test Item Value Reference Range Interpretation Comme nts GLUCOSE BEDSIDE TESTING (negrita t code = GLUBED) 145 MG/DL 60-99 H COMPREHENSIVE METABOLIC [id number] 07:22:00* Test Item Value Reference Range Interpretation [...] and aplastic anemia) with specific assayson the [employer] 5600 of which Total Protein is one [...] code = ALKP) 100 UNITS/L 38-126 N [id number] 07:22:00* Test Item Value Reference Range Interpretation Comme nts MAGNESIUM (test code = MAG) 1.9 MG/DL 1.6-2.3 N CBC W/AUTO [id number] 06:40:00* Test Item Value Reference Range Interpretation [...] NRBC#) 0.00 K/mm3 0.0-0.1 N GLUCOSE BEDSIDE [id number] 18:59:00* Test Item Value Reference Range Interpretation Comme nts GLUCOSE BEDSIDE TESTING (negrita t code = GLUBED) 232 MG/DL 60-99 H GLUCOSE BEDSIDE [id number] 17:34:00* Test Item Value Reference Range Interpretation Comme nts GLUCOSE BEDSIDE TESTING (negrita t code = GLUBED) 204 MG/DL 60-99 H GLUCOSE BEDSIDE [id number] 11:25:00* Test Item Value Reference Range Interpretation Comme nts GLUCOSE BEDSIDE TESTING (negrita t code = GLUBED) 276 MG/DL 60-99 H COMPREHENSIVE METABOLIC [id number] 07:21:00* Test Item Value Reference Range Interpretation [...] code = ALKP) 102 UNITS/L 38-126 N [id number] 07:21:00* Test Item Value Reference Range Interpretation Comme nts MAGNESIUM (test code = MAG) 2.0 MG/DL 1.6-2.3 N CBC W/AUTO [id number] 06:47:00* Test Item Value Reference Range Interpretation [...] 0.00 K/mm3 0.0-0.1 N - XR CHEST [id number] 06:24:00 [facility] 1965 Sex: M Patient Name: ARNOLD PENA Unit No: [id number] EXAMS: CPT CODE: [id number] XR CHEST 1V 47776 EXAM: - XR [id number] Location code:C3 HISTORY: PULM EDEMA COMPARISON: None available time of interpretation. FINDINGS: Single AP view of the chest is provided. Left IJ dialysis catheter tip at the caval atrial junction is present. Heart size and vascularity are within normal limits. The lungs are clear of focal consolidation. No effusion, pneumothorax, or acute osseous abnormality. IMPRESSION: 1. No radiographic evidence of acute cardiopulmonary process. Electronically Signed by Shlomo Beasley MD on 03/30/2022 at 0624 Reported and signed by: Shlomo Beasley MD CC: Tommy Sosa MD Techno logist: Janet Arellano RT (R) Transcrpt Date/Tm/Trnsp: 03/30/2022 (623) t.ANGELIAR.CB5 Orig Print D/T: S: 03/30/2022 (626) [facility] NAME: ARNOLD PENA [address] PHYS: CHERYL.01 [place] [address] : 1965 AGE: 56 SEX: M LOC: Z.417 A PHONE #: [phone] EXAM DATE: 03/30/2022 STATUS: ADM IN FAX #: [phone] RADIOLOGY NO: PAGE 1 Signed ReportHEPATITIS B SURF AB, [id number] 19:23:00* Test Item Value Reference Range Interpretation [...] infection.~~~~~~~~~~~~~ ~~~~~~~~~~~~~~~~~~~~~~~ ~~~~~~~~~~~~~~~~~~~~~~~ ~ AG HEPATITIS B [id number] 19:23:00* Test Item Value Reference Range Interpretation Comme nts AG HEPATITIS B SURFACE (test code = HBSAG) NEGATIVE NONREACTIVE GLUCOSE BEDSIDE [id number] 19:18:00* Test Item Value Reference Range Interpretation Comme nts GLUCOSE BEDSIDE TESTING (negrita t code = GLUBED) 259 MG/DL 60-99 H COMPREHENSIVE METABOLIC [id number] 18:39:00* Test Item Value Reference Range Interpretation [...] and aplastic anemia) with specific assayson the [employer] 5600 of which Total Protein is one [...] mg/dL VERY HIGH.........>/= 190 mg/dL GLYCOSYLATED HEMOGLOBIN [id number] 18:28:00* Test Item Value Reference Range Interpretation [...] MBG) 174 MG/DL 70-110 H CBC W/AUTO [id number] 18:11:00* Test Item Value Reference Range Interpretation [...] 0.00 K/mm3 0.0-0.1 N INTACT PTH CALCIUM [id number] 15:40:51* Test Item Value Reference Range Interpretation Comme nts PTH-INTACT (test code = 7167014319) 174.9 pg/mL 12.0-88.0 H PTH-CA Interpretation (test code = 6519559942) Further clinical data needed for interpretation. CALCIUM (test code = 1940000382) 9.1 mg/dL 8.6-10.6 Lab Interpretation (test code = 74585-5) Abnormal [facility] CALCIUM [id number] 15:40:50* Test Item Value Reference Range Interpretation Comme nts PTH-INTACT (test code = 2829837557) 207.3 pg/mL 12.0-88.0 H PTH-CA Interpretation (test code = 1948757302) Further clinical data needed for interpretation. CALCIUM (test code = 5304147375) 9.2 mg/dL 8.6-10.6 Lab Interpretation (test code = 39024-5) Abnormal [facility] Metabolic Panel (NA, K, CL, CO2, GLUCOSE, BUN, CREATININE, CA)2020-10-23 11:42:35* Test Item Value Reference Range Interpretation Comme nts NA (test code = 2800767032) 142 mmol/L 135-145 K (test code = 9962057840) 3.8 mmol/L 3.5-5.0 CL (test code = 4197476976) 106 mmol/L 98-108 CO2 TOTAL (test code = 1893749468) 27 mmol/L 23-31 AGAP (test code = 9420187280) 2-16 BUN (test code = 8187932293) 76 mg/dL 7-23 H GLUCOSE (test code = 4536068337) 193 mg/dL 70-110 H CREATININE (test code = 4327549986) 6.07 mg/dL 0.60-1.25 H CALCIUM (test code = 9118311715) 9.1 mg/dL 8.6-10.6 eGFR (test code = 3324581334) mL/min/1.73m2 CANDY (test code = CANDY) Association [...] imaging tests). Lab Interpretation (test code = 33854-5) Abnormal [facility] HospitalMagnesium [id number] 11:42:35* Test Item Value Reference Range Interpretation Comme nts MAGNESIUM (test code = 3227279577) 2.3 mg/dL 1.7-2.4 Lab Interpretation (test cod e = 66235-3) Normal [facility] with Otbsdsotakeg4896-54-20 11:10:11* Test Item Value Reference Range Interpretation Comme nts WBC (test code = 6690-2) See_Comment [Automated [employer]] The system which generated this result transmitted reference range: 4.20 - 10.70 10*3/?L. The reference range was not used to interpret this result as normal/abnormal. RBC (test code = 789-8) See_Comment L [Automated [employer]] The system which generated this result transmitted [...] 31.5 g/dL 31.2-35.0 RDW-SD (test code = 32211-8) 45.0 fL 38.5-51.6 RDW-CV (test code = 788-0) 13.4 % 12.1-15.4 PLT (test code = 777-3) See_Comment [Automated [employer]] The system which generated this result transmitted reference range: 150 - 328 10*3/?L. The reference range was not used to interpret this result as normal/abnormal. MPV (test code = 55478-8) 10.6 fL 9.8-13.0 NRBC/100 WBC (test code = 9009554161) See_Comment [Automated me ssage] The system which generated this result transmitted reference range: 0.0 - 10.0 /100 WBCs. The reference range was not used to interpret this result as normal/abnormal. NRBC x10^3 (test code = 0336633070) <0.01 See_Comment [Automated messa ge] The system which generated this result transmitted reference range: 10*3/?L. The reference range was not used to interpret this result as normal/abnormal. GRAN MAT (NEUT) % (test code = 770-8) 67.1 % IMM GRAN % (test code = 1992492378) 0.30 % LYMPH % (test code = 736-9) 21.3 % MONO % (test code = 5905-5) 7.6 % EOS % (test code = 713-8) 3.3 % BASO % (test code = 706-2) 0.4 % GRAN MAT x10^3(ANC) (test code = 2246106943) 5.36 10*3/uL 1.99-6.95 IMM GRAN x10^3 (test code = 5280479093) <0.03 0.00-0.06 LYMPH x10^3 (test code = 731-0) 1.70 10*3/uL 1.09-3.23 MONO x10^3 (test code = 742-7) 0.61 10*3/uL 0.36-1.02 EOS x10^3 (test code = 711-2) 0.26 10*3/uL 0.06-0.53 BASO x10^3 (test code = 704-7) 0.03 10*3/uL 0.01-0.09 Lab Interpretation (test code = 26504-0) Abnormal [facility] GLUCOSE (AUTOMATED)2020-10-23 05:54:27* Test Item Value Reference Range Interpretation Comme nts POCT GLU (test code = 9742089834) 218 mg/dL 70-110 H Lab Interpretation (test cod e = 70157-7) Abnormal [facility] HospitalVITAMIN D, [id number] 05:11:32* Test Item Value Reference Range Interpretation Comme [facility] VIT D 25OH (test code = 51579-3) 46 ng/mL 25-80 CANDY (test code = CANDY) Deficiency: <20 ng/mLInsufficiency : 20-24 ng/mLOptimal: 25-80 ng/mL Lab Interpretation (test code = 64928-1) [facility] Core Antibody, Gtspb2579-52-30 05:11:12* Test Item Value Reference Range Interpretation Comme [facility] HBC (test code = 4582917232) Negative HBC Semi-Quantitative (test code = 1017167062) [facility] B SURFACE [id number] 05:11:12* Test Item Value Reference Range Interpretation Comme [facility] HBsAB (test code = 0702223094) Negative HBsAb Semi-Quantitative (test code = 9105981208) mIU/mL CANDY (test code = CANDY) Interpretation: ?Hepatitis B Surface Antibody ? Negative - Patient is considered to be not immune to infection with HBV. ? ? Positive - Anti-HBs detected at greater than or equal to 12 mIU/mL. ?Patient is considered to be immune to infection with HBV. ? [facility] B SURFACE [id number] 04:53:21 * Test Item Value Reference Range Interpretation Comme [facility] HBsAg Semi-Quantitative (negrita t code = 5195-3) Negative Negative [facility] HospitalTOTAL PROTEIN, URINE [id number] 03:14:16 * Test Item Value Reference Range Interpretation Comme nts T. PROT U (test code = 2888-6) 743 mg/dL [facility]ST 2 [id number] 02:58:28Impression: Nodular opacity overlying the left upper [...] unremarkablefor age, projection, and degree of inspiration. Sdmb, Radiant Results Inft User - 10/22/2020 10:17 [...] prior studies for comparison.RL: 460End of Report [facility]PO[facility] (AUTOMATED)2020-10-23 01:11:29* Test Item Value Reference Range Interpretation Comme nts POCT GLU (test code = 1528783147) 143 mg/dL 70-110 H Lab Interpretation (test cod e = 93528-9) Abnormal [facility] HospitalOSMOLALITY [id number] 00:56:19* Test Item Value Reference Range Interpretation Comme nts OSMO U (test code = 9210385252) See_Comment [Automated [employer]] The system which generated this result transmitted reference range: 50-1,100 mOsm/kg. The reference range was not used to interpret this result as normal/abnormal. Lab Interpretation (test code = 34747-5) [facility], [id number] 00:10:49* Test Item Value Reference Range Interpretation Comme nts VIT D 25OH (test code = 17837-6) 39 ng/mL 25-80 CANDY (test code = CANDY) Deficiency: <20 ng/mLInsufficiency : 20-24 ng/mLOptimal: 25-80 ng/mL Lab Interpretation (test code = 70299-2) Normal [facility]FERRITIN [id number] 23:38:41* Test Item Value Reference Range Interpretation Comme nts FERRITIN (test code = 2246176887) 51.5 ng/mL 18.0-464.0 CANDY (test code = CANDY) Biotin has been reported to cause a negative bias, interpret results relative to patient's use of biotin. Lab Interpretation (test code = 19137-4) Normal [facility] HospitalTHYROID STIMULATING [id number] 23:34:40 * Test Item Value Reference Range Interpretation Comme nts TSH (test code = 8285231145) See_Comment [Automated [employer]] The system which generated this result transmitted reference range: 0.45 - 4.70 mIU/L. The reference range was not used to interpret this result as normal/abnormal. Lab Interpretation (test code = 23459-4) Normal [facility] HospitalN-TERMINAL [id number] 23:12:53* Test Item Value Reference Range Interpretation Comme nts NT-proBNP (test code = 1634686243) 592 pg/mL See_Comment H [Automated message] The system which generated this result transmitted reference range: <=125. The reference range was not used to interpret this result as normal/abnormal. CANDY (test code = CANDY) Biotin has been reported to cause a negative bias, interpret results relative to patient's use of biotin. Lab Interpretation (test code = 11804-4) Abnormal [facility] HospitalTOTAL IRON BINDING [id number] 23:12:53 * Test Item Value Reference Range Interpretation Comme nts TIBC (test code = 8520836444) 326 ug/dL 250-410 Lab Interpretation (test cod e = 10035-0) Normal [facility] HospitalGLYCOSYLATED HEMOGLOBIN (A1C)2020-10-22 22:38:18* Test Item Value Reference Range Interpretation Comme nts HGB A1C (test code = 4548-4) 7.0 % 4.0-5.7 H CANDY (test code = CANDY) Reference RangesNormal: <5.7%Prediabetes: 5.7 - 6.4%Diabetes: > 6.5% Lab Interpretation (test code = 62220-1) Abnormal [facility] HospitalCREATINE [id number] 21:46:35* Test Item Value Reference Range Interpretation Comme nts CK (test code = 7005496434) 122 U/L 33-194 Lab Interpretation (test cod e = 85121-7) Normal [facility]FERRITIN [id number] 21:38:35* Test Item Value Reference Range Interpretation Comme nts FERRITIN (test code = 4396021628) 51.8 ng/mL 18.0-464.0 CANDY (test code = CANDY) Biotin has been reported to cause a negative bias, interpret results relative to patient's use of biotin. Lab Interpretation (test code = 49191-8) Normal [facility] HospitalDRUG PANEL 2 [id number] 21:37:33* Test Item Value Reference Range Interpretation Comme nts AMPHET (test code = 1356489885) Negative Negative VIDAL U (test code = 4668913195) Negative Negative BENZO U (test code = 6984953704) Negative Negative Cocaine Metabolite (test code = 2267108048) Presumptive Positive Negative A METHADONE (test code = 1705224535) Negative Negative OPIATES (test code = 7943277059) Negative Negative PCP (test code = 6678580021) Negative Negative THC (test code = 7720673409) Negative Negative CANDY (test code = CANDY) [...] legal testing). Lab Interpretation (test code = 72429-7) Abnormal [facility] HospitalPHOSPHORUS2021-07-21 21:17:04* Test Item Value Reference Range Interpretation Comme nts PHOSPHORUS (test code = 2829649744) 5.3 mg/dL 2.5-5.0 H Lab Interpretation (test cod e = 68008-4) Abnormal [facility] HospitalTOTAL IRON BINDING [id number] 21:11:47 * Test Item Value Reference Range Interpretation Comme nts TIBC (test code = 3833128760) 329 ug/dL 250-410 % FE SAT (test code = 0698351572) 18 % 20-50 L Lab Interpretation (test cod e = 19857-7) Abnormal [facility] HospitalPhosphorus [id number] 20:56:00* Test Item Value Reference Range Interpretation Comme nts PHOSPHORUS (test code = 4301137409) 5.3 mg/dL 2.5-5.0 H Lab Interpretation (test cod e = 30499-1) Abnormal [facility] HospitalURIC [id number] 20:55:40* Test Item Value Reference Range Interpretation Comme nts URIC ACID (test code = 8719622397) 11.0 mg/dL 3.6-8.0 H Lab Interpretation (test cod e = 01780-1) Abnormal [facility] HospitalIRON2021-07-21 20:55:24* Test Item Value Reference Range Interpretation Comme nts IRON (test code = 7413392082) 58 ug/dL 50-160 Lab Interpretation (test cod e = 71934-3) Normal [facility] HospitalCREATININE, URINE [id number] 20:52:05* Test Item Value Reference Range Interpretation Comme nts CREAT U (test code = 8278275257) 131.8 mg/dL [facility] HospitalSODIUM, URINE [id number] 20:36:37* Test Item Value Reference Range Interpretation Comme nts NA URINE (test code = 6244758446) 31 mmol/L [facility] HospitalPOTASSIUM, URINE [id number] 20:36:37* Test Item Value Reference Range Interpretation Comme nts K URINE (test code = 5973852830) 24.0 mmol/L [facility] HospitalURINALYSIS2021-07-21 20:22:33* Test Item Value Reference Range Interpretation Comme nts APPEARANCE (test code = 3831740528) Hazy Clear A COLOR (test code = 9188616130) Yellow Yellow PH (test code = 3521559798) 4.8-8.0 SP GRAVITY (test code = 0083887644) 1.003-1.030 GLU U QUAL (test code = 7818760884) 150 mg/dL Normal A BLOOD (test code = 2274909545) 1+ Negative A KETONES (test code = 4417962258) Negative Negative PROTEIN (test code = 2887-8) 500 mg/dL Negative A UROBILIN (test code = 0764802709) Normal Normal BILIRUBIN (test code = 4246495442) Negative Negative NITRITE (test code = 7229444552) Negative Negative LEUK MING (test code = 6415103526) Negative Negative RBC/HPF (test code = 9742867635) See_Comment [Automated [employer]] The system which generated this result transmitted reference range: 0 - 3 HPF. The reference range was not used to interpret this result as normal/abnormal. WBC/HPF (test code = 1251474708) See_Comment [Automated [employer]] The system which generated this result transmitted reference range: 0 - 5 HPF. The reference range was not used to interpret this result as normal/abnormal. BACTERIA (test code = 9016570766) Few Negative A MUCOUS (test code = 9533305225) Slight Negative LPF A AMORPHOUS (test code = 0026763590) Few Rare HPF A SQ EPITH (test code = 9860448263) HPF YEAST BUD (test code = 3500613495) See_Comment H [Automated messa ge] The system which generated this result transmitted reference range: <=1 HPF. The reference range was not used to interpret this result as normal/abnormal. SPERM (test code = 6505001900) See_Comment [Automated [employer]] The system which generated this result transmitted reference range: <=1 HPF. The reference range was not used to interpret this result as normal/abnormal. HYAL CAST (test code = 0041357866) See_Comment [Automated [employer] ge] The system which generated this result transmitted reference range: <=2 LPF. The reference range was not used to interpret this result as normal/abnormal. Lab Interpretation (test code = 59158-8) Abnormal [facility] HospitalCOVID-19 (ID NOW RAPID TESTING)2020-10-22 16:44:47* Test Item Value Reference Range Interpretation Comme nts SARS-CoV-2 Rapid ID NOW (test code = 89557-8) Not Detected Not Detected CANDY (test code = CANDY) ID NOW COVID-19 As say is an isothermal nucleic acid amplification test intended for the qualitative detection of nucleic acid from SARS-CoV-2 viral RNA in nasopharyngeal (TOP SPOTTER) specimens. It is used under Emergency Use [...] clinically indicated. Lab Interpretation (test code = 80608-8) Normal [facility] HospitalTROPONIN [id number] 16:31:45* Test Item Value Reference Range Interpretation Comments TROPONIN I (test code = 9388582992) 0.014 ng/mL See_Comment [Automated message] The system [...] of biotin. Lab Interpretation (test code = 83104-9) Normal [facility] HospitalMAGNESIUM2021-07-21 16:20:42* Test Item Value Reference Range Interpretation Comme nts MAGNESIUM (test code = 5038485578) 2.2 mg/dL 1.7-2.4 Lab Interpretation (test cod e = 75906-9) Normal [facility] HospitalCOMP. METABOLIC PANEL (21000)2020-10-22 15:35:30* Test Item Value Reference Range Interpretation Comme nts NA (test code = 3908455686) 141 mmol/L 135-145 K (test code = 9358574826) 4.0 mmol/L 3.5-5.0 CL (test code = 6209290962) 104 mmol/L 98-108 CO2 TOTAL (test code = 8651969075) 27 mmol/L 23-31 AGAP (test code = 4105453165) 2-16 BUN (test code = 4939239922) 80 mg/dL 7-23 H GLUCOSE (test code = 3117213135) 143 mg/dL 70-110 H CREATININE (test code = 1435602171) 6.40 mg/dL 0.60-1.25 H TOTAL BILI (test code = 5682933844) 0.4 mg/dL 0.1-1.1 CALCIUM (test code = 1473771477) 9.4 mg/dL 8.6-10.6 T PROTEIN (test code = 7939600828) 7.8 g/dL 6.3-8.2 ALBUMIN (test code = 0373093840) 4.1 g/dL 3.5-5.0 ALK PHOS (test code = 7598919190) 115 U/L 34-122 ALTv (test code = 1742-6) 13 U/L 5-50 AST(SGOT) (test code = 9125305939) 16 U/L 13-40 eGFR (test code = 5081985919) mL/min/1.73m2 CANDY (test code = CANDY) Association [...] imaging tests). Lab Interpretation (test code = 36416-2) Abnormal [facility] WITH [id number] 15:26:32* Test Item Value Reference Range Interpretation Comme nts WBC (test code = 6690-2) See_Comment [Automated [employer]] The system which generated this result transmitted reference range: 4.20 - 10.70 10*3/?L. The reference range was not used to interpret this result as normal/abnormal. RBC (test code = 789-8) See_Comment L [Automated [employer]] The system which generated this result transmitted [...] 33.0 g/dL 31.2-35.0 RDW-SD (test code = 09413-7) 43.7 fL 38.5-51.6 RDW-CV (test code = 788-0) 13.2 % 12.1-15.4 PLT (test code = 777-3) See_Comment [Automated [employer]] The system which generated this result transmitted reference range: 150 - 328 10*3/?L. The reference range was not used to interpret this result as normal/abnormal. MPV (test code = 52903-5) 10.2 fL 9.8-13.0 NRBC/100 WBC (test code = 5063902303) See_Comment [Automated [employer]] The system which generated this result transmitted reference range: 0.0 - 10.0 /100 WBCs. The reference range was not used to interpret this result as normal/abnormal. NRBC x10^3 (test code = 1701250194) <0.01 See_Comment [Automated [employer]a ge] The system which generated this result transmitted reference range: 10*3/?L. The reference range was not used to interpret this result as normal/abnormal. GRAN MAT (NEUT) % (test code = 770-8) 71.3 % IMM GRAN % (test code = 5127546189) 0.40 % LYMPH % (test code = 736-9) 15.5 % MONO % (test code = 5905-5) 9.0 % EOS % (test code = 713-8) 3.3 % BASO % (test code = 706-2) 0.5 % GRAN MAT x10^3(ANC) (test code = 6527904195) 5.77 10*3/uL 1.99-6.95 IMM GRAN x10^3 (test code = 7000413575) 0.03 10*3/uL 0.00-0.06 LYMPH x10^3 (test code = 731-0) 1.25 10*3/uL 1.09-3.23 MONO x10^3 (test code = 742-7) 0.73 10*3/uL 0.36-1.02 EOS x10^3 (test code = 711-2) 0.27 10*3/uL 0.06-0.53 BASO x10^3 (test code = 704-7) 0.04 10*3/uL 0.01-0.09 Lab Interpretation (test code = 54504-4) Abnormal [facility]"
[2024-04-09] MEDS ORDERED: VANCOMYCIN 1 GM/VIAL ONE (20:09)
[2024-04-09] MEDS ORDERED: NA CHLORIDE 0.9% 2,000 ML ONE (20:09)
[2024-04-09] MEDS ORDERED: ACETAMINOPHEN 500 MG TAB ONE (20:09)
[2024-04-09] MEDS ORDERED: NA CHLORIDE 0.9% 500 ML ONE (20:10)
--- NOTE | 2024-04-09 20:18 | RAD REPORT ---
Procedure: Chest Single View HISTORY: Cough COMPARISON: 2021 FINDINGS: The lungs appear clear of acute infiltrate. No significant pleural effusion noted. The heart is mildly enlarged.. IMPRESSION: No acute abnormality is displayed.
--- NOTE | 2024-04-09 20:20 | RAD REPORT ---
Exam:Foot Left 3 View CLINICAL HISTORY: Left foot pain FINDINGS: No fracture or dislocation seen Soft tissue swelling. No bony destructive lesion seen. Vascular calcifications. Large calcaneal spur
[2024-04-09 20:39] LABS: Absolute Lymphocytes (CBC) 0.6 K/uL (0.7-4.9); Absolute Monocytes 1.2 K/uL (0.1-1.3); Absolute Neutrophil 14.8 K/uL (1.8-8.0); Basophils % 0.3 % (0-1.3); Eosinophils % 0.1 % (0-4.4); Hematocrit 29.4 % (39.6-49.0); Hemoglobin 9.7 g/dL (13.6-17.9); Lymphocytes % 3.4 % (15.3-44.8); MCH 31.1 pg (27.0-35.0); MCHC 32.9 g/dL (32.0-36.0); MCV 94.5 fL (80-100); MPV 7.6 fL (7.6-11.3); Neutrophils % 89.2 % (41.7-73.7); Platelets 277 thou/uL (152-406); RBC Red Blood Cell Count 3.11 M/uL (4.33-5.43); Red Cell Distribution Width 15.4 % (12.1-15.2)
[2024-04-09 20:45] LABS: PT Prothrombin Time 14.9 SECONDS (9.4-12.5); PTT, Activated Partial Thromb 29.9 SECONDS (24.3-36.9); Protime INR 1.34
[2024-04-09 21:01] LABS: Albumin 2.5 g/dL (3.4-5.0); Albumin/Globulin Ratio 0.5 (1.1-1.8); Anion Gap 13.6 mEq/L (5.0-15.0); Bilirubin Total 0.8 mg/dL (0.2-1.0); Globulin 4.8 g/dL (2.3-3.5); Potassium 4.6 mEq/L (3.5-5.1); Protein, Total 7.3 g/dL (6.4-8.2)
[2024-04-09 21:12] LABS: Blood Morphology Comment NOT SEEN (NOT SEEN); Platelet Estimate ADEQ; White Blood Cell Scan OK (OK)
[2024-04-09 21:53] LABS: SARS-CoV-2 Antigen CONTROL BLUE LINE VIS/BG OK; SARS-CoV-2 Antigen Rapid Res Negative (Negative)
[2024-04-09 22:08] LABS: Arterial Blood Carboxyhemoglob 1.1 % (0-1.5); Blood Gas Oxyhemoglobin 59.2 % (94-97); Blood Gas THB 11.2 g/dl (12-18); Blood O2 Saturation 61.1 % (92-98.5)
[2024-04-09 22:21] LABS: BETA HYDROXYBUTYRATE 0.29 mmol/L (0.02-0.27)
--- NOTE | 2024-04-09 23:16 | EDPHYS ---
Physician Documentation [facility] Name: Wild Koenig Age: 59 yrs Sex: Male : 1965 Arrival Date: 04/09/2024 Time: 17:19 Bed 7 Private MD: ED Physician Romie Montanez HPI: 04/09 18:59 This 59 yrs old Male presents to ER via EMS with complaints of Foot Injury. gb1 18:59 Mr. Koenig is a 59-year-old male with a wound on his left heel that his home 1 health nurse was concerned about is infected. He has history of insulin-dependent diabetes, CHF, anxiety, depression, ESRD on dialysis and chronic back pain. He denies any fever or chills but states that his blood sugars have been up and down lately. He denies any nausea vomiting or diarrhea.. Historical: - Allergies: 17:27 No Known Allergies; ld1 - PMHx: 17:27 Anxiety; chronic back pain; Congestive heart failure; Depression; Diabetes - IDDM; ld1 Dialysis (right upper arm fis); Hypertension; - PSHx: 17:27 right upper arm fistula; ld1 - Immunization history:: Adult Immunizations up to date. - Infectious Disease History:: Denies. - Social history:: Smoking status: unknown. Exam: 18:59 Constitutional: This is a well developed, well nourished patient who is awake, alert, gb1 and in no acute distress. Head/Face: Normocephalic, atraumatic. Eyes: Pupils equal round and reactive to light, extra-ocular motions intact. Lids and lashes normal. Conjunctiva and sclera are non-icteric and not injected. Cornea within normal limits. Periorbital areas with no swelling, redness, or edema. ENT: Nares patent. No nasal discharge, no septal abnormalities noted. Tympanic membranes are normal and external auditory canals are clear. Oropharynx with no redness, swelling, or masses, exudates, or evidence of obstruction, uvula midline. Mucous membranes moist. Neck: Trachea midline, no thyromegaly or masses palpated, and no cervical lymphadenopathy. Supple, full range of motion without nuchal rigidity, or vertebral point tenderness. No Meningismus. Chest/axilla: Normal chest wall appearance and motion. Nontender with no deformity. No lesions are appreciated. Cardiovascular: Regular rate and rhythm with a normal S1 and S2. No gallops, murmurs, or rubs. Normal PMI, no JVD. No pulse deficits. Respiratory: Lungs have equal breath sounds bilaterally, clear to auscultation and percussion. No rales, rhonchi or wheezes noted. No increased work of breathing, no retractions or nasal flaring. Abdomen/GI: Soft, non-tender, with normal bowel sounds. No distension or tympany. No guarding or rebound. No evidence of tenderness throughout. Back: No spinal tenderness. No costovertebral tenderness. Full range of motion. MS/ Extremity: Pulses equal, no cyanosis. Neurovascular intact. Full, normal range of motion. Patient has a left heel wound that is malodorous and does smell like gangrene. There is yellow-green drainage on the bandage. Patient states that it has been draining and smelling worse the last few days to weeks. Patient's home health nurse been changing the dressings but he finally came in today for evaluation. 20:59 ECG was reviewed by the Attending Physician. rt Vital Signs: 17:39 Pulse 90; Resp 18; Pulse Ox 91% on R/A; ld1 17:44 BP 141 / 52; Pulse 89; ld1 17:46 Temp 100.2(O); Weight 137.44 kg; ld1 18:57 BP 110 / 60; Pulse 82; Resp 18; Pulse Ox 91% on R/A; ld1 22:41 Pulse 69; Resp 16; Pulse Ox 94% on R/A; jb4 04/10 00:30 BP 119 / 60; Pulse 58; Resp 16; Pulse Ox 94% on R/A; jb4 02:00 BP 92 / 69; Pulse 59; Resp 17; Pulse Ox 96% ; jj7 MDM: 04/09 17:35 Medical Screening Exam initiated gb1 18:59 Differential diagnosis: Acute osteomyelitis versus diabetic ulcer with gangrene. gb1 Patient is febrile so concern of course for sepsis. Septic workup is pending. 20:27 ED course: IV antibiotics started here, pt clinically transitioned to Dr. Montanez gb1 pending labs.. 04/10 01:59 Data reviewed: vital signs, nurses notes, lab test result(s), radiologic studies. rt Consideration of Admission/Observation Patient was admitted/placed on observation. Management of patient was discussed with the following: Hospitalist: Agrees to admit. I considered the following discharge prescriptions or medication management in the emergency department Medications were administered in the Emergency Department. See MAR. Independent interpretation of the following test(s) in the Emergency Department X-Ray: My interpretation is No fracture seen on interpretation of x-ray images. Care significantly affected by the following chronic conditions: Diabetes, Chronic Kidney Disease. Counseling: I had a detailed discussion with the patient and/or guardian regarding the historical points, exam findings, and any diagnostic results supporting the discharge/admit diagnosis, lab results, radiology results, the need for further work-up and treatment in the hospital. Response to treatment: There is no appreciated change of the patient's symptoms at this time. 04/09 18:59 Order name: Blood Culture Adult (2) 04/09 18:59 Order name: CBC with Diff; Complete Time: 21:33 gb1 04/09 18:59 Order name: CMP; Complete Time: 23:10 gb04/09 18:59 Order name: Lactate w/ 2H reflex if indic.; Complete Time: 21:08 gb04/09 18:59 Order name: Protime (+inr); Complete Time: 20:46 gb04/09 18:59 Order name: Ptt, Activated; Complete Time: 20:46 gb04/09 18:59 Order name: Urinalysis w/ reflexes gb04/09 18:59 Order name: BETA HYDROXYBUTYRATE; Complete Time: 23:10 gb1 04/09 18:59 Order name: ABG: VBG please 04/09 20:28 Order name: SARS RAPID; Complete Time: 22:10 gb04/09 20:28 Order name: Flu; Complete Time: 22:10 gb04/09 20:50 Order name: CBC Smear Scan; Complete Time: 21:33 EDMS 04/10 00:29 Order name: Urinalysis w/ reflexes EDMS 04/10 00:29 Order name: CBC with Automated Diff EDMS 04/10 00:29 Order name: CBC with Automated Diff EDMS 04/10 00:29 Order name: Comprehensive Metabolic Panel EDMS 04/10 00:29 Order name: Comprehensive Metabolic Panel EDKS 04/09 18:57 Order name: Foot Left 3 View XRAY; Complete Time: 20:24 gb1 04/09 18:59 Order name: Chest Single View XRAY; Complete Time: 20:24 gb1 04/09 18:59 Order name: EKG; Complete Time: 18:59 gb1 04/10 00:29 Order name: [facility] Cons EDMS 04/09 18:59 Order name: Accucheck; Complete Time: 21:20 gb1 04/09 18:59 Order name: Cardiac monitoring; Complete Time: 20:38 gb1 04/09 18:59 Order name: EKG - Nurse/Tech; Complete Time: 21:19 gb1 04/09 18:59 Order name: IV Saline Lock - Large Bore; Complete Time: 20:38 gb1 04/09 18:59 Order name: Labs collected and sent; Complete Time: 20:38 gb1 04/09 18:59 Order name: O2 Per Protocol; Complete Time: 20:39 gb1 04/09 18:59 Order name: O2 Sat Monitoring; Complete Time: 20:39 gb1 04/09 18:59 Order name: Vital Signs; Complete Time: 20:39 gb1 EC/06 20:59 Rate is 81 beats/min. Rhythm is regular, Normal Sinus Rhythm with No ectopy. QRS [place] rt is Normal. [place] interval is normal. QRS interval is normal. QT interval is normal. No Q waves. T waves are Normal. No ST changes noted. Interpreted by me. Administered Medications: 20:25 Drug: Acetaminophen PO 1000 mg PO once Route: PO; rg5 04/10 02:03 Follow up: Response: Marked relief of symptoms 7 04/09 20:30 Drug: NS 0.9% IV (30 ml/kg) 30 ml/kg IV at bolus once; Sepsis Protocol; to be given as rg5 a bolus over 90 minutes Route: IV; Rate: bolus; Site: left upper arm; 04/10 02:03 Follow up: IV Status: Completed infusion jj7 04/09 20:35 Drug: vancoMYCIN IVPB 2 grams IVPB at calculated rate once Route: IVPB; Rate: rg5 calculated rate; Site: left upper arm; 04/10 02:03 Follow up: IV Status: Completed infusion jj7 Disposition Summary: 04/09/24 23:15 Hospitalization Ordered Notes: Hospitalization Status: Inpatient Admission rt Provider: Magdaleno Martinez [facility] rt Condition: Stable rt Problem: new rt Symptoms: are unchanged rt Bed/Room Type: Standard rt Room Assignment: 224(04/10/24 01:17) vk Diagnosis - Cellulitis left foot rt - Sepsis rt Forms: - Medication Reconciliation Form rt - SBAR form rt - Leadership Thank You Letter rt Critical care time excluding procedures: 01:59 Critical care time: Bedside Care: 30 minutes, Consultation: 5 minutes. Total time: 35 rt minutes Signatures: Dispatcher [employer] EDMS Alejandra Nguyen, RN RN ld1 Romie Montanez MD MD rt Serina Conway MD MD gb1 Becca Yi Rommel RN RN rg5 Frannie Ambriz RN jj7 Corrections: (The following items were deleted from the chart) 04/09 18:58 18:58 Foot Left 3 View+RAD.RAD.BRZ ordered. EDKS EDMS 20:27 18:59 Differential diagnosis: Acute osteomyelitis versus diabetic ulcer with gangrene. gb1 Patient is febrile so concern of course for sepsis. Septic workup is pending gb1 04/10 01:17 04/09 23:15 rt vk
--- NOTE | 2024-04-09 23:16 | ER ---
Nurse's Notes [facility] Name: Wild Koenig Age: 59 yrs Sex: Male : 1965 Arrival Date: 04/09/2024 Time: 17:19 Bed 7 Private MD: Diagnosis: Cellulitis left foot;Sepsis Presentation: 04/09 17:27 Chief complaint: EMS states: toned out to [facility] for left foot infection. ld1 Coronavirus screen: At this time, the client does not indicate any symptoms associated with coronavirus-19. Ebola Screen: No symptoms or risks identified at this time. Risk Assessment: Do you want to hurt yourself or someone else? Patient reports no desire to harm self or others. Onset of symptoms was April 09, 2024. 17:27 Method Of Arrival: [facility]: [facility] ld1 17:27 Acuity: MYNOR 3 ld1 Triage Assessment: 17:27 General: Appears in no apparent distress. comfortable, Behavior is calm, cooperative, ld1 appropriate for age. Pain: Denies pain. EENT: No signs and/or symptoms were reported regarding the EENT system. Neuro: Level of Consciousness is awake, alert, obeys commands, Oriented to person, place, time, situation. Cardiovascular: Capillary refill < 3 seconds Patient's skin is warm and dry. Respiratory: Airway is patent Respiratory effort is even, unlabored. GI: Abdomen is round non-distended. : No signs and/or symptoms were reported regarding the genitourinary system. Derm: No signs and/or symptoms reported regarding the dermatologic system. Musculoskeletal: No signs and/or symptoms reported regarding the musculoskeletal system. Injury Description:. Historical: - Allergies: 17:27 No Known Allergies; ld1 - PMHx: 17:27 Anxiety; chronic back pain; Congestive heart failure; Depression; Diabetes - IDDM; ld1 Dialysis (right upper arm fis); Hypertension; - PSHx: 17:27 right upper arm fistula; ld1 - Immunization history:: Adult Immunizations up to date. - Infectious Disease History:: Denies. - Social history:: Smoking status: unknown. Screenin:28 [facility] [place] ED Fall Risk Assessment (Adult) History of falling in the last 3 months, ld1 including since admission No falls in past 3 months (0 pts) Confusion or Disorientation No (0 pts) Intoxicated or Sedated No (0 pts) Impaired Gait No (0 pts) Mobility Assist Device Used No (0 pt) Altered Elimination No (0 pt) Score/Fall Risk Level 0 - 2 = Low Risk Oriented to surroundings, Maintained a safe environment, Educated pt \T\ family on fall prevention, incl call for assistance when getting out of bed, Assessed \T\ reinforced patient's understanding of fall precautions, Provided non-skid footwear, Hourly rounding (assess needs \T\ fall precautionary measures) done, Used ambulatory aids as needed (educated on \T\ assisted with), Used gait belt as appropriate. Abuse screen: Denies threats or abuse. Denies injuries from another. Nutritional screening: No deficits noted. Tuberculosis screening: No symptoms or risk factors identified. Assessment: 17:28 Reassessment: See triage assessment. ld1 22:00 Reassessment: Patient appears in no apparent distress at this time. Patient and/or jb4 family updated on plan of care and expected duration. Pain level reassessed. Patient is alert, oriented x 3, equal unlabored respirations, skin warm/dry/pink. report received from MARISABEL Paige. 04/10 01:58 Reassessment: Assumed care of pt. Pt ready for admission. Attempted to inform 2nd floor j7 we were bringing pt up. No answer when called. Vital Signs: 04/09 17:39 Pulse 90; Resp 18; Pulse Ox 91% on R/A; ld1 17:44 BP 141 / 52; Pulse 89; ld1 17:46 Temp 100.2(O); Weight 137.44 kg; ld1 18:57 BP 110 / 60; Pulse 82; Resp 18; Pulse Ox 91% on R/A; ld1 22:41 Pulse 69; Resp 16; Pulse Ox 94% on R/A; jb4 04/10 00:30 BP 119 / 60; Pulse 58; Resp 16; Pulse Ox 94% on R/A; jb4 02:00 BP 92 / 69; Pulse 59; Resp 17; Pulse Ox 96% ; jj7 ED Course: 04/09 17:26 Patient arrived in ED. ld1 17:27 Triage completed. ld1 17:27 Arm band placed on right wrist. ld1 17:28 Patient has correct armband on for positive identification. Placed in gown. Bed in low ld1 position. Call light in reach. Side rails up X2. radiation monitor on. Pulse ox on. NIBP on. Door closed. Noise minimized. Warm blanket given. 17:28 No provider procedures requiring assistance completed. ld1 17:29 Serina Conway MD is Attending Physician. gb1 19:43 Foot Left 3 View XRAY In Process Unspecified. EDMS 19:43 Chest Single View XRAY In Process Unspecified. EDMS 20:05 Attending Physician role handed off by Serina Conway MD rt 20:05 Romie Montanez MD is Attending Physician. rt 20:23 Inserted saline lock: 20 gauge in left upper arm, using aseptic technique. Blood jj7 collected. Flushed with 10 mL NS. 21:42 Flu Sent. jj7 21:42 SARS RAPID Sent. jj7 23:15 Magdaleno Martinez MD is Hospitalizing Provider. rt 04/10 02:01 Patient admitted, IV remains in place. jj7 Administered Medications: 04/09 20:25 Drug: Acetaminophen PO 1000 mg PO once Route: PO; rg5 04/10 02:03 Follow up: Response: Marked relief of symptoms jj7 04/09 20:30 Drug: NS 0.9% IV (30 ml/kg) 30 ml/kg IV at bolus once; Sepsis Protocol; to be given as rg5 a bolus over 90 minutes Route: IV; Rate: bolus; Site: left upper arm; 04/10 02:03 Follow up: IV Status: Completed infusion jj7 04/09 20:35 Drug: vancoMYCIN IVPB 2 grams IVPB at calculated rate once Route: IVPB; Rate: rg5 calculated rate; Site: left [place] arm; 04/10 02:03 Follow up: IV Status: Completed infusion jj7 Medication: 02:01 VIS not applicable for this client. jj7 Outcome: 04/09 23:15 Decision to Hospitalize by Provider. rt 04/10 01:59 Admitted to Med/surg accompanied by tech, room 224, Report called to [facility]AR FAXED TO [facility] FLOOR BY CONNIE PEITT Condition: good 02:31 Patient left the ED. j Signatures: Dispatcher [employer] EDMS Neo Ibrahim RN RN jb4 Alejandra Nguyen RN RN ld1 Frannie Ambriz RN RN jj7 Romie Montanez MD MD rt ManSerina MD MD gb1 Dalton Elaine RN RN rg5 Corrections: (The following items were deleted from the chart) 02:02 01:58 Reassessment: Attempted to inform 2nd floor we were bringing pt up. No answer jj7 when called jj7
--- NOTE | 2024-04-10 00:21 | P.HP ---
Certification for Inpatient Patient admitted to: Inpatient With expected LOS: >2 Midnights Practitioner: I am a practitioner with admitting privileges, knowledge of patient current condition, hospital course, and medical plan of care. Services: Services provided to patient in accordance with Admission requirements found in Title 42 Section 412.3 of the Code of Federal Regulations Patient History Date of Service: 04/10/24 Reason for admission: left foot pain redness History of Present Illness: 59-year-old male with history of diabetes, hypertension, CHF, end-stage renal disease on dialysis Tuesday, chronic back pain presents with left foot infection. He was admitted January 2024 for foot infection. He has had previous left heel debridement by Dr. Quintero Previous visitWound cultures bottle positive for Pseudomonas, Citrobacter Freunii complex, treated with IV cefepime, will discharge home on gentamicin during hemodialysis He reports 3-day history of progressive foot pain swelling and redness and feeling febrile. He does report having chronic left foot wound Allergies No Known Allergies Allergy (Verified 01/15/24 21:51) Home Medications: Gabapentin 300 mg PO DAILY 11/15/19 Insulin Detemir [Levemir Flextouch] 33 units SQ BID 11/15/19 Calcitrol [Rocaltrol*] 0.5 mcg PO DAILY #60 cap 11/19/19 carvediloL [Coreg*] 25 mg PO BID #60 tab 11/19/19 Aspirin [Vazalore] 1 tab PO DAILY 12/25/20 Atorvastatin Calcium 1 tab PO BEDTIME 12/25/20 Trazodone [Desyrel*] 100 mg PO BEDTIME 12/25/20 Bupropion HCl [Budeprion Xl] 300 mg PO DAILY 11/17/23 Docusate [Colace Cap*] 100 mg PO DAILY 11/17/23 Ferrous Gluconate 324 mg PO BID 11/17/23 Mecobalamin [B12 Active] 1,000 mcg PO DAILY 11/17/23 Epoetin [Procrit*] 10,000 unit IV EVERY HD vial 11/22/23 Losartan Potassium [Cozaar*] 50 mg PO BEDTIME #30 tab 11/22/23 Cyclobenzaprine [Flexeril*] 10 mg PO DAILY PRN 01/16/24 Sevelamer Carbonate [Renvela*] 800 mg PO TIDWM 01/16/24 Hydrocodone 10/APAP 325 [[place] *] 1 tab PO Q8HP PRN #20 tab 01/19/24 - Past Medical/Surgical History Diabetic: Yes -: Chronic Back Pain -: Hypertension -: Diabetes mellitus type 2 insulin dependent -: Depression Anxiety -: Anxiety -: ESRD on HD (Dr. Russo/Lio) -: Chronic diastolic congestive heart failure -: Morbid obesity -: legally blind left eye -: eye surgery -: Dialysis catheter insertion right anterior chest wall Psychosocial/ Personal History: Patient lives with aunt - Family History Father -: Heart disease, Diabetes Mother -: Heart disease, Diabetes - Social History Alcohol use: Yes CD- Drugs: Yes Caffeine use: Yes Review of Systems 10-point ROS is otherwise unremarkable General: Fever Musculoskeletal: Foot Pain Physical Examination - Physical Exam General: Oriented x3, Obese HEENT: Atraumatic, Normocephalic Respiratory: Clear to auscultation bilaterally, Normal air movement Cardiovascular: Regular rate/rhythm Gastrointestinal: Normal bowel sounds, Non-distended Musculoskeletal: Other (venous stasis, left DP pulse palpable, erythema dorsal , with left lateral foot /heal ulcer ) Neurological: Normal strength at 5/5 x4 extr - Studies Laboratory Data (last 24 hrs) 04/09/24 04/09/24 04/09/24 20:20 20:20 20:20 WBC 16.60 H Hgb 9.7 L Hct 29.4 L Plt Count 277 PT 14.9 H INR 1.34 APTT 29.9 Sodium 133 L Potassium 4.6 BUN 74 H Creatinine 12.60 H Glucose 77 Total Bilirubin 0.8 AST 25 ALT 29 Alkaline Phosphatase 229 H Microbiology Data (last 24 hrs): 04/09/24 21:30 Nasopharnyx Influenza Type A Antigen Screen - Final 04/09/24 21:30 Nasopharnyx Influenza Type B Antigen Screen - Final Assessment and Plan - Problems (Diagnosis) (1) Chronic anemia Current Visit: No Status: Acute (2) Chronic kidney disease, stage 5 Current Visit: No Status: Acute (3) Diabetic foot ulcer Current Visit: No Status: Acute (4) Diabetes Current Visit: No Status: Chronic Qualifiers: - Plan Diabetic foot ulcer with cellulitis w/ history of necrotic tissue-status post debridement --admit to med surg --IV vanc given in ED --consult pharmacy, followup cultures ESRD with hyperkalemia treated with hemodialysis MWF --missed HD today, will need renal consult in AM Anemia of chronic disease --monitor, transfuse for Hg Sleep obstructive sleep apnea, --CPAP Hypertension --resume home antihypertensive Coreg, losartan when med rec completed Hyperlipidemia --continue statin when med rec completed Obesity Diabetes --fsbs, ssi Code:full DVT:heparin pharmacy: [facility] - Advance Directives Does patient have a Living Will: No Does patient have a Durable POA for Healthcare: No
[2024-04-10] MEDS ORDERED: ACETAMINOPHEN 500 MG TAB PO PRN (00:24)
[2024-04-10] MEDS ORDERED: D10W 125 ML IV PRN (00:25)
[2024-04-10] MEDS ORDERED: GLUCAGON 1 MG/VIAL IM PRN (00:25)
[2024-04-10] MEDS ORDERED: VANCOMYCIN 1 GM in NA CHLORIDE 0.9% 250 ML IVPB SCH (01:00)
[2024-04-10] MEDS: HEPARIN 5000 UNIT/ML 1 ML VIAL SQ SCH (01:00)
[2024-04-10] MEDS: MORPHINE 2 MG/ML SYR IV PRN (03:05)
[2024-04-10] MEDS: INSULIN REGULAR (HUMAN) 100 UNIT/ML SQ SCH (07:30)
[2024-04-10] MEDS: CEFTRIAXONE 2,000 MG in NA CHLORIDE 0.9% 100 ML IV SCH (08:33)
--- NOTE | 2024-04-10 13:18 | P.CNS ---
Date of Consult: 04/10/24 Patient seen for left foot ulceration and infection with cellulitis 59-year-old male with history of diabetes, hypertension, CHF, end-stage renal disease on dialysis Tuesday, chronic back pain presents with left foot infection. He was admitted January 2024 for foot infection. He has had previous left heel debridement by Dr. Quintero Previous visitWound cultures bottle positive for Pseudomonas, Citrobacter Freunii complex, treated with IV cefepime, will discharge home on gentamicin during hemodialysis He reports 3-day history of progressive foot pain swelling and redness and feeling febrile. He does report having chronic left foot wound - Past Medical/Surgical History Diabetic: Yes -: Chronic Back Pain -: Hypertension -: Diabetes mellitus type 2 insulin dependent -: Depression Anxiety -: Anxiety -: ESRD on HD (Dr. Russo/Lio) -: Chronic diastolic congestive heart failure -: Morbid obesity -: legally blind left eye -: eye surgery -: Dialysis catheter insertion right anterior chest wall Psychosocial/ Personal History: Patient lives with aunt - Family History Father -: Heart disease, Diabetes Mother -: Heart disease, Diabetes - Social History Alcohol use: Yes CD- Drugs: Yes Caffeine use: Yes Acetaminophen (Acetaminophen 500 Mg Tab) 500 mg PO Q4HP PRN PRN Reason: Pain scale 2-4 (Mild) Collagenase (Collagenase 30 Gm Ointment) 1 appl TOP DAILY MARGARET Glucagon (Glucagon 1 Mg/Vial) 1 mg IM 1X PRN PRN Reason: HYPOGLYCEMIA Heparin Sodium (Porcine) (Heparin 5000 Unit/Ml 1 Ml Vial) 5,000 unit SQ Q8HR MARGARET Last Admin: 04/10/24 08:33 Dose: 5,000 unit Dextrose (Dextrose 10% Water Iv Soln.) 125 mls @ 0 mls/hr IV PRN PRN; Protocol PRN Reason: HYPOGLYCEMIA Vancomycin HCl 1 gm/ Sodium (Chloride) 250 mls @ 250 mls/hr IVPB AFTER EACH DIALYSIS [facility]; Protocol Ceftriaxone Sodium 2,000 mg/ (Sodium Chloride) 100 mls @ 200 mls/hr IV DAILY MARGARET; Protocol Last Admin: 04/10/24 08:33 Dose: 100 mls Insulin Human Regular (Insulin Regular (Human) 100 Unit/Ml) 0 unit SQ ACHS MARGARET; Protocol Last Admin: 04/10/24 07:30 Dose: Not Given Morphine Sulfate (Morphine 2 Mg/Ml Syr) 2 mg IV Q4H PRN PRN Reason: Pain scale 5-7 (Moderate) Last Admin: 04/10/24 03:05 Dose: 2 mg Allergy/AdvReac Type Severity Reaction Status Date / Time No Known Allergies Allergy Verified 01/15/24 21:51 Review of Systems 10-point ROS is otherwise unremarkable Physical exam: Patient lying in bed not in any acute cardiopulmonary distress Temp Pulse Resp BP Pulse Ox 98.1 F 79 12 160/67 H 94 04/10/24 08:00 04/10/24 08:00 04/10/24 08:00 04/10/24 08:00 04/10/24 08:00 HEENT: Atraumatic, Normocephalic Respiratory: Clear to auscultation bilaterally, Normal air movement Cardiovascular: Regular rate/rhythm Gastrointestinal: Normal bowel sounds, Non-distended Musculoskeletal: Other (venous stasis, left DP pulse palpable, erythema dorsal , with left lateral foot /heal ulcer ) foul odor and erythematous and increased warmth Neurological: Normal strength at 5/5 x4 extr Laboratory Last Values WBC 16.60 thou/uL (4.3-10.9) H 04/09/24 20:20 RBC 3.11 M/uL (4.33-5.43) L 04/09/24 20:20 Hgb 9.7 g/dL (13.6-17.9) L 04/09/24 20:20 Hct 29.4 % (39.6-49.0) L 04/09/24 20:20 MCV 94.5 fL (80-100) 04/09/24 20:20 MCH 31.1 pg (27.0-35.0) 04/09/24 20:20 MCHC 32.9 g/dL (32.0-36.0) 04/09/24 20:20 RDW 15.4 % (12.1-15.2) H 04/09/24 20:20 Plt Count 277 thou/uL (152-406) 04/09/24 20:20 MPV 7.6 fL (7.6-11.3) 04/09/24 20:20 Neutrophils % 89.2 % (41.7-73.7) H 04/09/24 20:20 Lymphocytes % 3.4 % (15.3-44.8) L 04/09/24 20:20 Monocytes % 7.0 % (3.3-12.3) 04/09/24 20:20 Eosinophils % 0.1 % (0-4.4) 04/09/24 20:20 Basophils % 0.3 % (0-1.3) 04/09/24 20:20 Absolute Neutrophils 14.8 K/uL (1.8-8.0) H 04/09/24 20:20 Absolute Lymphocytes 0.6 K/uL (0.7-4.9) L 04/09/24 20:20 Absolute Monocytes 1.2 K/uL (0.1-1.3) 04/09/24 20:20 Absolute Eosinophils 0.0 K/uL (0-0.5) 04/09/24 20:20 Absolute Basophils 0.0 K/uL (0-0.5) 04/09/24 20:20 Platelet Estimate Adeq 04/09/24 20:20 Morphology Comment Not seen (NOT SEEN) 04/09/24 20:20 PT 14.9 SECONDS (9.4-12.5) H 04/09/24 20:20 INR 1.34 04/09/24 20:20 APTT 29.9 SECONDS (24.3-36.9) 04/09/24 20:20 Sodium 133 mEq/L (136-145) L 04/09/24 20:20 Potassium 4.6 mEq/L (3.5-5.1) 04/09/24 20:20 Chloride 98 mEq/L (98-107) 04/09/24 20:20 Carbon Dioxide 26 mEq/L (21-32) 04/09/24 20:20 Anion Gap 13.6 mEq/L (5.0-15.0) 04/09/24 20:20 BUN 74 mg/dL (7-18) H 04/09/24 20:20 Creatinine 12.60 mg/dL (0.70-1.30) H 04/09/24 20:20 Est GFR (CKD-EPI) 4 ml/min (=/>90) L 04/09/24 20:20 Glucose 77 mg/dL (74-106) 04/09/24 20:20 Lactic Acid 0.8 mmol/L (0.4-2.0) 04/09/24 20:25 Calcium 8.7 mg/dL (8.5-10.1) 04/09/24 20:20 Total Bilirubin 0.8 mg/dL (0.2-1.0) 04/09/24 20:20 AST 25 U/L (15-37) 04/09/24 20:20 ALT 29 U/L (16-61) 04/09/24 20:20 Alkaline Phosphatase 229 U/L (45-117) H 04/09/24 20:20 Serum Total Protein 7.3 g/dL (6.4-8.2) 04/09/24 20:20 Albumin 2.5 g/dL (3.4-5.0) L 04/09/24 20:20 Globulin 4.8 g/dL (2.3-3.5) H 04/09/24 20:20 Albumin/Globulin Ratio 0.5 (1.1-1.8) L 04/09/24 20:20 Beta-Hydroxybutyrate/Acetoacetate 0.29 mmol/L (0.02-0.27) H 04/09/24 20:20 SARS-CoV-2 Ag (Rapid) Negative (Negative) 04/09/24 21:30 Smear Scan Ok (OK) 04/09/24 20:20 04/09/24 21:30 Nasopharnyx Influenza Type A Antigen Screen - Final 04/09/24 21:30 Nasopharnyx Influenza Type B Antigen Screen - Final Assessment and plan: Ulceration to the foot and heel area most likely secondary to compromise in circulation and diabetes mellitus and neuropathy Diabetes mellitus End-stage renal disease Leukocytosis Anemia of chronic disease Moderate protein calorie malnourishment Consider getting MRI to rule out osteomyelitis Monitor signs of infection with WBC and fever trends Consider applying Silvadene or Betadine to the wound side Thank you for consult
--- NOTE | 2024-04-10 16:33 | P.PN ---
Date of Service: 04/10/24 Patient seen and examined. Patient has no new complain. Patient has a new blister formation on the lateral edge of left foot. Patient has significant leukocytes. Noted borderline hypoglycemia this morning. Plan: Accu-Cheks and insulin sliding scale. Hypoglycemia Continue IV vancomycin and cefepime Infectious disease input appreciated. Obtain MRI of the left foot to rule out osteomyelitis. Prior history of dermal grafting of the wound of left foot General surgery Dr. Quintero have evaluated patient" underwent debridement and I&D as needed.
[2024-04-10 18:18] LABS: Hepatitis B Core IgM Nonreactive (Nonreactive); Hepatitis B surface AG Interp. Nonreactive (Nonreactive); Hepatitis C Virus Ab Nonreactive (Nonreactive)
[2024-04-10 18:19] LABS: HBsAG Nonreactive Report Report
[2024-04-10] MEDS ORDERED: MANNITOL 25% 12.5 GM/50 ML VIAL IV PRN (20:36)
[2024-04-10] MEDS ORDERED: NA CHLORIDE 0.9% 1,000 ML IV PRN (20:36)
--- NOTE | 2024-04-10 20:53 | P.CNS ---
Date of Consult: 04/10/24 Reason for Consult: ESRD Requesting Physician: nelly drummond Chief Complaint: left foot pain redness History of Present Illness: 59-year-old male with history of diabetes, hypertension, CHF, end-stage renal disease on dialysis Tuesday, chronic back pain presents with left foot infection. He was admitted January 2024 for foot infection. He has had previous left heel debridement by Dr. Quintero Previous visitWound cultures bottle positive for Pseudomonas, Citrobacter Freunii complex, treated with IV cefepime, will discharge home on gentamicin during hemodialysis He reports 3-day history of progressive foot pain swelling and redness and feeling febrile. He does report having chronic left foot wound [id number] 18:59 This 59 yrs old Male presents to ER via EMS with complaints of Foot Injury. gb1 18:59 Mr. Koenig is a 59-year-old male with a wound on his left heel that his home 1 health nurse was concerned about is infected. He has history of insulin- dependent diabetes, CHF, anxiety, depression, ESRD on dialysis and chronic back pain. He denies any fever or chills but states that his blood sugars have been up and down lately. He denies any nausea vomiting or diarrhea.. Allergies No Known Allergies Allergy (Verified 01/15/24 21:51) Home medications list reviewed: Yes Home Medications: Gabapentin 300 mg PO DAILY 11/15/19 Insulin Detemir [Levemir Flextouch] 33 units SQ BID 11/15/19 Calcitrol [Rocaltrol*] 0.5 mcg PO DAILY #60 cap 11/19/19 carvediloL [Coreg*] 25 mg PO BID #60 tab 11/19/19 Aspirin [Vazalore] 1 tab PO DAILY 12/25/20 Atorvastatin Calcium 1 tab PO BEDTIME 12/25/20 Trazodone [Desyrel*] 100 mg PO BEDTIME 12/25/20 Bupropion HCl [Budeprion Xl] 300 mg PO DAILY 11/17/23 Ferrous Gluconate 324 mg PO BID 11/17/23 Mecobalamin [B12 Active] 1,000 mcg PO DAILY 11/17/23 Epoetin [Procrit*] 10,000 unit IV EVERY HD vial 11/22/23 Losartan Potassium [Cozaar*] 50 mg PO BEDTIME #30 tab 11/22/23 Cyclobenzaprine [Flexeril*] 10 mg PO DAILY PRN 01/16/24 Sevelamer Carbonate [Renvela*] 800 mg PO TIDWM 01/16/24 Hydrocodone 10/APAP 325 [[place] [address]*] 1 tab PO Q8HP PRN #20 tab 01/19/24 - Past Medical/Surgical History Diabetic: Yes -: Chronic Back Pain -: Hypertension -: Diabetes mellitus type 2 insulin dependent -: Depression Anxiety -: Anxiety -: ESRD on HD (Dr. Russo/Lio) -: Chronic diastolic congestive heart failure -: Morbid obesity -: legally blind left eye -: eye surgery -: Dialysis catheter insertion right anterior chest wall Psychosocial/ Personal History: Patient lives with aunt - Family History Father Medical History: Heart disease, Diabetes Mother Medical History: Heart disease, Diabetes - Social History Smoking Status: Unknown if ever smoked Alcohol use: No CD- Drugs: No Caffeine use: No Place of Residence: Home Review of Systems 10-point ROS is otherwise unremarkable Physical Examination Temp Pulse Resp BP Pulse Ox 99.1 F 98 H 12 159/72 H 90 L 04/10/24 16:00 04/10/24 16:00 04/10/24 16:00 04/10/24 16:00 04/10/24 16:00 General: In no apparent distress, Oriented x3, Cooperative HEENT: Atraumatic Neck: Supple Respiratory: Normal air movement Cardiovascular: Regular rate/rhythm, Edema Gastrointestinal: Soft and benign, Non-distended Musculoskeletal: No clubbing, No contractures Integumentary: No rashes, No cyanosis, Diabetic ulcer Neurological: Normal speech Laboratory Data (last 24 hrs) 04/09/24 04/09/24 20:20 20:20 WBC 16.60 H Hgb 9.7 L Hct 29.4 L Plt Count 277 Sodium 133 L Potassium 4.6 BUN 74 H Creatinine 12.60 H Glucose 77 Total Bilirubin 0.8 AST 25 ALT 29 Alkaline Phosphatase 229 H Imagings Data: [id number] Procedure: Chest Single View HISTORY: Cough COMPARISON: 2021 FINDINGS: The lungs appear clear of acute infiltrate. No significant pleural effusion noted. The heart is mildly enlarged.. IMPRESSION: No acute abnormality is displayed. [id number] Exam:Foot Left 3 View CLINICAL HISTORY: Left foot pain FINDINGS: No fracture or dislocation seen Soft tissue swelling. No bony destructive lesion seen. Vascular calcifications. Large calcaneal spur Conclusions/Impression: ESRD on HD Hyponatremia -HD TIW HTN with CKD/ CHF -Restart Coreg Diastolic CHF, chronic -Low sodium diet -UF with HD DM II with CKD & Polyneuropathy -RISS DM II with Foot Ulcer -Continue Abx -ID following -Wound care as ordered Hypoalbuminemia -Start Nepro Anemia in CKD -Retacrit qHD CKD MBD -Start Ergo -Start Calcitriol -Start Renvela Case reviewed with Dr. Drummond Thank you kindly for the consultation
[2024-04-10] MEDS ORDERED: ALBUMIN HUMAN 25% 50 ML IV SCH (21:00)
[2024-04-10] MEDS: DOCUSATE NA 100 MG CAP PO SCH (21:19)
[2024-04-10] MEDS: NEPRO SHAKE 237 ML CAN PO SCH (21:19)
[2024-04-11] MEDS: carvediloL 12.5 MG TAB PO SCH (04:58)
[2024-04-11 05:22] LABS: Absolute Basophils 0.1 K/uL (0-0.5); Absolute Eosinophils 0.1 K/uL (0-0.5); Absolute Lymphocytes (CBC) 0.6 K/uL (0.7-4.9); Absolute Monocytes 1.2 K/uL (0.1-1.3); Absolute Neutrophil 12.3 K/uL (1.8-8.0); Basophils % 0.4 % (0-1.3); Eosinophils % 0.6 % (0-4.4); Hematocrit 26.7 % (39.6-49.0); Hemoglobin 8.9 g/dL (13.6-17.9); Lymphocytes % 4.1 % (15.3-44.8); MCH 31.4 pg (27.0-35.0); MCHC 33.2 g/dL (32.0-36.0); MCV 94.4 fL (80-100); MPV 7.9 fL (7.6-11.3); Monocytes % 8.3 % (3.3-12.3); Platelets 274 thou/uL (152-406); RBC Red Blood Cell Count 2.83 M/uL (4.33-5.43); Red Cell Distribution Width 15.6 % (12.1-15.2)
[2024-04-11 05:26] LABS: Neutrophils % 86.6 % (41.7-73.7)
[2024-04-11 05:54] LABS: Albumin 2.2 g/dL (3.4-5.0); Albumin/Globulin Ratio 0.5 (1.1-1.8); Anion Gap 16.6 mEq/L (5.0-15.0); Bilirubin Total 0.7 mg/dL (0.2-1.0); Globulin 4.4 g/dL (2.3-3.5); Potassium 4.6 mEq/L (3.5-5.1); Protein, Total 6.6 g/dL (6.4-8.2)
[2024-04-11 06:34] LABS: Specific Gravity 1.018 (1.005-1.030); Sqamous Epithelial <5 /HPF (None Seen); Urine Bacteria <20 /HPF (<20); Urine Bilirubin NEGATIVE (Negative); Urine Blood 2+ (Negative); Urine Clarity Extremely Turbid (Clear); Urine Color Yellow (Yellow); Urine Crystals Unidentified Few /HPF (None Seen); Urine Culture Reflex Order REFLEXED; Urine Glucose 2+ (Negative); Urine Ketones NEGATIVE (Negative); Urine Microscopic Reflex YN ORDER UMIC; Urine Mucus Slight /HPF (None Seen); Urine Nitrite NEGATIVE (Negative); Urine Protein 3+ (Negative); Urine RBC >50 /HPF (None Seen); Urine Urobilinogen Normal (Normal); Urine WBC >50 /HPF (<5); Urine WBC Clump Occasional /HPF (None Seen); Urine Yeast (Budding) Few /HPF (None Seen)
[2024-04-11] MEDS: SEVELAMER CARBONATE 800 MG TABLET PO SCH (08:00)
[2024-04-11] MEDS: CEFEPIME 1 GM in NA CHLORIDE 0.9% 100 ML IV SCH (09:00)
[2024-04-11] MEDS: COLLAGENASE 30 GM OINTMENT TOP SCH (09:00)
[2024-04-11] MEDS: MULTIVITAMINS,THERAPEUT 1 TAB PO SCH (09:00)
[2024-04-11] MEDS: DRISDOL (VITAMIN D=ERGOCALCIFEROL) 50000 UNIT CAP PO SCH (09:00)
[2024-04-11] MEDS: CALCITROL 0.25 MCG CAP PO SCH (09:00)
[2024-04-11] MEDS: EPOETIN ALFA 10,000 UNIT/ML VIAL IV SCH (13:15)
--- NOTE | 2024-04-11 14:10 | PN ---
Subjective: The patient lying in bed, being dialyzed. Denies any other problems. Objective: Vital Signs: Temperature 98, pulse 84, respirations 22, blood pressure 167/68. Lungs: Basal crackles. Heart: S1, S2. Regular. Abdomen: Soft, nontender. Bowel sounds present. Extremities: Left leg with erythematous changes a nd increased warmth and 2+ edema. Laboratory Data: Shows WBC 14.2, hemoglobin 8.9, platelets 274. Chemistry shows BUN of 87, creatini ne 14.3, albumin level is 2.2. Micro data: Blood cultures, no growth for 24 hours. Blood cultures; gram-negative rods. Sensitivity and specificity pending. The patient is currently being treated wi th IV cefepime and vancomycin. Assessment And Plan: Bacteremia secondary to gram-negative rods, end-stage renal disease, peripheral vascular disease, diabetes mellitus. MRI pending to rule out osteomyelitis. We will follow the pat ient closely. NF/MODL Voice ID: [id number] Report ID: [id number]
[2024-04-11] MEDS: VANCOMYCIN 1 GM in NA CHLORIDE 0.9% 250 ML IVPB SCH (14:53)
[2024-04-11] MEDS: ACETAMINOPHEN 500 MG TAB PO PRN (16:23)
--- NOTE | 2024-04-11 18:52 | P.PN ---
Subjective Date of Service: 04/11/24 Chief Complaint: left foot pain redness Patient has been experiencing intermittent fever. He reports loss of appetite. He underwent hemodialysis today. Physical Examination - Vital Signs Temperature: 100.2 F Blood Pressure: 132/51 Pulse: 96 Respirations: 24 Pulse Ox (%): 90 Assessment And Plan - Plan Physical examination General: Alert and oriented x3, NAD. HEENT: Conjunctiva not pale, anicteric sclera Neck: Supple, no elevated JVD Heart: Heart sounds 1 and 2 normal, regular rhythm, normal rate, no pedal edema Lungs: Clear to auscultation bilaterally, adequate breath sounds bilaterally, no rhonchi or crackles. Abdomen: Soft, obese, nondistended, nontender, normal bowel sounds. Extremities: No tenderness, no deformity Skin: Normal skin turgor, blister-lateral edge of the left foot, chronic nonhealing ulcer -left heel and sole of midfoot Neuro: No focal motor deficit. Normal speech. Psychiatry: Normal mood, no agitation. Diagnosis Sepsis Infected left left foot diabetic ulcer Patient with intermittent fever. Continue IV vancomycin Change IV cefepime to meropenem. General surgery Dr. Quintero have consulted and he is planning sharp knife debridement. Obtain deep tissue wound culture Infectious disease Dr. Godfrey consulted Dr. Godfrey input appreciated. MRI of the left foot requested to assess for osteomyelitis. Blood cultures shows no growth to date. Follow cultures. ESRD on hemodialysis Nephrology input appreciated. Patient underwent hemodialysis today. Routine hemodialysis per nephrology. Anemia of chronic kidney disease Monitor CBC Transfuse for hemoglobin less than 7. Sleep obstructive sleep apnea, CPAP during sleep Hypertension Continue current Diabetes mellitus type 2 Patient had an episode of hypoglycemia. Blood sugar management with insulin sliding scale. Hold long-acting insulin for now. Morbid obesity Weight loss by diet and exercise recommended. DVT prophylaxis: Heparin SQ. Advanced directive: Full code.
--- NOTE | 2024-04-11 20:02 | RAD REPORT ---
EXAM: MRI of the left foot without contrast HISTORY: Evaluate for osteomyelitis. Diabetic wound, r/o osteomyelitis COMPARISON: 04/09/2024 plain radiograph TECHNIQUE: Multiplanar multisequence MR images were obtained of the left foot without contrast. FINDINGS: Abnormal marrow signal is seen in the base of the fifth metatarsal as well as the base of the fourth metatarsal. No focal fluid collection is seen in the soft tissues. The muscles and tendons appear intact. Soft tissue ulceration is seen extending to the skin surface a long the base of the midfoot. IMPRESSION: [id number] osteomyelitis involves the base of the fourth and fifth metatarsal. Please note that evaluation is limited without IV contrast.
--- NOTE | 2024-04-11 21:02 | P.PN ---
Date of Service: 04/11/24 Vital Signs Temp Pulse Resp BP Pulse Ox 97.5 F 72 20 129/57 L 92 04/11/24 20:00 04/11/24 20:00 04/11/24 20:00 04/11/24 20:00 04/11/24 20:00 Medications Acetaminophen (Acetaminophen 500 Mg Tab) 500 mg PO Q4HP PRN PRN Reason: TEMP > 100' F Last Admin: 04/11/24 16:23 Dose: 500 mg Calcitriol (Calcitrol 0.25 Mcg Cap) 0.5 mcg PO DAILY [facility] Last Admin: 04/11/24 09:00 Dose: Not Given Carvedilol (Carvedilol 12.5 Mg Tab) 12.5 mg PO BID 6AM 6PM [facility] Last Admin: 04/11/24 17:32 Dose: 12.5 mg Collagenase (Collagenase 30 Gm Ointment) 1 appl TOP DAILY [facility] Last Admin: 04/11/24 09:00 Dose: Not Given Docusate Sodium (Docusate Na 100 Mg Cap) 100 mg PO BID [facility] Last Admin: 04/11/24 09:00 Dose: Not Given Enteral Nutritional Formula (Nepro Shake 237 Ml Can) 237 ml PO DAILY [facility] Epoetin Pierce (Epoetin Pierce 10,000 Unit/Ml Vial) 10,000 unit IV EVERY HD [facility] Last Admin: 04/11/24 13:15 Dose: 10,000 unit Ergocalciferol (Drisdol (Vitamin D=Ergocalciferol) 53392 Unit Cap) 50,000 unit PO Q7D@0900 [facility] Last Admin: 04/11/24 09:00 Dose: Not Given Glucagon (Glucagon 1 Mg/Vial) 1 mg IM 1X PRN PRN Reason: HYPOGLYCEMIA Heparin Sodium (Porcine) (Heparin 5000 Unit/Ml 1 Ml Vial) 5,000 unit SQ Q8HR [facility] Last Admin: 04/11/24 16:05 Dose: Not Given Heparin Sodium (Porcine) (Heparin 1,000 Unit/Ml Vial) 3,000 unit IV EVERY HD PRN PRN Reason: Prevent HD System Clotting Last Admin: 04/11/24 10:27 Dose: 3,000 unit Dextrose (Dextrose 10% Water Iv Soln.) 125 mls @ 0 mls/hr IV PRN PRN; Protocol PRN Reason: HYPOGLYCEMIA Vancomycin HCl 1 gm/ Sodium (Chloride) 250 mls @ 250 mls/hr IVPB AFTER EACH DIALYSIS [facility]ARG[facility]ET; Protocol Albumin Human (Albumin 25%) 50 mls @ 100 mls/hr IV EVERY HD [facility] Meropenem 1,000 mg/ Sodium (Chloride) 100 mls @ 200 mls/hr IV BEDTIME [facility] Insulin Human Regular (Insulin Regular (Human) 100 Unit/Ml) 0 unit SQ ACHS [facility]ARG[facility]ET; Protocol Last Admin: 04/11/24 16:04 Dose: Not Given Mannitol (Mannitol 25% 12.5 Gm/50 Ml Vial) 12.5 gm IV EVERY HD PRN PRN Reason: Titrate to SBP (MUST DEFINE) Morphine Sulfate (Morphine 2 Mg/Ml Syr) 2 mg IV Q4H PRN PRN Reason: Pain scale 5-7 (Moderate) Last Admin: 04/11/24 14:52 Dose: 2 mg Sevelamer Carbonate (Sevelamer Carbonate 800 Mg Tablet) 800 mg PO TIDWM [facility] Last Admin: 04/11/24 16:24 Dose: 800 mg Vitamin B Complex/Vit C/Folic Acid (Multivitamins,Therapeut 1 Tab) 1 tab PO DAILY [facility] Last Admin: 04/11/24 09:00 Dose: Not Given Lab Results (last 24 hrs) 04/09/24 18:59: Urine Color Cancelled, Urine Clarity Cancelled, Urine pH Cancelled, Ur Specific [place] Cancelled, Glucose (UA)(Auto) Cancelled, Urine Ketones Cancelled, Urine Blood Cancelled, Urine Nitrite Cancelled, Urine Bilirubin Cancelled, Urine Urobilinogen Cancelled, Ur Leukocyte Esterase Cancelled, Urine RBC Cancelled, Urine Red Cell Clumps Cancelled, Urine WBC Cancelled, Urine WBC Clumps Cancelled, Ur Squamous Epith Cells Cancelled, U Non- Squamous Epi Cells Cancelled, Ur Transition Epith Cell Cancelled, Ur Renal Epithelial Cell Cancelled, Calcium Carbonate Cryst Cancelled, Calcium Oxalate Crystal Cancelled, Leucine Crystals Cancelled, Cystine Crystals Cancelled, Uric Acid Crystals Cancelled, Triple Phos Crystals Cancelled, Tyrosine Crystals Cancelled, Unidentified Crystals Cancelled, Amorphous Crystals Cancelled, Urine Bacteria Cancelled, Hyaline Casts Cancelled, Granular Casts Cancelled, Waxy Casts Cancelled, RBC Casts Cancelled, WBC Casts Cancelled, Urine Mucus Cancelle d, Urine Trichomonas Cancelled, Ur Yeast w Hyphae Cancelled, Urine Yeast (Budding) Cancelled, Urine Sperm Cancelled, Ur Oval Fat Bodies Cancelled, Ur Microscopic Review Cancelled, Urine Culture Reflexed Cancelled, Urine Total Protein Cancelled, Urine Ascorbic Acid Cancelled, Urine Fat Cancelled Microbiology Results 04/09/24 20:40 Blood - Blood Aerobic Blood Culture - Preliminary No growth in 24 hours. 04/09/24 20:40 Blood - Blood Anaerobic Blood Culture - Preliminary 04/09/24 20:40 Blood - Blood Gram Stain - Preliminary 04/09/24 20:25 Blood - Blood Aerobic Blood Culture - Preliminary No growth in 24 hours. 04/09/24 20:25 Blood - Blood Anaerobic Blood Culture - Preliminary No growth in 24 hours. 04/09/24 21:30 Nasopharnyx Influenza Type A Antigen Screen - Final 04/09/24 21:30 Nasopharnyx Influenza Type B Antigen Screen - Final Assessment/ Plan: Nephrology No dyspnea No chest pain No acute events overnight Vitals, medications, blood work and imaging reviewed in the chart General: In no apparent distress, Oriented x3, Cooperative HEENT: Atraumatic Neck: Supple Respiratory: Normal air movement Cardiovascular: Regular rate/rhythm, Edema Gastrointestinal: Soft and benign, Non-distended Musculoskeletal: No clubbing, No contractures Integumentary: No rashes, No cyanosis, Diabetic ulcer Neurological: Normal speech Laboratory Data (last 24 hrs) 04/09/24 04/09/24 20:20 20:20 WBC 16.60 H Hgb 9.7 L Hct 29.4 L Plt Count 277 Sodium 133 L Potassium 4.6 BUN 74 H Creatinine 12.60 H Glucose 77 Total Bilirubin 0.8 AST 25 ALT 29 Alkaline Phosphatase 229 H Imagings Data: Procedure: Chest Single View HISTORY: Cough COMPARISON: 2021 FINDINGS: The lungs appear clear of acute infiltrate. No significant pleural effusion noted. The heart is mildly enlarged.. IMPRESSION: No acute abnormality is displayed. Exam:Foot Left 3 View CLINICAL HISTORY: Left foot pain FINDINGS: No fracture or dislocation seen Soft tissue swelling. No bony destructive lesion seen. Vascular calcifications. Large calcaneal spur Conclusions/Impression: ESRD on HD Hyponatremia -HD TIW HTN with CKD/ CHF -Continue Coreg Diastolic CHF, chronic -Low sodium diet -UF with HD DM II with CKD & Polyneuropathy -RISS DM II with Foot Ulcer -Continue Abx -ID following -Wound care as ordered Hypoalbuminemia -Continue Nepro Anemia in CKD -Retacrit qHD CKD MBD -Continue Ergo -Continue Calcitriol -Continue Renvela Case reviewed with Dr. Drummond
[2024-04-11] MEDS: Meropenem 1,000 MG in NA CHLORIDE 0.9% 100 ML IV SCH (21:13)
[2024-04-12 07:41] LABS: Absolute Basophils 0.1 K/uL (0-0.5); Absolute Eosinophils 0.1 K/uL (0-0.5); Absolute Lymphocytes (CBC) 0.6 K/uL (0.7-4.9); Absolute Monocytes 1.3 K/uL (0.1-1.3); Absolute Neutrophil 15.7 K/uL (1.8-8.0); Basophils % 0.5 % (0-1.3); Eosinophils % 0.5 % (0-4.4); Hematocrit 29.9 % (39.6-49.0); Hemoglobin 9.7 g/dL (13.6-17.9); Lymphocytes % 3.6 % (15.3-44.8); MCH 30.8 pg (27.0-35.0); MCHC 32.4 g/dL (32.0-36.0); MCV 94.9 fL (80-100); Neutrophils % 88.4 % (41.7-73.7); Platelets 319 thou/uL (152-406); RBC Red Blood Cell Count 3.15 M/uL (4.33-5.43); Red Cell Distribution Width 15.9 % (12.1-15.2)
[2024-04-12 07:59] LABS: Anion Gap 15.1 mEq/L (5.0-15.0); Potassium 4.1 mEq/L (3.5-5.1)
[2024-04-12] MEDS: NEPRO SHAKE 237 ML CAN PO SCH (08:11)
[2024-04-12 09:03] LABS: Platelet Estimate ADEQ; White Blood Cell Scan OK (OK)
[2024-04-12 09:04] LABS: Blood Morphology Comment NOT SEEN (NOT SEEN)
--- NOTE | 2024-04-12 10:17 | P.PN ---
Date of Service: 04/12/24 Vital Signs Temp Pulse Resp BP Pulse Ox 98.1 F 79 20 144/59 H 95 04/12/24 08:00 04/12/24 08:00 04/12/24 08:38 04/12/24 08:00 04/12/24 08:38 Medications Acetaminophen (Acetaminophen 500 Mg Tab) 500 mg PO Q4HP PRN PRN Reason: TEMP > 100' F Last Admin: 04/11/24 16:23 Dose: 500 mg Calcitriol (Calcitrol 0.25 Mcg Cap) 0.5 mcg PO DAILY [facility] Last Admin: 04/12/24 08:11 Dose: Not Given Carvedilol (Carvedilol 12.5 Mg Tab) 12.5 mg PO BID 6AM 6PM [facility] Last Admin: 04/12/24 05:58 Dose: Not Given Collagenase (Collagenase 30 Gm Ointment) 1 appl TOP DAILY [facility] Last Admin: 04/12/24 08:11 Dose: Not Given Docusate Sodium (Docusate Na 100 Mg Cap) 100 mg PO BID [facility] Last Admin: 04/12/24 08:11 Dose: Not Given Enteral Nutritional Formula (Nepro Shake 237 Ml Can) 237 ml PO DAILY [facility] Last Admin: 04/12/24 08:11 Dose: Not Given Epoetin Pierce (Epoetin Pierce 10,000 Unit/Ml Vial) 10,000 unit IV EVERY HD [facility] Last Admin: 04/11/24 13:15 Dose: 10,000 unit Ergocalciferol (Drisdol (Vitamin D=Ergocalciferol) 09193 Unit Cap) 50,000 unit PO Q7D@0900 [facility] Last Admin: 04/11/24 09:00 Dose: Not Given Glucagon (Glucagon 1 Mg/Vial) 1 mg IM 1X PRN PRN Reason: HYPOGLYCEMIA Heparin Sodium (Porcine) (Heparin 5000 Unit/Ml 1 Ml Vial) 5,000 unit SQ Q8HR [facility] Last Admin: 04/12/24 08:11 Dose: Not Given Heparin Sodium (Porcine) (Heparin 1,000 Unit/Ml Vial) 3,000 unit IV EVERY HD PRN PRN Reason: Prevent HD System Clotting Last Admin: 04/11/24 10:27 Dose: 3,000 unit Dextrose (Dextrose 10% Water Iv Soln.) 125 mls @ 0 mls/hr IV PRN PRN; Protocol PRN Reason: HYPOGLYCEMIA Vancomycin HCl 1 gm/ Sodium (Chloride) 250 mls @ 250 mls/hr IVPB AFTER EACH D IALYSIS [facility]ARGARET; Protocol Albumin Human (Albumin 25%) 50 mls @ 100 mls/hr IV EVERY HD [facility] Meropenem 500 mg/ Sodium (Chloride) 100 mls @ 200 mls/hr IV BEDTIME [facility] Insulin Human Regular (Insulin Regular (Human) 100 Unit/Ml) 0 unit SQ ACHS [facility]ARGARET; Protocol Last Admin: 04/12/24 07:30 Dose: Not Given Mannitol (Mannitol 25% 12.5 Gm/50 Ml Vial) 12.5 gm IV EVERY HD PRN PRN Reason: Titrate to SBP (MUST DEFINE) Morphine Sulfate (Morphine 2 Mg/Ml Syr) 2 mg IV Q4H PRN PRN Reason: Pain scale 5-7 (Moderate) Last Admin: 04/12/24 08:38 Dose: 2 mg Sevelamer Carbonate (Sevelamer Carbonate 800 Mg Tablet) 800 mg PO TIDWM [facility] Last Admin: 04/12/24 08:00 Dose: Not Given Vitamin B Complex/Vit C/Folic Acid (Multivitamins,Therapeut 1 Tab) 1 tab PO DAILY [facility] Last Admin: 04/12/24 08:11 Dose: Not Given Microbiology Results 04/09/24 20:40 Blood - Blood Aerobic Blood Culture - Preliminary No growth in 24 hours. 04/09/24 20:40 Blood - Blood Anaerobic Blood Culture - Preliminary 04/09/24 20:40 Blood - Blood Gram Stain - Final 04/09/24 20:25 Blood - Blood Aerobic Blood Culture - Preliminary No growth in 24 hours. 04/09/24 20:25 Blood - Blood Anaerobic Blood Culture - Preliminary No growth in 24 hours. 04/09/24 21:30 Nasopharnyx Influenza Type A Antigen Screen - Final 04/09/24 21:30 Nasopharnyx Influenza Type B Antigen Screen - Final Assessment/ Plan: Nephrology No dyspnea No chest pain Right neck pain No acute events overnight Vitals, medications, blood work and imaging reviewed in the chart General: In no apparent distress, Oriented x3, Cooperative HEENT: Atraumatic Neck: Supple Respiratory: Normal air movement Cardiovascular: Regular rate/rhythm, Edema Gastrointestinal: Soft and benign, Non-distended Musculoskeletal: No clubbing, No contractures Integumentary: No rashes, No cyanosis, Diabetic ulcer Neurological: Normal speech Laboratory Data (last 24 hrs) 04/09/24 04/09/24 20:20 20:20 WBC 16.60 H Hgb 9.7 L Hct 29.4 L Plt Count 277 Sodium 133 L Potassium 4.6 BUN 74 H Creatinine 12.60 H Glucose 77 Total Bilirubin 0.8 AST 25 ALT 29 Alkaline Phosphatase 229 H Imagings Data: Procedure: Chest Single View HISTORY: Cough COMPARISON: 2021 FINDINGS: The lungs appear clear of acute infiltrate. No significant pleural effusion noted. The heart is mildly enlarged.. IMPRESSION: No acute abnormality is displayed. Exam:Foot Left 3 View CLINICAL HISTORY: Left foot pain FINDINGS: No fracture or dislocation seen Soft tissue swelling. No bony destructive lesion seen. Vascular calcifications. Large calcaneal spur Conclusions/Impression: ESRD on HD Hyponatremia -HD TIW HTN with CKD/ CHF -Continue Coreg Diastolic CHF, chronic -Low sodium diet -UF with HD DM II with CKD & Polyneuropathy -RISS DM II with Foot Ulcer -Continue Abx -ID following -Wound care as ordered -Plan for wound dibridement today Hypoalbuminemia -Continue Nepro Anemia in CKD -Retacrit qHD CKD MBD -Continue Ergo -Continue Calcitriol -Continue Renvela Case reviewed with Dr. Drummond and Dr. Quintero
[2024-04-12] MEDS: NA CHLORIDE 0.9% 500 ML ONE (12:08)
[2024-04-12] MEDS ORDERED: ONDANSETRON 4 MG/2 ML VIAL ONE (14:36)
[2024-04-12] MEDS ORDERED: LIDOCAINE 2% MPF 5 ML VIAL ONE (14:36)
[2024-04-12] MEDS ORDERED: propofoL 200 MG/20 ML VIAL IV ONE (14:36)
[2024-04-12] MEDS ORDERED: MIDAZOLAM HCL 2 MG/2 ML INJ ONE (14:37)
[2024-04-12] MEDS ORDERED: FENTANYL CITR 100 MCG/2 ML ONE (14:37)
[2024-04-12] MEDS ORDERED: EPHEDRINE SULF 50 MG/ML VIAL ONE (15:10)
[2024-04-12] MEDS: LIDOCAINE HCL/EPINEPHRINE 20 ML MDV ONE (15:23)
--- NOTE | 2024-04-12 15:38 | P.OP ---
Preoperative diagnosis: LEFT Foot Diabetic Wounds Postoperative diagnosis: LEFT Foot Diabetic Wounds Primary procedure: Debridement of Diabetic Wounds Secondary procedure: Bone Biopsy Anesthesia: GETA + Local Estimated blood loss: <10cc Specimen: Cultures, bone culture, debridement tissue Findings: 6cm x 3cm lateral LEFT foot wound Complications: None Transferred to: Recovery Room Condition: Good
[2024-04-12] MEDS: HYDROMORPHONE HCL 1 MG/ML INJ ONE (16:13)
--- NOTE | 2024-04-12 16:47 | OP ---
Date of Procedure: 04/12/2024 Surgeon: Keenan Quintero MD, Preoperative Diagnosis: Left foot diabetic wound. Postoperative Diagnosis: Left foot diabetic wound. Procedures Performed: 1.Debridement of multiple left diabetic wounds on the lateral aspect. 2.Bone biopsy. Anesthesia: General endotracheal plus local with 1% lidocaine. Estimated Blood Loss: Less than 10 cc. Specimen: Cultures sent both aerobic and anaerobic speciation. Bone fragment sent for culture and d ebridement of tissue from left lateral foot. Findings: Approximately 6 cm x 3 cm left lateral foot wound, not involving previous heel wound noted . Complications: None. Disposition: Patient transferred to recovery room in good condition. Procedure In Detail: After informed consent was obtained, patient was brought to the operating room, prepped and draped in the usual sterile fashion after adequate anesthesia was achieved. I made an e lliptical incision circumferentially around approximately 6 cm x 3 cm in area of obvious abscess or n ecrotic material made from 2 spots on the left lateral foot down to subcutaneous tissues. Abscess ma terial was encountered. It was both cultured for aerobic and anaerobic speciation and then debrideme nt of tissue sent off for pathologic examination. All nonviable tissue was debrided down to the meta tarsophalangeal joint as well as to the tarsal bone. A portion near the metatarsophalangeal joint wa s taken with a rongeur and sent off for pathologic examination near the metatarsophalangeal joint. A ll nonviable tissue was removed. Hemostasis was achieved with electrocautery. We then used pulse la vage in the area to cleanse the area thoroughly with approximately 2 L of pulse lavage liquid. Ultim ately after this was cleansed, the wound was then packed with Vashe sterile dressing and a wrap was a pplied. The patient tolerated the procedure without incident or complication and transferred to PACU in good condition. All counts were correct at the end of the case. TK/MODL Voice ID: [id number] Report ID: [id number]
--- NOTE | 2024-04-12 17:14 | P.PN ---
Subjective Date of Service: 04/12/24 Chief Complaint: left foot pain redness No fever recorded today He reports feeling better today. Status post left foot ulcer debridement today. Physical Examination - Vital Signs Temperature: 98.5 F Blood Pressure: 171/75 Pulse: 72 Respirations: 18 Pulse Ox (%): 90 - Studies Microbiology Data (last 24 hrs): 04/09/24 20:40 Blood - Blood Gram Stain - Final Assessment And Plan - Plan Physical examination General: Alert and oriented x3, NAD. Neck: No elevated JVD Heart: Heart sounds 1 and 2 normal, regular rhythm, normal rate, no pedal edema Lungs: Clear to auscultation bilaterally, adequate breath sounds bilaterally, no rhonchi or crackles. Abdomen: Soft, obese, nondistended, nontender, normal bowel sounds. Extremities: No tenderness, no deformity Skin: Normal skin turgor, blister-lateral edge of the left foot, chronic nonhealing ulcer -left heel and sole of midfoot Neuro: No focal motor deficit. Psychiatry: Normal mood, no agitation. Diagnosis Sepsis Infected left left foot diabetic ulcer Status post IV cefepime Continue IV vancomycin IV cefepime changed to meropenem. No fever yet after changing to meropenem. MRI of the left foot suggest osteomyelitis of the base of the fourth and fifth metatarsals. Status post debridement and bone biopsy by Dr. Quintero. Wound culture growing Providencia. Infectious disease Dr. Godfrey is following Blood cultures shows no growth to date. Follow deep tissue wound culture and bone tissue culture. Patient will need prolonged antibiotic therapy(6 weeks) to be given during dialysis. Monitor CBC to follow leukocytosis. ESRD on hemodialysis Nephrology Dr. Russo is following Routine hemodialysis per nephrology. Anemia of chronic kidney disease Monitor CBC Transfuse for hemoglobin less than 7. Sleep obstructive sleep apnea, CPAP during sleep Hypertension Continue current medications Diabetes mellitus type 2 Patient had an episode of hypoglycemia. Blood sugar management with insulin sliding scale. Hold long-acting insulin for now. Morbid obesity Weight loss by diet and exercise recommended. DVT prophylaxis: Heparin SQ. Advanced directive: Full code.
[2024-04-12] MEDS: Meropenem 500 MG in NA CHLORIDE 0.9% 100 ML IV SCH (19:55)
[2024-04-12] MEDS: LIDOCAINE 4% PATCH TOP SCH (19:55)
[2024-04-13] MEDS: TRAZODONE 50 MG TABLET PO PRN (01:50)
[2024-04-13 06:10] LABS: Absolute Lymphocytes (CBC) 0.3 K/uL (0.7-4.9); Absolute Monocytes 0.5 K/uL (0.1-1.3); Absolute Neutrophil 15.9 K/uL (1.8-8.0); Basophils % 0.2 % (0-1.3); Hematocrit 30.8 % (39.6-49.0); MCH 31.2 pg (27.0-35.0); MCHC 32.6 g/dL (32.0-36.0); MCV 95.7 fL (80-100); MPV 8.4 fL (7.6-11.3); Monocytes % 3.1 % (3.3-12.3); Neutrophils % 94.7 % (41.7-73.7); Platelets 324 thou/uL (152-406); RBC Red Blood Cell Count 3.22 M/uL (4.33-5.43)
[2024-04-13 06:36] LABS: Anion Gap 15.5 mEq/L (5.0-15.0); Potassium 4.5 mEq/L (3.5-5.1)
--- NOTE | 2024-04-13 11:55 | P.PN ---
Nephrology note (S) Pt seen on HD, tolerating session, BP stable, lethargic but conversive. Denies left foot pain, OP report, culture findings noted, case discussed extensively with Dr. Drummond and pharmacy on correction Abx, other Vitals reviewed in the EMR General: In no apparent distress HEENT: Atraumatic, Normocephalic, Other (vision impairment), not on O2 Neck: Non tender Respiratory: Mostly Clear to auscultation bilaterally, Normal air movement Cardiovascular: Regular rate/rhythm, Edema noted, Lt LE > Rt Gastrointestinal: Soft and benign, Non-distended, No guarding Musculoskeletal: (Rt UE AVF with bruit) Integumentary: Other (Lt foot dressed extensively, see surgical op report and other wound care notes for full details) Neurological: Normal speech, Normal tone, Normal affect Laboratory Data (last 24 hrs) Reviewed in the EMR Conclusions/Impression: A/P) 1. ESRD 2nd to chronic conditions, on iHD MWF. HD today for clearance and UF 2. Azotemia 2nd to renal failure -will clear with HD 3. Chronic HTN with CKD -history of labile BP, no intra dialytic hypotension noted, sepsis on admission. F/u post HD BP 4. Left foot soft tissue infection with necrosis, persistent, DFU (multiple), osteomyelitis, unspecified. Fever, leukocytosis unspecified. Cont Abx as ordered by IM/ID, dose for reduced CrCl, possible Gentamicin with HD as OP on discharge, will review final reccs Would recommend SNF/LTAC for Abx and wound care as pt has failed OP wound care treatment and is likely headed for ultimate Lt BKA but per Dr. Drummond has thus far refused 5. Anemia 2nd to CKD, inflammation, other -monitor closely
--- NOTE | 2024-04-13 17:17 | P.PN ---
Subjective Date of Service: 04/13/24 Chief Complaint: left foot pain redness Patient seen having dialysis No fever recorded today He reports no new complain. Physical Examination - Vital Signs Temperature: 97.4 F Blood Pressure: 160/73 Pulse: 61 Respirations: 16 Pulse Ox (%): 91 - Studies Microbiology Data (last 24 hrs): 04/09/24 20:40 Blood - Blood Anaerobic Blood Culture - Final Proteus Vulgaris 04/09/24 20:40 Blood - Blood Gram Stain - Final Assessment And Plan - Plan Physical examination General: Alert and oriented x3, NAD. Neck: No elevated JVD Heart: Heart sounds 1 and 2 normal, regular rhythm, normal rate, no pedal edema Lungs: Clear to auscultation bilaterally, adequate breath sounds bilaterally, no rhonchi or crackles. Abdomen: Soft, obese, nondistended, nontender, normal bowel sounds. Extremities: No tenderness, no deformity Skin: Normal skin turgor. Neuro: No focal motor deficit. Psychiatry: Normal mood, no agitation. Diagnosis Sepsis Infected left left foot diabetic ulcer Wound culture growing Proteus vulgaris Bone tissue culture also growing gram-negative rods. Status post IV cefepime Continue IV vancomycin IV cefepime changed to meropenem. No fever yet after changing to meropenem. MRI of the left foot suggest osteomyelitis of the base of the fourth and fifth metatarsals. Status post debridement and bone biopsy by Dr. Quintero. Infectious disease Dr. Godfrey is following Blood cultures shows no growth to date. Patient will need prolonged antibiotic therapy(6 weeks) to be given during dialysis. Antibiotics transition to IV gentamicin to be given after dialysis. Patient was deemed appropriate for SNF placement for complex wound care and also to receive antibiotics but patient declined to go to SNF. He will receive wound care by home health and get his antibiotics at the dialysis center. Monitor CBC to follow leukocytosis. ESRD on hemodialysis Nephrology Dr. Russo/Dr. Vaca are following Routine hemodialysis per nephrology. Anemia of chronic kidney disease Monitor CBC Transfuse for hemoglobin less than 7. Sleep obstructive sleep apnea, CPAP during sleep Hypertension Continue current medications Diabetes mellitus type 2 Patient had an episode of hypoglycemia. Patient is now hyperglycemic Blood sugar management with insulin sliding scale. Resume long-acting insulin at half of home dose. Morbid obesity Weight loss by diet and exercise recommended. DVT prophylaxis: Heparin SQ. Advanced directive: Full code.
[2024-04-13] MEDS ORDERED: CYCLOBENZAPRINE 10 MG TAB PO PRN (17:18)
[2024-04-13] MEDS: Gentamicin Inj 240 MG in NA CHLORIDE 0.9% 100 ML IVPB SCH (18:00)
[2024-04-13] MEDS ORDERED: HOME MED 1 EA UNK (Insulin Detemir [Levemir Flextouch] 100 UNIT/ML Insuln.Pen) SQ SCH (21:00)
[2024-04-13] MEDS ORDERED: carvediloL 25 MG TAB PO SCH (21:00)
[2024-04-13] MEDS ORDERED: HOME MED 1 EA UNK (Ferrous Gluconate [Ferrous Gluconate] 324 MG Tablet) PO SCH (21:00)
[2024-04-13] MEDS: ATORVASTATIN 40 MG TAB PO SCH (21:46)
[2024-04-13] MEDS: INSULIN GLARGINE 100 UNIT/ML SQ SCH (21:46)
[2024-04-13] MEDS: FERROUS GLUCONATE 324 MG TAB PO SCH (21:47)
[2024-04-13] MEDS: LOSARTAN POTASSIUM 50 MG TABLET PO SCH (21:47)
[2024-04-13] MEDS: Oxycodone HCl/Acetaminophen 5/325 MG TAB PO PRN (22:49)
[2024-04-14 05:56] LABS: Absolute Basophils 0.1 K/uL (0-0.5); Absolute Lymphocytes (CBC) 1.1 K/uL (0.7-4.9); Absolute Monocytes 1.2 K/uL (0.1-1.3); Absolute Neutrophil 20.7 K/uL (1.8-8.0); Basophils % 0.5 % (0-1.3); Eosinophils % 0.1 % (0-4.4); Hematocrit 34.5 % (39.6-49.0); Lymphocytes % 4.7 % (15.3-44.8); MCH 29.9 pg (27.0-35.0); MCHC 31.8 g/dL (32.0-36.0); MCV 93.8 fL (80-100); MPV 8.6 fL (7.6-11.3); Monocytes % 5.1 % (3.3-12.3); Neutrophils % 89.6 % (41.7-73.7); Platelets 346 thou/uL (152-406); RBC Red Blood Cell Count 3.67 M/uL (4.33-5.43); Red Cell Distribution Width 16.1 % (12.1-15.2)
[2024-04-14 06:38] LABS: Anion Gap 16.5 mEq/L (5.0-15.0); Potassium 4.5 mEq/L (3.5-5.1)
[2024-04-14 08:33] LABS: Band Neutrophils 1 % (0-1); Differential Total Cells Count 100; Lymphocytes 3 % (15-42); Monocytes 5 % (0-10); Segmented Neutrophils 91 % (40-80)
[2024-04-14 08:34] LABS: Blood Morphology Comment NOT SEEN (NOT SEEN); Platelet Estimate ADEQ
[2024-04-14] MEDS: Mecobalamin [B12 Active] 1,000 MCG Tab.Chew *PT OWN MED PO SCH (08:36)
[2024-04-14] MEDS: ASPIRIN EC 81 MG TAB PO SCH (08:55)
[2024-04-14] MEDS: SEVELAMER CARBONATE 800 MG TABLET PO SCH (08:55)
[2024-04-14] MEDS: GABAPENTIN 100 MG CAP PO SCH (08:56)
[2024-04-14] MEDS: BUPROPION HCL XL 150 MG TAB PO SCH (08:57)
[2024-04-14] MEDS ORDERED: HOME MED 1 EA UNK (Aspirin [Vazalore] 81 MG Capsule) PO SCH (09:00)
[2024-04-14] MEDS ORDERED: HOME MED 1 EA UNK (Bupropion Hcl [Budeprion Xl] 300 MG Tab.Sr.24h) PO SCH (09:00)
[2024-04-14] MEDS ORDERED: CALCITROL 0.25 MCG CAP PO SCH (09:00)
[2024-04-14] MEDS: VANCOMYCIN 1 GM in NA CHLORIDE 0.9% 250 ML IVPB ONE (10:57)
[2024-04-14] MEDS ORDERED: ONDANSETRON 4 MG/2 ML VIAL IV PRN ×2 (13:58→14:18)
[2024-04-14] MEDS: Meropenem 1,000 MG in NA CHLORIDE 0.9% 100 ML IV SCH (16:31)
--- NOTE | 2024-04-14 18:40 | P.PN ---
Subjective Date of Service: 04/14/24 Chief Complaint: left foot pain redness Patient reports feeling much better today compared to yesterday. He also reports significant improvement in his left foot pain No fever over the past 48 hours. Physical Examination - Vital Signs Temperature: 97.2 F Blood Pressure: 144/61 Pulse: 64 Respirations: 14 Pulse Ox (%): 90 Assessment And Plan - Plan Physical examination General: Alert and oriented x3, NAD. Neck: No elevated JVD Heart: Heart sounds 1 and 2 normal, regular rhythm, normal rate, no pedal edema Lungs: Clear to auscultation bilaterally, adequate breath sounds bilaterally, no rhonchi or crackles. Abdomen: Soft, obese, nondistended, nontender, normal bowel sounds. Extremities: No tenderness, no deformity Skin: Normal skin turgor. Neuro: No focal motor deficit. Psychiatry: Normal mood, no agitation. Diagnosis Sepsis Infected left left foot diabetic ulcer Wound culture growing Proteus vulgaris and Enterococcus Bone tissue culture also growing gram-negative rods. Organism identification is still pending. Patient initially on IV cefepime and vancomycin. However patient leukocytosis got worse though he states he feels better. MRI of the foot shows osteomyelitis of the base of the fourth and fifth metatarsals. Status post debridement and bone biopsy by Dr. Quintero. IV cefepime and vancomycin was transitioned to IV gentamicin monitor Case discussed with nephrology Dr. Russo who suggested dual therapy with IV ceftazidime and gentamicin with dialysis Blood culture grew Proteus vulgaris with intermediate sensitivity to ceftazidime. Previous wound culture also grew Proteus vulgaris sensitive to ceftazidime. 1 wound culture shows Proteus vulgaris with intermediate sensitivity to ceftazidime. Given that gentamicin will have synergistic effect ceftazidime, will discuss with infectious disease whether 6 weeks of IV ceftazidime and gentamicin with dialysis as an option for the bacteremia and osteomyelitis. Infectious disease Dr. Godfrey is following Patient was deemed appropriate for SNF placement for complex wound care and also to receive antibiotics but patient declined to go to SNF. He will receive wound care by home health and get his antibiotics at the dialysis center. Monitor CBC to follow leukocytosis. ESRD on hemodialysis Nephrology Dr. Russo/Dr. Vaca are following Routine hemodialysis per nephrology. Anemia of chronic kidney disease Monitor CBC Transfuse for hemoglobin less than 7. Sleep obstructive sleep apnea, CPAP during sleep Hypertension Continue current medications Diabetes mellitus type 2 Patient had an episode of hypoglycemia which has resolved. Blood sugar management with insulin sliding scale. Continue current dose long-acting insulin. Morbid obesity Weight loss by diet and exercise recommended. DVT prophylaxis: Heparin SQ. Advanced directive: Full code.
--- NOTE | 2024-04-14 21:21 | P.PN ---
Date of Service: 04/14/24 Vital Signs Temp Pulse Resp BP Pulse Ox 97.3 F 57 16 120/54 L 94 04/14/24 20:00 04/14/24 20:00 04/14/24 20:00 04/14/24 20:00 04/14/24 20:00 Medications Acetaminophen (Acetaminophen 500 Mg Tab) 500 mg PO Q4HP PRN PRN Reason: TEMP > 100' F Last Admin: 04/11/24 16:23 Dose: 500 mg Aspirin (Aspirin Ec 81 Mg Tab) 81 mg PO DAILY [facility] Last Admin: 04/14/24 08:55 Dose: 81 mg Atorvastatin Calcium (Atorvastatin 40 Mg Tab) 40 mg PO BEDTIME [facility] Last Admin: 04/13/24 21:46 Dose: 40 mg Bupropion HCl (Bupropion Hcl Xl 150 Mg Tab) 300 mg PO DAILY [facility] Last Admin: 04/14/24 08:57 Dose: 300 mg Calcitriol (Calcitrol 0.25 Mcg Cap) 0.5 mcg PO DAILY [facility] Last Admin: 04/14/24 08:56 Dose: 0.5 mcg Carvedilol (Carvedilol 12.5 Mg Tab) 12.5 mg PO BID 6AM 6PM [facility] Last Admin: 04/14/24 18:00 Dose: Not Given Collagenase (Collagenase 30 Gm Ointment) 1 appl TOP DAILY [facility] Last Admin: 04/14/24 08:56 Dose: Not Given Cyclobenzaprine HCl (Cyclobenzaprine 10 Mg Tab) 10 mg PO DAILY PRN PRN Reason: MUSCLE SPASMS Docusate Sodium (Docusate Na 100 Mg Cap) 100 mg PO BID [facility] Last Admin: 04/14/24 08:55 Dose: 100 mg Enteral Nutritional Formula (Nepro Shake 237 Ml Can) 237 ml PO DAILY [facility] Last Admin: 04/14/24 08:56 Dose: 237 ml Epoetin Pierce (Epoetin Pierce 10,000 Unit/Ml Vial) 10,000 unit IV EVERY HD [facility] Last Admin: 04/13/24 13:15 Dose: 10,000 unit Ergocalciferol (Drisdol (Vitamin D=Ergocalciferol) 65111 Unit Cap) 50,000 unit PO Q7D@0900 [facility] Last Admin: 04/11/24 09:00 Dose: Not Given Ferrous Gluconate (Ferrous Gluconate 324 Mg Tab) 324 mg PO BID [facility] Last Admin: 04/14/24 08:55 Dose: 324 mg Gabapentin (Gabapentin 100 Mg Cap) 300 mg PO DAILY [facility] Last Admin: 04/14/24 08:56 Dose: 300 mg Glucagon (Glucagon 1 Mg/Vial) 1 mg IM 1X PRN PRN Reason: HYPOGLYCEMIA Heparin Sodium (Porcine) (Heparin 5000 Unit/Ml 1 Ml Vial) 5,000 unit SQ Q8HR [facility] Last Admin: 04/14/24 16:31 Dose: 5,000 unit Heparin Sodium (Porcine) (Heparin 1,000 Unit/Ml Vial) 3,000 unit IV EVERY HD PRN PRN Reason: Prevent HD System Clotting Last Admin: 04/13/24 10:27 Dose: 3,000 unit Home Med (Mecobalamin [B12 Active]) 1,000 mcg PO DAILY [facility] Last Admin: 04/14/24 08:36 Dose: Not Given Dextrose (Dextrose 10% Water Iv Soln.) 125 mls @ 0 mls/hr IV PRN PRN; Protocol PRN Reason: HYPOGLYCEMIA Albumin Human (Albumin 25%) 50 mls @ 100 mls/hr IV EVERY HD [facility] Gentamicin Sulfate 240 mg/ (Sodium Chloride) 106 mls @ 106 mls/hr IVPB [id number] [facility] Last Admin: 04/13/24 18:00 Dose: 106 mls Meropenem 1,000 mg/ Sodium (Chloride) 100 mls @ 200 mls/hr IV Q24H [facility] Last Admin: 04/14/24 16:31 Dose: 100 mls Vancomycin HCl 1 gm/ Sodium (Chloride) 250 mls @ 250 mls/hr IVPB AFTER EACH DIALYSIS [facility]; Protocol Insulin Glargine (Insulin Glargine 100 Unit/Ml) 15 unit SQ BID [facility] Last Admin: 04/14/24 08:56 Dose: 15 unit Insulin Human Regular (Insulin Regular (Human) 100 Unit/Ml) 0 unit SQ ACHS [facility]; Protocol Last Admin: 04/14/24 16:30 Dose: 3 unit Lidocaine (Lidocaine 4% Patch) 1 patch TOP BEDTIME [facility] Last Admin: 04/13/24 21:51 Dose: 1 patch Losartan Potassium (Losartan Potassium 50 Mg Tablet) 50 mg PO BEDTIME [facility] Last Admin: 04/13/24 21:47 Dose: 50 mg Mannitol (Mannitol 25% 12.5 Gm/50 Ml Vial) 12.5 gm IV EVERY HD PRN PRN Reason: Titrate to SBP (MUST DEFINE) Morphine Sulfate (Morphine 2 Mg/Ml Syr) 2 mg IV Q4H PRN PRN Reason: Pain scale 5-7 (Moderate) Last Admin: 04/13/24 14:55 Dose: 2 mg Ondansetron HCl (Ondansetron 4 Mg/2 Ml Vial) 4 mg IV Q6HP PRN PRN Reason: NAUSEA / VOMITING Oxycodone/Acetaminophen (Oxycodone Hcl/Acetaminophen 5/325 Mg Tab) 1 tab PO Q4H PRN PRN Reason: Pain scale 5-7 (Moderate) Last Admin: 04/14/24 08:57 Dose: 1 tab Sevelamer Carbonate (Sevelamer Carbonate 800 Mg Tablet) 800 mg PO TIDWM [facility] Last Admin: 04/14/24 16:25 Dose: Not Given Trazodone HCl (Trazodone 50 Mg Tablet) 50 mg PO BEDTIME PRN PRN PRN Reason: INSOMNIA Last Admin: 04/13/24 01:50 Dose: 50 mg Vitamin B Complex/Vit C/Folic Acid (Multivitamins,Therapeut 1 Tab) 1 tab PO DAILY [facility] Last Admin: 04/14/24 08:56 Dose: 1 tab Microbiology Results 04/09/24 20:25 Blood - Blood Aerobic Blood Culture - Final No growth in 5 days. 04/09/24 20:25 Blood - Blood Anaerobic Blood Culture - Final No growth in 5 days. 04/09/24 20:40 Blood - Blood Aerobic Blood Culture - Preliminary Proteus Vulgaris 04/09/24 20:40 Blood - Blood Anaerobic Blood Culture - Final Proteus Vulgaris 04/09/24 20:40 Blood - Blood Gram Stain - Final 04/09/24 21:30 Nasopharnyx Influenza Type A Antigen Screen - Final 04/09/24 21:30 Nasopharnyx Influenza Type B Antigen Screen - Final Assessment/ Plan: Nephrology No dyspnea No chest pain Ambulating today No acute events overnight Vitals, medications, blood work and imaging reviewed in the chart General: In no apparent distress, Oriented x3, Cooperative HEENT: Atraumatic Neck: Supple Respiratory: Normal air movement Cardiovascular: Regular rate/rhythm, Edema Gastrointestinal: Soft and benign, Non-distended Musculoskeletal: No clubbing, No contractures Integumentary: No rashes, No cyanosis, Diabetic ulcer Neurological: Normal speech Laboratory Data (last 24 hrs) 04/09/24 04/09/24 20:20 20:20 WBC 16.60 H Hgb 9.7 L Hct 29.4 L Plt Count 277 Sodium 133 L Potassium 4.6 BUN 74 H Creatinine 12.60 H Glucose 77 Total Bilirubin 0.8 AST 25 ALT 29 Alkaline Phosphatase 229 H Imagings Data: Procedure: Chest Single View HISTORY: Cough COMPARISON: 2021 FINDINGS: The lungs appear clear of acute infiltrate. No significant pleural effusion noted. The heart is mildly enlarged.. IMPRESSION: No acute abnormality is displayed. Exam:Foot Left 3 View CLINICAL HISTORY: Left foot pain FINDINGS: No fracture or dislocation seen Soft tissue swelling. No bony destructive lesion seen. Vascular calcifications. Large calcaneal spur Conclusions/Impression: ESRD on HD Hyponatremia -HD TIW HTN with CKD/ CHF -Continue Coreg Diastolic CHF, chronic -Low sodium diet -UF with HD DM II with CKD & Polyneuropathy -RISS DM II with Foot Ulcer -Continue Abx -ID following -Wound care as ordered Hypoalbuminemia -Continue Nepro Anemia in CKD -Retacrit qHD CKD MBD -Continue Ergo -Continue Calcitriol -Continue Renvela Case reviewed with Dr. Drummond
--- NOTE | 2024-04-14 22:04 | RAD REPORT ---
EXAMINATION: ONE VIEW CHEST XR CLINICAL INDICATION: Male, 59 years old.,Hypoxia TECHNIQUE: Frontal chest projection is submitted. Examination is limited by patient positioning and t echnique. COMPARISON: 04/09/2024 FINDINGS: Decreased inspiratory effort limits evaluation. Partial improvement of central interstitial prominenc e. No pneumothorax or sizable effusion. Stable cardiomegaly. Mediastinal contours are unremarkable. IMPRESSION: Partial improvement of central interstitial prominence suggesting improving congestion.
[2024-04-15 07:52] LABS: Absolute Basophils 0.1 K/uL (0-0.5); Absolute Eosinophils 0.1 K/uL (0-0.5); Absolute Lymphocytes (CBC) 1.5 K/uL (0.7-4.9); Absolute Monocytes 1.1 K/uL (0.1-1.3); Absolute Neutrophil 13.8 K/uL (1.8-8.0); Basophils % 0.6 % (0-1.3); Eosinophils % 0.6 % (0-4.4); Hematocrit 33.1 % (39.6-49.0); Hemoglobin 10.6 g/dL (13.6-17.9); Lymphocytes % 8.8 % (15.3-44.8); MCH 30.4 pg (27.0-35.0); MCHC 32.1 g/dL (32.0-36.0); MCV 94.8 fL (80-100); MPV 8.1 fL (7.6-11.3); Monocytes % 6.5 % (3.3-12.3); Neutrophils % 83.5 % (41.7-73.7); Nucleated Red Blood Cells % 0.1 % (0-0); Platelets 385 thou/uL (152-406); RBC Red Blood Cell Count 3.49 M/uL (4.33-5.43); Red Cell Distribution Width 16.2 % (12.1-15.2)
[2024-04-15 08:05] LABS: Anion Gap 15.2 mEq/L (5.0-15.0); Potassium 4.2 mEq/L (3.5-5.1)
[2024-04-15] MEDS: CEFTAZIDIME 2 GM/VIAL IV ONE (10:38)
[2024-04-15] MEDS ORDERED: CEFTAZIDIME 2 GM in NA CHLORIDE 0.9% 100 ML IV SCH (11:30)
--- NOTE | 2024-04-15 14:08 | P.PN ---
Subjective Date of Service: 04/15/24 Chief Complaint: left foot pain redness Patient reports increased pain in his left leg, otherwise feels much better. No fever. Patient reports improvement in his appetite. Physical Examination - Vital Signs Temperature: 99.2 F Blood Pressure: 123/58 Pulse: 73 Respirations: 16 Pulse Ox (%): 98 - Studies Microbiology Data (last 24 hrs): 04/09/24 20:40 Blood - Blood Aerobic Blood Culture - Final Proteus Vulgaris 04/09/24 20:40 Blood - Blood Anaerobic Blood Culture - Final Proteus Vulgaris 04/09/24 20:40 Blood - Blood Gram Stain - Final 04/09/24 20:25 Blood - Blood Aerobic Blood Culture - Final No growth in 5 days. 04/09/24 20:25 Blood - Blood Anaerobic Blood Culture - Final No growth in 5 days. Assessment And Plan - Plan Physical examination General: Alert and oriented x3, NAD. Neck: No elevated JVD Heart: Heart sounds 1 and 2 normal, regular rhythm, normal rate, no pedal edema Lungs: Clear to auscultation bilaterally, adequate breath sounds bilaterally, no rhonchi or crackles. Abdomen: Soft, obese, nondistended, nontender, normal bowel sounds. Extremities: No tenderness, no deformity Skin: Normal skin turgor. Neuro: No focal motor deficit. Psychiatry: Normal mood, no agitation. Diagnosis Sepsis Infected left left foot diabetic ulcer Wound culture growing Proteus vulgaris and Enterococcus Bone tissue culture also growing Proteus vulgaris and Enterococcus Patient initially on IV cefepime and vancomycin. However patient leukocytosis got worse though he states he feels better. MRI of the foot shows osteomyelitis of the base of the fourth and fifth metatarsals. Status post debridement and bone biopsy by Dr. Quintero. IV cefepime and vancomycin was transitioned to IV gentamicin monitor Case discussed with nephrology Dr. Russo who suggested dual therapy with IV ceftazidime and gentamicin with dialysis Blood culture grew Proteus vulgaris with intermediate sensitivity to ceftazidime. Previous wound culture also grew Proteus vulgaris sensitive to ceftazidime. 1 wound culture shows Proteus vulgaris with intermediate sensitivity to ceftazidime. Given that gentamicin will have synergistic effect ceftazidime, will discuss with infectious disease whether 6 weeks of IV ceftazidime and gentamicin with dialysis as an option for the bacteremia and osteomyelitis. Infectious disease Dr. Godfrey is following Patient was deemed appropriate for SNF placement for complex wound care and also to receive antibiotics but patient declined to go to SNF. He will receive wound care by home health and get his antibiotics at the dialysis center. Continue IV gentamicin, start IV ceftazidime. Leukocytosis is improving. Monitor CBC to follow leukocytosis. Titrate analgesics for pain control. ESRD on hemodialysis Nephrology Dr. Russo/Dr. Vaca are following Routine hemodialysis per nephrology. Anemia of chronic kidney disease Monitor CBC Transfuse for hemoglobin less than 7. Sleep obstructive sleep apnea, CPAP during sleep Hypertension Continue current medications Diabetes mellitus type 2 Patient had an episode of hypoglycemia which has resolved. Blood sugar management with insulin sliding scale. Continue current dose long-acting insulin. Morbid obesity Weight loss by diet and exercise recommended. DVT prophylaxis: Heparin SQ. Advanced directive: Full code.
[2024-04-15] MEDS: HYDROMORPHONE ORAL 2 MG TAB PO PRN (23:11)
[2024-04-16 05:50] LABS: Absolute Basophils 0.1 K/uL (0-0.5); Absolute Eosinophils 0.1 K/uL (0-0.5); Absolute Lymphocytes (CBC) 1.6 K/uL (0.7-4.9); Absolute Monocytes 1.3 K/uL (0.1-1.3); Absolute Neutrophil 18.8 K/uL (1.8-8.0); Basophils % 0.5 % (0-1.3); Eosinophils % 0.6 % (0-4.4); Hematocrit 31.6 % (39.6-49.0); Lymphocytes % 7.5 % (15.3-44.8); MCH 29.7 pg (27.0-35.0); MCHC 31.7 g/dL (32.0-36.0); MCV 93.8 fL (80-100); MPV 8.5 fL (7.6-11.3); Monocytes % 5.7 % (3.3-12.3); Neutrophils % 85.7 % (41.7-73.7); Platelets 347 thou/uL (152-406); RBC Red Blood Cell Count 3.37 M/uL (4.33-5.43); Red Cell Distribution Width 15.9 % (12.1-15.2)
[2024-04-16 06:21] LABS: Anion Gap 17.6 mEq/L (5.0-15.0); BUN Blood Urea Nitrogen 92 mg/dL (7-18); Bicarbonate 22 mEq/L (21-32); Glomerular Filtration Rate 5 ml/min (=/>90); Glucose Level 195 mg/dL (74-106); Potassium 4.6 mEq/L (3.5-5.1); Sodium Level 130 mEq/L (136-145)
[2024-04-16 06:25] LABS: Gentamicin Level, Trough < 0.2 mcg/ml (0-2.0)
--- NOTE | 2024-04-16 11:06 | EKG ---
Test Date: 2024-04-09 Test Time: 20:51:57 [place]man Captain: HANG MEASUREMENT RESULTS: Intervals: Rate: 81 OR: 126 QRSD: 98 QT: 400 QTc: 464 [place]: P: 24 OR: 126 QRS: 8 T: 4 INTERPRETIVE STATEMENTS: Normal sinus rhythm Normal ECG Compared to ECG 03/05/2024 11:12:14 No significant changes Electronically Signed On 04-16-24 10:58:38 PSYCHIATRIC AIDE INSTRUCTOR by Juancho Dailey
--- NOTE | 2024-04-16 16:47 | P.PN ---
Subjective Date of Service: 04/16/24 Chief Complaint: left foot pain redness Patient reports worsening pain in the left leg otherwise patient states he feels better. Leukocytosis trended up again. No fever. Physical Examination - Vital Signs Temperature: 98.1 F Blood Pressure: 144/64 Pulse: 65 Respirations: 16 Pulse Ox (%): 95 Assessment And Plan - Plan Physical examination General: Alert and oriented x3, NAD. Heart: Heart sounds 1 and 2 normal, regular rhythm, normal rate, no pedal edema Lungs: Clear to auscultation bilaterally, adequate breath sounds bilaterally, no rhonchi or crackles. Abdomen: Soft, obese, nondistended, nontender, normal bowel sounds. Extremities: No tenderness, left lateral foot debrided ulcer with slough, surrounding skin blisters. Neuro: No focal motor deficit. Psychiatry: Normal mood, no agitation. Diagnosis Sepsis Infected left left foot diabetic ulcer Wound culture: Proteus vulgaris and Enterococcus Bone tissue culture: Proteus vulgaris and Enterococcus Patient initially on IV cefepime and vancomycin. However patient leukocytosis got worse though he states he feels better. MRI of the foot shows osteomyelitis of the base of the fourth and fifth metatarsals. Status post debridement and bone biopsy by Dr. Quintero. IV cefepime and vancomycin was transitioned to IV gentamicin. Case discussed with nephrology Dr. Russo who suggested dual therapy with IV ceftazidime and gentamicin with dialysis Blood culture grew Proteus vulgaris with intermediate sensitivity to ceftazidime. Previous wound culture also grew Proteus vulgaris sensitive to ceftazidime. 1 wound culture: Proteus vulgaris with intermediate sensitivity to ceftazidime. Infectious disease Dr. Godfrey is following. Case discussed with Dr. Godfrey who recommended to avoid gentamicin for now, and recommend cefepime and vancomycin. Moreover patient has worsening leukocytosis with a gentamicin and ceftazidime. Patient was deemed appropriate for SNF placement for complex wound care and also to receive antibiotics but patient declined to go to SNF. Dr. Godfrey recommended LTAC for IV antibiotics administration as well as complex wound care management with hyperbaric oxygen. Antibiotics switched from IV gentamicin and IV ceftazidime to IV cefepime and vancomycin per Dr. Godfrey recommendation. Patient has agreed to go to LTAC Monitor CBC to follow leukocytosis. Analgesics for pain control. ESRD on hemodialysis Nephrology Dr. Russo/Dr. Vaca are following Routine hemodialysis per nephrology. Anemia of chronic kidney disease Monitor CBC Transfuse for hemoglobin less than 7. Hyponatremia To be corrected by routine hemodialysis. Sleep obstructive sleep apnea, CPAP during sleep Hypertension Continue current medications Diabetes mellitus type 2 Patient had an episode of hypoglycemia which has resolved. Blood sugar management with insulin sliding scale. Continue current dose long-acting insulin. Morbid obesity Weight loss by diet and exercise recommended. DVT prophylaxis: Heparin SQ. Advanced directive: Full code.
[2024-04-16] MEDS: CEFEPIME 1 GM in NA CHLORIDE 0.9% 100 ML IV SCH (17:33)
--- NOTE | 2024-04-16 19:53 | P.PN ---
Date of Service: 04/16/24 Vital Signs Temp Pulse Resp BP Pulse Ox 98.1 F 65 16 144/64 H 95 04/16/24 16:48 04/16/24 17:33 04/16/24 16:48 04/16/24 17:33 04/16/24 16:48 Medications Acetaminophen (Acetaminophen 500 Mg Tab) 500 mg PO Q4HP PRN PRN Reason: TEMP > 100' F Last Admin: 04/11/24 16:23 Dose: 500 mg Aspirin (Aspirin Ec 81 Mg Tab) 81 mg PO DAILY [facility] Last Admin: 04/16/24 09:33 Dose: 81 mg Atorvastatin Calcium (Atorvastatin 40 Mg Tab) 40 mg PO BEDTIME [facility] Last Admin: 04/15/24 22:32 Dose: 40 mg Bupropion HCl (Bupropion Hcl Xl 150 Mg Tab) 300 mg PO DAILY [facility] Last Admin: 04/16/24 09:33 Dose: 300 mg Calcitriol (Calcitrol 0.25 Mcg Cap) 0.5 mcg PO DAILY [facility] Last Admin: 04/16/24 09:33 Dose: 0.5 mcg Carvedilol (Carvedilol 12.5 Mg Tab) 12.5 mg PO BID 6AM 6PM [facility] Last Admin: 04/16/24 17:33 Dose: 12.5 mg Collagenase (Collagenase 30 Gm Ointment) 1 appl TOP DAILY [facility] Last Admin: 04/16/24 15:55 Dose: 1 appl Cyclobenzaprine HCl (Cyclobenzaprine 10 Mg Tab) 10 mg PO DAILY PRN PRN Reason: MUSCLE SPASMS Docusate Sodium (Docusate Na 100 Mg Cap) 100 mg PO BID [facility] Last Admin: 04/16/24 09:33 Dose: 100 mg Enteral Nutritional Formula (Nepro Shake 237 Ml Can) 237 ml PO DAILY [facility] Last Admin: 04/16/24 09:00 Dose: 237 ml Epoetin Pierce (Epoetin Pierce 10,000 Unit/Ml Vial) 10,000 unit IV EVERY HD [facility] Last Admin: 04/13/24 13:15 Dose: 10,000 unit Ergocalciferol (Drisdol (Vitamin D=Ergocalciferol) 20140 Unit Cap) 50,000 unit PO Q7D@0900 [facility] Last Admin: 04/11/24 09:00 Dose: Not Given Ferrous Gluconate (Ferrous Gluconate 324 Mg Tab) 324 mg PO BID [facility] Last Admin: 04/16/24 09:33 Dose: 324 mg Gabapentin (Gabapentin 100 Mg Cap) 300 mg PO DAILY [facility] Last Admin: 04/16/24 09:32 Dose: 300 mg Glucagon (Glucagon 1 Mg/Vial) 1 mg IM 1X PRN PRN Reason: HYPOGLYCEMIA Heparin Sodium (Porcine) (Heparin 5000 Unit/Ml 1 Ml Vial) 5,000 unit SQ Q8HR [facility] Last Admin: 04/16/24 17:33 Dose: 5,000 unit Heparin Sodium (Porcine) (Heparin 1,000 Unit/Ml Vial) 3,000 unit IV EVERY HD PRN PRN Reason: Prevent HD System Clotting Last Admin: 04/13/24 10:27 Dose: 3,000 unit Home Med (Mecobalamin [B12 Active]) 1,000 mcg PO DAILY [facility] Last Admin: 04/16/24 09:00 Dose: Not Given Hydromorphone HCl (Hydromorphone Oral 2 Mg Tab) 2 mg PO Q4H PRN PRN Reason: Pain scale 8-10 (Severe) Last Admin: 04/15/24 23:11 Dose: 2 mg Dextrose (Dextrose 10% Water Iv Soln.) 125 mls @ 0 mls/hr IV PRN PRN; Protocol PRN Reason: HYPOGLYCEMIA Albumin Human (Albumin 25%) 50 mls @ 100 mls/hr IV EVERY HD [facility] Vancomycin HCl 1 gm/ Sodium (Chloride) 250 mls @ 250 mls/hr IVPB AFTER EACH DIALYSIS [facility]; Protocol Cefepime HCl 1 gm/ Sodium (Chloride) 100 mls @ 200 mls/hr IV DAILY [facility]; Protocol Last Admin: 04/16/24 17:33 Dose: 100 mls Insulin Glargine (Insulin Glargine 100 Unit/Ml) 15 unit SQ BID [facility] Last Admin: 04/16/24 09:34 Dose: 15 unit Insulin Human Regular (Insulin Regular (Human) 100 Unit/Ml) 0 unit SQ ACHS [facility]; Protocol Last Admin: 04/16/24 17:34 Dose: 3 unit Lidocaine (Lidocaine 4% Patch) 1 patch TOP BEDTIME [facility] Last Admin: 04/15/24 22:32 Dose: 1 patch Losartan Potassium (Losartan Potassium 50 Mg Tablet) 50 mg PO BEDTIME [facility] Last Admin: 04/15/24 22:32 Dose: 50 mg Mannitol (Mannitol 25% 12.5 Gm/50 Ml Vial) 12.5 gm IV EVERY HD PRN PRN Reason: Titrate to SBP (MUST DEFINE) Morphine Sulfate (Morphine 2 Mg/Ml Syr) 2 mg IV Q4H PRN PRN Reason: Pain scale 5-7 (Moderate) Last Admin: 04/16/24 01:06 Dose: 2 mg Ondansetron HCl (Ondansetron 4 Mg/2 Ml Vial) 4 mg IV Q6HP PRN PRN Reason: NAUSEA / VOMITING Sevelamer Carbonate (Sevelamer Carbonate 800 Mg Tablet) 800 mg PO TIDWM [facility] Last Admin: 04/16/24 17:34 Dose: 800 mg Trazodone HCl (Trazodone 50 Mg Tablet) 50 mg PO BEDTIME PRN PRN PRN Reason: INSOMNIA Last Admin: 04/13/24 01:50 Dose: 50 mg Vitamin B Complex/Vit C/Folic Acid (Multivitamins,Therapeut 1 Tab) 1 tab PO DAILY [facility] Last Admin: 04/16/24 09:32 Dose: 1 tab Microbiology Results 04/09/24 20:40 Blood - Blood Aerobic Blood Culture - Final Proteus Vulgaris 04/09/24 20:40 Blood - Blood Anaerobic Blood Culture - Final Proteus Vulgaris 04/09/24 20:40 Blood - Blood Gram Stain - Final 04/09/24 20:25 Blood - Blood Aerobic Blood Culture - Final No growth in 5 days. 04/09/24 20:25 Blood - Blood Anaerobic Blood Culture - Final No growth in 5 days. 04/09/24 21:30 Nasopharnyx Influenza Type A Antigen Screen - Final 04/09/24 21:30 Nasopharnyx Influenza Type B Antigen Screen - Final Assessment/ Plan: Nephrology No dyspnea No chest pain No acute events overnight Vitals, medications, blood work and imaging reviewed in the chart General: In no apparent distress, Oriented x3, Cooperative HEENT: Atraumatic Neck: Supple Respiratory: Normal air movement Cardiovascular: Regular rate/rhythm, Edema Gastrointestinal: Soft and benign, Non-distended Musculoskeletal: No clubbing, No contractures Integumentary: No rashes, No cyanosis, Diabetic ulcer Neurological: Normal speech Laboratory Data (last 24 hrs) 04/09/24 04/09/24 20:20 20:20 WBC 16.60 H Hgb 9.7 L Hct 29.4 L Plt Count 277 Sodium 133 L Potassium 4.6 BUN 74 H Creatinine 12.60 H Glucose 77 Total Bilirubin 0.8 AST 25 ALT 29 Alkaline Phosphatase 229 H Imagings Data: Procedure: Chest Single View HISTORY: Cough COMPARISON: 2021 FINDINGS: The lungs appear clear of acute infiltrate. No significant pleural effusion noted. The heart is mildly enlarged.. IMPRESSION: No acute abnormality is displayed. Exam:Foot Left 3 View CLINICAL HISTORY: Left foot pain FINDINGS: No fracture or dislocation seen Soft tissue swelling. No bony destructive lesion seen. Vascular calcifications. Large calcaneal spur Conclusions/Impression: ESRD on HD Hyponatremia -HD TIW -Seen and examined on HD HTN with CKD/ CHF -Continue Coreg Diastolic CHF, chronic -Low sodium diet -UF with HD DM II with CKD & Polyneuropathy -RISS DM II with Foot Ulcer -Continue Abx -ID following -Wound care as ordered Hypoalbuminemia -Continue Nepro Anemia in CKD -Retacrit qHD CKD MBD -Continue Ergo -Continue Calcitriol -Continue Renvela Case reviewed with Dr. Drummond
[2024-04-17] MEDS ORDERED: VANCOMYCIN 1 GM in NA CHLORIDE 0.9% 250 ML IVPB SCH (09:00)
[2024-04-17 09:31] LABS: Absolute Basophils 0.2 K/uL (0-0.5); Absolute Eosinophils 0.2 K/uL (0-0.5); Absolute Lymphocytes (CBC) 1.6 K/uL (0.7-4.9); Absolute Monocytes 1.1 K/uL (0.1-1.3); Absolute Neutrophil 18.2 K/uL (1.8-8.0); Basophils % 0.8 % (0-1.3); Eosinophils % 0.9 % (0-4.4); Hematocrit 29.8 % (39.6-49.0); Hemoglobin 9.6 g/dL (13.6-17.9); Lymphocytes % 7.7 % (15.3-44.8); MCH 29.9 pg (27.0-35.0); MCHC 32.3 g/dL (32.0-36.0); MCV 92.5 fL (80-100); MPV 8.4 fL (7.6-11.3); Neutrophils % 85.6 % (41.7-73.7); Platelets 327 thou/uL (152-406); RBC Red Blood Cell Count 3.22 M/uL (4.33-5.43); Red Cell Distribution Width 15.7 % (12.1-15.2)
[2024-04-17 09:45] LABS: Anion Gap 13.5 mEq/L (5.0-15.0); Potassium 4.5 mEq/L (3.5-5.1)
--- NOTE | 2024-04-17 13:25 | P.PN ---
Date of Service: 04/17/24 Subjective: no acute events overnight continues with LLE pain/swelling ROS: 10 point ROS as noted above, otherwise negative Physical Exam: GEN: Alert, oriented CV: Regular rate and rhythm, LLE edema Pulm: Nonlabored respirations on room air, clear bilaterally Integumentary: left lateral foot debrided ulcer with slough, surrounding skin blisters. Dressing in place. Neuro: Normal speech, normal affect Problem List: Sepsis secondary to infected left foot diabetic ulcer, s/p I&D (04/12) Proteus Vulgaris Bacteremia ESRD on HD MWF IDDM2 Anemia of chronic kidney disease Hyponatremia Obstructive sleep apnea Hypertension Sepsis secondary to infected left foot diabetic ulcer, s/p I&D (04/12) Proteus Vulgaris Bacteremia MRI foot (04/11): osteomyelitis of the base of the fourth and fifth metatarsals. Dr. Quintero, general surgeon is following s/p I&D with bone biopsy (04/12) Wound cx (04/10): Proteus vulgaris and Enterococcus Faecalis Surgical Wound cx (04/12): Proteus vulgaris, Enterococcus Faecalis, Escherichia Fergusoni Blood cx (04/10): Proteus Vulgaris repeat blood cx (04/15): NGTD Case discussed with nephrology Dr. Russo who suggested dual therapy with IV ceftazidime and gentamicin with dialysis Case discussed with Dr. Godfrey who recommended to avoid gentamicin for now, and recommend cefepime and vancomycin. Moreover patient has worsening leukocytosis with a gentamicin and ceftazidime. Dr. Godfrey recommended LTAC for IV antibiotics administration as well as complex wound care management with hyperbaric oxygen. IV gentamicin/ceftazidime switched to IV cefepime and vancomycin (04/17) per ID recs Continue IV cefepiem and IV vanc for now Patient has agreed to go to LTAC Pain control ESRD on HD MWF Nephrology is following Routine hemodialysis per nephrology. IDDM2 accu-cheks, SSI. continue semglee 15u BID; titrate as needed Anemia of chronic kidney disease. Stable. Daily labs Hyponatremia. To be corrected by routine hemodialysis. Sleep obstructive sleep apnea. CPAP during sleep Hypertension. continue home medications VTE: heparin sq Code: Full Dispo: LTAC pending Time Spent Managing Pts Care (In Minutes): 55
[2024-04-17] MEDS: SILVER SULFADIAZINE 1% 50 GM TOP SCH (14:15)
--- NOTE | 2024-04-17 16:05 | PN ---
Subjective: The patient lying in bed. No new acute event. Possible transfer to long-term acute care after approval from his insurance company. Objective: Vital Signs: Temperature 98, pulse 64, respirations 18, blood pressure 140/60. Lungs: Basal crackles. Heart: S1, S2. Regular. Abdomen: Soft, nontender. Bowel sounds present. Extremity: Wound noted. Micro shows Proteus vulgaris, Enterococcus faecalis, and E coli and blood cultures also showing Proteus vulgaris. Patient currently on cefepime and vancomycin. Laboratory Data: WBC 21,000, hemoglobin 9.6, platelets 327. Chemistry shows BUN of 62, creatinine 8.3. Assessment And Plan: End-stage renal disease; osteomyelitis of the left foot; abscess, improving; diabetic foot ulcer; anemia of chronic disease; obstructive sleep apnea; diabetes mellitus type 2; morbid obesity; leukocytosis. Continue current antibiotic and supportive care. We will follow the patient as needed. I agree with long-term acute care, IV antibiotic, and wound management, and possible hyperbaric treatment. We will follow the patient as needed. MICHELE/JIMMY Voice ID: [id number] Report ID: [id number] ZOYA
[2024-04-17] MEDS: CEFEPIME 1 GM in NA CHLORIDE 0.9% 100 ML IV SCH (18:00)
--- NOTE | 2024-04-17 20:45 | P.PN ---
Date of Service: 04/17/24 Vital Signs Temp Pulse Resp BP Pulse Ox 97.8 F 59 20 105/35 L 20 L 04/17/24 16:00 04/17/24 16:00 04/17/24 16:00 04/17/24 16:00 04/17/24 16:00 Medications Acetaminophen (Acetaminophen 500 Mg Tab) 500 mg PO Q4HP PRN PRN Reason: TEMP > 100' F Last Admin: 04/11/24 16:23 Dose: 500 mg Aspirin (Aspirin Ec 81 Mg Tab) 81 mg PO DAILY [facility] Last Admin: 04/17/24 09:14 Dose: 81 mg Atorvastatin Calcium (Atorvastatin 40 Mg Tab) 40 mg PO BEDTIME [facility] Last Admin: 04/17/24 20:29 Dose: 40 mg Bupropion HCl (Bupropion Hcl Xl 150 Mg Tab) 300 mg PO DAILY [facility] Last Admin: 04/17/24 09:13 Dose: 300 mg Calcitriol (Calcitrol 0.25 Mcg Cap) 0.5 mcg PO DAILY [facility] Last Admin: 04/17/24 09:13 Dose: 0.5 mcg Carvedilol (Carvedilol 12.5 Mg Tab) 12.5 mg PO BID 6AM 6PM [facility] Last Admin: 04/17/24 17:33 Dose: Not Given Collagenase (Collagenase 30 Gm Ointment) 1 appl TOP DAILY [facility] Last Admin: 04/17/24 18:08 Dose: 1 appl Cyclobenzaprine HCl (Cyclobenzaprine 10 Mg Tab) 10 mg PO DAILY PRN PRN Reason: MUSCLE SPASMS Docusate Sodium (Docusate Na 100 Mg Cap) 100 mg PO BID [facility] Last Admin: 04/17/24 20:30 Dose: 100 mg Enteral Nutritional Formula (Nepro Shake 237 Ml Can) 237 ml PO DAILY [facility] Last Admin: 04/17/24 09:00 Dose: Not Given Epoetin Pierce (Epoetin Pierce 10,000 Unit/Ml Vial) 10,000 unit IV EVERY HD [facility] Last Admin: 04/13/24 13:15 Dose: 10,000 unit Ergocalciferol (Drisdol (Vitamin D=Ergocalciferol) 33557 Unit Cap) 50,000 unit PO Q7D@0900 [facility] Last Admin: 04/11/24 09:00 Dose: Not Given Ferrous Gluconate (Ferrous Gluconate 324 Mg Tab) 324 mg PO BID [facility] Last Admin: 04/17/24 20:29 Dose: 324 mg Gabapentin (Gabapentin 100 Mg Cap) 300 mg PO DAILY [facility] Last Admin: 04/17/24 09:13 Dose: 300 mg Glucagon (Glucagon 1 Mg/Vial) 1 mg IM 1X PRN PRN Reason: HYPOGLYCEMIA Heparin Sodium (Porcine) (Heparin 5000 Unit/Ml 1 Ml Vial) 5,000 unit SQ Q8HR [facility] Last Admin: 04/17/24 17:34 Dose: 5,000 unit Home Med (Mecobalamin [B12 Active]) 1,000 mcg PO DAILY [facility] Last Admin: 04/17/24 09:00 Dose: Not Given Hydromorphone HCl (Hydromorphone Oral 2 Mg Tab) 2 mg PO Q4H PRN PRN Reason: Pain scale 8-10 (Severe) Last Admin: 04/17/24 09:25 Dose: 2 mg Dextrose (Dextrose 10% Water Iv Soln.) 125 mls @ 0 mls/hr IV PRN PRN; Protocol PRN Reason: HYPOGLYCEMIA Albumin Human (Albumin 25%) 50 mls @ 100 mls/hr IV EVERY HD [facility] Vancomycin HCl 1 gm/ Sodium (Chloride) 250 mls @ 250 mls/hr IVPB AFTER EACH DIALYSIS [facility]; Protocol Cefepime HCl 1 gm/ Sodium (Chloride) 100 mls @ 200 mls/hr IV Q24H [facility]; Protocol Insulin Glargine (Insulin Glargine 100 Unit/Ml) 15 unit SQ BID [facility] Last Admin: 04/17/24 20:35 Dose: 15 unit Insulin Human Regular (Insulin Regular (Human) 100 Unit/Ml) 0 unit SQ ACHS [facility]; Protocol Last Admin: 04/17/24 20:29 Dose: Not Given Lidocaine (Lidocaine 4% Patch) 1 patch TOP BEDTIME [facility] Last Admin: 04/17/24 20:35 Dose: 1 patch Losartan Potassium (Losartan Potassium 50 Mg Tablet) 50 mg PO BEDTIME [facility] Last Admin: 04/17/24 20:29 Dose: 50 mg Mannitol (Mannitol 25% 12.5 Gm/50 Ml Vial) 12.5 gm IV EVERY HD PRN PRN Reason: Titrate to SBP (MUST DEFINE) Morphine Sulfate (Morphine 2 Mg/Ml Syr) 2 mg IV Q4H PRN PRN Reason: Pain scale 5-7 (Moderate) Last Admin: 04/17/24 06:00 Dose: 2 mg Ondansetron HCl (Ondansetron 4 Mg/2 Ml Vial) 4 mg IV Q6HP PRN PRN Reason: NAUSEA / VOMITING Sevelamer Carbonate (Sevelamer Carbonate 800 Mg Tablet) 800 mg PO TIDWM [facility] Last Admin: 04/17/24 17:34 Dose: 800 mg Silver Sulfadiazine (Silver Sulfadiazine 1% 50 Gm) 1 appl TOP BID [facility] Trazodone HCl (Trazodone 50 Mg Tablet) 50 mg PO BEDTIME PRN PRN PRN Reason: INSOMNIA Last Admin: 04/13/24 01:50 Dose: 50 mg Vitamin B Complex/Vit C/Folic Acid (Multivitamins,Therapeut 1 Tab) 1 tab PO DAILY [facility] Last Admin: 04/17/24 09:13 Dose: 1 tab Microbiology Results 04/09/24 20:40 Blood - Blood Aerobic Blood Culture - Final Proteus Vulgaris 04/09/24 20:40 Blood - Blood Anaerobic Blood Culture - Final Proteus Vulgaris 04/09/24 20:40 Blood - Blood Gram Stain - Final 04/09/24 20:25 Blood - Blood Aerobic Blood Culture - Final No growth in 5 days. 04/09/24 20:25 Blood - Blood Anaerobic Blood Culture - Final No growth in 5 days. 04/09/24 21:30 Nasopharnyx Influenza Type A Antigen Screen - Final 04/09/24 21:30 Nasopharnyx Influenza Type B Antigen Screen - Final Assessment/ Plan: Nephrology No dyspnea No chest pain No acute events overnight Vitals, medications, blood work and imaging reviewed in the chart General: In no apparent distress, Oriented x3, Cooperative HEENT: Atraumatic Neck: Supple Respiratory: Normal air movement Cardiovascular: Regular rate/rhythm, Edema Gastrointestinal: Soft and benign, Non-distended Musculoskeletal: No clubbing, No contractures Integumentary: No rashes, No cyanosis, Diabetic ulcer Neurological: Normal speech Laboratory Data (last 24 hrs) 04/09/24 04/09/24 20:20 20:20 WBC 16.60 H Hgb 9.7 L Hct 29.4 L Plt Count 277 Sodium 133 L Potassium 4.6 BUN 74 H Creatinine 12.60 H Glucose 77 Total Bilirubin 0.8 AST 25 ALT 29 Alkaline Phosphatase 229 H Imagings Data: Procedure: Chest Single View HISTORY: Cough COMPARISON: 2021 FINDINGS: The lungs appear clear of acute infiltrate. No significant pleural effusion noted. The heart is mildly enlarged.. IMPRESSION: No acute abnormality is displayed. Exam:Foot Left 3 View CLINICAL HISTORY: Left foot pain FINDINGS: No fracture or dislocation seen Soft tissue swelling. No bony destructive lesion seen. Vascular calcifications. Large calcaneal spur Conclusions/Impression: ESRD on HD Hyponatremia -HD TIW HTN with CKD/ CHF -Continue Coreg Diastolic CHF, chronic -Low sodium diet -UF with HD DM II with CKD & Polyneuropathy -RISS DM II with Foot Ulcer -Continue Abx -ID following -Wound care as ordered Hypoalbuminemia -Continue Nepro Anemia in CKD -Retacrit qHD -Continue oral iron CKD MBD -Continue Ergo -Continue Calcitriol -Continue [facility] Hospitalist note reviewed
[2024-04-18 06:20] LABS: Absolute Basophils 0.1 K/uL (0-0.5); Absolute Eosinophils 0.3 K/uL (0-0.5); Absolute Lymphocytes (CBC) 1.8 K/uL (0.7-4.9); Absolute Monocytes 1.1 K/uL (0.1-1.3); Absolute Neutrophil 15.1 K/uL (1.8-8.0); Basophils % 0.7 % (0-1.3); Eosinophils % 1.8 % (0-4.4); Hematocrit 29.3 % (39.6-49.0); Hemoglobin 9.3 g/dL (13.6-17.9); Lymphocytes % 9.9 % (15.3-44.8); MCH 29.8 pg (27.0-35.0); MCHC 31.8 g/dL (32.0-36.0); MCV 93.4 fL (80-100); MPV 8.4 fL (7.6-11.3); Monocytes % 5.9 % (3.3-12.3); Neutrophils % 81.7 % (41.7-73.7); Nucleated Red Blood Cells % 0.1 % (0-0); Platelets 317 thou/uL (152-406); RBC Red Blood Cell Count 3.14 M/uL (4.33-5.43); Red Cell Distribution Width 16.2 % (12.1-15.2)
[2024-04-18 06:22] LABS: ALT/SGPT 18 U/L (16-61); Albumin 1.9 g/dL (3.4-5.0); Albumin/Globulin Ratio 0.4 (1.1-1.8); Alkaline Phosphatase 162 U/L (45-117); Anion Gap 13.7 mEq/L (5.0-15.0); BUN Blood Urea Nitrogen 77 mg/dL (7-18); Bicarbonate 26 mEq/L (21-32); Bilirubin Total 0.4 mg/dL (0.2-1.0); Globulin 4.4 g/dL (2.3-3.5); Glomerular Filtration Rate 6 ml/min (=/>90); Glucose Level 262 mg/dL (74-106); Magnesium 2.4 mg/dL (1.6-2.4); Phosphorus 6.4 mg/dL (2.5-4.9); Potassium 4.7 mEq/L (3.5-5.1); Protein, Total 6.3 g/dL (6.4-8.2); Sodium Level 132 mEq/L (136-145)
[2024-04-18 06:23] LABS: AST/SGOT < 10 U/L (15-37)
--- NOTE | 2024-04-18 11:55 | P.PN ---
Date of Service: 04/18/24 Subjective: no acute events overnight afebrile Pending LTAC ROS: 10 point ROS as noted above, otherwise negative Physical Exam: GEN: Alert, oriented CV: Regular rate and rhythm, LLE edema Pulm: Nonlabored respirations on room air, clear bilaterally Integumentary: left lateral foot debrided ulcer with slough, surrounding skin blisters. Dressing in place. Neuro: Normal speech, normal affect Problem List: Sepsis secondary to infected left foot diabetic ulcer, s/p I&D (04/12) Proteus Vulgaris Bacteremia ESRD on HD MWF IDDM2 Anemia of chronic kidney disease Hyponatremia Obstructive sleep apnea Hypertension Sepsis secondary to infected left foot diabetic ulcer, s/p I&D (04/12) Proteus Vulgaris Bacteremia MRI foot (04/11): osteomyelitis of the base of the fourth and fifth metatarsals. Dr. Quintero, general surgeon is following s/p I&D with bone biopsy (04/12) Wound cx (04/10): Proteus vulgaris and Enterococcus Faecalis Surgical Wound cx (04/12): Proteus vulgaris, Enterococcus Faecalis, Escherichia Fergusoni Blood cx (04/10): Proteus Vulgaris repeat blood cx (04/15): NGTD Case discussed with nephrology Dr. Russo who suggested dual therapy with IV ceftazidime and gentamicin with dialysis Case discussed with Dr. Godfrey who recommended to avoid gentamicin for now, and recommend cefepime and vancomycin. Moreover patient has worsening leukocytosis with a gentamicin and ceftazidime. Dr. Godfrey recommended LTAC for IV antibiotics administration as well as complex wound care management with hyperbaric oxygen. IV gentamicin/ceftazidime switched to IV cefepime and vancomycin (04/17) per ID recs Continue IV cefepime and IV vanc for now Leukocytosis improving Patient has agreed to go to LTAC Pain control ESRD on HD MWF Nephrology is following Routine hemodialysis per nephrology. IDDM2 accu-cheks, SSI. continue semglee 15u BID; titrate as needed Anemia of chronic kidney disease. Stable. Daily labs Hyponatremia. To be corrected by routine hemodialysis. Sleep obstructive sleep apnea. CPAP during sleep Hypertension. continue home medications VTE: heparin sq Code: Full Dispo: LTAC pending Time Spent Managing Pts Care (In Minutes): 45
--- NOTE | 2024-04-18 17:08 | PN ---
Subjective: The patient is lying in bed, awaiting being transferred to long-term acute care. No oth er complaints. Objective: Vital signs: Temperature 97, pulse 56, respirations 14, blood pressure 169/72. Lungs: Basal crackles. Heart: S1, S2. Regular. Abdomen: Soft, nontender. Bowel sounds present. Extremities: Trace edema, wound noted. Laboratory Data: WBC 18.4, hemoglobin 9.3, platelets are 317. BUN of 77, creatinine of 9.4. Current Medications: Include cefepime and vancomycin. Assessment And Plan: Osteomyelitis of the foot and diabetic foot ulcer. Continue antibiotic and sup portive care. Leukocytosis and anemia of chronic disease, renal failure, end-stage renal disease. W e will follow the patient as needed. NF/MODL Voice ID: [id number] Report ID: [id number]
[2024-04-18] MEDS: VANCOMYCIN 1 GM in NA CHLORIDE 0.9% 250 ML IVPB SCH ×2 (17:26→18:00)
--- NOTE | 2024-04-18 21:33 | P.PN ---
Date of Service: 04/18/24 Vital Signs Temp Pulse Resp BP Pulse Ox 98.3 F 68 16 139/61 96 04/18/24 16:00 04/18/24 16:00 04/18/24 16:00 04/18/24 16:00 04/18/24 16:00 Medications Acetaminophen (Acetaminophen 500 Mg Tab) 500 mg PO Q4HP PRN PRN Reason: TEMP > 100' F Last Admin: 04/11/24 16:23 Dose: 500 mg Aspirin (Aspirin Ec 81 Mg Tab) 81 mg PO DAILY [facility] Last Admin: 04/18/24 09:53 Dose: 81 mg Atorvastatin Calcium (Atorvastatin 40 Mg Tab) 40 mg PO BEDTIME [facility] Last Admin: 04/17/24 20:29 Dose: 40 mg Bupropion HCl (Bupropion Hcl Xl 150 Mg Tab) 300 mg PO DAILY [facility] Last Admin: 04/18/24 09:53 Dose: 300 mg Calcitriol (Calcitrol 0.25 Mcg Cap) 0.5 mcg PO DAILY [facility] Last Admin: 04/18/24 09:53 Dose: 0.5 mcg Carvedilol (Carvedilol 12.5 Mg Tab) 12.5 mg PO BID 6AM 6PM [facility] Last Admin: 04/18/24 16:13 Dose: 12.5 mg Collagenase (Collagenase 30 Gm Ointment) 1 appl TOP DAILY [facility] Last Admin: 04/18/24 09:55 Dose: 1 appl Cyclobenzaprine HCl (Cyclobenzaprine 10 Mg Tab) 10 mg PO DAILY PRN PRN Reason: MUSCLE SPASMS Docusate Sodium (Docusate Na 100 Mg Cap) 100 mg PO BID [facility] Last Admin: 04/18/24 09:53 Dose: 100 mg Enteral Nutritional Formula (Nepro Shake 237 Ml Can) 237 ml PO DAILY [facility] Last Admin: 04/18/24 09:00 Dose: Not Given Epoetin Pierce (Epoetin Pierce 10,000 Unit/Ml Vial) 10,000 unit IV EVERY HD [facility] Last Admin: 04/18/24 13:15 Dose: 10,000 unit Ergocalciferol (Drisdol (Vitamin D=Ergocalciferol) 96775 Unit Cap) 50,000 unit PO Q7D@0900 [facility] Last Admin: 04/18/24 09:53 Dose: 50,000 unit Ferrous Gluconate (Ferrous Gluconate 324 Mg Tab) 324 mg PO BID [facility] Last Admin: 04/18/24 09:53 Dose: 324 mg Gabapentin (Gabapentin 100 Mg Cap) 300 mg PO DAILY [facility] Last Admin: 04/18/24 09:53 Dose: 300 mg Glucagon (Glucagon 1 Mg/Vial) 1 mg IM 1X PRN PRN Reason: HYPOGLYCEMIA Heparin Sodium (Porcine) (Heparin 5000 Unit/Ml 1 Ml Vial) 5,000 unit SQ Q8HR [facility] Last Admin: 04/18/24 16:13 Dose: 5,000 unit Heparin Sodium (Porcine) (Heparin 1,000 Unit/Ml Vial) 3,000 unit IV EVERY HD PRN PRN Reason: Prevent HD System Clotting Last Admin: 04/18/24 10:27 Dose: 3,000 unit Home Med (Mecobalamin [B12 Active]) 1,000 mcg PO DAILY [facility] Last Admin: 04/18/24 09:00 Dose: Not Given Hydromorphone HCl (Hydromorphone Oral 2 Mg Tab) 2 mg PO Q4H PRN PRN Reason: Pain scale 8-10 (Severe) Last Admin: 04/18/24 09:58 Dose: 2 mg Dextrose (Dextrose 10% Water Iv Soln.) 125 mls @ 0 mls/hr IV PRN PRN; Protocol PRN Reason: HYPOGLYCEMIA Albumin Human (Albumin 25%) 50 mls @ 100 mls/hr IV EVERY HD [facility] Vancomycin HCl 1 gm/ Sodium (Chloride) 250 mls @ 250 mls/hr IVPB AFTER EACH DIALYSIS [facility]; Protocol Last Admin: 04/18/24 18:40 Dose: 250 mls Cefepime HCl 1 gm/ Sodium (Chloride) 100 mls @ 200 mls/hr IV Q24H [facility]; Protocol Last Admin: 04/18/24 16:13 Dose: 100 mls Insulin Glargine (Insulin Glargine 100 Unit/Ml) 15 unit SQ BID [facility] Last Admin: 04/18/24 09:53 Dose: 15 unit Insulin Human Regular (Insulin Regular (Human) 100 Unit/Ml) 0 unit SQ ACHS [facility]; Protocol Last Admin: 04/18/24 16:12 Dose: 5 unit Lidocaine (Lidocaine 4% Patch) 1 patch TOP BEDTIME [facility] Last Admin: 04/17/24 20:35 Dose: 1 patch Losartan Potassium (Losartan Potassium 50 Mg Tablet) 50 mg PO BEDTIME [facility] Last Admin: 04/17/24 20:29 Dose: 50 mg Mannitol (Mannitol 25% 12.5 Gm/50 Ml Vial) 12.5 gm IV EVERY HD PRN PRN Reason: Titrate to SBP (MUST DEFINE) Morphine Sulfate (Morphine 2 Mg/Ml Syr) 2 mg IV Q4H PRN PRN Reason: Pain scale 5-7 (Moderate) Last Admin: 04/17/24 06:00 Dose: 2 mg Ondansetron HCl (Ondansetron 4 Mg/2 Ml Vial) 4 mg IV Q6HP PRN PRN Reason: NAUSEA / VOMITING Sevelamer Carbonate (Sevelamer Carbonate 800 Mg Tablet) 800 mg PO TIDWM [facility] Last Admin: 04/18/24 16:13 Dose: 800 mg Silver Sulfadiazine (Silver Sulfadiazine 1% 50 Gm) 1 appl TOP BID [facility] Last Admin: 04/18/24 09:00 Dose: 1 appl Trazodone HCl (Trazodone 50 Mg Tablet) 50 mg PO BEDTIME PRN PRN PRN Reason: INSOMNIA Last Admin: 04/13/24 01:50 Dose: 50 mg Vitamin B Complex/Vit C/Folic Acid (Multivitamins,Therapeut 1 Tab) 1 tab PO DAILY [facility] Last Admin: 04/18/24 09:53 Dose: 1 tab Microbiology Results 04/09/24 20:40 Blood - Blood Aerobic Blood Culture - Final Proteus Vulgaris 04/09/24 20:40 Blood - Blood Anaerobic Blood Culture - Final Proteus Vulgaris 04/09/24 20:40 Blood - Blood Gram Stain - Final 04/09/24 20:25 Blood - Blood Aerobic Blood Culture - Final No growth in 5 days. 04/09/24 20:25 Blood - Blood Anaerobic Blood Culture - Final No growth in 5 days. 04/09/24 21:30 Nasopharnyx Influenza Type A Antigen Screen - Final 04/09/24 21:30 Nasopharnyx Influenza Type B Antigen Screen - Final Assessment/ Plan: Nephrology No dyspnea No chest pain No acute events overnight Vitals, medications, blood work and imaging reviewed in the chart General: In no apparent distress, Oriented x3, Cooperative HEENT: Atraumatic Neck: Supple Respiratory: Normal air movement Cardiovascular: Regular rate/rhythm, Edema Gastrointestinal: Soft and benign, Non-distended Musculoskeletal: No clubbing, No contractures Integumentary: No rashes, No cyanosis, Diabetic ulcer Neurological: Normal speech Laboratory Data (last 24 hrs) 04/09/24 04/09/24 20:20 20:20 WBC 16.60 H Hgb 9.7 L Hct 29.4 L Plt Count 277 Sodium 133 L Potassium 4.6 BUN 74 H Creatinine 12.60 H Glucose 77 Total Bilirubin 0.8 AST 25 ALT 29 Alkaline Phosphatase 229 H Imagings Data: Procedure: Chest Single View HISTORY: Cough COMPARISON: 2021 FINDINGS: The lungs appear clear of acute infiltrate. No significant pleural effusion noted. The heart is mildly enlarged.. IMPRESSION: No acute abnormality is displayed. Exam:Foot Left 3 View CLINICAL HISTORY: Left foot pain FINDINGS: No fracture or dislocation seen Soft tissue swelling. No bony destructive lesion seen. Vascular calcifications. Large calcaneal spur Conclusions/Impression: ESRD on HD Hyponatremia -HD TIW -Seen and examined on HD HTN with CKD/ CHF -Continue Coreg Diastolic CHF, chronic -Low sodium diet -UF with HD DM II with CKD & Polyneuropathy -RISS DM II with Foot Ulcer -Continue Abx -ID following -Wound care as ordered Hypoalbuminemia -Continue Nepro Anemia in CKD -Retacrit qHD -Continue oral iron CKD MBD -Continue Ergo -Continue Calcitriol -Continue [facility] Hospitalist note reviewed
[2024-04-19 08:10] LABS: Absolute Basophils 0.1 K/uL (0-0.5); Absolute Eosinophils 0.3 K/uL (0-0.5); Absolute Lymphocytes (CBC) 1.7 K/uL (0.7-4.9); Absolute Monocytes 0.9 K/uL (0.1-1.3); Absolute Neutrophil 11.4 K/uL (1.8-8.0); Basophils % 0.4 % (0-1.3); Eosinophils % 2.2 % (0-4.4); Hematocrit 29.3 % (39.6-49.0); Hemoglobin 9.5 g/dL (13.6-17.9); Lymphocytes % 11.7 % (15.3-44.8); MCH 30.2 pg (27.0-35.0); MCHC 32.3 g/dL (32.0-36.0); MCV 93.4 fL (80-100); MPV 8.4 fL (7.6-11.3); Monocytes % 6.5 % (3.3-12.3); Neutrophils % 79.2 % (41.7-73.7); Platelets 324 thou/uL (152-406); RBC Red Blood Cell Count 3.14 M/uL (4.33-5.43); Red Cell Distribution Width 16.3 % (12.1-15.2)
[2024-04-19 08:29] LABS: Anion Gap 9.7 mEq/L (5.0-15.0); Magnesium 2.3 mg/dL (1.6-2.4); Phosphorus 5.6 mg/dL (2.5-4.9); Potassium 4.7 mEq/L (3.5-5.1)
[2024-04-19 08:47] LABS: Anisocytosis SLIGHT; Blood Morphology Comment NOTED (NOT SEEN); Macrocytosis SLIGHT; Platelet Estimate ADEQ; Platelets Clumped FEW; White Blood Cell Scan OK (OK)
--- NOTE | 2024-04-19 11:45 | P.PN ---
Date of Service: 04/19/24 Subjective: no acute events overnight afebrile Pending LTAC ROS: 10 point ROS as noted above, otherwise negative Physical Exam: GEN: Alert, oriented CV: Regular rate and rhythm, LLE edema Pulm: Nonlabored respirations on room air, clear bilaterally Integumentary: left lateral foot debrided ulcer with slough, surrounding skin blisters. no Neuro: Normal speech, normal affect Problem List: Sepsis secondary to Left Foot Osteomyelitis, s/p I&D (04/12) Proteus Vulgaris Bacteremia ESRD on HD MWF IDDM2 Anemia of chronic kidney disease Hyponatremia Obstructive sleep apnea Hypertension Sepsis secondary to Left Foot Osteomyelitis, s/p I&D (04/12) Proteus Vulgaris Bacteremia MRI foot (04/11): osteomyelitis of the base of the fourth and fifth metatarsals. Dr. Quintero, general surgeon is following s/p I&D with bone biopsy (04/12) Wound cx (04/10): Proteus vulgaris and Enterococcus Faecalis Surgical Wound cx (04/12): Proteus vulgaris, Enterococcus Faecalis, Escherichia Fergusoni Blood cx (04/10): Proteus Vulgaris repeat blood cx (04/15): NGTD Case discussed with nephrology Dr. Russo who suggested dual therapy with IV ceftazidime and gentamicin with dialysis if possible to avoid picc Case discussed with Dr. Godfrey who recommended to avoid gentamicin for now, and recommend cefepime and vancomycin. Moreover patient has worsening leukocytosis with a gentamicin and ceftazidime. Dr. Godfrey recommended LTAC for IV antibiotics administration as well as complex wound care management with hyperbaric oxygen. IV gentamicin/ceftazidime switched to IV cefepime and vancomycin (04/17) per ID recs Continue IV cefepime and IV vanc for now Leukocytosis improving Patient has agreed to go to LTAC pending appeal ESRD on HD MWF Nephrology is following Routine hemodialysis per nephrology. IDDM2 accu-cheks, SSI. continue semglee 15u BID; titrate as needed Anemia of chronic kidney disease. Stable. Daily labs Hyponatremia. resolved Sleep obstructive sleep apnea. CPAP during sleep Hypertension. continue home medications VTE: heparin sq Code: Full Dispo: Denied LTAC; pending P2P review / appeal. Time Spent Managing Pts Care (In Minutes): 45
--- NOTE | 2024-04-19 12:14 | EKG ---
Test Date: 2024-04-14 Test Time: 13:52:05 Cumulative Effects Analyst: MARIE MEASUREMENT RESULTS: Intervals: Rate: 60 TN: 134 QRSD: 94 QT: 440 QTc: 440 [place]: P: 23 TN: 134 QRS: -20 T: -24 INTERPRETIVE STATEMENTS: Normal sinus rhythm Inferior infarct, age undetermined Abnormal ECG Compared to ECG 04/14/2024 13:50:29 Myocardial infarct finding now present Electronically Signed On 04-19-24 12:11:06 [employer]ING [employer]ITS SUPERVISOR by Juancho Dailey
--- NOTE | 2024-04-19 19:05 | PN ---
Subjective: The patient is sitting in bed, not in any acute distress. Denies any headache, nausea, vomiting, chest pain, abdominal pain, constipation, or diarrhea. Good appetite. Objective: Vital Signs: Temperature 97, pulse 66, respirations 14, blood pressure 174/76. Lungs: Basal crackles. Heart: S1, S2. Regular. Abdomen: Soft, nontender. Bowel sounds present. Extremity: Trace edema. Laboratory Data: WBC 44690, hemoglobin 9.5, platelets are 324. Chemistry shows BUN of 44, creatinin e 7.1. Left foot wound noted. Blood cultures from 04/27 is 112 is negative. Assessment And Plan: Diabetic foot ulcer, peripheral vascular disease, diabetic neuropathy, end-stag e renal disease, left foot infection with Proteus vulgaris and enterococcus faecalis bacteremia secon edward to Proteus vulgaris. Continue antibiotic and wound care. Osteomyelitis of the left foot. We w ill follow the patient as needed. Consider long-term acute care, appeal has be done to transfer tod ent to long-term acute care. We will follow up as needed. NF/MODL Voice ID: [id number] Report ID: [id number]
--- NOTE | 2024-04-19 20:40 | P.PN ---
Date of Service: 04/19/24 Vital Signs Temp Pulse Resp BP Pulse Ox 97.8 F 62 16 174/76 H 94 04/19/24 16:00 04/19/24 17:23 04/19/24 16:00 04/19/24 17:23 04/19/24 16:00 Medications Acetaminophen (Acetaminophen 500 Mg Tab) 500 mg PO Q4HP PRN PRN Reason: TEMP > 100' F Last Admin: 04/11/24 16:23 Dose: 500 mg Aspirin (Aspirin Ec 81 Mg Tab) 81 mg PO DAILY [facility] Last Admin: 04/19/24 09:41 Dose: 81 mg Atorvastatin Calcium (Atorvastatin 40 Mg Tab) 40 mg PO BEDTIME [facility] Last Admin: 04/18/24 21:59 Dose: 40 mg Bupropion HCl (Bupropion Hcl Xl 150 Mg Tab) 300 mg PO DAILY [facility] Last Admin: 04/19/24 09:41 Dose: 300 mg Calcitriol (Calcitrol 0.25 Mcg Cap) 0.5 mcg PO DAILY [facility] Last Admin: 04/19/24 09:41 Dose: 0.5 mcg Carvedilol (Carvedilol 12.5 Mg Tab) 12.5 mg PO BID 6AM 6PM [facility] Last Admin: 04/19/24 17:23 Dose: 12.5 mg Collagenase (Collagenase 30 Gm Ointment) 1 appl TOP DAILY [facility] Last Admin: 04/19/24 14:00 Dose: 1 appl Cyclobenzaprine HCl (Cyclobenzaprine 10 Mg Tab) 10 mg PO DAILY PRN PRN Reason: MUSCLE SPASMS Docusate Sodium (Docusate Na 100 Mg Cap) 100 mg PO BID [facility] Last Admin: 04/19/24 09:41 Dose: 100 mg Enteral Nutritional Formula (Nepro Shake 237 Ml Can) 237 ml PO DAILY [facility] Last Admin: 04/19/24 09:00 Dose: 237 ml Epoetin Pierce (Epoetin Pierce 10,000 Unit/Ml Vial) 10,000 unit IV EVERY HD [facility] Last Admin: 04/18/24 13:15 Dose: 10,000 unit Ergocalciferol (Drisdol (Vitamin D=Ergocalciferol) 12013 Unit Cap) 50,000 unit PO Q7D@0900 [facility] Last Admin: 04/18/24 09:53 Dose: 50,000 unit Ferrous Gluconate (Ferrous Gluconate 324 Mg Tab) 324 mg PO BID [facility] Last Admin: 04/19/24 09:41 Dose: 324 mg Gabapentin (Gabapentin 100 Mg Cap) 300 mg PO DAILY [facility] Last Admin: 04/19/24 09:40 Dose: 300 mg Glucagon (Glucagon 1 Mg/Vial) 1 mg IM 1X PRN PRN Reason: HYPOGLYCEMIA Heparin Sodium (Porcine) (Heparin 5000 Unit/Ml 1 Ml Vial) 5,000 unit SQ Q8HR [facility] Last Admin: 04/19/24 17:15 Dose: 5,000 unit Heparin Sodium (Porcine) (Heparin 1,000 Unit/Ml Vial) 3,000 unit IV EVERY HD PRN PRN Reason: Prevent HD System Clotting Last Admin: 04/18/24 10:27 Dose: 3,000 unit Home Med (Mecobalamin [B12 Active]) 1,000 mcg PO DAILY [facility] Last Admin: 04/19/24 09:00 Dose: Not Given Hydromorphone HCl (Hydromorphone Oral 2 Mg Tab) 2 mg PO Q4H PRN PRN Reason: Pain scale 8-10 (Severe) Last Admin: 04/18/24 22:08 Dose: 2 mg Dextrose (Dextrose 10% Water Iv Soln.) 125 mls @ 0 mls/hr IV PRN PRN; Protocol PRN Reason: HYPOGLYCEMIA Albumin Human (Albumin 25%) 50 mls @ 100 mls/hr IV EVERY HD [facility] Vancomycin HCl 1 gm/ Sodium (Chloride) 250 mls @ 250 mls/hr IVPB AFTER EACH DIALYSIS [facility]; Protocol Last Admin: 04/18/24 18:40 Dose: 250 mls Cefepime HCl 1 gm/ Sodium (Chloride) 100 mls @ 200 mls/hr IV Q24H [facility]; Protocol Last Admin: 04/19/24 17:15 Dose: 100 mls Insulin Glargine (Insulin Glargine 100 Unit/Ml) 15 unit SQ BID [facility] Last Admin: 04/19/24 09:42 Dose: 15 unit Insulin Human Regular (Insulin Regular (Human) 100 Unit/Ml) 0 unit SQ ACHS [facility]; Protocol Last Admin: 04/19/24 17:15 Dose: 3 unit Lidocaine (Lidocaine 4% Patch) 1 patch TOP BEDTIME [facility] Last Admin: 04/18/24 21:00 Dose: Not Given Losartan Potassium (Losartan Potassium 50 Mg Tablet) 50 mg PO BEDTIME [facility] Last Admin: 04/18/24 21:59 Dose: 50 mg Mannitol (Mannitol 25% 12.5 Gm/50 Ml Vial) 12.5 gm IV EVERY HD PRN PRN Reason: Titrate to SBP (MUST DEFINE) Morphine Sulfate (Morphine 2 Mg/Ml Syr) 2 mg IV Q4H PRN PRN Reason: Pain scale 5-7 (Moderate) Last Admin: 04/19/24 01:10 Dose: 2 mg Ondansetron HCl (Ondansetron 4 Mg/2 Ml Vial) 4 mg IV Q6HP PRN PRN Reason: NAUSEA / VOMITING Sevelamer Carbonate (Sevelamer Carbonate 800 Mg Tablet) 800 mg PO TIDWM [facility] Last Admin: 04/19/24 18:36 Dose: 800 mg Silver Sulfadiazine (Silver Sulfadiazine 1% 50 Gm) 1 appl TOP BID [facility] Last Admin: 04/19/24 14:00 Dose: 1 appl Trazodone HCl (Trazodone 50 Mg Tablet) 50 mg PO BEDTIME PRN PRN PRN Reason: INSOMNIA Last Admin: 04/13/24 01:50 Dose: 50 mg Vitamin B Complex/Vit C/Folic Acid (Multivitamins,Therapeut 1 Tab) 1 tab PO DAILY [facility] Last Admin: 04/19/24 09:41 Dose: 1 tab Microbiology Results 04/09/24 20:40 Blood - Blood Aerobic Blood Culture - Final Proteus Vulgaris 04/09/24 20:40 Blood - Blood Anaerobic Blood Culture - Final Proteus Vulgaris 04/09/24 20:40 Blood - Blood Gram Stain - Final 04/09/24 20:25 Blood - Blood Aerobic Blood Culture - Final No growth in 5 days. 04/09/24 20:25 Blood - Blood Anaerobic Blood Culture - Final No growth in 5 days. 04/09/24 21:30 Nasopharnyx Influenza Type A Antigen Screen - Final 04/09/24 21:30 Nasopharnyx Influenza Type B Antigen Screen - Final Assessment/ Plan: Nephrology No dyspnea No chest pain No acute events overnight Vitals, medications, blood work and imaging reviewed in the chart General: In no apparent distress, Oriented x3, Cooperative HEENT: Atraumatic Neck: Supple Respiratory: Normal air movement Cardiovascular: Regular rate/rhythm, Edema Gastrointestinal: Soft and benign, Non-distended Musculoskeletal: No clubbing, No contractures Integumentary: No rashes, No cyanosis, Diabetic ulcer Neurological: Normal speech Laboratory Data (last 24 hrs) 04/09/24 04/09/24 20:20 20:20 WBC 16.60 H Hgb 9.7 L Hct 29.4 L Plt Count 277 Sodium 133 L Potassium 4.6 BUN 74 H Creatinine 12.60 H Glucose 77 Total Bilirubin 0.8 AST 25 ALT 29 Alkaline Phosphatase 229 H Imagings Data: Procedure: Chest Single View HISTORY: Cough COMPARISON: 2021 FINDINGS: The lungs appear clear of acute infiltrate. No significant pleural effusion noted. The heart is mildly enlarged.. IMPRESSION: No acute abnormality is displayed. Exam:Foot Left 3 View CLINICAL HISTORY: Left foot pain FINDINGS: No fracture or dislocation seen Soft tissue swelling. No bony destructive lesion seen. Vascular calcifications. Large calcaneal spur Conclusions/Impression: ESRD on HD Hyponatremia -HD TIW HTN with CKD/ CHF -Continue Coreg Diastolic CHF, chronic -Low sodium diet -UF with HD DM II with CKD & Polyneuropathy -RISS DM II with Foot Ulcer -Continue Abx -ID following -Wound care as ordered Hypoalbuminemia -Continue Nepro Anemia in CKD -Retacrit qHD -Continue oral iron CKD MBD -Continue Ergo -Continue Calcitriol -Continue Mya Hospitalist note reviewed
[2024-04-20 05:18] LABS: Absolute Basophils 0.1 K/uL (0-0.5); Absolute Eosinophils 0.4 K/uL (0-0.5); Absolute Lymphocytes (CBC) 1.2 K/uL (0.7-4.9); Absolute Monocytes 0.9 K/uL (0.1-1.3); Absolute Neutrophil 9.7 K/uL (1.8-8.0); Basophils % 0.8 % (0-1.3); Eosinophils % 2.9 % (0-4.4); Hematocrit 29.5 % (39.6-49.0); Hemoglobin 9.6 g/dL (13.6-17.9); MCH 30.5 pg (27.0-35.0); MCHC 32.3 g/dL (32.0-36.0); MCV 94.3 fL (80-100); MPV 8.3 fL (7.6-11.3); Neutrophils % 79.3 % (41.7-73.7); Platelets 319 thou/uL (152-406); RBC Red Blood Cell Count 3.13 M/uL (4.33-5.43); Red Cell Distribution Width 16.1 % (12.1-15.2)
[2024-04-20 05:32] LABS: Anion Gap 14.8 mEq/L (5.0-15.0); Magnesium 2.1 mg/dL (1.6-2.4); Phosphorus 6.5 mg/dL (2.5-4.9); Potassium 4.8 mEq/L (3.5-5.1)
--- NOTE | 2024-04-20 11:48 | P.PN ---
Date of Service: 04/20/24 Subjective: no acute events slowly improving ROS: 10 point ROS as noted above, otherwise negative Physical Exam: GEN: Alert, oriented CV: Regular rate and rhythm, LLE edema Pulm: Nonlabored respirations on room air, clear bilaterally Integumentary: left lateral foot debrided ulcer with slough, surrounding skin blisters. no purulent drainage Neuro: Normal speech, normal affect Problem List: Sepsis secondary to Left Foot Osteomyelitis, s/p I&D (04/12) Proteus Vulgaris Bacteremia ESRD on HD MWF IDDM2 Anemia of chronic kidney disease Hyponatremia Obstructive sleep apnea Hypertension Sepsis secondary to Left Foot Osteomyelitis, s/p I&D (04/12) Proteus Vulgaris Bacteremia MRI foot (04/11): osteomyelitis of the base of the fourth and fifth metatarsals. Dr. Quintero, general surgeon is following s/p I&D with bone biopsy (04/12) Wound cx (04/10): Proteus vulgaris and Enterococcus Faecalis Surgical Wound cx (04/12): Proteus vulgaris, Enterococcus Faecalis, Escherichia Fergusoni Blood cx (04/10): Proteus Vulgaris repeat blood cx (04/15): NGTD Case discussed with nephrology Dr. Russo who suggested dual therapy with IV ceftazidime and gentamicin with dialysis if possible to avoid picc Case discussed with Dr. Godfrey who recommended to avoid gentamicin for now, and recommend cefepime and vancomycin. Moreover patient has worsening leukocytosis with a gentamicin and ceftazidime. Dr. Godfrey recommended LTAC for IV antibiotics administration as well as complex wound care management with hyperbaric oxygen. IV gentamicin/ceftazidime switched to IV cefepime and vancomycin (04/17) per ID recs Continue IV cefepime and IV vanc for now Leukocytosis improving Patient has agreed to go to LTAC pending appeal ESRD on HD MWF Nephrology is following Routine hemodialysis per nephrology. IDDM2 accu-cheks, SSI. continue semglee 15u BID; titrate as needed Anemia of chronic kidney disease. Stable. Daily labs Hyponatremia. resolved Sleep obstructive sleep apnea. CPAP during sleep Hypertension. continue home medications VTE: heparin sq Code: Full Dispo: Denied LTAC; pending appeal. Time Spent Managing Pts Care (In Minutes): 45
[2024-04-20] MEDS: VANCOMYCIN 500 MG in NA CHLORIDE 0.9% 100 ML IVPB SCH (17:43)
--- NOTE | 2024-04-20 18:05 | PN ---
Subjective: The patient is lying in bed. No new acute event. Chart reviewed. Objective: Vital Signs: Temperature 97, pulse 64, respirations 16, blood pressure 143/71. Lungs: Basal crackles. Heart: S1, S2. Regular. Abdomen: Soft, nontender. Bowel sounds present. Extremities: Trace edema. Wound noted. Laboratory Data: Shows WBC 12.3, hemoglobin 9.6, platelets 319. BUN of 50, creatinine 8.3. Patient with multi organism left foot culture with Proteus vulgaris, Enterococcus faecalis and E coli, Esche richia fergusonii and left foot wound is Proteus vulgaris and enterococcus faecalis. Blood cultures are positive for Proteus vulgaris. The patient is currently being treated with IV cefepime and vancomycin. Assessment And Plan: End-stage renal disease with diabetic foot ulcer and diabetic neuropathy, multi organism involvement. Recommend to continue IV antibiotic for 6 weeks for osteomyelitis and hyperba kandis treatment and daily wound care. We will follow the patient as needed. Leukocytosis. We will fo llow the patient as needed. NF/MODL Voice ID: [id number] Report ID: [id number]
--- NOTE | 2024-04-20 21:59 | P.PN ---
Date of Service: 04/20/24 Vital Signs Temp Pulse Resp BP Pulse Ox 97.3 F 76 16 151/72 H 99 04/20/24 16:00 04/20/24 16:00 04/20/24 16:36 04/20/24 16:00 04/20/24 16:36 Medications Acetaminophen (Acetaminophen 500 Mg Tab) 500 mg PO Q4HP PRN PRN Reason: TEMP > 100' F Last Admin: 04/11/24 16:23 Dose: 500 mg Aspirin (Aspirin Ec 81 Mg Tab) 81 mg PO DAILY [facility] Last Admin: 04/20/24 09:51 Dose: 81 mg Atorvastatin Calcium (Atorvastatin 40 Mg Tab) 40 mg PO BEDTIME [facility] Last Admin: 04/19/24 22:18 Dose: 40 mg Bupropion HCl (Bupropion Hcl Xl 150 Mg Tab) 300 mg PO DAILY [facility] Last Admin: 04/20/24 09:51 Dose: 300 mg Calcitriol (Calcitrol 0.25 Mcg Cap) 0.5 mcg PO DAILY [facility] Last Admin: 04/20/24 09:51 Dose: 0.5 mcg Carvedilol (Carvedilol 12.5 Mg Tab) 12.5 mg PO BID 6AM 6PM [facility] Last Admin: 04/20/24 17:42 Dose: 12.5 mg Collagenase (Collagenase 30 Gm Ointment) 1 appl TOP DAILY [facility] Last Admin: 04/20/24 09:52 Dose: 1 appl Cyclobenzaprine HCl (Cyclobenzaprine 10 Mg Tab) 10 mg PO DAILY PRN PRN Reason: MUSCLE SPASMS Docusate Sodium (Docusate Na 100 Mg Cap) 100 mg PO BID [facility] Last Admin: 04/20/24 09:51 Dose: 100 mg Enteral Nutritional Formula (Nepro Shake 237 Ml Can) 237 ml PO DAILY [facility] Last Admin: 04/20/24 09:00 Dose: 237 ml Epoetin Pierce (Epoetin Pierce 10,000 Unit/Ml Vial) 10,000 unit IV EVERY HD [facility] Last Admin: 04/20/24 13:45 Dose: 10,000 unit Ergocalciferol (Drisdol (Vitamin D=Ergocalciferol) 23270 Unit Cap) 50,000 unit PO Q7D@0900 [facility] Last Admin: 04/18/24 09:53 Dose: 50,000 unit Ferrous Gluconate (Ferrous Gluconate 324 Mg Tab) 324 mg PO BID [facility] Last Admin: 04/20/24 09:51 Dose: 324 mg Gabapentin (Gabapentin 100 Mg Cap) 300 mg PO DAILY [facility] Last Admin: 04/20/24 09:51 Dose: 300 mg Glucagon (Glucagon 1 Mg/Vial) 1 mg IM 1X PRN PRN Reason: HYPOGLYCEMIA Heparin Sodium (Porcine) (Heparin 5000 Unit/Ml 1 Ml Vial) 5,000 unit SQ Q8HR [facility] Last Admin: 04/20/24 16:36 Dose: 5,000 unit Heparin Sodium (Porcine) (Heparin 1,000 Unit/Ml Vial) 3,000 unit IV EVERY HD PRN PRN Reason: Prevent HD System Clotting Last Admin: 04/20/24 10:57 Dose: 3,000 unit Home Med (Mecobalamin [B12 Active]) 1,000 mcg PO DAILY [facility] Last Admin: 04/20/24 09:00 Dose: Not Given Hydromorphone HCl (Hydromorphone Oral 2 Mg Tab) 2 mg PO Q4H PRN PRN Reason: Pain scale 8-10 (Severe) Last Admin: 04/19/24 22:27 Dose: 2 mg Dextrose (Dextrose 10% Water Iv Soln.) 125 mls @ 0 mls/hr IV PRN PRN; Protocol PRN Reason: HYPOGLYCEMIA Albumin Human (Albumin 25%) 50 mls @ 100 mls/hr IV EVERY HD [facility] Cefepime HCl 1 gm/ Sodium (Chloride) 100 mls @ 200 mls/hr IV Q24H [facility]; Protocol Last Admin: 04/20/24 17:42 Dose: 100 mls Vancomycin HCl 500 mg/ Sodium (Chloride) 100 mls @ 100 mls/hr IVPB AFTER EACH DIALYSIS [facility]; Protocol Insulin Glargine (Insulin Glargine 100 Unit/Ml) 15 unit SQ BID [facility] Last Admin: 04/20/24 09:52 Dose: 15 unit Insulin Human Regular (Insulin Regular (Human) 100 Unit/Ml) 0 unit SQ ACHS [facility]; Protocol Last Admin: 04/20/24 16:28 Dose: Not Given Lidocaine (Lidocaine 4% Patch) 1 patch TOP BEDTIME [facility] Last Admin: 04/19/24 21:00 Dose: Not Given Losartan Potassium (Losartan Potassium 50 Mg Tablet) 50 mg PO BEDTIME [facility] Last Admin: 04/19/24 22:19 Dose: 50 mg Mannitol (Mannitol 25% 12.5 Gm/50 Ml Vial) 12.5 gm IV EVERY HD PRN PRN Reason: Titrate to SBP (MUST DEFINE) Morphine Sulfate (Morphine 2 Mg/Ml Syr) 2 mg IV Q4H PRN PRN Reason: Pain scale 5-7 (Moderate) Last Admin: 04/20/24 16:36 Dose: 2 mg Ondansetron HCl (Ondansetron 4 Mg/2 Ml Vial) 4 mg IV Q6HP PRN PRN Reason: NAUSEA / VOMITING Sevelamer Carbonate (Sevelamer Carbonate 800 Mg Tablet) 800 mg PO TIDWM [facility] Last Admin: 04/20/24 16:36 Dose: 800 mg Silver Sulfadiazine (Silver Sulfadiazine 1% 50 Gm) 1 appl TOP BID [facility] Last Admin: 04/20/24 09:00 Dose: Not Given Trazodone HCl (Trazodone 50 Mg Tablet) 50 mg PO BEDTIME PRN PRN PRN Reason: INSOMNIA Last Admin: 04/13/24 01:50 Dose: 50 mg Vitamin B Complex/Vit C/Folic Acid (Multivitamins,Therapeut 1 Tab) 1 tab PO DAILY [facility] Last Admin: 04/20/24 09:51 Dose: 1 tab Microbiology Results 04/09/24 20:40 Blood - Blood Aerobic Blood Culture - Final Proteus Vulgaris 04/09/24 20:40 Blood - Blood Anaerobic Blood Culture - Final Proteus Vulgaris 04/09/24 20:40 Blood - Blood Gram Stain - Final 04/09/24 20:25 Blood - Blood Aerobic Blood Culture - Final No growth in 5 days. 04/09/24 20:25 Blood - Blood Anaerobic Blood Culture - Final No growth in 5 days. 04/09/24 21:30 Nasopharnyx Influenza Type A Antigen Screen - Final 04/09/24 21:30 Nasopharnyx Influenza Type B Antigen Screen - Final Assessment/ Plan: Nephrology No dyspnea No chest pain No acute events overnight Vitals, medications, blood work and imaging reviewed in the chart General: In no apparent distress, Oriented x3, Cooperative HEENT: Atraumatic Neck: Supple Respiratory: Normal air movement Cardiovascular: Regular rate/rhythm, Edema Gastrointestinal: Soft and benign, Non-distended Musculoskeletal: No clubbing, No contractures Integumentary: No rashes, No cyanosis, Diabetic ulcer Neurological: Normal speech Laboratory Data (last 24 hrs) 04/09/24 04/09/24 20:20 20:20 WBC 16.60 H Hgb 9.7 L Hct 29.4 L Plt Count 277 Sodium 133 L Potassium 4.6 BUN 74 H Creatinine 12.60 H Glucose 77 Total Bilirubin 0.8 AST 25 ALT 29 Alkaline Phosphatase 229 H Imagings Data: Procedure: Chest Single View HISTORY: Cough COMPARISON: 2021 FINDINGS: The lungs appear clear of acute infiltrate. No significant pleural effusion noted. The heart is mildly enlarged.. IMPRESSION: No acute abnormality is displayed. Exam:Foot Left 3 View CLINICAL HISTORY: Left foot pain FINDINGS: No fracture or dislocation seen Soft tissue swelling. No bony destructive lesion seen. Vascular calcifications. Large calcaneal spur Conclusions/Impression: ESRD on HD Hyponatremia -HD TIW HTN with CKD/ CHF -Continue Coreg ANA -CPAP qhs Diastolic CHF, chronic -Low sodium diet -UF with HD DM II with CKD & Polyneuropathy -RISS DM II with Foot Ulcer -Continue Abx -ID following -Wound care as ordered Hypoalbuminemia -Continue Nepro Anemia in CKD -Retacrit qHD -Continue oral iron CKD MBD -Continue Ergo -Continue Calcitriol -Continue Renvela Hospitalist note reviewed Case reviewed with the hospitalist team
[2024-04-21 06:39] LABS: Hemoglobin 9.8 g/dL (13.6-17.9); MCH 30.9 pg (27.0-35.0); MCHC 32.6 g/dL (32.0-36.0); MCV 94.7 fL (80-100); MPV 8.1 fL (7.6-11.3); Platelets 314 thou/uL (152-406); RBC Red Blood Cell Count 3.17 M/uL (4.33-5.43)
[2024-04-21 06:52] LABS: Anion Gap 11.7 mEq/L (5.0-15.0); Magnesium 2.1 mg/dL (1.6-2.4); Potassium 4.7 mEq/L (3.5-5.1)
--- NOTE | 2024-04-21 11:00 | P.PN ---
Date of Service: 04/21/24 Subjective: denies any new / worsening issues pending LTAC appeal afebrile ROS: 10 point ROS as noted above, otherwise negative Physical Exam: GEN: Alert, oriented CV: Regular rate and rhythm, LLE edema Pulm: Nonlabored respirations on room air, clear bilaterally Integumentary: left lateral foot ulcer with slough, surrounding skin blisters. no purulent drainage Neuro: Normal speech, normal affect Problem List: Sepsis secondary to Left Foot Osteomyelitis, s/p I&D (04/12) Proteus Vulgaris Bacteremia ESRD on HD MWF IDDM2 Anemia of chronic kidney disease Hyponatremia Obstructive sleep apnea Hypertension Sepsis secondary to Left Foot Osteomyelitis, s/p I&D (04/12) Proteus Vulgaris Bacteremia MRI foot (04/11): osteomyelitis of the base of the fourth and fifth metatarsals. Dr. Quintero, general surgeon is following s/p I&D with bone biopsy (04/12) Wound cx (04/10): Proteus vulgaris and Enterococcus Faecalis Surgical Wound cx (04/12): Proteus vulgaris, Enterococcus Faecalis, Escherichia Fergusoni Blood cx (04/10): Proteus Vulgaris repeat blood cx (04/15): NGTD Case discussed with nephrology Dr. Russo who suggested dual therapy with IV ceftazidime and gentamicin with dialysis if possible to avoid picc Case discussed with Dr. Godfrey who recommended to avoid gentamicin for now, and recommend cefepime and vancomycin. Moreover patient has worsening leukocytosis with a gentamicin and ceftazidime. Dr. Godfrey recommended LTAC for IV antibiotics administration as well as complex wound care management with hyperbaric oxygen. IV gentamicin/ceftazidime switched to IV cefepime and vancomycin (04/17) per ID recs Continue IV cefepime and IV vanc for now Patient has agreed to go to LTAC pending appeal ESRD on HD MWF Nephrology is following Routine hemodialysis per nephrology. IDDM2 accu-cheks, SSI. continue semglee 15u BID; titrate as needed Anemia of chronic kidney disease. Stable. Daily labs Hyponatremia. resolved Sleep obstructive sleep apnea. CPAP during sleep Hypertension. continue home medications VTE: heparin sq Code: Full Dispo: Denied LTAC; pending appeal. Time Spent Managing Pts Care (In Minutes): 45
--- NOTE | 2024-04-21 11:16 | PN ---
Date of Progress Note: 04/21/2024 The patient is seen in room 224 at [facility] in [place]. Subjective: The patient is alert, awake, comfortable, very pleasant, speaks in full sentences. Ranjan es any headache, nausea, vomiting. Last dialysis was yesterday and patient tolerated well. The tod ent's blood pressure has been running on the higher side with the readings of systolic in the 140-170 range. He is on antibiotics for his left foot infection. The patient's foot is cleanly dressed cur rently. Objective: General: The patient is alert, awake. Denies any pain. Vital Signs: Currently blood pressure last was 173/72, before that 181/74, pulse is about 60-70 and regular, respirations around 14-16 and comfortable. He is afebrile. O2 sats are 99% on room air. Lungs: Clear. Abdomen: Soft. Extremities: Reveal trace edema and venous congestion and venous stasis changes that are chronic on the lower extremities. Lab Work: Showed WBC count of 13.2, hemoglobin 9.8, hematocrit 30, platelet count of 314. Sodium 13 4, potassium 4.7, chloride 101, bicarb is 26, BUN is 32, creatinine is 6.61, calcium is about 8.5, bu t corrected calcium for his albumin of 2.0 is in normal range. The patient is awaiting LTAC placemen t. He is currently on antibiotics. An ID consultation has been obtained for his left foot infection . Assessment/plan: 1.End-stage renal disease, currently stable. Volume status is okay. Blood pressure is slightly on the higher side. Ultrafiltration with dialysis. Next dialysis planned for Tuesday. Tolerated last d ialysis well. No need for acute dialysis currently. 2.Electrolytes; sodium and potassium seemed reasonable. Continue to ultrafiltrate with dialysis as tolerated. 3.Left foot infection, on cefepime and vancomycin. Dr. Godfrey following from ID. Adjust vancomycin as needed to keep level between 15-20. The patient is currently overall improving. May need longer course of antibiotic for a few weeks and may need LTAC placement for that. 4.The patient with elevated blood pressure. We will go ahead and add low-dose amlodipine with morena eters. May increase it to 5 mg as tolerated if blood pressure continues to stay above 150 systolic. Discussed plan with hospitalist team as well. /JIMMY Voice ID: [id number] Report ID: [id number]
[2024-04-22] MEDS: AMLODIPINE 2.5 MG TAB PO SCH (09:29)
[2024-04-22] MEDS: HYDROCODONE/APAP 5/325 MG TAB PO PRN (09:30)
--- NOTE | 2024-04-22 13:00 | P.PN ---
Date of Service: 04/22/24 Subjective: no new issues pending LTAC appeal ROS: 10 point ROS as noted above, otherwise negative Physical Exam: GEN: Alert, oriented CV: Regular rate and rhythm, LLE edema Pulm: Nonlabored respirations on room air, clear bilaterally Integumentary: left lateral foot ulcer with fibrin tissue, surrounding skin blisters. no purulent drainage Neuro: Normal speech, normal affect Problem List: Sepsis secondary to Left Foot Osteomyelitis, s/p I&D (04/12) Proteus Vulgaris Bacteremia ESRD on HD MWF IDDM2 Anemia of chronic kidney disease Hyponatremia Obstructive sleep apnea Hypertension Sepsis secondary to Left Foot Osteomyelitis, s/p I&D (04/12) Proteus Vulgaris Bacteremia MRI foot (04/11): osteomyelitis of the base of the fourth and fifth metatarsals. Dr. Quintero, general surgeon is following s/p I&D with bone biopsy (04/12) Wound cx (04/10): Proteus vulgaris and Enterococcus Faecalis Surgical Wound cx (04/12): Proteus vulgaris, Enterococcus Faecalis, Escherichia Fergusoni Blood cx (04/10): Proteus Vulgaris repeat blood cx (04/15): NGTD Case discussed with nephrology Dr. Russo who suggested dual therapy with IV ceftazidime and gentamicin with dialysis if possible to avoid picc Case discussed with Dr. Godfrey who recommended to avoid gentamicin for now, and recommend cefepime and vancomycin. Moreover patient has worsening leukocytosis with a gentamicin and ceftazidime. Dr. Godfrey recommended LTAC for IV antibiotics administration as well as complex wound care management with hyperbaric oxygen. IV gentamicin/ceftazidime switched to IV cefepime and vancomycin (04/17) per ID recs Continue IV cefepime and IV vanc for now Patient has agreed to go to LTAC pending appeal ESRD on HD MWF Nephrology is following Routine hemodialysis per nephrology. IDDM2 accu-cheks, SSI. continue semglee 15u BID; titrate as needed Anemia of chronic kidney disease. Stable. Daily labs Hyponatremia. resolved Sleep obstructive sleep apnea. CPAP during sleep Hypertension. continue home medications VTE: heparin sq Code: Full Dispo: Denied LTAC; pending appeal. Time Spent Managing Pts Care (In Minutes): 45
[2024-04-23 05:39] LABS: Hematocrit 31.3 % (39.6-49.0); Hemoglobin 10.1 g/dL (13.6-17.9); MCH 30.5 pg (27.0-35.0); MCHC 32.3 g/dL (32.0-36.0); MCV 94.4 fL (80-100); MPV 8.1 fL (7.6-11.3); Platelets 299 thou/uL (152-406); RBC Red Blood Cell Count 3.32 M/uL (4.33-5.43); Red Cell Distribution Width 15.9 % (12.1-15.2)
[2024-04-23 06:23] LABS: Anion Gap 14.8 mEq/L (5.0-15.0); Magnesium 2.2 mg/dL (1.6-2.4); Potassium 4.8 mEq/L (3.5-5.1)
--- NOTE | 2024-04-23 10:52 | P.PN ---
Date of Service: 04/23/24 Subjective: denies new / worsening problems pending LTAC appeal afebrile ROS: 10 point ROS as noted above, otherwise negative Physical Exam: GEN: Alert, oriented CV: Regular rate and rhythm, ,mild LLE edema Pulm: Nonlabored respirations on room air, clear bilaterally Integumentary: left lateral foot ulcer with fibrin tissue, surrounding skin blisters. no purulent drainage Neuro: Normal speech, normal affect Problem List: Sepsis secondary to Left Foot Osteomyelitis, s/p I&D (04/12) Proteus Vulgaris Bacteremia ESRD on HD MWF IDDM2 Anemia of chronic kidney disease Hyponatremia Obstructive sleep apnea Hypertension Sepsis secondary to Left Foot Osteomyelitis, s/p I&D (04/12) Proteus Vulgaris Bacteremia MRI foot (04/11): osteomyelitis of the base of the fourth and fifth metatarsals. Dr. Quintero, general surgeon is following s/p I&D with bone biopsy (04/12) Wound cx (04/10): Proteus vulgaris and Enterococcus Faecalis Surgical Wound cx (04/12): Proteus vulgaris, Enterococcus Faecalis, Escherichia Fergusoni Blood cx (04/10): Proteus Vulgaris repeat blood cx (04/15): NGTD Case discussed with nephrology Dr. Russo who suggested dual therapy with IV ceftazidime and gentamicin with dialysis if possible to avoid picc Case discussed with Dr. Godfrey who recommended to avoid gentamicin for now, and recommend cefepime and vancomycin. Moreover patient has worsening leukocytosis with a gentamicin and ceftazidime. Dr. Godfrey recommended LTAC for IV antibiotics administration as well as complex wound care management with hyperbaric oxygen. IV gentamicin/ceftazidime switched to IV cefepime and vancomycin (04/17) per ID recs Continue IV cefepime and IV vanc for now Patient has agreed to go to LTAC pending appeal ESRD on HD MWF Nephrology is following Routine hemodialysis per nephrology. IDDM2 accu-cheks, SSI. continue semglee 15u BID; titrate as needed Anemia of chronic kidney disease. Stable. Daily labs Hyponatremia. resolved Sleep obstructive sleep apnea. CPAP during sleep Hypertension. continue home medications VTE: heparin sq Code: Full Dispo: Denied LTAC; pending appeal. Time Spent Managing Pts Care (In Minutes): 45
--- NOTE | 2024-04-23 15:56 | PN ---
Subjective: The patient lying in bed. No new complaints. Objective: Vital Signs: Temperature 97, pulse 65, respirations 12, blood pressure 131/53. Lungs: Clear to auscultation. Heart: S1, S2. Regular. Abdomen: Soft, nontender. Bowel sounds present. Extremities: Wound noted. Laboratory Data: WBC 14.8, hemoglobin 10, platelets are 299. Chemistry, BUN of 48, creatinine 9.8. Current Medications: Include cefepime and vancomycin. Assessment And Plan: Left foot osteomyelitis status post I and D on April 12. Proteus vulgaris aure teremia, end-stage renal disease, diabetes mellitus, anemia of chronic disease, morbid obesity, obstr uctive sleep apnea, leukocytosis. Continue current treatment patient. He needs long-term acute care with hyperbaric oxygen therapy. We will follow the patient as needed. NF/MODL Voice ID: [id number] Report ID: [id number]
--- NOTE | 2024-04-23 16:30 | P.PN ---
Nephrology note (S) Delayed entry note, pt seen earlier this AM, no acute complaints then, cont to receive IV Abx for the osteo, no CP, dyspnea Vitals reviewed in the EMR General: In no apparent distress HEENT: Atraumatic, Normocephalic, Other (vision impairment), not on O2 Neck: Non tender Respiratory: Mostly Clear to auscultation bilaterally, Normal air movement Cardiovascular: Regular rate/rhythm, Mild william noted, Lt LE > Rt Gastrointestinal: Soft and benign, Non-distended, No guarding Musculoskeletal: (Rt UE AVF with bruit) Integumentary: Other (Lt foot dressed extensively, see surgical op report and other wound care notes for full details) Neurological: Normal speech, Normal tone, Normal affect Laboratory Data (last 24 hrs) Reviewed in the EMR Conclusions/Impression: A/P) 1. ESRD 2nd to chronic conditions, on iHD MWF, HD orders updated, see orders for details, stable pre dialysis labs 2. Azotemia 2nd to renal failure -will clear with HD 3. Chronic HTN with CKD -history of labile BP, no intra dialytic hypotension noted recently 4. Left foot soft tissue infection with necrosis, persistent, DFU (multiple), osteomyelitis, unspecified. Fever, leukocytosis unspecified, improved. Cont Abx as ordered by IM/ID, dose for reduced CrCl 5. Anemia 2nd to CKD, inflammation, other -monitor closely, currently Hb > 10
[2024-04-24] MEDS: VANCOMYCIN 500 MG in NA CHLORIDE 0.9% 100 ML IVPB SCH (00:28)
[2024-04-24 04:30] LABS: Absolute Basophils 0.1 K/uL (0-0.5); Absolute Eosinophils 0.3 K/uL (0-0.5); Absolute Lymphocytes (CBC) 1.2 K/uL (0.7-4.9); Absolute Monocytes 0.8 K/uL (0.1-1.3); Absolute Neutrophil 14.3 K/uL (1.8-8.0); Basophils % 0.6 % (0-1.3); Eosinophils % 1.8 % (0-4.4); Hematocrit 32.7 % (39.6-49.0); Hemoglobin 10.5 g/dL (13.6-17.9); Lymphocytes % 7.3 % (15.3-44.8); MCV 93.8 fL (80-100); Monocytes % 5.1 % (3.3-12.3); Neutrophils % 85.2 % (41.7-73.7); Platelets 258 thou/uL (152-406); RBC Red Blood Cell Count 3.49 M/uL (4.33-5.43); Red Cell Distribution Width 16.8 % (12.1-15.2)
[2024-04-24 04:44] LABS: Albumin 2.2 g/dL (3.4-5.0); Anion Gap 12.3 mEq/L (5.0-15.0); Magnesium 1.8 mg/dL (1.6-2.4); Phosphorus 4.2 mg/dL (2.5-4.9); Potassium 4.3 mEq/L (3.5-5.1)
[2024-04-24 05:19] LABS: Band Neutrophils 2 % (0-1); Basophilic Stippling 1+; Blood Morphology Comment NOTED (NOT SEEN); Differential Total Cells Count 100; Eosinophils 2 % (0-3); Lymphocytes 11 % (15-42); Monocytes 3 % (0-10); Platelet Estimate ADEQ; Reactive Lymphocytes 1 %; Segmented Neutrophils 81 % (40-80)
--- NOTE | 2024-04-24 17:33 | P.PN ---
Subjective Date of Service: 04/24/24 Chief Complaint: left foot pain redness Patient denies any complaint today. No recorded fever. He states his right leg swelling and pain have significantly improved. Physical Examination - Vital Signs Temperature: 98.7 F Blood Pressure: 141/65 Pulse: 71 Respirations: 16 Pulse Ox (%): 98 Assessment And Plan - Plan Physical examination General: Alert and oriented x3, NAD. Heart: Heart sounds 1 and 2 normal, regular rhythm, normal rate, no pedal edema Lungs: Clear to auscultation bilaterally, adequate breath sounds bilaterally, no rhonchi or crackles. Abdomen: Soft, obese, nondistended, nontender, normal bowel sounds. Extremities: No tenderness, left foot with clean dressing Neuro: No focal motor deficit. Psychiatry: Normal mood, no agitation. Problem List: Sepsis secondary to Left Foot Osteomyelitis, s/p I&D (04/12) Proteus Vulgaris Bacteremia ESRD on HD MWF IDDM2 Anemia of chronic kidney disease Hyponatremia Obstructive sleep apnea Hypertension Plan: Sepsis secondary to Left Foot Osteomyelitis, s/p I&D (04/12) Proteus Vulgaris Bacteremia MRI foot (04/11): osteomyelitis of the base of the fourth and fifth metatarsals. Dr. Quintero, general surgeon is following s/p I&D with bone biopsy (04/12) Wound cx (04/10): Proteus vulgaris and Enterococcus Faecalis Surgical Wound cx (04/12): Proteus vulgaris, Enterococcus Faecalis, Escherichia Fergusoni Blood cx (04/10): Proteus Vulgaris Repeat blood cx (04/15): NGTD Nephrology Dr. Russo suggested dual therapy with IV ceftazidime and gentamicin with dialysis if possible to avoid picc Case discussed with Dr. Godfrey who recommended to avoid gentamicin for now, and recommend cefepime and vancomycin. Moreover patient has worsening leukocytosis with a gentamicin and ceftazidime. Dr. Godfrey recommended LTAC for IV antibiotics administration as well as complex wound care management with hyperbaric oxygen. IV gentamicin/ceftazidime switched to IV cefepime and vancomycin (04/17) per ID recs Continue IV cefepime and IV vanc for now Insurance denied LTAC. Decision is being appealed. ESRD on HD MWF Nephrology is following Routine hemodialysis per nephrology. IDDM2 Blood sugar readings within normal range. accu-cheks, SSI. continue semglee 15u BID; titrate as needed Anemia of chronic kidney disease. Stable. Daily labs Hyponatremia. resolved Sleep obstructive sleep apnea. CPAP during sleep Hypertension. continue home medications VTE: heparin sq Code: Full Dispo: Denied LTAC; pending appeal. Time Spent Managing Pts Care (In Minutes): 45
[2024-04-24] MEDS: CEFEPIME 1 GM in NA CHLORIDE 0.9% 100 ML IV ONE (21:15)
[2024-04-25 01:19] VITALS: O2SAT 96
[2024-04-25 04:30] VITALS: BMI 43.1
[2024-04-25] MEDS: CEFEPIME 1 GM in NA CHLORIDE 0.9% 100 ML IV SCH (17:59)
--- NOTE | 2024-04-25 18:34 | P.PN ---
Subjective Date of Service: 04/25/24 Chief Complaint: left foot pain redness Patient denies any complaint today. No recorded fever. No issues overnight. Physical Examination - Vital Signs Temperature: 97.7 F Blood Pressure: 156/71 Pulse: 76 Respirations: 16 Pulse Ox (%): 92 Assessment And Plan - Plan Physical examination General: Alert and oriented x3, NAD. Heart: Heart sounds 1 and 2 normal, regular rhythm, normal rate, no pedal edema Lungs: Clear to auscultation bilaterally, adequate breath sounds bilaterally, no rhonchi or crackles. Abdomen: Soft, obese, nondistended, nontender, normal bowel sounds. Extremities: No tenderness, left foot with clean dressing Neuro: No focal motor deficit. Psychiatry: Normal mood, no agitation. Problem List: Sepsis secondary to Left Foot Osteomyelitis, s/p I&D (04/12) Proteus Vulgaris Bacteremia ESRD on HD MWF IDDM2 Anemia of chronic kidney disease Hyponatremia Obstructive sleep apnea Hypertension Plan: Sepsis secondary to Left Foot Osteomyelitis, s/p I&D (04/12) Proteus Vulgaris Bacteremia MRI foot (04/11): osteomyelitis of the base of the fourth and fifth metatarsals. Dr. Quintero, general surgeon is following s/p I&D with bone biopsy (04/12) Wound cx (04/10): Proteus vulgaris and Enterococcus Faecalis Surgical Wound cx (04/12): Proteus vulgaris, Enterococcus Faecalis, Escherichia Fergusoni Blood cx (04/10): Proteus Vulgaris Repeat blood cx (04/15): NGTD Nephrology Dr. Russo suggested dual therapy with IV ceftazidime and gentamicin with dialysis if possible to avoid picc Case discussed with Dr. Godfrey who recommended to avoid gentamicin for now, and recommend cefepime and vancomycin. Moreover patient has worsening leukocytosis with a gentamicin and ceftazidime. Dr. Godfrey recommended LTAC for IV antibiotics administration as well as complex wound care management with hyperbaric oxygen. IV gentamicin/ceftazidime switched to IV cefepime and vancomycin (04/17) per ID recs Continue IV cefepime and IV vanc for now Insurance denied LTAC. Appeal also denied. Patient agrees to go to SNF for IV antibiotics and wound care. Midline was recommended but patient was evaluated by the PICC breeder service technician and patient considered not a candidate for midline given history of AV graft on the other arm. Options for long-term IV access is limited Case discussed with Dr. Russo who mentioned possibility of tunneled central line. Will discuss with general surgery for tunneled central line placement. ESRD on HD MWF Nephrology is following Routine hemodialysis per nephrology. IDDM2 Blood sugar readings within normal range. accu-cheks, SSI. continue semglee 15u BID; titrate as needed Anemia of chronic kidney disease. Stable. Daily labs Hyponatremia. resolved Sleep obstructive sleep apnea. CPAP during sleep Hypertension. continue home medications VTE: heparin sq Code: Full Dispo: Denied LTAC; pending appeal. Time Spent Managing Pts Care (In Minutes): 45
--- NOTE | 2024-04-25 21:45 | P.PN ---
Date of Service: 04/25/24 Vital Signs Temp Pulse Resp BP Pulse Ox 99.4 F 74 18 130/61 93 04/25/24 20:00 04/25/24 20:00 04/25/24 20:00 04/25/24 20:00 04/25/24 20:00 Medications Acetaminophen (Acetaminophen 500 Mg Tab) 500 mg PO Q4HP PRN PRN Reason: TEMP > 100' F Last Admin: 04/11/24 16:23 Dose: 500 mg Hydrocodone Bitart/Acetaminophen (Hydrocodone/Apap 5/325 Mg Tab) 1 tab PO Q6H PRN PRN Reason: Pain scale 5-7 (Moderate) Last Admin: 04/25/24 17:56 Dose: 1 tab Amlodipine Besylate (Amlodipine 2.5 Mg Tab) 2.5 mg PO DAILY [facility] Stop: 05/06/24 09:01 Last Admin: 04/25/24 09:00 Dose: Not Given Aspirin (Aspirin Ec 81 Mg Tab) 81 mg PO DAILY [facility] Last Admin: 04/25/24 09:00 Dose: Not Given Atorvastatin Calcium (Atorvastatin 40 Mg Tab) 40 mg PO BEDTIME [facility] Last Admin: 04/25/24 20:40 Dose: 40 mg Bupropion HCl (Bupropion Hcl Xl 150 Mg Tab) 300 mg PO DAILY [facility] Last Admin: 04/25/24 09:00 Dose: Not Given Calcitriol (Calcitrol 0.25 Mcg Cap) 0.5 mcg PO DAILY [facility] Last Admin: 04/25/24 09:00 Dose: Not Given Carvedilol (Carvedilol 12.5 Mg Tab) 12.5 mg PO BID 6AM 6PM [facility] Last Admin: 04/25/24 17:59 Dose: 12.5 mg Collagenase (Collagenase 30 Gm Ointment) 1 appl TOP DAILY [facility] Last Admin: 04/25/24 09:00 Dose: Not Given Cyclobenzaprine HCl (Cyclobenzaprine 10 Mg Tab) 10 mg PO DAILY PRN PRN Reason: MUSCLE SPASMS Docusate Sodium (Docusate Na 100 Mg Cap) 100 mg PO BID [facility] Last Admin: 04/25/24 20:40 Dose: Not Given Enteral Nutritional Formula (Nepro Shake 237 Ml Can) 237 ml PO DAILY [facility] Last Admin: 04/25/24 09:00 Dose: Not Given Epoetin Pierce (Epoetin Pierce 10,000 Unit/Ml Vial) 10,000 unit IV EVERY HD [facility] Last Admin: 04/25/24 14:45 Dose: 10,000 unit Ergocalciferol (Drisdol (Vitamin D=Ergocalciferol) 84736 Unit Cap) 50,000 unit PO Q7D@0900 [facility] Last Admin: 04/25/24 09:00 Dose: Not Given Ferrous Gluconate (Ferrous Gluconate 324 Mg Tab) 324 mg PO BID [facility] Last Admin: 04/25/24 20:40 Dose: 324 mg Gabapentin (Gabapentin 100 Mg Cap) 300 mg PO DAILY [facility] Last Admin: 04/25/24 09:00 Dose: Not Given Glucagon (Glucagon 1 Mg/Vial) 1 mg IM 1X PRN PRN Reason: HYPOGLYCEMIA Heparin Sodium (Porcine) (Heparin 5000 Unit/Ml 1 Ml Vial) 5,000 unit SQ Q8HR [facility] Last Admin: 04/25/24 17:56 Dose: 5,000 unit Heparin Sodium (Porcine) (Heparin 1,000 Unit/Ml Vial) 3,000 unit IV EVERY HD PRN PRN Reason: Prevent HD System Clotting Last Admin: 04/25/24 11:57 Dose: 3,000 unit Home Med (Mecobalamin [B12 Active]) 1,000 mcg PO DAILY [facility] Last Admin: 04/25/24 09:00 Dose: Not Given Dextrose (Dextrose 10% Water Iv Soln.) 125 mls @ 0 mls/hr IV PRN PRN; Protocol PRN Reason: HYPOGLYCEMIA Albumin Human (Albumin 25%) 50 mls @ 100 mls/hr IV EVERY HD [facility] Vancomycin HCl 500 mg/ Sodium (Chloride) 100 mls @ 100 mls/hr IVPB AFTER EACH DIALYSIS [facility]; Protocol Last Admin: 04/24/24 00:28 Dose: 100 mls Cefepime HCl 1 gm/ Sodium (Chloride) 100 mls @ 200 mls/hr IV Q24H [facility]; Protocol Last Admin: 04/25/24 17:59 Dose: 100 mls Insulin Glargine (Insulin Glargine 100 Unit/Ml) 15 unit SQ BID [facility] Last Admin: 04/25/24 20:41 Dose: 15 unit Insulin Human Regular (Insulin Regular (Human) 100 Unit/Ml) 0 unit SQ ACHS [facility]; Protocol Last Admin: 04/25/24 20:49 Dose: Not Given Lidocaine (Lidocaine 4% Patch) 1 patch TOP BEDTIME [facility] Last Admin: 04/25/24 20:40 Dose: Not Given Losartan Potassium (Losartan Potassium 50 Mg Tablet) 50 mg PO BEDTIME [facility] Last Admin: 04/25/24 20:40 Dose: 50 mg Mannitol (Mannitol 25% 12.5 Gm/50 Ml Vial) 12.5 gm IV EVERY HD PRN PRN Reason: Titrate to SBP (MUST DEFINE) Ondansetron HCl (Ondansetron 4 Mg/2 Ml Vial) 4 mg IV Q6HP PRN PRN Reason: NAUSEA / VOMITING Sevelamer Carbonate (Sevelamer Carbonate 800 Mg Tablet) 800 mg PO TIDWM [facility] Last Admin: 04/25/24 17:56 Dose: 800 mg Silver Sulfadiazine (Silver Sulfadiazine 1% 50 Gm) 1 appl TOP BID [facility] Last Admin: 04/25/24 20:41 Dose: 1 appl Trazodone HCl (Trazodone 50 Mg Tablet) 50 mg PO BEDTIME PRN PRN PRN Reason: INSOMNIA Last Admin: 04/25/24 20:40 Dose: 50 mg Vitamin B Complex/Vit C/Folic Acid (Multivitamins,Therapeut 1 Tab) 1 tab PO DAILY [facility] Last Admin: 04/25/24 09:00 Dose: Not Given Microbiology Results 04/09/24 20:40 Blood - Blood Aerobic Blood Culture - Final Proteus Vulgaris 04/09/24 20:40 Blood - Blood Anaerobic Blood Culture - Final Proteus Vulgaris 04/09/24 20:40 Blood - Blood Gram Stain - Final 04/09/24 20:25 Blood - Blood Aerobic Blood Culture - Final No growth in 5 days. 04/09/24 20:25 Blood - Blood Anaerobic Blood Culture - Final No growth in 5 days. 04/09/24 21:30 Nasopharnyx Influenza Type A Antigen Screen - Final 04/09/24 21:30 Nasopharnyx Influenza Type B Antigen Screen - Final Assessment/ Plan: Nephrology No dyspnea No chest pain No acute events overnight Vitals, medications, blood work and imaging reviewed in the chart General: In no apparent distress, Oriented x3, Cooperative HEENT: Atraumatic Neck: Supple Respiratory: Normal air movement Cardiovascular: Regular rate/rhythm, Edema Gastrointestinal: Soft and benign, Non-distended Musculoskeletal: No clubbing, No contractures Integumentary: No rashes, No cyanosis, Diabetic ulcer Neurological: Normal speech Laboratory Data (last 24 hrs) 04/09/24 04/09/24 20:20 20:20 WBC 16.60 H Hgb 9.7 L Hct 29.4 L Plt Count 277 Sodium 133 L Potassium 4.6 BUN 74 H Creatinine 12.60 H Glucose 77 Total Bilirubin 0.8 AST 25 ALT 29 Alkaline Phosphatase 229 H Imagings Data: Procedure: Chest Single View HISTORY: Cough COMPARISON: 2021 FINDINGS: The lungs appear clear of acute infiltrate. No significant pleural effusion noted. The heart is mildly enlarged.. IMPRESSION: No acute abnormality is displayed. Exam:Foot Left 3 View CLINICAL HISTORY: Left foot pain FINDINGS: No fracture or dislocation seen Soft tissue swelling. No bony destructive lesion seen. Vascular calcifications. Large calcaneal spur Conclusions/Impression: ESRD on HD MWF Hyponatremia -HD TIW HTN with CKD/ CHF -Continue Coreg ANA -CPAP qhs Diastolic CHF, chronic -Low sodium diet -UF with HD DM II with CKD & Polyneuropathy -RISS DM II with Foot Ulcer Sepsis secondary to Left Foot Osteomyelitis, s/p I&D (04/12) Proteus Vulgaris Bacteremia -Continue Abx -ID following -Wound care as ordered Hypoalbuminemia -Continue Nepro Anemia in CKD -Retacrit qHD -Continue oral iron CKD MBD -Continue Ergo -Continue Calcitriol -Continue [facility] Hospitalist note reviewed Case reviewed with Dr. Drummond
[2024-04-26 06:33] LABS: Anion Gap 11.7 mEq/L (5.0-15.0); Potassium 4.7 mEq/L (3.5-5.1)
[2024-04-26 06:54] LABS: Absolute Basophils 0.1 K/uL (0-0.5); Absolute Eosinophils 0.3 K/uL (0-0.5); Absolute Lymphocytes (CBC) 1.4 K/uL (0.7-4.9); Absolute Neutrophil 9.7 K/uL (1.8-8.0); Basophils % 0.6 % (0-1.3); Eosinophils % 2.5 % (0-4.4); Hematocrit 31.7 % (39.6-49.0); Hemoglobin 10.1 g/dL (13.6-17.9); Lymphocytes % 11.5 % (15.3-44.8); MCH 30.1 pg (27.0-35.0); MCHC 31.9 g/dL (32.0-36.0); MCV 94.5 fL (80-100); MPV 8.3 fL (7.6-11.3); Monocytes % 8.1 % (3.3-12.3); Neutrophils % 77.3 % (41.7-73.7); Nucleated Red Blood Cells % 0.3 % (0-0); Platelets 288 thou/uL (152-406); RBC Red Blood Cell Count 3.35 M/uL (4.33-5.43); Red Cell Distribution Width 17.2 % (12.1-15.2)
--- NOTE | 2024-04-26 11:01 | P.PN ---
Date of Service: 04/26/24 Vital Signs Temp Pulse Resp BP Pulse Ox 97.7 F 66 18 125/74 97 04/26/24 08:00 04/26/24 08:15 04/26/24 08:00 04/26/24 08:15 04/26/24 08:00 Medications Acetaminophen (Acetaminophen 500 Mg Tab) 500 mg PO Q4HP PRN PRN Reason: TEMP > 100' F Last Admin: 04/11/24 16:23 Dose: 500 mg Hydrocodone Bitart/Acetaminophen (Hydrocodone/Apap 5/325 Mg Tab) 1 tab PO Q6H PRN PRN Reason: Pain scale 5-7 (Moderate) Last Admin: 04/25/24 17:56 Dose: 1 tab Amlodipine Besylate (Amlodipine 2.5 Mg Tab) 2.5 mg PO DAILY [facility] Stop: 05/06/24 09:01 Last Admin: 04/26/24 08:15 Dose: 2.5 mg Aspirin (Aspirin Ec 81 Mg Tab) 81 mg PO DAILY [facility] Last Admin: 04/26/24 08:07 Dose: 81 mg Atorvastatin Calcium (Atorvastatin 40 Mg Tab) 40 mg PO BEDTIME [facility] Last Admin: 04/25/24 20:40 Dose: 40 mg Bupropion HCl (Bupropion Hcl Xl 150 Mg Tab) 300 mg PO DAILY [facility] Last Admin: 04/26/24 08:05 Dose: 300 mg Calcitriol (Calcitrol 0.25 Mcg Cap) 0.5 mcg PO DAILY [facility] Last Admin: 04/26/24 08:06 Dose: 0.5 mcg Carvedilol (Carvedilol 12.5 Mg Tab) 12.5 mg PO BID 6AM 6PM [facility] Last Admin: 04/26/24 06:23 Dose: 12.5 mg Collagenase (Collagenase 30 Gm Ointment) 1 appl TOP DAILY [facility] Last Admin: 04/26/24 08:08 Dose: 1 appl Cyclobenzaprine HCl (Cyclobenzaprine 10 Mg Tab) 10 mg PO DAILY PRN PRN Reason: MUSCLE SPASMS Docusate Sodium (Docusate Na 100 Mg Cap) 100 mg PO BID [facility] Last Admin: 04/26/24 08:07 Dose: 100 mg Enteral Nutritional Formula (Nepro Shake 237 Ml Can) 237 ml PO DAILY [facility] Last Admin: 04/26/24 08:08 Dose: Not Given Epoetin Pierce (Epoetin Pierce 10,000 Unit/Ml Vial) 10,000 unit IV EVERY HD [facility] Last Admin: 04/25/24 14:45 Dose: 10,000 unit Ergocalciferol (Drisdol (Vitamin D=Ergocalciferol) 04089 Unit Cap) 50,000 unit PO Q7D@0900 [facility] Last Admin: 04/25/24 09:00 Dose: Not Given Ferrous Gluconate (Ferrous Gluconate 324 Mg Tab) 324 mg PO BID [facility] Last Admin: 04/26/24 08:06 Dose: 324 mg Gabapentin (Gabapentin 100 Mg Cap) 300 mg PO DAILY [facility] Last Admin: 04/26/24 08:06 Dose: 300 mg Glucagon (Glucagon 1 Mg/Vial) 1 mg IM 1X PRN PRN Reason: HYPOGLYCEMIA Heparin Sodium (Porcine) (Heparin 5000 Unit/Ml 1 Ml Vial) 5,000 unit SQ Q8HR [facility] Last Admin: 04/26/24 08:07 Dose: 5,000 unit Heparin Sodium (Porcine) (Heparin 1,000 Unit/Ml Vial) 3,000 unit IV EVERY HD PRN PRN Reason: Prevent HD System Clotting Last Admin: 04/26/24 10:30 Dose: 3,000 unit Home Med (Mecobalamin [B12 Active]) 1,000 mcg PO DAILY [facility] Last Admin: 04/26/24 08:08 Dose: Not Given Dextrose (Dextrose 10% Water Iv Soln.) 125 mls @ 0 mls/hr IV PRN PRN; Protocol PRN Reason: HYPOGLYCEMIA Albumin Human (Albumin 25%) 50 mls @ 100 mls/hr IV EVERY HD [facility] Vancomycin HCl 500 mg/ Sodium (Chloride) 100 mls @ 100 mls/hr IVPB AFTER EACH DIALYSIS [facility]; Protocol Last Admin: 04/24/24 00:28 Dose: 100 mls Cefepime HCl 1 gm/ Sodium (Chloride) 100 mls @ 200 mls/hr IV Q24H [facility]; Protocol Last Admin: 04/25/24 17:59 Dose: 100 mls Insulin Glargine (Insulin Glargine 100 Unit/Ml) 15 unit SQ BID [facility] Last Admin: 04/26/24 10:23 Dose: 15 unit Insulin Human Regular (Insulin Regular (Human) 100 Unit/Ml) 0 unit SQ ACHS [facility]; Protocol Last Admin: 04/26/24 07:29 Dose: Not Given Lidocaine (Lidocaine 4% Patch) 1 patch TOP BEDTIME [facility] Last Admin: 04/25/24 20:40 Dose: Not Given Losartan Potassium (Losartan Potassium 50 Mg Tablet) 50 mg PO BEDTIME [facility] Last Admin: 04/25/24 20:40 Dose: 50 mg Mannitol (Mannitol 25% 12.5 Gm/50 Ml Vial) 12.5 gm IV EVERY HD PRN PRN Reason: Titrate to SBP (MUST DEFINE) Ondansetron HCl (Ondansetron 4 Mg/2 Ml Vial) 4 mg IV Q6HP PRN PRN Reason: NAUSEA / VOMITING Sevelamer Carbonate (Sevelamer Carbonate 800 Mg Tablet) 800 mg PO TIDWM [facility] Last Admin: 04/26/24 08:06 Dose: 800 mg Silver Sulfadiazine (Silver Sulfadiazine 1% 50 Gm) 1 appl TOP BID [facility] Last Admin: 04/26/24 08:08 Dose: 1 appl Trazodone HCl (Trazodone 50 Mg Tablet) 50 mg PO BEDTIME PRN PRN PRN Reason: INSOMNIA Last Admin: 04/25/24 20:40 Dose: 50 mg Vitamin B Complex/Vit C/Folic Acid (Multivitamins,Therapeut 1 Tab) 1 tab PO DAILY [facility] Last Admin: 04/26/24 08:06 Dose: 1 tab Microbiology Results 04/09/24 20:40 Blood - Blood Aerobic Blood Culture - Final Proteus Vulgaris 04/09/24 20:40 Blood - Blood Anaerobic Blood Culture - Final Proteus Vulgaris 04/09/24 20:40 Blood - Blood Gram Stain - Final 04/09/24 20:25 Blood - Blood Aerobic Blood Culture - Final No growth in 5 days. 04/09/24 20:25 Blood - Blood Anaerobic Blood Culture - Final No growth in 5 days. 04/09/24 21:30 Nasopharnyx Influenza Type A Antigen Screen - Final 04/09/24 21:30 Nasopharnyx Influenza Type B Antigen Screen - Final Assessment/ Plan: Nephrology No dyspnea No chest pain No acute events overnight Vitals, medications, blood work and imaging reviewed in the chart General: In no apparent distress, Oriented x3, Cooperative HEENT: Atraumatic Neck: Supple Respiratory: Normal air movement Cardiovascular: Regular rate/rhythm, Edema Gastrointestinal: Soft and benign, Non-distended Musculoskeletal: No clubbing, No contractures Integumentary: No rashes, No cyanosis, Diabetic ulcer Neurological: Normal speech Laboratory Data (last 24 hrs) 04/09/24 04/09/24 20:20 20:20 WBC 16.60 H Hgb 9.7 L Hct 29.4 L Plt Count 277 Sodium 133 L Potassium 4.6 BUN 74 H Creatinine 12.60 H Glucose 77 Total Bilirubin 0.8 AST 25 ALT 29 Alkaline Phosphatase 229 H Imagings Data: Procedure: Chest Single View HISTORY: Cough COMPARISON: 2021 FINDINGS: The lungs appear clear of acute infiltrate. No significant pleural effusion noted. The heart is mildly enlarged.. IMPRESSION: No acute abnormality is displayed. Exam:Foot Left 3 View CLINICAL HISTORY: Left foot pain FINDINGS: No fracture or dislocation seen Soft tissue swelling. No bony destructive lesion seen. Vascular calcifications. Large calcaneal spur Conclusions/Impression: ESRD on HD MWF Hyponatremia -HD TIW HTN with CKD/ CHF -Continue Coreg ANA -CPAP qhs Diastolic CHF, chronic -Low sodium diet -UF with HD DM II with CKD & Polyneuropathy -RISS DM II with Foot Ulcer Sepsis secondary to Left Foot Osteomyelitis, s/p I&D (04/12) Proteus Vulgaris Bacteremia -Continue Abx -ID following -Wound care as ordered Hypoalbuminemia -Continue Nepro Anemia in CKD -Retacrit qHD -Continue oral iron CKD MBD -Continue Ergo -Continue Calcitriol -Continue [facility] Hospitalist note reviewed
[2024-04-26] MEDS: HYDRALAZINE HCL 20 MG/ML VIAL IV ONE (12:27)
--- NOTE | 2024-04-26 17:22 | P.PN ---
Subjective Date of Service: 04/26/24 Chief Complaint: left foot pain redness Patient has no new complaint. He states he feels well. No recorded fever. No issues overnight. Physical Examination - Vital Signs Temperature: 98 F Blood Pressure: 151/66 Pulse: 71 Respirations: 18 Pulse Ox (%): 97 Assessment And Plan - Plan Physical examination General: Alert and oriented x3, NAD. Heart: Heart sounds 1 and 2 normal, regular rhythm, normal rate, no pedal edema Lungs: Clear to auscultation bilaterally, adequate breath sounds bilaterally, no rhonchi or crackles. Abdomen: Soft, obese, nondistended, nontender, normal bowel sounds. Extremities: No tenderness, left foot with clean dressing Neuro: No focal motor deficit. Psychiatry: Normal mood, no agitation. Problem List: Sepsis secondary to Left Foot Osteomyelitis, s/p I&D (04/12) Proteus Vulgaris Bacteremia ESRD on HD MWF IDDM2 Anemia of chronic kidney disease Hyponatremia Obstructive sleep apnea Hypertension Plan: Sepsis secondary to Left Foot Osteomyelitis, s/p I&D (04/12) Proteus Vulgaris Bacteremia MRI foot (04/11): osteomyelitis of the base of the fourth and fifth metatarsals. Dr. Quintero, general surgeon is following s/p I&D with bone biopsy (04/12) Wound cx (04/10): Proteus vulgaris and Enterococcus Faecalis Surgical Wound cx (04/12): Proteus vulgaris, Enterococcus Faecalis, Escherichia Fergusoni Blood cx (04/10): Proteus Vulgaris Repeat blood cx (04/15): NGTD Nephrology Dr. Russo suggested dual therapy with IV ceftazidime and gentamicin with dialysis if possible to avoid picc Case discussed with Dr. Godfrey who recommended to avoid gentamicin for now, and recommend cefepime and vancomycin. Moreover patient has worsening leukocytosis with a gentamicin and ceftazidime. Dr. Godfrey recommended LTAC for IV antibiotics administration as well as complex wound care management with hyperbaric oxygen. IV gentamicin/ceftazidime switched to IV cefepime and vancomycin (04/17) per ID recs Continue IV cefepime and IV vanc for now Insurance denied LTAC. Appeal also denied. Patient agrees to go to SNF for IV antibiotics and wound care. Midline was recommended but patient was evaluated by the PICC event technician and patient considered not a candidate for midline given history of AV graft on the other arm. Options for long-term IV access is limited Case discussed with Dr. Russo who mentioned possibility of tunneled central line. Case discussed with general surgery Dr. Quintero, tunneled central venous catheter and will be done here patient need to be transferred to [facility] or [facility] for IR to do the procedure. Transferred for IR placement of central venous catheter initiated. PT and OT consult to evaluate transfers and mobility. ESRD on HD MWF Nephrology is following Routine hemodialysis per nephrology. IDDM2 Blood sugar readings within normal range. accu-cheks, SSI. continue semglee 15u BID; titrate as needed Anemia of chronic kidney disease. Stable. Daily labs Hyponatremia. resolved Sleep obstructive sleep apnea. CPAP during sleep Hypertension. continue home medications VTE: heparin sq Code: Full Dispo: Denied LTAC.
--- NOTE | 2024-04-26 18:14 | PN ---
Subjective: The patient lying in bed. No new acute event. Chart reviewed. Objective: Vital Signs: Temperature 98, pulse 73, respiration 18, blood pressure 171/78. Lungs: Basal crackles. Heart: S1, S2, regular. Abdomen: Soft, nontender. Bowel sounds present. Extremities: No edema. Lab Data: Shows WBC 12.5, hemoglobin 10, and platelets 288. Chemistry shows BUN of 25, creatinine 6 .6. Assessment And Plan: Osteomyelitis of foot, bacteremia secondary to Proteus vulgaris. The patient c urrently on cefepime and vancomycin. End-stage renal disease. Continue current treatment. Continue supportive care and wound care. Consider long-term acute care. We will follow the patient as lincoln BAUTISTA/JIMMY Voice ID: [id number] Report ID: [id number]
[2024-04-26 22:53] VITALS: BP 136/68; TEMP 97.4
== END 2024-04-26 21:35 | disposition short-term general hospital (02) | DRG 853 ==
LOC: ER 17:19 → 2ND 04-10 01:38
PROVIDERS: ADMIT Internal Medicine; ATTEND Internal Medicine
PROC: 4A033R1 Measurement of Arterial Saturation, Peripheral, Percutaneous Approach (ICD-10-PCS; 2024-04-10)
PROC: 02HV33Z Insertion of Infusion Device into Superior Vena Cava, Percutaneous Approach (ICD-10-PCS; 2024-04-10)
PROC: 5A1D70Z Performance of Urinary Filtration, Intermittent, Less than 6 Hours Per Day (ICD-10-PCS; 2024-04-10)
PROC: 0QBP0ZX Excision of Left Metatarsal, Open Approach, Diagnostic (ICD-10-PCS; 2024-04-12)
PROC: 0JBR0ZZ Excision of Left Foot Subcutaneous Tissue and Fascia, Open Approach (ICD-10-PCS; principal; 2024-04-12 15:45)
DX: A41.51 Sepsis due to Escherichia coli [E. coli] (principal); N18.6 End stage renal disease; L03.116 Cellulitis of left lower limb; I50.32 Chronic diastolic (congestive) heart failure; I13.2 Hypertensive heart and chronic kidney disease with heart failure and with stage 5 chronic kidney disease, or end stage renal disease; Z68.41 Body mass index [BMI] 40.0-44.9, adult; E44.0 Moderate protein-calorie malnutrition; E87.1 Hypo-osmolality and hyponatremia; M86.172 Other acute osteomyelitis, left ankle and foot; E11.52 Type 2 diabetes mellitus with diabetic peripheral angiopathy with gangrene; L02.612 Cutaneous abscess of left foot; A41.81 Sepsis due to Enterococcus; E11.22 Type 2 diabetes mellitus with diabetic chronic kidney disease; E11.649 Type 2 diabetes mellitus with hypoglycemia without coma; E11.42 Type 2 diabetes mellitus with diabetic polyneuropathy; E11.69 Type 2 diabetes mellitus with other specified complication; E11.621 Type 2 diabetes mellitus with foot ulcer; L97.529 Non-pressure chronic ulcer of other part of left foot with unspecified severity; D63.1 Anemia in chronic kidney disease; E66.01 Morbid (severe) obesity due to excess calories; G47.33 Obstructive sleep apnea (adult) (pediatric); E88.09 Other disorders of plasma-protein metabolism, not elsewhere classified; E78.5 Hyperlipidemia, unspecified; E87.5 Hyperkalemia; G89.29 Other chronic pain; M54.9 Dorsalgia, unspecified; H54.62 Unqualified visual loss, left eye, normal vision right eye; Z99.2 Dependence on renal dialysis; Z79.4 Long term (current) use of insulin; Z11.52 Encounter for screening for COVID-19; Z91.158 Patient's noncompliance with renal dialysis for other reason; Z79.82 Long term (current) use of aspirin; Z79.899 Other long term (current) drug therapy
CPT/HCPCS: 36415; 36600; 71045; 80048; 80053; 80069; 80074; 80170; 80202; 81001; 82010; 82805; 82947; 83605; 83735; 84100; 85025; 85027; 85610; 85730; 87040; 87070; 87075; 87077; 87086; 87088; 87176; 87186; 87205; 87804; 87811; 88304; 90935; 93005; 96365; 96366; 99285; J0360; J0692; J0696; J0713; J1171; J1580; J1644; J2003; J2185; J2250; J2270; J2405; J2704; J3010; J3590; J7030; J7040; J7050

== ENCOUNTER 2024-05-27 16:44 | Inpatient (IN) | payer MEDICARE ==
--- NOTE | 2024-05-27 18:01 | RAD REPORT ---
Procedure: Chest Single View HISTORY: Cough COMPARISON: April 2024 FINDINGS: The lungs appear clear of acute infiltrate. No significant pleural effusion noted. The heart is mildly to moderately enlarged. IMPRESSION: No acute abnormality is displayed.
--- NOTE | 2024-05-27 18:03 | RAD REPORT ---
Exam:Foot Left 3 View CLINICAL HISTORY: Left foot pain FINDINGS: Ulceration soft tissue lateral forefoot. Destructive changes involve the base of the fifth metatarsal. There is an equivocal pathologic fractu re. Cortical irregularity base of the fourth metatarsal. These findings represent osteomyelitis.
[2024-05-27] MEDS ORDERED: NA CHLORIDE 0.9% 1,000 ML ONE (18:27)
--- NOTE | 2024-05-27 18:41 | RAD REPORT ---
EXAM:Extremity Venous Uni Ltd HISTORY: Left leg pain TECHNIQUE: Sonographic evaluation left lower extremity performed.Grayscale, color and spectral analys is performed on all vessels COMPARISON: 2023. FINDINGS: Left common femoral, superficial femoral, greater saphenous, popliteal and posterior tibial veins are compressible and demonstrate augmentation. Doppler demonstrates good flow. IMPRESSION: No evidence of deep venous thrombosis involving the left lower extremity.
--- NOTE | 2024-05-27 18:43 | RAD REPORT ---
EXAM:Lower Extremity Artery Uni Ltd HISTORY: Left eg pain TECHNIQUE: Sonographic evaluation left lower extremity arteries performed.Grayscale, color and spectr al analysis performed on all vessels COMPARISON: None. FINDINGS: The left common femoral, superficial femoral, popliteal, posterior tibial, dorsalis pedis and posteri or tibial arterial waveforms are monophasic No occlusion seen. IMPRESSION: Monophasic waveforms throughout the left lower extremity indicate a significant aortoiliac stenosis
--- NOTE | 2024-05-27 18:56 | EDPHYS ---
Physician Documentation [facility] Name: Wild Koenig Age: 59 yrs Sex: Male : 1965 Arrival Date: 05/27/2024 Time: 16:44 Bed 16 Private MD: ED Physician James Severino HPI: 05/27 18:36 This 59 yrs old Male presents to ER via EMS with complaints of Leg Pain. bernice 18:36 The patient presents with decreased range of motion, pain, that is acute. The bernice complaints affect the lateral aspect of left calf and left garcia. Context: The problem was sustained at an unknown site, resulted from a chronic condition, the patient can fully bear weight. Modifying factors: The symptoms are alleviated by elevating leg, remaining still, the symptoms are aggravated by movement, weight bearing. Associated signs and symptoms: The patient has no apparent associated signs or symptoms. Treatment prior to arrival includes: no previous treatment. Severity of symptoms: At their worst the symptoms were moderate, in the emergency department the symptoms are unchanged. The patient has experienced similar episodes in the past, multiple times. Historical: - Allergies: 16:56 No Known Allergies; iw - PMHx: 16:51 Anxiety; chronic back pain; Congestive heart failure; Depression; Diabetes - IDDM; iw Dialysis (right upper arm fis); Hypertension; - PSHx: 16:51 right upper arm fistula; iw - Immunization history:: Adult Immunizations up to date. - Infectious Disease History:: Denies. - Social history:: Smoking status: Patient denies any tobacco usage or history of. - Family history:: not pertinent. ROS: 18:36 Constitutional: Negative for fever, chills, and weight loss, Eyes: Negative for injury, bernice pain, redness, and discharge, ENT: Negative for injury, pain, and discharge, Neck: Negative for injury, pain, and swelling, Cardiovascular: Negative for chest pain, palpitations, and edema, Respiratory: Negative for shortness of breath, cough, wheezing, and pleuritic chest pain, Abdomen/GI: Negative for abdominal pain, nausea, vomiting, diarrhea, and constipation, Back: Negative for injury and pain, : Negative for injury, bleeding, discharge, and swelling, Neuro: Negative for headache, weakness, numbness, tingling, and seizure, Psych: Negative for depression, anxiety, suicide ideation, homicidal ideation, and hallucinations, Allergy/Immunology: Negative for hives, rash, and allergies, Endocrine: Negative for neck swelling, polydipsia, polyuria, polyphagia, and marked weight changes, Hematologic/Lymphatic: Negative for swollen nodes, abnormal bleeding, and unusual bruising, 18:36 MS/extremity: Positive for erythema, pain, swelling, tenderness, of the lateral aspect of left calf and left garcia, Exam: 18:36 Constitutional: This is a well developed, well nourished patient who is awake, alert, bernice and in no acute distress. Head/Face: Normocephalic, atraumatic. Eyes: Pupils equal round and reactive to light, extra-ocular motions intact. Lids and lashes normal. Conjunctiva and sclera are non-icteric and not injected. Cornea within normal limits. Periorbital areas with no swelling, redness, or edema. ENT: Nares patent. No nasal discharge, no septal abnormalities noted. Tympanic membranes are normal and external auditory canals are clear. Oropharynx with no redness, swelling, or masses, exudates, or evidence of obstruction, uvula midline. Mucous membranes moist. Neck: Trachea midline, no thyromegaly or masses palpated, and no cervical lymphadenopathy. Supple, full range of motion without nuchal rigidity, or vertebral point tenderness. No Meningismus. Chest/axilla: Normal chest wall appearance and motion. Nontender with no deformity. No lesions are appreciated. Cardiovascular: Regular rate and rhythm with a normal S1 and S2. No gallops, murmurs, or rubs. Normal PMI, no JVD. No pulse deficits. Respiratory: Lungs have equal breath sounds bilaterally, clear to auscultation and percussion. No rales, rhonchi or wheezes noted. No increased work of breathing, no retractions or nasal flaring. Abdomen/GI: Soft, non-tender, with normal bowel sounds. No distension or tympany. No guarding or rebound. No evidence of tenderness throughout. Back: No spinal tenderness. No costovertebral tenderness. Full range of motion. Neuro: Awake and alert, GCS 15, oriented to person, place, time, and situation. Cranial nerves II-XII grossly intact. Motor strength 5/5 in all extremities. Sensory grossly intact. Cerebellar exam normal. Normal gait. Psych: Awake, alert, with orientation to person, place and time. Behavior, mood, and affect are within normal limits. 18:36 Musculoskeletal/extremity: Extremities: grossly normal except: decreased ROM, erythema, pain, ROM: Circulation is intact in all extremities. Sensation intact. Compartment Syndrome exam of affected extremity: is normal. DVT Exam: pain, swelling, tenderness, erythema, increased warmth, that is moderate, 18:59 ECG was reviewed by the Attending Physician. [facility] Vital Signs: 16:55 BP 112 / 94; Pulse 81; Resp 16; Temp 98.5; Weight 136.08 kg; Height 5 ft. 10 in. ; Pain iw 10/10; 18:00 BP 116 / 90; Pulse 80; Resp 20; Pulse Ox 98% on R/A; kj2 16:55 Body Mass Index 43.05 (136.08 kg, 177.8 cm) iw 16:55 Pain Scale: Adult iw MDM: 16:51 Medical Screening Exam initiated bernice 18:45 Differential diagnosis: tendonitis. Data reviewed: vital signs, nurses notes, lab test [facility] result(s), EKG, radiologic studies, doppler, plain films. Consideration of Admission/Observation Patient was admitted/placed on observation. Escalation of care including admission/observation considered. I considered the following discharge prescriptions or medication management in the emergency department Medications were administered in the Emergency Department. See MAR. Independent interpretation of the following test(s) in the Emergency Department EKG: See my EKG interpretation above. Test considered but Not performed: MRI: no mri lower extremity. Historians other than the Patient: pt well informed. Care significantly affected by the following chronic conditions: Hypertension, Congestive Heart Failure, Obesity, Chronic Kidney Disease, anxiety. 05/27 16:49 Order name: Basic Metabolic Panel 05/27 16:49 Order name: CBC with Diff; Complete Time: 19:54 bernice 05/27 16:49 Order name: LFT's 05/27 16:49 Order name: Magnesium [facility] 05/27 16:49 Order name: NT PRO-BNP 05/27 16:49 Order name: PT-INR 05/27 16:49 Order name: Troponin HS [facility] 05/27 16:49 Order name: Blood Culture Adult (2) 05/27 16:49 Order name: Lactate w/ 2H reflex if indic. 05/27 16:49 Order name: CRP [facility] 05/27 19:40 Order name: CBC with Automated Diff [facility] 05/27 19:40 Order name: CBC with Automated Diff [facility] 05/27 19:40 Order name: Comprehensive Metabolic Panel [facility] 05/27 19:40 Order name: Comprehensive Metabolic Panel [facility] 05/27 19:40 Order name: Lipid Profile [facility] 05/27 19:40 Order name: Lipid Profile [facility] 05/27 22:34 Order name: Glucose, Ancillary Testing [facility] 05/27 16:49 Order name: XRAY Chest (1 view); Complete Time: 18:47 [facility] 05/27 16:49 Order name: Foot Left 3 View XRAY; Complete Time: 18:47 [facility] 05/27 16:49 Order name: Extremity Venous Unilateral Ltd; Complete Time: 18:47 [facility] 05/27 16:49 Order name: US LE Artery Uni Ltd; Complete Time: 18:47 [facility] 05/27 16:49 Order name: EKG; Complete Time: 16:49 bernice 05/27 19:40 Order name: CONS Physician Consult [facility] 05/27 19:40 Order name: CONS Physician Consult [facility] 05/27 16:49 Order name: Cardiac monitoring; Complete Time: 19:37 [facility] 05/27 16:49 Order name: EKG - Nurse/Tech; Complete Time: 18:56 [facility] 05/27 16:49 Order name: IV Saline Lock; Complete Time: 19:37 [facility] 05/27 16:49 Order name: Labs collected and sent; Complete Time: 19:37 [facility] 05/27 16:49 Order name: O2 Per Protocol; Complete Time: 19:37 [facility] 05/27 16:49 Order name: O2 Sat Monitoring; Complete Time: 19:37 [facility] 05/27 18:36 Order name: Wound dressing; Complete Time: 00:00 [facility] EC:59 Rate is 77 beats/min. Rhythm is regular. QRS [place] is Normal. CO interval is normal. QRS bernice interval is normal. QT interval is normal. No Q waves. T waves are Normal. No ST changes noted. Clinical impression: NSR w/ Non-specific ST/T Changes and No evidence of ischemia. Interpreted by me. Reviewed by me. Administered Medications: 18:44 Not Given (Duplicate Order): ns 0.9% 500 ml 500 ml IV at 1 bolus once; to be given as a bernice bolus over 30 minutes 18:44 Not Given (Duplicate Order): ns 0.9% 500 ml 500 ml IV at 125 ml/min once bernice 18:48 Drug: NS 0.9% IV 500 ml 500 ml IV at 50 ml/hr once; to be given as a bolus over 30 kj2 minutes Volume: 500 ml; Route: IV; Rate: 50 ml/hr; Site: left antecubital; 19:30 Follow up: IV Status: Completed infusion; IV Intake: 500ml kj2 19:00 Drug: Ampicillin-Sulbactam Sodium IVPB 3 grams IVPB once over 30 mins; (mix in 100 mL kj2 NS) Route: IVPB; Infused Over: 30 mins; Site: left antecubital; 05/28 00:36 Follow up: IV Status: Completed infusion; IV Intake: 100ml rg5 05/27 19:11 Drug: Ondansetron IVP 4 mg IVP once; over 2 minutes Route: IVP; Site: left antecubital; kj2 23:43 Follow up: Response: No adverse reaction kj2 19:12 Drug: morphine IVP or IV 4 mg IVP once over 4 mins Route: IVP; Infused Over: 4 mins; kj2 Site: left antecubital; 23:43 Follow up: Response: No adverse reaction kj2 19:37 Drug: vancoMYCIN IVPB 1 grams IVPB once over 2 hrs Route: IVPB; Infused Over: 2 hrs; kj2 Site: left antecubital; 05/28 00:36 Follow up: IV Status: Completed infusion; IV Intake: 250ml rg5 Disposition Summary: 05/27/24 18:56 Hospitalization Ordered Notes: Hospitalization Status: Inpatient Admission bernice Provider: Milton Reyna bernice Condition: Fair bernice Problem: new bernice Symptoms: are unchanged bernice Bed/Room Type: Standard bernice Location: Telemetry/MedSurg (Inpatient)(05/28/24 02:52) cg Room Assignment: [facility](05/28/24 02:52) cg Diagnosis - Type 1 diabetes mellitus with hypoglycemia bernice - Obesity, unspecified bernice - Dependence on renal dialysis bernice - Cellulitis of left lower limb bernice - Osteomyelitis, unspecified - left foot, base metatarsal fracture bernice Forms: - Medication Reconciliation Form bernice - SBAR form bernice - Leadership Thank You Letter bernice Signatures: Dispatcher [employer] James Martin MD MD cha Williams, Irene, RN RN Glory Joya, MARISABEL RN Janae Dotson PA-C PA-C [id number] Samreen Ramos [facility] Yoselyn Tapia RN RN kj2 Dalton Elaine RN rg5 Corrections: (The following items were deleted from the chart) 05/27 19:49 18:56 Telemetry/MedSurg (Inpatient) [facility] 19:49 18:56 [facility] 05/28 02:52 05/27 19:49 [facility] cg 05/28 02:52 05/27 [facility]
--- NOTE | 2024-05-27 18:56 | ER ---
Nurse's Notes [facility] Name: Wild Koenig Age: 59 yrs Sex: Male : 1965 Arrival Date: 05/27/2024 Time: 16:44 Bed 16 Private MD: Diagnosis: Type 1 diabetes mellitus with hypoglycemia;Obesity, unspecified;Dependence on renal dialysis;Cellulitis of left lower limb;Osteomyelitis, unspecified-left foot, base metatarsal fracture Presentation: 05/27 16:50 Chief complaint: Patient states: left lower leg pain X 4 days, swelling hard to put iw weight on it. Coronavirus screen: At this time, the client does not indicate any symptoms associated with coronavirus-19. Ebola Screen: No symptoms or risks identified at this time. Initial Sepsis Screen: Does the patient meet any 2 criteria? No. Patient's initial sepsis screen is negative. Does the patient have a suspected source of infection? No. Patient's initial sepsis screen is negative. Risk Assessment: Do you want to hurt yourself or someone else? Patient reports no desire to harm self or others. 16:50 Method Of Arrival: EMS: [facility] iw 16:50 Acuity: MYNOR 3 iw Historical: - Allergies: 16:56 No Known Allergies; iw - PMHx: 16:51 Anxiety; chronic back pain; Congestive heart failure; Depression; Diabetes - IDDM; iw Dialysis (right upper arm fis); Hypertension; - PSHx: 16:51 right upper arm fistula; iw - Immunization history:: Adult Immunizations up to date. - Infectious Disease History:: Denies. - Social history:: Smoking status: Patient denies any tobacco usage or history of. - Family history:: not pertinent. Screenin:22 [facility] ED Fall Risk Assessment (Adult) History of falling in the last 3 months, kj2 including since admission No falls in past 3 months (0 pts) Confusion or Disorientation No (0 pts) Intoxicated or Sedated No (0 pts) Impaired Gait No (0 pts) Mobility Assist Device Used No (0 pt) Altered Elimination No (0 pt) Score/Fall Risk Level 0 - 2 = Low Risk Maintained a safe environment, Hourly rounding (assess needs \T\ fall precautionary measures) done. Abuse screen: Denies threats or abuse. Denies injuries from another. Nutritional screening: No deficits noted. Tuberculosis screening: No symptoms or risk factors identified. Assessment: 17:00 Derm: Skin bed is pink and open on the side of left foot Skin is clammy, Skin is pink, kj2 Wound noted left leg and left garcia and lateral aspect of left calfsid Other: side of left foot. 17:10 General: Appears in no apparent distress. Behavior is calm, cooperative. Pain: kj2 Complains of pain in left leg Pain currently is 6 out of 10 on a pain scale. Neuro: Level of Consciousness is awake, alert, obeys commands, Oriented to person, place, time, situation. Cardiovascular: Patient's skin is warm and dry. Respiratory: Airway is patent Respiratory effort is even, unlabored. GI: No signs and/or symptoms were reported involving the gastrointestinal system. : Reports hemodialysis. 18:10 Reassessment: Patient appears in no apparent distress at this time. Patient and/or kj2 family updated on plan of care and expected duration. Pain level reassessed. Patient is alert, oriented x 3, equal unlabored respirations, skin warm/dry/pink. 19:13 Reassessment: Patient appears in no apparent distress at this time. Patient and/or kj2 family updated on plan of care and expected duration. Pain level reassessed. Patient is alert, oriented x 3, equal unlabored respirations, skin warm/dry/pink. 05/28 00:00 Reassessment: No changes from previously documented assessment. Patient and/or family rg5 updated on plan of care and expected duration. Pain level reassessed. Patient is alert, oriented x 3, equal unlabored respirations, skin warm/dry/pink. Vital Signs: 05/27 16:55 BP 112 / 94; Pulse 81; Resp 16; Temp 98.5; Weight 136.08 kg; Height 5 ft. 10 in. ; Pain iw 10; 18:00 BP 116 / 90; Pulse 80; Resp 20; Pulse Ox 98% on R/A; kj2 16:55 Body Mass Index 43.05 (136.08 kg, 177.8 cm) iw 16:55 Pain Scale: Adult iw ED Course: 16:45 Patient arrived in ED. mr 16:46 James Severino MD is Attending Physician. bernice 16:50 Triage completed. iw 17:07 Willie, Yoselyn, RN is Primary Nurse. kj2 17:22 Patient has correct armband on for positive identification. Bed in low position. Call kj2 light in reach. Provided Education on: call light. 17:23 Arm band placed on Patient placed in an exam room, on a stretcher. kj2 17:23 No provider procedures requiring assistance completed. kj2 17:30 XRAY Chest (1 view) In Process Unspecified. EDMS 17:30 Foot Left 3 View XRAY In Process Unspecified. EDMS 18:21 US Extremity Venous Unilateral Ltd In Process Unspecified. EDMS 18:21 US LE Artery Uni Ltd In Process Unspecified. EDMS 18:44 Initial lab(s) drawn, by me, sent to lab. Accessed peripheral vein via ultrasound, hb utilizing dynamic ultrasound technique using 20G Nexia IV catheter per hospital protocol. Good blood return. Flushes easily. 18:49 Milton Reyna MD is Hospitalizing Provider. bernice 18:56 EKG done, by ED staff, reviewed by James Severino MD. em1 05/28 00:00 Patient admitted, IV remains in place. intact. rg5 Administered Medications: 05/27 18:44 Not Given (Duplicate Order): ns 0.9% 500 ml 500 ml IV at 1 bolus once; to be given as a bernice bolus over 30 minutes 18:44 Not Given (Duplicate Order): ns 0.9% 500 ml 500 ml IV at 125 ml/min once bernice 18:48 Drug: NS 0.9% IV 500 ml 500 ml IV at 50 ml/hr once; to be given as a bolus over 30 kj2 minutes Volume: 500 ml; Route: IV; Rate: 50 ml/hr; Site: left antecubital; 19:30 Follow up: IV Status: Completed infusion; IV Intake: 500ml kj2 19:00 Drug: Ampicillin-Sulbactam Sodium IVPB 3 grams IVPB once over 30 mins; (mix in 100 mL kj2 NS) Route: IVPB; Infused Over: 30 mins; Site: left antecubital; 05/28 00:36 Follow up: IV Status: Completed infusion; IV Intake: 100ml rg5 05/27 19:11 Drug: Ondansetron IVP 4 mg IVP once; over 2 minutes Route: IVP; Site: left antecubital; kj2 23:43 Follow up: Response: No adverse reaction kj2 19:12 Drug: morphine IVP or IV 4 mg IVP once over 4 mins Route: IVP; Infused Over: 4 mins; kj2 Site: left antecubital; 23:43 Follow up: Response: No adverse reaction kj2 19:37 Drug: vancoMYCIN IVPB 1 grams IVPB once over 2 hrs Route: IVPB; Infused Over: 2 hrs; kj2 Site: left antecubital; 05/28 00:36 Follow up: IV Status: Completed infusion; IV Intake: 250ml rg5 Medication: 05/27 17:23 VIS not applicable for this client. kj2 Intake: 19:30 IV: 500ml; Total: 500ml. kj2 05/28 00:36 IV: 100ml; Total: 600ml. rg5 00:36 IV: 250ml; Total: 850ml. rg5 Outcome: 05/27 18:56 Decision to Hospitalize by Provider. bernice 05/28 00:00 Admitted to ER Hold. Please see [facility] for further documentation. rg5 Condition: stable Instructed on the need for admit, 03:45 Patient left the ED. rg5 Signatures: Dispatcher [employer] EDMS James Severino MD MD cha Rivera, Mary, Reg Reg mr Ana Hubbard, Delfino Fajardo RN em1 Wendi Mahajan RN RN hb Gallardo, Rommel, RN RN rg5 Yoselyn Tpaia, MARISABEL RN kj2 Corrections: (The following items were deleted from the chart) 05/27 16:56 16:55 Pulse 81bpm; Resp 16bpm; Temp 98.5F; 136.08 kg; Height 5 ft. 10 in.; BMI: 43.0; iw Pain 10/10, Adult; iw 16:58 16:55 BP 112 / 94; Pulse 81bpm; Resp 16bpm; Temp 98.5F; 136.08 kg; Height 5 ft. 10 in.; iw BMI: 43.0; Pain 10/10, Adult; iw
[2024-05-27] MEDS ORDERED: ONDANSETRON 4 MG/2 ML VIAL ONE (18:58)
[2024-05-27] MEDS ORDERED: VANCOMYCIN 1 GM/VIAL ONE (18:58)
[2024-05-27] MEDS ORDERED: AMPICILLIN/SULBACTAM 3GM/VIAL ONE (18:59)
[2024-05-27] MEDS ORDERED: NA CHLORIDE 0.9% 100 ML ONE ×2 (18:59→22:08)
[2024-05-27] MEDS ORDERED: MORPHINE 4 MG/ML SYR ONE (18:59)
[2024-05-27] MEDS ORDERED: NA CHLORIDE 0.9% 250 ML ONE (18:59)
--- NOTE | 2024-05-27 19:33 | P.HP ---
Certification for Inpatient With expected LOS: >2 Midnights Patient will require the following post-hospital care: Home Health Services Practitioner: I am a practitioner with admitting privileges, knowledge of patient current condition, hospital course, and medical plan of care. Services: Services provided to patient in accordance with Admission requirements found in Title 42 Section 412.3 of the Code of Federal Regulations Patient History Date of Service: 05/27/24 Reason for admission: Left foot ulcer and pain History of Present Illness: 59-year-old with history of HTN/DM/ESRD on HD MWF, chronic left foot wound follows in wound clinic with Dr. Quintero, presented to the hospital because of worsening pain as well as nonhealing ulcer. Patient states he has had debridement of the wound in the past. Ulcer continue to extend around the lateral border of the foot as well as a new ulcer on the left heel. Ulcer seems to be getting worse. On arrival in the ED vital signs were stable afebrile. X- ray shows destructive process with erosion of the skin and possible osteomyelitis of the fifth metatarsal bone. Arterial Doppler shows significant aorto iliac stenosis. Venous Doppler shows no DVT bilateral lower extremity. CBC including WBC and BMP pending. Patient stated pain has been very disturbing and limiting his ambulation. Allergies No Known Allergies Allergy (Verified 01/15/24 21:51) Home Medications: Gabapentin 300 mg PO DAILY 11/15/19 Insulin Detemir [Levemir Flextouch] 33 units SQ BID 11/15/19 Calcitrol [Rocaltrol*] 0.5 mcg PO DAILY #60 cap 11/19/19 carvediloL [Coreg*] 25 mg PO BID #60 tab 11/19/19 Aspirin [Vazalore] 1 tab PO DAILY 12/25/20 Atorvastatin Calcium 1 tab PO BEDTIME 12/25/20 Trazodone [Desyrel*] 100 mg PO BEDTIME 12/25/20 Bupropion HCl [Budeprion Xl] 300 mg PO DAILY 11/17/23 Ferrous Gluconate 324 mg PO BID 11/17/23 Mecobalamin [B12 Active] 1,000 mcg PO DAILY 11/17/23 Epoetin [Procrit*] 10,000 unit IV EVERY HD vial 11/22/23 Losartan Potassium [Cozaar*] 50 mg PO BEDTIME #30 tab 11/22/23 Cyclobenzaprine [Flexeril*] 10 mg PO DAILY PRN 01/16/24 Sevelamer Carbonate [Renvela*] 800 mg PO TIDWM 01/16/24 Hydrocodone 10/APAP 325 [[place] 10325*] 1 tab PO Q8HP PRN #20 tab 01/19/24 - Past Medical/Surgical History Diabetic: Yes -: Chronic Back Pain -: Hypertension -: Diabetes mellitus type 2 insulin dependent -: Depression Anxiety -: Anxiety -: ESRD on HD (Dr. Russo/Lio) -: Chronic diastolic congestive heart failure -: Morbid obesity -: legally blind left eye -: eye surgery -: Dialysis catheter insertion right anterior chest wall Psychosocial/ Personal History: Patient lives with aunt - Family History Father -: Heart disease, Diabetes Mother -: Heart disease, Diabetes - Social History Smoking Status: Never smoker Alcohol use: No CD- Drugs: No Caffeine use: No Place of Residence: Home Review of Systems Musculoskeletal: Leg Pain, Foot Pain Physical Examination - Physical Exam General: Alert, In no apparent distress, Oriented x3, Obese HEENT: Atraumatic, Normocephalic, PERRLA Neck: 2+ carotid pulse no bruit, JVD not distended Respiratory: Clear to auscultation bilaterally, Normal air movement Cardiovascular: Normal pulses, Regular rate/rhythm, Normal S1 S2 Gastrointestinal: Normal bowel sounds, Soft and benign, Non-distended, No ascites, No tenderness Musculoskeletal: Erythema, Tenderness, Other Integumentary: Diabetic ulcer (left foot lateral wound exposing deep tissue of 5th metatrasal , separte left heel ulcer) Urinary: Other (left AVF fistula) Assessment and Plan - Problems (Diagnosis) (1) Chronic anemia Current Visit: No Status: Acute (2) Diabetic foot ulcer Current Visit: No Status: Acute (3) ESRD (end stage renal disease) on dialysis Current Visit: No Status: Acute (4) Anemia in chronic kidney disease Current Visit: No Status: Chronic Qualifiers: Chronic kidney disease stage: unspecified stage Qualified Code(s): N18.9 - Chronic kidney disease, unspecified; D63.1 - Anemia in chronic kidney disease - Plan Impression Left lateral foot woundwith fifth metatarsal osteomyelitis Left heel ulcer Peripheral vascular diseasewith significant aortoiliac stenosis Hypertension DM ESRD Plan We admit to inpatient Start empirical antibiotics with Vanco/cefepime Pharmacy to dose Keep trough less than 20 Dose antibiotics with dialysis Consult general surgery Dr. Chakraborty for possible debridement Will consult wound care May need prolonged antibiotics given presumed osteomyelitis Blood culture x 2 Renal consult for continuation of dialysis Resume home meds Insulin sliding scale with Accu-Cheks Pain control DVT prophylaxis with subcu heparin every 12 Full code Possible still stay for more than 48 hours Might need case management consult for home health and wound care Total time spent in evaluation discussion with the greater than 60 minutes Discharge Plan: Home Plan to discharge in: Greater than 2 days - Advance Directives Does patient have a Living Will: No Does patient have a Durable POA for Healthcare: No - Code Status/Comfort Care Code Status Assessed: Yes Time Spent Managing Pts Care (In Minutes): 75
[2024-05-27] MEDS ORDERED: HYDRALAZINE HCL 20 MG/ML VIAL IV PRN ×2 (19:34→19:38)
[2024-05-27] MEDS ORDERED: ALBUTEROL 2.5 MG/3 ML NEB SOL NEB PRN (19:35)
[2024-05-27] MEDS ORDERED: Oxycodone HCl/Acetaminophen 5/325 MG TAB PO PRN (19:38)
[2024-05-27 19:51] LABS: Absolute Eosinophils 0.6 K/uL (0-0.5); Absolute Lymphocytes (CBC) 1.2 K/uL (0.7-4.9); Absolute Monocytes 1.4 K/uL (0.1-1.3); Absolute Neutrophil 7.3 K/uL (1.8-8.0); Basophils % 0.4 % (0-1.3); Eosinophils % 5.7 % (0-4.4); Hematocrit 29.2 % (39.6-49.0); Hemoglobin 9.6 g/dL (13.6-17.9); Lymphocytes % 11.1 % (15.3-44.8); MCH 30.8 pg (27.0-35.0); MCHC 32.8 g/dL (32.0-36.0); MCV 93.7 fL (80-100); MPV 7.1 fL (7.6-11.3); Monocytes % 13.5 % (3.3-12.3); Neutrophils % 69.3 % (41.7-73.7); Platelets 299 thou/uL (152-406); RBC Red Blood Cell Count 3.11 M/uL (4.33-5.43); Red Cell Distribution Width 16.1 % (12.1-15.2)
[2024-05-27 19:56] LABS: PT Prothrombin Time 14.8 SECONDS (10.0-13.0); Protime INR 1.32
[2024-05-27 20:13] LABS: Albumin 2.6 g/dL (3.4-5.0); Albumin/Globulin Ratio 0.6 (1.1-1.8); Anion Gap 12.3 mEq/L (5.0-15.0); Bilirubin Direct 0.2 mg/dL (0-0.2); Bilirubin Indirect, Calculated 0.2 mg/dL (0.2-0.8); Bilirubin Total 0.4 mg/dL (0.2-1.0); Globulin 4.6 g/dL (2.3-3.5); Magnesium 2.1 mg/dL (1.6-2.4); Potassium 4.3 mEq/L (3.5-5.1); Protein, Total 7.2 g/dL (6.4-8.2)
[2024-05-27 20:17] LABS: Troponin High Sensitivity 192.5 pg/mL (<58.9)
[2024-05-27] MEDS: CEFEPIME 1 GM in NA CHLORIDE 0.9% 100 ML IV ONE (21:00)
[2024-05-27] MEDS ORDERED: HEPARIN 5000 UNIT/ML 1 ML VIAL SQ SCH (21:00)
[2024-05-27] MEDS ORDERED: INSULIN LISPRO 100 UNIT/1 ML SQ SCH (21:00)
[2024-05-27] MEDS: HEPARIN 5000 UNIT/ML 1 ML VIAL SQ SCH (21:00)
[2024-05-27] MEDS ORDERED: CEFEPIME 1 GM in NA CHLORIDE 0.9% 100 ML IV SCH (21:00)
[2024-05-27] MEDS: INSULIN LISPRO 100 UNIT/1 ML SQ SCH (21:00)
[2024-05-27] MEDS ORDERED: HEPARIN 5000 UNIT/ML 1 ML VIAL ONE (22:08)
[2024-05-27] MEDS ORDERED: CEFEPIME 1 GM/VIAL ONE (22:09)
[2024-05-28 05:24] LABS: Absolute Basophils 0.1 K/uL (0-0.5); Absolute Eosinophils 0.6 K/uL (0-0.5); Absolute Lymphocytes (CBC) 1.3 K/uL (0.7-4.9); Absolute Monocytes 1.2 K/uL (0.1-1.3); Basophils % 0.6 % (0-1.3); Eosinophils % 6.1 % (0-4.4); Hematocrit 26.9 % (39.6-49.0); Hemoglobin 8.6 g/dL (13.6-17.9); Lymphocytes % 12.6 % (15.3-44.8); MCV 93.7 fL (80-100); MPV 7.2 fL (7.6-11.3); Monocytes % 11.8 % (3.3-12.3); Neutrophils % 68.9 % (41.7-73.7); Nucleated Red Blood Cells % 0.1 % (0-0); Platelets 253 thou/uL (152-406); RBC Red Blood Cell Count 2.87 M/uL (4.33-5.43); Red Cell Distribution Width 15.9 % (12.1-15.2)
[2024-05-28 05:54] LABS: Albumin 2.3 g/dL (3.4-5.0); Albumin/Globulin Ratio 0.5 (1.1-1.8); Alkaline Phosphatase 115 U/L (45-117); Anion Gap 14.5 mEq/L (5.0-15.0); BUN Blood Urea Nitrogen 41 mg/dL (7-18); Bicarbonate 23 mEq/L (21-32); Bilirubin Total 0.4 mg/dL (0.2-1.0); Globulin 4.4 g/dL (2.3-3.5); Glomerular Filtration Rate 7 ml/min (=/>90); Glucose Level 67 mg/dL (74-106); HDL Cholesterol 33 mg/dL (40-60); LDL Cholesterol, Calculated 28 mg/dL (<130); LDL Cholesterol,Calc NonReport 28; Potassium 4.5 mEq/L (3.5-5.1); Protein, Total 6.7 g/dL (6.4-8.2); Sodium Level 137 mEq/L (136-145)
[2024-05-28 06:06] LABS: ALT/SGPT < 14 U/L (16-61); AST/SGOT < 10 U/L (15-37)
--- NOTE | 2024-05-28 09:29 | P.CNS ---
Date of Consult: 05/28/24 Reason for Consult: ESRD Requesting Physician: nelly drummond Chief Complaint: Left foot ulcer and pain History of Present Illness: 59-year-old with history of HTN/DM/ESRD on HD MWF, chronic left foot wound follows in wound clinic with Dr. Quintero, presented to the hospital because of worsening pain as well as nonhealing ulcer. Patient states he has had debridement of the wound in the past. Ulcer continue to extend around the lat eral border of the foot as well as a new ulcer on the left heel. Ulcer seems to be getting worse. On arrival in the ED vital signs were stable afebrile. X-ray shows destructive process with erosion of the skin and possible osteomyelitis of the fifth metatarsal bone. Arterial Doppler shows significant aorto iliac stenosis. Venous Doppler shows no DVT bilateral lower extremity. CBC including WBC and BMP pending. Patient stated pain has been very disturbing and limiting his ambulation. [id number] 18:36 This 59 yrs old Male presents to ER via EMS with complaints of Leg Pain. bernice 18:36 The patient presents with decreased range of motion, pain, that is acute. The bernice complaints affect the lateral aspect of left calf and left garcia. Context: The problem was sustained at an unknown site, resulted from a chronic condition, the patient can fully bear weight. Modifying factors: The symptoms are alleviated by elevating leg, remaining still, the symptoms are aggravated by movement, weight bearing. Associated signs and symptoms: The patient has no apparent associated signs or symptoms. Treatment prior to arrival includes: no previous treatment. Severity of symptoms: At their worst the symptoms were moderate, in the emergency department the symptoms are unchanged. The patient has experienced similar episodes in the past, multiple times. Allergies No Known Allergies Allergy (Verified 01/15/24 21:51) Home medications list reviewed: Yes Home Medications: Gabapentin 300 mg PO DAILY 11/15/19 Insulin Detemir [Levemir Flextouch] 33 units SQ BID 11/15/19 Calcitrol [Rocaltrol*] 0.5 mcg PO DAILY #60 cap 11/19/19 carvediloL [Coreg*] 25 mg PO BID #60 tab 11/19/19 Aspirin [Vazalore] 1 tab PO DAILY 12/25/20 Atorvastatin Calcium 1 tab PO BEDTIME 09/23/21 Trazodone [Desyrel*] 100 mg PO BEDTIME 12/25/20 Bupropion HCl [Budeprion Xl] 300 mg PO DAILY 11/17/23 Ferrous Gluconate 324 mg PO BID 11/17/23 Mecobalamin [B12 Active] 1,000 mcg PO DAILY 11/17/23 Epoetin [Procrit*] 10,000 unit IV EVERY HD vial 11/22/23 Losartan Potassium [Cozaar*] 50 mg PO BEDTIME #30 tab 11/22/23 Cyclobenzaprine [Flexeril*] 10 mg PO DAILY PRN 01/16/24 Sevelamer Carbonate [Renvela*] 800 mg PO TIDWM 01/16/24 Hydrocodone 10/APAP 325 [[place] 10325*] 1 tab PO Q8HP PRN #20 tab 01/19/24 - Past Medical/Surgical History Diabetic: Yes -: Chronic Back Pain -: HTN -: DM II -: Depression & Anxiety -: ESRD on HD (Dr. Russo/Lio) -: Chronic diastolic congestive heart failure -: Morbid obesity -: legally blind left eye -: eye surgery -: Dialysis catheter insertion right anterior chest wall Psychosocial/ Personal History: Patient lives with aunt - Family History Father Medical History: Heart disease, Diabetes Mother Medical History: Heart disease, Diabetes - Social History Smoking Status: Unknown if ever smoked Alcohol use: No CD- Drugs: No Caffeine use: No Place of Residence: Home Review of Systems 10-point ROS is otherwise unremarkable General: Weakness, Malaise Musculoskeletal: Foot Pain Physical Examination Temp Pulse Resp BP Pulse Ox 99.6 F 90 20 166/70 H 93 05/28/24 08:00 05/28/24 08:00 05/28/24 08:00 05/28/24 08:00 05/28/24 08:00 General: Oriented x3, Cooperative HEENT: Atraumatic Neck: Supple Respiratory: Normal air movement Cardiovascular: Regular rate/rhythm, Edema Gastrointestinal: Soft and benign, Non-distended Musculoskeletal: No clubbing, No contractures Integumentary: No rashes, No cyanosis, Diabetic ulcer Neurological: Normal speech Laboratory Data (last 24 hrs) 05/27/24 05/27/24 05/27/24 18:30 18:30 18:30 WBC 10.50 Hgb 9.6 L Hct 29.2 L Plt Count 299 PT 14.8 H INR 1.32 Sodium 134 L Potassium 4.3 BUN 36 H Creatinine 7.42 H Glucose 120 H Magnesium 2.1 Total Bilirubin 0.4 AST 13 L ALT 17 Alkaline Phosphatase 141 H Imagings Data: [id number] Exam:Foot Left 3 View CLINICAL HISTORY: Left foot pain FINDINGS: Ulceration soft tissue lateral forefoot. Destructive changes involve the base of the fifth metatarsal. There is an equivocal pathologic fracture. Cortical irregularity base of the fourth metatarsal. These findings represent osteomyelitis. [id number] EXAM:Extremity Venous Uni Ltd HISTORY: Left leg pain TECHNIQUE: Sonographic evaluation left lower extremity performed.Grayscale, color and spectral analysis performed on all vessels COMPARISON: 2023. FINDINGS: Left common femoral, superficial femoral, greater saphenous, popliteal and posterior tibial veins are compressible and demonstrate augmentation. Doppler demonstrates good flow. IMPRESSION: No evidence of deep venous thrombosis involving the left lower extremity. [id number] EXAM:Lower Extremity Artery Uni Ltd HISTORY: Left eg pain TECHNIQUE: Sonographic evaluation left lower extremity arteries performed.Grayscale, color and spectral analysis performed on all vessels COMPARISON: None. FINDINGS: The left common femoral, superficial femoral, popliteal, posterior tibial, dorsalis pedis and posterior tibial arterial waveforms are monophasic No occlusion seen. IMPRESSION: Monophasic waveforms throughout the left lower extremity indicate a significant aortoiliac stenosis [id number] Procedure: Chest Single View HISTORY: Cough COMPARISON: April 2024 FINDINGS: The lungs appear clear of acute infiltrate. No significant pleural effusion noted. The heart is mildly to moderately enlarged. IMPRESSION: No acute abnormality is displayed. Conclusions/Impression: ESRD on HD MWF -HD today HTN with CKD/ CHF -Continue Coreg Diastolic CHF, chronic -UF with HD -Low sodium diet DM II with CKD & Polyneuropathy -RISHI Hypoalbuminemia -Start Nepro Anemia in CKD -Retacrit qHD CKD MBD Secondary HyperParathyroidism -Start Renvela -Start Ergo PAD DM II with Left foot ulcer/ Osteomyelitis -Continue Abx -Wound care as ordered -Follow up with surgery Hospitalist and ER notes reviewed Case reviewed with Dr. Drummond Thank you kindly for the consultation
[2024-05-28] MEDS ORDERED: MANNITOL 25% 12.5 GM/50 ML VIAL IV PRN (09:35)
[2024-05-28] MEDS: carvediloL 25 MG TAB PO SCH (09:35)
[2024-05-28] MEDS ORDERED: NA CHLORIDE 0.9% 1,000 ML IV PRN (09:35)
[2024-05-28] MEDS ORDERED: EPOETIN ALFA 10,000 UNIT/ML VIAL IV SCH (09:45)
[2024-05-28] MEDS ORDERED: ALBUMIN HUMAN 25% 50 ML IV SCH (10:00)
[2024-05-28] MEDS: ACETAMINOPHEN 500 MG TAB PO PRN (11:41)
--- NOTE | 2024-05-28 11:57 | EKG ---
Test Date: 2024-05-27 Test Time: 18:52:47 Marketing Recruiter: LEO MEASUREMENT RESULTS: Intervals: Rate: 77 IA: 140 QRSD: 80 QT: 386 QTc: 436 [place]: P: 24 IA: 140 QRS: -11 T: 9 INTERPRETIVE STATEMENTS: Normal sinus rhythm Normal ECG Compared to ECG 04/14/2024 13:52:05 Myocardial infarct finding no longer present Electronically Signed On 05-28-24 11:56:22 WORD PROCESSOR TECHNICIAN by Juancho Dailey
[2024-05-28] MEDS: SEVELAMER CARBONATE 800 MG TABLET PO SCH (12:00)
[2024-05-28] MEDS: NEPRO SHAKE 237 ML CAN PO SCH (14:00)
[2024-05-28] MEDS: SILVER SULFADIAZINE 1% 25 GM TOP ONE (14:16)
--- NOTE | 2024-05-28 15:58 | P.PN ---
Subjective Date of Service: 05/28/24 Chief Complaint: Left foot ulcer and pain Pantient has no new complain. He has intermittent fever. Physical Examination - Vital Signs Temperature: 99 F Blood Pressure: 133/74 Pulse: 95 Respirations: 20 Pulse Ox (%): 92 - Studies Laboratory Data (last 24 hrs) 05/27/24 05/27/24 05/27/24 18:30 18:30 18:30 WBC 10.50 Hgb 9.6 L Hct 29.2 L Plt Count 299 PT 14.8 H INR 1.32 Sodium 134 L Potassium 4.3 BUN 36 H Creatinine 7.42 H Glucose 120 H Magnesium 2.1 Total Bilirubin 0.4 AST 13 L ALT 17 Alkaline Phosphatase 141 H Assessment And Plan - Plan Physical examination General: Alert and oriented x3, NAD, HEENT: Conjunctiva not pale, anicteric sclera Neck: Supple, no elevated JVD Heart: Heart sounds 1 and 2 normal, regular rhythm, normal rate, 1+ right lower extremity edema Lungs: Clear to auscultation bilaterally, adequate breath sounds bilaterally, no rhonchi or crackles. Abdomen: Soft, nondistended, nontender, normal bowel sounds. Extremities: No tenderness. Skin: Bilateral lower extremity venous stasis dermatitis, 2 ulcers -1 on the lateral edge of the left foot, the other on the lateral edge of the left heel. Neuro: No focal motor deficit. Normal speech. Legally blind. Psychiatry: Normal mood, no agitation. Problem List: Sepsis secondary to Left Foot Osteomyelitis, s/p I&D (04/12) History Proteus Vulgaris bacteremia History of wound infection with Proteus, Enterococcus and Escherichia fergusoni Peripheral vascular disease. ESRD on HD MWF IDDM2 Anemia of chronic kidney disease Hyponatremia Hypoglycemia DM type II Obstructive sleep apnea Hypertension Plan: Sepsis secondary to Left Foot Osteomyelitis, s/p I&D (04/12) Proteus Vulgaris Bacteremia MRI foot (04/11): osteomyelitis of the base of the fourth and fifth metatarsals. X-ray of the left foot: Destructive changes involving the base of the left fifth metatarsal, and cortical irregularity at base of the fourth metatarsal. Dr. Quintero, general surgeon evaluated patient and recommend wound care s/p I&D with bone biopsy on 04/12. Wound cx (04/10): Proteus vulgaris and Enterococcus Faecalis Surgical Wound cx (04/12): Proteus vulgaris, Enterococcus Faecalis, Escherichia Fergusoni Blood cx (04/10): Proteus Vulgaris Initial plan was patient to complete 6 weeks of IV cefepime and vancomycin in the usp. Prior to that patient needed to be transferred to [facility] for IV access for outpatient IV antibiotics in the form of tunneled central venous catheter. Patient was transferred to [facility], and according to the patient and access was placed and later removed. He was discharged with oral antibiotics and another IV antibiotics to be given with dialysis. Retrieve medical records from [facility]. Nephrology Dr. Russo evaluated patient. He currently has sepsis-fever and tachycardia, no leukocytosis. Patient has refused amputations during previous admissions. Will continue IV cefepime and vancomycin based on prior cultures. Infectious disease Dr. Godfrey consulted to evaluate and assist with antibiotic treatment. Of note patient was denied LTAC placement, including an appeal. Follow blood cultures and wound culture. Peripheral vascular disease Arterial Doppler shows monophasic waveforms throughout the left lower extremity indicate a significant aortoiliac stenosis Vascular surgeon Dr. Huerta consulted to evaluate for intervention as needed ESRD on HD MWF Nephrology is following Routine hemodialysis per nephrology. IDDM2 Patient had an episode of hypoglycemia last night. accu-cheks, SSI. Hold home dose Semglee for now Anemia of chronic kidney disease. Drop in hemoglobin is likely hemodilution and accompanied by drop in platelets count. Monitor H&H and transfuse PRBC for hemoglobin less than 7. Hyponatremia Resolved Sleep obstructive sleep apnea. CPAP during sleep Hypertension continue home medications Elevated troponin Secondary to chronic kidney disease Trend troponin. VTE: heparin sq Code: Full
[2024-05-28] MEDS ORDERED: VANCOMYCIN 1 GM in NA CHLORIDE 0.9% 250 ML IVPB SCH (17:00)
[2024-05-28] MEDS: EPOETIN ALFA 10,000 UNIT/ML VIAL IV SCH (17:15)
[2024-05-28] MEDS: LACTOBACILLUS/ACIDOPHILUS TAB PO SCH (17:30)
[2024-05-28] MEDS: CEFEPIME 1 GM in NA CHLORIDE 0.9% 100 ML IV SCH (18:11)
--- NOTE | 2024-05-28 18:24 | CON ---
History Of Present Illness: This is a 59-year-old male, known to me from previous admissions. I was consulted for IV antibiotic management and osteomyelitis of the left foot. The patient has significant past medical history of end-stage renal disease, diabetes mellitus, hypertension. Denies any pain or discomfort. X-ray shows that the patient has destructive process with erosion of the bone as osteomyelitis of the fifth metatarsal bone at distal end, also involving fourth metatarsal base. The patient denies any other problems at this time. The patient on April 12 had Proteus vulgaris and Enterococcus faecalis and E coli. Blood culture and wound cultures are pending. Past Medical History: As per HPI. Social History: Nonsmoker, nondrinker. Family History: Noncontributory. Medications: Cefepime. See [facility] for other medications. Allergies: NO KNOWN DRUG ALLERGIES. Review of Systems: Ten-point review was performed. Physical Examination: General: This is a 59-year-old male, lying in bed, not in any acute cardiopulmonary distress. Vital Signs: Temperature 101, pulse 95, respiration 20, blood pressure 136/74. HEENT: Unremarkable. Neck: Supple. Lungs: Basal crackles. Heart: S1, S2 regular. Abdomen: Soft, nontender. Bowel sounds present. Extremities: Left foot with multiple ulcerations noted at the lateral aspect. Imaging: X-ray of the foot shows the patient has destructive changes involving the base of the fifth metatarsal, ulceration soft tissue lateral forefoot, pathological fracture with cortical irregular base of the fourth metatarsal. Findings represent osteomyelitis. Cultures from this visit is pending. Assessment And Plan: 1. A 59-year-old male with osteomyelitis of fifth metatarsal base and fourth metatarsal base. Consider surgical debridement. Consider antibiotic for 6 weeks with vancomycin and oral gram-negative coverage. Continue supportive care and wound care. Monitor signs of infection with WBC and fever trend. 2. Anemia of chronic disease. 3. End-stage renal disease. 4. Diabetes mellitus. We will follow the patient as needed. Thank you for consult. MICHELE/DARÍOL Voice ID: [id number] Report ID: [id number] ZOYA
[2024-05-28] MEDS: DOCUSATE NA 100 MG CAP PO SCH (21:00)
[2024-05-29 03:50] VITALS: BMI 42.3
[2024-05-29] MEDS: HYDROMORPHONE HCL 1 MG/ML INJ IV PRN (03:56)
[2024-05-29 05:15] LABS: Absolute Eosinophils 0.6 K/uL (0-0.5); Absolute Lymphocytes (CBC) 0.8 K/uL (0.7-4.9); Absolute Monocytes 0.9 K/uL (0.1-1.3); Absolute Neutrophil 6.1 K/uL (1.8-8.0); Basophils % 0.5 % (0-1.3); Eosinophils % 6.7 % (0-4.4); Hematocrit 28.4 % (39.6-49.0); Hemoglobin 9.2 g/dL (13.6-17.9); Lymphocytes % 9.4 % (15.3-44.8); MCH 30.1 pg (27.0-35.0); MCHC 32.5 g/dL (32.0-36.0); MCV 92.6 fL (80-100); MPV 7.3 fL (7.6-11.3); Monocytes % 11.1 % (3.3-12.3); Neutrophils % 72.3 % (41.7-73.7); Nucleated Red Blood Cells % 0.2 % (0-0); Platelets 266 thou/uL (152-406); RBC Red Blood Cell Count 3.07 M/uL (4.33-5.43); Red Cell Distribution Width 15.9 % (12.1-15.2)
[2024-05-29 05:44] LABS: Anion Gap 13.1 mEq/L (5.0-15.0); Potassium 4.1 mEq/L (3.5-5.1)
[2024-05-29] MEDS: DRISDOL (VITAMIN D=ERGOCALCIFEROL) 50000 UNIT CAP PO SCH (09:04)
[2024-05-29] MEDS: MULTIVITAMINS,THERAPEUT 1 TAB PO SCH (09:04)
--- NOTE | 2024-05-29 12:40 | P.PN ---
Date of Service: 05/29/24 Subjective: amenable to amputation of 5th toe tentative plan for surgery tomorrow continues with left foot pain ~same no acute events overnight afebrile ROS: 10 point ROS as noted above, otherwise negative Physical Exam: GEN: Alert, oriented, NAD CV: Regular rate and rhythm, 1+ RLE edema Pulm: Nonlabored respirations on room air, clear bilaterally ABD: soft, nontender, nondistended Integumentary: Bilateral lower extremity venous stasis dermatitis, 2 ulcers -1 on the lateral edge of the left foot, the other on the lateral edge of the left heel. Neuro: Normal speech, normal affect Problem List: Sepsis secondary to Left Foot Osteomyelitis, s/p recent I&D (04/12) Recurrent Bacteremia Elevated troponin Peripheral vascular disease Elevated troponin ESRD on HD MWF IDDM2 Anemia of chronic kidney disease Obstructive sleep apnea Hypertension Sepsis secondary to Left Foot Osteomyelitis, s/p recent I&D (04/12) Recurrent Bacteremia on admission, presents with worsening left foot pain. Left foot wound concerning for Osteomyelitis Initial plan was patient to complete 6 weeks of IV cefepime and vancomycin in the [facility]. Prior to that patient needed to be transferred to [facility] for IV access for outpatient IV antibiotics in the form of tunneled central venous catheter. Patient was transferred to [facility], and according to the patient and access was placed and later removed. He was discharged with oral antibiotics and another IV antibiotics to be given with dialysis. Request medical records from [facility]. Xray Foot (05/27): Destructive changes involve in the base of the 5th metatarsal. Cortical irregularity base of the 4th metatarsal. Findings consistent with Osteomyelitis s/p recent I&D with bone biopsy ~1 month ago on 04/12. Wound Cultures from last hospitalization grew - Proteus vulgaris, Enterococcus Faecalis, Escherichia Fergusoni. +Proteus Vulgaris bacteremia Continue IV cefepime and vancomycin based on prior cultures. Dr. Godfrey, ID consult Follow blood cultures and wound culture. Patient has refused amputations during previous admissions. Now seems amenable to amputation after discussion. Tentative plan for surgery tomorrow for possible left 5th toe amputation, debridement NPO at midnight Elevated troponin likely secondary to chronic kidney disease Troponins mildly elevated Peripheral vascular disease Arterial Doppler shows monophasic waveforms throughout the left lower extremity indicate a significant aortoiliac stenosis Vascular surgeon Dr. Huerta consulted to evaluate for intervention as needed ESRD on HD MWF Nephrology is following Routine hemodialysis per nephrology. IDDM2 Patient had an episode of hypoglycemia yesterday morning. BS levels fluctuating. accu-cheks, SSI. Hold home dose Semglee for now Anemia of chronic kidney disease. Stable. Daily labs Sleep obstructive sleep apnea. CPAP during sleep Hypertension. continue home medications VTE: heparin sq Code: Full Dispo: Of note patient was previously denied LTAC placement, including an appeal. Time Spent Managing Pts Care (In Minutes): 55
--- NOTE | 2024-05-29 14:45 | PN ---
Subjective: The patient is lying in bed. Denies any headache, nausea, vomiting, chest pain, abdomin al pain, constipation, diarrhea, any problems with antibiotic. Objective: Vital Signs: Temperature 97.6, pulse 67, respiration 18, blood pressure 119/75. Lungs: Basal crackles. Heart: S1, S2 regular. Abdomen: Obese. Bowel sounds present. Extremities: 1+ edema. Left foot wound noted. Laboratory Data: Shows WBC 8.4, hemoglobin 9.2, platelets 266. BUN of 25, creatinine 6.08. Culture s are pending from this visit. The patient currently on vancomycin and cefepime. Assessment And Plan: 1. Left foot osteomyelitis and diabetic foot ulcer. 2. Anemia of chronic disease. 3. End-stage renal disease. 4. Diabetes mellitus. 5. Morbid obesity. Continue current treatment. We will follow the patient as needed. NF/MODL Voice ID: [id number] Report ID: [id number]
[2024-05-29] MEDS: ONDANSETRON 4 MG/2 ML VIAL IV PRN (17:33)
[2024-05-30 05:19] LABS: Absolute Eosinophils 0.9 K/uL (0-0.5); Absolute Neutrophil 5.9 K/uL (1.8-8.0); Basophils % 0.5 % (0-1.3); Eosinophils % 9.9 % (0-4.4); Hematocrit 25.2 % (39.6-49.0); Hemoglobin 8.3 g/dL (13.6-17.9); Lymphocytes % 11.8 % (15.3-44.8); MCH 30.2 pg (27.0-35.0); MCHC 32.8 g/dL (32.0-36.0); MCV 92.1 fL (80-100); MPV 7.1 fL (7.6-11.3); Monocytes % 11.3 % (3.3-12.3); Neutrophils % 66.5 % (41.7-73.7); Platelets 275 thou/uL (152-406); RBC Red Blood Cell Count 2.74 M/uL (4.33-5.43); Red Cell Distribution Width 15.9 % (12.1-15.2)
[2024-05-30 05:57] LABS: Anion Gap 13.1 mEq/L (5.0-15.0); Magnesium 2.2 mg/dL (1.6-2.4); Potassium 4.1 mEq/L (3.5-5.1)
--- NOTE | 2024-05-30 09:13 | P.CNS ---
Date of Consult: 05/29/24 CC: Peripheral artery disease, left foot wound HPI The patient is a 59-year-old male with history of hypertension as well as diabetes and hyperlipidemia. He has a history of renal failure and is on hemodialysis. For over 4 months, the patient has had a wound in the left foot. The wound is poor to heal. It is associated with constant pain. He denies any previous vascular procedures. He reports pain with walking. He reports pain at rest in the left lower calf and foot. He reports bilateral leg edema. He has significant pigmentation to both legs. He denies any active right leg wound. Denies any history of heart disease or stroke. Denies any history of deep vein thromboses or pulmonary embolism. The patient had arterial ultrasound, which demonstrated monophasic waveforms throughout the left lower extremity. Given the presence of a poorly healing wound, recommend treatment with catheter arteriogram with possible revascularization. I recommend a right femoral approach, with diagnostic distally arthrography to evaluate for potential iliac artery stenosis. Also recommend left leg arteriogram with runoff. To evaluate the vascular supply to the wound. Procedure and involved risks, benefits and alternatives explained in detail to the patient, including potential risks of infection, bleeding, vascular injury, pulmonary embolism, pain, swelling, allergic reaction to a medication or to iodinated contrast, etc. The patient verbalized understanding. He has a right upper arm dialysis fistula. The patient states that he has had previous fistulograms with contrast without any adverse events. He is agreeable to the procedure today. PMHx HTN Type II DM Hyperlipidemia Other kidney disease - Renal failure, hemodialysis PSHx Fistulagram FHx mother - alive, has Diabetes, has Heart Disease father - alive, has Diabetes, has Heart Disease Soc Hx Never smoker Do not drink No illicit drug use Male ROS Constitutional: (-)fever, (-)night sweats, (-)chills, (-)cold intolerance, (-)heat intolerance, (+)fatigue, (-)daytime somnolence Eyes: (-)change in vision, (-)loss of vision, (-)blurred vision, (-)tearing, (- )purulent discharge Ears: (-)difficulty hearing, (-)hearing loss, (-)ear pain/ear ache, (-)tinnitus Nose: (-)nasal congestion, (-)nasal discharge, (-)epistaxis Mouth/Throat/Voice: (-)lip sores, (-)mouth sores, (-)tongue sores, (-)sore throat, (-)dysphagia, (-)odynophagia, (-)gum bleeding, (-)hoarse voice, (-)change in voice quality Neck: (-)neck pain, (-)neck stiffness, (-)neck lumps Respiratory: (-)dyspnea, (-)cough, (-)hemoptysis Cardiovascular: (-)chest pain, (-)palpitations, (-)dyspnea at rest, (+)lower extremity edema, (+)varicosities Gastrointestinal: (-)abdominal pain, (-)rectal pain, (-)vomiting, (-)vomiting blood Urinary: (-)dysuria, (-)hematuria, (-)polyuria, (-)oliguria Dermatologic/Integumentary: (-)change in hair texture, (-)change in skin texture, (+)skin wounds, (+)itching, (-)rash, (-)bruising Musculoskeletal: (+)muscle pain, (-)back pain, (+)tender points, (+)muscle cramps, (-)muscle weakness, (-)decreased muscle strength, (+)difficulty walking Neurological: (-)headaches, (-)vertigo, (-)lightheadedness, (-)fainting, (- )blackout(s), (-)numbness, (-)tingling, (-)tremor Psychiatric: (-)change in mood, (-)depression, (-)sadness interfering with function, (-)anxiety, (-)nerousness, (-)suicidal ideation Hematologic/Lymphatic: (-)easy bruising, (-)difficulty stopping blood flow, (- )lymph node enlargement Temp Pulse Resp BP Pulse Ox 98.6 F 73 20 170/68 H 97 05/30/24 08:00 05/30/24 08:00 05/30/24 08:00 05/30/24 08:00 05/30/24 08:00 Laboratory Last Values WBC 10.50 thou/uL (4.3-10.9) 05/27/24 18:30 RBC 3.11 M/uL (4.33-5.43) L 05/27/24 18:30 Hgb 9.6 g/dL (13.6-17.9) L 05/27/24 18:30 Hct 29.2 % (39.6-49.0) L 05/27/24 18:30 MCV 93.7 fL (80-100) 05/27/24 18:30 MCH 30.8 pg (27.0-35.0) 05/27/24 18:30 MCHC 32.8 g/dL (32.0-36.0) 05/27/24 18:30 RDW 16.1 % (12.1-15.2) H 05/27/24 18:30 Plt Count 299 thou/uL (152-406) 05/27/24 18:30 MPV 7.1 fL (7.6-11.3) L 05/27/24 18:30 Neutrophils % 69.3 % (41.7-73.7) 05/27/24 18:30 Lymphocytes % 11.1 % (15.3-44.8) L 05/27/24 18: Monocytes % 13.5 % (3.3-12.3) H 05/27/24 18:30 Eosinophils % 5.7 % (0-4.4) H 05/27/24 18:30 Basophils % 0.4 % (0-1.3) 05/27/24 18:30 Absolute Neutrophils 7.3 K/uL (1.8-8.0) 05/27/24 18:30 Absolute Lymphocytes 1.2 K/uL (0.7-4.9) 05/27/24 18:30 Absolute Monocytes 1.4 K/uL (0.1-1.3) H 05/27/24 18:30 Absolute Eosinophils 0.6 K/uL (0-0.5) H 05/27/24 18:30 Absolute Basophils 0.0 K/uL (0-0.5) 05/27/24 18:30 PT 14.8 SECONDS (10.0-13.0) H 05/27/24 18:30 INR 1.32 05/27/24 18:30 Sodium 134 mEq/L (136-145) L 05/27/24 18:30 Potassium 4.3 mEq/L (3.5-5.1) 05/27/24 18:30 Chloride 100 mEq/L (98-107) 05/27/24 18:30 Carbon Dioxide 26 mEq/L (21-32) 05/27/24 18:30 Anion Gap 12.3 mEq/L (5.0-15.0) 05/27/24 18:30 BUN 36 mg/dL (7-18) H 05/27/24 18:30 Creatinine 7.42 mg/dL (0.70-1.30) H 05/27/24 18:30 Est GFR (CKD-EPI) 8 ml/min (=/>90) L 05/27/24 18:30 Glucose 120 mg/dL (74-106) H 05/27/24 18:30 Lactic Acid < 0.8 mmol/L (0.90-1.70) L 05/27/24 18:30 Calcium 8.4 mg/dL (8.5-10.1) L 05/27/24 18:30 Magnesium 2.1 mg/dL (1.6-2.4) 05/27/24 18:30 Total Bilirubin 0.4 mg/dL (0.2-1.0) 05/27/24 18:30 Direct Bilirubin 0.2 mg/dL (0-0.2) 05/27/24 18:30 Indirect Bilirubin 0.2 mg/dL (0.2-0.8) 05/27/24 18:30 AST 13 U/L (15-37) L 05/27/24 18:30 ALT 17 U/L (16-61) 05/27/24 18:30 Alkaline Phosphatase 141 U/L (45-117) H 05/27/24 18:30 Troponin I High Sens 192.5 pg/mL (<58.9) H* 05/27/24 18:30 C-Reactive Protein 136.00 mg/L (<3.00) H 05/27/24 18:30 NT-Pro-B Natriuret Pep 89163 pg/mL (<125) H 05/27/24 18:30 Serum Total Protein 7.2 g/dL (6.4-8.2) 05/27/24 18:30 Albumin 2.6 g/dL (3.4-5.0) L 05/27/24 18:30 Globulin 4.6 g/dL (2.3-3.5) H 05/27/24 18:30 Albumin/Globulin Ratio 0.6 (1.1-1.8) L 05/27/24 18:30 Allergy/AdvReac Type Severity Reaction Status Date / Time No Known Allergies Allergy Verified 01/15/24 21:51 Mental/Functional The patient's speech was normal, sharing conversation with normal laryngeal efforts. Appropriate mood and affect were seen on exam. Thought processes were logical, relevant, and thoughts were completed normally. Thought content was normal. Thought content was normal with no psychotic or suicidal thoughts. The patient's judgement was realistic with normal insight into their present condition. Mental status included: correct time, place, person orientation, normal recent and remote memory, normal attention span and concentration ability. Language skills included the ability to correctly name objects. Fund of knowledge included normal awareness of current and past events. EXAM GEN: NAD, cooperative with exam, well groomed, well developed, well nourished HEENT: Head normocephalic, atraumatic, head normocephalic, head atraumatic, EOMI NECK: full range of motion, trachea midline, no increased JVP visible RESP: no respiratory distress, no use of accessory muscles of respiration CV: regular rate and rhythm , pulse rate regular GI: NL abdominal inspection, soft, nontender to palpation, no rebound/guarding/rigidity DERM: (-)diaphoresis, (-)periorbital xanthelasma, (-)xanthomas, (-)cyanosis PSYCH: alert and oriented to time, place, and person, normal mood, normal affect Right leg: The femoral pulse palpable. Dorsalis pedis and posterior tibial pulses difficult to palpate. 1+ edema. Varices of the calf. Pigmentation to the lower one half of the calf consistent with C4 venous insufficiency. Left leg: Femoral pulse palpable. Dorsalis pedis pulse strong Doppler signals. Posterior tibial pulse nonpalpable. 2+ edema. Varices of the calf. Pigmentation to the lower one half of the calf consistent with C4 venous insufficiency. Results Results of arterial ultrasound reviewed Assessment Ulcer of heel due to atherosclerosis of artery of lower limb (I70.244) [facility] [place] art of left leg w ulcer of heel and midfoot modified May, Peripheral vascular disease with rest pain (I70.222) [facility] [place] arteries of extremities w rest pain, left leg modified May, Plan 1. The patient is a 59-year-old male, with history of hypertension, diabetes, renal failure, on hemodialysis. He has a poorly healing wound of the left foot. 2. Arterial ultrasound demonstrated monophasic waveforms throughout the left lower extremity. Findings are consistent with advanced peripheral artery disease 3. Recommend treatment with catheter arteriogram with revascularization. Procedure and involved risks, benefits and alternatives explained in detail to the patient. He fully understands and consents and wishes to proceed.
[2024-05-30] MEDS ORDERED: NA CHLORIDE 0.9% 1,000 ML ONE (11:00)
[2024-05-30] MEDS ORDERED: LIDOCAINE 1% 20 ML MDV ONE (11:12)
[2024-05-30] MEDS ORDERED: HEPARIN 10,000 UNIT/10 ML VIAL IV ONE (11:12)
[2024-05-30] MEDS ORDERED: FENTANYL CITR 100 MCG/2 ML ONE (11:13)
[2024-05-30] MEDS ORDERED: ATROPINE SULF 1 MG/10 ML SYR IV ONE (11:13)
[2024-05-30] MEDS ORDERED: PROTAMINE SULF 50 MG/5ML INJ IV ONE (11:13)
[2024-05-30] MEDS ORDERED: MIDAZOLAM HCL 2 MG/2 ML INJ ONE (11:13)
[2024-05-30] MEDS ORDERED: NALOXONE 0.4 MG/ML VIAL ONE (11:13)
[2024-05-30] MEDS ORDERED: FLUMAZENIL 0.1 MG/ML (5 mL VIAL) IV ONE (11:13)
--- NOTE | 2024-05-30 11:28 | P.PN ---
Date of Service: 05/30/24 Subjective: no events overnight NPO for angio today afebrile ROS: 10 point ROS as noted above, otherwise negative Physical Exam: GEN: Alert, oriented, NAD CV: Regular rate and rhythm Pulm: Nonlabored respirations on room air, clear bilaterally ABD: soft, nontender, nondistended Integumentary: Bilateral lower extremity venous stasis dermatitis, foot ulcers Neuro: Normal speech, normal affect Problem List: Sepsis secondary to Left Foot Osteomyelitis, s/p recent I&D (04/12) Recurrent Bacteremia Elevated troponin Peripheral vascular disease Elevated troponin ESRD on HD MWF IDDM2 Anemia of chronic kidney disease Obstructive sleep apnea Hypertension Sepsis secondary to Left Foot Osteomyelitis, s/p recent I&D (04/12) Recurrent Bacteremia on admission, presents with worsening left foot pain. Left foot wound concerning for Osteomyelitis Initial plan was patient to complete 6 weeks of IV cefepime and vancomycin in the [facility]. Prior to that patient needed to be transferred to [facility] for IV access for outpatient IV antibiotics in the form of tunneled central venous catheter. Patient was transferred to [facility], and according to the patient and access was placed and later removed. He was discharged with oral Levaquin and IV Vanc to be given with dialysis. End date for oral Levaquin per OSH records from [facility] (06/13/24, started oral Levaquin 05/02) Xray Foot (05/27): Destructive changes involve in the base of the 5th metatarsal. Cortical irregularity base of the 4th metatarsal. Findings consistent with Osteomyelitis Wound Cultures from last hospitalization grew - Proteus vulgaris, Enterococcus Faecalis, Escherichia Fergusoni. +Proteus Vulgaris bacteremia Continue IV cefepime and vancomycin based on prior cultures. s/p recent I&D with bone biopsy ~1 month ago on 04/12. Dr. Godfrey, ID consult Follow blood cultures and wound culture. Patient has refused amputations during previous admissions. Now seems amenable to amputation after discussion. NPO for LLE angiogram with possible revascularization today with Dr. Huerta Elevated troponin likely secondary to chronic kidney disease Troponins mildly elevated Peripheral vascular disease Arterial Doppler shows monophasic waveforms throughout the left lower extremity indicate a significant aortoiliac stenosis Vascular surgeon Dr. Huerta consulted to evaluate for intervention as needed NPO for LLE arteriogram with possible revascularization ESRD on HD MWF Nephrology is following Routine hemodialysis per nephrology. IDDM2 Patient had an episode of hypoglycemia yesterday morning. BS levels fluctuating. accu-cheks, SSI. Hold home dose Semglee for now Anemia of chronic kidney disease. Stable. Daily labs Sleep obstructive sleep apnea. CPAP during sleep Hypertension. continue home medications VTE: heparin sq Code: Full Dispo: possible dc in next day or 2 Time Spent Managing Pts Care (In Minutes): 55
[2024-05-30 12:50] VITALS: O2SAT 97
--- NOTE | 2024-05-30 17:54 | P.OP ---
Date of Service: 05/30/24 Procedures performed 1. Right common femoral artery puncture under ultrasound guidance with placement of sheath 2. Placement of catheter distal aorta with distal aortography and pelvic angiography 3. Left superficial femoral artery catheterization with left leg diagnostic arteriogram with runoff to the foot 4. Left posterior tibial artery balloon angioplasty 5. Hemostasis using the Mynx vascular closure device. History The patient is a 59-year-old male who has a poorly healing left foot wound. Wound has been present for more than 4 months. He also has constant pain associated with the wound. Arterial ultrasound demonstrated significant left leg peripheral artery disease with monophasic waveforms. Given the presence for Elma 5 critical limb threatening ischemia, patient presents for catheter arteriogram and revascularization. Dosimetry Procedure was performed in the microbiological lab technician on a [employer] System Sedation: Provided by the performing physician Drugs administered for sedation: 1 mg Versed IV, 50 mcg fentanyl IV Sedation time (minutes): 48 The performing physician was directly supervising a trained, independent observer, who was present throughout moderate sedation, and providing constant monitoring of the patient throughout moderate sedation, including monitoring the patient's level of consciousness as well as physiological status, including monitoring measurements of blood pressure, pulse oximetry, heart rhythm, and patient responsiveness. This observer had no other duties other than monitoring the patient. Estimated blood loss: Less than 10ml Procedure PROCEDURE: Lower extremity angiography and interventions Attending physician: Kacey Huerta MD Procedure Date (/yyyy): 05/30/24 Pre-procedure diagnosis: Severe peripheral artery disease with ischemic rest pain, critical limb threatening ischemia and left foot wound Post-procedure diagnosis: Severe peripheral artery disease with ischemic rest pain, critical limb threatening ischemia and left foot wound Indication: Critical limb threatening ischemia, Elma stage 5 Complications: No immediate complications. PROCEDURE SUMMARY: - Arterial access Guidance: with ultrasound guidance - Unilateral: Unilateral leg lower extremity diagnostic angiography as described below - Arterial interventions as described below PROCEDURE DETAILS: Pre-procedure Consent: Informed consent for the procedure including risks, benefits and alternatives was obtained and time-out was performed prior to the procedure. Preparation: The site was prepared and draped using maximal sterile barrier technique including cutaneous antisepsis. Access Local anesthesia was administered. Vascular access was obtained Access guidance: Ultrasound access with permanent image stored. Real-time high resolution ultrasound was used with color, duplex and spectral techniques to evaluate the common femoral, dorsalis pedis and posterior tibial arteries for patency and suitability for puncture. Vascular puncture was performed under real time ultrasound visualization. Sheath size (Kazakh): 6 Access location: Right common femoral artery. Artery was patent and suitable for puncture, under ultrasound evaluation, and image documenting patency and guidance was stored Access direction: Retrograde Access technique: Micropuncture set with 21 gauge needle Aortography Indication for aortography: Diagnostic - no prior angiographic study. Arterial ultrasound demonstrated monophasic waveforms, with suspicion for aortoiliac stenosis. Vessel catheterized: Abdominal below the level of the renal arteries Findings: The distal aorta is patent. Pelvic angiography was also obtained, which demonstrates patent bilateral common and external iliac arteries. There is no evidence for iliac artery stenosis bilaterally. Left lower extremity angiography and interventions Lower extremity arterial system was catheterized using a combination of flush catheter and Glidewire advantage. The catheter was introduced into the left superficial femoral artery for diagnostic arteriogram. Indication for angiography: Diagnostic - no prior angiographic study. Based on the results of the diagnostic angiogram, decision was made to proceed with interventions as described. The diagnostic angiogram was the basis for proceeding with the therapeutic procedure and interventions. Vessel catheterized: Left superficial femoral artery Findings: Left leg arteriogram demonstrates a patent common femoral artery. Superficial femoral artery is patent with a patent popliteal artery. The anterior tibial arteries patent; peroneal artery is small in caliber. The posterior tibial artery provides direct flow to the wound in the foot. The posterior tibial artery demonstrates a focal, eccentric, calcified 90% stenosis at the mid calf. Because the posterior tibial artery supplies flow directly to the wound, decision was made for balloon angioplasty. ~Intervention Lesion 1 ~Artery segment of target lesion: Left posterior tibial artery ~Lesion length (cm): 1 cm ~Percent stenosis (%): 90% ~Technical details: There is focal, critical stenosis at the left mid calf posterior tibial artery. This lesion was crossed with a 0.4 Glidewire advantage wire. After it was crossed, it was treated with balloon angioplasty. A 2.5 mm x 20 mm coronary balloon was used for balloon angioplasty with inflation to 8 ruba. Arteriogram demonstrated good results. ~Treatment successful: Yes ~~Angioplasty ~~Angioplasty balloon type: Conventional ~~Balloon length (mm): 20 ~~Balloon diameter (mm): 2.5 ~~Balloon angioplasty inflation ruba: 8 ~Angiography ~Post-intervention angiography: After balloon angioplasty, the posterior tibial artery was patent with improved flow to the calf and wound. Closure Arterial closure technique: Mynx device and Direct manual compression for 10 minutes Hemostasis achieved from closure technique: Yes Impression 1. Patent iliac arteries without evidence for iliac artery stenosis 2. Patent left superficial femoral artery and patent popliteal artery. Patent anterior tibial artery. 3. Focal critical stenosis of the left mid calf posterior tibial artery treated with 2.5 mm balloon angioplasty with good results
--- NOTE | 2024-05-30 17:56 | PN ---
Subjective: The patient is somnolent because of surgical procedure done, revascularization procedure done on him. The patient was just brought in from the OR to his room, not in any distress. Objective: Vital Signs: Temperature 98, pulse 69, respirations 14, blood pressure 131/61. Lungs: Basal crackles. Heart: S1, S2. Regular. Abdomen: Soft, nontender. Bowel sounds present. Extremities: Trace edema. Wound noted. Laboratory Data: Shows WBC 8.9, hemoglobin 8.3, platelets are 275. Chemistry shows BUN of 38, creat inine 7.6. Assessment And Plan: Left foot osteomyelitis; ulceration; peripheral arterial disease, status post r evascularization; end-stage renal disease; anemia of chronic disease. We will follow the patient as needed. Continue antibiotic and supportive care. We will follow the patient as needed. NF/MODL Voice ID: [id number] Report ID: [id number]
[2024-05-30] MEDS ORDERED: VANCOMYCIN 1 GM in NA CHLORIDE 0.9% 250 ML IVPB SCH (18:00)
[2024-05-30] MEDS: VANCOMYCIN 1 GM in NA CHLORIDE 0.9% 250 ML IVPB SCH (20:07)
--- NOTE | 2024-05-30 21:09 | P.PN ---
Date of Service: 05/30/24 Vital Signs Temp Pulse Resp BP Pulse Ox 97.2 F 71 16 134/63 94 05/30/24 20:00 05/30/24 20:07 05/30/24 20:00 05/30/24 20:07 05/30/24 20:00 Medications Acetaminophen (Acetaminophen 500 Mg Tab) 500 mg PO Q6H PRN PRN Reason: TEMP > 100' F Last Admin: 05/28/24 11:41 Dose: 500 mg Albuterol Sulfate (Albuterol 2.5 Mg/3 Ml Neb Shira) 2.5 mg NEB TID PRN PRN Reason: SHORTNESS OF BREATH Carvedilol (Carvedilol 25 Mg Tab) 25 mg PO BID 6AM 6PM [facility] Last Admin: 05/30/24 20:07 Dose: 25 mg Docusate Sodium (Docusate Na 100 Mg Cap) 100 mg PO BID [facility] Last Admin: 05/30/24 09:00 Dose: Not Given Enteral Nutritional Formula (Nepro Shake 237 Ml Can) 240 ml PO TID [facility] Last Admin: 05/30/24 13:24 Dose: Not Given Epoetin Pierce (Epoetin Pierce 10,000 Unit/Ml Vial) 10,000 unit IV EVERY HD [facility] Last Admin: 05/30/24 18:30 Dose: 10,000 unit Heparin Sodium (Porcine) (Heparin 5000 Unit/Ml 1 Ml Vial) 5,000 unit SQ Q12HR [facility] Last Admin: 05/30/24 20:08 Dose: 5,000 unit Heparin Sodium (Porcine) (Heparin 1,000 Unit/Ml Vial) 3,000 unit IV EVERY HD PRN PRN Reason: Prevent HD System Clotting Last Admin: 05/30/24 15:42 Dose: 3,000 unit Hydralazine HCl (Hydralazine Hcl 20 Mg/Ml Vial) 10 mg IV Q6HP PRN PRN Reason: Titrate to SBP (MUST DEFINE) Cefepime HCl 1 gm/ Sodium (Chloride) 100 mls @ 200 mls/hr IV Q24H [facility]; Protocol Last Admin: 05/30/24 20:06 Dose: 100 mls Albumin Human (Albumin 25%) 50 mls @ 100 mls/hr IV EVERY HD [facility] Vancomycin HCl 1 gm/ Sodium (Chloride) 250 mls @ 250 mls/hr IVPB AFTER EACH DIALYSIS [facility]; Protocol Insulin Human Lispro (Insulin Lispro 100 Unit/1 Ml) 0 unit SQ ACHS [facility]; Protocol Stop: 06/01/24 21:01 Last Admin: 05/30/24 16:26 Dose: Not Given Lactobacillus Acidoph/Bulgaricus (Lactobacillus/Acidophilus Tab) 1 tab PO BIDPC [facility] Last Admin: 05/30/24 16:55 Dose: Not Given Mannitol (Mannitol 25% 12.5 Gm/50 Ml Vial) 12.5 gm IV EVERY HD PRN PRN Reason: Titrate to SBP (MUST DEFINE) Morphine Sulfate (Morphine 4 Mg/Ml Syr) 4 mg IV Q6H PRN PRN Reason: Pain scale 8-10 (Severe) Ondansetron HCl (Ondansetron 4 Mg/2 Ml Vial) 4 mg IV Q8H PRN PRN Reason: NAUSEA / VOMITING Last Admin: 05/29/24 17:33 Dose: 4 mg Oxycodone/Acetaminophen (Oxycodone Hcl/Acetaminophen 5/325 Mg Tab) 1 tab PO Q4H PRN PRN Reason: Pain scale 5-7 (Moderate) Sevelamer Carbonate (Sevelamer Carbonate 800 Mg Tablet) 800 mg PO TIDWM [facility] Last Admin: 05/30/24 16:55 Dose: Not Given Vitamin B Complex/Vit C/Folic Acid (Multivitamins,Therapeut 1 Tab) 1 tab PO DAILY [facility] Last Admin: 05/30/24 09:00 Dose: Not Given Microbiology Results 05/27/24 18:30 Blood - Blood Aerobic Blood Culture - Preliminary No growth in 24 hours. 05/27/24 18:30 Blood - Blood Anaerobic Blood Culture - Preliminary No growth in 24 hours. 05/27/24 18:15 Blood - Blood Aerobic Blood Culture - Preliminary No growth in 24 hours. 05/27/24 18:15 Blood - Blood Anaerobic Blood Culture - Preliminary No growth in 24 hours. Assessment/ Plan: Nephrology Progress Note: Nephrology Progress Note No Dyspnea No Chest Pain No Acute Events Overnight Vital Signs, Medications, Blood Work, and Imaging reviewed in the chart General: Oriented x3, Cooperative HEENT: Atraumatic Neck: Supple Respiratory: Normal air movement Cardiovascular: Regular rate/rhythm, Edema Gastrointestinal: Soft and benign, Non-distended Musculoskeletal: No clubbing, No contractures Integumentary: No rashes, No cyanosis, Diabetic ulcer Neurological: Normal speech Laboratory Data (last 24 hrs) 05/27/24 05/27/24 05/27/24 18:30 18:30 18:30 WBC 10.50 Hgb 9.6 L Hct 29.2 L Plt Count 299 PT 14.8 H INR 1.32 Sodium 134 L Potassium 4.3 BUN 36 H Creatinine 7.42 H Glucose 120 H Magnesium 2.1 Total Bilirubin 0.4 AST 13 L ALT 17 Alkaline Phosphatase 141 H Imagings Data: [id number] Exam:Foot Left 3 View CLINICAL HISTORY: Left foot pain FINDINGS: Ulceration soft tissue lateral forefoot. Destructive changes involve the base of the fifth metatarsal. There is an equivocal pathologic fracture. Cortical irregularity base of the fourth metatarsal. These findings represent osteomyelitis. EXAM:Extremity Venous Uni Ltd HISTORY: Left leg pain TECHNIQUE: Sonographic evaluation left lower extremity performed.Grayscale, color and spectral analysis performed on all vessels COMPARISON: 2023. FINDINGS: Left common femoral, superficial femoral, greater saphenous, popliteal and posterior tibial veins are compressible and demonstrate augmentation. Doppler demonstrates good flow. IMPRESSION: No evidence of deep venous thrombosis involving the left lower extremity. EXAM:Lower Extremity Artery Uni Ltd HISTORY: Left eg pain TECHNIQUE: Sonographic evaluation left lower extremity arteries performed.Grayscale, color and spectral analysis performed on all vessels COMPARISON: None. FINDINGS: The left common femoral, superficial femoral, popliteal, posterior tibial, dorsalis pedis and posterior tibial arterial waveforms are monophasic No occlusion seen. IMPRESSION: Monophasic waveforms throughout the left lower extremity indicate a significant aortoiliac stenosis Procedure: Chest Single View HISTORY: Cough COMPARISON: April 2024 FINDINGS: The lungs appear clear of acute infiltrate. No significant pleural effusion noted. The heart is mildly to moderately enlarged. IMPRESSION: No acute abnormality is displayed. Conclusions/Impression: ESRD on HD MWF -HD TIW HTN with CKD/ CHF -Continue Coreg Diastolic CHF, chronic -UF with HD -Low sodium diet DM II with CKD & Polyneuropathy -RISHI Hypoalbuminemia -Continue Nepro Anemia in CKD -Retacrit qHD CKD MBD Secondary HyperParathyroidism -Continue Renvela -Continue Ergo PAD s/p angioplasty 05-30-24 DM II with Left foot ulcer/ Osteomyelitis s/p I&D 04-12-24 -Continue Abx -Wound care as ordered -Follow up with surgery Hospitalist and Vascular note reviewed
[2024-05-31] MEDS: MORPHINE 4 MG/ML SYR IV PRN (02:13)
[2024-05-31 05:54] LABS: Hemoglobin 11.2 g/dL (13.6-17.9); MCH 29.6 pg (27.0-35.0); MCHC 31.9 g/dL (32.0-36.0); MCV 92.8 fL (80-100); MPV 7.3 fL (7.6-11.3); Platelets 271 thou/uL (152-406); RBC Red Blood Cell Count 3.78 M/uL (4.33-5.43); Red Cell Distribution Width 15.9 % (12.1-15.2)
[2024-05-31 06:12] LABS: Anion Gap 13.1 mEq/L (5.0-15.0); Magnesium 2.1 mg/dL (1.6-2.4); Potassium 4.1 mEq/L (3.5-5.1)
[2024-05-31 09:04] VITALS: BP 162/71; TEMP 97.9
[2024-05-31] MEDS: Oxycodone HCl/Acetaminophen 5/325 MG TAB PO PRN (09:17)
[2024-05-31] MEDS: CLOPIDOGREL 75 MG TABLET PO ONE (09:25)
[2024-05-31] MEDS: ASPIRIN EC 81 MG TAB PO ONE (09:25)
--- NOTE | 2024-05-31 10:19 | P.PN ---
Date of Service: 05/31/24 Vital Signs Temp Pulse Resp BP Pulse Ox 97.9 F 74 22 H 162/71 H 94 05/31/24 08:00 05/31/24 08:00 05/31/24 08:00 05/31/24 08:00 05/31/24 08:00 Medications Acetaminophen (Acetaminophen 500 Mg Tab) 500 mg PO Q6H PRN PRN Reason: TEMP > 100' F Last Admin: 05/28/24 11:41 Dose: 500 mg Albuterol Sulfate (Albuterol 2.5 Mg/3 Ml Neb Shira) 2.5 mg NEB TID PRN PRN Reason: SHORTNESS OF BREATH Carvedilol (Carvedilol 25 Mg Tab) 25 mg PO BID 6AM 6PM [facility] Last Admin: 05/31/24 05:58 Dose: 25 mg Docusate Sodium (Docusate Na 100 Mg Cap) 100 mg PO BID [facility] Last Admin: 05/31/24 09:19 Dose: 100 mg Enteral Nutritional Formula (Nepro Shake 237 Ml Can) 240 ml PO TID [facility] Last Admin: 05/31/24 09:00 Dose: Not Given Epoetin Pierce (Epoetin Pierce 10,000 Unit/Ml Vial) 10,000 unit IV EVERY HD [facility] Last Admin: 05/30/24 18:30 Dose: 10,000 unit Heparin Sodium (Porcine) (Heparin 5000 Unit/Ml 1 Ml Vial) 5,000 unit SQ Q12HR [facility] Last Admin: 05/31/24 09:18 Dose: 5,000 unit Heparin Sodium (Porcine) (Heparin 1,000 Unit/Ml Vial) 3,000 unit IV EVERY HD PRN PRN Reason: Prevent HD System Clotting Last Admin: 05/30/24 15:42 Dose: 3,000 unit Hydralazine HCl (Hydralazine Hcl 20 Mg/Ml Vial) 10 mg IV Q6HP PRN PRN Reason: Titrate to SBP (MUST DEFINE) Albumin Human (Albumin 25%) 50 mls @ 100 mls/hr IV EVERY HD [facility] Vancomycin HCl 1 gm/ Sodium (Chloride) 250 mls @ 250 mls/hr IVPB AFTER EACH DIALYSIS [facility]; Protocol Insulin Human Lispro (Insulin Lispro 100 Unit/1 Ml) 0 unit SQ ACHS [facility]; Protocol Stop: 06/01/24 21:01 Last Admin: 05/31/24 07:30 Dose: Not Given Lactobacillus Acidoph/Bulgaricus (Lactobacillus/Acidophilus Tab) 1 tab PO BIDPC [facility] Last Admin: 05/31/24 09:18 Dose: 1 tab Mannitol (Mannitol 25% 12.5 Gm/50 Ml Vial) 12.5 gm IV EVERY HD PRN PRN Reason: Titrate to SBP (MUST DEFINE) Morphine Sulfate (Morphine 4 Mg/Ml Syr) 4 mg IV Q6H PRN PRN Reason: Pain scale 8-10 (Severe) Last Admin: 05/31/24 02:13 Dose: 4 mg Ondansetron HCl (Ondansetron 4 Mg/2 Ml Vial) 4 mg IV Q8H PRN PRN Reason: NAUSEA / VOMITING Last Admin: 05/29/24 17:33 Dose: 4 mg Oxycodone/Acetaminophen (Oxycodone Hcl/Acetaminophen 5/325 Mg Tab) 1 tab PO Q4H PRN PRN Reason: Pain scale 5-7 (Moderate) Last Admin: 05/31/24 09:17 Dose: 1 tab Sevelamer Carbonate (Sevelamer Carbonate 800 Mg Tablet) 800 mg PO TIDWM [facility] Last Admin: 05/31/24 09:17 Dose: 800 mg Vitamin B Complex/Vit C/Folic Acid (Multivitamins,Therapeut 1 Tab) 1 tab PO DAILY [facility] Last Admin: 05/31/24 09:18 Dose: 1 tab Microbiology Results 05/27/24 18:30 Blood - Blood Aerobic Blood Culture - Preliminary No growth in 24 hours. 05/27/24 18:30 Blood - Blood Anaerobic Blood Culture - Preliminary No growth in 24 hours. 05/27/24 18:15 Blood - Blood Aerobic Blood Culture - Preliminary No growth in 24 hours. 05/27/24 18:15 Blood - Blood Anaerobic Blood Culture - Preliminary No growth in 24 hours. Assessment/ Plan: Nephrology Progress Note: Nephrology Progress Note No Dyspnea No Chest Pain Feeling better today No Acute Events Overnight Vital Signs, Medications, Blood Work, and Imaging reviewed in the chart General: Oriented x3, Cooperative HEENT: Atraumatic Neck: Supple Respiratory: Normal air movement Cardiovascular: Regular rate/rhythm, Edema Gastrointestinal: Soft and benign, Non-distended Musculoskeletal: No clubbing, No contractures Integumentary: No rashes, No cyanosis, Diabetic ulcer Neurological: Normal speech Laboratory Data (last 24 hrs) 05/27/24 05/27/24 05/27/24 18:30 18:30 18:30 WBC 10.50 Hgb 9.6 L Hct 29.2 L Plt Count 299 PT 14.8 H INR 1.32 Sodium 134 L Potassium 4.3 BUN 36 H Creatinine 7.42 H Glucose 120 H Magnesium 2.1 Total Bilirubin 0.4 AST 13 L ALT 17 Alkaline Phosphatase 141 H Imagings Data: [id number] Exam:Foot Left 3 View CLINICAL HISTORY: Left foot pain FINDINGS: Ulceration soft tissue lateral forefoot. Destructive changes involve the base of the fifth metatarsal. There is an equivocal pathologic fracture. Cortical irregularity base of the fourth metatarsal. These findings represent osteomyelitis. EXAM:Extremity Venous Uni Ltd HISTORY: Left leg pain TECHNIQUE: Sonographic evaluation left lower extremity performed.Grayscale, color and spectral analysis performed on all vessels COMPARISON: 2023. FINDINGS: Left common femoral, superficial femoral, greater saphenous, popliteal and posterior tibial veins are compressible and demonstrate augmentation. Doppler demonstrates good flow. IMPRESSION: No evidence of deep venous thrombosis involving the left lower extremity. EXAM:Lower Extremity Artery Uni Ltd HISTORY: Left eg pain TECHNIQUE: Sonographic evaluation left lower extremity arteries performed.Grayscale, color and spectral analysis performed on all vessels COMPARISON: None. FINDINGS: The left common femoral, superficial femoral, popliteal, posterior tibial, dorsalis pedis and posterior tibial arterial waveforms are monophasic No occlusion seen. IMPRESSION: Monophasic waveforms throughout the left lower extremity indicate a significant aortoiliac stenosis Procedure: Chest Single View HISTORY: Cough COMPARISON: April 2024 FINDINGS: The lungs appear clear of acute infiltrate. No significant pleural effusion noted. The heart is mildly to moderately enlarged. IMPRESSION: No acute abnormality is displayed. Conclusions/Impression: ESRD on HD MWF -HD TIW HTN with CKD/ CHF -Continue Coreg Diastolic CHF, chronic -UF with HD -Low sodium diet DM II with CKD & Polyneuropathy -RISHI Hypoalbuminemia -Continue Nepro Anemia in CKD -Retacrit qHD CKD MBD Secondary HyperParathyroidism -Continue Renvela -Continue Ergo PAD s/p angioplasty 05-30-24 DM II with Left foot ulcer/ Osteomyelitis s/p I&D 04-12-24 -Continue Abx -Wound care as ordered -Follow up with surgery Hospitalist and Vascular note reviewed Case reviewed with Dr. Carey; possible discharge today
--- NOTE | 2024-06-02 06:28 | P.DS ---
Admission Date: 05/27/24 Discharge Date: 05/31/24 Disposition: ROUTINE DISCHARGE Discharge Condition: GOOD Reason for Admission: Left foot ulcer and pain Consultations: General surgery - Dr. Quintero Nephrology - Dr. Russo Vascular - Dr. Huerta Infectious Disease - Dr. Godfrey Brief History of Present Illness: 59yo M, PMH: HTN/DM/ESRD on HD MWF, chronic left foot wound follows in wound clinic with Dr. Quintero Patient presented to the hospital because of worsening pain as well as nonhealing ulcer. Patient states he has had debridement of the wound in the past. Ulcer continue to extend around the lateral border of the foot as well as a new ulcer on the left heel. Ulcer seems to be getting worse. On arrival in the ED vital signs were stable afebrile. X-ray shows destructive process with erosion of the skin and possible osteomyelitis of the fifth metatarsal bone. Arterial Doppler shows significant aorto iliac stenosis. Venous Doppler shows no DVT bilateral lower extremity. CBC including WBC and BMP pending. Patient stated pain has been very disturbing and limiting his ambulation. Hospital Course: Problem List: Sepsis secondary to Left Foot Osteomyelitis, s/p recent I&D (04/12) Recurrent Bacteremia Elevated troponin Peripheral vascular disease Elevated troponin ESRD on HD MWF IDDM2 Anemia of chronic kidney disease Obstructive sleep apnea Hypertension Patient presented with worsening left foot pain. He was recently hospitalized for similar last month - diagnosed with sepsis and osteomyelitis of left foot at that time. Transferred to [facility] for IV access for IV antibiotics. He was discharged from [facility] with antibiotic plan of IV vancomycin with dialysis and oral levaquin (end date 06/13/24) There was no obvious worsening of infection / wounds. He did have increased swelling in his left lower extremity. Blood cultures without growth, and he remained afebrile and without leukocytosis. Increased pain was felt to be more from blood flow, swelling, and x-ray noted appearance of fracture in the 5th toe where he was previously diagnosed with osteomyelitis. General Surgery, Vascular, and ID were consulted. He underwent balloon angioplasty in his Left lower extremity with good success by Dr. Huerta. Started aspirin 81mg and Plavix daily. Dr. Quintero and Dr. Huerta discussed options with Mr. Koenig, and given the good result afer re-vascularization, the plan at this point is to allow some time for perfusion/recovery, see how the foot heals / demarcates prior to any further debridement/amputation in the near future. He will follow up with Dr. Quintero and Dr. Huerta. He has an appointment with Dr. Quintero tomorrow, and Dr. Huerta on 06/20/24 He will continue the antibiotic plan as noted when discharged from [facility] - Vancomycin with dialysis and oral levaquin. Continue home meds as previously prescribed. And new medications: Aspirin 81mg daily Plavix 75mg daily Physical Exam: GEN: Alert, oriented, NAD CV: Regular rate and rhythm Pulm: Nonlabored respirations on room air, clear bilaterally ABD: soft, nontender, nondistended Integumentary: Bilateral lower extremity venous stasis dermatitis, foot ulcers Neuro: Normal speech, normal affect Vital Signs/Physical Exam: Temp Pulse Resp BP Pulse Ox 97.9 F 74 22 H 162/71 H 94 05/31/24 08:00 05/31/24 08:00 05/31/24 08:00 05/31/24 08:00 05/31/24 08:00 Laboratory Data at Discharge: WBC 6.80 thou/uL (4.3-10.9) 05/31/24 05:29 Hgb 11.2 g/dL (13.6-17.9) L D 05/31/24 05:29 Hct 35.0 % (39.6-49.0) L 05/31/24 05:29 Plt Count 271 thou/uL (152-406) 05/31/24 05:29 PT 14.8 SECONDS (10.0-13.0) H 05/27/24 18:30 INR 1.32 05/27/24 18:30 Sodium 138 mEq/L (136-145) 05/31/24 05:29 Potassium 4.1 mEq/L (3.5-5.1) 05/31/24 05:29 BUN 23 mg/dL (7-18) H 05/31/24 05:29 Creatinine 6.02 mg/dL (0.70-1.30) H 05/31/24 05:29 Glucose 85 mg/dL (74-106) 05/31/24 05:29 Magnesium 2.1 mg/dL (1.6-2.4) 05/31/24 05:29 Total Bilirubin 0.4 mg/dL (0.2-1.0) 05/28/24 05:03 AST < 10 U/L (15-37) L 05/28/24 05:03 ALT < 14 U/L (16-61) L 05/28/24 05:03 Alkaline Phosphatase 115 U/L (45-117) 05/28/24 05:03 Triglycerides 61 mg/dL (<150) 05/28/24 05:03 Cholesterol 73 mg/dL (<200) 05/28/24 05:03 HDL Cholesterol 33 mg/dL (40-60) L 05/28/24 05:03 Cholesterol/HDL Ratio 2.21 05/28/24 05:03 Home Medications: Gabapentin 300 mg PO DAILY 11/15/19 Insulin Detemir [Levemir Flextouch] 33 units SQ BID 11/15/19 Calcitrol [Rocaltrol*] 0.5 mcg PO DAILY #60 cap 11/19/19 carvediloL [Coreg*] 25 mg PO BID #60 tab 11/19/19 Aspirin [Vazalore] 1 tab PO DAILY 12/25/20 Atorvastatin Calcium 1 tab PO BEDTIME 12/25/20 Trazodone [Desyrel*] 100 mg PO BEDTIME 12/25/20 Bupropion HCl [Budeprion Xl] 300 mg PO DAILY 11/17/23 Ferrous Gluconate 324 mg PO BID 11/17/23 Mecobalamin [B12 Active] 1,000 mcg PO DAILY 11/17/23 Epoetin [Procrit*] 10,000 unit IV EVERY HD vial 11/22/23 Losartan Potassium [Cozaar*] 50 mg PO BEDTIME #30 tab 11/22/23 Cyclobenzaprine [Flexeril*] 10 mg PO DAILY PRN 01/16/24 Sevelamer Carbonate [Renvela*] 800 mg PO TIDWM 01/16/24 Hydrocodone 10/APAP 325 [Mosca 10325*] 1 tab PO Q8HP PRN #20 tab 01/19/24 Aspirin [Aspirin EC 81 MG] 81 mg PO DAILY 30 Days #30 tab 05/31/24 Clopidogrel Bisulfate [Plavix] 75 mg PO DAILY 30 Days #30 tab 05/31/24 New Medications: Aspirin [Aspirin EC 81 MG] 81 mg PO DAILY 30 Days #30 tab Clopidogrel Bisulfate [Plavix] 75 mg PO DAILY 30 Days #30 tab Physician Discharge Instructions: Patient presented with worsening left foot pain. He was recently hospitalized for similar last month - diagnosed with sepsis and osteomyelitis of left foot at that time. Transferred to [facility] for IV access for IV antibiotics. He was discharged from [facility] with antibiotic plan of IV vancomycin with dialysis and oral levaquin (end date 06/13/24) There was no obvious worsening of infection / wounds. He did have increased swelling in his left lower extremity. Blood cultures without growth, and he remained afebrile and without leukocytosis. Increased pain was felt to be more from blood flow, swelling, and x-ray noted appearance of fracture in the 5th toe where he was previously diagnosed with osteomyelitis. General Surgery, Vascular, and ID were consulted. He underwent balloon angioplasty in his Left lower extremity with good success by Dr. Huerta. Started aspirin 81mg and Plavix daily. Dr. Quintero and Dr. Huerta discussed options with Mr. Koenig, and given the good result afer re-vascularization, the plan at this point is to allow some time for perfusion/recovery, see how the foot heals / demarcates prior to any further debridement/amputation in the near future. He will follow up with Dr. Quintero and Dr. Huerta. He has an appointment with Dr. Quintero tomorrow, and Dr. Huerta on 06/20/24 He will continue the antibiotic plan as noted when discharged from [facility] - Vancomycin with dialysis and oral levaquin. Continue home meds as previously prescribed. And new medications: Aspirin 81mg daily Plavix 75mg daily Followup: Zeke Russo DO [Primary Care Provider] - Keenan Quintero MD [ACTIVE - CAN ADMIT] - 06/01/24 Kacey Huerta MD [ACTIVE - CAN ADMIT] - 06/20/24 Time spent managing pt's care (in minutes): 45
== END 2024-05-31 11:41 | disposition home or self-care (01) | DRG 853 ==
LOC: ER 16:44 → ERHOLD 19:35 → 2ND 05-28 03:07
PROVIDERS: ADMIT Internal Medicine; ATTEND Hospitalist
PROC: 047S3ZZ Dilation of Left Posterior Tibial Artery, Percutaneous Approach (ICD-10-PCS; principal; 2024-05-28)
PROC: B41D1ZZ Fluoroscopy of Aorta and Bilateral Lower Extremity Arteries using Low Osmolar Contrast (ICD-10-PCS; 2024-05-28)
PROC: 5A1D70Z Performance of Urinary Filtration, Intermittent, Less than 6 Hours Per Day (ICD-10-PCS; 2024-05-28)
DX: A41.59 Other Gram-negative sepsis (principal); N18.6 End stage renal disease; L03.116 Cellulitis of left lower limb; Z68.41 Body mass index [BMI] 40.0-44.9, adult; M86.172 Other acute osteomyelitis, left ankle and foot; I50.32 Chronic diastolic (congestive) heart failure; I13.2 Hypertensive heart and chronic kidney disease with heart failure and with stage 5 chronic kidney disease, or end stage renal disease; N25.81 Secondary hyperparathyroidism of renal origin; E87.1 Hypo-osmolality and hyponatremia; E11.69 Type 2 diabetes mellitus with other specified complication; E11.42 Type 2 diabetes mellitus with diabetic polyneuropathy; E11.649 Type 2 diabetes mellitus with hypoglycemia without coma; E11.51 Type 2 diabetes mellitus with diabetic peripheral angiopathy without gangrene; E11.621 Type 2 diabetes mellitus with foot ulcer; L97.529 Non-pressure chronic ulcer of other part of left foot with unspecified severity; D63.1 Anemia in chronic kidney disease; E66.01 Morbid (severe) obesity due to excess calories; G47.33 Obstructive sleep apnea (adult) (pediatric); H54.8 Legal blindness, as defined in USA; E88.09 Other disorders of plasma-protein metabolism, not elsewhere classified; R79.89 Other specified abnormal findings of blood chemistry; Z79.4 Long term (current) use of insulin; Z99.2 Dependence on renal dialysis; Z79.02 Long term (current) use of antithrombotics/antiplatelets; Z79.899 Other long term (current) drug therapy
CPT/HCPCS: 36245; 36415; 37228; 71045; 76937; 80048; 80053; 80061; 80076; 80202; 82947; 83605; 83735; 83880; 84484; 85025; 85027; 85610; 86140; 87040; 87070; 87077; 87186; 87205; 90935; 93005; 93926; 93971; 96365; 96366; 96375; 99152; 99153; 99285; C1725; C1760; C1769; C1893; J0295; J0461; J0692; J1171; J1644; J2003; J2250; J2310; J2405; J2720; J3010; J7030; J7040; J7050

== ENCOUNTER 2024-06-11 08:48 | Emergency (ER) | payer MEDICARE ==
--- NOTE | 2024-06-11 10:07 | RAD REPORT ---
EXAMINATION: XR Ankle Left 3 View CLINICAL INDICATION: Male, 59 years old. left ankle deformity and pain, no known injury TECHNIQUE: 3 view radiographs of the left ankle were obtained. COMPARISON: No prior exam. FINDINGS: Lateral subluxation of the patellar dome with marked inversion of the foot. Osseous fragmen t which may relate to the medial malleolus is interposed just medial to the talus, with somewhat well corticated margins, may relate to sequelae of a remote fracture. Osseous destructive changes at the base of the fifth metatarsal with surrounding soft tissue irregularity. Some soft tissue gas may be present in this region as well. Vascular calcifications. Soft tissue swelling about the foot m ost pronounced laterally. IMPRESSION: Sequelae of remote appearing fracture of the medial malleolus with lateral subluxation of the ankle j oint and inversion as above. Osseous destructive changes at the base of the fifth metatarsal, may relate to ongoing osteomyelitis.
--- NOTE | 2024-06-11 10:09 | RAD REPORT ---
EXAMINATION: XR Foot Left 3 View CLINICAL INDICATION: Male, 59 years old. [facility] MAIN osteo with fracture 1 month ago, mild pain Bed Name: 17 TECHNIQUE: 3 view radiographs of the left foot were obtained. COMPARISON: No prior exam. FINDINGS: Lateral subluxation of the patellar dome with marked inversion of the foot. Osseous fragmen t which may relate to the medial malleolus is interposed just medial to the talus, with somewhat well corticated margins, may relate to sequelae of a remote fracture. Osseous destructive changes at the base of the fifth metatarsal with surrounding soft tissue irregularity. Large calcaneal spur. Osseous remodeling of the midfoot bones with more acute appearance of the talocalcaneal angle, may be projectional or reflect additional pes cavus deformity. Some soft tissue gas may be present in this region as well. Vascular calcifications. Soft tissue swelling about the foot most pronounced lat erally. IMPRESSION: Sequelae of remote appearing fracture of the medial malleolus with lateral subluxation of the ankle j oint and inversion as above. Osseous destructive changes at the base of the fifth metatarsal, may relate to ongoing osteomyelitis.
--- NOTE | 2024-06-11 11:13 | EDPHYS ---
Physician Documentation [facility] Name: Wild Koenig Age: 59 yrs Sex: Male : 1965 Arrival Date: 06/11/2024 Time: 08:48 Bed 17 Private MD: ED Physician Jani Carey HPI: 06/11 09:00 This 59 yrs old Male presents to ER via EMS with complaints of Ankle Swelling. rn 09:00 The patient presents with pain. The complaints affect the left ankle. Modifying rn factors: The symptoms are alleviated by nothing, the symptoms are aggravated by weight bearing. Severity of symptoms: At their worst the symptoms were mild, in the emergency department the symptoms are unchanged. The patient has experienced similar episodes in the past. Patient reports a couple weeks at least of left foot and ankle pain. Patient reports noticed that his foot is slowly turning inward and hurts to walk on it. Patient diagnosed with osteomyelitis in the last 3 months, completed 6 weeks of antibiotics and had surgical debridement of the wound. Wounds are healing well and healthy without drainage or signs of infection. Patient denies any injury. No falls. Patient reports here for pain.. Historical: - Allergies: 08:56 No Known Allergies; aa5 - PMHx: 08:53 Anxiety; chronic back pain; Congestive heart failure; Depression; Diabetes - IDDM; aa5 Dialysis (right upper arm fis); Hypertension; - PSHx: 08:53 right upper arm fistula; aa5 - Family history:: not pertinent. - Hospitalizations: : No recent hospitalization is reported. ROS: 09:00 Constitutional: Negative for fever, chills, and weight loss, MS/Extremity: Positive for rn left ankle and foot pain, denies injury Skin: No wound drainage Exam: 09:00 Constitutional: This is a well developed, well nourished patient who is awake, alert, rn and in no acute distress. Laying on his back, watching videos on his phone Cardiovascular: Regular rate and rhythm. No pulse deficits. MS/ Extremity: No cyanosis. Neurovascular intact. Left lateral foot wound and heel wound appear healthy and healing, no purulence or foul smell. No redness or warmth. No focal bony tenderness. There is inward deviation of the foot at the ankle with mild swelling at the lateral malleolus. Vital Signs: 08:53 BP 132 / 45; Pulse 75; Resp 16 S; Temp 98.5(O); Pulse Ox 97% on R/A; aa5 11:06 BP 131 / 50; Pulse 65; Resp 18 S; Pulse Ox 95% ; aa5 MDM: 08:53 Medical Screening Exam initiated rn 10:56 ED course: Patient has chronic subluxation of the left foot due to metatarsal fractures rn and medial malleolus fracture that seems healed just not correct alignment. Patient's case complicated by multiple wounds of the foot. Initial plan was to reduce but following introduction foot with sublux again likely secondary to medial malleolus deformity. After discussion with patient decision made to place in boot to aid subluxation and alignment and not splint given patient requires Tuesday and Tuesday wound care and would limit access to wounds. Urged patient to follow-up with orthopedics for further recommendation and management.. 11:11 Differential diagnosis: fracture, sprain, Dislocation, Charcot foot, chronic wounds. rn Data reviewed: vital signs, nurses notes, radiologic studies, plain films, and as a result, I will discharge patient. Counseling: I had a detailed discussion with the patient and/or guardian regarding the historical points, exam findings, and any diagnostic results supporting the discharge/admit diagnosis, radiology results, the need for outpatient follow up, to return to the emergency department if symptoms worsen or persist or if there are any questions or concerns that arise at home. Special discussion: I discussed with the patient/guardian in detail that at this point there is no indication for admission to the hospital. It is understood, however, that if the symptoms persist or worsen the patient needs to return immediately for re-evaluation. Based on the history and exam findings, there is no indication for further emergent testing or inpatient evaluation. I discussed with the patient/guardian the need to see the orthopedic surgeon for further evaluation of the symptoms. 06/11 08:53 Order name: XRAY Ankle LEFT 3 view; Complete Time: 10:12 rn 06/11 08:55 Order name: XRAY Foot LEFT 3 View; Complete Time: 10:12 rn 06/11 11:04 Order name: Wound Care; Complete Time: 11:04 aa5 06/11 11:04 Order name: Walking boot; Complete Time: : aa5 Administered Medications: No medications were administered Disposition Summary: 06/11/24 11:13 Discharge Ordered Notes: Location: Home rn Problem: an ongoing problem rn Symptoms: have improved rn Condition: Stable rn Diagnosis - Chronic/subacute left foot subluxation rn - Nondisplaced fracture of medial malleolus of left tibia, subsequent encounter for rn closed fracture with malunion Followup: rn - With: Private Physician - When: As needed - Reason: Recheck today's complaints, Re-evaluation by your physician Discharge Instructions: - Discharge Summary Sheet rn - Ankle Fracture rn - Wound Care, Adult rn - Closed Reduction for Ankle Fracture or Dislocation rn Forms: - Medication Reconciliation Form rn - 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
--- NOTE | 2024-06-11 11:13 | ER ---
Nurse's Notes [facility] Name: Wild Koenig Age: 59 yrs Sex: Male : 1965 Arrival Date: 06/11/2024 Time: 08:48 Bed 17 Private MD: Diagnosis: Chronic/subacute left foot subluxation;Nondisplaced fracture of medial malleolus of left tibia, subsequent encounter for closed fracture with malunion Presentation: 06/11 08:53 Chief complaint: Patient states: had wound debridement by Dr. Quintero to left foot aa5 months ago and this morning had weeping and bleeding to site, pt also c/o swelling to left ankle. 08:53 Method Of Arrival: [facility] aa5 08:53 Coronavirus screen: At this time, the client does not indicate any symptoms associated aa5 with coronavirus-19. Ebola Screen: Patient denies travel to an Ebola-affected area in the 21 days before illness onset. Initial Sepsis Screen: Does the patient meet any 2 criteria? No. Patient's initial sepsis screen is negative. Does the patient have a suspected source of infection? No. Patient's initial sepsis screen is negative. Risk Assessment: Do you want to hurt yourself or someone else? Patient reports no desire to harm self or others. Onset of symptoms was June 2024. 08:53 Acuity: MYNOR 3 aa5 Historical: - Allergies: 08:56 No Known Allergies; aa5 - PMHx: 08:53 Anxiety; chronic back pain; Congestive heart failure; Depression; Diabetes - IDDM; aa5 Dialysis (right upper arm fis); Hypertension; - PSHx: 08:53 right upper arm fistula; aa5 - Family history:: not pertinent. - Hospitalizations: : No recent hospitalization is reported. Screenin:53 [facility] ED Fall Risk Assessment (Adult) History of falling in the last 3 months, aa5 including since admission No falls in past 3 months (0 pts) Confusion or Disorientation No (0 pts) Intoxicated or Sedated No (0 pts) Impaired Gait Yes (1 pt) Mobility Assist Device Used Yes (1 pt) Altered Elimination Yes (1 pt) Score/Fall Risk Level 3 or more points = High Risk Oriented to surroundings, Maintained a safe environment, Educated pt \\T\\ family on fall prevention, incl call for assistance when getting out of bed, Assessed \\T\\ reinforced patient's understanding of fall precautions. Abuse screen: Denies threats or abuse. Nutritional screening: No deficits noted. Tuberculosis screening: No symptoms or risk factors identified. Assessment: 08:53 General: Appears comfortable, Behavior is calm, cooperative. Pain: Complains of pain in aa5 left foot and left ankle Pain currently is 3 out of 10 on a pain scale. Quality of pain is described as aching, Pain began "months ago" Is continuous. Neuro: Level of Consciousness is awake, alert, obeys commands, Oriented to person, place, time, situation. Cardiovascular: Patient's skin is warm and dry. Dialysis shunt: in the right arm, with palpable thrill, with auscultated bruit, with no erythema, with no edema, no bleeding noted. Respiratory: Airway is patent Respiratory effort is even, unlabored, Respiratory pattern is regular, symmetrical. GI: No signs and/or symptoms were reported involving the gastrointestinal system. : No signs and/or symptoms were reported regarding the genitourinary system. EENT: No signs and/or symptoms were reported regarding the EENT system. Derm: Skin is pink, warm \\T\\ dry. Wound noted to left lateral aspect of foot, wound bed with granulation noted, no s/s of infection noted. Wound to left heel noted, wound bed with granulation noted, no s/s of infection noted. Dressing with clear weeping noted, no drainage currently noted to wounds. Musculoskeletal: Range of motion: limited in left ankle Left foot internally/medially rotated, pt states "my foot has been like that for about a week" Swelling present in left lateral ankle and left medial ankle. 11:04 Reassessment: Wounds to left foot cleaned with saline and gauze, dressed with Xeroform aa5 gauze, gauze, and Kerlix, pt tolerated well. VO for wound care received from Dr. Carey . 11:45 Reassessment: Patient is alert, oriented x 3, equal unlabored respirations, skin aa5 warm/dry/pink. Pt attempting using his phone, states attempting to find ride home. . 12:30 Reassessment: Pt sleeping. . aa5 Vital Signs: 08:53 BP 132 / 45; Pulse 75; Resp 16 S; Temp 98.5(O); Pulse Ox 97% on R/A; aa5 11:06 BP 131 / 50; Pulse 65; Resp 18 S; Pulse Ox 95% ; aa5 ED Course: 08:53 Patient arrived in ED. rn 08:53 Lucila Haddad, RN is Primary Nurse. aa5 08:53 Jani Carey MD is Attending Physician. rn 08:53 Arm band placed on Patient placed in an exam room, on a stretcher. aa5 08:53 Patient has correct armband on for positive identification. Bed in low position. Call aa5 light in reach. Side rails up X2. Pulse ox on. NIBP on. 08:57 Triage completed. aa5 09:13 XRAY Ankle LEFT 3 view In Process Unspecified. EDMS 09:13 XRAY Foot LEFT 3 View In Process Unspecified. EDMS 11:05 Walking boot applied to left foot per MD. aa5 13:52 No provider procedures requiring assistance completed. Patient did not have IV access ss during this emergency room visit. Administered Medications: No medications were administered Medication: 09:16 VIS not applicable for this client. aa5 Outcome: 11:13 Discharge ordered by MD. rn 13:52 Discharged to home via wheelchair, with friend, ss 13:52 Condition: good 13:52 Discharge instructions given to patient, Instructed on discharge instructions, follow up and referral plans. Demonstrated understanding of instructions, follow-up care, 13:52 Patient left the ED. ss Signatures: Dispatcher [employer] EDUT Jani Carey MD MD rn Calderon, Audri, RN RN aa5 Shakila Landis RN RN ss Corrections: (The following items were deleted from the chart) 11:06 11:04 Reassessment: Wounds to left foot cleaned with saline and gauze, dressed with aa5 Xeroform gauze, gauze, and Kerlix, pt tolerated well.. aa5
[2024-06-11 14:34] VITALS: TEMP 98.5
[2024-06-11 14:35] VITALS: BP 131/50; O2SAT 95
== END 2024-06-11 13:52 | disposition home or self-care (01) ==
LOC: ER 08:48
DX: S93.332A Other subluxation of left foot, initial encounter (principal); S82 Fracture of lower leg, including ankle
CPT/HCPCS: 99284

== ENCOUNTER 2024-07-22 14:29 | Emergency (ER) | payer MEDICARE ==
[2024-07-22] MEDS ORDERED: NA CHLORIDE 0.9% 500 ML ONE (15:09)
[2024-07-22] MEDS ORDERED: CEFAZOLIN SODIUM 1 GM/VIAL ONE (15:09)
[2024-07-22] MEDS ORDERED: NA CHLORIDE 0.9% 50 ML ONE (15:10)
[2024-07-22 15:53] LABS: Absolute Eosinophils 0.5 K/uL (0-0.5); Absolute Lymphocytes (CBC) 1.1 K/uL (0.7-4.9); Absolute Monocytes 0.6 K/uL (0.1-1.3); Absolute Neutrophil 7.8 K/uL (1.8-8.0); Basophils % 0.4 % (0-1.3); Eosinophils % 5.3 % (0-4.4); Hematocrit 32.1 % (39.6-49.0); Hemoglobin 10.2 g/dL (13.6-17.9); Lymphocytes % 11.1 % (15.3-44.8); MCH 28.5 pg (27.0-35.0); MCHC 31.8 g/dL (32.0-36.0); MCV 89.4 fL (80-100); MPV 7.1 fL (7.6-11.3); Monocytes % 6.1 % (3.3-12.3); Neutrophils % 77.1 % (41.7-73.7); Nucleated Red Blood Cells % 0.1 % (0-0); Platelets 271 thou/uL (152-406); RBC Red Blood Cell Count 3.59 M/uL (4.33-5.43)
[2024-07-22 16:48] LABS: ALT/SGPT 16 U/L (16-61); Albumin 2.8 g/dL (3.4-5.0); Albumin/Globulin Ratio 0.7 (1.1-1.8); Alkaline Phosphatase 136 U/L (45-117); Anion Gap 12.8 mEq/L (5.0-15.0); BUN Blood Urea Nitrogen 49 mg/dL (7-18); Bicarbonate 23 mEq/L (21-32); Bilirubin Total 0.3 mg/dL (0.2-1.0); Globulin 4.2 g/dL (2.3-3.5); Glomerular Filtration Rate 7 ml/min (=/>90); Glucose Level 99 mg/dL (74-106); Potassium 5.8 mEq/L (3.5-5.1); Sodium Level 134 mEq/L (136-145)
[2024-07-22 16:49] LABS: AST/SGOT < 10 U/L (15-37)
--- NOTE | 2024-07-22 17:11 | EDPHYS ---
Physician Documentation [facility] Name: Wild Koenig Age: 59 yrs Sex: Male : 1965 Arrival Date: 07/22/2024 Time: 14:29 Bed 4 Private MD: ED Physician James Severino HPI: 07/22 16:55 This 59 yrs old Male presents to ER via EMS with complaints of Fall Injury. bernice 16:55 Details of fall: The patient fell from an upright position, while standing. Onset: The bernice symptoms/episode began/occurred just prior to arrival. Associated injuries: The patient sustained contusion, decreased range of motion, laceration, painful injury, swelling. Severity of symptoms: At their worst the symptoms were moderate, in the emergency department the symptoms are unchanged. The patient has not experienced similar symptoms in the past. Historical: - Allergies: 14:42 No Known Allergies; jl7 - PMHx: 14:42 Anxiety; chronic back pain; Congestive heart failure; Depression; Diabetes - IDDM; jl7 Dialysis (right upper arm fis); Hypertension; - PSHx: 14:42 right upper arm fistula; jl7 - Immunization history:: Adult Immunizations unknown. - Infectious Disease History:: Denies. - Social history:: Smoking status: unknown. ROS: 16:57 Constitutional: Negative for fever, chills, and weight loss, Eyes: Negative for injury, bernice pain, redness, and discharge, ENT: Negative for injury, pain, and discharge, Neck: Negative for injury, pain, and swelling, Cardiovascular: Negative for chest pain, palpitations, and edema, Respiratory: Negative for shortness of breath, cough, wheezing, and pleuritic chest pain, Abdomen/GI: Negative for abdominal pain, nausea, vomiting, diarrhea, and constipation, Back: Negative for injury and pain, : Negative for injury, bleeding, discharge, and swelling, Neuro: Negative for headache, weakness, numbness, tingling, and seizure, Psych: Negative for depression, anxiety, suicide ideation, homicidal ideation, and hallucinations, Allergy/Immunology: Negative for hives, rash, and allergies, Endocrine: Negative for neck swelling, polydipsia, polyuria, polyphagia, and marked weight changes, Hematologic/Lymphatic: Negative for swollen nodes, abnormal bleeding, and unusual bruising, 16:57 MS/extremity: Positive for decreased range of motion, erythema, laceration, pain, swelling, tenderness, of the left calf, medial aspect of left calf and left garcia, 16:57 Skin: Positive for rash, swelling, Exam: 16:57 Constitutional: This is a well developed, well nourished patient who is awake, alert, bernice and in no acute distress. Head/Face: Normocephalic, atraumatic. Eyes: Pupils equal round and reactive to light, extra-ocular motions intact. Lids and lashes normal. Conjunctiva and sclera are non-icteric and not injected. Cornea within normal limits. Periorbital areas with no swelling, redness, or edema. ENT: Nares patent. No nasal discharge, no septal abnormalities noted. Tympanic membranes are normal and external auditory canals are clear. Oropharynx with no redness, swelling, or masses, exudates, or evidence of obstruction, uvula midline. Mucous membranes moist. Neck: Trachea midline, no thyromegaly or masses palpated, and no cervical lymphadenopathy. Supple, full range of motion without nuchal rigidity, or vertebral point tenderness. No Meningismus. Chest/axilla: Normal chest wall appearance and motion. Nontender with no deformity. No lesions are appreciated. Cardiovascular: Regular rate and rhythm with a normal S1 and S2. No gallops, murmurs, or rubs. Normal PMI, no JVD. No pulse deficits. Respiratory: Lungs have equal breath sounds bilaterally, clear to auscultation and percussion. No rales, rhonchi or wheezes noted. No increased work of breathing, no retractions or nasal flaring. Abdomen/GI: Soft, non-tender, with normal bowel sounds. No distension or tympany. No guarding or rebound. No evidence of tenderness throughout. Back: No spinal tenderness. No costovertebral tenderness. Full range of motion. Neuro: Awake and alert, GCS 15, oriented to person, place, time, and situation. Cranial nerves II-XII grossly intact. Motor strength 5/5 in all extremities. Sensory grossly intact. Cerebellar exam normal. Normal gait. Psych: Awake, alert, with orientation to person, place and time. Behavior, mood, and affect are within normal limits. 16:57 Skin: abscess, not appreciated, cellulitis, that is minimal, induration, that is moderate is noted, injury, laceration(s), the wound is approximately 3.5 cm(s), with a depth of .5 cm(s), of the lateral aspect of left calf, left calf, medial aspect of left calf and left garcia, Vital Signs: 14:38 BP 104 / 73; Pulse 80; Resp 15; Temp 97; Pulse Ox 95% ; jl7 17:55 BP 140 / 67; Pulse 69; Resp 15; Pulse Ox 93% ; jl7 21:09 BP 132 / 62; Pulse 74; Resp 16; Pulse Ox 99% on R/A; kd3 MDM: 14:37 Medical Screening Exam initiated bernice 17:00 Differential diagnosis: closed fracture, contusion, abrasion, tendonitis. Differential berncie diagnosis: contusion, fracture, laceration, multiple trauma, sprain, strain. Data reviewed: vital signs, nurses notes, EMS record, lab test result(s), radiologic studies, plain films. Consideration of Admission/Observation Escalation of care including admission/observation considered. I considered the following discharge prescriptions or medication management in the emergency department Medications were administered in the Emergency Department. See MAR. Independent interpretation of the following test(s) in the Emergency Department X-Ray: My interpretation is LEFT STUMP. Test considered but Not performed: CT: NO CT STUMP. Historians other than the Patient: EMS: EMS WELL INFORMED. Care significantly affected by the following chronic conditions: Diabetes, Hypertension, Congestive Heart Failure, Obesity, Chronic Kidney Disease. Counseling: I had a detailed discussion with the patient and/or guardian regarding the historical points, exam findings, and any diagnostic results supporting the discharge/admit diagnosis, lab results, radiology results, the need to transfer to another facility, for higher level of care, [facility] does not immediately have the required specialist. 07/22 14:58 Order name: CBC with Diff [facility] 07/22 14:58 Order name: Comprehensive Metabolic Panel; Complete Time: 16:50 [facility] 07/22 18:28 Order name: CBC Smear Scan EDMS 07/22 15:58 Order name: Tib Fib Left XRAY [facility] 07/22 14:58 Order name: IV Saline Lock; Complete Time: 15:58 [facility] 07/22 14:58 Order name: Wound dressing: WET TO DRY; Complete Time: 19:56 [facility] 07/22 14:58 Order name: Ahi wrap-joint; Complete Time: 19:55 bernice Administered Medications: 15:41 Drug: NS 0.9% IV 500 ml 500 ml IV at 1 bolus once; to be given as a bolus over 30 jb4 minutes Volume: 500 ml; Route: IV; Rate: 1 bolus; Site: left antecubital; 16:15 Follow up: Response: No adverse reaction; IV Status: Completed infusion; IV Intake: jl7 500ml 15:41 Drug: ceFAZolin IVPB 1 grams IVPB once Route: IVPB; Site: left antecubital; jb4 16:11 Follow up: Response: No adverse reaction; IV Status: Completed infusion jl7 16:52 CANCELLED (Duplicate Order): piperacillin-tazobactam3.375 grams IVPB once over 60 mins; bernice (mix in NS 100 mL) 17:54 Drug: vancoMYCIN IVPB 1 grams IVPB once over 2 hrs Route: IVPB; Infused Over: 2 hrs; jl7 Site: right upper arm; 19:54 Follow up: Response: No adverse reaction; IV Status: Completed infusion jl7 17:54 Drug: Boostrix Tdap IM 0.5 ml IM once; as a single dose Route: IM; Site: right deltoid; jl7 18:32 Follow up: Response: No adverse reaction jl7 21:06 Not Given (Patient Refused): [id number] grams PO once kd3 Disposition Summary: 07/22/24 17:11 Transfer Ordered Notes: Transfer Location: [facility] bernice Reason: Higher level of care bernice Condition: Fair bernice Problem: new bernice Symptoms: have improved bernice Accepting Physician: DR TAISHA BLUM(07/22/24 21:09) kd3 Diagnosis - Dependence on renal dialysis bernice - Fall on same level, unspecified bernice - Laceration without foreign body, left lower leg - STUMP, WOUND OPEN bernice - Disruption of external operation (surgical) wound, not elsewhere classified - LEFT bernice STUMP - Hyperkalemia bernice Forms: - Medication Reconciliation Form bernice - SBAR form bernice Signatures: Dispatcher [employer] James Martin MD MD cha Bryson, James RN RN jb4 Malu Villa RN RN jl7 Sophia Forte RN RN kd3 Corrections: (The following items were deleted from the chart) 16:52 16:52 Piperacillin-Tazobactam IVPB 3.375 grams IVPB once over 60 mins; (mix in NS 100 bernice mL) ordered. [facility] : 17:11 DR TAISHA BLUM cha [facility] 17:12 DR TAISHA BLUM cha kd3
--- NOTE | 2024-07-22 17:11 | ER ---
Nurse's Notes [facility] Name: Wild oKenig Age: 59 yrs Sex: Male : 1965 Arrival Date: 07/22/2024 Time: 14:29 Bed 4 Private MD: Diagnosis: Dependence on renal dialysis;Fall on same level, unspecified;Laceration without foreign body, left lower leg-STUMP, WOUND OPEN;Disruption of external operation (surgical) wound, not elsewhere classified-LEFT STUMP;Hyperkalemia Presentation: 07/22 14:38 Chief complaint: EMS states: Toned out for mechanical fall, pt attempting to transfer jl7 self from wheelchair to car and fell. Recent left BKA, incision dehisced on fall, bleeding controlled. Coronavirus screen: At this time, the client does not indicate any symptoms associated with coronavirus-19. Ebola Screen: No symptoms or risks identified at this time. Initial Sepsis Screen: Does the patient meet any 2 criteria? No. Patient's initial sepsis screen is negative. Does the patient have a suspected source of infection? No. Patient's initial sepsis screen is negative. Risk Assessment: Do you want to hurt yourself or someone else? Patient reports no desire to harm self or others. Onset of symptoms was July 22, 2024. 14:38 Method Of Arrival: EMS: [facility] 14:38 Acuity: MYNOR 3 jl7 14:38 Care prior to arrival: Bleeding of injury controlled. jl7 Triage Assessment: 14:42 General: Appears in no apparent distress. uncomfortable, Behavior is calm, cooperative, jl7 appropriate for age. Pain: Complains of pain in left bka. Historical: - Allergies: 14:42 No Known Allergies; jl7 - PMHx: 14:42 Anxiety; chronic back pain; Congestive heart failure; Depression; Diabetes - IDDM; jl7 Dialysis (right upper arm fis); Hypertension; - PSHx: 14:42 right upper arm fistula; jl7 - Immunization history:: Adult Immunizations unknown. - Infectious Disease History:: Denies. - Social history:: Smoking status: unknown. Screenin:06 [facility] ED Fall Risk Assessment (Adult) History of falling in the last 3 months, kd3 including since admission Yes- single mechanical fall (1 pt) Confusion or Disorientation No (0 pts) Intoxicated or Sedated No (0 pts) Impaired Gait No (0 pts) Mobility Assist Device Used No (0 pt) Altered Elimination No (0 pt) Score/Fall Risk Level 0 - 2 = Low Risk Oriented to surroundings. Abuse screen: Denies threats or abuse. Denies injuries from another. Nutritional screening: No deficits noted. Tuberculosis screening: No symptoms or risk factors identified. Assessment: 14:45 General: Appears in no apparent distress. uncomfortable, Behavior is calm, cooperative, jl7 appropriate for age. Pain: Complains of pain in left leg. Neuro: Level of Consciousness is awake, alert, obeys commands, Oriented to person, place, time, situation. Cardiovascular: Patient's skin is warm and dry. Respiratory: Airway is patent Respiratory effort is even, unlabored, Respiratory pattern is regular, symmetrical. Derm: Skin is pink, warm \T\ dry. 16:00 Reassessment: Patient appears in no apparent distress at this time. No changes from jl7 previously documented assessment. Patient and/or family updated on plan of care and expected duration. Pain level reassessed. Patient is alert, oriented x 3, equal unlabored respirations, skin warm/dry/pink. 17:00 Reassessment: Patient appears in no apparent distress at this time. No changes from jl7 previously documented assessment. Patient and/or family updated on plan of care and expected duration. Pain level reassessed. Patient is alert, oriented x 3, equal unlabored respirations, skin warm/dry/pink. 18:00 Reassessment: Patient appears in no apparent distress at this time. No changes from jl7 previously documented assessment. Patient and/or family updated on plan of care and expected duration. Pain level reassessed. Patient is alert, oriented x 3, equal unlabored respirations, skin warm/dry/pink. 21:07 General: Pt report given to transport. Pt refuse Kayexalate . Neuro: Level of kd3 Consciousness is awake, alert, obeys commands, Oriented to person, place, time, situation. Vital Signs: 14:38 BP 104 / 73; Pulse 80; Resp 15; Temp 97; Pulse Ox 95% ; jl7 17:55 BP 140 / 67; Pulse 69; Resp 15; Pulse Ox 93% ; jl7 21:09 BP 132 / 62; Pulse 74; Resp 16; Pulse Ox 99% on R/A; kd3 ED Course: 14:31 Patient arrived in ED. ll1 14:37 James Severino MD is Attending Physician. bernice 14:38 Malu Villa, RN is Primary Nurse. jl7 14:41 Triage completed. jl7 14:42 Arm band placed on right wrist. jl7 15:30 Initial lab(s) drawn, by me, sent to lab. Inserted saline lock: 24 gauge in left upper jl7 arm, using aseptic technique. Blood collected. Flushed with 10 mL NS. 17:56 Tib Fib Left XRAY In Process Unspecified. EDMS 19:[address] Severino started transfer to [facility] talked to Regal. 1702 Dr. Bhupinder Bowen sp accepted pt 1702 admin Kailey uLo accepted to [facility] 9b [id number] Su Longy report [phone]. called [facility] talked to Anai. 21:08 Provided Education on: transfer . kd3 21:08 No provider procedures requiring assistance completed. Patient admitted, IV remains in kd3 place. 21:09 Patient has correct armband on for positive identification. kd3 Administered Medications: 15:41 Drug: NS 0.9% IV 500 ml 500 ml IV at 1 bolus once; to be given as a bolus over 30 jb4 minutes Volume: 500 ml; Route: IV; Rate: 1 bolus; Site: left antecubital; 16:15 Follow up: Response: No adverse reaction; IV Status: Completed infusion; IV Intake: jl7 500ml 15:41 Drug: ceFAZolin IVPB 1 grams IVPB once Route: IVPB; Site: left antecubital; jb4 16:11 Follow up: Response: No adverse reaction; IV Status: Completed infusion jl7 16:52 CANCELLED (Duplicate Order): piperacillin-tazobactam3.375 grams IVPB once over 60 mins; bernice (mix in NS 100 mL) 17:54 Drug: vancoMYCIN IVPB 1 grams IVPB once over 2 hrs Route: IVPB; Infused Over: 2 hrs; jl7 Site: right upper arm; 19:54 Follow up: Response: No adverse reaction; IV Status: Completed infusion jl7 17:54 Drug: Boostrix Tdap IM 0.5 ml IM once; as a single dose Route: IM; Site: right deltoid; jl7 18:32 Follow up: Response: No adverse reaction jl7 21:06 Not Given (Patient Refused): [id number] grams PO once kd3 Medication: 18:00 Vaccine Information Statement (VIS) provided today. Questions and/or concerns jl7 addressed. VIS edition date: November 07, 2020. Intake: 16:15 IV: 500ml; Total: 500ml. jl7 Outcome: 17:11 ER care complete, transfer ordered by MD. queen 21:08 Transferred by ground EMS kd3 21:08 Condition: stable 21:08 Discharge instructions given to patient, Instructed on the need for transfer, 21:09 Patient left the ED. kd3 Signatures: Dispatcher [employer] EDMS James Severino MD MD cha Pinkerton, Shawna sp Bryson, James, RN RN jb4 Malu Villa RN RN jl7 Micheal Paul RN RN ll1 Sophia Forte RN RN kd3 Corrections: (The following items were deleted from the chart) 19:27 18:15 Response: No adverse reaction; IV Status: Completed infusion jl7 jl7
[2024-07-22] MEDS ORDERED: VANCOMYCIN 1 GM/VIAL ONE (17:31)
[2024-07-22] MEDS ORDERED: NA CHLORIDE 0.9% 250 ML ONE (17:32)
[2024-07-22] MEDS ORDERED: TDAP (DIPHTH,PERTUSS(ACELL),TET VAC) 0.5 ML VIAL IMVAC ONE (17:32)
--- NOTE | 2024-07-22 18:11 | RAD REPORT ---
EXAMINATION: Tib Fib Left CLINICAL INDICATION: Leg pain FINDINGS: Below the knee amputation. Soft tissue swelling. No fracture or dislocation seen.
[2024-07-22 18:28] LABS: Anisocytosis 2+; Blood Morphology Comment NOTED (NOT SEEN); Platelet Estimate ADEQ; Platelets, Giant PRESENT; White Blood Cell Scan OK (OK)
--- NOTE | 2024-07-22 19:43 | CON ---
Date of Consultation: 07/22/2024 Diagnosis: Status post a dehiscence after trauma to his left below-knee amputation. History Of Present Illness: This is a case of a 59-year-old patient who approximately 2 weeks ago pickett d a below-knee amputation on the left side by [facility] system doctors. He was doing great. Today, he wa s getting out of his friend's truck and he hit the [employer] side bar rail, he called it, and then unfor tunately just injured the amputation site. He was brought to the ER and found to have a partial dehi scence in the left stump region, carroll out, open wound. Allergies: NONE. Past Medical History: Anxiety, congestive heart failure, depression, diabetes, end-stage renal disea se, on hemodialysis, hypertension. Past Surgical History: Include obviously the below-knee amputation and the right arm fistula. Social History: He does not smoke. He does not drink alcohol. Family History: Diabetes. Review of Systems: No shortness of breath. No chest pain. He did not pass out. He said he just hit that rail. No obi sea. No vomiting. He said he did not fall. He just hit that rail. Review of systems 10 points oth erwise unremarkable. Physical Examination: Vital Signs: Reviewed. General: The patient is awake and alert. No distress. HEENT: Pupils are equal and reactive and anicteric. Chest: Clear. Abdomen: Soft and depressible. Extremities: The below-knee amputation shows a partial dehiscence of the wound anteriorly. It is ab out 2 inches. The carroll completely ripped off and they were sort of already removed. No bone or t endon was exposed. The muscle is still intact, it is superficial, just the skin, but he has been out for several hours and it looks like since there was no bleeding we can just treat it conservatively. Laboratory Data: Blood work shows WBC count of 10, hemoglobin of 10.2, and potassium is 5.8. Recommendations: The ER physician discussed with doctors in [facility] and they are going to take the tod ent back. They still need him to give him dialysis. They are also going to take a look at the wound and treat it. He is [facility] or my office. In the meantime , we can use wet-to-dry until he gets that transfer. HM/MODL Voice ID: [id number] Report ID: [id number]
[2024-07-22] MEDS ORDERED: SOD POLYSTYREN SUL 15 GM/60 ML UCUP ONE (21:02)
[2024-07-22 21:33] VITALS: TEMP 97
[2024-07-22 21:35] VITALS: BP 132/62; O2SAT 99
== END 2024-07-22 21:09 | disposition short-term general hospital (02) ==
LOC: ER 14:29
DX: T87.81 Dehiscence of amputation stump (principal); S81.812A Laceration without foreign body, left lower leg, initial encounter; W18.30XA Fall on same level, unspecified, initial encounter; E87.5 Hyperkalemia; Z99.2 Dependence on renal dialysis; Z23 Encounter for immunization
CPT/HCPCS: 85025; 36415; 80053; 73590; 90715; 96372; 99285; J3370; J7050; J7040; J0690